=== PATIENT | female | born 1950 | race Caucasian/White ===

== ENCOUNTER 2019-09-13 16:39 | Emergency (ER) | payer OTHER, BC ==
[2019-09-13] MEDS ORDERED: LEVALBUTEROL 1.25 MG/3 ML NEB ONE (18:42)
[2019-09-13 18:43] LABS: Absolute Lymphocytes (CBC) 1.3 K/uL (0.7-4.9); Basophils % 0.8 % (0-1.3); Hematocrit 24.2 % (36.0-45.0); Lymphocytes % 30.8 % (15.3-44.8); MPV 9.6 fL (7.6-11.3)
[2019-09-13 18:44] LABS: Protime INR 1.19
--- NOTE | 2019-09-13 18:48 | RAD REPORT ---
EXAM DESCRIPTION: RAD - Chest Single View - 09/13/2019 6:43 pm CLINICAL HISTORY: COUGH Chest pain. COMPARISON: Chest Pa And Lat (2 Views) dated 10/15/2018; CHEST SINGLE VIEW dated 08/15/2010 FINDINGS: Portable technique limits examination quality. The lungs are grossly clear. The heart is normal in size. No displaced fractures. IMPRESSION: No acute intrathoracic process suspected.
[2019-09-13 18:59] LABS: ALT/SGPT 22 U/L (12-78); AST/SGOT 31 U/L (15-37); Albumin 2.9 g/dL (3.4-5.0); Alkaline Phosphatase 94 U/L (45-117); BUN Blood Urea Nitrogen 20 mg/dL (7-18); Bicarbonate 25 mmol/L (21-32); Bilirubin Direct 0.2 mg/dL (0-0.2); Bilirubin Total 0.6 mg/dL (0.2-1.0); Glucose Level 256 mg/dL (74-106); Magnesium 1.7 mg/dL (1.8-2.4); NT PRO-BNP 260 pg/mL (<125); Potassium 3.8 mmol/L (3.5-5.1); Protein, Total 6.9 g/dL (6.4-8.2); Sodium Level 138 mmol/L (136-145); Troponin (Emerg Dept Use Only) < 0.02 ng/mL (0.0-0.045)
[2019-09-13 19:13] LABS: Blood Morphology Comment NOTED (NOT SEEN); Hypochromasia 2+; Platelet Estimate DECR; Platelets, Giant PRESENT; Urine White Blood Cell Casts OK
--- NOTE | 2019-09-13 19:29 | RAD REPORT ---
EXAM DESCRIPTION: US - Extrem Venous W Compress Jez - 09/13/2019 7:18 pm CLINICAL HISTORY: bilateral leg swelling and pain Bilateral leg edema and swelling. COMPARISON: No comparisons TECHNIQUE: Real-time sonographic interrogation of the left and right lower extremity deep venous sys tems was performed. FINDINGS: Normal compressibility, flow augmentation, phasic flow and spontaneous flow is identified in both the left and right lower extremity deep venous systems. IMPRESSION: No sonographic evidence of left or right lower extremity deep venous thrombosis.
--- NOTE | 2019-09-13 20:09 | RAD REPORT ---
EXAM DESCRIPTION: CT - Chest For Pe Angio - 09/13/2019 8:00 pm CLINICAL HISTORY: Chest pain. SOB COMPARISON: No comparisons TECHNIQUE: CT angiogram of the pulmonary arteries was performed with MIP. All CT scans are performed using dose optimization technique as appropriate and may include automated exposure control or mA/KV adjustment according to patient size. FINDINGS: No evidence of pulmonary thromboembolism. No acute aortic finding demonstrated. Mild dependent interstitial pulmonary edema. Small bilateral pleural effusions. No concerning bony finding. Liver cirrhosis and mild ascites in the upper abdomen noted. IMPRESSION: No evidence of pulmonary thromboembolism. Minimal dependent pulmonary edema with small pleural effusions.
--- NOTE | 2019-09-13 20:27 | RAD REPORT ---
EXAM DESCRIPTION: CT - Abdomen Pelvis Wo Contrast - 09/13/2019 8:14 pm CLINICAL HISTORY: Abdominal pain. ABD PAIN COMPARISON: No comparisons TECHNIQUE: CT imaging of the abdomen and pelvis was performed without contrast. Solid organ, bowel a nd vascular assessment is limited due to lack of IV and oral contrast. All CT scans are performed using dose optimization technique as appropriate and may include automated exposure control or mA/KV adjustment according to patient size. FINDINGS: Small bilateral pleural effusions is seen. Mild liver cirrhosis is present with mild splenomegaly. Portal venous hypertension is seen. Mild asci baron noted.No bowel obstruction or free air. The spleen is mildly prominent. The pancreas, adrenal glands and kidneys are within normal limits. T he appendix is normal. Lumbosacral degenerative changes are present. IMPRESSION: Liver cirrhosis is present with portal hypertension and mild ascites. A limited non-contrast examination was performed as detailed.
--- NOTE | 2019-09-13 21:14 | ER ---
Nurse's Notes [facility] Name: Rena Burch Age: 68 yrs Sex: Female : 1950 Arrival Date: 09/13/2019 Time: 16:43 Bed 27 Private MD: Diagnosis: shortness of breath;cough;cirrhosis with portal venous hypertension;pulmonary edema;lower extremity edema;bilateral pleural effusions Presentation: 09/13 16:43 Presenting complaint: Patient states: abd pain, BLE swelling, productive cough, dyspnea sv x a week. Transition of care: patient was not received from another setting of care. Onset of symptoms was August 2019. Risk Assessment: Do you want to hurt yourself or someone else? Patient reports no desire to harm self or others. Care prior to arrival: None. 16:43 Method Of Arrival: Wheelchair sv 16:43 Acuity: CHEIKH 3 sv 17:00 Initial Sepsis Screen: Does the patient meet any 2 criteria? No. Patient's initial tr5 sepsis screen is negative. Does the patient have a suspected source of infection? No. Patient's initial sepsis screen is negative. Triage Assessment: 16:43 General: Appears in no apparent distress. uncomfortable, Behavior is calm, cooperative, sv appropriate for age. Pain: Complains of pain in abdomen. Neuro: Level of Consciousness is awake, alert, obeys commands. Respiratory: Respiratory effort is even, unlabored, Respiratory pattern is regular, symmetrical, Onset: The symptoms/episode began/occurred at an unknown time. 17:00 Respiratory: the patient has mild shortness of breath. tr5 Historical: - Allergies: 16:47 No Known Allergies; sv - Home Meds: 22:14 metoprolol ta-hydrochlorothiaz 100-50 mg oral tab [Active]; amlodipine 5 mg tab tr5 [Active]; omeprazole 40 mg Oral cpDR [Active]; montelukast 10 mg oral tab [Active]; lisinopril 20 mg Oral tab [Active]; hydrochlorothiazide 12.5 mg Oral tab [Active]; Janumet 50-500 mg oral tab [Active]; Insulin: Novolin R Sub-Q [Active]; cosentyx [Active]; - PMHx: 16:47 Diabetes - IDDM; Hypertension; Psoriatic arthritis; COPD; sv - PSHx: 16:47 double mastectomy; right wrist; right ankle; Hysterectomy; sv - Immunization history:: Flu vaccine is not up to date. - Social history:: Smoking status: Patient/guardian denies using tobacco. - Ebola Screening: : No symptoms or risks identified at this time. - Family history:: not pertinent. - Hospitalizations: : No recent hospitalization is reported. Screenin:30 Abuse screen: Denies threats or abuse. Nutritional screening: No deficits noted. tr5 Tuberculosis screening: No symptoms or risk factors identified. Fall Risk None identified. Assessment: 18:30 General: Appears in no apparent distress. Behavior is calm, cooperative, appropriate tr5 for age. Pain: Denies pain. Neuro: Level of Consciousness is awake, alert, obeys commands, Oriented to person, place, time, Fumigator And Sterilizer are equal bilaterally Moves all extremities. Cardiovascular: Heart tones present Capillary refill < 3 seconds Pulses are all present. Edema pitting to left ankle, left foot, left toes, right ankle, right foot and right toes Ascites Rhythm is regular. Respiratory: Reports shortness of breath cough that is Airway is patent Respiratory effort is even, unlabored, Respiratory pattern is regular, symmetrical, Breath sounds are diminished bilaterally. GI: Abdomen is noted to have ascites. : No signs and/or symptoms were reported regarding the genitourinary system. EENT: No signs and/or symptoms were reported regarding the EENT system. Derm: No signs and/or symptoms reported regarding the dermatologic system. Musculoskeletal: No signs and/or symptoms reported regarding the musculoskeletal system. 19:01 Reassessment: Dr. jaffe notified of critical lab value, Hgb 7.3. ss 20:00 Reassessment: Patient appears in no apparent distress at this time. Patient and/or tr5 family updated on plan of care and expected duration. Pain level reassessed. Patient is alert, oriented x 3, equal unlabored respirations, skin warm/dry/pink. Vital Signs: 16:47 BP 142 / 50; Pulse 70; Resp 20; Temp 98.4; Pulse Ox 99% ; Weight 95.25 kg; Height 5 ft. sv 5 in. (165.10 cm); 18:30 BP 162 / 54; Pulse 79; Resp 16; Pulse Ox 100% on R/A; tr5 19:30 BP 174 / 69; Pulse 87; Resp 16; Pulse Ox 99% on R/A; tr5 20:30 BP 181 / 65; Pulse 88; Resp 16; Pulse Ox 100% on R/A; tr5 16:47 Body Mass Index 34.95 (95.25 kg, 165.10 cm) sv ED Course: 16:43 Patient arrived in ED. sv 16:43 Arm band placed on. sv 16:46 Triage completed. sv 17:50 Inserted saline lock: 20 gauge in left antecubital area, using aseptic technique. Blood jp3 collected. Patient maintains SpO2 saturation greater than 95% on room air. 17:50 Initial lab(s) drawn, by me, held in ED. Flu and/or RSV swab sent to lab. jp3 18:01 Kali Jaffe MD is Attending Physician. wa 18:01 Placed in gown. Bed in low position. Call light in reach. Side rails up X 1. Side rails jp3 up X2. Warm blanket given. Verbal reassurance given. Pulse ox on. NIBP on. 18:18 Pablo Balbuena, RN is Primary Nurse. tr5 18:43 XRAY Chest (1 view) In Process Unspecified. EDMS 19:19 Extrem Venous W Compression Jez US In Process Unspecified. EDMS 19:[address] via stretcher. nj 20:00 CT Chest For PE Angio In Process Unspecified. EDMS 20:06 Abdomen In Process Unspecified. EDMS 21:15 transfer. tr5 21:30 Urine collected: clean catch specimen, clear, sarah colored. jp3 21:38 Urine Microscopic Only Sent. jp3 23:48 No provider procedures requiring assistance completed. Patient transferred, IV remains tr5 in place. Administered Medications: 18:44 Drug: Xopenex 1.25 mg Route: Inhalation; tr5 22:10 Drug: Rocephin - (cefTRIAXone) 1 grams Route: IVPB; Infused Over: 30 mins; Site: left tr5 antecubital; 09/14 00:56 Follow up: IV Status: Completed infusion; IV Intake: 50ml tr5 Outcome: 09/13 21:14 ER care complete, transfer ordered by . wa 23:48 Transferred by ground EMS to [facility], Transfer form completed. tr5 23:49 Condition: stable tr5 23:49 Instructed on discharge instructions, the need for transfer. 23:51 Patient left the ED. tr5 Signatures: Dispatcher [employer] Lise Escalante RN RN Malka Govea RN RN Payam Jerez William, MD MD wa Pisarski, Jacob jp3 Rodriguez, Tommie, RN RN tr5 Corrections: (The following items were deleted from the chart) 19:02 19:01 Reassessment: Dr. jaffe notified of critical lab value, Hgb 7.5 ss
--- NOTE | 2019-09-13 21:15 | EDPHYS ---
Physician Documentation [facility] Name: Rena Burch Age: 68 yrs Sex: Female : 1950 Arrival Date: 09/13/2019 Time: 16:43 Bed 27 Private MD: ED Physician Kali Souza HPI: 09/13 19:51 This 68 yrs old Female presents to ER via Wheelchair with complaints of wa Breathing Difficulty, Leg Swelling, Abdominal Swelling. 19:51 The patient has shortness of breath at rest, when lays flat.. Onset: The wa symptoms/episode began/occurred 1 week(s) ago. Duration: The symptoms are continuous, and are steadily getting worse. The patient's shortness of breath is aggravated by coughing, supine position, is alleviated by nothing. Associated signs and symptoms: Pertinent positives: bilateral leg swelling, Pertinent negatives: chest pain, dizziness. Severity of symptoms: At their worst the symptoms were moderate in the emergency department the symptoms are worse moderately. The patient has not experienced similar symptoms in the past. The patient has not recently seen a physician. states cough and SOB x 1 week. denies chest pain. symptoms worse with exertion and when lays flat. Historical: - Allergies: 16:47 No Known Allergies; sv - Home Meds: 22:14 metoprolol ta-hydrochlorothiaz 100-50 mg oral tab [Active]; amlodipine 5 mg tab tr5 [Active]; omeprazole 40 mg Oral cpDR [Active]; montelukast 10 mg oral tab [Active]; lisinopril 20 mg Oral tab [Active]; hydrochlorothiazide 12.5 mg Oral tab [Active]; Janumet 50-500 mg oral tab [Active]; Insulin: Novolin R Sub-Q [Active]; cosentyx [Active]; - PMHx: 16:47 Diabetes - IDDM; Hypertension; Psoriatic arthritis; COPD; sv - PSHx: 16:47 double mastectomy; right wrist; right ankle; Hysterectomy; sv - Immunization history:: Flu vaccine is not up to date. - Social history:: Smoking status: Patient/guardian denies using tobacco. - Ebola Screening: : No symptoms or risks identified at this time. - Family history:: not pertinent. - Hospitalizations: : No recent hospitalization is reported. ROS: 19:56 Constitutional: Negative for fever, chills, and weight loss, Eyes: Negative for injury, wa pain, redness, and discharge, ENT: Negative for injury, pain, and discharge, Neck: Negative for injury, pain, and swelling, Back: Negative for injury and pain, : Negative for injury, bleeding, discharge, and swelling, Skin: Negative for injury, rash, and discoloration, Neuro: Negative for headache, weakness, numbness, tingling, and seizure, Psych: Negative for depression, anxiety, suicide ideation, homicidal ideation, and hallucinations. 19:56 Cardiovascular: Positive for edema, orthopnea, Negative for chest pain. 19:56 Respiratory: Positive for cough, shortness of breath, on exertion. 19:56 Abdomen/GI: Positive for abdominal pain, Negative for vomiting, diarrhea. 19:56 MS/extremity: Positive for swelling, of the bilateral lower legs. 19:56 All other systems are negative. Exam: 19:58 Constitutional: This is a well developed, well nourished patient who is awake, alert, wa and in no acute distress. Head/Face: Normocephalic, atraumatic. Eyes: Pupils equal round and reactive to light, extra-ocular motions intact. Lids and lashes normal. Conjunctiva and sclera are non-icteric and not injected. Cornea within normal limits. Periorbital areas with no swelling, redness, or edema. ENT: Nares patent. No nasal discharge, no septal abnormalities noted. Tympanic membranes are normal and external auditory canals are clear. Oropharynx with no redness, swelling, or masses, exudates, or evidence of obstruction, uvula midline. Mucous membranes moist. Neck: Trachea midline, no thyromegaly or masses palpated, and no cervical lymphadenopathy. Supple, full range of motion without nuchal rigidity, or vertebral point tenderness. No Meningismus. Chest/axilla: Normal chest wall appearance and motion. Nontender with no deformity. No lesions are appreciated. Back: No spinal tenderness. No costovertebral tenderness. Full range of motion. Skin: Warm, dry with normal turgor. Normal color with no rashes, no lesions, and no evidence of cellulitis. Neuro: Awake and alert, GCS 15, oriented to person, place, time, and situation. Cranial nerves II-XII grossly intact. Motor strength 5/5 in all extremities. Sensory grossly intact. Cerebellar exam normal. Normal gait. Psych: Awake, alert, with orientation to person, place and time. Behavior, mood, and affect are within normal limits. 19:58 Cardiovascular: Rate: normal, Rhythm: regular, Pulses: no pulse deficits are appreciated, Heart sounds: murmur, systolic, Edema: 2+ edema to level of left midcalf, left ankle, left foot, left toes, right midcalf, right ankle, right foot and right toes. 19:58 Respiratory: the patient does not display signs of respiratory distress, Respirations: normal, Breath sounds: decreased breath sounds, that are mild, are scattered. 19:58 Abdomen/GI: Inspection: abdomen appears normal, Bowel sounds: normal, Palpation: abdomen is soft and non-tender, in all quadrants. Vital Signs: 16:47 BP 142 / 50; Pulse 70; Resp 20; Temp 98.4; Pulse Ox 99% ; Weight 95.25 kg; Height 5 ft. sv 5 in. (165.10 cm); 18:30 BP 162 / 54; Pulse 79; Resp 16; Pulse Ox 100% on R/A; tr5 19:30 BP 174 / 69; Pulse 87; Resp 16; Pulse Ox 99% on R/A; tr5 20:30 BP 181 / 65; Pulse 88; Resp 16; Pulse Ox 100% on R/A; tr5 16:47 Body Mass Index 34.95 (95.25 kg, 165.10 cm) sv MDM: 18:01 Patient medically screened. mo 19:59 Differential diagnosis: Anemia Bronchitis CHF exacerbation, Chronic Obstructive wa Pulmonary Disease Myocardial Infarction pneumonia, pulmonary edema, Pulmonary Embolism reactive airway disease, Unstable Angina. 20:58 Data reviewed: vital signs, nurses notes, lab test result(s), EKG, radiologic studies. mo Test interpretation: by ED physician or midlevel provider: EKG: interp by sd. HR 82. sinus., nml axis. no zonal ischemic changes. 21:04 Test interpretation: by ED physician or midlevel provider: hyperglycemia at 256. BNP wa 260. wbc 4.1. anemia at 7.3 and 24.2. plt 73. d-dimer 3683. CT chest/abd/pelvis: no PE. mild interstitial pulm edema. mild ascites. small bilateral pleural effusions. mild liver cirrhosis with mild splenomegaly. portal venous HTN. Response to treatment: the patient's symptoms have mildly improved after treatment. 21:08 Test interpretation: by ED physician or midlevel provider: doppler bilateral LE: no DVT.mo 21:09 ED course: pt tells me has been told has non-alcoholic fatty liver disease int he past. mo denies h/o hepatitis. . 21:09 Special discussion: spoke with on-call hospitalist Dr. Mayberry. advised transfer as no wa GI conductor and engineer fo see pt. will effect transfer. 21:47 Test interpretation: by ED physician or midlevel provider: UA noted positive nitrite. mo 21:47 Physician consultation: accepted at [facility] for further eval.. mo 09/13 18:10 Order name: Glucose, Ancillary Testing; Complete Time: 19:43 EDMS 09/13 18:16 Order name: Basic Metabolic Panel; Complete Time: 19:43 mo 09/13 18:16 Order name: CBC with Diff; Complete Time: 19:43 mo 09/13 18:16 Order name: LFT's; Complete Time: 19:44 mo 09/13 18:16 Order name: Magnesium; Complete Time: 19:44 mo 09/13 18:16 Order name: NT PRO-BNP; Complete Time: 19:44 09/13 18:16 Order name: PT-INR; Complete Time: 19:44 mo 09/13 18:16 Order name: Troponin (emerg Dept Use Only); Complete Time: 19:44 mo 09/13 18:17 Order name: Flu; Complete Time: 19:45 mo 09/13 18:17 Order name: Urine Microscopic Only 09/13 18:18 Order name: D-Dimer; Complete Time: 19:44 mo 09/13 19:13 Order name: CBC Smear Scan; Complete Time: 19:43 EDMS 09/13 21:42 Order name: Urine Dipstick--Ancillary (enter results) [facility] 09/13 18:16 Order name: XRAY Chest (1 view); Complete Time: 19:44 09/13 18:16 Order name: EKG; Complete Time: 18:17 mo 09/13 18:16 Order name: Cardiac monitoring; Complete Time: 18:45 09/13 18:16 Order name: EKG - Nurse/Tech; Complete Time: 19:41 09/13 18:16 Order name: IV Saline Lock; Complete Time: 18:45 mo 09/13 18:16 Order name: Labs collected and sent; Complete Time: 18:45 mo 09/13 18:16 Order name: O2 Per Protocol; Complete Time: 18:45 mo 09/13 18:16 Order name: O2 Sat Monitoring; Complete Time: 18:45 mo 09/13 18:17 Order name: Urine Dipstick-Ancillary (obtain specimen); Complete Time: 21:38 mo 09/13 18:18 Order name: Extrem Venous W Compression Jez US; Complete Time: 19:45 mo 09/13 19:47 Order name: CT Chest For PE Angio; Complete Time: 20:33 mo 09/13 20:04 Order name: Abdomen ; Complete Time: 20:31 [facility] 09/13 21:42 Order name: Urine Culture mw2 Administered Medications: 18:44 Drug: Xopenex 1.25 mg Route: Inhalation; tr5 22:10 Drug: Rocephin - (cefTRIAXone) 1 grams Route: IVPB; Infused Over: 30 mins; Site: left tr5 antecubital; 09/14 00:56 Follow up: IV Status: Completed infusion; IV Intake: 50ml tr5 Disposition: 09/13/19 21:14 Transfer ordered to [facility]. Diagnosis are shortness of breath, cough, cirrhosis with portal venous hypertension, pulmonary edema, lower extremity edema, bilateral pleural effusions. - Reason for transfer: Higher level of care. - Accepting physician is on-call GI and Hospitalist - [facility]. - Condition is Stable. - Problem is new. - Symptoms have improved. Signatures: Dispatcher [employer] EDLA Lise Uribe, RN RN Kali Souza MD MD wa Rodriguez, Tommie RN RN tr5 Corrections: (The following items were deleted from the chart) 09/13 18:51 18:18 Extrem Venous W Compression Jez+US.RAD.BRZ ordered. EDLA EDMS 20:04 20:02 Abdomen Pelvis W Con+CT.RAD.BRZ ordered. EDLA EDMS 22:14 21:14 09/13/2019 21:14 Transfer ordered to [facility]. Diagnosis is wa shortness of breath; cough; cirrhosis with portal venous hypertension; pulmonary edema; lower extremity edema; bilateral pleural effusions. Reason for transfer: Higher level of care. Accepting physician is [facility]. Condition is Stable. Problem is new. Symptoms have improved. mo 23:51 22:14 09/13/2019 21:14 Transfer ordered to [facility]. Diagnosis is tr5 shortness of breath; cough; cirrhosis with portal venous hypertension; pulmonary edema; lower extremity edema; bilateral pleural effusions. Reason for transfer: Higher level of care. Accepting physician is on-call GI and Hospitalist - [facility]. Condition is Stable. Problem is new. Symptoms have improved. mo
[2019-09-13 21:58] LABS: Urine Amorphous Sediment TRACE /HPF (NONE SEEN); Urine Bacteria <20 /HPF (<20); Urine Culture Reflex Order NOT NEEDED; Urine RBC NONE SEEN /HPF (NONE SEEN)
[2019-09-13] MEDS ORDERED: CEFTRIAXONE/SWI 1gm 1 GM/10 ML SYR ONE (22:01)
[2019-09-13 22:12] LABS: Urine Blood NEGATIVE (NEG); Urine Glucose NEGATIVE (NEG); Urine Protein NEGATIVE (NEG)
[2019-09-13 23:58] VITALS: TEMP 98.4
[2019-09-14 02:05] VITALS: BP 181/65; O2SAT 100
--- NOTE | 2019-09-14 09:14 | EKG ---
Test Date: 2019-09-13 Test Time: 19:30:01 Loom Changer: TR MEASUREMENT RESULTS: Intervals: Rate: 82 SD: 132 QRSD: 86 QT: 418 QTc: 488 [place]: P: 70 SD: 132 QRS: 59 T: 78 INTERPRETIVE STATEMENTS: Normal sinus rhythm Normal ECG Compared to ECG 08/16/2010 11:56:03 No significant changes Electronically Signed On 09-14-19 09:13:26 CDT by Julian Mann
== END 2019-09-13 23:51 | disposition short-term general hospital (02) ==
LOC: ER 16:39
DX: R05 Cough (principal); J81.1 Chronic pulmonary edema; K74.69 Other cirrhosis of liver; J90 Pleural effusion, not elsewhere classified; E11.9 Type 2 diabetes mellitus without complications; I10 Essential (primary) hypertension; J44.9 Chronic obstructive pulmonary disease, unspecified; Z79.4 Long term (current) use of insulin; Z90.13 Acquired absence of bilateral breasts and nipples
CPT/HCPCS: 93005; 87088; 85025; 87086; 80048; 36415; 83735; 85610; 82947; 85379; 80076; 84484; 83880; 87804 ×2; 71275; 74176; 71045; 93970; Q9967; J0696; 81003; 81015; 96365; 96366; 99285

== ENCOUNTER 2020-06-28 23:14 | Emergency (ER) | payer OTHER, BC ==
--- OUTSIDE RECORDS SUMMARY | 2020-06-28 23:17 | XMS REPORT | Clinical Summary ---
:1950 Author Organization [facility] Address [address] [place] [address] Care Team Providers Name Role Phone Pcp, No Primary Care Provider Unavailable Allergies No Known Allergies Medications Medication Sig Dispensed Refills Start End Status Date Date SITagliptin-metFORMIN Take 1 tablet by 0 Active (JANUMET) 50-1,000 mg mouth daily. per tablet montelukast Take 10 mg by 0 Acti ve (SINGULAIR) 10 mg mouth nightly. tablet lisinopril Take 20 mg by 0 Activ e (PRINIVIL,ZESTRIL) 20 mouth daily. MG tablet metoprolol (LOPRESSOR) Take 100 mg by 0 Active 100 MG tablet mouth 2 (two) times daily. amLODIPine (NORVASC) 5 Take 5 mg by 0 Active MG tablet mouth daily. hydroCHLOROthiazide Take 12.5 mg by 0 Active (MICROZIDE) 12.5 mg mouth daily. capsule omeprazole (PRILOSEC) Take 40 mg by 0 Active 40 MG capsule mouth daily. brimonidine (ALPHAGAN) Place 1 drop into 0 Active 0.15 % ophthalmic both eyes 2 (two) solution times daily. insulin degludec 100 Inject 30 Units 0 Active unit/mL (3 mL) InPn subcutaneously daily. latanoprost (XALATAN) Place 1 drop into 0 Active 0.005 % ophthalmic both eyes solution nightly. albuterol HFA Inhale 2 puffs by 1 Inhaler 0 09/20/20 Active (VENTOLIN HFA) 90 mouth via inhaler 19 mcg/actuation inhaler every 4 (four) hours as needed for Wheezing or Shortness of Breath. furosemide (LASIX) 40 Take 1 tablet (40 30 tablet 11 09/21/20 Active MG tablet mg total) by 19 020 mouth daily. ferrous sulfate 325 Take 1 tablet 90 tablet 11 09/20/20 Active (65 FE) MG tablet (325 mg total) by 19 020 mouth 3 (three) times daily. budesonide (PULMICORT) Take 2 mLs (0.5 360 mL 3 09/20/20 1 Active 0.5 mg/2 mL nebulizer mg total) by 19 020 solution nebulization 2 (two) times daily. albuterol HFA Inhale 2 puffs by 0 Discontinued (VENTOLIN HFA) 90 mouth via inhaler 019 mcg/actuation inhaler every 4 (four) hours as needed for Wheezing or Shortness of Breath. budesonide (PULMICORT) Take 2 mLs (0.5 60 mL 0 09/20/20 1 Discontinued 0.5 mg/2 mL nebulizer mg total) by 019 solution nebulization 2 (two) times daily. dextromethorphan-guaif Take 5 mLs by 118 mL 0 09/20/2031/12 enesin (ROBITUSSIN-DM) mouth every 4 019 10-100 mg/5 mL liquid (four) hours as needed for up to 10 days. predniSONE (DELTASONE) Take 2 tablets 6 tablet 0 09/20/20 20 MG tablet (40 mg total) by 19 019 mouth daily for 3 days. predniSONE (DELTASONE) Take 3 tablets 9 tablet 0 09/24/20 10 MG tablet (30 mg total) by 19 019 mouth daily for 3 days. predniSONE (DELTASONE) Take 1 tablet (20 3 tablet 0 09/28/20 20 MG tablet mg total) by 19 019 mouth daily for 3 days. predniSONE (DELTASONE) Take 1 tablet (10 3 tablet 0 10/02/20 10 MG tablet mg total) by 19 019 mouth daily for 3 days. Active Problems Problem Noted Date COPD (chronic obstructive pulmonary disease) 9 Cirrhosis of liver with ascites 09/14/2019 Encounters Date Type Specialty Care Team Description 09/15/2019 Anesthesia Event Gastroenterology Maya Galeana CRNA 09/15/2019 Surgery Gastroenterology Rani, UPPER ENDOS COPY Pete Sears MD 09/14/2019 Hospital General Internal [facility] Cirrhosis o f liver with ascites, unspecified hepatic cirrhosis type (HCC) (Primary Dx); - Encounter Medicine , Margret Nieto; 09/20/2019 Epistaxis; Kelton, Portal hyperten mary (HCC); MD Karan Class 2 severe obesity with body mass in dex (BMI) of 35 to 39.9 with serious comorbidity (HCC); Gadicherla, Dyspnea on exer tion; Stella Chronic obstruc tive pulmonary disease with acute exacerbation (HCC); Bernadine, Hepatopulmonary syndrome (HCC) 09/14/2019 Orders Only General Internal Medicine 09/14/2019 Travel after 06/28/2019 Social History Tobacco Use Types Packs/Day Years Used Date Never Smoker Alcohol Use Drinks/Week oz/Week Comments No Alcohol Habits Answer Date Recorded How often do you have a drink containing alcohol? Never 09/14/2019 How many drinks containing alcohol do you have on a typical Not asked day when you are drinking? How often do you have six or more drinks on one occasion? No t asked Sex Assigned at Date Recorded Not on file Job Start Date Occupation Industry Not on file Not on file Not on file Travel History Travel Start Travel End No recent travel history available. Last Filed Vital Signs Vital Sign Reading Time Taken Blood Pressure 145/65 09/20/2019 2:00 PM HEALTH SERVICES COORDINATOR Pulse 70 09/20/2019 2:00 PM HEALTH SERVICES COORDINATOR Temperature 36.8 C (98.2 F) 09/20/2019 12:15 PM HEALTH SERVICES COORDINATOR Respiratory Rate 18 09/20/2019 2:00 PM HEALTH SERVICES COORDINATOR Oxygen Saturation 100% 09/20/2019 2:00 PM HEALTH SERVICES COORDINATOR Inhaled Oxygen Concentration 21% 09/20/2019 9:31 AM HEALTH SERVICES COORDINATOR Weight 94.8 kg (209 lb) 09/15/2019 9:00 AM CDT Height 165.1 cm (5' 5") 09/14/2019 1:00 AM CDT Body Mass Index 34.78 09/15/2019 9:00 AM CDT Plan of Treatment Not on file Procedures Procedure Name Priority Date/Time Associated Comments Diagnosis RHYTHM STRIP - SCAN 09/27/2019 3:21 PM HEALTH SERVICES COORDINATOR RHYTHM STRIP - SCAN 09/22/2019 8:32 AM HEALTH SERVICES COORDINATOR REPORT OF PROCEDURE - 09/22/2019 8:32 ENDOSCOPY SCAN AM HEALTH SERVICES COORDINATOR RHYTHM STRIP - SCAN 09/22/2019 8:32 AM HEALTH SERVICES COORDINATOR PULMONARY FUNCTION - 09/22/2019 8:10 SCAN AM HEALTH SERVICES COORDINATOR POCT-GLUCOSE METER Routine 09/20/2019 12:51 Resul ts for this PM HEALTH SERVICES COORDINATOR procedure are i n the results section. POCT-GLUCOSE METER Routine 09/20/2019 8:41 Resul ts for this AM HEALTH SERVICES COORDINATOR procedure are i n the results section. POCT-GLUCOSE METER Routine 09/19/2019 9:27 Resul ts for this PM HEALTH SERVICES COORDINATOR procedure are i n the results section. POCT-GLUCOSE METER Routine 09/19/2019 5:36 Resul ts for this PM HEALTH SERVICES COORDINATOR procedure are i n the results section. POCT-GLUCOSE METER Routine 09/19/2019 1:10 Resul ts for this PM HEALTH SERVICES COORDINATOR procedure are i n the results section. POCT-GLUCOSE METER Routine 09/19/2019 8:10 Resul ts for this AM HEALTH SERVICES COORDINATOR procedure are i n the results section. POCT-GLUCOSE METER Routine 09/18/2019 11:42 Resul ts for this PM HEALTH SERVICES COORDINATOR procedure are i n the results section. RESPIRATORY PANEL [facility] Routine 09/18/2019 10:32 R esults for this PM HEALTH SERVICES COORDINATOR procedure are i n the results section. POCT-GLUCOSE METER Routine 09/18/2019 6:20 Resul ts for this PM HEALTH SERVICES COORDINATOR procedure are i n the results section. POCT-GLUCOSE METER Routine 09/18/2019 2:22 Resul ts for this PM HEALTH SERVICES COORDINATOR procedure are i n the results section. CBC W/PLT COUNT & AUTO Routine 09/18/2019 8:54 R esults for this DIFFERENTIAL AM HEALTH SERVICES COORDINATOR procedure are i n the results section. CBC W/PLT COUNT & AUTO Routine 09/18/2019 8:54 R esults for this DIFFERENTIAL AM HEALTH SERVICES COORDINATOR procedure are i n the results section. POCT-GLUCOSE METER Routine 09/18/2019 7:41 Resul ts for this AM HEALTH SERVICES COORDINATOR procedure are i n the results section. POCT-GLUCOSE METER Routine 09/18/2019 12:22 Resul ts for this AM CDT procedure are i n the results section. POCT-GLUCOSE METER Routine 09/17/2019 6:32 Resul ts for this PM CDT procedure are i n the results section. TRANSFUSION SERVICE 09/17/2019 6:02 REPORT - SCAN PM CDT BLOOD GAS, ARTERIAL Routine 09/17/2019 3:15 Resu lts for this PM CDT procedure are i n the results section. POCT-GLUCOSE METER Routine 09/17/2019 10:44 Resul ts for this AM CDT procedure are i n the results section. POCT-GLUCOSE METER Routine 09/17/2019 7:33 Resul ts for this AM CDT procedure are i n the results section. BILIRUBIN, DIRECT Routine 09/17/2019 5:26 Result s for this AM CDT procedure are i n the results section. PREPARE LEUKO-REDUCED LOPEZ 09/16/2019 11:54 Re sults for this RBC PM CDT procedure are i n the results section. POCT-GLUCOSE METER Routine 09/16/2019 11:12 Resul ts for this PM CDT procedure are i n the results section. TRANSFUSION SERVICE 09/16/2019 6:02 REPORT - SCAN PM CDT POCT-GLUCOSE METER Routine 09/16/2019 5:54 Resul ts for this PM CDT procedure are i n the results section. POCT-GLUCOSE METER Routine 09/16/2019 12:49 Resul ts for this PM CDT procedure are i n the results section. 6 MINUTE WALK(FOR LUNG Routine 09/16/2019 11:02 R esults for this TRANSPLANT ONLY) AM CDT procedure a re in the results section. POCT-GLUCOSE METER Routine 09/16/2019 10:20 Resul ts for this AM CDT procedure are i n the results section. CT ABDOMEN WITH & LOPEZ 09/16/2019 8:59 Result s for this WITHOUT IV CONTRAST AM CDT procedur e are in the results section. POCT-GLUCOSE METER Routine 09/16/2019 6:46 Resul ts for this AM CDT procedure are i n the results section. CBC W/PLT COUNT & AUTO Routine 09/16/2019 6:39 R esults for this DIFFERENTIAL AM CDT procedure are i n the results section. CBC W/PLT COUNT & AUTO Routine 09/16/2019 6:39 R esults for this DIFFERENTIAL AM CDT procedure are i n the results section. PROTHROMBIN TIME/INR Routine 09/16/2019 6:39 Res ults for this AM CDT procedure are i n the results section. HEPATIC FUNCTION PANEL Routine 09/16/2019 6:39 R esults for this AM CDT procedure are i n the results section. BASIC METABOLIC PANEL Routine 09/16/2019 6:39 Re sults for this (7) AM CDT procedure are i n the results section. PREPARE RBC STAT 09/15/2019 11:54 Results for this PM CDT procedure are i n the results section. ECHOCARDIOGRAM REPORT - 09/15/2019 9:21 SCAN PM CDT TRANSFUSE LEUKO-REDUCED LOPEZ 09/15/2019 8:48 RED BLOOD CELLS PM CDT TRANSFUSION SERVICE 09/15/2019 6:00 REPORT - SCAN PM CDT POCT-GLUCOSE METER Routine 09/15/2019 5:20 Resul ts for this PM CDT procedure are i n the results section. POCT-GLUCOSE METER Routine 09/15/2019 2:59 Resul ts for this PM CDT procedure are i n the results section. XR CHEST 1 VIEW LOPEZ 09/15/2019 1:10 Results for this PORTABLE/BEDSIDE PM CDT procedure a re in the results section. LIMITED 2D STAT 09/15/2019 12:36 Results for this ECHOCARDIOGRAM PM CDT procedure are in the results section. POCT-GLUCOSE METER Routine 09/15/2019 11:59 Resul ts for this AM CDT procedure are i n the results section. REPORT OF PROCEDURE - 09/15/2019 10:33 ENDOSCOPY URL AM CDT UPPER ENDOSCOPY 09/15/2019 10:00 Melena AM CDT POCT-GLUCOSE METER Routine 09/15/2019 8:23 Resul ts for this AM CDT procedure are i n the results section. (CELLAVISION MANUAL Routine 09/15/2019 4:27 Resu lts for this DIFF) AM CDT procedure are i n the results section. CBC W/PLT COUNT & AUTO Routine 09/15/2019 4:27 R esults for this DIFFERENTIAL AM CDT procedure are i n the results section. GAMMA GLUTAMYL Routine 09/15/2019 4:27 Results f or this TRANSFERASE (GGT) AM CDT procedure are in the results section. B-TYPE NATRIURETIC Routine 09/15/2019 4:27 Resul ts for this FACTOR (BNP) AM CDT procedure are i n the results section. FERRITIN Routine 09/15/2019 4:27 Results for this AM CDT procedure are i n the results section. IRON, TIBC, % SAT. Routine 09/15/2019 4:27 Resul ts for this (WITHOUT FERRITIN) AM CDT procedure are in the results section. HEMOGLOBIN A1C Routine 09/15/2019 4:27 Results f or this AM CDT procedure are i n the results section. COMPREHENSIVE METABOLIC Routine 09/15/2019 4:27 Results for this PANEL AM CDT procedure are i n the results section. CBC W/PLT COUNT & AUTO Routine 09/15/2019 4:27 R esults for this DIFFERENTIAL AM CDT procedure are i n the results section. HEPATITIS B SURFACE Routine 09/15/2019 4:27 Resu lts for this ANTIBODY AM CDT procedure are i n the results section. HEPATITIS A ANTIBODY, Routine 09/15/2019 4:27 Re sults for this IGG AM CDT procedure are i n the results section. PROTHROMBIN TIME/INR Routine 09/15/2019 4:27 Res ults for this AM CDT procedure are i n the results section. HEPATIC FUNCTION PANEL Routine 09/15/2019 4:27 R esults for this AM CDT procedure are i n the results section. POCT-GLUCOSE METER Routine 09/14/2019 9:31 Resul ts for this PM CDT procedure are i n the results section. ECHOCARDIOGRAM REPORT - 09/14/2019 9:20 SCAN PM CDT POCT-GLUCOSE METER Routine 09/14/2019 7:00 Resul ts for this PM CDT procedure are i n the results section. CREATININE, RANDOM Routine 09/14/2019 6:21 Resul ts for this URINE PM CDT procedure are i n the results section. SODIUM, RANDOM URINE Routine 09/14/2019 6:21 Res ults for this PM CDT procedure are i n the results section. URINALYSIS W/ REFLEX Routine 09/14/2019 6:21 Res ults for this URINE CULTURE PM CDT procedure are in the results section. HEMOGLOBIN AND Routine 09/14/2019 2:35 Results f or this HEMATOCRIT PM CDT procedure are i n the results section. MITOCHONDRIAL AB TITER Routine 09/14/2019 2:34 R esults for this PM CDT procedure are i n the results section. MITOCHONDRIAL AB SCREEN Routine 09/14/2019 2:34 Results for this PM CDT procedure are i n the results section. ANTI-MITOCHONDRIAL AB, Routine 09/14/2019 2:34 REFLEX TO TITER PM CDT [id number], Routine 09/14/2019 2:34 Re sults for this SERUM PM CDT procedure are i n the results section. POCT-GLUCOSE METER Routine 09/14/2019 1:32 Resul ts for this PM CDT procedure are i n the results section. 2D ECHO W/ DOPPLER LOPEZ 09/14/2019 1:18 (CW/PW/COLOR) PM CDT LIMITED 2D Routine 09/14/2019 12:41 Results for this ECHOCARDIOGRAM PM CDT procedure are in the results section. POCT-GLUCOSE METER Routine 09/14/2019 9:02 Resul ts for this AM CDT procedure are i n the results section. TRANSFUSE LEUKO-REDUCED Routine 09/14/2019 8:31 RED BLOOD CELLS AM CDT ECG 12-LEAD Routine 09/14/2019 6:09 AM CDT Procedure Note - Interface, External Ris In - 09/14/2019 12:04 PM CDT Ventricular Rate 89 BPM Atrial Rate 89 BPM P-R Interval 138 ms QRS Duration 86 ms Q-T Interval 406 ms QTC Calculation(Bazett) 493 ms P [place] 51 degrees R [place] 19 degrees T [place] 67 degrees Normal sinus rhythm Prolonged QT Abnormal ECG No previous ECGs available ECG 12-LEAD STAT 09/14/2019 6:09 AM CDT Resu lts for this procedure are i n the results section . ABORH, MANUAL STAT 09/14/2019 3:14 AM CDT Res ults for this procedure are i n the results section . TYPE AND SCREEN, AUTOMATED STAT 09/14/2019 2:46 AM CDT Results for this procedure are i n the results section . CBC W/PLT COUNT & AUTO Routine 09/14/2019 2:38 AM CDT Results for this DIFFERENTIAL procedure are i n the results section . IMMUNOGLOBULIN M (IGM) Add-On 09/14/2019 2:38 AM CDT Results for this procedure are i n the results section . IMMUNOGLOBULIN G (IGG) Add-On 09/14/2019 2:38 AM CDT Results for this procedure are i n the results section . IRON, TIBC, % SAT. (WITHOUT Add-On 09/14/2019 2:38 AM CDT Results for this FERRITIN) procedure are i n the results section . FERRITIN Add-On 09/14/2019 2:38 AM CDT Resu lts for this procedure are i n the results section . B-TYPE NATRIURETIC FACTOR Routine 09/14/2019 2:38 AM CDT Results for this (BNP) procedure are i n the results section . TROPONIN I Routine 09/14/2019 2:38 AM CDT Resu lts for this procedure are i n the results section . HEPATITIS PANEL, ACUTE Routine 09/14/2019 2:38 AM CDT Results for this procedure are i n the results section . CBC W/PLT COUNT & AUTO Routine 09/14/2019 2:38 AM CDT Results for this DIFFERENTIAL procedure are i n the results section . PROTHROMBIN TIME/INR Routine 09/14/2019 2:38 AM CDT Results for this procedure are i n the results section . HEPATIC FUNCTION PANEL Routine 09/14/2019 2:38 AM CDT Results for this procedure are i n the results section . BASIC METABOLIC PANEL (7) Routine 09/14/2019 2:38 AM CDT Results for this procedure are i n the results section . after 06/28/2019 Results RHYTHM STRIP - SCAN (09/27/2019 3:21 PM HEALTH SERVICES COORDINATOR)Only the most recent of3 results within the time period is included. Narrative Performed At This result has an attachment that is no t available. EKG-SCANNED (09/22/2019 8:32 AM HEALTH SERVICES COORDINATOR) Narrative Performed At This result has an attachment that is no t available. PULMONARY FUNCTION - SCAN (09/22/2019 8:10 AM HEALTH SERVICES COORDINATOR) Narrative Performed At This result has an attachment that is no t available. POC-Glucose meter (09/20/2019 12:51 PM HEALTH SERVICES COORDINATOR)Only the most recent of27 results within the time period is included. POC-Glucose Meter 258 (H)Comment: : TESTED 70 - 110 mg/dL [facility] [address], [address]: Cook Boat/Regrind Mill Operator ID = [id number] for Yue Hancock Specimen Blood Performing Organization Address City/State/Zipcode Phone Number [address] [address] CENTER Respiratory Panel [facility] (09/18/2019 10:32 PM HEALTH SERVICES COORDINATOR) Human Metapneumovirus Not detected Not detected, [facility] [employer] [facility] Rhinovirus Not detected Not detected, [facility] [employer] [facility] Influenza A Not detected Not detected, [facility] [employer] [facility] INFLUENZA A (NO SUBTYPE) [facility] Influenza A subtype H1 [facility] Influenza A Subtype H3 [facility] Influenza A Subtype H1-2009 [facility] Influenza B Not detected Not detected, [facility] [employer] [facility] Respiratory Syncytial Virus Not detected Not detected, [facility] [employer] [facility] Parainfluenza Virus 1 Not detected Not detected, [facility] [employer] [facility] Parainfluenza Virus 2 Not detected Not detected, [facility] [employer] [facility] Parainfluenza virus 3 Not detected Not detected, [facility] [employer] [facility] Parainfluenza Virus 4 Not detected Not detected, [facility] [employer] [facility] Adenovirus Not detected Not detected, [facility] [employer] [facility] Coronavirus 229E Not detected Not detected, [facility] [employer] [facility] Coronavirus HKU1 Not detected Not detected, [facility] [employer] [facility] Coronavirus NL63 Not detected Not detected, [facility] [employer] [facility] Coronavirus OC43 Not detected Not detected, [facility] [employer] [facility] Bordetella Pertussis Not detected Not detected, [facility] [employer] [facility] Chlamydophila Pneumoniae Not detected Not detected, [facility] [employer] [facility] Mycoplasma Pneumoniae Not detected Not detected, [facility] [employer] [facility] Specimen Nasopharyngeal Narrative Performed At Other viruses and bacteria not targeted by [facility] this PCR panel cannot be excluded; therefore clinical correlation and follow up of serology, culture results, and other molecular studies is required. The results are not intended to be used as the sole means for clinical diagnosis or patient management decisions. This sample was tested at the [facility] using the [employer] FilmArray Respiratory Panel. It is FDA cleared and has been verified and approved by the [facility] for clinical use on nasopharyngeal swab specimens. The performance of the FilmArray RP has not been established in individuals who received influenza vaccine.Recent administration of a nasal influenza vaccine may cause false positive results for Influenza A and/or Influenza B. Performing Organization Address City/State/Zipcode Phone Number [facility] [address] [place] [address] CENTER CBC with platelet count + automated diff (09/18/2019 8:54 AM HEALTH SERVICES COORDINATOR)Only the most recent of4 resultswithin the time period is included. WBC 5.7 3.5 - 10.5 K/L [facility] RBC 4.23 3.93 - 5.22 M/L [facility] ER Hemoglobin 8.9 (L) 11.2 - 15.7 GM/DL [facility] ER Hematocrit 30.7 (L) 34.1 - 44.9 % [facility] MCV 72.6 (L) 79.4 - 94.[address] [facility] MCH 21.0 (L) 25.6 - 32.[address] [facility] MCHC 29.0 (L) 32.2 - 35.5 GM/DL [facility] ER RDW 20.2 (H) 11.7 - 14.4 % [facility] Platelets 74 (L) 150 - 450 K/CU MM [facility] ER MPV Comment: Unable to [facility] report due to abnormal [facility] Platelet population distribution. nRBC 0 0 - 0 /[address] [facility] % Neutros 58 % [facility] % Lymphs 25 % [facility] % Monos 14 % [facility] % Eos 3 % [facility] % Baso 0 % [facility] # Neutros 3.30 1.56 - 6.13 K/L [facility] # Lymphs 1.40 1.18 - 3.74 K/L [facility] # Monos 0.80 (H) 0.24 - 0.36 K/L [facility] # Eos 0.14 0.04 - 0.36 K/L [facility] # Baso 0.01 0.01 - 0.08 K/L [facility] ER Immature 0 0 - 1 % [facility] Granulocytes-Relative [facility] Specimen Blood Performing Organization Address City/[facility]/Zipcode Phone Number [facility] [address] [place] [address] CENTER TRANSFUSION SERVICE REPORT - SCAN (09/17/2019 6:02 PM CDT)Only the most recent of3 resultswithin the time period is included. Narrative Performed At This result has an attachment that is no t available. Blood gas, arterial (09/17/2019 3:15 PM CDT) pH, Arterial 7.45 7.35 - 7.45 [facility] pCO2, Arterial 35 35 - 45 mmHg [facility] pO2, Arterial 76 (L) 80 - 90 mmHg [facility] O2 Sat, Arterial 95.8 (L) 96.0 - 97.0 % [facility] HCO3, Arterial 24 21 - 29 mmol/L [facility] Base Excess, Arterial 0.0 -2.0 - 3.0 mmol/L [facility] Patient Temperature 37.0 C [facility] FIO2 21.0 % [facility] Specimen Blood, Arterial Narrative Performed At Please obtain the ABG AFTER the patient has [facility] been upright for 15 minutes. Performing Organization Address City/State/Zipcode Phone Number [facility] [address] [place], [place] [address] CENTER Bilirubin, direct (09/17/2019 5:26 AM CDT) Bilirubin, Direct 0.3Comment: Specimen 0.1 - 0.5 mg/dL [facility] slightly hemolyzed [facility] Specimen Blood Performing Organization Address City/[facility] Phone Number [facility] [address] [place] [phone] [place] Prepare Leuko-Red RBC (09/16/2019 11:54 PM CDT) CROSSMATCH COMPATIBLE SAFETRACE TX Unit ABO A Pos SAFETRACE TX UNIT NUMBER [id number] SAFETRACE TX Status TX_TIMEINCHART SAFETRACE TX Blood Bank Product RED BLOOD CELLS SAFETRACE TX PRODUCT CODE [id number] SAFETRACE [place] Specimen Other Performing Organization Address [facility] Phone Number SAFETRACE [place] 6 MINUTE WALK(FOR LUNG TRANSPLANT ONLY) (09/16/2019 11:02 AM CDT) Narrative Performed At Rory Bauer, JASPREET, BOOK SEWER 2018 11:52 AM [facility] PFT CHARTING REPORT Infection Control/Hand Hygiene procedure s followed throughout the encounter with patient: Yes Patient Identification Method: Patient n ольга verified on armband, and Medical record on armband, Is the order complete?: Yes Account ID#: [id number] Patient Name: Rena Sinclair Birthdate: 1950 Age: 68 y.o.Sex: female Admission Date: 09/14/2019 Patient Status: Inpatient Reasons/Symptom for having the Test?: a history/complaint of a dyspnea and the need of pre-op transplan t evaluation Type of study/treatment ordered by physi bravo: 6 minute walk Lab Results Component Value Date HGB 9.5 (L) 09/16/2019 Ranges: Adult Male 13 - 16.8 g/dlA dult Female 12 - 15 g/dl 6 Minute Walk (read only) 09/16/201909/1609/16/2019 BP Pre - 152/61 - Start Time - 11:02 AM - David Perceived Exertion Scale Pre - 4 - Ordering Physician - Kelton - Interval - S 12 Pulse 98 72 81 SpO2 98 98 98 Supplemental O2 Flow Activity - 0 0 Activity - Standing Walking Total Distance (in mts) - - 174 BP Post - - 151/61 Tank Pulled? - - N Tank Carried? - - N End Time - - 11:08 AM David Perceived Exertion Scale Post - - 4 Study Date: 09/16/2019 Study Time: 1102 ASSESSMENT History & Physical Mode of Arrival: Wheel chair Pulse: 72 Resp: 18SPO2: 98 % WA Pain Assessment Pain:None TESTING/THERAPEUTICS Medications ordered or required for pro cedure: N/A PT EDUCATION/INSTRUCTIONS Barriers to learning: No known barriers to learning. Learning need identified: Yes, Patient/ Family/Guradian was informed of the ordered study by the jorge gonsalez Barriers to performing study or treatme nt: Patient has no known disability to perform the study or treat ment. DISCHARGE The study was completed in accordance wi th the physician's order and patient released from the lab withou t adverse outcome. CT abdomen without & with IV contrast (09/16/2019 8:59 AM CDT) Specimen Narrative Performed At FINAL REPORT [employer] TECHNIQUE: CT of the abdomen WITHOUT and WITH intravenous contrast and WITHOUT oral contrast. Dose modulati on, iterative reconstruction, and/or weight-based adjustment of the mA /kV was utilized to reduce the radiation dose to as low as reasonab ly achievable. INDICATION: Cirrhosis or Fatty Liver. COMPARISON: None. FINDINGS: LOWER THORAX: Small bilateral pleural ef fusions with atelectasis. HEPATOBILIARY: The gallbladder is disten ded, possibly due to fasting. No biliary ductal dilatation. Nodular, cirrhotic liver. No focal hepat ic lesions. SPLEEN: 14.2 cm splenomegaly. A cyst in the spleen measures 1 cm. PANCREAS: No focal masses or ductal dila tation. ADRENALS: No adrenal nodules. KIDNEYS/URETERS: No hydronephrosis, ston es, or solid mass lesions. A mildly hyperdense cyst in the right lowe r pole measures 0.9 cm. This is most likely hemorrhagic cyst. Other b ilateral renal hypodensities are too small to accurately characterize and measure up to 0.5 cm. PERITONEUM/RETROPERITONEUM: Moderate vol ume ascites. No free air. LYMPH NODES: No lymphadenopathy. VESSELS: Recanalized periumbilical vein. Prominent portal systemic collateral in the pelvis between the inf erior mesenteric vein and inferior vena cava. GI TRACT: No distention or wall thickeni ng. BONES AND SOFT TISSUES: Bilateral breast prostheses. IMPRESSION: 1.No focal hepatic lesions. 2.Cirrhosis with sequelae of portal hype rtension including a recanalized periumbilical vein, splenome fabio, and moderate volume ascites. 3.Small bilateral pleural effusions. Signed: Stanley Dior MD Report Verified Date/Time:09/16/2019 12:02:29 Reading Location: [facility] B1 C013Y CT Body R eading Room Procedure Note Interface, External Ris In - 09/16/2019 12:04 PM CDT FINAL REPORT TECHNIQUE: CT of the abdomen WITHOUT and WITH intravenous contrast and WITHOUT oral contrast. Dose modulati on, iterative reconstruction, and/or weight-based adjustment of the mA /kV was utilized to reduce the radiation dose to as low as reasonab ly achievable. INDICATION: Cirrhosis or Fatty Liver. COMPARISON: None. FINDINGS: LOWER THORAX: Small bilateral pleural ef fusions with atelectasis. HEPATOBILIARY: The gallbladder is disten ded, possibly due to fasting. No biliary ductal dilatation. Nodular, cirrhotic liver. No focal hepat ic lesions. SPLEEN: 14.2 cm splenomegaly. A cyst in the spleen measures 1 cm. PANCREAS: No focal masses or ductal dila tation. ADRENALS: No adrenal nodules. KIDNEYS/URETERS: No hydronephrosis, ston es, or solid mass lesions. A mildly hyperdense cyst in the right lowe r pole measures 0.9 cm. This is most likely hemorrhagic cyst. Other b ilateral renal hypodensities are too small to accurately characterize and measure up to 0.5 cm. PERITONEUM/RETROPERITONEUM: Moderate vol ume ascites. No free air. LYMPH NODES: No lymphadenopathy. VESSELS: Recanalized periumbilical vein. Prominent portal systemic collateral in the pelvis between the inf erior mesenteric vein and inferior vena cava. GI TRACT: No distention or wall thickeni ng. BONES AND SOFT TISSUES: Bilateral breast prostheses. IMPRESSION: 1.No focal hepatic lesions. 2.Cirrhosis with sequelae of portal hype rtension including a recanalized periumbilical vein, splenome fabio, and moderate volume ascites. 3.Small bilateral pleural effusions. Signed: Stanley Dior MD Report Verified Date/Time: 09/16/2019 1 2:02:29 Reading Location: [facility] B1 C013Y CT Body R eading Room Performing Organization Address City/State/Zipcode Phone Number GE RIS Prothrombin time/INR (09/16/2019 6:39 AM CDT)Only the most recent of3 results within the time period is included. Protime 15.9 (H) 11.9 - 14.2 seconds [facility] INR 1.3 <=5.9 [facility] Specimen Blood Narrative Performed At [facility] 04/13/2019: PT Reference Range [facility] Change New: 11.9-14.2Previous: 11.7-14.7 RECOMMENDED COUMADIN/WARFARIN INR THERAPY RANGES STANDARD DOSE: 2.0-3.0Includes: PROPHYLAXIS for venous thrombosis, systemic embolization; TREATMENT for venous thrombosis and/or pulmonary embolus. HIGH RISK: Target INR is 2.5-3.5 for patients wiht mechanical heart valves. Performing Organization Address City/State/[facility] Services[facility] Phone Number [place] [phone] [place] [address] CENTER Hepatic function panel (09/16/2019 6:39 AM CDT)Only the most recent of3 results within the time period is included. Protein, Total 7.3 6.0 - 8.3 gm/dL [facility] Albumin 3.3 (L) 3.5 - 5.0 g/dL [facility] Total Bilirubin 1.1 0.2 - 1.2 mg/dL [facility] Bilirubin, Direct 0.6 (H) 0.1 - 0.5 mg/dL [facility] Alkaline Phosphatase 91 40 - 150 U/L [facility] AST 48 (H) 5 - 34 U/L [facility] ALT 20 6 - 55 U/L [facility] Specimen Blood Performing Organization Address City/[facility]/Zipcode Phone Number [address] [address] CENTER Basic metabolic panel (09/16/2019 6:39 AM CDT)Only the most recent of2 results within the time period is included. Sodium 135 (L) 136 - 145 meq/L [facility] Potassium 3.7 3.5 - 5.1 meq/L [facility] Chloride 103 98 - 107 meq/L [facility] CO2 25 22 - 29 meq/L [facility] BUN 12 7 - 21 mg/dL [facility] Creatinine 0.80 0.57 - 1.25 mg/dL [facility] Glucose 269 (H) 70 - 105 mg/dL [facility] Calcium 8.6 8.4 - 10.2 mg/dL [facility] EGFR 71Comment: ESTIMATED GFR IS mL/min/1.73 sq m [facility] NOT ACCURATE CREATININE [facility] CENTER CLEARANCE IN PREDICTING GLOMERULAR FILTRATION RATE. ESTIMATED GFR IS NOT APPLICABLE FOR DIALYSIS PATIENTS. Specimen Blood Performing Organization Address [facility] Services[facility] Phone Number [address] [address] CENTER Prepare RBC (09/15/2019 11:54 PM CDT) CROSSMATCH COMPATIBLE SAFETRACE TX Unit ABO A Pos SAFETRACE TX UNIT NUMBER [id number] SAFETRACE TX Status TX_TIMEINCHART SAFETRACE TX Blood Bank Product RED BLOOD CELLS SAFETRACE [place] PRODUCT CODE [id number] SAFETRACE [place] Specimen Performing Organization Address City/[facility]/Zipcode Phone Number SAFETRACE [place] ECHOCARDIOGRAM REPORT - SCAN (09/15/2019 9:21 PM CDT) Narrative Performed At This result has an attachment that is no t available. Transfuse Leuko-Red RBC (09/15/2019 8:48 PM CDT)Only the most recent of4 resultswithin the time period is included.XR chest 1 view portable / bedside (09/15/2019 1:10 PM CDT) Specimen Narrative Performed At FINAL REPORT [employer] INDICATION: SOB COMPARISON: None TECHNIQUE: Single frontal view of the ch est. FINDINGS: Lungs and pleura: Clear lungs. No effusi on. Heart and mediastinum: Normal heart size . Unremarkable mediastinal contours. Osseous structures: No acute abnormality . Other: None. IMPRESSION: No acute intrathoracic abnormality. Signed: Kiki Pereira MD Report Verified Date/Time:09/15/2019 13:32:27 Reading Location: [facility] y Reading Room Procedure Note Interface, External Ris In - 09/15/2019 1:44 PM CDT FINAL REPORT INDICATION: SOB COMPARISON: None TECHNIQUE: Single frontal view of the ch est. FINDINGS: Lungs and pleura: Clear lungs. No effusi on. Heart and mediastinum: Normal heart size . Unremarkable mediastinal contours. Osseous structures: No acute abnormality . Other: None. IMPRESSION: No acute intrathoracic abnormality. Signed: Kiki Pereira MD Report Verified Date/Time: 09/15/2019 1 3:32:27 Reading Location: [employer] y Reading Room Performing Organization Address City/State/Zipcode Phone Number GE [employer] 2D Echocardiogram (09/15/2019 12:36 PM CDT) Ejection Fraction [facility] ECHO HEAR TLAB [facility]OSPITALInfoMotion Sports TechnologiesON [facility] Specimen Narrative Performed At Transthoracic Echocardiography Report (T TE) [facility] ECHO HEARTLAB MKCKESSON CPA Demographics Patient NamePLKenzie KOHLI of Study 09/15/2019 Female Visit [id number] Unknown Room Number 754 Number Date of 1Referring [facility] Physician Age 68 year(s)Commutator Operator Georgiana Vazquez, JOY, RDCS,RVT,RDMS Gear And Spline Grinder Mary Jaramillo, Renny Sloan MD RDCSPhysician Procedure Type of Study TTE procedure:LIMITED 2D ECHOCARDIOGRAM (Routine) Indications:Liver transplant evaluation. Clinical History Cirrhosis, COPD, HTN, DM, Asthma, Obesit y HGB 6.9 HCT 24.7 % Contrast Medium: Bubble Study. Height: 65 inches Weight: 97.52 kg (215 lbs) BSA: 2.04 m^2 BMI: 35.78 kg/m^2 HR: 92 bpm BP: 154/67 mmHg Summary IV saline contrast injection was negative for a PFO (patent foramen ovale) at rest and post Valsalva. IV saline contrast with delayed imaging is suggestive of intra pulmonic shunting. Suggest CHANDRA to further define . Signature Findings Technical Quality: Technically adequate exam. Left Limited 2D exam and Doppler exam to address study indication; Ventriclesaline contrast study. Atrial IV saline contrast injection was negative for a PFO (patent Septum foramen ovale) at rest and post Valsalva . IV saline contrast with delayed imaging is suggestive of intra pulmonic shunting. Procedure Note Interface, External Ris In - 09/15/2019 3:42 PM CDT Transthoracic Echocardiography Report (TTE) Demographics Patient Name RENA SINCLAIR Date of S addy 09/15/2019 Gender Female Visit Number [id number] Race Unknown Room [place] [address] Number Date of 1950 Referring Karan Melara Physician Age 68 year(s) Sonograph er Georgiana Vazquez, NB, RDCS,RVT,RDMS Gear And Spline Grinder Mary Jaramillo, Interpret ing Leodan Sloan MD [facility] Physician Procedure Type of Study TTE procedure:LIMITED 2D ECHO CARDIOGRAM (Routine) Indications:Liver transplant evaluation. Clinical History Cirrhosis, COPD, HTN, DM, Asthma, Obesit y HGB 6.9 HCT 24.7 % Contrast Medium: Bubble Study. Height: 65 inches Weight: 97.52 kg (215 lbs) BSA: 2.04 m^2 BMI: 35.78 kg/m^2 HR: 92 bpm BP: 154/67 mmHg Summary IV saline contrast injection was negati ve for a PFO (patent foramen ovale) at rest and post Valsalva. IV saline contrast with delayed imaging is suggestive of intra pulmonic shunting. Suggest CHANDRA to further define . Signature Findings Technical Quality: Technically adequate exam. Left Limited 2D exam and Dopple r exam to address study indication; Ventricle saline contrast study. Atrial IV saline contrast injecti on was negative for a PFO (patent Septum foramen ovale) at rest and post Valsalva . IV saline contrast with de layed imaging is suggestive of intra pulmonic shunting. Performing Organization Address City/State/Zipcode Phone Number [facility] ECHO HEART[facility] MKCKESSON [facility] REPORT OF PROCEDURE - ENDOSCOPY URL (09/15/2019 10:33 AM CDT) Narrative Performed At This result has an attachment that is no t available. Hepatitis A antibody, IgG (09/15/2019 4:27 AM CDT) Hep A IgG Reactive (A) Nonreactive [facility] Specimen Blood Performing Organization Address City/State/Zipcode Phone Number [facility] [address] [place] [address] CENTER Manual Differential (09/15/2019 4:27 AM CDT) % Neutros 68 % [facility] % Lymphs 19 % [facility] % Monos 3 % [facility] % Eos 3 % [facility] % Baso 7 % [facility] # Neutros 1.43 (L) 1.56 - 6.13 K/ul [facility] # Lymphs 0.40 (L) 1.18 - 3.74 K/ul [facility] # Monos 0.06 (L) 0.24 - 0.36 K/uL [facility] # Eos 0.06 0.04 - 0.36 K/uL [facility] # Baso 0.15 (H) 0.01 - 0.08 K/uL [facility] Total Counted [address] [facility] WBC Morphology Normal [facility] Platelet Morph[facility] Normal [facility] Polychromasia 1+ few [facility] Hypochromia 1+ few [facility] Anisocytosis 1+ few [facility] Microcytes 1+ few [facility] Poikilocytes 1+ few [facility] Schistocytes 1+ few [facility] Elliptocytes 1+ few [facility] Artifact Present [facility] Platelet Conc Decreased [facility] Specimen Blood Narrative Performed At Received comment: [facility] User comments: Slide comments: Performing Organization Address City/[facility] Services[facility] Phone Number [address] [address] CENTER Iron, TIBC, % sat. (without ferritin) (09/15/2019 4:27 AM CDT)Only the most recent of2 resultswithin the time period is included. Iron 17.0 (L) 40.0 - 160.0 ug/dL [facility] TIBC 436 250 - 450 ug/dL [facility] Iron % Saturation 4 (L) 20 - 55 % [facility] Specimen Blood Performing Organization Address [facility] Servicescode Phone Number [address] [address] [place] Hepatitis B surface antibody (09/15/2019 4:27 AM CDT) Hep B S Ab <8.0 <8.0 mIU/mL [facility] Specimen Blood Performing Organization Address City/[facility] Services[facility] Phone Number [address] [address] CENTER B-type Natriuretic Factor (BNP) (09/15/2019 4:27 AM CDT)Only the most recent of 2 resultswithin the time period is included. BNP 153 (H) 0 - 100 pg/mL [facility] Specimen Blood Performing Organization Address City/[facility] Services[facility] Phone Number [address] [address] CENTER Hemoglobin A1c (09/15/2019 4:27 AM CDT) Hemoglobin A1C 9.4 (H) 4.3 - 6.1 % [facility] Specimen Blood Performing Organization Address City/[facility]/Zipcode Phone Number [address] [address] CENTER Gamma Glutamyl Transferase (GGT) (09/15/2019 4:27 AM CDT) GGT 23 9 - 64 U/L [facility] Specimen Blood Performing Organization Address City/[facility]/Zipcode Phone Number [address] [address] CENTER Ferritin (09/15/2019 4:27 AM CDT)Only the most recent of2 resultswithin the time period is included. Ferritin 11 5 - 275 ng/mL [facility] Specimen Blood Performing Organization Address [facility] Servicesconh Phone Number [address] [address] [place] Comprehensive metabolic panel (09/15/2019 4:27 AM CDT) Protein, Total 5.9 (L) 6.0 - 8.3 gm/dL [facility] Albumin 2.8 (L) 3.5 - 5.0 g/dL [facility] Alkaline Phosphatase 71 40 - 150 U/L [facility] Total Bilirubin 0.9 0.2 - 1.2 mg/dL [facility] Sodium 137 136 - 145 meq/L [facility] Potassium 3.8 3.5 - 5.1 meq/L [facility] Chloride 106 98 - 107 meq/L [facility] CO2 25 22 - 29 meq/L [facility] BUN 12 7 - 21 mg/dL [facility] Creatinine 0.76 0.57 - 1.25 mg/dL [facility] Glucose 250 (H) 70 - 105 mg/dL [facility] ER Calcium 7.7 (L) 8.4 - 10.2 mg/dL [facility] AST 47 (H) 5 - 34 U/L [facility] ALT 15 6 - 55 U/L [facility] EGFR 76Comment: ESTIMATED GFR mL/min/1.73 sq m [facility] IS NOT ACCURATE [facility] CREATININE CLEARANCE IN PREDICTING GLOMERULAR FILTRATION RATE. ESTIMATED GFR IS NOT APPLICABLE FOR DIALYSIS PATIENTS. Specimen Blood Performing Organization Address City/State/Zipcode Phone Number [facility] [address] [place] [address] CENTER ECHOCARDIOGRAM REPORT - SCAN (09/14/2019 9:20 PM CDT) Narrative Performed At This result has an attachment that is no t available. Urinalysis w/Microscopic + Reflex to Culture (09/14/2019 6:21 PM CDT) Color, UA Yellow [facility] Clarity, UA Clear [facility] Specific [place], UA 1.016 1.001 - 1.035 [facility] pH, UA 5.5 5.0 - 8.[address] [facility] Protein, UA Negative Negative [facility] Glucose, UA Negative Negative [facility] Ketones, UA Negative Negative [facility] Bilirubin, UA Negative Negative [facility] Blood, UA Trace (A) Negative [facility] Nitrite, UA Negative Negative [facility] Leukocytes, UA Negative Negative [facility] Urobilinogen, UA 0.2 0.2 - 1.0 mg/dL [facility] RBC, UA 1 /HPF [facility] WBC, UA 1 /HPF [facility] Squam Epithel, UA 1 /HPF [facility] Specimen Source [facility] Specimen Urine Performing Organization Address [facility] Services[facility] Phone Number [address] [address] [place] Sodium, random urine (09/14/2019 6:21 PM CDT) Sodium Urine 66 meq/L [facility] Specimen Urine Narrative Performed At Reference Range: No Normals [facility] Performing Organization Address [facility] Servicesconh Phone Number [address] [address] [place] Creatinine, random urine (09/14/2019 6:21 PM CDT) Creatinine, Ur 63.7 mg/dL [facility] Specimen Urine Narrative Performed At Reference Range: No Normals [facility] Performing Organization Address [facility] Servicesconh Phone Number [address] [address] [place] Hemoglobin and hematocrit (09/14/2019 2:35 PM CDT) Hemoglobin 7.3 (L) 11.2 - 15.7 GM/DL [facility] Hematocrit 25.4 (L) 34.1 - 44.9 % [facility] Specimen Blood Performing Organization Address City/[facility]/Zipcode Phone Number [address] [address] [place] Mitochondrial Ab Titer (09/14/2019 2:34 PM CDT) Mitochondrial Ab Titer TNP <1:20 [facility] Comment: INCORPORATED Test Not Performed. Screening test Negative or N ot Detected. Titer not performed. Specimen Blood Narrative Performed At Performing Lab [facility] i3 membrane [address] [id number] [place] [address] Sue Lopes MD, PhD, JUAN DAVID Performing Organization Address [facility] Phone Number [facility] [place] [address] [facility] [address] [facility] Mitochondrial Ab Screen (09/14/2019 2:34 PM CDT) Anti-Mitochond Abs NEGATIVE NEGATIVE [facility] Comment: INCORPORATED This test was developed and its analytical perfo rmance characteristics have been determined by [employer] [facility]. It has not been cleared or approved by FDA. This assay has been validated pursuant to the CLIA regulations and is used for clinical purposes. Specimen Blood Narrative Performed At Performing Lab [facility] i3 membrane [address] [address] [place] [address] Sue Lopes MD, PhD, JUAN DAVID Performing Organization Address [place] [facility] [facility] Phone Number [facility] [place] [address] [facility] [id number] [facility] Anti-Mitochondrial Ab, reflex to titer (09/14/2019 2:34 PM CDT) Scan Result [facility] Specimen Blood Performing Organization Address [facility] Phone Number [facility] [place] [address] [facility] [id number] [facility] [id number] (09/14/2019 2:34 PM CDT) A-1 Antitrypsin 104.20 90.00 - 200.00 mg/dL [facility] Specimen Blood Performing Organization Address [facility] Phone Number [facility] [address] [place] [address] CENTER Limited 2D Echocardiogram (09/14/2019 12:41 PM CDT) Ejection Fraction [facility]AR TLAB [facility] Specimen Narrative Performed At Transthoracic Echocardiography Report (T TE) [facility]ART[facility] Demographics Patient Name Kenzie SINCLAIR of Study 09/14/2019 [id number] [facility] Number [id number] Unknown [id number] Room Number [id number] Number Date of Birth1Referring Physician Gerson Mane Age68 year(s)Commutator Operator Catie Pearce Physician Procedure Type of Study TTE procedure:LIMITED 2D ECHOCARDIOGRAM (Routine) Indications:Shortness of breath. Clinical History DM, HTN, Arthiritis Height: 65 inches Weight: 97.52 kg (215 lbs) BSA: 2.04 m^2 BMI: 35.78 kg/m^2 HR: 86 bpm BP: 117/54 mmHg Summary 1. Normal LV size and function. All segments are normal. Estimated LVEF is normal (>60%) . 2. Normal RV size and function. 3. Grade 1 diastolic dysfunction (impaired relaxation and low-normal LA pressure). 4. Estimated peak systolic PA pressure is 40-45 mmHg . Previous Study No prior studies available for comparis on. Signature Findings Left Ventricle The left ventricle is chamber size (by PSLAX di mension) is normal (male - LVIDd 4.2-5.8 cm) . No ev idence of LV hypertrophy. All of the LV segments co ntract normally . Global LV systolic fun ction no rmal . Estimated LVEF by qualitative ass essment is normal (>60%) . Grade 1 diastolic dysfun ction (i mpaired relaxation and low-normal LA pre ssure). Left AtriumLA size is moderately enlarged (42-48 ml/m2) . Right VentricleThe right ventricular chamber size and systolic fu nction are within normal limits. Right Atrium RA cavity size is normal . Aortic Valve Mild AoV cusp thickening. Mitral Valve Mild MV leaflet thickening. Mi ld mitral regurgitation. Tricuspid ValveMild tricuspid regurgitation. Es timated peak systolic PA pressure is 40- 45 mmHg . Pulmonic Valve Normal PV structure and function by limited views an d Doppler. AortaAortic root size (SInus of Valsalva diameter) i s no rmal . PericardiumAscites is visualized. No significant pericardial effusion is visu alized. IVC/SVC/PA/PV/PleuralThe estimated RA pressure by IVC dynamics 5-10mmHg . Chambers/Structures Left Atrium LA Volume: 93.09 ml LA Area: 26.53 cm^2 LA Vol. Index: 46 ml/m^2 Left Ventricle LVIDd: 5.21 cm LV Septum Diastolic: 1.12 cm LV PW Diastolic: 1.01 cm LVOT Diameter: 1.94 cm Right Ventricle TAPSE: 2.38 cm Aorta Ao Root S of Karon.: 2.73 cm Doppler/Quantitative Measurements Mitral Valve MV Peak E-Wave: 1.2 m/s MV Peak A-Wave: 1.48 m/s E/A Ratio: 0.81 Peak Gradient: 5.79 m mHg Deceleration Time: 23 1.1 msec MV Clyde. Peak: Aortic Valve Peak Velocity: 1.89 m/sMean Velocity: 1.3 m/s Peak Gradient: 14.23 mmHgMean Gradient: 7.59 mmHg AV Area (continuity): 2.57 cm^2 AV VTI: 36.82 cm AV DVI: 0.87 LVOT Peak Velocity: 1.39 m/s Peak Gradient: 7.73 mmHg Mean Velocity: 1 m/sMean Gradient: 4.42 mmHg LVOT Diameter: 1.94 cmLVOT VTI: 32.07 cm LVOT Area: 2.96 cm^2LVOT SV:94.75 ml LVOT CO: 8.15 l/min LVOT CI: 4 l/min/m^2 Tricuspid Valve TR Velocity: 3.03 m/s TR Gradient: 36.83 mmHg Procedure Note Interface, External Ris In - 09/14/2019 6:39 PM CDT Transthoracic Echocardiography Report (TTE) Demographics Patient Name RENA SINCLAIR Date of Study 09/14/2019 Gender Female Visit Number [id number] Race Unknown Room Num [id number] Number Date of 1950 Anmol abebe Physician Gerson Mane Age 68 year(s) Sonograp her Heladio Clemente [employer] Spl[employer] Grinder Catie Street MD Procedure Type of Study TTE procedure:LIMITED 2D ECHO CARDIOGRAM (Routine) Indications:Shortness of breath. Clinical History DM, HTN, Arthiritis Height: 65 inches Weight: 97.52 kg (215 lbs) BSA: 2.04 m^2 BMI: 35.78 kg/m^2 HR: 86 bpm BP: 117/54 mmHg Summary 1. Normal LV size and function. All seg ments are normal. Estimated LVEF is normal (>60%) . 2. Normal RV size and function. 3. Grade 1 diastolic dysfunction (impai red relaxation and low-normal LA pressure). 4. Estimated peak systolic PA pressure is 40-45 mmHg . Previous Study No prior studies available for comparis on. Signature Findings Left Ventricle The left ventric le is chamber size (by PSLAX dimension) is no rmal (male - LVIDd 4.2-5.8cm) . No evidence of LV h ypertrophy. All of the LV segments contract normall y . Global LV systolic function normal . Estimat ed LVEF by qualitative assessment is normal (>60%) . Grade 1 diastolic dysfunction (impaired relaxa tion and low-normal LA pressure). Left Atrium LA size is moder ately enlarged (42-48 ml/m2) . Right Ventricle The right ventri cular chamber size and systolic function are wit hin normal limits. Right Atrium RA cavity size i s normal . Aortic Valve Mild AoV cusp th ickening. Mitral Valve Mild MV leaflet thickening. Mild mitral regu rgitation. Tricuspid Valve Mild tricuspid r egurgitation. Estimated peak s ystolic PA pressure is 40-45 mmHg . Pulmonic Valve Normal PV struct ure and function by limited views and Doppler. Aorta Aortic root size (SInus of Valsalva diameter) is normal . Pericardium Ascites is visua lized. No significant p ericardial effusion is visualized. IVC/SVC/PA/PV/Pleural The estimated RA pressure by IVC dynamics 5-10mmHg . Chambers/Structures Left Atrium LA Volume: 93.09 ml LA Area: 26.53 cm^2 LA Vol. Index: 46 ml/m^2 Left Ventricle LVIDd: 5.21 cm LV Septum Diastolic: 1.12 cm LV PW Diastolic: 1.01 cm LVOT Diameter: 1.94 cm Right Ventricle TAPSE: 2.38 cm Aorta Ao Root S of Karon.: 2.73 cm Doppler/Quantitative Measurements Mitral Valve MV Peak E-Wave: 1.2 m/s MV Pe ak A-Wave: 1.48 m/s E/A R atio: 0.81 Peak Gradient: 5.79 mmHg Decel eration Time: 231.1 msec MV Clyde. Peak: Aortic Valve Peak Velocity: 1.89 m/s Mean Velocity: 1.3 m/s Peak Gradient: 14.23 mmHg Mean Gradient: 7.59 mmHg AV Area (continuity): 2.57 cm^2 AV VTI: 36.82 cm AV DVI: 0.87 LVOT Peak Velocity: 1.39 m/s Pea k Gradient: 7.73 mmHg Mean Velocity: 1 m/s Maribeth n Gradient: 4.42 mmHg LVOT Diameter: 1.94 cm LVO T VTI: 32.07 cm LVOT Area: 2.96 cm^2 LVO T SV:94.75 ml LVOT CO: 8.15 l/min LVO T CI: 4 l/min/m^2 Tricuspid Valve TR Velocity: 3.03 m/s TR Gradient: 36.83 mmHg Performing Organization Address City/State/Zipcode Phone Number [facility] ECG 12 lead (09/14/2019 6:09 AM CDT) Specimen Narrative Performed At Ventricular Rate 89 BPM GE MUSE Atrial Rate 89 BPM P-R Interval 138 ms QRS Duration 86 ms Q-T Interval 406 ms QTC Calculation(Bazett) 493 ms P [place] 51 degrees R [place] 19 degrees T [place] 67 degrees Normal sinus rhythm Prolonged QT Abnormal ECG No previous ECGs available Confirmed by Rosendo GARCIA, KRISSY ([id number]) on 09/14/2019 5 :46:25 PM Procedure Note Interface, External Ris In - 09/14/2019 5:46 PM CDT Ventricular Rate 89 BPM Atrial Rate 89 BPM P-R Interval 138 ms QRS Duration 86 ms Q-T Interval 406 ms QTC Calculation(Bazett) 493 ms P [place] 51 degrees R [place] 19 degrees T [place] 67 degrees Normal sinus rhythm Prolonged QT Abnormal ECG No previous ECGs available Confirmed by Rosendo GARCIA, KRISSY ([id number]) o n 09/14/2019 5:46:25 PM Performing Organization Address City/State/Zipcode Phone Number GE MUSE ABORH, manual (09/14/2019 3:14 AM CDT) ABO Grouping A [facility] Rh Factor POS [facility] Specimen Blood Performing Organization Address [facility] Phone Number [address] [address] Type and screen, automated (09/14/2019 2:46 AM CDT) ABO/RH AUTOMATED (BEAKER) A POSITIVE [facility] Ab Scrn NEGATIVE [facility] Specimen Blood Performing Organization Address [facility] Phone Number [address] [address] Troponin I (09/14/2019 2:38 AM CDT) Troponin I <0.01 0.00 - 0.03 ng/mL [facility] Specimen Blood Narrative Performed At Troponin I (TnI) levels must be interpreted [facility] in the context of the presenting symptoms and the clinical findings. Elevated TnI levels indicate myocardial damage, but are not specific for ischemic heart disease. Elevated TnI levels are seen in patients with other cardiac conditions (including myocarditis and congestive heart failure), and slight TnI elevations occur in patients with other conditions, including sepsis, renal failure, acidosis, acute neurological disease, and persistent tachyarrhythmia. Performing Organization Address City/State/Zipcode Phone Number [address] [address] [place] Hepatitis panel, acute (09/14/2019 2:38 AM CDT) Hep A IgM Nonreactive Nonreactive [facility] Hep B C IgM Nonreactive Nonreactive [facility] Hepatitis C Ab Nonreactive Nonreactive [facility] HBsAg Screen Nonreactive Nonreactive [facility] Specimen Blood Performing Organization Address City/[facility] Phone Number [address] [address] CENTER Immunoglobulin M (IgM) (09/14/2019 2:38 AM CDT) IgM 173 22 - 293 mg/dL [facility] Specimen Blood Performing Organization Address [facility] Phone Number [address] [address] CENTER Immunoglobulin G (IgG) (09/14/2019 2:38 AM CDT) IgG 1,276 540-1,822 mg/dL [facility] Specimen Blood Performing Organization Address [facility]/Zipcode Phone Number [address] [address] CENTER after 06/28/2019 Insurance Payer Benefit Plan / Subscriber ID Type Phone Address Group MEDICARE MEDICARE A B xxxxxxxxxxx Medicare BLUE CROSS/BLUE [facility] FED xxxxxxxxx [facility] [phone] [address] [place] [address] Advance Directives For more information, please contact:[facility] [place], [place] [phone] Code Status Date Activated Date Inactivated Comments Full Code 09/14/2019 1:20 AM 09/20/2019 6:17 PM This code status was determined by: Patient
--- OUTSIDE RECORDS SUMMARY | 2020-06-28 23:19 | XMS REPORT | Summary of Care ---
:1950 Author Organization [facility] - Health Address [address] [place] [address] Care Team Providers Name Role Phone Zan Tapia Primary Care Provider Encounter Details Date Type Department Care Team Description 03/21/2020 Orders Only [facility] Doctor Unassigned, No [address] [facility] [place] [address] [address] [place] [address] Allergies No Known Allergiesdocumented as of this encounter (statuses as of 04/20/2020) Medications Medication Sig Dispensed Refills Start Date End Date Status metoprolol tartrate Take 100 mg by 0 Active (LOPRESSOR) 50 mg tablet mouth 2 (two) times daily. fexofenadine (ERIKA) Take 180 mg by 0 Active 180 mg tablet mouth daily. furosemide (LASIX) 40 mg Take 40 mg by 0 10/31/2010 Active tablet mouth 2 (two) times daily. aspirin 81 mg tablet Take 81 mg by 0 10/31/2010 Active mouth 2 (two) times daily. fluticasone-salmeterol Inhale 1 Puff 0 10/31/2010 Active (ADVAIR DISKUS) 250-50 daily. mcg/Dose inhalation disk blood sugar diagnostic before meals. 100 Strip 11 10/31/2010 Active (FREESTYLE LITE STRIPS) strip KCL (KLOR-CON M20) 20 mEq Take 1 Tab by 30 Tab 1 11/19/2010 Active tablet mouth daily. fluticasone (FLONASE) 50 Use 2 Sprays in 0 Active mcg/Actuation nasal spray each nostril daily. latanoprost (XALATAN) Place 1 Drop in 0 Active 0.005 % ophthalmic drops both eyes every evening. Blood-Glucose Meter daily. 1 Kit 0 12/30/2010 Active (FREESTYLE LITE METER) Kit foLIC acid (FOLATE) 1 mg Take 1 Tab by 30 Tab 3 04/09/2011 Active tabletIndications: mouth daily. Psoriatic arthropathy CALCIUM CARBONATE/VITAMIN Take 1 tablet 0 04/24/2011 Active D3 (CALTRATE 600 + D by mouth daily. ORAL) secukinumab (COSENTYX) inject 150 mg 0 Active 150 mg/mL SC syringe under the skin weekly. omeprazole 40 mg capsule Take 40 mg by 0 Active mouth daily. DULoxetine 30 mg capsule Take 30 mg by 0 Active mouth daily. hydroCHLOROthiazide 12.5 Take 12.5 mg by 0 Active mg capsule mouth daily. montelukast 10 mg tablet Take 10 mg by 0 Active mouth daily. cetirizine (ZYRTEC) 10 mg Take 10 mg by 0 Active tablet mouth daily. albuterol-ipratropium Inhale 1 Puff 0 Active 20-100 mcg/actuation as needed for inhaler Wheezing or Shortness of Breath. spironolactone 25 mg Take 25 mg by 0 Active tablet mouth 2 (two) times daily. gabapentin 100 mg capsule Take 100 mg by 0 Active mouth at bedtime. ferrous sulfate 325 mg Take 325 mg by 0 Active (65 mg iron) tablet mouth 3 (three) times daily with meals. metFORMIN 500 mg Take 1 tablet 60 tablet 0 02/25/2020 Active tabletIndications: by mouth 2 Diabetes mellitus type 2, (two) times uncontrolled, without daily with complications meals. 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 Dysuria 10/31/2010 Diabetes mellitus type 2, uncontrolled, without compli cations 10/31/2010 Overview: ICD10 Diagnosis Term [employer] Utility Essential hypertension, benign 10/31/2010 documented as of this encounter (statuses as of 04/20/2020) Immunizations Name Administration Dates Next Due Influenza High Dose 02/22/2020 documented as of this encounter Social History Tobacco Use Types Packs/Day Years Used Date Never Smoker Smokeless Tobacco: Never Used Alcohol Use Drinks/Week oz/Week Comments No Sex Assigned at Date Recorded Not on file Job Start Date Occupation Industry Not on file Not on file Not on file Travel History Travel Start Travel End No recent travel history available. documented as of this encounter Last Filed Vital Signs Not on filedocumented in this encounter Plan of Treatment Health Maintenance Due Date Last Done Comments EYE EXAM 1960 URINE MICROALBUMIN 1960 DTaP,Tdap,and Td Vaccines (1 - 1961 Tdap) FOOT EXAM 1968 Breast Cancer Screening 1990 (MAMMOGRAM) COLONOSCOPY 2000 Zoster Recombinant Vaccine 2000 (SHINGRIX) (1 of 2) Medicare Wellness Visit 2015 Osteoporosis Screening 2015 PNEUMOCOCCAL VACCINES 65+ (1 of 2 2015 - PCV13) HgA1C 08/21/2020 02/20/2020, 12/30/2010, 10/31/2010 LDL-C 02/19/2021 02/20/2020 CREATININE (SERUM) 02/24/2021 02/25/2020, 02/22/2020, 02/21/2020, Additional history exists HEPATITIS C (HCV) SCREEN Completed 10/31/2010 INFLUENZA VACCINE Completed 02/22/2020 documented as of this encounter Implants Implanted Type Area Humane Agent Device Shelf Model / Identifier Expiration Date Ser ial / Lot Lens, Bentley #[id number] - [id number] LENS Left: Eye Bentley 09/15/2022 [id number] / Implanted: Qty: 1 on 05/27/2018 by Dez So MD at [facility] 1 [id number] / [id number] Lens, Bentley #[id number] - [id number] LENS Right: Bentley 12/16/2022 [id number] / Implanted: Qty: 1 on 06/10/2018 by Dez So MD at [facility] Eye 1 [id number] / [id number] documented as of this encounter Procedures Procedure Name Priority Date/Time Associated Diagnosis Comme nts AUTHORIZATION FOR RELEASE Routine 03/21/2020 12:01 AM OF PHI CDT documented in this encounter Results Not on filedocumented in this encounter Insurance Payer Benefit Plan Subscriber ID Effective Phone Address Typ e / Group Dates MEDICARE MEDICARE PART xxxxxxxxxxx 2015-Prese [phone] [address] X Medicare A & B nt 82 [id number] [place] [id number] [facility] BCBS FED [id number] 2003-Prese [phone] [address] PPO/POS SELECT nt [id number] [place] [address] documented as of this encounter
--- OUTSIDE RECORDS SUMMARY | 2020-06-28 23:19 | XMS REPORT | Continuity of Care Document ---
:1950 Author Organization [facility] t Address [address] [place] [address] Care Team Providers Name Role Phone Pcp Primary Care Physician Unavailable Doctor Unassigned, Name Attending Clinician Unavailable Tony DOE, G Attending Clinician Khris MARINA Attending Clinician Unavailable Devin MARINA, M Attending Clinician Hina OLIVER, R Attending Clinician Yogesh DOVER Attending Clinician JESÚS Attending Clinician Unavailable Jesús DOVER Attending Clinician Kelton DOVER Attending Clinician Bernadine Boucher MD Attending Clinician [phone] Vitaliy Galaena CRNA Attending Clinician Orion Saravia MD Attending Clinician Yogesh DOVER Admitting Clinician KELTON Admitting Clinician Unavailable Payers Payer Name Policy Policy Number Effective Expiration Source Type Date Date MEDICAREMEDICARE A xxxxxxxxxxx [facility]BL[facility] [id number] [address] Problems Condition Condition Condition Status Onset Resolution Last Treating Co mments Source Name Details Category Date Date Treatment Clinician Date COPD COPD Disease Active 2018-[address] [facility] ([facility] - obstructiv obstructiv 00:00: Me dical e e 00 Center pulmonary pulmonary disease) disease) Cirrhosis Cirrhosis Disease Active 2018-[address] [facility] [address] of liver of liver 0-30 [facility] - with with 00:00: Medical ascites ascites 00 Center Allergies, Adverse Reactions, Alerts This patient has no known allergies or adverse reactions. Social History Social Habit Start Date Stop Date Quantity Comments Source History SDOH Alcohol [facility] - Std Drinks [facility] History VTOH Alcohol [facility] - Binge [facility] Sex Assigned At [facility] kes [facility] History SDOH Alcohol 2019-09-14 2019-09-[address] [facility] - Frequency 00:00:00 00:00:00 Medical Center Smoking Status Start Date Stop Date Source Never smoker [facility] M edical Center Medications Ordered Filled Start Stop Current Ordering Indication Dosage Frequency Signature Comments Components Source Medication Medication Date Date Medication? Clinician (SIG) Name Name predniSONE 2018-11- No 10mg QD Take [address] [facility] (DELTASONE) 117 11-20 tablet (10 L ukes - 10 MG 00:00: 23:59 mg total) Medica l tablet 00 :00 by mouth Center daily for 3 days. predniSONE 2018-11- No 20mg QD Take [address] [facility] (DELTASONE) 113 11-16 tablet (20 L ukes - 20 MG 00:00: 23:59 mg total) Medica l tablet 00 :00 by mouth Center daily for 3 days. predniSONE 2018-11- No 30mg QD Take [address] [facility] (DELTASONE) 11-24 11-12 tablets Luke s - 10 MG 00:00: 23:59 (30 mg Medical tablet 00 :00 total) by Center mouth daily for 3 days. furosemide 2018-11- No 40mg QD Take [address] [facility] (LASIX) 40 11-21 11-05 tablet (40 Shira kes - MG tablet 00:00: 23:59 mg total) Me dical 00 :00 by mouth Center daily. albuterol 2018-11- No 2{puff} Inhale [address] [facility] HFA 11-20 11-05 puffs by [facility] - (VENTOLIN 11:11: 00:00 mouth via Me dical HFA) 90 15 :00 inhaler Center mcg/actuati every 4 on inhaler (four) hours as needed for Wheezing or Shortness of Breath. albuterol 2018-11 Yes 2{puff} Inhale [address] HFA 1-05 puffs by [facility] - (VENTOLIN 00:00: mouth via Med ical HFA) 90 00 inhaler Center mcg/actuati every 4 on inhaler (four) hours as needed for Wheezing or Shortness of Breath. ferrous 2018-11- No 325mg [id number] Take [address] [facility] sulfate 325 11-20 [id number] tablet [facility] - (65 FE) MG 00:00: 23:59 3D (325 mg Med ical tablet 00 :00 total) by Center mouth 3 (three) times daily. budesonide 2018-11- No .5mg Q.5D Take [address] (PULMICORT) 11-20 (0.5 mg Luke s - 0.5 mg/2 mL 00:00: 23:59 total) by Medical nebulizer 00 :00 nebulizati Cent er solution on 2 (two) times daily. dextrometho 2018-11- No 5mL Take [address] [address] rphan-guaif 11-20 by mouth Zara es - enesin 00:00: 23:59 every 4 Medical (ROBITUSSIN 00 :00 (four) Center -DM) 10-100 hours as mg/5 mL needed for liquid up to 10 days. predniSONE 2018-11- No 40mg QD Take [address] [facility] [address] (DELTASONE) 11-20 tablets Luke s - 20 MG 00:00: 23:59 (40 mg Medical tablet 00 :00 total) by Center mouth daily for 3 days. budesonide 2018-11- No .5mg Q.5D Take [address] [address] (PULMICORT) 11-20 (0.5 mg Luke s - 0.5 mg/2 mL 00:00: 00:00 total) by Medical nebulizer 00 :00 nebulizati Cent er solution on 2 (two) times daily. latanoprost 2018-11 Yes 1[drp] QD Place [address] (XALATAN) 1-01 drop into [facility] - 0.005 % 23:20: both eyes Medic al ophthalmic 26 nightly. Cente r solution omeprazole 2018-11 Yes 40mg QD Take [address] (PRILOSEC) 0-30 by mouth [facility] - 40 MG 17:10: daily. Medical capsule 52 [place] brimonidine 2018-11 Yes 1[drp] Q.5D Place [address] (ALPHAGAN) 0-30 drop into Luke s - 0.15 % 17:10: both eyes Medica l ophthalmic 52 2 (two) Center solution times daily. insulin 2018-11 Yes 30U QD Inject 30 [facility] t degludec 0-30 Units [facility] - 100 unit/mL 17:10: subcutaneo Medical (3 mL) InPn 52 usly Center daily. SITagliptin 2018-11 Yes 1{tbl} QD Take [address] -metFORMIN 0-30 tablet by Luke s - (JANUMET) 17:10: mouth Medical 50-1,000 mg 51 daily. [place] per tablet montelukast 2018-11 Yes 10mg QD Take [address] [facility] (SINGULAIR) 0-30 by mouth Luke s - 10 mg 17:10: nightly. Medical tablet 51 [place] lisinopril 2018-11 Yes 20mg QD Take [address] (PRINIVIL,Z 0-30 by mouth Luke s - ESTRIL) 20 17:10: daily. Medic al MG tablet 51 Center metoprolol 2018-11 Yes 100mg Q.5D Take [address] (LOPRESSOR) 0-30 mg by [facility] - 100 MG 17:10: mouth 2 Medical tablet 51 (two) Center times daily. amLODIPine 2018-11 Yes 5mg QD Take [address] (NORVASC) 5 0-30 by mouth Luke s - MG tablet 17:10: daily. Medica l 51 Center hydroCHLORO 2018-11 Yes 12.5mg QD Take 12.[address] thiazide 0-30 mg by [facility] - (MICROZIDE) 17:10: mouth Medic al 12.5 mg 51 daily. Center capsule Vital Signs Vital Name Observation Time Observation Value Comments Source Systolic blood 2019-09-20 14:00:00 145 mm[Hg] [facility] Diastolic blood 2019-09-20 14:00:00 65 mm[Hg] [facility] S [facility] Heart rate 2019-09-20 14:00:00 70 /min [facility] Respiratory rate 2019-09-20 14:00:00 18 /min [facility] Oxygen saturation in 2019-09-20 14:00:00 100 /min [facility] Arterial blood by Medical Ce nter Pulse oximetry Body temperature 2019-09-20 12:15:00 36.78 Jami [facility] Body weight Measured 2019-09-15 09:00:00 94.802 kg [facility] BMI 2019-09-15 09:00:00 34.78 kg/m2 [facility] Body height 2019-09-14 01:00:00 165.1 cm [facility] Procedures Procedure Date / Time Performing Clinician Source Performed RHYTHM STRIP - SCAN 2019-09-27 15:21:53 Provider, [facility] RHYTHM STRIP - SCAN 2019-09-22 08:32:09 Provider, [facility] REPORT OF PROCEDURE - 2019-09-22 08:32:05 Provider, [facility] RHYTHM STRIP - SCAN 2019-09-22 08:32:04 Provider, [facility] PULMONARY FUNCTION - SCAN 2019-09-22 08:10:02 Provider, [facility] POCT-GLUCOSE METER 2019-09-20 12:51[facility] 2019-09-20 08:41[facility] 2019-09-19 21:27:00 [facility] 2019-09-19 17:36:00 [facility] 2019-09-19 13:10:[facility] POCT-[facility]UCOSE METER 2019-09-19 08:10:[address] [facility] POCT-GLUCOSE METER 2019-09-18 23:42[facility] 2019-09-18 [facility]:32[facility] 2019-09-18 18:20[facility] 2019-09-18 14:22[facility] W/PLT COUNT & AUTO 2019-09-18 08:54:00 [facility] 2019-09-18 07:41:[facility] PO[facility]SE METER 2019-09-18 00:22:00 Kelton [facility] POCT-GLUCOSE METER 2019-09-17 18:32:00 [facility] 2019-09-17 18:02:38 Provider, Default [facility] REPORT [facility] BLOOD GAS, ARTERIAL 2019-09-17 15:15:00 Jonatan [facility] POCT-GLUCOSE METER 2019-09-17 10:44:00 Kelton [facility] POCT-GLUCOSE METER 2019-09-17 07:33:00 Kelton [facility] BILIRUBIN, DIRECT 2019-09-17 05:26:00 Jose Manuel Woodard [facility] PREPARE LEUKO-REDUCED RBC 2019-09-16 23:54:00 Kelton [facility] POCT-GLUCOSE METER 2019-09-16 23:12:00 [facility] TRANSFUSION SERVICE 2019-09-16 18:02:52 Provider, Default [facility] REPORT SCAN [facility] POCT-GLUCOSE METER 2019-09-16 17:54:00 [facility] POCT-[facility]SE METER 2019-09-16 12:49:00 [facility] 6 MIN[facility] WALK(FOR LUNG 2019-09-16 11:02:00 Kelton [facility] - TRANSPLANT ONLY) [facility] POCT-GLUCOSE METER 2019-09-16 10:20[facility] [facility] [facility] WITH & WITHOUT 2019-09-16 08:59:00 Bryson Nava [facility] IV CONTRAST [facility] POCT-GLUCOSE METER 2019-09-16 06:46:00 [facility] BASIC METABOLIC PANEL (7) 2019-09-16 06:39:00 Carlota Mane [facility] HEPATIC FUNCTION PANEL 2019-09-16 06:39:00 Nevaeh Mane [facility] PROTHROMBIN TIME/INR 2019-09-16 06:39:00 [facility] CBC W/PLT COUNT & AUTO 2019-09-16 06:39:00 Kelton [facility] DIFFERENTIAL [facility] PREPARE RBC 2019-09-15 23:54:00 Jesús [facility] ECHOCARDIOGRAM REPORT - 2019-09-15 21:21:21 Provider, Default [facility] TRANSFUSE LEUKO-REDUCED 2019-09-15 20:48:04 [facility] TRANSFUSION SERVICE 2019-09-15 18:00:24 Provider, Default [facility] POCT-GLUCOSE METER 2019-09-15 17:20:00 [facility] POCT-[facility]UCOSE METER 2019-09-15 14:59:00 [facility]ST 1 VIEW 2019-09-15 13:10:00 Kelton, Umar [facility] - [facility] Medical [facility] LIMITED 2D ECHOCARDIOGRAM 2019-09-15 12:36:00 Bryson Nava [facility] POCT-GLUCOSE METER 2019-09-15 11:59:00 Kelton [facility] REPORT OF PROCEDURE - 2019-09-15 10:33:33 Pete Saravia [facility] ENDOSCOPY [facility] UPPER ENDOSCOPY 2019-09-15 10:00:00 Pete Saravia [facility] POCT-GLUCOSE METER 2019-09-15 08:23:00 Kelton yahir [facility] HEPATIC FUNCTION PANEL 2019-09-15 04:27:00 Jesús [facility] PROTHROMBIN TIME/INR 2019-09-15 04:27:00 [facility]s [facility] HEPATITIS A ANTIBODY, IGG 2019-09-15 04:27:00 Bryson Nava [facility] HEPATITIS B SURFACE 2019-09-15 04:27:00 Bryson Nava [facility] ANTIBODY [facility] COMPREHENSIVE METABOLIC 2019-09-15 04:27:[address] [facility] HEMOGLOBIN A1C 2019-09-15 04:27:00 Bryson Nava [facility] IRON, TIBC, % SAT. 2019-09-15 04:27:00 Michelle [facility] (WITHOUT FERRITIN) [facility] 2019-09-15 04:27:00 [facility] B-TYPE NATRIURETIC FACTOR 2019-09-15 04:27:00 Jose Manuel Woodard [facility] (BNP) [facility] GAMMA GLUTAMYL 2019-09-15 04:27:[address] [facility] TRANSFERASE (GGT) [facility] CBC W/PLT COUNT & AUTO 2019-09-15 04:27:00 Karan Melara [facility] (CELLAVISION MANUAL DIFF) 2019-09-15 04:27:00 Karan Melara [facility] POCT-GLUCOSE METER 2019-09-14 21:31:00 Kelton [facility] ECHOCARDIOGRAM REPORT - 2019-09-14 21:20:52 Provider, [facility] POCT-GLUCOSE METER 2019-09-14 19:00:00 Kelton [facility] URINALYSIS W/ REFLEX 2019-09-14 18:21:00 Jesús [facility] URINE CULTURE [facility] SODIUM, RANDOM URINE 2019-09-14 18:21:00 Jesús [facility] CREATININE, RANDOM URINE 2019-09-14 18:21:00 Jesús [facility] HEMOGLOBIN AND HEMATOCRIT 2019-09-14 14:35:00 Karan Melara [facility] [id number]\, 2019-09-14 14:34:00 [facility] ANTI-MITOCHONDRIAL AB, 2019-09-14 14:34:00 [facility] - REFLEX TO TITER [facility] MITOCHONDRIAL AB SCREEN 2019-09-14 14:34:00 [facility] MITOCHONDRIAL AB TITER 2019-09-14 14:34:00 [facility] POCT-GLUCOSE METER 2019-09-14 13:32:00 Kelton [facility] 2D ECHO W/ DOPPLER 2019-09-14 13:18:24 Bryson Nava [facility] (CW/PW/COLOR) [facility] LIMITED 2D ECHOCARDIOGRAM 2019-09-14 12:41:25 Carlota Mane [facility] POCT-GLUCOSE METER 2019-09-14 09:02:00 Kelton [facility] TRANSFUSE LEUKO-REDUCED 2019-09-14 08:31:27 Bautista Mane [facility] RED BLOOD CELLS [facility] ECG 12-LEAD 2019-09-14 06:09:40 Unknown, Hl7 Doctor [facility] ABORH, MANUAL 2019-09-14 03:14:00 Philly Calhoun [facility] TYPE AND SCREEN, 2019-09-14 02:46:00 [facility] BASIC METABOLIC PANEL (7) 2019-09-14 02:38:00 [facility] HEPATIC FUNCTION PANEL 2019-09-14 02:38:00 [facility] PROTHROMBIN TIME/INR 2019-09-14 02:38:00 [facility] HEPATITIS PANEL, ACUTE 2019-09-14 02:38:00 [facility] TROPONIN I 2019-09-14 02:38:00 [facility] B-TYPE NATRIURETIC FACTOR 2019-09-14 02:38:00 [facility] (BNP) [facility] FERRITIN 2019-09-14 02:38:00 [facility] IRON, TIBC, % SAT. 2019-09-14 02:38:00 [facility] (WITHOUT FERRITIN) [facility] r IMMUNOGLOBULIN M (IGM) 2019-09-14 02:38:00 [facility] CBC W/PLT COUNT & AUTO 2019-09-14 02:38:00 [facility] Encounters Start End Encounter Admission Attending Care Care Encounter Source Date/Time Date/Time Type Type Clinicians Facility Department ID 2020-03-21 2020-03-21 Orders Doctor QUIÑONEZ [id number] 00:00:00 00:00:00 Only Unassigned, RAFFY [id number] [place] [facility] [id number] 2020-02-25 2020-02-[address] [facility], [facility] [id number] 06:23:55 10:13:00 Mavis Ratliff [id number] [place] [id number] [place] [id number] 2020-02-25 2020-02-25 Nurse OLAMIDE Pinedo [id number] 00:00:00 00:00:00 Triage Katlin AKBAR [id number] [facility] [id number] 2020-02-23 2020-02-23 Transition Kenia Beltran [id number] 00:00:00 00:00:00 of Care Jade Salinas [id number] [place] [id number] 2020-02-20 2020-02-22 [facility] Hudson Santamaria [facility] [id number] 16:43:26 11:11:00 Encounter Fausto Zuñiga [id number] [place] [id number] [place] [id number] Results Test Description Test Time Test Comments Results Result Comments Source ANTI-MITOCHONDRIAL AB, REFLEX TO TITER 2019-09-28 07:59:00 Test Item Value Reference Range Interpretation Comme nts SCAN RESULT (test code = 5587686) Anti-Mitochondrial Ab, reflex to [id number] 07:59:00Scan ResultQUEST DIAGNOSTIC INCORPORATEDPlacentia-L[facility] HospitalRespiratory Panel [facility] 2019-09-20 13:14:00 Test Item Value Reference Range Interpretation Comments Human Metapneumovirus Not detected Not detected, (test code = 00640-7) Equivocal Rhinovirus (test code = Not detected Not detected, 36313-5) Equivocal INFLUENZA A (NO Not detected Not detected, SUBTYPE) (test code = Equivocal 70541-4) Influenza A subtype H1 (test code = 25985-8) Influenza A Subtype H3 (test code = 30673-2) Influenza A Subtype H1-2009 (test code = 56680-1) Influenza B (test code Not detected Not detected, = 73695-4) Equivocal Respiratory Syncytial Not detected Not detected, Virus (test code = Equivocal 17148-9) Parainfluenza Virus 1 Not detected Not detected, (test code = 04084-7) Equivocal Parainfluenza Virus 2 Not detected Not detected, (test code = 06985-5) Equivocal Parainfluenza virus 3 Not detected Not detected, (test code = 93268-9) Equivocal Parainfluenza Virus 4 Not detected Not detected, (test code = 62785-5) Equivocal Adenovirus (test code = Not detected Not detected, 34847-1) Equivocal Coronavirus 229E (test Not detected Not detected, code = 36700-5) Equivocal Coronavirus HKU1 (test Not detected Not detected, code = 79776-3) Equivocal Coronavirus NL63 (test Not detected Not detected, code = 10404-3) Equivocal Coronavirus OC43 (test Not detected Not detected, code = 51809-6) Equivocal Bordetella Pertussis Not detected Not detected, (test code = 31342-8) Equivocal Chlamydophila Not detected Not detected, Pneumoniae (test code = Equivocal 97103-3) Mycoplasma Pneumoniae Not detected Not detected, (test code = 63868-0) Equivocal MARY (test code = MARY) Other viruses and bacteria not targeted by this PCR panel cannot be excluded; therefore clinical correlation and follow up of serology, culture results, and other molecular studies is required. The results are not intended to be used as the sole means for clinical diagnosis or patient management decisions. This sample was tested at the [facility] Molecular Diagnostics Laboratory using the [employer] Respiratory Panel. It is FDA cleared and has been verified and approved by the [facility] Molecular Diagnostics Laboratory for clinical use on nasopharyngeal swab specimens. The performance of the FilmArray RP has not been established in individuals who received influenza vaccine. Recent administration of a nasal influenza vaccine may cause false positive results for Influenza A and/orInfluenza B. [facility] [id number] 13:14:00 Test Item Value Reference Range Interpretation Comments HUMAN METAPNEUMOVIRUS Not detected Not detected, (BEAKER) (test code = 2683) Equivocal RHINOVIRUS (BEAKER) (test Not detected Not detected, code = 2684) Equivocal INFLUENZA A (BEAKER) (test Not detected Not detected, code = 2685) Equivocal INFLUENZA A (NO SUBTYPE) (test code = 3606) INFLUENZA A SUBTYPE H1 (BEAKER) (test code = 2686) INFLUENZA A SUBTYPE H3 (BEAKER) (test code = 2687) INFLUENZA A SUBTYPE H1-2009 (BEAKER) (test code = 3198) INFLUENZA B (BEAKER) (test Not detected Not detected, code = 2688) Equivocal RESPIRATORY SYNCYTIAL VIRUS Not detected Not detected, (BEAKER) (test code = 3199) Equivocal PARAINFLUENZA VIRUS 1 Not detected Not detected, (BEAKER) (test code = 2691) Equivocal PARAINFLUENZA VIRUS 2 Not detected Not detected, (BEAKER) (test code = 2692) Equivocal PARAINFLUENZA VIRUS 3 Not detected Not detected, (BEAKER) (test code = 2693) Equivocal PARAINFLUENZA VIRUS 4 Not detected Not detected, (BEAKER) (test code = 3200) Equivocal ADENOVIRUS (BEAKER) (test Not detected Not detected, code = 2694) Equivocal CORONAVIRUS 229E (BEAKER) Not detected Not detected, (test code = 3201) Equivocal CORONAVIRUS HKU1 (BEAKER) Not detected Not detected, (test code = 3202) Equivocal CORONAVIRUS NL63 (BEAKER) Not detected Not detected, (test code = 3203) Equivocal CORONAVIRUS OC43 (BEAKER) Not detected Not detected, (test code = 3204) Equivocal BORDETELLA PERTUSSIS Not detected Not detected, (BEAKER) (test code = 3205) Equivocal CHLAMYDOPHILA PNEUMONIAE Not detected Not detected, (BEAKER) (test code = 3206) Equivocal MYCOPLASMA PNEUMONIAE Not detected Not detected, (BEAKER) (test code = 3207) Equivocal Other viruses and bacteria not targeted by this PCR panel cannot be excluded; therefore clinical correlation and follow up of serology, culture results, and other molecular studies is required. The results are not intended to be used as the sole means for clinical diagnosis or patient management decisions. This sample was tested at the [facility] Molecular Diagnostics Laboratory using the [employer] Respiratory Panel. It is FDA cleared and has been verified and approved by the [facility] Molecular Diagnostics Laboratory for clinical use on nasopharyngeal swab specimens.The performance of the FilmArrayRP has not been established in individuals who received influenza vaccine. Recent administration ofa nasal influenza vaccine may cause false positive results for Influenza A and/orInfluenza B.POC-Glucose [id number] 13:03:00 Test Item Value Reference Range Interpretation Comments POC-Glucose Meter (test 258 mg/dL 70-110 H : TE STED AT [facility] code = 1538) [address] [facility], 770 30: Tobacco Warehouse Agent/Techni bravo ID = [id number] for Fartun Hancock ey Lab Interpretation (test Abnormal code = 44517-8) [facility]CT-GLU[facility]SE [id number] 13:03:00 Test Item Value Reference Range Interpretation Comments POC-GLUCOSE METER 258 mg/dL 70-110 H : TESTED A T [facility] 6720 (BEAKER) (test code = [facility], 153) 09387: Tobacco Warehouse Agent/Techni bravo ID = [id number] for Kera onofreYue tong POCT-GLUCOSE [id number] 08:53:00 Test Item Value Reference Range Interpretation Comments POC-GLUCOSE METER 197 mg/dL 70-110 H : TESTED A T [facility] 6720 (BEAKER) (test code = [facility], 153) 95301: Tobacco Warehouse Agent/Techni bravo ID = [id number] for JOSE LUIS MIX POCT-GLUCOSE [id number] 23:16:00 Test Item Value Reference Range Interpretation Comments POC-GLUCOSE METER 246 mg/dL 70-110 H : TESTED A T [facility] 6720 (BEAKER) (test code = [facility], 153) 26634: Tobacco Warehouse Agent/Techni bravo ID = [id number] for GONZÁLEZ SIMS POCT-GLUCOSE [id number] 18:13:00 Test Item Value Reference Range Interpretation Comments POC-GLUCOSE METER 254 mg/dL 70-110 H : TESTED A T [facility] 6720 (BEAKER) (test code = [facility], 153) 65908: Tobacco Warehouse Agent/Techni bravo ID = [id number] for ST [facility], NADA POCT-GLUCOSE [id number] 13:25:00 Test Item Value Reference Range Interpretation Comments POC-GLUCOSE METER 201 mg/dL 70-110 H : TESTED A T [facility] 6720 (BEAKER) (test code = [facility], 153) 14467: Tobacco Warehouse Agent/Techni bravo ID = [id number] for ST [facility], NADA POCT-GLUCOSE [id number] 08:22:00 Test Item Value Reference Range Interpretation Comments POC-GLUCOSE METER 184 mg/dL 70-110 H : TESTED A T [facility] 6720 (BEAKER) (test code = [facility], 1538) 60909: Tobacco Warehouse Agent/Techni bravo ID = [id number] for RILEY KNOX POCT-GLUCOSE [id number] 23:53:00 Test Item Value Reference Range Interpretation Comments POC-GLUCOSE METER 297 mg/dL 70-110 H : TESTED A T [facility] 6720 (BEAKER) (test code = [facility], 153) [address]: Tobacco Warehouse Agent/Techni bravo ID = [id number] for MICHAEL CRAIG POCT-GLUCOSE [id number] 18:55:00 Test Item Value Reference Range Interpretation Comments POC-GLUCOSE METER 256 mg/dL 70-110 H : TESTED A T [facility] 6720 (BEAKER) (test code = [facility], 153) [address]: Tobacco Warehouse Agent/Techni bravo ID = [id number] for DO BBDAVID, OFELIA POCT-GLUCOSE [id number] 18:49:00 Test Item Value Reference Range Interpretation Comments POC-GLUCOSE METER 213 mg/dL 70-110 H : TESTED A T [facility] 6720 (BEAKER) (test code = [facility], 153) [address]: Tobacco Warehouse Agent/Techni bravo ID = [id number] for DO BBINS, OFELIA POCT-GLUCOSE [id number] 18:44:00 Test Item Value Reference Range Interpretation Comments POC-GLUCOSE METER 216 mg/dL 70-110 H : TESTED A T [facility] 6720 (BEAKER) (test code = [facility], [facility]) [address]: Tobacco Warehouse Agent/Techni bravo ID = [id number] for DO BBINS, OFELIA CBC with platelet count + automated [id number] 09:27:00 Test Item Value Reference Range Interpretation Comments WBC (test code = 6690-2) 5.7 3.5- 10.5 K/L RBC (test code = 789-8) 4.23 3.93- 5.22 M/L MCHC (test code = 786-4) 29.0 32.2- 35.5 GM/DL L Hematocrit (test code = 30.7 % 34.1-44.9 L 4544-3) MCV (test code = 787-2) 72.6 fL 79.4-94.8 L MCH (test code = 785-6) 21.0 pg 25.6-32.2 L RDW (test code = 788-0) 20.2 % 11.7-14.4 H Platelets (test code = 74 150- 450 K/CU MM L 777-3) MPV (test code = [place] 18266-6) to abnormal Felipe telet population distribution. nRBC (test code = 413) 0 0- 0 /100 WBC % Neutros (test code = 58 % 429) % Lymphs (test code = 25 % 430) % Monos (test code = 14 % 431) % Eos (test code = 432) 3 % % Baso (test code = 437) 0 % # Neutros (test code = 3.30 1.56- 6.13 K/L 670) # Lymphs (test code = 1.40 1.18- 3.74 K/L 414) # Monos (test code = 0.80 0.24- 0.36 K/L H 415) # Eos (test code = 416) 0.14 0.04- 0.36 K/L # Baso (test code = 417) 0.01 0.01- 0.08 K/L Immature 0 % 0-1 Granulocytes-Relative (test code = 2801) Lab Interpretation (test Abnormal code = 26011-5) [facility] W/PLT COUNT & AUTO [id number] 09:27:00 Test Item Value Reference Range Interpretation Comments WHITE BLOOD CELL COUNT 5.7 K/ L 3.5-10.5 (BEAKER) (test code = 775) RED BLOOD CELL COUNT 4.23 M/ L 3.93-5.22 (BEAKER) (test code = 761) HEMOGLOBIN (BEAKER) 8.9 GM/DL 11.2-15.7 L (test code = 410) HEMATOCRIT (BEAKER) 30.7 % 34.1-44.9 L (test code = 411) MEAN CORPUSCULAR VOLUME 72.6 fL 79.4-94.8 L (BEAKER) (test code = 753) MEAN CORPUSCULAR 21.0 pg 25.6-32.2 L HEMOGLOBIN (BEAKER) (test code = 751) MEAN CORPUSCULAR 29.0 GM/DL 32.2-35.5 L HEMOGLOBIN CONC (BEAKER) (test code = 752) RED CELL DISTRIBUTION 20.2 % 11.7-14.4 H WIDTH (BEAKER) (test code = 412) PLATELET COUNT (BEAKER) 74 K/CU MM 150-450 L (test code = 756) MEAN PLATELET VOLUME Unable to report due (BEAKER) (test code = to abn ormal Platelet 754) population distribution. NUCLEATED RED BLOOD 0 /100 WBC 0-0 CELLS (BEAKER) (test code = 413) NEUTROPHILS RELATIVE 58 % PERCENT (BEAKER) (test code = 429) LYMPHOCYTES RELATIVE 25 % PERCENT (BEAKER) (test code = 430) MONOCYTES RELATIVE 14 % PERCENT (BEAKER) (test code = 431) EOSINOPHILS RELATIVE 3 % PERCENT (BEAKER) (test code = 432) BASOPHILS RELATIVE 0 % PERCENT (BEAKER) (test code = 437) NEUTROPHILS ABSOLUTE 3.30 K/ L 1.56-6.13 COUNT (BEAKER) (test code = 670) LYMPHOCYTES ABSOLUTE 1.40 K/ L 1.18-3.74 COUNT (BEAKER) (test code = 414) MONOCYTES ABSOLUTE 0.80 K/ L 0.24-0.36 H COUNT (BEAKER) (test code = 415) EOSINOPHILS ABSOLUTE 0.14 K/ L 0.04-0.36 COUNT (BEAKER) (test code = 416) BASOPHILS ABSOLUTE 0.01 K/ L 0.01-0.08 COUNT (BEAKER) (test code = 417) IMMATURE 0 % 0-1 GRANULOCYTES-RELATIVE PERCENT (BEAKER) (test code = 2801) POCT-GLUCOSE [id number] 00:33:00 Test Item Value Reference Range Interpretation Comments POC-GLUCOSE METER 330 mg/dL 70-110 H : Notified RN/MD: (SAIDA) (test code = TESTED AT [place] [address] 1533) [facility], [address]: Tobacco Warehouse Agent/Techni bravo ID = [id number] for Kathryn Hidalgo POCT-GLUCOSE [id number] 18:45:00 Test Item Value Reference Range Interpretation Comments POC-GLUCOSE METER 335 mg/dL 70-110 H : Notified RN/MD: (SAIDA) (test code = TESTED AT [place] [address] 15[address]) [place], [address]: Tobacco Warehouse Agent/Techni bravo ID = [id number] for JASE TYLER Blood gas, [id number] 15:34:00 Test Item Value Reference Range Interpretation Comments pH, Arterial (test code = 7.45 7.35-7.45 2744-1) pCO2, Arterial (test code 35 35- 45 mmHg = 2019-8) pO2, Arterial (test code = 76 80- 90 mmHg L 2703-7) O2 Sat, Arterial (test 95.8 % 96-97 L code = 2708-6) HCO3, Arterial (test code 24 mmol/L 21-29 = 1960-4) Base Excess, Arterial 0.0 mmol/L -2-3 (test code = 1925-7) Patient Temperature (test 37.0 C code = 8310-5) FIO2 (test code = 1819) 21 % MARY (test code = MARY) Please obtain the ABG AFTER the patient has been upright for 15 minutes. Lab Interpretation (test Abnormal code = 85697-0) [facility], [id number] 15:34:00 Test Item Value Reference Range Interpretation Comments PH ARTERIAL (BEAKER) (test code = 7.45 7.35-7.45 383) PCO2 ARTERIAL (BEAKER) (test code 35 mmHg 35-45 = 384) PO2 ARTERIAL (BEAKER) (test code = 76 mmHg 80-90 L 385) O2 SATURATION ARTERIAL (BEAKER) 95.8 % 96.0-97.0 L (test code = 386) HCO3 ARTERIAL (BEAKER) (test code 24 mmol/L 21-29 = 388) BASE EXCESS ARTERIAL (BEAKER) 0.0 mmol/L -2.0-3.0 (test code = 387) PATIENT TEMPERATURE (BEAKER) (test 37.0 C code = 1818) FIO2 (BEAKER) (test code = 1819) 21.0 % Please obtain the ABG AFTER the patient has been upright for 15 minutes. Mitochondrial Ab [id number] 15:22:00 Test Item Value Reference Range Interpretation Comments Anti-Mitocho NEGATIVE NEGATIVE This test was developed nd Abs (test and its analyti janett code = performance 1403739) characteristics havebeen determined by [facility].It h as not been cleared or approved by FDA. This as say has been validatedp ursuant to the CLIA reg ulations and is used for clinical purposes. MARY (test Performing Lab code = MARY) [facility] [address] [place] [address] Sue Lopes MD, PhD, JUAN DAVID [facility] Hospital[facility]ochondrial Ab [id number] 15:22:00 Test Item Value Reference Range Interpretation Comments Mitochondrial Ab TNP <1:20 Test Not Titer (test code = Performed . 0032327) Screening test Negative or Not Detected. Titer notperformed. MARY (test code = Performing Lab MARY) [facility] [address] [place] [address] Sue Lopes MD, PhD, JUAN DAVID [facility] [id number] 10:59:00 Test Item Value Reference Range Interpretation Comments POC-GLUCOSE METER 185 mg/dL 70-110 H : TESTED A T [facility] 6720 (BEAKER) (test code = [facility], 1538) [address]: Tobacco Warehouse Agent/Techni bravo ID = [id number] for MARIA GUADALUPE COX POCT-GLUCOSE [id number] 07:44:00 Test Item Value Reference Range Interpretation Comments POC-GLUCOSE METER 235 mg/dL 70-110 H : TESTED A T [facility] 6720 (BEAKER) (test code = [facility], 1538) [address]: Tobacco Warehouse Agent/Techni bravo ID = [id number] for TE KARAN TWYLA Bilirubin, [id number] 06:38:00 Test Item Value Reference Range Interpretation Comments Bilirubin, Direct (test 0.3 mg/dL 0.1-0.5 Spec imen slightly code = 1968-7) hemolyzed Lab Interpretation (test Normal code = 05826-6) [facility] HospitalBILIRUBIN, [id number] 06:38:00 Test Item Value Reference Range Interpretation Comments BILIRUBIN DIRECT 0.3 mg/dL 0.1-0.5 Specimen sl ightly (BEAKER) (test code = hemoly zed 706) Prepare Leuko-Red [id number] 23:54:00 Test Item Value Reference Range Interpretation Comments CROSSMATCH (test code = 2264) COMPATIBLE Unit ABO (test code = A Pos 5920020) UNIT NUMBER (test code = [id number] 934-0) Status (test code = 1864515) TX_TIMEINCBANNERT Blood Bank Product (test code RED BLOOD CELLS = 2263) PRODUCT CODE (test code = V1305V29 933-2) [facility] [id number] 23:23:00 Test Item Value Reference Range Interpretation Comments POC-GLUCOSE METER 367 mg/dL 70-110 H : TESTED A T [facility] 6720 (BEAKER) (test code = [facility], 1538) [address]: Tobacco Warehouse Agent/Techni bravo ID = [id number] for MICHAEL CRAIG POCT-GLUCOSE [id number] 18:06:00 Test Item Value Reference Range Interpretation Comments POC-GLUCOSE METER 296 mg/dL 70-110 H : TESTED A T [facility] 6720 (BEAKER) (test code = [facility], 1538) [address]: Tobacco Warehouse Agent/Techni bravo ID = [id number] for RE AVELINA VÁSQUEZO POCT-GLUCOSE [id number] 13:06:00 Test Item Value Reference Range Interpretation Comments POC-GLUCOSE METER 234 mg/dL 70-110 H : TESTED A T [facility] 6720 (BEAKER) (test code = [facility], 1538) [address]: Tobacco Warehouse Agent/Techni bravo ID = [id number] for MAYO KARAN, TWYLA CT, ABDOMEN, [id number] 12:02:00Please scan with liver protocolFINAL REPORT TECHNIQUE: CT of the abdomen WITHOUT and WITH intravenous contrast and WITHOUT oral contrast. Dose modulation, iterative reconstruction, and/or weight-based adjustment of the mA/kV was utilized to reduce the radiation dose to as low as reasonably achievable. INDICATION: Cirrhosis or Fatty Liver. COMPARISON: None. FINDINGS: LOWER THORAX: Small bilateral pleural effusions with atelectasis. HEPATOBILIARY: The gallbladder is distended, possibly due to fasting. No biliary ductal dilatation. Nodular, cirrhotic liver. No focal hepatic lesions. SPLEEN: 14.2 cm splenomegaly. A cyst in the spleen measures 1 cm.PANCREAS: No focal masses or ductal dilatation. ADRENALS: No adrenal nodules.KIDNEYS/URETERS: No hydronephrosis, stones, or solid mass lesions. A mildly hyperdense cyst in the right lower pole measures 0.9 cm. This is most likely hemorrhagic cyst. Other bilateralrenal hypodensities are too small to accurately characterize and measure up to 0.5 cm. PERITONEUM/RETROPERITONEUM: Moderate volume ascites. No free air.LYMPH NODES: No lymphadenopathy.VESSELS: Recanalized periumbilical vein. Prominent portal systemic collateral in the pelvis between the inferior mesenteric vein and inferior vena cava. GI TRACT: No distention or wall thickening. BONES AND SOFT TISSUES: Bilateral breast prostheses. IMPRESSION: 1.No focal hepatic lesions. 2.Cirrhosis with sequelae of portal hypertension including a recanalized periumbilical vein, splenomegaly, and moderate volume ascites. 3.Small bilateral pleural effusions. Signed: Hanh Dior MDReport Verified Date/Time: 09/16/2019 12:02:29 Reading Location: [address] Body Reading Room CT abdomen without & with IV [id number] 12:02:00Interface, External Ris In - 09/16/2019 12:04 PM CDTFINAL REPORT TECHNIQUE: CT of the abdomen WITHOUT and WITH intravenous contrast and WITHOUT oral contrast. Dose modulation, ite rative reconstruction, and/or weight-based adjustment of the mA/kV was utilized to reduce the radiation dose to as low as reasonably achievable. INDICATION: Cirrhosis or Fatty Liver. COMPARISON: None.FINDINGS: LOWER THORAX: Small bilateral pleural effusions with atelectasis. HEPATOBILIARY: The gallbladder is distended, possibly due to fasting. No biliary ductal dilatation. Nodular, cirrhotic liver.No focal hepatic lesions. SPLEEN: 14.2 cm splenomegaly. A cyst in the spleen measures 1 cm.PANCREAS:No focal masses or ductal dilatation. ADRENALS: No adrenal nodules.KIDNEYS/URETERS: No hydronephrosis, stones, or solid mass lesions. A mildly hyperdense cyst in the right lower pole measures 0.9 cm. This is most likely hemorrhagic cyst. Other bilateral renal hypodensities are too small to accurately characterize and measure up to 0.5 cm. PERITONEUM/RETROPERITONEUM: Moderate volume ascites. No free air.LYMPH NODES: No lymphadenopathy.VESSELS: Recanalized periumbilical vein. Prominent portal systemiccollateral in the pelvis between the inferior mesenteric vein and inferior vena cava. GI TRACT: No distention or wall thickening. BONES AND SOFT TISSUES: Bilateral breast prostheses. IMPRESSION: 1.No focal hepatic lesions. 2.Cirrhosis with sequelae of portal hypertension including a recanalized perium bilical vein, splenomegaly, and moderate volume ascites. 3.Small bilateral pleural effusions. Signed: Hanh Dior MDReport Verified Date/Time: 09/16/2019 12:02:29 Reading Location: [facility] C013Y CT BodyReading Room [facility] MINUTE WALK(FOR LUNG TRANSPLANT ONLY)2019-09-16 11:02:00Rory Bauer, CORPORATE HEALTH CONSULTANT, BASTING CLEANER 09/16/2019 11:52 [facility] PFT CHARTING REPORT Infection Control/Hand Hygiene procedures followed throughout the encounter with patient: YesPatient Identification Method: Patient name verified on armband, and Medical record on armband, Is the order complete?: Yes Account ID#: [id number] Name: Rena Sinclair Birthdate: Age: 68 y.o. Sex: female Admission Date: 09/14/2019 Patient Status: Inpatient Reasons/Symptom for having the Test?: a history/complaint of a dyspnea and the need of pre-op transplant evaluation Type of study/treatment ordered by physician: 6 minute walk Lab R esults Component Value Date HGB 9.5 (L) 09/16/2019 Ranges: Adult Male 13 - 16.8 g/dl Adult Female 12 - 15 g/dl 6 Minute Walk (read only) 09/16/2019 09/16/2019 09/16/2019 BP Pre - 152/61 - Start Time [...] N Tank Carried? - - N End Time- - 11:08 AM David Perceived Exertion Scale Post - - 4 Study Date: 09/16/2019 Study Time: 1102 ASSESSMENT History & Physical Mode of Arrival: Wheel chair Pulse: 72 Resp: 18 SPO2: 98 % WA Pain Assessment Pain:None TESTING/THERAPEUTICS Medications ordered or required for procedure: N/A PT EDUCATION/INSTRUCTIONS Barriers to learning: No known barriers to learning. Learning need identified: Yes, Patient/Family/Guradian was informed of the o rdered study by the physician Barriers to performing study or treatment: Patient has no known disability to perform the study or treatment. DISCHARGE The study was completed in accordance with the physician's order and patient released from the lab without adverse outcome.[facility]PO[facility] METER 2019-09-16 10:32:00 Test Item Value Reference Range Interpretation Comments POC-GLUCOSE METER 241 mg/dL 70-110 H : TESTED Bette T [facility] 6720 (BEAKER) (test code = [place], 1538) [address]: Tobacco Warehouse Agent/Techni bravo ID = [id number] for NAVI YESSENIA VÁSQUEZLORA Basic metabolic [id number] 07:48:00 Test Item Value Reference Range Interpretation Comments Sodium (test code = 135 meq/L 136-145 L 2951-2) Potassium (test code = 3.7 meq/L 3.5-5.1 2823-3) Chloride (test code = 103 meq/L 98-107 2075-0) CO2 (test code = 25 meq/L 22-29 2028-9) BUN (test code = 12 mg/dL 7-21 3094-0) Creatinine (test code = 0.80 mg/dL 0.57-1.25 2160-0) Glucose (test code = 269 mg/dL 70-105 H 2345-7) Calcium (test code = 8.6 mg/dL 8.4-10.2 94071-7) EGFR (test code = 71 mL/min/1.73 [place] [address]-7) NOT ACCURATE CREATININE CLEARANCE IN PREDICTING GLOMERULAR FILTRATION RATE . ESTIMATED GFR I S NOT APPLICABLE FOR DIALYSIS PATIEN TS. Lab Interpretation Abnormal (test code = 70108-7) [facility] HospitalHepatic function [id number] 07:48:00 Test Item Value Reference Range Interpretation Comments Protein, Total (test code = 2885-2) 7.3 6.0- 8.3 gm/dL Albumin (test code = 26536-9) 3.3 g/dL 3.5-5 L Total Bilirubin (test code = 1.1 mg/dL 0.2-1.2 1975-2) Bilirubin, Direct (test code = 0.6 mg/dL 0.1-0.5 H 1967-7) Alkaline Phosphatase (test code = 91 U/L 40-150 6768-6) AST (test code = 1920-8) 48 U/L 5-34 H ALT (test code = 1742-6) 20 U/L 6-55 Lab Interpretation (test code = Abnormal 14576-5) [facility] HospitalHEPATIC FUNCTION [id number] 07:48:00 Test Item Value Reference Range Interpretation Comments TOTAL PROTEIN (BEAKER) (test code = 7.3 gm/dL 6.0-8.3 770) ALBUMIN (BEAKER) (test code = 1145) 3.3 g/dL 3.5-5.0 L BILIRUBIN TOTAL (BEAKER) (test code 1.1 mg/dL 0.2-1.2 = 377) BILIRUBIN DIRECT (BEAKER) (test 0.6 mg/dL 0.1-0.5 H code = 706) ALKALINE PHOSPHATASE (BEAKER) (test 91 U/L 40-150 code = 346) AST (SGOT) (BEAKER) (test code = 48 U/L 5-34 H 353) ALT (SGPT) (BEAKER) (test code = 20 U/L 6-55 347) BASIC METABOLIC [id number] 07:48:00 Test Item Value Reference Range Interpretation Comments SODIUM (BEAKER) 135 meq/L 136-145 L (test code = 381) POTASSIUM (BEAKER) 3.7 meq/L 3.5-5.1 (test code = 379) CHLORIDE (BEAKER) 103 meq/L 98-107 (test code = 382) CO2 (BEAKER) (test 25 meq/L 22-29 code = 355) BLOOD UREA NITROGEN 12 mg/dL 7-21 (BEAKER) (test code = 354) CREATININE (BEAKER) 0.80 mg/dL 0.57-1.25 (test code = 358) GLUCOSE RANDOM 269 mg/dL 70-105 H (BEAKER) (test code = 652) CALCIUM (BEAKER) 8.6 mg/dL 8.4-10.2 (test code = 697) EGFR (BEAKER) (test 71 mL/min/1.73 ESTIMA CRISTOPHER GFR IS code = 1092) sq m NOT ACCURATE CREATININE CLEARANCE IN PREDICTING GLOMERULAR FILTRATION RATE . ESTIMATED GFR I S NOT APPLICABLE FOR DIALYSIS PATIEN TS. Prothrombin time/[id number] 07:16:00 Test Item Value Reference Range Interpretation Comments Protime (test code = 15.9 11.9- 14.2 H 5902-2) seconds INR (test code = 1.3 <=5.9 6301-6) MARY (test code = MARY) Effective 04/13/2019: PT Reference Range ChangeNew: 11.9-14.2 Previous: 11.7-14.7 RECOMMENDED COUMADIN/WARFARIN INR THERAPY RANGESSTANDARD DOSE: 2.0-3.0 Includes: PROPHYLAXIS for venous thrombosis, systemic embolization; TREATMENT for venous thrombosis and/or pulmonary embolus.HIGH RISK: Target INR is 2.5-3.5 for patients wiht mechanical heart valves. Lab Interpretation Abnormal (test code = 07499-5) [facility] HospitalPROTHROMBIN TIME/[id number] 07:16:00 Test Item Value Reference Range Interpretation Comments PROTIME (BEAKER) (test code = 15.9 seconds 11.9-14.2 H 759) INR (BEAKER) (test code = 370) 1.3 <=5.9 Effective 04/13/2019: PT Reference Range ChangeNew: 11.9-14.2 Previous: 11.7- 14.7RECOMMENDED COUMADIN/WARFARIN INR THERAPY RANGESSTANDARD DOSE: 2.0-3.0 Includes: PROPHYLAXIS for venous thrombosis, systemic embolization; TREATMENT for venous thrombosis and/or pulmonary embolus.HIGH RISK: Target INR is2.5-3.5 for patients wiht mechanical heart valves.POCT-GLUCOSE [id number] 06:57:00 Test Item Value Reference Range Interpretation Comments POC-GLUCOSE METER 241 mg/dL 70-110 H : TESTED A T [facility] 6720 (BEAKER) (test code = [place], 1538) [address]: Tobacco Warehouse Agent/Techni bravo ID = [id number] for AL BETH CBC W/PLT COUNT & AUTO [id number] 06:53:00 Test Item Value Reference Range Interpretation Comments WHITE BLOOD CELL COUNT 4.5 K/ L 3.5-10.5 (BEAKER) (test code = 775) RED BLOOD CELL COUNT 4.60 M/ L 3.93-5.22 (BEAKER) (test code = 761) HEMOGLOBIN (BEAKER) 9.5 GM/DL 11.2-15.7 L (test code = 410) HEMATOCRIT (BEAKER) 33.4 % 34.1-44.9 L (test code = 411) MEAN CORPUSCULAR VOLUME 72.6 fL 79.4-94.8 L (BEAKER) (test code = 753) MEAN CORPUSCULAR 20.7 pg 25.6-32.2 L HEMOGLOBIN (BEAKER) (test code = 751) MEAN CORPUSCULAR 28.4 GM/DL 32.2-35.5 L HEMOGLOBIN CONC (BEAKER) (test code = 752) RED CELL DISTRIBUTION 18.1 % 11.7-14.4 H WIDTH (BEAKER) (test code = 412) PLATELET COUNT (BEAKER) 63 K/CU MM 150-450 L (test code = 756) MEAN PLATELET VOLUME Unable to report due (BEAKER) (test code = to abn ormal Platelet 754) population distribution. NUCLEATED RED BLOOD 0 /100 WBC 0-0 CELLS (BEAKER) (test code = 413) NEUTROPHILS RELATIVE 84 % PERCENT (BEAKER) (test code = 429) LYMPHOCYTES RELATIVE 9 % PERCENT (BEAKER) (test code = 430) MONOCYTES RELATIVE 7 % PERCENT (BEAKER) (test code = 431) EOSINOPHILS RELATIVE 0 % PERCENT (BEAKER) (test code = 432) BASOPHILS RELATIVE 0 % PERCENT (BEAKER) (test code = 437) NEUTROPHILS ABSOLUTE 3.76 K/ L 1.56-6.13 COUNT (BEAKER) (test code = 670) LYMPHOCYTES ABSOLUTE 0.40 K/ L 1.18-3.74 L COUNT (BEAKER) (test code = 414) MONOCYTES ABSOLUTE 0.30 K/ L 0.24-0.36 COUNT (BEAKER) (test code = 415) EOSINOPHILS ABSOLUTE 0.00 K/ L 0.04-0.36 L COUNT (BEAKER) (test code = 416) BASOPHILS ABSOLUTE 0.01 K/ L 0.01-0.08 COUNT (BEAKER) (test code = 417) IMMATURE 0 % 0-1 GRANULOCYTES-RELATIVE PERCENT (BEAKER) (test code = 2801) Prepare [id number] 23:54:00 Test Item Value Reference Range Interpretation Comments CROSSMATCH (test code = 2264) COMPATIBLE Unit ABO (test code = A Pos 1628298) UNIT NUMBER (test code = [id number] 934-0) Status (test code = 8386415) TX_TIMEINCHART Blood Bank Product (test code RED BLOOD CELLS = 2263) PRODUCT CODE (test code = Z1796A03 933-2) [facility] [id number] 17:32:00 Test Item Value Reference Range Interpretation Comments POC-GLUCOSE METER 259 mg/dL 70-110 H : TESTED A T [facility] 6720 (BEAKER) (test code = [place], 1538) [address]: Tobacco Warehouse Agent/Techni bravo ID = [id number] for TWYLA HAWKINS Limited 2D [id number] 15:42:02Ejection FractionSLE ECHO HEARTLAB MKCKESSON CPACSInterface, External Ris In - 09/15/2019 3:42 PM CDTTransthoracic Echocardiography Report (TTE) Demographics Patient Name RENA SINCLAIR Date of Study 09/15/2019 Gender Female Visit Number [id number] Race Unknown Room Number 754 Number Date of 1950 Referring [facility] Physician Age 68 year(s) Pet Care Associate JOY Hatch, RDCS,RVT,RDMS Vp Public Relations Mary Jaramillo, Interpreting Leodan Sloan MD RDCS Physician Procedure Type of Study TTE procedure:LIMITED 2D ECHOCARDIOGRAM (Routine) Indications:Liver transplant evaluation.Clinical HistoryCirrhosis, COPD, HTN, DM, Asthma, ObesityHGB 6.9HCT 24.7 %Contrast Medium: Bubble Study.Height: 65 inches Weight: 97.52 kg (215 lbs) BSA: 2.04 m^2 BMI: 35.78 kg/m^2HR: 92 bpm BP: 154/67 mmHg Summary IV saline contrast injection was negative for a PFO (patent foramen ovale) at rest and post Valsalva. IV saline contrast with delayed imaging is suggestive of intra pulmonic shunting. Suggest CHANDRA to further define. Signature Findings Technical Quality: Technically adequate exam. Left Limited 2D exam and Doppler exam to address study indication; Ventricle saline contrast study. Atrial IV saline contrastinjection was negative for a PFO (patent Septum foramen ovale) at rest and post Valsalva . IV saline contrast with delayed imaging is suggestive of intra pulmonic shunting.[facility] [id number] 15:11:00 Test Item Value Reference Range Interpretation Comments POC-GLUCOSE METER 200 mg/dL 70-110 H : Will Rep eat Test: (SAIDA) (test code = Benjai edwin RN/MD: Verify 1538) w/ Lab Draw: TE STED AT [facility] 67[address] [facility], [address]: Tobacco Warehouse Agent/Techni bravo ID = [id number] for NG BARBARA, DANNY Hemoglobin [id number] 13:55:00 Test Item Value Reference Range Interpretation Comments Hemoglobin A1C (test code = 4548-4) 9.4 % 4.3-6.1 H Lab Interpretation (test code = Abnormal 87572-4) [facility]HEMOGLOBIN [id number] 13:55:00 Test Item Value Reference Range Interpretation Comments HEMOGLOBIN A1C (BEAKER) (test code = 9.4 % 4.3-6.1 H 368) RAD, CHEST, 1 VIEW, NON [id number] 13:32:00Reason for exam:->SOBShould this be performed at the bedside?->YesFINAL REPORT INDICATION: SOB COMPARISON: None TECHNIQUE: Single frontal view of the chest. FINDINGS: Lungs and pleura: Clear lungs. No effusion.Heart and mediastinum: Normal heart size. Unremarkable mediastinal contours.Osseous structures: No acute abnormality.Other: None. IMPRESSION: No acute intrathoracic abnormality. Signed: Mildred Pereira Verified Date/Time: 09/15/2019 13:32:27 Reading Location: [facility] Radiology Reading Room XR chest 1 view portable / [id number] 13:32:00Interface, External Ris In - 09/15/2019 1:44 PM CDTFINAL REPORT INDICATION: SOB COMPARISON: None TECHNIQUE: Single frontal view of the chest. FINDINGS: Lungs and pleura: Clear lungs. No effusion.Heart and mediastinum: Normal heart size. Unremarkable mediastinal contours.Osseousstructures: No acute abnormality.Other: None. IMPRESSION: No acute intrathoracic abnormality. Signed: Mildred Pereira Verified Date/Time: 09/15/2019 13:32:27 Reading Location: [facility] Radiology [facility] 2019-09-15 12:11:00 Test Item Value Reference Range Interpretation Comments POC-GLUCOSE METER 227 mg/dL 70-110 H : TESTED A T [facility] 6720 (BEAKER) (test code = [place], 1538) [address]: Tobacco Warehouse Agent/Techni bravo ID = [id number] for MAXX EDWARDS Manual [id number] 09:13:00 Test Item Value Reference Range Interpretation Comments % Neutros (test code = 68 % 2816) % Lymphs (test code = 19 % 2817) % Monos (test code = 3 % 2818) % Eos (test code = 2819) 3 % % Baso (test code = 2820) 7 % # Neutros (test code = 1.43 K/ul 1.56-6.13 L 2830) # Lymphs (test code = 0.40 K/ul 1.18-3.74 L 2831) # Monos (test code = 0.06 K/uL 0.24-0.36 L 2832) # Eos (test code = 2834) 0.06 K/uL 0.04-0.36 # Baso (test code = 2835) 0.15 K/uL 0.01-0.08 H Total Counted (test code 100 = 1351) WBC Morphology (test code Normal = 487) Platelet Morphology (test Normal code = 486) Polychromasia (test code 1+ few = 478) Hypochromia (test code = 1+ few 963) Anisocytosis (test code = 1+ few 961) Microcytes (test code = 1+ few 965) Poikilocytes (test code = 1+ few 966) Schistocytes (test code = 1+ few 765) Elliptocytes (test code = 1+ few 962) Artifact (test code = Present 3432) Platelet Conc (test code Decreased = 3438) MARY (test code = MARY) Received comment: User comments: Slide comments: Lab Interpretation (test Abnormal code = 91614-5) [facility](CELLAVISION MANUAL DIFF)2019-09-15 09:13:00 Test Item Value Reference Range Interpretation Comments NEUTROPHILS - REL 68 % (CELLAVISION)(BEAKER) (test code = 2816) LYMPHOCYTES - REL 19 % (CELLAVISION)(BEAKER) (test code = 2817) MONOCYTES - REL 3 % (CELLAVISION)(BEAKER) (test code = 2818) EOSINOPHILS - REL 3 % (CELLAVISION)(BEAKER) (test code = 2819) BASOPHILS - REL 7 % (CELLAVISION)(BEAKER) (test code = 2820) NEUTROPHILS - ABS 1.43 K/ul 1.56-6.13 L (CELLAVISION)(BEAKER) (test code = 2830) LYMPHOCYTES - ABS 0.40 K/ul 1.18-3.74 L (CELLAVISION)(BEAKER) (test code = 2831) MONOCYTES - ABS 0.06 K/uL 0.24-0.36 L (CELLAVISION)(BEAKER) (test code = 2832) EOSINOPHILS - ABS 0.06 K/uL 0.04-0.36 (CELLAVISION)(BEAKER) (test code = 2834) BASOPHILS - ABS 0.15 K/uL 0.01-0.08 H (CELLAVISION)(BEAKER) (test code = 2835) TOTAL COUNTED (BEAKER) (test code = 100 1351) WBC MORPHOLOGY (BEAKER) (test code Normal = 487) PLT MORPHOLOGY (BEAKER) (test code Normal = 486) POLYCHROMATOPHILLIC RBCS(BEAKER) 1+ few (test code = 478) HYPOCHROMIA (BEAKER) (test code = 1+ few 963) ANISOCYTOSIS (BEAKER) (test code = 1+ few 961) MICROCYTES (BEAKER) (test code = 1+ few 965) POIKILOCYTES (BEAKER) (test code = 1+ few 966) SCHISTOCYTES (BEAKER) (test code = 1+ few 765) ELLIPTOCYTES (BEAKER) (test code = 1+ few 962) ARTIFACT (CELLAVISION)(BEAKER) Present (test code = 3432) PLATELET CONCENTRATION Decreased (CELLAVISION)(BEAKER) (test code = 3438) Received comment: User comments: Slide comments:POCT-GLUCOSE [id number] 08:34:00 Test Item Value Reference Range Interpretation Comments POC-GLUCOSE METER 219 mg/dL 70-110 H : TESTED A T [facility] 6720 (BEAKER) (test code = [place], [address]38) [address]: Tobacco Warehouse Agent/Techni bravo ID = [id number] for Or January arana [id number] 07:30:00 Test Item Value Reference Range Interpretation Comments Ferritin (test code = 2276-4) 11 ng/mL 5-275 Lab Interpretation (test code = Normal 71111-5) [facility] 07:30:00 Test Item Value Reference Range Interpretation Comments FERRITIN (BEAKER) (test code = 361) 11 ng/mL 5-275 Hepatitis A antibody, [id number] 06:17:00 Test Item Value Reference Range Interpretation Comments Hep A IgG (test code = 83381-6) Reactive Nonreactive A Lab Interpretation (test code = Abnormal 26045-0) [facility] ANTIBODY, [id number] 06:17:00 Test Item Value Reference Range Interpretation Comments HEPATITIS A IGG ANTIBODY (BEAKER) Reactive Nonreactive A (test code = 2797) CBC W/PLT COUNT & AUTO [id number] 05:50:00 Test Item Value Reference Range Interpretation Comments WHITE BLOOD CELL COUNT 2.1 K/ L 3.5-10.5 L (BEAKER) (test code = 775) RED BLOOD CELL COUNT 3.48 M/ L 3.93-5.22 L (BEAKER) (test code = 761) HEMOGLOBIN (BEAKER) 6.9 GM/DL 11.2-15.7 L (test code = 410) HEMATOCRIT (BEAKER) 24.7 % 34.1-44.9 L (test code = 411) MEAN CORPUSCULAR VOLUME 71.0 fL 79.4-94.8 L (BEAKER) (test code = 753) MEAN CORPUSCULAR 19.8 pg 25.6-32.2 L HEMOGLOBIN (BEAKER) (test code = 751) MEAN CORPUSCULAR 27.9 GM/DL 32.2-35.5 L HEMOGLOBIN CONC (BEAKER) (test code = 752) RED CELL DISTRIBUTION 17.7 % 11.7-14.4 H WIDTH (BEAKER) (test code = 412) PLATELET COUNT (BEAKER) 60 K/CU MM 150-450 L (test code = 756) MEAN PLATELET VOLUME Unable to report due (BEAKER) (test code = to abn ormal Platelet 754) population distribution. NUCLEATED RED BLOOD 0 /100 WBC 0-0 CELLS (BEAKER) (test code = 413) Comprehensive metabolic [id number] 05:49:00 Test Item Value Reference Range Interpretation Comments Protein, Total (test 5.9 6.0- 8.3 gm/dL L code = 2885-2) Albumin (test code = 2.8 g/dL 3.5-5 L 00056-4) Alkaline Phosphatase 71 U/L 40-150 (test code = 6768-6) Total Bilirubin (test 0.9 mg/dL 0.2-1.2 code = 1974-) Sodium (test code = 137 meq/L 911-978 7698-2) Potassium (test code = 3.8 meq/L 3.5-5.1 2823-3) Chloride (test code = 106 meq/L 98-107 2074-0) CO2 (test code = 25 meq/L -29 2027-9) BUN (test code = 12 mg/dL 7-21 3094-0) Creatinine (test code = 0.76 mg/dL 0.57-1.25 2160-0) Glucose (test code = 250 mg/dL 70-105 H 2345-7) Calcium (test code = 7.7 mg/dL 8.4-10.2 L 94267-0) AST (test code = 47 U/L 5-34 H 1920-8) ALT (test code = 15 U/L 6-55 1742-6) EGFR (test code = 76 mL/min/1.73 [place] [address]-0) NOT ACCURATE CREATININE CLEARANCE IN PREDICTING GLOMERULAR FILTRATION RATE . ESTIMATED GFR I S NOT APPLICABLE FOR DIALYSIS PATIEN TS. Lab Interpretation Abnormal (test code = 91308-9) [facility]PRE[facility]ENSIVE METABOLIC [id number] 05:49:00 Test Item Value Reference Range Interpretation Comments TOTAL PROTEIN 5.9 gm/dL 6.0-8.3 L (BEAKER) (test code = 770) ALBUMIN (BEAKER) 2.8 g/dL 3.5-5.0 L (test code = 1145) ALKALINE PHOSPHATASE 71 U/L 40-150 (BEAKER) (test code = 346) BILIRUBIN TOTAL 0.9 mg/dL 0.2-1.2 (BEAKER) (test code = 377) SODIUM (BEAKER) (test 137 meq/L 136-145 code = 381) POTASSIUM (BEAKER) 3.8 meq/L 3.5-5.1 (test code = 379) CHLORIDE (BEAKER) 106 meq/L 98-107 (test code = 382) CO2 (BEAKER) (test 25 meq/L - code = 355) BLOOD UREA NITROGEN 12 mg/dL 7-21 (BEAKER) (test code = 354) CREATININE (BEAKER) 0.76 mg/dL 0.57-1.25 (test code = 358) GLUCOSE RANDOM 250 mg/dL 70-105 H (BEAKER) (test code = 652) CALCIUM (BEAKER) 7.7 mg/dL 8.4-10.2 L (test code = 697) AST (SGOT) (BEAKER) 47 U/L 5-34 H (test code = 353) ALT (SGPT) (BEAKER) 15 U/L 6-55 (test code = 347) EGFR (BEAKER) (test 76 mL/min/1.73 ESTIMA CRISTOPHER GFR IS code = 1092) sq m NOT ACCURATE CREATININE CLEARANCE IN PREDICTING GLOMERULAR FILTRATION RATE . ESTIMATED GFR I S NOT APPLICABLE FOR DIALYSIS PATIEN TS. Hepatitis B surface [id number] 05:48:00 Test Item Value Reference Range Interpretation Comments Hep B S Ab (test code = 47669-9) <8.0 <8.0 mIU/mL Lab Interpretation (test code = Normal 77748-2) [facility] SURFACE [id number] 05:48:00 Test Item Value Reference Range Interpretation Comments HEPATITIS B SURFACE ANTIBODY < mIU/mL <8.0 (BEAKER) (test code = 647) Gamma Glutamyl Transferase (GGT)2019-09-15 05:44:00 Test Item Value Reference Range Interpretation Comments GGT (test code = 2324-2) 23 U/L 9-64 Lab Interpretation (test code = Normal 36016-8) [facility] HospitalHEPATIC FUNCTION [id number] 05:44:00 Test Item Value Reference Range Interpretation Comments TOTAL PROTEIN (BEAKER) (test code = 5.9 gm/dL 6.0-8.3 L 770) ALBUMIN (BEAKER) (test code = 1145) 2.8 g/dL 3.5-5.0 L BILIRUBIN TOTAL (BEAKER) (test code 0.9 mg/dL 0.2-1.2 = 377) BILIRUBIN DIRECT (BEAKER) (test 0.4 mg/dL 0.1-0.5 code = 706) ALKALINE PHOSPHATASE (BEAKER) (test 71 U/L 40-150 code = 346) AST (SGOT) (BEAKER) (test code = 47 U/L 5-34 H 353) ALT (SGPT) (BEAKER) (test code = 15 U/L 6-55 347) GAMMA GLUTAMYL TRANSFERASE (GGT)2019-09-15 05:44:00 Test Item Value Reference Range Interpretation Comments GAMMA GLUTAMYL TRANSFERASE (BEAKER) 23 U/L 9-64 (test code = 364) Iron, TIBC, % sat. (without ferritin)2019-09-15 05:37:00 Test Item Value Reference Range Interpretation Comments Iron (test code = 2498-4) 17.0 ug/dL 40-160 L TIBC (test code = 2500-7) 436 ug/dL 250-450 Iron % Saturation (test code = 4 % 20-55 L 2502-3) Lab Interpretation (test code = Abnormal 84690-5) [facility] HospitalIRON, TIBC, % SAT. (WITHOUT FERRITIN)2019-09-15 05:37:00 Test Item Value Reference Range Interpretation Comments IRON (BEAKER) (test code = 547) 17.0 ug/dL 40.0-160.0 L TOTAL IRON BINDING CAPACITY 436 ug/dL 250-450 (BEAKER) (test code = 769) IRON % SATURATION (2) (BEAKER) 4 % 20-55 L (test code = 2590) B-type Natriuretic Factor (BNP)2019-09-15 05:32:00 Test Item Value Reference Range Interpretation Comments BNP (test code = 51831-4) 153 pg/mL 0-100 H Lab Interpretation (test code = Abnormal 97617-4) [facility]-TYPE NATRIURETIC FACTOR (BNP)2019-09-15 05:32:00 Test Item Value Reference Range Interpretation Comments B-TYPE NATRIURETIC PEPTIDE (BEAKER) 153 pg/mL 0-100 H (test code = 700) PROTHROMBIN TIME/[id number] 05:23:00 Test Item Value Reference Range Interpretation Comments PROTIME (BEAKER) (test code = 16.2 seconds 11.9-14.2 H 759) INR (BEAKER) (test code = 370) 1.4 <=5.9 Effective 04/13/2019: PT Reference Range ChangeNew: 11.9-14.2 Previous: 11.7- 14.7RECOMMENDED COUMADIN/WARFARIN INR THERAPY RANGESSTANDARD DOSE: 2.0-3.0 Includes: PROPHYLAXIS for venous thrombosis, systemic embolization; TREATMENT for venous thrombosis and/or pulmonary embolus.HIGH RISK: Target INR is2.5-3.5 for patients wiht mechanical heart valves.POCT-GLUCOSE [id number] 21:42:00 Test Item Value Reference Range Interpretation Comments POC-GLUCOSE METER 286 mg/dL 70-110 H : TESTED A T [facility] 6720 (BEAKER) (test code = [facility], 1538) [address]: Tobacco Warehouse Agent/Techni bravo ID = [id number] for NICHOLE ELKINS POCT-GLUCOSE [id number] 19:12:00 Test Item Value Reference Range Interpretation Comments POC-GLUCOSE METER 219 mg/dL 70-110 H : TESTED A T [facility] 6720 (BEAKER) (test code = [facility] [employer] [facility], 1538) [address]: Tobacco Warehouse Agent/Techni bravo ID = [id number] for RUFINO HIGGINS Creatinine, random [id number] 19:07:00 Test Item Value Reference Range Interpretation Comments Creatinine, Ur (test 63.7 mg/dL code = 2161-8) MARY (test code = Reference Range: No MARY) Normals [facility] [id number] 19:07:00 Test Item Value Reference Range Interpretation Comments Sodium Urine (test 66 meq/L code = 2955-3) MARY (test code = MARY) Reference Range: No Normals [facility] HospitalCREATININE, RANDOM [id number] 19:07:00 Test Item Value Reference Range Interpretation Comments CREATININE URINE (BEAKER) (test 63.7 mg/dL code = 375) Reference Range: No NormalsSODIUM, RANDOM [id number] 19:07:00 Test Item Value Reference Range Interpretation Comments SODIUM URINE (BEAKER) (test code = 66 meq/L 243) Reference Range: No NormalsUrinalysis w/Microscopic + Reflex to Culture 2019-09-14 18:51:00 Test Item Value Reference Range Interpretation Comments Color, UA (test code = 5778-6) Yellow Clarity, UA (test code = 5767-9) Clear Specific [place], UA (test code = 1.016 1.001-1.035 5811-5) pH, UA (test code = 5803-2) 5.5 5.0-8.0 Protein, UA (test code = 37012-4) Negative Negative Glucose, UA (test code = 365) Negative Negative Ketones, UA (test code = 2514-8) Negative Negative Bilirubin, UA (test code = 44334-5) Negative Negative Blood, UA (test code = 86247-3) Trace Negative A Nitrite, UA (test code = 5802-4) Negative Negative Leukocytes, UA (test code = 5799-2) Negative Negative Urobilinogen, UA (test code = 0.2 mg/dL 0.2-1 00976-9) RBC, UA (test code = 44786-4) 1 /HPF WBC, UA (test code = 5821-4) 1 /HPF Squam Epithel, UA (test code = 1 /HPF 33915-9) Specimen Source (test code = 2795) Lab Interpretation (test code = Abnormal 48603-6) [facility]URINALYSIS W/ REFLEX URINE [id number] 18:51:00 Test Item Value Reference Range Interpretation Comments COLOR (BEAKER) (test code = 470) Yellow CLARITY (BEAKER) (test code = 469) Clear SPECIFIC GRAVITY UA (BEAKER) (test 1.016 1.001-1.035 code = 468) PH UA (BEAKER) (test code = 467) 5.5 5.0-8.0 PROTEIN UA (BEAKER) (test code = Negative Negative 464) GLUCOSE UA (BEAKER) (test code = Negative Negative 365) KETONES UA (BEAKER) (test code = Negative Negative 371) BILIRUBIN UA (BEAKER) (test code = Negative Negative 462) BLOOD UA (BEAKER) (test code = 461) Trace Negative A NITRITE UA (BEAKER) (test code = Negative Negative 465) LEUKOCYTE ESTERASE UA (BEAKER) Negative Negative (test code = 466) UROBILINOGEN UA (BEAKER) (test code 0.2 mg/dL 0.2-1.0 = 463) RBC UA (BEAKER) (test code = 519) 1 /HPF WBC UA (BEAKER) (test code = 520) 1 /HPF SQUAMOUS EPITHELIAL (BEAKER) (test 1 /HPF code = 516) SOURCE(SAIDA) (test code = 2795) Limited 2D [id number] 18:38:51Ejection FractionSLEH ECHO HEARTLAB MKDALE CPACSInterface, External Ris In - 09/14/2019 6:39 PM CDTTransthoracic Echocardiography Report (TTE) Demographics Patient Name RENA SINCLAIR Date of Study 09/14/2019 Gender Female Visit Number [id number] Race Unknown Room Number 1435 Number Date of 1950 Referring Physician Gerson Mane Age 68 year(s) Pet Care Associate Heladio Cornejo Vp Public Relations Lisa Ron Interpreting Catie Hendricks MD Procedure Type of Study TTE procedure:LIMITED 2D ECHOCARDIOGRAM (Routine) Indications:Shortness of breath.Clinical HistoryDM, HTN, ArthiritisHeight: 65 inches Weight: 97.52 kg (215 lbs) BSA: 2.04 m^2 BMI: 35.78 kg/m^2HR: 86 bpm BP: 117/54 mmHg Summary 1. Normal LV size and function. All segments are normal. Estimated LVEF is normal (>60%) . 2. Normal RV size and function. 3. Grade 1 diastolic dysfunction (impaired relaxation and low-normal LA pressure). 4. Estimated peak systolic PA pressure is 40-45 mmHg . Previous StudyNo prior studies available for comparison. Signature Findings Left Ventricle The left ventricle is chamber size (by PSLAX dimension) is normal (male - LVIDd 4.2-5.8cm) . No evidence of LV hypertrophy. All of the LV segments contract normally . Global LV systolic function normal . Estimated LVEF by qualitative assessment is normal (>60%) . Grade 1 diastolic dysfunction (impaired relaxation and low-normal LA pressure). Left Atrium LA size is moderately enlarged (42-48 ml/m2) . Right Ventricle The right ruthy tricular chamber size and systolic function are within normal limits. Right Atrium RA cavity size is normal . Aortic Valve Mild AoV cusp thickening. MitralValve Mild MV leaflet thickening. Mild mitral regurgitation. Tricuspid Valve Mild tricuspid regurgitation. Estimated peak systolic PA pressure is 40-45 mmHg . Pulmonic Valve Normal PV structure and function by limited views and Doppler. Aorta Aortic root size (SInus of Valsalva diameter) is normal . Pericardium Ascites is visualized. No significant pericardial effusion is visualized. IVC/SVC/PA/PV/Pleural The estimated RA [...] m/s E/A Ratio: 0.81 Peak Gradient: 5.79 mmHg Deceleration Time: 231.1 msec MV Clyde. Peak: Aortic Valve Peak Velocity: 1.89 m/s Mean Velocity: 1.3 m/s Peak Gradient: 14.23 mmHg Mean Gradient: 7.59 mmHg AV Area (continuity): 2.57 cm^2 AV VTI: 36.82 cm AV DVI: 0.87 LVOT Peak Velocity: 1.39 m/s Peak Gradient: 7.73 mmHg Mean Velocity: 1 m/s Mean Gradient: 4.42 mmHg LVOT Diameter: 1.94 cm LVOT VTI: 32.07 cm LVOT Area: 2.96 cm^2 LVOT SV:94.75 ml LVOT CO: 8.15 l/min LVOT CI: 4 l/min/m^2 Tricuspid Valve TR Velocity: 3.03 m/s TR Gradient: 36.83 mmHgPlacentia-Linda HospitalECG 12 [id number] 17:46:29Interface, External Ris In - 09/14/2019 5:46 PM CDTVentricular Rate 89 BPMAtrial Rate 89 BPMP-R Interval 138 msQRS Duration 86 msQ-T Interval 406 msQTC Calculation(Bazett) 493 msP [place] 51 degreesR [place] 19 degreesT [place] 67 degreesNormal sinus rhythmProlonged QTAbnormal ECGNo previous ECGs availableConfirmed by Rosendo GARCIA BASANT ([id number]) on 09/14/2019 5:46:25 PMCHighland HospitalImmunoglobulin M (IgM) 2019-09-14 17:03:00 Test Item Value Reference Range Interpretation Comments IgM (test code = 2464-6) 173 mg/dL 22-293 Lab Interpretation (test code = Normal 12750-6) [facility] HospitalIMMUNOGLOBULIN M (IGM)2019-09-14 17:03:00 Test Item Value Reference Range Interpretation Comments IMMUNOGLOBULIN M (IGM) (BEAKER) 173 mg/dL 22-293 (test code = 638) Pdlsi-3-[id number] 17:00:00 Test Item Value Reference Range Interpretation Comments A-1 Antitrypsin (test code = 104.20 mg/dL 90-200 1825-9) Lab Interpretation (test code = Normal 99060-0) [facility] HospitalALPHA-1-[id number] 17:00:00 Test Item Value Reference Range Interpretation Comments ALPHA-1 ANTITRYPSIN (BEAKER) 104.20 mg/dL 90.00-200.00 (test code = 502) [id number] 15:44:00 Test Item Value Reference Range Interpretation Comments FERRITIN (BEAKER) (test code = 361) 4 ng/mL 5-275 L Hemoglobin and [id number] 14:54:00 Test Item Value Reference Range Interpretation Comments Hemoglobin (test code = 786-4) 7.3 11.2- 15.7 GM/DL L Hematocrit (test code = 4544-3) 25.4 % 34.1-44.9 L Lab Interpretation (test code = Abnormal 72193-5) [facility] HospitalHEMOGLOBIN AND [id number] 14:54:00 Test Item Value Reference Range Interpretation Comments HEMOGLOBIN (BEAKER) (test code = 7.3 GM/DL 11.2-15.7 L 410) HEMATOCRIT (BEAKER) (test code = 25.4 % 34.1-44.9 L 411) IRON, TIBC, % SAT. (WITHOUT FERRITIN)2019-09-14 14:27:00 Test Item Value Reference Range Interpretation Comments IRON (BEAKER) (test code = 547) 17.0 ug/dL 40.0-160.0 L TOTAL IRON BINDING CAPACITY 429 ug/dL 250-450 (BEAKER) (test code = 769) IRON % SATURATION (2) (BEAKER) 4 % 20-55 L (test code = 2590) Immunoglobulin G (IgG)2019-09-14 14:20:00 Test Item Value Reference Range Interpretation Comments IgG (test code = 2465-3) 1276 mg/dL 540-1822 Lab Interpretation (test code = Normal 58983-7) [facility] HospitalIMMUNOGLOBULIN G (IGG)2019-09-14 14:20:00 Test Item Value Reference Range Interpretation Comments IMMUNOGLOBULIN G (IGG) (BEAKER) 1276 mg/dL 540-1,822 (test code = 427) POCT-GLUCOSE [id number] 13:43:00 Test Item Value Reference Range Interpretation Comments POC-GLUCOSE METER 175 mg/dL 70-110 H : Notified RN/MD: TESTED (BEAKER) (test code AT [place] [address] [address] = 1538) [facility] 30: Tobacco Warehouse Agent/Techni bravo ID = [id number] for MOOD Y, SHAWNTELL POCT-GLUCOSE [id number] 09:14:00 Test Item Value Reference Range Interpretation Comments POC-GLUCOSE METER 200 mg/dL 70-110 H : Notified RN/MD: TESTED (BEAKER) (test code AT [place] [address] [address] = 1538) [facility] 30: Tobacco Warehouse Agent/Techni bravo ID = [id number] for MOOD Y, SHAWNTELL ABORH, [id number] 03:57:00 Test Item Value Reference Range Interpretation Comments ABO Grouping (test code = 2588) A Rh Factor (test code = 2589) POS [facility] panel, [id number] 03:41:00 Test Item Value Reference Range Interpretation Comments Hep A IgM (test code = 45489-8) Nonreactive Nonreactive Hep B C IgM (test code = 35598-6) Nonreactive Nonreactive Hepatitis C Ab (test code = Nonreactive Nonreactive 62874-6) HBsAg Screen (test code = 5195-3) Nonreactive Nonreactive Lab Interpretation (test code = Normal 37105-3) [facility] PANEL, [id number] 03:41:00 Test Item Value Reference Range Interpretation Comments HEPATITIS A IGM ANTIBODY (BEAKER) Nonreactive Nonreactive (test code = 498) HEPATITIS B CORE IGM ANTIBODY Nonreactive Nonreactive (BEAKER) (test code = 645) HEPATITIS C ANTIBODY (BEAKER) Nonreactive Nonreactive (test code = 367) HEPATITIS B SURFACE ANTIGEN (2) Nonreactive Nonreactive (BEAKER) (test code = 2585) Type and screen, [id number] 03:34:00 Test Item Value Reference Range Interpretation Comments ABO/RH AUTOMATED (BEAKER) (test A POSITIVE code = 2260) Ab Scrn (test code = 890-4) NEGATIVE [facility] [id number] 03:25:00 Test Item Value Reference Range Interpretation Comments Troponin I (test code = <0.01 0-0.03 83472-3) MARY (test code = MARY) Troponin I (TnI) levels must be interpreted in the context of the presenting symptoms and the clinical findings. Elevated TnI levels indicate myocardial damage, but are not specific for ischemic heart disease. Elevated TnI levels are seen in patients with other cardiac conditions (including myocarditis and congestive heart failure), and slight TnI elevations occur in patients with other conditions, including sepsis, renal failure, acidosis, acute neurological disease, and persistent tachyarrhythmia. Lab Interpretation (test Normal code = 39829-3) [facility] [id number] 03:25:00 Test Item Value Reference Range Interpretation Comments TROPONIN I (BEAKER) (test code = 397) < ng/mL 0.00-0.03 Troponin I (TnI) levels must be interpreted in the context of the presenting symptoms and the clinical findings. Elevated TnI levels indicate myocardial damage, but are not specific for ischemic heart disease. Elevated TnI levels are seen in patients with other cardiac conditions (including myocarditis and congestive heart failure), and slight TnI elevations occur in patients with other conditions, including sepsis, renal failure, acidosis, acute neurological disease, and persistent tachyarrhythmia.B-TYPE NATRIURETIC FACTOR (BNP) 2019-09-14 03:24:00 Test Item Value Reference Range Interpretation Comments B-TYPE NATRIURETIC PEPTIDE (BEAKER) 185 pg/mL 0-100 H (test code = 700) BASIC METABOLIC [id number] 03:12:00 Test Item Value Reference Range Interpretation Comments SODIUM (BEAKER) 138 meq/L 136-145 (test code = 381) POTASSIUM (BEAKER) 4.1 meq/L 3.5-5.1 Specimen slightly (test code = 379) hemolyzed CHLORIDE (BEAKER) 107 meq/L 98-107 (test code = 382) CO2 (BEAKER) (test 23 meq/L 22-29 code = 355) BLOOD UREA NITROGEN 18 mg/dL 7-21 (BEAKER) (test code = 354) CREATININE (BEAKER) 0.78 mg/dL 0.57-1.25 Specimen slightly (test code = 358) hemolyzed GLUCOSE RANDOM 244 mg/dL 70-105 H (BEAKER) (test code = 652) CALCIUM (BEAKER) 8.2 mg/dL 8.4-10.2 L (test code = 697) EGFR (BEAKER) (test 73 mL/min/1.73 ESTIMA CRISTOPHER GFR IS code = 1092) sq m NOT ACCURATE CREATININE CLEARANCE IN PREDICTING GLOMERULAR FILTRATION RATE . ESTIMATED GFR I S NOT APPLICABLE FOR DIALYSIS PATIEN TS. HEPATIC FUNCTION [id number] 03:12:00 Test Item Value Reference Range Interpretation Comments TOTAL PROTEIN (BEAKER) 6.0 gm/dL 6.0-8.3 Speci men slightly (test code = 770) hemolyzed ALBUMIN (BEAKER) (test 2.7 g/dL 3.5-5.0 L Speci men slightly code = 1145) hemolyzed BILIRUBIN TOTAL 0.5 mg/dL 0.2-1.2 Specimen sli ghtly (BEAKER) (test code = hemoly zed 377) BILIRUBIN DIRECT 0.2 mg/dL 0.1-0.5 Specimen sl ightly (BEAKER) (test code = hemoly zed 706) ALKALINE PHOSPHATASE 75 U/L 40-150 (BEAKER) (test code = 346) AST (SGOT) (BEAKER) 44 U/L 5-34 H Specimen slightly (test code = 353) hemolyzed ALT (SGPT) (BEAKER) 17 U/L 6-55 Specimen slightly (test code = 347) hemolyzed PROTHROMBIN [id number] 03:09:00 Test Item Value Reference Range Interpretation Comments PROTIME (BEAKER) (test code = 16.0 seconds 11.9-14.2 H 759) INR (BEAKER) (test code = 370) 1.4 <=5.9 Effective 04/13/2019: PT Reference Range ChangeNew: 11.9-14.2 Previous: 11.7- 14.7RECOMMENDED COUMADIN/WARFARIN INR THERAPY RANGESSTANDARD DOSE: 2.0-3.0 Includes: PROPHYLAXIS for venous thrombosis, systemic embolization; TREATMENT for venous thrombosis and/or pulmonary embolus.HIGH RISK: Target INR is2.5-3.5 for patients wiht mechanical heart valves.CBC W/PLT COUNT & AUTO [id number] 02:56:00 Test Item Value Reference Range Interpretation Comments WHITE BLOOD CELL COUNT 4.8 K/ L 3.5-10.5 (BEAKER) (test code = 775) RED BLOOD CELL COUNT 3.15 M/ L 3.93-5.22 L (BEAKER) (test code = 761) HEMOGLOBIN (BEAKER) 6.1 GM/DL 11.2-15.7 L (test code = 410) HEMATOCRIT (BEAKER) 21.7 % 34.1-44.9 L (test code = 411) MEAN CORPUSCULAR VOLUME 68.9 fL 79.4-94.8 L (BEAKER) (test code = 753) MEAN CORPUSCULAR 19.4 pg 25.6-32.2 L HEMOGLOBIN (BEAKER) (test code = 751) MEAN CORPUSCULAR 28.1 GM/DL 32.2-35.5 L HEMOGLOBIN CONC (BEAKER) (test code = 752) RED CELL DISTRIBUTION 17.4 % 11.7-14.4 H WIDTH (BEAKER) (test code = 412) PLATELET COUNT (BEAKER) 64 K/CU MM 150-450 L (test code = 756) MEAN PLATELET VOLUME Unable to report due (BEAKER) (test code = to abn ormal Platelet 754) population distribution. NUCLEATED RED BLOOD 0 /100 WBC 0-0 CELLS (BEAKER) (test code = 413) NEUTROPHILS RELATIVE 72 % PERCENT (BEAKER) (test code = 429) LYMPHOCYTES RELATIVE 13 % PERCENT (BEAKER) (test code = 430) MONOCYTES RELATIVE 14 % PERCENT (BEAKER) (test code = 431) EOSINOPHILS RELATIVE 2 % PERCENT (BEAKER) (test code = 432) BASOPHILS RELATIVE 0 % PERCENT (BEAKER) (test code = 437) NEUTROPHILS ABSOLUTE 3.42 K/ L 1.56-6.13 COUNT (BEAKER) (test code = 670) LYMPHOCYTES ABSOLUTE 0.61 K/ L 1.18-3.74 L COUNT (BEAKER) (test code = 414) MONOCYTES ABSOLUTE 0.65 K/ L 0.24-0.36 H COUNT (BEAKER) (test code = 415) EOSINOPHILS ABSOLUTE 0.07 K/ L 0.04-0.36 COUNT (BEAKER) (test code = 416) BASOPHILS ABSOLUTE 0.01 K/ L 0.01-0.08 COUNT (BEAKER) (test code = 417) IMMATURE 0 % 0-1 GRANULOCYTES-RELATIVE PERCENT (BEAKER) (test code = 3104)
[2020-06-28] MEDS ORDERED: ONDANSETRON 4 MG/2 ML VIAL ONE (23:32)
[2020-06-28 23:36] LABS: Absolute Lymphocytes (CBC) 0.6 K/uL (0.7-4.9); Basophils % 0.4 % (0-1.3); Hematocrit 31.4 % (36.0-45.0); MPV 9.7 fL (7.6-11.3); RBC Red Blood Cell Count 3.78 M/uL (3.86-4.86)
[2020-06-28] MEDS ORDERED: LABETALOL 20 MG/4ML SYRINGE IV ONE (23:44)
[2020-06-28 23:53] LABS: Protime INR 1.25
[2020-06-28 23:57] LABS: Potassium 3.8 mmol/L (3.5-5.1)
[2020-06-29 00:10] LABS: Blood Morphology Comment NOT SEEN (NOT SEEN); Platelet Estimate DECR; White Blood Cell Scan OK
[2020-06-29] MEDS ORDERED: ASPIRIN 81 MG CHEWABLE TABLET ONE (00:13)
--- NOTE | 2020-06-29 00:14 | ER ---
Nurse's Notes [facility] Name: Rena Burch Age: 69 yrs Sex: Female : 1950 Arrival Date: 06/28/2020 Time: 23:14 Bed 2 Private MD: Diagnosis: Acute ischemic stroke Presentation: 06/28 23:15 Chief complaint: EMS states: we were called out for a patient with a complaint of rr5 facial droop, slurred speech, confuse, crawling on the floor could not get up. last seen normal 4PM. 23:15 Coronavirus screen: Client denies travel out of the [place] in the last 14 days. Initial rr5 Sepsis Screen: Does the patient meet any 2 criteria? No. Patient's initial sepsis screen is negative. Does the patient have a suspected source of infection? No. Patient's initial sepsis screen is negative. Onset of symptoms was June 28, 2020 at 16:00. 23:15 Method Of Arrival: EMS: [facility] rr5 23:22 Ebola Screen: No symptoms or risks identified at this time. Risk Assessment: Do you ea want to hurt yourself or someone else? Patient reports no desire to harm self or others. 23:22 Acuity: CHEIKH 3 ea 23:28 Coronavirus screen: At this time, the client does not indicate any symptoms associated ea with coronavirus-19. 23:31 Note BP 202/178 mmHg, O2 sat 98% blood sugar 154 mg/Dl. from EMS. rr5 Triage Assessment: 23:15 General: Appears in no apparent distress. Behavior is drowsy. rr5 Historical: - Allergies: 23:30 No Known Allergies; ea - Home Meds: 23:34 amlodipine 5 mg tab [Active]; cosentyx [Active]; hydrochlorothiazide 12.5 mg Oral tab rr5 [Active]; Insulin: Novolin R Sub-Q [Active]; Janumet 50-500 mg Oral tab [Active]; lisinopril 20 mg Oral tab [Active]; metoprolol ta-hydrochlorothiaz 100-50 mg Oral tab [Active]; montelukast 10 mg Oral tab [Active]; omeprazole 40 mg Oral cpDR [Active]; - PMHx: 23:30 Psoriatic Arthritis; Hypertension; Diabetes - IDDM; COPD; ea 23:34 fatty liver; rr5 - PSHx: 23:30 Hysterectomy; right ankle; right wrist; double mastectomy; ea - Immunization history:: Adult Immunizations up to date. - Social history:: Smoking status: Patient denies any tobacco usage or history of. Screenin:15 VAN Screening: Arm Drift: Patient shows no arm weakness. Patient is VAN negative. rr5 23:21 Abuse screen: Denies threats or abuse. Nutritional screening: No deficits noted. ea Tuberculosis screening: No symptoms or risk factors identified. Fall Risk IV access (20 points). 23:59 The patient has not been NPO before screening. The patient is alert, able to follow ea commands. The patient does not exhibit slurred or garbled speech The patient is not exhibiting difficulty speaking. The patient does not exhibit difficulty understanding words. The patient is able to swallow own secretions with no drooling or need for suction. Patient tolerated one teaspoon of water. No drooling, immediate coughing, gurgling, or clearing of the throat was noted. The patient tolerated 90mL of water. No drooling, immediate coughing, gurgling, or clearing of the throat was noted. The patient passed the bedside swallow screening. Oral medications may be given as ordered. Contact Physician for further diet orders. Assessment: 23:15 Reassessment: seen and examined by ED provider with order made, send for stat CT scan rr5 of the brain. 23:15 General: Appears in no apparent distress. Behavior is drowsy. rr5 23:15 Pain: Unable to use pain scale. Patient is disoriented. Neuro: Level of Consciousness rr5 is confused, Oriented to person, place, Book Critic are equal bilaterally Speech is slurred, Facial droop on right, Pupils are Pupil Size: 2mm brisk. Cardiovascular: Capillary refill < 3 seconds Patient's skin is warm and dry. Respiratory: Airway is patent Respiratory effort is even, unlabored, Respiratory pattern is regular, symmetrical. GI: Abdomen is distended. : No signs and/or symptoms were reported regarding the genitourinary system. EENT: No signs and/or symptoms were reported regarding the EENT system. Derm: Skin is intact, Skin temperature is warm. Musculoskeletal: Capillary refill < 3 seconds. 23:20 GI: Pt is actively vomiting undigested food, while in CT scan. rr5 08/14 00:00 Reassessment: Patient appears in no apparent distress at this time. no complaints made, rr5 vitally stable. 00:15 Reassessment: report given to "erin" from life flight over the phone. rr5 00:30 Reassessment: report given to leonid MARINA in [facility]. rr5 Vital Signs: 06/28 23:28 BP 223 / 76; Pulse 72; Resp 15; Pulse Ox 100% ; Weight 83.91 kg; Height 5 ft. 5 in. rr5 (165.10 cm); 23:49 BP 165 / 71; Pulse 81; Resp 18; Pulse Ox 99% on R/A; ea 06/29 00:06 BP 164 / 75; Pulse 82; Resp 17; Temp 96.4; Pulse Ox 99% ; rr5 00:20 BP 165 / 71; Pulse 85; Resp 19; Pulse Ox 99% ; rr5 06/28 23:28 Body Mass Index 30.79 (83.91 kg, 165.10 cm) rr5 [place] Coma Score: 06/28 23:15 Eye Response: to voice(3). Verbal Response: confused(4). Motor Response: obeys rr5 commands(6). Total: 13. 14 00:00 Eye Response: spontaneous(4). Verbal Response: confused(4). Motor Response: obeys rr5 commands(6). Total: 14. 00:20 Eye Response: spontaneous(4). Verbal Response: confused(4). Motor Response: obeys rr5 commands(6). Total: 14. NIH Stroke Scale Scores: 06/28 23:30 NIHSS Score: 8 rr5 ED Course: 23:14 Patient arrived in ED. ea 23:15 Forrest Hess MD is Attending Physician. pkl 23:21 Patient has correct armband on for positive identification. Bed in low position. Call ea light in reach. Side rails up X2. 23:22 Triage completed. ea 23:24 CT Stroke Brain w/o Contrast In Process Unspecified. EDMS 23:28 Carlos Oakes, LAINA is Primary Nurse. rr5 23:29 Arm band placed on right wrist. Patient placed in an exam room, on a stretcher, on ea raw hide trimmer, on pulse oximetry. 23:29 Initial lab(s) drawn, by me, sent to lab. Maintain EMS IV. Dressing intact. Good blood sg return noted. Site clean \\T\\ dry. Gauge \\T\\ site: 18 G RAC. IV is patent, is intact, with good blood return, Flushed right antecubital with 5 ml normal saline. 23:35 Initiated transfer to [facility]. Spoke with Aurea Subramanian. Denied transfer ar5 due to bed saturation. 23:40 Initiated transfer to [facility]. Spoke with Carson Perez. ar5 23:56 Acceptance given by Carson Perez. Accepting Dr. Yuli Lee. Report called to ar5 . Notified Carson Perez we needed Life flight. 23:58 Stroke CXR 1 View In Process Unspecified. EDMS 06/29 00:10 Guzman cath inserted, using sterile technique, 16 Fr., by vascular surgeon, balloon inflated, to rr5 gravity drainage, urine specimen collected. 00:41 No provider procedures requiring assistance completed. rr5 00:41 Patient transferred, IV remains in place. intact, No redness/swelling at site. rr5 Administered Medications: 06/28 23:30 Drug: Zofran (Ondansetron) 4 mg Route: IVP; Site: right antecubital; rr5 06/29 00:22 Follow up: Response: No adverse reaction ea 06/28 23:38 Drug: Trandate 20 mg Route: IVP; Site: right antecubital; ea 06/29 00:22 Follow up: Response: No adverse reaction ea 00:04 Drug: Aspirin Chewable Tablet 81 mg Route: PO; ea 00:23 Follow up: Response: No adverse reaction ea Outcome: 00:13 ER care complete, transfer ordered by MD. kraus 00:41 Transferred by helicopter to [facility], Transfer form completed. rr5 00:41 Condition: stable 00:41 Instructed on the need for transfer. 00:43 Patient left the ED. rr5 NIH Stroke Scale - NIH Stroke Score Date: 06/28/2020 Time: 23:30 Total Score = 8 1a. Level of Consciousness (LOC) - 0(Alert) 1b. Level of Consciousness (LOC) (Year \\T\\ Age) - 1(One) 1c. LOC Commands (Open \\T\\ Closes Eyes/Perfect Bind Machine Operator) - 0(Both) 2. Best Gaze (Lateral Gaze Paresis) - 0(Normal) 3. Visual Field Loss - 0(No visual loss) 4. Facial Palsy - 2(Partial paralysis) 5a. Left Arm: Motor (10-second hold) - 0(No drift) 5b. Right Arm: Motor (10-second hold) - 0(No drift) 6a. Left Leg: Motor (5-second hold - always test supine) - 2(Drift, some effort against gravity) 6b. Right Leg: Motor (5-second hold - always test supine) - 2(Drift, some effort against gravity) 7. Limb Ataxia (finger/nose \\T\\ heel/forrester - test with eyes open) - 0(Absent) 8. Sensory Loss (pinprick arms/legs/face) - 0(Normal) 9. Best Language: Aphasia (description/naming/reading) - 0(No aphasia) 10. Dysarthria (speech clarity - read or repeat words) - 1(Mild to Moderate) 11. Extinction and Inattention (visual/tactile/auditory/spatial/personal) - 0(No abnormality) Initials: rr5 Signatures: Dispatcher [employer] EDMasno Foster RN Forrest Ferrer MD MD pkl Antunez, Elena, RN RN ea Roque, Raymond, RN RN rr5 Tammy Blanco5 Corrections: (The following items were deleted from the chart) 06/28 23:32 23:28 BP 223 / 76; Pulse 72bpm; Resp 15bpm; Pulse Ox 100%; ea rr5
--- NOTE | 2020-06-29 00:14 | EDPHYS ---
Physician Documentation [facility] Name: Rena Burch Age: 69 yrs Sex: Female : 1950 Arrival Date: 06/28/2020 Time: 23:14 Bed 2 Private MD: ED Physician Forrest Hess HPI: 06/28 23:59 This 69 yrs old Female presents to ER via EMS with complaints of S/S of pkl Possible Stroke. 23:59 The patient's problem is reported as altered mental status, a facial droop, on right, pkl dysphasia, slurred speech, incoherent speech. Onset: The symptoms/episode began/occurred just prior to arrival. Associated signs and symptoms: Pertinent positives: weakness, difficult ambulating. Daughter said patient was last known at 4 pm. said she was not feeling well and went to sleep. Patient woke up at 7 pm, confused, difficulty ambulating and right facial droop. Historical: - Allergies: 23:30 No Known Allergies; ea - Home Meds: 23:34 amlodipine 5 mg tab [Active]; cosentyx [Active]; hydrochlorothiazide 12.5 mg Oral tab rr5 [Active]; Insulin: Novolin R Sub-Q [Active]; Janumet 50-500 mg Oral tab [Active]; lisinopril 20 mg Oral tab [Active]; metoprolol ta-hydrochlorothiaz 100-50 mg Oral tab [Active]; montelukast 10 mg Oral tab [Active]; omeprazole 40 mg Oral cpDR [Active]; - PMHx: 23:30 Psoriatic Arthritis; Hypertension; Diabetes - IDDM; COPD; ea 23:34 fatty liver; rr5 - PSHx: 23:30 Hysterectomy; right ankle; right wrist; double mastectomy; ea - Immunization history:: Adult Immunizations up to date. - Social history:: Smoking status: Patient denies any tobacco usage or history of. ROS: 23:59 Eyes: Negative for injury, pain, redness, and discharge, ENT: Negative for injury, pkl pain, and discharge, Neck: Negative for injury, pain, and swelling, Cardiovascular: Negative for chest pain, palpitations, and edema, Respiratory: Negative for shortness of breath, cough, wheezing, and pleuritic chest pain, Abdomen/GI: Negative for abdominal pain, nausea, vomiting, diarrhea, and constipation, Back: Negative for injury and pain, : Negative for injury, bleeding, discharge, and swelling, MS/Extremity: Negative for injury and deformity, Skin: Negative for injury, rash, and discoloration. 23:59 Neuro: Positive for altered mental status, gait disturbance, speech changes, weakness. Exam: 23:59 Radiologist reports: No acute bleed. pkl 23:59 Head/Face: Normocephalic, atraumatic. Eyes: Pupils equal round and reactive to light, extra-ocular motions intact. Lids and lashes normal. Conjunctiva and sclera are non-icteric and not injected. Cornea within normal limits. Periorbital areas with no swelling, redness, or edema. ENT: Nares patent. No nasal discharge, no septal abnormalities noted. Tympanic membranes are normal and external auditory canals are clear. Oropharynx with no redness, swelling, or masses, exudates, or evidence of obstruction, uvula midline. Mucous membranes moist. Neck: Trachea midline, no thyromegaly or masses palpated, and no cervical lymphadenopathy. Supple, full range of motion without nuchal rigidity, or vertebral point tenderness. No Meningismus. Chest/axilla: Normal chest wall appearance and motion. Nontender with no deformity. No lesions are appreciated. Cardiovascular: Regular rate and rhythm with a normal S1 and S2. No gallops, murmurs, or rubs. Normal PMI, no JVD. No pulse deficits. Respiratory: Lungs have equal breath sounds bilaterally, clear to auscultation and percussion. No rales, rhonchi or wheezes noted. No increased work of breathing, no retractions or nasal flaring. Abdomen/GI: Soft, non-tender, with normal bowel sounds. No distension or tympany. No guarding or rebound. No evidence of tenderness throughout. Back: No spinal tenderness. No costovertebral tenderness. Full range of motion. Skin: Warm, dry with normal turgor. Normal color with no rashes, no lesions, and no evidence of cellulitis. MS/ Extremity: Pulses equal, no cyanosis. Neurovascular intact. Full, normal range of motion. 23:59 Neuro: Orientation: appropriate for stated age, Mentation: responsive to voice able to follow commands, slow to respond, confused, Cranial nerves: grossly normal, Cerebellar function: unable to test, Motor: Right arm drift. Vital Signs: 23:28 BP 223 / 76; Pulse 72; Resp 15; Pulse Ox 100% ; Weight 83.91 kg; Height 5 ft. 5 in. rr5 (165.10 cm); 23:49 BP 165 / 71; Pulse 81; Resp 18; Pulse Ox 99% on R/A; ea 06/29 00:06 BP 164 / 75; Pulse 82; Resp 17; Temp 96.4; Pulse Ox 99% ; rr5 00:20 BP 165 / 71; Pulse 85; Resp 19; Pulse Ox 99% ; rr5 06/28 23:28 Body Mass Index 30.79 (83.91 kg, 165.10 cm) rr5 NIH Stroke Scale Scores: 06/28 23:30 NIHSS Score: 8 rr5 [place] Coma Score: 23:15 Eye Response: to voice(3). Verbal Response: confused(4). Motor Response: obeys rr5 commands(6). Total: 13. 06/29 00:00 Eye Response: spontaneous(4). Verbal Response: confused(4). Motor Response: obeys rr5 commands(6). Total: 14. 00:20 Eye Response: spontaneous(4). Verbal Response: confused(4). Motor Response: obeys rr5 commands(6). Total: 14. MDM: 06/28 23:16 Patient medically screened. pkl 23:59 Data reviewed: vital signs, nurses notes, EKG, radiologic studies, CT scan. ED course: pkl Talked to Dr. Wren ( Neurology fellow at [facility] ). No thrombolytic. Outside window for thrombolytic. Accept transfer. 06/28 23:15 Order name: Lipase; Complete Time: 00:14 ea 06/28 23:15 Order name: Basic Metabolic Panel; Complete Time: 00:14 ea 06/28 23:15 Order name: CBC with Diff; Complete Time: 00:14 ea 06/28 23:15 Order name: Protime (+inr); Complete Time: 00:14 ea 06/28 23:15 Order name: Ptt, Activated; Complete Time: 00:14 ea 06/28 23:35 Order name: Glucose, Ancillary Testing; Complete Time: 00:14 EDOR 06/28 23:15 Order name: CT Stroke Brain w/o Contrast ea 06/28 23:15 Order name: Stroke CXR 1 View ea 06/28 23:15 Order name: EKG; Complete Time: 23:16 ea 06/28 23:43 Order name: CBC Smear Scan; Complete Time: 00:14 EDMS 06/29 00:12 Order name: Urine Microscopic Only ea 06/28 23:15 Order name: Accucheck; Complete Time: 23:30 ea 06/28 23:15 Order name: Cardiac monitoring; Complete Time: 23:56 ea 06/28 23:15 Order name: EKG - Nurse/Tech; Complete Time: 23:54 ea 06/28 23:15 Order name: IV Saline Lock; Complete Time: 23:30 ea 06/28 23:15 Order name: Labs collected and sent; Complete Time: 23:30 ea 06/28 23:15 Order name: NPO; Complete Time: 23:50 ea 06/28 23:15 Order name: O2 Per Protocol; Complete Time: 23:30 ea 06/28 23:15 Order name: O2 Sat Monitoring; Complete Time: 23:30 ea 06/28 23:15 Order name: Stroke Swallow Screen; Complete Time: 00:04 ea 06/28 23:23 Order name: Urine Dipstick-Ancillary (obtain specimen); Complete Time: 00:22 ea Administered Medications: 23:30 Drug: Zofran (Ondansetron) 4 mg Route: IVP; Site: right antecubital; rr5 06/29 00:22 Follow up: Response: No adverse reaction ea 06/28 23:38 Drug: Trandate 20 mg Route: IVP; Site: right antecubital; ea 06/29 00:22 Follow up: Response: No adverse reaction ea 00:04 Drug: Aspirin Chewable Tablet 81 mg Route: PO; ea 00:23 Follow up: Response: No adverse reaction ea Disposition: 06/29/20 00:13 Transfer ordered to [facility]. Diagnosis is Acute ischemic stroke. - Reason for transfer: Higher level of care. - Accepting physician is Dr. Wren. - Condition is Stable. - Problem is new. - Symptoms have improved. NIH Stroke Scale - NIH Stroke Score Date: 06/28/2020 Time: 23:30 Total Score = 8 1a. Level of Consciousness (LOC) - 0(Alert) 1b. Level of Consciousness (LOC) (Year \T\ Age) - 1(One) 1c. LOC Commands (Open \T\ Closes Eyes/Relay Technician) - 0(Both) 2. Best Gaze (Lateral Gaze Paresis) - 0(Normal) 3. Visual Field Loss - 0(No visual loss) 4. Facial Palsy - 2(Partial paralysis) 5a. Left Arm: Motor (10-second hold) - 0(No drift) 5b. Right Arm: Motor (10-second hold) - 0(No drift) 6a. Left Leg: Motor (5-second hold - always test supine) - 2(Drift, some effort against gravity) 6b. Right Leg: Motor (5-second hold - always test supine) - 2(Drift, some effort against gravity) 7. Limb Ataxia (finger/nose \T\ heel/forrester - test with eyes open) - 0(Absent) 8. Sensory Loss (pinprick arms/legs/face) - 0(Normal) 9. Best Language: Aphasia (description/naming/reading) - 0(No aphasia) 10. Dysarthria (speech clarity - read or repeat words) - 1(Mild to Moderate) 11. Extinction and Inattention (visual/tactile/auditory/spatial/personal) - 0(No abnormality) Initials: rr5 Signatures: Dispatcher [employer] EDMS Forrest Hess MD MD pkCharlotte Wagner, RN Carlos Ashton ea, RN RN rr5 Corrections: (The following items were deleted from the chart) 00:43 00:13 06/29/2020 00:13 Transfer ordered to [facility]. Diagnosis rr5 is Acute ischemic stroke. Reason for transfer: Higher level of care. Accepting physician is Dr. Wren. Condition is Stable. Problem is new. Symptoms have improved. pkl
[2020-06-29 00:59] VITALS: O2SAT 99
[2020-06-29 01:00] VITALS: TEMP 96.4
[2020-06-29 01:01] VITALS: BP 165/71
[2020-06-29 01:05] LABS: Urine Bacteria LOADED /HPF (<20); Urine Culture Reflex Order REFLEXED; Urine Mucus 2+ /HPF (NONE SEEN); Urine RBC <5 /HPF (NONE SEEN)
--- NOTE | 2020-06-29 07:08 | EKG ---
Test Date: 2020-06-28 Test Time: 23:36:35 Cutter Operator Brick: NOAH MEASUREMENT RESULTS: Intervals: Rate: 70 DE: 162 QRSD: 86 QT: 430 QTc: 464 [place]: P: 57 DE: 162 QRS: 37 T: 63 INTERPRETIVE STATEMENTS: Normal sinus rhythm Normal ECG Compared to ECG 09/13/2019 19:30:01 No significant changes Electronically Signed On 06-29-20 07:07:59 CDT by Pete Kaur
--- NOTE | 2020-06-29 07:47 | RAD REPORT ---
EXAM DESCRIPTION: Ella Single View06/28/2020 11:58 pm CLINICAL HISTORY: Hypertension COMPARISON: December 2019 FINDINGS: The lungs appear clear of acute infiltrate. The heart is normal size IMPRESSION: No acute abnormalities displayed
--- NOTE | 2020-06-29 08:37 | RAD REPORT ---
EXAM DESCRIPTION: CT - Ct Stroke Brain Wo Cont - 06/29/2020 4:34 am CLINICAL HISTORY: WEAKNESS TECHNIQUE: Contiguous axial CT images obtained through the brain without IV contrast. Coronal and sa gittal reformatted images were provided. This exam was performed according to our departmental dose-optimization program, which includes autom ated exposure control, adjustment of the mA and/or kV according to patient size and/or use of iterati ve reconstruction technique. COMPARISON: None available for comparison FINDINGS: Brain: There is mild cerebral atrophy. Mild to moderate periventricular and subcortical wh ite matter hypodensity. [place]-white matter differentiation is within normal limits. No hemorrhage. Ventricles: No ventriculomegaly or midline shift. Extra-axial spaces: No extra-axial collection or hemorrhage. Paranasal sinuses and mastoid air cells: Well-aerated Vessels: There is atherosclerotic disease of the internal carotid arteries bilaterally and right vert ebral artery. Bones: Unremarkable Soft tissues: Unremarkable IMPRESSION: 1. No acute hemorrhage, focal mass or large territory infarction. 2. Bilateral periventricular and subcortical white matter hypodensity most likely related to chroni c microvascular angiopathy. Please note that these areas of low attenuation may obscure small acute i nfarctions. 3. Other findings as above. Electronically signed by: Rory Cummings MD 06/28/2020 11:34 PM CDT Due to temporary technical issues with the PACS/Fluency reporting system, reports are being signed by the in house radiologist without review as a courtesy to ensure prompt reporting. The interpreting r adiologist is fully responsible for the content of the report.
== END 2020-06-29 00:43 | disposition short-term general hospital (02) ==
LOC: ER 23:14
DX: I63.9 Cerebral infarction, unspecified (principal); R29.708 NIHSS score 8
CPT/HCPCS: 93005; 87088; 85025; 87086; 80048; 36415; 85610; 82947; 85730; 87077 ×2; 87186 ×2; 81015; 83690; 70450; 71045; 51702; 96375; 96374; 99285; J2405

== ENCOUNTER 2021-02-14 18:09 | Emergency (ER) | payer OTHER, BC ==
--- OUTSIDE RECORDS SUMMARY | 2021-02-14 18:13 | XMS REPORT | Continuity of Care Document ---
:1950 Author Organization [facility] t Address [address] [place] [address] Care Team Providers Name Role Phone Pcp Primary Care Physician Unavailable Lachelle DOVER C Attending Clinician 1, Infusion Chair Attending Clinician Unavailable Pob, Lab Main Attending Clinician Unavailable Doctor Unassigned, Name Attending Clinician Unavailable 2, Lab Attending Clinician Unavailable JESÚS Attending Clinician Unavailable CORTEZ Admitting Clinician Unavailable Problems Condition Condition Condition Status Onset Resolution Last Treating Co mments Source Name Details Category Date Date Treatment Clinician Date COPD COPD Disease Active 2018-[address] [facility] (chronic (chronic 0-31 [facility] - obstructiv obstructiv 00:00: Me dical e e 00 Pablo pulmonary pulmonary disease) disease) Cirrhosis Cirrhosis Disease Active 2018-[address] [facility] [address] of liver of liver 0-30 [facility] - with with 00:00: Medical ascites ascites 00 Center Allergies, Adverse Reactions, Alerts This patient has no known allergies or adverse reactions. Social History Social Habit Start Date Stop Date Quantity Comments [facility] l [facility] History SDOH [facility] - Alcohol Binge Medical Sharla ter Sex Assigned At [facility] Alcohol intake 2019-09-17 2019-09-17 Current [facility] es - 00:00:00 00:00:00 non-drinker of Medical Ce nter alcohol (finding) History SDOH 2019-09-14 2019-09-[address] [facility] - Alcohol Frequency 00:00:00 00:00:00 Medical Center Smoking Status Start Date Stop Date Source Never smoker [facility] M edical Center Medications Ordered Filled Start Stop Current Ordering Indication Dosage Frequency Signature Comments Components Source Medication Medication Date Date Medication? Clinician (SIG) Name Name furosemide 2018-11 2020- No 40mg QD Take [address] [facility] (LASIX) 40 1-06 11-05 tablet (40 Shira kes - MG tablet 00:00: 23:59 mg total) Me dical 00 :00 by mouth Center daily. SITagliptin 2018-11 Yes 1{tbl} QD Take [address] -metFORMIN 1-05 tablet by Luke s - (JANUMET) 16:17: mouth Medical 50-1,000 mg 34 daily. Center per tablet montelukast 2018-11 Yes 10mg QD Take [address] [facility] (SINGULAIR) 1-05 by mouth Luke s - 10 mg 16:17: nightly. Medical tablet 34 Pablo lisinopril 2018-11 Yes 20mg QD Take [address] (PRINIVIL,Z 1-05 by mouth Luke s - ESTRIL) 20 16:17: daily. Medic al MG tablet 34 Pablo metoprolol 2018-11 Yes 100mg Q.5D Take [address] (LOPRESSOR) 1-05 mg by [facility] - 100 MG 16:17: mouth 2 Medical tablet 34 (two) Center times daily. amLODIPine 2018-11 Yes 5mg QD Take [address] (NORVASC) 5 1-05 by mouth Luke s - MG tablet 16:17: daily. Medica l 34 Pablo hydroCHLORO 2018-11 Yes 12.5mg QD Take 12.[address] thiazide 1-05 mg by [facility] - (MICROZIDE) 16:17: mouth Medic al 12.5 mg 34 daily. Pablo capsule omeprazole 2018-11 Yes 40mg QD Take [address] (PRILOSEC) 1-05 by mouth [facility] - 40 MG 16:17: daily. Medical capsule 34 Pablo brimonidine 2018-11 Yes 1[drp] Q.5D Place [address] (ALPHAGAN) 1-05 drop into Luke s - 0.15 % 16:17: both eyes Medica l ophthalmic 34 2 (two) Center solution times daily. insulin 2018-11 Yes 30U QD Inject 30 [facility] degludec 1-05 Units [facility] - 100 unit/mL 16:17: subcutaneo Medical (3 mL) InPn 34 usly Center daily. latanoprost 2018-11 Yes 1[drp] QD Place [address] (XALATAN) 1-05 drop into [facility] - 0.005 % 16:17: both eyes Medic al ophthalmic 34 nightly. Cente r solution albuterol 2018-11 Yes 2{puff} Inhale [address] HFA 1-05 puffs by [facility] - (VENTOLIN 00:00: mouth via Med ical HFA) 90 00 inhaler Center mcg/actuati every 4 on inhaler (four) hours as needed for Wheezing or Shortness of Breath. ferrous 2018-11 2020- No 325mg [id number] Take [address] sulfate 325 -05 09-19 [id number] tablet [facility] - (65 FE) MG 00:00: 23:59 3D (325 mg Med ical tablet 00 :00 total) by Center mouth 3 (three) times daily. budesonide 2018-11- No .5mg Q.5D Take [address] (PULMICORT) 11-20 (0.5 mg Luke s - 0.5 mg/2 mL 00:00: 23:59 total) by Medical nebulizer 00 :00 nebulizati Cent er solution on 2 (two) times daily. Procedures This patient has no known procedures. Plan of Care Planned Activity Planned Date Details Comments Source Future Scheduled 2020-07-17 INFLUENZA VACCINE (#1) [facility] - Test 00:00:00 [code = INFLUENZA Medical Ce nter VACCINE (#1)] Future Scheduled 2016-11-[address] [facility] - Test 00:00:00 WELLNESS (YEAR 2 or Medical Center FIRST YEAR if no IPPE) [code = MEDICARE ANNUAL WELLNESS (YEAR 2 or FIRST YEAR if no IPPE)] Future Scheduled 2015 PNEUMOCOCCAL 65+ YRS [facility] - Test 00:00:00 (1 of 1 - Medical Center [id number]_Iytwnhz PCV13) [code = PNEUMOCOCCAL 65+ YRS (1 of 1 - KRBP50_Dtptuwl PCV13)] Future Scheduled [address] [facility] - Test 00:00:00 [facility] breast (procedure) [code = 934343738] Future Scheduled [address] [facility] - Test 00:00:00 [facility] colon (procedure) [code = 806442890] Encounters Start End Encounter Admission Attending Care Care Encounter Source Date/Time Date/Time Type Type Clinicians Facility Department ID 2021-01-29 2021-01-29 [facility] 1.2.840.114 [id number] 10:00:00 23:59:00 Encounter Catracho turner 350.1.13.10 [place] 4.2.7.2.686 [place] [id number] 2021-01-29 2021-01-29 Nurse 1, [facility] 1.2.840.114 [id number] 11:42:41 12:42:41 Visit Infusion Evy 350.1.13.10 Chair Tneisha 4.2.7.2.686 Surgical [id number] Pablo 053 2021-01-29 2021-01-29 Director Process Engineering Juan, [facility] 1.2.840.114 [id number] 11:59:37 12:14:37 Visit Lab Main Evy 350.1.13.10 [place]emat[place] 4.2.7.2.686 Professio [id number] [address] 2021-01-29 2021-01-29 Orders Doctor OLAMIDE 1.2.840.114 [id number] 00:00:00 00:00:00 Only Unassigned, RAFFY 350.1.13.10 [place] [facility] 4.2.7.2.686 [id number] 009 2021-01-22 2021-01-22 Outpatient STLMLC STLMLC [id number] [facility] 00:[facility]:00 Monika barone Outpati ent Clinics 2021-01-03 2021-01-03 [facility] 1.2.840.114 [id number] 11:30:00 23:59:00 Encounter Catracho turner 350.1.13.10 [place]emat[place] 4.2.7.2.686 [place] [id number] 2021-01-03 2021-01-03 Nurse 1, [facility] 1.2.840.114 [id number] 13:06:59 14:06:59 Visit Infusion Evy 350.1.13.10 Chair Hematite 4.2.7.2.686 Surgical [id number] Pablo 053 2021-01-03 2021-01-03 Director Process Engineering Juan, [facility] 1.2.840.114 [id number] 13:43:10 13:58:10 Visit Lab Main Evy 350.1.13.10 [place]emat[place] 4.2.7.2.686 Professio [id number] [address] 2021-01-03 2021-01-03 Orders Doctor OLAMIDE 1.2.840.114 [id number] 00:00:00 00:00:00 Only Unassigned, RAFFY 350.1.13.10 [place] [facility] 4.2.7.2.686 [id number] 009 2020-12-25 2020-12-25 Orders Doctor OLAMIDE 1.2.840.114 [id number] 00:00:00 00:00:00 Only Unassigned, RAFFY 350.1.13.10 [place] [facility] 4.2.7.2.686 [id number] 009 2020-11-19 2020-11-19 [facility] 1.2.840.114 [id number] 12:51:09 23:59:00 Encounter eCatracho SPECIALTY 350.1.13.10 CARE 4.2.7.2.686 CENTER AT [id number] BRAD 803 [facility] 2020-10-22 2020-10-22 [facility] 1.2.840.114 [id number] 12:49:53 23:59:00 Encounter e, Griselzar C SPECIALTY 350.1.13.10 CARE 4.2.7.2.686 CENTER [id number] [facility] 2020-10-02 2020-10-02 Director Process Engineering 2, [facility] Lab [facility] 1.2.840.114 [id number] 09:07:59 09:22:59 Visit Evy 350.1.13.10 [place]emat[place] 4.2.7.2.686 lamine [id number] [address] 2020-10-02 2020-10-02 Orders Doctor OLAMIDE 1.2.840.114 [id number] 00:00:00 00:00:00 Only Unassigned, RAFFY 350.1.13.10 [place] [facility] 4.2.7.2.686 [id number] 009 Results Test Description Test Time Test Comments Results Result Comments Source ANTI-MITOCHONDRIAL AB, REFLEX TO TITER 2019-09-28 07:59:00 Test Item Value Reference Range Interpretation Comme nts SCAN RESULT (test code = 3134955) RESPIRATORY PANEL [id number] 13:14:00 Test Item Value Reference Range Interpretation [...] decisions. This sample was tested at the [facility] Molecular [facility]ostics Laboratory using the AppIt VenturesArray Respiratory Panel. It is FDA cleared and has been verified and approved by the [facility] for clinical use on nasopharyngeal swab specimens.The performance of the FilmArrayRP has not been established in individuals who received influenza vaccine. Recent administration ofa nasal influenza vaccine may cause false positive results for Influenza A and/orInfluenza B.POCT-GLUCOSE [id number] 13:03:00 Test Item Value Reference Range Interpretation Comments POC-GLUCOSE METER 258 mg/dL 70-110 H : TESTED A T [facility] 6720 (BEAKER) (test code = [facility], 153) 66041: Tax Form Preparer/Techni bravo ID = [id number] for Yue Kennedy POCT-GLUCOSE [id number] 08:53:00 Test Item Value Reference Range Interpretation Comments POC-GLUCOSE METER 197 mg/dL 70-110 H : TESTED A T [facility] 6720 (BEAKER) (test code = [facility], 1538) 10677: Tax Form Preparer/Techni bravo ID = [id number] for JOSE LUIS MIX POCT-GLUCOSE [id number] 23:16:00 Test Item Value Reference Range Interpretation Comments POC-GLUCOSE METER 246 mg/dL 70-110 H : TESTED A T [facility] 6720 (BEAKER) (test code = [facility], 1538) 85445: Tax Form Preparer/Techni bravo ID = [id number] for GONZÁLEZ SIMS POCT-GLUCOSE [id number] 18:13:00 Test Item Value Reference Range Interpretation Comments POC-GLUCOSE METER 254 mg/dL 70-110 H : TESTED A T [facility] 6720 (BEAKER) (test code = [facility], 1538) 43330: Tax Form Preparer/Techni bravo ID = [id number] for ST OMIRTAIC, NADA POCT-GLUCOSE [id number] 13:25:00 Test Item Value Reference Range Interpretation Comments POC-GLUCOSE METER 201 mg/dL 70-110 H : TESTED A T [facility] 6720 (BEAKER) (test code = [facility], [facility]8) 11842: Tax Form Preparer/Techni bravo ID = [id number] for ST OJCIC, NADA POCT-GLUCOSE [id number] 08:22:00 Test Item Value Reference Range Interpretation Comments POC-GLUCOSE METER 184 mg/dL 70-110 H : TESTED A T [facility] 6720 (BEAKER) (test code = [facility], [facility]8) 24994: Tax Form Preparer/Techni bravo ID = [id number] for ST OJCIC, NADA POCT-GLUCOSE [id number] 23:53:00 Test Item Value Reference Range Interpretation Comments POC-GLUCOSE METER 297 mg/dL 70-110 H : TESTED A T [facility] 6720 (BEAKER) (test code = [facility], [facility]8) 66767: Tax Form Preparer/Techni bravo ID = [id number] for RA YANETH, MICHAEL POCT-GLUCOSE [id number] 18:55:00 Test Item Value Reference Range Interpretation Comments POC-GLUCOSE METER 256 mg/dL 70-110 H : TESTED A T [facility] 6720 (BEAKER) (test code = [facility], [facility]8) 43508: Tax Form Preparer/Techni bravo ID = [id number] for DO BBINS, OFELIA POCT-GLUCOSE [id number] 18:49:00 Test Item Value Reference Range Interpretation Comments POC-GLUCOSE METER 213 mg/dL 70-110 H : TESTED A T [facility] 6720 (BEAKER) (test code = [facility], 1538) 20453: Tax Form Preparer/Techni bravo ID = [id number] for DO BBINS, OFELIA POCT-GLUCOSE [id number] 18:44:00 Test Item Value Reference Range Interpretation Comments POC-GLUCOSE METER 216 mg/dL 70-110 H : TESTED A T [facility] 6720 (BEAKER) (test code = [facility], 1538) 60337: Tax Form Preparer/Techni bravo ID = [id number] for OFELIA CHAPMAN CBC W/PLT COUNT & AUTO [id number] 09:27:00 Test Item Value Reference Range Interpretation [...] PERCENT (BEAKER) (test code = 2801) POCT-GLUCOSE [id number] 00:33:00 Test Item Value Reference Range Interpretation Comments POC-GLUCOSE METER 330 mg/dL 70-110 H : Notified RN/MD: (SUELLENAKER) (test code = TESTED AT [place] [address] 153) [facility], [address]: Tax Form Preparer/Techni bravo ID = [id number] for Kathryn Hidalgo POCT-GLUCOSE [id number] 18:45:00 Test Item Value Reference Range Interpretation Comments POC-GLUCOSE METER 335 mg/dL 70-110 H : Notified RN/MD: (SUELLENAKER) (test code = TESTED AT [facility] 67 153) [facility], [address]: Tax Form Preparer/Techni bravo ID = [id number] for JASE TYLER BLOOD GAS, [id number] 15:34:00 Test Item Value Reference Range Interpretation [...] the patient has been upright for 15 minutes.POCT- GLUCOSE [id number] 10:59:00 Test Item Value Reference Range Interpretation Comments POC-GLUCOSE METER 185 mg/dL 70-110 H : TESTED A T [facility] 6720 (BEAKER) (test code = [facility], 1538) 70765: Tax Form Preparer/Techni bravo ID = [id number] for MARIA GUADALUPE COX POCT-GLUCOSE [id number] 07:44:00 Test Item Value Reference Range Interpretation Comments POC-GLUCOSE METER 235 mg/dL 70-110 H : TESTED A T [facility] 6720 (BEAKER) (test code = [facility], 1538) 54418: Tax Form Preparer/Techni bravo ID = [id number] for TE KARAN, TWYLA BILIRUBIN, [id number] 06:38:00 Test Item Value Reference Range Interpretation Comments BILIRUBIN DIRECT 0.3 mg/dL 0.1-0.5 Specimen sl ightly (BEAKER) (test code = hemoly zed 706) POCT-GLUCOSE [id number] 23:23:00 Test Item Value Reference Range Interpretation Comments POC-GLUCOSE METER 367 mg/dL 70-110 H : TESTED A T [facility] 6720 (BEAKER) (test code = [facility], 1538) 06721: Tax Form Preparer/Techni bravo ID = [id number] for RA SEXTONIjeoma MICHAEL POCT-GLUCOSE [id number] 18:06:00 Test Item Value Reference Range Interpretation Comments POC-GLUCOSE METER 296 mg/dL 70-110 H : TESTED A T [facility] 6720 (BEAKER) (test code = [facility], 1538) 30323: Tax Form Preparer/Techni bravo ID = [id number] for RE AL, RONILO POCT-GLUCOSE [id number] 13:06:00 Test Item Value Reference Range Interpretation Comments POC-GLUCOSE METER 234 mg/dL 70-110 H : TESTED A T [facility] 6720 (BEAKER) (test code = [facility], 1538) 53932: Tax Form Preparer/Techni bravo ID = [id number] for TE KARAN, TWYLA CT, ABDOMEN, [id number] 12:02:00Please scan with liver protocolFINAL REPORT TECHNIQUE: [...] 3.Small bilateral pleural effusions. Signed: Stanley Dior MDReport Verified Date/Time: 09/16/2019 12:02:29 Reading Location: [place] [address] CT Body Reading Room POCT-GLUCOSE METER 2019-09-16 10:32:00 Test Item Value Reference Range Interpretation Comments POC-GLUCOSE METER 241 mg/dL 70-110 H : TESTED A T [facility] 6720 (BEAKER) (test code = [place] [facility], 1538) [address]: Tax Form Preparer/Techni bravo ID = [id number] for NAVI VÁSQUEZ YESSENIALORA HEPATIC FUNCTION [id number] 07:48:00 Test Item Value Reference Range Interpretation [...] = 20 U/L 6-55 347) BASIC METABOLIC [id number] 07:48:00 Test Item Value Reference Range Interpretation [...] S NOT APPLICABLE FOR DIALYSIS PATIEN TS. PROTHROMBIN [id number] 07:16:00 Test Item Value Reference Range Interpretation [...] is2.5-3.5 for patients wiht mechanical heart valves.POCT-GLUCOSE [id number] 06:57:00 Test Item Value Reference Range Interpretation Comments POC-GLUCOSE METER 241 mg/dL 70-110 H : TESTED Bette Chandra [facility] 6720 (BEAKER) (test code = [facility], 1538) [address]: Tax Form Preparer/Techni bravo ID = [id number] for AL BETH CBC W/PLT COUNT & AUTO [id number] 06:53:00 Test Item Value Reference Range Interpretation [...] PERCENT (BEAKER) (test code = 2801) POCT-GLUCOSE [id number] 17:32:00 Test Item Value Reference Range Interpretation Comments POC-GLUCOSE METER 259 mg/dL 70-110 H : TESTED A T [facility] 6720 (BEAKER) (test code = [facility], 1538) 27437: Tax Form Preparer/Techni bravo ID = [id number] for TWYLA HAWKINS POCT-GLUCOSE [id number] 15:11:00 Test Item Value Reference Range Interpretation Comments POC-GLUCOSE METER 200 mg/dL 70-110 H : Will Rep eat Test: (BEAKER) (test code = Notifi ed RN/MD: Verify 1538) w/ Lab Draw: TE STED AT [facility] 6720 [facility], 770 30: Tax Form Preparer/Techni bravo ID = [id number] for NG BARBARA, DANNY HEMOGLOBIN [id number] 13:55:00 Test Item Value Reference Range Interpretation Comments HEMOGLOBIN A1C (SAIDA) (test code = 9.4 % 4.3-6.1 H 368) RAD, CHEST, 1 VIEW, NON [id number] 13:32:00Reason for exam:->SOBShould this be performed at the bedside?->YesFINAL REPORT INDICATION: SOB COMPARISON: None TECHNIQUE: Single frontal view of the chest. FINDINGS: Lungs and pleura: Clear lungs. No effusion.Heart and mediastinum: Normal heart size. Unremarkable mediastinal contours.Osseous structures: No acute abnormality.Other: None. IMPRESSION: No acute intrathoracic abnormality. Signed: Kiki Pereira Verified Date/Time: 09/15/2019 13:32:27 Reading Location: [facility] Reading Room POCT-GLUCOSE METER 2019-09-15 12:11:00 Test Item Value Reference Range Interpretation Comments POC-GLUCOSE METER 227 mg/dL 70-110 H : TESTED A T [facility] 6720 (BEAKER) (test code = [facility] [facility], 1538) [address]: Tax Form Preparer/Techni bravo ID = [id number] for MAXX EDWARDS (CELLAVISION MANUAL DIFF)2019-09-15 09:13:00 Test Item Value Reference [...] 3438) Received comment: User comments: Slide comments:POCT-GLUCOSE [id number] 08:34:00 Test Item Value Reference Range Interpretation Comments POC-GLUCOSE METER 219 mg/dL 70-110 H : TESTED A T [facility] 6720 (BEAKER) (test code = [facility], 1538) [address]: Tax Form Preparer/Techni bravo ID = [id number] for Or colletteijeomaJanuary [id number] 07:30:00 Test Item Value Reference Range Interpretation Comments FERRITIN (BEAKER) (test code = 361) 11 ng/mL 5-275 HEPATITIS A ANTIBODY, [id number] 06:17:00 Test Item Value Reference Range Interpretation Comments HEPATITIS A IGG ANTIBODY (BEAKER) Reactive Nonreactive A (test code = 2797) CBC W/PLT COUNT & AUTO [id number] 05:50:00 Test Item Value Reference Range Interpretation [...] 0-0 CELLS (BEAKER) (test code = 413) COMPREHENSIVE METABOLIC [id number] 05:49:00 Test Item Value Reference Range Interpretation [...] S NOT APPLICABLE FOR DIALYSIS PATIEN TS. HEPATITIS B SURFACE [id number] 05:48:00 Test Item Value Reference Range Interpretation Comments HEPATITIS B SURFACE ANTIBODY < mIU/mL <8.0 (BEAKER) (test code = 647) HEPATIC FUNCTION [id number] 05:44:00 Test Item Value Reference Range Interpretation [...] 23 U/L 9-64 (test code = 364) IRON, TIBC, % SAT. (WITHOUT FERRITIN)2019-09-15 05:37:00 Test Item Value Reference Range Interpretation Comments IRON (BEAKER) (test code = 547) 17.0 ug/dL 40.0-160.0 L TOTAL IRON BINDING CAPACITY 436 ug/dL 250-450 (BEAKER) (test code = 769) IRON % SATURATION (2) (BEAKER) 4 % 20-55 L (test code = 2590) B-TYPE NATRIURETIC FACTOR (BNP)2019-09-15 05:32:00 Test Item Value Reference Range Interpretation Comments B-TYPE NATRIURETIC PEPTIDE (BEAKER) 153 pg/mL 0-100 H (test code = 700) PROTHROMBIN [id number] 05:23:00 Test Item Value Reference Range Interpretation [...] is2.5-3.5 for patients wiht mechanical heart valves.POCT-GLUCOSE [id number] 21:42:00 Test Item Value Reference Range Interpretation Comments POC-GLUCOSE METER 286 mg/dL 70-110 H : TESTED A T [facility] 6720 (BEAKER) (test code = [facility] [employer] [facility], 1538) [address]: Tax Form Preparer/Techni bravo ID = [id number] for NICHOLE ELKINS POCT-GLUCOSE [id number] 19:12:00 Test Item Value Reference Range Interpretation Comments POC-GLUCOSE METER 219 mg/dL 70-110 H : TESTED A T [facility] 6720 (BEAKER) (test code = [employer] [facility], 1538) 94233: Tax Form Preparer/Techni bravo ID = [id number] for RUFINO HIGGINS CREATININE, RANDOM [id number] 19:07:00 Test Item Value Reference Range Interpretation Comments CREATININE URINE (BEAKER) (test 63.7 mg/dL code = 375) Reference Range: No NormalsSODIUM, RANDOM [id number] 19:07:00 Test Item Value Reference Range Interpretation Comments SODIUM URINE (BEAKER) (test code = 66 meq/L 243) Reference Range: No NormalsURINALYSIS W/ REFLEX URINE [id number] 18:51:00 Test Item Value Reference Range Interpretation [...] (BEAKER) (test 1 /HPF code = 516) SOURCE(BEAKER) (test code = 2795) IMMUNOGLOBULIN M (IGM)2019-09-14 17:03:00 Test Item Value Reference Range Interpretation Comments IMMUNOGLOBULIN M (IGM) (BEAKER) 173 mg/dL 22-293 (test code = 638) [id number] 17:00:00 Test Item Value Reference Range Interpretation Comments ALPHA-1 ANTITRYPSIN (BEAKER) 104.20 mg/dL 90.00-200.00 (test code = 502) [id number] 15:44:00 Test Item Value Reference Range Interpretation Comments FERRITIN (BEAKER) (test code = 361) 4 ng/mL 5-275 L HEMOGLOBIN AND [id number] 14:54:00 Test Item Value Reference Range Interpretation [...] % 20-55 L (test code = 2590) IMMUNOGLOBULIN G (IGG)2019-09-14 14:20:00 Test Item Value Reference Range Interpretation Comments IMMUNOGLOBULIN G (IGG) (BEAKER) 1276 mg/dL 540-1,822 (test code = 427) POCT-GLUCOSE [id number] 13:43:00 Test Item Value Reference Range Interpretation Comments POC-GLUCOSE METER 175 mg/dL 70-110 H : Notified RN/MD: TESTED (BEAKER) (test code AT [facility] [address] = 1538) [facility], 770 30: Tax Form Preparer/Techni bravo ID = [id number] for LUDWIN CARPIO POCT-GLUCOSE [id number] 09:14:00 Test Item Value Reference Range Interpretation Comments POC-GLUCOSE METER 200 mg/dL 70-110 H : Notified RN/MD: TESTED (BEAKER) (test code AT [facility] [address] = 1538) [facility], 770 30: Tax Form Preparer/Techni bravo ID = [id number] for LUDWIN CARPIO HEPATITIS PANEL, [id number] 03:41:00 Test Item Value Reference Range Interpretation Comments HEPATITIS A IGM ANTIBODY (BEAKER) Nonreactive Nonreactive (test code = 498) HEPATITIS B CORE IGM ANTIBODY Nonreactive Nonreactive (BEAKER) (test code = 645) HEPATITIS C ANTIBODY (BEAKER) Nonreactive Nonreactive (test code = 367) HEPATITIS B SURFACE ANTIGEN (2) Nonreactive Nonreactive (BEAKER) (test code = 2585) TROPONIN [id number] 03:25:00 Test Item Value Reference Range Interpretation [...] H (test code = 700) BASIC METABOLIC [id number] 03:12:00 Test Item Value Reference Range Interpretation [...] APPLICABLE FOR DIALYSIS PATIEN TS. HEPATIC FUNCTION [id number] 03:12:00 Test Item Value Reference Range Interpretation [...] slightly (test code = 347) hemolyzed PROTHROMBIN [id number] 03:09:00 Test Item Value Reference Range Interpretation [...] mechanical heart valves.CBC W/PLT COUNT & AUTO [id number] 02:56:00 Test Item Value Reference Range Interpretation [...]
[2021-02-14] MEDS ORDERED: NA CHLORIDE 0.9% 1,000 ML ONE (21:28)
[2021-02-14] MEDS ORDERED: PANTOPRAZOLE 40 MG INJ ONE (21:28)
[2021-02-14 21:48] LABS: RBC Red Blood Cell Count 2.91 M/uL (3.86-4.86)
[2021-02-14 21:52] LABS: Absolute Lymphocytes (CBC) 0.8 K/uL (0.7-4.9); Basophils % 1.3 % (0-1.3); MPV 9.9 fL (7.6-11.3)
[2021-02-14 22:14] LABS: Protime INR 1.33
--- NOTE | 2021-02-14 22:20 | ER ---
Nurse's Notes [facility] Name: Rena Burch Age: 70 yrs Sex: Female : 1950 Arrival Date: 02/14/2021 Time: 18:10 Bed 7 Private MD: Diagnosis: Gastrointestinal hemorrhage, unspecified Presentation: 02/14 18:36 Chief complaint: Patient's son or daughter states: Daughter: Routine Blood works done ca1 yesterday, HGB 6.7. Reports a little fatigue and SOB. Denies bloody, dark stools. Coronavirus screen: Client denies travel out of the [place] in the last 14 days. At this time, the client does not indicate any symptoms associated with coronavirus-19. Ebola Screen: Patient negative for fever greater than or equal to 101.5 degrees Fahrenheit, and additional compatible Ebola Virus Disease symptoms Patient denies exposure to infectious person. Patient denies travel to an Ebola-affected area in the 21 days before illness onset. No symptoms or risks identified at this time. Initial Sepsis Screen: Does the patient meet any 2 criteria? No. Patient's initial sepsis screen is negative. Does the patient have a suspected source of infection? No. Patient's initial sepsis screen is negative. Risk Assessment: Do you want to hurt yourself or someone else? Patient reports no desire to harm self or others. Onset of symptoms was February 14, 2021. 18:36 Method Of Arrival: Wheelchair ca1 18:36 Acuity: CHEIKH 3 ca1 20:09 Acuity: CHEIKH 2 ca1 Historical: - Allergies: 18:40 No Known Allergies; ca1 - Home Meds: 02/15 08:31 atorvastatin 10 mg oral tab 1 tab once daily [Active]; metoprolol tartrate 100 mg Oral ld1 tab 1 tab 2 times per day [Active]; Breo Ellipta 100-25 mcg/dose inhalation dsdv [Active]; spironolactone 50 mg Oral tab 1 tab once daily [Active]; furosemide 40 mg Oral tab 1 tab 2 times per day [Active]; aspirin 81 mg Oral TbEC 1 tab once daily [Active]; Xifaxan 550 mg oral tab [Active]; omeprazole 40 mg Oral cpDR 1 cap once daily [Active]; - PMHx: 02/14 18:40 Diabetes - IDDM; COPD; fatty liver; Hypertension; Psoriatic Arthritis; ca1 - PSHx: 18:40 Hysterectomy; right ankle; right wrist; double mastectomy; ca1 - Immunization history:: Client reports receiving the 2nd dose of the Covid vaccine, Date received: February 04, 2021 Pneumococcal vaccine is up to date, Flu vaccine is up to date. - Social history:: Smoking status: Patient denies any tobacco usage or history of. Screenin:39 Abuse screen: Denies threats or abuse. Nutritional screening: No deficits noted. ea Tuberculosis screening: No symptoms or risk factors identified. Fall Risk IV access (20 points). Assessment: 20:09 Reassessment:. ca1 21:20 General: Appears in no apparent distress. Behavior is calm, cooperative, appropriate ea for age. Pain: Denies pain. Neuro: Level of Consciousness is awake, alert, obeys commands, Oriented to person, place, time, situation. Cardiovascular: Patient's skin is warm and dry. Respiratory: Airway is patent Respiratory effort is even, unlabored, Respiratory pattern is regular, symmetrical. Derm: Skin is dry, Skin is pale, Skin temperature is warm. 23:27 Reassessment: Marielena (Daughter) [phone]. ea 02/15 00:00 Reassessment: Patient and/or family updated on plan of care and expected duration. Pain ea level reassessed. Patient is alert, oriented x 3, equal unlabored respirations, skin warm/dry/pink. 01:30 Reassessment: Patient and/or family updated on plan of care and expected duration. Pain ea level reassessed. Pt resting with eyes closed respirations even and unlabored. Chest expansions even and symmetrical. No obvious s/s of pain or discomfort noted at this time. 02:30 Reassessment: Patient and/or family updated on plan of care and expected duration. Pain ea level reassessed. Patient is alert, oriented x 3, equal unlabored respirations, skin warm/dry/pink. 03:30 Reassessment: Patient and/or family updated on plan of care and expected duration. Pain ea level reassessed. Pt resting with eyes closed, respirations even and unlabored. No s/s of pain or discomfort noted at this time. 04:30 Reassessment: Patient and/or family updated on plan of care and expected duration. Pain ea level reassessed. Pt resting with eyes closed, respirations even and unlabored. No s/s of pain or discomfort noted at this time. 05:50 Reassessment: Reassessment: Patient and/or family updated on plan of care and expected ea duration. Pain level reassessed. Patient is alert, oriented x 3, equal unlabored respirations, skin warm/dry/pink. 07:26 General: Appears in no apparent distress. comfortable, Behavior is calm, cooperative, ld1 appropriate for age. Pain: Denies pain. Neuro: Level of Consciousness is awake, alert, obeys commands, Oriented to person, place, time, situation. Cardiovascular: Patient's skin is warm and dry. Respiratory: Airway is patent Respiratory effort is even, unlabored, Respiratory pattern is regular, symmetrical. GI: Abdomen is round distended, Bowel sounds present X 4 quads. Abd is soft X 4 quads Abdomen is tender to palpation in right upper quadrant and left upper quadrant. Derm: Skin is pink, warm \\T\\ dry. Vital Signs: 02/14 18:36 BP 138 / 56; Pulse 66; Resp 18 S; Temp 97.4(TE); Pulse Ox 100% on R/A; Weight 93.89 kg ca1 (R); Height 5 ft. 5 in. (165.10 cm) (R); Pain 0/10; 20:09 BP 126 / 42; Pulse 69; Resp 18 S; Pulse Ox 100% on R/A; ca1 23:12 BP 140 / 63; Pulse 61; Resp 18; Pulse Ox 99% on R/A; ea 02/15 00:22 BP 132 / 48; Pulse 62; Resp 18; Pulse Ox 98% ; ea 01:30 BP 136 / 53; Pulse 60; Resp 18; Pulse Ox 99% ; ea 02:30 BP 144 / 63; Pulse 68; Resp 18; Pulse Ox 99% ; ea 03:00 BP 125 / 80; Pulse 68; Resp 18; Temp 97.7; ea 04:00 BP 132 / 54; Pulse 59; Resp 18; Pulse Ox 100% ; ea 05:00 BP 147 / 58; Pulse 60; Resp 18; Pulse Ox 99% ; ea 06:14 BP 152 / 63; Pulse 60; Resp 18; Pulse Ox 100% ; ea 06:30 BP 147 / 56; Pulse 66; Resp 18; Pulse Ox 100% ; sf 07:35 BP 118 / 56; Pulse 61; Resp 18; Pulse Ox 100% ; Pain 0/10; ld1 09:18 BP 153 / 59; Pulse 60; Resp 18; Pulse Ox 100% ; Pain 0/10; ld1 04 18:36 Body Mass Index 34.45 (93.89 kg, 165.10 cm) ca1 ED Course: 02/14 18:10 Patient arrived in ED. rg4 18:39 Triage completed. ca1 18:40 Arm band placed on right wrist. ca1 21:01 Denny Weber MD is Attending Physician. eliazar 21:10 Charlotte Martinez, RN is Primary Nurse. ea 21:21 XRAY Chest (1 view) In Process Unspecified. EDMS 21:39 Patient has correct armband on for positive identification. Bed in low position. Call ea light in reach. Side rails up X2. 21:39 Inserted saline lock: 20 gauge in right antecubital area, using aseptic technique. ea Blood collected. 22:10 Notified ED physician of a critical lab result(s). HGB of 6.1, HCT 20.0. Dr Weber bb notified. 22:17 Toribio Mayberry DO is Hospitalizing Provider. eliazar 0402 06:03 Sabar Coronel MD is Referral Physician. eliazar 06:16 AMMONIA Sent. sf 06:16 Lipase Sent. sf 06:16 PT-INR Sent. sf 06:16 NT PRO-BNP Sent. sf 06:16 Magnesium Sent. sf 06:16 LFT's Sent. sf 06:16 CBC with Diff Sent. sf 06:16 Basic Metabolic Panel Sent. sf 06:55 Carlos Diego MD is Hospitalizing Provider. eliazar 07:00 CT Abd/Pelvis - Without Contrast Sent. sf 07:02 Report given to LAINA He. sf 07:05 Primary Nurse role handed off by Charlotte Martinez, LAINA eb 07:06 CT Abd/Pelvis - Without Contrast In Process Unspecified. EDMS 07:25 Evelyn Stafford, LAINA is Primary Nurse. ld1 08:00 initiated a transfer with Nydia Ramirez from the [facility]. eb 08:00 Missed attempt(s): 20 gauge in left wrist. Bleeding controlled, band aid applied, jl7 catheter tip intact. 08:04 put transfer on hold with [facility] / patient's family requests that we try [facility] first. 08:05 initiated a transfer with Aurea from the [facility]/. eb 08:05 Missed attempt(s): 22 gauge in left forearm. Bleeding controlled, band aid applied, jl7 catheter tip intact. 08:10 Inserted saline lock: 20 gauge in left hand, using aseptic technique. jl7 08:12 Aurea from [facility] called to decline the patient in transfer due eb to being at capacity. 08:21 COVID-19 : Document "Date of Symptom Onset" if Symptomatic. Sent. ld1 08:23 COVID swab sent to lab. ld1 08:28 initiated a transfer with Mariana from the [facility] transfer [place]. eb 08:34 per Mariana at the [facility] Transfer Center BRIAN Nicole will have to decline due to being at capacity/ She will try the [facility]. 08:[address] Hawkins and the GI rehabilitation coordinator for [facility] with Dr. Leslie nesbitt for a patient transfer consultation. 08:43 T\\T\\S collected, blood band applied to patient. ld1 08:48 administrative approval given by Ynes Siegel Rn/ patient has been accepted to [facility] ER/ Dr. Finesse Solares has accepted the patient in transfer/ report to be called to [phone]. 10:19 No provider procedures requiring assistance completed. Patient transferred, IV remains ld1 in place. intact, No redness/swelling at site. Administered Medications: 02/14 21:11 Drug: NS 0.9% 1000 ml Route: IV; Rate: 125 ml/hr; Site: right antecubital; rr5 02/15 00:00 Follow up: IV Status: Completed infusion; IV Intake: 1000ml sf 02/14 21:37 Drug: ProTONIX 40 mg Route: IVP; Site: right antecubital; ea 22:35 Follow up: Response: No adverse reaction ea 23:25 Drug: Tylenol 650 mg Route: PO; ea 02/15 01:36 Follow up: Response: No adverse reaction rr5 02/14 23:25 Drug: Benadryl (diphenhydrAMINE) 12.5 mg Route: IVP; Site: right antecubital; ea 02/15 01:35 Follow up: Response: No adverse reaction rr5 01:35 Not Given (Patient Refused): Lactulose 30 grams 45 ml PO once rr5 08:19 Drug: Lasix (furosemide) 20 mg Route: IVP; Site: right antecubital; ld1 09:25 Follow up: Response: No adverse reaction ld1 08:20 Drug: Lactulose 30 grams Volume: 45 ml; Route: PO; ld1 09:26 Follow up: Response: No adverse reaction ld1 08:20 Drug: Cipro (ciprofloxacin) 400 mg Volume: 200 ml; Route: IVPB; Infused Over: 60 mins; ld1 Site: right antecubital; 09:26 Follow up: Response: No adverse reaction; IV Status: Completed infusion ld1 08:20 Drug: Flagyl 500 mg Volume: 100 ml; Route: IVPB; Rate: 200 ml/hr; Infused Over: 30 ld1 mins; Site: right antecubital; 09:25 Follow up: Response: No adverse reaction; IV Status: Completed infusion ld1 Intake: 00:00 IV: 1000ml; Total: 1000ml. sf Outcome: 02/14 22:19 Decision to Hospitalize by Provider. eliazar 04/02 06:03 Discharge ordered by . eliazar 06:56 Decision to Hospitalize by Provider. eliazar 08:51 ER care complete, transfer ordered by . ma2 10:19 Transferred by ground EMS to other acute care facility: [facility]. ld1 10:19 Condition: stable 10:19 Discharge instructions given to patient, family, Instructed on the need for transfer, Demonstrated understanding of instructions. 10:20 Patient left the ED. ld1 Signatures: Dispatcher [employer] EDDenny Jaimes MD MD cha Ballard, Brenda RN Cecilia Liz rg4 Neri Zapata RN RN jl7 Charlotte Martinez RN RN ea Alzahri, Mohammad, MD MD ma2 Botello, Elizabeth eb Roque, Raymond RN RN rr5 Radha Durán RN RN ca1 Fitzpatrick, Steven, RN RN sf Evelyn Stafford RN RN ld1 Corrections: (The following items were deleted from the chart) 02/14 20:11 20:09 BP 126 / 42; Pulse 69bpm; Resp 18bpm; Spontaneous; Pulse Ox 100% RA; ca1 ca1 23:09 21:20 Derm: Skin is pink, warm \\T\\ dry. ea ray 02/15 03:03 02:30 BP 125 / 80; Pulse 68bpm; Resp 18bpm; Temp 97.7F; ray bell
--- NOTE | 2021-02-14 22:20 | EDPHYS ---
Physician Documentation [facility] Name: Rena Burch Age: 70 yrs Sex: Female : 1950 Arrival Date: 02/14/2021 Time: 18:10 Bed 7 Private MD: PAVEL Physician Denny Weber HPI: 02/14 21:58 This 70 yrs old Female presents to ER via Wheelchair with complaints of eliazar Abnormal Lab Results. 21:58 had routine lab work done the other day, told hgb was 6.8. Onset: The symptoms/episode eliazar began/occurred 2 day(s) ago. Severity of symptoms: At their worst the symptoms were mild in the emergency department the symptoms are unchanged. The patient has not experienced similar symptoms in the past. Historical: - Allergies: 18:40 No Known Allergies; ca1 - Home Meds: 02/15 08:31 atorvastatin 10 mg oral tab 1 tab once daily [Active]; metoprolol tartrate 100 mg Oral ld1 tab 1 tab 2 times per day [Active]; Breo Ellipta 100-25 mcg/dose inhalation dsdv [Active]; spironolactone 50 mg Oral tab 1 tab once daily [Active]; furosemide 40 mg Oral tab 1 tab 2 times per day [Active]; aspirin 81 mg Oral TbEC 1 tab once daily [Active]; Xifaxan 550 mg oral tab [Active]; omeprazole 40 mg Oral cpDR 1 cap once daily [Active]; - PMHx: 02/14 18:40 Diabetes - IDDM; COPD; fatty liver; Hypertension; Psoriatic Arthritis; ca1 - PSHx: 18:40 Hysterectomy; right ankle; right wrist; double mastectomy; ca1 - Immunization history:: Client reports receiving the 2nd dose of the Covid vaccine, Date received: February 04, 2021 Pneumococcal vaccine is up to date, Flu vaccine is up to date. - Social history:: Smoking status: Patient denies any tobacco usage or history of. ROS: 21:59 Constitutional: Negative for fever, chills, and weight loss, Eyes: Negative for injury, eliazar pain, redness, and discharge, ENT: Negative for injury, pain, and discharge, Neck: Negative for injury, pain, and swelling, Cardiovascular: Negative for chest pain, palpitations, and edema, Respiratory: Negative for shortness of breath, cough, wheezing, and pleuritic chest pain, Abdomen/GI: Negative for abdominal pain, nausea, vomiting, diarrhea, and constipation, Back: Negative for injury and pain, : Negative for injury, bleeding, discharge, and swelling, MS/Extremity: Negative for injury and deformity, Neuro: Negative for headache, weakness, numbness, tingling, and seizure, Psych: Negative for depression, anxiety, suicide ideation, homicidal ideation, and hallucinations, Allergy/Immunology: Negative for hives, rash, and allergies, Endocrine: Negative for neck swelling, polydipsia, polyuria, polyphagia, and marked weight changes, Hematologic/Lymphatic: Negative for swollen nodes, abnormal bleeding, and unusual bruising. 21:59 Skin: Positive for pallor. Exam: 21:59 Constitutional: This is a well developed, well nourished patient who is awake, alert, eliazar and in no acute distress. Head/Face: Normocephalic, atraumatic. Eyes: Pupils equal round and reactive to light, extra-ocular motions intact. Lids and lashes normal. Conjunctiva and sclera are non-icteric and not injected. Cornea within normal limits. Periorbital areas with no swelling, redness, or edema. ENT: Nares patent. No nasal discharge, no septal abnormalities noted. Tympanic membranes are normal and external auditory canals are clear. Oropharynx with no redness, swelling, or masses, exudates, or evidence of obstruction, uvula midline. Mucous membranes moist. Neck: Trachea midline, no thyromegaly or masses palpated, and no cervical lymphadenopathy. Supple, full range of motion without nuchal rigidity, or vertebral point tenderness. No Meningismus. Chest/axilla: Normal chest wall appearance and motion. Nontender with no deformity. No lesions are appreciated. Cardiovascular: Regular rate and rhythm with a normal S1 and S2. No gallops, murmurs, or rubs. Normal PMI, no JVD. No pulse deficits. Respiratory: Lungs have equal breath sounds bilaterally, clear to auscultation and percussion. No rales, rhonchi or wheezes noted. No increased work of breathing, no retractions or nasal flaring. Abdomen/GI: Soft, non-tender, with normal bowel sounds. No distension or tympany. No guarding or rebound. No evidence of tenderness throughout. Back: No spinal tenderness. No costovertebral tenderness. Full range of motion. Female : Normal external genitalia. MS/ Extremity: Pulses equal, no cyanosis. Neurovascular intact. Full, normal range of motion. Neuro: Awake and alert, GCS 15, oriented to person, place, time, and situation. Cranial nerves II-XII grossly intact. Motor strength 5/5 in all extremities. Sensory grossly intact. Cerebellar exam normal. Normal gait. Psych: Awake, alert, with orientation to person, place and time. Behavior, mood, and affect are within normal limits. 21:59 Abdomen/GI: Rectal exam: is unremarkable, rectal tone normal, Stool: guaiac negative, hemorrhoid(s), are not appreciated, mass, is not appreciated, swelling, is not appreciated, tenderness, is not appreciated, fecal impaction, is not appreciated. 21:59 Skin: Appearance: Color: pale, Temperature: normal temperature, Moisture: normal moisture, petechiae, not noted, ecchymosis, not noted. 02/15 07:05 Abdomen/GI: pt stated throughout the night left sided abdominal pain began, said ever eliazar since the transfusion began, my abdomen has been increasingly painful. Vital Signs: 02/14 18:36 BP 138 / 56; Pulse 66; Resp 18 S; Temp 97.4(TE); Pulse Ox 100% on R/A; Weight 93.89 kg ca1 (R); Height 5 ft. 5 in. (165.10 cm) (R); Pain 0/10; 20:09 BP 126 / 42; Pulse 69; Resp 18 S; Pulse Ox 100% on R/A; ca1 23:12 BP 140 / 63; Pulse 61; Resp 18; Pulse Ox 99% on R/A; ea 02/15 00:22 BP 132 / 48; Pulse 62; Resp 18; Pulse Ox 98% ; ea 01:30 BP 136 / 53; Pulse 60; Resp 18; Pulse Ox 99% ; ea 02:30 BP 144 / 63; Pulse 68; Resp 18; Pulse Ox 99% ; ea 03:00 BP 125 / 80; Pulse 68; Resp 18; Temp 97.7; ea 04:00 BP 132 / 54; Pulse 59; Resp 18; Pulse Ox 100% ; ea 05:00 BP 147 / 58; Pulse 60; Resp 18; Pulse Ox 99% ; ea 06:14 BP 152 / 63; Pulse 60; Resp 18; Pulse Ox 100% ; ea 06:30 BP 147 / 56; Pulse 66; Resp 18; Pulse Ox 100% ; sf 07:35 BP 118 / 56; Pulse 61; Resp 18; Pulse Ox 100% ; Pain 0/10; ld1 09:18 BP 153 / 59; Pulse 60; Resp 18; Pulse Ox 100% ; Pain 0/10; ld1 04 18:36 Body Mass Index 34.45 (93.89 kg, 165.10 cm) ca1 MDM: 02/14 21:01 Patient medically screened. [facility] 22:01 Data reviewed: vital signs, nurses notes, lab test result(s), EKG, radiologic studies, eliazar plain films. Data interpreted: business test analyst: Pulse oximetry:. Test interpretation: by ED physician or midlevel provider: ECG, plain radiologic studies. Counseling: I had a detailed discussion with the patient and/or guardian regarding: the historical points, exam findings, and any diagnostic results supporting the discharge/admit diagnosis, lab results, the need for further work-up and treatment in the hospital. 02/15 06:57 ED course: HGB WENT FROM 6.1TO 6.9, REPEAT RECTAL NEGATIVE WAS THE FIRST ONE, WILL eliazar OBS TO DR DIEGO, CT ABD/PEL AND LASIX 20 MG SIVP, ONE MORE PACKED RBC. 08:46 ED course: Dr. Epperson recommending transferring this patient as her HB did not well ma2 respond to transfusion and she has melena. I reevaluated the patient and she stable for transfer. discussed with gi dr. Zelaya and accepted by dr. Estrada hospitalist at [facility]. we dont have GI in our hospital today. will transfer for higher level of care . 02/14 21:04 Order name: Basic Metabolic Panel [facility] 02/14 21:04 Order name: CBC with Diff [facility] 02/14 21:04 Order name: LFT's [facility] 02/14 21:04 Order name: Magnesium [facility] 02/14 21:04 Order name: NT PRO-BNP [facility] 02/14 21:04 Order name: PT-INR [facility] 02/14 21:04 Order name: Troponin (emerg Dept Use Only); Complete Time: 23:26 [facility] 02/14 21:04 Order name: Retic Count; Complete Time: 23:26 [facility] 02/14 21:04 Order name: Folic Acid,Serum (folate); Complete Time: 23:26 [facility] 02/14 21:04 Order name: B12; Complete Time: 23:26 [facility] 02/14 21:04 Order name: TIBC; Complete Time: 23:26 [facility] 02/14 21:04 Order name: Ferritin; Complete Time: 23:26 [facility] 02/14 21:04 Order name: Type And Screen [facility] 02/14 21:04 Order name: Basic Metabolic Panel; Complete Time: 23:26 EDMN 02/14 21:04 Order name: CBC with Automated Diff; Complete Time: 23:26 EDMN 02/14 21:04 Order name: Liver (Hepatic) Function; Complete Time: 23:26 EDMN 02/14 21:04 Order name: Magnesium; Complete Time: 23:26 EDMN 02/14 21:04 Order name: NT PRO-BNP; Complete Time: 23:26 EDMN 02/14 21:04 Order name: Protime (+INR); Complete Time: 22:30 EDMN 02/14 21:54 Order name: AMMONIA [facility] 02/14 21:54 Order name: Ammonia; Complete Time: 23:26 EDMN 02/14 21:57 Order name: Lipase [facility] 02/14 21:57 Order name: Lipase; Complete Time: 23:26 EDMN 02/14 22:10 Order name: CBC Smear Scan; Complete Time: 23:26 EDMN 02/14 23:29 Order name: Packed RBC Leukored EDMN 02/15 02:12 Order name: CBC with Diff: 1 POST CBC; Complete Time: 06:49 [facility] 02/15 06:57 Order name: Bb Add On eb 02/15 07:53 Order name: COVID-19 : Document "Date of Symptom Onset" if Symptomatic. 02/14 21:04 Order name: XRAY Chest (1 view) [facility] 02/14 21:04 Order name: Cardiac monitoring; Complete Time: 21:41 [facility] 02/14 21:04 Order name: EKG - Nurse/Tech; Complete Time: 21:41 [facility] 02/14 21:04 Order name: IV Saline Lock; Complete Time: 21:41 [facility] 02/14 21:04 Order name: Labs collected and sent; Complete Time: 21:41 [facility] 02/14 21:04 Order name: O2 Per Protocol; Complete Time: 21:41 [facility] 02/14 21:04 Order name: O2 Sat Monitoring; Complete Time: 21:51 eliazar 02/14 22:35 Order name: Transfuse; Complete Time: 01:36 eliazar 02/15 06:52 Order name: CT Abd/Pelvis - Without Contrast; Complete Time: 07:54 eliazar 02/15 08:30 Order name: Type And Screen iw 02/15 08:30 Order name: Type and Screen EDMS 02/15 08:31 Order name: Labs - recollect needed: T\\T\\S, please coral, unable to read band from yesterday; Complete Time: 08:43 02/15 09:52 Order name: SARS-COV-2 RT PCR EDMS Administered Medications: 02/14 21:11 Drug: NS 0.9% 1000 ml Route: IV; Rate: 125 ml/hr; Site: right antecubital; rr5 02/15 00:00 Follow up: IV Status: Completed infusion; IV Intake: 1000ml sf 02/14 21:37 Drug: ProTONIX 40 mg Route: IVP; Site: right antecubital; ea 22:35 Follow up: Response: No adverse reaction ea 23:25 Drug: Tylenol 650 mg Route: PO; ea 02/15 01:36 Follow up: Response: No adverse reaction rr5 02/14 23:25 Drug: Benadryl (diphenhydrAMINE) 12.5 mg Route: IVP; Site: right antecubital; ea 02/15 01:35 Follow up: Response: No adverse reaction rr5 01:35 Not Given (Patient Refused): Lactulose 30 grams 45 ml PO once rr5 08:19 Drug: Lasix (furosemide) 20 mg Route: IVP; Site: right antecubital; ld1 09:25 Follow up: Response: No adverse reaction ld1 08:20 Drug: Lactulose 30 grams Volume: 45 ml; Route: PO; ld1 09:26 Follow up: Response: No adverse reaction ld1 08:20 Drug: Cipro (ciprofloxacin) 400 mg Volume: 200 ml; Route: IVPB; Infused Over: 60 mins; ld1 Site: right antecubital; 09:26 Follow up: Response: No adverse reaction; IV Status: Completed infusion ld1 08:20 Drug: Flagyl 500 mg Volume: 100 ml; Route: IVPB; Rate: 200 ml/hr; Infused Over: 30 ld1 mins; Site: right antecubital; 09:25 Follow up: Response: No adverse reaction; IV Status: Completed infusion ld1 Disposition: 02/15/21 08:51 Transfer ordered to Other Acute Care Facility. Diagnosis is Gastrointestinal hemorrhage, unspecified. - Reason for transfer: Higher level of care. - Accepting physician is Dr. Zelaya and Dr. Hamilton. - Condition is Stable. - Problem is new. - Symptoms are unchanged. Signatures: Dispatcher [employer] EDMN Denny Weber MD MD cha Williams, Irene, RN RN iw Dada Elias, HEAD ATHLETIC TRAINER/STRENGTH COACH-C HEAD ATHLETIC TRAINER/STRENGTH COACH-Cla1 Charlotte Martinez RN RN ea Alzahri, Mohammad, MD MD ma2 Nydia Alvarado Raymond RN RN rr5 Radha Durán RN RN ca1 Evelyn Stafford RN RN ld1 Mason Cortés RN sf Corrections: (The following items were deleted from the chart) 02/14 21:05 21:05 FERRITIN+C.LAB.BRZ ordered. [facility] EDMN 23:27 22:19 Hospitalization Ordered by Toribio Mayberry DO for Observation. Preliminary eliazar diagnosis is Fatty (change of) liver, not elsewhere classified - LEE; Unspecified cirrhosis of liver; Anemia, unspecified; Type 1 diabetes mellitus; Weakness. Bed requested for Telemetry/MedSurg (observation). Status is Observation. Condition is Fair. Problem is new. Symptoms have improved. eliazar 02/15 06:52 06:03 02/15/2021 06:03 Discharged to Home. Impression: Fatty (change of) liver, not eliazar elsewhere classified - LEE; Unspecified cirrhosis of liver; Anemia, unspecified; Type 1 diabetes mellitus; Encephalopathy, unspecified - HEPATIC. Condition is Stable. Discharge Instructions: Blood Transfusion, Adult, Type 1 Diabetes Mellitus, Diagnosis, Adult, Diabetes Mellitus and Food, Blood Transfusion, [id number], Nonalcoholic Fatty Liver Disease Diet. Prescriptions for Vitamin 27-0.8 mg Oral Tablet - take 1 tablet by ORAL route once daily; 30 tablet, Protonix 40 mg Oral Tablet - take 1 tablet by ORAL route once daily; 30 tablet, Zofran 8 mg Oral Tablet - take 1 tablet by ORAL route every 12 hours As needed; 14 tablet, Lactulose 10 gram/15 mL Oral Solution - take 30 milliliter by ORAL route once daily; 300 milliliter. and Forms are Medication Reconciliation Form, Thank You Letter, Antibiotic Education, Prescription Opioid Use. Follow up: Private Physician; When: 2 - 3 days; Reason: Recheck today's complaints, Continuance of care, Re-evaluation by your physician. Follow up: Sabra Coronel; When: 2 - 3 days; Reason: Recheck today's complaints, Re-evaluation by your physician. Problem is new. Symptoms have improved. eliazar 07:07 06:56 Hospitalization Ordered by Carlos Diego MD for Observation. Preliminary eliazar diagnosis is Fatty (change of) liver, not elsewhere classified; Obesity, unspecified; Anemia, unspecified; Unspecified kidney failure - ACUTE ON CHRONIC; Type 1 diabetes mellitus. Bed requested for Telemetry/MedSurg (observation). Status is Observation. Condition is Stable. Problem is new. Symptoms have improved. eliazar 08:34 08:25 Packed RBCs (Additional Unit) ordered. [facility] EDMS 08:49 07:07 02/15/2021 06:56 Hospitalization Ordered by Carlos Diego MD for Observation. ma2 Preliminary diagnosis is Fatty (change of) liver, not elsewhere classified; Obesity, unspecified; Anemia, unspecified; Unspecified kidney failure - ACUTE ON CHRONIC; Type 1 diabetes mellitus; Ascites. Bed requested for Telemetry/MedSurg (observation). Status is Observation. Condition is Stable. Problem is new. Symptoms have improved. eliazar 09:09 07:53 CORONAVIRUS ordered. [facility] EDMS 09:21 08:51 02/15/2021 08:51 Transfer ordered to Other Acute Care Facility. Diagnosis is eb Gastrointestinal hemorrhage, unspecified. Reason for transfer: Higher level of care. Accepting physician is Dr. Zelaya and dr. Estrada. Condition is Stable. Problem is new. Symptoms are unchanged. ma2 10:20 09:21 02/15/2021 08:51 Transfer ordered to Other Acute Care Facility. Diagnosis is ld1 Gastrointestinal hemorrhage, unspecified. Reason for transfer: Higher level of care. Accepting physician is Dr. Zelaya and Dr. Hamilton. Condition is Stable. Problem is new. Symptoms are unchanged. eb
[2021-02-14 22:38] LABS: ALT/SGPT 21 U/L (12-78); AST/SGOT 33 U/L (15-37); Albumin 2.3 g/dL (3.4-5.0); Alkaline Phosphatase 85 U/L (45-117); BUN Blood Urea Nitrogen 31 mg/dL (7-18); Bicarbonate 26 mmol/L (21-32); Bilirubin Direct 0.2 mg/dL (0-0.2); Bilirubin Total 0.5 mg/dL (0.2-1.0); Ferritin 11.8 ng/mL (8-388); Folic Acid, (Folate) 9.4 ng/mL (3.1-17.5); Glucose Level 185 mg/dL (74-106); NT PRO-BNP 305 pg/mL (<125); Potassium 4.2 mmol/L (3.5-5.1); Protein, Total 6.7 g/dL (6.4-8.2); Sodium Level 139 mmol/L (136-145); Transferrin 300 mg/dL (200-360); Troponin (Emerg Dept Use Only) < 0.02 ng/mL (0.0-0.045)
[2021-02-14 23:02] LABS: Anisocytosis 2+; Blood Morphology Comment NOTED (NOT SEEN); Elliptocytes 1+; Hypochromasia 2+; Platelet Estimate DECR; White Blood Cell Scan OK (OK)
[2021-02-14] MEDS ORDERED: ACETAMINOPHEN 325 MG TABLET ONE (23:34)
[2021-02-14] MEDS ORDERED: DIPHENHYDRAMINE 50 MG/ML VIAL ONE (23:34)
[2021-02-14] MEDS ORDERED: LACTULOSE 20 GM/30 ML UCUP ONE (23:51)
[2021-02-15 06:22] LABS: Absolute Lymphocytes (CBC) 0.8 K/uL (0.7-4.9); Basophils % 1.1 % (0-1.3); Hematocrit 22.5 % (36.0-45.0); Lymphocytes % 22.3 % (15.3-44.8); MPV 10.1 fL (7.6-11.3); RBC Red Blood Cell Count 3.07 M/uL (3.86-4.86)
--- NOTE | 2021-02-15 07:36 | RAD REPORT ---
EXAM DESCRIPTION: CT - Abdomen Pelvis Wo Contrast - 02/15/2021 7:06 am CLINICAL HISTORY: ABD PAIN COMPARISON: CT abdomen and pelvis imaging August 2019 TECHNIQUE: Axial [address] imaging of the abdomen and pelvis was performed without IV contrast. No IV contrast was given because of allergy, abnormal renal function, patient refusal or physician re quest. No oral contrast administered. All CT scans are performed using dose optimization technique as appropriate and may include automated exposure control or mA/KV adjustment according to patient size. FINDINGS: No suspicious findings in the lung bases. Liver is abnormal with diminished size and pronounced lobulation of the capsule contour. No focal les ions seen. Lesion detection sensitivity is substantially diminished in the absence of contrast. Liver appears to have for the diminished in size since 2019. Borderline to mild splenomegaly has not ram ed. No pancreatic acute process. No biliary tree dilatation. No gross gallbladder abnormality seen. G allstones can be occult on CT imaging. No hydronephrosis or suspicious renal mass. No significant adrenal finding. Isodense renal masses an d pyelonephritis cannot be excluded in the absence of IV contrast. The urinary bladder is without sig nificant finding. Uterus is absent. Ovaries are absent, atrophic or obscured by isodense adjacent bow el. No dilated bowel loops or bowel wall thickening. Appendix is not uniquely identifiable. No acute aaron l process identified. Large volume of ascites is present. No free air or pneumatosis. No hernia, mass or bulky lymphadenop athy. There is faint suggestion of a rounded cystic mass in the upper right pelvis. This is isodense to the ascites and is probably artifact. No focal omental abnormality seen. Fluid retention in the subcutaneous fatty tissues present. No acute bone finding. Degenerative change s are present. IMPRESSION: Large volume of ascites. Progressive cirrhotic liver changes since 2018. No gross liver lesions seen. This exam was not suffic ient for evaluation of any possible liver parenchymal lesions. Subtle suggestion of a rounded 7 centimeter cystic mass in the upper right pelvis, isodense to the as cites, is more likely a artifact than true finding. This can be re-evaluated if the ascites is strain ed. Limited abdominal ultrasound could be utilized as well. Full assessment is limited is the absence of IV contrast.
[2021-02-15] MEDS ORDERED: CIPROFLOXACIN 400mg IV 400 MG/200 ML BAG IV ONE (08:02)
[2021-02-15] MEDS ORDERED: METRONIDAZOLE 500mg IVPB 500 MG/100 ML BAG IV ONE (08:02)
[2021-02-15] MEDS ORDERED: FUROSEMIDE 20 MG/ 2ML VIAL ONE (08:02)
[2021-02-15] MEDS ORDERED: LACTULOSE 20 GM/30 ML UCUP ONE (08:02)
--- NOTE | 2021-02-15 09:12 | RAD REPORT ---
EXAM DESCRIPTION: RAD - Chest Single View - 02/14/2021 9:22 pm CLINICAL HISTORY: CHEST PAIN COMPARISON: Portable June 2020 TECHNIQUE: AP portable chest image was obtained 02/14/2021 9:22 pm . FINDINGS: Lung volumes are very low. No acute lung parenchymal process seen. No failure or volume ov erload. Heart and vasculature are normal. No measurable pleural effusion and no pneumothorax. No acut e bony abnormality seen. No acute aortic findings suspected. IMPRESSION: No acute cardiopulmonary process.
[2021-02-16 01:09] VITALS: TEMP 97.7
[2021-02-16 01:13] VITALS: O2SAT 100
[2021-02-16 01:18] VITALS: BP 153/59
== END 2021-02-15 10:20 ==
LOC: ER 18:09
PROC: 30233N1 Transfusion of Nonautologous Red Blood Cells into Peripheral Vein, Percutaneous Approach (ICD-10-PCS; principal; 2021-02-15)
DX: K92.2 Gastrointestinal hemorrhage, unspecified (principal); I10 Essential (primary) hypertension; E11.9 Type 2 diabetes mellitus without complications; J44.9 Chronic obstructive pulmonary disease, unspecified; Z79.82 Long term (current) use of aspirin; Z20.822 Contact with and (suspected) exposure to COVID-19
CPT/HCPCS: 96365; 96361; 96368; 85025 ×2; 80048; 36415; 82140; 86900 ×2; 83735; 86850 ×2; 85610; 85044; 86901 ×2; 80076; 84484; 82728; 82746; 82607; 83690; 83540; 83880; 84466; 74176; 71045; 96375; 99285; 36430; U0003; J1940; J1200; C9113; P9016 ×2; J7030; J0744

== ENCOUNTER 2021-07-01 07:45 | Day surgery (SDC) | payer OTHER, BC ==
[2021-07-01 09:11] VITALS: O2SAT 100; BMI 37.4
[2021-07-01] MEDS ORDERED: ALBUMIN HUMAN 25% 300 ML IV ONE (11:05)
[2021-07-01 11:12] LABS: Body Fluid WBC 146 /mm^3
--- NOTE | 2021-07-01 11:15 | RAD REPORT ---
EXAM DESCRIPTION: US - Paracentesis Proc Guidance - 07/01/2021 10:32 am CLINICAL HISTORY: ASCITES Ascites COMPARISON: No comparisons FINDINGS: Informed consent was obtained and time-out was performed. Patient's abdomen was prepped and draped in the usual sterile fashion. 1% lidocaine was used for loca l anesthetic purposes. A small skin incision was made. A paracentesis catheter was guided into the peroneal cavity under son ographic guidance. A small amount of fluid was sent for requested lab studies. A large volume paracentesis was performed . The patient tolerated the procedure well. Patient was administered IV albumin per protocol following the procedure. IMPRESSION: Successful ultrasound-guided paracentesis.
[2021-07-01 11:43] VITALS: TEMP 97
[2021-07-01 12:25] VITALS: BP 147/58
[2021-07-01 14:49] LABS: Appearance CLEAR (CLEAR); Body Fluid Source PERITONEAL; Color of fluid Yellow (COLORLESS)
== END 2021-07-01 12:35 | disposition home or self-care (01) ==
LOC: DS 07:45
PROVIDERS: ATTEND Internal Medicine Gastroenterology
DX: R18.8 Other ascites (principal); K74.69 Other cirrhosis of liver
CPT/HCPCS: 87070; 36415; 89050; 96365; 49083; 96366; P9047

== ENCOUNTER 2021-08-05 08:42 | Day surgery (SDC) | payer OTHER, BC ==
[2021-08-05 10:03] VITALS: BMI 35.2
--- NOTE | 2021-08-05 10:26 | RAD REPORT ---
EXAM DESCRIPTION: US - Paracentesis Proc Guidance - 08/05/2021 9:48 am CLINICAL HISTORY: ASCITES Ascites COMPARISON: Paracentesis Proc Guidance dated 07/01/2021 FINDINGS: Informed consent was obtained and time-out was performed. Patient's abdomen was prepped and draped in the usual sterile fashion. 1% lidocaine was used for loca l anesthetic purposes. A small skin incision was made in the right lower quadrant region. A paracentesis catheter was guided into the peroneal cavity under sonographic guidance. A small amount of fluid was sent for requested lab studies. A large volume paracentesis was performed . The patient tolerated the procedure well. Patient was administered IV albumin per protocol following the procedure. IMPRESSION: Successful ultrasound-guided paracentesis.
[2021-08-05] MEDS ORDERED: ALBUMIN HUMAN 25% 300 ML IV ONE (11:14)
[2021-08-05 13:53] LABS: Body Fluid Source PERITONEAL; Color of fluid Yellow (COLORLESS)
[2021-08-05 13:54] LABS: Appearance CLEAR (CLEAR)
[2021-08-05 13:57] LABS: Body Fluid WBC 138 /mm^3
[2021-08-05 15:20] VITALS: BP 164/58; TEMP 97.1; O2SAT 98
== END 2021-08-05 12:25 | disposition home or self-care (01) ==
LOC: DS 08:42
PROVIDERS: ATTEND Internal Medicine Gastroenterology
DX: R18.8 Other ascites (principal); K74.69 Other cirrhosis of liver
CPT/HCPCS: 87070; 36415; 89050; 96365; 49083; 96366; P9047

== ENCOUNTER 2021-08-26 09:43 | Day surgery (SDC) | payer OTHER, BC ==
[2021-08-26 10:16] VITALS: O2SAT 100; BMI 35.2
--- NOTE | 2021-08-26 12:35 | RAD REPORT ---
EXAM DESCRIPTION: US - Paracentesis Proc Guidance - 08/26/2021 10:58 am CLINICAL HISTORY: Ascites COMPARISON: Multiple prior paracentesis procedures TECHNIQUE: The patient presents for ultrasound-guided paracentesis. The procedure, risks and altern atives were discussed with the patient in detail. Oral and written consent were obtained. Time out p rocedure was performed. The patient had no contraindicated allergy or medication history. PT, INR va lues within acceptable limits. Preliminary sonographic evaluation identified right lower quadrant access site. The skin and deeper tissues were anesthetized with 1 percent lidocaine. Under direct sonographic visualization, a parace ntesis catheter was advanced into the peritoneal cavity. Approximately 15 mL of ascites was retained for requested laboratory studies. Large volume drainage was initiated. Approximately 11 liters of asc ites removed. At the conclusion of the procedure, catheter was withdrawn and a bandage placed at the puncture site. Postprocedure care and precaution instructions were given to the patient. Patient was transferred to the same day surgical area for pending albumin infusion utilizing referring physician protocol. IMPRESSION: Ultrasound-guided paracentesis as detailed.
[2021-08-26] MEDS ORDERED: ALBUMIN HUMAN 25% 300 ML IV ONE (12:50)
[2021-08-26 14:35] VITALS: BP 158/52; TEMP 97.3
[2021-08-26 16:57] LABS: Body Fluid Source PERITONEAL; Color of fluid Yellow (COLORLESS)
[2021-08-26 16:58] LABS: Appearance CLEAR (CLEAR); Body Fluid WBC 15 /mm^3
== END 2021-08-26 13:45 | disposition home or self-care (01) ==
LOC: DS 09:43
PROVIDERS: ATTEND Internal Medicine Gastroenterology
DX: R18.8 Other ascites (principal); K74.69 Other cirrhosis of liver
CPT/HCPCS: 87070; 36415; 82150; 89050; 84157; 82042; 96365; 49083; 96366; P9047

== ENCOUNTER 2021-09-24 08:41 | Day surgery (SDC) | payer OTHER, BC ==
[2021-09-24 09:27] VITALS: BMI 35.7
[2021-09-24] MEDS ORDERED: ALBUMIN HUMAN 25% 300 ML IV ONE (10:26)
--- NOTE | 2021-09-24 10:42 | RAD REPORT ---
EXAM DESCRIPTION: US - Paracentesis Proc Guidance - 09/24/2021 9:54 am CLINICAL HISTORY: ASCITES Ascites COMPARISON: Paracentesis Proc Guidance dated 08/26/2021 FINDINGS: Informed consent was obtained and time-out was performed. Patient's abdomen was prepped and draped in the usual sterile fashion. 1% lidocaine was used for loca l anesthetic purposes. A small skin incision was made in the right lower quadrant region. A paracentesis catheter was guided into the peroneal cavity under sonographic guidance. A small amount of fluid was sent for requested lab studies. A large volume paracentesis was performed . The patient tolerated the procedure well. Patient was administered IV albumin per protocol following the procedure. IMPRESSION: Successful ultrasound-guided paracentesis.
[2021-09-24 12:12] LABS: Appearance CLEAR (CLEAR); Body Fluid Source PERITONEAL; Color of fluid Yellow (COLORLESS)
[2021-09-24 12:13] LABS: Body Fluid WBC 133 /mm^3
[2021-09-24 15:46] VITALS: BP 170/55; TEMP 97.2; O2SAT 98
== END 2021-09-24 11:35 | disposition home or self-care (01) ==
LOC: DS 08:41
PROVIDERS: ATTEND Internal Medicine Gastroenterology
DX: K74.69 Other cirrhosis of liver (principal); R18.8 Other ascites
CPT/HCPCS: 87070; 36415; 82150; 89050; 84157; 82042; 96365; 49083; P9047

== ENCOUNTER 2021-11-01 08:46 | Day surgery (SDC) | payer OTHER, BC ==
[2021-11-01 09:28] VITALS: O2SAT 100; BMI 36.4
--- NOTE | 2021-11-01 10:38 | RAD REPORT ---
EXAM DESCRIPTION: US - Paracentesis Proc Guidance - 11/01/2021 10:24 am CLINICAL HISTORY: ASCITES Ascites COMPARISON: Paracentesis Proc Guidance dated 09/24/2021 FINDINGS: Informed consent was obtained and time-out was performed. Patient's abdomen was prepped and draped in the usual sterile fashion. 1% lidocaine was used for loca l anesthetic purposes. A small skin incision was made in the right lower quadrant. A paracentesis catheter was guided into t he peroneal cavity under sonographic guidance. A small amount of fluid was sent for requested lab studies. A large volume paracentesis was performed . The patient tolerated the procedure well. Patient was administered IV albumin per protocol following the procedure. IMPRESSION: Successful ultrasound-guided paracentesis.
[2021-11-01] MEDS ORDERED: ALBUMIN HUMAN 25% 300 ML IV ONE (11:07)
[2021-11-01 12:39] VITALS: BP 134/42; TEMP 98.2
[2021-11-01 12:55] LABS: Body Fluid Source PERITONEAL; Color of fluid Yellow (COLORLESS)
[2021-11-01 12:56] LABS: Appearance SLT. TURBID (CLEAR); Body Fluid WBC 125 /mm^3
== END 2021-11-01 12:23 | disposition home or self-care (01) ==
LOC: DS 08:46
PROVIDERS: ATTEND Internal Medicine Gastroenterology
DX: R18.8 Other ascites (principal); K74.69 Other cirrhosis of liver
CPT/HCPCS: 87070; 36415; 82150; 89050; 84157; 82042; 96365; 49083; P9047

== ENCOUNTER 2021-11-27 08:09 | Day surgery (SDC) | payer OTHER, BC ==
[2021-11-27 08:37] VITALS: BMI 35.4
[2021-11-27] MEDS ORDERED: ALBUMIN HUMAN 25% 300 ML IV ONE (10:05)
--- NOTE | 2021-11-27 10:16 | RAD REPORT ---
EXAM DESCRIPTION: US - Paracentesis Proc Guidance - 11/27/2021 9:28 am CLINICAL HISTORY: Ascites, patient gives history of multiple paracentesis procedures with volumes re moved up to 14 liters. COMPARISON: Paracentesis November 01, 2021 TECHNIQUE: The patient presents for ultrasound-guided paracentesis. The procedure, risks and altern atives were discussed with the patient in detail. Oral and written consent were obtained. Time out p rocedure was performed. The patient had no contraindicated allergy or medication history. PT, INR va lues within acceptable limits. Preliminary sonographic evaluation identified right lower quadrant access site. The skin and deeper tissues were anesthetized with 1 percent lidocaine. Under direct sonographic visualization, a parace ntesis catheter was advanced into the peritoneal cavity. Approximately 10 mL of ascites retained for requested laboratory studies. Large volume drainage was initiated. Approximately 11.5 liters of ascit es removed. At the conclusion of the procedure, catheter was withdrawn and a bandage placed at the puncture site. Postprocedure care and precaution instructions were given to the patient. Patient was transferred b [facility] to the same day surgical area for pending albumin infusion. IMPRESSION: Ultrasound-guided paracentesis as detailed.
[2021-11-27 11:05] LABS: Appearance CLEAR (CLEAR); Body Fluid Source PERITONEAL; Color of fluid Yellow (COLORLESS)
[2021-11-27 11:06] LABS: Body Fluid WBC 94 /mm^3
[2021-11-27 12:37] VITALS: BP 130/42; TEMP 97.1; O2SAT 98
== END 2021-11-27 11:14 | disposition home or self-care (01) ==
LOC: DS 08:09
PROVIDERS: ATTEND Internal Medicine Gastroenterology
DX: R18.8 Other ascites (principal); K74.69 Other cirrhosis of liver
CPT/HCPCS: 87070; 36415; 82150; 89050; 84157; 82042; 96365; 49083; P9047

== ENCOUNTER 2021-12-25 08:33 | Day surgery (SDC) | payer OTHER, BC ==
[2021-12-25 09:28] LABS: Absolute Lymphocytes (CBC) 0.5 K/uL (0.7-4.9); Lymphocytes % 16.8 % (15.3-44.8); MPV 9.3 fL (7.6-11.3); RBC Red Blood Cell Count 3.22 M/uL (3.86-4.86)
[2021-12-25 09:36] LABS: Protime INR 1.34
[2021-12-25 09:39] VITALS: BMI 34.1
[2021-12-25 09:44] LABS: Phosphorus 2.9 mg/dL (2.5-4.9); Potassium 3.8 mmol/L (3.5-5.1)
[2021-12-25 09:54] LABS: Albumin 2.3 g/dL (3.4-5.0); Bilirubin Direct 0.4 mg/dL (0-0.2); Protein, Total 6.1 g/dL (6.4-8.2)
[2021-12-25] MEDS ORDERED: ALBUMIN HUMAN 25% 300 ML IV ONE (11:12)
--- NOTE | 2021-12-25 12:01 | RAD REPORT ---
EXAM DESCRIPTION: US - Paracentesis Proc Guidance - 12/25/2021 10:57 am CLINICAL HISTORY: Ascites COMPARISON: Multiple prior paracentesis procedures TECHNIQUE: The patient presents for ultrasound-guided paracentesis. The procedure, risks and altern atives were discussed with the patient in detail. Oral and written consent were obtained. Time out p rocedure was performed. The patient had no contraindicated allergy or medication history. Patient wa s 2 days off of 81 milligram aspirin therapy. Preliminary sonographic evaluation identified right lower quadrant access site. The skin and deeper tissues were anesthetized with 1 percent lidocaine. Under direct sonographic visualization, a parace ntesis catheter was advanced into the peritoneal cavity. Approximately 8 mL of ascites was retained f or requested laboratory studies. A Large volume drainage was initiated. Approximately 9 liters of asc ites removed. At the conclusion of the procedure, catheter was withdrawn and a bandage placed at the puncture site. Postprocedure care and precaution instructions were given to the patient. Patient was transferred t o same-day surgery for postprocedure monitoring and albumin infusion utilizing referring physician fatimah boo. IMPRESSION: Ultrasound-guided paracentesis as detailed.
[2021-12-25 13:44] VITALS: TEMP 97.7
[2021-12-25 13:47] VITALS: BP 159/60; O2SAT 96
[2021-12-25 14:03] LABS: Body Fluid WBC 115 /mm^3
[2021-12-25 17:11] LABS: Appearance SLT. TURBID (CLEAR); Body Fluid Source PERITONEAL; Color of fluid Yellow (COLORLESS)
[2021-12-26 00:01] LABS: Magnesium 1.9
[2021-12-31 05:04] LABS: TOTAL PROTEIN,PERITONEAL FLUID <3.0 g/dL
== END 2021-12-25 12:30 | disposition home or self-care (01) ==
LOC: DS 08:33
PROVIDERS: ATTEND Internal Medicine Gastroenterology
DX: K74.69 Other cirrhosis of liver (principal); R18.8 Other ascites
CPT/HCPCS: 87070; 85025; 80048; 36415; 82150; 89050; 83735; 84100; 84157; 85610; 80076; 85730; 82042; 96365; 49083; P9047

== ENCOUNTER → 2022-01-10 | Day surgery (SDC) | payer OTHER, BC ==
[~2022-01-10] MED LIST: ALBUMIN HUMAN 25% 200 ML IV ONE; Ringers Lactate 1,000 ML IV ONE
[2022-01-10 11:25] VITALS: TEMP 97.7
[2022-01-10 11:26] VITALS: BMI 33.1
[2022-01-10 11:39] VITALS: O2SAT 98
[2022-01-10 11:56] VITALS: BP 149/43
--- NOTE | 2022-01-10 13:40 | RAD REPORT ---
EXAM DESCRIPTION: US - Paracentesis Proc Guidance - 01/10/2022 10:18 am CLINICAL HISTORY: Liver disease with ascites FINDINGS: The risks, benefits and alternatives to the procedure were explained to the patient and in formed consent obtained. The skin and subcutaneous tissues were anesthetized with Lidocaine. Under sonographic guidance an 8 F rench catheter was placed into the right lower quadrant. 5 cc of yellow fluid was removed and sent to the lab. A total of 5 liters drained The patient experienced no immediate complication. IMPRESSION: Paracentesis
[2022-01-10 16:08] LABS: Appearance SLT. TURBID (CLEAR); Body Fluid Source PERITONEAL; Body Fluid WBC 55 /mm^3; Color of fluid Yellow (COLORLESS)
== END ==
LOC: DS 08:37
PROVIDERS: ATTEND Legal Medicine
DX: R18.8 Other ascites (principal); K75.81 Nonalcoholic steatohepatitis (NASH); Z76.82 Awaiting organ transplant status
CPT/HCPCS: 36415; 89050; 87205; 84157; 96365; 49083; P9047

== ENCOUNTER → 2022-01-20 | Day surgery (SDC) | payer OTHER, BC ==
[~2022-01-20] MED LIST changes: -Ringers Lactate 1,000 ML IV ONE
[2022-01-20 09:33] VITALS: BMI 31.9
--- NOTE | 2022-01-20 11:02 | RAD REPORT ---
EXAM DESCRIPTION: US - Paracentesis Proc Guidance - 01/20/2022 10:42 am CLINICAL HISTORY: Ascites COMPARISON: Multiple prior paracentesis procedures. TECHNIQUE: The patient presents for ultrasound-guided paracentesis. The procedure, risks and altern atives were discussed with the patient in detail. Oral and written consent were obtained. Time out p rocedure was performed. The patient had no contraindicated allergy or medication history. PT, INR va lues within acceptable limits. Preliminary sonographic evaluation identified right lower quadrant access site. The skin and deeper tissues were anesthetized with 1 percent lidocaine. Under direct sonographic visualization, a parace ntesis catheter was advanced into the peritoneal cavity. Approximately 8 mL of ascites retained for r equested laboratory studies. Large volume drainage was initiated. Approximately 5 liters of ascites r emoved. At the conclusion of the procedure, catheter was withdrawn and a bandage placed at the puncture site. Patient tolerated procedure well with no immediate complication. Postprocedure care and precaution i nstructions were given to the patient. Patient was transferred back to the same day surgical area for pending albumin infusion using referring physician protocol. IMPRESSION: Ultrasound-guided paracentesis as detailed.
[2022-01-20 12:12] VITALS: BP 153/47; TEMP 97.5; O2SAT 97
[2022-01-20 14:18] LABS: Body Fluid WBC 79 /mm^3
[2022-01-20 15:54] LABS: Appearance SLT. TURBID (CLEAR); Body Fluid Source PERITONEAL; Color of fluid Yellow (COLORLESS)
== END ==
LOC: DS 08:55
PROVIDERS: ATTEND Legal Medicine
DX: R18.8 Other ascites (principal); K75.1 Phlebitis of portal vein; K76.9 Liver disease, unspecified; Z76.82 Awaiting organ transplant status
CPT/HCPCS: 87070; 36415; 89050; 84157; 96365; 49083; P9047

== ENCOUNTER → 2022-01-29 | Day surgery (SDC) | payer OTHER, BC ==
[2022-01-29 08:04] VITALS: TEMP 97.5; BMI 30.6
[2022-01-29 08:12] LABS: Protime INR 1.32
--- NOTE | 2022-01-29 09:37 | RAD REPORT ---
EXAM DESCRIPTION: US - Paracentesis Proc Guidance - 01/29/2022 9:21 am CLINICAL HISTORY: ASCITES Ascites COMPARISON: Paracentesis Proc Guidance dated 01/20/2022 FINDINGS: Informed consent was obtained and time-out was performed. Patient's abdomen was prepped and draped in the usual sterile fashion. 1% lidocaine was used for loca l anesthetic purposes. A small skin incision was made. A paracentesis catheter was guided into the peroneal cavity under son ographic guidance. A small amount of fluid was sent for requested lab studies. A 5 liter volume paracentesis was perform ed. The patient tolerated the procedure well. Patient was administered IV albumin per protocol following the procedure. IMPRESSION: Successful ultrasound-guided paracentesis.
[2022-01-29 11:36] VITALS: BP 147/44; O2SAT 99
[2022-01-29 13:16] LABS: Appearance CLEAR (CLEAR); Body Fluid Source PERITONEAL; Color of fluid Yellow (COLORLESS)
[2022-01-29 13:17] LABS: Body Fluid WBC 71 /mm^3
== END ==
LOC: DS 07:28
PROVIDERS: ATTEND Legal Medicine
DX: R18.8 Other ascites (principal); K75.81 Nonalcoholic steatohepatitis (NASH); Z76.82 Awaiting organ transplant status
CPT/HCPCS: 87070; 36415; 89050; 85049; 84157; 85610; 85730; 96365; 49083; P9047

== ENCOUNTER 2022-02-05 09:51 | Day surgery (SDC) | payer OTHER, BC ==
[2022-02-05 10:27] VITALS: O2SAT 100; BMI 42.7
--- NOTE | 2022-02-05 11:21 | RAD REPORT ---
EXAM DESCRIPTION: US - Paracentesis Proc Guidance - 02/05/2022 11:07 am CLINICAL HISTORY: ASCITES Ascites COMPARISON: Paracentesis Proc Guidance dated 01/29/2022 FINDINGS: Informed consent was obtained and time-out was performed. Patient's abdomen was prepped and draped in the usual sterile fashion. 1% lidocaine was used for loca l anesthetic purposes. A small skin incision was made in the right lower quadrant. A paracentesis catheter was guided into t he peroneal cavity under sonographic guidance. A small amount of fluid was sent for requested lab studies. A large volume paracentesis was performed . The patient tolerated the procedure well. Patient was administered IV albumin per protocol following the procedure. IMPRESSION: Successful ultrasound-guided paracentesis.
[2022-02-05] MEDS ORDERED: ALBUMIN HUMAN 25% 200 ML IV ONE (11:22)
[2022-02-05 12:36] VITALS: BP 167/49
[2022-02-05 12:45] VITALS: TEMP 97.2
[2022-02-05 13:47] LABS: Body Fluid WBC 89 /mm^3
[2022-02-05 13:56] LABS: Appearance SLT. TURBID (CLEAR); Body Fluid Source PERITONEAL; Color of fluid Yellow (COLORLESS)
== END 2022-02-05 12:25 | disposition home or self-care (01) ==
LOC: DS 09:51
PROVIDERS: ATTEND Legal Medicine
DX: R18.8 Other ascites (principal); K75.81 Nonalcoholic steatohepatitis (NASH); Z76.82 Awaiting organ transplant status
CPT/HCPCS: 36415; 89050; 87205; 84157; 96365; 49083; P9047

== ENCOUNTER 2022-02-12 08:56 | Day surgery (SDC) | payer OTHER, BC ==
--- NOTE | 2022-02-12 10:27 | RAD REPORT ---
EXAM DESCRIPTION: US - Paracentesis Proc Guidance - 02/12/2022 10:12 am CLINICAL HISTORY: ASCITES Ascites COMPARISON: Paracentesis Proc Guidance dated 02/05/2022 FINDINGS: Informed consent was obtained and time-out was performed. Patient's abdomen was prepped and draped in the usual sterile fashion. 1% lidocaine was used for loca l anesthetic purposes. A small skin incision was made. A paracentesis catheter was guided into the peroneal cavity under son ographic guidance. A small amount of fluid was sent for requested lab studies. A large volume paracentesis was performed . The patient tolerated the procedure well. Patient was administered IV albumin per protocol following the procedure. IMPRESSION: Successful ultrasound-guided paracentesis.
[2022-02-12] MEDS ORDERED: ALBUMIN HUMAN 25% 0 ML IV ONE (10:43)
[2022-02-12] MEDS ORDERED: ALBUMIN HUMAN 25% 200 ML IV ONE (10:44)
[2022-02-12 11:57] LABS: Body Fluid WBC 85 /mm^3
[2022-02-12 12:31] VITALS: BP 137/60; TEMP 96.7; O2SAT 97; BMI 29.9
[2022-02-12 13:22] LABS: Appearance SLT. TURBID (CLEAR); Body Fluid Source PERITONEAL; Color of fluid Yellow (COLORLESS)
== END 2022-02-12 11:35 | disposition home or self-care (01) ==
LOC: DS 08:56
PROVIDERS: ATTEND Legal Medicine
DX: R18.8 Other ascites (principal); K75.81 Nonalcoholic steatohepatitis (NASH); Z76.82 Awaiting organ transplant status
CPT/HCPCS: 87070; 36415; 89050; 84157; 96365; 49083; P9047

== ENCOUNTER 2022-02-19 07:28 | Day surgery (SDC) | payer OTHER, BC ==
[2022-02-19 08:38] VITALS: BMI 30.1
--- NOTE | 2022-02-19 09:33 | RAD REPORT ---
EXAM DESCRIPTION: US - Paracentesis Proc Guidance - 02/19/2022 9:21 am CLINICAL HISTORY: ASCITES Ascites COMPARISON: Paracentesis Proc Guidance dated 02/12/2022 FINDINGS: Informed consent was obtained and time-out was performed. Patient's abdomen was prepped and draped in the usual sterile fashion. 1% lidocaine was used for loca l anesthetic purposes. A small skin incision was made. A paracentesis catheter was guided into the peroneal cavity under son ographic guidance. A small amount of fluid was sent for requested lab studies. A large volume paracentesis was performed . The patient tolerated the procedure well. Patient was administered IV albumin per protocol following the procedure. IMPRESSION: Successful ultrasound-guided paracentesis.
[2022-02-19] MEDS ORDERED: ALBUMIN HUMAN 25% 200 ML IV ONE (09:48)
[2022-02-19 10:48] VITALS: BP 151/50; TEMP 97.1; O2SAT 97
[2022-02-19 13:41] LABS: Appearance SLT. TURBID (CLEAR); Body Fluid Source PERITONEAL; Color of fluid Yellow (COLORLESS)
[2022-02-19 13:42] LABS: Body Fluid WBC 250 /mm^3
== END 2022-02-19 10:40 | disposition home or self-care (01) ==
LOC: DS 07:28
PROVIDERS: ATTEND Legal Medicine
DX: R18.8 Other ascites (principal); K76.81 Hepatopulmonary syndrome; Z76.82 Awaiting organ transplant status
CPT/HCPCS: 36415; 85384; 89050; 87205; 84157; 96365; 49083; P9047

== ENCOUNTER 2022-02-26 08:57 | Day surgery (SDC) | payer OTHER, BC ==
[2022-02-26] MEDS ORDERED: ALBUMIN HUMAN 25% 200 ML IV ONE (11:01)
[2022-02-26 12:37] LABS: Body Fluid Source PERITONEAL; Color of fluid Yellow (COLORLESS)
[2022-02-26 12:38] LABS: Appearance SLT. TURBID (CLEAR); Body Fluid WBC 96 /mm^3
[2022-02-26 13:08] VITALS: O2SAT 100; BMI 30.1
--- NOTE | 2022-02-26 13:09 | RAD REPORT ---
EXAM DESCRIPTION: US - Paracentesis Proc Guidance - 02/26/2022 10:18 am CLINICAL HISTORY: Liver disease with ascites FINDINGS: The risks, benefits and alternatives to the procedure were explained to the patient and in formed consent obtained. The skin and subcutaneous tissues were anesthetized with Lidocaine. Under sonographic guidance an 8 F rench catheter was placed into the right lower quadrant. 5 liters of yellow fluid removed sent to the lab. The patient experienced no immediate complication. IMPRESSION: Paracentesis
[2022-02-26 13:15] VITALS: BP 144/42; TEMP 97
== END 2022-02-26 12:15 | disposition home or self-care (01) ==
LOC: DS 08:57
PROVIDERS: ATTEND Legal Medicine
DX: R18.8 Other ascites (principal); K76.81 Hepatopulmonary syndrome; Z76.82 Awaiting organ transplant status
CPT/HCPCS: 87070; 36415; 89050; 84157; 96365; 49083; P9047

== ENCOUNTER 2022-03-05 08:23 | Day surgery (SDC) | payer OTHER, BC ==
[2022-03-05 09:00] LABS: MPV 8.4 fL (7.6-11.3)
[2022-03-05 09:10] LABS: Protime INR 1.43
[2022-03-05 09:16] VITALS: BMI 30.6
--- NOTE | 2022-03-05 10:31 | RAD REPORT ---
EXAM DESCRIPTION: US - Paracentesis Proc Guidance - 03/05/2022 10:07 am CLINICAL HISTORY: ASCITES Ascites COMPARISON: Paracentesis Proc Guidance dated 02/26/2022 FINDINGS: Informed consent was obtained and time-out was performed. Patient's abdomen was prepped and draped in the usual sterile fashion. 1% lidocaine was used for loca l anesthetic purposes. A small skin incision was made. A paracentesis catheter was guided into the peroneal cavity under son ographic guidance. A small amount of fluid was sent for requested lab studies. A large volume paracentesis was performed . The patient tolerated the procedure well. Patient was administered IV albumin per protocol following the procedure. IMPRESSION: Successful ultrasound-guided paracentesis.
[2022-03-05] MEDS ORDERED: ALBUMIN HUMAN 25% 200 ML IV ONE (10:33)
[2022-03-05 11:23] VITALS: O2SAT 100
[2022-03-05 11:24] VITALS: BP 138/52; TEMP 97.4
[2022-03-05 13:02] LABS: Appearance SLT. TURBID (CLEAR); Body Fluid Source PERITONEAL; Body Fluid WBC 70 /mm^3; Color of fluid Yellow (COLORLESS)
== END 2022-03-05 11:33 | disposition home or self-care (01) ==
LOC: DS 08:23
PROVIDERS: ATTEND Legal Medicine
DX: R18.8 Other ascites (principal); K75.81 Nonalcoholic steatohepatitis (NASH); Z76.82 Awaiting organ transplant status
CPT/HCPCS: 87070; 36415; 89050; 85049; 84157; 85610; 85730; 96365; 49083; P9047

== ENCOUNTER 2022-03-12 08:58 | Day surgery (SDC) | payer OTHER, BC ==
--- NOTE | 2022-03-12 10:22 | RAD REPORT ---
EXAM DESCRIPTION: US - Paracentesis Proc Guidance - 03/12/2022 10:08 am CLINICAL HISTORY: ASCITES Ascites COMPARISON: Paracentesis Proc Guidance dated 03/05/2022 FINDINGS: Informed consent was obtained and time-out was performed. Patient's abdomen was prepped and draped in the usual sterile fashion. 1% lidocaine was used for loca l anesthetic purposes. A small skin incision was made. A paracentesis catheter was guided into the peroneal cavity under son ographic guidance. A small amount of fluid was sent for requested lab studies. A large volume paracentesis was performed . The patient tolerated the procedure well. Patient was administered IV albumin per protocol following the procedure. IMPRESSION: Successful ultrasound-guided paracentesis.
[2022-03-12] MEDS ORDERED: ALBUMIN HUMAN 25% 200 ML IV ONE (10:46)
[2022-03-12 13:35] VITALS: O2SAT 100; BMI 30.6
[2022-03-12 13:38] VITALS: BP 142/39; TEMP 97.7
[2022-03-12 16:27] LABS: Body Fluid Source PERITONEAL; Color of fluid White (COLORLESS)
[2022-03-12 16:28] LABS: Appearance SLT. TURBID (CLEAR); Body Fluid WBC 58 /mm^3
== END 2022-03-12 12:05 | disposition home or self-care (01) ==
LOC: DS 08:58
PROVIDERS: ATTEND Legal Medicine
DX: R18.8 Other ascites (principal); K76.81 Hepatopulmonary syndrome; K74.60 Unspecified cirrhosis of liver; Z76.82 Awaiting organ transplant status
CPT/HCPCS: 87070; 36415; 89050; 84157; 96365; 49083; P9047

== ENCOUNTER 2022-04-02 08:15 | Day surgery (SDC) | payer OTHER, BC ==
[2022-04-02 09:00] VITALS: BMI 31.2
[2022-04-02] MEDS ORDERED: ALBUMIN HUMAN 25% 200 ML IV ONE (09:59)
[2022-04-02 10:42] LABS: Body Fluid Source PERITONEAL; Color of fluid Yellow (COLORLESS)
[2022-04-02 10:43] LABS: Appearance SLT. TURBID (CLEAR)
[2022-04-02 10:47] VITALS: BP 90/73; TEMP 97; O2SAT 100
--- NOTE | 2022-04-02 11:27 | RAD REPORT ---
EXAM DESCRIPTION: US - Paracentesis Proc Guidance - 04/02/2022 9:04 am CLINICAL HISTORY: Liver disease with ascites FINDINGS: The risks, benefits and alternatives to the procedure were explained to the patient and in formed consent obtained. The skin and subcutaneous tissues were anesthetized with Lidocaine. Under sonographic guidance an 8 F rench catheter was placed into the right lower quadrant. 5.5 liters of yellow fluid removed and sent to the lab The patient experienced no immediate complication. IMPRESSION: Paracentesis
[2022-04-02 12:12] LABS: Body Fluid WBC 93 /mm^3
== END 2022-04-02 11:10 | disposition home or self-care (01) ==
LOC: DS 08:15
PROVIDERS: ATTEND Legal Medicine
DX: R18.8 Other ascites (principal); K76.81 Hepatopulmonary syndrome; Z76.82 Awaiting organ transplant status
CPT/HCPCS: 87070; 36415; 89050; 84157; 96365; 49083; P9047

== ENCOUNTER → 2022-04-09 | Day surgery (SDC) | payer OTHER, BC ==
[2022-04-09 09:08] VITALS: BMI 30.1
[2022-04-09 09:09] LABS: MPV 9.9 fL (7.6-11.3)
[2022-04-09 09:22] LABS: Protime INR 1.59
[2022-04-09 10:50] VITALS: TEMP 98.2; O2SAT 98
--- NOTE | 2022-04-09 11:35 | RAD REPORT ---
EXAM DESCRIPTION: US - Paracentesis Proc Guidance - 04/09/2022 10:05 am CLINICAL HISTORY: ASCITES Ascites COMPARISON: Paracentesis Proc Guidance dated 04/02/2022aracentesis Proc Guidance dated 04/02/2022 FINDINGS: Informed consent was obtained and time-out was performed. Patient's abdomen was prepped and draped in the usual sterile fashion. 1% lidocaine was used for loca l anesthetic purposes. A small skin incision was made. A paracentesis catheter was guided into the peroneal cavity under son ographic guidance. A small amount of fluid was sent for requested lab studies. A large volume paracentesis was performed . The patient tolerated the procedure well. Patient was administered IV albumin per protocol following the procedure. IMPRESSION: Successful ultrasound-guided paracentesis.
[2022-04-09 11:38] VITALS: BP 136/49
[2022-04-09 12:31] LABS: Body Fluid Source PERITONEAL
[2022-04-09 12:32] LABS: Appearance TURBID (CLEAR); Body Fluid WBC 7668 /mm^3; Color of fluid Orange (COLORLESS)
== END ==
LOC: RAD 08:29
PROVIDERS: ATTEND Legal Medicine
DX: R18.8 Other ascites (principal); K76.81 Hepatopulmonary syndrome; Z76.82 Awaiting organ transplant status
CPT/HCPCS: 87070; 36415; 89050; 85049; 84157; 85610; 85730; 96365; 49083; P9047

== ENCOUNTER 2022-04-18 08:25 | Day surgery (SDC) | payer OTHER, BC ==
[2022-04-18 09:22] VITALS: O2SAT 100; BMI 30.9
[2022-04-18] MEDS ORDERED: ALBUMIN HUMAN 25% 300 ML IV ONE (10:24)
[2022-04-18 11:55] VITALS: BP 126/58; TEMP 97.4
[2022-04-18 12:04] LABS: Appearance CLEAR (CLEAR); Body Fluid Source PERITONEAL; Color of fluid Yellow (COLORLESS)
[2022-04-18 12:05] LABS: Body Fluid WBC 174 /mm^3
--- NOTE | 2022-04-18 21:24 | RAD REPORT ---
EXAM DESCRIPTION: US - Paracentesis Proc Guidance - 04/18/2022 9:47 am CLINICAL HISTORY: Ascites COMPARISON: Multiple prior paracentesis procedures TECHNIQUE: The patient presents for ultrasound-guided paracentesis. The procedure, risks and altern atives were discussed with the patient in detail. Oral and written consent were obtained. Time out p rocedure was performed. The patient had no contraindicated allergy or medication history. PT, INR an d platelet values within acceptable limits. Preliminary sonographic evaluation identified lateral mid right abdomen access site. The skin and de eper tissues were anesthetized with 1 percent lidocaine. Under direct sonographic visualization, a p aracentesis catheter was advanced into the peritoneal cavity. Approximately 15 mL of ascites retained for laboratory studies. Large volume drainage was initiated. Approximately 6 liters of ascites remov ed. At the conclusion of the procedure, catheter was withdrawn and a bandage placed at the puncture site. Post procedure care and precaution instructions were given to the patient. IMPRESSION: Ultrasound-guided paracentesis as detailed.
== END 2022-04-18 11:40 | disposition home or self-care (01) ==
LOC: DS 08:25
PROVIDERS: ATTEND Legal Medicine
DX: R18.8 Other ascites (principal); K76.81 Hepatopulmonary syndrome; Z76.82 Awaiting organ transplant status
CPT/HCPCS: 87070; 36415; 89050; 84157; 87077; 87186; 96365; 49083; P9047

== ENCOUNTER 2022-04-25 07:55 | Day surgery (SDC) | payer OTHER, BC ==
[2022-04-25 08:39] VITALS: O2SAT 100; BMI 30.7
[2022-04-25] MEDS ORDERED: ALBUMIN HUMAN 25% 200 ML IV ONE (10:07)
[2022-04-25 10:53] VITALS: BP 137/47; TEMP 98
--- NOTE | 2022-04-25 13:01 | RAD REPORT ---
EXAM DESCRIPTION: US - Paracentesis Proc Guidance - 04/25/2022 9:22 am CLINICAL HISTORY: Liver disease with ascites FINDINGS: The risks, benefits and alternatives to the procedure were explained to the patient and in formed consent obtained. The skin and subcutaneous tissues were anesthetized with Lidocaine. Under sonographic guidance an 8 F rench catheter was placed into the right lower quadrant. 5 liters of yellow fluid was removed. Fluid was sent to the lab. The patient experienced no immediate complication. IMPRESSION: Paracentesis
[2022-04-25 16:33] LABS: Appearance SLT. TURBID (CLEAR); Body Fluid Source PERITONEAL; Color of fluid Yellow (COLORLESS)
[2022-04-25 16:34] LABS: Body Fluid WBC 93 /mm^3
== END 2022-04-25 11:32 | disposition home or self-care (01) ==
LOC: DS 07:55
PROVIDERS: ATTEND Legal Medicine
DX: R18.8 Other ascites (principal); K76.81 Hepatopulmonary syndrome; Z76.82 Awaiting organ transplant status
CPT/HCPCS: 87070; 36415; 89050; 84157; 96365; 49083; P9047

== ENCOUNTER 2022-05-02 07:53 | Day surgery (SDC) | payer OTHER, BC ==
[2022-05-02] MEDS ORDERED: ONDANSETRON 4 MG (ODT) TAB PO ONE (08:08)
[2022-05-02] MEDS ORDERED: ONDANSETRON 4 MG (ODT) TAB ONE (08:12)
--- NOTE | 2022-05-02 10:09 | RAD REPORT ---
EXAM DESCRIPTION: US - Paracentesis Proc Guidance - 05/02/2022 9:52 am CLINICAL HISTORY: Ascites COMPARISON: Multiple prior paracentesis procedures. TECHNIQUE: The patient presents for ultrasound-guided paracentesis. The procedure, risks and altern atives were discussed with the patient in detail. Oral and written consent were obtained. Time out p rocedure was performed. The patient had no contraindicated allergy or medication history. PT, INR, a nd platelet values within acceptable limits. Preliminary sonographic evaluation identified right lower quadrant access site. The skin and deeper tissues were anesthetized with 1 percent lidocaine. Under direct sonographic visualization, a parac entesis catheter was advanced into the peritoneal cavity. Approximately 8 mL of ascites was retained for requested laboratory studies. Large volume drainage was initiated. Approximately 6 liters of asc ites removed. At the conclusion of the procedure, catheter was withdrawn and a bandage placed at the puncture site. Postprocedure care and precaution instructions were given to the patient. Patient was transferred back to the same day surgical area for pending albumin infusion using referring physician protocol. IMPRESSION: Ultrasound-guided paracentesis as detailed.
[2022-05-02] MEDS ORDERED: ALBUMIN HUMAN 25% 300 ML IV ONE (10:31)
[2022-05-02 10:42] VITALS: O2SAT 100
[2022-05-02 10:43] VITALS: BMI 30.7
[2022-05-02 11:34] VITALS: BP 127/52; TEMP 97.3
[2022-05-02 13:03] LABS: Body Fluid Source PERITONEAL; Color of fluid Yellow (COLORLESS)
[2022-05-02 13:04] LABS: Appearance CLEAR (CLEAR); Body Fluid WBC 105 /mm^3
== END 2022-05-02 11:35 | disposition home or self-care (01) ==
LOC: DS 07:53
PROVIDERS: ATTEND Legal Medicine
DX: R18.8 Other ascites (principal); K76.81 Hepatopulmonary syndrome; Z76.82 Awaiting organ transplant status
CPT/HCPCS: 36415; 89050; 87205; 84157; 96365; 49083; P9047

== ENCOUNTER 2022-05-09 07:57 | Day surgery (SDC) | payer OTHER, BC ==
[2022-05-09 08:25] VITALS: O2SAT 100; BMI 29.7
--- NOTE | 2022-05-09 09:50 | RAD REPORT ---
EXAM DESCRIPTION: US - Paracentesis Proc Guidance - 05/09/2022 9:17 am CLINICAL HISTORY: PARA Ascites COMPARISON: Paracentesis Proc Guidance dated 05/02/2022 FINDINGS: Informed consent was obtained and time-out was performed. Patient's abdomen was prepped and draped in the usual sterile fashion. 1% lidocaine was used for loca l anesthetic purposes. A small skin incision was made. A paracentesis catheter was guided into the peroneal cavity under son ographic guidance. A small amount of fluid was sent for requested lab studies. 5 liter paracentesis was performed. The patient tolerated the procedure well. Patient was administered IV albumin per protocol following the procedure. IMPRESSION: Successful ultrasound-guided paracentesis.
[2022-05-09] MEDS ORDERED: ALBUMIN HUMAN 25% 300 ML IV ONE (09:51)
[2022-05-09 11:00] LABS: Body Fluid WBC 106 /mm^3
[2022-05-09 11:01] VITALS: BP 125/35; TEMP 96.7
[2022-05-09 12:04] LABS: Appearance SLT. TURBID (CLEAR); Body Fluid Source PERITONEAL; Color of fluid Yellow (COLORLESS)
== END 2022-05-09 11:18 | disposition home or self-care (01) ==
LOC: DS 07:57
PROVIDERS: ATTEND Legal Medicine
DX: R18.8 Other ascites (principal); K76.81 Hepatopulmonary syndrome; Z76.82 Awaiting organ transplant status
CPT/HCPCS: 87070; 36415; 89050; 84157; 96365; 49083; P9047

== ENCOUNTER 2022-05-16 08:00 | Day surgery (SDC) | payer OTHER, BC ==
[2022-05-16 08:51] LABS: Protime INR 1.28
[2022-05-16] MEDS ORDERED: ALBUMIN HUMAN 25% 200 ML IV ONE (10:47)
--- NOTE | 2022-05-16 11:11 | RAD REPORT ---
EXAM DESCRIPTION: US - Paracentesis Proc Guidance - 05/16/2022 9:59 am CLINICAL HISTORY: ASCITES Ascites COMPARISON: <Comparisons> FINDINGS: Informed consent was obtained and time-out was performed. Patient's abdomen was prepped and draped in the usual sterile fashion. 1% lidocaine was used for loca l anesthetic purposes. A small skin incision was made. A paracentesis catheter was guided into the peroneal cavity under son ographic guidance. A small amount of fluid was sent for requested lab studies. A large volume paracentesis was performed . The patient tolerated the procedure well. Patient was administered IV albumin per protocol following the procedure. IMPRESSION: Successful ultrasound-guided paracentesis.
[2022-05-16 11:14] VITALS: TEMP 97; O2SAT 100
[2022-05-16 11:16] VITALS: BMI 24.5
[2022-05-16 11:55] VITALS: BP 138/50
[2022-05-16 14:31] LABS: Body Fluid WBC 91 /mm^3
[2022-05-16 15:25] LABS: Appearance SLT. TURBID (CLEAR); Body Fluid Source PERITONEAL; Color of fluid Yellow (COLORLESS)
== END 2022-05-16 11:50 | disposition home or self-care (01) ==
LOC: DS 08:00
PROVIDERS: ATTEND Legal Medicine
DX: R18.8 Other ascites (principal); K75.81 Nonalcoholic steatohepatitis (NASH); Z76.82 Awaiting organ transplant status; N18.6 End stage renal disease
CPT/HCPCS: 87070; 36415; 89050; 85049; 84157; 85610; 85730; 96365; 49083; P9047

== ENCOUNTER → 2022-05-23 | Day surgery (SDC) | payer OTHER, BC ==
[~2022-05-23] MED LIST changes: -ALBUMIN HUMAN 25% 200 ML IV ONE; +ALBUMIN HUMAN 25% 300 ML IV ONE
[2022-05-23 08:12] VITALS: O2SAT 100; BMI 29.9
--- NOTE | 2022-05-23 10:01 | RAD REPORT ---
EXAM DESCRIPTION: US - Paracentesis Proc Guidance - 05/23/2022 9:51 am CLINICAL HISTORY: ASCITES Ascites COMPARISON: Paracentesis Proc Guidance dated 05/16/2022 FINDINGS: Informed consent was obtained and time-out was performed. Patient's abdomen was prepped and draped in the usual sterile fashion. 1% lidocaine was used for loca l anesthetic purposes. A small skin incision was made along the right lower quadrant. A paracentesis catheter was guided int o the peroneal cavity under sonographic guidance. A small amount of fluid was sent for requested lab studies. A large volume paracentesis was performed . The patient tolerated the procedure well. Patient was administered IV albumin per protocol following the procedure. IMPRESSION: Successful ultrasound-guided paracentesis.
[2022-05-23 11:02] VITALS: BP 127/43; TEMP 96.9
[2022-05-23 13:26] LABS: Appearance SLT. TURBID (CLEAR); Body Fluid Source PERITONEAL; Body Fluid WBC 50 /mm^3; Color of fluid Yellow (COLORLESS)
== END ==
LOC: DS 07:40
PROVIDERS: ATTEND Legal Medicine
DX: R18.8 Other ascites (principal); K75.81 Nonalcoholic steatohepatitis (NASH); Z76.82 Awaiting organ transplant status
CPT/HCPCS: 87070; 36415; 85384; 89050; 84157; 96365; 49083; 96366; P9047

== ENCOUNTER 2022-06-16 08:24 | Day surgery (SDC) | payer OTHER, BC ==
[2022-06-16 09:42] LABS: MPV 9.1 fL (7.6-11.3)
[2022-06-16 10:54] LABS: Protime INR 1.3
[2022-06-16 11:31] VITALS: BMI 30.9
[2022-06-16] MEDS ORDERED: ALBUMIN HUMAN 25% 200 ML IV ONE (12:11)
--- NOTE | 2022-06-16 12:47 | RAD REPORT ---
EXAM DESCRIPTION: US - Paracentesis Proc Guidance - 06/16/2022 11:32 am CLINICAL HISTORY: Liver disease with ascites FINDINGS: The risks, benefits and alternatives to the procedure were explained to the patient and in formed consent obtained. The skin and subcutaneous tissues were anesthetized with Lidocaine. Under sonographic guidance an 8 F rench catheter was placed into the right lower quadrant. 5 liters of yellow fluid removed. Fluid sent to the lab. The patient experienced no immediate complication. IMPRESSION: Paracentesis
[2022-06-16 13:51] VITALS: BP 135/41; TEMP 97.3; O2SAT 0
[2022-06-16 16:35] LABS: Body Fluid WBC 62 /mm^3
[2022-06-16 16:49] LABS: Appearance CLEAR (CLEAR); Body Fluid Source PERITONEAL; Color of fluid Yellow (COLORLESS)
== END 2022-06-16 13:10 | disposition home or self-care (01) ==
LOC: DS 08:24
PROVIDERS: ATTEND Legal Medicine
DX: R18.8 Other ascites (principal); K75.81 Nonalcoholic steatohepatitis (NASH); Z76.82 Awaiting organ transplant status
CPT/HCPCS: 87070; 36415; 85384; 89050; 85049; 84157; 85610; 85730; 96365; 49083; P9047

== ENCOUNTER 2022-06-20 08:00 | Day surgery (SDC) | payer OTHER, BC ==
[2022-06-20] MEDS ORDERED: ALBUMIN HUMAN 25% 200 ML IV ONE (10:02)
--- NOTE | 2022-06-20 10:10 | RAD REPORT ---
EXAM DESCRIPTION: US - Paracentesis Proc Guidance - 06/20/2022 10:02 am CLINICAL HISTORY: ASCITES Ascites COMPARISON: Paracentesis Proc Guidance dated 06/16/2022 FINDINGS: Informed consent was obtained and time-out was performed. Patient's abdomen was prepped and draped in the usual sterile fashion. 1% lidocaine was used for loca l anesthetic purposes. A small skin incision was made. A paracentesis catheter was guided into the peroneal cavity under son ographic guidance. A small amount of fluid was sent for requested lab studies. Following this, 5 liter paracentesis was performed. The patient tolerated the procedure well. Patient was administered IV albumin per protocol following the procedure. IMPRESSION: Successful ultrasound-guided paracentesis.
[2022-06-20] MEDS ORDERED: NA CHLORIDE 0.9% 0 ML ONE (10:42)
[2022-06-20 11:46] LABS: Body Fluid WBC 65 /mm^3
[2022-06-20 12:07] VITALS: O2SAT 100; BMI 30.6
[2022-06-20 12:16] VITALS: BP 144/46; TEMP 97.4
[2022-06-20 13:27] LABS: Appearance SLT. TURBID (CLEAR); Body Fluid Source PERITONEAL; Color of fluid Yellow (COLORLESS)
== END 2022-06-20 11:05 | disposition home or self-care (01) ==
LOC: DS 08:00
PROVIDERS: ATTEND Legal Medicine
DX: R18.8 Other ascites (principal); K75.81 Nonalcoholic steatohepatitis (NASH); Z76.82 Awaiting organ transplant status
CPT/HCPCS: 87070; 36415; 89050; 84157; 96365; 49083; P9047; J7030

== ENCOUNTER 2022-06-27 08:00 | Day surgery (SDC) | payer OTHER, BC ==
--- NOTE | 2022-06-27 10:01 | RAD REPORT ---
EXAM DESCRIPTION: US - Paracentesis Proc Guidance - 06/27/2022 9:54 am CLINICAL HISTORY: ASCITES Ascites COMPARISON: Paracentesis Proc Guidance dated 06/20/2022 FINDINGS: Informed consent was obtained and time-out was performed. Patient's abdomen was prepped and draped in the usual sterile fashion. 1% lidocaine was used for loca l anesthetic purposes. A small skin incision was made in the right lower quadrant. A paracentesis catheter was guided into t he peroneal cavity under sonographic guidance. A small amount of fluid was sent for requested lab studies. A large volume paracentesis was performed . The patient tolerated the procedure well. Patient was administered IV albumin per protocol following the procedure. IMPRESSION: Successful ultrasound-guided paracentesis.
[2022-06-27] MEDS ORDERED: ALBUMIN HUMAN 25% 300 ML IV ONE (10:29)
[2022-06-27 11:44] VITALS: BMI 31.1
[2022-06-27 12:07] VITALS: TEMP 97.3; O2SAT 100
[2022-06-27 12:13] VITALS: BP 139/49
[2022-06-27 14:37] LABS: Appearance TURBID (CLEAR); Body Fluid Source PERITONEAL; Body Fluid WBC 51 /mm^3; Color of fluid Yellow (COLORLESS)
== END 2022-06-27 12:04 | disposition home or self-care (01) ==
LOC: DS 08:00
PROVIDERS: ATTEND Legal Medicine
DX: R18.8 Other ascites (principal); K75.81 Nonalcoholic steatohepatitis (NASH); Z76.82 Awaiting organ transplant status
CPT/HCPCS: 36415; 89050; 87205; 84157; 96365; 49083; 96366; P9047

== ENCOUNTER 2022-07-04 08:05 | Day surgery (SDC) | payer OTHER, BC ==
--- NOTE | 2022-07-04 09:51 | RAD REPORT ---
EXAM DESCRIPTION: US - Paracentesis Proc Guidance - 07/04/2022 9:45 am CLINICAL HISTORY: ASCITES Ascites COMPARISON: Paracentesis Proc Guidance dated 06/27/2022 FINDINGS: Informed consent was obtained and time-out was performed. Patient's abdomen was prepped and draped in the usual sterile fashion. 1% lidocaine was used for loca l anesthetic purposes. A small skin incision was made. A paracentesis catheter was guided into the peroneal cavity under son ographic guidance. A small amount of fluid was sent for requested lab studies. A large volume paracentesis was performed . The patient tolerated the procedure well. Patient was administered IV albumin per protocol following the procedure. IMPRESSION: Successful ultrasound-guided paracentesis.
[2022-07-04] MEDS ORDERED: ALBUMIN HUMAN 25% 300 ML IV ONE (09:56)
[2022-07-04 10:09] VITALS: O2SAT 100; BMI 31.1
[2022-07-04 10:43] LABS: Body Fluid WBC 95 /mm^3
[2022-07-04 11:08] LABS: Appearance CLEAR (CLEAR); Body Fluid Source PERITONEAL; Color of fluid Yellow (COLORLESS)
[2022-07-04 11:29] VITALS: BP 144/45; TEMP 97.3
== END 2022-07-04 11:03 | disposition home or self-care (01) ==
LOC: DS 08:05
PROVIDERS: ATTEND Legal Medicine
DX: R18.8 Other ascites (principal); K75.81 Nonalcoholic steatohepatitis (NASH); Z76.82 Awaiting organ transplant status
CPT/HCPCS: 87070; 36415; 89050; 84157; 96365; 49083; P9047

== ENCOUNTER 2022-07-11 07:56 | Day surgery (SDC) | payer OTHER, BC ==
[2022-07-11 09:10] VITALS: O2SAT 100; BMI 30.6
[2022-07-11 10:10] LABS: Body Fluid WBC 148 /mm^3
[2022-07-11] MEDS ORDERED: ALBUMIN HUMAN 25% 300 ML IV ONE (10:20)
--- NOTE | 2022-07-11 10:41 | RAD REPORT ---
EXAM DESCRIPTION: US - Paracentesis Proc Guidance - 07/11/2022 9:28 am CLINICAL HISTORY: Liver disease with ascites FINDINGS: The risks, benefits and alternatives to the procedure were explained to the patient and in formed consent obtained. The skin and subcutaneous tissues were anesthetized with Lidocaine. Under sonographic guidance an 8 F rench catheter was placed into the right lower quadrant. Six liters of yellow fluid removed. Fluid se nt to the lab. The patient experienced no immediate complication. IMPRESSION: Paracentesis
[2022-07-11 10:43] VITALS: TEMP 97.6
[2022-07-11 10:46] LABS: Appearance SLT. TURBID (CLEAR); Body Fluid Source PERITONEAL; Color of fluid Yellow (COLORLESS)
[2022-07-11 13:03] VITALS: BP 134/45
== END 2022-07-11 12:10 | disposition home or self-care (01) ==
LOC: DS 07:56
PROVIDERS: ATTEND Legal Medicine
DX: R18.8 Other ascites (principal); K75.81 Nonalcoholic steatohepatitis (NASH); Z76.82 Awaiting organ transplant status
CPT/HCPCS: 87070; 36415; 89050; 84157; 96365; 49083; P9047

== ENCOUNTER 2022-07-18 08:02 | Day surgery (SDC) | payer OTHER, BC ==
[2022-07-18 10:04] VITALS: BMI 30.6
[2022-07-18 11:16] LABS: Protime INR 1.24
--- NOTE | 2022-07-18 12:35 | RAD REPORT ---
EXAM DESCRIPTION: US - Paracentesis Proc Guidance - 07/18/2022 11:52 am CLINICAL HISTORY: Liver disease with ascites FINDINGS: The risks, benefits and alternatives to the procedure were explained to the patient and in formed consent obtained. The skin and subcutaneous tissues were anesthetized with Lidocaine. Under sonographic guidance an 8 F rench catheter was placed into the right lower quadrant. 6 liters of yellow fluid removed. Fluid sent to the lab. The patient experienced no immediate complication. IMPRESSION: Paracentesis
[2022-07-18] MEDS ORDERED: ALBUMIN HUMAN 25% 300 ML IV ONE (12:39)
[2022-07-18 14:03] VITALS: BP 150/50; TEMP 97; O2SAT 99
== END 2022-07-18 13:34 | disposition home or self-care (01) ==
LOC: DS 08:02
PROVIDERS: ATTEND Legal Medicine
DX: R18.8 Other ascites (principal); K75.81 Nonalcoholic steatohepatitis (NASH); Z76.82 Awaiting organ transplant status
CPT/HCPCS: 36415; 85610; 85730; 96365; 49083; P9047

== ENCOUNTER 2022-07-25 08:04 | Day surgery (SDC) | payer OTHER, BC ==
[2022-07-25 08:52] LABS: MPV 9.3 fL (7.6-11.3)
--- NOTE | 2022-07-25 10:29 | RAD REPORT ---
EXAM DESCRIPTION: US - Paracentesis Proc Guidance - 07/25/2022 9:57 am CLINICAL HISTORY: PARA Ascites COMPARISON: Paracentesis Proc Guidance dated 07/18/2022 FINDINGS: Informed consent was obtained and time-out was performed. Patient's abdomen was prepped and draped in the usual sterile fashion. 1% lidocaine was used for loca l anesthetic purposes. A small skin incision was made right lower quadrant. A paracentesis catheter was guided into the ricky caryn cavity under sonographic guidance. A small amount of fluid was sent for requested lab studies. 6 liter paracentesis was performed. The patient tolerated the procedure well. IMPRESSION: Successful ultrasound-guided paracentesis.
[2022-07-25] MEDS ORDERED: ALBUMIN HUMAN 25% 300 ML IV ONE (10:55)
[2022-07-25 11:16] VITALS: BMI 30.7
[2022-07-25 14:25] VITALS: BP 142/43; TEMP 97.8; O2SAT 100
[2022-07-25 14:39] LABS: Appearance CLEAR (CLEAR); Body Fluid Source OTHER; Body Fluid WBC 20 /mm^3; Color of fluid Yellow (COLORLESS)
== END 2022-07-25 12:52 | disposition home or self-care (01) ==
LOC: DS 08:04
PROVIDERS: ATTEND Legal Medicine
DX: R18.8 Other ascites (principal); K75.81 Nonalcoholic steatohepatitis (NASH); Z76.82 Awaiting organ transplant status
CPT/HCPCS: 87070; 36415; 89050; 85049; 84157; 96365; 49083; 96366; P9047

== ENCOUNTER 2022-08-01 07:07 | Day surgery (SDC) | payer OTHER, BC ==
[2022-08-01 07:38] LABS: MPV 8.5 fL (7.6-11.3)
[2022-08-01 08:01] VITALS: BMI 31.9
[2022-08-01] MEDS ORDERED: ALBUMIN HUMAN 25% 300 ML IV ONE (09:14)
--- NOTE | 2022-08-01 09:18 | RAD REPORT ---
EXAM DESCRIPTION: US - Paracentesis Proc Guidance - 08/01/2022 9:03 am CLINICAL HISTORY: Ascites COMPARISON: Multiple prior paracentesis procedures. TECHNIQUE: The patient presents for ultrasound-guided paracentesis. The procedure, risks and altern atives were discussed with the patient in detail. Oral and written consent were obtained. Time out p rocedure was performed. The patient had no contraindicated allergy or medication history. Preliminary sonographic evaluation identified right lower pole access site. The skin and deeper tiss ues were anesthetized with 1 percent lidocaine. Under direct sonographic visualization, a paracentes is catheter was advanced into the peritoneal cavity. Approximately 15 mL of ascites was removed for p ending laboratory studies. Large volume drainage was initiated. Approximately 6 liters of ascites rem gregory. At the conclusion of the procedure, catheter was withdrawn and a bandage placed at the puncture site. Postprocedure care and precaution instructions were given to the patient. [facility] same day surgical area for pending albumin utilizing referring physician protocol. IMPRESSION: Ultrasound-guided paracentesis as detailed.
[2022-08-01 10:06] VITALS: BP 123/39; TEMP 97.1; O2SAT 97
[2022-08-01 12:20] LABS: Appearance CLEAR (CLEAR); Body Fluid Source PERITONEAL; Color of fluid Yellow (COLORLESS)
[2022-08-01 12:21] LABS: Body Fluid WBC 17 /mm^3
== END 2022-08-01 11:23 | disposition home or self-care (01) ==
LOC: DS 07:07
PROVIDERS: ATTEND Legal Medicine
DX: R18.8 Other ascites (principal); K75.81 Nonalcoholic steatohepatitis (NASH); Z76.82 Awaiting organ transplant status
CPT/HCPCS: 87070; 36415; 89050; 85049; 84157; 96365; 49083; P9047

== ENCOUNTER 2022-08-08 07:19 | Day surgery (SDC) | payer OTHER, BC ==
[2022-08-08 08:04] LABS: MPV 8.6 fL (7.6-11.3)
[2022-08-08 08:14] VITALS: BMI 31.9
[2022-08-08 08:27] LABS: Protime INR 1.25
[2022-08-08] MEDS ORDERED: ALBUMIN HUMAN 25% 300 ML IV ONE (10:17)
[2022-08-08 10:18] VITALS: BP 141/44; TEMP 97.2; O2SAT 98
--- NOTE | 2022-08-08 10:35 | RAD REPORT ---
EXAM DESCRIPTION: US - Paracentesis Proc Guidance - 08/08/2022 9:22 am CLINICAL HISTORY: Ascites COMPARISON: Multiple prior paracentesis procedures. TECHNIQUE: The patient presents for ultrasound-guided paracentesis. The procedure, risks and altern atives were discussed with the patient in detail. Oral and written consent were obtained. Time out p rocedure was performed. The patient had no contraindicated allergy or medication history. Bleeding s tudies were within acceptable limits. Preliminary sonographic evaluation identified right lower quadrant access site. The skin and deeper tissues were anesthetized with 1 percent lidocaine. Under direct sonographic visualization, a parace ntesis catheter was advanced into the peritoneal cavity. Approximately 10 mL of ascites retained for laboratory studies. Large volume drainage was initiated. Approximately 6 liters of ascites removed. At the conclusion of the procedure, catheter was withdrawn and a bandage placed at the puncture site. Postprocedure care and precaution instructions were given to the patient. Patient was transferred back to the same day surgical area for albumin infusion using referring physician protocol. IMPRESSION: Ultrasound-guided paracentesis as detailed.
[2022-08-08 13:34] LABS: Appearance CLEAR (CLEAR); Body Fluid Source PERITONEAL; Color of fluid Yellow (COLORLESS)
[2022-08-08 13:35] LABS: Body Fluid WBC 55 /mm^3
== END 2022-08-08 11:30 | disposition home or self-care (01) ==
LOC: DS 07:19
PROVIDERS: ATTEND Legal Medicine
DX: R18.8 Other ascites (principal); K75.81 Nonalcoholic steatohepatitis (NASH); Z76.82 Awaiting organ transplant status
CPT/HCPCS: 87070; 36415; 85384; 89050; 85049; 84157; 85610; 85730; 96365; 49083; P9047

== ENCOUNTER 2022-08-15 07:59 | Day surgery (SDC) | payer OTHER, BC ==
[2022-08-15 08:43] VITALS: O2SAT 100; BMI 30.2
[2022-08-15 08:43] LABS: MPV 8.8 fL (7.6-11.3)
[2022-08-15] MEDS ORDERED: ALBUMIN HUMAN 25% 300 ML IV ONE (10:18)
--- NOTE | 2022-08-15 10:35 | RAD REPORT ---
EXAM DESCRIPTION: US - Paracentesis Proc Guidance - 08/15/2022 10:18 am CLINICAL HISTORY: Liver disease with ascites FINDINGS: The risks, benefits and alternatives to the procedure were explained to the patient and in formed consent obtained. The skin and subcutaneous tissues were anesthetized with Lidocaine. Under sonographic guidance an 8 F rench catheter was placed into the right lower quadrant. 6 liters of yellow fluid removed. Fluid sent to the lab. The patient experienced no immediate complication. IMPRESSION: Paracentesis
[2022-08-15 11:07] VITALS: TEMP 97.6
[2022-08-15 11:20] VITALS: BP 137/46
[2022-08-15 12:40] LABS: Appearance CLEAR (CLEAR); Body Fluid Source PERITONEAL; Body Fluid WBC 56 /mm^3; Color of fluid Yellow (COLORLESS)
== END 2022-08-15 12:17 | disposition home or self-care (01) ==
LOC: DS 07:59
PROVIDERS: ATTEND Legal Medicine
DX: R18.8 Other ascites (principal); K75.81 Nonalcoholic steatohepatitis (NASH); Z76.82 Awaiting organ transplant status
CPT/HCPCS: 36415; 89050; 87205; 85049; 84157; 96365; 49083; 96366; P9047

== ENCOUNTER 2022-09-05 07:55 | Day surgery (SDC) | payer OTHER, BC ==
[2022-09-05 08:52] VITALS: BMI 31.1
[2022-09-05] MEDS ORDERED: ALBUMIN HUMAN 25% 300 ML IV ONE (10:41)
--- NOTE | 2022-09-05 11:45 | RAD REPORT ---
EXAM DESCRIPTION: US - Paracentesis Proc Guidance - 09/05/2022 11:11 am CLINICAL HISTORY: ASCITES Ascites COMPARISON: Paracentesis Proc Guidance dated 08/29/2022 FINDINGS: Informed consent was obtained and time-out was performed. Patient's abdomen was prepped and draped in the usual sterile fashion. 1% lidocaine was used for loca l anesthetic purposes. A small skin incision was made right lower quadrant region. A paracentesis catheter was guided into t he peroneal cavity under sonographic guidance. A small amount of fluid was sent for requested lab studies. A large volume paracentesis was performed . The patient tolerated the procedure well. Patient was administered IV albumin per protocol following the procedure. IMPRESSION: Successful ultrasound-guided paracentesis.
[2022-09-05 12:44] VITALS: BP 127/46; TEMP 98; O2SAT 98
[2022-09-05 13:54] LABS: Body Fluid Source PERITONEAL; Color of fluid Yellow (COLORLESS)
[2022-09-05 13:55] LABS: Appearance SLT. TURBID (CLEAR)
[2022-09-05 15:24] LABS: Body Fluid WBC 36 /mm^3
== END 2022-09-05 12:20 | disposition home or self-care (01) ==
LOC: DS 07:55
PROVIDERS: ATTEND Legal Medicine
DX: R18.8 Other ascites (principal); K75.81 Nonalcoholic steatohepatitis (NASH); Z76.82 Awaiting organ transplant status
CPT/HCPCS: 36415; 89050; 87205; 84157; 96365; 49083; P9047

== ENCOUNTER 2022-09-12 07:27 | Day surgery (SDC) | payer OTHER, BC ==
[2022-09-12 08:09] LABS: MPV 8.8 fL (7.6-11.3); Protime INR 1.25
[2022-09-12 08:24] VITALS: BMI 31.1
[2022-09-12] MEDS ORDERED: ALBUMIN HUMAN 25% 300 ML IV ONE (09:42)
--- NOTE | 2022-09-12 10:22 | RAD REPORT ---
EXAM DESCRIPTION: US - Paracentesis Proc Guidance - 09/12/2022 9:42 am CLINICAL HISTORY: Liver disease with ascites FINDINGS: The risks, benefits and alternatives to the procedure were explained to the patient and in formed consent obtained. The skin and subcutaneous tissues were anesthetized with Lidocaine. Under sonographic guidance an 8 F rench catheter was placed into the right lower quadrant. 6 liters of yellow fluid removed. Fluid sent to the lab. The patient experienced no immediate complication. IMPRESSION: Paracentesis
[2022-09-12 12:48] LABS: Appearance CLEAR (CLEAR); Body Fluid Source PERITONEAL; Color of fluid Yellow (COLORLESS)
[2022-09-12 12:49] LABS: Body Fluid WBC 12 /mm^3
[2022-09-12 14:29] VITALS: BP 140/51; TEMP 98; O2SAT 100
== END 2022-09-12 11:45 | disposition home or self-care (01) ==
LOC: DS 07:27
PROVIDERS: ATTEND Legal Medicine
DX: R18.8 Other ascites (principal); K75.81 Nonalcoholic steatohepatitis (NASH); Z76.82 Awaiting organ transplant status
CPT/HCPCS: 87070; 36415; 89050; 85049; 84157; 85610; 85730; 96365; 49083; 96366; P9047

== ENCOUNTER 2022-09-26 07:56 | Day surgery (SDC) | payer OTHER, BC ==
[2022-09-26 08:50] VITALS: BMI 32.1
[2022-09-26] MEDS ORDERED: ALBUMIN HUMAN 25% 300 ML IV ONE (09:59)
--- NOTE | 2022-09-26 10:43 | RAD REPORT ---
EXAM DESCRIPTION: US - Paracentesis Proc Guidance - 09/26/2022 9:54 am CLINICAL HISTORY: ASCITES Ascites COMPARISON: Paracentesis Proc Guidance dated 09/19/2022 FINDINGS: Informed consent was obtained and time-out was performed. Patient's abdomen was prepped and draped in the usual sterile fashion. 1% lidocaine was used for loca l anesthetic purposes. A small skin incision was made right lower quadrant. A paracentesis catheter was guided into the ricky caryn cavity under sonographic guidance. A small amount of fluid was sent for requested lab studies. A large volume paracentesis was performed . The patient tolerated the procedure well. Patient was administered IV albumin per protocol following the procedure. IMPRESSION: Successful ultrasound-guided paracentesis.
[2022-09-26 12:21] LABS: Body Fluid WBC 121 /mm^3
[2022-09-26 12:39] LABS: Appearance TURBID (CLEAR); Body Fluid Source PERITONEAL; Color of fluid Red (COLORLESS)
[2022-09-26 12:44] VITALS: BP 141/47; TEMP 97.6; O2SAT 100
== END 2022-09-26 12:32 | disposition home or self-care (01) ==
LOC: DS 07:56
PROVIDERS: ATTEND Legal Medicine
DX: R18.8 Other ascites (principal); K75.81 Nonalcoholic steatohepatitis (NASH); Z76.82 Awaiting organ transplant status
CPT/HCPCS: 36415; 89050; 87205; 84157; 96365; 49083; 96366; P9047

== ENCOUNTER 2022-10-03 07:49 | Day surgery (SDC) | payer OTHER, BC ==
[2022-10-03 09:58] VITALS: O2SAT 100; BMI 31.4
[2022-10-03] MEDS ORDERED: ALBUMIN HUMAN 25% 300 ML IV ONE (11:02)
--- NOTE | 2022-10-03 15:00 | RAD REPORT ---
EXAM DESCRIPTION: US - Paracentesis Proc Guidance - 10/03/2022 11:10 am CLINICAL HISTORY: Ascites COMPARISON: Multiple prior paracentesis procedures. TECHNIQUE: The patient presents for ultrasound-guided paracentesis. The procedure, risks and altern atives were discussed with the patient in detail. Oral and written consent were obtained. Time out p rocedure was performed. The patient had no contraindicated allergy or medication history. PT, INR va lues within acceptable limits. Preliminary sonographic evaluation identified right lower access site. The skin and deeper tissues w ere anesthetized with 1 percent lidocaine. Under direct sonographic visualization, a paracentesis ca theter was advanced into the peritoneal cavity. Approximately 10 mL of ascites retained for requested laboratory studies. Large volume drainage was initiated. Approximately 6 liters of ascites removed. At the conclusion of the procedure, catheter was withdrawn and a bandage placed at the puncture site. Postprocedure care and precaution instructions were given to the patient. The patient was transferr ed back to the same day surgical area for albumin infusion using referring physician protocol. IMPRESSION: Ultrasound-guided paracentesis as detailed.
[2022-10-03 15:57] VITALS: BP 128/39; TEMP 98
[2022-10-03 18:00] LABS: Body Fluid Source PERITONEAL
[2022-10-03 18:01] LABS: Appearance TURBID (CLEAR); Body Fluid WBC 36 /mm^3; Color of fluid Yellow (COLORLESS)
== END 2022-10-03 12:05 | disposition home or self-care (01) ==
LOC: DS 07:49
PROVIDERS: ATTEND Legal Medicine
DX: R18.8 Other ascites (principal); K75.81 Nonalcoholic steatohepatitis (NASH); Z76.82 Awaiting organ transplant status
CPT/HCPCS: 36415; 89050; 87205; 84157; 96365; 49083; P9047

== ENCOUNTER 2022-10-08 07:53 | Day surgery (SDC) | payer OTHER, BC ==
[2022-10-08 08:23] VITALS: BMI 31.1
[2022-10-08] MEDS ORDERED: ALBUMIN HUMAN 25% 200 ML IV ONE (09:14)
--- NOTE | 2022-10-08 09:21 | RAD REPORT ---
EXAM DESCRIPTION: US - Paracentesis Proc Guidance - 10/08/2022 8:52 am CLINICAL HISTORY: ASCITES Ascites COMPARISON: Paracentesis Proc Guidance dated 10/03/2022 FINDINGS: Informed consent was obtained and time-out was performed. Patient's abdomen was prepped and draped in the usual sterile fashion. 1% lidocaine was used for loca l anesthetic purposes. A small skin incision was made in the right lower quadrant. A paracentesis catheter was guided into t he peroneal cavity under sonographic guidance. A small amount of fluid was sent for requested lab studies. A large volume paracentesis was performed . The patient tolerated the procedure well. Patient was administered IV albumin per protocol following the procedure. IMPRESSION: Successful ultrasound-guided paracentesis.
[2022-10-08 09:27] VITALS: O2SAT 98
[2022-10-08 10:53] VITALS: BP 150/50; TEMP 97.9
[2022-10-08 12:00] LABS: Appearance CLEAR (CLEAR); Body Fluid Source PERITONEAL; Body Fluid WBC 93 /mm^3; Color of fluid Yellow (COLORLESS)
== END 2022-10-08 10:30 | disposition home or self-care (01) ==
LOC: DS 07:53
PROVIDERS: ATTEND Legal Medicine
DX: R18.8 Other ascites (principal); K75.81 Nonalcoholic steatohepatitis (NASH); Z76.82 Awaiting organ transplant status
CPT/HCPCS: 87070; 36415; 89050; 84157; 96365; 49083; P9047

== ENCOUNTER 2022-10-17 07:28 | Day surgery (SDC) | payer OTHER, BC ==
[2022-10-17 08:01] LABS: Absolute Lymphocytes (CBC) 0.7 K/uL (0.7-4.9); Hematocrit 30.1 % (36.0-45.0); MCV 87.9 fL (80-100); RBC Red Blood Cell Count 3.42 M/uL (3.86-4.86)
[2022-10-17 08:07] LABS: Protime INR 1.31
[2022-10-17 08:08] VITALS: O2SAT 100; BMI 29.6
[2022-10-17 08:56] LABS: Blood Morphology Comment NOT SEEN (NOT SEEN); Platelet Estimate DECR; White Blood Cell Scan OK (OK)
[2022-10-17] MEDS ORDERED: ALBUMIN HUMAN 25% 300 ML IV ONE (09:35)
--- NOTE | 2022-10-17 09:38 | RAD REPORT ---
EXAM DESCRIPTION: US - Paracentesis Proc Guidance - 10/17/2022 9:17 am CLINICAL HISTORY: ASCITES Ascites COMPARISON: Paracentesis Proc Guidance dated 10/08/2022 FINDINGS: Informed consent was obtained and time-out was performed. Patient's abdomen was prepped and draped in the usual sterile fashion. 1% lidocaine was used for loca l anesthetic purposes. A small skin incision was made. A paracentesis catheter was guided into the peroneal cavity under son ographic guidance. A small amount of fluid was sent for requested lab studies. A large volume paracentesis was performed . The patient tolerated the procedure well. Patient was administered IV albumin per protocol following the procedure. IMPRESSION: Successful ultrasound-guided paracentesis.
[2022-10-17 10:34] VITALS: BP 149/44; TEMP 97.4
[2022-10-17 12:36] LABS: Appearance CLEAR (CLEAR); Body Fluid Source PERITONEAL; Color of fluid Yellow (COLORLESS)
[2022-10-17 12:37] LABS: Body Fluid WBC 70 /mm^3
== END 2022-10-17 10:34 | disposition home or self-care (01) ==
LOC: DS 07:28
PROVIDERS: ATTEND Legal Medicine
DX: R18.8 Other ascites (principal); K75.81 Nonalcoholic steatohepatitis (NASH); Z76.82 Awaiting organ transplant status
CPT/HCPCS: 85025; 36415; 89050; 87205; 84157; 85610; 85730; 96365; 49083; P9047

== ENCOUNTER 2022-10-24 07:47 | Day surgery (SDC) | payer OTHER, BC ==
[2022-10-24 08:19] VITALS: BMI 30.4
[2022-10-24] MEDS ORDERED: ALBUMIN HUMAN 25% 200 ML IV ONE (09:49)
--- NOTE | 2022-10-24 10:25 | RAD REPORT ---
EXAM DESCRIPTION: US - Paracentesis Proc Guidance - 10/24/2022 8:59 am CLINICAL HISTORY: ASCITES Ascites COMPARISON: Paracentesis Proc Guidance dated 10/17/2022 FINDINGS: Informed consent was obtained and time-out was performed. Patient's abdomen was prepped and draped in the usual sterile fashion. 1% lidocaine was used for loca l anesthetic purposes. A small skin incision was made right lower quadrant. A paracentesis catheter was guided into the ricky caryn cavity under sonographic guidance. A small amount of fluid was sent for requested lab studies. 5.5 liters of fluid was then drained. The patient tolerated the procedure well. Patient was administered IV albumin per protocol following the procedure. IMPRESSION: Successful ultrasound-guided paracentesis.
[2022-10-24 11:11] VITALS: TEMP 97.3
[2022-10-24 11:12] VITALS: BP 140/43; O2SAT 99
[2022-10-24 14:19] LABS: Body Fluid Source PERITONEAL
[2022-10-24 14:20] LABS: Appearance CLEAR (CLEAR); Body Fluid WBC 24 /mm^3; Color of fluid Yellow (COLORLESS)
== END 2022-10-24 11:35 | disposition home or self-care (01) ==
LOC: DS 07:47
PROVIDERS: ATTEND Legal Medicine
DX: R18.8 Other ascites (principal); K75.81 Nonalcoholic steatohepatitis (NASH); Z76.82 Awaiting organ transplant status
CPT/HCPCS: 36415; 89050; 87205; 84157; 96365; 49083; P9047

== ENCOUNTER 2022-10-31 07:25 | Day surgery (SDC) | payer OTHER, BC ==
[2022-10-31 08:03] VITALS: BMI 30.9
[2022-10-31] MEDS ORDERED: ALBUMIN HUMAN 25% 300 ML IV ONE (09:41)
--- NOTE | 2022-10-31 09:55 | RAD REPORT ---
EXAM DESCRIPTION: US - Paracentesis Proc Guidance - 10/31/2022 9:10 am CLINICAL HISTORY: Liver disease with ascites FINDINGS: The risks, benefits and alternatives to the procedure were explained to the patient and in formed consent obtained. The skin and subcutaneous tissues were anesthetized with Lidocaine. Under sonographic guidance an 8 F rench catheter was placed into the right lower quadrant. 6.5 liters of yellow fluid removed. The patient experienced no immediate complication. IMPRESSION: Paracentesis
[2022-10-31 11:33] VITALS: BP 138/51; TEMP 97; O2SAT 97
== END 2022-10-31 11:40 | disposition home or self-care (01) ==
LOC: DS 07:25
PROVIDERS: ATTEND Legal Medicine
DX: R18.8 Other ascites (principal); K75.81 Nonalcoholic steatohepatitis (NASH); Z76.82 Awaiting organ transplant status
CPT/HCPCS: 96365; 49083; P9047

== ENCOUNTER 2022-11-07 07:57 | Day surgery (SDC) | payer OTHER, BC ==
[2022-11-07 08:40] VITALS: BMI 30.9
[2022-11-07] MEDS ORDERED: ALBUMIN HUMAN 25% 100 ML IV ONE (09:51)
--- NOTE | 2022-11-07 09:57 | RAD REPORT ---
EXAM DESCRIPTION: US - Paracentesis Proc Guidance - 11/07/2022 9:39 am CLINICAL HISTORY: ASCITES Ascites COMPARISON: Paracentesis Proc Guidance dated 10/31/2022 FINDINGS: Informed consent was obtained and time-out was performed. Patient's abdomen was prepped and draped in the usual sterile fashion. 1% lidocaine was used for loca l anesthetic purposes. A small skin incision was made. A paracentesis catheter was guided into the peroneal cavity under son ographic guidance. A small amount of fluid was sent for requested lab studies. A large volume paracentesis was performed . The patient tolerated the procedure well. Patient was administered IV albumin per protocol following the procedure. IMPRESSION: Successful ultrasound-guided paracentesis.
[2022-11-07 12:00] LABS: Appearance CLEAR (CLEAR); Body Fluid Source PERITONEAL; Color of fluid Yellow (COLORLESS)
[2022-11-07 12:01] LABS: Body Fluid WBC 106 /mm^3
[2022-11-07 12:30] VITALS: BP 139/47; TEMP 98.2; O2SAT 100
== END 2022-11-07 12:25 | disposition home or self-care (01) ==
LOC: DS 07:57
PROVIDERS: ATTEND Legal Medicine
DX: R18.8 Other ascites (principal); K75.81 Nonalcoholic steatohepatitis (NASH); Z76.82 Awaiting organ transplant status
CPT/HCPCS: 36415; 89050; 87205; 84157; 96365; 49083; 96366; P9047

== ENCOUNTER 2022-11-14 07:43 | Day surgery (SDC) | payer OTHER, BC ==
[2022-11-14 08:25] VITALS: BMI 30.6
[2022-11-14] MEDS ORDERED: ALBUMIN HUMAN 25% 200 ML IV ONE (09:44)
[2022-11-14] MEDS ORDERED: ALBUMIN HUMAN 25% 50 ML IV ONE (09:44)
--- NOTE | 2022-11-14 10:11 | RAD REPORT ---
EXAM DESCRIPTION: US - Paracentesis Proc Guidance - 11/14/2022 9:53 am CLINICAL HISTORY: Ascites COMPARISON: Multiple prior paracentesis procedures. TECHNIQUE: The patient presents for ultrasound-guided paracentesis. The procedure, risks and altern atives were discussed with the patient in detail. Oral and written consent were obtained. Time out p rocedure was performed. The patient had no contraindicated allergy or medication history. Most recen t platelet and INR values were within acceptable limits. Preliminary sonographic evaluation identified right lower quadrant access site. The skin and deeper tissues were anesthetized with 1 percent lidocaine. Under direct sonographic visualization, a parace ntesis catheter was advanced into the peritoneal cavity. Approximately 15 mL of ascites retained for requested laboratory studies. Large volume drainage was initiated. Approximately 5.5 liters of ascite s removed. At the conclusion of the procedure, catheter was withdrawn and a bandage placed at the puncture site. Postprocedure care and precaution instructions were given to the patient. The patient was transferr ed back to the same day surgical area for albumin infusion utilizing referring physician protocol. IMPRESSION: Ultrasound-guided paracentesis as detailed.
[2022-11-14 10:53] VITALS: BP 138/49; TEMP 97.1; O2SAT 97
[2022-11-14 13:27] LABS: Body Fluid WBC 42 /mm^3
[2022-11-14 16:11] LABS: Body Fluid Source PERITONEAL
[2022-11-14 16:12] LABS: Color of fluid Yellow (COLORLESS)
[2022-11-14 16:15] LABS: Appearance TURBID (CLEAR)
== END 2022-11-14 11:20 | disposition home or self-care (01) ==
LOC: DS 07:43
PROVIDERS: ATTEND Legal Medicine
DX: R18.8 Other ascites (principal); K75.81 Nonalcoholic steatohepatitis (NASH); Z76.82 Awaiting organ transplant status
CPT/HCPCS: 87070; 36415; 89050; 84157; 96365; 49083; P9047 ×2

== ENCOUNTER 2022-11-24 07:30 | Day surgery (SDC) | payer OTHER, BC ==
[2022-11-24 08:07] LABS: MPV 9.4 fL (7.6-11.3)
[2022-11-24 08:24] LABS: Protime INR 1.32
[2022-11-24 09:51] VITALS: TEMP 97.4; O2SAT 100; BMI 30.7
[2022-11-24] MEDS ORDERED: ALBUMIN HUMAN 25% 200 ML IV ONE (10:36)
--- NOTE | 2022-11-24 10:40 | RAD REPORT ---
EXAM DESCRIPTION: US - Paracentesis Proc Guidance - 11/24/2022 10:19 am CLINICAL HISTORY: Ascites COMPARISON: Multiple prior paracentesis procedures. TECHNIQUE: The patient presents for ultrasound-guided paracentesis. The procedure, risks and altern atives were discussed with the patient in detail. Oral and written consent were obtained. Time out p rocedure was performed. The patient had no contraindicated allergy or medication history. PT, INR va lues within acceptable limits. Preliminary sonographic evaluation identified in right lower quadrant access site. The skin and deep er tissues were anesthetized with 1 percent lidocaine. Under direct sonographic visualization, a par acentesis catheter was advanced into the peritoneal cavity. Approximately 15 mL of ascites retained f or requested laboratory studies. Large volume drainage was initiated. Approximately 5 liters of ascit es removed. At the conclusion of the procedure, catheter was withdrawn and a bandage placed at the puncture site. Postprocedure care and precaution instructions were given to the patient. [facility] same day surgical area for possible albumin infusion using referring physician protocol. IMPRESSION: Ultrasound-guided paracentesis as detailed.
[2022-11-24 12:26] VITALS: BP 140/60
[2022-11-24 14:01] LABS: Body Fluid Source PERITONEAL
[2022-11-24 14:05] LABS: Appearance CLEAR (CLEAR); Color of fluid Yellow (COLORLESS)
[2022-11-24 18:35] LABS: Body Fluid WBC 52 /mm^3
== END 2022-11-24 11:45 | disposition home or self-care (01) ==
LOC: DS 07:30
PROVIDERS: ATTEND Legal Medicine
DX: R18.8 Other ascites (principal); K75.81 Nonalcoholic steatohepatitis (NASH); Z76.82 Awaiting organ transplant status
CPT/HCPCS: 36415; 49083; 84157; 85049; 85384; 85610; 85730; 87205; 89050; 96365; P9047

== ENCOUNTER 2022-12-05 07:53 | Day surgery (SDC) | payer OTHER, BC ==
[2022-12-05 08:32] VITALS: BP 125/34; TEMP 98.2; O2SAT 97; BMI 32.1
[2022-12-05] MEDS ORDERED: ALBUMIN HUMAN 25% 0 ML IV ONE (09:56)
[2022-12-05] MEDS ORDERED: ALBUMIN HUMAN 25% 200 ML IV ONE (09:58)
--- NOTE | 2022-12-05 10:24 | RAD REPORT ---
EXAM DESCRIPTION: US - Paracentesis Proc Guidance - 12/05/2022 9:16 am CLINICAL HISTORY: Liver disease with ascites FINDINGS: The risks, benefits and alternatives to the procedure were explained to the patient and in formed consent obtained. The skin and subcutaneous tissues were anesthetized with Lidocaine. Under sonographic guidance an 8 F rench catheter was placed into the right lower quadrant. 4.2 liters of yellow fluid removed. Fluid se nt to the lab. The patient experienced no immediate complication. IMPRESSION: Paracentesis
[2022-12-05 13:56] LABS: Body Fluid WBC 60 /mm^3
[2022-12-05 17:17] LABS: Appearance CLEAR (CLEAR); Body Fluid Source PERITONEAL; Color of fluid Yellow (COLORLESS)
== END 2022-12-05 11:18 | disposition home or self-care (01) ==
LOC: DS 07:53
PROVIDERS: ATTEND Legal Medicine
DX: K75.81 Nonalcoholic steatohepatitis (NASH) (principal); K76.82 Hepatic encephalopathy; R18.8 Other ascites
CPT/HCPCS: 87070; 36415; 89050; 84157; 96365; 49083; P9047

== ENCOUNTER → 2022-12-12 | Day surgery (SDC) | payer OTHER, BC ==
[~2022-12-12] MED LIST changes: +ALBUMIN HUMAN 25% 200 ML IV ONE; -ALBUMIN HUMAN 25% 300 ML IV ONE
[2022-12-12 08:41] VITALS: BMI 31.9
--- NOTE | 2022-12-12 10:15 | RAD REPORT ---
EXAM DESCRIPTION: US - Paracentesis Proc Guidance - 12/12/2022 10:02 am CLINICAL HISTORY: Ascites COMPARISON: Multiple prior paracentesis procedures TECHNIQUE: The patient presents for ultrasound-guided paracentesis. The procedure, risks and altern atives were discussed with the patient in detail. Oral and written consent were obtained. Time out p rocedure was performed. The patient had no contraindicated allergy or medication history. PT, INR va lues within acceptable limits. Preliminary sonographic evaluation identified right lower quadrant access site. The skin and deeper tissues were anesthetized with 1 percent lidocaine. Under direct sonographic visualization, a parace ntesis catheter was advanced into the peritoneal cavity. Approximately 12 mL of ascites removed for l aboratory studies. Large volume drainage was initiated. Approximately 3.4 liters of ascites removed. At the conclusion of the procedure, catheter was withdrawn and a bandage placed at the puncture site. Postprocedure care and precaution instructions were given to the patient. Patient was transferred t o the same day surgical area for postprocedure albumin infusion using referring physician protocol. IMPRESSION: Ultrasound-guided paracentesis as detailed.
[2022-12-12 11:30] VITALS: BP 131/43; TEMP 98.5; O2SAT 98
[2022-12-12 12:56] LABS: Body Fluid WBC 76 /mm^3
[2022-12-12 14:59] LABS: Body Fluid Source PERITONEAL
[2022-12-12 15:08] LABS: Color of fluid Yellow (COLORLESS)
[2022-12-12 15:09] LABS: Appearance CLEAR (CLEAR)
== END ==
LOC: DS 07:59
PROVIDERS: ATTEND Legal Medicine
DX: R18.8 Other ascites (principal); K75.81 Nonalcoholic steatohepatitis (NASH); Z76.82 Awaiting organ transplant status
CPT/HCPCS: 36415; 89050; 87205; 84157; 96365; 49083; P9047

== ENCOUNTER 2022-12-19 07:46 | Day surgery (SDC) | payer OTHER, BC ==
[2022-12-19 09:48] VITALS: BP 119/44; TEMP 98.1; O2SAT 99; BMI 30.2
--- NOTE | 2022-12-19 10:10 | RAD REPORT ---
EXAM DESCRIPTION: US - Abdomen Exam Limited - 12/19/2022 9:16 am CLINICAL HISTORY: ASCITES COMPARISON: ABDOMINAL EXAM LIMITED dated 08/15/2010 FINDINGS: Real-time sonography of the abdomen was performed. The amount of ascites in the abdomen is insufficient currently for drainage. The patient will return next Thursday for reassessment. IMPRESSION: Insufficient amount of fluid for drainage currently.
== END 2022-12-19 09:51 | disposition home or self-care (01) ==
LOC: DS 07:46
PROVIDERS: ATTEND Legal Medicine
DX: R18.8 Other ascites (principal); K75.81 Nonalcoholic steatohepatitis (NASH); Z76.82 Awaiting organ transplant status; Z53.8 Procedure and treatment not carried out for other reasons
CPT/HCPCS: 76705

== ENCOUNTER 2023-01-02 07:30 | Day surgery (SDC) | payer OTHER, BC ==
[2023-01-02 08:03] VITALS: BMI 32.1
[2023-01-02 08:43] LABS: MPV 8.8 fL (7.6-11.3)
[2023-01-02 08:56] LABS: Protime INR 1.32
--- NOTE | 2023-01-02 10:04 | RAD REPORT ---
EXAM DESCRIPTION: US - Paracentesis Proc Guidance - 01/02/2023 9:49 am CLINICAL HISTORY: ASCITES Ascites COMPARISON: Paracentesis Proc Guidance dated 12/12/2022 FINDINGS: Informed consent was obtained and time-out was performed. Patient's abdomen was prepped and draped in the usual sterile fashion. 1% lidocaine was used for loca l anesthetic purposes. A small skin incision was made. A paracentesis catheter was guided into the peroneal cavity under son ographic guidance. A small amount of fluid was sent for requested lab studies. A large volume paracentesis was performed . The patient tolerated the procedure well. Patient was administered IV albumin per protocol following the procedure. IMPRESSION: Successful ultrasound-guided paracentesis.
[2023-01-02] MEDS ORDERED: ALBUMIN HUMAN 25% 0 ML IV ONE (10:13)
[2023-01-02] MEDS ORDERED: ALBUMIN HUMAN 25% 300 ML IV ONE (10:14)
[2023-01-02 12:40] VITALS: BP 136/69; TEMP 97.3; O2SAT 95
[2023-01-02 15:18] LABS: Appearance CLEAR (CLEAR); Body Fluid Source PERITONEAL; Body Fluid WBC 48 /mm^3; Color of fluid Yellow (COLORLESS)
== END 2023-01-02 12:10 | disposition home or self-care (01) ==
LOC: DS 07:30
PROVIDERS: ATTEND Legal Medicine
DX: R18.8 Other ascites (principal); K75.81 Nonalcoholic steatohepatitis (NASH); Z76.82 Awaiting organ transplant status
CPT/HCPCS: 87070; 36415; 88108; 89050; 85049; 84157; 85610; 88305; 85730; 49083; P9047

== ENCOUNTER 2023-01-09 06:55 | Day surgery (SDC) | payer OTHER, BC ==
[2023-01-09 07:33] VITALS: BMI 32.4
[2023-01-09] MEDS ORDERED: ALBUMIN HUMAN 25% 300 ML IV ONE (08:59)
[2023-01-09 10:07] VITALS: BP 109/74; TEMP 97.6; O2SAT 99
[2023-01-09 11:52] LABS: Appearance CLEAR (CLEAR); Body Fluid Source PERITONEAL; Body Fluid WBC 111 /mm^3; Color of fluid Yellow (COLORLESS)
--- NOTE | 2023-01-09 14:00 | RAD REPORT ---
EXAM DESCRIPTION: US - Paracentesis Proc Guidance - 01/09/2023 8:54 am CLINICAL HISTORY: ASCITES COMPARISON: Paracentesis Proc Guidance dated 01/02/2023 FINDINGS: Informed consent was obtained and time-out was performed. Patient's abdomen was prepped and draped in the usual sterile fashion. 1% lidocaine was used for loca l anesthetic purposes. A small skin incision was made. A paracentesis catheter was guided into the peroneal cavity under son ographic guidance. 60 mL of fluid was sent for requested lab studies. A large volume paracentesis was performed. The patient tolerated the procedure well. Patient was administered IV albumin per protocol following the procedure. IMPRESSION: Successful ultrasound-guided paracentesis. A total of 5.8 liters were removed.
== END 2023-01-09 10:05 | disposition home or self-care (01) ==
LOC: DS 06:55
PROVIDERS: ATTEND Legal Medicine
DX: R18.8 Other ascites (principal); R14.0 Abdominal distension (gaseous)
CPT/HCPCS: 87070; 36415; 88108; 89050; 84157; 88305; 96365; 49083; P9047

== ENCOUNTER 2023-01-16 07:39 | Day surgery (SDC) | payer OTHER, BC ==
[2023-01-16 08:20] VITALS: O2SAT 100
[2023-01-16 08:21] VITALS: BMI 31.1
--- NOTE | 2023-01-16 09:20 | RAD REPORT ---
EXAM DESCRIPTION: US - Paracentesis Proc Guidance - 01/16/2023 9:10 am CLINICAL HISTORY: ASCITES Ascites COMPARISON: Paracentesis Proc Guidance dated 01/09/2023 FINDINGS: Informed consent was obtained and time-out was performed. Patient's abdomen was prepped and draped in the usual sterile fashion. 1% lidocaine was used for loca l anesthetic purposes. A small skin incision was made. A paracentesis catheter was guided into the peroneal cavity under son ographic guidance. A small amount of fluid was sent for requested lab studies. A large volume paracentesis was performed . The patient tolerated the procedure well. Patient was administered IV albumin per protocol following the procedure. IMPRESSION: Successful ultrasound-guided paracentesis.
[2023-01-16] MEDS ORDERED: ALBUMIN HUMAN 25% 300 ML IV ONE (09:28)
[2023-01-16 10:58] VITALS: TEMP 97.3
[2023-01-16 10:59] VITALS: BP 135/50
[2023-01-16 15:07] LABS: Body Fluid Source OTHER
[2023-01-16 15:08] LABS: Appearance CLEAR (CLEAR); Body Fluid WBC 24 /mm^3; Color of fluid Yellow (COLORLESS)
== END 2023-01-16 11:49 | disposition home or self-care (01) ==
LOC: DS 07:39
PROVIDERS: ATTEND Legal Medicine
DX: R18.8 Other ascites (principal); K74.60 Unspecified cirrhosis of liver
CPT/HCPCS: 87070; 36415; 88108; 89050; 84157; 88305; 96365; 49083; 96366; P9047

== ENCOUNTER → 2023-01-23 | Day surgery (SDC) | payer OTHER, BC ==
[~2023-01-23] MED LIST changes: -ALBUMIN HUMAN 25% 200 ML IV ONE; +ALBUMIN HUMAN 25% 300 ML IV ONE
[2023-01-23 08:21] VITALS: O2SAT 100; BMI 32.4
--- NOTE | 2023-01-23 09:20 | RAD REPORT ---
EXAM DESCRIPTION: US - Paracentesis Proc Guidance - 01/23/2023 9:15 am CLINICAL HISTORY: ASCITES Ascites COMPARISON: Paracentesis Proc Guidance dated 01/16/2023 FINDINGS: Informed consent was obtained and time-out was performed. Patient's abdomen was prepped and draped in the usual sterile fashion. 1% lidocaine was used for loca l anesthetic purposes. A small skin incision was made. A paracentesis catheter was guided into the peroneal cavity under son ographic guidance. A small amount of fluid was sent for requested lab studies. A large volume paracentesis was performed . The patient tolerated the procedure well. Patient was administered IV albumin per protocol following the procedure. IMPRESSION: Successful ultrasound-guided paracentesis.
[2023-01-23 11:12] LABS: Appearance SLT. TURBID (CLEAR); Body Fluid Source OTHER; Body Fluid WBC 52 /mm^3; Color of fluid Yellow (COLORLESS)
[2023-01-23 12:09] VITALS: BP 150/45; TEMP 98
== END ==
LOC: DS 07:45
PROVIDERS: ATTEND Legal Medicine
DX: R18.8 Other ascites (principal); K74.60 Unspecified cirrhosis of liver
CPT/HCPCS: 36415; 49083; 84157; 87070; 88108; 88305; 89050; 96365; P9047

== ENCOUNTER 2023-01-30 07:40 | Day surgery (SDC) | payer OTHER, BC ==
[2023-01-30 08:19] VITALS: O2SAT 100; BMI 30.7
[2023-01-30 08:28] LABS: MPV 9.7 fL (7.6-11.3)
[2023-01-30 08:31] LABS: Protime INR 1.3
[2023-01-30 10:39] VITALS: BP 119/31; TEMP 97.4
--- NOTE | 2023-01-30 13:38 | RAD REPORT ---
EXAM DESCRIPTION: US - Paracentesis Proc Guidance - 01/30/2023 9:38 am CLINICAL HISTORY: PARACENTESIS Ascites COMPARISON: Paracentesis Proc Guidance dated 01/23/2023 TECHNIQUE AND FINDINGS: Informed consent was obtained and time-out was performed. Patient's abdomen was prepped and draped in the usual sterile fashion. 1% lidocaine was used for loca l anesthetic purposes. Real-time sonographic guidance was utilized to localize the largest fluid pocket in the right flank. A small skin incision was made. A paracentesis catheter was guided into the peroneal cavity under son ographic guidance. A small amount of fluid was sent for requested lab studies. A large volume paracentesis was performed . The patient tolerated the procedure well. Patient was administered IV albumin per protocol following the procedure. IMPRESSION: Successful ultrasound-guided paracentesis. A total of 5 liters of ascitic fluid were rem gregory.
[2023-01-30 16:24] LABS: Body Fluid WBC 45 /mm^3
[2023-01-30 17:26] LABS: Appearance SLT. TURBID (CLEAR); Body Fluid Source PERITONEAL; Color of fluid Yellow (COLORLESS)
== END 2023-01-30 11:30 | disposition home or self-care (01) ==
LOC: DS 07:40
PROVIDERS: ATTEND Legal Medicine
DX: R18.8 Other ascites (principal); R14.0 Abdominal distension (gaseous); K76.9 Liver disease, unspecified
CPT/HCPCS: 36415; 49083; 84157; 85049; 85610; 85730; 87070; 88108; 88305; 89050; 96365

== ENCOUNTER 2023-02-06 08:10 | Day surgery (SDC) | payer OTHER, BC ==
[2023-02-06 08:58] VITALS: O2SAT 100; BMI 30.7
--- NOTE | 2023-02-06 09:46 | RAD REPORT ---
EXAM DESCRIPTION: US - Paracentesis Proc Guidance - 02/06/2023 9:26 am CLINICAL HISTORY: ASCITES Ascites COMPARISON: Paracentesis Proc Guidance dated 01/30/2023 FINDINGS: Informed consent was obtained and time-out was performed. Patient's abdomen was prepped and draped in the usual sterile fashion. 1% lidocaine was used for loca l anesthetic purposes. A small skin incision was made in the right lower quadrant. A paracentesis catheter was guided into t he peroneal cavity under sonographic guidance. A small amount of fluid was sent for requested lab studies. A large volume paracentesis was performed . The patient tolerated the procedure well. Patient was administered IV albumin per protocol following the procedure. IMPRESSION: Successful ultrasound-guided paracentesis.
[2023-02-06] MEDS ORDERED: ALBUMIN HUMAN 25% 300 ML IV ONE (09:57)
[2023-02-06 10:43] LABS: Appearance CLEAR (CLEAR); Body Fluid Source PERITONEAL; Body Fluid WBC 82 /mm^3; Color of fluid Yellow (COLORLESS)
[2023-02-06 11:49] VITALS: BP 123/38; TEMP 98.6
== END 2023-02-06 11:20 | disposition home or self-care (01) ==
LOC: DS 08:10
PROVIDERS: ATTEND Legal Medicine
DX: R18.8 Other ascites (principal)
CPT/HCPCS: 87070; 36415; 88108; 89050; 84157; 88305; 96365; 49083; P9047

== ENCOUNTER 2023-03-13 07:49 | Day surgery (SDC) | payer OTHER, BC ==
[2023-03-13 08:36] LABS: Absolute Lymphocytes (CBC) 0.5 K/uL (0.7-4.9); Hematocrit 18.2 % (36.0-45.0); Lymphocytes % 17.6 % (15.3-44.8); MCV 74.7 fL (80-100); MPV 9.6 fL (7.6-11.3); RBC Red Blood Cell Count 2.44 M/uL (3.86-4.86)
[2023-03-13 08:50] LABS: Bilirubin Total 0.7 mg/dL (0.2-1.0); Ferritin 8.5 ng/mL (8-388); Potassium 4.5 mEq/L (3.5-5.1); Protein, Total 5.6 g/dL (6.4-8.2)
[2023-03-13 09:22] LABS: Blood Morphology Comment NOTED (NOT SEEN); Hypochromasia 2+; Platelet Estimate DECR; Poikilocytosis SLIGHT; Rouleau NOTED; Teardrop Cell FEW; White Blood Cell Scan OK (OK)
[2023-03-13 09:43] VITALS: O2SAT 100; BMI 28.1
[2023-03-13] MEDS ORDERED: ALBUMIN HUMAN 25% 150 ML IV ONE (10:13)
[2023-03-13 10:32] VITALS: TEMP 97.3
[2023-03-13 12:02] VITALS: BP 133/44
--- NOTE | 2023-03-13 12:40 | RAD REPORT ---
EXAM DESCRIPTION: US - Paracentesis Proc Guidance - 03/13/2023 10:10 am CLINICAL HISTORY: ASCITES Ascites COMPARISON: Paracentesis Proc Guidance dated 03/06/2023 FINDINGS: Benefits and risks were explained to the patient. Informed consent was obtained and time-o ut was performed. Patient's abdomen was prepped and draped in the usual sterile fashion. 1% lidocaine was used for loca l anesthetic purposes. A small skin incision was made. A paracentesis catheter was guided into the peroneal cavity under son ographic guidance. A small amount of fluid was sent for requested lab studies. A large volume paracentesis was performed . The patient tolerated the procedure well. Patient was administered IV albumin per protocol following the procedure. IMPRESSION: Successful ultrasound-guided paracentesis. A total of 3.3 liters of ascitic fluid were d rained.
[2023-03-13 14:42] LABS: Body Fluid Source PERITONEAL; Color of fluid Yellow (COLORLESS)
[2023-03-13 14:43] LABS: Body Fluid WBC 51 /mm^3
[2023-03-13 15:14] LABS: Appearance CLEAR (CLEAR)
== END 2023-03-13 11:10 | disposition home or self-care (01) ==
LOC: DS 07:49
PROVIDERS: ATTEND Legal Medicine
DX: R18.8 Other ascites (principal); R14.0 Abdominal distension (gaseous)
CPT/HCPCS: 87070; 85025; 36415; 88108; 89050; 84157; 88305; 82728; 83540; 80053; 84466; 96365; 49083; P9047

== ENCOUNTER 2023-03-13 11:00 | Emergency (ER) | payer OTHER, BC ==
--- OUTSIDE RECORDS SUMMARY | 2023-03-13 11:17 | XMS REPORT | Continuity of Care Document ---
:1950 Author Organization [facility] t Address [address] [place] [address] [address] [place] [address] Care Team Providers Name Role Phone SAIRA ROGER Primary Care Physician Unavailable Jacek Ledesma Attending Clinician Unavailable BRANDI NIÑO Attending Clinician Unavailable YUDI PINEDA Attending Clinician Unavailable MARZENA Attending Clinician Unavailable SAMIRA SUNG Attending Clinician Unavailable AKASH LI Attending Clinician Unavailable MD BRITTNI LINK Attending Clinician Unavailable BRITTNI LINK Attending Clinician Unavailable CRISTOFER SMILEY Attending Clinician Unavailable MD CRISTOFER SMILEY Attending Clinician Unavailable CATRACHO THORNTON Attending Clinician Unavailable Catracho Thornton MD Attending Clinician Pob, [facility] Lab Main Attending Clinician Unavailable Dez Abrams MD Attending Clinician 1, [facility] Infusion Chair Attending Clinician Unavailable 1, [facility] Infusion Nurse Attending Clinician Unavailable Doctor Unassigned, [place] Attending Clinician Unavailable 2, Adc Lab Attending Clinician Unavailable MAVIS HERNANDEZ Attending Clinician Unavailable Mavis Hernandez NP Attending Clinician Khris RN, [place] Attending Clinician Unavailable Jade Beltran RN Attending Clinician [place] Tello Attending Clinician Fausto Zuñiga MD Attending Clinician FAUSTO ZUÑIGA Attending Clinician Unavailable MANISH ESPINOSA Attending Clinician Unavailable MARZENA Admitting Clinician Unavailable AKASH LI Admitting Clinician Unavailable MD BRITTNI LINK Admitting Clinician Unavailable MD CRISTOFER SMILEY Admitting Clinician Unavailable CATRACHO THORNTON Admitting Clinician Unavailable AMBER NUNEZ Admitting Clinician Unavailable Fausto Zuñiga MD Admitting Clinician FAUSTO ZUÑIGA Admitting Clinician Unavailable KARAN TORO Admitting Clinician Unavailable Payers Payer Name Policy Type Policy Number Effective Date Expiration Date S germaine Blue Cross Blue C1 [id number] 2003 [facility] [employer] [facility] [place] 00:00:00 - [facility] MEDICARE MB [id number] 2015 [facility] NOVITAS 00:00:00 - [facility] MEDICARE MB [id number] 2015 [facility] NOVITAS 00:00:00 - [facility] Blue Cross Blue C1 [id number] 2003 [facility] [employer] [place] 00:00:00 - [facility] MEDICARE MB [id number] 2015 [facility] NOVITAS 00:00:00 - [facility] Blue Cross Blue C1 [id number] 2003 [facility] [employer] [place] 00:00:00 - [facility] Blue Cross Blue C1 [id number] 2003 [facility] [employer] [place] 00:00:00 - [facility] MEDICARE MB [id number] 2015 [facility] NOVITAS 00:00:00 - [facility] MEDICARE MB [id number] 2015 [facility] NOVITAS 00:00:00 - [facility] Blue Cross Blue C1 [id number] 2003 [facility] [employer] [facility] [place] 00:00:00 - [facility] MEDICARE PART A [id number] 2015 \\T\\ B 00:00:00 BCBS FED SELECT [id number] 2003 00:00:00 Problems Condition Condition Condition Status Onset Resolution Last Treating Co mments Source Name Details Category Date Date Treatment Clinician Date Hypertensi Hypertensi Disease Active U nivers ve ve 4-07 [place] emergency [place] [facility] [place] Transient Transient Disease Active Uni vers confusion confusion 06 ity of 00:00: [place] [address] Medical [place] COPD COPD Disease Recurre 2018-[address] (chronic (chronic nce 0[facility] obstruct[facility] obstructiv 00:00: Me dical e e 00 [place] pulmonary pulmonary disease) disease) Cirrhosis Cirrhosis Disease Recurre 2018-[address] [facility] liver of liver nce 0-30 kes with with 00:00: Medical ascites ascites 00 [place] Shoulder Shoulder Disease Active Unive rs bursitis bursitis 04-24 ity of 00:00: [place] [address] Medical [place] Encounter Encounter Disease Active Overview: Univers for for 04-24 [place] ity of screening screening 00:00: [place] of [place] for for 00 note Medical osteoporos osteoporos might be Branch is is different from the original. ICD10 Diagnosis Term Talent Acquisition Program Manager Utility Psoriatic Psoriatic Disease Active 2009-11 Uni vers arthropath arthropath 2-16 it y of y y 00:00: [place] 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 - [facility] stage [id number] GERD Problem Common without Spirit esophagiti - [facility] Ascites Other Problem Common ascites [facility] [id number] LEE Problem Common (nonalcoho Spirit lic - [facility] steatohepa [facility] [id number] Essential Problem Comm on (primary) Spirit hypertensi - [facility] on [facility] [id number] Mixed Problem Common hyperlipid Spirit emia [facility] [id number] Gastric Problem Common polyp [facility] [id number] Portal Problem Common hypertensi Spirit on [facility] [id number] Solitary Problem Comm on lung Spirit nodule [facility] [id number] Psoriatic Problem Com mon arthritis [facility] [id number] Chest Problem Common congestion [facility] [id number] Other Problem Common obesity Spirit due to - [facility]I excess [facility] [id number] Cerebral Problem Commo n atheroscle Spirit rosis [facility] [id number] Non-season Problem Com mon al Spirit allergic - CHI rhinitis, 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 varices - CHI bleeding without [facility] [id number] Nasal Problem Common congestion [facility] [id number] Cough Problem Common [facility] [id number] Upper Problem Common respirator [facility] y tract - [facility] infection, [facility] [id number] Body mass Problem Com mon index Spirit [BMI] - [facility] 34.0-34.9, [facility] Allergies, Adverse Reactions, Alerts Allergy Allergy Status Severity Reaction(s) Onset Inactive Treating Comm ents Source Name Type Date Date Clinician No Known DA Active U [facility] Allergie 02-15 [place] s 00:00: [address] No Known DA Active U [facility] Allergie 02-15 [facility] 00:00: [address] NO KNOWN Drug Active Univers ALLERGIE Class ity of S [facility] Social History Social Habit Start Date Stop Date Quantity Comments Source History of [facility] - Tobacco Use [facility] History SDOH [facility] B[facility] Medical Sharla ter Exposure to Not sure University of SARS-CoV-2 [facility] (event) [place] Tobacco use and 2020-02-25 2020-02-25 Never used Universit y of exposure 00:00:00 00:00:00 [facility] Alcohol intake 2019-09-17 2019-09-17 [address] [facility] es 00:00:00 00:00:00 non-drinker of Medical Ce nter alcohol (finding) History SDOH 2019-09-14 2019-09-[address] [facility] [address] [facility] Alcohol Frequency 00:00:00 00:00:00 [facility] Assigned At [birth year] [facility] Smoking Status Start Date Stop Date Source Never Smoker [facility] Medications Ordered Filled Start Stop Current Ordering Indication Dosage Frequency Signature Comments Components Source Medication Medication Date Date Medication? Clinician (SIG) Name Name Augmentin Augmentin 2021- No 1{table Augmentin 500-125 MG 500-125 MG 05-21 t} 500-125 MG 00:00: 00:00 00 :00 Augmentin Augmentin 2021- No 1{table Augmentin 500-125 MG 500-125 MG 05-21 t} 500-125 MG 00:00: 00:00 00 :00 Levalbutero Levalbutero 2020-11 No Levalbuter l HCl 1.25 l HCl 1.25 0-21 ol HCl MG/3ML MG/3ML 00:00: 1.25 00 MG/3ML Levalbutero Levalbutero 2020-11 No Levalbuter l HCl 1.25 l HCl 1.25 0-21 ol HCl MG/3ML MG/3ML 00:00: 1.25 00 MG/3ML Levalbutero Levalbutero 2020-11 No Levalbuter l HCl 1.25 l HCl 1.25 0-21 ol HCl MG/3ML MG/3ML 00:00: 1.25 00 MG/3ML Levalbutero Levalbutero 2020-11 No l HCl 1.25 l HCl 1.25 0-21 MG/3ML MG/3ML 00:00: 00 Levalbutero Levalbutero 2020-11 No Levalbuter l HCl 1.25 l HCl 1.25 0-21 ol HCl MG/3ML MG/3ML 00:00: 1.25 00 MG/3ML Levalbutero Levalbutero 2020-11 No Levalbuter l HCl 1.25 l HCl 1.25 0-21 ol HCl MG/3ML MG/3ML 00:00: 1.25 00 MG/3ML albumin 2020- No [id number] 50g Univ ers (ALBUMINAR 05-27 ity of 25%) 25 % 14:30: 02:29 [place] injection 00 :00 Medical 50 g Branch albumin 2020- No [id number] 50g Univ ers (ALBUMINAR 05-27 ity of 25%) 25 % 14:30: 14:50 [place] injection 00 :00 Medical 50 g Branch albumin 2020- No [id number] 50g 50 g, IV Univers (ALBUMINAR 05-27 Infusion, ity of 25%) 25 % 14:30: 14:50 ONCE, 1 [place] injection [place] :[place] dose, Mon Medic al 50 g 05/27/21 at Branch 0930, 200 mL
Gabrielle cation: LARGE VOLUME PARACENTES IS IN CIRRHOSIS (>5L) albumin 2020- No [id number] 37.5g Uni vers (ALBUMINAR 05-02 ity of 25%) 25 % 15:11: 15:22 [place] injection 00 :00 Medical 37.5 g Branch albumin 2020- No [id number] 37.5g 37.5 g, IV Univers (ALBUMINAR 05-02 Infusion, ity of 25%) 25 % 15:11: 15:22 ONCE, 1 [place] injection 00 :[place] dose, Kiersten Medic al 37.5 g 05/02/21 at Branch 1015, 150 mL
Gabrielle cation: LARGE VOLUME PARACENTES IS IN CIRRHOSIS (>5L) albumin 2020- No [id number] 50g Univ ers (ALBUMINAR 03-28 ity of 25%) 25 % 15:51: 16:03 [place] injection 00 :00 Medical 50 g Branch albumin 2020- No [id number] 50g 50 g, IV Univers (ALBUMINAR 03-28 Infusion, ity of 25%) 25 % 15:51: 16:03 ONCE, 1 [place] injection [place] :[place] dose, Kiersten Medic al 50 g 03/28/21 at Branch 1100, 200 mL
Gabrielle cation: LARGE VOLUME PARACENTES IS IN CIRRHOSIS (>5L)
C omments: Ascites removal albumin 2020- No [id number] 12.5g Univ ers (ALBUMINAR 01-29 ity of 25%) 25 % 17:15: 17:24 [place] injection 00 :00 Medical 12.5 g Branch albumin 2020- No [id number] 12.5g 12.5 g, IV Univers (ALBUMINAR 01-29 Infusion, ity of 25%) 25 % 17:15: 17:24 Q5MIN, 3 Dimit[place] as injection 00 :00 doses, Medical 12.5 g First dose Branch on Thu01/29/21 at 1215, Last dose on Thu01/29/21 at 1225, 50 mL
Gabrielle cation: LARGE VOLUME PARACENTES IS IN CIRRHOSIS (>5L) albumin 2020- No 50g Univers (ALBUMINAR 01-03 ity of 25%) 25 % 19:30: 19:36 [place] injection 00 :00 Medical 50 g Branch albumin 2020- No 50g 50 g, IV Unive rs (ALBUMINAR 01-0318 Infusion, ity of 25%) 25 % 19:30: 19:36 ONCE, 1 [place] injection 00 :[place] dose, Kiersten Medic al 50 g 01/03/21 at Branch 1330, 200 mL
Gabrielle cation: LARGE VOLUME PARACENTES IS IN CIRRHOSIS (>5L) albumin 0 Yes IV Univers (ALBUMINAR 1-04 Infusion, ity of 25%) 25 % 19:31: PRN, [place] injection [address] [facility] 11/19/20 Branch at 1331, Until Discontinu ed albumin 2019-11- No IV Univers (ALBUMINAR 12-23 Infusion, ity of 25%) 25 % 19:56: 20:19 PRN, [place] injection 00 :00 Starting Medica l [facility] 10/22/20 at 1356, Until Discontinu ed lidocaine 2019-11- No PRN, Univers 1% (PF) 12-23 Starting ity of (XYLOCAINE) 19:54: 19:54 Mon [place] injection 00 :00 10/22/20 at [facility] janett 1354, Branch Until Discontinu ed, Routine hydralAZINE 2019- No 10mg 10 mg, Uni vers (APRESOLINE 02-24 Intravenou i ty of ) injection 13:00: 12:40 s, ONCE, 1 [place] 10 mg 00 :00 dose, Sat Medical 02/25/20 at Branch 0800, Routine metFORMIN 2020-0 Yes [id number] 500mg Take 1 Univers 500 mg 4-11 tablet by ity of tablet 00:00: mouth [address] [place] [address] ([facility]) [facility] daily with meals. metFORMIN 2020-0 Yes [id number] 500mg Take 1 Univers 500 mg 4-11 tablet by ity of tablet 00:00: mouth [address] [place] [address] ([facility]) [facility] daily with meals. metFORMIN 2020-0 Yes [id number] 500mg Take 1 Univers 500 mg 4-11 tablet by ity of tablet 00:00: mouth [place] ([facility]) [facility] times [place] daily with meals. metFORMIN 2020-0 Yes [id number] 500mg Take 1 Univers 500 mg 4-11 tablet by ity of tablet 00:00: mouth [place] ([facility]) [facility] times [place] daily with meals. metFORMIN 2020-0 Yes [id number] 500mg Take 1 Univers 500 mg 4-11 tablet by ity of tablet 00:00: mouth [place] ([facility]) [facility] times [place] daily with meals. metFORMIN 2020-0 Yes [id number] 500mg Take 1 Univers 500 mg 4-11 tablet by ity of tablet 00:00: mouth (two) Medical times Branch daily with meals. metFORMIN 2020-0 Yes [id number] 500mg Take 1 Univers 500 mg 4-11 tablet by ity of tablet 00:00: mouth (two) Medical times Branch daily with meals. metFORMIN 2020-0 Yes [id number] 500mg Take 1 Univers 500 mg 4-11 tablet by ity of tablet 00:00: mouth (two) Medical times Branch daily with meals. metFORMIN 2020-0 Yes [id number] 500mg Take 1 Univers 500 mg 4-11 tablet by ity of tablet 00:00: mouth (two) Medical times Branch daily with meals. metFORMIN 2020-0 Yes [id number] 500mg Take 1 Univers 500 mg 4-11 tablet by ity of tablet 00:00: mouth (two) Medical times Branch daily with meals. metFORMIN 2020-0 Yes [id number] 500mg Take 1 Univers 500 mg 4-11 tablet by ity of tablet 00:00: mouth (two) Medical times Branch daily with meals. metFORMIN 2020-0 Yes [id number] 500mg Take 1 Univers 500 mg 4-11 tablet by ity of tablet 00:00: mouth (two) Medical times Branch daily with meals. metFORMIN 2020-0 Yes [id number] 500mg Take 1 Univers 500 mg 4-11 tablet by ity of tablet 00:00: mouth (two) Medical times Branch daily with meals. metFORMIN 2020-0 Yes [id number] 500mg Take 1 Univers 500 mg 4-11 tablet by ity of tablet 00:00: mouth (two) Medical times Branch daily with meals. metFORMIN 2020-0 Yes [id number] 500mg Take 1 Univers 500 mg 4-11 tablet by ity of tablet 00:00: mouth (two) Medical times Branch daily with meals. metFORMIN 2020-0 Yes [id number] 500mg Take 1 Univers 500 mg 4-11 tablet by ity of tablet 00:00: mouth (two) Medical times Branch daily with meals. metFORMIN 2020-0 Yes [id number] 500mg Take 1 Univers 500 mg 4-11 tablet by ity of tablet 00:00: mouth (two) Medical times Branch daily with meals. metFORMIN 2020-0 Yes [id number] 500mg Take 1 Univers 500 mg 4-11 tablet by ity of tablet 00:00: mouth (two) Medical times Branch daily with meals. metFORMIN 2020-0 Yes [id number] 500mg Take 1 Univers 500 mg 4-11 tablet by ity of tablet 00:00: mouth (two) Medical times Branch daily with meals. metFORMIN 2020-0 Yes [id number] 500mg Take 1 Univers 500 mg 4-11 tablet by ity of tablet 00:00: mouth (two) Medical times Branch daily with meals. metFORMIN 2020-0 Yes [id number] 500mg Take 1 Univers 500 mg 4-11 tablet by ity of tablet 00:00: mouth (two) Medical times Branch daily with meals. metFORMIN 2020-0 Yes [id number] 500mg Take 1 Univers 500 mg 4-11 tablet by ity of tablet 00:00: mouth (two) Medical times Branch daily with meals. metFORMIN 2020-0 Yes [id number] 500mg Take 1 Univers 500 mg 4-11 tablet by ity of tablet 00:00: mouth () Medical times Branch daily with meals. metFORMIN 2020-0 Yes [id number] 500mg Take 1 Univers 500 mg 4-11 tablet by ity of tablet 00:00: mouth (two) Medical times Branch daily with meals. metFORMIN 2020-0 Yes [id number] 500mg Take 1 Univers 500 mg 4-11 tablet by ity of tablet 00:00: mouth (two) Medical times Branch daily with meals. metFORMIN 2020-0 Yes [id number] 500mg Take 1 Univers 500 mg 4-11 tablet by ity of tablet 00:00: mouth (two) Medical times Branch daily with meals. metFORMIN 2020-0 Yes [id number] 500mg Take 1 Univers 500 mg 4-11 tablet by ity of tablet 00:00: mouth (two) Medical times Branch daily with meals. cephALEXin 2020-0 2020- No [id number] 500mg Take 1 Univers 500 mg 4-11 -19 capsule by ity of capsule 00:00: 04:59 mouth 2 [place] 00 :00 (two) Medical times Branch daily for 7 days. amLODIPine 2020-0 2020- No [id number] 10mg Take 1 Univers 10 mg 4-09 05-10 9104 tablet by ity of tablet 00:00: 04:59 mouth [place] 00 :00 daily for Medical 30 days. Branch amLODIPine 2020-0 2020- No [id number] 10mg Take 1 Univers 10 mg 4- 9104 tablet by ity of tablet 00:00: 04:59 mouth [place] 00 :00 daily for Medical 30 days. Branch amLODIPine 2020-0 2020- No [id number] 10mg Take 1 Univers 10 mg 4- 9104 tablet by ity of tablet 00:00: 04:59 mouth [place] 00 :00 daily for Medical 30 days. Branch amLODIPine 2020-0 2020- No [id number] 10mg Take 1 Univers 10 mg 4- 9104 tablet by ity of tablet 00:00: 04:59 mouth [place] 00 :00 daily for Medical 30 days. Branch montelukast 2020-0 Yes 10mg Take 10 mg Univers 10 mg 4-08 by mouth ity of tablet 16:30: daily. [place] [address] Medical Branch cetirizine 2020-0 Yes 10mg Take 10 mg U nivers (ZYRTEC) 10 4-08 by mouth ity of mg tablet 16:30: daily. [place] [address] Medical Branch albuterol-i 2020-0 Yes 1{puff} Inhale 1 Univers pratropium 4-08 Puff as ity of 20-100 16:30: needed for [facility] [place] Wheezing Medi janett on inhaler or Branch Shortness of Breath. spironolact 2020-0 Yes 25mg Take 25 mg Univers one 25 mg 4-08 by mouth 2 ity of tablet 16:30: (two) [place] [address] times Medical daily. Branch gabapentin 2020-0 Yes 100mg Take 100 Un aileen 100 mg 4-08 mg by ity of capsule 16:30: mouth at [place] [address] bedtime. Medical Branch ferrous 2020-0 Yes 325mg Take 325 Unive rs sulfate 325 4-08 mg by ity of mg (65 mg 16:30: mouth 3 [place] iron) 32 (three) Medical tablet times [place] daily with meals. metoprolol 2020-0 Yes 100mg Take 100 Un aileen tartrate 4-08 mg by ity of (LOPRESSOR) 16:30: mouth 2 [place] as 50 mg 32 (two) Medical tablet times Branch daily. fexofenadin 2020-0 Yes 180mg Take 180 U nivers e (ERIKA) 4-08 mg by ity of 180 mg 16:30: mouth [place] tablet 32 daily. Medical Branch fluticasone 2020-0 Yes 2{spray Use 2 Un aileen (FLONASE) 4-08 } Sprays in ity o f 50 16:30: each [place] mcg/Actuati 32 nostril Medic al on nasal daily. Branch spray latanoprost 2020-0 Yes 1[drp] Place 1 U nivers (XALATAN) 4-08 Drop in ity of 0.005 % 16:30: both eyes [place] ophthalmic 32 every Medical drops evening. Branch secukinumab 2020-0 Yes 150mg inject 150 Univers (COSENTYX) 4-08 mg under ity o f 150 mg/mL 16:30: the skin [place] syringe 32 weekly. Medica l Branch omeprazole 2020-0 Yes 40mg Take 40 mg U nivers 40 mg 4-08 by mouth ity of capsule 16:30: daily. [place] [address] Medical Branch DULoxetine 2020-0 Yes 30mg Take 30 mg U nivers 30 mg 4-08 by mouth ity of capsule 16:30: daily. [place] [address] Medical Branch hydroCHLORO 2020-0 Yes 12.5mg Take 12.5 Univers thiazide 4-08 mg by ity of 12.5 mg 16:30: mouth [place] capsule 32 daily. Medical Branch montelukast 2020-0 Yes 10mg Take 10 mg Univers 10 mg 4-08 by mouth ity of tablet 16:30: daily. [place] [address] Medical Branch cetirizine 2020-0 Yes 10mg Take 10 mg U nivers (ZYRTEC) 10 4-08 by mouth ity of mg tablet 16:30: daily. [place] [address] Medical Branch albuterol-i 2020-0 Yes 1{puff} Inhale 1 Univers pratropium 4-08 Puff as ity of 20-100 16:30: needed for [place] mcg/actuati 32 Wheezing Medi janett on inhaler or Branch Shortness of Breath. spironolact 2020-0 Yes 25mg Take 25 mg Univers one 25 mg 4-08 by mouth 2 ity of tablet 16:30: (two) [place] 32 times Medical daily. Branch gabapentin 2020-0 Yes 100mg Take 100 Un aileen 100 mg 4-08 mg by ity of capsule 16:30: mouth at [place] [address] bedtime. Medical Branch ferrous 2020-0 Yes 325mg Take 325 Unive rs sulfate 325 4-08 mg by ity of mg (65 mg 16:30: mouth 3 [place] iron) 32 (three) Medical tablet times [place] daily with meals. metoprolol 2020-0 Yes 100mg Take 100 Un aileen tartrate 4-08 mg by ity of (LOPRESSOR) 16:30: mouth 2 [place] as 50 mg 32 (two) Medical tablet times [place] daily. fexofenadin 2020-0 Yes 180mg Take 180 U nivers e (ERIKA) 4-08 mg by ity of 180 mg 16:30: mouth [place] tablet 32 daily. Medical Branch fluticasone 2020-0 Yes 2{spray Use 2 Un aileen (FLONASE) 4-08 } Sprays in ity o f 50 16:30: each [place] mcg/Actuati 32 nostril Medic al on nasal daily. Branch spray latanoprost 2020-0 Yes 1[drp] Place 1 U nivers (XALATAN) 4-08 Drop in ity of 0.005 % 16:30: both eyes [place] ophthalmic 32 every Medical drops evening. Branch secukinumab 2019-0 Yes 150mg inject 150 Univers (COSENTYX) 4-08 mg under ity o f 150 mg/mL 16:30: the [place] syringe 32 weekly. Medica l Branch omeprazole 2020-0 Yes 40mg Take 40 mg U nivers 40 mg 4-08 by mouth ity of capsule 16:30: daily. [address] DULoxetine 2020-0 Yes 30mg Take 30 mg U nivers 30 mg 4-08 by mouth ity of capsule 16:30: daily. [address] Branch hydroCHLORO 2020-0 Yes 12.5mg Take 12.5 Univers thiazide 4-08 mg by ity of 12.5 mg 16:30: mouth [place] capsule 32 daily. Medical Branch montelukast 2020-0 Yes 10mg Take 10 mg Univers 10 mg 4-08 by mouth ity of tablet 16:30: daily. [address] cetirizine 2020-0 Yes 10mg Take 10 mg U nivers (ZYRTEC) 10 4-08 by mouth ity of mg tablet 16:30: daily. [place] [address] Medical Branch albuterol-i 2020-0 Yes 1{puff} Inhale 1 Univers pratropium 4-08 Puff as ity of 20-100 16:30: needed for [place] mcg/actuati 32 Wheezing Medi janett on inhaler or Branch Shortness of Breath. spironolact 2020-0 Yes 25mg Take 25 mg Univers one 25 mg 4-08 by mouth 2 ity of tablet 16:30: (two) [place] 32 times Medical daily. Branch gabapentin 2020-0 Yes 100mg Take 100 Un aileen 100 mg 4-08 mg by ity of capsule 16:30: mouth at [place] [address] bedtime. Medical Branch ferrous 2020-0 Yes 325mg Take 325 Unive rs sulfate 325 4-08 mg by ity of mg (65 mg 16:30: mouth 3 [place] iron) 32 (three) Medical tablet times [place] daily with meals. metoprolol 2020-0 Yes 100mg Take 100 Un aileen tartrate 4-08 mg by ity of (LOPRESSOR) 16:30: mouth 2 [place] as 50 mg 32 (two) Medical tablet times [place] daily. fexofenadin 2020-0 Yes 180mg Take 180 U nivers e (ERIKA) 4-08 mg by ity of 180 mg 16:30: mouth [place] tablet 32 daily. Medical Branch fluticasone 2020-0 Yes 2{spray Use 2 Un aileen (FLONASE) 4-08 } Sprays in ity o f 50 16:30: each [place] mcg/Actuati 32 nostril Medic al on nasal daily. Branch spray latanoprost 2020-0 Yes 1[drp] Place 1 U nivers (XALATAN) 4-08 Drop in ity of 0.005 % 16:30: both eyes [place] ophthalmic 32 every Medical drops evening. Branch secukinumab 2020-0 Yes 150mg inject 150 Univers (COSENTYX) 4-08 mg under ity o f 150 mg/mL 16:30: the skin [place] syringe 32 weekly. Medica l Branch omeprazole 2020-0 Yes 40mg Take 40 mg U nivers 40 mg 4-08 by mouth ity of capsule 16:30: daily. [place] [address] Medical Branch DULoxetine 2020-0 Yes 30mg Take 30 mg U nivers 30 mg 4-08 by mouth ity of capsule 16:30: daily. [place] [address] Medical Branch hydroCHLORO 2020-0 Yes 12.5mg Take 12.5 Univers thiazide 4-08 mg by ity of 12.5 mg 16:30: mouth [place] capsule 32 daily. [facility] montelukast 2020-0 Yes 10mg Take 10 mg [facility] 10 mg 4-08 by mouth ity of tablet 16:30: daily. [place] [address] [facility] Branch cetirizine 2020-0 Yes 10mg Take 10 mg U nivers (ZYRTEC) 10 4-08 by mouth ity of mg tablet 16:30: daily. [place] [address] [facility] Branch albuterol-i 2020-0 Yes 1{puff} Inhale 1 [facility] pratropium 4-08 Puff as ity of 20-100 16:30: needed for [place] mcg/actuati 32 Wheezing Medi janett on inhaler or Branch Shortness of Breath. spironolact 2020-0 Yes 25mg Take 25 mg [facility] one 25 mg 4-08 by mouth 2 ity of tablet 16:30: (two) [place] 32 times Medical daily. Branch gabapentin 2020-0 Yes 100mg Take 100 Un [facility] 100 mg 4-08 mg by ity of capsule 16:30: mouth at [place] [address] bedtime. Medical Branch ferrous 2020-0 Yes 325mg Take 325 Unive rs sulfate 325 4-08 mg by ity of mg (65 mg 16:30: mouth 3 [place] iron) 32 (three) Medical tablet times Branch daily with meals. metoprolol 2020-0 Yes 100mg Take 100 Un [place] tartrate 4-08 mg by ity of (LOPRESSOR) 16:30: mouth 2 [place] 50 mg 32 (two) Medical tablet times Branch daily. fexofenadin 2020-0 Yes 180mg Take 180 U nivers e (ERIKA) 4-08 mg by ity of 180 mg 16:30: mouth [place] tablet 32 daily. Medical Branch fluticasone 2020-0 Yes 2{spray Use 2 Un [facility]en (FLONASE) 4-08 } Sprays in ity o f 50 16:30: each [place] mcg/Actuati 32 nostril Medic al on nasal daily. Branch spray latanoprost 2020-0 Yes 1[drp] Place 1 U nivers (XALATAN) 4-08 Drop in ity of 0.005 % 16:30: both eyes [place] ophthalmic 32 every Medical drops evening. Branch secukinumab 2020-0 Yes 150mg inject 150 [facility] (COSENTYX) 4-08 mg under ity o f 150 mg/mL 16:30: [place] skin [place] syringe 32 weekly. Medica l Branch omeprazole 2020-0 Yes 40mg Take 40 mg [facility] n[facility] 40 mg 4-08 by mouth ity of capsule 16:30: daily. [place] [address] [facility] DULoxetine 2020-0 Yes 30mg Take 30 mg [facility] nivers 30 mg 4-08 by mouth ity of capsule 16:30: daily. [place] [address] [facility] Branch hydroCHLORO 2020-0 Yes 12.5mg Take 12.5 [facility] thiazide 4-08 mg by ity of 12.5 mg 16:30: mouth [place] capsule 32 daily. [facility] Branch montelukast 2020-0 Yes 10mg Take 10 mg [facility] 10 mg 4-08 by mouth ity of tablet 16:30: daily. [place] [address] [facility] Branch cetirizine 2020-0 Yes 10mg Take 10 mg U nivers (ZYRTEC) 10 4-08 by mouth ity of mg tablet 16:30: daily. [place] [address] [facility] Branch albuterol-i 2020-0 Yes 1{puff} Inhale 1 [facility] pratropium 4-08 Puff as ity of 20-100 16:30: needed for [place] mcg/actuati 32 Wheezing Medi janett on inhaler or Branch Shortness of Breath. spironolact 2020-0 Yes 25mg Take 25 mg [facility] one 25 mg 4-08 by mouth 2 ity of tablet 16:30: (two) [place] [address] times Medical daily. Branch gabapentin 2020-0 Yes 100mg Take 100 Un [place] 100 mg 4-08 mg by ity of capsule 16:30: mouth at [place] [address] bedtime. Medical Branch ferrous 2020-0 Yes 325mg Take 325 Unive rs sulfate 325 4-08 mg by ity of mg (65 mg 16:30: mouth 3 [place] iron) 32 (three) Medical tablet times [place] daily with meals. metoprolol 2020-0 Yes 100mg Take 100 Un [place] tartrate 4-08 mg by ity of (LOPRESSOR) 16:30: mouth 2 [place] 50 mg 32 (two) Medical tablet times Branch daily. fexofenadin 2020-0 Yes 180mg Take 180 U nivers e (ERIKA) 4-08 mg by ity of 180 mg 16:30: mouth [place] tablet 32 daily. Medical Branch fluticasone 2020-0 Yes 2{spray Use 2 Un [facility] (FLONASE) 4-08 } Sprays in ity o f 50 16:30: each [place] mcg/Actuati 32 nostril Medic al on nasal daily. Branch spray latanoprost 2020-0 Yes 1[drp] Place 1 [facility] nivers (XALATAN) 4-08 Drop in ity of 0.005 % 16:30: both eyes [place] ophthalmic 32 every Medical drops evening. Branch secukinumab 2020-0 Yes 150mg inject 150 [facility] (COSENTYX) 4-08 mg under ity o f 150 mg/mL 16:30: [place] skin [place] syringe 32 weekly. Medica l Branch omeprazole 2020-0 Yes 40mg Take 40 mg [facility] n[facility] 40 mg 4-08 by mouth ity of capsule 16:30: daily. [place] [address] [facility] Branch DULoxetine 2020-0 Yes 30mg Take 30 mg [facility] nivers 30 mg 4-08 by mouth ity of capsule 16:30: daily. [place] [address] [facility] Branch hydroCHLORO 2020-0 Yes 12.5mg Take 12.5 [facility] thiazide 4-08 mg by ity of 12.5 mg 16:30: mouth [place] capsule 32 daily. Medical Branch montelukast 2020-0 Yes 10mg Take 10 mg [facility] 10 mg 4-08 by mouth ity of tablet 16:30: daily. [place] [address] [facility] Branch cetirizine 2020-0 Yes 10mg Take 10 mg U nivers (ZYRTEC) 10 4-08 by mouth ity of mg tablet 16:30: daily. [place] [address] [facility] Branch albuterol-i 2020-0 Yes 1{puff} Inhale 1 [facility] pratropium 4-08 Puff as ity of 20-100 16:30: needed for [place] mcg/actuati 32 Wheezing Medi janett on inhaler or Branch Shortness of Breath. spironolact 2020-0 Yes 25mg Take 25 mg [facility] one 25 mg 4-08 by mouth 2 ity of tablet 16:30: (two) [place] [address] times Medical daily. Branch gabapentin 2020-0 Yes 100mg Take 100 Un [place] 100 mg 4-08 mg by ity of capsule 16:30: mouth at [place] [address] bedtime. Medical Branch ferrous 2020-0 Yes 325mg Take 325 Unive rs sulfate 325 4-08 mg by ity of mg (65 mg 16:30: mouth 3 [place] iron) 32 (three) Medical tablet times [place] daily with meals. metoprolol 2020-0 Yes 100mg Take 100 Un [place] tartrate 4-08 mg by ity of (LOPRESSOR) 16:30: mouth 2 [place] 50 mg 32 (two) Medical tablet times Branch daily. fexofenadin 2020-0 Yes 180mg Take 180 U nivers e (ERIKA) 4-08 mg by ity of 180 mg 16:30: mouth [place] tablet 32 daily. Medical Branch fluticasone 2020-0 Yes 2{spray Use 2 Un [facility] (FLONASE) 4-08 } Sprays in ity o f 50 16:30: each [place] mcg/Actuati 32 nostril Medic al on nasal daily. Branch spray latanoprost 2019-0 Yes 1[drp] Place 1 U nivers (XALATAN) 4-08 Drop in ity of 0.005 % 16:30: both eyes [place] ophthalmic 32 every Medical drops evening. Branch secukinumab 2019-0 Yes 150mg inject 150 [facility] (COSENTYX) 4-08 mg under ity o f 150 mg/mL 16:30: [place] skin [place] syringe 32 weekly. Medica l Branch omeprazole 2019-0 Yes 40mg Take 40 mg U nivers 40 mg 4-08 by mouth ity of capsule 16:30: daily. [place] [address] [facility] Branch DULoxetine 2020-0 Yes 30mg Take 30 mg [facility] nivers 30 mg 4-08 by mouth ity of capsule 16:30: daily. [address] Branch hydroCHLORO 2020-0 Yes 12.5mg Take 12.5 [facility] thiazide 4-08 mg by ity of 12.5 mg 16:30: mouth [place] capsule 32 daily. Medical Branch montelukast 2020-0 Yes 10mg Take 10 mg [facility] 10 mg 4-08 by mouth ity of tablet 16:30: daily. [address] Branch cetirizine 2020-0 Yes 10mg Take 10 mg U nivers (ZYRTEC) 10 4-08 by mouth ity of mg tablet 16:30: daily. [place] [address] [facility] Branch albuterol-i 2020-0 Yes 1{puff} Inhale 1 [facility] pratropium 4-08 Puff as ity of 20-100 16:30: needed for [place] mcg/actuati 32 Wheezing Medi janett on inhaler or Branch Shortness of Breath. spironolact 2020-0 Yes 25mg Take 25 mg [facility] one 25 mg 4-08 by mouth 2 ity of tablet 16:30: (two) [place] 32 times Medical daily. Branch gabapentin 2020-0 Yes 100mg Take 100 Un [facility] 100 mg 4-08 mg by ity of capsule 16:30: mouth at [place] [address] bedtime. Medical Branch ferrous 2020-0 Yes 325mg Take 325 Unive rs sulfate 325 4-08 mg by ity of mg (65 mg 16:30: mouth 3 [place] iron) 32 (three) Medical tablet times [place] daily with meals. metoprolol 2020-0 Yes 100mg Take 100 Un [place] tartrate 4-08 mg by ity of (LOPRESSOR) 16:30: mouth 2 [place] 50 mg 32 (two) Medical tablet times [place] daily. fexofenadin 2020-0 Yes 180mg Take 180 U nivers e (ERIKA) 4-08 mg by ity of 180 mg 16:30: mouth [place] tablet 32 daily. Medical Branch fluticasone 2020-0 Yes 2{spray Use 2 Un [facility] (FLONASE) 4-08 } Sprays in ity o f 50 16:30: each [place] mcg/Actuati 32 nostril Medic al on nasal daily. Branch spray latanoprost 2019-0 Yes 1[drp] Place 1 U nivers (XALATAN) 4-08 Drop in ity of 0.005 % 16:30: both eyes [place] ophthalmic 32 every Medical drops evening. Branch secukinumab 2020-0 Yes 150mg inject 150 [facility] (COSENTYX) 4-08 mg under ity o f 150 mg/mL 16:30: [place] skin [place] syringe 32 weekly. Medica l Branch omeprazole 2020-0 Yes 40mg Take 40 mg U nivers 40 mg 4-08 by mouth ity of capsule 16:30: daily. [place] [address] [facility] Branch DULoxetine 2020-0 Yes 30mg Take 30 mg U nivers 30 mg 4-08 by mouth ity of capsule 16:30: daily. [place] [address] [facility] Branch hydroCHLORO 2020-0 Yes 12.5mg Take 12.5 [facility] thiazide 4-08 mg by ity of 12.5 mg 16:30: mouth [place] capsule 32 daily. Medical Branch montelukast 2020-0 Yes 10mg Take 10 mg [facility] 10 mg 4-08 by mouth ity of tablet 16:30: daily. [place] [address] [facility] Branch cetirizine 2020-0 Yes 10mg Take 10 mg [facility] nivers (ZYRTEC) 10 4-08 by mouth ity of mg tablet 16:30: daily. [place] [address] [facility] Branch albuterol-i 2020-0 Yes 1{puff} Inhale 1 [facility] pratropium 4-08 Puff as ity of 20-100 16:30: needed for [place] mcg/actuati 32 Wheezing Medi janett on inhaler or Branch Shortness of Breath. spironolact 2020-0 Yes 25mg Take 25 mg [facility] one 25 mg 4-08 by mouth 2 ity of tablet 16:30: (two) [place] [address] times Medical daily. Branch gabapentin 2020-0 Yes 100mg Take 100 Un [place] 100 mg 4-08 mg by ity of capsule 16:30: mouth at [place] [address] bedtime. Medical Branch ferrous 2020-0 Yes 325mg Take 325 Unive rs sulfate 325 4-08 mg by ity of mg (65 mg 16:30: mouth 3 [place] iron) 32 (three) Medical tablet times Branch daily with meals. metoprolol 2020-0 Yes 100mg Take 100 Un [place] tartrate 4-08 mg by ity of (LOPRESSOR) 16:30: mouth 2 [place] 50 mg 32 (two) Medical tablet times Branch daily. fexofenadin 2020-0 Yes 180mg Take 180 U nivers e (ERIKA) 4-08 mg by ity of 180 mg 16:30: mouth [place] tablet 32 daily. Medical Branch fluticasone 2020-0 Yes 2{spray Use 2 Un [facility] (FLONASE) 4-08 } Sprays in ity o f 50 16:30: each [place] mcg/Actuati 32 nostril Medic al on nasal daily. Branch spray latanoprost 2020-0 Yes 1[drp] Place 1 U nivers (XALATAN) 4-08 Drop in ity of 0.005 % 16:30: both eyes [place] ophthalmic 32 every Medical drops evening. Branch secukinumab 2020-0 Yes 150mg inject 150 [facility] (COSENTYX) 4-08 mg under ity o f 150 mg/mL 16:30: the skin [place] syringe 32 weekly. Medica l Branch omeprazole 2020-0 Yes 40mg Take 40 mg U nivers 40 mg 4-08 by mouth ity of capsule 16:30: daily. [place] [address] [facility] Branch DULoxetine 2020-0 Yes 30mg Take 30 mg U nivers 30 mg 4-08 by mouth ity of capsule 16:30: daily. [place] [address] [facility] Branch hydroCHLORO 2020-0 Yes 12.5mg Take 12.5 [facility] thiazide 4-08 mg by ity of 12.5 mg 16:30: mouth [place] capsule 32 daily. Medical Branch montelukast 2020-0 Yes 10mg Take 10 mg [facility] 10 mg 4-08 by mouth ity of tablet 16:30: daily. [place] [address] [facility] Branch cetirizine 2020-0 Yes 10mg Take 10 mg U nivers (ZYRTEC) 10 4-08 by mouth ity of mg tablet 16:30: daily. [place] [address] [facility] Branch albuterol-i 2020-0 Yes 1{puff} Inhale 1 [facility] pratropium 4-08 Puff as ity of 20-100 16:30: needed for [place] mcg/actuati 32 Wheezing Medi janett on inhaler or Branch Shortness of Breath. spironolact 2020-0 Yes 25mg Take 25 mg [facility] one 25 mg 4-08 by mouth 2 ity of tablet 16:30: (two) [place] [address] times Medical daily. Branch gabapentin 2020-0 Yes 100mg Take 100 Un [place] 100 mg 4-08 mg by ity of capsule 16:30: mouth at [place] [address] bedtime. Medical Branch ferrous 2020-0 Yes 325mg Take 325 Unive rs sulfate 325 4-08 mg by ity of mg (65 mg 16:30: mouth 3 [place] iron) 32 (three) Medical tablet times Branch daily with meals. metoprolol 2020-0 Yes 100mg Take 100 Un [place] tartrate 4-08 mg by ity of (LOPRESSOR) 16:30: mouth 2 [place] 50 mg 32 (two) Medical tablet times Branch daily. fexofenadin 2020-0 Yes 180mg Take 180 U nivers e (ERIKA) 4-08 mg by ity of 180 mg 16:30: mouth [place] tablet 32 daily. Medical Branch fluticasone 2020-0 Yes 2{spray Use 2 Un [facility] (FLONASE) 4-08 } Sprays in ity o f 50 16:30: each [place] mcg/Actuati 32 nostril Medic al on nasal daily. Branch spray latanoprost 2020-0 Yes 1[drp] Place 1 U nivers (XALATAN) 4-08 Drop in ity of 0.005 % 16:30: both eyes [place] ophthalmic every Medical drops evening. Branch secukinumab 2020-0 Yes 150mg inject 150 [facility] (COSENTYX) 4-08 mg under ity o f 150 mg/mL 16:30: the skin [place] syringe 32 weekly. Medica l Branch omeprazole 2020-0 Yes 40mg Take 40 mg U nivers 40 mg 4-08 by mouth ity of capsule 16:30: daily. [place] [address] [facility] Branch DULoxetine 2020-0 Yes 30mg Take 30 mg U nivers 30 mg 4-08 by mouth ity of capsule 16:30: daily. [place] [address] [facility] Branch hydroCHLORO 2020-0 Yes 12.5mg Take 12.5 [facility] thiazide 4-08 mg by ity of 12.5 mg 16:30: mouth [place] capsule 32 daily. Medical Branch montelukast 2020-0 Yes 10mg Take 10 mg [facility] 10 mg 4-08 by mouth ity of tablet 16:30: daily. [place] [address] [facility] Branch cetirizine 2020-0 Yes 10mg Take 10 mg U nivers (ZYRTEC) 10 4-08 by mouth ity of mg tablet 16:30: daily. [place] [address] Medical Branch albuterol-i 2020-0 Yes 1{puff} Inhale 1 [facility] pratropium 4-08 Puff as ity of 20-100 16:30: needed for [facility]/actuati 32 Wheezing Medi janett on inhaler or Branch Shortness of Breath. spironolact 2020-0 Yes 25mg Take 25 mg [facility] one 25 mg 4-08 by mouth 2 ity of tablet 16:30: (two) [place] [address] times Medical daily. Branch gabapentin 2020-0 Yes 100mg Take 100 Un [place] 100 mg 4-08 mg by ity of capsule 16:30: mouth at [place] [address] bedtime. Medical Branch ferrous 2020-0 Yes 325mg Take 325 Unive rs sulfate 325 4-08 mg by ity of mg (65 mg 16:30: mouth 3 [place] iron) (three) Medical tablet times Branch daily with meals. metoprolol 2020-0 Yes 100mg Take 100 Un [place] tartrate 4-08 mg by ity of (LOPRESSOR) 16:30: mouth 2 [place] 50 mg 32 (two) Medical tablet times Branch daily. fexofenadin 2020-0 Yes 180mg Take 180 U nivers e (ERIKA) 4-08 mg by ity of 180 mg 16:30: mouth [place] tablet 32 daily. Medical Branch fluticasone 2020-0 Yes 2{spray Use 2 Un [facility] (FLONASE) 4-08 } Sprays in ity o f 50 16:30: each [place] mcg/Actuati 32 nostril Medic al on nasal daily. Branch spray latanoprost 2020-0 Yes 1[drp] Place 1 U nivers (XALATAN) 4-08 Drop in ity of 0.005 % 16:30: both eyes [place] ophthalmic 32 every Medical drops evening. Branch secukinumab 2019-0 Yes 150mg inject 150 [facility] (COSENTYX) 4-08 mg under ity o f 150 mg/mL 16:30: the skin [place] syringe 32 weekly. Medica l Branch omeprazole 2020-0 Yes 40mg Take 40 mg U nivers 40 mg 4-08 by mouth ity of capsule 16:30: daily. [address] Branch DULoxetine 2020-0 Yes 30mg Take 30 mg U nivers 30 mg 4-08 by mouth ity of capsule 16:30: daily. [address] Branch hydroCHLORO 2020-0 Yes 12.5mg Take 12.5 [facility] thiazide 4-08 mg by ity of 12.5 mg 16:30: mouth [place] capsule 32 daily. [facility] Branch montelukast 2020-0 Yes 10mg Take 10 mg [facility] 10 mg 4-08 by mouth ity of tablet 16:30: daily. [address] Branch cetirizine 2020-0 Yes 10mg Take 10 mg U nivers (ZYRTEC) 10 4-08 by mouth ity of mg tablet 16:30: daily. [address] Branch albuterol-i 2020-0 Yes 1{puff} Inhale 1 [facility] pratropium 4-08 Puff as ity of 20-100 16:30: needed for [place] mcg/actuati 32 Wheezing Medi janett on inhaler or Branch Shortness of Breath. spironolact 2020-0 Yes 25mg Take 25 mg [facility] one 25 mg 4-08 by mouth 2 ity of tablet 16:30: (two) [place] 32 times Medical daily. Branch gabapentin 2020-0 Yes 100mg Take 100 Un [facility] 100 mg 4-08 mg by ity of capsule 16:30: mouth at [place] [address] bedtime. Medical Branch ferrous 2020-0 Yes 325mg Take 325 Unive rs sulfate 325 4-08 mg by ity of mg (65 mg 16:30: mouth 3 [place] iron) 32 (three) Medical tablet times [place] daily with meals. metoprolol 2020-0 Yes 100mg Take 100 Un [place] tartrate 4-08 mg by ity of (LOPRESSOR) 16:30: mouth 2 [place] as 50 mg 32 (two) Medical tablet times [place] daily. fexofenadin 2020-0 Yes 180mg Take 180 U nivers e (ERIKA) 4-08 mg by ity of 180 mg 16:30: mouth [place] tablet 32 daily. Medical Branch fluticasone 2020-0 Yes 2{spray Use 2 Un [facility] (FLONASE) 4-08 } Sprays in ity o f 50 16:30: each [place] mcg/Actuati nostril Medic al on nasal daily. Branch spray latanoprost 2020-0 Yes 1[drp] Place 1 U nivers (XALATAN) 4-08 Drop in ity of 0.005 % 16:30: both eyes [place] ophthalmic 32 every Medical drops evening. Branch secukinumab 2019-0 Yes 150mg inject 150 [facility] (COSENTYX) 4-08 mg under ity o f 150 mg/mL 16:30: the skin [place] syringe 32 weekly. Medica l Branch omeprazole 2020-0 Yes 40mg Take 40 mg U nivers 40 mg 4-08 by mouth ity of capsule 16:30: daily. [place] [address] Medical Branch DULoxetine 2020-0 Yes 30mg Take 30 mg U nivers 30 mg 4-08 by mouth ity of capsule 16:30: daily. [place] [address] Medical Branch hydroCHLORO 2020-0 Yes 12.5mg Take 12.5 [facility] thiazide 4-08 mg by ity of 12.5 mg 16:30: mouth [place] capsule 32 daily. Medical Branch montelukast 2020-0 Yes 10mg Take 10 mg [facility] 10 mg 4-08 by mouth ity of tablet 16:30: daily. [place] [address] Medical Branch cetirizine 2020-0 Yes 10mg Take 10 mg U nivers (ZYRTEC) 10 4-08 by mouth ity of mg tablet 16:30: daily. [place] [address] Medical Branch albuterol-i 2020-0 Yes 1{puff} Inhale 1 [facility] pratropium 4-08 Puff as ity of 20-100 16:30: needed for [place] mcg/actuati 32 Wheezing Medi janett on inhaler or Branch Shortness of Breath. spironolact 2020-0 Yes 25mg Take 25 mg [facility] one 25 mg 4-08 by mouth 2 ity of tablet 16:30: (two) [place] 32 times Medical daily. Branch gabapentin 2020-0 Yes 100mg Take 100 Un [place] 100 mg 4-08 mg by ity of capsule 16:30: mouth at [place] [address] bedtime. Medical Branch ferrous 2020-0 Yes 325mg Take 325 Unive rs sulfate 325 4-08 mg by ity of mg (65 mg 16:30: mouth 3 [place] iron) 32 (three) Medical tablet times [place] daily with meals. metoprolol 2020-0 Yes 100mg Take 100 Un [place] tartrate 4-08 mg by ity of (LOPRESSOR) 16:30: mouth 2 [place] as 50 mg 32 (two) Medical tablet times [place] daily. fexofenadin 2020-0 Yes 180mg Take 180 U nivers e (ERIKA) 4-08 mg by ity of 180 mg 16:30: mouth [place] tablet 32 daily. Medical Branch fluticasone 2020-0 Yes 2{spray Use 2 Un [place] (FLONASE) 4-08 } Sprays in ity o f 50 16:30: each [place] mcg/Actuati 32 nostril Medic al on nasal daily. Branch spray latanoprost 2020-0 Yes 1[drp] Place 1 U nivers (XALATAN) 4-08 Drop in ity of 0.005 % 16:30: both eyes [place] ophthalmic 32 every Medical drops evening. Branch secukinumab 2020-0 Yes 150mg inject 150 [facility] (COSENTYX) 4-08 mg under ity o f 150 mg/mL 16:30: the skin [place] syringe 32 weekly. Medica l Branch omeprazole 2020-0 Yes 40mg Take 40 mg U nivers 40 mg 4-08 by mouth ity of capsule 16:30: daily. [place] 32 Medical Branch DULoxetine 2020-0 Yes 30mg Take 30 mg U nivers 30 mg 4-08 by mouth ity of capsule 16:30: daily. [address] Branch hydroCHLORO 2020-0 Yes 12.5mg Take 12.5 [facility] thiazide 4-08 mg by ity of 12.5 mg 16:30: mouth [place] capsule 32 daily. Medical Branch montelukast 2020-0 Yes 10mg Take 10 mg [facility] 10 mg 4-08 by mouth ity of tablet 16:30: daily. [address] Branch cetirizine 2020-0 Yes 10mg Take 10 mg U nivers (ZYRTEC) 10 4-08 by mouth ity of mg tablet 16:30: daily. [address] Branch albuterol-i 2020-0 Yes 1{puff} Inhale 1 [facility] pratropium 4-08 Puff as ity of 20-100 16:30: needed for [place] mcg/actuati 32 Wheezing Medi janett on inhaler or Branch Shortness of Breath. spironolact 2020-0 Yes 25mg Take 25 mg [facility] one 25 mg 4-08 by mouth 2 ity of tablet 16:30: (two) [place] 32 times Medical daily. Branch gabapentin 2020-0 Yes 100mg Take 100 Un [facility] 100 mg 4-08 mg by ity of capsule 16:30: mouth at [place] [address] bedtime. Medical Branch ferrous 2020-0 Yes 325mg Take 325 Unive rs sulfate 325 4-08 mg by ity of mg (65 mg 16:30: mouth 3 [place] iron) 32 (three) Medical tablet times [place] daily with meals. metoprolol 2020-0 Yes 100mg Take 100 Un [place] tartrate 4-08 mg by ity of (LOPRESSOR) 16:30: mouth 2 [place] 50 mg 32 (two) Medical tablet times Branch daily. fexofenadin 2020-0 Yes 180mg Take 180 U nivers e (ERIKA) 4-08 mg by ity of 180 mg 16:30: mouth [place] tablet 32 daily. Medical Branch fluticasone 2020-0 Yes 2{spray Use 2 Un [facility] (FLONASE) 4-08 } Sprays in ity o f 50 16:30: each [place] mcg/Actuati 32 nostril Medic al on nasal daily. Branch spray latanoprost 2020-0 Yes 1[drp] Place 1 U nivers (XALATAN) 4-08 Drop in ity of 0.005 % 16:30: both eyes [place] ophthalmic 32 every Medical drops evening. Branch secukinumab 2020-0 Yes 150mg inject 150 [facility] (COSENTYX) 4-08 mg under ity o f 150 mg/mL 16:30: the skin [place] syringe 32 weekly. Medica l Branch omeprazole 2020-0 Yes 40mg Take 40 mg U nivers 40 mg 4-08 by mouth ity of capsule 16:30: daily. [place] [address] Medical Branch DULoxetine 2020-0 Yes 30mg Take 30 mg U nivers 30 mg 4-08 by mouth ity of capsule 16:30: daily. [address] Branch hydroCHLORO 2020-0 Yes 12.5mg Take 12.5 [facility] thiazide 4-08 mg by ity of 12.5 mg 16:30: mouth [place] capsule 32 daily. Medical Branch montelukast 2020-0 Yes 10mg Take 10 mg [facility] 10 mg 4-08 by mouth ity of tablet 16:30: daily. [place] [address] Medical Branch cetirizine 2020-0 Yes 10mg Take 10 mg U nivers (ZYRTEC) 10 4-08 by mouth ity of mg tablet 16:30: daily. [place] [address] Medical Branch albuterol-i 2020-0 Yes 1{puff} Inhale 1 [facility] pratropium 4-08 Puff as ity of 20-100 16:30: [facility] Wheezing Medi janett on inhaler or Branch Shortness of Breath. spironolact 2020-0 Yes 25mg Take 25 mg [facility] one 25 mg 4-08 by mouth 2 ity of tablet 16:30: (two) [place] 32 times Medical daily. Branch gabapentin 2020-0 Yes 100mg Take 100 Un [place] 100 mg 4-08 mg by ity of capsule 16:30: mouth at [place] [address] bedtime. Medical Branch ferrous 2020-0 Yes 325mg Take 325 Unive rs sulfate 325 4-08 mg by ity of mg (65 mg 16:30: mouth 3 [place] iron) 32 (three) Medical tablet times [place] daily with meals. metoprolol 2020-0 Yes 100mg Take 100 Un [place] tartrate 4-08 mg by ity of (LOPRESSOR) 16:30: mouth 2 [place] 50 mg 32 (two) Medical tablet times Branch daily. fexofenadin 2020-0 Yes 180mg Take 180 U nivers e (ERIKA) 4-08 mg by ity of 180 mg 16:30: mouth [place] tablet 32 daily. Medical Branch fluticasone 2020-0 Yes 2{spray Use 2 Un [place] (FLONASE) 4-08 } Sprays in ity o f 50 16:30: each [place] mcg/Actuati 32 nostril Medic al on nasal daily. Branch spray latanoprost 2020-0 Yes 1[drp] Place 1 U nivers (XALATAN) 4-08 Drop in ity of 0.005 % 16:30: both eyes [place] ophthalmic 32 every Medical drops evening. Branch secukinumab 2020-0 Yes 150mg inject 150 [facility] (COSENTYX) 4-08 mg under ity o f 150 mg/mL 16:30: the skin [place] syringe 32 weekly. Medica l Branch omeprazole 2020-0 Yes 40mg Take 40 mg U nivers 40 mg 4-08 by mouth ity of capsule 16:30: daily. [address] Branch DULoxetine 2020-0 Yes 30mg Take 30 mg U nivers 30 mg 4-08 by mouth ity of capsule 16:30: daily. [address] Branch hydroCHLORO 2020-0 Yes 12.5mg Take 12.5 [facility] thiazide 4-08 mg by ity of 12.5 mg 16:30: mouth [place] capsule 32 daily. Medical Branch montelukast 2020-0 Yes 10mg Take 10 mg [facility] 10 mg 4-08 by mouth ity of tablet 16:30: daily. [address] Branch cetirizine 2020-0 Yes 10mg Take 10 mg U nivers (ZYRTEC) 10 4-08 by mouth ity of mg tablet 16:30: daily. [place] [address] Medical Branch albuterol-i 2020-0 Yes 1{puff} Inhale 1 [facility] pratropium 4-08 Puff as ity of 20-100 16:30: needed for [place] mcg/actuati 32 Wheezing Medi janett on inhaler or Branch Shortness of Breath. spironolact 2020-0 Yes 25mg Take 25 mg [facility] one 25 mg 4-08 by mouth 2 ity of tablet 16:30: (two) [place] 32 times Medical daily. Branch gabapentin 2020-0 Yes 100mg Take 100 Un [place] 100 mg 4-08 mg by ity of capsule 16:30: mouth at [place] [address] bedtime. Medical Branch ferrous 2020-0 Yes 325mg Take 325 Unive rs sulfate 325 4-08 mg by ity of mg (65 mg 16:30: mouth 3 [place] iron) 32 (three) Medical tablet times [place] daily with meals. metoprolol 2020-0 Yes 100mg Take 100 Un [place] tartrate 4-08 mg by ity of (LOPRESSOR) 16:30: mouth 2 [place] 50 mg 32 (two) Medical tablet times [place] daily. fexofenadin 2020-0 Yes 180mg Take 180 U nivers e (ERIKA) 4-08 mg by ity of 180 mg 16:30: mouth [place] tablet 32 daily. [facility] Branch fluticasone 2020-0 Yes 2{spray Use 2 [facility] (FLONASE) 4-08 } Sprays in ity o f 50 16:30: each [place] mcg/Actuati 32 nostril Medic al on nasal daily. Branch spray latanoprost 2020-0 Yes 1[drp] Place 1 U nivers (XALATAN) 4-08 Drop in ity of 0.005 % 16:30: both eyes [place] ophthalmic 32 every Medical drops evening. Branch secukinumab 2019-0 Yes 150mg inject 150 [facility] (COSENTYX) 4-08 mg under ity o f 150 mg/mL 16:30: [place] skin [place] syringe 32 weekly. Medica l Branch omeprazole 2020-0 Yes 40mg Take 40 mg [facility] nivers 40 mg 4-08 by mouth ity of capsule 16:30: daily. [place] [address] [facility] DULoxetine 2020-0 Yes 30mg Take 30 mg [facility] nivers 30 mg 4-08 by mouth ity of capsule 16:30: daily. [place] [address] [facility] Branch hydroCHLORO 2020-0 Yes 12.5mg Take 12.5 [facility] thiazide 4-08 mg by ity of 12.5 mg 16:30: mouth [place] capsule 32 daily. Medical Branch montelukast 2020-0 Yes 10mg Take 10 mg [facility] 10 mg 4-08 by mouth ity of tablet 16:30: daily. [place] [address] [facility] Branch cetirizine 2020-0 Yes 10mg Take 10 mg U nivers (ZYRTEC) 10 4-08 by mouth ity of mg tablet 16:30: daily. [place] [address] [facility] Branch albuterol-i 2020-0 Yes 1{puff} Inhale 1 [facility] pratropium 4-08 Puff as ity of 20-100 16:30: needed for [place] mcg/actuati 32 Wheezing Medi janett on inhaler or Branch Shortness of Breath. spironolact 2020-0 Yes 25mg Take 25 mg [facility] one 25 mg 4-08 by mouth 2 ity of tablet 16:30: (two) [place] 32 times Medical daily. Branch gabapentin 2020-0 Yes 100mg Take 100 [facility] 100 mg 4-08 mg by ity of capsule 16:30: mouth at [place] [address] bedtime. Medical Branch ferrous 2020-0 Yes 325mg Take 325 Unive rs sulfate 325 4-08 mg by ity of mg (65 mg 16:30: mouth 3 [place] iron) 32 (three) Medical tablet times [place] daily with meals. metoprolol 2020-0 Yes 100mg Take 100 [facility] tartrate 4-08 mg by ity of (LOPRESSOR) 16:30: mouth 2 [place] 50 mg 32 (two) Medical tablet times [place] daily. fexofenadin 2020-0 Yes 180mg Take 180 U nivers e (ERIKA) 4-08 mg by ity of 180 mg 16:30: mouth [place] tablet 32 daily. Medical Branch fluticasone 2020-0 Yes 2{spray Use 2 [facility] (FLONASE) 4-08 } Sprays in ity o f 50 16:30: each [place] mcg/Actuati 32 nostril Medic al on nasal daily. Branch spray latanoprost 2020-0 Yes 1[drp] Place 1 U nivers (XALATAN) 4-08 Drop in ity of 0.005 % 16:30: both eyes [place] ophthalmic 32 every Medical drops evening. Branch secukinumab 2020-0 Yes 150mg inject 150 [facility] (COSENTYX) 4-08 mg under ity o f 150 mg/mL 16:30: [place] syringe 32 weekly. Medica l Branch omeprazole 2020-0 Yes 40mg Take 40 mg [facility] nivers 40 mg 4-08 by mouth ity of capsule 16:30: daily. [place] [address] [facility] Branch DULoxetine 2020-0 Yes 30mg Take 30 mg [facility] nivers 30 mg 4-08 by mouth ity of capsule 16:30: daily. [place] [address] [facility] Branch hydroCHLORO 2020-0 Yes 12.5mg Take 12.5 [facility] thiazide 4-08 mg by ity of 12.5 mg 16:30: mouth [place] capsule 32 daily. Medical Branch montelukast 2020-0 Yes 10mg Take 10 mg [facility] 10 mg 4-08 by mouth ity of tablet 16:30: daily. [address] Branch cetirizine 2020-0 Yes 10mg Take 10 mg U nivers (ZYRTEC) 10 4-08 by mouth ity of mg tablet 16:30: daily. [place] [address] [facility] Branch albuterol-i 2020-0 Yes 1{puff} Inhale 1 [facility] pratropium 4-08 Puff as ity of 20-100 16:30: needed for [facility]/actuati 32 Wheezing Medi janett on inhaler or Branch Shortness of Breath. spironolact 2020-0 Yes 25mg Take 25 mg [facility] one 25 mg 4-08 by mouth 2 ity of tablet 16:30: (two) [place] 32 times Medical daily. Branch gabapentin 2020-0 Yes 100mg Take 100 [facility] 100 mg 4-08 mg by ity of capsule 16:30: mouth at [place] [address] bedtime. Medical Branch ferrous 2020-0 Yes 325mg Take 325 Unive rs sulfate 325 4-08 mg by ity of mg (65 mg 16:30: mouth 3 [place] iron) 32 (three) Medical tablet times [place] daily with meals. metoprolol 2020-0 Yes 100mg Take 100 [facility] tartrate 4-08 mg by ity of (LOPRESSOR) 16:30: mouth 2 [place] 50 mg 32 (two) Medical tablet times [place] daily. fexofenadin 2020-0 Yes 180mg Take 180 U nivers e (ERIKA) 4-08 mg by ity of 180 mg 16:30: mouth [place] tablet 32 daily. Medical Branch fluticasone 2020-0 Yes 2{spray Use 2 Un [facility] (FLONASE) 4-08 } Sprays in ity o f 50 16:30: each [place] mcg/Actuati 32 nostril Medic al on nasal daily. Branch spray latanoprost 2020-0 Yes 1[drp] Place 1 U nivers (XALATAN) 4-08 Drop in ity of 0.005 % 16:30: both eyes [place] ophthalmic 32 every Medical drops evening. Branch secukinumab 2020-0 Yes 150mg inject 150 [facility] (COSENTYX) 4-08 mg under ity o f 150 mg/mL 16:30: the skin [place] syringe 32 weekly. Medica l Branch omeprazole 2020-0 Yes 40mg Take 40 mg [facility] nivers 40 mg 4-08 by mouth ity of capsule 16:30: daily. [place] [address] [facility] Branch DULoxetine 2020-0 Yes 30mg Take 30 mg [facility] nivers 30 mg 4-08 by mouth ity of capsule 16:30: daily. [place] [address] [facility] Branch hydroCHLORO 2020-0 Yes 12.5mg Take 12.5 [facility] thiazide 4-08 mg by ity of 12.5 mg 16:30: mouth [place] capsule 32 daily. Medical Branch montelukast 2020-0 Yes 10mg Take 10 mg [facility] 10 mg 4-08 by mouth ity of tablet 16:30: daily. [place] [address] [facility] Branch cetirizine 2020-0 Yes 10mg Take 10 mg [facility] nivers (ZYRTEC) 10 4-08 by mouth ity of mg tablet 16:30: daily. [place] [address] Medical Branch albuterol-i 2020-0 Yes 1{puff} Inhale 1 [facility] pratropium 4-08 Puff as ity of 20-100 16:30: needed for [facility] [place] Wheezing Medi janett on inhaler or Branch Shortness of Breath. spironolact 2020-0 Yes 25mg Take 25 mg [facility] one 25 mg 4-08 by mouth 2 ity of tablet 16:30: (two) [place] [address] times Medical daily. Branch gabapentin 2020-0 Yes 100mg Take 100 [facility] 100 mg 4-08 mg by ity of capsule 16:30: mouth at [place] [address] bedtime. Medical Branch ferrous 2020-0 Yes 325mg Take 325 Unive rs sulfate 325 4-08 mg by ity of mg (65 mg 16:30: mouth 3 [place] iron) 32 (three) Medical tablet times [place] daily with meals. metoprolol 2020-0 Yes 100mg Take 100 [facility] tartrate 4-08 mg by ity of (LOPRESSOR) 16:30: mouth 2 [place] 50 mg 32 (two) Medical tablet times [place] daily. fexofenadin 2020-0 Yes 180mg Take 180 U nivers e (ERIKA) 4-08 mg by ity of 180 mg 16:30: mouth [place] tablet 32 daily. Medical Branch fluticasone 2020-0 Yes 2{spray Use 2 [facility] (FLONASE) 4-08 } Sprays in ity o f 50 16:30: each [place] mcg/Actuati 32 nostril Medic al on nasal daily. Branch spray latanoprost 2020-0 Yes 1[drp] Place 1 U nivers (XALATAN) 4-08 Drop in ity of 0.005 % 16:30: both eyes [place] ophthalmic 32 every Medical drops evening. Branch secukinumab 2020-0 Yes 150mg inject 150 [facility] (COSENTYX) 4-08 mg under ity o f 150 mg/mL 16:30: [place] skin [place] syringe 32 weekly. Medica l Branch omeprazole 2020-0 Yes 40mg Take 40 mg U nivers 40 mg 4-08 by mouth ity of capsule 16:30: daily. [place] [address] Medical Branch DULoxetine 2020-0 Yes 30mg Take 30 mg U nivers 30 mg 4-08 by mouth ity of capsule 16:30: daily. [place] [address] Medical Branch hydroCHLORO 2020-0 Yes 12.5mg Take 12.5 [facility] thiazide 4-08 mg by ity of 12.5 mg 16:30: mouth [place] capsule 32 daily. Medical Branch montelukast 2020-0 Yes 10mg Take 10 mg [facility] 10 mg 4-08 by mouth ity of tablet 16:30: daily. [place] [address] Medical Branch cetirizine 2020-0 Yes 10mg Take 10 mg U nivers (ZYRTEC) 10 4-08 by mouth ity of mg tablet 16:30: daily. [place] [address] Medical Branch albuterol-i 2020-0 Yes 1{puff} Inhale 1 [facility] pratropium 4-08 Puff as ity of 20-100 16:30: needed for [place] mcg/actuati 32 Wheezing Medi janett on inhaler or Branch Shortness of Breath. spironolact 2020-0 Yes 25mg Take 25 mg [facility] one 25 mg 4-08 by mouth 2 ity of tablet 16:30: (two) [place] 32 times Medical daily. Branch gabapentin 2020-0 Yes 100mg Take 100 [facility] 100 mg 4-08 mg by ity of capsule 16:30: mouth at [place] [address] bedtime. Medical Branch ferrous 2020-0 Yes 325mg Take 325 Unive rs sulfate 325 4-08 mg by ity of mg (65 mg 16:30: mouth 3 [place] iron) 32 (three) Medical tablet times [place] daily with meals. metoprolol 2020-0 Yes 100mg Take 100 [facility] tartrate 4-08 mg by ity of (LOPRESSOR) 16:30: mouth 2 [place] 50 mg 32 (two) Medical tablet times [place] daily. fexofenadin 2020-0 Yes 180mg Take 180 U nivers e (ERIKA) 4-08 mg by ity of 180 mg 16:30: mouth [place] tablet 32 daily. Medical Branch fluticasone 2020-0 Yes 2{spray Use 2 Un [facility] (FLONASE) 4-08 } Sprays in ity o f 50 16:30: each [place] mcg/Actuati 32 nostril Medic al on nasal daily. Branch spray latanoprost 2019-0 Yes 1[drp] Place 1 U nivers (XALATAN) 4-08 Drop in ity of 0.005 % 16:30: both eyes [place] ophthalmic 32 every Medical drops evening. Branch secukinumab 2020-0 Yes 150mg inject 150 [facility] (COSENTYX) 4-08 mg under ity o f 150 mg/mL 16:30: the skin [place] syringe 32 weekly. Medica l Branch omeprazole 2019-0 Yes 40mg Take 40 mg U nivers 40 mg 4-08 by mouth ity of capsule 16:30: daily. [address] DULoxetine 2020-0 Yes 30mg Take 30 mg U nivers 30 mg 4-08 by mouth ity of capsule 16:30: daily. [address] Branch hydroCHLORO 2020-0 Yes 12.5mg Take 12.5 [facility] thiazide 4-08 mg by ity of 12.5 mg 16:30: mouth [place] capsule 32 daily. Medical Branch montelukast 2020-0 Yes 10mg Take 10 mg [facility] 10 mg 4-08 by mouth ity of tablet 16:30: daily. [address] cetirizine 2020-0 Yes 10mg Take 10 mg U nivers (ZYRTEC) 10 4-08 by mouth ity of mg tablet 16:30: daily. [address] Branch albuterol-i 2020-0 Yes 1{puff} Inhale 1 [facility] pratropium 4-08 Puff as ity of 20-100 16:30: needed for [place] mcg/actuati 32 Wheezing Medi janett on inhaler or Branch Shortness of Breath. spironolact 2020-0 Yes 25mg Take 25 mg [facility] one 25 mg 4-08 by mouth 2 ity of tablet 16:30: (two) [place] 32 times Medical daily. Branch gabapentin 2020-0 Yes 100mg Take 100 [facility] 100 mg 4-08 mg by ity of capsule 16:30: mouth at [place] [address] bedtime. Medical Branch ferrous 2020-0 Yes 325mg Take 325 Unive rs sulfate 325 4-08 mg by ity of mg (65 mg 16:30: mouth 3 [place] iron) 32 (three) Medical tablet times [place] daily with meals. metoprolol 2020-0 Yes 100mg Take 100 [facility] tartrate 4-08 mg by ity of (LOPRESSOR) 16:30: mouth 2 [place] 50 mg 32 (two) Medical tablet times [place] daily. fexofenadin 2020-0 Yes 180mg Take 180 U nivers e (ERIKA) 4-08 mg by ity of 180 mg 16:30: mouth [place] tablet 32 daily. Medical Branch fluticasone 2020-0 Yes 2{spray Use 2 Un [facility] (FLONASE) 4-08 } Sprays in ity o f 50 16:30: each [place] mcg/Actuati 32 nostril Medic al on nasal daily. Branch spray latanoprost 2020-0 Yes 1[drp] Place 1 U nivers (XALATAN) 4-08 Drop in ity of 0.005 % 16:30: both eyes [place] ophthalmic 32 every Medical drops evening. Branch secukinumab 2020-0 Yes 150mg inject 150 [facility] (COSENTYX) 4-08 mg under ity o f 150 mg/mL 16:30: the skin [place] syringe 32 weekly. Medica l Branch omeprazole 2020-0 Yes 40mg Take 40 mg U nivers 40 mg 4-08 by mouth ity of capsule 16:30: daily. [place] [address] Medical Branch DULoxetine 2020-0 Yes 30mg Take 30 mg U nivers 30 mg 4-08 by mouth ity of capsule 16:30: daily. [place] [address] Medical Branch hydroCHLORO 2020-0 Yes 12.5mg Take 12.5 [facility] thiazide 4-08 mg by ity of 12.5 mg 16:30: mouth [place] capsule 32 daily. Medical Branch montelukast 2020-0 Yes 10mg Take 10 mg [facility] 10 mg 4-08 by mouth ity of tablet 16:30: daily. [place] [address] Medical Branch cetirizine 2020-0 Yes 10mg Take 10 mg U nivers (ZYRTEC) 10 4-08 by mouth ity of mg tablet 16:30: daily. [place] [address] Medical Branch albuterol-i 2020-0 Yes 1{puff} Inhale 1 [facility] pratropium 4-08 Puff as ity of 20-100 16:30: needed for [place] mcg/actuati 32 Wheezing Medi janett on inhaler or Branch Shortness of Breath. spironolact 2020-0 Yes 25mg Take 25 mg [facility] one 25 mg 4-08 by mouth 2 ity of tablet 16:30: (two) [place] 32 times Medical daily. Branch gabapentin 2020-0 Yes 100mg Take 100 Un [facility] 100 mg 4-08 mg by ity of capsule 16:30: mouth at [place] [address] bedtime. Medical Branch ferrous 2020-0 Yes 325mg Take 325 Unive rs sulfate 325 4-08 mg by ity of mg (65 mg 16:30: mouth 3 [place] iron) 32 (three) Medical tablet times [place] daily with meals. metoprolol 2020-0 Yes 100mg Take 100 Un [facility] tartrate 4-08 mg by ity of (LOPRESSOR) 16:30: mouth 2 [place] 50 mg 32 (two) Medical tablet times Branch daily. fexofenadin 2020-0 Yes 180mg Take 180 U nivers e (ERIKA) 4-08 mg by ity of 180 mg 16:30: mouth [place] tablet 32 daily. Medical Branch fluticasone 2020-0 Yes 2{spray Use 2 Un [facility]en (FLONASE) 4-08 } Sprays in ity o f 50 16:30: each [place] mcg/Actuati 32 nostril Medic al on nasal daily. Branch spray latanoprost 2020-0 Yes 1[drp] Place 1 U nivers (XALATAN) 4-08 Drop in ity of 0.005 % 16:30: both eyes [place] ophthalmic 32 every Medical drops evening. Branch secukinumab 2020-0 Yes 150mg inject 150 [facility] (COSENTYX) 4-08 mg under ity o f 150 mg/mL 16:30: the skin [place] syringe 32 weekly. Medica l Branch omeprazole 2020-0 Yes 40mg Take 40 mg U nivers 40 mg 4-08 by mouth ity of capsule 16:30: daily. [place] [address] Medical Branch DULoxetine 2020-0 Yes 30mg Take 30 mg U nivers 30 mg 4-08 by mouth ity of capsule 16:30: daily. [place] [address] Medical Branch hydroCHLORO 2020-0 Yes 12.5mg Take 12.5 [facility] thiazide 4-08 mg by ity of 12.5 mg 16:30: mouth [place] capsule 32 daily. Medical Branch montelukast 2020-0 Yes 10mg Take 10 mg [facility] 10 mg 4-08 by mouth ity of tablet 16:30: daily. [place] [address] Medical Branch cetirizine 2020-0 Yes 10mg Take 10 mg U nivers (ZYRTEC) 10 4-08 by mouth ity of mg tablet 16:30: daily. [place] [address] Medical Branch albuterol-i 2020-0 Yes 1{puff} Inhale 1 [facility] pratropium 4-08 Puff as ity of 20-100 16:30: needed for [facility] [place] Wheezing Medi janett on inhaler or Branch Shortness of Breath. spironolact 2020-0 Yes 25mg Take 25 mg [facility] one 25 mg 4-08 by mouth 2 ity of tablet 16:30: (two) [place] [address] times Medical daily. Branch gabapentin 2020-0 Yes 100mg Take 100 [facility] 100 mg 4-08 mg by ity of capsule 16:30: mouth at [place] [address] bedtime. Medical Branch ferrous 2020-0 Yes 325mg Take 325 Unive rs sulfate 325 4-08 mg by ity of mg (65 mg 16:30: mouth 3 [place] iron) 32 (three) Medical tablet times [place] daily with meals. metoprolol 2020-0 Yes 100mg Take 100 [facility] tartrate 4-08 mg by ity of (LOPRESSOR) 16:30: mouth 2 [place] 50 mg 32 (two) Medical tablet times Branch daily. fexofenadin 2020-0 Yes 180mg Take 180 U nivers e (ERIKA) 4-08 mg by ity of 180 mg 16:30: mouth [place] tablet 32 daily. Medical Branch fluticasone 2020-0 Yes 2{spray Use 2 Un [facility] (FLONASE) 4-08 } Sprays in ity o f 50 16:30: each [place] mcg/Actuati 32 nostril Medic al on nasal daily. Branch spray latanoprost 2020-0 Yes 1[drp] Place 1 U nivers (XALATAN) 4-08 Drop in ity of 0.005 % 16:30: both eyes [place] ophthalmic 32 every Medical drops evening. Branch secukinumab 2020-0 Yes 150mg inject 150 [facility] (COSENTYX) 4-08 mg under ity o f 150 mg/mL 16:30: the skin [place] syringe 32 weekly. Medica l Branch omeprazole 2020-0 Yes 40mg Take 40 mg U nivers 40 mg 4-08 by mouth ity of capsule 16:30: daily. [place] [address] Medical Branch DULoxetine 2020-0 Yes 30mg Take 30 mg U nivers 30 mg 4-08 by mouth ity of capsule 16:30: daily. [place] [address] Medical Branch hydroCHLORO 2020-0 Yes 12.5mg Take 12.5 [facility] thiazide 4-08 mg by ity of 12.5 mg 16:30: mouth [place] capsule 32 daily. Medical Branch montelukast 2020-0 Yes 10mg Take 10 mg [facility] 10 mg 4-08 by mouth ity of tablet 16:30: daily. [place] [address] Medical Branch cetirizine 2020-0 Yes 10mg Take 10 mg U nivers (ZYRTEC) 10 4-08 by mouth ity of mg tablet 16:30: daily. [place] [address] Medical Branch albuterol-i 2020-0 Yes 1{puff} Inhale 1 [facility] pratropium 4-08 Puff as ity of 20-100 16:30: needed for [place] mcg/actuati 32 Wheezing Medi janett on inhaler or Branch Shortness of Breath. spironolact 2020-0 Yes 25mg Take 25 mg [facility] one 25 mg 4-08 by mouth 2 ity of tablet 16:30: (two) [place] [address] times Medical daily. Branch gabapentin 2020-0 Yes 100mg Take 100 Un [facility] 100 mg 4-08 mg by ity of capsule 16:30: mouth at [place] [address] bedtime. Medical Branch ferrous 2020-0 Yes 325mg Take 325 Unive rs sulfate 325 4-08 mg by ity of mg (65 mg 16:30: mouth 3 [place] iron) 32 (three) Medical tablet times Branch daily with meals. metoprolol 2020-0 Yes 100mg Take 100 Un [facility] tartrate 4-08 mg by ity of (LOPRESSOR) 16:30: mouth 2 [place] 50 mg 32 (two) Medical tablet times [place] daily. fexofenadin 2020-0 Yes 180mg Take 180 U nivers e (ERIKA) 4-08 mg by ity of 180 mg 16:30: mouth [place] tablet 32 daily. Medical Branch fluticasone 2020-0 Yes 2{spray Use 2 Un [facility] (FLONASE) 4-08 } Sprays in ity o f 50 16:30: each [place] mcg/Actuati 32 nostril Medic al on nasal daily. Branch spray latanoprost 2019-0 Yes 1[drp] Place 1 U nivers (XALATAN) 4-08 Drop in ity of 0.005 % 16:30: both eyes [place] ophthalmic 32 every Medical drops evening. Branch secukinumab 2019-0 Yes 150mg inject 150 [facility] (COSENTYX) 4-08 mg under ity o f 150 mg/mL 16:30: the skin [place] syringe 32 weekly. Medica l Branch omeprazole 2020-0 Yes 40mg Take 40 mg U nivers 40 mg 4-08 by mouth ity of capsule 16:30: daily. [address] Branch DULoxetine 2020-0 Yes 30mg Take 30 mg U nivers 30 mg 4-08 by mouth ity of capsule 16:30: daily. [address] Branch hydroCHLORO 2020-0 Yes 12.5mg Take 12.5 [facility] thiazide 4-08 mg by ity of 12.5 mg 16:30: mouth [place] capsule 32 daily. Medical Branch montelukast 2020-0 Yes 10mg Take 10 mg [facility] 10 mg 4-08 by mouth ity of tablet 16:30: daily. [address] Branch cetirizine 2020-0 Yes 10mg Take 10 mg U nivers (ZYRTEC) 10 4-08 by mouth ity of mg tablet 16:30: daily. [place] [address] Medical Branch albuterol-i 2019-0 Yes 1{puff} Inhale 1 [facility] pratropium 4-08 Puff as ity of 20-100 16:30: needed for [place] mcg/actuati 32 Wheezing Medi janett on inhaler or Branch Shortness of Breath. spironolact 2020-0 Yes 25mg Take 25 mg [facility] one 25 mg 4-08 by mouth 2 ity of tablet 16:30: (two) [place] 32 times Medical daily. Branch gabapentin 2020-0 Yes 100mg Take 100 [facility] 100 mg 4-08 mg by ity of capsule 16:30: mouth at [place] [address] bedtime. Medical Branch ferrous 2020-0 Yes 325mg Take 325 Unive rs sulfate 325 4-08 mg by ity of mg (65 mg 16:30: mouth 3 [place] iron) 32 (three) Medical tablet times [place] daily with meals. metoprolol 2020-0 Yes 100mg Take 100 [facility] tartrate 4-08 mg by ity of (LOPRESSOR) 16:30: mouth 2 [place] as 50 mg 32 (two) Medical tablet times [place] daily. fexofenadin 2020-0 Yes 180mg Take 180 U nivers e (ERIKA) 4-08 mg by ity of 180 mg 16:30: mouth [place] tablet 32 daily. Medical Branch fluticasone 2020-0 Yes 2{spray Use 2 Un [facility] (FLONASE) 4-08 } Sprays in ity o f 50 16:30: each [place] mcg/Actuati 32 nostril Medic al on nasal daily. Branch spray latanoprost 2019-0 Yes 1[drp] Place 1 U nivers (XALATAN) 4-08 Drop in ity of 0.005 % 16:30: both eyes [place] ophthalmic 32 every Medical drops evening. Branch secukinumab 2020-0 Yes 150mg inject 150 [facility] (COSENTYX) 4-08 mg under ity o f 150 mg/mL 16:30: the skin [place] syringe 32 weekly. Medica l Branch omeprazole 2019-0 Yes 40mg Take 40 mg U nivers 40 mg 4-08 by mouth ity of capsule 16:30: daily. [place] [address] Medical Branch DULoxetine 2020-0 Yes 30mg Take 30 mg U nivers 30 mg 4-08 by mouth ity of capsule 16:30: daily. [place] [address] Medical Branch hydroCHLORO 2020-0 Yes 12.5mg Take 12.5 [facility] thiazide 4-08 mg by ity of 12.5 mg 16:30: mouth [place] capsule 32 daily. Medical Branch montelukast 2020-0 Yes 10mg Take 10 mg [facility] 10 mg 4-08 by mouth ity of tablet 16:30: daily. [place] [address] Medical Branch cetirizine 2020-0 Yes 10mg Take 10 mg U nivers (ZYRTEC) 10 4-08 by mouth ity of mg tablet 16:30: daily. [place] [address] Medical Branch albuterol-i 2020-0 Yes 1{puff} Inhale 1 [facility] pratropium 4-08 Puff as ity of 20-100 16:30: needed for [facility]/actuati 32 Wheezing Medi janett on inhaler or Branch Shortness of Breath. spironolact 2020-0 Yes 25mg Take 25 mg [facility] one 25 mg 4-08 by mouth 2 ity of tablet 16:30: (two) [place] [address] times Medical daily. Branch gabapentin 2020-0 Yes 100mg Take 100 Un [facility] 100 mg 4-08 mg by ity of capsule 16:30: mouth at [place] [address] bedtime. Medical Branch ferrous 2020-0 Yes 325mg Take 325 Unive rs sulfate 325 4-08 mg by ity of mg (65 mg 16:30: mouth 3 [place] iron) 32 (three) Medical tablet times [place] daily with meals. metoprolol 2020-0 Yes 100mg Take 100 [facility] [place] tartrate 4-08 mg by ity of (LOPRESSOR) 16:30: mouth 2 [place] as 50 mg 32 (two) Medical tablet times Branch daily. fexofenadin 2020-0 Yes 180mg Take 180 U nivers e (ERIKA) 4-08 mg by ity of 180 mg 16:30: mouth [place] tablet 32 daily. Medical Branch fluticasone 2020-0 Yes 2{spray Use 2 Un [facility] (FLONASE) 4-08 } Sprays in ity o f 50 16:30: each [place] mcg/Actuati 32 nostril Medic al on nasal daily. Branch spray latanoprost 2020-0 Yes 1[drp] Place 1 U nivers (XALATAN) 4-08 Drop in ity of 0.005 % 16:30: both eyes [place] ophthalmic 32 every Medical drops evening. Branch secukinumab 2020-0 Yes 150mg inject 150 [facility] (COSENTYX) 4-08 mg under ity o f 150 mg/mL 16:30: the skin [place] syringe 32 weekly. Medica l Branch omeprazole 2020-0 Yes 40mg Take 40 mg U nivers 40 mg 4-08 by mouth ity of capsule 16:30: daily. [place] [address] Medical Branch DULoxetine 2020-0 Yes 30mg Take 30 mg U nivers 30 mg 4-08 by mouth ity of capsule 16:30: daily. [place] [address] Medical Branch hydroCHLORO 2020-0 Yes 12.5mg Take 12.5 [facility] thiazide 4-08 mg by ity of 12.5 mg 16:30: mouth [place] capsule 32 daily. Medical Branch montelukast 2020-0 Yes 10mg Take 10 mg [facility] 10 mg 4-08 by mouth ity of tablet 16:30: daily. [address] Branch cetirizine 2020-0 Yes 10mg Take 10 mg U nivers (ZYRTEC) 10 4-08 by mouth ity of mg tablet 16:30: daily. [place] [address] Medical Branch albuterol-i 2020-0 Yes 1{puff} Inhale 1 [facility] pratropium 4-08 Puff as ity of 20-100 16:30: needed for [place] mcg/actuati Wheezing Medi janett on inhaler or Branch Shortness of Breath. spironolact 2020-0 Yes 25mg Take 25 mg [facility] one 25 mg 4-08 by mouth 2 ity of tablet 16:30: (two) [place] [address] times Medical daily. Branch gabapentin 2020-0 Yes 100mg Take 100 Un [facility] 100 mg 4-08 mg by ity of capsule 16:30: mouth at [place] [address] bedtime. Medical Branch ferrous 2020-0 Yes 325mg Take 325 Unive rs sulfate 325 4-08 mg by ity of mg (65 mg 16:30: mouth 3 [place] iron) 32 (three) Medical tablet times Branch daily with meals. metoprolol 2020-0 Yes 100mg Take 100 Un [place] tartrate 4-08 mg by ity of (LOPRESSOR) 16:30: mouth 2 [place] 50 mg 32 (two) Medical tablet times Branch daily. fexofenadin 2020-0 Yes 180mg Take 180 U nivers e (ERIKA) 4-08 mg by ity of 180 mg 16:30: mouth [place] tablet 32 daily. Medical Branch fluticasone 2020-0 Yes 2{spray Use 2 Un [facility]en (FLONASE) 4-08 } Sprays in ity o f 50 16:30: each [place] mcg/Actuati 32 nostril Medic al on nasal daily. Branch spray latanoprost 2020-0 Yes 1[drp] Place 1 U nivers (XALATAN) 4-08 Drop in ity of 0.005 % 16:30: both eyes [place] ophthalmic every Medical drops evening. Branch secukinumab 2020-0 Yes 150mg inject 150 [facility] (COSENTYX) 4-08 mg under ity o f 150 mg/mL 16:30: [facility]. Medica l Branch omeprazole 2020-0 Yes 40mg Take 40 mg U nivers 40 mg 4-08 by mouth ity of capsule 16:30: daily. [place] [address] Medical Branch DULoxetine 2020-0 Yes 30mg Take 30 mg U nivers 30 mg 4-08 by mouth ity of capsule 16:30: daily. [place] [address] Medical Branch hydroCHLORO 2020-0 Yes 12.5mg Take 12.5 [facility] thiazide 4-08 mg by ity of 12.5 mg 16:30: mouth [place] capsule 32 daily. Medical Branch montelukast 2020-0 Yes 10mg Take 10 mg [facility] 10 mg 4-08 by mouth ity of tablet 16:30: daily. [place] [address] Medical Branch cetirizine 2020-0 Yes 10mg Take 10 mg U nivers (ZYRTEC) 10 4-08 by mouth ity of mg tablet 16:30: daily. [place] [address] Medical Branch albuterol-i 2020-0 Yes 1{puff} Inhale 1 [facility] pratropium 4-08 Puff as ity of 20-100 16:30: needed for [facility] [place] Wheezing Medi janett on inhaler or Branch Shortness of Breath. spironolact 2020-0 Yes 25mg Take 25 mg [facility] one 25 mg 4-08 by mouth 2 ity of tablet 16:30: (two) [place] [address] times Medical daily. Branch gabapentin 2020-0 Yes 100mg Take 100 Un aileen 100 mg 4-08 mg by ity of capsule 16:30: mouth at [place] [address] bedtime. Medical Branch ferrous 2020-0 Yes 325mg Take 325 Unive rs sulfate 325 4-08 mg by ity of mg (65 mg 16:30: mouth 3 [place] iron) (three) Medical tablet times Branch daily with meals. metoprolol 2020-0 Yes 100mg Take 100 Un aileen tartrate 4-08 mg by ity of (LOPRESSOR) 16:30: mouth 2 [place] 50 mg 32 (two) Medical tablet times Branch daily. fexofenadin 2020-0 Yes 180mg Take 180 U nivers e (ERIKA) 4-08 mg by ity of 180 mg 16:30: mouth [place] tablet 32 daily. Medical Branch fluticasone 2020-0 Yes 2{spray Use 2 Un aileen (FLONASE) 4-08 } Sprays in ity o f 50 16:30: each [place] mcg/Actuati 32 nostril Medic al on nasal daily. Branch spray latanoprost 2019-0 Yes 1[drp] Place 1 U nivers (XALATAN) 4-08 Drop in ity of 0.005 % 16:30: both eyes [place] ophthalmic 32 every Medical drops evening. Branch secukinumab 2019-0 Yes 150mg inject 150 Univers (COSENTYX) 4-08 mg under ity o f 150 mg/mL 16:30: the skin [place] syringe 32 weekly. Medica l Branch omeprazole 2019-0 Yes 40mg Take 40 mg U nivers 40 mg 4-08 by mouth ity of capsule 16:30: daily. [address] Branch DULoxetine 2019-0 Yes 30mg Take 30 mg U nivers 30 mg 4-08 by mouth ity of capsule 16:30: daily. [address] Branch hydroCHLORO 2020-0 Yes 12.5mg Take 12.5 Univers thiazide 4-08 mg by ity of 12.5 mg 16:30: mouth [place] capsule 32 daily. [facility] Branch montelukast 2019-0 Yes 10mg Take 10 mg Univers 10 mg 4-08 by mouth ity of tablet 16:30: daily. [address] Branch cetirizine 2019-0 Yes 10mg Take 10 mg U nivers (ZYRTEC) 10 4-08 by mouth ity of mg tablet 16:30: daily. [address] Branch albuterol-i 2019-0 Yes 1{puff} Inhale 1 [facility] pratropium 4-08 Puff as ity of 20-100 16:30: needed for [place] mcg/actuati 32 Wheezing Medi janett on inhaler or Branch Shortness of Breath. spironolact 2020-0 Yes 25mg Take 25 mg [facility] one 25 mg 4-08 by mouth 2 ity of tablet 16:30: (two) [place] 32 times Medical daily. Branch gabapentin 2020-0 Yes 100mg Take 100 Un aileen 100 mg 4-08 mg by ity of capsule 16:30: mouth at [place] [address] bedtime. Medical Branch ferrous 2020-0 Yes 325mg Take 325 Unive rs sulfate 325 4-08 mg by ity of mg (65 mg 16:30: mouth 3 [place] iron) 32 (three) Medical tablet times [place] daily with meals. metoprolol 2020-0 Yes 100mg Take 100 Un aileen tartrate 4-08 mg by ity of (LOPRESSOR) 16:30: mouth 2 [place] 50 mg 32 (two) Medical tablet times [place] daily. fexofenadin 2020-0 Yes 180mg Take 180 U nivers e (ERIKA) 4-08 mg by ity of 180 mg 16:30: mouth [place] tablet 32 daily. Medical Branch fluticasone 2020-0 Yes 2{spray Use 2 Un aileen (FLONASE) 4-08 } Sprays in ity o f 50 16:30: each [place] mcg/Actuati nostril Medic al on nasal daily. Branch spray latanoprost 2020-0 Yes 1[drp] Place 1 U nivers (XALATAN) 4-08 Drop in ity of 0.005 % 16:30: both eyes [place] ophthalmic 32 every Medical drops evening. Branch secukinumab 2020-0 Yes 150mg inject 150 Univers (COSENTYX) 4-08 mg under ity o f 150 mg/mL 16:30: the skin [place] syringe 32 weekly. Medica l Branch omeprazole 2020-0 Yes 40mg Take 40 mg U nivers 40 mg 4-08 by mouth ity of capsule 16:30: daily. [place] [address] Medical Branch DULoxetine 2020-0 Yes 30mg Take 30 mg U nivers 30 mg 4-08 by mouth ity of capsule 16:30: daily. [place] [address] Medical Branch hydroCHLORO 2020-0 Yes 12.5mg Take 12.5 [facility] thiazide 4-08 mg by ity of 12.5 mg 16:30: mouth [place] capsule 32 daily. Medical Branch montelukast 2020-0 Yes 10mg Take 10 mg Univers 10 mg 4-08 by mouth ity of tablet 16:30: daily. [place] [address] Medical Branch cetirizine 2020-0 Yes 10mg Take 10 mg U nivers (ZYRTEC) 10 4-08 by mouth ity of mg tablet 16:30: daily. [place] [address] Medical Branch albuterol-i 2020-0 Yes 1{puff} Inhale 1 [facility] pratropium 4-08 Puff as ity of 20-100 16:30: needed for [place] mcg/actuati 32 Wheezing Medi janett on inhaler or Branch Shortness of Breath. spironolact 2020-0 Yes 25mg Take 25 mg [facility] one 25 mg 4-08 by mouth 2 ity of tablet 16:30: (two) [place] [address] times Medical daily. Branch gabapentin 2020-0 Yes 100mg Take 100 Un aileen 100 mg 4-08 mg by ity of capsule 16:30: mouth at [place] [address] bedtime. Medical Branch ferrous 2020-0 Yes 325mg Take 325 Unive rs sulfate 325 4-08 mg by ity of mg (65 mg 16:30: mouth 3 [place] iron) 32 (three) Medical tablet times Branch daily with meals. metoprolol 2020-0 Yes 100mg Take 100 Un aileen tartrate 4-08 mg by ity of (LOPRESSOR) 16:30: mouth 2 [place] 50 mg 32 (two) Medical tablet times Branch daily. fexofenadin 2020-0 Yes 180mg Take 180 U nivers e (ERIKA) 4-08 mg by ity of 180 mg 16:30: mouth [place] tablet 32 daily. Medical Branch fluticasone 2020-0 Yes 2{spray Use 2 Un aileen (FLONASE) 4-08 } Sprays in ity o f 50 16:30: each [place] mcg/Actuati 32 nostril Medic al on nasal daily. Branch spray latanoprost 2020-0 Yes 1[drp] Place 1 U nivers (XALATAN) 4-08 Drop in ity of 0.005 % 16:30: both eyes [place] ophthalmic 32 every Medical drops evening. Branch secukinumab 2020-0 Yes 150mg inject 150 Univers (COSENTYX) 4-08 mg under ity o f 150 mg/mL 16:30: the [place] syringe 32 weekly. Medica l Branch omeprazole 2020-0 Yes 40mg Take 40 mg U nivers 40 mg 4-08 by mouth ity of capsule 16:30: daily. [place] [address] Medical Branch DULoxetine 2020-0 Yes 30mg Take 30 mg U nivers 30 mg 4-08 by mouth ity of capsule 16:30: daily. [place] [address] Medical Branch hydroCHLORO 2020-0 Yes 12.5mg Take 12.5 [facility] thiazide 4-08 mg by ity of 12.5 mg 16:30: mouth [place] capsule 32 daily. Medical Branch montelukast 2020-0 Yes 10mg Take 10 mg Univers 10 mg 4-08 by mouth ity of tablet 16:30: daily. [address] Branch cetirizine 2020-0 Yes 10mg Take 10 mg U nivers (ZYRTEC) 10 4-08 by mouth ity of mg tablet 16:30: daily. [place] [address] Medical Branch albuterol-i 2020-0 Yes 1{puff} Inhale 1 [facility] pratropium 4-08 Puff as ity of 20-100 16:30: needed for [facility]/actuati 32 Wheezing Medi janett on inhaler or Branch Shortness of Breath. spironolact 2020-0 Yes 25mg Take 25 mg [facility] one 25 mg 4-08 by mouth 2 ity of tablet 16:30: (two) [place] 32 times Medical daily. Branch gabapentin 2020-0 Yes 100mg Take 100 Un aileen 100 mg 4-08 mg by ity of capsule 16:30: mouth at [place] [address] bedtime. Medical Branch ferrous 2020-0 Yes 325mg Take 325 Unive rs sulfate 325 4-08 mg by ity of mg (65 mg 16:30: mouth 3 [place] iron) 32 (three) Medical tablet times Branch daily with meals. metoprolol 2020-0 Yes 100mg Take 100 Un aile[place] tartrate 4-08 mg by ity of (LOPRESSOR) 16:30: mouth 2 [place] 50 mg 32 (two) Medical tablet times Branch daily. fexofenadin 2020-0 Yes 180mg Take 180 U nivers e (ERIKA) 4-08 mg by ity of 180 mg 16:30: mouth [place] tablet 32 daily. Medical Branch fluticasone 2020-0 Yes 2{spray Use 2 Un aileen (FLONASE) 4-08 } Sprays in ity o f 50 16:30: each [place] mcg/Actuati 32 nostril Medic al on nasal daily. Branch spray latanoprost 2020-0 Yes 1[drp] Place 1 U nivers (XALATAN) 4-08 Drop in ity of 0.005 % 16:30: both eyes [place] ophthalmic 32 every Medical drops evening. Branch secukinumab 2019-0 Yes 150mg inject 150 Univers (COSENTYX) 4-08 mg under ity o f 150 mg/mL 16:30: the [place] syringe 32 weekly. Medica l Branch omeprazole 2019-0 Yes 40mg Take 40 mg U nivers 40 mg 4-08 by mouth ity of capsule 16:30: daily. [place] [address] Medical Branch DULoxetine 2019-0 Yes 30mg Take 30 mg U nivers 30 mg 4-08 by mouth ity of capsule 16:30: daily. [place] [address] Medical Branch hydroCHLORO 2020-0 Yes 12.5mg Take 12.5 Univers thiazide 4-08 mg by ity of 12.5 mg 16:30: mouth [place] capsule 32 daily. Medical Branch flu vaccine 2019- No .5mL 0.5 mL, Un aileen 65 yrs and 02-21-08 Intramuscu it y of up (FLUZONE 15:45: 15:56 lar, ONCE, [place] HIGH-DOSE 00 :00 1 dose, Medical 02/22/20 Branch (PF)) at 1045, syringe 0.5 Routine mL metFORMIN 2019- No 1000mg Take 1,000 Univers (GLUCOPHAGE 02-21-08 mg by ity of ) 500 mg 15:01: 00:00 mouth 2 [place] tablet 25 :00 (two) Medical times Branch daily with meals. insulin 2019- 2020- No 22U inject 22 Univ ers degludec 02-21 04-08 Units ity of (TRESIBA 15:01: 00:00 under the [place] FLEXTOUCH 25 :00 skin Medical U-100) 100 daily. Branch unit/mL (3 mL) InPn sitaGLIPtin 2019- 2020- No 1{tbl} Take 1 U nivers -metformin 02-21-08 tablet by ity of (JANUMET 15:01: 00:00 mouth [place] XR) 25 :00 daily. Medical 50-1,000 mg Branch per tablet lisinopril 2019- 2020- No 20mg Take 20 mg Univers 20 mg 02-21-08 by mouth ity of tablet 15:01: 00:00 daily. [place] 25 :00 Medical Branch amLODIPine 2019-0 2020- No 5mg Take 5 mg U nivers 5 mg tablet 02-21 by mouth ity of 15:01: 00:00 daily. [place] 25 :00 Medical Branch fluticasone 2019-0 2020- No Inhale. Un aileen -umeclidin- 02-21 ity of vilanter 15:01: 00:00 [place] (TRELEGY 25 :00 Medical ELLIPTA) Branch 100-62.5-25 mcg DsDv amLODIPine 2019-0 Yes 10mg 10 mg, Unive rs (NORVASC) 4-08 Oral, ity of tablet 10 14:00: DAILY, [place] mg 00 First dose Medical on Thu Branch 02/22/20 at 0900, Until Discontinu ed, Routine lisinopril 2020-0 Yes 20mg 20 mg, Unive rs (PRINIVIL,Z 02-21 Oral, BID, it y of ESTRIL) 01:00: [place] tablet 20 00 on Thu Medical mg 02/21/20 at Branch 2000, Until Discontinu ed, Routine lisinopril 2019-0 2020- No [id number] 20mg Take 1 Univers 20 mg 02-21 9104 tablet by ity of tablet 00:00: 04:59 mouth 2 [place] 00 :00 (two) Medical times [place] daily for 30 days. lactulose 2019-0 2020- No [id number] 30mL Take 30 mL Univers 10 gram/15 02-21 by mouth ity of mL solution 00:00: 04:59 daily for [place] 00 :00 30 days. Medical Branch lisinopril 2019-0 2020- No [id number] 20mg Take 1 Univers 20 mg 02-21 9104 tablet by ity of tablet 00:00: 04:59 mouth 2 [place] 00 :00 (two) Medical times [place] daily for 30 days. lactulose 2020-0 2020- No [id number] 30mL Take 30 mL Univers 10 gram/15 02-21 by mouth ity of mL solution 00:00: 04:59 daily for [place] 00 :00 30 days. Medical Branch lisinopril 2020-0 2020- No [id number] 20mg Take 1 Univers 20 mg 02-21- 9104 tablet by ity of tablet 00:00: 04:59 mouth 2 [place] 00 :00 (two) Medical times [place] daily for 30 days. lactulose 2019-0 2020- No [id number] 30mL Take 30 mL Univers 10 gram/15 02-21 by mouth ity of mL solution 00:00: 04:59 daily for [place] 00 :00 30 days. Medical Branch lisinopril 2019-0 2020- No [id number] 20mg Take 1 Univers 20 mg 02-21 9104 tablet by ity of tablet 00:00: 04:59 mouth 2 [place] 00 :00 (two) [facility] times [place] daily for 30 days. lactulose 2019-0 2020- No [id number] 30mL Take 30 mL Univers 10 gram/15 02-21 by mouth ity of mL solution 00:00: 04:59 daily for [place] 00 :00 30 days. Medical Branch acetaminoph 2019-0 Yes 500mg 500 mg, Un aileen en 02-20 Oral, ity of (TYLENOL) 21:33: Q6HPRN, [place] tablet 500 50 Starting Medic al mg [facility] 02/21/20 Branch at 1633, Until Discontinu ed, Routine, Pain (scale 1-3), Temp > 38.5 C omeprazole 2019-0 Yes 40mg 40 mg, Unive rs (PRILOSEC) 02-20 Oral, ity of capsule 40 14:00: DAILY, [place] mg 00 First dose Medical on [facility] 02/21/20 at 0900, Until Discontinu ed KCL 2020-0 Yes 20meq 20 mEq, Univers (KLOR-CON 02-20 Oral, ity of M20) tablet 14:00: DAILY, [place] 20 mEq 00 First dose Medical on [facility] 02/21/20 at 0900, Until Discontinu ed, Routine montelukast 2019-0 Yes 10mg 10 mg, Univ ers (SINGULAIR) 02-20 Oral, ity of tablet 10 14:00: DAILY, [place] mg 00 First dose Medical on [facility] 02/21/20 at 0900, Until Discontinu ed, Routine amLODIPine 2019-0 2020- No 5mg 5 mg, Unive rs (NORVASC) 02-20 04-08 Oral, ity of tablet 5 mg 14:00: 12:25 DAILY, [place] 00 :55 First dose Medical on [facility] 02/21/20 at 0900, Until Discontinu ed, Routine lisinopril 2020-0 2020- No 20mg 20 mg, Univ ers (PRINIVIL,Z 02-20 04-07 Oral, ity of ESTRIL) 14:00: 21:34 DAILY, [place] tablet 20 00 :24 First dose Medi janett mg on [facility] 02/21/20 at 0900, Until Discontinu ed, Routine codeine-gua 2020-0 Yes 5mL 5 mL, Unive rs ifenesin 4- Oral, ity of (ROBITUSSIN 03:29: Q6HPRN, [place] as AC) 10-100 29 Starting Medic al mg/[address] [facility] 02/20/20 [place] solution 5 at 2229, mL Until Discontinu ed, Routine, Cough Sliding 2020-0 Yes Subcutaneo Univ ers Scale 4-07 us, TID ity of Insulin - 02:00: MEALS+HS, [place] as Aspart 00 First dose Medical (NOVOLOG) + on Thu [place] [facility] 02/20/20 at Testing 2100, Until Discontinu ed, Routine gabapentin 2020-0 Yes 100mg 100 mg, Uni vers (NEURONTIN) 4-07 Oral, QHS, it y of capsule 100 02:00: First dose [place] mg 00 on [facility] [place] 02/20/20 at Branch 2100, Until Discontinu ed, Routine spironolact 2020-0 Yes 25mg 25 mg, Univ ers one 4-07 Oral, BID, ity of (ALDACTONE) 01:00: First dose [place] tablet [address] [facility] Medical mg 02/20/20 at Branch 2000, Until Discontinu ed, Routine metoprolol 2020-0 Yes 100mg 100 mg, Uni vers tartrate 4-07 Oral, BID, ity o f (LOPRESSOR) 01:00: First dose [place] tablet [address] [facility] Medical mg 02/20/20 at Branch 2000, Until Discontinu ed, Routine furosemide 2020-0 Yes 40mg 40 mg, Unive rs (LASIX) 4-07 Oral, BID, ity of tablet 40 01:00: First dose [place] mg 00 on [facility] [place] 02/20/20 at Branch 2000, Until Discontinu ed, Routine lactulose 2020-0 Yes 30mL 30 mL, Univer s (CEPHULAC) 4-07 Oral, ity of solution 30 00:45: Q12H, [place] mL 00 First dose Medical on Mon Branch 02/20/20 at 1945, Until Discontinu ed, Routine hydralAZINE 2019-0 Yes 10mg 10 mg, Univ ers (APRESOLINE 4-07 Intravenou it y of ) injection 00:42: s, Q8HPRN, [place] 10 mg 19 Starting Medical 02/20/20 Branch at 1942, Until Discontinu ed, Routine, Hypertensi on ondansetron 0 Yes 4mg 4 mg, Slow Univers (ZOFRAN 4-07 IV Push, ity of (PF)) 00:21: Q6HPRN, [place] injection 4 01 Starting Medi janett mg [facility] 02/20/20 Branch at 1921, Until Discontinu ed, Routine, Nausea and Vomiting (N/V) hydralAZINE 0 2020- No 10mg 10 mg, Uni vers (APRESOLINE 4-06 04-06 Intravenou i ty of ) injection 23:45: 22:46 s, ONCE, 1 [place] 10 mg 00 :00 dose, [facility] [place] 02/20/20 at Branch 1845, LOPEZ SITagliptin 2018-11 Yes 1{tbl} QD Take [address] -metFORMIN 1-05 tablet by [facility] (JANUMET) 16:17: mouth Medical 50-1,000 mg 34 daily. [place] per tablet montelukast 2018-11 Yes 10mg QD Take [address] [facility] (SINGULAIR) 1-05 by mouth [facility] 10 mg 16:17: nightly. Medical tablet 34 [place] lisinopril 2018-11 Yes 20mg QD Take [address] (PRINIVIL,Z 1-05 by mouth [place] [facility] ESTRIL) 20 16:17: daily. Medic al MG tablet 34 [place] metoprolol 2018-11 Yes 100mg Q.5D Take [address] (LOPRESSOR) 1-05 mg by [facility] 100 MG 16:17: mouth 2 Medical tablet 34 (two) Center times daily. amLODIPine 2018-11 Yes 5mg QD Take [address] [facility] (NORVASC) 5 1-05 by mouth [facility] MG tablet 16:17: daily. Medica l 34 [place] hydroCHLORO 2018-11 Yes 12.5mg QD Take 12.[address] [address] thiazide 1-05 mg by [facility] (MICROZIDE) 16:17: mouth Medic al 12.5 mg 34 daily. Center capsule omeprazole 2018-11 Yes 40mg QD Take [address] (PRILOSEC) 1-05 by mouth [facility] 40 MG 16:17: daily. Medical capsule 34 Center brimonidine 2018-11 Yes 1[drp] Q.5D Place [address] (ALPHAGAN) 1-05 drop into [facility] 0.15 % 16:17: both eyes Medica l ophthalmic 34 2 (two) Center solution times daily. insulin 2018-11 Yes 30U QD Inject 30 [facility] degludec 1-05 Units [facility] 100 unit/mL 16:17: subcutaneo Medical (3 mL) InPn 34 usly Center daily. latanoprost 2018-11 Yes 1[drp] QD Place [address] (XALATAN) 1-05 drop into [facility] 0.005 % 16:17: both eyes Medic al ophthalmic 34 nightly. Cente r solution albuterol 2018-11 Yes 2{puff} Inhale [address] HFA 1-05 puffs by [facility] (VENTOLIN 00:00: mouth via Med ical HFA) 90 00 inhaler Center mcg/actuati every 4 on inhaler (four) hours as needed for Wheezing or Shortness of Breath. CALCIUM Yes 1{tbl} Take 1 Univer s CARBONATE/V 6-09 tablet by ity of ITAMIN D3 00:00: mouth [place] (CALTRATE 00 daily. Medical 600 + D Branch ORAL) CALCIUM Yes 1{tbl} Take 1 Univer s CARBONATE/V 6-09 tablet by ity of ITAMIN D3 00:00: mouth [place] (CALTRATE 00 daily. Medical 600 + D Branch ORAL) CALCIUM Yes 1{tbl} Take 1 Univer s CARBONATE/V 6-09 tablet by ity of ITAMIN D3 00:00: mouth [place] (CALTRATE 00 daily. Medical 600 + D Branch ORAL) CALCIUM Yes 1{tbl} Take 1 Univer s CARBONATE/V 6-09 tablet by ity of ITAMIN D3 00:00: mouth [place] (CALTRATE 00 daily. Medical 600 + D Branch ORAL) CALCIUM Yes 1{tbl} Take 1 Univer s CARBONATE/V 6-09 tablet by ity of ITAMIN D3 00:00: mouth [place] (CALTRATE 00 daily. Medical 600 + D Branch ORAL) CALCIUM Yes 1{tbl} Take 1 Univer s CARBONATE/V 6-09 tablet by ity of ITAMIN D3 00:00: mouth [place] (CALTRATE 00 daily. Medical 600 + D Branch ORAL) CALCIUM Yes 1{tbl} Take 1 Univer s CARBONATE/V 6-09 tablet by ity of ITAMIN D3 00:00: mouth [place] (CALTRATE 00 daily. Medical 600 + D Branch ORAL) CALCIUM Yes 1{tbl} Take 1 Univer s CARBONATE/V 6-09 tablet by ity of ITAMIN D3 00:00: mouth [place] (CALTRATE 00 daily. Medical 600 + D Branch ORAL) CALCIUM Yes 1{tbl} Take 1 Univer s CARBONATE/V 6-09 tablet by ity of ITAMIN D3 00:00: mouth [place] (CALTRATE 00 daily. Medical 600 + D Branch ORAL) CALCIUM Yes 1{tbl} Take 1 Univer s CARBONATE/V 6-09 tablet by ity of ITAMIN D3 00:00: mouth [place] (CALTRATE 00 daily. Medical 600 + D Branch ORAL) CALCIUM Yes 1{tbl} Take 1 Univer s CARBONATE/V 6-09 tablet by ity of ITAMIN D3 00:00: mouth [place] (CALTRATE 00 daily. Medical 600 + D Branch ORAL) CALCIUM Yes 1{tbl} Take 1 Univer s CARBONATE/V 6-09 tablet by ity of ITAMIN D3 00:00: mouth [place] (CALTRATE 00 daily. Medical 600 + D Branch ORAL) CALCIUM Yes 1{tbl} Take 1 Univer s CARBONATE/V 6-09 tablet by ity of ITAMIN D3 00:00: mouth [place] (CALTRATE 00 daily. Medical 600 + D Branch ORAL) CALCIUM Yes 1{tbl} Take 1 Univer s CARBONATE/V 6-09 tablet by ity of ITAMIN D3 00:00: mouth [place] (CALTRATE 00 daily. Medical 600 + D Branch ORAL) CALCIUM Yes 1{tbl} Take 1 Univer s CARBONATE/V 6-09 tablet by ity of ITAMIN D3 00:00: mouth [place] (CALTRATE 00 daily. Medical 600 + D Branch ORAL) CALCIUM Yes 1{tbl} Take 1 Univer s CARBONATE/V 6-09 tablet by ity of ITAMIN D3 00:00: mouth [place] (CALTRATE 00 daily. Medical 600 + D Branch ORAL) CALCIUM Yes 1{tbl} Take 1 Univer s CARBONATE/V 6-09 tablet by ity of ITAMIN D3 00:00: mouth [place] (CALTRATE 00 daily. Medical 600 + D Branch ORAL) CALCIUM Yes 1{tbl} Take 1 Univer s CARBONATE/V 6-09 tablet by ity of ITAMIN D3 00:00: mouth [place] (CALTRATE 00 daily. Medical 600 + D Branch ORAL) CALCIUM Yes 1{tbl} Take 1 Univer s CARBONATE/V 6-09 tablet by ity of ITAMIN D3 00:00: mouth [place] (CALTRATE 00 daily. Medical 600 + D Branch ORAL) CALCIUM Yes 1{tbl} Take 1 Univer s CARBONATE/V 6-09 tablet by ity of ITAMIN D3 00:00: mouth [place] (CALTRATE 00 daily. Medical 600 + D Branch ORAL) CALCIUM Yes 1{tbl} Take 1 Univer s CARBONATE/V 6-09 tablet by ity of ITAMIN D3 00:00: mouth [place] (CALTRATE 00 daily. Medical 600 + D Branch ORAL) CALCIUM Yes 1{tbl} Take 1 Univer s CARBONATE/V 6-09 tablet by ity of ITAMIN D3 00:00: mouth [place] (CALTRATE 00 daily. Medical 600 + D Branch ORAL) CALCIUM Yes 1{tbl} Take 1 Univer s CARBONATE/V 6-09 tablet by ity of ITAMIN D3 00:00: mouth [place] (CALTRATE 00 daily. Medical 600 + D Branch ORAL) CALCIUM Yes 1{tbl} Take 1 Univer s CARBONATE/V 6-09 tablet by ity of ITAMIN D3 00:00: mouth [place] (CALTRATE 00 daily. Medical 600 + D Branch ORAL) CALCIUM Yes 1{tbl} Take 1 Univer s CARBONATE/V 6-09 tablet by ity of ITAMIN D3 00:00: mouth [place] (CALTRATE 00 daily. Medical 600 + D Branch ORAL) CALCIUM Yes 1{tbl} Take 1 Univer s CARBONATE/V 6-09 tablet by ity of ITAMIN D3 00:00: mouth [place] (CALTRATE 00 daily. Medical 600 + D Branch ORAL) CALCIUM Yes 1{tbl} Take 1 Univer s CARBONATE/V 6-09 tablet by ity of ITAMIN D3 00:00: mouth [place] (CALTRATE 00 daily. Medical 600 + D Branch ORAL) CALCIUM Yes 1{tbl} Take 1 Univer s CARBONATE/V 6-09 tablet by ity of ITAMIN D3 00:00: mouth [place] (CALTRATE 00 daily. Medical 600 + D Branch ORAL) CALCIUM Yes 1{tbl} Take 1 Univer s CARBONATE/V 6-09 tablet by ity of ITAMIN D3 00:00: mouth [place] (CALTRATE 00 daily. Medical 600 + D Branch ORAL) CALCIUM Yes 1{tbl} Take 1 Univer s CARBONATE/V 6-09 tablet by ity of ITAMIN D3 00:00: mouth [place] (CALTRATE 00 daily. Medical 600 + D Branch ORAL) methotrexat 2020- No [id number] 20mg Take 8 Univers e 6-09 04-08 Tabs by ity of (RHEUMATREX 00:00: 00:00 [place] ) 2.5 mg 00 :00 weekly. [facility] Branch foLIC acid Yes [id number] 1mg Take 1 Tab Univers (FOLATE) 1 5-25 by mouth ity o f mg tablet 00:00: daily. [facility] foLIC acid Yes [id number] 1mg Take 1 Tab Univers (FOLATE) 1 5-25 by mouth ity o f mg tablet 00:00: daily. [facility] foLIC acid Yes [id number] 1mg Take 1 Tab Univers (FOLATE) 1 5-25 by mouth ity o f mg tablet 00:00: daily. [facility] foLIC acid Yes [id number] 1mg Take 1 Tab Univers (FOLATE) 1 5-25 by mouth ity o f mg tablet 00:00: daily. [facility] foLIC acid Yes [id number] 1mg Take 1 Tab Univers (FOLATE) 1 5-25 by mouth ity o f mg tablet 00:00: daily. [facility] foLIC acid Yes [id number] 1mg Take 1 Tab Univers (FOLATE) 1 5-25 by mouth ity o f mg tablet 00:00: daily. [facility] foLIC acid Yes [id number] 1mg Take 1 Tab Univers (FOLATE) 1 5-25 by mouth ity o f mg tablet 00:00: daily. [facility] foLIC acid Yes [id number] 1mg Take 1 Tab Univers (FOLATE) 1 5-25 by mouth ity o f mg tablet 00:00: daily. [facility] foLIC acid Yes [id number] 1mg Take 1 Tab Univers (FOLATE) 1 5-25 by mouth ity o f mg tablet 00:00: daily. [facility] foLIC acid Yes [id number] 1mg Take 1 Tab Univers (FOLATE) 1 5-25 by mouth ity o f mg tablet 00:00: daily. [facility] foLIC acid Yes [id number] 1mg Take 1 Tab Univers (FOLATE) 1 5-25 by mouth ity o f mg tablet 00:00: daily. [facility] foLIC acid Yes [id number] 1mg Take 1 Tab Univers (FOLATE) 1 5-25 by mouth ity o f mg tablet 00:00: daily. [facility] foLIC acid Yes [id number] 1mg Take 1 Tab Univers (FOLATE) 1 5-25 by mouth ity o f mg tablet 00:00: daily. [facility] foLIC acid Yes [id number] 1mg Take 1 Tab Univers (FOLATE) 1 5-25 by mouth ity o f mg tablet 00:00: daily. [facility] foLIC acid Yes [id number] 1mg Take 1 Tab Univers (FOLATE) 1 5-25 by mouth ity o f mg tablet 00:00: daily. [facility] foLIC acid Yes [id number] 1mg Take 1 Tab Univers (FOLATE) 1 5-25 by mouth ity o f mg tablet 00:00: daily. [facility] foLIC acid Yes [id number] 1mg Take 1 Tab Univers (FOLATE) 1 5-25 by mouth ity o f mg tablet 00:00: daily. [place] [facility] foLIC acid Yes [id number] 1mg Take 1 Tab Univers (FOLATE) 1 5-25 by mouth ity o f mg tablet 00:00: daily. [facility] foLIC acid Yes [id number] 1mg Take 1 Tab Univers (FOLATE) 1 5-25 by mouth ity o f mg tablet 00:00: daily. [facility] foLIC acid Yes [id number] 1mg Take 1 Tab Univers (FOLATE) 1 5-25 by mouth ity o f mg tablet 00:00: daily. [place] [facility] foLIC acid Yes [id number] 1mg Take 1 Tab Univers (FOLATE) 1 5-25 by mouth ity o f mg tablet 00:00: daily. [place] [facility] foLIC acid Yes [id number] 1mg Take 1 Tab [facility] (FOLATE) 1 5-25 by mouth ity o f mg tablet 00:00: daily. [place] [facility] foLIC acid Yes [id number] 1mg Take 1 Tab [facility] (FOLATE) 1 5-25 by mouth ity o f mg tablet 00:00: daily. [place] [facility] foLIC acid Yes [id number] 1mg Take 1 Tab [facility] (FOLATE) 1 5-25 by mouth ity o f mg tablet 00:00: daily. [place] [facility] foLIC acid Yes [id number] 1mg Take 1 Tab [facility] (FOLATE) 1 5-25 by mouth ity o f mg tablet 00:00: daily. [place] [facility] foLIC acid Yes [id number] 1mg Take 1 Tab [facility] (FOLATE) 1 5-25 by mouth ity o f mg tablet 00:00: daily. [place] [facility] foLIC acid Yes [id number] 1mg Take 1 Tab [facility] (FOLATE) 1 5-25 by mouth ity o f mg tablet 00:00: daily. [place] [facility] foLIC acid Yes [id number] 1mg Take 1 Tab [facility] (FOLATE) 1 5-25 by mouth ity o f mg tablet 00:00: daily. [place] [facility] foLIC acid Yes [id number] 1mg Take 1 Tab [facility] (FOLATE) 1 5-25 by mouth ity o f mg tablet 00:00: daily. [place] [facility] foLIC acid Yes [id number] 1mg Take 1 Tab [facility] (FOLATE) 1 5-25 by mouth ity o f mg tablet 00:00: daily. [place] [facility] Blood-Gluco Yes daily. Univ ers se Meter 2-14 ity of (FREESTYLE 00:00: [place] LITE METER) 00 Medical Kit Branch Blood-Gluco Yes daily. Univ ers se Meter 2-14 ity of (FREESTYLE 00:00: [place] LITE METER) 00 Medical Kit Branch Blood-Gluco Yes daily. Univ ers se Meter 2-14 ity of (FREESTYLE 00:00: [place] LITE METER) 00 Medical Kit Branch Blood-Gluco Yes daily. Univ ers se Meter 2-14 ity of (FREESTYLE 00:00: [place] LITE METER) 00 Medical Kit Branch Blood-Gluco Yes daily. Univ ers se Meter 2-14 ity of (FREESTYLE 00:00: [place] LITE METER) 00 Medical Kit Branch Blood-Gluco Yes daily. Univ ers se Meter 2-14 ity of (FREESTYLE 00:00: [place] LITE METER) 00 Medical Kit Branch Blood-Gluco Yes daily. Univ ers se Meter 2-14 ity of (FREESTYLE 00:00: [place] LITE METER) 00 Medical Kit Branch Blood-Gluco Yes daily. Univ ers se Meter 2-14 ity of (FREESTYLE 00:00: [place] LITE METER) 00 Medical Kit Branch Blood-Gluco Yes daily. Univ ers se Meter 2-14 ity of (FREESTYLE 00:00: [place] LITE METER) 00 Medical Kit Branch Blood-Gluco Yes daily. Univ ers se Meter 2-14 ity of (FREESTYLE 00:00: [place] LITE METER) 00 Medical Kit Branch Blood-Gluco Yes daily. Univ ers se Meter 2-14 ity of (FREESTYLE 00:00: [place] LITE METER) 00 Medical Kit Branch Blood-Gluco Yes daily. Univ ers se Meter 2-14 ity of (FREESTYLE 00:00: [place] LITE METER) 00 Medical Kit Branch Blood-Gluco Yes daily. Univ ers se Meter 2-14 ity of (FREESTYLE 00:00: [place] LITE METER) 00 Medical Kit Branch Blood-Gluco Yes daily. Univ ers se Meter 2-14 ity of (FREESTYLE 00:00: [place] LITE METER) 00 Medical Kit Branch Blood-Gluco Yes daily. Univ ers se Meter 2-14 ity of (FREESTYLE 00:00: [place] LITE METER) 00 Medical Kit Branch Blood-Gluco Yes daily. Univ ers se Meter 2-14 ity of (FREESTYLE 00:00: [place] LITE METER) 00 Medical Kit Branch Blood-Gluco Yes daily. Univ ers se Meter 2-14 ity of (FREESTYLE 00:00: [place] LITE METER) 00 Medical Kit Branch Blood-Gluco Yes daily. Univ ers se Meter 2-14 ity of (FREESTYLE 00:00: [place] LITE METER) 00 Medical Kit Branch Blood-Gluco Yes daily. Univ ers se Meter 2-14 ity of (FREESTYLE 00:00: [place] LITE METER) 00 Medical Kit Branch Blood-Gluco Yes daily. Univ ers se Meter 2-14 ity of (FREESTYLE 00:00: [place] LITE METER) 00 Medical Kit Branch Blood-Gluco Yes daily. Univ ers se Meter 2-14 ity of (FREESTYLE 00:00: [place] LITE METER) 00 Medical Kit Branch Blood-Gluco Yes daily. Univ ers se Meter 2-14 ity of (FREESTYLE 00:00: [place] LITE METER) 00 Medical Kit Branch Blood-Gluco Yes daily. Univ ers se Meter 2-14 ity of (FREESTYLE 00:00: [place] LITE METER) 00 Medical Kit Branch Blood-Gluco Yes daily. Univ ers se Meter 2-14 ity of (FREESTYLE 00:00: [place] LITE METER) 00 Medical Kit Branch Blood-Gluco Yes daily. Univ ers se Meter 2-14 ity of (FREESTYLE 00:00: [place] LITE METER) 00 Medical Kit Branch Blood-Gluco Yes daily. Univ ers se Meter 2-14 ity of (FREESTYLE 00:00: [place] LITE METER) 00 Medical Kit Branch Blood-Gluco Yes daily. Univ ers se Meter 2-14 ity of (FREESTYLE 00:00: [place] LITE METER) 00 Medical Kit Branch Blood-Gluco Yes daily. Univ ers se Meter 2-14 ity of (FREESTYLE 00:00: [place] LITE METER) 00 [facility] Blood-Gluco Yes daily. Univ ers se Meter 2-14 ity of (FREESTYLE 00:00: [place] LITE METER) [facility] Blood-Gluco Yes daily. Univ ers se Meter 2-14 ity of (FREESTYLE 00:00: [place] LITE METER) [facility] glipiZIDE 2020- No 2.5mg Take 1 Tab [facility] XL 2-14 04-08 by mouth 2 ity of (GLUCOTROL 00:00: 00:00 (two) [place] XL) 2.5 mg 00 :00 times Medical 24 hr daily. Branch tablet [facility] Yes 20meq Take 1 Tab Univer s (KLOR-CON 1-04 by mouth ity of M20) 20 mEq 00:00: [place] 00 [facility] Yes 20meq Take 1 Tab Univer s (KLOR-CON 1-04 by mouth ity of M20) 20 mEq 00:00: [place]. [place] 00 [facility] Yes 20meq Take 1 Tab Univer s (KLOR-CON 1-04 by mouth ity of M20) 20 mEq 00:00: [place]. [place] 00 [facility] Yes 20meq Take 1 Tab Univer s (KLOR-CON 1-04 by mouth ity of M20) 20 mEq 00:00: [place]. [place] 00 [facility] Yes 20meq Take 1 Tab Univer s (KLOR-CON 1-04 by mouth ity of M20) 20 mEq 00:00: daily. [place] 00 [facility] Yes 20meq Take 1 Tab Univer s (KLOR-CON 1-04 by mouth ity of M20) 20 mEq 00:00: [place]. [place] 00 [facility] Yes 20meq Take 1 Tab Univer s (KLOR-CON 1-04 by mouth ity of M20) 20 mEq 00:00: daily. [place] tablet 00 [facility] Yes 20meq Take 1 Tab Un[facility] s (KLOR-CON 1-04 by mouth ity of M20) 20 mEq 00:00: daily. [place] tablet 00 [facility] Yes 20meq Take 1 Tab Univer s (KLOR-CON 1-04 by mouth ity of M20) 20 mEq 00:00: daily. [place] tablet 00 [facility] Yes 20meq Take 1 Tab Un[facility] s (KLOR-CON 1-04 by mouth ity of M20) 20 mEq 00:00: daily. [place] tablet 00 [facility] Yes 20meq Take 1 Tab Univer s (KLOR-CON 1-04 by mouth ity of M20) 20 mEq 00:00: daily. [place] tablet 00 [facility] Yes 20meq Take 1 Tab Univer s (KLOR-CON 1-04 by mouth ity of M20) 20 mEq 00:00: daily. [place] tablet 00 [facility] Yes 20meq Take 1 Tab Un[facility] s (KLOR-CON 1-04 by mouth ity of M20) 20 mEq 00:00: daily. [place] tablet 00 [facility] Yes 20meq Take 1 Tab Univer s (KLOR-CON 1-04 by mouth ity of M20) 20 mEq 00:00: daily. [place] tablet 00 [facility] Yes 20meq Take 1 Tab Univer s (KLOR-CON 1-04 by mouth ity of M20) 20 mEq 00:00: daily. [place] tablet 00 [facility] Yes 20meq Take 1 Tab Univer s (KLOR-CON 1-04 by mouth ity of M20) 20 mEq 00:00: daily. [place] tablet 00 [facility] Yes 20meq Take 1 Tab Univer s (KLOR-CON 1-04 by mouth ity of M20) 20 mEq 00:00: daily. [place] tablet 00 [facility] Yes 20meq Take 1 Tab Univer s (KLOR-CON 1-04 by mouth ity of M20) 20 mEq 00:00: daily. [place] tablet 00 [facility] Yes 20meq Take 1 Tab Univer s (KLOR-CON 1-04 by mouth ity of M20) 20 mEq 00:00: daily. [place] tablet 00 [facility] Yes 20meq Take 1 Tab Univer s (KLOR-CON 1-04 by mouth ity of M20) 20 mEq 00:00: daily. [place] tablet 00 [facility] Yes 20meq Take 1 Tab Univer s (KLOR-CON 1-04 by mouth ity of M20) 20 mEq 00:00: daily. [place] tablet 00 [facility] Yes 20meq Take 1 Tab Univer s (KLOR-CON 1-04 by mouth ity of M20) 20 mEq 00:00: daily. [place] tablet 00 [facility] Yes 20meq Take 1 Tab Univer s (KLOR-CON 1-04 by mouth ity of M20) 20 mEq 00:00: daily. [place] tablet 00 [facility] Yes 20meq Take 1 Tab Univer s (KLOR-CON 1-04 by mouth ity of M20) 20 mEq 00:00: daily. [place] tablet 00 [facility] Yes 20meq Take 1 Tab Univer s (KLOR-CON 1-04 by mouth ity of M20) 20 mEq 00:00: daily. [place] tablet 00 [facility] Yes 20meq Take 1 Tab Univer s (KLOR-CON 1-04 by mouth ity of M20) 20 mEq 00:00: daily. [place] tablet [facility] Yes 20meq Take 1 Tab Univer s (KLOR-CON 1-04 by mouth ity of M20) 20 mEq 00:00: daily. [place] tablet 00 [facility] Yes 20meq Take 1 Tab Univer s (KLOR-CON 1-04 by mouth ity of M20) 20 mEq 00:00: daily. [place] tablet 00 [facility] Yes 20meq Take 1 Tab Univer s (KLOR-CON 1-04 by mouth ity of M20) 20 mEq 00:00: daily. [place] tablet 00 [facility] Yes 20meq Take 1 Tab Univer s (KLOR-CON 1-04 by mouth ity of M20) 20 mEq 00:00: daily. [place] tablet [address] [facility] furosemide 2009-11 Yes 40mg Take 40 mg U nivers (LASIX) 40 2-16 by mouth 2 ity of mg tablet 00:00: (two) [place] 00 times Medical daily. Branch aspirin 81 2009-11 Yes 81mg Take 81 mg U nivers mg tablet 2-16 by mouth 2 ity of 00:00: (two) [place] 00 times Medical daily. Branch fluticasone 2009-11 Yes 1{puff} Inhale 1 [facility] -salmeterol 2-16 Puff ity of (ADVAIR 00:00: daily. [place] DISKUS) 00 Medical 250-50 Branch mcg/Dose inhalation disk blood sugar 2009-11 Yes before [facility] ers diagnostic 2-16 meals. ity of (FREESTYLE 00:00: [place] LITE 00 Medical STRIPS) Branch strip furosemide 2009-11 Yes 40mg Take 40 mg U nivers (LASIX) 40 2-16 by mouth 2 ity of mg tablet 00:00: (two) [place] 00 times Medical daily. Branch aspirin 81 2009-11 Yes 81mg Take 81 mg U nivers mg tablet 2-16 by mouth 2 ity of 00:00: (two) [place] 00 times Medical daily. Branch fluticasone 2009-11 Yes 1{puff} Inhale 1 [facility] -salmeterol 2-16 Puff ity of (ADVAIR 00:00: daily. [place] DISKUS) 00 Medical 250-50 Branch mcg/Dose inhalation disk blood sugar 2009-11 Yes before [facility] ers diagnostic 2-16 meals. ity of (FREESTYLE 00:00: [place] LITE 00 Medical STRIPS) Branch strip furosemide 2009-11 Yes 40mg Take 40 mg U nivers (LASIX) 40 2-16 by mouth 2 ity of mg tablet 00:00: (two) [place] 00 times Medical daily. Branch aspirin 81 2009-11 Yes 81mg Take 81 mg U nivers mg tablet 2-16 by mouth 2 ity of 00:00: (two) [place] 00 times Medical daily. Branch fluticasone 2009-11 Yes 1{puff} Inhale 1 [facility] -salmeterol 2-16 Puff ity of (ADVAIR 00:00: daily. [place] DISKUS) 00 Medical 250-50 Branch mcg/Dose inhalation disk blood sugar 2009-11 Yes before Univ ers diagnostic 2-16 meals. ity of (FREESTYLE 00:00: [place] LITE 00 Medical STRIPS) Branch strip furosemide 2009-11 Yes 40mg Take 40 mg U nivers (LASIX) 40 2-16 by mouth 2 ity of mg tablet 00:00: (two) [place] 00 times Medical daily. Branch aspirin 81 2009-11 Yes 81mg Take 81 mg U nivers mg tablet 2-16 by mouth 2 ity of 00:00: (two) [place] 00 times Medical daily. Branch fluticasone 2009-11 Yes 1{puff} Inhale 1 [facility] -salmeterol 2-16 Puff ity of (ADVAIR 00:00: daily. [place] DISKUS) 00 Medical 250-50 Branch mcg/Dose inhalation disk blood sugar 2009-11 Yes before [facility] ers diagnostic 2-16 meals. ity of (FREESTYLE 00:00: [place] LITE 00 Medical STRIPS) Branch strip furosemide 2009-11 Yes 40mg Take 40 mg U nivers (LASIX) 40 2-16 by mouth 2 ity of mg tablet 00:00: (two) [place] 00 times Medical daily. Branch aspirin 81 2009-11 Yes 81mg Take 81 mg U nivers mg tablet 2-16 by mouth 2 ity of 00:00: (two) [place] 00 times Medical daily. Branch fluticasone 2009-11 Yes 1{puff} Inhale 1 [facility] -salmeterol 2-16 Puff ity of (ADVAIR 00:00: daily. [place] DISKUS) 00 Medical 250-50 Branch mcg/Dose inhalation disk blood sugar 2009-11 Yes before [facility] ers diagnostic 2-16 meals. ity of (FREESTYLE 00:00: [place] LITE 00 Medical STRIPS) Branch strip furosemide 2009-11 Yes 40mg Take 40 mg U nivers (LASIX) 40 2-16 by mouth 2 ity of mg tablet 00:00: (two) [place] 00 times Medical daily. Branch aspirin 81 2009-11 Yes 81mg Take 81 mg U nivers mg tablet 2-16 by mouth 2 ity of 00:00: (two) [place] 00 times Medical daily. Branch fluticasone 2009-11 Yes 1{puff} Inhale 1 [facility] -salmeterol 2-16 Puff ity of (ADVAIR 00:00: daily. [place] DISKUS) 00 Medical 250-50 Branch mcg/Dose inhalation disk blood sugar 2009-11 Yes before [facility] ers diagnostic 2-16 meals. ity of (FREESTYLE 00:00: [place] LITE 00 Medical STRIPS) Branch strip furosemide 2009-11 Yes 40mg Take 40 mg U nivers (LASIX) 40 2-16 by mouth 2 ity of mg tablet 00:00: (two) [place] 00 times Medical daily. Branch aspirin 81 2009-11 Yes 81mg Take 81 mg U nivers mg tablet 2-16 by mouth 2 ity of 00:00: (two) [place] 00 times Medical daily. Branch fluticasone 2009-11 Yes 1{puff} Inhale 1 [facility] -salmeterol 2-16 Puff ity of (ADVAIR 00:00: daily. [place] DISKUS) 00 Medical 250-50 Branch mcg/Dose inhalation disk blood sugar 2009-11 Yes before [facility] ers diagnostic 2-16 meals. ity of (FREESTYLE 00:00: [place] LITE 00 Medical STRIPS) Branch strip furosemide 2009-11 Yes 40mg Take 40 mg U nivers (LASIX) 40 2-16 by mouth 2 ity of mg tablet 00:00: (two) [place] 00 times Medical daily. Branch aspirin 81 2009-11 Yes 81mg Take 81 mg U nivers mg tablet 2-16 by mouth 2 ity of 00:00: (two) [place] 00 times Medical daily. Branch fluticasone 2009-11 Yes 1{puff} Inhale 1 [facility] -salmeterol 2-16 Puff ity of (ADVAIR 00:00: daily. [place] DISKUS) 00 Medical 250-50 Branch mcg/Dose inhalation disk blood sugar 2009-11 Yes before [facility] ers diagnostic 2-16 meals. ity of (FREESTYLE 00:00: [place] LITE 00 Medical STRIPS) Branch strip furosemide 2009-11 Yes 40mg Take 40 mg U nivers (LASIX) 40 2-16 by mouth 2 ity of mg tablet 00:00: (two) [place] 00 times Medical daily. Branch aspirin 81 2009-11 Yes 81mg Take 81 mg U nivers mg tablet 2-16 by mouth 2 ity of 00:00: (two) [place] 00 times Medical daily. Branch fluticasone 2009-11 Yes 1{puff} Inhale 1 [facility] -salmeterol 2-16 Puff ity of (ADVAIR 00:00: daily. [place] DISKUS) 00 Medical 250-50 Branch mcg/Dose inhalation disk blood sugar 2009-11 Yes before [facility] ers diagnostic 2-16 meals. ity of (FREESTYLE 00:00: [place] LITE 00 Medical STRIPS) Branch strip furosemide 2009-11 Yes 40mg Take 40 mg U nivers (LASIX) 40 2-16 by mouth 2 ity of mg tablet 00:00: (two) [place] 00 times Medical daily. Branch aspirin 81 2009-11 Yes 81mg Take 81 mg U nivers mg tablet 2-16 by mouth 2 ity of 00:00: (two) [place] 00 times Medical daily. Branch fluticasone 2009-11 Yes 1{puff} Inhale 1 [facility] -salmeterol 2-16 Puff ity of (ADVAIR 00:00: daily. [place] DISKUS) 00 Medical 250-50 Branch mcg/Dose inhalation disk blood sugar 2009-11 Yes before [facility] ers diagnostic 2-16 meals. ity of (FREESTYLE 00:00: [place] LITE 00 Medical STRIPS) Branch strip furosemide 2009-11 Yes 40mg Take 40 mg U nivers (LASIX) 40 2-16 by mouth 2 ity of mg tablet 00:00: (two) [place] 00 times Medical daily. Branch aspirin 81 2009-11 Yes 81mg Take 81 mg U nivers mg tablet 2-16 by mouth 2 ity of 00:00: (two) [place] 00 times Medical daily. Branch fluticasone 2009-11 Yes 1{puff} Inhale 1 [facility] -salmeterol 2-16 Puff ity of (ADVAIR 00:00: daily. [place] DISKUS) 00 Medical 250-50 Branch mcg/Dose inhalation disk blood sugar 2009-11 Yes before [facility] ers diagnostic 2-16 meals. ity of (FREESTYLE 00:00: [place] LITE 00 Medical STRIPS) Branch strip furosemide 2009-11 Yes 40mg Take 40 mg U nivers (LASIX) 40 2-16 by mouth 2 ity of mg tablet 00:00: (two) [place] 00 times Medical daily. Branch aspirin 81 2009-11 Yes 81mg Take 81 mg U nivers mg tablet 2-16 by mouth 2 ity of 00:00: (two) [place] 00 times Medical daily. Branch fluticasone 2009-11 Yes 1{puff} Inhale 1 [facility] -salmeterol 2-16 Puff ity of (ADVAIR 00:00: daily. [place] DISKUS) 00 Medical 250-50 Branch mcg/Dose inhalation disk blood sugar 2009-11 Yes before [facility] ers diagnostic 2-16 meals. ity of (FREESTYLE 00:00: [place] LITE 00 Medical STRIPS) Branch strip furosemide 2009-11 Yes 40mg Take 40 mg U nivers (LASIX) 40 2-16 by mouth 2 ity of mg tablet 00:00: (two) [place] 00 times Medical daily. Branch aspirin 81 2009-11 Yes 81mg Take 81 mg U nivers mg tablet 2-16 by mouth 2 ity of 00:00: (two) [place] 00 times Medical daily. Branch fluticasone 2009-11 Yes 1{puff} Inhale 1 [facility] -salmeterol 2-16 Puff ity of (ADVAIR 00:00: daily. [place] DISKUS) 00 Medical 250-50 Branch mcg/Dose inhalation disk blood sugar 2009-11 Yes before [facility] ers diagnostic 2-16 meals. ity of (FREESTYLE 00:00: [place] LITE 00 Medical STRIPS) Branch strip furosemide 2009-11 Yes 40mg Take 40 mg U nivers (LASIX) 40 2-16 by mouth 2 ity of mg tablet 00:00: (two) [place] 00 times Medical daily. Branch aspirin 81 2009-11 Yes 81mg Take 81 mg U nivers mg tablet 2-16 by mouth 2 ity of 00:00: (two) [place] 00 times Medical daily. Branch fluticasone 2009-11 Yes 1{puff} Inhale 1 [facility] -salmeterol 2-16 Puff ity of (ADVAIR 00:00: daily. [place] DISKUS) 00 Medical 250-50 Branch mcg/Dose inhalation disk blood sugar 2009-11 Yes before [facility] ers diagnostic 2-16 meals. ity of (FREESTYLE 00:00: [place] LITE 00 Medical STRIPS) Branch strip furosemide 2009-11 Yes 40mg Take 40 mg U nivers (LASIX) 40 2-16 by mouth 2 ity of mg tablet 00:00: (two) [place] 00 times Medical daily. Branch aspirin 81 2009-11 Yes 81mg Take 81 mg U nivers mg tablet 2-16 by mouth 2 ity of 00:00: (two) [place] 00 times Medical daily. Branch fluticasone 2009-11 Yes 1{puff} Inhale 1 [facility] -salmeterol 2-16 Puff ity of (ADVAIR 00:00: daily. [place] DISKUS) 00 Medical 250-50 Branch mcg/Dose inhalation disk blood sugar 2009-11 Yes before [facility] ers diagnostic 2-16 meals. ity of (FREESTYLE 00:00: [place] LITE 00 Medical STRIPS) Branch strip furosemide 2009-11 Yes 40mg Take 40 mg U nivers (LASIX) 40 2-16 by mouth 2 ity of mg tablet 00:00: (two) [place] 00 times Medical daily. Branch aspirin 81 2009-11 Yes 81mg Take 81 mg U nivers mg tablet 2-16 by mouth 2 ity of 00:00: (two) [place] 00 times Medical daily. Branch fluticasone 2009-11 Yes 1{puff} Inhale 1 [facility] -salmeterol 2-16 Puff ity of (ADVAIR 00:00: daily. [place] DISKUS) 00 Medical 250-50 Branch mcg/Dose inhalation disk blood sugar 2009-11 Yes before [facility] ers diagnostic 2-16 meals. ity of (FREESTYLE 00:00: [place] LITE 00 Medical STRIPS) Branch strip furosemide 2009-11 Yes 40mg Take 40 mg U nivers (LASIX) 40 2-16 by mouth 2 ity of mg tablet 00:00: (two) [place] 00 times Medical daily. Branch aspirin 81 2009-11 Yes 81mg Take 81 mg U nivers mg tablet 2-16 by mouth 2 ity of 00:00: (two) [place] 00 times Medical daily. Branch fluticasone 2009-11 Yes 1{puff} Inhale 1 [facility] -salmeterol 2-16 Puff ity of (ADVAIR 00:00: daily. [place] DISKUS) 00 Medical 250-50 Branch mcg/Dose inhalation disk blood sugar 2009-11 Yes before [facility] ers diagnostic 2-16 meals. ity of (FREESTYLE 00:00: [place] LITE 00 Medical STRIPS) Branch strip furosemide 2009-11 Yes 40mg Take 40 mg U nivers (LASIX) 40 2-16 by mouth 2 ity of mg tablet 00:00: (two) [place] 00 times Medical daily. Branch aspirin 81 2009-11 Yes 81mg Take 81 mg U nivers mg tablet 2-16 by mouth 2 ity of 00:00: (two) [place] 00 times Medical daily. Branch fluticasone 2009-11 Yes 1{puff} Inhale 1 [facility] -salmeterol 2-16 Puff ity of (ADVAIR 00:00: daily. [place] DISKUS) 00 Medical 250-50 Branch mcg/Dose inhalation disk blood sugar 2009-11 Yes before [facility] ers diagnostic 2-16 meals. ity of (FREESTYLE 00:00: [place] LITE 00 Medical STRIPS) Branch strip furosemide 2009-11 Yes 40mg Take 40 mg U nivers (LASIX) 40 2-16 by mouth 2 ity of mg tablet 00:00: (two) [place] 00 times Medical daily. Branch aspirin 81 2009-11 Yes 81mg Take 81 mg U nivers mg tablet 2-16 by mouth 2 ity of 00:00: (two) [place] 00 times Medical daily. Branch fluticasone 2009-11 Yes 1{puff} Inhale 1 [facility] -salmeterol 2-16 Puff ity of (ADVAIR 00:00: daily. [place] DISKUS) 00 Medical 250-50 Branch mcg/Dose inhalation disk blood sugar 2009-11 Yes before [facility] ers diagnostic 2-16 meals. ity of (FREESTYLE 00:00: [place] LITE 00 Medical STRIPS) Branch strip furosemide 2009-11 Yes 40mg Take 40 mg U nivers (LASIX) 40 2-16 by mouth 2 ity of mg tablet 00:00: (two) [place] 00 times Medical daily. Branch aspirin 81 2009-11 Yes 81mg Take 81 mg U nivers mg tablet 2-16 by mouth 2 ity of 00:00: (two) [place] 00 times Medical daily. Branch fluticasone 2009-11 Yes 1{puff} Inhale 1 [facility] -salmeterol 2-16 Puff ity of (ADVAIR 00:00: daily. [place] DISKUS) 00 Medical 250-50 Branch mcg/Dose inhalation disk blood sugar 2009-11 Yes before [facility] ers diagnostic 2-16 meals. ity of (FREESTYLE 00:00: [place] LITE 00 Medical STRIPS) Branch strip furosemide 2009-11 Yes 40mg Take 40 mg U nivers (LASIX) 40 2-16 by mouth 2 ity of mg tablet 00:00: (two) [place] 00 times Medical daily. Branch aspirin 81 2009-11 Yes 81mg Take 81 mg U nivers mg tablet 2-16 by mouth 2 ity of 00:00: (two) [place] 00 times Medical daily. Branch fluticasone 2009-11 Yes 1{puff} Inhale 1 [facility] -salmeterol 2-16 Puff ity of (ADVAIR 00:00: daily. [place] DISKUS) 00 Medical 250-50 Branch mcg/Dose inhalation disk blood sugar 2009-11 Yes before [facility] ers diagnostic 2-16 meals. ity of (FREESTYLE 00:00: [place] LITE 00 Medical STRIPS) Branch strip furosemide 2009-11 Yes 40mg Take 40 mg U nivers (LASIX) 40 2-16 by mouth 2 ity of mg tablet 00:00: (two) [place] 00 times Medical daily. Branch aspirin 81 2009-11 Yes 81mg Take 81 mg U nivers mg tablet 2-16 by mouth 2 ity of 00:00: (two) [place] 00 times Medical daily. Branch fluticasone 2009-11 Yes 1{puff} Inhale 1 [facility] -salmeterol 2-16 Puff ity of (ADVAIR 00:00: daily. [place] DISKUS) 00 Medical 250-50 Branch mcg/Dose inhalation disk blood sugar 2009-11 Yes before [facility] ers diagnostic 2-16 meals. ity of (FREESTYLE 00:00: [place] LITE 00 Medical STRIPS) Branch strip furosemide 2009-11 Yes 40mg Take 40 mg U nivers (LASIX) 40 2-16 by mouth 2 ity of mg tablet 00:00: (two) [place] 00 times Medical daily. Branch aspirin 81 2009-11 Yes 81mg Take 81 mg U nivers mg tablet 2-16 by mouth 2 ity of 00:00: (two) [place] 00 times Medical daily. Branch fluticasone 2009-11 Yes 1{puff} Inhale 1 [facility] -salmeterol 2-16 Puff ity of (ADVAIR 00:00: daily. [place] DISKUS) 00 Medical 250-50 Branch mcg/Dose inhalation disk blood sugar 2009-11 Yes before [facility] ers diagnostic 2-16 meals. ity of (FREESTYLE 00:00: [place] LITE 00 Medical STRIPS) Branch strip furosemide 2009-11 Yes 40mg Take 40 mg U nivers (LASIX) 40 2-16 by mouth 2 ity of mg tablet 00:00: (two) [place] 00 times Medical daily. Branch aspirin 81 2009-11 Yes 81mg Take 81 mg U nivers mg tablet 2-16 by mouth 2 ity of 00:00: (two) [place] 00 times Medical daily. Branch fluticasone 2009-11 Yes 1{puff} Inhale 1 [facility] -salmeterol 2-16 Puff ity of (ADVAIR 00:00: daily. [place] DISKUS) 00 Medical 250-50 Branch mcg/Dose inhalation disk blood sugar 2009-11 Yes before [facility] ers diagnostic 2-16 meals. ity of (FREESTYLE 00:00: [place] LITE 00 Medical STRIPS) Branch strip furosemide 2009-11 Yes 40mg Take 40 mg U nivers (LASIX) 40 2-16 by mouth 2 ity of mg tablet 00:00: (two) [place] 00 times Medical daily. Branch aspirin 81 2009-11 Yes 81mg Take 81 mg U nivers mg tablet 2-16 by mouth 2 ity of 00:00: (two) [place] 00 times Medical daily. Branch fluticasone 2009-11 Yes 1{puff} Inhale 1 [facility] -salmeterol 2-16 Puff ity of (ADVAIR 00:00: daily. [place] DISKUS) 00 Medical 250-50 Branch mcg/Dose inhalation disk blood sugar 2009-11 Yes before [facility] ers diagnostic 2-16 meals. ity of (FREESTYLE 00:00: [place] LITE 00 Medical STRIPS) Branch strip furosemide 2009-11 Yes 40mg Take 40 mg U nivers (LASIX) 40 2-16 by mouth 2 ity of mg tablet 00:00: (two) [place] 00 times Medical daily. Branch aspirin 81 2009-11 Yes 81mg Take 81 mg U nivers mg tablet 2-16 by mouth 2 ity of 00:00: (two) [place] 00 times Medical daily. Branch fluticasone 2009-11 Yes 1{puff} Inhale 1 [facility] -salmeterol 2-16 Puff ity of (ADVAIR 00:00: daily. [place] DISKUS) 00 Medical 250-50 Branch mcg/Dose inhalation disk blood sugar 2009-11 Yes before [facility] ers diagnostic 2-16 meals. ity of (FREESTYLE 00:00: [place] LITE 00 Medical STRIPS) Branch strip furosemide 2009-11 Yes 40mg Take 40 mg U nivers (LASIX) 40 2-16 by mouth 2 ity of mg tablet 00:00: (two) [place] 00 times Medical daily. Branch aspirin 81 2009-11 Yes 81mg Take 81 mg U nivers mg tablet 2-16 by mouth 2 ity of 00:00: (two) [place] 00 times Medical daily. Branch fluticasone 2009-11 Yes 1{puff} Inhale 1 [facility] -salmeterol 2-16 Puff ity of (ADVAIR 00:00: daily. [place] DISKUS) 00 Medical 250-50 Branch mcg/Dose inhalation disk blood sugar 2009-11 Yes before [facility] ers diagnostic 2-16 meals. ity of (FREESTYLE 00:00: [place] LITE 00 Medical STRIPS) Branch strip furosemide 2009-11 Yes 40mg Take 40 mg U nivers (LASIX) 40 2-16 by mouth 2 ity of mg tablet 00:00: (two) [place] 00 times Medical daily. Branch aspirin 81 2009-11 Yes 81mg Take 81 mg U nivers mg tablet 2-16 by mouth 2 ity of 00:00: (two) [place] 00 times Medical daily. Branch fluticasone 2009-11 Yes 1{puff} Inhale 1 [facility] -salmeterol 2-16 Puff ity of (ADVAIR 00:00: daily. [place] DISKUS) 00 Medical 250-50 Branch mcg/Dose inhalation disk blood sugar 2009-11 Yes before [facility] ers diagnostic 2-16 meals. ity of (FREESTYLE 00:00: [place] LITE 00 Medical STRIPS) Branch strip furosemide 2009-11 Yes 40mg Take 40 mg U nivers (LASIX) 40 2-16 by mouth 2 ity of mg tablet 00:00: (two) [place] 00 times Medical daily. Branch aspirin 81 2009-11 Yes 81mg Take 81 mg U nivers mg tablet 2-16 by mouth 2 ity of 00:00: (two) [place] 00 times Medical daily. Branch fluticasone 2009-11 Yes 1{puff} Inhale 1 [facility] -salmeterol 2-16 Puff ity of (ADVAIR 00:00: daily. [place] DISKUS) 00 Medical 250-50 Branch mcg/Dose inhalation disk blood sugar 2009-11 Yes before [facility] ers diagnostic 2-16 meals. ity of (FREESTYLE 00:00: [place] LITE 00 Medical STRIPS) Branch strip furosemide 2009-11 Yes 40mg Take 40 mg U nivers (LASIX) 40 2-16 by mouth 2 ity of mg tablet 00:00: (two) [place] 00 times Medical daily. Branch aspirin 81 2009-11 Yes 81mg Take 81 mg U nivers mg tablet 2-16 by mouth 2 ity of 00:00: (two) [place] [id number] times Medical daily. Branch fluticasone 2009-11 Yes 1{puff} Inhale 1 [facility] -salmeterol 2-16 Puff ity of (ADVAIR 00:00: daily. [place] DISKUS) Medical 250-50 Branch mcg/Dose inhalation disk blood sugar 2009-11 Yes before [facility] ers diagnostic 2-16 meals. ity of (FREESTYLE 00:00: [place] LIT 00 Medical STRIPS) Branch strip ALBUTEROL 2009-11 2020- No 2{puff} Inhale 2 Univers SULFATE 2-16 04-08 Puffs as ity of (VENTOLIN 00:00: [place]. [place] HFA INHALE) 00 :00 Medical Branch Constulose Constulose No Constulose 10 GM/15ML 10 GM/15ML 10 GM/15ML Spironolact Spironolact No 1{table QD Spironolac one 50 MG one 50 MG t} tone 50 MG Omeprazole Omeprazole No QD Omeprazole 40 MG 40 MG 40 MG Xifaxan 550 Xifaxan 550 No 1{table BID Xifaxan MG MG t} 550 MG Breo Breo No 1{puff} QD Breo Ellipta Ellipta Ellipta 100-25 100-25 100-25 MCG/INH MCG/INH MCG/INH ProAir HFA ProAir HFA No 2{puffs ProAir HFA 108 (90 108 (90 _as_nee 108 (90 Base) Base) ded} Base) MCG/ACT MCG/ACT MCG/ACT Eplerenone Eplerenone No 1{table QD Eplerenone 25 MG 25 MG t} 25 MG Lactulose Lactulose No 15{ml} QD Lactulose 10 GM/15ML 10 GM/15ML 10 GM/15ML Metoprolol Metoprolol No Metoprolol Tartrate Tartrate Tartrate 100 MG 100 MG 100 MG Atorvastati Atorvastati No 1{table QD Atorvastat n Calcium n Calcium t} in Calcium 10 MG 10 MG 10 MG Xyzal Xyzal No Xyzal Lactulose Lactulose No Lactulose 10 GM/15ML 10 GM/15ML 10 GM/15ML Metoprolol Metoprolol No 1{table BID Metoprolol Tartrate Tartrate t_with_ Tartrate 100 MG 100 MG food} 100 MG Omeprazole Omeprazole No QD Omeprazole 40 MG 40 MG 40 MG Furosemide Furosemide No 1{table BID Furosemide 40 MG 40 MG t} 40 MG Aspirin 81 Aspirin 81 No 1{table QD Aspirin 81 81 MG 81 MG t} 81 MG amLODIPine amLODIPine No amLODIPine Besylate 5 Besylate 5 Besylate 5 MG MG MG Vitamin D3 Vitamin D3 No Vitamin D3 1.25 MG 1.25 MG 1.25 MG (45346 UT) (08540 UT) (42042 UT) Metoprolol Metoprolol No Metoprolol Tartrate Tartrate Tartrate 100 MG 100 MG 100 MG Breo Breo No 1{puff} QD Breo Ellipta Ellipta Ellipta 100-25 100-25 100-25 MCG/INH MCG/INH MCG/INH ProAir HFA ProAir HFA No 2{puffs ProAir HFA 108 (90 108 (90 _as_nee 108 (90 Base) Base) ded} Base) MCG/ACT MCG/ACT MCG/ACT Eplerenone Eplerenone No 1{table QD Eplerenone 25 MG 25 MG t} 25 MG Lactulose Lactulose No 15{ml} QD Lactulose 10 GM/15ML 10 GM/15ML 10 GM/15ML Constulose Constulose No Constulose 10 GM/15ML 10 GM/15ML 10 GM/15ML Omeprazole Omeprazole No Omeprazole 40 MG 40 MG 40 MG Xyzal Xyzal No Xyzal Xifaxan 550 Xifaxan 550 No 1{table BID Xifaxan MG MG t} 550 MG Aspirin 81 Aspirin 81 No 1{table QD Aspirin 81 81 MG 81 MG t} 81 MG amLODIPine amLODIPine No amLODIPine Besylate 5 Besylate 5 Besylate 5 MG MG MG Furosemide Furosemide No 1{table BID Furosemide 40 MG 40 MG t} 40 MG Atorvastati Atorvastati No Atorvastat n Calcium n Calcium in Calcium 10 MG 10 MG 10 MG Spironolact Spironolact No 1{table QD Spironolac one 50 MG one 50 MG t} tone 50 MG amLODIPine amLODIPine No amLODIPine Besylate 5 Besylate 5 Besylate 5 MG MG MG Omeprazole Omeprazole No QD Omeprazole 40 MG 40 MG 40 MG Lactulose Lactulose No 15{ml} QD Lactulose 10 GM/15ML 10 GM/15ML 10 GM/15ML Atorvastati Atorvastati No 1{table QD Atorvastat n Calcium n Calcium t} in Calcium 10 MG 10 MG 10 MG Vitamin D3 Vitamin D3 No Vitamin D3 1.25 MG 1.25 MG 1.25 MG (80663 UT) (92302 UT) (21426 UT) Atorvastati Atorvastati No Atorvastat n Calcium n Calcium in Calcium 10 MG 10 MG 10 MG Omeprazole Omeprazole No Omeprazole 40 MG 40 MG 40 MG Metoprolol Metoprolol No Metoprolol Tartrate Tartrate Tartrate 100 MG 100 MG 100 MG Breo Breo No 1{puff} QD Breo Ellipta Ellipta Ellipta 100-25 100-25 100-25 MCG/INH MCG/INH MCG/INH ProAir HFA ProAir HFA No 2{puffs ProAir HFA 108 (90 108 (90 _as_nee 108 (90 Base) Base) ded} Base) MCG/ACT MCG/ACT MCG/ACT Constulose Constulose No Constulose 10 GM/15ML 10 GM/15ML 10 GM/15ML Aspirin 81 Aspirin 81 No 1{table QD Aspirin 81 81 MG 81 MG t} 81 MG Furosemide Furosemide No 1{table BID Furosemide 40 MG 40 MG t} 40 MG Xyzal Xyzal No Xyzal Eplerenone Eplerenone No 1{table QD Eplerenone 25 MG 25 MG t} 25 MG Xifaxan 550 Xifaxan 550 No 1{table BID Xifaxan MG MG t} 550 MG Metoprolol Metoprolol No 1{table BID Metoprolol Tartrate Tartrate t_with_ Tartrate 100 MG 100 MG food} 100 MG amLODIPine amLODIPine No amLODIPine Besylate 5 Besylate 5 Besylate 5 MG MG MG Omeprazole Omeprazole No QD Omeprazole 40 MG 40 MG 40 MG Lactulose Lactulose No 15{ml} QD Lactulose 10 GM/15ML 10 GM/15ML 10 GM/15ML Atorvastati Atorvastati No 1{table QD Atorvastat n Calcium n Calcium t} in Calcium 10 MG 10 MG 10 MG Vitamin D3 Vitamin D3 No Vitamin D3 1.25 MG 1.25 MG 1.25 MG (72862 UT) ( UT) ( UT) Atorvastati Atorvastati No Atorvastat n Calcium n Calcium in Calcium 10 MG 10 MG 10 MG Omeprazole Omeprazole No Omeprazole 40 MG 40 MG 40 MG Metoprolol Metoprolol No Metoprolol Tartrate Tartrate Tartrate 100 MG 100 MG 100 MG Breo Breo No 1{puff} QD Breo Ellipta Ellipta Ellipta 100-25 100-25 100-25 MCG/INH MCG/INH MCG/INH ProAir HFA ProAir HFA No 2{puffs ProAir HFA 108 (90 108 (90 _as_nee 108 (90 Base) Base) ded} Base) MCG/ACT MCG/ACT MCG/ACT Constulose Constulose No Constulose 10 GM/15ML 10 GM/15ML 10 GM/15ML Aspirin 81 Aspirin 81 No 1{table QD Aspirin 81 81 MG 81 MG t} 81 MG Furosemide Furosemide No 1{table BID Furosemide 40 MG 40 MG t} 40 MG Xyzal Xyzal No Xyzal Eplerenone Eplerenone No 1{table QD Eplerenone 25 MG 25 MG t} 25 MG Xifaxan 550 Xifaxan 550 No 1{table BID Xifaxan MG MG t} 550 MG Metoprolol Metoprolol No 1{table BID Metoprolol Tartrate Tartrate t_with_ Tartrate 100 MG 100 MG food} 100 MG amLODIPine amLODIPine No amLODIPine Besylate 5 Besylate 5 Besylate 5 MG MG MG Omeprazole Omeprazole No QD Omeprazole 40 MG 40 MG 40 MG Lactulose Lactulose No 15{ml} QD Lactulose 10 GM/15ML 10 GM/15ML 10 GM/15ML Atorvastati Atorvastati No 1{table QD Atorvastat n Calcium n Calcium t} in Calcium 10 MG 10 MG 10 MG Vitamin D3 Vitamin D3 No Vitamin D3 1.25 MG 1.25 MG 1.25 MG ( UT) ( UT) ( UT) Atorvastati Atorvastati No Atorvastat n Calcium n Calcium in Calcium 10 MG 10 MG 10 MG Omeprazole Omeprazole No Omeprazole 40 MG 40 MG 40 MG Metoprolol Metoprolol No Metoprolol Tartrate Tartrate Tartrate 100 MG 100 MG 100 MG Breo Breo No 1{puff} QD Breo Ellipta Ellipta Ellipta 100-25 100-25 100-25 MCG/INH MCG/INH MCG/INH ProAir HFA ProAir HFA No 2{puffs ProAir HFA 108 (90 108 (90 _as_nee 108 (90 Base) Base) ded} Base) MCG/ACT MCG/ACT MCG/ACT Constulose Constulose No Constulose 10 GM/15ML 10 GM/15ML 10 GM/15ML Aspirin 81 Aspirin 81 No 1{table QD Aspirin 81 81 MG 81 MG t} 81 MG Furosemide Furosemide No 1{table BID Furosemide 40 MG 40 MG t} 40 MG Xyzal Xyzal No Xyzal Eplerenone Eplerenone No 1{table QD Eplerenone 25 MG 25 MG t} 25 MG Xifaxan 550 Xifaxan 550 No 1{table BID Xifaxan MG MG t} 550 MG Metoprolol Metoprolol No 1{table BID Metoprolol Tartrate Tartrate t_with_ Tartrate 100 MG 100 MG food} 100 MG Atorvastati Atorvastati No 1{table QD Atorvastat n Calcium n Calcium t} in Calcium 10 MG 10 MG 10 MG Aspirin 81 Aspirin 81 No 1{table QD Aspirin 81 81 MG 81 MG t} 81 MG Xifaxan 550 Xifaxan 550 No 1{table BID Xifaxan MG MG t} 550 MG Constulose Constulose No Constulose 10 GM/15ML 10 GM/15ML 10 GM/15ML Omeprazole Omeprazole No QD Omeprazole 40 MG 40 MG 40 MG amLODIPine amLODIPine No amLODIPine Besylate 5 Besylate 5 Besylate 5 MG MG MG Metoprolol Metoprolol No Metoprolol Tartrate Tartrate Tartrate 100 MG 100 MG 100 MG Lactulose Lactulose No 15{ml} QD Lactulose 10 GM/15ML 10 GM/15ML 10 GM/15ML Furosemide Furosemide No 1{table BID Furosemide 40 MG 40 MG t} 40 MG Atorvastati Atorvastati No Atorvastat n Calcium n Calcium in Calcium 10 MG 10 MG 10 MG Breo Breo No 1{puff} QD Breo Ellipta Ellipta Ellipta 100-25 100-25 100-25 MCG/INH MCG/INH MCG/INH Vitamin D3 Vitamin D3 No Vitamin D3 1.25 MG 1.25 MG 1.25 MG (13001 UT) (21436 UT) (36336 UT) ProAir HFA ProAir HFA No 2{puffs ProAir HFA 108 (90 108 (90 _as_nee 108 (90 Base) Base) ded} Base) MCG/ACT MCG/ACT MCG/ACT Eplerenone Eplerenone No 1{table QD Eplerenone 25 MG 25 MG t} 25 MG Metoprolol Metoprolol No 1{table BID Metoprolol Tartrate Tartrate t_with_ Tartrate 100 MG 100 MG food} 100 MG Xyzal Xyzal No Xyzal Iron Iron No Iron (Ferrous (Ferrous (Ferrous Sulfate) Sulfate) Sulfate) Metoprolol Metoprolol No Metoprolol Tartrate Tartrate Tartrate 100 MG 100 MG 100 MG Eplerenone Eplerenone No Eplerenone 25 MG 25 MG 25 MG Xifaxan 550 Xifaxan 550 No 1{table BID Xifaxan MG MG t} 550 MG Albuterol Albuterol No Albuterol Sulfate Sulfate Sulfate 1.25 MG/3ML 1.25 MG/3ML 1.25 MG/3ML Atorvastati Atorvastati No 1{table QD Atorvastat n Calcium n Calcium t} in Calcium 10 MG 10 MG 10 MG Metoprolol Metoprolol No 1{table BID Metoprolol Tartrate Tartrate t_with_ Tartrate 100 MG 100 MG food} 100 MG Omeprazole Omeprazole No QD Omeprazole 40 MG 40 MG 40 MG Aspirin 81 Aspirin 81 No 1{table QD Aspirin 81 81 MG 81 MG t} 81 MG Furosemide Furosemide No 1{table BID Furosemide 40 MG 40 MG t} 40 MG Spironolact Spironolact No 1{table QD Spironolac one 50 MG one 50 MG t} tone 50 MG ProAir HFA ProAir HFA No 2{puffs ProAir HFA 108 (90 108 (90 _as_nee 108 (90 Base) Base) ded} Base) MCG/ACT MCG/ACT MCG/ACT guaiFENesin guaiFENesin No 10{ml_a guaiFENesi -Codeine -Codeine s_neede n-Codeine 100-10 100-10 d} 100-10 MG/5ML MG/5ML MG/5ML Xyzal Xyzal No Xyzal Lactulose Lactulose No 15{ml} QD Lactulose 10 GM/15ML 10 GM/15ML 10 GM/15ML Omeprazole Omeprazole No Omeprazole 40 MG 40 MG 40 MG Breo Breo No 1{puff} QD Breo Ellipta Ellipta Ellipta 100-25 100-25 100-25 MCG/INH MCG/INH MCG/INH Azithromyci Azithromyci No QD Azithromyc n 250 MG n 250 MG in 250 MG Azithromyci Azithromyci No QD Azithromyc n 250 MG n 250 MG in 250 MG guaiFENesin guaiFENesin No 10{ml_a guaiFENesi -Codeine -Codeine s_neede n-Codeine 100-10 100-10 d} 100-10 MG/5ML MG/5ML MG/5ML Iron Iron No Iron (Ferrous (Ferrous (Ferrous Sulfate) Sulfate) Sulfate) Breo Breo No 1{puff} QD Breo Ellipta Ellipta Ellipta 100-25 100-25 100-25 MCG/INH MCG/INH MCG/INH Metoprolol Metoprolol No Metoprolol Tartrate Tartrate Tartrate 100 MG 100 MG 100 MG Omeprazole Omeprazole No QD Omeprazole 40 MG 40 MG 40 MG Eplerenone Eplerenone No Eplerenone 25 MG 25 MG 25 MG Aspirin 81 Aspirin 81 No 1{table QD Aspirin 81 81 MG 81 MG t} 81 MG Metoprolol Metoprolol No 1{table BID Metoprolol Tartrate Tartrate t_with_ Tartrate 100 MG 100 MG food} 100 MG Xifaxan 550 Xifaxan 550 No 1{table BID Xifaxan MG MG t} 550 MG Xyzal Xyzal No Xyzal Constulose Constulose No Constulose 10 GM/15ML 10 GM/15ML 10 GM/15ML Furosemide Furosemide No 1{table BID Furosemide 40 MG 40 MG t} 40 MG ProAir HFA ProAir HFA No 2{puffs ProAir HFA 108 (90 108 (90 _as_nee 108 (90 Base) Base) ded} Base) MCG/ACT MCG/ACT MCG/ACT Spironolact Spironolact No 1{table QD Spironolac one 50 MG one 50 MG t} tone 50 MG Omeprazole Omeprazole No Omeprazole 40 MG 40 MG 40 MG Atorvastati Atorvastati No 1{table QD Atorvastat n Calcium n Calcium t} in Calcium 10 MG 10 MG 10 MG Lactulose Lactulose No 15{ml} QD Lactulose 10 GM/15ML 10 GM/15ML 10 GM/15ML Metoprolol Metoprolol No Metoprolol Tartrate Tartrate Tartrate 100 MG 100 MG 100 MG Azithromyci Azithromyci No QD Azithromyc n 250 MG n 250 MG in 250 MG Iron Iron No Iron (Ferrous (Ferrous (Ferrous Sulfate) Sulfate) Sulfate) Xyzal Xyzal No Xyzal Constulose Constulose No Constulose 10 GM/15ML 10 GM/15ML 10 GM/15ML Eplerenone Eplerenone No Eplerenone 25 MG 25 MG 25 MG Metoprolol Metoprolol No 1{table BID Metoprolol Tartrate Tartrate t_with_ Tartrate 100 MG 100 MG food} 100 MG Omeprazole Omeprazole No QD Omeprazole 40 MG 40 MG 40 MG Aspirin 81 Aspirin 81 No 1{table QD Aspirin 81 81 MG 81 MG t} 81 MG Spironolact Spironolact No 1{table QD Spironolac one 50 MG one 50 MG t} tone 50 MG Xifaxan 550 Xifaxan 550 No 1{table BID Xifaxan MG MG t} 550 MG Atorvastati Atorvastati No 1{table QD Atorvastat n Calcium n Calcium t} in Calcium 10 MG 10 MG 10 MG Lactulose Lactulose No 15{ml} QD Lactulose 10 GM/15ML 10 GM/15ML 10 GM/15ML Breo Breo No 1{puff} QD Breo Ellipta Ellipta Ellipta 100-25 100-25 100-25 MCG/INH MCG/INH MCG/INH Furosemide Furosemide No 1{table BID Furosemide 40 MG 40 MG t} 40 MG Omeprazole Omeprazole No Omeprazole 40 MG 40 MG 40 MG ProAir HFA ProAir HFA No 2{puffs ProAir HFA 108 (90 108 (90 _as_nee 108 (90 Base) Base) ded} Base) MCG/ACT MCG/ACT MCG/ACT guaiFENesin guaiFENesin No 10{ml_a guaiFENesi -Codeine -Codeine s_neede n-Codeine 100-10 100-10 d} 100-10 MG/5ML MG/5ML MG/5ML Metoprolol Metoprolol No Metoprolol Tartrate Tartrate Tartrate 100 MG 100 MG 100 MG Azithromyci Azithromyci No QD Azithromyc n 250 MG n 250 MG in 250 MG Iron Iron No Iron (Ferrous (Ferrous (Ferrous Sulfate) Sulfate) Sulfate) Xyzal Xyzal No Xyzal Constulose Constulose No Constulose 10 GM/15ML 10 GM/15ML 10 GM/15ML Eplerenone Eplerenone No Eplerenone 25 MG 25 MG 25 MG Metoprolol Metoprolol No 1{table BID Metoprolol Tartrate Tartrate t_with_ Tartrate 100 MG 100 MG food} 100 MG Omeprazole Omeprazole No QD Omeprazole 40 MG 40 MG 40 MG Aspirin 81 Aspirin 81 No 1{table QD Aspirin 81 81 MG 81 MG t} 81 MG Spironolact Spironolact No 1{table QD Spironolac one 50 MG one 50 MG t} tone 50 MG Xifaxan 550 Xifaxan 550 No 1{table BID Xifaxan MG MG t} 550 MG Atorvastati Atorvastati No 1{table QD Atorvastat n Calcium n Calcium t} in Calcium 10 MG 10 MG 10 MG Lactulose Lactulose No 15{ml} QD Lactulose 10 GM/15ML 10 GM/15ML 10 GM/15ML Breo Breo No 1{puff} QD Breo Ellipta Ellipta Ellipta 100-25 100-25 100-25 MCG/INH MCG/INH MCG/INH Furosemide Furosemide No 1{table BID Furosemide 40 MG 40 MG t} 40 MG Omeprazole Omeprazole No Omeprazole 40 MG 40 MG 40 MG ProAir HFA ProAir HFA No 2{puffs ProAir HFA 108 (90 108 (90 _as_nee 108 (90 Base) Base) ded} Base) MCG/ACT MCG/ACT MCG/ACT guaiFENesin guaiFENesin No 10{ml_a guaiFENesi -Codeine -Codeine s_neede n-Codeine 100-10 100-10 d} 100-10 MG/5ML MG/5ML MG/5ML Metoprolol Metoprolol No Tartrate Tartrate 100 MG 100 MG Azithromyci Azithromyci No QD n 250 MG n 250 MG amLODIPine amLODIPine No Besylate 5 Besylate 5 MG MG Xyzal Xyzal No Constulose Constulose No 10 GM/15ML 10 GM/15ML Iron Iron No (Ferrous (Ferrous Sulfate) Sulfate) Metoprolol Metoprolol No 1{table BID Tartrate Tartrate t_with_ 100 MG 100 MG food} Omeprazole Omeprazole No QD 40 MG 40 MG Aspirin 81 Aspirin 81 No 1{table QD 81 MG 81 MG t} Spironolact Spironolact No 1{table QD one 50 MG one 50 MG t} Xifaxan 550 Xifaxan 550 No 1{table BID MG MG t} Atorvastati Atorvastati No 1{table QD n Calcium n Calcium t} 10 MG 10 MG Lactulose Lactulose No 15{ml} QD 10 GM/15ML 10 GM/15ML Breo Breo No 1{puff} QD Ellipta Ellipta 100-25 100-25 MCG/INH MCG/INH Furosemide Furosemide No 1{table BID 40 MG 40 MG t} Eplerenone Eplerenone No 25 MG 25 MG Omeprazole Omeprazole No 40 MG 40 MG ProAir HFA ProAir HFA No 2{puffs 108 (90 108 (90 _as_nee Base) Base) ded} MCG/ACT MCG/ACT guaiFENesin guaiFENesin No 10{ml_a -Codeine -Codeine s_neede 100-10 100-10 d} MG/5ML MG/5ML Lactulose Lactulose No 15{ml} QD Lactulose 10 GM/15ML 10 GM/15ML 10 GM/15ML Aspirin 81 Aspirin 81 No 1{table QD Aspirin 81 81 MG 81 MG t} 81 MG Breo Breo No 1{puff} QD Breo Ellipta Ellipta Ellipta 100-25 100-25 100-25 MCG/INH MCG/INH MCG/INH ProAir HFA ProAir HFA No 2{puffs ProAir HFA 108 (90 108 (90 _as_nee 108 (90 Base) Base) ded} Base) MCG/ACT MCG/ACT MCG/ACT Metoprolol Metoprolol No 1{table BID Metoprolol Tartrate Tartrate t_with_ Tartrate 100 MG 100 MG food} 100 MG Atorvastati Atorvastati No 1{table QD Atorvastat n Calcium n Calcium t} in Calcium 10 MG 10 MG 10 MG Xyzal Xyzal No Xyzal Xifaxan 550 Xifaxan 550 No 1{table BID Xifaxan MG MG t} 550 MG Furosemide Furosemide No 1{table BID Furosemide 40 MG 40 MG t} 40 MG Spironolact Spironolact No 1{table QD Spironolac one 50 MG one 50 MG t} tone 50 MG Omeprazole Omeprazole No QD Omeprazole 40 MG 40 MG 40 MG Metoprolol Metoprolol No Metoprolol Tartrate Tartrate Tartrate 100 MG 100 MG 100 MG Xyzal Xyzal No Xyzal amLODIPine amLODIPine No amLODIPine Besylate 5 Besylate 5 Besylate 5 MG MG MG Eplerenone Eplerenone No Eplerenone 25 MG 25 MG 25 MG Aspirin 81 Aspirin 81 No 1{table QD Aspirin 81 81 MG 81 MG t} 81 MG Xifaxan 550 Xifaxan 550 No 1{table BID Xifaxan MG MG t} 550 MG ProAir HFA ProAir HFA No 2{puffs ProAir HFA 108 (90 108 (90 _as_nee 108 (90 Base) Base) ded} Base) MCG/ACT MCG/ACT MCG/ACT Lactulose Lactulose No 15{ml} QD Lactulose 10 GM/15ML 10 GM/15ML 10 GM/15ML Azithromyci Azithromyci No QD Azithromyc n 250 MG n 250 MG in 250 MG guaiFENesin guaiFENesin No 10{ml_a guaiFENesi -Codeine -Codeine s_neede n-Codeine 100-10 100-10 d} 100-10 MG/5ML MG/5ML MG/5ML Metoprolol Metoprolol No 1{table BID Metoprolol Tartrate Tartrate t_with_ Tartrate 100 MG 100 MG food} 100 MG Furosemide Furosemide No Furosemide 40 MG 40 MG 40 MG Iron Iron No Iron (Ferrous (Ferrous (Ferrous Sulfate) Sulfate) Sulfate) Omeprazole Omeprazole No QD Omeprazole 40 MG 40 MG 40 MG Breo Breo No 1{puff} QD Breo Ellipta Ellipta Ellipta 100-25 100-25 100-25 MCG/INH MCG/INH MCG/INH Atorvastati Atorvastati No 1{table QD Atorvastat n Calcium n Calcium t} in Calcium 10 MG 10 MG 10 MG Atorvastati Atorvastati No Atorvastat n Calcium n Calcium in Calcium 10 MG 10 MG 10 MG Omeprazole Omeprazole No Omeprazole 40 MG 40 MG 40 MG Furosemide Furosemide No 1{table BID Furosemide 40 MG 40 MG t} 40 MG Spironolact Spironolact No 1{table QD Spironolac one 50 MG one 50 MG t} tone 50 MG Constulose Constulose No Constulose 10 GM/15ML 10 GM/15ML 10 GM/15ML Aspirin 81 Aspirin 81 No 1{table QD Aspirin 81 81 MG 81 MG t} 81 MG Xyzal Xyzal No Xyzal Atorvastati Atorvastati No Atorvastat n Calcium n Calcium in Calcium 10 MG 10 MG 10 MG ProAir HFA ProAir HFA No 2{puffs ProAir HFA 108 (90 108 (90 _as_nee 108 (90 Base) Base) ded} Base) MCG/ACT MCG/ACT MCG/ACT Xifaxan 550 Xifaxan 550 No 1{table BID Xifaxan MG MG t} 550 MG Breo Breo No 1{puff} QD Breo Ellipta Ellipta Ellipta 100-25 100-25 100-25 MCG/INH MCG/INH MCG/INH Lactulose Lactulose No 15{ml} QD Lactulose 10 GM/15ML 10 GM/15ML 10 GM/15ML Azithromyci Azithromyci No QD Azithromyc n 250 MG n 250 MG in 250 MG guaiFENesin guaiFENesin No 10{ml_a guaiFENesi -Codeine -Codeine s_neede n-Codeine 100-10 100-10 d} 100-10 MG/5ML MG/5ML MG/5ML Metoprolol Metoprolol No Metoprolol Tartrate Tartrate Tartrate 100 MG 100 MG 100 MG Constulose Constulose No Constulose 10 GM/15ML 10 GM/15ML 10 GM/15ML Iron Iron No Iron (Ferrous (Ferrous (Ferrous Sulfate) Sulfate) Sulfate) Eplerenone Eplerenone No Eplerenone 25 MG 25 MG 25 MG amLODIPine amLODIPine No amLODIPine Besylate 5 Besylate 5 Besylate 5 MG MG MG Omeprazole Omeprazole No Omeprazole 40 MG 40 MG 40 MG Furosemide Furosemide No 1{table BID Furosemide 40 MG 40 MG t} 40 MG Spironolact Spironolact No 1{table QD Spironolac one 50 MG one 50 MG t} tone 50 MG Furosemide Furosemide No Furosemide 40 MG 40 MG 40 MG Aspirin 81 Aspirin 81 No 1{table QD Aspirin 81 81 MG 81 MG t} 81 MG ProAir HFA ProAir HFA No 2{puffs ProAir HFA 108 (90 108 (90 _as_nee 108 (90 Base) Base) ded} Base) MCG/ACT MCG/ACT MCG/ACT Furosemide Furosemide No 1{table BID Furosemide 40 MG 40 MG t} 40 MG Lactulose Lactulose No 15{ml} QD Lactulose 10 GM/15ML 10 GM/15ML 10 GM/15ML Xifaxan 550 Xifaxan 550 No 1{table BID Xifaxan MG MG t} 550 MG Spironolact Spironolact No 1{table QD Spironolac one 50 MG one 50 MG t} tone 50 MG Omeprazole Omeprazole No QD Omeprazole 40 MG 40 MG 40 MG Xyzal Xyzal No Xyzal Metoprolol Metoprolol No 1{table BID Metoprolol Tartrate Tartrate t_with_ Tartrate 100 MG 100 MG food} 100 MG Breo Breo No 1{puff} QD Breo Ellipta Ellipta Ellipta 100-25 100-25 100-25 MCG/INH MCG/INH MCG/INH Atorvastati Atorvastati No 1{table QD Atorvastat n Calcium n Calcium t} in Calcium 10 MG 10 MG 10 MG Aspirin 81 Aspirin 81 No 1{table QD Aspirin 81 81 MG 81 MG t} 81 MG ProAir HFA ProAir HFA No 2{puffs ProAir HFA 108 (90 108 (90 _as_nee 108 (90 Base) Base) ded} Base) MCG/ACT MCG/ACT MCG/ACT Furosemide Furosemide No 1{table BID Furosemide 40 MG 40 MG t} 40 MG Lactulose Lactulose No 15{ml} QD Lactulose 10 GM/15ML 10 GM/15ML 10 GM/15ML Xifaxan 550 Xifaxan 550 No 1{table BID Xifaxan MG MG t} 550 MG Spironolact Spironolact No 1{table QD Spironolac one 50 MG one 50 MG t} tone 50 MG Omeprazole Omeprazole No QD Omeprazole 40 MG 40 MG 40 MG Xyzal Xyzal No Xyzal Metoprolol Metoprolol No 1{table BID Metoprolol Tartrate Tartrate t_with_ Tartrate 100 MG 100 MG food} 100 MG Breo Breo No 1{puff} QD Breo Ellipta Ellipta Ellipta 100-25 100-25 100-25 MCG/INH MCG/INH MCG/INH Atorvastati Atorvastati No 1{table QD Atorvastat n Calcium n Calcium t} in Calcium 10 MG 10 MG 10 MG Xyzal Xyzal No Xyzal Atorvastati Atorvastati No Atorvastat n Calcium n Calcium in Calcium 10 MG 10 MG 10 MG Lactulose Lactulose No 15{ml} QD Lactulose 10 GM/15ML 10 GM/15ML 10 GM/15ML Omeprazole Omeprazole No QD Omeprazole 40 MG 40 MG 40 MG ProAir HFA ProAir HFA No 2{puffs ProAir HFA 108 (90 108 (90 _as_nee 108 (90 Base) Base) ded} Base) MCG/ACT MCG/ACT MCG/ACT Spironolact Spironolact No 1{table QD Spironolac one 50 MG one 50 MG t} tone 50 MG Furosemide Furosemide No 1{table BID Furosemide 40 MG 40 MG t} 40 MG Constulose Constulose No Constulose 10 GM/15ML 10 GM/15ML 10 GM/15ML Aspirin 81 Aspirin 81 No 1{table QD Aspirin 81 81 MG 81 MG t} 81 MG Xifaxan 550 Xifaxan 550 No 1{table BID Xifaxan MG MG t} 550 MG Breo Breo No 1{puff} QD Breo Ellipta Ellipta Ellipta 100-25 100-25 100-25 MCG/INH MCG/INH MCG/INH Metoprolol Metoprolol No 1{table BID Metoprolol Tartrate Tartrate t_with_ Tartrate 100 MG 100 MG food} 100 MG Xyzal Xyzal No Xyzal Atorvastati Atorvastati No Atorvastat n Calcium n Calcium in Calcium 10 MG 10 MG 10 MG Lactulose Lactulose No 15{ml} QD Lactulose 10 GM/15ML 10 GM/15ML 10 GM/15ML Omeprazole Omeprazole No QD Omeprazole 40 MG 40 MG 40 MG ProAir HFA ProAir HFA No 2{puffs ProAir HFA 108 (90 108 (90 _as_nee 108 (90 Base) Base) ded} Base) MCG/ACT MCG/ACT MCG/ACT Spironolact Spironolact No 1{table QD Spironolac one 50 MG one 50 MG t} tone 50 MG Furosemide Furosemide No 1{table BID Furosemide 40 MG 40 MG t} 40 MG Constulose Constulose No Constulose 10 GM/15ML 10 GM/15ML 10 GM/15ML Aspirin 81 Aspirin 81 No 1{table QD Aspirin 81 81 MG 81 MG t} 81 MG Xifaxan 550 Xifaxan 550 No 1{table BID Xifaxan MG MG t} 550 MG Breo Breo No 1{puff} QD Breo Ellipta Ellipta Ellipta 100-25 100-25 100-25 MCG/INH MCG/INH MCG/INH Metoprolol Metoprolol No 1{table BID Metoprolol Tartrate Tartrate t_with_ Tartrate 100 MG 100 MG food} 100 MG Atorvastati Atorvastati No Atorvastat n Calcium n Calcium in Calcium 10 MG 10 MG 10 MG Constulose Constulose No Constulose 10 GM/15ML 10 GM/15ML 10 GM/15ML Spironolact Spironolact No 1{table QD Spironolac one 50 MG one 50 MG t} tone 50 MG Omeprazole Omeprazole No QD Omeprazole 40 MG 40 MG 40 MG Xifaxan 550 Xifaxan 550 No 1{table BID Xifaxan MG MG t} 550 MG Breo Breo No 1{puff} QD Breo Ellipta Ellipta Ellipta 100-25 100-25 100-25 MCG/INH MCG/INH MCG/INH ProAir HFA ProAir HFA No 2{puffs ProAir HFA 108 (90 108 (90 _as_nee 108 (90 Base) Base) ded} Base) MCG/ACT MCG/ACT MCG/ACT Eplerenone Eplerenone No 1{table QD Eplerenone 25 MG 25 MG t} 25 MG Lactulose Lactulose No 15{ml} QD Lactulose 10 GM/15ML 10 GM/15ML 10 GM/15ML Metoprolol Metoprolol No Metoprolol Tartrate Tartrate Tartrate 100 MG 100 MG 100 MG Atorvastati Atorvastati No 1{table QD Atorvastat n Calcium n Calcium t} in Calcium 10 MG 10 MG 10 MG Xyzal Xyzal No Xyzal Lactulose Lactulose No Lactulose 10 GM/15ML 10 GM/15ML 10 GM/15ML Metoprolol Metoprolol No 1{table BID Metoprolol Tartrate Tartrate t_with_ Tartrate 100 MG 100 MG food} 100 MG Omeprazole Omeprazole No QD Omeprazole 40 MG 40 MG 40 MG Furosemide Furosemide No 1{table BID Furosemide 40 MG 40 MG t} 40 MG Aspirin 81 Aspirin 81 No 1{table QD Aspirin 81 81 MG 81 MG t} 81 MG amLODIPine amLODIPine No amLODIPine Besylate 5 Besylate 5 Besylate 5 MG MG MG Atorvastati Atorvastati No Atorvastat n Calcium n Calcium in Calcium 10 MG 10 MG 10 MG Immunizations Ordered Filled Immunization Date Status Comments [facility] e Immunization Name Name Pneumovax (PPSV23) Pneumovax (PPSV23) 2022-03-25 [facility]00 [facility] Pneumovax (PPSV23) Pneumovax (PPSV23) 2022-03-25 Completed [facility] 15:04:00 [facility] Pneumovax (PPSV23) Pneumovax (PPSV23) 2022-03-25 Completed [facility] 15:04:00 [facility] Pneumovax (PPSV23) Pneumovax (PPSV23) 2022-03-25 Completed [facility] 15:04:00 [facility] Pneumovax (PPSV23) Pneumovax (PPSV23) 2022-03-25 Completed [facility] 15:04:00 [facility] Pneumovax (PPSV23) Pneumovax (PPSV23) 2022-03-25 Completed [facility] 15:04:00 [facility] Pneumovax (PPSV23) Pneumovax (PPSV23) 2022-03-25 Completed [facility] 15:04:00 [facility] Pneumovax (PPSV23) Pneumovax (PPSV23) 2022-03-25 Completed [facility] 15:04:00 [facility] Pneumovax (PPSV23) Pneumovax (PPSV23) 2022-03-25 Completed [facility] 15:04:00 [facility] Pneumovax (PPSV23) Pneumovax (PPSV23) 2022-03-25 Completed [facility] 15:04:00 [facility] Pneumovax (PPSV23) Pneumovax (PPSV23) 2022-03-25 Completed [facility] 15:04:00 [facility] FluAD FluAD 2021-10-15 Completed [facility] - 13:16:00 [facility] FluAD FluAD 2021-10-15 Completed [facility] - 13:16:00 [facility] FluAD FluAD 2021-10-15 Completed [facility] 13:16:00 [facility] FluAD FluAD 2021-10-15 Completed [facility] 13:16:00 [facility] FluAD FluAD 2021-10-15 Completed [facility] - 13:16:00 [facility] FluAD FluAD 2021-10-15 Completed [facility] - 13:16:00 [facility] FluAD FluAD 2021-10-15 Completed [facility] - 13:16:00 [facility] FluAD FluAD 2021-10-15 Completed [facility] - 13:16:00 [facility] FluAD FluAD 2021-10-15 Completed [facility] - 13:16:00 [facility] FluAD FluAD 2021-10-15 Completed [facility] - 13:16:00 [facility] FluAD FluAD 2021-10-15 Completed [facility] 13:16:00 [facility] FluAD FluAD 2021-10-15 Completed [facility] - 13:16:00 [facility] FluAD FluAD 2021-10-15 Completed [facility] - 13:16:00 [facility] FluAD FluAD 2020-08-05 Completed [facility] - 16:12:00 [facility] Prevnar 13 (PCV13) Prevnar 13 (PCV13) 2020-08-05 Completed [facility] - 16:12:00 [facility] FluAD FluAD 2020-08-05 Completed [facility] 16:12:00 [facility] Prevnar 13 (PCV13) Prevnar 13 (PCV13) 2020-08-05 Completed [facility] 16:12:00 [facility] FluAD FluAD 2020-08-05 Completed [facility] 16:12:00 [facility] Prevnar 13 (PCV13) Prevnar 13 (PCV13) 2020-08-05 Completed [facility] 16:12:00 [facility] FluAD FluAD 2020-08-05 Completed [facility] 16:12:00 [facility] Prevnar 13 (PCV13) Prevnar 13 (PCV13) 2020-08-05 Completed [facility] 16:12:00 [facility] FluAD FluAD 2020-08-05 Completed [facility] 16:12:00 [facility] Prevnar 13 (PCV13) Prevnar 13 (PCV13) 2020-08-05 Completed [facility] 16:12:00 [facility] FluAD FluAD 2020-08-05 Completed [facility] 16:12:00 [facility] Prevnar 13 (PCV13) Prevnar 13 (PCV13) 2020-08-05 Completed [facility] 16:12:00 [facility] FluAD FluAD 2020-08-05 Completed [facility] 16:12:00 [facility] Prevnar 13 (PCV13) Prevnar 13 (PCV13) 2020-08-05 Completed [facility] 16:12:00 [facility] FluAD FluAD 2020-08-05 Completed [facility] 16:12:00 [facility] Prevnar 13 (PCV13) Prevnar 13 (PCV13) 2020-08-05 Completed [facility] 16:12:00 [facility] FluAD FluAD 2020-08-05 Completed [facility] 16:12:00 [facility] Prevnar 13 (PCV13) Prevnar 13 (PCV13) 2020-08-05 Completed [facility] 16:12:00 [facility] FluAD FluAD 2020-08-05 Completed [facility] 16:12:00 [facility] Prevnar 13 (PCV13) Prevnar 13 (PCV13) 2020-08-05 Completed [facility] 16:12:00 [facility] FluAD FluAD 2020-08-05 Completed [facility] 16:12:00 [facility] Prevnar 13 (PCV13) Prevnar 13 (PCV13) 2020-08-05 Completed [facility] - 16:12:00 [facility] FluAD FluAD 2020-08-05 Completed [facility] 16:12:00 [facility] Prevnar 13 (PCV13) Prevnar 13 (PCV13) 2020-08-05 Completed [facility] 16:12:00 [facility] FluAD FluAD 2020-08-05 Completed [facility] 16:12:00 [facility] Prevnar 13 (PCV13) Prevnar 13 (PCV13) 2020-08-05 Completed [facility] 16:12:00 [facility] FluAD FluAD 2020-08-05 Completed [facility] 16:12:00 [facility] Prevnar 13 (PCV13) Prevnar 13 (PCV13) 2020-08-05 Completed [facility] 16:12:00 [facility] FluAD FluAD 2020-08-05 Completed [facility] 16:12:00 [facility] Prevnar 13 (PCV13) Prevnar 13 (PCV13) 2020-08-05 Completed [facility] - 16:12:00 [facility] FluAD FluAD 2020-08-05 Completed [facility] - 16:12:00 [facility] Prevnar 13 (PCV13) Prevnar 13 (PCV13) 2020-08-05 Completed [facility] - 16:12:00 [facility] FluAD FluAD 2020-08-05 Completed [facility] - 16:12:00 [facility] Prevnar 13 (PCV13) Prevnar 13 (PCV13) 2020-08-05 Completed [facility] - 16:12:00 [facility] FluAD FluAD 2020-08-05 Completed [facility] - 16:12:00 [facility] Prevnar 13 (PCV13) Prevnar 13 (PCV13) 2020-08-05 Completed [facility] - 16:12:00 [facility] FluAD FluAD 2020-08-05 Completed [facility] - 16:12:00 [facility] Prevnar 13 (PCV13) Prevnar 13 (PCV13) 2020-08-05 Completed [facility] - 16:12:00 [facility] Influenza High Dose 2020-02-22 Completed [facility] 00[facility] Influenza High Dose 2020-02-22 Completed [facility] 00[facility]00:00 [facility] Influenza High Dose 2020-02-22 Completed [facility] 00:00:00 [facility] Influenza High Dose 2020-02-22 Completed [facility] 00:00:00 [facility] Influenza High Dose 2020-02-22 Completed [facility] 00:00:00 [facility] Influenza High Dose 2020-02-22 Completed [facility] 00:00:00 [facility] Influenza High Dose 2020-02-22 Completed [facility] 00:00:00 [facility] Influenza High Dose 2020-02-22 Completed [facility] 00:00:00 [facility] Influenza High Dose 2020-02-22 Completed [facility] 00:00:00 [facility] Influenza High Dose 2020-02-22 Completed [facility] 00:00:00 [facility] Influenza High Dose 2020-02-22 Completed [facility] 00:00:00 [facility] Influenza High Dose 2020-02-22 Completed [facility] 00:00:00 [facility] Influenza High Dose 2020-02-22 Completed [facility] 00:00:00 [facility] Influenza High Dose 2020-02-22 Completed [facility] 00:00:00 [facility] Influenza High Dose 2020-02-22 Completed [facility] 00:00:00 [facility] Influenza High Dose 2020-02-22 Completed [facility] 00:00:00 [facility] Influenza High Dose 2020-02-22 Completed [facility] 00:00:00 [facility] Influenza High Dose 2020-02-22 Completed [facility] 00:00:00 [facility] Influenza High Dose 2020-02-22 Completed [facility] 00:00:00 [facility] Influenza High Dose 2020-02-22 Completed [facility] 00:00:00 [facility] Influenza High Dose 2020-02-22 Completed [facility] 00:00:00 [facility] Influenza High Dose 2020-02-22 Completed [facility] 00:00:00 [facility] Influenza High Dose 2020-02-22 Completed [facility] 00:00:00 [facility] Influenza High Dose 2020-02-22 Completed [facility] 00:00:00 [facility] Influenza High Dose 2020-02-22 Completed [facility] 00:00:00 [facility] Influenza High Dose 2020-02-22 Completed [facility] 00:00:00 [facility] Influenza High Dose 2020-02-22 Completed [facility] 00:00:00 [facility] Influenza High Dose 2020-02-22 Completed [facility] 00:00:00 [facility] Influenza High Dose 2020-02-22 Completed [facility] 00:00:00 [facility] Influenza High Dose 2020-02-22 Completed [facility] 00:00:00 [facility] Vital Signs Vital Name Observation Time Observation Value Comments Source height 2022-09-23 11:20:00 65.5 [in_i] [facility] weight 2022-09-23 11:20:00 192.6 [lb_av] [facility] temperature 2022-09-23 11:20:00 97.4 [degF] [facility] bmi 2022-09-23 11:20:00 31.56 kg/m2 [facility] oximetry 2022-09-23 11:20:00 98 % [facility] respiratory rate 2022-09-23 11:20:00 17 /min Comm on [facility] blood pressure 2022-09-23 11:20:00 135 mm[Hg] Common [facility] - systolic [facility] blood pressure 2022-09-23 11:20:00 74 mm[Hg] Common [facility] - diastolic [facility] height 2022-06-24 11:00:00 65.5 [in_i] [facility] weight 2022-06-24 11:00:00 185 [lb_av] [facility] temperature 2022-06-24 11:00:00 97.6 [degF] [facility] bmi 2022-06-24 11:00:00 30.31 kg/m2 [facility] oximetry 2022-06-24 11:00:00 100 % [facility] respiratory rate 2022-06-24 11:00:00 16 /min Comm on [facility] blood pressure 2022-06-24 11:00:00 132 mm[Hg] [facility] - systolic [facility] blood pressure 2022-06-24 11:00:00 74 mm[Hg] [facility] - diastolic [facility] height 2022-05-21 15:00:00 65.5 [in_i] [facility] weight 2022-05-21 15:00:00 186.2 [lb_av] [facility] temperature 2022-05-21 15:00:00 97.9 [degF] [facility] bmi 2022-05-21 15:00:00 30.51 kg/m2 [facility]22-[facility]-21 15:00:00 100 % [facility] respiratory rate 2022-05-21 15:00:00 18 /min Comm on [facility] blood pressure 2022-05-21 15:00:00 133 mm[Hg] Common [facility] - systolic [facility] blood pressure 2022-05-21 15:00:00 62 mm[Hg] Common [facility] - diastolic [facility] height 2022-03-25 13:40:00 65.5 [in_i] [facility] weight 2022-03-25 13:40:00 200.4 [lb_av] [facility] temperature 2022-03-25 13:40:00 98.1 [degF] [facility] bmi 2022-03-25 13:40:00 32.84 kg/m2 [facility] oximetry 2022-03-25 13:40:00 100 % [facility] respiratory rate 2022-03-25 13:40:00 18 /min Comm on [facility] blood pressure 2022-03-25 13:40:00 132 mm[Hg] Common [facility] - systolic [facility] blood pressure 2022-03-25 13:40:00 72 mm[Hg] Common [facility] - diastolic [facility] height 2022-03-25 14:00:00 65.5 [in_i] [facility] weight 2022-03-25 14:00:00 200.4 [lb_av] [facility] temperature 2022-03-25 14:00:00 98.1 [degF] [facility] bmi 2022-03-25 14:00:00 32.84 kg/m2 [facility] oximetry 2022-03-25 14:00:00 100 % [facility] respiratory rate 2022-03-25 14:00:00 18 /min Comm on [facility] blood pressure 2022-03-25 14:00:00 132 mm[Hg] Common [facility] - systolic [facility] blood pressure 2022-03-25 14:00:00 72 mm[Hg] Common [facility] diastolic [facility] height 2021-11-05 13:20:00 65.5 [in_i] Common [facility] weight 2021-11-05 13:20:00 201.6 [lb_av] [facility] temperature 2021-11-05 13:20:00 97.2 [degF] [facility] bmi 2021-11-05 13:20:00 33.03 kg/m2 [facility] oximetry 2021-11-05 13:20:00 100 % [facility] respiratory rate 2021-11-05 13:20:00 17 /min Comm on [facility] blood pressure 2021-11-05 13:20:00 135 mm[Hg] Common [facility] - systolic [facility] blood pressure 2021-11-05 13:20:00 72 mm[Hg] Common [facility] - diastolic [facility] height 2021-08-13 14:00:00 65.5 [in_i] [facility] weight 2021-08-13 14:00:00 213.4 [lb_av] Common [facility] temperature 2021-08-13 14:00:00 97.2 [degF] Common [facility] bmi 2021-08-13 14:00:00 34.97 kg/m2 [facility] oximetry 2021-08-13 14:00:00 99 % [facility] respiratory rate 2021-08-13 14:00:00 17 /min Comm on [facility] blood pressure 2021-08-13 14:00:00 132 mm[Hg] Common [facility] - systolic [facility] blood pressure 2021-08-13 14:00:00 70 mm[Hg] Common [facility] diastolic [facility] Systolic blood 2021-05-27 15:32:00 146 mm[Hg] Univer [facility]ity [facility] Diastolic blood 2021-05-27 15:32:00 50 mm[Hg] Unive rsity of pressure [facility] Heart rate 2021-05-27 15:32:00 62 /min [facility] Oxygen saturation in 2021-05-27 15:32:00 98 /min [facility] Arterial blood by [facility] Pulse oximetry Branch Body height 2021-05-27 14:28:00 165.1 cm [facility] Body weight 2021-05-27 14:28:00 99.791 kg [facility] BMI 2021-05-27 14:28:00 36.61 kg/m2 [facility] Systolic blood 2021-05-02 15:04:00 139 mm[Hg] Univer [facility]ity of pressure [facility] Diastolic blood 2021-05-02 15:04:00 74 mm[Hg] Unive [facility]ity of pressure [facility] Heart rate 2021-05-02 15:04:00 57 /min [facility] Body temperature 2021-05-02 15:04:00 36.5 Jami [facility] Branch Respiratory rate 2021-05-02 15:04:00 16 /min Univ ers[facility] of [facility] Body height 2021-05-02 15:04:00 165.1 cm [facility] Body weight 2021-05-02 15:04:00 91.173 kg [facility] BMI 2021-05-02 15:04:00 33.45 kg/m2 [facility] Oxygen saturation in 2021-05-02 15:04:00 100 /min University Arterial blood by [facility] Pulse oximetry Branch Systolic blood 2021-03-28 15:35:00 165 mm[Hg] Univer sity of pressure [facility] Diastolic blood 2021-03-28 15:35:00 58 mm[Hg] Unive rsity of pressure [facility] Heart rate 2021-03-28 15:35:00 56 /min [facility] Body temperature 2021-03-28 15:35:00 36.33 Jami [facility] Body height 2021-03-28 15:35:00 165.1 cm [facility] Body weight 2021-03-28 15:35:00 96.616 kg [facility] BMI 2021-03-28 15:35:00 35.45 kg/m2 [facility] Systolic blood 2021-01-29 16:57:00 142 mm[Hg] Univer sity of pressure [facility] Diastolic blood 2021-01-29 16:57:00 62 mm[Hg] Unive rsity of pressure [facility] Heart rate 2021-01-29 16:57:00 55 /min [facility]i [facility] of [facility] Body temperature 2021-01-29 16:57:00 36.44 Jami [facility] Respiratory rate 2021-01-29 16:57:00 18 /min Univ ers[facility] of [facility] Body height 2021-01-29 16:57:00 165.1 cm [facility] Body weight 2021-01-29 16:57:00 96.616 kg [facility] BMI 2021-01-29 16:57:00 35.45 kg/m2 [facility] Oxygen saturation in 2021-01-29 16:57:00 99 /min University of Arterial blood by [facility] Pulse oximetry Branch Systolic blood 2021-01-29 16:57:00 142 mm[Hg] Univer sity of pressure [facility] Diastolic blood 2021-01-29 16:57:00 62 mm[Hg] Unive rsity of pressure [facility] Heart rate 2021-01-29 16:57:00 55 /min [facility] Body temperature 2021-01-29 16:57:00 36.44 Jami [facility] Respiratory rate 2021-01-29 16:57:00 18 /min [facility] Body height 2021-01-29 16:57:00 165.1 cm [facility] Body weight 2021-01-29 16:57:00 96.616 kg [facility] BMI 2021-01-29 16:57:00 35.45 kg/m2 [facility] Oxygen saturation in 2021-01-29 16:57:00 99 /min [facility] Arterial blood by [facility] Pulse oximetry Branch Systolic blood 2021-01-03 20:08:00 179 mm[Hg] Univer sity of pressure [facility] Diastolic blood 2021-01-03 20:08:00 60 mm[Hg] Unive rsity of pressure [facility] Heart rate 2021-01-03 20:08:00 67 /min [facility] Oxygen saturation in 2021-01-03 20:08:00 92 /min [facility] Arterial blood by [facility]ett Pulse oximetry Branch Body weight 2021-01-03 19:10:00 88.905 kg [facility] BMI 2021-01-03 19:10:00 32.62 kg/m2 [facility] Systolic blood 2021-01-03 20:08:00 179 mm[Hg] Univer sity of pressure [facility] Diastolic blood 2021-01-03 20:08:00 60 mm[Hg] Unive rsity of pressure [facility] Heart rate 2021-01-03 20:08:00 67 /min [facility] Oxygen saturation in 2021-01-03 20:08:00 92 /min [facility] Arterial blood by [facility] Pulse oximetry Branch Body weight 2021-01-03 19:10:00 88.905 kg [facility] BMI 2021-01-03 19:10:00 32.62 kg/m2 [facility] Systolic blood 2020-11-19 19:10:00 217 mm[Hg] Univer sity of pressure [facility] Diastolic blood 2020-11-19 19:10:00 82 mm[Hg] Unive rsity of pressure [facility] Heart rate 2020-11-19 19:10:00 56 /min [facility] Respiratory rate 2020-11-19 19:10:00 16 /min [facility] Body weight 2020-11-19 19:10:00 84.823 kg [facility] BMI 2020-11-19 19:10:00 31.12 kg/m2 [facility] Oxygen saturation in 2020-11-19 19:10:00 98 /min [facility] of Arterial blood by [facility] Pulse oximetry Branch Systolic blood 2020-11-19 19:10:00 217 mm[Hg] Univer sity of pressure [facility] Diastolic blood 2020-11-19 19:10:00 82 mm[Hg] Unive rsity of pressure [facility] Heart rate 2020-11-19 19:10:00 56 /min [facility] Respiratory rate 2020-11-19 19:10:00 16 /min [facility] Body weight 2020-11-19 19:10:00 84.823 kg [facility] BMI 2020-11-19 19:10:00 31.12 kg/m2 [facility] Oxygen saturation in 2020-11-19 19:10:00 98 /min [facility] Arterial blood by [facility] Pulse oximetry Branch Systolic blood 2020-10-22 20:15:00 193 mm[Hg] Univer sity of pressure [facility] Diastolic blood 2020-10-22 20:15:00 86 mm[Hg] Unive rsity of pressure [facility] Heart rate 2020-10-22 20:15:00 63 /min [facility] Respiratory rate 2020-10-22 20:15:00 18 /min [facility] Oxygen saturation in 2020-10-22 20:15:00 96 /min [facility] Arterial blood by [facility] janett Pulse oximetry Branch Body temperature 2020-10-22 19:26:00 36.22 Jami [facility] Body height 2020-10-22 19:26:00 165.1 cm [facility] Body weight 2020-10-22 19:26:00 84.823 kg [facility] BMI 2020-10-22 19:26:00 31.12 kg/m2 [facility] Systolic blood 2020-10-22 20:15:00 193 mm[Hg] [facility] Diastolic blood 2020-10-22 20:15:00 86 mm[Hg] [facility] Heart rate 2020-10-22 20:15:00 63 /min [facility] Respiratory rate 2020-10-22 20:15:00 18 /min [facility] Oxygen saturation in 2020-10-22 20:15:00 96 /min University of Arterial blood by [facility] Pulse oximetry Branch Body temperature 2020-10-22 19:26:00 36.22 Jami [facility] Body height 2020-10-22 19:26:00 165.1 cm [facility] Body weight 2020-10-22 19:26:00 84.823 kg [facility] BMI 2020-10-22 19:26:00 31.12 kg/m2 [facility] Systolic blood 2020-02-25 15:00:00 174 mm[Hg] [facility] Diastolic blood 2020-02-25 15:00:00 61 mm[Hg] [facility] Heart rate 2020-02-25 15:00:00 68 /min [facility] Respiratory rate 2020-02-25 15:00:00 19 /min [facility] ersity of [facility] Oxygen saturation in 2020-02-25 15:00:00 99 /min University of Arterial blood by [facility] Pulse oximetry Branch Body temperature 2020-02-25 11:26:00 37.22 Jami [facility] ersity of [facility] Body height 2020-02-25 11:26:00 165.1 cm Universi ty of [facility] Body weight 2020-02-25 11:26:00 83.462 kg Universi [facility] of [facility] BMI 2020-02-25 11:26:00 30.62 kg/m2 Universi ty of [facility] Systolic blood 2020-02-22 12:42:00 151 mm[Hg] Univer sity of pressure [facility] Diastolic blood 2020-02-22 12:42:00 62 mm[Hg] Unive rsity of [facility] Heart rate 2020-02-22 12:42:00 56 /min Universi ty of [facility] Body temperature 2020-02-22 12:42:00 36.5 Jami [facility] Res[facility] 2020-02-22 12:42:00 18 /min [facility] ersity of [facility] Oxygen saturation in 2020-02-22 12:42:00 96 /min University of Arterial blood by [facility] Pulse oximetry Branch Body weight 2020-02-22 00:30:00 83.462 kg Universi [facility] of [facility] BMI 2020-02-22 00:30:00 30.62 kg/m2 Universi [facility] of [facility] Body height 2020-02-21 00:24:00 165.1 cm [facility]i [facility] of [facility] Procedures Procedure Date / Time Performing Clinician Source Performed IR 2021-05-02 15:09:28 Catracho Thornton [facility]PERITONECEN [facility] TESIS WITH IMAGING IR 2021-03-28 15:29:30 Catracho Thornton [facility] sity [facility] PARACENTESIS/PERITONECEN [facility] TESIS WITH IMAGING ASSIGNMENT OF BENEFITS 2021-03-28 13:44:31 Doctor Unassigned, No [facility] PHYSICIAN ORDERS 2021-03-21 05:01:00 Doctor Unassigned, No [facility] [id number] 2021-02-18 00:00:00 WEAKI [facility] [id number] 2021-02-15 00:00:00 UGBST [facility] [id number] 2021-02-15 00:00:00 UGBST [facility] IR 2021-01-29 16:42:00 Catracho Thornton [facility] PARACENTESIS/PERITONECEN [facility] [place] TESIS WITH IMAGING ASSIGNMENT OF BENEFITS 2021-01-29 15:10:15 Doctor Unassigned, No [facility] IR 2021-01-03 19:17:21 Catracho Thornton [facility]ENTESIS[facility] TESIS WITH IMAGING ASSIGNMENT OF BENEFITS 2021-01-03 17:46:32 Doctor Unassigned, No [facility] PHYSICIAN ORDERS 2020-12-25 06:01:00 Doctor Unassigned, No [facility] IR 2020-11-19 20:14:13 Catracho Thornton [facility] PARACENTESIS/PERITONECEN [facility] TESIS WITH IMAGING IR 2020-10-22 20:39:51 Catracho Thornton [facility] PARACENTESIS/PERITONECEN [facility] TESIS WITH IMAGING FERRITIN SERUM 2020-10-02 15:25:00 Catracho Thornton [facility] IRON 2020-10-02 15:25:00 Catracho Thornton [facility] TOTAL IRON BINDING 2020-10-02 15:25:00 Catracho Thornton [facility] HEPATIC FUNCTION PANEL 2020-10-02 15:25:00 Catracho Thornton [facility] ([id number]) (ALB,T.PRO,BILI Medical Branch T,BU/BC,ALT,AST,ALK PHOS) CBC WITH DIFF 2020-10-02 15:25:00 Catracho Thornton [facility] PROTHROMBIN TIME / INR 2020-10-02 15:25:00 Catracho Thornton [facility] ALPHA FETOPROTEIN 2020-10-02 15:25:00 Catracho Thornton [facility] HEPATITIS B SURFACE 2020-10-02 15:25:00 [facility] HEPATITIS B SURFACE 2020-10-02 15:25:00 [facility] ANTIGEN [facility] HCV ANTIBODY 2020-10-02 15:25:00 Catracho Thornton [facility] HBC ANTIBODY (IGM & IGG) 2020-10-02 15:25:00 Catracho Thornton [facility] HAV ANTIBODY (IGG AND 2020-10-02 15:25:00 Catracho Thornton [facility] IGM) [facility] PHYSICIAN ORDERS 2020-10-02 06:01:00 Doctor Unassigned, No [facility] AUTHORIZATION FOR 2020-03-21 05:01:00 Doctor Unassigned, No [facility] RELEASE [facility] CT HEAD WO CONTRAST 2020-02-25 13:41:27 Amber Nunez [facility] PROTHROMBIN TIME / INR 2020-02-25 12:44:00 Mavis Hernandez [facility] ACTIVATED PARTIAL 2020-02-25 12:44:00 Mavis Hernandez [facility] URINALYSIS 2020-02-25 12:25:00 Leonides Edwards [facility] ADC / LCC - DRUG SCREEN 2020-02-25 12:25:00 Leonides Edwards [facility] AMMONIA, PLASMA 2020-02-25 12:14:00 Leonides Edwards [facility] TROPONIN I 2020-02-25 11:46:00 Mavis Hernandez [facility] SALICYLATE 2020-02-25 11:46:00 Leonides Edwards [facility] LIPASE 2020-02-25 11:40:00 Ibikunle, Folusho [facility] HEPATIC FUNCTION PANEL 2020-02-25 11:40:00 RejiwaynejacqueMargoth reneetamaracynthia Francois [facility] ([id number]) (ALB,T.PRO,BILI Medical Branch T,BU/BC,ALT,AST,ALK PHOS) BASIC METABOLIC PANEL 2020-02-25 11:40:00 Leonides Edwards [facility] (NA, K, CL, CO2, Medical Branch GLUCOSE, BUN, CREATININE, CA) CBC WITH DIFFERENTIAL 2020-02-25 11:40:00 Leonides Edwards [facility] EKG-12 LEAD 2020-02-25 11:30:34 Grace Leonides Francois [facility] AMMONIA, PLASMA 2020-02-22 10:18:00 Fausto Zuñiga [facility] BASIC METABOLIC PANEL 2020-02-22 10:18:00 Fausto Zuñiga [facility] (NA, K, CL, CO2, Medical Branch GLUCOSE, BUN, CREATININE, CA) POCT GLUCOSE (AUTOMATED) 2020-02-22 01:06:00 Fausto Zuñiga [facility] POCT GLUCOSE (AUTOMATED) 2020-02-21 16:35:00 Fausto Zuñiga [facility] AMMONIA, PLASMA 2020-02-21 14:26:00 Fausto Zuñiga [facility] POCT GLUCOSE (AUTOMATED) 2020-02-21 12:35:00 Fausto Zuñiga [facility] BASIC METABOLIC PANEL 2020-02-21 09:00:00 Geno Montenegro [facility] (NA, K, CL, CO2, Medical Branch GLUCOSE, BUN, CREATININE, CA) CBC WITH DIFFERENTIAL 2020-02-21 09:00:00 Geno Montenegro Un [facility] POCT GLUCOSE (AUTOMATED) 2020-02-21 01:38:00 Fausto Zuñiga [facility] CORONAVIRUS COVID-19 2020-02-20 23:07:00 Hudson Santamaria [facility] EKG-12 LEAD 2020-02-20 22:28:58 Hudson Santamaria [facility] XR CHEST 2 VW 2020-02-20 22:20:53 Hudson Santamaria [facility] CT HEAD WO CONTRAST 2020-02-20 22:18:00 Hudson Santamaria [facility] NOTICE OF PRIVACY 2020-02-20 22:13:06 Doctor Unassigned, No [facility] PRACTICES Name Medical Branch LIPASE 2020-02-20 22:05:00 Hudson Santamaria [facility] MAGNESIUM 2020-02-20 22:05:00 Geno Montenegro [facility] AMMONIA, PLASMA 2020-02-20 22:05:00 Hudson Santamaria [facility] TROPONIN I 2020-02-20 22:05:00 Hudson Santamaria [facility] COMP. METABOLIC PANEL 2020-02-20 22:05:00 Hudson Santamaria [facility] ([id number]) [facility] LIPID PANEL 2020-02-20 22:05:00 Geno Montenegro [facility] [place] ([id number])(TOTAL [facility] CHOLESTEROL, TRIGLYCERIDES, HDL) CBC WITH DIFFERENTIAL 2020-02-20 22:05:00 Hudson Santamaria [facility] GLYCOSYLATED HEMOGLOBIN 2020-02-20 22:05:00 Lan [facility] (A1C) [facility] URINALYSIS 2020-02-20 22:05:00 Hudson Santamaria [facility] EKG-12 LEAD 2020-02-20 21:52:17 Hudson Santamaria [facility] Encounters Start End Encounter Admission Attending Care Care Encounter Source Date/Time Date/Time Type Type Clinicians Facility Department ID 2022-09-19 Outpatient Ledesma, [facility] [id number] Common 10:51:03 Jacek 80536 [facility] 2022-06-23 Outpatient Ledesma, STLMLC ST[facility] [id number] Common 10:57:01 Jacek [facility] 2022-06-05 Outpatient Ledesma, STLMLC STLC [id number] Common 11:06:02 Jacek [facility] 2022-05-21 Outpatient Ledesma, STLMLC STLC Common 13:20:02 Jacek 10423 [facility] 2021-12-11 Outpatient Ledesma, STLMLC STLMLC [id number] Common 13:53:57 Jacek 85775 [facility] 2021-12-11 Outpatient Ledesma, STLMLC STLMLC Common 13:09:15 Jacek [id number] [facility] 2021-12-11 Outpatient Ledesma, STLMLC STLMLC Common 13:08:13 Jacek [id number] [facility] 2021-12-11 Outpatient Ledesma, STLMLC STLMLC [id number] Common 12:48:42 Jacek 92953 [facility] 2021-12-11 Outpatient Ledesma, STLMLC STLMLC Common 12:47:29 Jacek 94069 [facility] 2021-12-11 Outpatient Ledesma, STLMLC STLMLC Common 12:38:39 Jaeck 24231 [facility] 2021-12-11 Outpatient Ledesma, STLMLC STLMLC Common 12:38:12 Jacek 46113 [facility] 2021-02-15 Inpatient HCAWU HCAWU [id number] [facility] 12:37:[address] [place] [address] 2022-12-11 2022-12-11 Outpatient ANKOMA-SEY, [facility] [id number] [place] 00:00:00 00:00:00 BRANDI 152 Method i 2022-12-11 2022-12-11 Outpatient ANKOMA-SEY, [facility] [id number] [place] 00:00:00 00:00:00 BRANDI 921 Method i 2022-12-11 2022-12-11 Outpatient ANKOMA-SEY, [facility] [id number] [place] 00:00:00 00:00:00 BRANDI 093 Method i 2022-12-11 2022-12-11 Outpatient EGWIM, [facility] [id number] [place] 00:00:00 00:00:00 YUDI Mcguireo timi 2022-11-26 2022-11-26 (TEL) STLMLC STLMLC [id number] Co mmon 00:00:00 00:00:00 [facility] 2022-10-01 2022-10-01 (TEL) STLMLC STLMLC [id number] Co mmon 00:00:00 00:00:00 [facility] 2022-09-26 2022-09-26 (TEL) STLMLC STLMLC [id number] Co mmon 00:00:00 00:00:00 [facility] 2022-09-23 2022-09-23 OFFICE STLMLC STLMLC [id number] Co mmon 00:00:00 00:00:00 VISIT [facility] ESTAB PT - CHI LEVEL 4 [facility] 2022-09-18 2022-09-18 (TEL) STLMLC STLMLC [id number] Co mmon 00:00:00 00:00:00 [facility] 2022-06-24 2022-06-24 OFFICE STLMLC STLMLC [id number] Co mmon 00:00:00 00:00:00 VISIT [facility] ESTAB PT - CHI LEVEL 4 [facility] 2022-06-24 2022-06-24 (TEL) STLMLC STLMLC [id number] Co mmon 00:00:00 00:00:00 [facility] 2022-06-05 2022-06-05 Outpatient AMBREEN_[facility] [id number] [place] 02:44:00 02:44:00 RAJANI 0721 da [facility] Outre h [facility] 2022-05-21 2022-05-21 (TEL) STLMLC STLMLC [id number] Co mmon 00:00:00 00:00:00 [facility] 2022-05-21 2022-05-21 OFFICE STLMLC STLMLC [id number] Co mmon 00:00:00 00:00:00 VISIT EST Spir it PT LEVEL 3 - [facility] 2022-05-15 2022-05-15 Outpatient SALINAS [facility] [id number] [place] 00:00:00 00:00:00 BRANDI [address] 2022-05-15 2022-05-15 Outpatient ANKOMA-SEY, [facility] [id number] [place] 00:00:00 00:00:00 BRANDI [address] 2022-05-15 2022-05-15 Outpatient EGWIM, [facility] [id number] [place] 00:00:00 00:00:00 CHUKWUMA 512 Metho di 2022-05-15 2022-05-15 Outpatient ANKOMA-SEY, [facility] [id number] [place] 00:00:00 00:00:00 BRANDI 955 Method i 2022-03-25 2022-03-25 OFFICE STLMLC STLMLC [id number] Co mmon 00:00:00 00:00:00 VISIT [facility] ESTAB PT - CHI LEVEL 4 [facility] 2022-03-25 2022-03-25 SUB ANNUAL STLMLC STLMLC [id number] Common 00:00:00 00:00:00 MCR [facility] WELLNESS - CHI VISIT [facility] 2022-02-06 2022-02-06 (TEL) STLMLC STLMLC [id number] Co mmon 00:00:00 00:00:00 [facility] 2022-01-27 2022-01-27 Outpatient SADHU, [facility] [id number] [place] 00:00:00 00:00:00 SAMIRA 807 Method i 2022-01-02 2022-01-02 Outpatient EGWIM, [facility] [id number] [place] 00:00:00 00:00:00 CHUKWUMA 304 Metho di 2022-01-02 2022-01-02 Outpatient EGWIM, [facility] [id number] [place] 00:00:00 00:00:00 CHUKWUMA 760 Metho di 2022-01-02 2022-01-02 Outpatient ANKOMA-SEY, [facility] [id number] [place] 00:00:00 00:00:00 BRANDI [address] 2021-11-05 2021-11-05 OFFICE STLMLC STLMLC [id number] Co mmon 00:00:00 00:00:00 VISIT [facility] ESTAB PT - CHI LEVEL 4 [facility] 2021-11-04 2021-11-04 (TEL) STLMLC STLMLC [id number] Co mmon 00:00:00 00:00:00 [facility] 2021-10-04 2021-10-04 Outpatient JEN, [facility] [id number] [place] 00:00:00 00:00:00 AKASH 137 Meth kiran 2021-09-30 2021-09-30 Outpatient FARIBA, [facility] [id number] [place] 00:00:00 00:00:00 IMAD 004 Method i 2021-09-30 2021-09-30 Outpatient FARIBA, [facility] [id number] [place] 00:00:00 00:00:00 IMAD 097 Method i 2021-09-23 2021-09-23 (TEL) STLMLC STLMLC [id number] Co mmon 00:00:00 00:00:00 [facility] 2021-09-17 2021-09-17 (TEL) STLMLC STLMLC [id number] Co mmon 00:00:00 00:00:00 [facility] 2021-09-16 2021-09-16 (TEL) STLMLC STLMLC [id number] Co mmon 00:00:00 00:00:00 [facility] 2021-09-10 2021-09-10 Outpatient SHERICE, [facility] [id number] [place] 00:00:00 00:00:00 RAFIK 817 Method i 2021-09-10 2021-09-10 Outpatient SHERICE, [facility] [id number] [place] 00:00:00 00:00:00 RAFIK 396 Method i 2021-09-10 2021-09-10 Outpatient SHERICE, [facility] [id number] [place] 00:00:00 00:00:00 RAFIK 803 Method i 2021-09-10 2021-09-10 Outpatient SHERICE, [facility] [id number] [place] 00:00:00 00:00:00 RAFIK 397 Method i 2021-09-10 2021-09-10 Outpatient SHERICE, [facility] H [id number] [place] 00:00:00 00:00:00 RAFIK [address] 2021-09-10 2021-09-10 Outpatient SHERICE, [facility] [id number] [place] 00:00:00 00:00:00 CHRISTIANOIK [address] 2021-09-09 2021-09-09 Outpatient SHERICE, [facility] [id number] [place] 00:00:00 00:00:00 RAFIK [address] 2021-09-09 2021-09-09 Outpatient SHERICE, [facility] [id number] [place] 00:00:00 00:00:00 CHRISTIANOIK 444 Method i 2021-09-09 2021-09-09 Outpatient SHERICE, [facility] [id number] [place] 00:00:00 00:00:00 CHRISTIANOIK 443 Method i 2021-09-09 2021-09-09 Outpatient SHERICE, [facility] H [id number] [place] 00:00:00 00:00:00 RAFIK 618 Method i 2021-09-09 2021-09-09 Outpatient SHERICE, [facility] H [id number] [place] 00:00:00 00:00:00 CHRISTIANOIK [address] 2021-09-09 2021-09-09 Outpatient SHERICE, [facility] [id number] [place] 00:00:00 00:00:00 RAFIK 616 Method i 2021-09-09 2021-09-09 Outpatient SHERICE, [facility] H [id number] [place] 00:00:00 00:00:00 RAFIK 619 Method i 2021-09-09 2021-09-09 Outpatient SHERICE, [facility] H [id number] [place] 00:00:00 00:00:00 RAFIK [address] 2021-09-09 2021-09-09 Outpatient SHERICE, [facility] [id number] [place] 00:00:00 00:00:00 CHRISTIANOIK [address] 2021-09-02 2021-09-02 (TEL) STLMLC STLMLC [id number] Co mmon 00:00:00 00:00:00 [facility] 2021-08-13 2021-08-13 OFFICE STLMLC STLMLC [id number] Co mmon 00:00:00 00:00:00 VISIT [facility] ESTAB PT - CHI LEVEL 4 [facility] 2021-05-30 2021-05-30 Outpatient R [facility] [id number] Univers 10:00:00 10:00:00 CATRACHO Henry [facility] 2021-05-27 2021-05-27 [facility] 1.2.840.114 [id number] Univers 08:14:50 23:59:00 Encounter Catracho henry [id number] [id number] [id number] [facility] 806 [place] 2021-05-27 2021-05-27 Size Worker Juan, Adc Lab Main [facility] 1.2.8 40.114 [id number] Univers 09:25:57 09:40:57 Visit Dez Abrams [id number] [id number] [phone] [facility] [address] [facility] [place] 2021-05-27 2021-05-27 Outpatient R [facility] [id number] Univers 09:00:00 09:00:00 CATRACHO Henry [facility] 2021-05-27 2021-05-27 Nurse 1, Adc Infusion Chair [facility] 1.2. 840.114 [id number] Univers 07:47:38 08:47:38 Visit Catracho Thornton 350.1.1 3.10 [id number] [phone] [facility] 053 Branch 2021-05-14 2021-05-14 Outpatient STLMLC STLMLC [id number] Common 00:00:00 00:00:00 [facility] 2021-05-14 2021-05-14 Outpatient STLMLC STLMLC [id number] Common 00:00:00 00:00:00 [facility] 2021-05-02 2021-05-02 [facility] 1.2.840.114 [id number] Univers 08:50:45 23:59:00 Encounter Catracho henry [id number] [id number] [phone] [facility] 806 Branch 2021-05-02 2021-05-02 Nurse 1, Adc Infusion Chair [facility] 1.2. 840.114 [id number] Univers 10:03:38 10:33:38 Visit Catracho Thornton 350.1.1 3.10 [place] [id number] [phone] [facility] 053 Branch 2021-05-02 2021-05-02 Size Worker Juan, Adc Lab Main [facility] 1.2.8 40.114 [id number] Univers 10:18:06 10:33:06 Visit Catracho Thornton 350.1.1 3.10 [id number] [phone] [facility] [address] [place] 2021-05-02 2021-05-02 Outpatient R [facility] [id number] Univers 10:00:00 10:00:00 CATRACHO Henry [facility] 2021-04-11 2021-04-11 Outpatient STLMLC STLMLC [id number] Common 00:00:00 00:00:00 [facility] 2021-04-11 2021-04-11 Outpatient STLMLC STLMLC [id number] Common 00:00:00 00:00:00 [facility] 2021-03-28 2021-03-28 Outpatient R [facility] [id number] Univers 08:45:11 23:59:00 CATRACHO Henry [facility] 2021-03-28 2021-03-28 [facility] 1.2.840.114 [id number] Univers 08:45:11 23:59:00 Encounter Catracho henry [id number] [place].2.[place] [id number] [facility] 806 Branch 2021-03-28 2021-03-28 Size Worker Juan, Adc Lab Main [facility] 1.2.8 40.114 [id number] Univers 10:30:35 10:45:35 Visit Catracho Thornton 350.1.1 3.10 [place] [phone] [facility] [address] [place] 2021-03-28 2021-03-28 Nurse 1, [facility] Infusion Nurse [facility] 1.2. 840.114 [id number] Univers 08:45:52 09:15:52 Visit Catracho Thornton 350.1.1 3.10 [place] [id number] [phone] [facility] 053 Branch 2021-03-28 2021-03-28 Orders Doctor OLAMIDE 1.2.840.114 [id number] Univers 00:00:00 00:00:00 Only Unassigned, RAFFY 350.1.13.10 ity of [place] [facility] 4.2.7.2.686 Dimitrios as [phone] [facility] 009 Branch 2021-03-21 2021-03-21 Orders Doctor QUIÑONEZ 1.2.840.114 [id number] Univers 00:00:00 00:00:00 Only Unassigned, RAFFY 350.1.13.10 ity of [place] [facility] 4.2.7.2.686 Dimitrios as [phone] [facility] 009 Branch 2021-03-07 2021-03-07 [facility] [id number] Common 00:00:00 00:00:00 [facility] 2021-03-04 2021-03-04 [facility]patient [facility] [id number] Common 00:00:00 00:00:00 [facility] 2021-03-04 2021-03-04 Outpatient STLMLC STLMLC [id number] Common 00:00:00 00:00:00 [facility] 2021-02-20 2021-02-20 Outpatient STLMLC STLMLC [id number] Common 00:00:00 00:00:00 [facility] 2021-02-14 2021-02-14 Outpatient STLMLC STLMLC [id number] Common 00:00:00 00:00:00 [facility] 2021-01-29 2021-01-29 [facility] 1.2.840.114 [id number] [facility] 10:00:00 23:59:00 Encounter Catracho henry [id number] [place] [id number] [place] [id number] [place] 2021-01-29 2021-01-29 [facility] [place] 1.2.840.114 [id number] 10:00:00 23:59:00 Encounter Catracho henry 350.1.13.10 [place] 4.2.7.2.686 [place] [id number] [id number] 2021-01-29 2021-01-29 Nurse 1, Adc Infusion Chair [facility] 1.2. 840.114 [id number] [facility] 11:42:41 12:42:41 Visit Catracho Thornton 350.1.1 3.10 [place].2.[place] [phone] [facility] 053 Branch 2021-01-29 2021-01-29 Nurse 1, Adc [facility] 1.2.840.114 [id number] 11:42:41 12:42:41 Visit Infusion [place] 350.1.13.10 Chair [place] 4.2.7.2.686 Surgical [id number] [place] 053 2021-01-29 2021-01-29 Size Worker Juan, Adc Lab Main [facility] 1.2.8 40.114 [id number] Univers 11:59:37 12:14:37 Visit Catracho Thornton Evy 350.1.1 3.10 [place] [phone] [facility] [address] [place] 2021-01-29 2021-01-29 Size Worker Kory Martinez [facility] 1.2.840.114 [id number] 11:59:37 12:14:37 Visit Lab Main Evy 350.1.13.10 [place] 4.2.7.2.686 Professio [phone] [address] 2021-01-29 2021-01-29 Outpatient R [facility] [id number] Univers 11:00:00 11:00:00 ity of [facility] 2021-01-29 2021-01-29 Orders Doctor OLAMIDE 1.2.840.114 [id number] [employer] 00:00:00 00:00:00 Only Unassigned, RAFFY 350.1.13.10 ity of [place] [facility] 4.2.7.2.686 Dimitrios as [phone] [address] 2021-01-29 2021-01-29 Orders Doctor OLAMIDE 1.2.840.114 [id number] 00:00:00 00:00:00 Only Unassigned, RAFFY 350.1.13.10 [place] [facility] [id number] [phone] [facility] 2021-01-22 2021-01-22 Outpatient [facility] [id number] Common 00:00:00 00:00:00 [facility] 2021-01-07 2021-01-07 Outpatient R [facility] [id number] Univers 00:00:00 00:00:00 CATRACHO Henry [facility] 2021-01-03 2021-01-03 Outpatient R [facility] [id number] Univers 11:47:32 23:59:00 CATRACHO Henry [facility] 2021-01-03 2021-01-03 [facility] 1.2.840.114 [id number] Univers 11:30:00 23:59:00 Encounter yue Catracho Stephens [place] 350.1.13.10 it[place] [phone] [address] 2021-01-03 2021-01-03 [facility] 1.2.840.114 [id number] 11:30:00 23:59:00 Encounter yue Catracho [place] 350.1.13.10 [place] 4.2.7.2.686 [place] [phone] [facility] 2021-01-03 2021-01-03 Nurse 1, [facility] Infusion Chair [facility] 1.2. 840.114 [id number] [facility] 13:06:59 14:06:59 Visit Catracho Thornton [place] 350.1.1 3.10 [place] [phone] [address] 2021-01-03 2021-01-03 Nurse 1, [facility] 1.2.840.114 [id number] 13:06:59 14:06:59 Visit Infusion [place] 350.1.13.10 Chair [place] 4.2.7.2.686 Surgical [phone] [place] [address] 2021-01-03 2021-01-03 Size Worker Juan, [facility] Lab Main [facility] 1.2.8 40.114 [id number] [facility] 13:43:10 13:58:10 Visit Catracho Thornton [place] 350.1.1 3.10 [place] of [place] [phone] Az dical [facility] 2021-01-03 2021-01-03 Size Worker Juan, [facility] 1.2.840.114 [id number] 13:43:10 13:58:10 Visit Lab Main [place] 350.1.13.10 [place] 4.2.7.2.686 Professio [phone] [address] 2021-01-03 2021-01-03 Orders Doctor QUIÑONEZ 1.2.840.114 [id number] Univers 00:00:00 00:00:00 Only Unassigned, RAFFY 350.1.13.10 ity of [place] [facility] 4.2.7.2.686 Dimitrios as [phone] [address] 2021-01-03 2021-01-03 Orders Doctor OLAMIDE 1.2.840.114 [id number] 00:00:00 00:00:00 Only Unassigned, RAFFY 350.1.13.10 [place] [id number] 2021-01-01 2021-01-01 Outpatient R [facility] [id number] Univers 12:00:00 12:00:00 ity of [facility] 2020-12-25 2020-12-25 Orders Doctor OLAMIDE Kovacs.2.840.114 [id number] Univers 00:00:00 00:00:00 Only Unassigned, RAFFY 350.1.13.10 ity of [place] [facility] 4.2.7.2.686 Dimitrios as [phone] [address] 2020-12-25 2020-12-25 Orders Doctor OLAMIDE 1.2.840.114 [id number] 00:00:00 00:00:00 Only Unassigned, RAFFY 350.1.13.10 [place] 4.2.7.2.686 [id number] 009 2020-12-17 2020-12-17 Outpatient R [facility] [id number] Univers 00:00:00 00:00:00 CATRACHO Henry [facility] 2020-11-19 2020-11-19 Outpatient R [facility] [id number] Univers 12:51:09 23:59:00 CATRACHO Henry [facility] 2020-11-19 2020-11-19 [facility] 1.2.840.114 [id number] Univers 12:51:09 23:59:00 Encounter Catracho henry 350.1.13.10 ity of [place]2.[place] [phone] Az sonia SALINAS [address] [place] [address] 2020-11-192020-11-19 [facility] 1.2.840.114 [id number] 12:51:09 23:59:00 Encounter e, Roror C SPECIALTY 350.1.13.10 CARE 4.2.7.2.686 CENTER AT [phone] [address] 2020-10-22 2020-10-22 [facility] 1.2.840.114 [id number] [facility] 12:49:53 23:59:00 Encounter e, Griselzar C SPECIALTY 350.1.13.10 ity of [place] AT [phone] Az dical [address] 2020-10-22 2020-10-22 [facility] 1.2.840.114 7 [id number] 12:49:53 23:59:00 Encounter e, Roror C SPECIALTY 350.1.13.10 CARE 4.2.7.2.686 CENTER AT [phone] [address] 2020-10-22 2020-10-22 Outpatient R [facility] [id number] Univers 00:00:00 00:00:00 CATRACHO Henry mable chapin em [facility] 2020-10-02 2020-10-02 Outpatient R [facility] [id number] Univers 10:00:00 10:00:00 CATRACHO Henry mable chapin em [facility] 2020-10-02 2020-10-02 Size Worker 2, [facility] Lab [facility] 1.2.840.114 [id number] [facility] 09:07:59 09:22:59 Visit OlyaCatracho [place] 350.1.1 3.10 [place]y of [place] [phone] [address] 2020-10-02 2020-10-02 Size Worker 2, Adc Lab [facility] 1.2.840.114 [id number] 09:07:59 09:22:59 Visit [place] 350.1.13.10 [place] 4.2.7.2.686 Professio [phone] [address] 2020-10-02 2020-10-02 Orders Doctor OLAMIDE 1.2.840.114 [id number] Univers 00:00:00 00:00:00 Only Unassigned, RAFFY 350.1.13.10 ity of [place] [facility] 4.2.7.2.686 Dimitrios as [phone] [facility] [address] [place] 2020-10-02 2020-10-02 Orders Doctor QUIÑONEZ 1.2.840.114 [id number] 00:00:00 00:00:00 Only Unassigned, RAFFY 350.1.13.10 [place] 4.2.7.2.686 [phone] [facility] 2020-03-21 2020-03-21 Orders Doctor OLAMIDE 1.2.840.114 [id number] Univers 00:00:00 00:00:00 Only Unassigned, RAFFY 350.1.13.10 ity of [place] [facility] 4.2.7.2.686 Dimitrios as [phone] [facility] [address] [place] 2020-02-25 2020-02-25 Emergency X [facility] ERT [id number] Univers 06:23:55 10:13:00 MAVIS ity of [facility] 2020-02-25 2020-02-25 Emergency [facility] 1.2.638.676 [id number] Univers 06:23:55 10:13:00 Mavis Edmond Ratliff 350.1.13.10 it[place] of [place] [phone] [facility] [address] [place] 2020-02-25 2020-02-25 Nurse OLAMIDE Pinedo 1.2.840.114 [id number] Univers 00:00:00 00:00:00 Triage Katlinanila AKBAR 350.1.13.10 it y of HOSPITAL 4.2.7.2.686 Dimitrios as [phone] [facility] [address] 2020-02-23 2020-02-23 Transition Kenia Beltran 1.2.840.114 [id number] Univers 00:00:00 00:00:00 of Care Jade [place] 350.1.13.10 i ty of [place]7.2.[place] [phone] [facility] [address] 2020-02-20 2020-02-22 Hospital Hudson Santamaria [facility] 1.2.840.11 [id number] Univers 16:43:26 11:11:00 Encounter Fausto Zuñiga 350.1.13.10 [facility] 4.2.7.2.686 [facility] [phone] [facility] [address] 2020-02-20 2020-02-22 Inpatient X FAUSTO ZUÑIGA [facility] [id number] [facility] 16:43:26 11:11:00 ity [facility] Results Test Description Test Time Test Comments Results Result Comments Source SARS-CoV-2 (COVID-19) RNA [Presence] in Respiratory sp ecimen by 2021-09-30 17:33:40 MARICEL with probe detection Test Item Value Reference Range Interpretation Comme nts SARS-CoV-2 (COVID-19) RNA [Presence] in Respiratory Not detected No t-Detected specimen by MARICEL with probe detection (test code = 27976-5) Whether patient is employed in a healthcare setting (test code = 10675-3) Whether the patient has symptoms related to condition of interest (test code = 50967-1) Patient was hospitalized because of this condition (test code = 38185-0) Whether the patient was admitted to intensive care unit (ICU) for condition of interest (test code = 02576-1) Whether patient resides in a congregate care setting (test code = 86591-8) [facility] RNA [Presence] in Respiratory specimen by MARICEL with probe [id number] 14:25:58 Test Item Value Reference Range Interpretation Comments SARS-CoV-2 (COVID-19) RNA Not detected Not-Detected [Presence] in Respiratory specimen by MARICEL with probe detection (test code = 96032-9) Whether patient is employed in a healthcare setting (test code = 27057-3) Whether the patient has symptoms related to condition of interest (test code = 50195-0) Patient was hospitalized because of this condition (test code = 47268-1) Whether the patient was admitted to intensive care unit (ICU) for condition of interest (test code = 63956-9) Whether patient resides in a congregate care setting (test code = 00861-0) [facility] PARACENTESIS/PERITONECENTESIS WITH [id number] 15:25:50EXAMINATION: IMAGE GUIDED PARACENTESIS. HISTORY/INDICATION: Therapeutic,Large Volume ?Please performlarge volumeparacentesis every 4 weeks for ascites SEDATION: The patient did not require conscious sedation for the procedure. TECHNIQUE: The risks (including infection and increased risk of bleedingdue to abnormal prothrombin time and platelets), benefits and alternativeswere discussed and informed consent was obtained. Prior to beginning the procedure, [place] "timeout" Protocol wasperformed to confirm the identity and the planned procedure. ?Maximumsterile barriers including sterile gloves, sterile drape and cutaneousantisepsis were used. The patient's abdomen was examined with ultrasound and a suitable pocket ofascitic fluid in the ?right side of the abdomen was identified. The skinoverlyingthis area was anesthetized with 1 percent lidocaine. A singlestep needle/catheter assembly were advanced into the ascitic fluid. Approximately 9170 mL of serous yellow fluid was drained. Several sampleshave been sent to pathology for various tests requested by the referringclinician. At the conclusionof the procedure the catheter was removed and a steriledressing applied to the site. ESTIMATED BLOODLOSS: Minimal. CONDITION: Stable. DISCHARGED TO: Outpatient surgery for intravenous albumin therapy.[facility] [place] Results Inft User - 05/02/2021 10:27 AM CDT EXAMINATION: IMAGE GUIDED PARACENTESIS. HISTORY/INDICATION: Therapeutic,Large Volume Please perform large volumeparacentesis every 4 weeks for ascitesSEDATION: The patient did not requi re conscious sedation for the procedure.TECHNIQUE: The risks (including infection and increased riskof bleedingdue to abnormal prothrombin time and platelets), benefits and alternativeswere discussed and informed consent was obtained. Prior to beginning the procedure, [place] "timeout" Protocol wasp erformed to confirm the identity and the planned procedure. Maximumsterile barriers including sterile gloves, sterile drape and cutaneousantisepsis were used. The patient's abdomen was examined with ultrasound and a suitable pocket ofascitic fluid in the right side of the abdomen was identified. The sk inoverlying this area was anesthetized with 1 percent lidocaine. A singlestep needle/catheter assembly were advanced into the ascitic fluid. Approximately 9170 mL of serous yellow fluid was drained. Several sampleshave been sent to pathology for various tests requested by the referringclinician.At theconclusion of the procedure the catheter was removed and a steriledressing applied to the site. ESTIMATED BLOOD LOSS: Minimal.CONDITION: Stable.DISCHARGED TO: Outpatient surgery [facility]intherapy[facility]ENTES[facility]/PERITONECENTESIS WITH [id number] 15:57:18EXAMINATION: IMAGE GUIDED PARACENTESIS. HISTORY/INDICATION: Other ascites standing order for paracentesis postopalbumin ? External orders Standing Order for Paracentesis Post OP Albumin SEDATION: The patient did not require conscious sedation for the procedure. TECHNIQUE: The risks (including infection and increased risk of bleedingdue to abnormal prothrombin time and platelets), benefits and alternat iveswere discussed and informed consent was obtained. Prior to beginning the procedure, [place] "timeout" Protocol wasperformed to confirm the identity and the planned procedure. ?Maximumsterile barriers including sterile gloves, sterile drape and cutaneousantisepsis were used. The patient's abdomenwas examined with ultrasound and a suitable pocket ofascitic fluid in the RLQ of the abdomen was identified. The skin overlyingthis area was anesthetized with 1 percent lidocaine. A single stepneedle/catheter assembly were advanced into the ascitic fluid. Approximately 10,170 mL of serous yellow fluidwas drained. Numeroussamples have been sent to pathology laboratory. At the conclusion of the procedure the catheter was removed and a steriledressing applied to the site. ESTIMATED BLOOD LOSS: Minimal. CONDITION: Stable. DISCHARGED TO: Outpatient surgery for intravenous albumin therapy. [facility] [place] Inft User - 03/28/2021 10:58 AM CDTEXAMINATION: IMAGE GUIDED PARACENTESIS. HISTORY/INDICATION: Other ascites standing order for paracentesis postopalbumin External orders Standing Order for Paracentesis Post OP AlbuminSEDATION: The patient did not require conscious sedation for the procedure.TECHNIQUE: The risks (including infection and increased risk of bleedingdue to abnormal prothrombin time and platelets), benefits and alternativeswere discussed and informed consent was obtained. Prior to beginning the procedure, [place] "timeout" Protocol wasperformed to confirm the identity and the planned procedure. Maximumsterile barriers including sterile gloves, sterile drape and cutaneousantisepsis were used. The patient's abdomen was examined with ultrasound and a suitable pocket ofascitic fluid in the RLQ of the abdomen was identified. The skin overlyingthis area was anesthetized with 1 percent lidocaine. A single stepneedle/catheter assembly were advanced into the ascitic fluid. Approximately 10,170 mL of serous yellow fluid was drained. Numeroussamples have been sent to pathology laboratory.At the conclusion of the procedure the catheter was removed and a steriledressing applied to the site. ESTIMATED BLOOD LOSS: Minimal.CONDITION: Stable.DISCHARGED TO: Outpatient surgery for intravenous albumin therapy.[facility] FLUID,[id number] 17:47:00 Test Item Value Reference Range Interpretation Comments FLUID,PARACENTESIS (test code = FLPARACENT) RUN DATE: 02/19/21 [facility] PAGE 1 RUN TIME: 1748 Specimen Inquiry RUN USER: INTERFACE PATIENT: RENA SINCLAIR [facility]: [facility] [place] #: [id number] AGE/SX: 70/F ROOM: [facility] RE02/15/21REG DR: Briana Walden MD : 50 BED: A DIS: 02/18/21 STATUS: DIS IN TLOC: SPEC #: [id number] RECD: 02/18/21 STATUS: FARSHAD STEEL #: [id number] HARIS: 02/18/21 [facility] DR: Briana Walden MD ENTERED: 02/18/21 SP TYPE: FLUID,PARC OTHR DR: DOES_NOT KNOW Self Referred Laisha Alexis MDORDERED: KYLEE CORMIER CODES: [id number] - ABDOMEN, NOS [id number] - ABDOMEN, NOS NO EVIDENCE OF [id number] - ABDOMEN, NOS CENTESIS, NOS COPIES TO: DOES_NOT KNOW [place] [address] [facility] [address] [place] [address] Laisha Alexis MD [address] [facility], [facility] [address] [place] [address] PROCEDURES: CB (02/18/21) SUREPATH (02/18/21) TISSUES: A. ABDOMEN, NOS - PARACENTESIS CPT CODES CPT CODE(S): 30311 , 45215 , , , , , FINAL DIAGNOSIS ASCITIC FLUID, PARACENTESIS WITH CELL BLOCK: - NEGATIVE FOR MALIGNANCY GROSS DESCRIPTION Paracentesis. Received are 1200 mL of cloudy, yellow fluid. One thin-layer slide is prepared for Pap stain. One cell block is prepared. /lien CONTINUED ON NEXT PAGE RUN DATE: 02/19/21 [place] - LAB PAGE 2 RUN TIME: 1748 Specimen Inquiry RUN USER: INTERFACE SPEC #: [id number] PATIENT: RENA SINCLAIR #[id number] (Continued) MICROSCOPIC DESCRIPTION Paracentesis. - Signed SIGNATURE ON FILE Silver Riley 02/19/21 1747 END OF REPORT - PARACENTESIS W [id number] 11:12:00 [facility] 1950 Sex: F Patient Name: RENA SINCLAIR Unit No: [id number] EXAMS: CPT CODE: [id number] PARACENTESIS W IMAGE [id number] EXAMINATION: IMAGE-GUIDED PARACENTESIS. LOCATION: B2. HISTORY: Ascites SEDATION: The patient did not require conscious sedation for the procedure. ANTIBIOTICS: None. Not indicated. CONTRAST: None. TECHNIQUE: The risks, benefits, and alternatives were discussed and informed consent was obtained. Prior to beginning the procedure, Gil[place] Protocol was used to confirm the patient's identity and planned procedure. Sterile barriers including cap, mask, hand hygiene, sterile gloves, sterile drape and cutaneous antisepsis were used. The patient's abdomen was examined with ultrasound and a suitable p ocket of ascitic fluid in the right lower quadrant was identified. The overlying skin was anesthetized with lidocaine. Using real-time ultrasound guidance, a one-step needle was advanced into the ascitic fluid. Approximately 10,100 mL of clear yellow fluid was drained. 75 g of 25% albumin was given. At the conclusion of the procedure, the catheter was removed and a sterile dressing applied to the site. ESTIMATED BLOOD LOSS: Less than 30 milliliters. COMPLICATIONS: None. DISCHARGED TO: Inpatient unit. FINDINGS: Ultrasound demonstrated a large amount of ascitic fluid. IMPRESSION: Successful image-guided paracentesis. can operator: Trudi Dhillon PA-C I have personally reviewed these images and agree with the physician operations administrative assistant's interpretation. at 1112 Reported and signed by: Laisha Alexis MD [facility] NAME: RENA SINCLAIR [id number] [address] PHYS: UGBST - UgMason [place] [address] : 1950 AGE: 70 SEX: F LOC: Z.620 A PHONE #: [phone] EXAM DATE: 02/18/2021TATUS: ADM IN FAX #: [phone] RADIOLOGY NO: PAGE 1 Signed Report (CONTINUED) Patient Name: RENA SINCLAIR Unit No: [id number] EXAMS: CPT CODE: [id number] PARACENTESIS W IMAGE [id number] (Continued) CC: Mason Ward MD Technologist: [employer] Transcrpt Date/Tm/Trnsp: 02/18/2021 (1112) t. SDR.KW9 Orig Print D/T: S: 02/18/2021 (1115) [facility] NAME: RENA SINCLAIR [id number] PHYS: [place] [address] : 1950 AGE: 70 SEX: F LOC: Z.620 A PHONE #: [phone] EXAM DATE: 02/18/2021 STATUS: ADM IN FAX #: [phone] RADIOLOGY NO: PAGE 2 Signed ReportGLUCOSE BEDSIDE [id number] 10:44:00 Test Item Value Reference Range Interpretation Comments GLUCOSE BEDSIDE TESTING (test code 259 MG/DL 60-99 H = GLUBED) COVID 19 Asymptomatic IH [id number] 09:16:00 Test Item Value Reference Range Interpretation Comments COVID 19 NEGATIVE Negative "Negative resul ts from Asymptomatic IH AG patients with symptom (test code = onset beyondfiv e days, COVNONPUIAG) should be treat ed as presumptive, andconfirmation with a molecular assay , if necessary forpa tient management may be performed. Nega tive results do notr ule out COVID-19 and sh ould not be used as the sole basisfor treatm ent or patient managem ent decisions, includinginfect ion control decisio ns. Negative result s should beconsidered in the context of a pa tients recent exposure s,history, and the presenc e of clinical signs and symptomsconsist ent with COVID-19.This t est detects both vi able andnon-viable S ARS-CoV and SARS CoV-2. Test performance dep endson the amount of virus (antigen) in the sample." GLUCOSE BEDSIDE [id number] 07:41:00 Test Item Value Reference Range Interpretation Comments GLUCOSE BEDSIDE TESTING (test code 157 MG/DL 60-99 H = GLUBED) BASIC METABOLIC [id number] 05:35:00 Test Item Value Reference Range Interpretation Comments SODIUM (test code = 137 MMOL/L 137-145 N NA) POTASSIUM (test code = 4.1 MMOL/L 3.5-5.1 N K) CHLORIDE (test code = 106 MMOL/L 98-107 N CL) CARBON DIOXIDE (test 29 MMOL/L 22-30 N code = CO2) GLUCOSE (test code = 143 MG/DL 74-106 H GLU) BLOOD UREA NITROGEN 26 MG/DL 7-17 H (test code = BUN) GLOMERULAR FILTRATION 44 Report ing units: RATE (test code = GFR) ml/mi n/1.73 m2 (Modified MDRD Formula)Referen ce Range: > or = 6 0 ml/min/1.73 m2 CREATININE (test code 1.20 MG/DL 0.52-1.04 H = CREAT) CALCIUM (test code = 8.1 MG/DL 8.4-10.2 L CA) LACTIC DEHYDROGENASE(LDH)2021-02-18 05:34:00 Test Item Value Reference Range Interpretation Comments LACTIC DEHYDROGENASE(LDH) (test 132 UNITS/L 120-246 N code = LDH) PROTHROMBIN [id number] 05:26:00 Test Item Value Reference Range Interpretation Comments PROTHROMBIN TIME PATIENT 15.5 9.5-12.7 H (test code = PTP) INTERNATIONAL NORMAL RATIO 1.4 0.86-1.14 H T he INR is to be used (test code = INR) only for m onitoring oral anticoagulantth erapy. INDICATION INR VALUE ------- ------- -----1. Prophylaxis, de ep venous thrombos is, including high risk surgery. 2.0 - 3.0 2. Prophylaxis, de ep venous thrombos is, hip surgery, treatm ent for deep venous thr ombosis or pulmonary prevention of s ystemic embolism in pat ients with valvular h eart disease, atrial fibrillation, t issue heart valve, or acute myocardial infa rction. 2.0 - 3.0 3. Mechanical pros thesis heart valves, recurrent syste eloise embolism. 3.0 - 4.5 HGB [id number] 05:17:00 Test Item Value Reference Range Interpretation Comments HEMOGLOBIN (test code = HGB) 7.1 G/DL 11.2-14.9 L HEMATOCRIT (test code = HCT) 24.2 % 33.2-43.5 L GLUCOSE BEDSIDE [id number] 21:29:00 Test Item Value Reference Range Interpretation Comments GLUCOSE BEDSIDE TESTING (test code 157 MG/DL 60-99 H = GLUBED) GLUCOSE BEDSIDE [id number] 16:33:00 Test Item Value Reference Range Interpretation Comments GLUCOSE BEDSIDE TESTING (test code 165 MG/DL 60-99 H = GLUBED) GLUCOSE BEDSIDE [id number] 11:19:00 Test Item Value Reference Range Interpretation Comments GLUCOSE BEDSIDE TESTING (test code 173 MG/DL 60-99 H = GLUBED) GLUCOSE BEDSIDE [id number] 07:38:00 Test Item Value Reference Range Interpretation Comments GLUCOSE BEDSIDE TESTING (test code 128 MG/DL 60-99 H = GLUBED) BASIC METABOLIC [id number] 06:59:00 Test Item Value Reference Range Interpretation Comments SODIUM (test code = 136 MMOL/L 137-145 L NA) POTASSIUM (test code = 3.9 MMOL/L 3.5-5.1 N K) CHLORIDE (test code = 107 MMOL/L 98-107 N CL) CARBON DIOXIDE (test 26 MMOL/L 22-30 N code = CO2) GLUCOSE (test code = 131 MG/DL 74-106 H GLU) BLOOD UREA NITROGEN 27 MG/DL 7-17 H (test code = BUN) GLOMERULAR FILTRATION 49 Report ing units: RATE (test code = GFR) ml/mi n/1.73 m2 (Modified MDRD Formula)Referen ce Range: > or = 6 0 ml/min/1.73 m2 CREATININE (test code 1.10 MG/DL 0.52-1.04 H = CREAT) CALCIUM (test code = 7.9 MG/DL 8.4-10.2 L CA) LACTIC DEHYDROGENASE(LDH)2021-02-17 06:59:00 Test Item Value Reference Range Interpretation Comments LACTIC DEHYDROGENASE(LDH) (test 143 UNITS/L 120-246 N code = LDH) HGB [id number] 06:32:00 Test Item Value Reference Range Interpretation Comments HEMOGLOBIN (test code = HGB) 7.3 G/DL 11.2-14.9 L HEMATOCRIT (test code = HCT) 24.4 % 33.2-43.5 L GLUCOSE BEDSIDE [id number] 20:53:00 Test Item Value Reference Range Interpretation Comments GLUCOSE BEDSIDE TESTING (test code 201 MG/DL 60-99 H = GLUBED) BASIC METABOLIC [id number] 07:14:00 Test Item Value Reference Range Interpretation Comments SODIUM (test code = 136 MMOL/L 137-145 L NA) POTASSIUM (test code = 4.1 MMOL/L 3.5-5.1 N K) CHLORIDE (test code = 107 MMOL/L 98-107 N CL) CARBON DIOXIDE (test 25 MMOL/L 22-30 N code = CO2) GLUCOSE (test code = 167 MG/DL 74-106 H GLU) BLOOD UREA NITROGEN 31 MG/DL 7-17 H (test code = BUN) GLOMERULAR FILTRATION 34 Report ing units: RATE (test code = GFR) ml/mi n/1.73 m2 (Modified MDRD Formula)Referen ce Range: > or = 6 0 ml/min/1.73 m2 CREATININE (test code 1.50 MG/DL 0.52-1.04 H = CREAT) CALCIUM (test code = 8.1 MG/DL 8.4-10.2 L CA) LACTIC DEHYDROGENASE(LDH)2021-02-16 07:14:00 Test Item Value Reference Range Interpretation Comments LACTIC DEHYDROGENASE(LDH) (test 131 UNITS/L 120-246 N code = LDH) THYROID STIMULATING [id number] 07:14:00 Test Item Value Reference Range Interpretation Comments THYROID STIMULATING 2.620 MIU/L 0.465-4.68 N Please b e aware that HORMONE (test code = bias re sults for TSH TSH) may occur forpa tient who are taking Biotin suppleme nts. T4 [id number] 07:13:00 Test Item Value Reference Range Interpretation Comments T4 FREE (test code = T4F) 1.4 NG/DL 0.78-2.19 N HGB 06:47:00 Test Item Value Reference Range Interpretation Comments HEMOGLOBIN (test code = HGB) 7.2 G/DL 11.2-14.9 L HEMATOCRIT (test code = HCT) 23.8 % 33.2-43.5 L BASIC METABOLIC [id number] 06:44:00 Test Item Value Reference Range Interpretation Comments SODIUM (test code = 136 MMOL/L 137-145 L NA) POTASSIUM (test code = 4.1 MMOL/L 3.5-5.1 N K) CHLORIDE (test code = 107 MMOL/L 98-107 N CL) CARBON DIOXIDE (test 25 MMOL/L 22-30 N code = CO2) GLUCOSE (test code = 167 MG/DL 74-106 H GLU) BLOOD UREA NITROGEN 31 MG/DL 7-17 H (test code = BUN) GLOMERULAR FILTRATION 34 Report ing units: RATE (test code = GFR) ml/mi n/1.73 m2 (Modified MDRD Formula)Referen ce Range: > or = 6 0 ml/min/1.73 m2 CREATININE (test code 1.50 MG/DL 0.52-1.04 H = CREAT) CALCIUM (test code = 8.1 MG/DL 8.4-10.2 L CA) LACTIC DEHYDROGENASE(LDH)2021-02-16 06:44:00 Test Item Value Reference Range Interpretation Comments LACTIC DEHYDROGENASE(LDH) (test 131 UNITS/L 120-246 N code = LDH) THYROID STIMULATING [id number] 06:44:00 Test Item Value Reference Range Interpretation Comments THYROID STIMULATING HORMONE (test code MIU/L 0.465-4.68 = TSH) GLUCOSE BEDSIDE [id number] 06:28:00 Test Item Value Reference Range Interpretation Comments GLUCOSE BEDSIDE TESTING (test code 174 MG/DL 60-99 H = GLUBED) VITAMIN [id number] 22:26:00 Test Item Value Reference Range Interpretation Comments VITAMIN B12 (test code = VITB12) 987 pg/mL 239-931 H [id number] 22:26:00 Test Item Value Reference Range Interpretation Comments FERRITIN (test code = VAUGHN) 12.3 NG/ML 11.1-264 N VITAMIN [id number] 22:11:00 Test Item Value Reference Range Interpretation Comments VITAMIN B12 (test code = VITB12) pg/mL 239-931 [id number] 22:11:00 Test Item Value Reference Range Interpretation Comments FERRITIN (test code = VAUGHN) 12.3 NG/ML 11.1-264 N FE W/TOTAL IRON BINDING CAP.2021-02-15 21:44:00 Test Item Value Reference Range Interpretation Comments SERUM IRON (test code = IRON) 35 MCG/DL 37-170 L TOTAL IRON BINDING CAPACITY (test 400 MCG/DL 265-497 N code = TIBC) IRON SATURATION (test code = 9 % 12-57 L FESAT) [id number] 21:35:00 Test Item Value Reference Range Interpretation Comments AMMONIA (test code = AMM) < 9 mcMOL/L 9-30 L FE W/TOTAL IRON BINDING CAP.2021-02-15 21:34:00 Test Item Value Reference Range Interpretation Comments SERUM IRON (test code = IRON) 35 MCG/DL 37-170 L TOTAL IRON BINDING CAPACITY (test MCG/DL 265-497 code = TIBC) IRON SATURATION (test code = FESAT) % 12-57 GLUCOSE BEDSIDE [id number] 20:37:00 Test Item Value Reference Range Interpretation Comments GLUCOSE BEDSIDE TESTING (test code 142 MG/DL 60-99 H = GLUBED) COMPREHENSIVE METABOLIC [id number] 12:57:00 Test Item Value Reference Range Interpretation Comments SODIUM (test code 138 MMOL/L 137-145 N = NA) POTASSIUM (test 4.3 MMOL/L 3.5-5.1 N code = K) CHLORIDE (test 107 MMOL/L 98-107 N code = CL) CARBON DIOXIDE 26 MMOL/L 22-30 N (test code = CO2) GLUCOSE (test 164 MG/DL 74-106 H code = GLU) BLOOD UREA 36 MG/DL 7-17 H NITROGEN (test code = BUN) GLOMERULAR 40 Reporting units : FILTRATION RATE ml/min/1.73 m2 (Modified (test code = GFR) MDRD Formu la)Reference Range: > or = 6 0 ml/min/1.73 m2 CREATININE (test 1.30 MG/DL 0.52-1.04 H code = CREAT) TOTAL PROTEIN 6.5 G/DL 6.3-8.2 N [facility] Clinical Diagnostic (test code = has made us haile re of PROT) newinformation regarding the potential i nterference ofEltrombopag ( a bone marrow stimulan t used to treatthrombocyt onmenia and aplastic anemia ) with specific assays on the Vitros 5600 of which Total Protein is one of thoseassays per formed in our lab.Carleye gisel testing perform ed at [facility] determined that Eltrombopag does interfere with Vitros Total Protein asfollowsEltrom bopag Interference fo r Vitros Product Total Protein:======= Eltrombopag Max Observed A vg. BiasConcentrati on Concentration Concentration== ==== 2.5 mg/dl 6.0 g/dl +0.41 +0.34 3.5 mg/dl 6.0 g /dl +0.50 +0.45 5 mg/dl 6 .0 g/dl +0.73 +0.65 2.5 mg/dl 8.0 g/dl +0.44 +0.4 1 3.5 mg/dl 8.0 g/dl +0.55 +0.52 5 mg/dl 8.0 g/dl +0.86 +0.77 ALBUMIN (test 2.6 G/DL 3.5-5.0 L code = ALB) CALCIUM (test 8.3 MG/DL 8.4-10.2 L code = CA) BILIRUBIN TOTAL 1.3 MG/DL 0.2-1.3 N Eltrombopag Interference (test code = for Vitros Prod uct TBil, BILT) BuBc: Assa y Eltrombopag Rufino lyte/ Max Observed Avg. B ias Concentration C oncentration Concentration== ====TBil 7mg/dl TBil/ 1. 2mg/dl +0.23mg.dl +0.2 0mg/dlBuBc 3.5mg/dl Bu/0. 8mg/dl +0.25mg/dl +0.2 4mg/dlBuBc 7 mg/dl Bu/14.2mg /dl +0.38mg/dl +0.2 5mg/dlBuBc 5mg/dl Bc/0mg/d l +0.25mg/dl +0.15mg/dlBuBc 3.5mg/dl Bc/2.8mg/dl +0 .25mg/dl +0.23mg/dl SGOT/AST (test 41 UNITS/L 14-36 H code = AST) SGPT/ALT (test 17 UNITS/L <35 code = ALT) ALKALINE 71 UNITS/L 38-126 N PHOSPHATASE (test code = ALKP) PROTHROMBIN [id number] 12:53:00 Test Item Value Reference Range Interpretation Comments PROTHROMBIN TIME PATIENT 15.7 9.5-12.7 H (test code = PTP) INTERNATIONAL NORMAL RATIO 1.4 0.86-1.14 H T he INR is to be used (test code = INR) only for m onitoring oral anticoagulantth erapy. INDICATION INR VALUE ------- ------- -----1. Prophylaxis, de ep venous thrombos is, including high risk surgery. 2.0 - 3.0 2. Prophylaxis, de ep venous thrombos is, hip surgery, treatm ent for deep venous thr ombosis or pulmonary prevention of s ystemic embolism in pat ients with valvular h eart disease, atrial fibrillation, t issue heart valve, or acute myocardial infa rction. 2.0 - 3.0 3. Mechanical pros thesis heart valves, recurrent syste eloise embolism. 3.0 - 4.5 CBC W/AUTO [id number] 12:40:00 Test Item Value Reference Range Interpretation Comments WHITE BLOOD CELL (test code = 3.2 K/MM3 3.8-9.8 L WBC) RED BLOOD CELL (test code = 3.32 M/MM3 3.58-4.97 L RBC) HEMOGLOBIN (test code = HGB) 7.7 G/DL 11.2-14.9 L HEMATOCRIT (test code = HCT) 25.5 % 33.2-43.5 L MEAN CELL VOLUME (test code = 77 fL 80.7-99.1 L MCV) MEAN CELL HGB (test code = MCH) 23.2 pg 27.0-34.1 L MEAN CELL HGB CONCETRATION 30.2 % 32.2-35.7 L (test code = MCHC) RED CELL DISTRIBUTION WIDTH 17.4 % 12.1-15.2 H (test code = RDW) PLATELET COUNT (test code = 79 K/MM3 129-368 L PLT) NEUTROPHIL % (test code = NT%) 68.2 % 43-75 N IMMATURE GRANULOCYTE % (test 0.3 % 0.0-2.0 N code = IG%) LYMPHOCYTE % (test code = LY%) 15.1 % 14-44 N MONOCYTE % (test code = MO%) 13.9 % 4-13 H EOSINOPHIL % (test code = EO%) 1.9 % 0-6 N BASOPHIL % (test code = BA%) 0.6 % 0-2 N NUCLEATED RBC % (test code = 0.0 % 0-1.0 N NRBC%) NEUTROPHIL # (test code = NT#) 2.16 K/mm3 2.0-7.6 N IMMATURE GRANULOCYTE # (test 0.01 x10 3/uL 0-0.03 N code = IG#) LYMPHOCYTE # (test code = LY#) 0.48 K/mm3 1.0-3.8 L MONOCYTE # (test code = MO#) 0.44 K/mm3 0.1-0.8 N EOSINOPHIL # (test code = EO#) 0.06 K/mm3 0.0-0.2 N BASOPHIL # (test code = BA#) 0.02 K/mm3 0.0-0.2 N NUCLEATED RBC # (test code = 0.00 K/mm3 0.0-0.1 N NRBC#) IR PARACENTESIS/PERITONECENTESIS WITH [id number] 16:49:16EXAMINATION: IMAGE GUIDED PARACENTESIS. HISTORY/INDICATION: please perform large volume paracentesisevery 4 weeksfor ascites please perform large volume paracentesis every 4 weeks forascites SEDATION:The patient did not require conscious sedation for the procedure. TECHNIQUE: The risks (including infection and increased risk of bleedingdue to abnormal prothrombin time and platelets), benefits and al ternativeswere discussed and informed consent was obtained. Prior to beginning the procedure, [place] "timeout" Protocol wasperformed to confirm the identity and the planned procedure. ?Maximumsterile barriers including sterile gloves, sterile drape and cutaneousantisepsis were used. The patient's abdomen was examined with ultrasound and a suitable pocket ofascitic fluid in the RLQ right side of the abdomen was identified. The skinoverlying this area was anesthetized with 1 percent lidocaine. A singlestep needle/catheter assembly were advanced into the ascitic fluid. Approximately 9300 mL of clear yellow fluid was drained. Several samplesobtained and sent to pathology laboratory as requested by the referringclinician. At the conclusion of the procedure the catheter was removed and a steriledressing applied to the site. ESTIMATED BLOOD LOSS: None. CONDITION: Stable. DISCHARGED TO: Outpatient surgery for intravenous albumin therapy. [facility], Radiant Results Inft User - 01/29/2021 11:50 AM CDTEXAMINATION: IMAGE GUIDED PARACENTESIS. HISTORY/INDICATION: please perform large volume paracentesis every4 weeksfor ascites please perform large volume paracentesis every 4 weeks forascitesSEDATION: The patient did not require conscious sedation for the procedure.TECHNIQUE: The risks (including infection and increased risk of bleedingdue to abnormal prothrombin time and platelets), benefits and alternativeswere discussed and informed consent was obtained. Prior to beginning the procedure, [place] "timeout" Protocol wasperformed to confirm the identity and the planned procedure. Maximumsterile barriers including sterile gloves, sterile drape and cutaneousantisepsis were used. The patient's abdomen was examined with ultrasound and a suitable pocket ofascitic fluid in the RLQ right side of the abdomenwas identified. The skinoverlying this area was anesthetized with 1 percent lidocaine. A singlestep needle/catheter assembly were advanced into the ascitic fluid. Approximately 9300 mL of clear yellow f luid was drained. Several samplesobtained and sent to pathology laboratory as requested by the referringclinician.At the conclusion of the procedure the catheter was removed and a steriledressing applied to the site. ESTIMATED BLOOD LOSS: None.CONDITION: Stable.DISCHARGED TO: Outpatient surgery for intravenous albumin therapy.[facility]ITONECENTESIS WITH [id number] 19:45:02EXAMINATION: IMAGE GUIDED PARACENTESIS. HISTORY/INDICATION: Other ascites Please perform large volume paracentesisevery 4 weeks for ascites SEDATION: The patient did not require conscious sedation for the procedure. TECHNIQUE: The risks (including infection and increased risk of bleedingdue to abnormal prothrombin time and platelets), benefits and alternativeswere discussed and informed consent was ob tained. Prior to beginning the procedure, [place] "timeout" Protocol wasperformed to confirm the identity and the planned procedure. ?Maximumsterile barriers including sterile gloves, sterile drape and cutaneousantisepsis were used. The patient's abdomen was examined with ultrasound and a suitable pocket ofascitic fluid in the RLQ right side of the abdomen was identified. The skinoverlying this area was anesthetized with 1 percent lidocaine. A singlestep needle/catheter assembly were advanced intothe ascitic fluid. Approximately 11,650 mL of serous yellow fluid was drained. Several sampleshave been sent to pathology for testing as requested by Dr. Thornton. At the conclusion of the procedure the catheter was removed and a steriledressing applied to the site. 4 quadrant post paracentesis ultrasound study showed very minimal residualfluid surrounding the liver. ESTIMATED BLOOD LOSS: Minimal. CONDITION: Stable. DISCHARGED TO: Outpatient surgery for IV albumin therapy. [facility], Radiant Results Inft User - 01/03/2021 1:46 PM CSTEXAMINATION: IMAGE GUIDED PARACENTESIS. HISTORY/INDICATION: Other ascites Please perform large volume paracentesisevery 4 weeks for ascitesSEDATION: The patient did notrequire conscious sedation for the procedure.TECHNIQUE: The risks (including infection and increasedrisk of bleedingdue to abnormal prothrombin time and platelets), benefits and alternativeswere discussed and informed consent was obtained. Prior to beginning the procedure, [place] "timeout" Protocol wasperformed to confirm the identity and the planned procedure. Maximumsterile barriers including sterile gloves, sterile drape and cutaneousantisepsis were used. The patient's abdomen was examined with ultrasound and a suitable pocket ofascitic fluid in the RLQ right side of the abdomen was identified. The skinoverlying this area was anesthetized with 1 percent lidocaine. A singlestep needle/catheter assembly were advanced into the ascitic fluid. Approximately 11,650 mL of serous yellow fluid wasdrained. Several sampleshave been sent to pathology for testing as requested by Dr. Thornton.At the conclusion of the procedure the catheter was removed and a steriledressing applied to the site.4 quadrant post paracentesis ultrasound study showed very minimal residualfluid surrounding the liver.ESTIMATED BLOOD LOSS: Minimal.CONDITION: Stable.DISCHARGED TO: Outpatient surgery for IV albumin therapy.[facility]ENTESIS/PERITONECENTESIS WITH [id number] 20:22:56Successful US- guided paracentesis.PROCEDURE: US-guided paracentesis HISTORY: Ascites, paracentesis is requested. MEDICATIONS: Local lidocaine. I reviewed the patient?s current medicationlist as noted in the nursing assessment, and the following actions weretaken: None []. ATTENDING PRESENCE: ?As the attending radiologist, I was present in theroom during the entire procedure. TECHNIQUE: Informed consent was obtained from the patient after discussingthe risks and benefits of the procedure. [place] protocol timeout wasperformed verifying correct patient, correct site, and correct procedure.Images were archived to PACS. The patient was prepped and draped in sterilefashion. US-guided drainage of the ascites was performed with a 5 Frenchsheathed needle, after infiltrating local anesthesia at the puncture site.A total of 7000cc clear yellowish fluid was drained. 50 g IV albumin was given during the procedure. COMPLICATIONS: None. ? Estimated Blood Loss : <1 cc [facility], Radiant Results Inft User - 02/2021 2:24 PM CSTPROCEDURE: US-guided paracentesisHISTORY: Ascites, paracentesis is requested.MEDICATIONS: Local lidocaine. I reviewed the patient?s current medicationlist as noted in the nursing assessment, and the following actions weretaken: None []. ATTENDING PRESENCE: As the attending radiologist, I was present in theroom during the entire procedure.TECHNIQUE: Informed consent was obtained from the patient after discussingthe risks and benefits of the procedure. [place] protocol timeout wasperformed verifying correct patient, correct site, and correct procedure.Images were archived to PACS. The patient was prepped and draped in sterilefashion. US-guided drainage of the ascites was performed with a 5 Frenchsheathed needle, after infiltrating local anesthesia at the puncture site.A total of 7000cc clear yellowish fluid was drained. 50 g IV albumin was given during the procedure.COMPLICATIONS: None. Estimated Blood Loss : <1 ccIMPRESSIONSuccessful US-guided paracentesis.[facility] PAR[facility]ENTESIS/PERITONECENTESIS WITH [id number] 21:20:52 Successful US-guided paracentesis.PROCEDURE: US-guided paracentesis HISTORY: Ascites, paracentesis is requested. MEDICATIONS: Local lidocaine. I reviewed the patient?s current medicationlist as noted in the nursing assessment, and the following actions weretaken: None []. ATTENDING PRESENCE: ?As the attending radiologist, I was present in theroom during the entire procedure. TECHNIQUE: Informed consent was obtained from the patient after discussingthe risks and benefits of the procedure. [place] protocol timeout wasperformed verifying correct patient, correct site, and correct procedure.Images were archived to PACS. The patient was prepped and draped in sterilefashion. US-guided drainage of the ascites was performed with a 5 Frenchsheathed needle, after infiltrating local anesthesia at the puncture site.A total of 10.3 L ascites fluid was drained. 75 g IV albumin was given during the procedure. COMPLICATIONS: None. ? Estimated Blood Loss : <1 cc [facility], Radiant Results Inft User - 10/22/20203:44 PM CSTPROCEDURE: US-guided paracentesisHISTORY: Ascites, paracentesis is requested.MEDICATIONS:Local lidocaine. I reviewed the patient?s current medicationlist as noted in the nursing assessment,and the following actions weretaken: None []. ATTENDING PRESENCE: As the attending radiologist, I was present in theroom during the entire procedure.TECHNIQUE: Informed consent was obtained from the patient after discussingthe risks and benefits of the procedure. [place] protocol timeout wasperformed verifying correct patient, correct site, and correct procedure.Images were archived to PACS. The patient was prepped and draped in sterilefashion. US-guided drainage of the ascites was performed with a 5 Frenchsheathed needle, after infiltrating local anesthesia at the puncture site.A total of 10.3 Lascites fluid was drained. 75 g IV albumin was given during the procedure.COMPLICATIONS: None. Estimated Blood Loss : <1 ccIMPRESSIONSuccessful US-guided paracentesis.[facility] Hospital[facility]AV ANTIBODY (IGG AND IGM)2020-10-03 00:09:00 Test Item Value Reference Range Interpretation Comments HAV Total (test code = 8405960672) Negative HAVT Semi-Quantitative (test code = 9633908714) [facility] HospitalHEPATITIS B SURFACE [id number] 00:09:00 Test Item Value Reference Range Interpretation Comments HBsAB (test code = Negative 0262223779) HBsAb mIU/mL Semi-Quantitative (test code = 4825716266) MARY (test code = Interpretation: MARY) ?Hepatitis B Surface Antibody ? Negative - Patient is considered to be not immune to infection with HBV. ? ? Positive - Anti-HBs detected at greater than or equal to 12 mIU/mL. ?Patient is considered to be immune to infection with HBV. ? [facility] Hospital[facility]BC ANTIBODY (IGM & IGG)2020-10-03 00:09:00 Test Item Value Reference Range Interpretation Comments HBC (test code = 2857312440) Negative HBC Semi-Quantitative (test code = 3450032638) [facility] HospitalHCV [id number] 00:09:00 Test Item Value Reference Range Interpretation Comments HCV Ab (test code = 30682-4) Negative HCV Semi-Quantitative (test code = 76215-3) [facility] HospitalALPHA [id number] 23:55:00 Test Item Value Reference Range Interpretation Comments AFP (test code = 3.2 ng/mL See_Comment [Automated 4347955085) message] The system which generated this result transmitted reference range : <=7.5. The reference range was not used to interpret this result as normal/abnormal . MARY (test code = MARY) Biotin has been reported to cause a negative bias, interpret results relative to patient's use of biotin. Lab Interpretation Normal (test code = 83193-3) [facility] HospitalHEPAT[facility]IS [facility] SURFACE [id number] 23:52:00 Test Item Value Reference Range Interpretation Comments HBsAg Semi-Quantitative (test code = Negative Negative 5195-3) [facility] WITH [id number] 19:15:00 Test Item Value Reference Range Interpretation Comments WBC (test code = See_Comment L [Automated 6690-2) message] The sy stem which generated this result transmitted reference range : 4.30 - 11.10 10*3/?L. The reference range was not used to interpret this result as normal/abnormal . RBC (test code = See_Comment L [Automated 789-8) message] The sy stem which generated this result transmitted reference range : 3.93 - 5.25 10*6/?L. The reference range was not used to interpret this result as normal/abnormal . HGB (test code = 8.3 g/dL 11.6-15 L 718-7) HCT (test code = 27.5 % 35.7-45.2 L 4544-3) MCV (test code = 79.7 fL 80.6-95.5 L 787-2) MCH (test code = 24.1 pg 25.9-32.8 L 785-6) MCHC (test code = 30.2 g/dL 31.6-35.1 L 786-4) RDW-SD (test code = 45.3 fL 39-49.9 73140-0) RDW-CV (test code = 15.7 % 12-15.5 H 788-0) PLT (test code = See_Comment L [Automated 777-3) message] The sy stem which generated this result transmitted reference range : 166 - 358 10*3/ ?L. The reference r glenn was not used to interpret this result as normal/abnormal . MPV (test code = 12.2 fL 9.5-12.9 26414-1) IPF % (test code = 4.5 % 1.3-7.7 Platelet count [id number]) measured by fluorescence method. NRBC/100 WBC (test See_Comment [Automat ed code = 5987385521) message] The system which generated this result transmitted reference range : 0.0 - 10.0 /100 WBCs. The refer ence range was not u sed to interpret th is result as normal/abnormal . NRBC x10^3 (test code <0.01 See_Comment [Auto mated = 9794680506) message] The s ystem which generated this result transmitted reference range : 10*3/?L. The reference range was not used to interpret this result as normal/abnormal . GRAN MAT (NEUT) % 64.4 % (test code = 770-8) IMM GRAN % (test code 0.30 % = 5873500526) LYMPH % (test code = 19.7 % 736-9) MONO % (test code = 11.5 % 5905-5) EOS % (test code = 3.5 % 713-8) BASO % (test code = 0.6 % 706-2) GRAN MAT x10^3(ANC) 2.02 10*3/uL 1.88-7.09 (test code = 7509569226) IMM GRAN x10^3 (test <0.03 0-0.06 code = 8341877246) LYMPH x10^3 (test code 0.62 10*3/uL 1.32-3.29 L = 731-0) MONO x10^3 (test code 0.36 10*3/uL 0.33-0.92 = 742-7) EOS x10^3 (test code = 0.11 10*3/uL 0.03-0.39 711-2) BASO x10^3 (test code <0.03 0.01-0.07 = 704-7) Lab Interpretation Abnormal (test code = 79769-0) [facility] WITH [id number] 19:15:00 Test Item Value Reference Range Interpretation Comments WBC (test code = See_Comment L [Automated 6690-2) message] The sy stem which generated this result transmitted reference range : 4.30 - 11.10 10*3/?L. The reference range was not used to interpret this result as normal/abnormal . RBC (test code = See_Comment L [Automated 489-8) message] The sy stem which generated this result transmitted reference range : 3.93 - 5.25 10*6/?L. The reference range was not used to interpret this result as normal/abnormal . HGB (test code = 8.3 g/dL 11.6-15 L 718-7) HCT (test code = 27.5 % 35.7-45.2 L 4544-3) MCV (test code = 79.7 fL 80.6-95.5 L 787-2) MCH (test code = 24.1 pg 25.9-32.8 L 785-6) MCHC (test code = 30.2 g/dL 31.6-35.1 L 786-4) RDW-SD (test code = 45.3 fL 39-49.9 73927-1) RDW-CV (test code = 15.7 % 12-15.5 H 788-0) PLT (test code = See_Comment L [Automated 777-3) message] The sy stem which generated this result transmitted reference range : 166 - 358 10*3/ ?L. The reference r glenn was not used to interpret this result as normal/abnormal . MPV (test code = 12.2 fL 9.5-12.9 19967-3) IPF % (test code = 4.5 % 1.3-7.7 Platelet count [id number]) measured by fluorescence method. NRBC/100 WBC (test See_Comment [Automat ed code = 5624333059) message] The system which generated this result transmitted reference range : 0.0 - 10.0 /100 WBCs. The refer ence range was not u sed to interpret th is result as normal/abnormal . NRBC x10^3 (test code <0.01 See_Comment [Auto mated = 0981534250) message] The s ystem which generated this result transmitted reference range : 10*3/?L. The reference range was not used to interpret this result as normal/abnormal . GRAN MAT (NEUT) % 64.4 % (test code = 770-8) IMM GRAN % (test code 0.30 % = 0632956551) LYMPH % (test code = 19.7 % 736-9) MONO % (test code = 11.5 % 5905-5) EOS % (test code = 3.5 % 713-8) BASO % (test code = 0.6 % 706-2) GRAN MAT x10^3(ANC) 2.02 10*3/uL 1.88-7.09 (test code = 1995113472) IMM GRAN x10^3 (test <0.03 0-0.06 code = 8170573580) LYMPH x10^3 (test code 0.62 10*3/uL 1.32-3.29 L = 731-0) MONO x10^3 (test code 0.36 10*3/uL 0.33-0.92 = 742-7) EOS x10^3 (test code = 0.11 10*3/uL 0.03-0.39 711-2) BASO x10^3 (test code <0.03 0.01-0.07 = 704-7) Lab Interpretation Abnormal (test code = 28147-8) [facility] HospitalPROTHROMBIN TIME / [id number] 19:10:00 Test Item Value Reference Range Interpretation Comments PROTIME PATIENT (test See_Comment H [Auto mated message] code = 5964-2) The system [employer] generated this result transmitted ref erence range: 12.0 - 1 4.7 Seconds. The reference range was not used to int erpret this result as normal/abnormal . INR (test code = 6301-6) Nor mal INR <1.1; Warfarin Therap eutic range 2.0 to 3. 0 or 2.5 to 3.5, dep ending upon the indica tions. Lab Interpretation (test Abnormal code = 20932-3) [facility] HospitalPROTHROMBIN TIME / [id number] 19:10:00 Test Item Value Reference Range Interpretation Comments PROTIME PATIENT (test See_Comment H [Auto mated message] code = 5964-2) The system [employer] generated this result transmitted ref erence range: 12.0 - 1 4.7 Seconds. The reference range was not used to int erpret this result as normal/abnormal . INR (test code = 6301-6) Nor mal INR <1.1; Warfarin Therap eutic range 2.0 to 3. 0 or 2.5 to 3.5, dep ending upon the indica tions. Lab Interpretation (test Abnormal code = 15830-2) [facility] [id number] 18:12:00 Test Item Value Reference Range Interpretation Comments FERRITIN (test code = 20.5 ng/mL 264 8494016605) MARY (test code = MARY) Biotin has been reported to cause a negative bias, interpret results relative to patient's use of biotin. Lab Interpretation (test Normal code = 94077-9) [facility] [id number] 18:12:00 Test Item Value Reference Range Interpretation Comments FERRITIN (test code = 20.5 ng/mL 264 0891273007) MARY (test code = MARY) Biotin has been reported to cause a negative bias, interpret results relative to patient's use of biotin. Lab Interpretation (test Normal code = 53541-0) [facility] [id number] 17:49:00 Test Item Value Reference Range Interpretation Comments TIBC (test code = 8481580141) 401 ug/dL 250-410 % FE SAT (test code = 0773743751) 12 % 20-50 L Lab Interpretation (test code = Abnormal 99130-9) [facility] [id number] 17:49:00 Test Item Value Reference Range Interpretation Comments TIBC (test code = 7342689271) 401 ug/dL 250-410 % FE SAT (test code = 6481233121) 12 % 20-50 L Lab Interpretation (test code = Abnormal 61512-9) [facility]HEPAT[facility] FUNCTION PANEL (16775) (ALB,T.PRO,BILI T,BU/BC,ALT,AST,ALK PHOS)2020-10-02 17:39:00 Test Item Value Reference Range Interpretation Comments TOTAL BILI (test code = 8075747305) 1.3 mg/dL 0.1-1.1 H BILI UNCON (test code = 1191922949) 1.0 mg/dL 0.1-1.1 BILI CONJ (test code = 7283079787) 0.0 mg/dL 0-0.3 T PROTEIN (test code = 8266752505) 6.8 g/dL 6.3-8.2 ALBUMIN (test code = 0141925796) 3.0 g/dL 3.5-5 L ALK PHOS (test code = 9048693259) 95 U/L 34-122 ALTv (test code = 1742-6) 18 U/L 5-35 AST(SGOT) (test code = 6932153435) 53 U/L 13-40 H Lab Interpretation (test code = Abnormal 32827-8) [facility] HospitalIRON2020-11-17 17:39:00 Test Item Value Reference Range Interpretation Comments IRON (test code = 3964310031) 49 ug/dL 50-160 L Lab Interpretation (test code = Abnormal 27049-3) [facility] (28885) (ALB,T.PRO,BILI T,BU/BC,ALT,AST,ALK PHOS)2020-10-02 17:39:00 Test Item Value Reference Range Interpretation Comments TOTAL BILI (test code = 8988027218) 1.3 mg/dL 0.1-1.1 H BILI UNCON (test code = 1173658494) 1.0 mg/dL 0.1-1.1 BILI CONJ (test code = 4324544408) 0.0 mg/dL 0-0.3 T PROTEIN (test code = 5078325702) 6.8 g/dL 6.3-8.2 ALBUMIN (test code = 4161103730) 3.0 g/dL 3.5-5 L ALK PHOS (test code = 6502981869) 95 U/L 34-122 ALTv (test code = 1742-6) 18 U/L 5-35 AST(SGOT) (test code = 2765108573) 53 U/L 13-40 H Lab Interpretation (test code = Abnormal 91298-6) [facility]2020-11-17 17:39:00 Test Item Value Reference Range Interpretation Comments IRON (test code = 2317689671) 49 ug/dL 50-160 L Lab Interpretation (test code = Abnormal 66864-3) [facility] HospitalCT HEAD WO [id number] 14:12:08 No acute intracranial abnormality. Preliminary Report Dictated by Resident: Karan Tay MD., have reviewed this study and agree with the abovereport.CT HEAD WO CONTRAST HISTORY: Altered mental status (AMS), unclear cause worsened AMS withoutclear etiology since 02/19; history of cirrhosis, thrombocytopenia;abnormal CT Head on 02/19; eval for interval change COMPARISON: CT head without contrast 02/20/2020. TECHNIQUE: Noncontrast CT imaging of the head was performed and coronal andsagittal reconstructions were obtained and reviewed. FINDINGS: The ventricles and cerebral sulciare normal in caliber and configuration.No hydrocephalus, midline shift or pathological extra-axial f luidcollection is present. The basal cisterns are unremarkable. There is no acute intracranial hemorrhage or significant mass effect. Tinyhyperdense focus anterior and superior to the third ventricle is unchangedand likely represents nonspecific mineralization. No parenchymalattenuation abnormality. The muñoz- white matter differentiation ispreserved. The mastoid air cells and paranasal air sinuses areclear. The calvariumand central skull base are unremarkable. [facility], Radiant Results Inft User - 02/25/2020 9:13 AM CDTCT HEAD WO CONTRASTHISTORY: Altered mental status (AMS), unclear cause worsened AMS w ithoutclear etiology since 02/19; history of cirrhosis, thrombocytopenia;abnormal CT Head on 02/19; eval for interval change COMPARISON: CT head without contrast 02/20/2020. TECHNIQUE: Noncontrast CT imaging of the head was performed and coronal andsagittal reconstructions were obtained and reviewed.FINDINGS:The ventricles and cerebral sulci are normal in caliber and configuration.No hydrocephalus, midline shift or pathological extra-axial fluidcollection is present. The basal cisterns are unremarkable.There is no acute intracranial hemorrhage or significant mass effect. Tinyhyperdense focus anteriorand superior to the third ventricle is unchangedand likely represents nonspecific mineralization. Noparenchymalattenuation abnormality. The muñoz-white matter differentiation ispreserved.The mastoid air cells and paranasal air sinuses are clear. The calvariumand central skull base are unremarkable.IMPR ESSIONNo acute intracranial abnormality.Preliminary Report Dictated by Resident: Kael Castano,Karan Perez MD., have reviewed this study and agree with the abovereport.[facility] HospitalHALLIE [id number] 14:11:00 Test Item Value Reference Range Interpretation Comments TROPONIN I (test <0.012 See_Comment [Automated code = 5400175420) message] The system which generated this result transmitted reference range : <=0.034 ng/mL. The reference range was not used to interpr et this result as normal/abnormal . MARY (test code = Equal or Less than MARY) 0.034 ng/ml---Normal ?Note: Cardiac troponin begins to rise 3-4 hours after the onset of ischemia. Repeat in 4-6 hours if the sample was drawn within 3-4 hours of the onset of the symptom and found normal. Between 0.035 and 0.120 ng/mL--- Borderline. Questionable myocardial injury or necrosis ? ?Note: Serial measurement may be necessary to confirm or exclude the diagnosis of myocardial injury or necrosis; Clinical correlation (symptoms, EKGs, imaging studies, and others) required; Repeat in 4-6 hours if clinically indicated. ? Equal or Higher than 0.121 ng/mL---Abnormal. Myocardial Injury or Necrosis Likely ? Biotin has been reported to cause a negative bias, interpret results relative to patient's use of biotin. ? Lab Interpretation Normal (test code = 15811-8) [facility] HospitalACETAMINOPHEN2020-04-11 13:30:00 Test Item Value Reference Range Interpretation Comments ACETAMINOP (test code = <10.0 10-30 L 8274652393) MARY (test code = MARY) Toxic: Greater than 200 ug/mL @ 4 hour post ingestion or greater than 50 ug/mL @ 12 hour post ingestion Lab Interpretation (test Abnormal code = 88314-8) [facility] HospitalSALICYLATE2020-04-11 13:13:00 Test Item Value Reference Range Interpretation Comments SALICYLATE (test code 10 mg/L = 2576330364) MARY (test code = MARY) Therapeutic Range: ? Analgesic and Antipyretic Use ? 20-100 mg/L ? ? Anti-Inflammatory Use ? 100-250 mg/L Toxic Range: ? Greater than 300 mg/L [facility] HospitalaPTT2020-04-11 13:12:00 Test Item Value Reference Range Interpretation Comments APTT Patient (test See_Comment [Automat ed code = 3173-2) message] The system which generated this result transmitted reference range : 23 - 38 Seconds . The reference range was not used to interpr et this result as normal/abnormal . MARY (test code = MARY) The [facility] patient population mean normal value for aPTT is 30 seconds. Lab Interpretation Normal (test code = 64894-6) [facility] HospitalPROTHROMBIN TIME / [id number] 13:10:00 Test Item Value Reference Range Interpretation Comments PROTIME PATIENT (test See_Comment H [Auto mated message] code = 5964-2) The system wh ich generated this result transmitted ref erence range: 12.0 - 1 4.7 Seconds. The reference range was not used to int erpret this result as normal/abnormal . INR (test code = 6301-6) Nor mal INR <1.1; Warfarin Therap eutic range 2.0 to 3. 0 or 2.5 to 3.5, dep ending upon the indica tions. Lab Interpretation (test Abnormal code = 99396-2) [facility] HospitalAD / [facility] [id number] 13:08:00 Test Item Value Reference Range Interpretation Comments BENZO U (test code = Negative Negative 6837911524) FATEMEH U (test code = Negative Negative 7449992226) AMPHET (test code = Negative Negative 1468311961) THC (test code = Negative Negative 3735100584) METHADONE (test code = Negative Negative 3700559909) Meth U (test code = Negative Negative 0707261938) OPIATES (test code = Negative Negative 4133804379) Cocaine Metabolite (test Negative Negative code = 6276202897) PROPOXY (test code = Negative Negative 5775794940) Tric U (test code = Negative Negative 5211571035) PCP (test code = Negative Negative 8810925306) OXYCOD (test code = Negative Negative 0729655531) MARY (test code = MARY) Urine Drug Cutoff Ranges Benzodiazepines: ? ? 150 ng/mLBarbiturates: ?200 ng/mLAmphetamine: ? 500 ng/mLCannabinoids: ?50 ?ng/mLMethadone: ? 200 ng/mLMethamphetamine: ? ? 500 ng/mL Opiates: ? 100 ng/mL or 2000 ng/mLCocaine: ? 150 ng/mLPropoxyphene: ?300 ng/mLTricyclics: ?300 ng/mLOxycodone: ? 100 ng/mLPCP: ? 25 ?ng/mL The results are to be used only for medical (i.e., treatment) purposes. Unconfirmed screening results must not be used for non-medical purposes (e.g., employment testing, legal testing). Lab Interpretation (test Normal code = 47598-5) [facility] HospitalUrinalysis2020-04-11 13:07:00 Test Item Value Reference Range Interpretation Comments APPEARANCE (test code = Clear Clear 2926658518) COLOR (test code = Yellow Yellow 7679412689) PH (test code = 4.8-8.0 3625964392) SP GRAVITY (test code = 1.003-1.030 0098593454) GLU U QUAL (test code = 150 mg/dL Normal A 9627225268) BLOOD (test code = Negative Negative 6274878363) KETONES (test code = Negative Negative 2092727078) PROTEIN (test code = Negative Negative 2887-8) UROBILIN (test code = 2.0 mg/dL Normal A 8911534703) BILIRUBIN (test code = Negative Negative 7313094862) NITRITE (test code = Negative Negative 6061918300) LEUK SABA (test code = Negative Negative 8089804115) RBC/HPF (test code = See_Comment [Autom ated message] 2146435659) The system [employer] generated this result transmit carlitos reference range : 0 - 3 HPF. The refe rence range was not u sed to interpret th is result as normal/abnormal . WBC/HPF (test code = See_Comment [Autom ated message] 6877826996) The system [employer] generated this result transmit carlitos reference range : 0 - 5 HPF. The refe rence range was not u sed to interpret th is result as normal/abnormal . BACTERIA (test code = Moderate Negative A 5010136568) MUCOUS (test code = Moderate Negative LPF A 1314327192) SQ EPITH (test code = <1 HPF 8681503764) HYAL CAST (test code = See_Comment [Aut omated message] 2507724034) The system whic h generated this result transmit carlitos reference range : <=2 LPF. The refere nce range was not u sed to interpret th is result as normal/abnormal . Lab Interpretation (test Abnormal code = 07409-5) [facility] HospitalAMMONIA, [id number] 12:48:00 Test Item Value Reference Range Interpretation Comments AMMONIA (test code = 6619085076) 13 umol/L 9-33 Lab Interpretation (test code = Normal 79667-0) [facility] WITH [id number] 12:37:00 Test Item Value Reference Range Interpretation Comments WBC (test code = See_Comment [Automated 5790-2) message] The sy stem which generated this result transmitted reference range : 4.30 - 11.10 10*3/?L. The reference range was not used to interpret this result as normal/abnormal . RBC (test code = See_Comment [Automated 389-8) message] The sy stem which generated this result transmitted reference range : 3.93 - 5.25 10*6/?L. The reference range was not used to interpret this result as normal/abnormal . HGB (test code = 12.2 g/dL 11.6-15 718-7) HCT (test code = 37.9 % 35.7-45.2 4544-3) MCV (test code = 87.9 fL 80.6-95.5 787-2) MCH (test code = 28.3 pg 25.9-32.8 785-6) MCHC (test code = 32.2 g/dL 31.6-35.1 786-4) RDW-SD (test code = 42.4 fL 39-49.9 32863-0) RDW-CV (test code = 13.0 % 12-15.5 788-0) PLT (test code = See_Comment L [Automated 777-3) message] The sy stem which generated this result transmitted reference range : 166 - 358 10*3/ ?L. The reference r glenn was not used to interpret this result as normal/abnormal . MPV (test code = 11.8 fL 9.5-12.9 33859-6) IPF % (test code = 4.6 % 1.3-7.7 Platelet count 2661801313) measured by fluorescence method. NRBC/100 WBC (test See_Comment [Automat ed code = 0725298504) message] The system which generated this result transmitted reference range : 0.0 - 10.0 /100 WBCs. The refer ence range was not u sed to interpret th is result as normal/abnormal . NRBC x10^3 (test code <0.01 See_Comment [Auto mated = 8806584096) message] The s ystem which generated this result transmitted reference range : 10*3/?L. The reference range was not used to interpret this result as normal/abnormal . GRAN MAT (NEUT) % 80.2 % (test code = 770-8) IMM GRAN % (test code 0.20 % = 0727037336) LYMPH % (test code = 12.0 % 736-9) MONO % (test code = 6.2 % 5905-5) EOS % (test code = 1.2 % 713-8) BASO % (test code = 0.2 % 706-2) GRAN MAT x10^3(ANC) 4.55 10*3/uL 1.88-7.09 (test code = 4203744510) IMM GRAN x10^3 (test <0.03 0-0.06 code = 4387749000) LYMPH x10^3 (test code 0.68 10*3/uL 1.32-3.29 L = 731-0) MONO x10^3 (test code 0.35 10*3/uL 0.33-0.92 = 742-7) EOS x10^3 (test code = 0.07 10*3/uL 0.03-0.39 711-2) BASO x10^3 (test code <0.03 0.01-0.07 = 704-7) PLT ESTIMATE (test Decreased Normal A code = 9317-9) Lab Interpretation Abnormal (test code = 75023-9) [facility] Metabolic Panel (NA, K, CL, CO2, GLUCOSE, BUN, CREATININE, CA)2020-02-25 12:11:00 Test Item Value Reference Range Interpretation Comments NA (test code = 139 mmol/L 135-145 8069468282) K (test code = 4.8 mmol/L 3.5-5 1676997795) CL (test code = 104 mmol/L 98-108 1587056285) CO2 TOTAL (test code = 26 mmol/L 23-31 6270202871) AGAP (test code = 2-16 5465380860) BUN (test code = 24 mg/dL 7-23 H 7669002257) GLUCOSE (test code = 266 mg/dL 70-110 H 0869367641) CREATININE (test code = 0.85 mg/dL 0.5-1.04 8612119331) CALCIUM (test code = 9.9 mg/dL 8.6-10.6 5068283478) eGFR Calculation mL/min/1.73m2 (Non-) (test code = 9496993033) eGFR Calculation mL/min/1.73m2 () (test code = 2941388663) MARY (test code = MARY) Association of Glomerular Filtration Rate (GFR) and Staging of Kidney Disease* + --+ --+ ------+| GFR (mL/min/1.73 m2) ?| With Kidney Damage ?| ?Without Kidney Damage+ --------+ --------+ +| ?>90 ?| ?Stage one ?| ? Normal ?+ ---+ ---+ -------+| ?60-89 ?| ?Stage two ?| ? Decreased GFR ? + --+ --+ ------+| ?30-59 ?| ?Stage three ?| ? Stage three ? + --+ --+ ------+| ?15-29 ?| ?Stage four ? | ? Stage four ?+ ---+ ---+ -------+| ?<15 (or dialysis) ? ?| ?Stage five ? | ? Stage five ?+ ---+ ---+ -------+ *Each stage assumes the associated GFR level has been in effect for at least three months. ?Stages 1 to 5, with or without kidney disease, indicate chronic kidney disease. Notes: Determination of stages one and two (with eGFR >59mL/min/1.73 m2) requires estimation of kidney damage for at least three months as defined by structural or functional abnormalities of the kidney, manifested by either:Pathological abnormalities or Markers of kidney damage (including abnormalities in the composition of the blood or urine or abnormalities in imaging tests). Lab Interpretation Abnormal (test code = 05930-1) [facility] HospitalHep[facility] Function Panel (ALB, T.PRO, BILI T, BU/BC, ALT, AST, ALK PHOS)2020-02-25 12:11:00 Test Item Value Reference Range Interpretation Comments TOTAL BILI (test code = 3907022397) 1.3 mg/dL 0.1-1.1 H BILI UNCON (test code = 3054427174) 1.2 mg/dL 0.1-1.1 H BILI CONJ (test code = 4150522773) 0.0 mg/dL 0-0.3 T PROTEIN (test code = 8604744117) 8.1 g/dL 6.3-8.2 ALBUMIN (test code = 0360607168) 3.9 g/dL 3.5-5 ALK PHOS (test code = 4059025575) 119 U/L 34-122 ALTv (test code = 1742-6) 27 U/L 5-35 AST(SGOT) (test code = 8648342141) 45 U/L 13-40 H Lab Interpretation (test code = Abnormal 07838-7) [facility] HospitalLipase [id number] 12:11:00 Test Item Value Reference Range Interpretation Comments LIPASE (test code = 4425243407) 68 U/L 0-220 Lab Interpretation (test code = Normal 97233-6) [facility] HospitalBASIC METABOLIC PANEL (NA, K, CL, CO2, GLUCOSE, BUN, CREATININE, CA)2020-02-22 11:41:00 Test Item Value Reference Range Interpretation Comments NA (test code = 140 mmol/L 135-145 4627214604) K (test code = 3.5 mmol/L 3.5-5 7346800793) CL (test code = 101 mmol/L 98-108 7179687404) CO2 TOTAL (test code = 28 mmol/L 23-31 6776429291) AGAP (test code = 2-16 4001666691) BUN (test code = 24 mg/dL 7-23 H 1212379244) GLUCOSE (test code = 144 mg/dL 70-110 H 3506271981) CREATININE (test code = 0.97 mg/dL 0.5-1.04 9717567431) CALCIUM (test code = 9.5 mg/dL 8.6-10.6 7100081716) eGFR Calculation mL/min/1.73m2 (Non-) (test code = 0020501749) eGFR Calculation mL/min/1.73m2 () (test code = 3088014773) MARY (test code = MARY) Association of Glomerular Filtration Rate (GFR) and Staging of Kidney Disease* + --+ --+ ------+| GFR (mL/min/1.73 m2) ?| With Kidney Damage ?| ?Without Kidney Damage+ --------+ --------+ +| ?>90 ?| ?Stage one ?| ? Normal ?+ ---+ ---+ -------+| ?60-89 ?| ?Stage two ?| ? Decreased GFR ? + --+ --+ ------+| ?30-59 ?| ?Stage three ?| ? Stage three ? + --+ --+ ------+| ?15-29 ?| ?Stage four ? | ? Stage four ?+ ---+ ---+ -------+| ?<15 (or dialysis) ? ?| ?Stage five ? | ? Stage five ?+ ---+ ---+ -------+ *Each stage assumes the associated GFR level has been in effect for at least three months. ?Stages 1 to 5, with or without kidney disease, indicate chronic kidney disease. Notes: Determination of stages one and two (with eGFR >59mL/min/1.73 m2) requires estimation of kidney damage for at least three months as defined by structural or functional abnormalities of the kidney, manifested by either:Pathological abnormalities or Markers of kidney damage (including abnormalities in the composition of the blood or urine or abnormalities in imaging tests). Lab Interpretation Abnormal (test code = 57716-6) [facility] [id number] 10:44:00 Test Item Value Reference Range Interpretation Comments AMMONIA (test code = 3020790020) 22 umol/L 9-33 Lab Interpretation (test code = Normal 02122-3) [facility] GLUCOSE (AUTOMATED)2020-02-22 01:15:00 Test Item Value Reference Range Interpretation Comments POCT GLU (test code = 9891793793) 178 mg/dL 70-110 H Lab Interpretation (test code = Abnormal 24972-1) [facility] GLUCOSE (AUTOMATED)2020-02-21 16:39:00 Test Item Value Reference Range Interpretation Comments POCT GLU (test code = 0932478169) 223 mg/dL 70-110 H Lab Interpretation (test code = Abnormal 73399-5) [facility], [id number] 15:10:00 Test Item Value Reference Range Interpretation Comments AMMONIA (test code = 7973981103) 30 umol/L 9-33 Lab Interpretation (test code = Normal 70698-9) [facility] GLUCOSE (AUTOMATED)2020-02-21 12:44:00 Test Item Value Reference Range Interpretation Comments POCT GLU (test code = 9196284569) 191 mg/dL 70-110 H Lab Interpretation (test code = Abnormal 91430-7) [facility] WITH [id number] 11:50:00 Test Item Value Reference Range Interpretation Comments WBC (test code = See_Comment L [Automated 6690-2) message] The sy stem which generated this result transmitted reference range : 4.30 - 11.10 10*3/?L. The reference range was not used to interpret this result as normal/abnormal . RBC (test code = See_Comment L [Automated 789-8) message] The sy stem which generated this result transmitted reference range : 3.93 - 5.25 10*6/?L. The reference range was not used to interpret this result as normal/abnormal . HGB (test code = 11.2 g/dL 11.6-15 L 718-7) HCT (test code = 34.0 % 35.7-45.2 L 4544-3) MCV (test code = 86.7 fL 80.6-95.5 787-2) MCH (test code = 28.6 pg 25.9-32.8 785-6) MCHC (test code = 32.9 g/dL 31.6-35.1 786-4) RDW-SD (test code = 41.1 fL 39-49.9 26981-2) RDW-CV (test code = 13.1 % 12-15.5 788-0) PLT (test code = See_Comment L [Automated 777-3) message] The sy stem which generated this result transmitted reference range : 166 - 358 10*3/ ?L. The reference r glenn was not used to interpret this result as normal/abnormal . MPV (test code = 12.6 fL 9.5-12.9 98558-4) IPF % (test code = 5.2 % 1.3-7.7 Platelet count 5663824244) measured by fluorescence method. NRBC/100 WBC (test See_Comment [Automat ed code = 7453563846) message] The system which generated this result transmitted reference range : 0.0 - 10.0 /100 WBCs. The refer ence range was not u sed to interpret th is result as normal/abnormal . NRBC x10^3 (test code <0.01 See_Comment [Auto mated = 0699809965) message] The s ystem which generated this result transmitted reference range : 10*3/?L. The reference range was not used to interpret this result as normal/abnormal . GRAN MAT (NEUT) % 59.3 % (test code = 770-8) IMM GRAN % (test code 0.30 % = 9705507805) LYMPH % (test code = 22.5 % 736-9) MONO % (test code = 13.7 % 5905-5) EOS % (test code = 3.9 % 713-8) BASO % (test code = 0.3 % 706-2) GRAN MAT x10^3(ANC) 2.29 10*3/uL 1.88-7.09 (test code = 7899736307) IMM GRAN x10^3 (test <0.03 0-0.06 code = 8261938644) LYMPH x10^3 (test code 0.87 10*3/uL 1.32-3.29 L = 731-0) MONO x10^3 (test code 0.53 10*3/uL 0.33-0.92 = 742-7) EOS x10^3 (test code = 0.15 10*3/uL 0.03-0.39 711-2) BASO x10^3 (test code <0.03 0.01-0.07 = 704-7) PLT ESTIMATE (test Decreased Normal A code = 9317-9) Lab Interpretation Abnormal (test code = 33342-0) [facility] (NA, K, CL, CO2, GLUCOSE, BUN, CREATININE, CA)2020-02-21 11:23:00 Test Item Value Reference Range Interpretation Comments NA (test code = 138 mmol/L 135-145 2631906411) K (test code = 3.5 mmol/L 3.5-5 4513533553) CL (test code = 103 mmol/L 98-108 9316284024) CO2 TOTAL (test code = 27 mmol/L 23-31 1848398298) AGAP (test code = 2-16 0220274327) BUN (test code = 22 mg/dL 7-23 0567315450) GLUCOSE (test code = 189 mg/dL 70-110 H 7187124268) CREATININE (test code = 0.65 mg/dL 0.5-1.04 4791387744) CALCIUM (test code = 9.2 mg/dL 8.6-10.6 5518052936) eGFR Calculation mL/min/1.73m2 (Non-) (test code = 0208410065) eGFR Calculation mL/min/1.73m2 () (test code = 8171793531) MARY (test code = MARY) Association of Glomerular Filtration Rate (GFR) and Staging of Kidney Disease* + --+ --+ ------+| GFR (mL/min/1.73 m2) ?| With Kidney Damage ?| ?Without Kidney Damage+ --------+ --------+ +| ?>90 ?| ?Stage one ?| ? Normal ?+ ---+ ---+ -------+| ?60-89 ?| ?Stage two ?| ? Decreased GFR ? + --+ --+ ------+| ?30-59 ?| ?Stage three ?| ? Stage three ? + --+ --+ ------+| ?15-29 ?| ?Stage four ? | ? Stage four ?+ ---+ ---+ -------+| ?<15 (or dialysis) ? ?| ?Stage five ? | ? Stage five ?+ ---+ ---+ -------+ *Each stage assumes the associated GFR level has been in effect for at least three months. ?Stages 1 to 5, with or without kidney disease, indicate chronic kidney disease. Notes: Determination of stages one and two (with eGFR >59mL/min/1.73 m2) requires estimation of kidney damage for at least three months as defined by structural or functional abnormalities of the kidney, manifested by either:Pathological abnormalities or Markers of kidney damage (including abnormalities in the composition of the blood or urine or abnormalities in imaging tests). Lab Interpretation Abnormal (test code = 54812-1) [facility] ([facility]OMATED)2020-02-21 01:41:00 Test Item Value Reference Range Interpretation Comments POCT GLU (test code = 0317068501) 196 mg/dL 70-110 H Lab Interpretation (test code = Abnormal 35758-1) [facility] HospitalGlycosylated Hemoglobin (A1C)2020-02-21 01:36:00 Test Item Value Reference Interpretation Comments Range HGB A1C (test code = See_Comment H [Autom ated 4548-4) message] The system which generated this result transmitted reference range : 4.0 - 6.0 % NGSP. The reference range was not used to interpret this result as normal/abnormal . MARY (test code = %A1C (NGSP) MARY) Interpretation (ADA)4.8-5.6 ? ? Normal or (Non-Diabetic Range)5.7-6.4 ? ? Increased Risk (Pre-Diabetic)>6.5 ?Diabetes Indicated Lab Interpretation Abnormal (test code = 86047-0) [facility] HospitalMagnesium [id number] 01:32:00 Test Item Value Reference Range Interpretation Comments MAGNESIUM (test code = 6100432652) 1.6 mg/dL 1.7-2.4 L Lab Interpretation (test code = Abnormal 09316-2) [facility] HospitalLipid Panel (Total Cholesterol, Triglycerides, HDL) - [id number] 01:30:00 Test Item Value Reference Range Interpretation Comments CHOL (test code = 180 mg/dL 120-200 0252618674) HDL (test code = 45 mg/dL >50 L 7021839862) HDLC RATIO (test code = See_Comment [Au tomated message] 9840477324) The system [employer] generated this result transmit carlitos reference range : <=4.5. The refe rence range was not u sed to interpret th is result as normal/abnormal . TRIG (test code = 88 mg/dL 30-170 9593846592) LDL CHOL (test code = 117 mg/dL See_Comment [Auto mated message] 14929-2) The system [employer] generated this result transmit carlitos reference range : <=160. The refe rence range was not u sed to interpret th is result as normal/abnormal . VLDL (test code = 18 mg/dL 5-60 9907601874) Lab Interpretation (test Abnormal code = 71697-1) [facility] HospitalCORONAVIRUS COVID-19 [id number] 23:38:00 Test Item Value Reference Range Interpretation Comments SARS-CoV-2 (test code = Not Detected Not Detected 06550-0) MARY (test code = MARY) ID NOW COVID-19 Assay is an isothermal nucleic acid amplification test intended for the qualitative detection of nucleic acid from SARS-CoV-2 viral RNA in nasopharyngeal (METAL SASH SETTER) specimens. It is used under Emergency Use Authorization (EUA) by FDA. The limit of detection (LOD) of the assay is 125 Genome Equivalents/mL. A positive result is indicative of the presence of SARS-CoV-2 RNA. ?Clinical correlation with patient history and other diagnostic information is necessary to determine patient infection status. A negative (Not Detected) result does not preclude SARS-CoV-2 infection and should not be used as the sole basis for patient management decisions. ? Invalid: Please collect a new specimen for repeat patient testing if clinically indicated. Lab Interpretation Normal (test code = 58048-5) [facility] HospitalXR CHEST 2 [id number] 23:00:37Impression: No focal consolidation or pneumothorax. Small left-sided pleural effusion. Preliminary Report Dictated by Resident: Torres Norwood MD., have reviewed this study and agree with the abovereport.XR CHEST 2 VW History: AMS Comparison: None available Findings: The lungs are adequately inflated bilaterally. No focal consolidation ispresent. No pneumothorax is visualized. Smallvolume left-sided pleuraleffusion is noted. The cardiac silhouette is normal in size. The osseous structures are unremarkable. [facility], Radiant Results Inft User - 02/20/2020 6:01 PM CDTXR CHEST 2 VWHistory: AMS Comparison: None availableFindings:The lungs are adequately inflated bilaterally. No focal con solidation ispresent. No pneumothorax is visualized. Small volume left-sided pleuraleffusion is noted. The cardiac silhouette is normal in size. The osseous structures are unremarkable.IMPRESSIONImpression:No focal consolidation or pneumothorax.Small left-sided pleural effusion.Preliminary Report Dictated by Resident: Jonh Ding, Torres Brooks MD., have reviewed this study and agree with the abovereport.[facility] HospitalURINALYSIS2020-04-06 22:53:00 Test Item Value Reference Range Interpretation Comments APPEARANCE (test code = Hazy Clear A 0068068075) COLOR (test code = Denita Yellow A 8209844867) PH (test code = 4.8-8.0 2421612462) SP GRAVITY (test code = 1.003-1.030 H 1343763200) GLU U QUAL (test code = 50 mg/dL Normal A 3740414258) BLOOD (test code = Negative Negative INTERFERE NCE FROM 5850875091) ASCORBIC ACID M AY CAUSE FALSE NEG ATIVE RESULT KETONES (test code = Negative Negative 7090235413) PROTEIN (test code = 30 mg/dL Negative A 2887-8) UROBILIN (test code = 4.0 mg/dL Normal A 7567795651) BILIRUBIN (test code = 2 mg/dL Negative A 6453304286) NITRITE (test code = Negative Negative 5650019753) LEUK SABA (test code = Negative Negative 4577984333) RBC/HPF (test code = <1 See_Comment [Autom ated message] 6552812375) The system [employer] generated this result transmitted ref erence range: 0 - 3 HP F. The reference range was not used to int erpret this result as normal/abnormal . WBC/HPF (test code = See_Comment H [Autom ated message] 9765858463) The system [employer] generated this result transmitted ref erence range: 0 - 5 HP F. The reference range was not used to int erpret this result as normal/abnormal . BACTERIA (test code = Few Negative A 9090752781) MUCOUS (test code = Marked Negative LPF A 7063023948) SQ EPITH (test code = HPF 0890460852) Ictotest (test code = Negative 2540606597) Lab Interpretation Abnormal (test code = 32317-1) [facility] HospitalTROPONIN [id number] 22:41:00 Test Item Value Reference Range Interpretation Comments TROPONIN I (test 0.010 ng/mL See_Comment [Automated code = 5922128882) message] The system which generated this result transmitted reference range : <=0.034. The reference range was not used to interpret this result as normal/abnormal . MARY (test code = Equal or Less than MARY) 0.034 ng/ml---Normal ?Note: Cardiac troponin begins to rise 3-4 hours after the onset of ischemia. Repeat in 4-6 hours if the sample was drawn within 3-4 hours of the onset of the symptom and found normal. Between 0.035 and 0.120 ng/mL--- Borderline. Questionable myocardial injury or necrosis ? ?Note: Serial measurement may be necessary to confirm or exclude the diagnosis of myocardial injury or necrosis; Clinical correlation (symptoms, EKGs, imaging studies, and others) required; Repeat in 4-6 hours if clinically indicated. ? Equal or Higher than 0.121 ng/mL---Abnormal. Myocardial Injury or Necrosis Likely ? Biotin has been reported to cause a negative bias, interpret results relative to patient's use of biotin. ? Lab Interpretation Normal (test code = 77678-6) [facility] HospitalCT HEAD WO [id number] 22:40:19Addendum by Ronaldo Link MD on 02/20/2020 5:45 PM* * * * * * * * ADDENDUM: * * * * * * * *On further review of the scan, the previously mentioned focus ofhyperdensity is likely a focus of mineralization and of no clinicalsignificance. Single focus of hyperdensity is seen anterior and superior to thethirdventricle, indeterminant may represents nonspecific focus ofmineralization, colloid cyst or less likely focal hemorrhage. Attention onfollow-up is recommended.EXAM: CT HEAD WO CONTRAST HISTORY: Altered mental status (AMS), unclear cause TECHNIQUE: CT of the head was performed without intravenous contrast.Sagittal and coronal reformats were generated. COMPARISON: None. FINDINGS: The ventricles and sulci are normal in caliber and configuration. Nohydrocephalus, midline shift or pathological extra-axial fluid collectionis present. The basal cisterns are unremarkable. There is no acute intracranial hemorrhage or significant mass effect.Single tiny focus of hyperdensity is noted anterior and superior to thethird ventricle, nonspecific. No parenchymal attenuation abnormality. Thegray-white matter differentiation is preserved. The mastoid air cells and paranasal air sinuses are clear. The calvariumand central skull base are unremarkable. [facility], Radiant Results Inft User - 02/20/2020 5:41 PM CDTEXAM: CT HEAD WO CONTRASTHISTORY: Altered mental status (AMS), unclear cause TECHNIQUE: CT of the head was performed without intravenous contrast.Sagittal and coronal reformats were generated. COMPARISON: None.FINDINGS: The ventricles and sulci are normal in caliber and configuration. Nohydrocephalus, midline shift or pathological extra-axial fluid collectionis present. The basal cisterns are unremarkable.There is no acute intracranial hemorrhage or significant mass effect.Single tiny focus of hyperdensity is noted anterior and superior to thethird ventricle, nonspecific. No parenchymal attenuation abnormality. Thegray-white matter differentiation is preserved.The mastoid air cells and paranasal air sinuses are clear. The calvariumand central skull base are unremarkable.IMPRESSIONSingle focus of hyperdensity is seen anterior and superior to the thirdventricle, indeterminant may represents nonspecific focus ofmineralization, colloid cyst or less likely focal hemorrhage. Attention onfollow-up is recommended.[facility]. METABOLIC PANEL (41637)2020-02-20 22:30:00 Test Item Value Reference Range Interpretation Comments NA (test code = 139 mmol/L 135-145 1029901631) K (test code = 3.8 mmol/L 3.5-5 7344202061) CL (test code = 104 mmol/L 98-108 4931313011) CO2 TOTAL (test code = 27 mmol/L 23-31 6396522802) AGAP (test code = 2-16 9430245889) BUN (test code = 23 mg/dL 7-23 0996889265) GLUCOSE (test code = 244 mg/dL 70-110 H 2262796615) CREATININE (test code = 0.71 mg/dL 0.5-1.04 9519818515) TOTAL BILI (test code = 1.0 mg/dL 0.1-1.4 3653816207) CALCIUM (test code = 9.4 mg/dL 8.6-10.6 4701537324) T PROTEIN (test code = 7.3 g/dL 6.3-8.2 8737161536) ALBUMIN (test code = 3.4 g/dL 3.5-5 L 1249634113) ALK PHOS (test code = 101 U/L 34-122 9315346384) ALTv (test code = 30 U/L 5-35 1742-6) AST(SGOT) (test code = 76 U/L 13-40 H 5322061161) eGFR Calculation mL/min/1.73m2 (Non-) (test code = 4396232973) eGFR Calculation mL/min/1.73m2 () (test code = 1780957799) MARY (test code = MARY) Association of Glomerular Filtration Rate (GFR) and Staging of Kidney Disease* + --+ --+ ------+| GFR (mL/min/1.73 m2) ?| With Kidney Damage ?| ?Without Kidney Damage+ --------+ --------+ +| ?>90 ?| ?Stage one ?| ? Normal ?+ ---+ ---+ -------+| ?60-89 ?| ?Stage two ?| ? Decreased GFR ? + --+ --+ ------+| ?30-59 ?| ?Stage three ?| ? Stage three ? + --+ --+ ------+| ?15-29 ?| ?Stage four ? | ? Stage four ?+ ---+ ---+ -------+| ?<15 (or dialysis) ? ?| ?Stage five ? | ? Stage five ?+ ---+ ---+ -------+ *Each stage assumes the associated GFR level has been in effect for at least three months. ?Stages 1 to 5, with or without kidney disease, indicate chronic kidney disease. Notes: Determination of stages one and two (with eGFR >59mL/min/1.73 m2) requires estimation of kidney damage for at least three months as defined by structural or functional abnormalities of the kidney, manifested by either:Pathological abnormalities or Markers of kidney damage (including abnormalities in the composition of the blood or urine or abnormalities in imaging tests). Lab Interpretation Abnormal (test code = 88093-4) [facility] HospitalLIPASE2020-04-06 22:30:00 Test Item Value Reference Range Interpretation Comments LIPASE (test code = 4117746759) 62 U/L 0-220 Lab Interpretation (test code = Normal 34545-9) [facility] HospitalAMMONIA, [id number] 22:29:00 Test Item Value Reference Range Interpretation Comments AMMONIA (test code = 6756271601) 48 umol/L 9-33 H Lab Interpretation (test code = Abnormal 63403-3) [facility] HospitalCBC WITH [id number] 22:19:00 Test Item Value Reference Range Interpretation Comments WBC (test code = See_Comment [Automated 6590-2) message] The sy stem which generated this result transmitted reference range : 4.30 - 11.10 10*3/?L. The reference range was not used to interpret this result as normal/abnormal . RBC (test code = See_Comment [Automated 679-8) message] The sy stem which generated this result transmitted reference range : 3.93 - 5.25 10*6/?L. The reference range was not used to interpret this result as normal/abnormal . HGB (test code = 11.8 g/dL 11.6-15 718-7) HCT (test code = 36.0 % 35.7-45.2 4544-3) MCV (test code = 86.3 fL 80.6-95.5 787-2) MCH (test code = 28.3 pg 25.9-32.8 785-6) MCHC (test code = 32.8 g/dL 31.6-35.1 786-4) RDW-SD (test code = 41.2 fL 39-49.9 48002-7) RDW-CV (test code = 13.1 % 12-15.5 788-0) PLT (test code = See_Comment L [Automated 897-3) message] The sy stem which generated this result transmitted reference range : 166 - 358 10*3/ ?L. The reference r glenn was not used to interpret this result as normal/abnormal . MPV (test code = 11.7 fL 9.5-12.9 59031-8) NRBC/100 WBC (test See_Comment [Automat ed code = 0342779243) message] The system which generated this result transmitted reference range : 0.0 - 10.0 /100 WBCs. The refer ence range was not u sed to interpret th is result as normal/abnormal . NRBC x10^3 (test code <0.01 See_Comment [Auto mated = 2284506829) message] The s ystem which generated this result transmitted reference range : 10*3/?L. The reference range was not used to interpret this result as normal/abnormal . GRAN MAT (NEUT) % 66.4 % (test code = 770-8) IMM GRAN % (test code 0.30 % = 0255039708) LYMPH % (test code = 17.6 % 736-9) MONO % (test code = 11.7 % 5905-5) EOS % (test code = 3.3 % 713-8) BASO % (test code = 0.7 % 706-2) GRAN MAT x10^3(ANC) 4.04 10*3/uL 1.88-7.09 (test code = 4679342256) IMM GRAN x10^3 (test <0.03 0-0.06 code = 9036932643) LYMPH x10^3 (test code 1.07 10*3/uL 1.32-3.29 L = 731-0) MONO x10^3 (test code 0.71 10*3/uL 0.33-0.92 = 742-7) EOS x10^3 (test code = 0.20 10*3/uL 0.03-0.39 711-2) BASO x10^3 (test code 0.04 10*3/uL 0.01-0.07 = 704-7) Lab Interpretation Abnormal (test code = 38579-3) [facility] HospitalANTI-MITOCHONDRIAL AB, REFLEX TO TITER 2019-09-28 07:59:00 Test Item Value Reference Range Interpretation Comments SCAN RESULT (test code = 4409002) RESPIRATORY PANEL [id number] 13:14:00 Test Item Value Reference Range Interpretation [...] decisions. This sample was tested at the [facility] using the Veniti Respiratory Panel. It is FDA cleared and has been verified and approved by the [facility] for clinical use on nasopharyngeal swab specimens.The performance of the FilmArrayRP has not been established in individuals who received influenza vaccine. Recent administration of a nasal influenza vaccine may cause false positive results for Influenza A and/orInfluenza B.POCT-GLUCOSE [id number] 13:03:00 Test Item Value Reference Range Interpretation Comments POC-GLUCOSE METER 258 mg/dL 70-110 H : TESTED A T [facility] 6720 (BEAKER) (test code = [facility], 1538) [address]: Store Facility Technician/Techni bravo ID = [id number] for Yue Kennedy POCT-GLUCOSE [id number] 08:53:00 Test Item Value Reference Range Interpretation Comments POC-GLUCOSE METER 197 mg/dL 70-110 H : TESTED A T [facility] 6720 (BEAKER) (test code = [facility], 1538) 22813: Store Facility Technician/Techni bravo ID = [id number] for JOSE LUIS MIX POCT-GLUCOSE [id number] 23:16:00 Test Item Value Reference Range Interpretation Comments POC-GLUCOSE METER 246 mg/dL 70-110 H : TESTED A T [facility] 6720 (BEAKER) (test code = [facility], 1538) 86126: Store Facility Technician/Techni bravo ID = [id number] for GONZÁLEZ SIMS POCT-GLUCOSE [id number] 18:13:00 Test Item Value Reference Range Interpretation Comments POC-GLUCOSE METER 254 mg/dL 70-110 H : TESTED A T [facility] 6720 (BEAKER) (test code = [facility], 1538) 91767: Store Facility Technician/Techni bravo ID = [id number] for ST OJCIC, NADA POCT-GLUCOSE [id number] 13:25:00 Test Item Value Reference Range Interpretation Comments POC-GLUCOSE METER 201 mg/dL 70-110 H : TESTED A T [facility] 6720 (BEAKER) (test code = [facility], 1538) 20946: Store Facility Technician/Techni bravo ID = [id number] for ST OJCIC, NADA POCT-GLUCOSE [id number] 08:22:00 Test Item Value Reference Range Interpretation Comments POC-GLUCOSE METER 184 mg/dL 70-110 H : TESTED A T [facility] 6720 (BEAKER) (test code = [facility], 1538) 17602: Store Facility Technician/Techni bravo ID = [id number] for RILEY KNOX POCT-GLUCOSE [id number] 23:53:00 Test Item Value Reference Range Interpretation Comments POC-GLUCOSE METER 297 mg/dL 70-110 H : TESTED A T [facility] 6720 (BEAKER) (test code = [facility], 1538) 35650: Store Facility Technician/Techni bravo ID = [id number] for MICHAEL CRAIG POCT-GLUCOSE [id number] 18:55:00 Test Item Value Reference Range Interpretation Comments POC-GLUCOSE METER 256 mg/dL 70-110 H : TESTED A T [facility] 6720 (BEAKER) (test code = [facility], 1538) 54554: Store Facility Technician/Techni bravo ID = [id number] for DO BBINS, OFELIA POCT-GLUCOSE [id number] 18:49:00 Test Item Value Reference Range Interpretation Comments POC-GLUCOSE METER 213 mg/dL 70-110 H : TESTED A T [facility] 6720 (BEAKER) (test code = [facility], 1538) 65764: Store Facility Technician/Techni bravo ID = [id number] for DO BBINS, OFELIA POCT-GLUCOSE [id number] 18:44:00 Test Item Value Reference Range Interpretation Comments POC-GLUCOSE METER 216 mg/dL 70-110 H : TESTED A T [facility] 6720 (BEAKER) (test code = [facility], 153) 88877: Store Facility Technician/Techni bravo ID = [id number] for DO BBINS, OFELIA CBC W/PLT COUNT & AUTO [id number] 09:27:00 Test Item Value Reference Range Interpretation [...] PERCENT (BEAKER) (test code = 2801) POCT-GLUCOSE [id number] 00:33:00 Test Item Value Reference Range Interpretation Comments POC-GLUCOSE METER 330 mg/dL 70-110 H : [facility] (test code = TESTED AT [facility] 6870 0496) [facility], [address]: Store Facility Technician/Techni bravo ID = [id number] for Kathryn Hidalgo POCT-GLUCOSE [id number] 18:45:00 Test Item Value Reference Range Interpretation Comments POC-GLUCOSE METER 335 mg/dL 70-110 H : Notified RN/MD: ([facility]) (test code = TESTED AT [facility] 6720 1538) [facility], [address]: Store Facility Technician/Techni bravo ID = [id number] for OL MOSJASE BLOOD GAS, [id number] 15:34:00 Test Item Value Reference Range Interpretation [...] has been upright for 15 minutes.POCT- GLUCOSE [id number] 10:59:00 Test Item Value Reference Range Interpretation Comments POC-GLUCOSE METER 185 mg/dL 70-110 H : TESTED A T [facility] 6720 ([facility]) (test code = [facility], 153) 35362: Store Facility Technician/Techni bravo ID = [id number] for MARIA GUADALUPE COX POCT-GLUCOSE [id number] 07:44:00 Test Item Value Reference Range Interpretation Comments POC-GLUCOSE METER 235 mg/dL 70-110 H : TESTED A T [facility] 6720 ([facility]) (test code = [facility], 153) 21411: Store Facility Technician/Techni bravo ID = [id number] for TWYLA HAWKINS BILIRUBIN, [id number] 06:38:00 Test Item Value Reference Range Interpretation Comments BILIRUBIN DIRECT 0.3 mg/dL 0.1-0.5 Specimen sl ightly (BEAKER) (test code = hemoly zed 706) POCT-GLUCOSE [id number] 23:23:00 Test Item Value Reference Range Interpretation Comments POC-GLUCOSE METER 367 mg/dL 70-110 H : TESTED A T [facility] 6720 (BEAKER) (test code = [facility], 1538) 02765: Store Facility Technician/Techni bravo ID = [id number] for MICHAEL CRAIG POCT-GLUCOSE [id number] 18:06:00 Test Item Value Reference Range Interpretation Comments POC-GLUCOSE METER 296 mg/dL 70-110 H : TESTED A T [facility] 6720 (BEAKER) (test code = [facility], 1538) 13127: Store Facility Technician/Techni brvao ID = [id number] for FLORENCIO CORDOBA POCT-GLUCOSE [id number] 13:06:00 Test Item Value Reference Range Interpretation Comments POC-GLUCOSE METER 234 mg/dL 70-110 H : TESTED A T [facility] 6720 (BEAKER) (test code = [facility], 1538) 05409: Store Facility Technician/Techni bravo ID = [id number] for TWYLA HAWKINS CT, ABDOMEN, [id number] 12:02:00Please scan with liver protocolFINAL REPORT TECHNIQUE: CT of the abdomen WITHOUT and WITH intravenous contrastand WITHOUT oral contrast. Dose modulation, iterative reconstruction, and/or weight-based adjustmentof the mA/kV was utilized to reduce the [...] ascites. No free air.LYMPH NODES: No lymphadenopathy.VESSELS: Recanalizedperiumbilical vein. Prominent portal systemic collateral in the pelvis between the inferior mesenteric vein and inferior vena cava. GI TRACT: No distention or wall thickening. BONES AND SOFT TISSUES: Bilateral breast prostheses. IMPRESSION: 1.No focal hepatic lesions. 2.Cirrhosis with sequelae of portal hypertension including a recanalized periumbilical vein, splenomegaly, and moderate volume ascites. 3.Small bilateral pleural effusions. Signed: Hanh Haile MDReport Verified Date/Time: 09/16/2019 12:02:29 Reading Location: [facility] B1 C013Y CT Body Reading Room POCT-GLUCOSE METER 2019-09-16 10:32:00 Test Item Value Reference Range Interpretation Comments POC-GLUCOSE METER 241 mg/dL 70-110 H : [facility] (test code = [place], 1538) [address]: Store Facility Technician/Techni bravo ID = [id number] for NAVI VÁSQUEZAVELINACynthia HEPATIC FUNCTION [id number] 07:48:00 Test Item Value Reference Range Interpretation [...] = 20 U/L 6-55 347) BASIC METABOLIC [id number] 07:48:00 Test Item Value Reference Range Interpretation [...] 697) EGFR (BEAKER) (test 71 mL/min/1.73 ESTIMA CARLITOS GFR IS code = 1092) sq m NOT ACCURATE CREATININE CLEARANCE IN PREDICTING GLOMERULAR FILTRATION RATE . ESTIMATED GFR I S NOT APPLICABLE FOR DIALYSIS PATIEN TS. PROTHROMBIN [id number] 07:16:00 Test Item Value Reference Range Interpretation [...] is 2.5-3.5 for patients wiht mechanical heart valves.POCT-GLUCOSE [id number] 06:57:00 Test Item Value Reference Range Interpretation Comments POC-GLUCOSE METER 241 mg/dL 70-110 H : TESTED A T [facility] 6720 (BEAKER) (test code = [place], 1538) 36[address]: Store Facility Technician/Techni bravo ID = [id number] for AL BETH CBC W/PLT COUNT & AUTO [id number] 06:53:00 Test Item Value Reference Range Interpretation [...] PERCENT (BEAKER) (test code = 2801) POCT-GLUCOSE [id number] 17:32:00 Test Item Value Reference Range Interpretation Comments POC-GLUCOSE METER 259 mg/dL 70-110 H : TESTED A T [facility] 6720 (BEAKER) (test code = [facility], 1538) 92627: Store Facility Technician/Techni bravo ID = [id number] for TWYLA HAWKINS POCT-GLUCOSE [id number] 15:11:00 Test Item Value Reference Range Interpretation Comments POC-GLUCOSE METER 200 mg/dL 70-110 H : Will Rep eat Test: (SAIDA) (test code = Notifi ed RN/MD: Verify 1538) w/ Lab Draw: TE STED AT [place] [id number] [facility], 770 30: Store Facility Technician/Techni bravo ID = [id number] for NG BARBARA, DANNY HEMOGLOBIN [id number] 13:55:00 Test Item Value Reference Range Interpretation Comments HEMOGLOBIN A1C (SAIDA) (test code = 9.4 % 4.3-6.1 H 368) RAD, CHEST, 1 VIEW, NON [id number] 13:32:00Reason for exam:->SOBShould this be performed at the bedside?->YesFINAL REPORT INDICATION: SOB COMPARISON: None TECHNIQUE: Single frontal view ofthe chest. FINDINGS: Lungs and pleura: Clear lungs. No effusion.Heart and mediastinum: Normal heart size. Unremarkable mediastinal contours.Osseous structures: No acute abnormality.Other: None. IMPRESSION: No acute intrathoracic abnormality. Signed: Mildred Sampson Verified Date/Time: 09/15/2019 13:32:27 Reading Location: [facility] Radiology Reading Room POCT-GLUCOSE [id number] 12:11:00 Test Item Value Reference Range Interpretation Comments POC-GLUCOSE METER 227 mg/dL 70-110 H : TESTED A [facility] 6720 (BEAKER) (test code = [facility], 1538) [id number]: Store Facility Technician/Techni bravo ID = [id number] for MAXX EDWARDS (CELLAVISION MANUAL DIFF)2019-09-15 09:13:00 [...] 3438) Received comment: User comments: Slide comments:POCT-GLUCOSE [id number] 08:34:00 Test Item Value Reference Range Interpretation Comments POC-GLUCOSE METER 219 mg/dL 70-110 H : TESTED A [facility] 6720 (BEAKER) (test code = [place], 1538) [id number]: Store Facility Technician/Techni bravo ID = [id number] for Or January arana [id number] 07:30:00 Test Item Value Reference Range Interpretation Comments FERRITIN (BEAKER) (test code = 361) 11 ng/mL 5-275 HEPATITIS A ANTIBODY, [id number] 06:17:00 Test Item Value Reference Range Interpretation Comments HEPATITIS A IGG ANTIBODY (BEAKER) Reactive Nonreactive A (test code = 2797) CBC W/PLT COUNT & AUTO [id number] 05:50:00 Test Item Value Reference Range Interpretation [...] (BEAKER) (test code = 413) COMPREHENSIVE METABOLIC [id number] 05:49:00 Test Item Value Reference Range Interpretation [...] 347) EGFR (BEAKER) (test 76 mL/min/1.73 ESTIMA CARLITOS GFR IS code = 1092) sq m NOT ACCURATE CREATININE CLEARANCE IN PREDICTING GLOMERULAR FILTRATION RATE . ESTIMATED GFR I S NOT APPLICABLE FOR DIALYSIS PATIEN TS. HEPATITIS B SURFACE [id number] 05:48:00 Test Item Value Reference Range Interpretation Comments HEPATITIS B SURFACE ANTIBODY < mIU/mL <8.0 (BEAKER) (test code = 647) HEPATIC FUNCTION [id number] 05:44:00 Test Item Value Reference Range Interpretation [...] 0-100 H (test code = 700) PROTHROMBIN [id number] 05:23:00 Test Item Value Reference Range Interpretation [...] is 2.5-3.5 for patients wiht mechanical heart valves.POCT-GLUCOSE [id number] 21:42:00 Test Item Value Reference Range Interpretation Comments POC-GLUCOSE METER 286 mg/dL 70-110 H : TESTED Bette [facility] 6720 (BEAKER) (test code = [place], 1538) [id number]: Store Facility Technician/Techni bravo ID = [id number] for BA SAKINA SANZL POCT-GLUCOSE [id number] 19:12:00 Test Item Value Reference Range Interpretation Comments POC-GLUCOSE METER 219 mg/dL 70-110 H : TESTED A [facility] 6720 (BEAKER) (test code = [place], 1538) [id number]: Store Facility Technician/Techni bravo ID = [id number] for RUFINO HIGGINS CREATININE, RANDOM [id number] 19:07:00 Test Item Value Reference Range Interpretation Comments CREATININE URINE (BEAKER) (test 63.7 mg/dL code = 375) Reference Range: No NormalsSODIUM, RANDOM [id number] 19:07:00 Test Item Value Reference Range Interpretation Comments SODIUM URINE (BEAKER) (test code = 66 meq/L 243) Reference Range: No NormalsURINALYSIS W/ REFLEX URINE [id number] 18:51:00 Test Item Value Reference Range Interpretation [...] 173 mg/dL 22-293 (test code = 638) [id number] 17:00:00 Test Item Value Reference Range Interpretation Comments ALPHA-1 ANTITRYPSIN (BEAKER) 104.20 mg/dL 90.00-200.00 (test code = 502) [id number] 15:44:00 Test Item Value Reference Range Interpretation Comments FERRITIN (BEAKER) (test code = 361) 4 ng/mL 5-275 L HEMOGLOBIN AND [id number] 14:54:00 Test Item Value Reference Range Interpretation [...] mg/dL 540-1,822 (test code = 427) POCT-GLUCOSE [id number] 13:43:00 Test Item Value Reference Range Interpretation Comments POC-GLUCOSE METER 175 mg/dL 70-110 H : Notified RN/: TESTED (SAIDA) (test code AT [place] [address] [place] = 1538) [facility], [facility] 30: Store Facility Technician/Techni bravo ID = [id number] for MOOD Y, SHAWNTELL POCT-GLUCOSE [id number] 09:14:00 Test Item Value Reference Range Interpretation Comments POC-GLUCOSE METER 200 mg/dL 70-110 H : Notified RN/: TESTED (SAIDA) (test code AT [place] [address] [address] = 1538) [facility], [facility] 30: Store Facility Technician/Techni bravo ID = [id number] for MOOD Y, SHAWNTELL HEPATITIS PANEL, [id number] 03:41:00 Test Item Value Reference Range Interpretation Comments HEPATITIS A IGM ANTIBODY (BEAKER) Nonreactive Nonreactive (test code = 498) HEPATITIS B CORE IGM ANTIBODY Nonreactive Nonreactive (BEAKER) (test code = 645) HEPATITIS C ANTIBODY (BEAKER) Nonreactive Nonreactive (test code = 367) HEPATITIS B SURFACE ANTIGEN (2) Nonreactive Nonreactive (BEAKER) (test code = 2585) TROPONIN [id number] 03:25:00 Test Item Value Reference Range Interpretation [...] H (test code = 700) BASIC METABOLIC [id number] 03:12:00 Test Item Value Reference Range Interpretation [...] 697) EGFR (BEAKER) (test 73 mL/min/1.73 ESTIMA CARLITOS GFR IS code = 1092) sq m NOT ACCURATE CREATININE CLEARANCE IN PREDICTING GLOMERULAR FILTRATION RATE . ESTIMATED GFR I S NOT APPLICABLE FOR DIALYSIS PATIEN TS. HEPATIC FUNCTION [id number] 03:12:00 Test Item Value Reference Range Interpretation [...] slightly (test code = 347) hemolyzed PROTHROMBIN [id number] 03:09:00 Test Item Value Reference Range Interpretation [...] is 2.5-3.5 for patients wiht mechanical heart valves.CBC W/PLT COUNT & AUTO [id number] 02:56:00 Test Item Value Reference Range Interpretation [...]
[2023-03-13] MEDS ORDERED: NA CHLORIDE 0.9% 250 ML ONE ×2 (12:54→16:23)
[2023-03-13] MEDS ORDERED: HYDROCORTISONE SUC 100 MG INJ ONE (12:55)
[2023-03-13] MEDS ORDERED: DEXTROSE ORAL 40% 15 GM TUBE ONE (15:37)
--- NOTE | 2023-03-13 16:40 | EDPHYS ---
Physician Documentation [facility] Name: Rena Burch Age: 72 yrs Sex: Female : 1950 Arrival Date: 03/13/2023 Time: 11:00 Bed 20 Private MD: ED Physician Boogie Archer HPI: 03/13 11:35 This 72 yrs old Female presents to ER via Wheelchair with complaints of Abnormal Lab snw Results. 11:35 Pt has a paracentesis every Thursday second to JESUS. Pt sees Dr. Waller. Last week H/H was snw low but this week it is even lower and Dr. Waller left orders for blood transfusion prn.. Onset: The symptoms/episode began/occurred acutely. Severity of symptoms: At their worst the symptoms were mild in the emergency department the symptoms are unchanged. The patient has experienced similar episodes in the past. as noted. Paracentesis was completed prior to pt arriving in ED. Historical: - Allergies: 11:19 No Known Allergies; hb - PMHx: 11:19 COPD; Diabetes - IDDM; fatty liver; Hypertension; Psoriatic Arthritis; hb - Immunization history:: Adult Immunizations up to date. - Social history:: Smoking status: Patient denies any tobacco usage or history of. ROS: 11:34 Eyes: Negative for injury, pain, redness, and discharge, ENT: Negative for injury, snw pain, and discharge, Neck: Negative for injury, pain, and swelling, Cardiovascular: Negative for chest pain, palpitations, and edema, Respiratory: Negative for shortness of breath, cough, wheezing, and pleuritic chest pain, Abdomen/GI: Negative for abdominal pain, nausea, vomiting, diarrhea, and constipation, Back: Negative for injury and pain, : Negative for injury, bleeding, discharge, and swelling, MS/Extremity: Negative for injury and deformity, Skin: Negative for injury, rash, and discoloration, Neuro: Negative for headache, weakness, numbness, tingling, and seizure, Psych: Negative for depression, anxiety, suicide ideation, homicidal ideation, and hallucinations. 11:34 Constitutional: Positive for malaise. Exam: 11:32 Constitutional: This is a well developed, well nourished patient who is awake, alert, snw and in no acute distress. Head/Face: Normocephalic, atraumatic. 11:32 ENT: Nares patent. No nasal discharge, no septal abnormalities noted. Tympanic membranes are normal and external auditory canals are clear. Oropharynx with no redness, swelling, or masses, exudates, or evidence of obstruction, uvula midline. Mucous membranes moist. Neck: Trachea midline, no thyromegaly or masses palpated, and no cervical lymphadenopathy. Supple, full range of motion without nuchal rigidity, or vertebral point tenderness. No Meningismus. Chest/axilla: Normal chest wall appearance and motion. Nontender with no deformity. No lesions are appreciated. Cardiovascular: Regular rate and rhythm with a normal S1 and S2. No gallops, murmurs, or rubs. Normal PMI, no JVD. No pulse deficits. Respiratory: Lungs have equal breath sounds bilaterally, clear to auscultation and percussion. No rales, rhonchi or wheezes noted. No increased work of breathing, no retractions or nasal flaring. 11:32 Back: No spinal tenderness. No costovertebral tenderness. Full range of motion. MS/ Extremity: Pulses equal, no cyanosis. Neurovascular intact. Full, normal range of motion. Neuro: Awake and alert, GCS 15, oriented to person, place, time, and situation. Cranial nerves II-XII grossly intact. Motor strength 5/5 in all extremities. Sensory grossly intact. Cerebellar exam normal. Normal gait. Psych: Awake, alert, with orientation to person, place and time. Behavior, mood, and affect are within normal limits. 11:32 Eyes: Conjunctiva: pale, bilaterally, Sclera: icterus, mild. 11:32 Abdomen/GI: Inspection: soft, s/p paracentesis. Pt has had 2.5 bottles albumin per report. Denies blood in drainage canisters. 11:32 Skin: Appearance: Color: jaundiced, Temperature: normal temperature. Vital Signs: 11:16 BP 162 / 117; Pulse 60; Resp 18; Temp 97.8; Pulse Ox 100% on R/A; hb 11:22 BP 134 / 58; snw 12:20 BP 126 / 54; Pulse 59; Resp 18; Pulse Ox 100% on R/A; eh3 15:30 BP 138 / 45; Pulse 62; Resp 16; Pulse Ox 100% on R/A; hb 17:46 BP 161 / 46; Pulse 66; Resp 16; Pulse Ox 99% ; hb 18:16 BP 131 / 48; Pulse 66; Resp 16; Pulse Ox 100% on R/A; hb 19:30 BP 138 / 49; Pulse 65; Resp 18 S; Pulse Ox 100% on R/A; ha1 MDM: 11:22 Patient medically screened. snw 13:02 Differential Diagnosis chronic bleed vs acute bleed. Data reviewed: vital signs, nurses snw notes, diagnostic data from outside facility, labs from procedure this am. Care significantly affected by the following chronic conditions: LEE. Counseling: I had a detailed discussion with the patient and/or guardian regarding: the historical points, exam findings, and any diagnostic results supporting the discharge/admit diagnosis, the need for outpatient follow up, for definitive care, to return to the emergency department if symptoms worsen or persist or if there are any questions or concerns that arise at home. Awaiting: blood transfusion completion. 03/13 11:27 Order name: Bb Add On [facility] 03/13 11:27 Order name: TS [facility] 03/13 11:35 Order name: Packed RBC Leukored [facility] 03/13 15:56 Order name: Packed RBCs (Additional Unit) [facility] 03/13 19:42 Order name: Hemoglobin; Complete Time: 19:47 [facility] 03/13 19:42 Order name: Hematocrit; Complete Time: 19:47 [facility] 03/13 11:27 Order name: Diet Soft; Complete Time: 11:27 [facility] 03/13 16:43 Order name: Diet 2 Gm Sodium; Complete Time: 16:44 mm9 03/13 11:27 Order name: PIV; Complete Time: 11:42 [facility] 03/13 18:41 Order name: Misc. Order: Repeat H\T\H at 1915 jl7 Administered Medications: No medications were administered Disposition: 12:09 Co-signature as Attending Physician, Boogie Archer DO I was immediately available on-site ms3 in the Emergency Department for consultation in the care of the patient. Disposition Summary: 03/13/23 16:40 Discharge Ordered Location: Home snw Condition: Stable snw Diagnosis - Nonspecific reactive hepatitis snw - Anemia in other chronic diseases classified elsewhere snw Followup: snw - With: Emergency Department - When: As needed - Reason: Worsening of condition Followup: snw - With: Private Physician - When: 2 - 3 days - Reason: Recheck today's complaints, Continuance of care, Re-evaluation by your physician Discharge Instructions: - Discharge Summary Sheet snw - Anemia snw - Blood Transfusion, Adult snw - Blood Transfusion, Adult, Care After, [id number] snw Forms: - Medication Reconciliation Form snw - Thank You Letter snw - Antibiotic Education snw - Prescription Opioid Use snw Signatures: Dispatcher [employer] EDMS Lexi Cabral, CLINICAL NURSE OCCUPATIONAL MEDICINE-C CLINICAL NURSE OCCUPATIONAL MEDICINE-Csnw Sherry Jones, RN RN Neri Zapata RN RN jl7 Boogie Archer, DO ms3
--- NOTE | 2023-03-13 16:40 | ER ---
Nurse's Notes [facility] Name: Rena Burch Age: 72 yrs Sex: Female : 1950 Arrival Date: 03/13/2023 Time: 11:00 Bed 20 Private MD: Diagnosis: Nonspecific reactive hepatitis;Anemia in other chronic diseases classified elsewhere Presentation: 03/13 11:16 Chief complaint: Sent by Dr. Waller for H\T\H 5.6/18.2. Pt came from [facility] after paracentesis hb this morning, took 3.3L out, received albumin 37.5 to 20g LAC. Coronavirus screen: At this time, the client does not indicate any symptoms associated with coronavirus-19. Ebola Screen: No symptoms or risks identified at this time. Initial Sepsis Screen: Does the patient meet any 2 criteria? No. Patient's initial sepsis screen is negative. Does the patient have a suspected source of infection? No. Patient's initial sepsis screen is negative. Risk Assessment: Do you want to hurt yourself or someone else? Patient reports no desire to harm self or others. Onset of symptoms was March 13, 2023. 11:16 Method Of Arrival: Wheelchair hb 11:16 Acuity: CHEIKH 3 hb 16:42 Acuity: CHEIKH 2 jl7 Historical: - Allergies: 11:19 No Known Allergies; hb - PMHx: 11:19 COPD; Diabetes - IDDM; fatty liver; Hypertension; Psoriatic Arthritis; hb - Immunization history:: Adult Immunizations up to date. - Social history:: Smoking status: Patient denies any tobacco usage or history of. Screenin:30 [facility] ED Fall Risk Assessment (Adult) Score/Fall Risk Level 0 - 2 = Low Risk. Abuse eh3 screen: Denies threats or abuse. Denies injuries from another. Nutritional screening: No deficits noted. Tuberculosis screening: No symptoms or risk factors identified. Assessment: 11:30 General: Appears in no apparent distress. comfortable, Behavior is calm, cooperative, eh3 appropriate for age. Pain: Complains of pain in abdomen. Neuro: Level of Consciousness is awake, alert, obeys commands, Oriented to person, place, time, situation. Cardiovascular: Capillary refill < 3 seconds Patient's skin is warm and dry. Respiratory: Airway is patent Respiratory effort is even, unlabored, Respiratory pattern is regular, symmetrical. GI: Abdomen is round non-distended. : No signs and/or symptoms were reported regarding the genitourinary system. EENT: No signs and/or symptoms were reported regarding the EENT system. Derm: Skin is pale. Musculoskeletal: Circulation, motion, and sensation intact. 12:30 Reassessment: Patient appears in no apparent distress at this time. Patient and/or 3 family updated on plan of care and expected duration. Pain level reassessed. Patient is alert, oriented x 3, equal unlabored respirations, skin warm/dry/pink. 13:15 Reassessment: First unit PRBCs started, see transfusion flowsheet. hb 13:34 Reassessment: Daughter Elizabeth [phone]. hb 14:07 Reassessment: Patient appears in no apparent distress at this time. No changes from hb previously documented assessment. Patient and/or family updated on plan of care and expected duration. Pain level reassessed. 15:34 Reassessment: 1st unit of blood infusion completed, awaiting lab to send blood unit jl7 request form for second unit. 16:40 Reassessment: Second unit PRBCs started, see transfusion flowsheet. hb 18:15 Reassessment: Second unit complete, plan is to recheck CBC in one hour per SCREW MACHINE REPAIRER Lexi. hb PT updated on POC. 19:30 Reassessment: Patient and/or family updated on plan of care and expected duration. Pain ha1 level reassessed. Patient is alert, oriented x 3, equal unlabored respirations, skin warm/dry/pink. awaiting on H and H blood work results. 20:30 Reassessment: Patient and/or family updated on plan of care and expected duration. Pain ha1 level reassessed. Patient is alert, oriented x 3, equal unlabored respirations, skin warm/dry/pink. Vital Signs: 11:16 BP 162 / 117; Pulse 60; Resp 18; Temp 97.8; Pulse Ox 100% on R/A; hb 11:22 BP 134 / 58; snw 12:20 BP 126 / 54; Pulse 59; Resp 18; Pulse Ox 100% on R/A; eh3 15:30 BP 138 / 45; Pulse 62; Resp 16; Pulse Ox 100% on R/A; hb 17:46 BP 161 / 46; Pulse 66; Resp 16; Pulse Ox 99% ; hb 18:16 BP 131 / 48; Pulse 66; Resp 16; Pulse Ox 100% on R/A; hb 19:30 BP 138 / 49; Pulse 65; Resp 18 S; Pulse Ox 100% on R/A; ha1 ED Course: 11:06 Patient arrived in ED. eb 11:14 Lexi Cabral F[facility]-C [facility]. snw 11:14 Boogie Archer DO is Attending Physician. snw 11:19 Triage completed. hb 11:19 Arm band placed on. hb 11:30 Patient has correct armband on for positive identification. Placed in gown. Bed in low eh3 position. Call light in reach. Side rails up X2. Adult w/ patient. Pulse ox on. NIBP on. Door closed. Noise minimized. Warm blanket given. Diet: Patient given snack. 11:42 Bb Add On Sent. eh3 13:00 Sherry Jones RN is Primary Nurse. eh3 16:44 Diet: LOW SODIUM. mm9 19:25 Primary Nurse role handed off by Sherry Jones RN 19:37 Mona Nicolas, LAINA is Primary Nurse. ha1 20:40 No provider procedures requiring assistance completed. IV discontinued, intact, ha1 bleeding controlled, No redness/swelling at site. Pressure dressing applied. Administered Medications: No medications were administered Medication: 17:46 VIS not applicable for this client. hb Outcome: 16:40 Discharge ordered by . snw 20:30 Condition: stable ha1 20:30 Discharge instructions given to patient, family, Instructed on discharge instructions, ha1 follow up and referral plans. Demonstrated understanding of instructions, follow-up care. 20:30 Discharged to home via wheelchair, with family. ha1 20:38 Patient left the ED. ha1 Signatures: Lexi Cabral FNP-C BRAND INSPECTOR-Csnw Sherry Jones RN LAINA Neri Zapata RN RN jl7 Nydia Alvarado Wendy Khalida Machuca RN RN 3 Mona Nicolas RN RN ha1 Leanne Swain mm9 Corrections: (The following items were deleted from the chart) 18:16 17:15 Reassessment: Second unit PRBCs started, see transfusion flowsheet. hb hb 21:59 11:26 Khalida Machuca RN is Primary Nurse. [place] [id number] 15:23 Primary Nurse role handed off by Khalida Machuca RN [facility] 15:23 Sherry Jones RN is Primary Nurse. [facility] 22:00 15:23 Sherry Jones RN is Primary Nurse. [place] [id number]
[2023-03-13 19:46] LABS: Hematocrit 22.9 % (36.0-45.0)
[2023-03-13 21:16] VITALS: TEMP 97.8
[2023-03-13 21:23] VITALS: BP 131/48; O2SAT 100
== END 2023-03-13 20:38 | disposition home or self-care (01) ==
LOC: ER 11:00
PROC: 30233N1 Transfusion of Nonautologous Red Blood Cells into Peripheral Vein, Percutaneous Approach (ICD-10-PCS; principal; 2023-03-13)
DX: K75.2 Nonspecific reactive hepatitis (principal); D63.8 Anemia in other chronic diseases classified elsewhere; E11.9 Type 2 diabetes mellitus without complications; I10 Essential (primary) hypertension
CPT/HCPCS: 36415; 86900; 86850; 86901; 86920 ×2; 85018; 85014; 36430; J1720; P9016 ×2; J7050 ×2; 99284

== ENCOUNTER 2023-03-20 08:05 | Day surgery (SDC) | payer OTHER, BC ==
[2023-03-20] MEDS ORDERED: ALBUMIN HUMAN 25% 300 ML IV ONE (10:33)
[2023-03-20 11:07] VITALS: TEMP 98; O2SAT 100
[2023-03-20 11:09] VITALS: BMI 28.5
[2023-03-20 11:25] VITALS: BP 140/42
[2023-03-20 14:05] LABS: Appearance SLT. TURBID (CLEAR); Body Fluid Source PERITONEAL; Body Fluid WBC 82 /mm^3; Color of fluid Yellow (COLORLESS)
--- NOTE | 2023-03-20 14:33 | RAD REPORT ---
EXAM DESCRIPTION: US - Paracentesis Proc Guidance - 03/20/2023 10:23 am CLINICAL HISTORY: ASCITES Ascites COMPARISON: Paracentesis Proc Guidance dated 03/13/2023 FINDINGS: Informed consent was obtained and time-out was performed. Patient's abdomen was prepped and draped in the usual sterile fashion. 1% lidocaine was used for loca l anesthetic purposes. A small skin incision was made. A paracentesis catheter was guided into the peroneal cavity under son ographic guidance, until return of clear straw color ascites was visualized. A large volume paracentesis was performed, with a total of 6.3 liter of ascitic fluid drained. The patient tolerated the procedure well. Patient was administered IV albumin per protocol following the procedure. IMPRESSION: Successful ultrasound-guided paracentesis.
== END 2023-03-20 12:26 | disposition home or self-care (01) ==
LOC: DS 08:05
PROVIDERS: ATTEND Legal Medicine
DX: R18.8 Other ascites (principal); R14.0 Abdominal distension (gaseous)
CPT/HCPCS: 87070; 36415; 89050; 84157; 96365; 49083; P9047

== ENCOUNTER 2023-03-27 07:52 | Day surgery (SDC) | payer OTHER, BC ==
[2023-03-27 08:24] VITALS: BP 134/40; TEMP 98.1; O2SAT 100; BMI 31.1
--- NOTE | 2023-03-27 10:09 | RAD REPORT ---
EXAM DESCRIPTION: US - Paracentesis Proc Guidance - 03/27/2023 9:38 am CLINICAL HISTORY: ASCITES Ascites COMPARISON: No comparisonsParacentesis Proc Guidance dated 03/20/2023 FINDINGS: Informed consent was obtained and time-out was performed. Patient's abdomen was prepped and draped in the usual sterile fashion. 1% lidocaine was used for loca l anesthetic purposes. A small skin incision was made. A paracentesis catheter was guided into the peroneal cavity under son ographic guidance. A small amount of fluid was sent for requested lab studies. A large volume paracentesis was performed . The patient tolerated the procedure well. Patient was administered IV albumin per protocol following the procedure. IMPRESSION: Successful ultrasound-guided paracentesis.
[2023-03-27] MEDS ORDERED: ALBUMIN HUMAN 25% 200 ML IV ONE (10:26)
[2023-03-27 13:31] LABS: Appearance CLEAR (CLEAR); Body Fluid Source PERITONEAL; Color of fluid Yellow (COLORLESS)
[2023-03-27 13:32] LABS: Body Fluid WBC 62 /mm^3
== END 2023-03-27 11:14 | disposition home or self-care (01) ==
LOC: DS 07:52
PROVIDERS: ATTEND Legal Medicine
DX: R18.8 Other ascites (principal); R14.0 Abdominal distension (gaseous)
CPT/HCPCS: 87070; 36415; 89050; 84157; 96365; 49083; P9047

== ENCOUNTER 2023-04-03 07:44 | Day surgery (SDC) | payer OTHER, BC ==
[2023-04-03 08:11] VITALS: BMI 32.1
[2023-04-03] MEDS ORDERED: ALBUMIN HUMAN 25% 300 ML IV ONE (09:34)
[2023-04-03 10:55] VITALS: BP 144/39; TEMP 96.7; O2SAT 99
--- NOTE | 2023-04-03 12:49 | RAD REPORT ---
EXAM DESCRIPTION: US - Paracentesis Proc Guidance - 04/03/2023 9:27 am CLINICAL HISTORY: ASCITES Ascites COMPARISON: Paracentesis Proc Guidance dated 03/27/2023 FINDINGS: Informed consent was obtained and time-out was performed. Patient's abdomen was prepped and draped in the usual sterile fashion. 1% lidocaine was used for loca l anesthetic purposes. A small skin incision was made. A paracentesis catheter was guided into the peroneal cavity under son ographic guidance. A total of 5.5 liters of ascitic fluid were drained. The patient tolerated the procedure well. Patient was administered IV albumin per protocol following the procedure. IMPRESSION: Successful ultrasound-guided therapeutic paracentesis.
[2023-04-03 13:13] LABS: Body Fluid WBC 61 /mm^3
[2023-04-03 13:32] LABS: Appearance CLEAR (CLEAR); Body Fluid Source PERITONEAL; Color of fluid Yellow (COLORLESS)
== END 2023-04-03 11:15 | disposition home or self-care (01) ==
LOC: DS 07:44
PROVIDERS: ATTEND Legal Medicine
DX: R18.8 Other ascites (principal); R14.0 Abdominal distension (gaseous)
CPT/HCPCS: 87070; 36415; 89050; 84157; 96365; 49083; 96366; P9047

== ENCOUNTER 2023-04-10 07:45 | Day surgery (SDC) | payer OTHER, BC ==
[2023-04-10 08:37] VITALS: BMI 32.1
[2023-04-10 08:37] LABS: MPV 9.4 fL (7.6-11.3)
[2023-04-10 08:38] LABS: Protime INR 1.27
[2023-04-10] MEDS ORDERED: ALBUMIN HUMAN 25% 200 ML IV ONE (10:23)
[2023-04-10 10:59] VITALS: BP 132/48; TEMP 98; O2SAT 99
--- NOTE | 2023-04-10 11:11 | RAD REPORT ---
EXAM DESCRIPTION: US - Paracentesis Proc Guidance - 04/10/2023 10:20 am CLINICAL HISTORY: Liver disease with ascites FINDINGS: The risks, benefits and alternatives to the procedure were explained to the patient and in formed consent obtained. The skin and subcutaneous tissues were anesthetized with Lidocaine. Under sonographic guidance an 8 F rench catheter was placed into the right lower quadrant. Five liters of yellow fluid removed. Fluid s ent to the lab. The patient experienced no immediate complication. IMPRESSION: Paracentesis
[2023-04-10 16:43] LABS: Body Fluid Source PERITONEAL
[2023-04-10 16:44] LABS: Color of fluid Yellow (COLORLESS)
[2023-04-10 16:48] LABS: Appearance CLEAR (CLEAR); Body Fluid WBC 44 /mm^3
== END 2023-04-10 12:05 | disposition home or self-care (01) ==
LOC: DS 07:45
PROVIDERS: ATTEND Legal Medicine
DX: R18.8 Other ascites (principal); K75.81 Nonalcoholic steatohepatitis (NASH); Z76.82 Awaiting organ transplant status
CPT/HCPCS: 36415; 89050; 87205; 85049; 84157; 85610; 85730; 96365; 49083; P9047

== ENCOUNTER 2023-04-17 08:00 | Day surgery (SDC) | payer OTHER, BC ==
[2023-04-17 09:16] VITALS: BMI 32.1
[2023-04-17] MEDS ORDERED: ALBUMIN HUMAN 25% 50 ML IV ONE (10:03)
[2023-04-17] MEDS ORDERED: ALBUMIN HUMAN 25% 200 ML IV ONE (10:03)
--- NOTE | 2023-04-17 10:10 | RAD REPORT ---
EXAM DESCRIPTION: US - Paracentesis Proc Guidance - 04/17/2023 10:01 am CLINICAL HISTORY: Liver disease with ascites FINDINGS: The risks, benefits and alternatives to the procedure were explained to the patient and in formed consent obtained. The skin and subcutaneous tissues were anesthetized with Lidocaine. Under sonographic guidance an 8 F rench catheter was placed into the left lower quadrant. 5.5 liters of yellow fluid removed. Fluid sen t to the lab. The patient experienced no immediate complication. IMPRESSION: Paracentesis
[2023-04-17 11:23] VITALS: O2SAT 100
[2023-04-17 13:39] LABS: Appearance CLEAR (CLEAR); Body Fluid Source PERITONEAL; Body Fluid WBC 28 /mm^3; Color of fluid Yellow (COLORLESS)
[2023-04-17 13:45] VITALS: BP 136/54; TEMP 97.6
== END 2023-04-17 12:30 | disposition home or self-care (01) ==
LOC: DS 08:00
PROVIDERS: ATTEND Legal Medicine
DX: R18.8 Other ascites (principal); K75.81 Nonalcoholic steatohepatitis (NASH); Z76.82 Awaiting organ transplant status
CPT/HCPCS: 87070; 36415; 89050; 84157; 96365; 49083; P9047 ×2; 87077; 87186

== ENCOUNTER → 2023-04-24 | Day surgery (SDC) | payer OTHER, BC ==
[~2023-04-24] MED LIST changes: +ALBUMIN HUMAN 25% 200 ML IV ONE; -ALBUMIN HUMAN 25% 300 ML IV ONE
--- NOTE | 2023-04-24 10:21 | RAD REPORT ---
EXAM DESCRIPTION: US - Paracentesis Proc Guidance - 04/24/2023 10:03 am CLINICAL HISTORY: ASCITES Ascites COMPARISON: <Comparisons> FINDINGS: Informed consent was obtained and time-out was performed. Patient's abdomen was prepped and draped in the usual sterile fashion. 1% lidocaine was used for loca l anesthetic purposes. A small skin incision was made RLQ. A paracentesis catheter was guided into the peroneal cavity under sonographic guidance. A small amount of fluid was sent for requested lab studies. A large volume paracentesis was performed . The patient tolerated the procedure well. Patient was administered IV albumin per protocol following the procedure. IMPRESSION: Successful ultrasound-guided paracentesis.
[2023-04-24 11:40] VITALS: O2SAT 100; BMI 30.1
[2023-04-24 11:49] VITALS: BP 128/36; TEMP 97.4
[2023-04-24 14:38] LABS: Body Fluid Source PERITONEAL; Color of fluid Yellow (COLORLESS)
[2023-04-24 14:39] LABS: Appearance SLT. TURBID (CLEAR)
[2023-04-24 14:40] LABS: Body Fluid WBC 29 /mm^3
== END ==
LOC: DS 08:34
PROVIDERS: ATTEND Legal Medicine
DX: R18.8 Other ascites (principal); K75.81 Nonalcoholic steatohepatitis (NASH); Z76.82 Awaiting organ transplant status
CPT/HCPCS: 87070; 36415; 89050; 84157; 96365; 49083; P9047

== ENCOUNTER 2023-05-01 08:54 | Day surgery (SDC) | payer OTHER, BC ==
--- NOTE | 2023-05-01 11:25 | RAD REPORT ---
EXAM DESCRIPTION: US - Paracentesis Proc Guidance - 05/01/2023 11:17 am CLINICAL HISTORY: ASCITES Ascites COMPARISON: Paracentesis Proc Guidance dated 04/24/2023 FINDINGS: Informed consent was obtained and time-out was performed. Patient's abdomen was prepped and draped in the usual sterile fashion. 1% lidocaine was used for loca l anesthetic purposes. A small skin incision was made. A paracentesis catheter was guided into the peroneal cavity under son ographic guidance. A small amount of fluid was sent for requested lab studies. A large volume paracentesis was performed . The patient tolerated the procedure well. Patient was administered IV albumin per protocol following the procedure. IMPRESSION: Successful ultrasound-guided paracentesis.
[2023-05-01] MEDS ORDERED: ALBUMIN HUMAN 25% 200 ML IV ONE (11:29)
[2023-05-01 13:29] LABS: Body Fluid Source PERITONEAL; Color of fluid Yellow (COLORLESS)
[2023-05-01 13:30] LABS: Appearance CLEAR (CLEAR); Body Fluid WBC 56 /mm^3
[2023-05-01 14:43] VITALS: O2SAT 100; BMI 30.1
[2023-05-01 14:45] VITALS: BP 131/51; TEMP 97.8
== END 2023-05-01 12:20 | disposition home or self-care (01) ==
LOC: DS 08:54
PROVIDERS: ATTEND Legal Medicine
DX: R18.8 Other ascites (principal); K75.81 Nonalcoholic steatohepatitis (NASH); Z76.82 Awaiting organ transplant status
CPT/HCPCS: 87070; 36415; 89050; 84157; 96365; 49083; P9047

== ENCOUNTER 2023-05-15 07:43 | Day surgery (SDC) | payer OTHER, BC ==
[2023-05-15 08:49] VITALS: BMI 30.1
[2023-05-15 08:53] VITALS: O2SAT 100
[2023-05-15 08:56] LABS: MPV 9.2 fL (7.6-11.3)
[2023-05-15 09:02] LABS: Protime INR 1.24
[2023-05-15] MEDS ORDERED: ALBUMIN HUMAN 25% 300 ML IV ONE (10:59)
--- NOTE | 2023-05-15 12:38 | RAD REPORT ---
EXAM DESCRIPTION: US - Paracentesis Proc Guidance - 05/15/2023 10:19 am CLINICAL HISTORY: ASCITES COMPARISON: Paracentesis Proc Guidance dated 05/01/2023 FINDINGS: Informed consent was obtained and time-out was performed. Patient's abdomen was prepped and draped in the usual sterile fashion. 1% lidocaine was used for loca l anesthetic purposes. A small skin incision was made. A paracentesis catheter was guided into the peroneal cavity under son ographic guidance. A small amount of fluid was sent for requested lab studies. A large volume paracentesis was performed . The patient tolerated the procedure well. Patient expressed new symptoms of left-sided weakness, during the last week, for which revaluation in the emergency department was recommended following the paracentesis. Patient based to receive IV alb umin per protocol following the procedure. IMPRESSION: Successful ultrasound-guided paracentesis. Total volume of situs drained: 5.8 liters.
[2023-05-15 13:12] VITALS: BP 104/57; TEMP 99.7
[2023-05-15 13:47] LABS: Body Fluid WBC 41 /mm^3
[2023-05-15 15:32] LABS: Body Fluid Source PERITONEAL
[2023-05-15 15:33] LABS: Appearance CLEAR (CLEAR); Color of fluid Yellow (COLORLESS)
== END 2023-05-15 11:58 | disposition still patient (30) ==
LOC: DS 07:43
PROVIDERS: ATTEND Legal Medicine
DX: R18.8 Other ascites (principal); K75.81 Nonalcoholic steatohepatitis (NASH); Z76.82 Awaiting organ transplant status
CPT/HCPCS: 87070; 36415; 89050; 85049; 84157; 85610; 85730; 49083; P9047

== ENCOUNTER 2023-05-15 11:48 | Emergency (ER) | payer OTHER, BC ==
--- OUTSIDE RECORDS SUMMARY | 2023-05-15 12:03 | XMS REPORT | Continuity of Care Document ---
:1950 Author Organization [facility] t Address [address] [place] [address] [address] [place] [address] Care Team Providers Name Role Phone No, Pcp [facility] Primary Care Physician Unavailable Jacek Ledesma Attending Clinician Unavailable Rufino Edwards RN Attending Clinician Unavailable CRISTOFER SMILEY Attending Clinician Unavailable Vanessa Bryant MA Attending Clinician Unavailable Nabeel Ventura MD Attending Clinician Sharron Abdul MD, I. Attending Clinician Emy Watt MA Attending Clinician Unavailable Isis Ortiz Attending Clinician Unavailable MARZENA Attending Clinician Unavailable SAMIRA SUNG Attending Clinician Unavailable AKASH LI Attending Clinician Unavailable MD BRITTNI LINK Attending Clinician Unavailable BRITTNI LINK Attending Clinician Unavailable MD CRISTOFER SMILEY Attending Clinician Unavailable CATRACHO THORNTON Attending Clinician Unavailable Catracho Thornton MD Attending Clinician Po, [facility] Main Attending Clinician Unavailable Dez Abrams MD Attending Clinician 1, [facility] Infusion Chair Attending Clinician Unavailable 1, [facility] Infusion Nurse Attending Clinician Unavailable Doctor Unassigned, [place] Attending Clinician Unavailable 2, [facility] Attending Clinician Unavailable MAVIS HERNANDEZ Attending Clinician Unavailable Tony RADAR REPAIRER, Mavis Pruitt Attending Clinician Khris RN, Katlin Attending Clinician Unavailable Devin MARINA, Jade Gutierrez Attending Clinician Hudson Tello Attending Clinician Fausto [...] Date S germaine Blue Cross Blue C1 [id number] 2003 [facility] [employer] [facility] [place] 00:00:00 - [facility] MEDICARE MB [id number] 2015 [facility] NOVITAS 00:00:00 - [facility] MEDICARE MB [id number] 2015 [facility] NOVITAS 00:00:00 - [facility] Blue Cross Blue C1 [id number] 2003 [facility] [employer] [place] 00:00:00 - [facility] MEDICARE MB [id number] 2015 [facility] NOVITAS 00:00:00 - [facility] Blue Cross Blue C1 [id number] 2003 [facility] [place] 00:00:00 - [facility] Blue Cross Blue C1 [id number] 2003 [facility] [place] 00:00:00 - [facility] MEDICARE MB [id number] 2015 [facility] NOVITAS 00:00:00 - [facility] MEDICARE MB [id number] 2015 [facility] NOVITAS 00:00:00 - [facility] Blue Cross Blue C1 [id number] 2003 [facility] [place] 00:00:00 - [facility] MEDICARE PART A [id number] 2015 \\T\\ B 00:00:00 BCBS FED SELECT [id number] 2003 00:00:00 Problems Condition Condition Condition Status Onset Resolution Last Treating Co mments Source Name Details Category Date Date Treatment Clinician Date Age-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 00:00: Hospit a mellitus mellitus 00 l with stage with stage 3 chronic 3 chronic kidney kidney disease, disease, with with long-term long-term current current use of use of insulin insulin Chronic Chronic Disease Active Methodi kidney kidney 08-12 disease disease 00:00: Hospita (CKD) (CKD) 00 l Hypertensi Hypertensi Disease Active M ethodi on on 08-12 00:00: Hospita 00 l COPD COPD Disease Active Methodi (chronic (chronic 08-12 obstructiv obstructiv 00:00: Ho spita e e 00 l pulmonary pulmonary disease) disease) Liver Liver Disease Active Methodi cirrhosis cirrhosis 9-27 st secondary secondary 00:00: Hosp tracey to LEE to LEE 00 l Hepatic Hepatic Disease Active Methodi encephalop encephalop 08-12 st athy athy 00:00: Hospita 00 l Hypertensi Hypertensi Disease Active U nivers ve ve 4-07 [place] Transient Transient Disease Active Uni vers confusion confusion 4-06 ity of 00:00: [place] 00 Medical Branch COPD COPD Disease Recurre 2018-[address] ([facility] (ch[facility] obstruct[facility] obstructiv 00:[facility]: Me dical e e 00 [place] pulmonary pulmonary disease) disease) Cirrhosis Cirrhosis Disease Recurre 2018-[address] [facility] liver of liver nce 0-30 [facility] with with 00:00: Medical ascites ascites 00 [place] Shoulder Shoulder Disease Active Unive rs bursitis bursitis 04-24 ity of 00:00: [place] [address] Medical Branch Encounter Encounter Disease Active Overview: Univers for for 04-24 [place] ity of screening screening 00:00: g of this [place] for for 00 note Medical osteoporos osteoporos might be Branch is is different from the original. ICD10 Diagnosis Term Parts Identifier Utility Psoriatic Psoriatic Disease Active 2009-11 Uni vers arthropath arthropath 2-16 it y of y y 00:00: [place] [facility] Psoriasis Psoriasis Disease Active 2009-11 Uni vers 2-16 ity of 00:00: [place] [address] Medical Branch Thrombosis Thrombosis Disease Active 2009-11 U nivers of of 2-16 ity of arteries arteries 00:00: [place] of lower of lower 00 Medica l extremity extremity Bran ch Dysuria Dysuria Disease Active 2009-11 Univers 2-16 ity of 00:00: [place] [address] Medical Branch Diabetes Diabetes Disease Active 2009-11 Overview: Un aileen mellitus mellitus 2-16 Formattin ity of type 2, type 2, 00:00: g of this [place] uncontroll uncontroll 00 note Mt dical ed, ed, might be Branch without without different complicati complicati from the ons ons original. ICD10 Diagnosis Term Parts Identifier Utility Essential Essential Disease Active 2009-11 Uni vers hypertensi hypertensi 2-16 it y of on, benign [place] benign [place] Chronic Stage 3b Problem Common kidney chronic Spirit disease kidney - CHI stage 3B disease St (disorder) [facility] [id number] GERD Problem Common without Spirit esophagiti - CHI s [facility] Ascites Other Problem Common ascites [facility] [id number] LEE Problem Common (nonalcoho Spirit lic - CHI steatohepa [facility] [id number] Essential Problem Comm on (primary) Spirit hypertensi - CHI on [facility] [id number] Mixed Problem Common hyperlipid Spirit emia - CHI [facility] [id number] Gastric Problem Common polyp [facility] [id number] Portal Problem Common hypertensi Spirit on - CHI [facility] [id number] Solitary Problem Comm on lung Spirit nodule [facility] [id number] Psoriatic Problem Com mon arthritis [facility] [id number] Chest Problem Common congestion [facility] [id number] Other Problem Common obesity Spirit due to - CHI excess [facility] [id number] Cerebral Problem Commo n atheroscle Spirit rosis [facility] [id number] Non-season Problem Com mon al Spirit allergic - CHI rhinitis, [facility] [id number] Thrombocyt Problem Co mmon openia [facility] Oesophagea Secondary Problem Co mmon l varices esophageal Spi rit without varices - CHI bleeding without bleeding [facility] [id number] Nasal Problem Common congestion [facility] [id number] Cough Problem Common [facility] [id number] Upper Problem Common respirator Spirit y tract - CHI infection, [facility] [id number] Body mass Problem Com mon index Spirit [BMI] - CHI 34.0-34.9, [facility] Allergies, Adverse Reactions, Alerts Allergy Allergy Status Severity Reaction(s) Onset Inactive Treating Comm ents Source Name Type Date Date Clinician No Known DA Active [facility]ie 02-[facility] 00:: [address] No Known DA Active U [facility] Allergie 02-15 00:00: [address] NO KNOWN Drug Active Univers ALLERGIE Class ity of S [facility] Family History Family Member Diagnosis Comments Start Date Stop Date Source Natural brother [facility] Maternal grandmother Diabetes Meth [facility] Natural mother Diabetes [facility] [place] Natural sister Diabetes [facility] [place] Social History Social Habit Start Date Stop Date Quantity Comments Source History of Tobacco [facility] - Use [facility] Exposure to Not sure University of SARS-CoV-2 (event) [facility] Gender identity [facility] [place] Sexual orientation [facility] History SDOH [facility] Alcohol Std Drinks Medica l Center History SDOH [facility] Alcohol Binge Medical Sharla [facility] History of Social 2022-12-11 2022-12-[address] function 00:00:00 00:00:00 Hospital Tobacco use and 2021-08-12 2021-08-12 Smokeless [facility] exposure 00:00:00 00:00:00 tobacco non-user Hospital Alcohol intake 2019-09-17 2019-09-[address] [facility] [address] [facility]ara es 00:00:00 00:00:00 non-drinker of Medical Ce nter alcohol (finding) History SDOH 2019-09-14 2019-09-14 1 [facility] Alcohol Frequency 00:00:00 00:00:00 [facility] Sex Assigned At [birth year] [facility] pamelas 00:00:00 00:00:00 [facility] Smoking Status Start Date Stop Date Source Never Smoker [facility] Medications Ordered Filled Start Stop Current Ordering Indication Dosage Frequency Signature Comments Components Source Medication Medication Date Date Medication? Clinician (SIG) Name Name Augmentin Augmentin 2021- No 1{table Augmentin 500-125 MG 500-125 MG 05-21 t} 500-125 MG 00:00: 00:00 00 :00 Augmentin Augmentin 2021-0 202- No 1{table Augmentin 500-125 MG 500-125 MG 05-21 t} 500-125 MG 00:00: 00:00 00 :00 metoprolol 2021-0 Yes 100mg Q.5D Take 100 Me thodi tartrate 3-[address] (LOPRESSOR) 09:22: mouth 2 Hos john 100 mg 19 (two) l tablet times a day. lactulose 2021-0 Yes [id number] Take by Methodi 10 gram/15 3-[id number] mL (15 mL) 09:22: 3D (three) Hosp tracey solution 19 times a l day. riFAXimin 2021-0 Yes 550mg Q.5D Take 550 Met hodi (XIFAXAN) 3-[address] 550 mg 09:22: mouth 2 Hospita tablet 19 (two) l times a day. FUROSEMIDE 2021-0 Yes 40mg Q.5D Take 40 mg M ethodi ORAL 3-[address] 09:22: (two) Hospita 19 times a l day. eplerenone 2021-0 Yes 25mg QD Take 25 mg M ethodi (INSPRA) 25 3-[address] MG tablet 09:22: daily. Hospit a 19 l omeprazole 0 Yes 40mg QD Take 40 mg M ethodi (PriLOSEC) 3-[address] 40 MG 09:22: daily. Hospita capsule 19 l atorvastati 0 Yes 10mg QD Take 10 mg Methodi n (LIPITOR) 3-[address] 10 mg 09:22: daily. Hospita tablet 19 l FERROUS 2021-0 Yes 65mg Q.5D Take 65 mg Meth kiran SULFATE 3-[address] ORAL 09:22: (two) Hospita 19 times a l day. aspirin 0 Yes 81mg QD Take 81 mg Meth kiran (ECOTRIN) 3-[address] 81 MG 09:22: daily. Hospita enteric 19 l coated tablet levocetiriz 0 Yes 5mg QD Take 5 mg M ethodi ine 3-[address] dihydrochlo 09:22: daily. Hosp tracey ride (XYZAL 19 l ORAL) albuterol 0 Yes 2{puff} Q6H Inhale 2 M ethodi (PROAIR 3-[address] HFA) 90 09:22: every 6 Hospita mcg/actuati 19 (six) l on inhaler hours as needed for wheezing. amLODIPine 0 Yes 5mg QD Take 5 mg Me thodi (NORVASC) 5 3-[address] mg tablet 09:22: daily. Hospit a 19 l Levalbutero Levalbutero 2020-11 No Levalbuter l HCl [...] 00:00: 1.25 00 MG/3ML albumin 2020- No [id number] 50g Univ ers (ALBUMINAR 05-27 ity of 25%) 25 % 14:30: 02:29 [place] injection 00 :00 Medical 50 g Branch albumin 2020- No [id number] 50g Univ ers (ALBUMINAR 05-27 ity of 25%) 25 % 14:30: 14:50 [place] injection 00 :00 Medical 50 g Branch albumin 2020- No [id number] 50g 50 g, IV Univers (ALBUMINAR 05-27 Infusion, ity of 25%) 25 % 14:30: 14:50 ONCE, 1 [place] injection [place] :[place] dose, Mon Medic al 50 g 05/27/21 at Branch 0930, 200 mL
Gabrielle cation: LARGE VOLUME PARACENTES IS IN CIRRHOSIS (>5L) albumin 2020- No [id number] 37.5g Uni vers (ALBUMINAR 05-02 ity of 25%) 25 % 15:11: 15:22 [place] injection 00 :00 Medical 37.5 g Branch albumin 2020- No [id number] 37.5g 37.5 g, IV Univers (ALBUMINAR 05-02 Infusion, ity of 25%) 25 % 15:11: 15:22 [place]CE, 1 [place] injection [place] :[place] dose, Kiersten Medic al 37.5 g 05/02/21 at Branch 1015, 150 mL
Gabrielle cation: LARGE VOLUME PARACENTES IS IN CIRRHOSIS (>5L) albumin 2020- No [id number] 50g Univ ers (ALBUMINAR 03-28 ity of 25%) 25 % 15:51: 16:03 [place] injection 00 :00 Medical 50 g Branch albumin 2020- No [id number] 50g 50 g, IV Univers (ALBUMINAR 03-28 Infusion, ity of 25%) 25 % 15:51: 16:03 ONCE, 1 [place] injection [place] :[place] dose, Kiersten Medic al 50 g 03/28/21 at Branch 1100, 200 mL
Gabrielle cation: LARGE VOLUME PARACENTES IS IN CIRRHOSIS (>5L)
C omments: Ascites removal albumin 2020- No [id number] 12.5g Univ ers (ALBUMINAR 01-29 ity of 25%) 25 % 17:15: 17:24 [place] injection 00 :00 Medical 12.5 g Branch albumin 2020- No [id number] 12.5g 12.5 g, IV Univers (ALBUMINAR 01-29 [...] 50g 50 g, IV Unive rs (ALBUMINAR 01-03 Infusion, ity of 25%) 25 % 19:30: 19:36 ONCE, 1 [place] injection 00 :[place] dose, Kiersten Medic al 50 g 01/03/21 at Branch 1330, 200 mL
Gabrielle cation: LARGE VOLUME PARACENTES IS IN CIRRHOSIS (>5L) albumin Yes IV Univers (ALBUMINAR 1-04 Infusion, ity of 25%) 25 % 19:31: PRN, [place] injection 03 Starting Medica l [facility] 11/19/20 Branch at 1331, Until Discontinu ed albumin 2019-11- No IV Univers (ALBUMINAR 12-23 Infusion, ity of 25%) 25 % 19:56: 20:19 PRN, [place] injection 00 :00 Starting Medica l [facility] 10/22/20 at 1356, Until Discontinu ed lidocaine 2019-11- No PRN, Univers 1% (PF) 12-23 Starting ity of (XYLOCAINE) 19:54: 19:54 Mon [place] injection 00 :00 10/22/20 at [facility] 1354, Branch Until Discontinu ed, Routine hydralAZINE 2019- 2020- No 10mg 10 mg, Uni vers (APRESOLINE 02-24 Intravenou i ty of ) injection 13:00: 12:40 s, ONCE, 1 [place] 10 mg 00 :00 dose, [facility] Medical 02/25/20 at Branch 0800, Routine metFORMIN 2020-0 Yes [id number] 500mg Take 1 Univers 500 mg 4-11 tablet by ity of tablet 00:00: mouth (two) Medical times [place] daily with meals. metFORMIN 2020-0 Yes [id number] 500mg Take 1 Univers 500 mg 4-11 tablet by ity of tablet 00:00: mouth (two) [facility] times [place] daily with meals. metFORMIN 2020-0 Yes [id number] 500mg Take 1 Univers 500 mg 4-11 tablet by ity of tablet 00:00: mouth (two) [facility] times [place] daily with meals. metFORMIN 2020-0 Yes [id number] 500mg Take 1 Univers 500 mg 4-11 tablet by ity of tablet 00:00: mouth [place] (two) Medical times [place] daily with meals. metFORMIN 2020-0 Yes [id number] 500mg Take 1 Univers 500 mg 4-11 tablet by ity of tablet 00:00: mouth (two) Medical times Branch daily with meals. metFORMIN 2020-0 Yes [id number] 500mg Take 1 Univers 500 mg 4-11 tablet by ity of tablet 00:00: mouth (two) Medical times Branch daily with meals. metFORMIN 2020-0 Yes [id number] 500mg Take 1 Univers 500 mg 4-11 tablet by ity of tablet 00:00: mouth (two) Medical times Branch daily with meals. metFORMIN 2020-0 Yes [id number] 500mg Take 1 Univers 500 mg 4-11 tablet by ity of tablet 00:00: mouth (two) Medical times Branch daily with meals. metFORMIN 2020-0 Yes [id number] 500mg Take 1 Univers 500 mg 4-11 tablet by ity of tablet 00:00: mouth (two) Medical times Branch daily with meals. metFORMIN 2020-0 Yes [id number] 500mg Take 1 Univers 500 mg 4-11 tablet by ity of tablet 00:00: mouth (two) Medical times Branch daily with meals. metFORMIN 2020-0 Yes [id number] 500mg Take 1 Univers 500 mg 4-11 tablet by ity of tablet 00:00: mouth (two) Medical times Branch daily with meals. metFORMIN 2020-0 Yes [id number] 500mg Take 1 Univers 500 mg 4-11 tablet by ity of tablet 00:00: mouth (two) Medical times Branch daily with meals. metFORMIN 2020-0 Yes [id number] 500mg Take 1 Univers 500 mg 4-11 tablet by ity of tablet 00:00: mouth (two) Medical times Branch daily with meals. metFORMIN 2020-0 Yes [id number] 500mg Take 1 Univers 500 mg 4-11 tablet by ity of tablet 00:00: mouth (two) Medical times Branch daily with meals. metFORMIN 2020-0 Yes [id number] 500mg Take 1 Univers 500 mg 4-11 tablet by ity of tablet 00:00: mouth (two) Medical times Branch daily with meals. metFORMIN 2020-0 Yes [id number] 500mg Take 1 Univers 500 mg 4-11 tablet by ity of tablet 00:00: mouth 2 [place] 00 (two) Medical times Branch daily with meals. metFORMIN 2020-0 Yes [id number] 500mg Take 1 Univers 500 mg 4-11 tablet by ity of tablet 00:00: mouth (two) Medical times Branch daily with meals. metFORMIN 2020-0 Yes [id number] 500mg Take 1 Univers 500 mg 4-11 tablet by ity of tablet 00:00: mouth (two) Medical times Branch daily with meals. metFORMIN 2020-0 Yes [id number] 500mg Take 1 Univers 500 mg 4-11 tablet by ity of tablet 00:00: mouth (two) Medical times Branch daily with meals. metFORMIN 2020-0 Yes [id number] 500mg Take 1 Univers 500 mg 4-11 tablet by ity of tablet 00:00: mouth (two) Medical times Branch daily with meals. metFORMIN 2020-0 Yes [id number] 500mg Take 1 Univers 500 mg 4-11 tablet by ity of tablet 00:00: mouth (two) Medical times Branch daily with meals. metFORMIN 2020-0 Yes [id number] 500mg Take 1 Univers 500 mg 4-11 tablet by ity of tablet 00:00: mouth (two) Medical times Branch daily with meals. metFORMIN 2020-0 Yes [id number] 500mg Take 1 Univers 500 mg 4-11 tablet by ity of tablet 00:00: mouth (two) Medical times Branch daily with meals. metFORMIN 2020-0 Yes [id number] 500mg Take 1 Univers 500 mg 4-11 tablet by ity of tablet 00:00: mouth (two) Medical times Branch daily with meals. metFORMIN 2020-0 Yes [id number] 500mg Take 1 Univers 500 mg 4-11 tablet by ity of tablet 00:00: mouth (two) Medical times Branch daily with meals. metFORMIN 2020-0 Yes [id number] 500mg Take 1 Univers 500 mg 4-11 tablet by ity of tablet 00:00: mouth (two) Medical times Branch daily with meals. metFORMIN 2020-0 Yes [id number] 500mg Take 1 Univers 500 mg 4-11 tablet by ity of tablet 00:00: mouth (two) Medical times Branch daily with meals. cephALEXin 2020-0 2020- No [id number] 500mg Take 1 Univers 500 mg 4-11 -19 capsule by ity of capsule 00:00: 04:59 mouth 2 [place] 00 :00 (two) Medical times Branch daily for 7 days. amLODIPine 2020-0 2020- No [id number] 10mg Take 1 Univers 10 mg 02-22- 9104 tablet by ity of tablet 00:00: 04:59 mouth [place] 00 :00 daily for Medical 30 days. Branch amLODIPine 2020-0 2020- No [id number] 10mg Take 1 Univers 10 mg 02-22- 9104 tablet by ity of tablet 00:00: 04:59 mouth [place] 00 :00 daily for Medical 30 days. Branch amLODIPine 2020-0 2020- No [id number] 10mg Take 1 Univers 10 mg 02-22- 9104 tablet by ity of tablet 00:00: 04:59 mouth [place] 00 :00 daily for Medical 30 days. Branch amLODIPine 2020-0 2020- No [id number] 10mg Take 1 Univers 10 mg 02-22 9104 tablet by ity of tablet 00:00: 04:59 mouth [place] 00 :00 daily for Medical 30 days. Branch montelukast 2020-0 Yes 10mg Take 10 mg Univers 10 mg 4-08 by mouth ity of tablet 16:30: daily. [place] [address] Medical Branch cetirizine 2020-0 Yes 10mg Take 10 mg U nivers (ZYRTEC) 10 4-08 by mouth ity of mg tablet 16:30: daily. [place] [address] Medical Branch albuterol-i 2020-0 Yes 1{puff} Inhale 1 Univers pratropium 4-08 Puff as ity of 20-100 16:30: [facility] Wheezing Medi janett on inhaler or Branch Shortness of Breath. spironolact 2020-0 Yes 25mg Take 25 mg Univers one 25 mg 4-08 by mouth 2 ity of tablet 16:30: (two) [place] [address] times Medical daily. Branch gabapentin 2020-0 Yes 100mg Take 100 Un aileen 100 mg 4-08 mg by ity of capsule 16:30: mouth at [place] [address] bedtime. Medical Branch ferrous 2020-0 Yes 325mg Take 325 Unive rs sulfate 325 4-08 mg by ity of mg (65 mg 16:30: mouth 3 [place] iron) (three) Medical tablet times Branch daily [...] ity of 0.005 % 16:30: both eyes [place] ophthalmic 32 every Medical drops evening. Branch secukinumab 2019-0 Yes 150mg inject 150 Univers (COSENTYX) 4-08 mg under ity o f 150 mg/mL 16:30: the skin [place] syringe 32 weekly. Medica l Branch omeprazole 2019-0 Yes 40mg Take 40 mg U nivers 40 mg 4-08 by mouth ity of capsule 16:30: daily. [address] DULoxetine 2019-0 Yes 30mg Take 30 mg U nivers 30 mg 4-08 by mouth ity of capsule 16:30: daily. [address] Branch hydroCHLORO 2020-0 Yes 12.5mg Take 12.5 Univers thiazide 4-08 mg by ity of 12.5 mg 16:30: mouth [place] capsule 32 daily. Medical Branch montelukast 2020-0 Yes 10mg Take 10 mg Univers 10 mg 4-08 by mouth ity of tablet 16:30: daily. [address] Branch cetirizine 2019-0 Yes 10mg Take 10 mg U nivers (ZYRTEC) 10 4-08 by mouth ity of mg tablet 16:30: daily. [address] Branch albuterol-i 2019-0 Yes 1{puff} Inhale [...] by ity of capsule 16:30: mouth at [place] [address] bedtime. Medical Branch ferrous 2020-0 Yes 325mg Take 325 Unive rs sulfate 325 4-08 mg by ity of mg (65 mg 16:30: mouth 3 [place] iron) 32 (three) Medical tablet times [place] daily with meals. metoprolol 2020-0 Yes 100mg Take 100 Un aileen tartrate 4-08 mg by ity of (LOPRESSOR) 16:30: mouth 2 Dimit[place] as 50 mg 32 (two) Medical tablet times [place] daily. fexofenadin 2020-0 Yes 180mg Take 180 [...] by mouth ity of capsule 16:30: daily. [place] [address] Medical Branch DULoxetine 2020-0 Yes 30mg Take 30 mg U nivers 30 mg 4-08 by mouth ity of capsule 16:30: daily. [place] [address] Medical Branch hydroCHLORO 2020-0 Yes 12.5mg Take 12.5 Univers thiazide 4-08 mg by ity of 12.5 mg 16:30: mouth [place] capsule 32 daily. Medical Branch montelukast 2020-0 Yes 10mg Take 10 mg Univers 10 mg 4-08 by mouth ity of tablet 16:30: daily. [place] [address] Medical Branch cetirizine 2020-0 Yes 10mg Take 10 mg U nivers (ZYRTEC) 10 4-08 by mouth ity of mg tablet 16:30: daily. [place] [address] Medical Branch albuterol-i 2020-0 Yes 1{puff} Inhale 1 Univers pratropium 4-08 Puff as ity of 20-100 16:30: needed for [place] mcg/actuati 32 Wheezing Medi janett on inhaler or Branch Shortness of Breath. spironolact 2020-0 Yes 25mg Take 25 mg Univers one 25 mg 4-08 by mouth 2 ity of tablet 16:30: (two) [place] [address] times Medical daily. Branch gabapentin 2020-0 Yes 100mg Take 100 Un aileen 100 mg 4-08 mg by ity of capsule 16:30: mouth at [place] [address] bedtime. Medical Branch ferrous 2020-0 Yes 325mg Take 325 Unive rs sulfate 325 4-08 mg by ity of mg (65 mg 16:30: mouth 3 [place] iron) 32 (three) Medical tablet times [place] daily with meals. metoprolol 2020-0 Yes 100mg Take 100 Un aileen tartrate 4-08 mg by ity of (LOPRESSOR) 16:30: mouth 2 [place] as 50 mg 32 (two) Medical tablet times [place] daily. fexofenadin 2020-0 Yes 180mg Take 180 U nivers e (ERIKA) 4-08 mg by ity of 180 mg 16:30: mouth [place] tablet 32 daily. Medical Branch fluticasone 2020-0 Yes 2{spray Use 2 Un aileen (FLONASE) 4-08 } Sprays in ity o f 50 16:30: each [place] mcg/Actuati 32 nostril Medic al on nasal daily. Branch spray latanoprost 2020-0 Yes 1[drp] Place 1 U nivers (XALATAN) 4-08 Drop in ity of 0.005 % 16:30: both eyes [place] ophthalmic 32 every Medical drops evening. Branch secukinumab 2020-0 Yes 150mg inject 150 Univers (COSENTYX) 4-08 mg under ity o f 150 mg/mL 16:30: the skin [place] syringe 32 weekly. Medica l Branch omeprazole 2020-0 Yes 40mg Take 40 mg U nivers 40 mg 4-08 by mouth ity of capsule 16:30: daily. [place] [address] Medical Branch DULoxetine 2020-0 Yes 30mg Take 30 mg U nivers 30 mg 4-08 by mouth ity of capsule 16:30: daily. [address] Branch hydroCHLORO 2020-0 Yes 12.5mg Take 12.5 [facility] thiazide 4-08 mg by ity of 12.5 mg 16:30: mouth [place] capsule 32 daily. Medical Branch montelukast 2020-0 Yes 10mg Take 10 mg [facility] 10 mg 4-08 by mouth ity of tablet 16:30: daily. [address] Branch cetirizine 2020-0 Yes 10mg Take 10 mg U nivers (ZYRTEC) 10 4-08 by mouth ity of mg tablet 16:30: daily. [address] Branch albuterol-i 2020-0 Yes 1{puff} Inhale 1 [facility] pratropium 4-08 Puff as ity of 20-100 16:30: needed for [place] mcg/actuati 32 Wheezing Medi janett on inhaler or Branch Shortness of Breath. spironolact 2020-0 Yes 25mg Take 25 mg [facility] one 25 mg 4-08 by mouth 2 ity of tablet 16:30: (two) [place] 32 times Medical daily. Branch gabapentin 2020-0 Yes 100mg Take 100 Un [place] 100 mg 4-08 mg by ity of capsule 16:30: mouth at [place] [address] bedtime. Medical Branch ferrous 2020-0 Yes 325mg [...] in ity o f 50 16:30: each [place] mcg/Actuati 32 nostril Medic al on nasal daily. Branch spray latanoprost 2020-0 Yes 1[drp] Place 1 U nivers (XALATAN) 4-08 Drop in ity of 0.005 % 16:30: both eyes [place] ophthalmic every Medical drops evening. Branch secukinumab 2020-0 Yes 150mg inject 150 [facility] (COSENTYX) 4-08 mg under ity o f 150 mg/mL 16:30: [place] skin [place] syringe 32 weekly. Medica l Branch omeprazole 2020-0 Yes 40mg Take 40 mg U nivers 40 mg 4-08 by mouth ity of capsule 16:30: daily. [place] [address] Medical Branch DULoxetine 2020-0 Yes 30mg Take 30 mg U nivers 30 mg 4-08 by mouth ity of capsule 16:30: daily. [place] [address] Medical Branch hydroCHLORO 2020-0 Yes 12.5mg Take 12.5 [facility] thiazide 4-08 mg by ity of 12.5 mg 16:30: mouth [place] capsule 32 daily. Medical Branch montelukast 2020-0 Yes 10mg Take 10 mg [facility] 10 mg 4-08 by mouth ity of tablet 16:30: daily. [place] [address] Medical Branch cetirizine 2020-0 Yes 10mg Take 10 mg U nivers (ZYRTEC) 10 4-08 by mouth ity of mg tablet 16:30: daily. [place] [address] Medical Branch albuterol-i 2020-0 Yes 1{puff} Inhale 1 [facility] pratropium 4-08 Puff as ity of 20-100 16:30: [facility] Wheezing Medi janett on inhaler or Branch Shortness of Breath. spironolact 2020-0 Yes 25mg Take 25 mg [facility] one 25 mg 4-08 by mouth 2 ity of tablet 16:30: (two) [place] 32 times Medical daily. Branch gabapentin 2020-0 Yes 100mg Take 100 Un [place] 100 mg 4-08 mg by ity of capsule 16:30: mouth at [place] [address] bedtime. Medical Branch ferrous 2020-0 Yes 325mg [...] ity of 0.005 % 16:30: both eyes [place] ophthalmic 32 every Medical drops evening. Branch secukinumab 2019-0 Yes 150mg inject 150 [facility] (COSENTYX) 4-08 mg under ity o f 150 mg/mL 16:30: [place] syringe 32 weekly. Medica l Branch omeprazole 2019-0 Yes 40mg Take 40 mg U n[facility] 40 mg 4-08 by mouth ity of capsule 16:30: daily. [address] Branch DULoxetine 2020-0 Yes 30mg Take 30 mg U nivers 30 mg 4-08 by mouth ity of capsule 16:30: daily. [address] Branch hydroCHLORO 2020-0 Yes 12.5mg Take 12.5 [facility] thiazide 4-08 mg by ity of 12.5 mg 16:30: mouth [place] capsule 32 daily. Medical Branch montelukast 2020-0 Yes 10mg Take 10 mg [facility] 10 mg 4-08 by mouth ity of tablet 16:30: daily. [address] Branch cetirizine 2020-0 Yes 10mg Take 10 mg U nivers (ZYRTEC) 10 4-08 by mouth ity of mg tablet 16:30: daily. [address] Branch albuterol-i 2019-0 Yes 1{puff} Inhale [...] by ity of capsule 16:30: mouth at [place] [address] bedtime. Medical Branch ferrous 2020-0 Yes 325mg Take 325 Unive rs sulfate 325 4-08 mg by ity of mg (65 mg 16:30: mouth 3 [place] iron) 32 (three) Medical tablet times [place] daily with meals. metoprolol 2020-0 Yes 100mg Take 100 Un [place] tartrate 4-08 mg by ity of (LOPRESSOR) 16:30: mouth 2 [place] 50 mg 32 (two) Medical tablet times [place] daily. fexofenadin 2020-0 Yes 180mg Take 180 [...] ity of 0.005 % 16:30: both eyes [place] ophthalmic 32 every Medical drops evening. Branch secukinumab 2019-0 Yes 150mg inject 150 [facility] (COSENTYX) 4-08 mg under ity o f 150 mg/mL 16:30: [place] syringe 32 weekly. Medica l Branch omeprazole 2020-0 Yes 40mg Take 40 mg U nivers 40 mg 4-08 by mouth ity of capsule 16:30: daily. [place] [address] Medical Branch DULoxetine 2020-0 Yes 30mg Take 30 mg U nivers 30 mg 4-08 by mouth ity of capsule 16:30: daily. [place] [address] Medical Branch hydroCHLORO 2020-0 Yes 12.5mg Take 12.5 [facility] thiazide 4-08 mg by ity of 12.5 mg 16:30: mouth [place] capsule 32 daily. Medical Branch montelukast 2020-0 Yes 10mg Take 10 mg [facility] 10 mg 4-08 by mouth ity of tablet 16:30: daily. [place] [address] Medical Branch cetirizine 2020-0 Yes 10mg Take 10 mg U nivers (ZYRTEC) 10 4-08 by mouth ity of mg tablet 16:30: daily. [place] [address] Medical Branch albuterol-i 2020-0 Yes 1{puff} Inhale 1 [facility] pratropium 4-08 Puff as ity of 20-100 16:30: needed for [place] mcg/actuati 32 Wheezing Medi janett on inhaler or Branch Shortness of Breath. spironolact 2020-0 Yes 25mg Take 25 mg [facility] one 25 mg 4-08 by mouth 2 ity of tablet 16:30: (two) [place] 32 times Medical daily. Branch gabapentin 2020-0 Yes 100mg Take 100 Un [place] 100 mg 4-08 mg by ity of capsule 16:30: mouth at [place] [address] bedtime. Medical Branch ferrous 2020-0 Yes 325mg [...] in ity o f 50 16:30: each [place] mcg/Actuati 32 nostril Medic al on nasal daily. Branch spray latanoprost 2020-0 Yes 1[drp] Place 1 U nivers (XALATAN) 4-08 Drop in ity of 0.005 % 16:30: both eyes [place] ophthalmic 32 every Medical drops evening. Branch secukinumab 2020-0 Yes 150mg inject 150 [facility] (COSENTYX) 4-08 mg under ity o f 150 mg/mL 16:30: [place] syringe 32 weekly. Medica l Branch omeprazole 2020-0 Yes 40mg Take 40 mg U nivers 40 mg 4-08 by mouth ity of capsule 16:30: daily. [place] [address] Medical Branch DULoxetine 2020-0 Yes 30mg Take 30 mg U nivers 30 mg 4-08 by mouth ity of capsule 16:30: daily. [place] [address] Medical Branch hydroCHLORO 2020-0 Yes 12.5mg Take 12.5 [facility] thiazide 4-08 mg by ity of 12.5 mg 16:30: mouth [place] capsule 32 daily. Medical Branch montelukast 2020-0 Yes 10mg Take 10 mg [facility] 10 mg 4-08 by mouth ity of tablet 16:30: daily. [place] [address] Medical Branch cetirizine 2020-0 Yes 10mg Take 10 mg U nivers (ZYRTEC) 10 4-08 by mouth ity of mg tablet 16:30: daily. [place] [address] Medical Branch albuterol-i 2020-0 Yes 1{puff} Inhale 1 [facility] pratropium 4-08 Puff as ity of 20-100 16:30: needed for [place] mcg/actuati 32 Wheezing Medi janett on inhaler or Branch Shortness of Breath. spironolact 2020-0 Yes 25mg Take 25 mg [facility] one 25 mg 4-08 by mouth 2 ity of tablet 16:30: (two) [place] 32 times Medical daily. Branch gabapentin 2020-0 Yes 100mg Take 100 Un [place] 100 mg 4-08 mg by ity of capsule 16:30: mouth at [place] [address] bedtime. Medical Branch ferrous 2020-0 Yes 325mg [...] ity of 0.005 % 16:30: both eyes [place] ophthalmic every Medical drops evening. Branch secukinumab 2020-0 Yes 150mg inject 150 [facility] (COSENTYX) 4-08 mg under ity o f 150 mg/mL 16:30: [place] syringe 32 weekly. Medica l Branch omeprazole 2020-0 Yes 40mg Take 40 mg U nivers 40 mg 4-08 by mouth ity of capsule 16:30: daily. [place] [address] Medical Branch DULoxetine 2020-0 Yes 30mg Take 30 mg U nivers 30 mg 4-08 by mouth ity of capsule 16:30: daily. [place] [address] Medical Branch hydroCHLORO 2020-0 Yes 12.5mg Take 12.5 [facility] thiazide 4-08 mg by ity of 12.5 mg 16:30: mouth [place] capsule 32 daily. Medical Branch montelukast 2020-0 Yes 10mg Take 10 mg [facility] 10 mg 4-08 by mouth ity of tablet 16:30: daily. [place] [address] Medical Branch cetirizine 2020-0 Yes 10mg Take 10 mg U nivers (ZYRTEC) 10 4-08 by mouth ity of mg tablet 16:30: daily. [place] [address] Medical Branch albuterol-i 2020-0 Yes 1{puff} Inhale 1 [facility] pratropium 4-08 Puff as ity of 20-100 16:30: needed [facility] Wheezing Medi janett on inhaler or Branch Shortness of Breath. spironolact 2020-0 Yes 25mg Take 25 mg [facility] one 25 mg 4-08 by mouth 2 ity of tablet 16:30: (two) [place] [address] times Medical daily. Branch gabapentin 2020-0 Yes 100mg Take 100 Un [place] 100 mg 4-08 mg by ity of capsule 16:30: mouth at [place] [address] bedtime. Medical Branch ferrous 2020-0 Yes 325mg Take 325 Unive rs sulfate 325 4-08 mg by ity of mg (65 mg 16:30: mouth 3 [place] iron) 32 (three) Medical tablet times Branch [...] in ity o f 50 16:30: each [place] mcg/Actuati 32 nostril Medic al on nasal daily. Branch spray latanoprost 2020-0 Yes 1[drp] Place 1 U nivers (XALATAN) 4-08 Drop in ity of 0.005 % 16:30: both eyes [place] ophthalmic 32 every Medical drops evening. Branch secukinumab 2020-0 Yes 150mg inject 150 [facility] (COSENTYX) 4-08 mg under ity o f 150 mg/mL 16:30: [place] syringe 32 weekly. Medica l Branch omeprazole 2020-0 Yes 40mg Take 40 mg U nivers 40 mg 4-08 by mouth ity of capsule 16:30: daily. [place] [address] Medical Branch DULoxetine 2020-0 Yes 30mg Take 30 mg U nivers 30 mg 4-08 by mouth ity of capsule 16:30: daily. [place] [address] Medical Branch hydroCHLORO 2020-0 Yes 12.5mg Take 12.5 [facility] thiazide 4-08 mg by ity of 12.5 mg 16:30: mouth [place] capsule 32 daily. Medical Branch montelukast 2020-0 Yes 10mg Take 10 mg [facility] 10 mg 4-08 by mouth ity of tablet 16:30: daily. [place] [address] Medical Branch cetirizine 2020-0 Yes 10mg Take 10 mg U nivers (ZYRTEC) 10 4-08 by mouth ity of mg tablet 16:30: daily. [place] [address] Medical Branch albuterol-i 2020-0 Yes 1{puff} Inhale 1 [facility] pratropium 4-08 Puff as ity of 20-100 16:30: needed for [place] mcg/actuati 32 Wheezing Medi janett on inhaler or Branch Shortness of Breath. spironolact 2020-0 Yes 25mg Take 25 mg [facility] one 25 mg 4-08 by mouth 2 ity of tablet 16:30: (two) [place] [address] times Medical daily. Branch gabapentin 2020-0 Yes 100mg Take 100 Un a[place]en 100 mg 4-08 mg by ity of capsule 16:30: mouth at [place] [address] bedtime. Medical Branch ferrous 2020-0 Yes 325mg Take 325 Unive rs sulfate 325 4-08 mg by ity of mg (65 mg 16:30: mouth 3 [place] iron) 32 (three) Medical tablet times [place] daily with meals. metoprolol 2020-0 Yes 100mg Take 100 Un [place] tartrate 4-08 mg by ity of (LOPRESSOR) 16:30: mouth 2 [place] 50 mg 32 (two) Medical tablet times [place] daily. fexofenadin 2020-0 Yes 180mg Take 180 [...] ity of 0.005 % 16:30: both eyes [place] ophthalmic 32 every Medical drops evening. Branch secukinumab 2020-0 Yes 150mg inject 150 [facility] (COSENTYX) 4-08 mg under ity o f 150 mg/mL 16:30: [place] syringe 32 weekly. Medica l Branch omeprazole 2020-0 Yes 40mg Take 40 mg U nivers 40 mg 4-08 by mouth ity of capsule 16:30: daily. [address] DULoxetine 2020-0 Yes 30mg Take 30 mg U nivers 30 mg 4-08 by mouth ity of capsule 16:30: daily. [address] Branch hydroCHLORO 2020-0 Yes 12.5mg Take 12.5 [facility] thiazide 4-08 mg by ity of 12.5 mg 16:30: mouth [place] capsule 32 daily. Medical Branch montelukast 2020-0 Yes 10mg Take 10 mg [facility] 10 mg 4-08 by mouth ity of tablet 16:30: daily. [address] Branch cetirizine 2020-0 Yes 10mg Take 10 mg U nivers (ZYRTEC) 10 4-08 by mouth ity of mg tablet 16:30: daily. [address] Branch albuterol-i 2020-0 Yes 1{puff} Inhale 1 [facility] pratropium 4-08 Puff as ity of 20-100 16:30: needed for [place] mcg/actuati 32 Wheezing Medi janett on inhaler or Branch Shortness of Breath. spironolact 2020-0 Yes 25mg Take 25 mg [facility] one 25 mg 4-08 by mouth 2 ity of tablet 16:30: (two) [place] 32 times Medical daily. Branch gabapentin 2020-0 Yes 100mg Take 100 Un [place]en 100 mg 4-08 mg by ity of capsule 16:30: mouth at [place] [address] bedtime. Medical Branch ferrous 2020-0 Yes 325mg Take 325 Unive rs sulfate 325 4-08 mg by ity of mg (65 mg 16:30: mouth 3 [place] iron) 32 (three) Medical tablet times [place] daily with meals. metoprolol 2020-0 Yes 100mg Take 100 Un [place] tartrate 4-08 mg by ity of (LOPRESSOR) 16:30: mouth 2 [place] 50 mg 32 (two) Medical tablet times [place] daily. fexofenadin 2020-0 Yes 180mg Take 180 U nivers e (ERIKA) 4-08 mg by ity of 180 mg 16:30: mouth [place] tablet 32 daily. Medical Branch fluticasone 2020-0 Yes 2{spray Use 2 Un [place] (FLONASE) 4-08 } Sprays in ity o f 50 16:30: each [place] mcg/Actuati 32 nostril Medic al on nasal daily. Branch spray latanoprost 2020-0 Yes 1[drp] Place 1 U nivers (XALATAN) 4-08 Drop in ity of 0.005 % 16:30: both eyes [place] ophthalmic 32 every Medical drops evening. Branch secukinumab 2020-0 Yes 150mg inject 150 [facility] (COSENTYX) 4-08 mg under ity o f 150 mg/mL 16:30: [place] syringe 32 weekly. Medica l Branch omeprazole 2020-0 Yes 40mg Take 40 mg U nivers 40 mg 4-08 by mouth ity of capsule 16:30: daily. [place] [address] Medical Branch DULoxetine 2020-0 Yes 30mg Take 30 mg U nivers 30 mg 4-08 by mouth ity of capsule 16:30: daily. [place] [address] Medical Branch hydroCHLORO 2020-0 Yes 12.5mg Take 12.5 [facility] thiazide 4-08 mg by ity of 12.5 mg 16:30: mouth [place] capsule 32 daily. Medical Branch montelukast 2020-0 Yes 10mg Take 10 mg [facility] 10 mg 4-08 by mouth ity of tablet 16:30: daily. [place] [address] Medical Branch cetirizine 2020-0 Yes 10mg Take 10 mg U nivers (ZYRTEC) 10 4-08 by mouth ity of mg tablet 16:30: daily. [place] [address] Medical Branch albuterol-i 2020-0 Yes 1{puff} Inhale 1 [facility] pratropium 4-08 Puff as ity of 20-100 16:30: needed for [facility]/actuati 32 Wheezing Medi janett on inhaler or Branch Shortness of Breath. spironolact 2020-0 Yes 25mg Take 25 mg [facility] one 25 mg 4-08 by mouth 2 ity of tablet 16:30: (two) [place] 32 times Medical daily. Branch gabapentin 2020-0 Yes 100mg Take 100 Un [place] 100 mg 4-08 mg by ity of capsule 16:30: mouth at [place] [address] bedtime. Medical Branch ferrous 2020-0 Yes 325mg Take 325 Unive rs sulfate 325 4-08 mg by ity of mg (65 mg 16:30: mouth 3 [place] iron) 32 (three) Medical tablet times [place] daily with meals. metoprolol 2020-0 Yes 100mg [...] in ity o f 50 16:30: each [place] mcg/Actuati 32 nostril Medic al on nasal daily. Branch spray latanoprost 2020-0 Yes 1[drp] Place 1 U nivers (XALATAN) 4-08 Drop in ity of 0.005 % 16:30: both eyes [place] ophthalmic 32 every Medical drops evening. Branch secukinumab 2020-0 Yes 150mg inject 150 [facility] (COSENTYX) 4-08 mg under ity o f 150 mg/mL 16:30: [place] skin [place] syringe 32 weekly. Medica l Branch omeprazole 2020-0 Yes 40mg Take 40 mg U nivers 40 mg 4-08 by mouth ity of capsule 16:30: daily. [place] [address] Medical Branch DULoxetine 2020-0 Yes 30mg Take 30 mg U nivers 30 mg 4-08 by mouth ity of capsule 16:30: daily. [place] [address] Medical Branch hydroCHLORO 2020-0 Yes 12.5mg Take 12.5 [facility] thiazide 4-08 mg by ity of 12.5 mg 16:30: mouth [place] capsule 32 daily. Medical Branch montelukast 2020-0 Yes 10mg Take 10 mg [facility] 10 mg 4-08 by mouth ity of tablet 16:30: daily. [place] [address] Medical Branch cetirizine 2020-0 Yes 10mg Take 10 mg U nivers (ZYRTEC) 10 4-08 by mouth ity of mg tablet 16:30: daily. [place] [address] Medical Branch albuterol-i 2020-0 Yes 1{puff} Inhale 1 [facility] pratropium 4-08 Puff as ity of 20-100 16:30: needed for [facility]/actuati 32 Wheezing Medi janett on inhaler or Branch Shortness of Breath. spironolact 2020-0 Yes 25mg Take 25 mg [facility] one 25 mg 4-08 by mouth 2 ity of tablet 16:30: (two) [place] 32 times Medical daily. Branch gabapentin 2020-0 Yes 100mg Take 100 Un [place]en 100 mg 4-08 mg by ity of capsule 16:30: mouth at [place] [address] bedtime. Medical Branch ferrous 2020-0 Yes 325mg Take 325 Unive rs sulfate 325 4-08 mg by ity of mg (65 mg 16:30: mouth 3 [place] iron) 32 (three) Medical tablet times [place] daily with meals. metoprolol 2020-0 Yes 100mg [...] in ity o f 50 16:30: each [place] mcg/Actuati 32 nostril Medic al on nasal daily. Branch spray latanoprost 2020-0 Yes 1[drp] Place 1 U nivers (XALATAN) 4-08 Drop in ity of 0.005 % 16:30: both eyes [place] ophthalmic 32 every Medical drops evening. Branch secukinumab 2020-0 Yes 150mg inject 150 [facility] (COSENTYX) 4-08 mg under ity o f 150 mg/mL 16:30: the skin [place] syringe 32 weekly. Medica l Branch omeprazole 2020-0 Yes 40mg Take 40 mg U nivers 40 mg 4-08 by mouth ity of capsule 16:30: daily. [place] [address] Medical Branch DULoxetine 2020-0 Yes 30mg Take 30 mg U nivers 30 mg 4-08 by mouth ity of capsule 16:30: daily. [place] [address] Medical Branch hydroCHLORO 2020-0 Yes 12.5mg Take 12.5 [facility] thiazide 4-08 mg by ity of 12.5 mg 16:30: mouth [place] capsule 32 daily. Medical Branch montelukast 2020-0 Yes 10mg Take 10 mg [facility] 10 mg 4-08 by mouth ity of tablet 16:30: daily. [place] [address] Medical Branch cetirizine 2020-0 Yes 10mg Take 10 mg U nivers (ZYRTEC) 10 4-08 by mouth ity of mg tablet 16:30: daily. [place] [address] Medical Branch albuterol-i 2020-0 Yes 1{puff} Inhale 1 [facility] pratropium 4-08 Puff as ity of 20-100 16:30: needed for [facility]/actuati 32 Wheezing Medi janett on inhaler or Branch Shortness of Breath. spironolact 2020-0 Yes 25mg Take 25 mg [facility] one 25 mg 4-08 by mouth 2 ity of tablet 16:30: (two) [place] [address] times Medical daily. Branch gabapentin 2020-0 Yes 100mg Take 100 Un [place]en 100 mg 4-08 mg by ity of capsule 16:30: mouth at [place] [address] bedtime. Medical Branch ferrous 2020-0 Yes 325mg Take 325 Unive rs sulfate 325 4-08 mg by ity of mg (65 mg 16:30: mouth 3 [place] iron) 32 (three) Medical tablet times [place] daily with meals. metoprolol 2020-0 Yes 100mg Take 100 Un [place] tartrate 4-08 mg by ity of (LOPRESSOR) 16:30: mouth 2 [place] 50 mg 32 (two) Medical tablet times [place] daily. fexofenadin 2020-0 Yes 180mg Take 180 U nivers e (ERIKA) 4-08 mg by ity of 180 mg 16:30: mouth [place] tablet 32 daily. Medical Branch fluticasone 2019-0 Yes 2{spray Use 2 Un [place] (FLONASE) 4-08 } Sprays in ity o f 50 16:30: each [place] mcg/Actuati 32 nostril Medic al on nasal daily. Branch spray latanoprost 2019-0 Yes 1[drp] Place 1 U nivers (XALATAN) 4-08 Drop in ity of 0.005 % 16:30: both eyes [place] ophthalmic 32 every Medical drops evening. Branch secukinumab 2019-0 Yes 150mg inject 150 [facility] (COSENTYX) 4-08 mg under ity o f 150 mg/mL 16:30: the skin [place] syringe 32 weekly. Medica l Branch omeprazole 2019-0 Yes 40mg Take 40 mg U nivers 40 mg 4-08 by mouth ity of capsule 16:30: daily. [address] Branch DULoxetine 2020-0 Yes 30mg Take 30 mg U nivers 30 mg 4-08 by mouth ity of capsule 16:30: daily. [address] Branch hydroCHLORO 2020-0 Yes 12.5mg Take 12.5 [facility] thiazide 4-08 mg by ity of 12.5 mg 16:30: mouth [place] capsule 32 daily. Medical Branch montelukast 2020-0 Yes 10mg Take 10 mg [facility] 10 mg 4-08 by mouth ity of tablet 16:30: daily. [address] Branch cetirizine 2019-0 Yes 10mg Take 10 mg U nivers (ZYRTEC) 10 4-08 by mouth ity of mg tablet 16:30: daily. [place] [address] Medical Branch albuterol-i 2019-0 Yes 1{puff} Inhale [...] by ity of capsule 16:30: mouth at [place] [address] bedtime. Medical Branch ferrous 2020-0 Yes 325mg Take 325 Unive rs sulfate 325 4-08 mg by ity of mg (65 mg 16:30: mouth 3 [place] iron) 32 (three) Medical tablet times [place] daily with meals. metoprolol 2020-0 Yes 100mg Take 100 Un [place] tartrate 4-08 mg by ity of (LOPRESSOR) 16:30: mouth 2 [place] 50 mg 32 (two) Medical tablet times [place] daily. fexofenadin 2020-0 Yes 180mg Take 180 U nivers e (ERIKA) 4-08 mg by ity of 180 mg 16:30: mouth [place] tablet 32 daily. Medical Branch fluticasone 2020-0 Yes 2{spray Use 2 Un [place] (FLONASE) 4-08 } Sprays in ity o f 50 16:30: each [place] mcg/Actuati 32 nostril Medic al on nasal daily. Branch spray latanoprost 2020-0 Yes 1[drp] Place 1 U nivers (XALATAN) 4-08 Drop in ity of 0.005 % 16:30: both eyes [place] ophthalmic 32 every Medical drops evening. Branch secukinumab 2020-0 Yes 150mg inject 150 [facility] (COSENTYX) 4-08 mg under ity o f 150 mg/mL 16:30: the skin [place] syringe 32 weekly. Medica l Branch omeprazole 2020-0 Yes 40mg Take 40 mg U nivers 40 mg 4-08 by mouth ity of capsule 16:30: daily. [place] [address] Medical Branch DULoxetine 2020-0 Yes 30mg Take 30 mg U nivers 30 mg 4-08 by mouth ity of capsule 16:30: daily. [place] [address] Medical Branch hydroCHLORO 2020-0 Yes 12.5mg Take 12.5 [facility] thiazide 4-08 mg by ity of 12.5 mg 16:30: mouth [place] capsule 32 daily. Medical Branch montelukast 2020-0 Yes 10mg Take 10 mg [facility] 10 mg 4-08 by mouth ity of tablet 16:30: daily. [place] [address] Medical Branch cetirizine 2020-0 Yes 10mg Take 10 mg U nivers (ZYRTEC) 10 4-08 by mouth ity of mg tablet 16:30: daily. [place] [address] Medical Branch albuterol-i 2020-0 Yes 1{puff} Inhale 1 [facility] pratropium 4-08 Puff as ity of 20-100 16:30: needed for [place] mcg/actuati 32 Wheezing Medi janett on inhaler or Branch Shortness of Breath. spironolact 2020-0 Yes 25mg Take 25 mg [facility] one 25 mg 4-08 by mouth 2 ity of tablet 16:30: (two) [place] 32 times Medical daily. Branch gabapentin 2020-0 Yes 100mg Take 100 Un [place] 100 mg 4-08 mg by ity of capsule 16:30: mouth at [place] [address] bedtime. Medical Branch ferrous 2020-0 Yes 325mg Take 325 Unive rs sulfate 325 4-08 mg by ity of mg (65 mg 16:30: mouth 3 [place] iron) 32 (three) Medical tablet times [place] daily with meals. metoprolol 2020-0 Yes 100mg Take 100 Un [place] tartrate 4-08 mg by ity of (LOPRESSOR) 16:30: mouth 2 [place] 50 mg 32 (two) Medical tablet times [place] daily. fexofenadin 2020-0 Yes 180mg Take 180 [...] by mouth ity of capsule 16:30: daily. [place] [address] Medical Branch DULoxetine 2020-0 Yes 30mg Take 30 mg U nivers 30 mg 4-08 by mouth ity of capsule 16:30: daily. [place] [address] Medical Branch hydroCHLORO 2020-0 Yes 12.5mg Take 12.5 [facility] thiazide 4-08 mg by ity of 12.5 mg 16:30: mouth [place] capsule 32 daily. Medical Branch montelukast 2020-0 Yes 10mg Take 10 mg [facility] 10 mg 4-08 by mouth ity of tablet 16:30: daily. [place] [address] Medical Branch cetirizine 2020-0 Yes 10mg Take 10 mg U nivers (ZYRTEC) 10 4-08 by mouth ity of mg tablet 16:30: daily. [place] [address] Medical Branch albuterol-i 2020-0 Yes 1{puff} Inhale 1 [facility] pratropium 4-08 Puff as ity of 20-100 16:30: [facility] Wheezing Medi janett on inhaler or Branch Shortness of Breath. spironolact 2020-0 Yes 25mg Take 25 mg [facility] one 25 mg 4-08 by mouth 2 ity of tablet 16:30: (two) [place] [address] times Medical daily. Branch gabapentin 2020-0 Yes 100mg Take 100 Un [place] 100 mg 4-08 mg by ity of capsule 16:30: mouth at [place] [address] bedtime. Medical Branch ferrous 2020-0 Yes 325mg Take 325 Unive rs sulfate 325 4-08 mg by ity of mg (65 mg 16:30: mouth 3 [place] iron) 32 (three) Medical tablet times [place] daily with meals. metoprolol 2020-0 Yes 100mg Take 100 Un [place] tartrate 4-08 mg by ity of (LOPRESSOR) 16:30: mouth 2 [place] as 50 mg 32 (two) Medical tablet times [place] daily. fexofenadin 2020-0 Yes 180mg Take 180 U nivers e (ERIKA) 4-08 mg by ity of 180 mg 16:30: mouth [place] tablet 32 daily. Medical Branch fluticasone 2020-0 Yes 2{spray Use 2 Un [place] (FLONASE) 4-08 } Sprays in ity o f 50 16:30: [facility] Medic al on nasal daily. Branch spray latanoprost 2020-0 Yes 1[drp] Place 1 U nivers (XALATAN) 4-08 Drop in ity of 0.005 % 16:30: both eyes [place] ophthalmic every Medical drops evening. Branch secukinumab 2020-0 Yes 150mg inject 150 [facility] (COSENTYX) 4-08 mg under ity o f 150 mg/mL 16:30: the skin [place] syringe 32 weekly. Medica l Branch omeprazole 2020-0 Yes 40mg Take 40 mg U nivers 40 mg 4-08 by mouth ity of capsule 16:30: daily. [place] [address] Medical Branch DULoxetine 2020-0 Yes 30mg Take 30 mg U nivers 30 mg 4-08 by mouth ity of capsule 16:30: daily. [place] [address] Medical Branch hydroCHLORO 2020-0 Yes 12.5mg Take 12.5 [facility] thiazide 4-08 mg by ity of 12.5 mg 16:30: mouth [place] capsule 32 daily. Medical Branch montelukast 2020-0 Yes 10mg Take 10 mg [facility] 10 mg 4-08 by mouth ity of tablet 16:30: daily. [place] [address] Medical Branch cetirizine 2020-0 Yes 10mg Take 10 mg U nivers (ZYRTEC) 10 4-08 by mouth ity of mg tablet 16:30: daily. [place] [address] Medical Branch albuterol-i 2020-0 Yes 1{puff} Inhale 1 [facility] pratropium 4-08 Puff as ity of 20-100 16:30: needed for [facility]/actuati 32 Wheezing Medi janett on inhaler or Branch Shortness of Breath. spironolact 2020-0 Yes 25mg Take 25 mg [facility] one 25 mg 4-08 by mouth 2 ity of tablet 16:30: (two) [place] [address] times Medical daily. Branch gabapentin 2020-0 Yes 100mg Take 100 Un [place] 100 mg 4-08 mg by ity of capsule 16:30: mouth at [place] [address] bedtime. Medical Branch ferrous 2020-0 Yes 325mg Take 325 Unive rs sulfate 325 4-08 mg by ity of mg (65 mg 16:30: mouth 3 [place] iron) (three) Medical tablet times Branch daily [...] ity of 0.005 % 16:30: both eyes [place] ophthalmic 32 every Medical drops evening. Branch secukinumab 2020-0 Yes 150mg inject 150 Univers (COSENTYX) 4-08 mg under ity o f 150 mg/mL 16:30: the skin [place] syringe 32 weekly. Medica l Branch omeprazole 2020-0 Yes 40mg Take 40 mg U nivers 40 mg 4-08 by mouth ity of capsule 16:30: daily. [address] DULoxetine 2020-0 Yes 30mg Take 30 mg U nivers 30 mg 4-08 by mouth ity of capsule 16:30: daily. [address] Branch hydroCHLORO 2020-0 Yes 12.5mg Take 12.5 [facility] thiazide 4-08 mg by ity of 12.5 mg 16:30: mouth [place] capsule 32 daily. [facility] Branch montelukast 2020-0 Yes 10mg Take 10 mg Univers 10 mg 4-08 by mouth ity of tablet 16:30: daily. [address] cetirizine 2020-0 Yes 10mg Take 10 mg U nivers (ZYRTEC) 10 4-08 by mouth ity of mg tablet 16:30: daily. [address] Branch albuterol-i 2020-0 Yes 1{puff} Inhale [...] by ity of capsule 16:30: mouth at [place] [address] bedtime. Medical Branch ferrous 2020-0 Yes 325mg Take 325 Unive rs sulfate 325 4-08 mg by ity of mg (65 mg 16:30: mouth 3 [place] iron) 32 (three) Medical tablet times [place] daily with meals. metoprolol 2020-0 Yes 100mg Take 100 Un [place] tartrate 4-08 mg by ity of (LOPRESSOR) 16:30: mouth 2 [place] 50 mg 32 (two) Medical tablet times [place] daily. fexofenadin 2020-0 Yes 180mg Take 180 [...] ity of 0.005 % 16:30: both eyes [place] ophthalmic 32 every Medical drops evening. Branch secukinumab 2019-0 Yes 150mg inject 150 Univers (COSENTYX) 4-08 mg under ity o f 150 mg/mL 16:30: the skin [place] syringe 32 weekly. Medica l Branch omeprazole 2020-0 Yes 40mg Take 40 mg U nivers 40 mg 4-08 by mouth ity of capsule 16:30: daily. [place] [address] Medical Branch DULoxetine 2020-0 Yes 30mg Take 30 mg U nivers 30 mg 4-08 by mouth ity of capsule 16:30: daily. [place] [address] Medical Branch hydroCHLORO 2020-0 Yes 12.5mg Take 12.5 [facility] thiazide 4-08 mg by ity of 12.5 mg 16:30: mouth [place] capsule 32 daily. Medical Branch montelukast 2020-0 Yes 10mg Take 10 mg [facility] 10 mg 4-08 by mouth ity of tablet 16:30: daily. [place] 32 Medical Branch cetirizine 2020-0 Yes 10mg Take 10 mg U nivers (ZYRTEC) 10 4-08 by mouth ity of mg tablet 16:30: daily. [address] albuterol-i 2020-0 Yes 1{puff} Inhale 1 [facility] pratropium 4-08 Puff as ity of 20-100 16:30: needed for [place] mcg/actuati 32 Wheezing Medi janett on inhaler or Branch Shortness of Breath. spironolact 2020-0 Yes 25mg Take 25 mg [facility] one 25 mg 4-08 by mouth 2 ity of tablet 16:30: (two) [place] 32 times Medical daily. Branch gabapentin 2020-0 Yes 100mg Take 100 Un [place] 100 mg 4-08 mg by ity of capsule 16:30: mouth at [place] [address] bedtime. Medical Branch ferrous 2020-0 Yes 325mg Take 325 Unive rs sulfate 325 4-08 mg by ity of mg (65 mg 16:30: mouth 3 [place] iron) 32 (three) Medical tablet times [place] daily with meals. metoprolol 2020-0 Yes 100mg Take 100 Un [place] tartrate 4-08 mg by ity of (LOPRESSOR) 16:30: mouth 2 [place] 50 mg 32 (two) Medical tablet times [place] daily. fexofenadin 2020-0 Yes 180mg Take 180 U nivers e (ERIKA) 4-08 mg by ity of 180 mg 16:30: mouth [place] tablet 32 daily. Medical Branch fluticasone 2020-0 Yes 2{spray Use 2 Un [place] (FLONASE) 4-08 } Sprays in ity o f 50 16:30: each [facility]/Actuati 32 nostril Medic al on nasal daily. Branch spray latanoprost 2020-0 Yes 1[drp] Place 1 U nivers (XALATAN) 4-08 Drop in ity of 0.005 % 16:30: both eyes [place] ophthalmic 32 every Medical drops evening. Branch secukinumab 2020-0 Yes 150mg inject 150 Univers (COSENTYX) 4-08 mg under ity o f 150 mg/mL 16:30: the skin [place] syringe 32 weekly. Medica l Branch omeprazole 2020-0 Yes 40mg Take 40 mg U nivers 40 mg 4-08 by mouth ity of capsule 16:30: daily. [address] Branch DULoxetine 2020-0 Yes 30mg Take 30 mg U nivers 30 mg 4-08 by mouth ity of capsule 16:30: daily. [address] Branch hydroCHLORO 2020-0 Yes 12.5mg Take 12.5 [facility] thiazide 4-08 mg by ity of 12.5 mg 16:30: mouth [place] capsule 32 daily. Medical Branch montelukast 2020-0 Yes 10mg Take 10 mg [facility] 10 mg 4-08 by mouth ity of tablet 16:30: daily. [address] Branch cetirizine 2020-0 Yes 10mg Take 10 mg U nivers (ZYRTEC) 10 4-08 by mouth ity of mg tablet 16:30: daily. [address] Branch albuterol-i 2020-0 Yes 1{puff} Inhale 1 [facility] pratropium 4-08 Puff as ity of 20-100 16:30: needed for [place] mcg/actuati 32 Wheezing Medi janett on inhaler or Branch Shortness of Breath. spironolact 2020-0 Yes 25mg Take 25 mg Univers one 25 mg 4-08 by mouth 2 ity of tablet 16:30: (two) [place] 32 times Medical daily. Branch gabapentin 2020-0 Yes 100mg Take 100 Un [place] 100 mg 4-08 mg by ity of capsule 16:30: mouth at [place] [address] bedtime. Medical Branch ferrous 2020-0 Yes 325mg [...] ity of 0.005 % 16:30: both eyes [place] ophthalmic 32 every Medical drops evening. Branch secukinumab 2020-0 Yes 150mg inject 150 Univers (COSENTYX) 4-08 mg under ity o f 150 mg/mL 16:30: the skin [place] syringe 32 weekly. Medica l Branch omeprazole 2020-0 Yes 40mg Take 40 mg U nivers 40 mg 4-08 by mouth ity of capsule 16:30: daily. [place] [address] Medical Branch DULoxetine 2020-0 Yes 30mg Take 30 mg U nivers 30 mg 4-08 by mouth ity of capsule 16:30: daily. [address] Branch hydroCHLORO 2020-0 Yes 12.5mg Take 12.5 [facility] thiazide 4-08 mg by ity of 12.5 mg 16:30: mouth [place] capsule 32 daily. Medical Branch montelukast 2020-0 Yes 10mg Take 10 mg Univers 10 mg 4-08 by mouth ity of tablet 16:30: daily. [address] Branch cetirizine 2020-0 Yes 10mg Take 10 mg U nivers (ZYRTEC) 10 4-08 by mouth ity of mg tablet 16:30: daily. [place] [address] Medical Branch albuterol-i 2020-0 Yes 1{puff} Inhale 1 [facility] pratropium 4-08 Puff as ity of 20-100 16:30: [facility] Wheezing Medi janett on inhaler or Branch Shortness of Breath. spironolact 2020-0 Yes 25mg Take 25 mg [facility] one 25 mg 4-08 by mouth 2 ity of tablet 16:30: (two) [place] [address] times Medical daily. Branch gabapentin 2020-0 Yes 100mg Take 100 Un [place] 100 mg 4-08 mg by ity of capsule 16:30: mouth at [place] [address] bedtime. Medical Branch ferrous 2020-0 Yes 325mg Take 325 Unive rs sulfate 325 4-08 mg by ity of mg (65 mg 16:30: mouth 3 [place] iron) 32 (three) Medical tablet times [place] daily with meals. metoprolol 2020-0 Yes 100mg [...] ity of 0.005 % 16:30: both eyes [place] ophthalmic 32 every Medical drops evening. Branch secukinumab 2020-0 Yes 150mg inject 150 Univers (COSENTYX) 4-08 mg under ity o f 150 mg/mL 16:30: the skin [place] syringe 32 weekly. Medica l Branch omeprazole 2019-0 Yes 40mg Take 40 mg U nivers 40 mg 4-08 by mouth ity of capsule 16:30: daily. [address] DULoxetine 2020-0 Yes 30mg Take 30 mg U nivers 30 mg 4-08 by mouth ity of capsule 16:30: daily. [address] Branch hydroCHLORO 2020-0 Yes 12.5mg Take 12.5 [facility] thiazide 4-08 mg by ity of 12.5 mg 16:30: mouth [place] capsule 32 daily. Medical Branch montelukast 2020-0 Yes 10mg Take 10 mg Univers 10 mg 4-08 by mouth ity of tablet 16:30: daily. [address] Branch cetirizine 2020-0 Yes 10mg Take 10 mg U nivers (ZYRTEC) 10 4-08 by mouth ity of mg tablet 16:30: daily. [address] Branch albuterol-i 2020-0 Yes 1{puff} Inhale 1 [facility] pratropium 4-08 Puff as ity of 20-100 16:30: needed for [place] mcg/actuati 32 Wheezing Medi janett on inhaler or Branch Shortness of Breath. spironolact 2020-0 Yes 25mg Take 25 mg [facility] one 25 mg 4-08 by mouth 2 ity of tablet 16:30: (two) [place] 32 times Medical daily. Branch gabapentin 2020-0 Yes 100mg Take 100 Un [place] 100 mg 4-08 mg by ity of capsule 16:30: mouth at [place] [address] bedtime. Medical Branch ferrous 2020-0 Yes 325mg Take 325 Unive rs sulfate 325 4-08 mg by ity of mg (65 mg 16:30: mouth 3 [place] iron) 32 (three) Medical tablet times [place] daily with meals. metoprolol 2020-0 Yes 100mg Take 100 Un [place] tartrate 4-08 mg by ity of (LOPRESSOR) 16:30: mouth 2 [place] 50 mg 32 (two) Medical tablet times [place] daily. fexofenadin 2020-0 Yes 180mg Take 180 [...] ity of 0.005 % 16:30: both eyes [place] ophthalmic 32 every Medical drops evening. Branch secukinumab 2020-0 Yes 150mg inject 150 Univers (COSENTYX) 4-08 mg under ity o f 150 mg/mL 16:30: the skin [place] syringe 32 weekly. Medica l Branch omeprazole 2020-0 Yes 40mg Take 40 mg U nivers 40 mg 4-08 by mouth ity of capsule 16:30: daily. [place] [address] Medical Branch DULoxetine 2020-0 Yes 30mg Take 30 mg U nivers 30 mg 4-08 by mouth ity of capsule 16:30: daily. [place] [address] Medical Branch hydroCHLORO 2020-0 Yes 12.5mg Take 12.5 [facility] thiazide 4-08 mg by ity of 12.5 mg 16:30: mouth [place] capsule 32 daily. Medical Branch montelukast 2020-0 Yes 10mg Take 10 mg Univers 10 mg 4-08 by mouth ity of tablet 16:30: daily. [place] [address] Medical Branch cetirizine 2020-0 Yes 10mg Take 10 mg U nivers (ZYRTEC) 10 4-08 by mouth ity of mg tablet 16:30: daily. [place] [address] Medical Branch albuterol-i 2020-0 Yes 1{puff} Inhale 1 [facility] pratropium 4-08 Puff as ity of 20-100 16:30: needed for [place] mcg/actuati 32 Wheezing Medi janett on inhaler or Branch Shortness of Breath. spironolact 2020-0 Yes 25mg Take 25 mg [facility] one 25 mg 4-08 by mouth 2 ity of tablet 16:30: (two) [place] 32 times Medical daily. Branch gabapentin 2020-0 Yes 100mg Take 100 Un [place] 100 mg 4-08 mg by ity of capsule 16:30: mouth at [place] [address] bedtime. Medical Branch ferrous 2020-0 Yes 325mg Take 325 Unive rs sulfate 325 4-08 mg by ity of mg (65 mg 16:30: mouth 3 [place] iron) 32 (three) Medical tablet times [place] daily with meals. metoprolol 2020-0 Yes 100mg Take 100 Un [place] tartrate 4-08 mg by ity of (LOPRESSOR) 16:30: mouth 2 [place] 50 mg 32 (two) Medical tablet times [place] daily. fexofenadin 2020-0 Yes 180mg Take 180 U nivers e (ERIKA) 4-08 mg by ity of 180 mg 16:30: mouth [place] tablet 32 daily. Medical Branch fluticasone 2020-0 Yes 2{spray Use 2 Un [place] (FLONASE) 4-08 } Sprays in ity o f 50 16:30: each [place] mcg/Actuati 32 nostril Medic al on nasal daily. Branch spray latanoprost 2020-0 Yes 1[drp] Place 1 U nivers (XALATAN) 4-08 Drop in ity of 0.005 % 16:30: both eyes [place] ophthalmic 32 every Medical drops evening. Branch secukinumab 2020-0 Yes 150mg inject 150 Univers (COSENTYX) 4-08 mg under ity o f 150 mg/mL 16:30: the skin [place] syringe 32 weekly. Medica l Branch omeprazole 2020-0 Yes 40mg Take 40 mg U nivers 40 mg 4-08 by mouth ity of capsule 16:30: daily. [place] [address] Medical Branch DULoxetine 2020-0 Yes 30mg Take 30 mg U nivers 30 mg 4-08 by mouth ity of capsule 16:30: daily. [place] [address] Medical Branch hydroCHLORO 2020-0 Yes 12.5mg Take 12.5 [facility] thiazide 4-08 mg by ity of 12.5 mg 16:30: mouth [place] capsule 32 daily. Medical Branch montelukast 2020-0 Yes 10mg Take 10 mg Univers 10 mg 4-08 by mouth ity of tablet 16:30: daily. [place] [address] Medical Branch cetirizine 2020-0 Yes 10mg Take 10 mg U nivers (ZYRTEC) 10 4-08 by mouth ity of mg tablet 16:30: daily. [place] [address] Medical Branch albuterol-i 2020-0 Yes 1{puff} Inhale 1 [facility] pratropium 4-08 Puff as ity of 20-100 16:30: needed for [facility]/actuati Wheezing Medi janett on inhaler or Branch Shortness of Breath. spironolact 2020-0 Yes 25mg Take 25 mg [facility] one 25 mg 4-08 by mouth 2 ity of tablet 16:30: (two) [place] 32 times Medical daily. Branch gabapentin 2020-0 Yes 100mg Take 100 Un [place] 100 mg 4-08 mg by ity of capsule 16:30: mouth at [place] [address] bedtime. Medical Branch ferrous 2020-0 Yes 325mg [...] in ity o f 50 16:30: each [place] mcg/Actuati 32 nostril Medic al on nasal daily. Branch spray latanoprost 2020-0 Yes 1[drp] Place 1 U nivers (XALATAN) 4-08 Drop in ity of 0.005 % 16:30: both eyes [place] ophthalmic 32 every Medical drops evening. Branch secukinumab 2020-0 Yes 150mg inject 150 Univers (COSENTYX) 4-08 mg under ity o f 150 mg/mL 16:30: the skin [place] syringe 32 weekly. Medica l Branch omeprazole 2020-0 Yes 40mg Take 40 mg U nivers 40 mg 4-08 by mouth ity of capsule 16:30: daily. [place] [address] Medical Branch DULoxetine 2020-0 Yes 30mg Take 30 mg U nivers 30 mg 4-08 by mouth ity of capsule 16:30: daily. [place] [address] Medical Branch hydroCHLORO 2020-0 Yes 12.5mg Take 12.5 [facility] thiazide 4-08 mg by ity of 12.5 mg 16:30: mouth [place] capsule 32 daily. Medical Branch montelukast 2020-0 Yes 10mg Take 10 mg Univers 10 mg 4-08 by mouth ity of tablet 16:30: daily. [place] [address] Medical Branch cetirizine 2020-0 Yes 10mg Take 10 mg U nivers (ZYRTEC) 10 4-08 by mouth ity of mg tablet 16:30: daily. [place] [address] Medical Branch albuterol-i 2020-0 Yes 1{puff} Inhale 1 [facility] pratropium 4-08 Puff as ity of 20-100 16:30: [facility] Wheezing Medi janett on inhaler or Branch Shortness of Breath. spironolact 2020-0 Yes 25mg Take 25 mg [facility] one 25 mg 4-08 by mouth 2 ity of tablet 16:30: (two) [place] [address] times Medical daily. Branch gabapentin 2020-0 Yes 100mg Take 100 Un [place] 100 mg 4-08 mg by ity of capsule 16:30: mouth at [place] [address] bedtime. Medical Branch ferrous 2020-0 Yes 325mg Take 325 Unive rs sulfate 325 4-08 mg by ity of mg (65 mg 16:30: mouth 3 [place] iron) 32 (three) Medical tablet times [place] daily with meals. metoprolol 2020-0 Yes 100mg Take 100 Un [place] tartrate 4-08 mg by ity of (LOPRESSOR) 16:30: mouth 2 [place] 50 mg 32 (two) Medical tablet times [place] daily. fexofenadin 2020-0 Yes 180mg Take 180 U nivers e (ERIKA) 4-08 mg by ity of 180 mg 16:30: mouth [place] tablet 32 daily. Medical Branch fluticasone 2020-0 Yes 2{spray Use 2 Un [place] (FLONASE) 4-08 } Sprays in ity o f 50 16:30: each [place] mcg/Actuati 32 nostril Medic al on nasal daily. Branch spray latanoprost 2020-0 Yes 1[drp] Place 1 U nivers (XALATAN) 4-08 Drop in ity of 0.005 % 16:30: both eyes [place] ophthalmic 32 every Medical drops evening. Branch secukinumab 2020-0 Yes 150mg inject 150 Univers (COSENTYX) 4-08 mg under ity o f 150 mg/mL 16:30: the skin [place] syringe 32 weekly. Medica l Branch omeprazole 2020-0 Yes 40mg Take 40 mg U nivers 40 mg 4-08 by mouth ity of capsule 16:30: daily. [place] [address] Medical Branch DULoxetine 2020-0 Yes 30mg Take 30 mg U nivers 30 mg 4-08 by mouth ity of capsule 16:30: daily. [place] [address] Medical Branch hydroCHLORO 2020-0 Yes 12.5mg Take 12.5 [facility] thiazide 4-08 mg by ity of 12.5 mg 16:30: mouth [place] capsule 32 daily. Medical Branch montelukast 2020-0 Yes 10mg Take 10 mg Univers 10 mg 4-08 by mouth ity of tablet 16:30: daily. [place] [address] Medical Branch cetirizine 2020-0 Yes 10mg Take 10 mg U nivers (ZYRTEC) 10 4-08 by mouth ity of mg tablet 16:30: daily. [place] [address] Medical Branch albuterol-i 2020-0 Yes 1{puff} Inhale 1 [facility] pratropium 4-08 Puff as ity of 20-100 16:30: needed for [place] mcg/actuati 32 Wheezing Medi janett on inhaler or Branch Shortness of Breath. spironolact 2020-0 Yes 25mg Take 25 mg [facility] one 25 mg 4-08 by mouth 2 ity of tablet 16:30: (two) [place] 32 times Medical daily. Branch gabapentin 2020-0 Yes 100mg Take 100 Un [place] 100 mg 4-08 mg by ity of capsule 16:30: mouth at [place] [address] bedtime. Medical Branch ferrous 2020-0 Yes 325mg Take 325 Unive rs sulfate 325 4-08 mg by ity of mg (65 mg 16:30: mouth 3 [place] iron) 32 (three) Medical tablet times [place] daily with meals. metoprolol 2020-0 Yes 100mg Take 100 Un [place] tartrate 4-08 mg by ity of (LOPRESSOR) 16:30: mouth 2 [place] 50 mg 32 (two) Medical tablet times [place] daily. fexofenadin 2020-0 Yes 180mg Take 180 [...] ity of 0.005 % 16:30: both eyes [place] ophthalmic 32 every Medical drops evening. Branch secukinumab 2019-0 Yes 150mg inject 150 Univers (COSENTYX) 4-08 mg under ity o f 150 mg/mL 16:30: the skin [place] syringe 32 weekly. Medica l Branch omeprazole 2019-0 Yes 40mg Take 40 mg U nivers 40 mg 4-08 by mouth ity of capsule 16:30: daily. [address] Branch DULoxetine 2020-0 Yes 30mg Take 30 mg U nivers 30 mg 4-08 by mouth ity of capsule 16:30: daily. [address] Branch hydroCHLORO 2020-0 Yes 12.5mg Take 12.5 [facility] thiazide 4-08 mg by ity of 12.5 mg 16:30: mouth [place] capsule 32 daily. Medical Branch montelukast 2020-0 Yes 10mg Take 10 mg Univers 10 mg 4-08 by mouth ity of tablet 16:30: daily. [address] Branch cetirizine 2020-0 Yes 10mg Take 10 mg U nivers (ZYRTEC) 10 4-08 by mouth ity of mg tablet 16:30: daily. [place] [address] Medical Branch albuterol-i 2019-0 Yes 1{puff} Inhale 1 [facility] pratropium 4-08 Puff as ity of 20-100 16:30: needed for [place] mcg/actuati 32 Wheezing Medi janett on inhaler or Branch Shortness of Breath. spironolact 2020-0 Yes 25mg Take 25 mg [facility] one 25 mg 4-08 by mouth 2 ity of tablet 16:30: (two) [place] 32 times Medical daily. Branch gabapentin 2020-0 Yes 100mg Take 100 Un [place] 100 mg 4-08 mg by ity of capsule 16:30: mouth at [place] [address] bedtime. Medical Branch ferrous 2020-0 Yes 325mg Take 325 Unive rs sulfate 325 4-08 mg by ity of mg (65 mg 16:30: mouth 3 [place] iron) 32 (three) Medical tablet times [place] daily with meals. metoprolol 2020-0 Yes 100mg [...] in ity o f 50 16:30: each [place] mcg/Actuati 32 nostril Medic al on nasal daily. Branch spray latanoprost 2020-0 Yes 1[drp] Place 1 U nivers (XALATAN) 4-08 Drop in ity of 0.005 % 16:30: both eyes [place] ophthalmic 32 every Medical drops evening. Branch secukinumab 2020-0 Yes 150mg inject 150 Univers (COSENTYX) 4-08 mg under ity o f 150 mg/mL 16:30: the skin [place] syringe 32 weekly. Medica l Branch omeprazole 2020-0 Yes 40mg Take 40 mg U nivers 40 mg 4-08 by mouth ity of capsule 16:30: daily. [place] [address] Medical Branch DULoxetine 2020-0 Yes 30mg Take 30 mg U nivers 30 mg 4-08 by mouth ity of capsule 16:30: daily. [place] [address] Medical Branch hydroCHLORO 2020-0 Yes 12.5mg Take 12.5 [facility] thiazide 4-08 mg by ity of 12.5 mg 16:30: mouth [place] capsule 32 daily. Medical Branch montelukast 2020-0 Yes 10mg Take 10 mg Univers 10 mg 4-08 by mouth ity of tablet 16:30: daily. [place] [address] Medical Branch cetirizine 2020-0 Yes 10mg Take 10 mg U nivers (ZYRTEC) 10 4-08 by mouth ity of mg tablet 16:30: daily. [place] [address] Medical Branch albuterol-i 2020-0 Yes 1{puff} Inhale 1 [facility] pratropium 4-08 Puff as ity of 20-100 16:30: needed for [place] mcg/actuati 32 Wheezing Medi janett on inhaler or Branch Shortness of Breath. spironolact 2020-0 Yes 25mg Take 25 mg [facility] one 25 mg 4-08 by mouth 2 ity of tablet 16:30: (two) [place] 32 times Medical daily. Branch gabapentin 2020-0 Yes 100mg Take 100 Un a[place]en 100 mg 4-08 mg by ity of capsule 16:30: mouth at [place] [address] bedtime. Medical Branch ferrous 2020-0 Yes 325mg Take 325 Unive rs sulfate 325 4-08 mg by ity of mg (65 mg 16:30: mouth 3 [place] iron) 32 (three) Medical tablet times [place] daily with meals. metoprolol 2020-0 Yes 100mg [...] ity of 0.005 % 16:30: both eyes [place] ophthalmic 32 every Medical drops evening. Branch secukinumab 2020-0 Yes 150mg inject 150 Univers (COSENTYX) 4-08 mg under ity o f 150 mg/mL 16:30: the skin [place] syringe 32 weekly. Medica l Branch omeprazole 2020-0 Yes 40mg Take 40 mg U nivers 40 mg 4-08 by mouth ity of capsule 16:30: daily. [place] [address] Medical Branch DULoxetine 2020-0 Yes 30mg Take 30 mg U nivers 30 mg 4-08 by mouth ity of capsule 16:30: daily. [place] [address] Medical Branch hydroCHLORO 2020-0 Yes 12.5mg Take 12.5 [facility] thiazide 4-08 mg by ity of 12.5 mg 16:30: mouth [place] capsule 32 daily. Medical Branch montelukast 2020-0 Yes 10mg Take 10 mg Univers 10 mg 4-08 by mouth ity of tablet 16:30: daily. [place] [address] Medical Branch cetirizine 2020-0 Yes 10mg Take 10 mg U nivers (ZYRTEC) 10 4-08 by mouth ity of mg tablet 16:30: daily. [place] [address] Medical Branch albuterol-i 2020-0 Yes 1{puff} Inhale 1 [facility] pratropium 4-08 Puff as ity of 20-100 16:30: needed for [facility]/actuati Wheezing Medi janett on inhaler or Branch Shortness of Breath. spironolact 2020-0 Yes 25mg Take 25 mg Univers one 25 mg 4-08 by mouth 2 ity of tablet 16:30: (two) [place] [address] times Medical daily. Branch gabapentin 2020-0 Yes 100mg Take 100 Un [place] 100 mg 4-08 mg by ity of capsule 16:30: mouth at [place] [address] bedtime. Medical Branch ferrous 2020-0 Yes 325mg Take 325 Unive rs sulfate 325 4-08 mg by ity of mg (65 mg 16:30: mouth 3 [place] iron) 32 (three) Medical tablet times [place] daily with meals. metoprolol 2020-0 Yes 100mg [...] by mouth ity of capsule 16:30: daily. [place] [address] Medical Branch DULoxetine 2020-0 Yes 30mg Take 30 mg U nivers 30 mg 4-08 by mouth ity of capsule 16:30: daily. [address] Branch hydroCHLORO 2020-0 Yes 12.5mg Take 12.5 [facility] thiazide 4-08 mg by ity of 12.5 mg 16:30: mouth [place] capsule 32 daily. Medical Branch flu vaccine 2020-0 2020- No .5mL 0.5 mL, Un aileen 65 yrs and 4- 04-08 Intramuscu it y of up (FLUZONE 15:45: 15:56 lar, ONCE, [place] HIGH-DOSE 00 :00 1 dose, Medical 02/22/20 Branch (PF)) at 1045, syringe 0.5 Routine mL metFORMIN 2020-0 2020- No 1000mg Take 1,000 Univers (GLUCOPHAGE - 04-08 mg by ity of ) 500 mg 15:01: 00:00 mouth 2 [place] tablet 25 :00 (two) Medical times Branch daily with meals. insulin 2020-0 2020- No 22U inject 22 Univ ers degludec 4-08 04-08 Units ity of (TRESIBA 15:01: 00:00 under the [place] as FLEXTOUCH 25 :00 skin Medical U-100) 100 daily. Branch unit/mL (3 mL) InPn sitaGLIPtin 2020-0 2020- No 1{tbl} Take 1 U nivers -metformin 4-08 04-08 tablet by ity of (JANUMET 15:01: 00:00 mouth [place] XR) 25 :00 daily. Medical 50-1,000 mg Branch per tablet lisinopril 2020-0 2020- No 20mg Take 20 mg Univers 20 mg 02-21 by mouth ity of tablet 15:01: 00:00 daily. [place] 25 :00 Medical Branch amLODIPine 2019-0 2020- No 5mg Take 5 mg U nivers 5 mg tablet 02-21 by mouth ity of 15:01: 00:00 daily. [place] 25 :00 Medical Branch fluticasone 2019-0 2020- No Inhale. Un aileen -umeclidin- 02-21 ity of [place] 15:01: 00:00 [place] (TRELEGY 25 :00 Medical ELLIPTA) Branch 100-62.5-25 mcg DsDv amLODIPine 2019-0 Yes 10mg 10 mg, Unive rs (NORVASC) 4-08 Oral, ity of tablet 10 14:00: DAILY, [place] mg 00 First dose Medical on Thu Branch 02/22/20 at 0900, Until Discontinu ed, Routine lisinopril 2020-0 Yes 20mg 20 mg, Unive rs (PRINIVIL,Z 08 Oral, BID, it y of ESTRIL) 01:00: [place] tablet 20 00 on Thu Medical mg 02/21/20 at Branch 2000, Until Discontinu ed, Routine lisinopril 2020-0 2020- No [id number] 20mg Take 1 [facility] 20 mg 02-21 9104 tablet by ity of tablet 00:00: 04:59 mouth 2 [place] 00 :00 (two) Medical times Branch daily for 30 days. lactulose 2020-0 2020- No [id number] 30mL Take 30 mL [facility] 10 gram/15 02-21 by mouth ity of mL solution 00:00: 04:59 daily for [place] 00 :00 30 days. Medical Branch lisinopril 2020-0 2020- No [id number] 20mg Take 1 [facility] 20 mg 02-21 9104 tablet by ity of tablet 00:00: 04:59 mouth 2 [place] 00 :00 (two) Medical times Branch daily for 30 days. lactulose 2020-0 2020- No [id number] 30mL Take 30 mL [facility] 10 gram/15 02-21 by mouth ity of mL solution 00:00: 04:59 daily for [place] 00 :00 30 days. Medical Branch lisinopril 2020-0 2020- No [id number] 20mg Take 1 [facility] 20 mg 02-21 9104 tablet by ity of tablet 00:00: 04:59 mouth 2 [place] 00 :00 (two) Medical times [place] daily for 30 days. lactulose 2020-0 2020- No [id number] 30mL Take 30 mL [facility] 10 gram/15 02-21 by mouth ity of mL solution 00:00: 04:59 daily for [place] 00 :00 30 days. Medical Branch lisinopril 2019-0 2020- No [id number] 20mg Take 1 [facility] 20 mg 02-21 9104 tablet by ity of tablet 00:00: 04:59 mouth 2 [place] 00 :00 (two) Medical times [place] daily for 30 days. lactulose 2019-0 2020- No [id number] 30mL Take 30 mL [facility] 10 gram/15 02-21 by mouth ity of mL solution 00:: 04:59 daily for [place] 00 :00 30 days. Medical Branch acetaminoph 2020-0 Yes 500mg 500 mg, Un aileen en 02-20 Oral, ity of (TYLENOL) 21:33: Q6HPRN, [place] tablet 500 50 Starting Medic al mg [facility] 02/21/20 Branch at 1633, Until Discontinu ed, Routine, Pain (scale 1-3), Temp > 38.5 C omeprazole 2020-0 Yes 40mg 40 mg, Unive rs (PRILOSEC) 4 Oral, ity of capsule 40 14:00: DAILY, [place] mg 00 First dose Medical on [facility] 02/21/20 at 0900, Until Discontinu ed KCL 2020-0 Yes 20meq 20 mEq, Univers (KLOR-CON 4- Oral, ity of M20) tablet 14:00: DAILY, [place] 20 mEq 00 First dose Medical on [facility] 02/21/20 at 0900, Until Discontinu ed, Routine montelukast 2020-0 Yes 10mg 10 mg, Univ ers (SINGULAIR) 4- Oral, ity of tablet 10 14:00: DAILY, [place] mg 00 First dose Medical on [facility] 02/21/20 at 0900, Until Discontinu ed, Routine amLODIPine 2020-0 2020- No 5mg 5 mg, Unive rs (NORVASC) 02-20 04-08 Oral, ity of tablet 5 mg 14:00: 12:25 DAILY, [place] as 00 :55 First dose Medical on [facility] 02/21/20 at 0900, Until Discontinu ed, Routine lisinopril 2020-0 2020- No 20mg 20 mg, Univ ers (PRINIVIL,Z 02-20-07 Oral, ity of ESTRIL) 14:00: 21:34 DAILY, [place] tablet 20 00 :24 First dose Medi janett mg on Thu [place] 02/21/20 at 0900, Until Discontinu ed, Routine codeine-gua 2020-0 Yes 5mL 5 mL, Unive rs ifenesin - Oral, ity of (ROBITUSSIN 03:29: Q6HPRN, [place] as AC) 10-100 29 Starting Medic al mg/5 mL [facility] 02/20/20 Branch solution 5 at 2229, mL Until Discontinu ed, Routine, Cough Sliding 2020-0 Yes Subcutaneo Univ ers Scale 4-07 us, TID ity of Insulin - 02:00: MEALS+HS, [place] as Aspart 00 First dose Medical (NOVOLOG) + on Thu [place] 02/20/20 at Testing 2100, Until Discontinu ed, Routine gabapentin 2020-0 Yes 100mg 100 mg, Uni vers (NEURONTIN) 4-07 Oral, QHS, it y of capsule 100 02:00: First dose [place] mg 00 on [facility] Medical 02/20/20 at Branch 2100, Until Discontinu ed, Routine spironolact 2020-0 Yes 25mg 25 mg, Univ ers one 4-07 Oral, BID, ity of (ALDACTONE) 01:00: First dose [place] tablet 25 00 on Mon Medical mg 02/20/20 at Branch 2000, Until Discontinu ed, Routine metoprolol 2020-0 Yes 100mg 100 mg, Uni vers tartrate 4-07 Oral, BID, ity o f (LOPRESSOR) 01:00: First dose [place] tablet 100 00 on Mon Medical mg 02/20/20 at Branch 2000, Until Discontinu ed, Routine furosemide 2020-0 Yes 40mg 40 mg, Unive rs (LASIX) 4-07 Oral, BID, ity of tablet 40 01:00: First dose [place] mg 00 on [facility] 02/20/20 at Branch 2000, Until Discontinu ed, Routine lactulose 2020-0 Yes 30mL 30 mL, Univer s (CEPHULAC) 4-07 Oral, ity of solution 30 00:45: Q12H, [place] mL 00 First dose Medical on [facility] 02/20/20 at 1945, Until Discontinu ed, Routine hydralAZINE 2019-0 Yes 10mg 10 mg, Univ ers (APRESOLINE 4-07 Intravenou it y of ) injection 00:42: s, Q8HPRN, [place] 10 mg 19 Starting Medical [facility] 02/20/20 Branch at 1942, Until Discontinu ed, Routine, Hypertensi on ondansetron 2019-0 Yes 4mg 4 mg, Slow Univers (ZOFRAN 4-07 IV Push, ity of (PF)) 00:21: Q6HPRN, [place] injection 4 01 Starting Medi janett mg [facility] 02/20/20 Branch at 1921, Until Discontinu ed, Routine, Nausea and Vomiting (N/V) hydralAZINE 2019-0 2020- No 10mg 10 mg, Uni vers (APRESOLINE 4-06 04-06 Intravenou i ty of ) injection 23:45: 22:46 s, ONCE, 1 [place] 10 mg 00 :00 dose, [facility] 02/20/20 at Branch 1845, LOPEZ SITagliptin 2018-11 Yes 1{tbl} QD Take [address] -metFORMIN 1-05 tablet by James s (JANUMET) 16:17: mouth Medical 50-1,000 mg 34 daily. [place] per tablet montelukast 2018-11 Yes 10mg QD Take [address] [facility] (SINGULAIR) 1-05 by mouth [facility] 10 mg 16:17: nightly. Medical tablet 34 [place] lisinopril 2018-11 Yes 20mg QD Take [address] (PRINIVIL,Z 1-05 by mouth Luke s ESTRIL) 20 16:17: daily. Medic al MG tablet 34 [place] metoprolol 2018-11 Yes 100mg Q.5D Take [address] (LOPRESSOR) 1-05 mg by [facility] 100 MG 16:17: mouth 2 Medical tablet 34 (two) Center times daily. amLODIPine 2018-11 Yes 5mg QD Take [address] [facility] (NORVASC) 5 1-05 by mouth Luke s MG tablet 16:17: daily. Medica l 34 [place] hydroCHLORO 2018-11 Yes 12.5mg QD Take 12.[address] [facility] thiazide 1-05 mg by [facility] (MICROZIDE) 16:17: mouth Medic al 12.5 mg 34 daily. [place] capsule omeprazole 2018-11 Yes 40mg QD Take [address] (PRILOSEC) 1-05 by mouth [facility] 40 MG 16:17: daily. Medical capsule 34 [place] brimonidine 2018-11 Yes 1[drp] Q.5D Place [address] (ALPHAGAN) 1-05 drop into Luke s 0.15 % 16:17: both eyes Medica l ophthalmic 34 2 (two) Center solution times daily. insulin 2018-11 Yes 30U QD Inject 30 [facility] degludec 1-05 Units [facility] 100 unit/mL 16:17: subcutaneo Medical (3 mL) InPn us Center daily. latanoprost 2018-11 Yes 1[drp] QD Place [address] (XALATAN) 1-05 drop into [facility] 0.005 % 16:17: both eyes Medic al ophthalmic 34 nightly. Cente r solution montelukast 2018-11 Yes 10mg QD Take [address] [facility] (SINGULAIR) 1-05 by mouth Luke s 10 mg 16:17: nightly. Medical tablet 34 [place] lisinopril 2018-11 Yes 20mg QD Take [address] (PRINIVIL,Z 1-05 by mouth Luke s ESTRIL) 20 16:17: daily. Medic al MG tablet 34 [place] metoprolol 2018-11 Yes 100mg Q.5D Take [address] (LOPRESSOR) 1-05 mg by [facility] 100 MG 16:17: mouth 2 Medical tablet 34 (two) Center times daily. amLODIPine 2018-11 Yes 5mg QD Take [address] (NORVASC) 5 1-05 by mouth Luke s MG tablet 16:17: daily. Medica l 34 [place] hydroCHLORO 2018-11 Yes 12.5mg QD Take 12.[address] thiazide 1-05 mg by [facility] (MICROZIDE) 16:17: mouth Medic al 12.5 mg 34 daily. [place] capsule omeprazole 2018-11 Yes 40mg QD Take [...] al ophthalmic 34 nightly. Cente r solution SITagliptin 2018-11 Yes 1{tbl} QD Take [address] -metFORMIN 1-05 tablet by Luke s (JANUMET) 16:17: mouth Medical 50-1,000 mg 34 daily. Center per tablet albuterol 2018-11 Yes 2{puff} Inhale 2 C [...] + D Branch ORAL) methotrexat 2020- No [id number] 20mg Take 8 Univers e 04-24 04-08 Tabs by ity of (RHEUMATREX 00:00: 00:[place] mouth [place] ) 2.5 mg 00 :00 weekly. Medical [facility] Branch foLIC acid Yes [id number] 1mg Take 1 Tab Univers (FOLATE) 1 5-25 by mouth ity o f mg tablet 00:00: daily. Medical Branch foLIC acid Yes [id number] 1mg Take 1 Tab Univers (FOLATE) 1 5-25 by mouth ity o f mg tablet 00:00: daily. Medical Branch foLIC acid Yes [id number] 1mg Take 1 Tab Univers (FOLATE) 1 5-25 by mouth ity o f mg tablet 00:00: daily. [place] [facility] foLIC acid Yes [id number] 1mg Take 1 Tab Univers (FOLATE) 1 5-25 by mouth ity o f mg tablet 00:00: daily. [place] [facility] foLIC acid Yes [id number] 1mg Take 1 Tab Univers (FOLATE) 1 5-25 by mouth ity o f mg tablet 00:00: daily. [place] [facility] foLIC acid Yes [id number] 1mg Take 1 Tab Univers (FOLATE) 1 5-25 by mouth ity o f mg tablet 00:00: daily. [place] [facility] foLIC acid Yes [id number] 1mg Take 1 Tab Univers (FOLATE) 1 5-25 by mouth ity o f mg tablet 00:00: daily. [place] [facility] foLIC acid Yes [id number] 1mg Take 1 Tab Univers (FOLATE) 1 5-25 by mouth ity o f mg tablet 00:00: daily. [place] [facility] foLIC acid Yes [id number] 1mg Take 1 Tab Univers (FOLATE) 1 5-25 by mouth ity o f mg tablet 00:00: daily. [place] [facility] foLIC acid Yes [id number] 1mg Take 1 Tab Univers (FOLATE) 1 5-25 by mouth ity o f mg tablet 00:00: daily. [place] [facility] foLIC acid Yes [id number] 1mg Take 1 Tab Univers (FOLATE) 1 5-25 by mouth ity o f mg tablet 00:00: daily. [place] [facility] foLIC acid Yes [id number] 1mg Take 1 Tab Univers (FOLATE) 1 5-25 by mouth ity o f mg tablet 00:00: daily. [place] [facility] foLIC acid Yes [id number] 1mg Take 1 Tab Univers (FOLATE) 1 5-25 by mouth ity o f mg tablet 00:00: daily. [place] [facility] foLIC acid Yes [id number] 1mg Take 1 Tab Univers (FOLATE) 1 5-25 by mouth ity o f mg tablet 00:00: daily. [address] foLIC acid Yes [id number] 1mg Take 1 Tab Univers (FOLATE) 1 5-25 by mouth ity o f mg tablet 00:00: daily. [place] [facility] foLIC acid Yes [id number] 1mg Take 1 Tab Univers (FOLATE) 1 5-25 by mouth ity o f mg tablet 00:00: daily. [place] [facility] foLIC acid Yes [id number] 1mg Take 1 Tab Univers (FOLATE) 1 5-25 by mouth ity o f mg tablet 00:00: daily. [place] [facility] foLIC acid Yes [id number] 1mg Take 1 Tab Univers (FOLATE) 1 5-25 by mouth ity o f mg tablet 00:00: daily. [place] [facility] foLIC acid Yes [id number] 1mg Take 1 Tab Univers (FOLATE) 1 5-25 by mouth ity o f mg tablet 00:00: daily. [place] [facility] foLIC acid Yes [id number] 1mg Take 1 Tab Univers (FOLATE) 1 5-25 by mouth ity o f mg tablet 00:00: daily. [place] [facility] foLIC acid Yes [id number] 1mg Take 1 Tab Univers (FOLATE) 1 5-25 by mouth ity o f mg tablet 00:00: daily. [place] [facility] foLIC acid Yes [id number] 1mg Take 1 Tab Univers (FOLATE) 1 5-25 by mouth ity o f mg tablet 00:00: daily. [place] [facility] foLIC acid Yes [id number] 1mg Take 1 Tab Univers (FOLATE) 1 5-25 by mouth ity o f mg tablet 00:00: daily. [place] [facility] foLIC acid Yes [id number] 1mg Take 1 Tab Univers (FOLATE) 1 5-25 by mouth ity o f mg tablet 00:00: daily. [place] [facility] foLIC acid Yes [id number] 1mg Take 1 Tab Univers (FOLATE) 1 5-25 by mouth ity o f mg tablet 00:00: daily. [place] [facility] foLIC acid Yes [id number] 1mg Take 1 Tab Univers (FOLATE) 1 5-25 by mouth ity o f mg tablet 00:00: daily. [place] [facility] foLIC acid Yes [id number] 1mg Take 1 Tab Univers (FOLATE) 1 5-25 by mouth ity o f mg tablet 00:00: daily. [place] [facility] foLIC acid Yes [id number] 1mg Take 1 Tab Univers (FOLATE) 1 5-25 by mouth ity o f mg tablet 00:00: daily. [place] [facility] Branch foLIC acid Yes [id number] 1mg Take 1 Tab Univers (FOLATE) 1 5-25 by mouth ity o f mg tablet 00:00: daily. [place] [facility] Branch foLIC acid Yes [id number] 1mg Take 1 Tab Univers (FOLATE) 1 5-25 by mouth ity o f mg tablet 00:00: daily. [place] [facility] Blood-Gluco Yes daily. Univ ers se Meter 2-14 ity of (FREESTYLE 00:00: [place] LITE METER) 00 Medical Kit Branch Blood-Gluco Yes daily. Univ ers se Meter 2-14 ity of (FREESTYLE 00:00: [place] LITE METER) 00 Medical Kit Branch Blood-Gluco Yes daily. Univ ers se Meter 2-14 ity of (FREESTYLE 00:00: [place] LITE METER) Medical Kit Branch Blood-Gluco Yes daily. Univ [...] of (FREESTYLE 00:00: [place] LITE METER) 00 [facility] Blood-Gluco Yes daily. Univ ers se Meter 2-14 ity of (FREESTYLE 00:00: [place] LITE METER) 00 Medical [facility] Branch Blood-Gluco Yes daily. Univ ers se Meter 2-14 ity of (FREESTYLE 00:00: [place] LITE METER) [facility] Blood-Gluco Yes daily. Univ ers se Meter 2-14 ity of (FREESTYLE 00:00: [place] LITE METER) 00 Medical [facility] Branch Blood-Gluco Yes daily. Univ ers se Meter 2-14 ity of (FREESTYLE 00:00: [place] LITE METER) [facility] Blood-Gluco Yes daily. Univ ers se Meter 2-14 ity of (FREESTYLE 00:00: [place] LITE METER) [facility] glipiZIDE 2020- No 2.5mg Take 1 Tab Univers XL 2-14 04-08 by mouth 2 ity of (GLUCOTROL 00:00: 00:00 (two) [place] XL) 2.5 mg 00 :00 times Medical 24 hr daily. Branch tablet KCL Yes 20meq Take 1 Tab Univer s (KLOR-CON 1-04 by mouth ity of M20) 20 mEq 00:00: daily. [place] tablet 00 [facility] Yes 20meq Take 1 Tab Univer s (KLOR-CON 1-04 by mouth ity of M20) 20 mEq 00:00: daily. [place] tablet 00 [facility] Yes 20meq Take 1 Tab Univer s (KLOR-CON 1-04 by mouth ity of M20) 20 mEq 00:00: daily. [place] tablet 00 [facility] Yes 20meq Take 1 Tab Univer s (KLOR-CON 1-04 by mouth ity of M20) 20 mEq 00:00: daily. [place] tablet 00 [facility] Yes 20meq Take 1 Tab Univer s (KLOR-CON 1-04 by mouth ity of M20) 20 mEq 00:00: daily. [place] tablet 00 [facility] Yes 20meq Take 1 Tab Univer s (KLOR-CON 1-04 by mouth ity of M20) 20 mEq 00:00: daily. [place] tablet 00 [facility] Yes 20meq Take 1 Tab Univer s (KLOR-CON 1-04 by mouth ity of M20) 20 mEq 00:00: daily. [place] tablet 00 [facility] Yes 20meq Take 1 Tab Univer s (KLOR-CON 1-04 by mouth ity of M20) 20 mEq 00:00: daily. [place] tablet 00 [facility] Yes 20meq Take 1 Tab Univer s (KLOR-CON 1-04 by mouth ity of M20) 20 mEq 00:00: daily. [place] tablet 00 [facility] Yes 20meq Take 1 Tab Univer s (KLOR-CON 1-04 by mouth ity of M20) 20 mEq 00:00: daily. [place] tablet 00 [facility] Yes 20meq Take 1 Tab Univer s (KLOR-CON 1-04 by mouth ity of M20) 20 mEq 00:00: daily. [place] tablet 00 [facility] Yes 20meq Take 1 Tab Univer s (KLOR-CON 1-04 by mouth ity of M20) 20 mEq 00:00: daily. [place] tablet 00 [facility] Yes 20meq Take 1 Tab Univer s (KLOR-CON 1-04 by mouth ity of M20) 20 mEq 00:00: daily. [place] tablet 00 [facility] Yes 20meq Take 1 Tab Univer s (KLOR-CON 1-04 by mouth ity of M20) 20 mEq 00:00: daily. [place] tablet 00 [facility] Yes 20meq Take 1 Tab Univer s (KLOR-CON 1-04 by mouth ity of M20) 20 mEq 00:00: daily. [place] tablet 00 [facility] Yes 20meq Take 1 Tab Univer s (KLOR-CON 1-04 by mouth ity of M20) 20 mEq 00:00: daily. [place] tablet 00 [facility] Yes 20meq Take 1 Tab Univer s (KLOR-CON 1-04 by mouth ity of M20) 20 mEq 00:00: daily. [place] tablet 00 [facility] Yes 20meq Take 1 Tab Univer s (KLOR-CON 1-04 by mouth ity of M20) 20 mEq 00:00: daily. [place] tablet 00 [facility] Yes 20meq Take 1 Tab Univer s (KLOR-CON 1-04 by mouth ity of M20) 20 mEq 00:00: daily. [place] tablet 00 [facility] Yes 20meq Take 1 Tab Univer s (KLOR-CON 1-04 by mouth ity of M20) 20 mEq 00:00: daily. [place] tablet 00 [facility] Yes 20meq Take 1 Tab Univer s (KLOR-CON 1-04 by mouth ity of M20) 20 mEq 00:00: daily. [place] tablet 00 [facility] Yes 20meq Take 1 Tab Univer s (KLOR-CON 1-04 by mouth ity of M20) 20 mEq 00:00: daily. [place] tablet 00 [facility] Yes 20meq Take 1 Tab Univer s (KLOR-CON 1-04 by mouth ity of M20) 20 mEq 00:00: daily. [place] tablet 00 [facility] Yes 20meq Take 1 Tab Univer s (KLOR-CON 1-04 by mouth ity of M20) 20 mEq 00:00: daily. [place] tablet 00 [facility] Yes 20meq Take 1 Tab Univer s (KLOR-CON 1-04 by mouth ity of M20) 20 mEq 00:00: daily. [place] tablet 00 [facility] Yes 20meq Take 1 Tab Univer s (KLOR-CON 1-04 by mouth ity of M20) 20 mEq 00:00: daily. [place] tablet 00 [facility] Yes 20meq Take 1 Tab Univer s (KLOR-CON 1-04 by mouth ity of M20) 20 mEq 00:00: daily. [place] tablet 00 [facility] Yes 20meq Take 1 Tab Univer s (KLOR-CON 1-04 by mouth ity of M20) 20 mEq 00:00: daily. [place] tablet 00 [facility] KCL Yes 20meq Take 1 Tab Univer s (KLOR-CON 1-04 by mouth ity of M20) 20 mEq 00:00: daily. [place] tablet 00 [facility] KCL Yes 20meq Take 1 Tab Univer s (KLOR-CON 1-04 by mouth ity of M20) 20 mEq 00:00: daily. [place] tablet Medical [facility] furosemide 2009-11 Yes 40mg Take 40 mg [...] inhalation disk blood sugar 2009-11 Yes before [facility] ers diagnostic 2-16 meals. ity of (FREESTYLE [...] inhalation disk blood sugar 2009-11 Yes before [facility] ers diagnostic 2-16 meals. ity of (FREESTYLE 00:00: [place] LITE 00 Medical STRIPS) Branch strip furosemide 2009-11 Yes 40mg Take 40 mg U nivers (LASIX) 40 2-16 by mouth 2 ity of mg tablet 00:00: (two) [place] 00 times Medical daily. Branch aspirin 81 2009-11 Yes 81mg Take 81 mg U nivers mg tablet 2-16 by mouth 2 ity of 00:00: (two) [place] 00 times Medical daily. Branch fluticasone 2009-11 Yes 1{puff} Inhale 1 Univers -salmeterol 2-16 Puff ity of (ADVAIR 00:00: daily. [place] DISKUS) 00 Medical 250-50 Branch mcg/Dose inhalation disk blood sugar 2009-11 Yes before [facility] ers diagnostic 2-16 meals. ity of (FREESTYLE 00:00: [place] LITE 00 Medical STRIPS) Branch strip furosemide 2009-11 Yes 40mg Take 40 mg U nivers (LASIX) 40 2-16 by mouth 2 ity of mg tablet 00:00: (two) [place] 00 times Medical daily. Branch aspirin 81 2009-11 Yes 81mg Take 81 mg U nivers mg tablet 2-16 by mouth 2 ity of 00:00: (two) [place] 00 times Medical daily. Branch fluticasone 2009-11 Yes 1{puff} Inhale 1 [facility] -salmeterol 2-16 Puff ity of (ADVAIR 00:00: daily. [place] DISKUS) 00 Medical 250-50 Branch mcg/Dose inhalation disk blood sugar 2009-11 Yes before [facility] ers diagnostic 2-16 meals. ity of (FREESTYLE [...] inhalation disk blood sugar 2009-11 Yes before [facility] ers diagnostic 2-16 meals. ity of (FREESTYLE [...] inhalation disk blood sugar 2009-11 Yes before [facility] ers diagnostic 2-16 meals. ity of (FREESTYLE [...] inhalation disk blood sugar 2009-11 Yes before [facility] ers diagnostic 2-16 meals. ity of (FREESTYLE 00:00: [place] LITE 00 Medical STRIPS) Branch strip furosemide 2009-11 Yes 40mg Take 40 mg U nivers (LASIX) 40 2-16 by mouth 2 ity of mg tablet 00:00: (two) [place] 00 times Medical daily. Branch aspirin 81 2009-11 Yes 81mg Take 81 mg U nivers mg tablet 2-16 by mouth 2 ity of 00:00: (two) [place] 00 times Medical daily. Branch fluticasone 2009-11 Yes 1{puff} Inhale 1 [facility] -salmeterol 2-16 Puff ity of (ADVAIR 00:00: daily. [place] DISKUS) 00 Medical 250-50 Branch mcg/Dose inhalation disk blood sugar 2009-11 Yes before [facility] ers diagnostic 2-16 meals. ity of (FREESTYLE [...] inhalation disk blood sugar 2009-11 Yes before [facility] ers diagnostic 2-16 meals. ity of (FREESTYLE [...] inhalation disk blood sugar 2009-11 Yes before [facility] ers diagnostic 2-16 meals. ity of (FREESTYLE [...] inhalation disk blood sugar 2009-11 Yes before [facility] ers diagnostic 2-16 meals. ity of (FREESTYLE [...] inhalation disk blood sugar 2009-11 Yes before [facility] ers diagnostic 2-16 meals. ity of (FREESTYLE [...] inhalation disk blood sugar 2009-11 Yes before [facility] ers diagnostic 2-16 meals. ity of (FREESTYLE [...] inhalation disk blood sugar 2009-11 Yes before [facility] ers diagnostic 2-16 meals. ity of (FREESTYLE [...] inhalation disk blood sugar 2009-11 Yes before [facility] ers diagnostic 2-16 meals. ity of (FREESTYLE [...] inhalation disk blood sugar 2009-11 Yes before [facility] ers diagnostic 2-16 meals. ity of (FREESTYLE [...] inhalation disk blood sugar 2009-11 Yes before [facility] ers diagnostic 2-16 meals. ity of (FREESTYLE [...] inhalation disk blood sugar 2009-11 Yes before [facility] ers diagnostic 2-16 meals. ity of (FREESTYLE [...] inhalation disk blood sugar 2009-11 Yes before [facility] ers diagnostic 2-16 meals. ity of (FREESTYLE [...] inhalation disk blood sugar 2009-11 Yes before [facility] ers diagnostic 2-16 meals. ity of (FREESTYLE [...] inhalation disk blood sugar 2009-11 Yes before [facility] ers diagnostic 2-16 meals. ity of (FREESTYLE [...] inhalation disk blood sugar 2009-11 Yes before [facility] ers diagnostic 2-16 meals. ity of (FREESTYLE [...] inhalation disk blood sugar 2009-11 Yes before [facility] ers diagnostic 2-16 meals. ity of (FREESTYLE [...] inhalation disk blood sugar 2009-11 Yes before [facility] ers diagnostic 2-16 meals. ity of (FREESTYLE [...] inhalation disk blood sugar 2009-11 Yes before [facility] ers diagnostic 2-16 meals. ity of (FREESTYLE 00:00: [place] LITE 00 Medical STRIPS) Branch strip furosemide 2009-11 Yes 40mg Take 40 mg U nivers (LASIX) 40 2-16 by mouth 2 ity of mg tablet 00:00: (two) [place] 00 times Medical daily. Branch aspirin 81 2009-11 Yes 81mg Take 81 mg U nivers mg tablet 2-16 by mouth 2 ity of 00:00: (two) [place] 00 times Medical daily. Branch fluticasone 2009-11 Yes 1{puff} Inhale 1 Univers -salmeterol 2-16 Puff ity of (ADVAIR 00:00: daily. [place] DISKUS) 00 Medical 250-50 Branch mcg/Dose inhalation disk blood sugar 2009-11 Yes before [facility] ers diagnostic 2-16 meals. ity of (FREESTYLE 00:00: [place] LITE 00 Medical STRIPS) Branch strip ALBUTEROL 2009-11 2020- No 2{puff} Inhale 2 Univers SULFATE 2-16 04-08 Puffs as ity of (VENTOLIN 00:00: 00:00 [place]. [place] HFA INHALE) 00 :00 Medical Branch Breo Breo No 1{puff} QD Breo Ellipta [...] D3 1.25 MG 1.25 MG 1.25 MG (48490 UT) (60574 UT) (77003 UT) Metoprolol Metoprolol No Metoprolol Tartrate Tartrate [...] D3 1.25 MG 1.25 MG 1.25 MG (86977 UT) (20711 UT) (11467 UT) Atorvastati Atorvastati No Atorvastat n Calcium [...] D3 1.25 MG 1.25 MG 1.25 MG (55468 UT) (41867 UT) (47095 UT) Atorvastati Atorvastati No Atorvastat n Calcium [...] D3 1.25 MG 1.25 MG 1.25 MG (00706 UT) (44612 UT) (74408 UT) Atorvastati Atorvastati No Atorvastat n Calcium [...] D3 1.25 MG 1.25 MG 1.25 MG (24202 UT) (92190 UT) (37605 UT) ProAir HFA ProAir HFA No 2{puffs [...] BID Xifaxan MG MG t} 550 MG Immunizations Ordered Filled Immunization Date Status Comments Sourc e Immunization Name Name Pneumovax (PPSV23) Pneumovax (PPSV23) 2022-03-25 Completed [facility] - 15:04:00 [facility] Pneumovax (PPSV23) Pneumovax (PPSV23) 2022-03-25 Completed [facility] - 15:04:00 [facility] Pneumovax (PPSV23) Pneumovax (PPSV23) 2022-03-25 Completed [facility] - 15:04:00 [facility] Pneumovax (PPSV23) Pneumovax (PPSV23) 2022-03-25 Completed [facility] - 15:04:00 [facility] Pneumovax (PPSV23) Pneumovax (PPSV23) 2022-03-25 Completed [facility] - 15:04:00 [facility] Pneumovax (PPSV23) Pneumovax (PPSV23) 2022-03-25 Completed [facility] - 15:04:00 [facility] Pneumovax (PPSV23) Pneumovax (PPSV23) 2022-03-25 Completed [facility] - 15:04:00 [facility] Pneumovax (PPSV23) Pneumovax (PPSV23) 2022-03-25 Completed [facility] - 15:04:00 [facility] Pneumovax (PPSV23) Pneumovax (PPSV23) 2022-03-25 Completed [facility] - 15:04:00 [facility] Pneumovax (PPSV23) Pneumovax (PPSV23) 2022-03-25 [facility]00 [facility] Pneumovax (PPSV23) Pneumovax (PPSV23) 2022-03-25 [facility]pleted [facility] 15:04:00 [facility] FluAD FluAD 2021-10-15 Completed [facility] - 13:16:00 [facility] FluAD FluAD 2021-10-15 Completed [facility] 13:16:00 [facility] FluAD FluAD 2021-10-15 Completed [facility] 13:16:00 [facility] FluAD FluAD 2021-10-15 Completed [facility] - 13:16:00 [facility] FluAD FluAD 2021-10-15 Completed [facility] 13:16:00 [facility] FluAD FluAD 2021-10-15 Completed [facility] 13:16:00 [facility] FluAD FluAD 2021-10-15 Completed [facility] 13:16:00 [facility] FluAD FluAD 2021-10-15 Completed [facility] 13:16:00 [facility] FluAD FluAD 2021-10-15 Completed [facility] 13:16:00 [facility] FluAD FluAD 2021-10-15 Completed [facility] 13:16:00 [facility] FluAD FluAD 2021-10-15 Completed [facility] 13:16:00 [facility] FluAD FluAD 2021-10-15 Completed [facility] 13:16:00 [facility] FluAD FluAD 2021-10-15 Completed [facility] 13:16:00 [facility] FluAD FluAD 2020-08-05 Completed [facility] 16:12:00 [facility] Prevnar 13 (PCV13) Prevnar 13 (PCV13) 2020-08-05 Completed [facility] 16:12:00 [facility] FluAD FluAD 2020-08-05 Completed [facility] 16:12:00 [facility] Prevnar 13 (PCV13) Prevnar 13 (PCV13) 2020-08-05 Completed [facility] 16:12:00 [facility] FluAD FluAD 2020-08-05 Completed [facility] 16:12:00 [facility] Prevnar 13 (PCV13) Prevnar 13 (PCV13) 2020-08-05 Completed [facility] 16:12:00 [facility] FluAD FluAD 2020-08-05 Completed [facility] 16:12:00 [facility] Prevnar 13 (PCV13) Prevnar 13 (PCV13) 2020-08-05 [facility]pleted [facility] 16:12:00 [facility] FluAD FluAD 2020-08-05 Completed [facility] 16:12:00 [facility] Prevnar 13 (PCV13) Prevnar 13 (PCV13) 2020-08-05 Completed [facility] 16:12:00 [facility] FluAD FluAD 2020-08-05 Completed [facility] 16:12:00 [facility] Prevnar 13 (PCV13) Prevnar 13 (PCV13) 2020-08-05 Completed [facility] 16:12:00 [facility] FluAD FluAD 2020-08-05 Completed [facility] 16:12:00 [facility] Prevnar 13 (PCV13) Prevnar 13 (PCV13) 2020-08-05 Completed [facility] 16:12:00 [facility] FluAD FluAD 2020-08-05 Completed [facility] 16:12:00 [facility] Prevnar 13 (PCV13) Prevnar 13 (PCV13) 2020-08-05 Completed [facility] 16:12:00 [facility] FluAD FluAD 2020-08-05 Completed [facility] 16:12:00 [facility] Prevnar 13 (PCV13) Prevnar 13 (PCV13) 2020-08-05 Completed [facility] 16:12:00 [facility] FluAD FluAD 2020-08-05 Completed [facility] 16:12:00 [facility] Prevnar 13 (PCV13) Prevnar 13 (PCV13) 2020-08-05 Completed [facility] 16:12:00 [facility] FluAD FluAD 2020-08-05 Completed [facility] 16:12:00 [facility] Prevnar 13 (PCV13) Prevnar 13 (PCV13) 2020-08-05 Completed [facility] 16:12:00 [facility] FluAD FluAD 2020-08-05 Completed [facility] 16:12:00 [facility] Prevnar 13 (PCV13) Prevnar 13 (PCV13) 2020-08-05 Completed [facility] 16:12:00 [facility] FluAD FluAD 2020-08-05 Completed [facility] 16:12:00 [facility] Prevnar 13 (PCV13) Prevnar 13 (PCV13) 2020-08-05 Completed [facility] 16:12:00 [facility] FluAD FluAD 2020-08-05 Completed [facility] 16:12:00 [facility] Prevnar 13 (PCV13) Prevnar 13 (PCV13) 2020-08-05 Completed [facility] 16:12:00 [facility] FluAD FluAD 2020-08-05 Completed [facility] 16:12:00 [facility] Prevnar 13 (PCV13) Prevnar 13 (PCV13) 2020-08-05 Completed [facility] 16:12:00 [facility] FluAD FluAD 2020-08-05 Completed [facility] 16:12:00 [facility] Prevnar 13 (PCV13) Prevnar 13 (PCV13) 2020-08-05 Completed [facility] 16:12:00 [facility] FluAD FluAD 2020-08-05 Completed [facility] 16:12:00 [facility] Prevnar 13 (PCV13) Prevnar 13 (PCV13) 2020-08-05 Completed [facility] 16:12:00 [facility] FluAD FluAD 2020-08-05 Completed [facility] 16:12:00 [facility] Prevnar 13 (PCV13) Prevnar 13 (PCV13) 2020-08-05 Completed [facility] 16:12:00 [facility] FluAD FluAD 2020-08-05 Completed [facility] 16:12:00 [facility] Prevnar 13 (PCV13) Prevnar 13 (PCV13) 2020-08-05 Completed [facility] 16:12:00 [facility] Influenza High Dose 2020-02-22 Completed [facility] 00:00:00 [facility] Influenza High Dose 2020-02-22 Completed [facility] 00:00:00 [facility] Influenza High Dose 2020-02-22 Completed [facility] 00:00:00 [facility] Influenza High Dose 2020-02-22 Completed [facility] 00:00:00 [facility] Influenza High Dose 2020-02-22 Completed [facility] 00:00:00 [facility] Influenza High Dose 2020-02-22 Completed [facility] 00:00:00 [facility] Influenza High Dose 2020-02-22 Completed [facility] 00:00:00 [facility] Influenza High Dose 2020-02-22 Completed [facility] 00:00:00 [facility] Influenza High Dose 2020-02-22 Completed [facility] 00:00:00 [facility] Influenza High Dose 2020-02-22 Completed [facility] 00:00:00 [facility] Influenza High Dose 2020-02-22 Completed [facility] 00:00:00 [facility] Influenza High Dose 2020-02-22 Completed [facility] 00:00:00 [facility] Influenza High Dose 2020-02-22 Completed [facility] 00:00:00 [facility] Influenza High Dose 2020-02-22 Completed [facility] 00:00:00 [facility] Influenza High Dose 2020-02-22 Completed [facility] 00:00:00 [facility] Influenza High Dose 2020-02-22 Completed [facility] 00:00:00 [facility] Influenza High Dose 2020-02-22 Completed [facility] 00:00:00 [facility] Influenza High Dose 2020-02-22 Completed [facility] 00:00:00 [facility] Influenza High Dose 2020-02-22 Completed [facility] 00:00:00 [facility] Influenza High Dose 2020-02-22 Completed [facility] 00:00:00 [facility] Influenza High Dose 2020-02-22 Completed [facility] 00:00:00 [facility] Influenza High Dose 2020-02-22 Completed [facility] 00:00:00 [facility] Influenza High Dose 2020-02-22 Completed [facility] 00:00:00 [facility] Influenza High Dose 2020-02-22 Completed [facility] 00:00:00 [facility] Influenza High Dose 2020-02-22 Completed [facility] 00:00:00 [facility] Influenza High Dose 2020-02-22 Completed [facility] 00:00:00 [facility] Influenza High Dose 2020-02-22 Completed [facility] 00:00:00 [facility] Influenza High Dose 2020-02-22 Completed [facility] 00:00:00 [facility] Influenza High Dose 2020-02-22 Completed [facility] 00:00:00 [facility] Influenza High Dose 2020-02-22 Completed [facility] 00:00:00 [facility] Vital Signs Vital Name Observation Time Observation Value Comments Source height 2022-09-23 11:20:00 65.5 [in_i] [facility] weight 2022-09-23 11:20:00 192.6 [lb_av] [facility] temperature 2022-09-23 11:20:00 97.4 [degF] [facility] bmi 2022-09-23 11:20:00 31.56 kg/m2 [facility] oximetry 2022-09-23 11:20:00 98 % [facility] respiratory rate 2022-09-23 11:20:00 17 /min [facility] blood pressure 2022-09-23 11:20:00 135 mm[Hg] [facility] blood pressure 2022-09-23 11:20:00 74 mm[Hg] [facility] diastolic [facility] height 2022-06-24 11:00:00 65.5 [in_i] [facility] weight 2022-06-24 11:00:00 185 [lb_av] [facility] temperature 2022-06-24 11:00:00 97.6 [degF] [facility] bmi 2022-06-24 11:00:00 30.31 kg/m2 [facility] oximetry 2022-06-24 11:00:00 100 % [facility] respiratory rate 2022-06-24 11:00:00 16 /min [facility] blood pressure 2022-06-24 11:00:00 132 mm[Hg] [facility] - systolic [facility] blood pressure 2022-06-24 11:00:00 74 mm[Hg] [facility] diastolic [facility] height 2022-05-21 15:00:00 65.5 [in_i] [facility] 2022-05-21 15:00:00 186.2 [lb_av] [facility] temperature 2022-05-21 15:00:00 97.9 [degF] [facility] bmi 2022-05-21 15:00:00 30.51 kg/m2 [facility] oximetry 2022-05-21 15:00:00 100 % [facility] respiratory rate 2022-05-21 15:00:00 18 /min [facility] blood pressure 2022-05-21 15:00:00 133 mm[Hg] [facility] - systolic [facility] blood pressure 2022-05-21 15:00:00 62 mm[Hg] [facility] diastolic [facility] height 2022-03-25 13:40:00 65.5 [in_i] [facility] weight 2022-03-25 13:40:00 200.4 [lb_av] [facility] temperature 2022-03-25 13:40:00 98.1 [degF] [facility] bmi 2022-03-25 13:40:00 32.84 kg/m2 [facility] oximetry 2022-03-25 13:40:00 100 % [facility] respiratory rate 2022-03-25 13:40:00 18 /min [facility] blood pressure 2022-03-25 13:40:00 132 mm[Hg] [facility] - systolic [facility] blood pressure 2022-03-25 13:40:00 72 mm[Hg] [facility] - diastolic [facility] height 2022-03-25 14:00:00 65.5 [in_i] [facility] weight 2022-03-25 14:00:00 200.4 [lb_av] [facility] temperature 2022-03-25 14:00:00 98.1 [degF] [facility] 2022-03-25 14:00:00 32.84 kg/m2 [facility] oximetry 2022-03-25 14:00:00 100 % [facility] respiratory rate 2022-03-25 14:00:00 18 /min [facility] blood pressure 2022-03-25 14:00:00 132 mm[Hg] [facility] - systolic [facility] blood pressure 2022-03-25 14:00:00 72 mm[Hg] [facility] - diastolic [facility] height 2021-11-05 13:20:00 65.5 [in_i] [facility] weight 2021-11-05 13:20:00 201.6 [lb_av] [facility] temperature 2021-11-05 13:20:00 97.2 [degF] [facility] bmi 2021-11-05 13:20:00 33.03 kg/m2 [facility] oximetry 2021-11-05 13:20:00 100 % [facility] respiratory rate 2021-11-05 13:20:00 17 /min [facility] blood pressure 2021-11-05 13:20:00 135 mm[Hg] Common [facility] systolic [facility] blood pressure 2021-11-05 13:20:00 72 mm[Hg] [facility] diastolic [facility] height 2021-08-13 14:00:00 65.5 [in_i] [facility] weight 2021-08-13 14:00:00 213.4 [lb_av] [facility] temperature 2021-08-13 14:00:00 97.2 [degF] [facility] bmi 2021-08-13 14:00:00 34.97 kg/m2 [facility] oximetry 2021-08-13 14:00:00 99 % [facility] respiratory rate 2021-08-13 14:00:00 17 /min [facility] blood pressure 2021-08-13 14:00:00 132 mm[Hg] [facility] systolic [facility] blood pressure 2021-08-13 14:00:00 70 mm[Hg] [facility] diastolic [facility] Systolic blood 2021-05-27 15:32:00 146 mm[Hg] [facility] pressure [facility] Diastolic blood 2021-05-27 15:32:00 50 mm[Hg] [facility] pressure [facility] Heart rate 2021-05-27 15:32:00 62 /min [facility] Oxygen saturation in 2021-05-27 15:32:00 98 /min [facility] Pulse oximetry Branch Body height 2021-05-27 14:28:00 165.1 cm [facility] Body weight 2021-05-27 14:28:00 99.791 kg [facility] BMI 2021-05-27 14:28:00 36.61 kg/m2 [facility] Systolic blood 2021-05-02 15:04:00 139 mm[Hg] [facility] pressure [facility] Diastolic blood 2021-05-02 15:04:00 74 mm[Hg] [facility] pressure [facility] Heart rate 2021-05-02 15:04:00 57 /min [facility] Body temperature 2021-05-02 15:04:00 36.5 Jami [facility] Respiratory rate 2021-05-02 15:04:00 16 /min [facility] Body height 2021-05-02 15:04:00 165.1 cm [facility] Body weight 2021-05-02 15:04:00 91.173 kg [facility] BMI 2021-05-02 15:04:00 33.45 kg/m2 [facility] Oxygen saturation in 2021-05-02 15:04:00 100 /min [facility]terial blood by [facility] Pulse oximetry Branch Systolic blood 2021-03-28 15:35:00 165 mm[Hg] [facility] pressure [facility] Diastolic blood 2021-03-28 15:35:00 58 mm[Hg] [facility] pressure [facility] Heart rate 2021-03-28 15:35:00 56 /min [facility] Body temperature 2021-03-28 15:35:00 36.33 Jami [facility] Body height 2021-03-28 15:35:00 165.1 cm [facility] Body weight 2021-03-28 15:35:00 96.616 kg [facility] BMI 2021-03-28 15:35:00 35.45 kg/m2 [facility] Systolic blood 2021-01-29 16:57:00 142 mm[Hg] [facility] pressure [facility] Diastolic blood 2021-01-29 16:57:00 62 mm[Hg] [facility] Heart rate 2021-01-29 16:57:00 55 /min [facility] Body temperature 2021-01-29 16:57:00 36.44 Jami [facility] Respiratory rate 2021-01-29 16:57:00 18 /min [facility] Body height 2021-01-29 16:57:00 165.1 cm [facility] Body weight 2021-01-29 16:57:00 96.616 kg [facility] BMI 2021-01-29 16:57:00 35.45 kg/m2 [facility] Oxygen saturation in 2021-01-29 16:57:00 99 /min [facility]ial blood by [place] [employer] [facility] Pulse oximetry Branch Systolic blood 2021-01-29 16:57:00 142 mm[Hg] [facility] pressure [facility] Diastolic blood 2021-01-29 16:57:00 62 mm[Hg] [facility] pressure [facility] Heart rate 2021-01-29 16:57:00 55 /min [facility] Body temperature 2021-01-29 16:57:00 36.44 Jami [facility] Respiratory rate 2021-01-29 16:57:00 18 /min [facility] Body height 2021-01-29 16:57:00 165.1 cm [facility] Body weight 2021-01-29 16:57:00 96.616 kg [facility] BMI 2021-01-29 16:57:00 35.45 kg/m2 [facility] Oxygen saturation in 2021-01-29 16:57:00 99 /min [facility] blood by [place] [employer] [facility] Pulse oximetry Branch Systolic blood 2021-01-03 20:08:00 179 mm[Hg] [facility] Diastolic blood 2021-01-03 20:08:00 60 mm[Hg] [facility] pressure [facility] Heart rate 2021-01-03 20:08:00 67 /min [facility] Oxygen saturation in 2021-01-03 20:08:00 92 /min [facility] Arterial blood by [facility] janett Pulse oximetry Branch Body weight 2021-01-03 19:10:00 88.905 kg [facility] BMI 2021-01-03 19:10:00 32.62 kg/m2 [facility] Systolic blood 2021-01-03 20:08:00 179 mm[Hg] [facility] Diastolic blood 2021-01-03 20:08:00 60 mm[Hg] [facility] Heart rate 2021-01-03 20:08:00 67 /min [facility] Oxygen saturation in 2021-01-03 20:08:00 92 /min [facility] Arterial blood by [facility] Pulse oximetry Branch Body weight 2021-01-03 19:10:00 88.905 kg [facility] BMI 2021-01-03 19:10:00 32.62 kg/m2 [facility] Systolic blood 2020-11-19 19:10:00 217 mm[Hg] [facility] Diastolic blood 2020-11-19 19:10:00 82 mm[Hg] [facility] pressure [facility] Heart rate 2020-11-19 19:10:00 56 /min [facility] Respiratory rate 2020-11-19 19:10:00 16 /min [facility] Body weight 2020-11-19 19:10:00 84.823 kg [facility] BMI 2020-11-19 19:10:00 31.12 kg/m2 [facility] Oxygen saturation in 2020-11-19 19:10:00 98 /min [facility] Arterial blood by [facility] Pulse oximetry Branch Systolic blood 2020-11-19 19:10:00 217 mm[Hg] [facility] pressure [facility] Diastolic blood 2020-11-19 19:10:00 82 mm[Hg] [facility] pressure [facility] Heart rate 2020-11-19 19:10:00 56 /min [facility] Respiratory rate 2020-11-19 19:10:00 16 /min [facility] Body weight 2020-11-19 19:10:00 84.823 kg [facility] BMI 2020-11-19 19:10:00 31.12 kg/m2 [facility] Oxygen saturation in 2020-11-19 19:10:00 98 /min [facility] [place] [employer] [facility] Pulse oximetry [facility] Systolic blood 2020-10-22 20:15:00 193 mm[Hg] [facility] Diastolic blood 2020-10-22 20:15:00 86 mm[Hg] [facility] pressure [facility] Heart rate 2020-10-22 20:15:00 63 /min [facility] Respiratory rate 2020-10-22 20:15:00 18 /min [facility] Oxygen saturation in 2020-10-22 20:15:00 96 /min [facility] Arterial blood by [facility] janett Pulse oximetry Branch Body temperature 2020-10-22 19:26:00 36.22 Jami [facility] Body height 2020-10-22 19:26:00 165.1 cm [facility] Body weight 2020-10-22 19:26:00 84.823 kg [facility] BMI 2020-10-22 19:26:00 31.12 kg/m2 [facility] Systolic blood 2020-10-22 20:15:00 193 mm[Hg] [facility] Diastolic blood 2020-10-22 20:15:00 86 mm[Hg] [facility] Heart rate 2020-10-22 20:15:00 63 /min [facility] Respiratory rate 2020-10-22 20:15:00 18 /min [facility] Oxygen saturation in 2020-10-22 20:15:00 96 /min [facility]terial blood by [facility] janett Pulse oximetry Branch Body temperature 2020-10-22 19:26:00 36.22 Jami [facility] Body height 2020-10-22 19:26:00 165.1 cm [facility] Body weight 2020-10-22 19:26:00 84.823 kg [facility] BMI 2020-10-22 19:26:00 31.12 kg/m2 [facility] Systolic blood 2020-02-25 15:00:00 174 mm[Hg] [facility] pressure [facility] Diastolic blood 2020-02-25 15:00:00 61 mm[Hg] [facility] of pressure [facility] Heart rate 2020-02-25 15:00:00 68 /min [facility] Respiratory rate 2020-02-25 15:00:00 19 /min [facility] Oxygen saturation in 2020-02-25 15:00:00 99 /min [facility] [place] [facility] Pulse oximetry [facility] Body temperature 2020-02-25 11:26:00 37.22 Jami [facility] Body height 2020-02-25 11:26:00 165.1 cm [facility] Body weight 2020-02-25 11:26:00 83.462 kg [facility] BMI 2020-02-25 11:26:00 30.62 kg/m2 [facility] Systolic blood 2020-02-22 12:42:00 151 mm[Hg] [facility] Diastolic blood 2020-02-22 12:42:00 62 mm[Hg] [facility] of pressure [facility] Heart rate 2020-02-22 12:42:00 56 /min [facility] Body temperature 2020-02-22 12:42:00 36.5 Jami [facility] Respiratory rate 2020-02-22 12:42:00 18 /min [facility] Oxygen saturation in 2020-02-22 12:42:00 96 /min [facility] [place] [facility] Pulse oximetry [facility] Body weight 2020-02-22 00:30:00 83.462 kg [facility] BMI 2020-02-22 00:30:00 30.62 kg/m2 [facility] Body height 2020-02-21 00:24:00 165.1 cm [facility] Systolic blood 2022-12-11 18:27:00 164 mm[Hg] Method [facility] pressure Diastolic blood 2022-12-11 18:27:00 55 mm[Hg] [facility] pressure Heart rate 2022-12-11 18:27:00 53 /min [facility] Body temperature 2022-12-11 18:27:00 35.83 Jami [facility] Respiratory rate 2022-12-11 18:27:00 18 /min [facility] Body height 2022-12-11 18:27:00 165.1 cm [facility] Body weight 2022-12-11 18:27:00 87.635 kg [facility] BMI 2022-12-11 18:27:00 32.15 kg/m2 [facility] Oxygen saturation in 2022-12-11 18:27:00 99 /min [facility] Arterial blood by Pulse oximetry Procedures Procedure Date / Time Performing Clinician Source Performed MRI ABDOMEN W WO CONTRAST 2022-12-11 17:40:00 [facility] TTE COMPLETE, WO 2022-12-11 16:[facility] W AGITATED SALINE ([id number]) BASIC METABOLIC PANEL 2022-12-11 14:20:00 [facility] HEPATIC FUNCTION PANEL 2022-12-11 14:20:00 [facility] PROTHROMBIN TIME WITH INR 2022-12-11 14:20:00 [facility] PARTIAL THROMBOPLASTIN 2022-12-11 14:20:00 [facility] TIME (PTT) CBC WITH PLATELET AND 2022-12-11 14:20:00 [facility] DIFFERENTIAL ALPHA FETOPROTEIN 2022-12-11 14:20:00 [facility] MAGNESIUM LEVEL 2022-12-11 14:20:00 [facility] PHOSPHORUS LEVEL 2022-12-11 14:20:00 [facility] [facility] ESTIMATED GFR 2022-12-11 14:20:00 [facility] TTE COMPLETE, WO 2022-05-15 19:40:00 [facility] CONTRAST, W AGITATED SALINE ([id number]) MRI ABDOMEN W WO CONTRAST 2022-05-15 15:30:00 [facility] CBC WITH PLATELET AND 2022-05-15 14:11:00 [facility] DIFFERENTIAL ALPHA FETOPROTEIN 2022-05-15 14:11:00 [facility] MAGNESIUM LEVEL 2022-05-15 14:11:00 [facility] PHOSPHORUS LEVEL 2022-05-15 14:11:00 [facility] ESTIMATED GFR 2022-05-15 14:11:00 [facility] BASIC METABOLIC PANEL 2022-05-15 14:11:00 [facility] HEPATIC FUNCTION PANEL 2022-05-15 14:11:00 [facility] PROTHROMBIN TIME WITH INR 2022-05-15 14:11:00 [facility] PARTIAL THROMBOPLASTIN 2022-05-15 14:11:00 [facility] TIME (PTT) IR 2021-05-02 15:09:28 [facility]ES[facility]/PERITONECENT C Medica l Branch ESIS WITH IMAGING IR 2021-03-28 15:29:30 [facility] PARACENTESIS/PERITONECENT C Medica l Branch ESIS WITH IMAGING ASSIGNMENT OF BENEFITS 2021-03-28 13:44:31 Doctor Unassigned, [facility] PHYSICIAN ORDERS 2021-03-21 05:01:00 Doctor Unassigned, [facility] [id number] 2021-02-18 00:00:00 WEAKI [facility] [id number] 2021-02-15 00:00:00 UGBST [facility] [id number] 2021-02-15 00:00:00 UGBST [facility] IR 2021-01-29 16:42:00 [facility]ENTES[facility]/PERITONECENT C Medica l Branch ESIS WITH IMAGING ASSIGNMENT OF BENEFITS 2021-01-29 15:10:15 [facility], [facility] IR 2021-01-03 19:17:21 Catracho Thornton [facility] PARACENTESIS/PERITONECENT C Medica l Branch ESIS WITH IMAGING ASSIGNMENT OF BENEFITS 2021-01-03 17:46:32 Doctor Unassigned, [facility] [place] [facility] PHYSICIAN ORDERS 2020-12-25 06:01:00 Doctor Unassigned, [facility] IR 2020-11-19 20:14:13 [facility] PARACENTESIS/PERITONECENT C Medica l Branch ESIS WITH IMAGING IR 2020-10-22 20:39:51 Lachelle wisam [facility] PARACENTESIS/PERITONECENT C Medica l Branch ESIS WITH IMAGING FERRITIN SERUM 2020-10-02 15:25:00 Lachelle wisam [facility] IRON 2020-10-02 15:25:00 [facility] TOTAL IRON BINDING 2020-10-02 15:25:00 Catracho Thornton [facility] HEPATIC FUNCTION PANEL 2020-10-02 15:25:00 Catracho Thornton [facility] ([id number]) (ALB,T.PRO,BILI Medical Branch T,BU/BC,ALT,AST,ALK PHOS) CBC WITH DIFF 2020-10-02 15:25:00 Catracho Thornton [facility] PROTHROMBIN TIME / INR 2020-10-02 15:25:00 Catracho Thornton [facility] ALPHA FETOPROTEIN 2020-10-02 15:25:00 Catracho Thornton [facility] [place] HEPATITIS B SURFACE 2020-10-02 15:25:00 Lachelle wisam [facility] Branch HEPATITIS B SURFACE 2020-10-02 15:25:00 Charafeddine, Nizar [facility] ANTIGEN [facility] HCV ANTIBODY 2020-10-02 15:25:00 Lachelle wisam [facility] HBC ANTIBODY (IGM & IGG) 2020-10-02 15:25:00 Catracho Thornton [facility] HAV ANTIBODY (IGG AND 2020-10-02 15:25:00 Catracho Thornton [facility] IGM) [facility] PHYSICIAN ORDERS 2020-10-02 06:01:00 Doctor Unassigned, [facility] AUTHORIZATION FOR RELEASE 2020-03-21 05:01:00 Doctor Unassigned, [facility] Name [facility] CT HEAD WO CONTRAST 2020-02-25 13:41:27 Amber Nunez [facility] PROTHROMBIN TIME / INR 2020-02-25 12:44:00 Mavis Hernandez [facility] ACTIVATED PARTIAL 2020-02-25 12:44:00 Mavis Hernandez [facility]ly [facility] URINALYSIS 2020-02-25 12:25:00 Leonides Edwards [facility] ADC / LCC - DRUG SCREEN 2020-02-25 12:25:00 Leonides Edwards [facility] AMMONIA, PLASMA 2020-02-25 12:14:00 Leonides Edwards [facility] TROPONIN I 2020-02-25 11:46:00 Mavis Hernandez [facility] SALICYLATE 2020-02-25 11:46:00 Leonides Edwards [facility] LIPASE 2020-02-25 11:40:00 Leonides Edwards [facility] HEPATIC FUNCTION PANEL 2020-02-25 11:40:00 Leonides Edwards U [facility] ([id number]) ([facility] T,BU/BC,ALT,AST,ALK PHOS) BASIC METABOLIC PANEL 2020-02-25 11:40:00 Leonides Edwards [facility] (NA, K, CL, CO2, GLUCOSE, Medica l Branch BUN, CREATININE, CA) CBC WITH DIFFERENTIAL 2020-02-25 11:40:00 Leonides Edwards Un [facility] EKG-12 LEAD 2020-02-25 11:30:34 Leonides Edwards [facility] AMMONIA, PLASMA 2020-02-22 10:18:00 Fausto Zuñiga [facility] BASIC METABOLIC PANEL 2020-02-22 10:18:00 Fausto Zuñiga [facility] (NA, K, CL, CO2, GLUCOSE, Medica l Branch BUN, CREATININE, CA) POCT GLUCOSE (AUTOMATED) 2020-02-22 01:06:00 Fausto Zuñiga [facility] POCT GLUCOSE (AUTOMATED) 2020-02-21 16:35:00 Fausto Zuñiga [facility] AMMONIA, PLASMA 2020-02-21 14:26:00 Fausto Zuñiga [facility] POCT GLUCOSE (AUTOMATED) 2020-02-21 12:35:00 Fausto Zuñiga [facility] BASIC METABOLIC PANEL 2020-02-21 09:00:00 Geno Montenegro [facility] (NA, K, CL, CO2, GLUCOSE, Medica l Branch BUN, CREATININE, CA) CBC WITH DIFFERENTIAL 2020-02-21 09:00:00 Geno Montenegro Un [facility] POCT GLUCOSE (AUTOMATED) 2020-02-21 01:38:00 Fausto Zuñiga [facility] CORONAVIRUS COVID-19 2020-02-20 23:07:00 Hudson Santamaria [facility] EKG-12 LEAD 2020-02-20 22:28:58 Hudson Santamaria [facility] XR CHEST 2 VW 2020-02-20 22:20:53 Hudson Santamaria [facility] CT HEAD WO CONTRAST 2020-02-20 22:18:00 Hudson Santamaria [facility] NOTICE OF PRIVACY 2020-02-20 22:13:06 Doctor Unassigned, [facility] PRACTICES [facility] LIPASE 2020-02-20 22:05:00 Hudson Santamaria [facility] MAGNESIUM 2020-02-20 22:05:00 Geno Montenegro [facility] AMMONIA, PLASMA 2020-02-20 22:05:00 Hudson Santamaria [facility] TROPONIN I 2020-02-20 22:05:00 Hudson Santamaria [facility] COMP. METABOLIC PANEL 2020-02-20 22:05:00 Hudson Santamaria [facility] ([id number]) [facility] LIPID PANEL (87265)(TOTAL 2020-02-20 22:05:00 Geno Montenegro [facility] TRIGLYCERIDES, HDL) CBC WITH DIFFERENTIAL 2020-02-20 22:05:00 Hudson Santamaria [facility] GLYCOSYLATED HEMOGLOBIN 2020-02-20 22:05:00 Geno Montenegro [facility] (A1C) [facility] URINALYSIS 2020-02-20 22:05:00 Hudson Santamaria [facility] EKG-12 LEAD 2020-02-20 21:52:17 Hudson Santamaria [facility] Plan of Care Planned Activity Planned Date Details Comments Source Future Scheduled 2023-05-15 [facility] Test 11:51:09 malignant neoplasm of colon (procedure) [code = 849977235] Future Scheduled 2023-05-15 [facility] Test 11:51:09 malignant neoplasm of colon (procedure) [code = 756272712] Future Scheduled 2023-05-15 [facility] Test 11:51:09 malignant neoplasm of colon (procedure) [code = 362047409] Future Scheduled 2023-05-15 DIABETES: RETINAL [facility] 11:51:09 EYE EXAM [code = DIABETES: RETINAL EYE EXAM] Future Scheduled 2023-05-15 DIABETIC FOOT EXAM [facility] Test 11:51:09 [code = DIABETIC FOOT EXAM] Future Scheduled 2023-05-15 BREAST CANCER [facility] Test 11:51:09 SCREENING [code = BREAST CANCER SCREENING] Future Scheduled 2023-05-15 [facility] Test 11:51:09 malignant neoplasm of colon (procedure) [code = 669659998] Future Scheduled 2023-05-15 [facility] Test 11:51:09 malignant neoplasm of colon (procedure) [code = 510966529] Future Scheduled 2023-05-15 SHINGLES VACCINES [facility] Test 11:51:09 (1 of 2) [code = SHINGLES VACCINES (1 of 2)] Future Scheduled 2023-05-15 [facility]IS [facility] 11:51:09 VACCINES (1 of 3 - Risk 3-dose series) [code = HEPATITIS B VACCINES (1 of 3 - Risk 3-dose series)] Future Scheduled 2023-05-15 COVID-19 VACCINE (3 [facility] 11:51:09 - Moderna series) [code = COVID-19 VACCINE (3 - Moderna series)] Future Scheduled 2023-05-15 INFLUENZA VACCINE Method [facility] Test 11:51:09 [code = INFLUENZA VACCINE] Encounters Start End Encounter Admission Attending Care Care Encounter Source Date/Time Date/Time Type Type Clinicians Facility Department ID 2023-05-12 Outpatient Ledesma, [facility] Common 07:33:00 Jacek [id number] [facility] 2022-09-19 Outpatient Ledesma, [facility] Common 10:51:03 Jacek [id number] [facility] 2022-06-23 Outpatient Ledesma, [facility] Common 10:57:01 Jacek [facility] 2022-06-05 Outpatient Ledesma, [facility] Common 11:06:02 Jacek [facility] 2022-05-21 Outpatient Ledesma, [facility] Common 13:20:02 Jacek [facility] 2021-12-11 Outpatient Ledesma, [facility] Common 13:53:57 Jacek [id number] [facility] 2021-12-11 Outpatient Ledesma, [facility] Common 13:09:15 Jacek [id number] [facility] 2021-12-11 Outpatient Ledesma, [facility] Common 13:08:13 Jacek [id number] [facility] 2021-12-11 Outpatient Ledesma, [facility] Common 12:48:42 Jacek [id number] [facility] 2021-12-11 [facility] 12:47:29 Jacek [id number] [facility] 2021-12-11 Outpatient [facility], [facility] Common 12:38:39 Jacek [id number] [facility] 2021-12-11 Outpatient Ledesma, [facility] Common 12:38:12 Jacek [id number] [facility] 2021-02-15 Inpatient HCAWU H[facility] [id number] [facility] 12:37:31 89 [facility] 2023-04-08 2023-04-08 Orders Jerry, 1.2.840.1 [id number] Methodi 00:00:00 00:00:00 Only Rufino [address]150.1.[address] 3.430.2.7 Hospit a .3.877659 l .8 2023-04-08 2023-04-08 [facility] [id number] [place] 00:00:00 00:00:00 CRI[address]ER [address] 2023-03-06 2023-03-06 Telephone Manny, 1.2.840.8 [id number] Methodi 00:00:00 00:00:[address] 3.430.2.7 Hospit a .3.293020 l .8 2022-12-11 2022-12-11 [facility] [place], 1.2.840.1 [id number] 2 [id number] Methodi 10:27:30 23:59:00 Encounter Nabeel 43852.1.[address] 3.430.2.7 Hospit a .3.854594 l .8 2022-12-11 2022-12-11 Office Chantell, 1.2.840.1 [id number] Methodi 15:00:00 15:15:00 Visit Sharron Rogers. 84786.1.[address] 3.430.2.7 Hospit a .3.919126 l .8 2022-12-11 2022-12-11 Hospital [facility], 1.2.840.1 [id number] 2 [id number] Methodi 08:44:26 10:26:00 Encounter Nabeel 62203.1.[address] 3.430.2.7 Hospit a .3.975403 l .8 2022-12-11 2022-12-11 Travel 1.2.840.1 1.2.785.872 [id number] Methodi 00:00:00 00:00:[address] 3.430.2.7 0.2.7.3.698 Ho spita .3.933252 084.8 l .8 2022-12-11 2022-12-11 Outpatient [facility] [id number] [place] 00:00:00 00:00:00 NABEEL 152 Method i 2022-12-11 2022-12-11 Outpatient [facility] [id number] [place] 00:00:00 00:00:00 NABEEL 921 Method i 2022-12-11 2022-12-11 Outpatient [facility] [id number] [place] 00:00:00 00:00:00 NABEEL 093 Method i 2022-12-11 2022-12-11 Outpatient EGWI[facility] [id number] [place] 00:00:00 00:00:00 ANTOINETTEKWUMA [address] 2022-11-26 2022-11-26 (TEL) STLMLC STLMLC [id number] Co mmon 00:00:00 00:00:00 [facility] 2022-11-24 2022-11-24 Telephone Alysa, 1.2.840.1 [id number] Methodi 00:00:00 00:00:[address] 3.430.2.7 Hospit a .3.755733 l .8 2022-11-24 2022-11-24 Telephone Alysa, 1.2.840.1 [id number] 21 [id number] Methodi 00:00:00 00:00:[address] 3.430.2.7 Hospit a .3.291570 l .8 2022-10-02 2022-10-02 Telephone Angel, 1.2.840.1 [id number] Methodi 00:00:00 00:00:[address] 3.430.2.7 Hospit a .3.185299 l .8 2022-10-01 2022-10-01 (TEL) STLMLC STLMLC [id number] Co mmon 00:00:00 00:00:00 [facility] 2022-09-26 2022-09-26 Orders Jerry, 1.2.840.1 [id number] Methodi 00:00:00 00:00:00 Only Rufino 24516.1.[address] 3.430.2.7 Hospit a .3.175377 l .8 2022-09-26 2022-09-26 (TEL) STLMLC STLMLC [id number] Co mmon 00:00:00 00:00:00 [facility] 2022-09-23 2022-09-23 OFFICE STLMLC STLMLC [id number] Co mmon 00:00:00 00:00:00 VISIT [facility] LEVEL 4 [facility] 2022-09-18 2022-09-18 (TEL) STLMLC STLMLC [id number] Co mmon 00:00:00 00:00:00 [facility] 2022-08-16 2022-08-16 Orders Corinelisha, 1.2.840.1 [id number] Methodi 00:00:00 00:00:00 Only Rufino 25086.1.[address] 3.430.2.7 Hospit a .3.014087 l .8 2022-08-13 2022-08-13 Orders Jerry, 1.2.840.1 [id number] Methodi 00:00:00 00:00:00 Only Rufino 11198.1.[address] 3.430.2.7 Hospit a .3.632031 l .8 2022-06-24 2022-06-24 OFFICE STLMLC STLMLC [id number] Co mmon 00:00:00 00:00:00 VISIT [facility] PT - CHI LEVEL 4 [facility] 2022-06-24 2022-06-24 (TEL) STLMLC STLMLC [id number] Co mmon 00:00:00 00:00:00 [facility] 2022-06-05 2022-06-05 Outpatient KEMAL_BALJEET KEARNS [facility] [id number] [place] 02:44:00 02:44:[address] [facility] 2022-05-21 2022-05-21 (TEL) STLMLC STLMLC [id number] Co mmon 00:00:00 00:00:00 [facility] 2022-05-21 2022-05-21 OFFICE STLMLC STLMLC [id number] Co mmon 00:00:00 00:00:00 VISIT ILA Chaney PT LEVEL 3 [facility] 2022-05-15 2022-05-15 [facility], 1.2.840.1 [id number] 2 [id number] Methodi 14:00:00 23:59:00 Encounter Nabeel 90626.1.[address] 3.430.2.7 Hospit a .3.526107 l .8 2022-05-15 2022-05-15 [facility], 1.2.840.1 [id number] 2 [id number] Methodi 09:16:20 13:59:00 Encounter Nabeel 74534.1.[address] 3.430.2.7 Hospit a .3.857621 l .8 2022-05-15 2022-05-15 Office Chantell, 1.2.840.1 [id number] Methodi 13:15:00 13:30:00 [place]. [address].1.[address] 3.430.2.7 Hospit a .3.517789 l .8 2022-05-15 2022-05-15 Outpatient SALINAS[facility] [id number] [place] 00:00:00 00:00:00 NABEEL 427 Method i 2022-05-15 2022-05-15 Outpatient EGWIM, [facility] [id number] [place] 00:00:00 00:00:00 CHUKWUMA 512 Metho di 2022-05-15 2022-05-15 Outpatient REJI-ELIAS, [facility] [id number] [place] 00:00:00 00:00:00 NABEEL 955 Method i 2022-05-15 2022-05-15 Travel 1.2.840.1 1.2.281.072 [id number] Methodi 00:00:00 00:00:[address] 3.430.2.7 0.2.7.3.698 Ho spita .3.691934 084.8 l .8 2022-05-15 2022-05-15 Outpatient SAL[facility]AS, [facility] [id number] [place] 00:00:00 00:00:00 NABEEL 243 Method i 2022-03-25 2022-03-25 [facility] [id number] Co mmon 00:00:00 00:00:00 VISIT Spirit ESTAB PT - CHI LEVEL 4 [facility] 2022-03-25 2022-03-25 SUB ANNUAL [facility] [id number] Common 00:00:00 00:00:00 MCR [facility] WELLNESS - CHI VISIT [facility] 2022-02-06 2022-02-06 (TEL) [facility] [id number] Co mmon 00:00:00 00:00:00 Spirit - CHI [facility] 2022-01-27 2022-01-27 Outpatient [facility] [id number] [place] 00:00:00 00:00:00 SAMIRA 807 Method i 2022-01-02 2022-01-02 Outpatient EGWIM, [facility] [id number] [place] 00:00:00 00:00:00 CH[address]WUMA [address] 2022-01-02 2022-01-02 Outpatient EGWIM, [facility] [id number] [place] 00:00:00 00:00:00 [address]MA [address] 2022-01-02 2022-01-02 Outpatient ANKOMA-SEY, [facility] [id number] [place] 00:00:00 00:00:00 NABEEL [address] 2021-11-05 2021-11-05 OFFICE STLMLC STLMLC [id number] Co mmon 00:00:00 00:00:00 VISIT [facility] LEVEL 4 [facility] 2021-11-04 2021-11-04 (TEL) STLMLC STLMLC [id number] Co mmon 00:00:00 00:00:00 [facility] 2021-10-04 2021-10-04 Outpatient JEN, [facility] [id number] [place] 00:00:00 00:00:00 AKASH [address] 2021-09-30 2021-09-30 Outpatient FARIBA, [facility] [id number] [place] 00:00:00 00:00:00 IMAD [address] 2021-09-30 2021-09-30 Outpatient FARIBA, [facility] [id number] [place] 00:00:00 00:00:00 IMAD [address] 2021-09-23 2021-09-23 (TEL) STLMLC STLMLC [id number] Co mmon 00:00:00 00:00:00 [facility] 2021-09-17 2021-09-17 (TEL) STLMLC STLMLC [id number] Co mmon 00:00:00 00:00:00 [facility] 2021-09-16 2021-09-16 (TEL) STLMLC STLMLC [id number] Co mmon 00:00:00 00:00:00 [facility] 2021-09-10 2021-09-10 Outpatient SHERICE, [facility] [id number] [place] 00:00:00 00:00:00 RAFIK [address] 2021-09-10 2021-09-10 Outpatient SHERICE, [facility] [id number] [place] 00:00:00 00:00:00 RAFIK [address] 2021-09-10 2021-09-10 Outpatient SHERICE, [facility] [id number] [place] 00:00:00 00:00:00 RAFIK [address] 2021-09-10 2021-09-10 Outpatient SHERICE, [facility] [id number] [place] 00:00:00 00:00:00 RAFIK [address] 2021-09-10 2021-09-10 Outpatient SHERICE, [facility] H [id number] [place] 00:00:00 00:00:00 CHRISTIANOIK [address] 2021-09-10 2021-09-10 Outpatient SHERICE, [facility] H [id number] [place] 00:00:00 00:00:00 CHRISTIANOIK [address] 2021-09-09 2021-09-09 Outpatient SHERICE, [facility] H [id number] [place] 00:00:00 00:00:00 CHRISTIANOIK [address] 2021-09-09 2021-09-09 Outpatient SHERICE, [facility] H [id number] [place] 00:00:00 00:00:00 CHRISTIANOIK [address] 2021-09-09 2021-09-09 Outpatient SHERICE, [facility] H [id number] [place] 00:00:00 00:00:00 CHRISTIANOIK [address] 2021-09-09 2021-09-09 Outpatient SHERICE, [facility] H [id number] [place] 00:00:00 00:00:00 CHRISTIANOIK [address] 2021-09-09 2021-09-09 Outpatient SHERICE, [facility] H [id number] [place] 00:00:00 00:00:00 CRISTOFER [address] 2021-09-09 2021-09-09 Outpatient SHERICE, [facility] [id number] [place] 00:00:00 00:00:00 RAFIK 616 Method i 2021-09-09 2021-09-09 Outpatient SHERICE, [facility] [id number] [place] 00:00:00 00:00:00 RAFIK 619 Method i 2021-09-09 2021-09-09 Outpatient SHERICE, [facility] [id number] [place] 00:00:00 00:00:00 RAFIK 622 Method i 2021-09-09 2021-09-09 Outpatient SHERICE, [facility] [id number] [place] 00:00:00 00:00:00 RAFIK 446 Method i 2021-09-02 2021-09-02 (TEL) STLMLC STLMLC [id number] Co mmon 00:00:00 00:00:00 Spirit - CHI [facility] 2021-08-13 2021-08-13 OFFICE STLMLC STLMLC [id number] Co mmon 00:00:00 00:00:00 VISIT Spirit ESTAB PT - CHI LEVEL 4 [facility] 2021-05-30 2021-05-[address] [facility] [id number] Univers 10:00:00 10:00:00 CATRACHO Henry [facility] 2021-05-27 2021-05-27 [facility] 1.2.840.114 [id number] Univers 08:14:50 23:59:00 Encounter Catracho henry 350.1.13.10 ity [facility] [place]2.7.2.[place] [id number] [facility] 806 [place] 2021-05-27 2021-05-27 Machine Stemmer Juan, Kory Lab Main [facility] 1.2.8 40.114 [id number] Univers 09:25:57 09:40:57 Visit Dez Abrams 350.1.13.10 [facility] [place] 4.2.7.2.686 [facility] [id number] Mt dical nal 353 [facility] 2021-05-27 2021-05-[address] [facility] [id number] Univers 09:00:00 09:00:00 CATRACHO Henry o f [facility] 2021-05-27 2021-05-27 Nurse 1, Adc Infusion Chair [facility] 1.2. 840.114 [id number] Univers 07:47:38 08:47:38 Visit Catracho Thornton 350.1.1 3.10 [facility] [id number] [place] [id number] [place] 2021-05-14 2021-05-14 Outpatient STLMLC STLMLC [id number] Common 00:00:00 00:00:00 [facility] 2021-05-14 2021-05-14 Outpatient STLMLC STLMLC [id number] Common 00:00:00 00:00:00 [facility] 2021-05-02 2021-05-02 [facility] 1.2.840.114 [id number] Univers 08:50:45 23:59:00 Encounter Catracho henry 350.1.13.10 [facility] [place] [id number] [facility] 806 [place] 2021-05-02 2021-05-02 Nurse 1, Adc Infusion Chair [facility] 1.2. 840.114 [id number] Univers 10:03:38 10:33:38 Visit Catracho Thornton 350.1.1 3.10 [facility] 4[place]2.7.2.[place] [id number] [facility] 053 Branch 2021-05-02 2021-05-02 Machine Stemmer Juan, Adc Lab Main [facility] 1.2.8 40.114 [id number] Univers 10:18:06 10:33:06 Visit Catracho Thornton 350.1.1 3.10 [place] 4[place]2.7.2.[place] [id number] [facility] 2021-05-02 2021-05-[address] [facility] [id number] Univers 10:00:00 10:00:00 CATRACHO Henry mable tavares strickland [facility] 2021-04-11 2021-04-11 Outpatient STLMLC STLMLC [id number] Common 00:00:00 00:00:00 [facility] 2021-04-11 2021-04-11 Outpatient STLMLC STLMLC [id number] Common 00:00:00 00:00:00 [facility] 2021-03-28 2021-03-[address] [facility] [id number] Univers 08:45:11 23:59:00 CATRACHO Henry mable tavares f [facility] 2021-03-28 2021-03-28 [facility] 1.2.840.114 [id number] Univers 08:45:11 23:59:00 Encounter Catracho henry 350.1.13.10 [place] [phone] [facility] [address] 2021-03-28 2021-03-28 Machine Stemmer Juan, Adc Lab Main [facility] 1.2.8 40.114 [id number] Univers 10:30:35 10:45:35 Visit Catracho T[place] 350.1.1 3.10 [place] [phone] [facility] 2021-03-28 2021-03-28 Nurse 1, Adc Infusion Nurse [facility] 1.2. 840.114 [id number] Univers 08:45:52 09:15:52 Visit Catracho Thornton 350.1.1 3.10 [place] [phone] [facility] [address] 2021-03-28 2021-03-28 Orders Doctor OLAMIDE 1.2.840.114 [id number] Univers 00:00:00 00:00:00 Only Unassigned, RAFFY 350.1.13.10 ity of [place] [facility] 4.2.7.2.686 Dimitrios as [phone] [facility] [address] 2021-03-21 2021-03-21 Orders Doctor OLAMIDE 1.2.840.114 [id number] Univers 00:00:00 00:00:00 Only Unassigned, RAFFY 350.1.13.10 [place] [id number] Dimitrios as [phone] [facility] [address] 2021-03-07 2021-03-07 Outpatient STLMLC STLMLC [id number] Common 00:00:00 00:00:00 [facility] 2021-03-04 2021-03-04 Outpatient STLMLC STLMLC [id number] Common 00:00:00 00:00:00 [facility] 2021-03-04 2021-03-04 Outpatient STLMLC STLMLC [id number] Common 00:00:00 00:00:00 [facility] 2021-02-20 2021-02-20 Outpatient STLMLC STLMLC [id number] Common 00:00:00 00:00:00 [facility] 2021-02-14 2021-02-14 Outpatient STLMLC STLMLC [id number] Common 00:00:00 00:00:00 [facility] 2021-01-29 2021-01-29 [facility] 1.2.840.114 [id number] Univers 10:00:00 23:59:00 Encounter Catracho henry 350.1.13.10 ity of [place] 4.2.7.2.686 [facility] [phone] [facility] [address] 2021-01-29 2021-01-29 [facility] 1.2.840.114 [id number] 10:00:00 23:59:00 Encounter Catracho henry 350.1.13.10 [place] 4.2.7.2.686 Valentines [id number] 806 2021-01-29 2021-01-29 Nurse 1, Adc Infusion Chair [facility] 1.2. 840.114 [id number] Univers 11:42:41 12:42:41 Visit Catracho Thornton 350.1.1 3.10 [place] [phone] [address] 2021-01-29 2021-01-29 Nurse 1, [facility] 1.2.840.114 [id number] 11:42:41 12:42:41 Visit Infusion Evy 350.1.13.10 Chair [place] 4.2.7.2.686 Surgical [phone] [place] [address] 2021-01-29 2021-01-29 Machine Stemmer Juan, [facility] Lab Main [facility] 1.2.8 40.114 [id number] [facility] 11:59:37 12:14:37 Visit Catracho Thornton 350.1.1 3.10 it[place].2.[place] [phone] Mt dical [address] 2021-01-29 2021-01-29 Machine Stemmer Juan, [facility] 1.2.840.114 [id number] 11:59:37 12:14:37 Visit Lab Main Evy 350.1.13.10 [place] 4.2.7.2.686 Professio [phone] [address] 2021-01-29 2021-01-29 Outpatient R [facility] [id number] Univers 11:00:00 11:00:00 ity of [facility] 2021-01-29 2021-01-29 Orders Doctor QUIÑONEZ 1.2.840.114 [id number] Univers 00:00:00 00:00:00 Only Unassigned, RAFFY 350.1.13.10 ity of [facility] 4.2.7.2.686 Dimitrios as [phone] [address] 2021-01-29 2021-01-29 Orders Doctor QUIÑONEZ 1.2.840.114 [id number] 00:00:00 00:00:00 Only Unassigned, RAFFY 350.1.13.10 [facility] 4.2.7.2.686 [id number] [facility] 2021-01-22 2021-01-22 Outpatient STLMLC STLMLC [id number] Common 00:00:00 00:00:00 [facility] 2021-01-07 2021-01-[address] [facility] [id number] Univers 00:00:00 00:00:00 Carl CATRACHO chapin em [facility] 2021-01-03 2021-01-[address] [facility] [id number] Univers 11:47:32 23:59:00 Carl CATRACHO akins o f [facility] 2021-01-03 2021-01-03 [facility] 1.2.840.114 [id number] Univers 11:30:00 23:59:00 Encounter Catracho henry 350.1.13.10 it[place] [phone] [place] 816666 [place] 2021-01-03 2021-01-03 [facility] 1.2.840.114 8 [id number] 11:30:00 23:59:00 Encounter Catracho henry 350.1.13.10 [place] 4.2.7.2.686 [place] [id number] 806 2021-01-03 2021-01-03 Nurse 1, Adc Infusion Chair [facility] 1.2. 840.114 [id number] Univers 13:06:59 14:06:59 Visit Catracho Thornton 350.1.1 3.10 it[place] [phone] [place] 174463 [place] 2021-01-03 2021-01-03 Nurse 1, Adc [facility] 1.2.840.114 [id number] 13:06:59 14:06:59 Visit Infusion Thornton 350.1.13.10 Chair [place] 4.2.7.2.686 Surgical [phone] [place] [address] 2021-01-03 2021-01-03 Machine Stemmer Juan, Adc Lab Main [facility] 1.2.8 40.114 [id number] Univers 13:43:10 13:58:10 Visit Catracho Thornton Thornton 350.1.1 3.10 it[place] of [place].2.[place] [phone] Mt dical [facility] 353 [facility] 2021-01-03 2021-01-03 Machine Stemmer Kory Martinez [facility] 1.2.840.114 [id number] 13:43:10 13:58:10 Visit Lab Main Evy 350.1.13.10 [place] 4.2.7.2.686 Professio [phone] [address] 2021-01-03 2021-01-03 Orders Doctor QUIÑONEZ 1.2.840.114 [id number] Univers 00:00:00 00:00:00 Only Unassigned, RAFFY 350.1.13.10 ity of [facility] 4.2.7.2.686 Dimitrios as [phone] [address] 2021-01-03 2021-01-03 Orders Doctor QUIÑONEZ 1.2.840.114 [id number] 00:00:00 00:00:00 Only Unassigned, RAFFY 350.1.13.10 [facility] 4.2.7.2.686 [id number] 009 2021-01-01 2021-01-01 Outpatient R [facility] [id number] Univers 12:00:00 12:00:00 ity of [facility] 2020-12-25 2020-12-25 Orders Doctor QUIÑONEZ 1.2.840.114 [id number] Univers 00:00:00 00:00:00 Only Unassigned, RAFFY 350.1.13.10 ity of [facility] 4.2.7.2.686 Dimitrios as [phone] [address] 2020-12-25 2020-12-25 Orders Doctor OLAMIDE Kovacs.2.840.114 [id number] 00:00:00 00:00:00 Only Unassigned, RAFFY 350.1.13.10 [facility] 4.2.7.2.686 [id number] 009 2020-12-17 2020-12-[address] [facility] [id number] Univers 00:00:00 00:00:00 MARGARITA HenryChiki akins tavares strickland [facility] 2020-11-19 2020-11-[address] [facility] [id number] Univers 12:51:09 23:59:00 CATRACHO Henryijeoma tavares strickland [facility] 2020-11-19 2020-11-19 [facility] 1.2.840.114 [id number] Univers 12:51:09 23:59:00 Encounter e, Nizar C SPECIALTY 350.1.13.10 it[place] [phone] [address] 2020-11-19 2020-11-19 [facility] 1.2.840.114 8 [id number] 12:51:09 23:59:00 Encounter e, Nizar C SPECIALTY 350.1.13.10 CARE 4.2.7.2.686 CENTER AT [phone] [address] 2020-10-22 2020-10-22 [facility] 1.2.840.114 7 [id number] Univers 12:49:53 23:59:00 Encounter e, Nizar C SPECIALTY 350.1.13.10 [place] [phone] [address] 2020-10-22 2020-10-22 [facility] 1.2.840.114 7 [id number] 12:49:53 23:59:00 Encounter e, Nizar C SPECIALTY 350.1.13.10 CARE 4.2.7.2.686 CENTER AT [phone] [address] 2020-10-22 2020-10-[address] [facility] [id number] Univers 00:00:00 00:00:00 BRI HenryWISAM akins tavares strickland [facility] 2020-10-02 2020-10-[address] [facility] [id number] Univers 10:00:00 10:00:00 CarlBRIWISAM chapin em [facility] 2020-10-02 2020-10-02 Machine Stemmer 2, Adc Lab [facility] 1.2.840.114 [id number] Univers 09:07:59 09:22:59 Visit Catracho Thornton 350.1.1 3.10 ity of [place] [phone] Mt dical [address] 2020-10-02 2020-10-02 Machine Stemmer 2, Adc Lab [facility] 1.2.840.114 [id number] 09:07:59 09:22:59 Visit Evy 350.1.13.10 [place] 4.2.7.2.686 Professio [phone] [address] 2020-10-02 2020-10-02 Orders Doctor QUIÑONEZ 1.2.840.114 [id number] Univers 00:00:00 00:00:00 Only Unassigned, RAFFY 350.1.13.10 ity of [facility] 4.2.7.2.686 Dimitrios as [phone] [address] 2020-10-02 2020-10-02 Orders Doctor QUIÑONEZ 1.2.840.114 [id number] 00:00:00 00:00:00 Only Unassigned, RAFFY 350.1.13.10 [facility] 4.2.7.2.686 [id number] 009 2020-03-21 2020-03-21 Orders Doctor QUIÑONEZ 1.2.840.114 [id number] Univers 00:00:00 00:00:00 Only Unassigned, RAFFY 350.1.13.10 ity of [facility] 4.2.7.2.686 Dimitrios as [phone] [address] 2020-02-25 2020-02-25 Emergency X [facility] ERT [id number] Univers 06:23:55 10:13:00 MAVIS itijeoma of [facility] 2020-02-25 2020-02-25 Emergency [facility] 1.2.291.309 [id number] Univers 06:23:55 10:13:00 Mavis Ratliff 350.1.13.10 it[place] of [place] [phone] [facility] [address] 2020-02-25 2020-02-25 Nurse OLAMIDE Pinedo 1.2.840.114 [id number] Univers 00:00:00 00:00:00 Triage Katlin AKBAR 350.1.13.10 it y of [facility] 4.2.7.2.686 Dimitrios as [phone] [facility] [address] 2020-02-23 2020-02-23 Transition Kenia Beltran 1.2.840.114 [id number] Univers 00:00:00 00:00:00 of Care Jade Salinas 350.1.13.10 i ty of [place] 4.2.7.2.686 [facility] [phone] [facility] [address] 2020-02-20 2020-02-22 Hospital Hudson Santamaria [facility] 1.2.840.11 [id number] Univers 16:43:26 11:11:00 Encounter Fausto Zuñiga 350.1.13.10 ity [facility] 4.2.7.2.686 [facility] [phone] [facility] [address] 2020-02-20 2020-02-22 Inpatient X FAUSTO ZUÑIGA [facility] REGINA [id number] Univers 16:43:26 11:11:00 ity [facility] Results Test Description Test Time Test Comments Results Result Comments Source SARS-CoV-2 (COVID-19) RNA [Presence] in Respiratory sp ecimen by 2021-09-30 17:33:40 MARICEL with probe detection Test Item Value Reference Range Interpretation Comme nts SARS-CoV-2 (COVID-19) RNA [Presence] in Respiratory Not detected No t-Detected specimen by MARICEL with probe detection (test code = 53273-4) Whether patient is employed in a healthcare setting (test code = 41926-0) Whether the patient has symptoms related to condition of interest (test code = 83430-7) Patient was hospitalized because of this condition (test code = 23687-8) Whether the patient was admitted to intensive care unit (ICU) for condition of interest (test code = 81084-6) Whether patient resides in a congregate care setting (test code = 77417-1) [facility] ([facility]-19) RNA [Presence] in Respiratory specimen by MARICEL with probe [id number] 14:25:58 Test Item Value Reference Range Interpretation Comments SARS-CoV-2 (COVID-19) RNA Not detected Not-Detected [Presence] in Respiratory specimen by MARICEL with probe detection (test code = 92682-6) Whether patient is employed in a healthcare setting (test code = 48439-0) Whether the patient has symptoms related to condition of interest (test code = 54528-9) Patient was hospitalized because of this condition (test code = 89999-3) Whether the patient was admitted to intensive care unit (ICU) for condition of interest (test code = 25641-0) Whether patient resides in a congregate care setting (test code = 50437-3) JOVITA SALINAS PARACENTESIS/PERITONECENTESIS WITH [id number] 15:25:50EXAMINATION: IMAGE GUIDED PARACENTESIS. HISTORY/INDICATION: Therapeutic,Large Volume ?Please performlarge volumeparacentesis every 4 weeks for ascites SEDATION: The patient did not require conscious sedation for the procedure. TECHNIQUE: The risks (including infection and increased risk of bleedingdue to abnormal prothrombin time and platelets), benefits and alternativeswere discussed and informed consent was obtained. Prior to beginning the procedure, [place] "timeout" Protocol wasperformed to confirm the identity [...] DISCHARGED TO: Outpatient surgery for intravenous albumin therapy.[facility], Radiant Results Inft User - 05/02/2021 10:27 AM CDT EXAMINATION: IMAGE GUIDED PARACENTESIS. HISTORY/INDICATION: Therapeutic,Large Volume Please perform large volumeparacentesis every 4 weeks for ascitesSEDATION: The patient did not requi re conscious sedation for the procedure.TECHNIQUE: The risks (including infection and increased riskof bleedingdue to abnormal prothrombin time and platelets), benefits and alternativeswere discussed and informed consent was obtained. Prior to beginning the procedure, [place] "timeout" Protocol wasp erformed to confirm the [...] Minimal.CONDITION: Stable.DISCHARGED TO: [facility]ES[facility]/PERITONECENTESIS WITH [id number] 15:57:18EXAMINATION: IMAGE GUIDED PARACENTESIS. HISTORY/INDICATION: Other ascites [...] was obtained. Prior to beginning the procedure, [place] "timeout" Protocol wasperformed to confirm the identity [...] TO: Outpatient surgery for intravenous albumin therapy. Kenan Gomez User - 03/28/2021 10:58 AM CDTEXAMINATION: IMAGE [...] was obtained. Prior to beginning the procedure, [place] "timeout" Protocol wasperformed to confirm the identity [...] Stable.DISCHARGED TO: Outpatient surgery for intravenous albumin therapy.[facility] FLUID,[id number] 17:47:00 Test Item Value Reference Range Interpretation Comments FLUID,PARACENTESIS (test code = FLPARACENT) RUN DATE: 02/19/21 [facility] - LAB PAGE 1 RUN TIME: 4668 Specimen Inquiry RUN USER: INTERFACE PATIENT: RENA SINCLAIR LOC: JERMAINE U #: [id number] AGE/SX: 70/F ROOM: [facility] RE02/15/21REG DR: Briana Walden MD : 50 BED: A DIS: 02/18/21 STATUS: DIS IN TLOC: SPEC #: [id number] RECD: 02/18/21 STATUS: SOUT REQ #: [id number] HARIS: 02/18/[address] [facility] [address]: Briana Walden MD ENTERED: 02/18/21 SP TYPE: FLUID,PARC OTHR DR: DOES_NOT KNOW Self Referred Laisha Alexis MDORDERED: ANDI CORMIERPATH CODES: DD7630 - ABDOMEN, NOS CK2132 C99761 - ABDOMEN, NOS NO EVIDENCE OF JL1941 Q850080 - ABDOMEN, NOS CENTESIS, NOS COPIES TO: DOES_NOT KNOW [place] [address] [facility] [address] [place] [address] Laisha Alexis MD [address] [address] PROCEDURES: CB (02/18/21-1458) SUREPATH (02/18/21) TISSUES: A. ABDOMEN, NOS - PARACENTESIS CPT CODES CPT CODE(S): 12725 , 10208 , , , , , FINAL DIAGNOSIS ASCITIC FLUID, PARACENTESIS WITH CELL BLOCK: - NEGATIVE FOR MALIGNANCY GROSS DESCRIPTION Paracentesis. Received are 1200 mL of cloudy, yellow fluid. One thin-layer slide is prepared for Pap stain. One cell block is prepared. /lien CONTINUED ON NEXT PAGE RUN DATE: 02/19/21 [place] - LAB PAGE 2 RUN TIME: 1747 Specimen Inquiry RUN USER: INTERFACE SPEC #: [id number] PATIENT: RENA SINCLAIR #[id number] (Continued) MICROSCOPIC DESCRIPTION Paracentesis. - Signed SIGNATURE ON FILE Silver Riley 02/19/21 2666 END OF REPORT - PARACENTESIS W [id number] 11:12:00 [facility] 1950 Sex: F Patient Name: RENA SINCLAIR Unit No: [id number] EXAMS: CPT CODE: [id number] PARACENTESIS W IMAGE 91498 EXAMINATION: IMAGE-GUIDED PARACENTESIS. LOCATION: B2. HISTORY: Ascites SEDATION: The patient did not require conscious sedation for the procedure. ANTIBIOTICS: None. Not indicated. CONTRAST: None. TECHNIQUE: The risks, benefits, and alternatives were discussed and informed consent was obtained. Prior to beginning the procedure, [place] Protocol was used to confirm the patient's [...] of ascitic fluid. IMPRESSION: Successful image-guided paracentesis. component prep operator: Trudi Dhillon PA-C I have personally reviewed these images and agree with the physician assistant professor of biology's interpretation. at 1112 Reported and signed by: Laisha Alexis MD [facility] NAME: RENA SINCLAIR [address] [place] PHYS: [place] [address] : 1950 AGE: 70 SEX: F LOC: Z.313 A PHONE #: [phone] EXAM DATE: 02/18/2021 STATUS: ADM IN FAX #: [phone] RADIOLOGY NO: PAGE 1 Signed Report (CONTINUED) Patient Name: RENA SINCLAIR Unit No: [id number] EXAMS: CPT CODE: [id number] PARACENTESIS W IMAGE 15638 (Continued) CC: Mason Ward MD Technologist: Jewels Talaver[employer] Transcrpt Date/Tm/Trnsp: 02/18/2021 (1112) [email or web address] Orig Print D/T: S: 02/18/2021 (1115) [facility] NAME: RENA SINCLAIR [address] [place] PHYS: [place] [address] : 1950 AGE: 70 SEX: F LOC: Z.620 A PHONE #: [phone] EXAM DATE: 02/18/2021 STATUS: ADM IN FAX #: [phone] RADIOLOGY NO: PAGE 2 Signed ReportGLUCOSE BEDSIDE TESTING 2021-02-18 10:44:00 Test Item Value Reference Range Interpretation Comments GLUCOSE BEDSIDE TESTING (test code 259 MG/DL 60-99 H = GLUBED) COVID 19 Asymptomatic IH [id number] 09:16:00 Test Item Value Reference Range Interpretation [...] virus (antigen) in the sample." GLUCOSE BEDSIDE [id number] 07:41:00 Test Item Value Reference Range Interpretation Comments GLUCOSE BEDSIDE TESTING (test code 157 MG/DL 60-99 H = GLUBED) BASIC METABOLIC [id number] 05:35:00 Test Item Value Reference Range Interpretation [...] UNITS/L 120-246 N code = LDH) PROTHROMBIN [id number] 05:26:00 Test Item Value Reference Range Interpretation [...] syste eloise embolism. 3.0 - 4.5 HGB [id number] 05:17:00 Test Item Value Reference Range Interpretation Comments HEMOGLOBIN (test code = HGB) 7.1 G/DL 11.2-14.9 L HEMATOCRIT (test code = HCT) 24.2 % 33.2-43.5 L GLUCOSE BEDSIDE [id number] 21:29:00 Test Item Value Reference Range Interpretation Comments GLUCOSE BEDSIDE TESTING (test code 157 MG/DL 60-99 H = GLUBED) GLUCOSE BEDSIDE [id number] 16:33:00 Test Item Value Reference Range Interpretation Comments GLUCOSE BEDSIDE TESTING (test code 165 MG/DL 60-99 H = GLUBED) GLUCOSE BEDSIDE [id number] 11:19:00 Test Item Value Reference Range Interpretation Comments GLUCOSE BEDSIDE TESTING (test code 173 MG/DL 60-99 H = GLUBED) GLUCOSE BEDSIDE [id number] 07:38:00 Test Item Value Reference Range Interpretation Comments GLUCOSE BEDSIDE TESTING (test code 128 MG/DL 60-99 H = GLUBED) BASIC METABOLIC [id number] 06:59:00 Test Item Value Reference Range Interpretation [...] UNITS/L 120-246 N code = LDH) HGB [id number] 06:32:00 Test Item Value Reference Range Interpretation Comments HEMOGLOBIN (test code = HGB) 7.3 G/DL 11.2-14.9 L HEMATOCRIT (test code = HCT) 24.4 % 33.2-43.5 L GLUCOSE BEDSIDE [id number] 20:53:00 Test Item Value Reference Range Interpretation Comments GLUCOSE BEDSIDE TESTING (test code 201 MG/DL 60-99 H = GLUBED) BASIC METABOLIC [id number] 07:14:00 Test Item Value Reference Range Interpretation [...] 120-246 N code = LDH) THYROID STIMULATING [id number] 07:14:00 Test Item Value Reference Range Interpretation Comments THYROID STIMULATING 2.620 MIU/L 0.465-4.68 N Please b e aware that HORMONE (test code = bias re sults for TSH TSH) may occur forpa tient who are taking Biotin suppleme nts. T4 [id number] 07:13:00 Test Item Value Reference Range Interpretation Comments T4 FREE (test code = T4F) 1.4 NG/DL 0.78-2.19 N HGB [id number] 06:47:00 Test Item Value Reference Range Interpretation Comments HEMOGLOBIN (test code = HGB) 7.2 G/DL 11.2-14.9 L HEMATOCRIT (test code = HCT) 23.8 % 33.2-43.5 L BASIC METABOLIC [id number] 06:44:00 Test Item Value Reference Range Interpretation [...] 120-246 N code = LDH) THYROID STIMULATING [id number] 06:44:00 Test Item Value Reference Range Interpretation Comments THYROID STIMULATING HORMONE (test code MIU/L 0.465-4.68 = TSH) GLUCOSE BEDSIDE [id number] 06:28:00 Test Item Value Reference Range Interpretation Comments GLUCOSE BEDSIDE TESTING (test code 174 MG/DL 60-99 H = GLUBED) VITAMIN [id number] 22:26:00 Test Item Value Reference Range Interpretation Comments VITAMIN B12 (test code = VITB12) 987 pg/mL 239-931 H [id number] 22:26:00 Test Item Value Reference Range Interpretation Comments FERRITIN (test code = VAUGHN) 12.3 NG/ML 11.1-264 N VITAMIN [id number] 22:11:00 Test Item Value Reference Range Interpretation Comments VITAMIN B12 (test code = VITB12) pg/mL 239-931 [id number] 22:11:00 Test Item Value Reference Range Interpretation Comments FERRITIN (test code = VAUGHN) 12.3 NG/ML 11.1-264 N FE W/TOTAL IRON BINDING CAP.2021-02-15 21:44:00 Test Item Value Reference Range Interpretation Comments SERUM IRON (test code = IRON) 35 MCG/DL 37-170 L TOTAL IRON BINDING CAPACITY (test 400 MCG/DL 265-497 N code = TIBC) IRON SATURATION (test code = 9 % 12-57 L FESAT) [id number] 21:35:00 Test Item Value Reference Range Interpretation Comments AMMONIA (test code = AMM) < 9 mcMOL/L 9-30 L FE W/TOTAL IRON BINDING CAP.2021-02-15 21:34:00 Test Item Value Reference Range Interpretation Comments SERUM IRON (test code = IRON) 35 MCG/DL 37-170 L TOTAL IRON BINDING CAPACITY (test MCG/DL 265-497 code = TIBC) IRON SATURATION (test code = FESAT) % 12-57 GLUCOSE BEDSIDE [id number] 20:37:00 Test Item Value Reference Range Interpretation Comments GLUCOSE BEDSIDE TESTING (test code 142 MG/DL 60-99 H = GLUBED) COMPREHENSIVE METABOLIC [id number] 12:57:00 Test Item Value Reference Range Interpretation [...] one of thoseassays per formed in our lab.Interfe rence testing perform ed at [facility] determined that Eltrombopag does interfere with Vitros Total Protein asfollowsEltrom bopag Interference fo r Vitros Product Total Protein:======= Eltrombopag Max Observed Av g. BiasConcentrati on Concentration Concentration== ==== 2.5 mg/dl [...] TBil/ 1. 2mg/dl +0.23mg.dl +0.2 0mg/dlBuBc 3.5mg/dl Bu/0.8 mg/dl +0.25mg/dl +0.2 4mg/dlBuBc 7 mg/dl Bu/14.2mg /dl +0.38mg/dl +0.2 5mg/dlBuBc 5mg/dl Bc/0mg/d l +0.25mg/dl +0.15mg/dlBuBc 3.5mg/dl Bc/2.8mg/dl +0. 25mg/dl +0.23mg/dl SGOT/AST (test 41 UNITS/L 14-36 H code = AST) SGPT/ALT (test 17 UNITS/L <35 code = ALT) ALKALINE 71 UNITS/L 38-126 N PHOSPHATASE (test code = ALKP) PROTHROMBIN [id number] 12:53:00 Test Item Value Reference Range Interpretation [...] eloise embolism. 3.0 - 4.5 CBC W/AUTO [id number] 12:40:00 Test Item Value Reference Range Interpretation [...] K/mm3 0.0-0.1 N NRBC#) IR PARACENTESIS/PERITONECENTESIS WITH [id number] 16:49:16EXAMINATION: IMAGE GUIDED PARACENTESIS. HISTORY/INDICATION: please perform large volume paracentesisevery 4 weeksfor ascites please perform large volume paracentesis every 4 weeks forascites SEDATION:The patient did not require conscious sedation for the procedure. TECHNIQUE: The risks (including infection and increased risk of bleedingdue to abnormal prothrombin time and platelets), benefits and al ternativeswere discussed and informed consent was obtained. Prior to beginning the procedure, [place] "timeout" Protocol wasperformed to confirm the identity [...] TO: Outpatient surgery for intravenous albumin therapy. [facility], Radiant Results Inft User - 01/29/2021 [...] was obtained. Prior to beginning the procedure, [place] "timeout" Protocol wasperformed to confirm the identity [...] Stable.DISCHARGED TO: [facility]/PERITONECENTESIS WITH [id number] 19:45:02EXAMINATION: IMAGE GUIDED PARACENTESIS. HISTORY/INDICATION: Other ascites Please perform large volume paracentesisevery 4 weeks for ascites SEDATION: The patient did not require conscious sedation for the procedure. TECHNIQUE: The risks (including infection and increased risk of bleedingdue to abnormal prothrombin time and platelets), benefits and alternativeswere discussed and informed consent was ob tained. Prior to beginning the procedure, [place] "timeout" Protocol wasperformed to confirm the identity [...] TO: Outpatient surgery for IV albumin therapy. [facility], Radiwilliam Results Inft User - 01/03/2021 1:46 PM CSTEXAMINATION: IMAGE GUIDED PARACENTESIS. HISTORY/INDICATION: Other ascites Please perform large volume paracentesisevery 4 weeks for ascitesSEDATION: The patient did notrequire conscious sedation for the procedure.TECHNIQUE: The risks (including infection and increasedrisk of bleedingdue to abnormal prothrombin time and platelets), benefits and alternativeswere discussed and informed consent was obtained. Prior to beginning the procedure, [place] "timeout" Protocol wasperformed to confirm the identity [...] Stable.DISCHARGED TO: Outpatient [facility] PAR[facility]ENTESIS/PERITONECENTESIS WITH [id number] 20:22:56Successful US- guided paracentesis.PROCEDURE: US-guided paracentesis HISTORY: [...] discussingthe risks and benefits of the procedure. [place] protocol timeout wasperformed verifying correct patient, correct [...] discussingthe risks and benefits of the procedure. [place] protocol timeout wasperformed verifying correct patient, correct [...] Estimated Blood Loss : <1 ccIMPRESSIONSuccessful US-guided paracentesis.[facility] PARACENTESIS/PERITONECENTESIS WITH [id number] 21:20:52 Successful US-guided paracentesis.PROCEDURE: US-guided paracentesis HISTORY: [...] discussingthe risks and benefits of the procedure. [place] protocol timeout wasperformed verifying correct patient, correct [...] cc [facility], Radiant Results Inft User - 10/22/20203:44 PM CSTPROCEDURE: US-guided paracentesisHISTORY: Ascites, paracentesis is requested.MEDICATIONS:Local lidocaine. I reviewed the patient?s current medicationlist as noted in the nursing assessment,and the following actions weretaken: None []. ATTENDING PRESENCE: As the attending radiologist, I was present in theroom during the entire procedure.TECHNIQUE: Informed consent was obtained from the patient after discussingthe risks and benefits of the procedure. [place] protocol timeout wasperformed verifying correct patient, correct [...] Estimated Blood Loss : <1 ccIMPRESSIONSuccessful US-guided paracentesis.[facility]G [facility] IGM)2020-10-03 00:09:00 Test Item Value Reference Range Interpretation Comments HAV Total (test code = 2461209229) Negative HAVT Semi-Quantitative (test code = 4529714019) [facility]HEPATITIS [facility] SURFACE [id number] 00:09:00 Test Item Value Reference Range Interpretation Comments HBsAB (test code = Negative 4708622221) HBsAb mIU/mL Semi-Quantitative (test code = 4958976692) MARY (test code = Interpretation: MARY) ?Hepatitis B Surface Antibody ? Negative - Patient is considered to be not immune to infection with HBV. ? ? Positive - Anti-HBs detected at greater than or equal to 12 mIU/mL. ?Patient is considered to be immune to infection with HBV. ? [facility]TIBODY (IGM & IGG)2020-10-03 00:09:00 Test Item Value Reference Range Interpretation Comments HBC (test code = 7276960912) Negative HBC Semi-Quantitative (test code = 5268383246) [facility] HendersonHCV [id number] 00:09:00 Test Item Value Reference Range Interpretation Comments HCV Ab (test code = 94472-6) Negative HCV Semi-Quantitative (test code = 12602-8) [facility] HendersonALPHA [id number] 23:55:00 Test Item Value Reference Range Interpretation Comments AFP (test code = 3.2 ng/mL See_Comment [Automated 5107719496) message] The system which generated this result transmitted reference range : <=7.5. The reference range was not used to interpret this result as normal/abnormal . MARY (test code = MARY) Biotin has been reported to cause a negative bias, interpret results relative to patient's use of biotin. Lab Interpretation Normal (test code = 94429-9) [facility] HendersonHEPATITIS B SURFACE [id number] 23:52:00 Test Item Value Reference Range Interpretation Comments HBsAg Semi-Quantitative (test code = Negative Negative 5195-3) [facility] HendersonCBC WITH [id number] 19:15:00 Test Item Value Reference Range Interpretation Comments WBC (test code = See_Comment L [Automated 2599-2) message] The sy stem which generated this result transmitted reference range : 4.30 - 11.10 10*3/?L. The reference range was not used to interpret this result as normal/abnormal . RBC (test code = See_Comment L [Automated 537-8) message] The sy stem which generated this [...] RDW-SD (test code = 45.3 fL 39-49.9 40842-1) RDW-CV (test code = 15.7 % 12-15.5 H 788-0) PLT (test code = See_Comment L [Automated 777-3) message] The sy stem which generated this result transmitted reference range : 166 - 358 10*3/ ?L. The reference r glenn was not used to interpret this result as normal/abnormal . MPV (test code = 12.2 fL 9.5-12.9 50493-4) IPF % (test code = 4.5 % 1.3-7.7 Platelet count 6711568395) measured by fluorescence method. NRBC/100 WBC (test See_Comment [Automat ed code = 3483902221) message] The system which generated this result transmitted reference range : 0.0 - 10.0 /100 WBCs. The refer ence range was not u sed to interpret th is result as normal/abnormal . NRBC x10^3 (test code <0.01 See_Comment [Auto mated = 9433075886) message] The s ystem which generated this result transmitted reference range : 10*3/?L. The reference range was not used to interpret this result as normal/abnormal . GRAN MAT (NEUT) % 64.4 % (test code = 770-8) IMM GRAN % (test code 0.30 % = 1454820027) LYMPH % (test code = 19.7 % 736-9) MONO % (test code = 11.5 % 5905-5) EOS % (test code = 3.5 % 713-8) BASO % (test code = 0.6 % 706-2) GRAN MAT x10^3(ANC) 2.02 10*3/uL 1.88-7.09 (test code = 3784030588) IMM GRAN x10^3 (test <0.03 0-0.06 code = 5110006914) LYMPH x10^3 (test code 0.62 10*3/uL 1.32-3.29 L = 731-0) MONO x10^3 (test code 0.36 10*3/uL 0.33-0.92 = 742-7) EOS x10^3 (test code = 0.11 10*3/uL 0.03-0.39 711-2) BASO x10^3 (test code <0.03 0.01-0.07 = 704-7) Lab Interpretation Abnormal (test code = 67609-8) [facility] WITH [id number] 19:15:00 Test Item Value Reference Range Interpretation [...] RDW-SD (test code = 45.3 fL 39-49.9 20781-4) RDW-CV (test code = 15.7 % 12-15.5 H 788-0) PLT (test code = See_Comment L [Automated 777-3) message] The sy stem which generated this result transmitted reference range : 166 - 358 10*3/ ?L. The reference r glenn was not used to interpret this result as normal/abnormal . MPV (test code = 12.2 fL 9.5-12.9 22731-6) IPF % (test code = 4.5 % 1.3-7.7 Platelet count 5811564446) measured by fluorescence method. NRBC/100 WBC (test See_Comment [Automat ed code = 6144838592) message] The system which generated this result transmitted reference range : 0.0 - 10.0 /100 WBCs. The refer ence range was not u sed to interpret th is result as normal/abnormal . NRBC x10^3 (test code <0.01 See_Comment [Auto mated = 3856884813) message] The s ystem which generated this result transmitted reference range : 10*3/?L. The reference range was not used to interpret this result as normal/abnormal . GRAN MAT (NEUT) % 64.4 % (test code = 770-8) IMM GRAN % (test code 0.30 % = 7493368365) LYMPH % (test code = 19.7 % 736-9) MONO % (test code = 11.5 % 5905-5) EOS % (test code = 3.5 % 713-8) BASO % (test code = 0.6 % 706-2) GRAN MAT x10^3(ANC) 2.02 10*3/uL 1.88-7.09 (test code = 8378304316) IMM GRAN x10^3 (test <0.03 0-0.06 code = 6758506040) LYMPH x10^3 (test code 0.62 10*3/uL 1.32-3.29 L = 731-0) MONO x10^3 (test code 0.36 10*3/uL 0.33-0.92 = 742-7) EOS x10^3 (test code = 0.11 10*3/uL 0.03-0.39 711-2) BASO x10^3 (test code <0.03 0.01-0.07 = 704-7) Lab Interpretation Abnormal (test code = 47319-4) [facility] HendersonPROTHROMBIN TIME / [id number] 19:10:00 Test Item Value Reference Range Interpretation Comments PROTIME PATIENT (test See_Comment H [Auto mated message] code = 5964-2) The system [employer] ich generated this result transmitted ref erence range: 12.0 - 1 4.7 Seconds. The reference range was not used to int erpret this result as normal/abnormal . INR (test code = 6301-6) Nor mal INR <1.1; Warfarin Therap eutic range 2.0 to 3. 0 or 2.5 to 3.5, dep ending upon the indica tions. Lab Interpretation (test Abnormal code = 20199-1) [facility] HendersonPROTHROMBIN TIME / [id number] 19:10:00 Test Item Value Reference Range Interpretation Comments PROTIME PATIENT (test See_Comment H [Auto mated message] code = 5964-2) The system [employer] generated this result transmitted ref erence range: 12.0 - 1 4.7 Seconds. The reference range was not used to int erpret this result as normal/abnormal . INR (test code = 6301-6) Nor mal INR <1.1; Warfarin Therap eutic range 2.0 to 3. 0 or 2.5 to 3.5, dep ending upon the indica tions. Lab Interpretation (test Abnormal code = 83108-1) [facility] HendersonFERRITIN [id number] 18:12:00 Test Item Value Reference Range Interpretation Comments FERRITIN (test code = 20.5 ng/mL 264 5638118380) MARY (test code = MARY) Biotin has been reported to cause a negative bias, interpret results relative to patient's use of biotin. Lab Interpretation (test Normal code = 83861-2) [facility] HendersonFERRITIN [id number] 18:12:00 Test Item Value Reference Range Interpretation Comments FERRITIN (test code = 20.5 ng/mL 264 5473095681) MARY (test code = MARY) Biotin has been reported to cause a negative bias, interpret results relative to patient's use of biotin. Lab Interpretation (test Normal code = 26807-5) [facility] [id number] 17:49:00 Test Item Value Reference Range Interpretation Comments TIBC (test code = 9291979777) 401 ug/dL 250-410 % FE SAT (test code = 6119282519) 12 % 20-50 L Lab Interpretation (test code = Abnormal 10072-3) [facility] IRON BINDING [id number] 17:49:00 Test Item Value Reference Range Interpretation Comments TIBC (test code = 2976552000) 401 ug/dL 250-410 % FE SAT (test code = 4920527037) 12 % 20-50 L Lab Interpretation (test code = Abnormal 46406-2) [facility]HEPATIC FUNCTION PANEL (88076) (ALB,T.PRO,BILI T,BU/BC,ALT,AST,ALK PHOS)2020-10-02 17:39:00 Test Item Value Reference Range Interpretation Comments TOTAL BILI (test code = 3642774273) 1.3 mg/dL 0.1-1.1 H BILI UNCON (test code = 1625590981) 1.0 mg/dL 0.1-1.1 BILI CONJ (test code = 5259493374) 0.0 mg/dL 0-0.3 T PROTEIN (test code = 8225573292) 6.8 g/dL 6.3-8.2 ALBUMIN (test code = 2638535309) 3.0 g/dL 3.5-5 L ALK PHOS (test code = 9380578995) 95 U/L 34-122 ALTv (test code = 1742-6) 18 U/L 5-35 AST(SGOT) (test code = 1634486475) 53 U/L 13-40 H Lab Interpretation (test code = Abnormal 87530-4) [facility] HendersonIRON2020-11-17 17:39:00 Test Item Value Reference Range Interpretation Comments IRON (test code = 2359926038) 49 ug/dL 50-160 L Lab Interpretation (test code = Abnormal 64408-7) [facility] HendersonHEPATIC FUNCTION PANEL (67073) (ALB,T.PRO,BILI T,BU/BC,ALT,AST,ALK PHOS)2020-10-02 17:39:00 Test Item Value Reference Range Interpretation Comments TOTAL BILI (test code = 4841959224) 1.3 mg/dL 0.1-1.1 H BILI UNCON (test code = 0712711705) 1.0 mg/dL 0.1-1.1 BILI CONJ (test code = 4360511569) 0.0 mg/dL 0-0.3 T PROTEIN (test code = 0610612895) 6.8 g/dL 6.3-8.2 ALBUMIN (test code = 6661260897) 3.0 g/dL 3.5-5 L ALK PHOS (test code = 2681066527) 95 U/L 34-122 ALTv (test code = 1742-6) 18 U/L 5-35 AST(SGOT) (test code = 2944063491) 53 U/L 13-40 H Lab Interpretation (test code = Abnormal 63107-6) [facility] HendersonIRON2020-11-17 17:39:00 Test Item Value Reference Range Interpretation Comments IRON (test code = 3718020907) 49 ug/dL 50-160 L Lab Interpretation (test code = Abnormal 25690-7) [facility] HendersonCT HEAD WO [id number] 14:12:08 No acute intracranial abnormality. Preliminary Report [...] acute intracranial abnormality.Preliminary Report Dictated by Resident: Karan Brumfield MD., have reviewed this study and agree with the abovereport.[facility] HendersonTROPONIN [id number] 14:11:00 Test Item Value Reference Range Interpretation Comments TROPONIN I (test <0.012 See_Comment [Automated code = 8986806222) message] The system which generated this result [...] ? Lab Interpretation Normal (test code = 41623-9) [facility] HendersonACETAMINOPHEN2020-04-11 13:30:00 Test Item Value Reference Range Interpretation Comments ACETAMINOP (test code = <10.0 10-30 L 4712919782) MARY (test code = MARY) Toxic: Greater than 200 ug/mL @ 4 hour post ingestion or greater than 50 ug/mL @ 12 hour post ingestion Lab Interpretation (test Abnormal code = 08409-2) [facility] HendersonSALICYLATE2020-04-11 13:13:00 Test Item Value Reference Range Interpretation Comments SALICYLATE (test code 10 mg/L = 7766562434) MARY (test code = MARY) Therapeutic Range: ? Analgesic and Antipyretic Use ? 20-100 mg/L ? ? Anti-Inflammatory Use ? 100-250 mg/L Toxic Range: ? Greater than 300 mg/L [facility] HendersonaPTT2020-04-11 13:12:00 Test Item Value Reference Range Interpretation Comments APTT Patient (test See_Comment [Automat ed code = 3173-2) message] The system which generated this result transmitted reference range : 23 - 38 Seconds . The reference range was not used to interpr et this result as normal/abnormal . MARY (test code = MARY) The [facility] patient population mean normal value for aPTT is 30 seconds. Lab Interpretation Normal (test code = 57525-2) [facility] HendersonPROTHROMBIN TIME / [id number] 13:10:00 Test Item Value Reference Range Interpretation [...] tions. Lab Interpretation (test Abnormal code = 17872-1) [facility] [id number] 13:08:00 Test Item Value Reference Range Interpretation Comments BENZO U (test code = Negative Negative 9451624580) FATEMEH U (test code = Negative Negative 3076023104) AMPHET (test code = Negative Negative 1964498303) THC (test code = Negative Negative 0236904507) METHADONE (test code = Negative Negative 2499592162) Meth U (test code = Negative Negative 3843598798) OPIATES (test code = Negative Negative 0663954606) Cocaine Metabolite (test Negative Negative code = 0701962520) PROPOXY (test code = Negative Negative 7269238057) Tric U (test code = Negative Negative 5771991889) PCP (test code = Negative Negative 7341003863) OXYCOD (test code = Negative Negative 2992667894) MARY (test code = MARY) Urine Drug [...] testing). Lab Interpretation (test Normal code = 57284-0) [facility] HendersonUrinalysis2020-04-11 13:07:00 Test Item Value Reference Range Interpretation Comments APPEARANCE (test code = Clear Clear 7216720231) COLOR (test code = Yellow Yellow 1223958291) PH (test code = 4.8-8.0 2799567310) SP GRAVITY (test code = 1.003-1.030 1765537186) GLU U QUAL (test code = 150 mg/dL Normal A 2864344701) BLOOD (test code = Negative Negative 3111302923) KETONES (test code = Negative Negative 2339676397) PROTEIN (test code = Negative Negative 2887-8) UROBILIN (test code = 2.0 mg/dL Normal A 1826893187) BILIRUBIN (test code = Negative Negative 6651106919) NITRITE (test code = Negative Negative 3794593172) LEUK SABA (test code = Negative Negative 2232694005) RBC/HPF (test code = See_Comment [Autom ated message] 1207096004) The system [employer] generated this result transmit carlitos reference range : 0 - 3 HPF. The refe rence range was not u sed to interpret th is result as normal/abnormal . WBC/HPF (test code = See_Comment [Autom ated message] 7831408748) The system [employer] generated this result transmit carlitos reference range : 0 - 5 HPF. The refe rence range was not u sed to interpret th is result as normal/abnormal . BACTERIA (test code = Moderate Negative A 3423063668) MUCOUS (test code = Moderate Negative LPF A 8176918791) SQ EPITH (test code = <1 HPF 7275596254) HYAL CAST (test code = See_Comment [Aut omated message] 4328432355) The system [employer] generated this result transmit carlitos reference range : <=2 LPF. The refere nce range was not u sed to interpret th is result as normal/abnormal . Lab Interpretation (test Abnormal code = 41142-8) [facility] HendersonAMMONIA, [id number] 12:48:00 Test Item Value Reference Range Interpretation Comments AMMONIA (test code = 7028901581) 13 umol/L 9-33 Lab Interpretation (test code = Normal 10939-3) [facility] WITH [id number] 12:37:00 Test Item Value Reference Range Interpretation Comments WBC (test code = See_Comment [Automated 6690-2) message] The sy stem which generated this result transmitted reference range : 4.30 - 11.10 10*3/?L. The reference range was not used to interpret this result as normal/abnormal . RBC (test code = See_Comment [Automated 789-8) message] The sy stem which [...] RDW-SD (test code = 42.4 fL 39-49.9 00446-7) RDW-CV (test code = 13.0 % 12-15.5 788-0) PLT (test code = See_Comment L [Automated 777-3) message] The sy stem which generated this result transmitted reference range : 166 - 358 10*3/ ?L. The reference r glenn was not used to interpret this result as normal/abnormal . MPV (test code = 11.8 fL 9.5-12.9 00599-0) IPF % (test code = 4.6 % 1.3-7.7 Platelet count 2082733472) measured by fluorescence method. NRBC/100 WBC (test See_Comment [Automat ed code = 7271608203) message] The system which generated this result transmitted reference range : 0.0 - 10.0 /100 WBCs. The refer ence range was not u sed to interpret th is result as normal/abnormal . NRBC x10^3 (test code <0.01 See_Comment [Auto mated = 0080048565) message] The s ystem which generated this result transmitted reference range : 10*3/?L. The reference range was not used to interpret this result as normal/abnormal . GRAN MAT (NEUT) % 80.2 % (test code = 770-8) IMM GRAN % (test code 0.20 % = 8612164283) LYMPH % (test code = 12.0 % 736-9) MONO % (test code = 6.2 % 5905-5) EOS % (test code = 1.2 % 713-8) BASO % (test code = 0.2 % 706-2) GRAN MAT x10^3(ANC) 4.55 10*3/uL 1.88-7.09 (test code = 6792261126) IMM GRAN x10^3 (test <0.03 0-0.06 code = 2756207927) LYMPH x10^3 (test code 0.68 10*3/uL 1.32-3.29 L = 731-0) MONO x10^3 (test code 0.35 10*3/uL 0.33-0.92 = 742-7) EOS x10^3 (test code = 0.07 10*3/uL 0.03-0.39 711-2) BASO x10^3 (test code <0.03 0.01-0.07 = 704-7) PLT ESTIMATE (test Decreased Normal A code = 9317-9) Lab Interpretation Abnormal (test code = 61355-9) [facility] Metabolic Panel (NA, K, CL, CO2, GLUCOSE, BUN, CREATININE, CA)2020-02-25 12:11:00 Test Item Value Reference Range Interpretation Comments NA (test code = 139 mmol/L 135-145 5923329226) K (test code = 4.8 mmol/L 3.5-5 7781349916) CL (test code = 104 mmol/L 98-108 5972954897) CO2 TOTAL (test code = 26 mmol/L 23-31 1970440669) AGAP (test code = 2-16 5017778659) BUN (test code = 24 mg/dL 7-23 H 4312488408) GLUCOSE (test code = 266 mg/dL 70-110 H 7837208918) CREATININE (test code = 0.85 mg/dL 0.5-1.04 7278860470) CALCIUM (test code = 9.9 mg/dL 8.6-10.6 4493679003) eGFR Calculation mL/min/1.73m2 (Non-) (test code = 4429350639) eGFR Calculation mL/min/1.73m2 () (test code = 7640829576) MARY (test code = MARY) Association of [...] tests). Lab Interpretation Abnormal (test code = 43674-3) [facility]Hep[facility] (ALB, T.PRO, BILI T, BU/BC, ALT, AST, ALK PHOS)2020-02-25 12:11:00 Test Item Value Reference Range Interpretation Comments TOTAL BILI (test code = 6023138085) 1.3 mg/dL 0.1-1.1 H BILI UNCON (test code = 7376833488) 1.2 mg/dL 0.1-1.1 H BILI CONJ (test code = 4409225112) 0.0 mg/dL 0-0.3 T PROTEIN (test code = 7945391135) 8.1 g/dL 6.3-8.2 ALBUMIN (test code = 0831217994) 3.9 g/dL 3.5-5 ALK PHOS (test code = 7051380274) 119 U/L 34-122 ALTv (test code = 1742-6) 27 U/L 5-35 AST(SGOT) (test code = 3410191951) 45 U/L 13-40 H Lab Interpretation (test code = Abnormal 49207-6) [facility] HendersonLipase [id number] 12:11:00 Test Item Value Reference Range Interpretation Comments LIPASE (test code = 5318558556) 68 U/L 0-220 Lab Interpretation (test code = Normal 22116-9) [facility] HendersonBASI METABOLIC PANEL (NA, K, CL, CO2, GLUCOSE, BUN, CREATININE, CA)2020-02-22 11:41:00 Test Item Value Reference Range Interpretation Comments NA (test code = 140 mmol/L 135-145 6426093062) K (test code = 3.5 mmol/L 3.5-5 0495786870) CL (test code = 101 mmol/L 98-108 3372102698) CO2 TOTAL (test code = 28 mmol/L 23-31 4167250859) AGAP (test code = 2-16 1493310768) BUN (test code = 24 mg/dL 7-23 H 0126680311) GLUCOSE (test code = 144 mg/dL 70-110 H 8458866006) CREATININE (test code = 0.97 mg/dL 0.5-1.04 3699610735) CALCIUM (test code = 9.5 mg/dL 8.6-10.6 8056203596) eGFR Calculation mL/min/1.73m2 (Non-) (test code = 9630520635) eGFR Calculation mL/min/1.73m2 () (test code = 5179429966) MARY (test code = MARY) Association of [...] tests). Lab Interpretation Abnormal (test code = 97014-4) [facility], [id number] 10:44:00 Test Item Value Reference Range Interpretation Comments AMMONIA (test code = 8611634890) 22 umol/L 9-33 Lab Interpretation (test code = Normal 43230-0) [facility] GLUCOSE (AUTOMATED)2020-02-22 01:15:00 Test Item Value Reference Range Interpretation Comments POCT GLU (test code = 2047045898) 178 mg/dL 70-110 H Lab Interpretation (test code = Abnormal 31841-5) [facility] GLUCOSE (AUTOMATED)2020-02-21 16:39:00 Test Item Value Reference Range Interpretation Comments POCT GLU (test code = 9282519832) 223 mg/dL 70-110 H Lab Interpretation (test code = Abnormal 47170-8) [facility] [id number] 15:10:00 Test Item Value Reference Range Interpretation Comments AMMONIA (test code = 1188012446) 30 umol/L 9-33 Lab Interpretation (test code = Normal 07752-7) [facility] GLUCOSE (AUTOMATED)2020-02-21 12:44:00 Test Item Value Reference Range Interpretation Comments POCT GLU (test code = 4751322139) 191 mg/dL 70-110 H Lab Interpretation (test code = Abnormal 64924-6) [facility] WITH [id number] 11:50:00 Test Item Value Reference Range Interpretation [...] RDW-SD (test code = 41.1 fL 39-49.9 55748-3) RDW-CV (test code = 13.1 % 12-15.5 788-0) PLT (test code = See_Comment L [Automated 777-3) message] The sy stem which generated this result transmitted reference range : 166 - 358 10*3/ ?L. The reference r glenn was not used to interpret this result as normal/abnormal . MPV (test code = 12.6 fL 9.5-12.9 61981-8) IPF % (test code = 5.2 % 1.3-7.7 Platelet count 0480330990) measured by fluorescence method. NRBC/100 WBC (test See_Comment [Automat ed code = 1112898556) message] The system which generated this result transmitted reference range : 0.0 - 10.0 /100 WBCs. The refer ence range was not u sed to interpret th is result as normal/abnormal . NRBC x10^3 (test code <0.01 See_Comment [Auto mated = 0049172452) message] The s ystem which generated this result transmitted reference range : 10*3/?L. The reference range was not used to interpret this result as normal/abnormal . GRAN MAT (NEUT) % 59.3 % (test code = 770-8) IMM GRAN % (test code 0.30 % = 6822877152) LYMPH % (test code = 22.5 % 736-9) MONO % (test code = 13.7 % 5905-5) EOS % (test code = 3.9 % 713-8) BASO % (test code = 0.3 % 706-2) GRAN MAT x10^3(ANC) 2.29 10*3/uL 1.88-7.09 (test code = 8715098932) IMM GRAN x10^3 (test <0.03 0-0.06 code = 7218959192) LYMPH x10^3 (test code 0.87 10*3/uL 1.32-3.29 L = 731-0) MONO x10^3 (test code 0.53 10*3/uL 0.33-0.92 = 742-7) EOS x10^3 (test code = 0.15 10*3/uL 0.03-0.39 711-2) BASO x10^3 (test code <0.03 0.01-0.07 = 704-7) PLT ESTIMATE (test Decreased Normal A code = 9317-9) Lab Interpretation Abnormal (test code = 46633-6) [facility] Metabolic Panel (NA, K, CL, CO2, GLUCOSE, BUN, CREATININE, CA)2020-02-21 11:23:00 Test Item Value Reference Range Interpretation Comments NA (test code = 138 mmol/L 135-145 4486306645) K (test code = 3.5 mmol/L 3.5-5 7294322261) CL (test code = 103 mmol/L 98-108 0813808909) CO2 TOTAL (test code = 27 mmol/L 23-31 7093025771) AGAP (test code = 2-16 0011227370) BUN (test code = 22 mg/dL 7-23 7594133893) GLUCOSE (test code = 189 mg/dL 70-110 H 9154269856) CREATININE (test code = 0.65 mg/dL 0.5-1.04 8445722290) CALCIUM (test code = 9.2 mg/dL 8.6-10.6 4501165952) eGFR Calculation mL/min/1.73m2 (Non-) (test code = 2078040658) eGFR Calculation mL/min/1.73m2 () (test code = 7337079953) MARY (test code = MARY) Association of [...] tests). Lab Interpretation Abnormal (test code = 65268-6) [facility]2020-02-21 01:41:00 Test Item Value Reference Range Interpretation Comments POCT GLU (test code = 4138469153) 196 mg/dL 70-110 H Lab Interpretation (test code = Abnormal 22287-3) [facility] HendersonGlycosylated Hemoglobin (A1C)2020-02-21 01:36:00 Test Item Value Reference [...] Indicated Lab Interpretation Abnormal (test code = 00088-5) [facility] HendersonMagnesium [id number] 01:32:00 Test Item Value Reference Range Interpretation Comments MAGNESIUM (test code = 7749580593) 1.6 mg/dL 1.7-2.4 L Lab Interpretation (test code = Abnormal 86433-8) [facility] HendersonLipid Panel (Total Cholesterol, Triglycerides, HDL) - [id number] 01:30:00 Test Item Value Reference Range Interpretation Comments CHOL (test code = 180 mg/dL 120-200 8199601200) HDL (test code = 45 mg/dL >50 L 3700044110) HDLC RATIO (test code = See_Comment [Au tomated message] 6480449371) The system [employer] generated this result transmit carlitos reference range : <=4.5. The refe rence range was not u sed to interpret th is result as normal/abnormal . TRIG (test code = 88 mg/dL 30-170 0787592891) LDL CHOL (test code = 117 mg/dL See_Comment [Auto mated message] 22587-0) The system Pensqr generated this result transmit carlitos reference range : <=160. The refe rence range was not u sed to interpret th is result as normal/abnormal . VLDL (test code = 18 mg/dL 5-60 8418656013) Lab Interpretation (test Abnormal code = 92476-5) [facility] [id number] 23:38:00 Test Item Value Reference Range Interpretation Comments SARS-CoV-2 (test code = Not Detected Not Detected 65372-9) MARY (test code = MARY) ID NOW COVID-19 Assay is an isothermal nucleic acid amplification test intended for the qualitative detection of nucleic acid from SARS-CoV-2 viral RNA in nasopharyngeal (RADAR REPAIRER) specimens. It is used under Emergency Use [...] indicated. Lab Interpretation Normal (test code = 56245-6) [facility] CHEST 2 [id number] 23:00:37Impression: No focal consolidation or pneumothorax. Small [...] left-sided pleural effusion.Preliminary Report Dictated by Resident: Torres Blas MD., have reviewed this study and agree with the abovereport.[facility]IN[facility]YSIS2020-[facility]-06 22:53:00 Test Item Value Reference Range Interpretation Comments APPEARANCE (test code = Hazy Clear A 6620392827) COLOR (test code = Denita Yellow A 2197212891) PH (test code = 4.8-8.0 5673993058) SP GRAVITY (test code = 1.003-1.030 H 7264999240) GLU U QUAL (test code = 50 mg/dL Normal A 0235519421) BLOOD (test code = Negative Negative INTERFERE NCE FROM 6160700507) ASCORBIC ACID M AY CAUSE FALSE NEG ATIVE RESULT KETONES (test code = Negative Negative 3828312920) PROTEIN (test code = 30 mg/dL Negative A 2887-8) UROBILIN (test code = 4.0 mg/dL Normal A 3802343320) BILIRUBIN (test code = 2 mg/dL Negative A 5028366367) NITRITE (test code = Negative Negative 2383609575) LEUK SABA (test code = Negative Negative 5267483066) RBC/HPF (test code = <1 See_Comment [Autom ated message] 4080360426) The system Pensqr generated this result transmitted ref erence range: 0 - 3 HP F. The reference range was not used to int erpret this result as normal/abnormal . WBC/HPF (test code = See_Comment H [Autom ated message] 7878162969) The system Pensqr generated this result transmitted ref erence range: 0 - 5 HP F. The reference range was not used to int erpret this result as normal/abnormal . BACTERIA (test code = Few Negative A 7753576203) MUCOUS (test code = Marked Negative LPF A 9897512489) SQ EPITH (test code = HPF 8805318917) Ictotest (test code = Negative 3746213842) Lab Interpretation Abnormal (test code = 61884-3) [facility] [id number] 22:41:00 Test Item Value Reference Range Interpretation Comments TROPONIN I (test 0.010 ng/mL See_Comment [Automated code = 6703973581) message] The system which generated this result [...] ? Lab Interpretation Normal (test code = 56639-2) [facility] HEAD WO [id number] 22:40:19Addendum by Ronaldo Link MD on 02/20/2020 [...] [facility], Radiant Results Inft User - 02/20/2020 5:41 [...] less likely focal hemorrhage. Attention onfollow-up is recommended.[facility] HendersonCOMP. METABOLIC PANEL (95502)2020-02-20 22:30:00 Test Item Value Reference Range Interpretation Comments NA (test code = 139 mmol/L 135-145 1139089194) K (test code = 3.8 mmol/L 3.5-5 6838099332) CL (test code = 104 mmol/L 98-108 2057942517) CO2 TOTAL (test code = 27 mmol/L 23-31 3951829981) AGAP (test code = 2-16 2620451062) BUN (test code = 23 mg/dL 7-23 7540180300) GLUCOSE (test code = 244 mg/dL 70-110 H 0390047461) CREATININE (test code = 0.71 mg/dL 0.5-1.04 9036695440) TOTAL BILI (test code = 1.0 mg/dL 0.1-1.0 1212611866) CALCIUM (test code = 9.4 mg/dL 8.6-10.6 9492245662) T PROTEIN (test code = 7.3 g/dL 6.3-8.2 4183583399) ALBUMIN (test code = 3.4 g/dL 3.5-5 L 0797139532) ALK PHOS (test code = 101 U/L 34-122 6441548724) ALTv (test code = 30 U/L 5-35 1742-6) AST(SGOT) (test code = 76 U/L 13-40 H 4054565134) eGFR Calculation mL/min/1.73m2 (Non-) (test code = 3354205284) eGFR Calculation mL/min/1.73m2 () (test code = 7770752719) MARY (test code = MARY) Association of [...] tests). Lab Interpretation Abnormal (test code = 75878-1) [facility]IPASE2020-[facility] 22:30:00 Test Item Value Reference Range Interpretation Comments LIPASE (test code = 6686597675) 62 U/L 0-220 Lab Interpretation (test code = Normal 97792-2) [facility] HendersonAMMONIA, [id number] 22:29:00 Test Item Value Reference Range Interpretation Comments AMMONIA (test code = 2434016225) 48 umol/L 9-33 H Lab Interpretation (test code = Abnormal 93578-4) [facility] HendersonCB WITH [id number] 22:19:00 Test Item Value Reference Range Interpretation Comments WBC (test code = See_Comment [Automated 1082-2) message] The sy stem which generated this result transmitted reference range : 4.30 - 11.10 10*3/?L. The reference range was not used to interpret this result as normal/abnormal . RBC (test code = See_Comment [Automated 360-1) message] The sy stem which generated this [...] RDW-SD (test code = 41.2 fL 39-49.9 80024-8) RDW-CV (test code = 13.1 % 12-15.5 788-0) PLT (test code = See_Comment L [Automated 777-3) message] The sy stem which generated this result transmitted reference range : 166 - 358 10*3/ ?L. The reference r glenn was not used to interpret this result as normal/abnormal . MPV (test code = 11.7 fL 9.5-12.9 35442-1) NRBC/100 WBC (test See_Comment [Automat ed code = 5717908511) message] The system which generated this result transmitted reference range : 0.0 - 10.0 /100 WBCs. The refer ence range was not u sed to interpret th is result as normal/abnormal . NRBC x10^3 (test code <0.01 See_Comment [Auto mated = 1865653774) message] The s ystem which generated this result transmitted reference range : 10*3/?L. The reference range was not used to interpret this result as normal/abnormal . GRAN MAT (NEUT) % 66.4 % (test code = 770-8) IMM GRAN % (test code 0.30 % = 5966987347) LYMPH % (test code = 17.6 % 736-9) MONO % (test code = 11.7 % 5905-5) EOS % (test code = 3.3 % 713-8) BASO % (test code = 0.7 % 706-2) GRAN MAT x10^3(ANC) 4.04 10*3/uL 1.88-7.09 (test code = 5701887329) IMM GRAN x10^3 (test <0.03 0-0.06 code = 7068836322) LYMPH x10^3 (test code 1.07 10*3/uL 1.32-3.29 L = 731-0) MONO x10^3 (test code 0.71 10*3/uL 0.33-0.92 = 742-7) EOS x10^3 (test code = 0.20 10*3/uL 0.03-0.39 711-2) BASO x10^3 (test code 0.04 10*3/uL 0.01-0.07 = 704-7) Lab Interpretation Abnormal (test code = 40399-3) [facility] Henderson[facility]I-MITOCHONDRIAL AB, REFLEX TO TITER 2019-09-28 07:59:00 Test Item Value Reference Range Interpretation Comments SCAN RESULT (test code = 0572228) RESPIRATORY PANEL [id number] 13:14:00 Test Item Value Reference Range Interpretation [...] decisions. This sample was tested at the [facility] using the CardiolaArray Respiratory Panel. It is FDA cleared and has been verified and approved by the [facility] for clinical use on nasopharyngeal swab specimens.The performance of the FilmArrayRP has not been established in individuals who received influenza vaccine. Recent administration of a nasal influenza vaccine may cause false positive results for Influenza A and/orInfluenza B.POCT-GLUCOSE [id number] 13:03:00 Test Item Value Reference Range Interpretation Comments POC-GLUCOSE METER 258 mg/dL 70-110 H : TESTED A T [facility] 6720 (BEAKER) (test code = [facility], 153) 78181: Chart Picker/Techni bravo ID = [id number] for Yue Kennedy POCT-GLUCOSE [id number] 08:53:00 Test Item Value Reference Range Interpretation Comments POC-GLUCOSE METER 197 mg/dL 70-110 H : TESTED A T [facility] 6720 (BEAKER) (test code = [facility], 153) 01677: Chart Picker/Techni bravo ID = [id number] for JOSE LUIS MIX POCT-GLUCOSE [id number] 23:16:00 Test Item Value Reference Range Interpretation Comments POC-GLUCOSE METER 246 mg/dL 70-110 H : TESTED A T [facility] 6720 (BEAKER) (test code = [facility], 153) 79302: Chart Picker/Techni bravo ID = [id number] for CL COYGill, GONZÁLEZ POCT-GLUCOSE [id number] 18:13:00 Test Item Value Reference Range Interpretation Comments POC-GLUCOSE METER 254 mg/dL 70-110 H : TESTED A T [facility] 6720 (BEAKER) (test code = [facility], 1538) 37786: Chart Picker/Techni bravo ID = [id number] for ST STEVE, NADA POCT-GLUCOSE [id number] 13:25:00 Test Item Value Reference Range Interpretation Comments POC-GLUCOSE METER 201 mg/dL 70-110 H : TESTED A T [facility] 6720 (BEAKER) (test code = [facility], 1538) 11568: Chart Picker/Techni bravo ID = [id number] for ST ANURAGIC, NADA POCT-GLUCOSE [id number] 08:22:00 Test Item Value Reference Range Interpretation Comments POC-GLUCOSE METER 184 mg/dL 70-110 H : TESTED A T [facility] 6720 (BEAKER) (test code = [facility], 153) 41038: Chart Picker/Techni bravo ID = [id number] for ST ANURAGIC, NADA POCT-GLUCOSE [id number] 23:53:00 Test Item Value Reference Range Interpretation Comments POC-GLUCOSE METER 297 mg/dL 70-110 H : TESTED A T [facility] 6720 (BEAKER) (test code = [facility], 1538) 67330: Chart Picker/Techni bravo ID = [id number] for RA CARLIEIjeoma, MICHAEL POCT-GLUCOSE [id number] 18:55:00 Test Item Value Reference Range Interpretation Comments POC-GLUCOSE METER 256 mg/dL 70-110 H : TESTED A T [facility] 6720 (BEAKER) (test code = [facility], 153) 01013: Chart Picker/Techni bravo ID = [id number] for DO BBINS, OFELIA POCT-GLUCOSE [id number] 18:49:00 Test Item Value Reference Range Interpretation Comments POC-GLUCOSE METER 213 mg/dL 70-110 H : TESTED A T [facility] 6720 (BEAKER) (test code = [facility], 153) 40669: Chart Picker/Techni bravo ID = [id number] for DO BBINS, OFELIA POCT-GLUCOSE [id number] 18:44:00 Test Item Value Reference Range Interpretation Comments POC-GLUCOSE METER 216 mg/dL 70-110 H : TESTED A T [facility] 6720 (BEAKER) (test code = [place], 1538) 60097: Chart Picker/Techni bravo ID = [id number] for OFELIA CHAPMAN CBC W/PLT COUNT & AUTO [id number] 09:27:00 Test Item Value Reference Range Interpretation [...] PERCENT (BEAKER) (test code = 2801) POCT-GLUCOSE [id number] 00:33:00 Test Item Value Reference Range Interpretation Comments POC-GLUCOSE METER 330 mg/dL 70-110 H : Notified RN/MD: (BEAKER) (test code = TESTED AT [facility] 6720 1538) [facility], [address]: Chart Picker/Techni bravo ID = [id number] for Kathryn Hidalgo POCT-GLUCOSE [id number] 18:45:00 Test Item Value Reference Range Interpretation Comments POC-GLUCOSE METER 335 mg/dL 70-110 H : Notified RN/MD: (BEAKER) (test code = TESTED AT [facility] 6720 153) [facility], [address]: Chart Picker/Techni bravo ID = [id number] for JASE TYLER BLOOD GAS, [id number] 15:34:00 Test Item Value Reference Range Interpretation [...] has been upright for 15 minutes.POCT- GLUCOSE [id number] 10:59:00 Test Item Value Reference Range Interpretation Comments POC-GLUCOSE METER 185 mg/dL 70-110 H : [facility] (test code = [facility], 1538) 06485: Chart Picker/Techni bravo ID = [id number] for MARIA GUADALUPE COX POCT-GLUCOSE [id number] 07:44:00 Test Item Value Reference Range Interpretation Comments POC-GLUCOSE METER 235 mg/dL 70-110 H : TESTED A T [facility] 6720 ([facility]) (test code = [facility], 1538) 85474: Chart Picker/Techni bravo ID = [id number] for MAYO MASSEYO, TWYLA BILIRUBIN, [id number] 06:38:00 Test Item Value Reference Range Interpretation Comments BILIRUBIN DIRECT 0.3 mg/dL 0.1-0.5 Specimen sl ightly ([facility]) (test code = hemoly zed 706) POCT-GLUCOSE [id number] 23:23:00 Test Item Value Reference Range Interpretation Comments POC-GLUCOSE METER 367 mg/dL 70-110 H : TESTED A T [facility] 6720 ([facility]) (test code = [facility], [facility]8) 01059: Chart Picker/Techni bravo ID = [id number] for MICHAEL CRAIG POCT-GLUCOSE [id number] 18:06:00 Test Item Value Reference Range Interpretation Comments POC-GLUCOSE METER 296 mg/dL 70-110 H : TESTED A T [facility] 6720 ([facility]) (test code = [facility], 1538) 57513: Chart Picker/Techni bravo ID = [id number] for RE AL, RONILO POCT-GLUCOSE [id number] 13:06:00 Test Item Value Reference Range Interpretation Comments POC-GLUCOSE METER 234 mg/dL 70-110 H : TESTED A T [facility] 6720 ([facility]) (test code = [facility], 1538) 27029: Chart Picker/Techni bravo ID = [id number] for TE KARAN, TWYLA CT, ABDOMEN, [id number] 12:02:00Please scan with liver protocolFINAL REPORT TECHNIQUE: [...] MDReport Verified Date/Time: 09/16/2019 12:02:29 Reading Location: [facility] C013Y CT Body Reading Room POCT-GLUCOSE METER 2019-09-16 10:32:00 Test Item Value Reference Range Interpretation Comments POC-GLUCOSE METER 241 mg/dL 70-110 H : TESTED A T [facility] 6720 (BEAKER) (test code = [place] [facility], 1538) 470[address]: Chart Picker/Techni bravo ID = [id number] for NAVI VÁSQUEZYESSENIALORA HEPATIC FUNCTION [id number] 07:48:00 Test Item Value Reference Range Interpretation [...] = 20 U/L 6-55 347) BASIC METABOLIC [id number] 07:48:00 Test Item Value Reference Range Interpretation [...] NOT APPLICABLE FOR DIALYSIS PATIEN TS. PROTHROMBIN TIME/[id number] 07:16:00 Test Item Value Reference Range Interpretation [...] 2.5-3.5 for patients wiht mechanical heart valves.POCT-GLUCOSE [id number] 06:57:00 Test Item Value Reference Range Interpretation Comments POC-GLUCOSE METER 241 mg/dL 70-110 H : TESTED A T [facility] 6720 (BEAKER) (test code = [place], 1538) 79[address]: Chart Picker/Techni bravo ID = [id number] for AL BETH CBC W/PLT COUNT & AUTO [id number] 06:53:00 Test Item Value Reference Range Interpretation [...] PERCENT (BEAKER) (test code = 2801) POCT-GLUCOSE [id number] 17:32:00 Test Item Value Reference Range Interpretation Comments POC-GLUCOSE METER 259 mg/dL 70-110 H : TESTED A T [facility] 6720 (BEAKER) (test code = [facility], 1538) 25393: Chart Picker/Techni bravo ID = [id number] for SUPA HAWKINSA POCT-GLUCOSE [id number] 15:11:00 Test Item Value Reference Range Interpretation Comments POC-GLUCOSE METER 200 mg/dL 70-110 H : Will Rep eat Test: (BEAKER) (test code = Notifi ed RN/MD: Verify 1538) w/ Lab Draw: TE STED AT [facility] 67[address] [facility], 770 30: Chart Picker/Techni bravo ID = [id number] for NG BARBARA, DANNY HEMOGLOBIN [id number] 13:55:00 Test Item Value Reference Range Interpretation Comments HEMOGLOBIN A1C (BESHAHRAM) (test code = 9.4 % 4.3-6.1 H 368) RAD, CHEST, 1 VIEW, NON [id number] 13:32:00Reason for exam:->SOBShould this be performed at the bedside?->YesFINAL REPORT INDICATION: SOB COMPARISON: None TECHNIQUE: Single frontal view ofthe chest. FINDINGS: Lungs and pleura: Clear lungs. No effusion.Heart and mediastinum: Normal heart size. Unremarkable mediastinal contours.Osseous structures: No acute abnormality.Other: None. IMPRESSION: No acute intrathoracic abnormality. Signed: Mildred Sampson Verified Date/Time: 09/15/2019 13:32:27 Reading Location: [facility] Radiology Reading Room POCT-GLUCOSE [id number] 12:11:00 Test Item Value Reference Range Interpretation Comments POC-GLUCOSE METER 227 mg/dL 70-110 H : TESTED Bette Chandra [facility] 6720 (BEAKER) (test code = [place], 1538) [address]: Chart Picker/Techni bravo ID = [id number] for MAXX EDWARDS (CELLAVISION MANUAL DIFF)2019-09-15 09:13:00 [...] 3438) Received comment: User comments: Slide comments:POCT-GLUCOSE [id number] 08:34:00 Test Item Value Reference Range Interpretation Comments POC-GLUCOSE METER 219 mg/dL 70-110 H : TESTED A T [facility] 6720 (BEAKER) (test code = [place], 1538) [address]: Chart Picker/Techni bravo ID = [id number] for Or January arana [id number] 07:30:00 Test Item Value Reference Range Interpretation Comments FERRITIN (BEAKER) (test code = 361) 11 ng/mL 5-275 HEPATITIS A ANTIBODY, [id number] 06:17:00 Test Item Value Reference Range Interpretation Comments HEPATITIS A IGG ANTIBODY (BEAKER) Reactive Nonreactive A (test code = 2797) CBC W/PLT COUNT & AUTO [id number] 05:50:00 Test Item Value Reference Range Interpretation [...] (BEAKER) (test code = 413) COMPREHENSIVE METABOLIC [id number] 05:49:00 Test Item Value Reference Range Interpretation [...] FOR DIALYSIS PATIEN TS. HEPATITIS B SURFACE [id number] 05:48:00 Test Item Value Reference Range Interpretation Comments HEPATITIS B SURFACE ANTIBODY < mIU/mL <8.0 (BEAKER) (test code = 647) HEPATIC FUNCTION [id number] 05:44:00 Test Item Value Reference Range Interpretation [...] 0-100 H (test code = 700) PROTHROMBIN [id number] 05:23:00 Test Item Value Reference Range Interpretation [...] 2.5-3.5 for patients wiht mechanical heart valves.POCT-GLUCOSE [id number] 21:42:00 Test Item Value Reference Range Interpretation Comments POC-GLUCOSE METER 286 mg/dL 70-110 H : TESTED A T [facility] 6720 (BEAKER) (test code = [facility], 1538) 98039: Chart Picker/Techni bravo ID = [id number] for NICHOLE ELKINS POCT-GLUCOSE [id number] 19:12:00 Test Item Value Reference Range Interpretation Comments POC-GLUCOSE METER 219 mg/dL 70-110 H : TESTED A T [facility] 6720 (BEAKER) (test code = [facility] [employer] [facility], 1538) 15157: Chart Picker/Techni bravo ID = [id number] for RUFINO HIGGINS CREATININE, RANDOM [id number] 19:07:00 Test Item Value Reference Range Interpretation Comments CREATININE URINE (BEAKER) (test 63.7 mg/dL code = 375) Reference Range: No NormalsSODIUM, RANDOM [id number] 19:07:00 Test Item Value Reference Range Interpretation Comments SODIUM URINE (BEAKER) (test code = 66 meq/L 243) Reference Range: No NormalsURINALYSIS W/ REFLEX URINE [id number] 18:51:00 Test Item Value Reference Range Interpretation [...] 173 mg/dL 22-293 (test code = 638) [id number]-[id number] 17:00:00 Test Item Value Reference Range Interpretation Comments ALPHA-1 ANTITRYPSIN (BEAKER) 104.20 mg/dL 90.00-200.00 (test code = 502) [id number] 15:44:00 Test Item Value Reference Range Interpretation Comments FERRITIN (BEAKER) (test code = 361) 4 ng/mL 5-275 L HEMOGLOBIN AND [id number] 14:54:00 Test Item Value Reference Range Interpretation [...] mg/dL 540-1,822 (test code = 427) POCT-GLUCOSE [id number] 13:43:00 Test Item Value Reference Range Interpretation Comments POC-GLUCOSE METER 175 mg/dL 70-110 H : Notified RN/MD: TESTED (BEAKER) (test code AT [facility] [address] [place] = 1538) [facility], 770 30: Chart Picker/Techni bravo ID = [id number] for LUDWIN CARPIO POCT-GLUCOSE [id number] 09:14:00 Test Item Value Reference Range Interpretation Comments POC-GLUCOSE METER 200 mg/dL 70-110 H : Notified RN/MD: TESTED (BEAKER) (test code AT [facility] [address] [place] = 1538) [facility], [facility] 30: Chart Picker/Techni bravo ID = [id number] for LUDWIN CARPIO HEPATITIS PANEL, [id number] 03:41:00 Test Item Value Reference Range Interpretation Comments HEPATITIS A IGM ANTIBODY (BEAKER) Nonreactive Nonreactive (test code = 498) HEPATITIS B CORE IGM ANTIBODY Nonreactive Nonreactive (BEAKER) (test code = 645) HEPATITIS C ANTIBODY (BEAKER) Nonreactive Nonreactive (test code = 367) HEPATITIS B SURFACE ANTIGEN (2) Nonreactive Nonreactive (BEAKER) (test code = 2585) TROPONIN [id number] 03:25:00 Test Item Value Reference Range Interpretation [...] H (test code = 700) BASIC METABOLIC [id number] 03:12:00 Test Item Value Reference Range Interpretation [...] APPLICABLE FOR DIALYSIS PATIEN TS. HEPATIC FUNCTION [id number] 03:12:00 Test Item Value Reference Range Interpretation [...] slightly (test code = 347) hemolyzed PROTHROMBIN TIME/[id number] 03:09:00 Test Item Value Reference Range Interpretation [...] mechanical heart valves.CBC W/PLT COUNT & AUTO [id number] 02:56:00 Test Item Value Reference Range Interpretation [...] GRANULOCYTES-RELATIVE PERCENT (BEAKER) (test code = 2801) Notes Date/Time Note Provider Source 2021-04-05 19:55:00-00:00 [id number] [place] [address] PATIENT NAME: RENA SINCLAIR ADMIT DATE: 0 02/15/21 ACCOUNT NO: [id number] ROOM NO: Z.620 AGE: 70 REPORT TYPE: DISCHARGE SUMMARY REPORT SEX: F ADMITTING PHYSICIAN:Briana Walden MD ATTENDING PHYSICIAN:Briana Walden MD ADMISSION DATE: 02/15/2021 DISCHARGE DATE: 02/18/2021 FINAL DIAGNOSES: Iron-deficiency anemia, suspect ed gastrointestinal bleeding, coagulopathy, ascites, portal hypertension, cirr hosis of liver, nonalcoholic steatohepatitis, chronic obstructive lung diseas e, hypertension, diabetes mellitus type 2, history of cancer of breast, bi lateral mastectomy remote, obesity, exogenous calories, hyperlipidemia, benign polyp in stomach, history of psoriasis, arthritis, morbid obesity. CONSULTANTS: Gastroenterology and interventional radiology. PROCEDURES: Ultrasound-guided paracentesis, esop hagogastroduodenoscopy and resection of polyp benign, colonoscopy . HOSPITAL COURSE: The patient is a 72-year-old fe male referred from [facility] with severe anemia. She has not had any gross bleeding. She is obese. She had bilateral mastectomy for cancer and craig motherapy in remote past, history of biopsy with diagn osis of cirrhosis of liver without varices. Medical problems include arthritis, psoriasis, c irrhosis of liver, obesity. Hemoglobin was about 7.5, but not recent acute blood. We ga ve her intravenous iron. Procedures were EGD and colonoscopy, fin ding of benign polyp which was removed and gastritis. No overt bleeding . Paracentesis done. No evidence of metastatic disease found. Plan was to continue i yessenia supplementation indefinitely and maintain he r medication program for cirrhosis and hypertension. She has limited ambulation. Return to primary c are physician for long-term management and gastroenterology for followup. Dictated By: Briana Walden MD WT: DS:ELIZABET/FARZAD/VAISHALI Conf#: [id number]/DID#: [id number] Authenticated and Edited by Briana muñiz MD On 04/06/21 7:40:15 PM at 1943 PATIENT NAME: RENA SINCLAIR ACCOUNT #: [id number] 2021-02-18 10:56:00-00:00 [facility] ([facility]) Gastroenterology Progress Note REPORT#:[id number] REPORT STATUS: Signed DATE:02/18/21 TIME: 1056 PATIENT: RENA SINCLAIR UNIT #: [id number] ROOM/BED: [address] : 50 AGE: 70 SEX: F ATTEND: Felicita Walden MD ADM AUTHOR: Mason Ward MD * ALL edits or amendments must be made on the el [employer]/computer document * Subjective HPI: Interval hx: Scheduled for paracentesis today CONSULTING PHYSICIAN: Mason Ward MD REASON FOR CONSULTATION: Gastrointestinal bleed. HISTORY OF PRESENT ILLNESS: The patient is a 70- year-old female who was transferred from [facility] in [place] for severe anemia. The patient had been sent to the ER for severe anemia by her doctors and initially she was transfused 2 units of packed red blood cells. Hemoglobin went up from 6.2 to 6.8 without normal c hange, although she did have hemoccult studies done, which was negative. In view of the m further, the patient's hemoglobin did not appreciate as would b e expected. There was concern that the patient may be having some ongoing bleeding. She was transferred to [facility]. She also had a CAT scan showing a large volume ascites. She has past history of COPD, hypertension, crystal betes, history of cirrhosis, history of ascites with previous paracentesis at least every month. According to the patient, she was diagnosed with cirrhosis about a year ago and she has had fatty liver for several years. Histo ry of breast cancer in 1995. She is in remission. History of bilateral mastectomy. ALLERGIES: NO DRUG ALLERGY. FAMILY HISTORY: Noncontributory. SOCIAL HISTORY: No history of smoking or alcohol abuse. REVIEW OF SYSTEMS: A 14-poin t review of systems was normal except as documented above. Objective Physical Exam HEENT: anicteric, atraumatic, clear corn ea, EOMI, normocephalic, PERRL, PERRLA Neck: no JVD, no lymphadenopathy, no masses or s welling Cardiovascular: normal heart sounds, normal S1/S 2, regular rate rhythm, no murmur Respiratory: aerating well, clear to auscultatio n, equal breath sounds, no distress, no tenderness Abdomen: non-tender, normal bowel sounds, soft, no distention, no mass/ organomegaly, no rebound Extremities: moves all, no clubbing, no cyanosis , no edema Musculoskeletal: full range of motion, normal in spection, painless range of motion Neuro/VICE PRESIDENT FOR PHILANTHROPY: alert, oriented X 3 Skin: dry, intact Lymphatics: axilla normal, inguinal normal, neck normal, no lymphadenopathy Diagnosis, Assessment Plan Problem List/A P: 1. Severe anemia 2. Cirrhosis 3. Ascites Free Text A P: Severe anemia; No evidence of gi bleed Likely due to multiple factors ,including seques tration Ascites: schedueld for paracentesis today Cirrhosis; stable Electronically Signed by Mason Ward MD 02/27/21 at 1820 RPT #:[id number] END OF REPORT 2021-02-18 09:33:00-00:00 [facility] ([facility]) Brief Op Note REPORT#:[id number] REPORT STATUS: Signed DATE:02/18/21 TIME: 932 PATIENT: RENA SINCLAIR UNIT #: [id number] ROOM/BED: [address] : 50 AGE: 70 SEX: F ATTEND: Felicita Walden MD ADM AUTHOR: Trudi Dhillon * ALL edits or amendments must be made on the [employer] document * Op/Inv Proc Note - Brief Pre-procedure diagnosis: Ascites Post-procedure diagnosis: same as pre procedure dx Procedures performed: Paracentesis Primary Surgeon: Trudi Dhillon PA-C Lead Sales Consultant(s): none Anesthesia: local anesthesia Findings: Successful ultrasound guided paracentesis, removed 10.1L of clear yellow fluid. 75g of 25% albumin was given . Pt tolerated procedure well. More detailed report in PACS. Complications: none Estimated blood loss in ml's: none Specimens removed/altered: none Disposition: return to floor, stable Electronically Signed by Trudi Dhillon on 0 02/18/21 at 1002 at 1427 RPT #:[id number] END OF REPORT 2021-02-18 09:33:00-00:00 [facility] ([facility]) Brief Op Note REPORT#:[id number] REPORT STATUS: Signed DATE:02/18/21 TIME: 932 PATIENT: RENA SINCLAIR UN[facility] #: [id number] [facility] AGE: 70 SEX: F ATTEND: Felicita Walden MD ADM AUTHOR: Trudi Dhillon * ALL edits or amendments must be made on the [employer] document * Op/Inv Proc Note - Brief Pre-procedure diagnosis: Ascites Post-procedure diagnosis: same as pre procedure dx Procedures performed: Paracentesis Primary Surgeon: Trudi Dhillon PA-C Lead Sales Consultant(s): none Anesthesia: local anesthesia Findings: Successful ultrasound guided paracentesis, removed 10.1L of clear yellow fluid. 75g of 25% albumin was given . Pt tolerated procedure well. More detailed report in PACS. Complications: none Estimated blood loss in ml's: none Specimens removed/altered: none Disposition: return to floor, stable Electronically Signed by Trudi Dhillon on 0 02/18/21 at 1002 RUST #:[id number] END OF REPORT 2021-02-17 23:52:00-00:00 [facility] ([facility] Internal Medicine Prog. Note REPORT#:[id number] REPORT STATUS: Signed DATE:02/17/21 TIME: 2351 PATIENT: RENA SINCLAIR UNIT #: [id number] ROOM/BED: [address] : 50 AGE: 70 SEX: F ATTEND: Felicita Walden MD ADM AUTHOR: Campbell Posey MD * ALL edits or amendments must be made on the [employer]/computer document * Subjective Patient reports: abdominal pain Objective General VS/I O: Vital Signs Date Temp Pulse Resp B/P B/P Mean Pulse Ox FiO2 02/17 97.5-98.2 60-67 13-18 127-160/57-71 84.7- 95.2 94-98 Last Documented: Result Date Time Pulse Ox 98 02/17 2027 B/P 127/64 02/17 2027 B/P Mean 84.7 02/17 2027 Temp 97.5 02/17 2027 Pulse 60 02/17 2027 Resp 16 02/17 2027 O2 Delivery Room air 02/17 1204 FiO2 21 02/15 2003 O2 Flow Rate 2 02/15 1418 24 hour I O ending at 0700: 02/17 0700 02/16 1900 Intake Total 250 Output Total Balance 250 Intake, Oral 250 Number Voids 1 PATIENT WEIGHT: Weight (lb): Weight (oz): Weight (kg): 94.091 Medications: Active Meds + DC'd Last 24 Hrs Aspirin 81 MG DAILY PO Atorvastatin Calcium 10 MG DAILY PO Furosemide 40 MG DAILY PO Metoprolol Tartrate 100 MG DAILY PO Rifaximin 550 MG DAILY PO Spironolactone 50 MG DAILY PO Pantoprazole 40 MG AC BK PO Albuterol Sulfate 2.5 MG RTQ4H PRN PRN NEB Physical Exam General appearance: chronically ill appe aring, alert, awake, no acute distress Head/Eyes: atraumatic, EOMI, normocephalic, PERR LA ENT: normal nose, normal pharynx, normal sinus Neck: no bruit/NL carotids, no JVD, no lymphaden opathy Cardiovascular: regular rate rhythm, no murmur Respiratory: clear to auscultation Abdomen: ascites, distended, fluid wave c/w asci baron, non-tender, no mass/ organomegaly Extremities: Extremities: no clubbing, no cyanosis, no edema Musculoskeletal: full range of motion, normal in spection, painless range of motion Neuro/VICE PRESIDENT FOR PHILANTHROPY: alert, no motor deficits Skin: no rash Lymphatics: no lymphadenopathy Results Findings/Data: Laboratory Tests 02/17/21 0538: [Embedded Image Not Available] Laboratory Tests 02/17 02/17 02/17 02/17 02/17 2127 1631 1117 0736 0538 Chemistry Sodium (137 - 145 MMOL/L) 136 L Potassium (3.5 - 5.1 MMOL/L) 3.9 Chloride (98 - 107 MMOL/L) 107 Carbon Dioxide (22 - 30 MMOL/L) 26 BUN (7 - 17 MG/DL) 27 H Creatinine (0.52 - 1.04 MG/DL) 1.10 H Glomerular Filtr Rate 49 Glucose (74 - 106 MG/DL) 131 H POC Glucose (60 - 99 MG/DL) 157 H 165 H 173 H 1 28 H Calcium (8.4 - 10.2 MG/DL) 7.9 L Lactate Dehydrogenase (120 - 246 143 UNITS/L) Laboratory Tests 02/17 0538 Hematology Hgb (11.2 - 14.9 G/DL) 7.3 L Hct (33.2 - 43.5 %) 24.4 L Diagnosis, Assessment Plan Free Text DxA P Notes Free text DxA P notes: ASSESSMENT 1. Severe anemia 2. Cirrhosis 3. Ascites PLAN Paracentesis. Continue current treatment. Electronically Signed by Campbell Posey MD on at 1654 RPT #:[id number] END OF REPORT 2021-02-17 14:31:00-00:00 [facility] ([facility] Gastroenterology Progress Note REPORT#:[id number] REPORT STATUS: Signed DATE:02/17/21 TIME: 1431 PATIENT: RENA SINCLAIR UNIT #: [id number] ROOM/BED: Z620-A : 50 AGE: 70 SEX: F ATTEND: Felicita Walden MD ADM AUTHOR: Mason Ward MD * ALL edits or amendments must be made on the el [employer]/computer document * Subjective HPI: Interval hx: Scheduled for paracentesis am CONSULTING PHYSICIAN: Mason Ward MD REASON FOR CONSULTATION: Gastrointestinal bleed. HISTORY OF PRESENT ILLNESS: The patient is a 70- year-old female who was transferred from [facility] in [facility] in [place] for severe anemia. The patient had been sent to the ER for severe anemia by her doctors and initially she was transfused 2 units of packed red blood cells. Hemoglobin went up from 6.2 to 6.8 without normal c hange, although she did have hemoccult studies done, which was negative. In view of the m further, the patient's hemoglobin did not appreciate as would b e expected. There was concern that the patient may be having some ongoing bleeding. She was transferred to [facility]. She also had a CAT scan showing a large volume ascites. She has past history of COPD, hypertension, crystal betes, history of cirrhosis, history of ascites with previous paracentesis at least every month. According to the patient, she was diagnosed with cirrhosis about a year ago and she has had fatty liver for several years. Histo ry of breast cancer in 1995. She is in remission. History of bilateral mastectomy. ALLERGIES: NO DRUG ALLERGY. FAMILY HISTORY: Noncontributory. SOCIAL HISTORY: No history of smoking or alcohol abuse. REVIEW OF SYSTEMS: A 14-poin t review of systems was normal except as documented above. Objective Physical Exam HEENT: anicteric, atraumatic, clear corn ea, EOMI, normocephalic, PERRL, PERRLA Neck: no JVD, no lymphadenopathy, no masses or s welling Cardiovascular: normal heart sounds, normal S1/S 2, regular rate rhythm, no murmur Respiratory: aerating well, clear to auscultatio n, equal breath sounds, no distress, no tenderness Abdomen: non-tender, normal bowel sounds, soft, no distention, no mass/ organomegaly, no rebound Extremities: moves all, no clubbing, no cyanosis , no edema Musculoskeletal: full range of motion, normal in spection, painless range of motion Neuro/VICE PRESIDENT FOR PHILANTHROPY: alert, oriented X 3 Skin: dry, intact Lymphatics: axilla normal, inguinal normal, neck normal, no lymphadenopathy Diagnosis, Assessment Plan Problem List/A P: 1. Severe anemia 2. Cirrhosis 3. Ascites Free Text A P: Severe anemia; No evidence of gi bleed Likely due to multiple factors ,including seques tration Ascites: schedueld for paracentesis on Thursday Cirrhosis; stable Electronically Signed by Mason Ward MD o n 02/17/21 at 1526 RPT #:[id number] END OF REPORT 2021-02-16 12:49:00-00:00 [facility] ([facility] Internal Medicine Prog. Note REPORT#:[id number] REPORT STATUS: Signed DATE:02/16/21 TIME: 1249 PATIENT: RENA SINCLAIR UNIT #: [id number] ROOM/BED: [address] : 50 AGE: 70 SEX: F ATTEND: Felicita Walden MD ADM AUTHOR: Campbell Posey MD * ALL edits or amendments must be made on the [facility]/computer document * Subjective Patient reports: SOB due to large abdomen Objective General VS/I O: Vital Signs Date Temp Pulse Resp B/P B/P Mean Pulse Ox FiO2 02/15-02/16 97.5-99.7 57-85 11-24 106-172/48-83 67.4-103.7 94-100 21 Last Documented: Result Date Time Pulse Ox 98 02/16 1133 B/P 145/83 02/16 113 B/P Mean 103.7 02/16 113 Temp 98.8 02/16 113 Pulse 61 02/16 1133 Resp 14 02/16 1133 O2 Delivery Room air 02/15 2344 FiO2 21 02/15 2003 O2 Flow Rate 2 02/15 1418 24 hour I O ending at 0700: 02/16 0700 02/15 1900 Intake Total 290.00 Output Total Balance 290.00 Intake, IV 50.00 Intake, Oral 240 Number 1 Bowel Movements Patient 94.091 kg Weight Weight Stated/Reported Measurement Method PATIENT WEIGHT: Weight (lb): Weight (oz): Weight (kg): 94.091 Medications: Active Meds + DC'd Last 24 Hrs Aspirin 81 MG DAILY PO Atorvastatin Calcium 10 MG DAILY PO Furosemide 40 MG DAILY PO Metoprolol Tartrate 100 MG DAILY PO Rifaximin 550 MG DAILY PO Spironolactone 50 MG DAILY PO Pantoprazole 40 MG AC BK PO Phytonadione 10 MG ONCE ONE IV (DC) Sodium Chloride 50 ML Albuterol Sulfate 2.5 MG RTQ4H PRN PRN NEB Ketamine HCl 0 .STK-MED ONE .ROUTE (DC) Lidocaine HCl 5 ML .STK-MED ONE IV (DC) Midazolam HCl 0 .STK-MED ONE .ROUTE (DC) Propofol 0 .STK-MED ONE .ROUTE (DC) Physical Exam General appearance: alert, awake, no acute distr ess Head/Eyes: atraumatic, EOMI, normocephalic, PERR LA ENT: normal nose, normal pharynx, normal sinus Neck: no bruit/NL carotids, no JVD, no lymphaden opathy Cardiovascular: regular rate rhythm, no murmur Respiratory: clear to auscultation Abdomen: ascites, distended, fluid wave c/w asci baron, non-tender, no mass/ organomegaly Extremities: Extremities: no clubbing, no cyanosis, no edema Musculoskeletal: full range of motion, normal in spection, painless range of motion Neuro/VICE PRESIDENT FOR PHILANTHROPY: alert, no motor deficits Skin: no rash Lymphatics: no lymphadenopathy Results Findings/Data: Laboratory Tests 02/17/21 0538: [Embedded Image Not Available] Laboratory Tests 02/17 02/17 02/16 0736 0538 2051 Chemistry Sodium (137 - 145 MMOL/L) 136 L Potassium (3.5 - 5.1 MMOL/L) 3.9 Chloride (98 - 107 MMOL/L) 107 Carbon Dioxide (22 - 30 MMOL/L) 26 BUN (7 - 17 MG/DL) 27 H Creatinine (0.52 - 1.04 MG/DL) 1.10 H Glomerular Filtr Rate 49 Glucose (74 - 106 MG/DL) 131 H POC Glucose (60 - 99 MG/DL) 128 H 201 H Calcium (8.4 - 10.2 MG/DL) 7.9 L Lactate Dehydrogenase (120 - 246 UNITS/L) 143 Laboratory Tests 02/17 0538 Hematology Hgb (11.2 - 14.9 G/DL) 7.3 L Hct (33.2 - 43.5 %) 24.4 L Diagnosis, Assessment Plan Free Text DxA P Notes Free text DxA P notes: ASSESSMENT 1. Severe anemia 2. Cirrhosis 3. Ascites PLAN Paracentesis. Continue Aspirin 81 MG DAILY PO Atorvastatin Calcium 10 MG DAILY PO Furosemide 40 MG DAILY PO Metoprolol Tartrate 100 MG DAILY PO Rifaximin 550 MG DAILY PO Spironolactone 50 MG DAILY PO Pantoprazole 40 MG AC BK PO Albuterol Sulfate 2.5 MG RTQ4H PRN PRN NEB Electronically Signed by Campbell Posey MD on at 1653 RPT #:[id number] END OF REPORT 2021-02-16 10:56:00-00:00 [facility] ([facility]) Gastroenterology Progress Note REPORT#:[id number] REPORT STATUS: Signed DATE:02/16/21 TIME: 1056 PATIENT: RENA SINCLAIR UNIT #: [id number] ROOM/BED: [address] : 50 AGE: 70 SEX: F ATTEND: Felicita Walden MD ADM AUTHOR: Mason Ward MD * ALL edits or amendments must be made on the [facility]/computer document * Subjective HPI: Interval hx: EGD and colonoscopy done yesterday and scehduled for paracentesis CONSULTING PHYSICIAN: Mason Ward MD REASON FOR CONSULTATION: Gastrointestinal bleed. HISTORY OF PRESENT ILLNESS: The patient is a 70- year-old female who was transferred from [facility] in [facility] in [place] for severe anemia. The patient had been sent to the ER for severe anemia by her doctors and initially she was transfused 2 units of packed red blood cells. Hemoglobin went up from 6.2 to 6.8 without normal c hange, although she did have hemoccult studies done, which was negative. In view of the m further, the patient's hemoglobin did not appreciate as would b e expected. There was concern that the patient may be having some ongoing bleeding. She was transferred to [facility]. She also had a CAT scan showing a large volume ascites. She has past history of COPD, hypertension, crystal betes, history of cirrhosis, history of ascites with previous paracentesis at least every month. According to the patient, she was diagnosed with cirrhosis about a year ago and she has had fatty liver for several years. Histo ry of breast cancer in 1995. She is in remission. History of bilateral mastectomy. ALLERGIES: NO DRUG ALLERGY. FAMILY HISTORY: Noncontributory. SOCIAL HISTORY: No history of smoking or alcohol abuse. REVIEW OF SYSTEMS: A 14-poin t review of systems was normal except as documented above. Objective General VS/I O: Last Documented: Result Date Time Pulse Ox 98 02/16 0811 B/P 154/72 02/16 0811 B/P Mean 99.1 02/16 0811 Temp 37.6 02/16 0811 Pulse 74 02/16 0811 Resp 11 02/16 0811 O2 Delivery Room air 02/15 2344 FiO2 21 02/15 2003 O2 Flow Rate 2 02/15 1418 24 hour I O ending at 0700: 02/16 0700 02/15 1900 Intake Total 290.00 Output Total Balance 290.00 Intake, IV 50.00 Intake, Oral 240 Number 1 Bowel Movements Patient 94.091 kg Weight Weight Stated/Reported Measurement Method PATIENT WEIGHT: Weight (lb): Weight (oz): Weight (kg): 94.091 Physical Exam General appearance: alert, awake, oriented HEENT: anicteric, atraumatic, clear corn ea, EOMI, normocephalic, PERRL, PERRLA Neck: no JVD, no lymphadenopathy, no masses or s welling Cardiovascular: normal heart sounds, normal S1/S 2, regular rate rhythm, no murmur Respiratory: aerating well, clear to auscultatio n, equal breath sounds, no distress, no tenderness Abdomen: non-tender, normal bowel sounds, soft, no distention, no mass/ organomegaly, no rebound Extremities: moves all, no clubbing, no cyanosis , no edema Musculoskeletal: full range of motion, normal in spection, painless range of motion Neuro/VICE PRESIDENT FOR PHILANTHROPY: alert, oriented X 3 Skin: dry, intact Lymphatics: axilla normal, inguinal normal, neck normal, no lymphadenopathy Diagnosis, Assessment Plan Problem List/A P: 1. Severe anemia 2. Cirrhosis 3. Ascites Free Text A P: Severe anemia; No evidence of gi bleed Likely due to multiple factors ,including seques tration Ascites: schedueld for paracentesis Cirrhosis; stable Electronically Signed by Mason Ward MD o n 02/16/21 at 1342 RUST #:[id number] END OF REPORT 2021-02-15 20:31:00-00:00 [id number] [place] [address] PATIENT NAME: RENA SINCLAIR ADMIT DATE: 02/15/21 ACCOUNT NO: [id number] ROOM NO: Z.620 AGE: 70 REPORT TYPE: CONSULTATION REPORT SEX: F ADMITTING PHYSICIAN:Briana Walden MD ATTENDING PHYSICIAN:Briana Walden MD CONSULTATION DATE: CONSULTING PHYSICIAN: Mason Ward MD REASON FOR CONSULTATION: Gastrointestinal bleed. HISTORY OF PRESENT ILLNESS: The patient is a 70- year-old female who was transferred from [facility] in [facility] in [place] for severe anemia. The patient had been sent to the ER for severe anemia by her doctors and initially she was transfused 2 units of packed red blood cells. Hemoglobin went up from 6.2 to 6.8 without normal c hange, although she did have hemoccult studies done, which was negative. In view of the m further, the patient's hemoglobin did not appreciate as would b e expected. There was concern that the patient may be having some ongoing bleeding. She was transferred to [facility]. She also had a CAT scan showing a large volume ascites. She has past history of COPD, hypertension, crystal betes, history of cirrhosis, history of ascites with previous paracentesis at least every month. According to the patient, she was diagnosed with cirrhosis about a year ago and she has had fatty liver for several years. Histo ry of breast cancer in 1995. She is in remission. History of bilateral mastectomy. ALLERGIES: NO DRUG ALLERGY. FAMILY HISTORY: Noncontributory. SOCIAL HISTORY: No history of smoking or alcohol abuse. REVIEW OF SYSTEMS: A 14-poin t review of systems was normal except as documented above. PHYSICAL EXAMINATION: GENERAL: The patient was afebrile. HEENT: Anicteric. Oropharynx was clear. NECK: Supple. No jugular venous distention. CHEST: Clear. CARDIOVASCULAR: S1, S2. ABDOMEN: Soft, was nondistended. No organomegaly . CENTRAL NERVOUS SYSTEM: Alert. LABORATORY DATA: Hemoglobin 7.7, white count 3.2 , platelets 79,000. BUN 36, creatinine 1.30. Bilirubin 1.3, AST 41, ALT 177, ALP 71. Sodium 138, potassium 4.3. INR is 1.4. PATIENT NAME: RENA SINCLAIR ACCOUNT #: [id number] ASSESSMENT AND PLAN: 1. The patient is a 70-year-old with history of chronic obstructive pulmonary disease, hypertension, diabetes, history of vijaya lcoholic steatohepatitis and cirrhosis who has severe ane bryon, possibility will include peptic ulcer disease, arteriovenous malformations, and neoplasm. The p atient will be scheduled for EGD and colonoscopy and we will review the findi ngs with the patient. 2. Ascites. The patient will be scheduled for ul trasound-guided paracentesis on this admission. Dr. Walden thanks for this consult. Dictated By: Mason Ward MD WT: CON:ELIZABET/DMITRIY/NTS Conf#: [id number]/DID#: [id number] Authenticated by Mason Ward MD On 03/17 08:28:13 PM at 2028 PATIENT NAME: RENA SINCLAIR ACCOUNT #: [id number] 2021-02-15 19:57:00-00:00 [facility] ([facility]) DT History Physical REPORT#:[id number] REPORT STATUS: Signed DATE:02/15/21 TIME: 1956 PATIENT: RENA SINCLAIR UNIT #: [id number] ROOM/BED: [address] : 50 AGE: 70 SEX: F ATTEND: Felicita Walden MD ADM AUTHOR: Briana Walden MD * ALL edits or amendments must be made on the el [facility]/computer document * History Physical History Physical Patient is a 70-year-old woman with a hi story of COPD, hypertension, diabetes, psoriatic arthritis and breast cancer th at is been in remission since 1995 and is status post bilateral mastectomy who presents here with having a low hemoglobin. The patient had been feeling weaknes s for several days and had blood test performed conside red to be routine by her PCP and then found to have a hemoglobin of 6.2 and referred to the emergenc y department at an outside facility ([facility]). They do not have GI on-call therefore the patient was transferred to us.ER R RUSSELL. 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 Medical issues morbid obesity history of bilateral mastectomy f or cancer Seen and examined in the room. Review of systems limited mobility due to morbid obesity denies acute cardiac issues or pulmonary issues appetite is good no f ainting Gen.: [] No fever no acute change in body weight All the 14 systems reviewed except for the ones mentioned above are negative Physical examination Vitals: Vital Signs Date Time Temp Pulse Resp B/P B/P Pulse O2 O2 F low FiO2 Mean Ox Delivery Rate / 1928 97.9 65 18 148/54 85.2 99 Room air 04/02 1700 98.0 64 17 159/70 99 Room air 04/02 1630 97.9 64 16 140/62 98 Room air 04/02 1600 97.8 66 15 129/56 98 Room air 04/02 1530 97.5 65 13 132/60 97 Room air 04/02 1520 97.5 64 14 148/65 99 Room air 04/02 1510 62 18 149/65 100 Room air 04/02 1500 97.5 69 24 161/66 100 Room air 04/02 1450 97.7 63 15 150/66 100 Room air 04/02 1440 97.6 62 14 172/74 100 Room air 04/02 1430 97.5 69 18 151/56 100 Room air 04/02 1418 97.7 73 14 154/68 100 Nasal 2 cannula 04/ 1300 97.9 57 18 142/52 100 Room air / 1134 97.9 62 18 126/64 84 98 Room air Constitutional: comfortable, not in pain; HEENT: Mucous membranes moist, no icterus Neck: Trachea midline, no lymphadenopathy Heart: Regular rate and rhythm; no murmurs Lungs: Air entry equal bilateral; no wheezes' bi lateral mastectomy no local recurrence of tumor Abdomen: Soft; nontender; no guarding/te nderness/rebound liver edge nonnodular Extremities: No calf tenderness; no ulcers, no b ruises moderate arthritis Neurological: Patient is awake, following comman ds can move all extremities Skin: No rash, no ulcers Limited evaluation Psychological: Not agitated Labs and Imaging reviewed Laboratory Tests: 02/15 1200 Chemistry Sodium (137 - 145 MMOL/L) 138 Potassium (3.5 - 5.1 MMOL/L) 4.3 Chloride (98 - 107 MMOL/L) 107 Carbon Dioxide (22 - 30 MMOL/L) 26 BUN (7 - 17 MG/DL) 36 H Creatinine (0.52 - 1.04 MG/DL) 1.30 H Glomerular Filtr Rate 40 Glucose (74 - 106 MG/DL) 164 H Calcium (8.4 - 10.2 MG/DL) 8.3 L Total Bilirubin (0.2 - 1.3 MG/DL) 1.3 AST (14 - 36 UNITS/L) 41 H ALT (<35 UNITS/L) 17 Total Alk Phosphatase (38 - 126 UNITS/L) 71 Total Protein (6.3 - 8.2 G/DL) 6.5 Albumin (3.5 - 5.0 G/DL) 2.6 L Coagulation INR (0.86 - 1.14) 1.4 H PT Patient/Control Mix (9.5 - 12.7) 15.7 H Hematology WBC (3.8 - 9.8 K/MM3) 3.2 L RBC (3.58 - 4.97 M/MM3) 3.32 L Hgb (11.2 - 14.9 G/DL) 7.7 L Hct (33.2 - 43.5 %) 25.5 L MCV (80.7 - 99.1 fL) 77 L MCH (27.0 - 34.1 pg) 23.2 L MCHC (32.2 - 35.7 %) 30.2 L RDW (12.1 - 15.2 %) 17.4 H Plt Count (129 - 368 K/MM3) 79 L Neut % (Auto) (43 - 75 %) 68.2 Lymph % (Auto) (14 - 44 %) 15.1 [place] % (Auto) (4 - 13 %) 13.9 H Eos % (Auto) (0 - 6 %) 1.9 Baso % (Auto) (0 - 2 %) 0.6 Neut # (Auto) (2.0 - 7.6 K/mm3) 2.16 Lymph # (Auto) (1.0 - 3.8 K/mm3) 0.48 L [place] # (Auto) (0.1 - 0.8 K/mm3) 0.44 Eos # (Auto) (0.0 - 0.2 K/mm3) 0.06 Baso # (Auto) (0.0 - 0.2 K/mm3) 0.02 Immature Gran % (0.0 - 2.0 %) 0.3 Nucleated RBC % (0 - 1.0 %) 0.0 Nucleated RBCs # (Man) (0.0 - 0.1 K/mm3) 0.00 [] Medications review [Home Medications: ATORVASTATIN (LIPITOR) 10 MG PO DAILY RIFAXIMIN (XIFAXAN) 550 MG PO DAILY METOPROLOL TARTRATE (LOPRESSOR) 100 MG PO DAILY FLUTICASONE FUROATE (ARNUITY ELLIPTA) 1 INH INH RTDAILY SPIRONOLACTONE (ALDACTONE) 50 MG PO DAILY OMEPRAZOLE ER (PriLOSEC) 40 MG PO DAILY FUROSEMIDE (LASIX) 40 MG PO DAILY ASPIRIN 81 MG PO DAILY ALBUTEROL (ALBUTEROL 2.5 MG/3 ML (75mL)) 2.5 MG NEB RTQ4H PRN PRN WHEEZING Current Medications Sig/Sailaja Start time Last Medication Dose Route Stop Time Status Admin Aspirin 81 MG DAILY 02/16 09[place] [address] Atorvastatin Calcium 10 MG DAILY 04/03 0900 AC PO 03/18 901 Furosemide 40 MG DAILY 02/16 900 AC PO 03/18 901 Metoprolol Tartrate 100 MG DAILY 02/16 900 AC PO 03/18 901 Rifaximin 550 MG DAILY 02/16 900 AC PO 02/23 901 Spironolactone 50 MG DAILY 02/16 900 AC PO 03/18 901 Pantoprazole 40 MG AC BK 02/16 0730 AC PO 03/18 07 Albuterol Sulfate 2.5 MG RTQ4H PRN PRN 02/15 18 20 AC 02/15 NEB 03/17 1821 1952 Ketamine HCl 0 .STK-MED ONE 02/15 1355 DC .ROUTE Lidocaine HCl 5 ML .STK-MED ONE 02/15 1349 DC IV Midazolam HCl 0 .STK-MED ONE 02/15 1347 DC .ROUTE Propofol 0 .STK-MED ONE 02/15 1347 DC .ROUTE ] Assessment and plan [] Severe anemia iron deficiency check indicis a nd give intravenous iron if necessary and Epogen if necessary supplemental v itamin D if indicated. Nonalcoholic cirrhosis check ammonia level and l actulose if indicated Morbid obesity diet and rest ricting caloric intake if interested will guide for change in portal pressures and future plans for TIPS IF necessary Mild coagulopathy elevated pro time/ INR given v itamin K Hyperlipidemia Lipitor check level adjus t if necessary bilateral mastectomy no recurrence follow-up by oncology Ascites imaging and paracentesis pending Electronically Signed by Briana Walden MD n 02/15/21 at 2008 RUST #:[id number] END OF REPORT 2021-02-15 13:43:00-00:00 [id number] [place] [address] PATIENT NAME: RENA SINCLAIR ADMIT DATE: 02/15/21 ACCOUNT NO: [id number] ROOM NO: Z.620 AGE: 70 REPORT TYPE: ELECTROCARDIOGRAM SEX: F ADMITTING PHYSICIAN:Briana Walden MD ATTENDING PHYSICIAN:Briana Walden MD Order: [id number] Test Reason : PREOP Test Date/Time Stamp: ThuFeb 15 2021 13:43:59 Blood Pressure : / mmHG Vent. Rate : 055 BPM Atrial Rate : 055 BPM P-R Int : 144 ms QRS Dur : 088 ms QT Int : 466 ms P-R-T Axes : 061 017 054 degree s QTc Int : 445 ms Sinus bradycardia Otherwise normal ECG No previous ECGs available Confirmed by MD ZOHREH, ELEUTERIO WELDON ([id number]) on 02/15/2021 5:39:33 PM Referred By: Briana Walden Confirmed by:RODDY NEGRETE MD at 1739 PATIENT NAME: RENA SINCLAIR ACCOUNT #: [id number] 2021-02-15 13:28:00-00:00 [id number] [place] [address] PATIENT NAME: RENA SINCLAIR ADMIT DATE: 0 02/15/21 ACCOUNT NO: [id number] ROOM NO: [facility] AGE: 70 REPORT TYPE: ENDOSCOPY REPORT SEX: F ADMITTING PHYSICIAN:Briana Walden MD ATTENDING PHYSICIAN:Briana Walden MD Endoscopy Patient Name: Rena Sinclair Procedure Date: 2020 1:28 PM Date of : 1950 Admit Type: Inpatient Age: 70 Room: Room 2 Gender: Female Attending MD: Mason Ward MD Instrument Name: [id number] Procedure: Upper GI endoscopy Indications: Iron deficiency anemia Providers: Mason Ward MD, Amber cazares RN (Nurse), Erika Parham, Machine Stemmer (Machine Stemmer) Referring MD: Self Referred Medicines: Monitored Anesthesia Care Complications: No immediate complications. Procedure: Pre-Anesthesia Assessment: - Prior to the procedure, a History and Physica l was performed, and patient medications and allergie s were reviewed. The patient's tolerance of previous a nesthesia was also reviewed. The risks and benefits of th e procedure and the sedation options and risks we re discussed with the patient. All questions were answered, and informed consent was obtained. Prior Antico agulants: The patient has taken no previous anticoagulant or antiplatelet agents. ASA Grade Assessment: III - A patient with severe systemic disease. After rev iewing the risks and benefits, the patient was deemed in satisfactory condition to undergo the procedur e. After obtaining informed consent, the endoscope was passed under direct vision. Throughout the proc edure, the patient's blood pressure, pulse, and oxygen saturations were monitored continuously. The En doscope was introduced through the mouth, and advanced to the second part of duodenum. The Endoscope was intr oduced through the mouth, and advanced to the second p art of duodenum. The upper GI endoscopy was accomplish ed without difficulty. The patient tolerated the p rocedure well. PATIENT NAME: RENA SINCLAIR ACCOUNT #: [id number] Findings: The examined esophagus was normal. Moderate portal hypertensive gastropathy was fo und in the gastric fundus. Multiple medium sessile polyps with no bleeding and no stigmata of recent bleeding were found in the gastric antru m. The examined duodenum was normal. Impression: - Normal esophagus. - Portal hypertensive gastropathy. - Multiple gastric polyps. - Normal examined duodenum. - No specimens collected. Recommendation: - COLONOSCOPY Procedure Code(s): --- Professional --- 94887, Esophagogastroduodenoscopy, flexible, tr ansoral; diagnostic, including collection of specimen(s) by brushing or washing, when performed (separate procedure) Diagnosis Code(s): --- Professional --- K76.6, Portal hypertension K31.89, Other diseases of stomach and duodenum K31.7, Polyp of stomach and duodenum D50.9, Iron deficiency anemia, unspecified CPT copyright 2018 [employer]. All rights reserved. The codes documented in this report are prelimin james and upon customer experience consultant review may be revised to meet current compliance requiremen ts. Mason Ward MD Mason Ward MD 02/15/2021 2:05:58 PM This report has been signed electronically. Number of Addenda: 0 Note Initiated On: 02/15/2021 1:28 PM Procedure Date: 02/15/2021 1:28:03 PM Estimated Blood Loss: Estimated blood loss: none. [address] [place] [address] Provation {[id number]}.pdf ProVation FT PDF at 1406 PATIENT NAME: RENA SINCLAIR ACCOUNT #: [id number] 2021-02-15 13:27:00-00:00 [id number] [place] [address] PATIENT NAME: RENA SINCLAIR ADMIT DATE: 02/15/21 ACCOUNT NO: [id number] ROOM NO: [facility] AGE: 70 REPORT TYPE: ENDOSCOPY REPORT SEX: F ADMITTING PHYSICIAN:Briana Walden MD ATTENDING PHYSICIAN:Briana Walden MD Endoscopy Patient Name: Rena Sinclair Procedure Date: 2020 1:27 PM Date of : 1950 Admit Type: Inpatient Age: 70 Room: Room 2 Gender: Female Attending MD: Mason Ward MD Instrument Name: [id number] Procedure: Colonoscopy Indications: Iron deficiency anemia Providers: Mason Ward MD, Amber cazares RN (Nurse), Erika Parham Machine Stemmer (Machine Stemmer) Referring MD: Self Referred Medicines: Monitored Anesthesia Care Complications: No immediate complications. Procedure: Pre-Anesthesia Assessment: - Prior to the procedure, a History and Physica l was performed, and patient medications and allergie s were reviewed. The patient's tolerance of previous a nesthesia was also reviewed. The risks and benefits of th e procedure and the sedation options and risks we re discussed with the patient. All questions were answered, and informed consent was obtained. Prior Antico agulants: The patient has taken no previous anticoagulant or antiplatelet agents. ASA Grade Assessment: III - A patient with severe systemic disease. After rev iewing the risks and benefits, the patient was deemed in satisfactory condition to undergo the procedure . After I obtained informed consent, the scope wa s passed under direct vision. Throughout the procedure, the patient's blood pressure, pulse, and oxygen sat urations were monitored continuously. The Colonoscope wa s introduced through the anus and advanced to the cecum, identified by the appendiceal orifice, IC valve and transillumination. The colonoscopy was performe d without difficulty. The patient tolerated the procedure well. The quality of the bowel preparation was inadeq uate. Findings: PATIENT NAME: RENA SINCLAIR ACCOUNT #: [id number] There is no endoscopic evidence of bleeding, ma ss, stenosis, stricture, ulcerations or angiodysplasia in the entire col on. Impression: - Preparation of the colon was inad equate. - No specimens collected. Recommendation: - No evidence of active gi bleed resume diet iron therapy Procedure Code(s): --- Professional --- 94657, Colonoscopy, flexible; diagnostic, inclu ding collection of specimen(s) by brushing or washin g, when performed (separate procedure) Diagnosis Code(s): --- Professional --- D50.9, Iron deficiency anemia, unspecified CPT copyright 2018 [employer]. All rights reserved. The codes documented in this report are prelimin james and upon customer experience consultant review may be revised to meet current compliance requiremen ts. Mason Ward MD Mason Ward MD 02/15/2021 2:13:28 PM This report has been signed electronically. Number of Addenda: 0 Note Initiated On: 02/15/2021 1:27 PM Procedure Date: 02/15/2021 1:27:19 PM Estimated Blood Loss: Estimated blood loss: none. [address] [place], [place] [address] Provation {[id number]}.pdf ProVation FT PDF at 1413 PATIENT NAME: RENA SINCLAIR ACCOUNT #: [id number] 2021-02-15 11:43:00-00:00 [facility] ([facility]) EMERGENCY PROVIDER REPORT REPORT#:[id number] REPORT STATUS: Signed DATE:02/15/21 TIME: 1143 PATIENT: RENA SINCLAIR UNIT #: [id number] [facility] AGE: 70 SEX: F PCP PHYS: DOES_NOT KNOW SERVICE AUTHOR: Finesse Hamilton MD LOCATION: [facility] * ALL edits or amendments must be made on the el ectronic/computer document * HPI-General Illness Free Text HPI Notes Free Text HPI Notes Patient is a 70-year-old woman with a hi story of COPD, hypertension, diabetes, psoriatic arthritis and breast cancer th at is been in remission since 1995 and is status post bilateral mastectomy who presents here with having a low hemoglobin. The patient had been feeling weaknes s for several days and had blood test performed conside red to be routine by her PCP and then found to have a hemoglobin of 6.2 and referred to the emergenc y department at an outside facility ([facility]). They do not have GI on-call therefore the patient was transferred to us. The concern was for the possibility of GI bleedi ng. The patient did receive 2 units of packed red blood cells but the hemoglobin only came back at 6.8 after the transfusions. The patient never had bright r ed blood per rectum or melanotic stool and she stat es that they checked her 3 times doing a rectal exam and each time it was negative for blood. The pat ient denies any previous history of GI bleeding. She states that that her hemoglobin was low at one point years ago after she montoya d had a bilateral mastectomy. The patient does have some mild left lower quadrant abdominal discomfo rt. CT abdomen pelvis without contrast (GFR=37) was perfor med at their facility just demonstrated large volume ascites primarily. General Initial Greet Date/Time 02/15/21 1134 Presentation Chief Complaint __ (severe anemia) Hx Obtained From Patient, EMS Sudden in Onset? No Onset Occurred Days ago (3) Location Abdomen Quality Cramping Radiation No: Does not radiate. Severity: Onset Moderate Severity: Current Moderate Associated with Denies: Cough, Fever. Associated Other Pt denies other symptoms Past Medical History - Adult Stated Complaint GI BLEED Allergies Coded Allergies: No Known Allergies (02/15/21) Physical Exam Vital Signs Vital Signs First Documented: Result Date Time Pulse Ox 98 02/15 1134 B/P 126/64 02/15 1134 B/P Mean 84 / 1134 O2 Delivery Room air 02/15 1134 Temp 36.6 02/15 1134 Pulse 62 02/15 1134 Resp 18 02/15 1134 Last Documented: Result Date Time Pulse Ox 98 / 1134 B/P 126/64 / 1134 B/P Mean 84 / 1134 O2 Delivery Room air 02/15 1134 Temp 36.6 / 1134 Pulse 62 02/15 1134 Resp 18 02/15 1134 Review of Vital Signs Reviewed Interpretation Diagnostics Lab Results Interpretation Results Laboratory Tests 02/15/21 1200: [Embedded Image Not Available] Laboratory Tests: 02/16 1200 Chemistry Sodium (137 - 145 MMOL/L) 138 Potassium (3.5 - 5.1 MMOL/L) 4.3 Chloride (98 - 107 MMOL/L) 107 Carbon Dioxide (22 - 30 MMOL/L) 26 BUN (7 - 17 MG/DL) 36 H Creatinine (0.52 - 1.04 MG/DL) 1.30 H Glomerular Filtr Rate 40 Glucose (74 - 106 MG/DL) 164 H Calcium (8.4 - 10.2 MG/DL) 8.3 L Total Bilirubin (0.2 - 1.3 MG/DL) 1.3 AST (14 - 36 UNITS/L) 41 H ALT (<35 UNITS/L) 17 Total Alk Phosphatase (38 - 126 UNITS/L) 71 Total Protein (6.3 - 8.2 G/DL) 6.5 Albumin (3.5 - 5.0 G/DL) 2.6 L Coagulation INR (0.86 - 1.14) 1.4 H PT Patient/Control Mix (9.5 - 12.7) 15.7 H Hematology WBC (3.8 - 9.8 K/MM3) 3.2 L RBC (3.58 - 4.97 M/MM3) 3.32 L Hgb (11.2 - 14.9 G/DL) 7.7 L Hct (33.2 - 43.5 %) 25.5 L MCV (80.7 - 99.1 fL) 77 L MCH (27.0 - 34.1 pg) 23.2 L MCHC (32.2 - 35.7 %) 30.2 L RDW (12.1 - 15.2 %) 17.4 H Plt Count (129 - 368 K/MM3) 79 L Neut % (Auto) (43 - 75 %) 68.2 Lymph % (Auto) (14 - 44 %) 15.1 [place] % (Auto) (4 - 13 %) 13.9 H Eos % (Auto) (0 - 6 %) 1.9 Baso % (Auto) (0 - 2 %) 0.6 Neut # (Auto) (2.0 - 7.6 K/mm3) 2.16 Lymph # (Auto) (1.0 - 3.8 K/mm3) 0.48 L [place] # (Auto) (0.1 - 0.8 K/mm3) 0.44 Eos # (Auto) (0.0 - 0.2 K/mm3) 0.06 Baso # (Auto) (0.0 - 0.2 K/mm3) 0.02 Immature Gran % (0.0 - 2.0 %) 0.3 Nucleated RBC % (0 - 1.0 %) 0.0 Nucleated RBCs # (Man) (0.0 - 0.1 K/mm3) 0.00 Patient Discharge Departure Vital Signs/Condition Vital Signs First Documented: Result Date Time Pulse Ox 98 04/ 1134 B/P 126/64 04/02 1134 B/P Mean 84 04/02 1134 O2 Delivery Room air 04/ 1134 Temp 36.6 04/02 1134 Pulse 62 04/ 1134 Resp 18 04/ 1134 Last Documented: Result Date Time Pulse Ox 98 04/02 1134 B/P 126/64 04/02 1134 B/P Mean 84 04/02 1134 O2 Delivery Room air 04/ 1134 Temp 36.6 04/02 1134 Pulse 62 04/02 1134 Resp 18 04/02 1134 All vital signs available at the time of this en try have been reviewed. Clinical Impression Clinical Impression Primary Impression: Severe anemia Disposition Decision Admit Admit Physician Name Briana Walden MD Admit Physician Hospitalist Request Time 1230 Request Date 02/15/21 )( Admission Accepts Yes )( Accepted Time 1230 )( Accepted Date 02/15/21 Call Information will see patient, agrees with eval, agrees with plan Critical Care Time Spent (minutes): 35 Services Performed Patient management by Nemesio regalado spent at bedside, Reviewing test results, Reviewing imaging, Discussing lavern ent care, Documentation in record, Time with fam/surrogate Separately billable procedures excluded from nemesio e. Patient was critically ill due to: severe anemia My treatment and management were: Discussions with multiple medical providers, jc nicole pt response to tx, inputting admitting orders Electronically Signed by Finesse Hamilton MD on 01/06 at 1659 RPT #:[id number] END OF REPORT
[2023-05-15 13:35] LABS: Absolute Lymphocytes (CBC) 0.4 K/uL (0.7-4.9); Hematocrit 17.6 % (36.0-45.0); MCV 86.7 fL (80-100); MPV 8.7 fL (7.6-11.3); RBC Red Blood Cell Count 2.03 M/uL (3.86-4.86)
--- NOTE | 2023-05-15 13:38 | RAD REPORT ---
EXAM DESCRIPTION: CT - Head Brain Wo Cont - 05/15/2023 1:18 pm CLINICAL HISTORY: Left arm weakness. COMPARISON: 2019 TECHNIQUE: Computed axial tomography of the head was obtained. IV contrast was not requested. All CT scans are performed using dose optimization technique as appropriate and may include automated exposure control or mA/KV adjustment according to patient size. FINDINGS: An intracranial bleed is not seen The ventricles are normal in caliber No extra-axial fluid collection is noted. Marked low-density areas within periventricular, deep and subcortical white matter without significan t change probably representing ischemia secondary to small vessel disease. Fluid within the sinuses/ mastoids is not seen. Mild chronic sinusitis IMPRESSION: No acute intracranial abnormality is seen If patient's symptoms persist MRI of the brain would be recommended
[2023-05-15 13:42] LABS: Albumin 3.7 g/dL (3.4-5.0); Bilirubin Total 0.6 mg/dL (0.2-1.0); Potassium 3.9 mEq/L (3.5-5.1); Protein, Total 5.9 g/dL (6.4-8.2); Troponin High Sensitivity 18.2 pg/mL (<58.9)
--- NOTE | 2023-05-15 13:50 | RAD REPORT ---
EXAM DESCRIPTION: RAD - Shoulder Left 2 View - 05/15/2023 1:41 pm CLINICAL HISTORY: Left shoulder pain FINDINGS: No fracture or dislocation is seen. The humeral head is high riding which may indicate a chronic rotator cuff tear Moderate osteoarthritis AC and glenohumeral joints mainly consisting of osteophytes and joint space n arrowing. Osteoporosis
--- NOTE | 2023-05-15 14:09 | RAD REPORT ---
EXAM DESCRIPTION: Ella Single View05/15/2023 1:59 pm CLINICAL HISTORY: Cough COMPARISON: 2020 FINDINGS: The lungs appear clear of acute infiltrate. The heart is normal size IMPRESSION: No acute abnormalities displayed
--- NOTE | 2023-05-15 14:14 | ER ---
Nurse's Notes [facility] Name: Rena Burch Age: 72 yrs Sex: Female : 1950 Arrival Date: 05/15/2023 Time: 11:48 Bed 5 Private MD: Diagnosis: Anemia in chronic kidney disease;Anemia, unspecified;GI Bleed/ Gastrointestinal hemorrhage, unspecified;Unspecified cirrhosis of liver;Pain in left shoulder;Weakness Presentation: 05/15 11:59 Chief complaint: Sent from day surgery following paracentesis, concern for left arm hb weakness x 4 days. Pt reports severe chronic left shoulder pain preventing VAN testing, and generalized weakness at baseline. Coronavirus screen: At this time, the client does not indicate any symptoms associated with coronavirus-19. Ebola Screen: No symptoms or risks identified at this time. Initial Sepsis Screen: Does the patient meet any 2 criteria? No. Patient's initial sepsis screen is negative. Does the patient have a suspected source of infection? No. Patient's initial sepsis screen is negative. Risk Assessment: Do you want to hurt yourself or someone else? Patient reports no desire to harm self or others. Onset of symptoms. 11:59 Method Of Arrival: Stretcher hb 11:59 Acuity: CHEIKH 3 hb Historical: - Allergies: 11:57 No Known Allergies; ld1 - PMHx: 11:57 COPD; Diabetes - IDDM; fatty liver; Hypertension; Psoriatic Arthritis; Paracentesis; ld1 - Immunization history:: Adult Immunizations up to date, Client reports receiving the 2nd dose of the Covid vaccine. - Social history:: Smoking status: Patient denies any tobacco usage or history of. Patient/guardian denies using alcohol. Screenin:23 [facility] ED Fall Risk Assessment (Adult) History of falling in the last 3 months, ld1 including since admission No falls in past 3 months (0 pts). Abuse screen: Denies threats or abuse. Denies injuries from another. Nutritional screening: No deficits noted. Tuberculosis screening: No symptoms or risk factors identified. Assessment: 14:23 General: Appears in no apparent distress. comfortable, Behavior is calm, cooperative, ld1 appropriate for age. Pain: Complains of pain in left shoulder Pain does not radiate. Pain currently is 8 out of 10 on a pain scale. Quality of pain is described as throbbing, Pain began 2-3 days ago. Neuro: Level of Consciousness is awake, alert, obeys commands, Oriented to person, place, time, situation. Cardiovascular: Capillary refill < 3 seconds Patient's skin is warm and dry. Respiratory: Airway is patent Respiratory effort is even, unlabored. GI: Abdomen is round non-distended. : No signs and/or symptoms were reported regarding the genitourinary system. EENT: No signs and/or symptoms were reported regarding the EENT system. Derm: No signs and/or symptoms reported regarding the dermatologic system. Musculoskeletal: No signs and/or symptoms reported regarding the musculoskeletal system. 17:00 Reassessment: Patient appears in no apparent distress at this time. Patient and/or hb family updated on plan of care and expected duration. Pain level reassessed. Patient is alert, oriented x 3, equal unlabored respirations, skin warm/dry/pink. 18:27 Reassessment: Patient appears in no apparent distress at this time. Patient and/or hb family updated on plan of care and expected duration. Pain level reassessed. Patient is alert, oriented x 3, equal unlabored respirations, skin warm/dry/pink. 18:51 Reassessment: No changes from previously documented assessment. Patient and/or family ld1 updated on plan of care and expected duration. Pain level reassessed. Patient is alert, oriented x 3, equal unlabored respirations, skin warm/dry/pink. Blood transfusion continues with EMS transportation to [facility]. Form filled out for transfer of care. Patient denies pain at this time. Vital Signs: 11:58 BP 139 / 47; Pulse 72; Resp 18; Pulse Ox 100% on R/A; Weight 86 kg; Height 5 ft. 5 in. ;ld1 13:59 Temp 98.4(O); ll1 14:23 Pulse 78; Resp 18; Pulse Ox 100% on R/A; ld1 16:35 BP 134 / 50; Pulse 70; Resp 16; Temp 97.9(TE); Pulse Ox 100% on R/A; ld1 17:06 BP 141 / 47; Pulse 73; Resp 14; Pulse Ox 100% on R/A; ld1 17:53 BP 147 / 46; Pulse 71; Resp 12; Pulse Ox 100% on R/A; ld1 18:13 BP 140 / 47; Pulse 67; Resp 12; Pulse Ox 100% on R/A; ld1 11:58 Body Mass Index 31.55 (86.00 kg, 165.1 cm) ld1 ED Course: 11:56 Patient arrived in ED. ld1 11:58 Denny Weber MD is Attending Physician. eliazar 11:59 Arm band placed on right wrist. ld1 12:01 Triage completed. hb 13:08 Troponin High Sensitivity Sent. rs5 13:08 Comprehensive Metabolic Panel Sent. rs5 13:08 CBC with Diff Sent. rs5 13:18 CT Head Brain wo Cont In Process Unspecified. EDMS 13:26 Shoulder Left (2 View) XRAY In Process Unspecified. EDMS 13:40 Notified ED physician of a critical lab result(s). HGB 5.6. ld1 13:57 initiated a transfer with Smitha from the [facility]. eb 13:59 Chest Single View XRAY In Process Unspecified. EDMS 14:08 per Smitha the pt's hemoglobin is too low for a tele bed/ pt will require an ICU bed/ eb they don't have any beds currently and will have to decline currently. they ask that we transfuse the two units of blood repeat the cbc and then try to reinitiate the transfer for a tele bed. 14:[address] Weber with LAURO Hwang from the [facility]. eb 14:22 PT-INR Sent. ld1 14:22 Packed RBC Leukored Sent. ld1 14:23 Consent for blood and/or blood product transfusion explained by staff, explained by 1 physician, signed by patient. 14:23 Patient has correct armband on for positive identification. Placed in gown. Bed in low ld1 position. Call light in reach. Side rails up X2. desk monitor on. Pulse ox on. NIBP on. Door closed. Noise minimized. Warm blanket given. 14:23 LAB Add On Sent. ld1 14:23 No provider procedures requiring assistance completed. Inserted saline lock: 20 gauge ld1 in right antecubital area, using aseptic technique. Blood collected. 15:[address] Brown from [facility] with Dr. Weber for patient transfer eb consultation. 15:34 administrative approval given by LAURO Hwang/ patient has been accepted to [facility] eb room 2118/ Dr. Marah Brown has accepted the patient in transfer/ report to be called to [phone]. 16:28 Evelyn Archer, RN is Primary Nurse. ld1 18:52 Patient transferred, IV remains in place. ld1 Administered Medications: 13:16 Drug: NS 0.9% IV 500 ml Route: IV; Rate: bolus; Site: left antecubital; ld1 14:23 Drug: Pantoprazole IVP 40 mg Route: IVP; Site: right antecubital; ld1 Medication: 18:52 VIS not applicable for this client. ld1 Outcome: 14:14 ER care complete, transfer ordered by MD. perea 18:52 Transferred by ground EMS to [facility]. ld1 18:52 Condition: stable 18:52 Instructed on the need for transfer. 18:52 Patient left the ED. ld1 Signatures: Dispatcher [employer] EDMS Denny Weber MD MD cha Baxter, Heather, RN RN Nydia Abdalla Lynsay, RN RN 1 Evelyn Archer RN RN ld1 Jacob Chowdhury 5
--- NOTE | 2023-05-15 14:14 | EDPHYS ---
Physician Documentation [facility] Name: Rena Burch Age: 72 yrs Sex: Female : 1950 Arrival Date: 05/15/2023 Time: 11:48 Bed 5 Private MD: PAVEL Physician Denny Weber HPI: 05/15 14:02 This 72 yrs old Female presents to ER via Stretcher with complaints of WEAK, eliazar LEFT SHOULDER PAIN SP PARACETESIS. 14:02 The patient or guardian complains of decreased range of motion, pain, that is acute. eliazar left shoulder. Context: The problem was sustained at an unknown site, resulted from an unknown reason, The patient experiences decreased range of motion, The patient reports no obvious deformity. Onset: The symptoms/episode began/occurred 5 day(s) ago. Modifying factors: the symptoms are alleviated by remaining still, The symptoms are aggravated by movement, rotation of arm. Associated signs and symptoms: Pertinent positives:. WEAK , SP PARACENTESIS WITH LEFT SHOULDER PAIN. Severity of symptoms: At their worst the symptoms were moderate, in the emergency department the symptoms are unchanged. The patient has experienced similar episodes in the past, several times. Historical: - Allergies: 11:57 No Known Allergies; ld1 - PMHx: 11:57 COPD; Diabetes - IDDM; fatty liver; Hypertension; Psoriatic Arthritis; Paracentesis; ld1 - Immunization history:: Adult Immunizations up to date, Client reports receiving the 2nd dose of the Covid vaccine. - Social history:: Smoking status: Patient denies any tobacco usage or history of. Patient/guardian denies using alcohol. ROS: 14:04 Constitutional: Negative for fever, chills, and weight loss, Eyes: Negative for injury, eliazar pain, redness, and discharge, ENT: Negative for injury, pain, and discharge, Neck: Negative for injury, pain, and swelling, Cardiovascular: Negative for chest pain, palpitations, and edema, Respiratory: Negative for shortness of breath, cough, wheezing, and pleuritic chest pain, Back: Negative for injury and pain, : Negative for injury, bleeding, discharge, and swelling, MS/Extremity: Negative for injury and deformity, Psych: Negative for depression, anxiety, suicide ideation, homicidal ideation, and hallucinations, Allergy/Immunology: Negative for hives, rash, and allergies, Endocrine: Negative for neck swelling, polydipsia, polyuria, polyphagia, and marked weight changes, Hematologic/Lymphatic: Negative for swollen nodes, abnormal bleeding, and unusual bruising. 14:04 Abdomen/GI: Positive for abdominal pain, black/tarry stool. 14:04 Skin: Positive for pallor. 14:04 Neuro: Positive for weakness. Exam: 14:04 Constitutional: This is a well developed, well nourished patient who is awake, alert, eliazar and in no acute distress. Head/Face: Normocephalic, atraumatic. Eyes: Pupils equal round and reactive to light, extra-ocular motions intact. Lids and lashes normal. Conjunctiva and sclera are non-icteric and not injected. Cornea within normal limits. Periorbital areas with no swelling, redness, or edema. ENT: Nares patent. No nasal discharge, no septal abnormalities noted. Tympanic membranes are normal and external auditory canals are clear. Oropharynx with no redness, swelling, or masses, exudates, or evidence of obstruction, uvula midline. Mucous membranes moist. Neck: Trachea midline, no thyromegaly or masses palpated, and no cervical lymphadenopathy. Supple, full range of motion without nuchal rigidity, or vertebral point tenderness. No Meningismus. Chest/axilla: Normal chest wall appearance and motion. Nontender with no deformity. No lesions are appreciated. Cardiovascular: Regular rate and rhythm with a normal S1 and S2. No gallops, murmurs, or rubs. Normal PMI, no JVD. No pulse deficits. Respiratory: Lungs have equal breath sounds bilaterally, clear to auscultation and percussion. No rales, rhonchi or wheezes noted. No increased work of breathing, no retractions or nasal flaring. Abdomen/GI: Soft, non-tender, with normal bowel sounds. No distension or tympany. No guarding or rebound. No evidence of tenderness throughout. MS/ Extremity: Pulses equal, no cyanosis. Neurovascular intact. Full, normal range of motion. Neuro: Awake and alert, GCS 15, oriented to person, place, time, and situation. Cranial nerves II-XII grossly intact. Motor strength 5/5 in all extremities. Sensory grossly intact. Cerebellar exam normal. Normal gait. Psych: Awake, alert, with orientation to person, place and time. Behavior, mood, and affect are within normal limits. 14:04 ECG was reviewed by the Attending Physician. 14:04 Skin: Appearance: Color: pale, Temperature: normal temperature, Moisture: normal moisture, petechiae, not noted, ecchymosis, not noted, abscess, not appreciated, cellulitis, is not appreciated. Vital Signs: 11:58 BP 139 / 47; Pulse 72; Resp 18; Pulse Ox 100% on R/A; Weight 86 kg; Height 5 ft. 5 in. ;ld1 13:59 Temp 98.4(O); ll1 14:23 Pulse 78; Resp 18; Pulse Ox 100% on R/A; ld1 16:35 BP 134 / 50; Pulse 70; Resp 16; Temp 97.9(TE); Pulse Ox 100% on R/A; ld1 17:06 BP 141 / 47; Pulse 73; Resp 14; Pulse Ox 100% on R/A; ld1 17:53 BP 147 / 46; Pulse 71; Resp 12; Pulse Ox 100% on R/A; ld1 18:13 BP 140 / 47; Pulse 67; Resp 12; Pulse Ox 100% on R/A; ld1 11:58 Body Mass Index 31.55 (86.00 kg, 165.1 cm) ld1 MDM: 11:58 Patient medically screened. [facility] 14:04 Differential diagnosis: DJD, tendonitis, gastritis, diverticulitis, hemorrhoids, eliazar hemorrhagic shock, varices. Data reviewed: vital signs, nurses notes. Consideration of Admission/Observation Escalation of care including admission/observation considered. I considered the following discharge prescriptions or medication management in the emergency department Medications were administered in the Emergency Department. See MAR. Independent interpretation of the following test(s) in the Emergency Department EKG: See my EKG interpretation above. Test considered but Not performed: CT: NO CT ABD PELVIS. External Records Reviewed: Inpatient record: LOLITA CHOW FROM DAY SURGERY. Care significantly affected by the following chronic conditions: Diabetes, Hypertension, Chronic Obstructive Pulmonary Disease, Liver Disease. 05/15 12:47 Order name: CBC with Diff [facility] 05/15 12:47 Order name: Comprehensive Metabolic Panel; Complete Time: 13:44 [facility] 05/15 12:47 Order name: Troponin High Sensitivity; Complete Time: 13:44 [facility] 05/15 13:46 Order name: Type And Screen [facility] 05/15 13:46 Order name: PT-INR [facility] 05/15 13:46 Order name: BNP [facility] 05/15 14:09 Order name: LAB Add On 05/15 14:13 Order name: Lipase [facility] 05/15 14:14 Order name: Packed RBC Leukored [facility] 05/15 12:47 Order name: Shoulder Left (2 View) XRAY; Complete Time: 14:14 [facility] 05/15 12:53 Order name: CT Head Brain wo Cont; Complete Time: 13:44 [facility] 05/15 13:46 Order name: Chest Single View XRAY; Complete Time: 14:14 [facility] 05/15 12:47 Order name: EKG; Complete Time: 12:48 [facility] 05/15 12:47 Order name: EKG - Nurse/Tech; Complete Time: 13:08 [facility] 05/15 13:46 Order name: Transfuse; Complete Time: 16:28 [facility] 05/15 13:46 Order name: IV Saline Lock - Large Bore; Complete Time: 14:23 eliazar EC:04 Rate is 76 beats/min. Rhythm is regular. QRS [place] is Normal. IA interval is prolonged eliazar at 244 msec. QRS interval is normal. QT interval is normal. No Q waves. T waves are Normal. No ST changes noted. Clinical impression: Abnormal EKG without significant change and No evidence of ischemia. Interpreted by me. Reviewed by me. Administered Medications: 13:16 Drug: NS 0.9% IV 500 ml Route: IV; Rate: bolus; Site: left antecubital; ld1 14:23 Drug: Pantoprazole IVP 40 mg Route: IVP; Site: right antecubital; ld1 Disposition Summary: 05/15/23 14:14 Transfer Ordered Transfer Location: [facility] eliazar Reason: Higher level of care eliazar Condition: Fair eliazar Problem: new eliazar Symptoms: have improved eliazar Accepting Physician: Dr. Marah Brown(05/15/23 18:52) ld1 Diagnosis - Anemia in chronic kidney disease eliazar - Anemia, unspecified eliazar - GI Bleed/ Gastrointestinal hemorrhage, unspecified eliazar - Unspecified cirrhosis of liver eliazar - Pain in left shoulder eliazar - Weakness eliazar Forms: - Medication Reconciliation Form eliazar - SBAR form eliazar Signatures: Dispatcher [employer] Denny Davenport MD MD cha Botello, Elizabeth eb Sims Evelyn, RN RN ld1 Corrections: (The following items were deleted from the chart) 15:39 14:14 TO MARIA T COMER cha 18:52 15:39 Dr. Marah nesbitt ld1
[2023-05-15 14:22] LABS: Lipase 31 U/L (13-75); NT PRO-BNP 656 pg/mL (<125)
[2023-05-15] MEDS ORDERED: NA CHLORIDE 0.9% 250 ML ONE (14:24)
[2023-05-15] MEDS ORDERED: PANTOPRAZOLE 40 MG INJ ONE (14:24)
[2023-05-15 14:33] LABS: Protime INR 1.05
[2023-05-15] MEDS ORDERED: DIPHENHYDRAMINE 50 MG/ML VIAL ONE (15:52)
[2023-05-15] MEDS ORDERED: ACETAMINOPHEN 325 MG TABLET ONE (15:52)
[2023-05-15 19:02] VITALS: O2SAT 100
[2023-05-15 19:05] VITALS: TEMP 97.9
[2023-05-15 19:10] VITALS: BP 140/47
[2023-05-15 21:58] LABS: Anisocytosis 1+; Blood Morphology Comment NOTED (NOT SEEN); Hypochromasia 1+; Ovalocytes SLIGHT; Platelet Estimate DECR; Poikilocytosis SLIGHT
--- NOTE | 2023-05-17 11:20 | EKG ---
Test Date: 2023-05-15 Test Time: 13:06:04 Guidance Consultant: SALLIE MEASUREMENT RESULTS: Intervals: Rate: 76 MN: 244 QRSD: 110 QT: 412 QTc: 463 [place]: P: MN: 244 QRS: 53 T: 73 INTERPRETIVE STATEMENTS: Sinus rhythm with 1st degree AV block Increased R/S ratio in V1, consider early transition or posterior infarct Abnormal ECG Compared to ECG 06/28/2020 23:36:35 First degree AV block now present Myocardial infarct finding now present Electronically Signed On 05-17-23 11:17:32 CDT by Stan Cai
== END 2023-05-15 18:52 | disposition short-term general hospital (02) ==
LOC: ER 11:48
PROC: 30233N1 Transfusion of Nonautologous Red Blood Cells into Peripheral Vein, Percutaneous Approach (ICD-10-PCS; principal; 2023-05-15)
DX: E11.22 Type 2 diabetes mellitus with diabetic chronic kidney disease (principal); I12.9 Hypertensive chronic kidney disease with stage 1 through stage 4 chronic kidney disease, or unspecified chronic kidney disease; N18.9 Chronic kidney disease, unspecified; D63.1 Anemia in chronic kidney disease; K74.60 Unspecified cirrhosis of liver; K92.2 Gastrointestinal hemorrhage, unspecified; M25.512 Pain in left shoulder
CPT/HCPCS: 93005; 85025; 36415; 86900; 86850; 85610; 86901; 86920 ×2; 84484; 83690; 80053; 83880; 70450; 71045; 73030; 96374; 99285; 36430; J1200; C9113; P9016 ×2; J7050

== ENCOUNTER 2023-06-14 09:01 | Emergency (ER) | payer OTHER, BC ==
--- OUTSIDE RECORDS SUMMARY | 2023-06-14 09:38 | XMS REPORT | Continuity of Care Document ---
:[address] [facility] t Address [address] [place] [address] Care Team Providers Name Role Phone Jacek Ledesma DO Primary Care Physician [phone] Jacek Ledesma Attending Clinician Unavailable Stephan Powell Attending Clinician Unavailable Lorenzo DOVER, Nabeel Attending Clinician Sharron Abdul MD, I. Attending Clinician YOANDY FARR Attending Clinician Unavailable JHON MCKAY Attending Clinician Unavailable Rufino Edwards RN Attending Clinician Unavailable CRISTOFER SMILEY Attending Clinician Unavailable Vanessa Bryant MA Attending Clinician Unavailable Emy Watt MA Attending Clinician Unavailable Isis Ortiz Attending Clinician Unavailable MARZENA Attending Clinician Unavailable SAMIRA SUNG Attending Clinician Unavailable AKASH LI Attending Clinician Unavailable MD BRITTNI LINK Attending Clinician Unavailable BRITTNI LINK Attending Clinician Unavailable MD CRISTOFER SMILEY Attending Clinician Unavailable CATRACHO THORNTON Attending Clinician Unavailable Catracho Thornton MD Attending Clinician [facility], [facility] Lab Main Attending Clinician Unavailable Dez Abrams MD Attending Clinician 1, [facility] Infusion Chair Attending Clinician Unavailable 1, [facility] Infusion Nurse Attending Clinician Unavailable Doctor Unassigned, [place] Attending Clinician Unavailable 2, [facility] Lab Attending Clinician Unavailable MAVIS HERNANDEZ Attending Clinician Unavailable David MANAGER AGENCY, Mavis Pruitt Attending Clinician Khris RN, Katlin Attending Clinician Unavailable Devin MARINA, Jade Gutierrez Attending Clinician Hudson Tello Attending Clinician Fausto Zuñiga MD Attending Clinician FAUSTO ZUÑIGA Attending Clinician Unavailable MANISH ESPINOSA Attending Clinician Unavailable HARRISON SHARMA Admitting Clinician Unavailable MARZENA Admitting Clinician Unavailable AKASH LI Admitting Clinician Unavailable MD BRITTNI LINK Admitting Clinician Unavailable MD CRISTOFER SMILEY Admitting Clinician Unavailable CATRACHO THORNTON Admitting Clinician Unavailable AMBER NUNEZ Admitting Clinician Unavailable Fausto Zuñiga MD Admitting Clinician FAUSTO ZUÑIGA Admitting Clinician Unavailable KARAN TORO Admitting Clinician Unavailable Payers Payer Name Policy Type Policy Number Effective Date Expiration Date [facility] MEDICARE A B [id number] 2015 00:00:00 BCBS FED [id number] 2003 00:00:00 Blue Cross Blue C1 [id number] 2003 [facility] [employer] [facility] [place] 00:00:00 - [facility] MEDICARE MB [id number] 2015 [facility] NOVITAS 00:00:00 - [facility] MEDICARE MB [id number] 2015 [facility] NOVITAS 00:00:00 - [facility] Blue Cross Blue C1 [id number] 2003 [facility] [employer] [facility] [place] 00:00:00 - [facility] MEDICARE MB [id number] 2015 [facility] NOVITAS 00:00:00 - [facility] Blue Cross Blue C1 [id number] 2003 [facility] [employer] [facility] [place] 00:00:00 - [facility] Blue Cross Blue C1 [id number] 2003 [facility] [employer] [place] 00:00:00 - [facility] MEDICARE MB [id number] 2015 [facility] NOVITAS 00:00:00 - [facility] MEDICARE MB [id number] 2015 [facility] NOVITAS 00:00:00 - [facility] Blue Cross Blue C1 [id number] 2003 [facility] [employer] [facility] [place] 00:00:00 - [facility] MEDICARE PART A [id number] 2015 \\T\\ B 00:00:00 BCBS FED SELECT [id number] 2003 00:00:00 Problems Condition Condition Condition Status [...] 2020-11 Overview: Method i transplant transplant 11-[address] candidate candidate 00:00: g of this H ospita 00 note l might be different from the original. 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 08-12 athy athy 00:00: Hospita 00 l Hypertensi Hypertensi Disease Active U nivers ve ve 4-07 [place] emergency [place] [facility] [place] Transient Transient Disease Active Uni vers confusion confusion 4-06 ity of 00:00: [place] [address] Medical Branch COPD COPD Disease Recurre 2018-[address] ([facility]ronic (chronic nce 0[facility]31 [facility] obstruct[facility] obstructiv 00:00: Me dical e e 00 Center pulmonary pulmonary disease) disease) Cirrhosis Cirrhosis Disease Recurre 2018-[address] [facility] liver of liver nce 0-30 [facility] with with 00:00: Medical ascites ascites 00 Center Shoulder Shoulder Disease Active Unive rs bursitis bursitis 04-24 ity of 00:00: [place] [address] Medical Branch Encounter Encounter Disease Active Overview: Univers for for 04-24 Formattin ity of screening screening 00:00: [place] of [place] for for 00 note Medical osteoporos osteoporos might be Branch is is different from the original. 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 - CHI stage 3B disease St (disorder) [facility] [id number] GERD Problem Common without Spirit esophagiti - [facility] s [facility] Ascites Other Problem Common ascites [facility] [id number] LEE Problem Common (nonalcoho Spirit lic [facility] steatohepa [facility] [id number] Essential Problem Comm on (primary) Spirit hypertensi - CHI on [facility] [id number] Mixed Problem Common hyperlipid Spirit emia [facility] [id number] Gastric Problem Common polyp [facility] [id number] Portal Problem Common hypertensi Spirit on [facility] [id number] Solitary Problem Comm on lung Spirit nodule [facility] [id number] Psoriatic Problem Com mon arthritis [facility] [id number] Chest Problem Common congestion [facility] [id number] Other Problem Common obesity Spirit due to - CHI excess [id number] Cerebral Problem Commo n atheroscle Spirit rosis [facility] [id number] Non-season Problem Com mon al Spirit allergic - [facility], [facility] [id number] Thrombocyt Problem Co mmon openia [facility] Oesophagea Secondary Problem Co mmon l varices esophageal Spi rit without varices - CHI bleeding without bleeding [facility] [id number] Nasal Problem Common congestion [facility] [id number] Cough Problem Common [facility] [id number] Upper Problem Common respirator Spirit y tract - [facility] [id number] Body mass Problem Com mon index Spirit [BMI] - CHI 34.0-34.9, [facility] Allergies, Adverse Reactions, Alerts Allergy Allergy Status Severity Reaction(s) Onset Inactive Treating Comm ents Source Name Type Date Date Clinician No Known DA Active [facility] Allergie 02-15 [facility] 00:00: [address] No Known DA Active U [facility] Allergie 02-15 [facility] 00:00: [address] NO KNOWN Drug Active Univers ALLERGIE Class [facility] NO KNOWN Allergy Active [facility] ALLERGIE S Family History Family Member Diagnosis Comments Start Date Stop Date Source Natural brother Diabetes [facility] Maternal grandmother Diabetes [facility] Natural mother Diabetes [facility] Natural sister Diabetes [facility] Social History Social Habit Start Date Stop Date Quantity Comments [facility] Dr[facility] Medica l Center History SDOH [facility] Alcohol Binge Medical [address] [facility] History of Tobacco [facility] - Use [facility] Exposure to Not sure University of SARS-CoV-2 (event) [facility] Gender identity [facility] Sexual orientation Method ist Hospital Alcohol intake 2023-05-28 2023-05-28 Ex-drinker [facility] 00:00:00 00:00:00 (finding) Hospital History of Social 2023-05-28 2023-05-[address] function 00:00:00 00:00:00 Hospital Tobacco use and 2021-08-12 2021-08-12 Smokeless [facility] exposure 00:00:00 00:00:00 tobacco non-user Hospital History SDOH 2019-09-14 2019-09-[address] [facility] Alcohol Frequency 00:00:00 00:00:00 [facility] Center Sex Assigned At [birth year] [facility] 00:00:00 00:00:00 Hospital Smoking Status Start Date Stop Date Source Never Smoker [facility] Medications Ordered Filled Start Stop Current Ordering Indication Dosage Frequency Signature Comments Components Source Medication Medication Date Date Medication? Clinician (SIG) Name Name Augmentin Augmentin 2021- No 1{table Augmentin 500-125 MG 500-125 MG 05-21 t} 500-125 MG 00:00: 00:00 00 :00 Augmentin Augmentin 2022-0 2022- No 1{table Augmentin 500-125 MG 500-125 MG 05-21 t} 500-125 MG 00:00: 00:00 00 :00 metoprolol 2022-0 Yes 100mg Q.5D Take 100 Me thodi tartrate 3-[address] (LOPRESSOR) 09:22: mouth 2 Hos john 100 mg 19 (two) l tablet times a day. lactulose 2-0 Yes Q.[id number] Take by Methodi 10 gram/15 3-[id number] mL (15 mL) 09:22: 3D (three) Hosp tracey solution 19 times a l day. riFAXimin 2022-0 Yes 550mg Q.5D Take 550 Met hodi (XIFAXAN) 3-[address] 550 mg 09:22: mouth 2 Hospita tablet 19 (two) l times a day. FUROSEMIDE 2-0 Yes 40mg Q.5D Take 40 mg M ethodi ORAL 3-[address] 09:22: (two) Hospita 19 times a l day. eplerenone 2-0 Yes 25mg QD Take 25 mg M ethodi (INSPRA) 25 3-[address] MG tablet 09:22: daily. Hospit a 19 l omeprazole 2-0 Yes 40mg QD Take 40 mg M ethodi (PriLOSEC) 3-[address] 40 MG 09:22: daily. Hospita capsule 19 l atorvastati 2-0 Yes 10mg QD Take 10 mg Methodi n (LIPITOR) 3-[address] 10 mg 09:22: daily. Hospita tablet 19 l FERROUS 2022-0 Yes 65mg Q.5D Take 65 mg Meth kiran SULFATE 3-[address] ORAL 09:22: (two) Hospita 19 times a l day. aspirin 2022-0 Yes 81mg QD Take 81 mg Meth kiran (ECOTRIN) 3-[address] 81 MG 09:22: daily. Hospita enteric 19 l coated tablet levocetiriz 2022-0 Yes 5mg QD Take 5 mg M ethodi ine 3-[address] dihydrochlo 09:22: daily. Hosp tracey ride (XYZAL 19 l ORAL) albuterol 2021-0 Yes 2{puff} Q6H Inhale 2 M ethodi (PROAIR 3-[address] HFA) 90 09:22: every 6 Hospita mcg/actuati 19 (six) l on inhaler hours as needed for wheezing. amLODIPine 2021-0 Yes 5mg QD Take 5 mg Me thodi (NORVASC) 5 3-[address] mg tablet 09:22: daily. Hospit a 19 l metoprolol 2021-0 Yes 100mg Q.5D Take 100 Me thodi tartrate 3-[address] (LOPRESSOR) 09:22: mouth 2 Hos john 100 mg 19 (two) l tablet times a day. lactulose 2021-0 Yes Q.[id number] Take by Methodi 10 gram/15 3-[id number] mL (15 mL) 09:22: [...] 09:22: daily. Hospit a 19 l omeprazole 2021-0 Yes 40mg QD Take 40 mg M ethodi (PriLOSEC) 3-[address] 40 MG 09:22: daily. Hospita capsule 19 l atorvastati 2021-0 Yes 10mg QD Take 10 mg Methodi n (LIPITOR) 3-[address] 10 mg 09:22: daily. Hospita tablet 19 l FERROUS 2-0 Yes 65mg Q.5D Take 65 mg Meth kiran SULFATE 3-[address] ORAL 09:22: (two) Hospita 19 times a l day. aspirin 2022-0 Yes 81mg QD Take 81 mg Meth [...] inhaler hours as needed for wheezing. amLODIPine Yes 5mg QD Take 5 mg Me [...] MG/3ML MG/3ML 00:00: 1.25 00 MG/3ML albumin 2020-2020- No [id number] 50g Univ ers (ALBUMINAR 7- 07-13 ity of 25%) 25 % 14:30: 02:29 [place] injection 00 :00 Medical 50 g Branch albumin 2020- No [id number] 50g Univ ers (ALBUMINAR 05-27 ity of 25%) 25 % 14:30: 14:50 [place] injection 00 :00 Medical 50 g Branch albumin 2020- No [id number] 50g 50 g, IV Univers (ALBUMINAR 05-27 Infusion, ity of 25%) 25 % 14:30: 14:50 ONCE, 1 [place] injection [place] :[place] dose, Mon Medic al 50 g 05/27/21 at Branch 0930, 200 mL
Gabrielle cation: LARGE VOLUME PARACENTES IS IN CIRRHOSIS (>5L) albumin 2020- No [id number] 37.5g Uni vers (ALBUMINAR 05-02 ity of 25%) 25 % 15:11: 15:22 [place] injection 00 :00 Medical 37.5 g Branch albumin 2020- No [id number] 37.5g 37.5 g, IV Univers (ALBUMINAR 05-02 Infusion, ity of 25%) 25 % 15:11: 15:22 [place]CE, 1 [place] injection [place] :[place] dose, Kiersten Medic al 37.5 g 05/02/21 at Branch 1015, 150 mL
Gabrielle cation: LARGE VOLUME PARACENTES IS IN CIRRHOSIS (>5L) albumin 2020- No [id number] 50g Univ ers (ALBUMINAR 03-28 ity of 25%) 25 % 15:51: 16:03 [place] injection 00 :00 Medical 50 g Branch albumin 2020- No [id number] 50g 50 g, IV Univers (ALBUMINAR 03-28 Infusion, ity of 25%) 25 % 15:51: 16:03 ONCE, 1 [place] injection 00 :[place] dose, Kiersten Medic al 50 g 03/28/21 at Branch 1100, 200 mL
Gabrielle cation: LARGE VOLUME PARACENTES IS IN CIRRHOSIS (>5L)
C omments: Ascites removal albumin 2020- No [id number] 12.5g Univ ers (ALBUMINAR 16 16 ity of 25%) 25 % 17:15: 17:24 [place] injection 00 :00 Medical 12.5 g Branch albumin 2020- No [id number] 12.5g 12.5 g, IV Univers (ALBUMINAR 01-2916 Infusion, ity of 25%) 25 % 17:15: [...] PRN, [place] injection 03 Starting Medica l 11/19/20 Branch at 1331, Until Discontinu ed albumin 2019-11- No IV Univers (ALBUMINAR 210-22 Infusion, ity of 25%) 25 % 19:56: 20:19 PRN, [place] injection 00 :00 Starting Medica l Mon Branch 10/22/20 at 1356, Until Discontinu ed lidocaine 2019-11- No PRN, Univers 1% (PF) 2- Starting ity of (XYLOCAINE) 19:54: 19:54 Mon [place] injection 00 :00 10/22/20 at [facility] 1354, Branch Until Discontinu ed, Routine hydralAZINE 2019- No 10mg 10 mg, Uni vers (APRESOLINE 02-24 Intravenou i ty of ) injection 13:00: 12:40 s, ONCE, 1 [place] 10 mg 00 :00 dose, Sat Medical 02/25/20 at Branch 0800, Routine metFORMIN 2020-0 Yes [id number] 500mg Take 1 Univers 500 mg 4-11 tablet by ity of tablet 00:00: mouth (two) Medical times Branch daily with meals. metFORMIN 2020-0 Yes [id number] 500mg Take 1 Univers 500 mg 4-11 tablet by ity of tablet 00:00: mouth (two) Medical times Branch daily with meals. metFORMIN 2020-0 Yes [id number] 500mg Take 1 Univers 500 mg 4-11 tablet by ity of tablet 00:00: mouth (two) Medical times Branch daily with meals. metFORMIN 2020-0 Yes [id number] 500mg Take 1 Univers 500 mg 4-11 tablet by ity of tablet 00:00: mouth (two) Medical times Branch daily with meals. metFORMIN 2020-0 Yes [id number] 500mg Take 1 Univers 500 mg 4-11 tablet by ity of tablet 00:00: mouth (two) Medical times Branch daily with meals. metFORMIN 2020-0 Yes [id number] 500mg Take 1 Univers 500 mg 4-11 tablet by ity of tablet 00:00: mouth (two) Medical times Branch daily with meals. metFORMIN 2020-0 Yes [id number] 500mg Take 1 Univers 500 mg 4-11 tablet by ity of tablet 00:00: mouth (two) Medical times Branch daily with meals. metFORMIN 2020-0 Yes [id number] 500mg Take 1 Univers 500 mg 4-11 tablet by ity of tablet 00:00: mouth [place] (two) Medical times Branch daily with meals. metFORMIN 2020-0 Yes [id number] 500mg Take 1 Univers 500 mg 4-11 tablet by ity of tablet 00:00: mouth (two) Medical times Branch daily with meals. metFORMIN 2020-0 Yes [id number] 500mg Take 1 Univers 500 mg 4-11 tablet by ity of tablet 00:00: mouth [place] (two) Medical times Branch daily with meals. metFORMIN 2020-0 Yes [id number] 500mg Take 1 Univers 500 mg 4-11 tablet by ity of tablet 00:00: mouth [place] (two) Medical times Branch daily with meals. metFORMIN 2020-0 Yes [id number] 500mg Take 1 Univers 500 mg 4-11 tablet by ity of tablet 00:00: mouth (two) Medical times Branch daily with meals. metFORMIN 2020-0 Yes [id number] 500mg Take 1 Univers 500 mg 4-11 tablet by ity of tablet 00:00: mouth (two) Medical times Branch daily with meals. metFORMIN 2020-0 Yes [id number] 500mg Take 1 Univers 500 mg 4-11 tablet by ity of tablet 00:00: mouth (two) Medical times Branch daily with meals. metFORMIN 2020-0 Yes [id number] 500mg Take 1 Univers 500 mg 4-11 tablet by ity of tablet 00:00: mouth (two) Medical times Branch daily with meals. metFORMIN 2020-0 Yes [id number] 500mg Take 1 Univers 500 mg 4-11 tablet by ity of tablet 00:00: mouth (two) Medical times Branch daily with meals. metFORMIN 2020-0 Yes [id number] 500mg Take 1 Univers 500 mg 4-11 tablet by ity of tablet 00:00: mouth (two) Medical times Branch daily with meals. metFORMIN 2020-0 Yes [id number] 500mg Take 1 Univers 500 mg 4-11 tablet by ity of tablet 00:00: mouth (two) Medical times Branch daily with meals. metFORMIN 2020-0 Yes [id number] 500mg Take 1 Univers 500 mg 4-11 tablet by ity of tablet 00:00: mouth (two) Medical times Branch daily with meals. metFORMIN 2020-0 Yes [id number] 500mg Take 1 Univers 500 mg 4-11 tablet by ity of tablet 00:00: mouth (two) Medical times Branch daily with meals. metFORMIN 2020-0 Yes [id number] 500mg Take 1 Univers 500 mg 4-11 tablet by ity of tablet 00:00: mouth (two) Medical times Branch daily with meals. metFORMIN 2020-0 Yes [id number] 500mg Take 1 Univers 500 mg 4-11 tablet by ity of tablet 00:00: mouth (two) Medical times Branch daily with meals. metFORMIN 2020-0 Yes [id number] 500mg Take 1 Univers 500 mg 4-11 tablet by ity of tablet 00:00: mouth (two) Medical times Branch daily with meals. metFORMIN 2020-0 Yes [id number] 500mg Take 1 Univers 500 mg 4-11 tablet by ity of tablet 00:00: mouth 2 [place] 00 (two) Medical times Branch daily with meals. metFORMIN 2020-0 Yes [id number] 500mg Take 1 Univers 500 mg 4-11 tablet by ity of tablet 00:00: mouth 2 [place] 00 (two) Medical times Branch daily with meals. metFORMIN 2020-0 Yes [id number] 500mg Take 1 Univers 500 mg 4-11 tablet by ity of tablet 00:00: mouth 2 [place] 00 (two) Medical times Branch daily with meals. metFORMIN 2020-0 Yes [id number] 500mg Take 1 Univers 500 mg 4-11 tablet by ity of tablet 00:00: mouth 2 [place] 00 (two) Medical times Branch daily with meals. cephALEXin 2019-0 2020- No [id number] 500mg Take 1 Univers 500 mg 4-11 -19 capsule by ity of capsule 00:00: 04:59 mouth 2 [place] 00 :00 (two) Medical times Branch daily for 7 days. amLODIPine 2020-0 2020- No [id number] 10mg Take 1 Univers 10 mg 4-09 05-10 9104 tablet by ity of tablet 00:00: 04:59 mouth [place] 00 :00 daily for Medical 30 days. Branch amLODIPine 2020-0 2020- No [id number] 10mg Take 1 Univers 10 mg 4-09 05-10 9104 tablet by ity of tablet 00:00: 04:59 mouth [place] 00 :00 daily for Medical 30 days. Branch amLODIPine 2020-0 2020- No [id number] 10mg Take 1 Univers 10 mg 4-09 05-10 9104 tablet by ity of tablet 00:00: 04:59 mouth [place] 00 :00 daily for Medical 30 days. Branch amLODIPine 2020-0 2020- No [id number] 10mg Take 1 Univers 10 mg 4-09 05-10 9104 tablet by ity of tablet 00:00: 04:59 mouth [place] 00 :00 daily for Medical 30 days. Branch montelukast 2020-0 Yes 10mg Take 10 mg Univers 10 mg 4-08 by mouth ity of tablet 16:30: daily. [address] cetirizine 2020-0 Yes 10mg Take 10 mg U nivers (ZYRTEC) 10 4-08 by mouth ity of mg tablet 16:30: daily. [place] [address] Medical Branch albuterol-i 2020-0 Yes 1{puff} Inhale [...] by ity of capsule 16:30: mouth at [place] [address] bedtime. Medical Branch ferrous 2020-0 Yes 325mg Take 325 Unive rs sulfate 325 4-08 mg by ity of mg (65 mg 16:30: mouth 3 [place] iron) 32 (three) Medical tablet times Ethel daily with meals. metoprolol 2020-0 Yes 100mg Take 100 Un aileen tartrate 4-08 mg by ity of (LOPRESSOR) 16:30: mouth 2 Dimitrios as 50 mg 32 (two) Medical tablet times Ethel daily. fexofenadin 2020-0 Yes 180mg Take 180 [...] by mouth ity of capsule 16:30: daily. [place] [address] Medical Branch DULoxetine 2020-0 Yes 30mg Take 30 mg U nivers 30 mg 4-08 by mouth ity of capsule 16:30: daily. [place] [address] Medical Branch hydroCHLORO 2020-0 Yes 12.5mg Take 12.5 Univers thiazide 4-08 mg by ity of 12.5 mg 16:30: mouth [place] capsule 32 daily. Medical Branch montelukast 2020-0 Yes 10mg Take 10 mg Univers 10 mg 4-08 by mouth ity of tablet 16:30: daily. [place] [address] Medical Branch cetirizine 2020-0 Yes 10mg Take 10 mg U nivers (ZYRTEC) 10 4-08 by mouth ity of mg tablet 16:30: daily. [place] [address] Medical Branch albuterol-i 2020-0 Yes 1{puff} Inhale 1 Univers pratropium 4-08 Puff as ity of 20-100 16:30: needed for [facility] [place] [facility]/actuati 32 Wheezing Medi janett on inhaler or Branch Shortness of Breath. spironolact 2020-0 Yes 25mg Take 25 mg Univers one 25 mg 4-08 by mouth 2 ity of tablet 16:30: (two) [place] 32 times Medical daily. Branch gabapentin 2020-0 Yes 100mg Take 100 Un aileen 100 mg 4-08 mg by ity of capsule 16:30: mouth at [place] [address] bedtime. Medical Branch ferrous 2020-0 Yes 325mg [...] by mouth ity of capsule 16:30: daily. [place] [address] Medical Branch DULoxetine 2020-0 Yes 30mg Take 30 mg U nivers 30 mg 4-08 by mouth ity of capsule 16:30: daily. [place] [address] Medical Branch hydroCHLORO 2020-0 Yes 12.5mg Take 12.5 Univers thiazide 4-08 mg by ity of 12.5 mg 16:30: mouth [place] capsule 32 daily. Medical Branch montelukast 2020-0 Yes 10mg Take 10 mg Univers 10 mg 4-08 by mouth ity of tablet 16:30: daily. [place] [address] Medical Branch cetirizine 2020-0 Yes 10mg Take 10 mg U nivers (ZYRTEC) 10 4-08 by mouth ity of mg tablet 16:30: daily. [place] [address] Medical Branch albuterol-i 2020-0 Yes 1{puff} Inhale 1 Univers pratropium 4-08 Puff as ity of 20-100 16:30: needed for [facility] [place] [facility] Wheezing Medi janett on inhaler or Branch Shortness of Breath. spironolact 2020-0 Yes 25mg Take 25 mg Univers one 25 mg 4-08 by mouth 2 ity of tablet 16:30: (two) [place] [address] times Medical daily. Branch gabapentin 2020-0 Yes 100mg Take 100 Un aileen 100 mg 4-08 mg by ity of capsule 16:30: mouth at [place] [address] bedtime. Medical Branch ferrous 2020-0 Yes 325mg Take 325 Unive rs sulfate 325 4-08 mg by ity of mg (65 mg 16:30: mouth 3 [place] iron) 32 (three) Medical tablet times Ethel daily with meals. metoprolol 2020-0 Yes 100mg Take 100 Un aileen tartrate 4-08 mg by ity of (LOPRESSOR) 16:30: mouth 2 Dimit[place] as 50 mg 32 (two) Medical tablet times Ethel daily. fexofenadin 2020-0 Yes 180mg Take 180 [...] by mouth ity of capsule 16:30: daily. [address] Branch DULoxetine 2020-0 Yes 30mg Take 30 mg U nivers 30 mg 4-08 by mouth ity of capsule 16:30: daily. [place] [address] Medical Branch hydroCHLORO 2020-0 Yes 12.5mg Take 12.5 Univers thiazide 4-08 mg by ity of 12.5 mg 16:30: mouth [place] capsule 32 daily. Medical Branch montelukast 2020-0 Yes 10mg Take 10 mg Univers 10 mg 4-08 by mouth ity of tablet 16:30: daily. [address] Branch cetirizine 2020-0 Yes 10mg Take 10 mg U nivers (ZYRTEC) 10 4-08 by mouth ity of mg tablet 16:30: daily. [place] [address] Medical Branch albuterol-i 2020-0 Yes 1{puff} Inhale [...] by ity of capsule 16:30: mouth at [place] [address] bedtime. Medical Branch ferrous 2020-0 Yes 325mg Take 325 Unive rs sulfate 325 4-08 mg by ity of mg (65 mg 16:30: mouth 3 [place] iron) 32 (three) Medical tablet times Ethel daily with meals. metoprolol 2020-0 Yes 100mg Take 100 Un aileen tartrate 4-08 mg by ity of (LOPRESSOR) 16:30: mouth 2 Dimitrios as 50 mg 32 (two) Medical tablet times [place] daily. fexofenadin 2020-0 Yes 180mg Take 180 [...] by mouth ity of capsule 16:30: daily. [address] Branch DULoxetine 2019-0 Yes 30mg Take 30 mg U nivers 30 mg 4-08 by mouth ity of capsule 16:30: daily. [address] Branch hydroCHLORO 2020-0 Yes 12.5mg Take 12.5 [facility] thiazide 4-08 mg by ity of 12.5 mg 16:30: mouth [place] capsule 32 daily. Medical Branch montelukast 2020-0 Yes 10mg Take 10 mg [facility] 10 mg 4-08 by mouth ity of tablet 16:30: daily. [address] Branch cetirizine 2020-0 Yes 10mg Take 10 mg U nivers (ZYRTEC) 10 4-08 by mouth ity of mg tablet 16:30: daily. [place] [address] Medical Branch albuterol-i 2019-0 Yes 1{puff} Inhale [...] by ity of capsule 16:30: mouth at [place] [address] bedtime. Medical Branch ferrous 2020-0 Yes 325mg Take 325 Unive rs sulfate 325 4-08 mg by ity of mg (65 mg 16:30: mouth 3 [place] iron) 32 (three) Medical tablet times Branch daily with meals. metoprolol 2020-0 Yes 100mg Take 100 Un aileen tartrate 4-08 mg by ity of (LOPRESSOR) 16:30: mouth 2 Dimitrios as 50 mg 32 (two) Medical tablet times [place] daily. fexofenadin 2020-0 Yes 180mg Take 180 [...] by mouth ity of capsule 16:30: daily. [place] [address] [facility] Branch DULoxetine 2020-0 Yes 30mg Take 30 mg U nivers 30 mg 4-08 by mouth ity of capsule 16:30: daily. [place] [address] [facility] Branch hydroCHLORO 2020-0 Yes 12.5mg Take 12.5 [facility] thiazide 4-08 mg by ity of 12.5 mg 16:30: mouth [place] capsule 32 daily. Medical Branch montelukast 2020-0 Yes 10mg Take 10 mg [facility] 10 mg 4-08 by mouth ity of tablet 16:30: daily. [place] [address] [facility] Branch cetirizine 2020-0 Yes 10mg Take 10 mg U nivers (ZYRTEC) 10 4-08 by mouth ity of mg tablet 16:30: daily. [place] [address] Medical Branch albuterol-i 2020-0 Yes 1{puff} Inhale [...] by ity of capsule 16:30: mouth at [place] [address] bedtime. Medical Branch ferrous 2020-0 Yes 325mg Take 325 Unive rs sulfate 325 4-08 mg by ity of mg (65 mg 16:30: mouth 3 [place] iron) 32 (three) Medical tablet times Ethel daily with meals. metoprolol 2020-0 Yes 100mg [...] by mouth ity of capsule 16:30: daily. [place] [address] [facility] Branch DULoxetine 2020-0 Yes 30mg Take 30 mg U nivers 30 mg 4-08 by mouth ity of capsule 16:30: daily. [place] [address] [facility] Branch hydroCHLORO 2020-0 Yes 12.5mg Take 12.5 [facility] thiazide 4-08 mg by ity of 12.5 mg 16:30: mouth [place] capsule 32 daily. Medical Branch montelukast 2020-0 Yes 10mg Take 10 mg [facility] 10 mg 4-08 by mouth ity of tablet 16:30: daily. [place] [address] Medical Branch cetirizine 2020-0 Yes 10mg Take 10 mg U nivers (ZYRTEC) 10 4-08 by mouth ity of mg tablet 16:30: daily. [place] [address] Medical Branch albuterol-i 2020-0 Yes 1{puff} Inhale 1 [facility] pratropium 4-08 Puff as ity of 20-100 16:30: needed for [facility] [place] [facility]/actuati Wheezing Medi janett on inhaler or Branch Shortness of Breath. spironolact 2020-0 Yes 25mg Take 25 mg [facility] one 25 mg 4-08 by mouth 2 ity of tablet 16:30: (two) [place] [address] times Medical daily. Branch gabapentin 2020-0 Yes 100mg Take 100 Un aileen 100 mg 4-08 mg by ity of capsule 16:30: mouth at [place] [address] bedtime. Medical Branch ferrous 2020-0 Yes 325mg [...] by mouth ity of capsule 16:30: daily. [place] [address] Medical Branch DULoxetine 2020-0 Yes 30mg Take 30 mg U nivers 30 mg 4-08 by mouth ity of capsule 16:30: daily. [place] [address] Medical Branch hydroCHLORO 2020-0 Yes 12.5mg Take 12.5 [facility] thiazide 4-08 mg by ity of 12.5 mg 16:30: mouth [place] capsule 32 daily. Medical Branch montelukast 2020-0 Yes 10mg Take 10 mg [facility] 10 mg 4-08 by mouth ity of tablet 16:30: daily. [place] [address] Medical Branch cetirizine 2020-0 Yes 10mg Take 10 mg U nivers (ZYRTEC) 10 4-08 by mouth ity of mg tablet 16:30: daily. [place] [address] Medical Branch albuterol-i 2020-0 Yes 1{puff} Inhale 1 [facility] pratropium 4-08 Puff as ity of 20-100 16:30: needed for [place] mcg/actuati 32 Wheezing Medi janett on inhaler or Branch Shortness of Breath. spironolact 2020-0 Yes 25mg Take 25 mg [facility] one 25 mg 4-08 by mouth 2 ity of tablet 16:30: (two) [place] [address] times Medical daily. Branch gabapentin 2020-0 Yes 100mg Take 100 Un aileen 100 mg 4-08 mg by ity of capsule 16:30: mouth at [place] [address] bedtime. Medical Branch ferrous 2020-0 Yes 325mg Take 325 Unive rs sulfate 325 4-08 mg by ity of mg (65 mg 16:30: mouth 3 [place] iron) 32 (three) Medical tablet times [place] daily with meals. metoprolol 2020-0 Yes 100mg Take 100 Un aileen tartrate 4-08 mg by ity of (LOPRESSOR) 16:30: mouth 2 [place] as 50 mg 32 (two) Medical tablet times [place] daily. fexofenadin 2020-0 Yes 180mg Take 180 [...] by mouth ity of capsule 16:30: daily. [address] Branch DULoxetine 2020-0 Yes 30mg Take 30 mg U nivers 30 mg 4-08 by mouth ity of capsule 16:30: daily. [address] Branch hydroCHLORO 2020-0 Yes 12.5mg Take 12.5 [facility] thiazide 4-08 mg by ity of 12.5 mg 16:30: mouth [place] capsule 32 daily. Medical Branch montelukast 2020-0 Yes 10mg Take 10 mg [facility] 10 mg 4-08 by mouth ity of tablet 16:30: daily. [address] Branch cetirizine 2020-0 Yes 10mg Take 10 mg U nivers (ZYRTEC) 10 4-08 by mouth ity of mg tablet 16:30: daily. [place] [address] Medical Branch albuterol-i 2020-0 Yes 1{puff} Inhale [...] by ity of capsule 16:30: mouth at [place] [address] bedtime. Medical Branch ferrous 2020-0 Yes 325mg Take 325 Unive rs sulfate 325 4-08 mg by ity of mg (65 mg 16:30: mouth 3 [place] iron) 32 (three) Medical tablet times Branch daily with meals. metoprolol 2020-0 Yes 100mg Take 100 Un aileen tartrate 4-08 mg by ity of (LOPRESSOR) 16:30: mouth 2 [place] as 50 mg 32 (two) Medical tablet times [place] daily. fexofenadin 2020-0 Yes 180mg Take 180 [...] by mouth ity of capsule 16:30: daily. [place] [address] Medical Branch DULoxetine 2020-0 Yes 30mg Take 30 mg U nivers 30 mg 4-08 by mouth ity of capsule 16:30: daily. [place] [address] Medical Branch hydroCHLORO 2020-0 Yes 12.5mg Take 12.5 [facility] thiazide 4-08 mg by ity of 12.5 mg 16:30: mouth [place] capsule 32 daily. Medical Branch montelukast 2020-0 Yes 10mg Take 10 mg [facility] 10 mg 4-08 by mouth ity of tablet 16:30: daily. [place] [address] Medical Branch cetirizine 2020-0 Yes 10mg Take 10 mg U nivers (ZYRTEC) 10 4-08 by mouth ity of mg tablet 16:30: daily. [place] [address] Medical Branch albuterol-i 2020-0 Yes 1{puff} Inhale 1 [facility] pratropium 4-08 Puff as ity of 20-100 16:30: needed for [facility] [place] [facility]/actuati 32 Wheezing Medi janett on inhaler or Branch Shortness of Breath. spironolact 2020-0 Yes 25mg Take 25 mg [facility] one 25 mg 4-08 by mouth 2 ity of tablet 16:30: (two) [place] [address] times Medical daily. Branch gabapentin 2020-0 Yes 100mg Take 100 Un aileen 100 mg 4-08 mg by ity of capsule 16:30: mouth at [place] [address] bedtime. Medical Branch ferrous 2020-0 Yes 325mg Take 325 Unive rs sulfate 325 4-08 mg by ity of mg (65 mg 16:30: mouth 3 [place] iron) 32 (three) Medical tablet times [place] daily with meals. metoprolol 2020-0 Yes 100mg Take 100 Un aileen tartrate 4-08 mg by ity of (LOPRESSOR) 16:30: mouth 2 [place] as 50 mg 32 (two) Medical tablet times [place] daily. fexofenadin 2020-0 Yes 180mg Take 180 [...] by mouth ity of capsule 16:30: daily. [place] [address] Medical Branch DULoxetine 2020-0 Yes 30mg Take 30 mg U nivers 30 mg 4-08 by mouth ity of capsule 16:30: daily. [place] [address] Medical Branch hydroCHLORO 2020-0 Yes 12.5mg Take 12.5 [facility] thiazide 4-08 mg by ity of 12.5 mg 16:30: mouth [place] capsule 32 daily. Medical Branch montelukast 2020-0 Yes 10mg Take 10 mg [facility] 10 mg 4-08 by mouth ity of tablet 16:30: daily. [address] Branch cetirizine 2020-0 Yes 10mg Take 10 mg U nivers (ZYRTEC) 10 4-08 by mouth ity of mg tablet 16:30: daily. [place] [address] Medical Branch albuterol-i 2020-0 Yes 1{puff} Inhale 1 [facility] pratropium 4-08 Puff as ity of 20-100 16:30: needed for [facility] [place] [facility]/actuati Wheezing Medi janett on inhaler or Branch Shortness of Breath. spironolact 2020-0 Yes 25mg Take 25 mg [facility] one 25 mg 4-08 by mouth 2 ity of tablet 16:30: (two) [place] [address] times Medical daily. Branch gabapentin 2020-0 Yes 100mg Take 100 Un aileen 100 mg 4-08 mg by ity of capsule 16:30: mouth at [place] [address] bedtime. Medical Branch ferrous 2020-0 Yes 325mg [...] o f 150 mg/mL 16:30: the skin [facility] syringe 32 weekly. Medica l Branch omeprazole 2020-0 Yes 40mg Take 40 mg U nivers 40 mg 4-08 by mouth ity of capsule 16:30: daily. [place] [address] Medical Branch DULoxetine 2020-0 Yes 30mg Take 30 mg U nivers 30 mg 4-08 by mouth ity of capsule 16:30: daily. [place] [address] Medical Branch hydroCHLORO 2020-0 Yes 12.5mg Take 12.5 [facility] thiazide 4-08 mg by ity of 12.5 mg 16:30: mouth [place] capsule 32 daily. Medical Branch montelukast 2020-0 Yes 10mg Take 10 mg [facility] 10 mg 4-08 by mouth ity of tablet 16:30: daily. [place] [address] Medical Branch cetirizine 2020-0 Yes 10mg Take 10 mg U nivers (ZYRTEC) 10 4-08 by mouth ity of mg tablet 16:30: daily. [place] [address] Medical Branch albuterol-i 2020-0 Yes 1{puff} Inhale 1 [facility] pratropium 4-08 Puff as ity of 20-100 16:30: needed for [facility] [place] [facility]/[place] [address] Wheezing Medi janett on inhaler or Branch Shortness of Breath. spironolact 2020-0 Yes 25mg Take 25 mg [facility] one 25 mg 4-08 by mouth 2 ity of tablet 16:30: (two) [place] [address] times Medical daily. Branch gabapentin 2020-0 Yes 100mg Take 100 Un aileen 100 mg 4-08 mg by ity of capsule 16:30: mouth at [place] [address] bedtime. Medical Branch ferrous 2020-0 Yes 325mg Take 325 Unive rs sulfate 325 4-08 mg by ity of mg (65 mg 16:30: mouth 3 [place] iron) (three) Medical tablet times Ethel daily with meals. metoprolol 2020-0 Yes 100mg [...] by mouth ity of capsule 16:30: daily. [address] Branch DULoxetine 2019-0 Yes 30mg Take 30 mg U nivers 30 mg 4-08 by mouth ity of capsule 16:30: daily. [address] Branch hydroCHLORO 2020-0 Yes 12.5mg Take 12.5 [facility] thiazide 4-08 mg by ity of 12.5 mg 16:30: mouth [place] capsule 32 daily. [facility] Branch montelukast 2020-0 Yes 10mg Take 10 mg Univers 10 mg 4-08 by mouth ity of tablet 16:30: daily. [address] Branch cetirizine 2020-0 Yes 10mg Take 10 mg U nivers (ZYRTEC) 10 4-08 by mouth ity of mg tablet 16:30: daily. [address] Branch albuterol-i 2019-0 Yes 1{puff} Inhale [...] by ity of capsule 16:30: mouth at [place] [address] bedtime. Medical Branch ferrous 2020-0 Yes 325mg Take 325 Unive rs sulfate 325 4-08 mg by ity of mg (65 mg 16:30: mouth 3 [place] iron) 32 (three) Medical tablet times [place]thel daily with meals. metoprolol 2020-0 Yes 100mg Take 100 Un aileen tartrate 4-08 mg by ity of (LOPRESSOR) 16:30: mouth 2 [place]imit[place] as 50 mg 32 (two) Medical tablet times [place] daily. fexofenadin 2020-0 Yes 180mg Take 180 U nivers e (ERIKA) 4-08 mg by ity of 180 mg 16:30: mouth [place] tablet 32 daily. Medical Branch fluticasone 2020-0 Yes 2{spray Use 2 Un aileen (FLONASE) 4-08 } Sprays in ity o f 50 16:30: each [place] mcg/Actuati nostril Medic al on nasal daily. [...] by mouth ity of capsule 16:30: daily. [place] [address] Medical Branch DULoxetine 2020-0 Yes 30mg Take 30 mg U nivers 30 mg 4-08 by mouth ity of capsule 16:30: daily. [place] [address] Medical Branch hydroCHLORO 2020-0 Yes 12.5mg Take 12.5 [facility] thiazide 4-08 mg by ity of 12.5 mg 16:30: mouth [place] capsule 32 daily. Medical Branch montelukast 2020-0 Yes 10mg Take 10 mg [facility] 10 mg 4-08 by mouth ity of tablet 16:30: daily. [place] [address] Medical Branch cetirizine 2020-0 Yes 10mg Take 10 mg U nivers (ZYRTEC) 10 4-08 by mouth ity of mg tablet 16:30: daily. [place] [address] Medical Branch albuterol-i 2020-0 Yes 1{puff} Inhale [...] by ity of capsule 16:30: mouth at [place] [address] bedtime. Medical Branch ferrous 2020-0 Yes 325mg Take 325 Unive rs sulfate 325 4-08 mg by ity of mg (65 mg 16:30: mouth 3 [place] iron) 32 (three) Medical tablet times [place]thel daily with meals. metoprolol 2020-0 Yes 100mg Take 100 Un aileen tartrate 4-08 mg by ity of (LOPRESSOR) 16:30: mouth 2 [place] as 50 mg 32 (two) Medical tablet times [place] daily. fexofenadin 2020-0 Yes 180mg Take 180 [...] by mouth ity of capsule 16:30: daily. [place] [address] Medical Branch DULoxetine 2020-0 Yes 30mg Take 30 mg U nivers 30 mg 4-08 by mouth ity of capsule 16:30: daily. [place] [address] Medical Branch hydroCHLORO 2020-0 Yes 12.5mg Take 12.5 [facility] thiazide 4-08 mg by ity of 12.5 mg 16:30: mouth [place] capsule 32 daily. Medical Branch montelukast 2020-0 Yes 10mg Take 10 mg [facility] 10 mg 4-08 by mouth ity of tablet 16:30: daily. [address] Branch cetirizine 2020-0 Yes 10mg Take 10 mg U nivers (ZYRTEC) 10 4-08 by mouth ity of mg tablet 16:30: daily. [address] Branch albuterol-i 2020-0 Yes 1{puff} Inhale [...] by ity of capsule 16:30: mouth at [place] [address] bedtime. Medical Branch ferrous 2020-0 Yes 325mg [...] by mouth ity of capsule 16:30: daily. [place] [address] Medical Branch DULoxetine 2020-0 Yes 30mg Take 30 mg U nivers 30 mg 4-08 by mouth ity of capsule 16:30: daily. [place] [address] Medical Branch hydroCHLORO 2020-0 Yes 12.5mg Take 12.5 [facility] thiazide 4-08 mg by ity of 12.5 mg 16:30: mouth [place] capsule 32 daily. Medical Branch montelukast 2020-0 Yes 10mg Take 10 mg [facility] 10 mg 4-08 by mouth ity of tablet 16:30: daily. [place] [address] Medical Branch cetirizine 2020-0 Yes 10mg Take 10 mg U nivers (ZYRTEC) 10 4-08 by mouth ity of mg tablet 16:30: daily. [place] [address] Medical Branch albuterol-i 2020-0 Yes 1{puff} Inhale 1 [facility] pratropium 4-08 Puff as ity of 20-100 16:30: needed [facility] [place] [facility] Wheezing Medi janett on inhaler or Branch Shortness of Breath. spironolact 2020-0 Yes 25mg Take 25 mg [facility] one 25 mg 4-08 by mouth 2 ity of tablet 16:30: (two) [place] [address] times Medical daily. Branch gabapentin 2020-0 Yes 100mg Take 100 Un aileen 100 mg 4-08 mg by ity of capsule 16:30: mouth at [place] [address] bedtime. Medical Branch ferrous 2020-0 Yes 325mg [...] by mouth ity of capsule 16:30: daily. [address] Branch DULoxetine 2020-0 Yes 30mg Take 30 mg U nivers 30 mg 4-08 by mouth ity of capsule 16:30: daily. [address] Branch hydroCHLORO 2020-0 Yes 12.5mg Take 12.5 [facility] thiazide 4-08 mg by ity of 12.5 mg 16:30: mouth [place] capsule 32 daily. Medical Branch montelukast 2019-0 Yes 10mg Take 10 mg [facility] 10 mg 4-08 by mouth ity of tablet 16:30: daily. [address] Branch cetirizine 2020-0 Yes 10mg Take 10 mg U nivers (ZYRTEC) 10 4-08 by mouth ity of mg tablet 16:30: daily. [place] [address] Medical Branch albuterol-i 2020-0 Yes 1{puff} Inhale [...] by ity of capsule 16:30: mouth at [place] [address] bedtime. Medical Branch ferrous 2020-0 Yes 325mg Take 325 Unive rs sulfate 325 4-08 mg by ity of mg (65 mg 16:30: mouth 3 [place] iron) 32 (three) Medical tablet times [place]thel daily with meals. metoprolol 2020-0 Yes 100mg Take 100 Un aileen tartrate 4-08 mg by ity of (LOPRESSOR) 16:30: mouth 2 Dimit[place] as 50 mg 32 (two) Medical tablet times [place] daily. fexofenadin 2020-0 Yes 180mg Take 180 [...] by mouth ity of capsule 16:30: daily. [place] [address] Medical Branch DULoxetine 2020-0 Yes 30mg Take 30 mg U nivers 30 mg 4-08 by mouth ity of capsule 16:30: daily. [address] Branch hydroCHLORO 2020-0 Yes 12.5mg Take 12.5 [facility] thiazide 4-08 mg by ity of 12.5 mg 16:30: mouth [place] capsule 32 daily. Medical Branch montelukast 2020-0 Yes 10mg Take 10 mg [facility] 10 mg 4-08 by mouth ity of tablet 16:30: daily. [place] [address] Medical Branch cetirizine 2020-0 Yes 10mg Take 10 mg U nivers (ZYRTEC) 10 4-08 by mouth ity of mg tablet 16:30: daily. [place] [address] Medical Branch albuterol-i 2020-0 Yes 1{puff} Inhale [...] by ity of capsule 16:30: mouth at [place] [address] bedtime. Medical Branch ferrous 2020-0 Yes 325mg Take 325 Unive rs sulfate 325 4-08 mg by ity of mg (65 mg 16:30: mouth 3 [place] iron) 32 (three) Medical tablet times Ethel daily with meals. metoprolol 2020-0 Yes 100mg Take 100 Un aileen tartrate 4-08 mg by ity of (LOPRESSOR) 16:30: mouth 2 [place] as 50 mg 32 (two) Medical tablet times [place] daily. fexofenadin 2020-0 Yes 180mg Take 180 U nivers e (ERIKA) 4-08 mg by ity of 180 mg 16:30: mouth [place] tablet 32 daily. Medical Branch fluticasone 2020-0 Yes 2{spray Use 2 Un aileen (FLONASE) 4-08 } Sprays in ity o f 50 16:30: each [facility] [place] [facility] 32 nostril Medic al on nasal daily. [...] by mouth ity of capsule 16:30: daily. [place] [address] Medical Branch DULoxetine 2020-0 Yes 30mg Take 30 mg U nivers 30 mg 4-08 by mouth ity of capsule 16:30: daily. [place] 32 Medical Branch hydroCHLORO 2020-0 Yes 12.5mg Take 12.5 [facility] thiazide 4-08 mg by ity of 12.5 mg 16:30: mouth [place] capsule 32 daily. Medical Branch montelukast 2020-0 Yes 10mg Take 10 mg [facility] 10 mg 4-08 by mouth ity of tablet 16:30: daily. [place] [address] Medical Branch cetirizine 2020-0 Yes 10mg Take 10 mg U nivers (ZYRTEC) 10 4-08 by mouth ity of mg tablet 16:30: daily. [place] [address] Medical Branch albuterol-i 2020-0 Yes 1{puff} Inhale [...] by ity of capsule 16:30: mouth at [place] [address] bedtime. Medical Branch ferrous 2020-0 Yes 325mg Take 325 Unive rs sulfate 325 4-08 mg by ity of mg (65 mg 16:30: mouth 3 [place] iron) 32 (three) Medical tablet times [place]thel daily with meals. metoprolol 2020-0 Yes 100mg Take 100 Un aileen tartrate 4-08 mg by ity of (LOPRESSOR) 16:30: mouth 2 [place] as 50 mg 32 (two) Medical tablet times [place] daily. fexofenadin 2020-0 Yes 180mg Take 180 [...] by mouth ity of capsule 16:30: daily. [place] [address] Medical Branch DULoxetine 2020-0 Yes 30mg Take 30 mg U nivers 30 mg 4-08 by mouth ity of capsule 16:30: daily. [place] [address] Medical Branch hydroCHLORO 2020-0 Yes 12.5mg Take 12.5 [facility] thiazide 4-08 mg by ity of 12.5 mg 16:30: mouth [place] capsule 32 daily. Medical Branch montelukast 2020-0 Yes 10mg Take 10 mg [facility] 10 mg 4-08 by mouth ity of tablet 16:30: daily. [address] Branch cetirizine 2020-0 Yes 10mg Take 10 mg U nivers (ZYRTEC) 10 4-08 by mouth ity of mg tablet 16:30: daily. [place] [address] Medical Branch albuterol-i 2020-0 Yes 1{puff} Inhale 1 [facility] pratropium 4-08 Puff as ity of 20-100 16:30: needed for [facility] [place] [facility] Wheezing Medi janett on inhaler or Branch Shortness of Breath. spironolact 2020-0 Yes 25mg Take 25 mg [facility] one 25 mg 4-08 by mouth 2 ity of tablet 16:30: (two) [place] 32 times Medical daily. Branch gabapentin 2020-0 Yes 100mg Take 100 Un aileen 100 mg 4-08 mg by ity of capsule 16:30: mouth at [place] [address] bedtime. Medical Branch ferrous 2020-0 Yes 325mg Take 325 Unive rs sulfate 325 4-08 mg by ity of mg (65 mg 16:30: mouth 3 [place] iron) 32 (three) Medical tablet times [place]thel daily with meals. metoprolol 2020-0 Yes 100mg Take 100 Un aileen tartrate 4-08 mg by ity of (LOPRESSOR) 16:30: mouth 2 [place] as 50 mg 32 (two) Medical tablet times [place] daily. fexofenadin 2020-0 Yes 180mg Take 180 [...] by mouth ity of capsule 16:30: daily. [place] [address] Medical Branch DULoxetine 2019-0 Yes 30mg Take 30 mg U nivers 30 mg 4-08 by mouth ity of capsule 16:30: daily. [place] [address] Medical Branch hydroCHLORO 2019-0 Yes 12.5mg Take 12.5 [facility] thiazide 4-08 mg by ity of 12.5 mg 16:30: mouth [place] capsule 32 daily. Medical Branch montelukast 2019-0 Yes 10mg Take 10 mg [facility] 10 mg 4-08 by mouth ity of tablet 16:30: daily. [place] [address] Medical Branch cetirizine 2019-0 Yes 10mg Take 10 mg U nivers (ZYRTEC) 10 4-08 by mouth ity of mg tablet 16:30: daily. [place] [address] Medical Branch albuterol-i 2019-0 Yes 1{puff} Inhale 1 [facility] pratropium 4-08 Puff as ity of 20-100 16:30: needed for [place] mcg/actuati 32 Wheezing Medi janett on inhaler or Branch Shortness of Breath. spironolact 2020-0 Yes 25mg Take 25 mg [facility] one 25 mg 4-08 by mouth 2 ity of tablet 16:30: (two) [place] times Medical daily. Branch gabapentin 2020-0 Yes 100mg Take 100 Un aileen 100 mg 4-08 mg by ity of capsule 16:30: mouth at [place] [address] bedtime. Medical Branch ferrous 2020-0 Yes 325mg Take 325 Unive rs sulfate 325 4-08 mg by ity of mg (65 mg 16:30: mouth 3 [place] iron) 32 (three) Medical tablet times [place] daily with meals. metoprolol 2020-0 Yes 100mg Take 100 Un aileen tartrate 4-08 mg by ity of (LOPRESSOR) 16:30: mouth 2 [place] as 50 mg 32 (two) Medical tablet times [place] daily. fexofenadin 2020-0 Yes 180mg Take 180 [...] by mouth ity of capsule 16:30: daily. [address] DULoxetine 2019-0 Yes 30mg Take 30 mg U nivers 30 mg 4-08 by mouth ity of capsule 16:30: daily. [address] hydroCHLORO 2020-0 Yes 12.5mg Take 12.5 [facility] thiazide 4-08 mg by ity of 12.5 mg 16:30: mouth [place] capsule 32 daily. Medical Branch montelukast 2020-0 Yes 10mg Take 10 mg [facility] 10 mg 4-08 by mouth ity of tablet 16:30: daily. [address] cetirizine 2019-0 Yes 10mg Take 10 mg U nivers (ZYRTEC) 10 4-08 by mouth ity of mg tablet 16:30: daily. [address] albuterol-i 2019-0 Yes 1{puff} Inhale 1 Univers [...] by ity of capsule 16:30: mouth at [place] [address] bedtime. Medical Branch ferrous 2020-0 Yes 325mg Take 325 Unive rs sulfate 325 4-08 mg by ity of mg (65 mg 16:30: mouth 3 [place] iron) 32 (three) Medical tablet times [place]thel daily with meals. metoprolol 2020-0 Yes 100mg Take 100 Un aileen tartrate 4-08 mg by ity of (LOPRESSOR) 16:30: mouth 2 [place] as 50 mg 32 (two) Medical tablet times [place] daily. fexofenadin 2020-0 Yes 180mg Take 180 [...] by mouth ity of capsule 16:30: daily. [place] [address] Medical Branch DULoxetine 2020-0 Yes 30mg Take 30 mg U nivers 30 mg 4-08 by mouth ity of capsule 16:30: daily. [place] [address] Medical Branch hydroCHLORO 2020-0 Yes 12.5mg Take 12.5 [facility] thiazide 4-08 mg by ity of 12.5 mg 16:30: mouth [place] capsule 32 daily. Medical Branch montelukast 2020-0 Yes 10mg Take 10 mg [facility] 10 mg 4-08 by mouth ity of tablet 16:30: daily. [place] [address] Medical Branch cetirizine 2020-0 Yes 10mg Take 10 mg U nivers (ZYRTEC) 10 4-08 by mouth ity of mg tablet 16:30: daily. [place] [address] Medical Branch albuterol-i 2020-0 Yes 1{puff} Inhale [...] by ity of capsule 16:30: mouth at [place] [address] bedtime. Medical Branch ferrous 2020-0 Yes 325mg Take 325 Unive rs sulfate 325 4-08 mg by ity of mg (65 mg 16:30: mouth 3 [place] iron) 32 (three) Medical tablet times Ethel daily with meals. metoprolol 2020-0 Yes 100mg [...] by mouth ity of capsule 16:30: daily. [place] [address] Medical Branch DULoxetine 2020-0 Yes 30mg Take 30 mg U nivers 30 mg 4-08 by mouth ity of capsule 16:30: daily. [place] [address] Medical Branch hydroCHLORO 2020-0 Yes 12.5mg Take 12.5 [facility] thiazide 4-08 mg by ity of 12.5 mg 16:30: mouth [place] capsule 32 daily. Medical Branch montelukast 2020-0 Yes 10mg Take 10 mg [facility] 10 mg 4-08 by mouth ity of tablet 16:30: daily. [place] [address] Medical Branch cetirizine 2020-0 Yes 10mg Take 10 mg U nivers (ZYRTEC) 10 4-08 by mouth ity of mg tablet 16:30: daily. [place] [address] Medical Branch albuterol-i 2020-0 Yes 1{puff} Inhale 1 [facility] pratropium 4-08 Puff as ity of 20-100 16:30: [facility] [place] [facility] Wheezing Medi janett on inhaler or Branch Shortness of Breath. spironolact 2020-0 Yes 25mg Take 25 mg [facility] one 25 mg 4-08 by mouth 2 ity of tablet 16:30: (two) [place] [address] times Medical daily. Branch gabapentin 2020-0 Yes 100mg Take 100 Un aileen 100 mg 4-08 mg by ity of capsule 16:30: mouth at [place] [address] bedtime. Medical Branch ferrous 2020-0 Yes 325mg [...] by mouth ity of capsule 16:30: daily. [place] [address] Medical Branch DULoxetine 2020-0 Yes 30mg Take 30 mg U nivers 30 mg 4-08 by mouth ity of capsule 16:30: daily. [place] [address] Medical Branch hydroCHLORO 2020-0 Yes 12.5mg Take 12.5 [facility] thiazide 4-08 mg by ity of 12.5 mg 16:30: mouth [place] capsule 32 daily. Medical Branch montelukast 2020-0 Yes 10mg Take 10 mg Univers 10 mg 4-08 by mouth ity of tablet 16:30: daily. [place] [address] Medical Branch cetirizine 2020-0 Yes 10mg Take 10 mg U nivers (ZYRTEC) 10 4-08 by mouth ity of mg tablet 16:30: daily. [place] [address] Medical Branch albuterol-i 2020-0 Yes 1{puff} Inhale 1 [facility] pratropium 4-08 Puff as ity of 20-100 16:30: needed for [facility] [place] [facility]/actuati 32 Wheezing Medi janett on inhaler or Branch Shortness of Breath. spironolact 2020-0 Yes 25mg Take 25 mg Univers one 25 mg 4-08 by mouth 2 ity of tablet 16:30: (two) [place] [address] times Medical daily. Branch gabapentin 2020-0 Yes 100mg Take 100 Un aileen 100 mg 4-08 mg by ity of capsule 16:30: mouth at [place] [address] bedtime. Medical Branch ferrous 2020-0 Yes 325mg [...] by mouth ity of capsule 16:30: daily. [address] DULoxetine 2019-0 Yes 30mg Take 30 mg U nivers 30 mg 4-08 by mouth ity of capsule 16:30: daily. [address] Branch hydroCHLORO 2020-0 Yes 12.5mg Take 12.5 [facility] thiazide 4-08 mg by ity of 12.5 mg 16:30: mouth [place] capsule 32 daily. Medical Branch montelukast 2020-0 Yes 10mg Take 10 mg [facility] 10 mg 4-08 by mouth ity of tablet 16:30: daily. [address] Branch cetirizine 2019-0 Yes 10mg Take 10 mg U nivers (ZYRTEC) 10 4-08 by mouth ity of mg tablet 16:30: daily. [address] Branch albuterol-i 2019-0 Yes 1{puff} Inhale [...] by ity of capsule 16:30: mouth at [place] [address] bedtime. Medical Branch ferrous 2020-0 Yes 325mg Take 325 Unive rs sulfate 325 4-08 mg by ity of mg (65 mg 16:30: mouth 3 [place] iron) 32 (three) Medical tablet times Ethel daily with meals. metoprolol 2020-0 Yes 100mg Take 100 Un aileen tartrate 4-08 mg by ity of (LOPRESSOR) 16:30: mouth 2 [place] as 50 mg 32 (two) Medical tablet times Ethel daily. fexofenadin 2020-0 Yes 180mg Take 180 [...] by mouth ity of capsule 16:30: daily. [place] [address] Medical Branch DULoxetine 2020-0 Yes 30mg Take 30 mg U nivers 30 mg 4-08 by mouth ity of capsule 16:30: daily. [place] [address] Medical Branch hydroCHLORO 2020-0 Yes 12.5mg Take 12.5 [facility] thiazide 4-08 mg by ity of 12.5 mg 16:30: mouth [place] capsule 32 daily. Medical Branch montelukast 2020-0 Yes 10mg Take 10 mg [facility] 10 mg 4-08 by mouth ity of tablet 16:30: daily. [place] [address] Medical Branch cetirizine 2020-0 Yes 10mg Take 10 mg U nivers (ZYRTEC) 10 4-08 by mouth ity of mg tablet 16:30: daily. [place] [address] Medical Branch albuterol-i 2020-0 Yes 1{puff} Inhale 1 [facility] pratropium 4-08 Puff as ity of 20-100 16:30: needed for [place] mcg/actuati 32 Wheezing Medi janett on inhaler or Branch Shortness of Breath. spironolact 2020-0 Yes 25mg Take 25 mg [facility] one 25 mg 4-08 by mouth 2 ity of tablet 16:30: (two) [place] [address] times Medical daily. Branch gabapentin 2020-0 Yes 100mg Take 100 Un aileen 100 mg 4-08 mg by ity of capsule 16:30: mouth at [place] [address] bedtime. Medical Branch ferrous 2020-0 Yes 325mg Take 325 Unive rs sulfate 325 4-08 mg by ity of mg (65 mg 16:30: mouth 3 [place] iron) 32 (three) Medical tablet times Ethel daily with meals. metoprolol 2020-0 Yes 100mg Take 100 Un aileen tartrate 4-08 mg by ity of (LOPRESSOR) 16:30: mouth 2 [place] as 50 mg 32 (two) Medical tablet times Ethel daily. fexofenadin 2020-0 Yes 180mg Take 180 [...] by mouth ity of capsule 16:30: daily. [place] [address] Medical Branch DULoxetine 2020-0 Yes 30mg Take 30 mg U nivers 30 mg 4-08 by mouth ity of capsule 16:30: daily. [address] Branch hydroCHLORO 2020-0 Yes 12.5mg Take 12.5 [facility] thiazide 4-08 mg by ity of 12.5 mg 16:30: mouth [place] capsule 32 daily. Medical Branch montelukast 2020-0 Yes 10mg Take 10 mg [facility] 10 mg 4-08 by mouth ity of tablet 16:30: daily. [address] Branch cetirizine 2020-0 Yes 10mg Take 10 mg U nivers (ZYRTEC) 10 4-08 by mouth ity of mg tablet 16:30: daily. [address] Branch albuterol-i 2020-0 Yes 1{puff} Inhale [...] by ity of capsule 16:30: mouth at [place] [address] bedtime. Medical Branch ferrous 2020-0 Yes 325mg [...] by mouth ity of capsule 16:30: daily. [place] [address] Medical Branch DULoxetine 2020-0 Yes 30mg Take 30 mg U nivers 30 mg 4-08 by mouth ity of capsule 16:30: daily. [place] [address] Medical Branch hydroCHLORO 2020-0 Yes 12.5mg Take 12.5 [facility] thiazide 4-08 mg by ity of 12.5 mg 16:30: mouth [place] capsule 32 daily. Medical Branch montelukast 2020-0 Yes 10mg Take 10 mg Univers 10 mg 4-08 by mouth ity of tablet 16:30: daily. [place] [address] Medical Branch cetirizine 2020-0 Yes 10mg Take 10 mg U nivers (ZYRTEC) 10 4-08 by mouth ity of mg tablet 16:30: daily. [place] [address] Medical Branch albuterol-i 2020-0 Yes 1{puff} Inhale 1 [facility] pratropium 4-08 Puff as ity of 20-100 16:30: needed [facility] [place] [facility] Wheezing Medi janett on inhaler or Branch Shortness of Breath. spironolact 2020-0 Yes 25mg Take 25 mg [facility] one 25 mg 4-08 by mouth 2 ity of tablet 16:30: (two) [place] 32 times Medical daily. Branch gabapentin 2020-0 Yes 100mg Take 100 Un aileen 100 mg 4-08 mg by ity of capsule 16:30: mouth at [place] [address] bedtime. Medical Branch ferrous 2020-0 Yes 325mg [...] by mouth ity of capsule 16:30: daily. [address] Branch DULoxetine 2020-0 Yes 30mg Take 30 mg U nivers 30 mg 4-08 by mouth ity of capsule 16:30: daily. [address] Branch hydroCHLORO 2020-0 Yes 12.5mg Take 12.5 Univers thiazide 4-08 mg by ity of 12.5 mg 16:30: mouth [place] capsule 32 daily. Medical Branch montelukast 2020-0 Yes 10mg Take 10 mg Univers 10 mg 4-08 by mouth ity of tablet 16:30: daily. [address] Branch cetirizine 2020-0 Yes 10mg Take 10 mg U nivers (ZYRTEC) 10 4-08 by mouth ity of mg tablet 16:30: daily. [address] Branch albuterol-i 2019-0 Yes 1{puff} Inhale [...] by ity of capsule 16:30: mouth at [place] [address] bedtime. Medical Branch ferrous 2020-0 Yes 325mg Take 325 Unive rs sulfate 325 4-08 mg by ity of mg (65 mg 16:30: mouth 3 [place] iron) 32 (three) Medical tablet times Ethel daily with meals. metoprolol 2020-0 Yes 100mg Take 100 Un aileen tartrate 4-08 mg by ity of (LOPRESSOR) 16:30: mouth 2 [place] as 50 mg 32 (two) Medical tablet times Ethel daily. fexofenadin 2020-0 Yes 180mg Take 180 [...] by mouth ity of capsule 16:30: daily. [place] [address] Medical Branch DULoxetine 2020-0 Yes 30mg Take 30 mg U nivers 30 mg 4-08 by mouth ity of capsule 16:30: daily. [place] [address] Medical Branch hydroCHLORO 2020-0 Yes 12.5mg Take 12.5 Univers thiazide 4-08 mg by ity of 12.5 mg 16:30: mouth [place] capsule 32 daily. Medical Branch flu vaccine 2020-0 2020- No .5mL 0.5 mL, Un aileen 65 yrs and 4-08 04-08 Intramuscu it y of up (FLUZONE 15:45: 15:56 lar, ONCE, [place] HIGH-DOSE 00 :00 1 dose, Medical 2019-20 4/8/20 Branch (PF)) at 1045, syringe 0.5 Routine mL metFORMIN 2019-0 2020- No 1000mg Take 1,000 Univers (GLUCOPHAGE 02-21-08 mg by ity of ) 500 mg 15:01: 00:00 mouth 2 [place] tablet 25 :00 (two) Medical times Branch daily with meals. insulin 2019- 2020- No 22U inject 22 Univ ers degludec 02-21-08 Units ity of (TRESIBA 15:01: 00:00 under the [place] as FLEXTOUCH 25 :00 skin Medical U-100) 100 daily. Branch unit/mL (3 mL) InPn sitaGLIPtin 2019- 2020- No 1{tbl} Take 1 U nivers -metformin 02-21-08 tablet by ity of (JANUMET 15:01: 00:00 mouth [place] XR) 25 :00 daily. Medical 50-1,000 mg Branch per tablet lisinopril 2019-2019- No 20mg Take 20 mg Univers 20 mg 02-21-08 by mouth ity of tablet 15:01: 00:00 daily. [place] 25 :00 Medical Branch amLODIPine 2019-0 2020- No 5mg Take 5 mg U nivers 5 mg tablet 02-21-08 by mouth ity of 15:01: 00:00 daily. [place] 25 :00 Medical Branch fluticasone 2019-0 2020- No Inhale. Un aileen -umeclidin- 02-21-08 ity of vilanter 15:01: 00:00 [place] (TRELEGY 25 :00 Medical ELLIPTA) Branch 100-62.5-25 mcg DsDv amLODIPine 2020-0 Yes 10mg 10 mg, Unive rs (NORVASC) 4-08 Oral, ity of tablet 10 14:00: DAILY, [place] mg 00 First dose Medical on Thu Branch 02/22/20 at 0900, Until Discontinu ed, Routine lisinopril 2020-0 Yes 20mg 20 mg, Unive rs (PRINIVIL,Z 4-08 Oral, BID, it y of ESTRIL) 01:00: [place] tablet 20 00 on Thu Medical mg 02/21/20 at Branch 2000, Until Discontinu ed, Routine lisinopril 2020-0 2020- No [id number] 20mg Take 1 Univers 20 mg 02-21 9104 tablet by ity of tablet 00:00: 04:59 mouth 2 [place] 00 :00 (two) Medical times Ethel daily for 30 days. lactulose 2019- No [id number] 30mL Take 30 mL Univers 10 gram/15 02-21 by mouth ity of mL solution 00:00: 04:59 daily for [place] 00 :00 30 days. Medical Branch lisinopril 2019- No [id number] 20mg Take 1 Univers 20 mg 02-21 9104 tablet by ity of tablet 00:00: 04:59 mouth 2 [place] 00 :00 (two) Medical times Ethel daily for 30 days. lactulose 2019- No [id number] 30mL Take 30 mL Univers 10 gram/15 02-21 by mouth ity of mL solution 00:00: 04:59 daily for [place] 00 :00 30 days. Medical Branch lisinopril 2019- No [id number] 20mg Take 1 Univers 20 mg 02-21 9104 tablet by ity of tablet 00:00: 04:59 mouth 2 [place] 00 :00 (two) Medical times Ethel daily for 30 days. lactulose 2019- No [id number] 30mL Take 30 mL Univers 10 gram/15 02-21 by mouth ity of mL solution 00:00: 04:59 daily for [place] 00 :00 30 days. Medical Branch lisinopril 2019- No [id number] 20mg Take 1 Univers 20 mg 02-21 9104 tablet by ity of tablet 00:00: 04:59 mouth 2 [place] 00 :00 (two) Medical times Ethel daily for 30 days. lactulose 2019-2019- No [id number] 30mL Take 30 mL Univers 10 gram/15 02-21 by mouth ity of mL solution 00:00: 04:59 daily for [place] 00 :00 30 days. Medical Branch acetaminoph Yes 500mg 500 mg, Un aileen en 02-20 Oral, ity of (TYLENOL) 21:33: Q6HPRN, [place] tablet 500 50 Starting Medic al mg 02/21/20 Branch at 1633, Until Discontinu ed, Routine, Pain (scale 1-3), Temp > 38.5 C omeprazole 2020-0 Yes 40mg 40 mg, Unive rs (PRILOSEC) 02-20 Oral, ity of capsule 40 14:00: DAILY, [place] mg 00 First dose Medical on Thu Ethel 02/21/20 at 0900, Until Discontinu ed KCL 2020-0 Yes 20meq 20 mEq, Univers (KLOR-CON 02-20 Oral, ity of M20) tablet 14:00: DAILY, [place] 20 mEq 00 First dose Medical on Thu Ethel 02/21/20 at 0900, Until Discontinu ed, Routine montelukast 2020-0 Yes 10mg 10 mg, Univ ers (SINGULAIR) 02-20 Oral, ity of tablet 10 14:00: DAILY, [place] mg 00 First dose Medical on Thu Ethel 02/21/20 at 0900, Until Discontinu ed, Routine amLODIPine 2020-0 2020- No 5mg 5 mg, [facility] rs (NORVASC) 02-20 04-08 Oral, ity of tablet 5 mg 14:00: 12:25 DAILY, [place] as 00 :55 First dose Medical on [facility] 02/21/20 at 0900, Until Discontinu ed, Routine lisinopril 2020-0 2020- No 20mg 20 mg, Univ ers (PRINIVIL,Z 02-20- Oral, ity of ESTRIL) 14:00: 21:34 DAILY, [place] tablet 20 00 :24 First dose Medi janett mg on Thu Ethel 02/21/20 at 0900, Until Discontinu ed, Routine codeine-gua 2020-0 Yes 5mL 5 mL, Unive rs ifenesin 02-20 Oral, ity of (ROBITUSSIN 03:29: Q6HPRN, [place] as AC) 10-100 29 Starting Medic al mg/5 mL [facility] 02/20/20 Branch solution 5 at 2229, mL Until Discontinu ed, Routine, Cough Sliding 2020-0 Yes Subcutaneo Univ ers Scale 4-07 us, TID ity of Insulin - 02:00: MEALS+HS, [place] as Aspart 00 First dose Medical (NOVOLOG) + on Thu [facility] 02/20/20 at Testing 2100, Until Discontinu ed, Routine gabapentin 2020-0 Yes 100mg 100 mg, Uni vers (NEURONTIN) 4-07 Oral, QHS, it y of capsule 100 02:00: First dose [place] mg 00 on [facility] 02/20/20 at Branch 2100, Until Discontinu ed, [...] First dose [place] tablet 100 00 on [facility] Medical mg 02/20/20 at Branch 2000, Until Discontinu ed, Routine furosemide 2020-0 Yes 40mg 40 mg, Unive rs (LASIX) 4-07 Oral, BID, ity of tablet 40 01:00: First dose [place] mg 00 on [facility] 02/20/20 at Branch 2000, Until Discontinu ed, Routine lactulose 2019-0 Yes 30mL 30 mL, Univer s (CEPHULAC) 407 Oral, ity of solution 30 00:45: Q12H, [place] mL 00 First dose Medical on [facility] 02/20/20 at 1945, Until Discontinu ed, Routine hydralAZINE 2020-0 Yes 10mg 10 mg, Univ ers (APRESOLINE 4-07 Intravenou it y of ) injection 00:42: s, Q8HPRN, [place] 10 mg 19 Starting Medical [facility] 02/20/20 Branch at 1942, Until Discontinu ed, Routine, Hypertensi on ondansetron 2020-0 Yes 4mg 4 mg, Slow Univers (ZOFRAN 4-07 IV Push, ity of (PF)) 00:21: Q6HPRN, [place] injection 4 01 Starting Medi janett mg [facility] 02/20/20 Branch at 1921, Until Discontinu ed, Routine, Nausea and Vomiting (N/V) hydralAZINE 2020-0 2020- No 10mg 10 mg, Uni vers (APRESOLINE 4-06 04-06 Intravenou i ty of ) injection 23:45: 22:46 s, ONCE, 1 [place] 10 mg 00 :00 dose, [facility] 02/20/20 at Branch 1845, LOPEZ SITagliptin 2019-1 Yes 1{tbl} QD Take [address] -metFORMIN 1-05 tablet by Luke s (JANUMET) 16:17: mouth Medical 50-1,000 mg 34 daily. Center per tablet montelukast 2018-11 Yes 10mg QD Take [address] [facility] (SINGULAIR) 1-05 by mouth Luke s 10 mg 16:17: nightly. Medical tablet 34 [place] lisinopril 2018-11 Yes 20mg QD Take [address] (PRINIVIL,Z 1-05 by mouth Luke s ESTRIL) 20 16:17: daily. Medic al MG tablet 34 [place] metoprolol 2018-11 Yes 100mg Q.5D Take [address] (LOPRESSOR) 1-05 mg by [facility] 100 MG 16:17: mouth 2 Medical tablet 34 (two) Center times daily. amLODIPine 2018-11 Yes 5mg QD Take [address] (NORVASC) 5 1-05 by mouth Luke s MG tablet 16:17: daily. Medica l 34 Center hydroCHLORO 2018-11 Yes 12.5mg QD Take 12.[address] [address] thiazide 1-05 mg by [facility] (MICROZIDE) 16:17: mouth Medic al 12.5 mg 34 daily. [place] capsule omeprazole 2018-11 Yes 40mg QD Take [address] (PRILOSEC) 1-05 by mouth [facility] 40 MG 16:17: daily. Medical capsule 34 [place] brimonidine 2018-11 Yes 1[drp] Q.5D Place [address] (ALPHAGAN) 1-05 drop into Luke s 0.15 % 16:17: both eyes Medica l ophthalmic 34 2 (two) Center solution times daily. insulin 2018-11 Yes 30U QD Inject 30 [facility] degludec 1-05 Units [facility] 100 unit/mL 16:17: subcutaneo Medical (3 mL) InPn 34 us Center daily. latanoprost 2018-11 Yes 1[drp] [...] 10 mg 16:17: nightly. Medical tablet 34 [place] lisinopril 2018-11 Yes 20mg QD Take [address] (PRINIVIL,Z 1-05 by mouth Luke s ESTRIL) 20 16:17: daily. Medic al MG tablet 34 [place] metoprolol 2018-11 Yes 100mg Q.5D Take [address] (LOPRESSOR) 1-05 mg by [facility] 100 MG 16:17: mouth 2 Medical tablet 34 (two) Center times daily. amLODIPine 2018-11 Yes 5mg QD Take [address] (NORVASC) 5 1-05 by mouth Luke s MG tablet 16:17: daily. Medica l 34 [place] hydroCHLORO 2018-11 Yes 12.5mg QD Take 12.[address] thiazide 1-05 mg by [facility]ukes (MICROZIDE) 16:17: mouth Medic al 12.5 mg 34 daily. [place] capsule omeprazole 2018-11 Yes 40mg QD Take [address] (PRILOSEC) 1-05 by mouth [facility] 40 MG 16:17: daily. Medical capsule [address] [place] [address] brimonidine 2018-11 Yes 1[drp] Q.5D Place [address] (ALPHAGAN) 1-05 drop into Luke s 0.15 % 16:17: both eyes Medica l ophthalmic 34 2 (two) Center solution times daily. insulin 2018-11 Yes 30U QD Inject 30 [facility] degludec 1-05 Units [facility] 100 unit/mL 16:17: subcutaneo Medical (3 mL) InPn 34 [facility] Center daily. latanoprost 2018-11 Yes 1[drp] QD [...] by ity of ITAMIN D3 00:00: mouth [place] (CALTRATE 00 daily. Medical 600 + D Branch ORAL) methotrexat 2020- No [id number] 20mg Take 8 Univers e 6 04-08 Tabs by ity of (RHEUMATREX 00:00: 00:00 [place] ) 2.5 mg 00 :00 weekly. [facility] Branch foLIC acid Yes [id number] 1mg Take 1 Tab Univers (FOLATE) 1 5-25 by mouth ity o f mg tablet 00:00: daily. [place] Medical Ethel foLIC acid Yes [id number] 1mg Take 1 Tab Univers (FOLATE) 1 5-25 by mouth ity o f mg tablet 00:00: daily. [place] Medical Ethel foLIC acid Yes [id number] 1mg Take 1 Tab Univers (FOLATE) 1 5-25 by mouth ity o f mg tablet 00:00: daily. [place] [facility] foLIC acid Yes [id number] 1mg Take 1 Tab Univers (FOLATE) 1 5-25 by mouth ity o f mg tablet 00:00: daily. [place] Medical Ethel foLIC acid Yes [id number] 1mg Take 1 Tab Univers (FOLATE) 1 5-25 by mouth ity o f mg tablet 00:00: daily. [place] Medical Ethel foLIC acid Yes [id number] 1mg Take 1 Tab Univers (FOLATE) 1 5-25 by mouth ity o f mg tablet 00:00: daily. [place] [facility] foLIC acid Yes [id number] 1mg Take 1 Tab Univers (FOLATE) 1 5-25 by mouth ity o f mg tablet 00:00: daily. [place] [facility] foLIC acid Yes [id number] 1mg Take 1 Tab Univers (FOLATE) 1 5-25 by mouth ity o f mg tablet 00:00: daily. [place] [facility] foLIC acid Yes [id number] 1mg Take 1 Tab Univers (FOLATE) 1 5-25 by mouth ity o f mg tablet 00:00: daily. [place] [facility] foLIC acid Yes [id number] 1mg Take 1 Tab Univers (FOLATE) 1 5-25 by mouth ity o f mg tablet 00:00: daily. [place] [facility] foLIC acid Yes [id number] 1mg Take 1 Tab Univers (FOLATE) 1 5-25 by mouth ity o f mg tablet 00:00: daily. [facility] foLIC acid Yes [id number] 1mg Take 1 Tab Univers (FOLATE) 1 5-25 by mouth ity o f mg tablet 00:00: daily. [facility] foLIC acid Yes [id number] 1mg Take 1 Tab Univers (FOLATE) 1 5-25 by mouth ity o f mg tablet 00:00: daily. [facility] foLIC acid Yes [id number] 1mg Take 1 Tab Univers (FOLATE) 1 5-25 by mouth ity o f mg tablet 00:00: daily. [facility] foLIC acid Yes [id number] 1mg Take 1 Tab Univers (FOLATE) 1 5-25 by mouth ity o f mg tablet 00:00: daily. [facility] foLIC acid Yes [id number] 1mg Take 1 Tab Univers (FOLATE) 1 5-25 by mouth ity o f mg tablet 00:00: daily. [facility] foLIC acid Yes [id number] 1mg Take 1 Tab Univers (FOLATE) 1 5-25 by mouth ity o f mg tablet 00:00: daily. [facility] foLIC acid Yes [id number] 1mg Take 1 Tab Univers (FOLATE) 1 5-25 by mouth ity o f mg tablet 00:00: daily. [facility] foLIC acid Yes [id number] 1mg Take 1 Tab Univers (FOLATE) 1 5-25 by mouth ity o f mg tablet 00:00: daily. [facility] foLIC acid Yes [id number] 1mg Take 1 Tab Univers (FOLATE) 1 5-25 by mouth ity o f mg tablet 00:00: daily. [facility] foLIC acid Yes [id number] 1mg Take 1 Tab Univers (FOLATE) 1 5-25 by mouth ity o f mg tablet 00:00: daily. [facility] foLIC acid Yes [id number] 1mg Take 1 Tab Univers (FOLATE) 1 5-25 by mouth ity o f mg tablet 00:00: daily. [place] [facility] foLIC acid Yes [id number] 1mg Take 1 Tab Univers (FOLATE) 1 5-25 by mouth ity o f mg tablet 00:00: daily. [place] [facility] foLIC acid Yes [id number] 1mg Take 1 Tab Univers (FOLATE) 1 5-25 by mouth ity o f mg tablet 00:00: daily. [facility] foLIC acid Yes [id number] 1mg Take 1 Tab Univers (FOLATE) 1 5-25 by mouth ity o f mg tablet 00:00: daily. [facility] foLIC acid Yes [id number] 1mg Take 1 Tab Univers (FOLATE) 1 5-25 by mouth ity o f mg tablet 00:00: daily. [place] [facility] foLIC acid Yes [id number] 1mg Take 1 Tab Univers (FOLATE) 1 5-25 by mouth ity o f mg tablet 00:00: daily. [place] [facility] foLIC acid Yes [id number] 1mg Take 1 Tab Univers (FOLATE) 1 5-25 by mouth ity o f mg tablet 00:00: daily. [place] [facility] foLIC acid Yes [id number] 1mg Take 1 Tab Univers (FOLATE) 1 5-25 by mouth ity o f mg tablet 00:00: daily. [place] [facility] foLIC acid Yes [id number] 1mg Take 1 Tab Univers (FOLATE) 1 5-25 by mouth ity o f mg tablet 00:00: daily. [place] [facility] Blood-Gluco Yes daily. Univ ers se Meter 2-14 ity of (FREESTYLE 00:00: [place] LITE METER) [facility] Blood-Gluco Yes daily. Univ ers se Meter 2-14 ity of (FREESTYLE 00:00: [place] LITE METER) [facility] Blood-Gluco Yes daily. Univ ers se Meter 2-14 ity of (FREESTYLE 00:00: [place] LITE METER) [facility] Blood-Gluco Yes daily. Univ ers se Meter 2-14 ity of (FREESTYLE 00:00: [place] LITE METER) [facility] Blood-Gluco Yes daily. Univ ers se Meter 2-14 ity of (FREESTYLE 00:00: [place] LITE METER) [facility] Blood-Gluco Yes daily. Univ ers se Meter 2-14 ity of (FREESTYLE 00:00: [place] LITE METER) [facility] Blood-Gluco Yes daily. Univ ers se [...] (FREESTYLE 00:00: [place] LITE METER) 00 Medical [facility] Branch Blood-Gluco Yes daily. Univ ers se Meter 2-14 ity of (FREESTYLE 00:00: [place] LITE METER) 00 Medical [facility] Blood-Gluco Yes daily. Univ ers se Meter 2-14 ity of (FREESTYLE 00:00: [place] LITE METER) 00 Medical [facility] Blood-Gluco Yes daily. Univ ers se Meter 2-14 ity of (FREESTYLE 00:00: [place] LITE METER) 00 Medical [facility] Branch Blood-Gluco Yes daily. Univ ers se Meter 2-14 ity of (FREESTYLE 00:00: [place] LITE METER) 00 Medical [facility] Blood-Gluco Yes daily. Univ ers se Meter 2-14 ity of (FREESTYLE 00:00: [place] LITE METER) 00 [facility] Branch glipiZIDE 2020- No 2.5mg Take 1 Tab [...] mEq 00:00: daily. [place] tablet 00 [facility] Yes 20meq Take 1 Tab Univer s (KLOR-CON 1-04 by mouth ity of M20) 20 mEq 00:00: daily. [place] tablet 00 [facility] Yes 20meq Take 1 Tab Univer s (KLOR-CON 1-04 by mouth ity of M20) 20 mEq 00:00: daily. [place] tablet 00 [facility] Yes 20meq Take 1 Tab Univer s (KLOR-CON 1-04 by mouth ity of M20) 20 mEq 00:00: daily. [place] tablet 00 [facility] Yes 20meq Take 1 Tab Univer s (KLOR-CON 1-04 by mouth ity of M20) 20 mEq 00:00: daily. [place] tablet 00 [facility] Yes 20meq Take 1 Tab Univer s (KLOR-CON 1-04 by mouth ity of M20) 20 mEq 00:00: daily. [place] tablet 00 [facility] Yes 20meq Take 1 Tab Univer s (KLOR-CON 1-04 by mouth ity of M20) 20 mEq 00:00: daily. [place] tablet [facility] Yes 20meq Take 1 Tab Univer s (KLOR-CON 1-04 by mouth ity of M20) 20 mEq 00:00: daily. [place] tablet 00 [facility] Yes 20meq Take 1 Tab Univer s (KLOR-CON 1-04 by mouth ity of M20) 20 mEq 00:00: daily. [place] tablet [facility] Yes 20meq Take 1 Tab Univer s (KLOR-CON 1-04 by mouth ity of M20) 20 mEq 00:00: daily. [place] tablet 00 [facility] Yes 20meq Take 1 Tab Univer s (KLOR-CON 1-04 by mouth ity of M20) 20 mEq 00:00: daily. [place] tablet 00 [facility] Yes 20meq Take 1 Tab Univer s (KLOR-CON 1-04 by mouth ity of M20) 20 mEq 00:00: daily. [place] tablet 00 [facility] Yes 20meq Take 1 Tab Univer s (KLOR-CON 1-04 by mouth ity of M20) 20 mEq 00:00: daily. [place] tablet 00 [facility] Yes 20meq Take 1 Tab Univer s (KLOR-CON 1-04 by mouth ity of M20) 20 mEq 00:00: daily. [place] tablet 00 [facility] Yes 20meq Take 1 Tab Univer s (KLOR-CON 1-04 by mouth ity of M20) 20 mEq 00:00: daily. [place] tablet [facility] Yes 20meq Take 1 Tab Univer s (KLOR-CON 1-04 by mouth ity of M20) 20 mEq 00:00: daily. [place] tablet 00 [facility] Yes 20meq Take 1 Tab Univer s (KLOR-CON 1-04 by mouth ity of M20) 20 mEq 00:00: daily. [place] tablet 00 [facility] Yes 20meq Take 1 Tab Univer s (KLOR-CON 1-04 by mouth ity of M20) 20 mEq 00:00: daily. [place] tablet [facility] Yes 20meq Take 1 Tab Univer s (KLOR-CON 1-04 by mouth ity of M20) 20 mEq 00:00: daily. [place] tablet 00 [facility] Yes 20meq Take 1 Tab Univer s (KLOR-CON 1-04 by mouth ity of M20) 20 mEq 00:00: daily. [place] tablet 00 [facility] Yes 20meq Take 1 Tab Univer s (KLOR-CON 1-04 by mouth ity of M20) 20 mEq [place] [facility] Yes 20meq Take 1 Tab Univer s (KLOR-CON 1-04 by mouth ity of M20) 20 mEq 00:[place] [facility] Yes 20meq Take 1 Tab Univer s (KLOR-CON 1-04 by mouth ity of M20) 20 mEq [place] [facility] Yes 20meq Take 1 Tab Univer s (KLOR-CON 1-04 by mouth ity of M20) 20 mEq 00:[place] [facility] Yes 20meq Take 1 Tab Univer s (KLOR-CON 1-04 by mouth ity of M20) 20 mEq 00:[place] [facility] Yes 20meq Take 1 Tab Univer s (KLOR-CON 1-04 by mouth ity of M20) 20 mEq [place] [facility] Yes 20meq Take 1 Tab Univer s (KLOR-CON 1-04 by mouth ity of M20) 20 mEq 00:[place] [facility] Yes 20meq Take 1 Tab Univer s (KLOR-CON 1-04 by mouth ity of M20) 20 mEq 00:[place] [facility] Yes 20meq Take 1 Tab Univer s (KLOR-CON 1-04 by mouth ity of M20) 20 mEq [place] [facility] furosemide 2009-11 Yes 40mg Take [...] 2-16 Puff ity of (ADVAIR 00:00: daily. [place] DISKUS) 00 Medical 250-50 Branch mcg/Dose inhalation [...] inhalation disk blood sugar 2009-11 Yes before [facility] ers diagnostic 2-16 meals. ity of (FREESTYLE [...] inhalation disk blood sugar 2009-11 Yes before [facility] ers diagnostic 2-16 meals. ity of (FREESTYLE [...] inhalation disk blood sugar 2009-11 Yes before [facility] ers diagnostic 2-16 meals. ity of (FREESTYLE [...] inhalation disk blood sugar 2009-11 Yes before [facility] ers diagnostic 2-16 meals. ity of (FREESTYLE [...] inhalation disk blood sugar 2009-11 Yes before [facility] ers diagnostic 2-16 meals. ity of (FREESTYLE [...] inhalation disk blood sugar 2009-11 Yes before [facility] ers diagnostic 2-16 meals. ity of (FREESTYLE [...] inhalation disk blood sugar 2009-11 Yes before [facility] ers diagnostic 2-16 meals. ity of (FREESTYLE [...] inhalation disk blood sugar 2009-11 Yes before [facility] ers diagnostic 2-16 meals. ity of (FREESTYLE [...] inhalation disk blood sugar 2009-11 Yes before [facility] ers diagnostic 2-16 meals. ity of (FREESTYLE [...] inhalation disk blood sugar 2009-11 Yes before [facility] ers diagnostic 2-16 meals. ity of (FREESTYLE [...] inhalation disk blood sugar 2009-11 Yes before [facility] ers diagnostic 2-16 meals. ity of (FREESTYLE [...] inhalation disk blood sugar 2009-11 Yes before [facility] ers diagnostic 2-16 meals. ity of (FREESTYLE [...] inhalation disk blood sugar 2009-11 Yes before [facility] ers diagnostic 2-16 meals. ity of (FREESTYLE [...] inhalation disk blood sugar 2009-11 Yes before [facility] ers diagnostic 2-16 meals. ity of (FREESTYLE [...] inhalation disk blood sugar 2009-11 Yes before [facility] ers diagnostic 2-16 meals. ity of (FREESTYLE [...] inhalation disk blood sugar 2009-11 Yes before [facility] ers diagnostic 2-16 meals. ity of (FREESTYLE [...] inhalation disk blood sugar 2009-11 Yes before [facility] ers diagnostic 2-16 meals. ity of (FREESTYLE [...] inhalation disk blood sugar 2009-11 Yes before [facility] ers diagnostic 2-16 meals. ity of (FREESTYLE [...] inhalation disk blood sugar 2009-11 Yes before [facility] ers diagnostic 2-16 meals. ity of (FREESTYLE [...] inhalation disk blood sugar 2009-11 Yes before [facility] ers diagnostic 2-16 meals. ity of (FREESTYLE [...] inhalation disk blood sugar 2009-11 Yes before [facility] ers diagnostic 2-16 meals. ity of (FREESTYLE [...] inhalation disk blood sugar 2009-11 Yes before [facility] ers diagnostic 2-16 meals. ity of (FREESTYLE [...] inhalation disk blood sugar 2009-11 Yes before [facility] ers diagnostic 2-16 meals. ity of (FREESTYLE [...] inhalation disk blood sugar 2009-11 Yes before [facility] ers diagnostic 2-16 meals. ity of (FREESTYLE [...] inhalation disk blood sugar 2009-11 Yes before [facility] ers diagnostic 2-16 meals. ity of (FREESTYLE [...] inhalation disk blood sugar 2009-11 Yes before [facility] ers diagnostic 2-16 meals. ity of (FREESTYLE [...] inhalation disk blood sugar 2009-11 Yes before [facility] ers diagnostic 2-16 meals. ity of (FREESTYLE 00:00: [place] LITE 00 Medical STRIPS) Branch strip ALBUTEROL 2009-11 2020- No 2{puff} Inhale 2 Univers SULFATE 2-16 04-08 Puffs as ity of (VENTOLIN 00:00: 00[place] H[place] IN[place]ALE[place] 00 :00 [facility] Metoprolol Metoprolol No Metoprolol Tartrate Tartrate Tartrate [...] D3 1.25 MG 1.25 MG 1.25 MG (77488 UT) (15186 UT) (13399 UT) Metoprolol Metoprolol No Metoprolol Tartrate Tartrate [...] D3 1.25 MG 1.25 MG 1.25 MG (66292 UT) (59591 UT) (24700 UT) Atorvastati Atorvastati No Atorvastat n Calcium [...] D3 1.25 MG 1.25 MG 1.25 MG (17940 UT) (28560 UT) (33805 UT) Atorvastati Atorvastati No Atorvastat n Calcium [...] D3 1.25 MG 1.25 MG 1.25 MG (53960 UT) (33251 UT) (34004 UT) Atorvastati Atorvastati No Atorvastat n Calcium [...] D3 1.25 MG 1.25 MG 1.25 MG (37596 UT) (75787 UT) (43292 UT) ProAir HFA ProAir HFA No 2{puffs [...] Ellipta 100-25 100-25 100-25 MCG/INH MCG/INH MCG/INH Immunizations Ordered Filled Immunization Date Status Comments Sourc e Immunization Name Name Pneumovax (PPSV23) Pneumovax (PPSV23) 2022-03-25 [facility] Pneumovax (PPSV23) Pneumovax (PPSV23) 2022-03-25 [facility] 15:04:00 [facility] Pneumovax (PPSV23) Pneumovax (PPSV23) 2022-03-25 [facility] 15:04:00 [facility] Pneumovax (PPSV23) Pneumovax (PPSV23) 2022-03-25 [facility]pleted [facility] 15:04:00 [facility] Pneumovax (PPSV23) Pneumovax (PPSV23) 2022-03-25 [facility]pleted [facility] 15:04:00 [facility] Pneumovax (PPSV23) Pneumovax (PPSV23) 2022-03-25 [facility]pleted [facility] 15:04:00 [facility] Pneumovax (PPSV23) Pneumovax (PPSV23) 2022-03-25 Completed [facility] 15:04:00 [facility] Pneumovax (PPSV23) Pneumovax (PPSV23) 2022-03-25 Completed [facility] 15:04:00 [facility] Pneumovax (PPSV23) Pneumovax (PPSV23) 2022-03-25 Completed [facility] 15:04:00 [facility] Pneumovax (PPSV23) Pneumovax (PPSV23) 2022-03-25 Completed [facility] 15:04:00 [facility] Pneumovax (PPSV23) Pneumovax (PPSV23) 2022-03-25 Completed [facility] 15:04:00 [facility] FluAD FluAD 2021-10-15 Completed [facility] - 13:16:00 [facility] FluAD FluAD 2021-10-15 Completed [facility] 13:16:00 [facility] FluAD FluAD 2021-10-15 Completed [facility] 13:16:00 [facility] FluAD FluAD 2021-10-15 Completed [facility] - 13:16:00 [facility] FluAD FluAD 2021-10-15 Completed [facility] - 13:16:00 [facility] FluAD FluAD 2021-10-15 Completed [facility] 13:16:00 [facility] FluAD FluAD 2021-10-15 Completed [facility] - 13:16:00 [facility] FluAD FluAD 2021-10-15 Completed [facility] 13:16:00 [facility] FluAD FluAD 2021-10-15 Completed [facility] 13:16:00 [facility] FluAD FluAD 2021-10-15 Completed [facility] 13:16:00 [facility] FluAD FluAD 2021-10-15 Completed [facility] 13:16:00 [facility] FluAD FluAD 2021-10-15 Completed [facility] 13:16:00 [facility] FluAD FluAD 2021-10-15 Completed [facility] - 13:16:00 [facility] FluAD FluAD 2020-08-05 Completed [facility] 16:12:00 [facility] Prevnar 13 (PCV13) Prevnar 13 (PCV13) 2020-08-05 Completed [facility] 16:12:00 [facility] FluAD FluAD 2020-08-05 Completed [facility] 16:12:00 [facility] Prevnar 13 (PCV13) Prevnar 13 (PCV13) 2020-08-05 Completed [facility] 16:12:00 [facility] FluAD FluAD 2020-08-05 Completed [facility] 16:12:00 [facility] Prevnar 13 (PCV13) Prevnar 13 (PCV13) 2020-08-05 Completed [facility] 16:12:00 [facility] FluAD FluAD 2020-08-05 Completed [facility] 16:12:00 [facility] Prevnar 13 (PCV13) Prevnar 13 (PCV13) 2020-08-05 Completed [facility] 16:12:00 [facility] FluAD FluAD 2020-08-05 Completed [facility] 16:12:00 [facility] Prevnar 13 (PCV13) Prevnar 13 (PCV13) 2020-08-05 Completed [facility] 16:12:00 [facility] FluAD FluAD 2020-08-05 Completed [facility] 16:12:00 [facility] Prevnar 13 (PCV13) Prevnar 13 (PCV13) 2020-08-05 Completed [facility] 16:12:00 [facility] FluAD FluAD 2020-08-05 Completed [facility] 16:12:00 [facility] Prevnar 13 (PCV13) Prevnar 13 (PCV13) 2020-08-05 Completed [facility] 16:12:00 [facility] FluAD FluAD 2020-08-05 Completed [facility] 16:12:00 [facility] Prevnar 13 (PCV13) Prevnar 13 (PCV13) 2020-08-05 Completed [facility] 16:12:00 [facility] FluAD FluAD 2020-08-05 Completed [facility] 16:12:00 [facility] Prevnar 13 (PCV13) Prevnar 13 (PCV13) 2020-08-05 Completed [facility] 16:12:00 [facility] FluAD FluAD 2020-08-05 Completed [facility] 16:12:00 [facility] Prevnar 13 (PCV13) Prevnar 13 (PCV13) 2020-08-05 Completed [facility] 16:12:00 [facility] FluAD FluAD 2020-08-05 Completed [facility] 16:12:00 [facility] Prevnar 13 (PCV13) Prevnar 13 (PCV13) 2020-08-05 Completed [facility] 16:12:00 [facility] FluAD FluAD 2020-08-05 Completed [facility] 16:12:00 [facility] Prevnar 13 (PCV13) Prevnar 13 (PCV13) 2020-08-05 Completed [facility] 16:12:00 [facility] FluAD FluAD 2020-08-05 Completed [facility] 16:12:00 [facility] Prevnar 13 (PCV13) Prevnar 13 (PCV13) 2020-08-05 Completed [facility] 16:12:00 [facility] FluAD FluAD 2020-08-05 Completed [facility] 16:12:00 [facility] Prevnar 13 (PCV13) Prevnar 13 (PCV13) 2020-08-05 Completed [facility] 16:12:00 [facility] FluAD FluAD 2020-08-05 Completed [facility] 16:12:00 [facility] Prevnar 13 (PCV13) Prevnar 13 (PCV13) 2020-08-05 Completed [facility] 16:12:00 [facility] FluAD FluAD 2020-08-05 Completed [facility] 16:12:00 [facility] Prevnar 13 (PCV13) Prevnar 13 (PCV13) 2020-08-05 Completed [facility] 16:12:00 [facility] FluAD FluAD 2020-08-05 Completed [facility] 16:12:00 [facility] Prevnar 13 (PCV13) Prevnar 13 (PCV13) 2020-08-05 Completed [facility] 16:12:00 [facility] FluAD FluAD 2020-08-05 Completed [facility] 16:12:00 [facility] Prevnar 13 (PCV13) Prevnar 13 (PCV13) 2020-08-05 Completed [facility] 16:12:00 [facility] FluAD FluAD 2020-08-05 Completed [facility] 16:12:00 [facility] Prevnar 13 (PCV13) Prevnar 13 (PCV13) 2020-08-05 Completed [facility] 16:12:00 [facility] Influenza High Dose 2020-02-22 Completed [facility] Influ[facility] High Dose 2020-02-22 Completed [facility] Influenza High Dose 2020-02-22 Completed [facility] Influenza High Dose 2020-02-22 Completed [facility] Influenza High Dose 2020-02-22 Completed [facility] Influenza High Dose 2020-02-22 Completed [facility] Influenza High Dose 2020-02-22 Completed [facility] Influenza High Dose 2020-02-22 Completed [facility] Influenza High Dose 2020-02-22 Completed [facility] Influenza High Dose 2020-02-22 Completed [facility] Influenza High Dose 2020-02-22 Completed [facility] Influenza High Dose 2020-02-22 Completed [facility] Influenza High Dose 2020-02-22 Completed [facility] Influenza High Dose 2020-02-22 Completed [facility] Influenza High Dose 2020-02-22 Completed [facility] Influenza High Dose 2020-02-22 Completed [facility] Influenza High Dose 2020-02-22 Completed [facility] Influenza High Dose 2020-02-22 Completed [facility] Influenza High Dose 2020-02-22 Completed [facility] Influenza High Dose 2020-02-22 Completed [facility] Influenza High Dose 2020-02-22 Completed [facility] Influenza High Dose 2020-02-22 Completed [facility] Influenza High Dose 2020-02-22 Completed [facility] Influenza High Dose 2020-02-22 Completed [facility] Influenza High Dose 2020-02-22 Completed [facility] Influenza High Dose 2020-02-22 Completed [facility] Influenza High Dose 2020-02-22 Completed [facility] Influenza High Dose 2020-02-22 Completed [facility] Influenza High Dose 2020-02-22 Completed [facility] Influenza High Dose 2020-02-22 Completed [facility] Vital Signs Vital Name Observation Time Observation Value Comments Source WEIGHT 2023-05-15 20:01:00 87.998 kg HEIGHT 2023-05-15 20:01:00 165.1 cm WEIGHT 2023-05-15 20:01:00 87.998 kg HEIGHT 2023-05-15 20:01:00 165.1 cm height 2022-09-23 11:20:00 65.5 [in_i] [facility] weight 2022-09-23 11:20:00 192.6 [lb_av] [facility] temperature 2022-09-23 11:20:00 97.4 [degF] [facility] bmi 2022-09-23 11:20:00 31.56 kg/m2 [facility] oximetry 2022-09-23 11:20:00 98 % [facility] respiratory rate 2022-09-23 11:20:00 17 /min [facility] blood pressure 2022-09-23 11:20:00 135 mm[Hg] [facility] systolic [facility] blood pressure 2022-09-23 11:20:00 74 mm[Hg] [facility] diastolic [facility] height 2022-06-24 11:00:00 65.5 [in_i] [facility] weight 2022-06-24 11:00:00 185 [lb_av] [facility] temperature 2022-06-24 11:00:00 97.6 [degF] Common [facility] bmi 2022-06-24 11:00:00 30.31 kg/m2 [facility] oximetry 2022-06-24 11:00:00 100 % [facility] respiratory rate 2022-06-24 11:00:00 16 /min [facility] blood pressure 2022-06-24 11:00:00 132 mm[Hg] Common [facility] - systolic [facility] blood pressure 2022-06-24 11:00:00 74 mm[Hg] [facility] diastolic [facility] height 2022-05-21 15:00:00 65.5 [in_i] [facility] weight 2022-05-21 15:00:00 186.2 [lb_av] [facility] temperature 2022-05-21 15:00:00 97.9 [degF] [facility] bmi 2022-05-21 15:00:00 30.51 kg/m2 [facility] oximetry 2022-05-21 15:00:00 100 % [facility] respiratory rate 2022-05-21 15:00:00 18 /min [facility] blood pressure 2022-05-21 15:00:00 133 mm[Hg] Common [facility] - systolic [facility] blood pressure 2022-05-21 15:00:00 62 mm[Hg] [facility] diastolic [facility] height 2022-03-25 13:40:00 65.5 [in_i] [facility] weight 2022-03-25 13:40:00 200.4 [lb_av] [facility] temperature 2022-03-25 13:40:00 98.1 [degF] [facility] bmi 2022-03-25 13:40:00 32.84 kg/m2 [facility] oximetry 2022-03-25 13:40:00 100 % [facility] respiratory rate 2022-03-25 13:40:00 18 /min [facility] blood pressure 2022-03-25 13:40:00 132 mm[Hg] [facility] systolic [facility] blood pressure 2022-03-25 13:40:00 72 mm[Hg] [facility] diastolic [facility] height 2022-03-25 14:00:00 65.5 [in_i] [facility] weight 2022-03-25 14:00:00 200.4 [lb_av] Common [facility] temperature 2022-03-25 14:00:00 98.1 [degF] [facility] bmi 2022-03-25 14:00:00 32.84 kg/m2 [facility] oximetry 2022-03-25 14:00:00 100 % [facility] respiratory rate 2022-03-25 14:00:00 18 /min [facility] blood pressure 2022-03-25 14:00:00 132 mm[Hg] Common [facility] - systolic [facility] blood pressure 2022-03-25 14:00:00 72 mm[Hg] [facility] - diastolic [facility] height 2021-11-05 13:20:00 65.5 [in_i] [facility] weight 2021-11-05 13:20:00 201.6 [lb_av] [facility] temperature 2021-11-05 13:20:00 97.2 [degF] [facility] bmi 2021-11-05 13:20:00 33.03 kg/m2 [facility] oximetry 2021-11-05 13:20:00 100 % [facility] respiratory rate 2021-11-05 13:20:00 17 /min [facility] blood pressure 2021-11-05 13:20:00 135 mm[Hg] Common [facility] - systolic [facility] blood pressure 2021-11-05 13:20:00 72 mm[Hg] Common [facility] - diastolic [facility] height 2021-08-13 14:00:00 65.5 [in_i] [facility] weight 2021-08-13 14:00:00 213.4 [lb_av] [facility] temperature 2021-08-13 14:00:00 97.2 [degF] [facility] bmi 2021-08-13 14:00:00 34.97 kg/m2 [facility] oximetry 2021-08-13 14:00:00 99 % [facility] respiratory rate 2021-08-13 14:00:00 17 /min [facility] blood pressure 2021-08-13 14:00:00 132 mm[Hg] [facility] systolic [facility] blood pressure 2021-08-13 14:00:00 70 mm[Hg] [facility] diastolic [facility] Systolic blood 2021-05-27 15:32:00 146 mm[Hg] Univer sity of [facility] Diastolic blood 2021-05-27 15:32:00 50 mm[Hg] Unive rsity of [facility] Heart rate 2021-05-27 15:32:00 62 /min [facility] Oxygen saturation in 2021-05-27 15:32:00 98 /min University Arterial blood by [facility] Pulse oximetry Branch Body height 2021-05-27 14:28:00 165.1 cm [facility] Body weight 2021-05-27 14:28:00 99.791 kg [facility] BMI 2021-05-27 14:28:00 36.61 kg/m2 [facility] Systolic blood 2021-05-02 15:04:00 139 mm[Hg] Univer sity of [facility] Diastolic blood 2021-05-02 15:04:00 74 mm[Hg] Unive rsity of [facility] Heart rate 2021-05-02 15:04:00 57 /min [facility] Body temperature 2021-05-02 15:04:00 36.5 Jami Univ ersity [facility] Respiratory rate 2021-05-02 15:04:00 16 /min [facility] Body height 2021-05-02 15:04:00 165.1 cm [facility] Body weight 2021-05-02 15:04:00 91.173 kg [facility] BMI 2021-05-02 15:04:00 33.45 kg/m2 [facility] [place] [facility] Oxygen saturation in 2021-05-02 15:04:00 100 /min University of Arterial blood by [facility] Pulse oximetry Branch Systolic blood 2021-03-28 15:35:00 165 mm[Hg] Univer sity of pressure [place] [facility] Diastolic blood 2021-03-28 15:35:00 58 mm[Hg] Unive rsity of pressure [place] [facility] Heart rate 2021-03-28 15:35:00 56 /min [facility] [place] [facility] Body temperature 2021-03-28 15:35:00 36.33 Jami Univ ers[facility] [place] [facility] Body height 2021-03-28 15:35:00 165.1 cm [facility] [place] [facility] Body weight 2021-03-28 15:35:00 96.616 kg [facility] [place] [facility] BMI 2021-03-28 15:35:00 35.45 kg/m2 [facility] [place] [facility] Systolic blood 2021-01-29 16:57:00 142 mm[Hg] Univer sity of pressure [place] [facility] Diastolic blood 2021-01-29 16:57:00 62 mm[Hg] Unive rsity of pressure [place] [facility] Heart rate 2021-01-29 16:57:00 55 /min [facility] [place] [facility] Body temperature 2021-01-29 16:57:00 36.44 Jami Univ ers[facility] [place] [facility] Respiratory rate 2021-01-29 16:57:00 18 /min Univ ersity of [place] [facility] Body height 2021-01-29 16:57:00 165.1 cm [facility] [place] [facility] Body weight 2021-01-29 16:57:00 96.616 kg [facility] [place] [facility] BMI 2021-01-29 16:57:00 35.45 kg/m2 [facility] [place] [facility] Oxygen saturation in 2021-01-29 16:57:00 99 /min University of Arterial blood by [facility] Pulse oximetry Branch Systolic blood 2021-01-29 16:57:00 142 mm[Hg] Univer sity of pressure [place] [facility] Diastolic blood 2021-01-29 16:57:00 62 mm[Hg] Unive rsity of pressure [place] [facility] Heart rate 2021-01-29 16:57:00 55 /min [facility] [place] [facility] Body temperature 2021-01-29 16:57:00 36.44 Jami Univ ers[facility] [place] [facility] Respiratory rate 2021-01-29 16:57:00 18 /min Univ ersity [facility] [place] [facility] Body height 2021-01-29 16:57:00 165.1 cm [facility] [place] [facility] Body weight 2021-01-29 16:57:00 96.616 kg [facility] [place] [facility] BMI 2021-01-29 16:57:00 35.45 kg/m2 [facility] [place] [facility] Oxygen saturation in 2021-01-29 16:57:00 99 /min University of Arterial blood by [facility] Pulse oximetry Branch Systolic blood 2021-01-03 20:08:00 179 mm[Hg] Univer sity of pressure [place] [facility] Diastolic blood 2021-01-03 20:08:00 60 mm[Hg] Unive rsity of pressure [place] [facility] Heart rate 2021-01-03 20:08:00 67 /min [facility] [place] [facility] Oxygen saturation in 2021-01-03 20:08:00 92 /min University of Arterial blood by [facility] janett Pulse oximetry Branch Body [...] 92 /min University of Arterial blood by [facility] janett Pulse oximetry Branch Body weight 2021-01-03 19:10:00 88.905 kg Universi ty [facility] BMI 2021-01-03 19:10:00 32.62 kg/m2 [facility] Systolic blood 2020-11-19 19:10:00 217 mm[Hg] [facility] Diastolic blood 2020-11-19 19:10:00 82 mm[Hg] [facility] Heart rate 2020-11-19 19:10:00 56 /min [facility] Respiratory rate 2020-11-19 19:10:00 16 /min [facility] Body weight 2020-11-19 19:10:00 84.823 kg [facility] BMI 2020-11-19 19:10:00 31.12 kg/m2 [facility] Oxygen saturation in 2020-11-19 19:10:00 98 /min [facility] Arterial blood by [place] [employer] janett Pulse oximetry Branch Systolic blood 2020-11-19 19:10:00 217 mm[Hg] [facility] Diastolic blood 2020-11-19 19:10:00 82 mm[Hg] [facility] Heart rate 2020-11-19 19:10:00 56 /min [facility] Respiratory rate 2020-11-19 19:10:00 16 /min [facility] Body weight 2020-11-19 19:10:00 84.823 kg [facility] BMI 2020-11-19 19:10:00 31.12 kg/m2 [facility] Oxygen saturation in 2020-11-19 19:10:00 98 /min [facility] Arterial blood by [place] [employer] janett Pulse oximetry Branch Systolic blood 2020-10-22 20:15:00 193 mm[Hg] [facility] Diastolic blood 2020-10-22 20:15:00 86 mm[Hg] [facility] Heart rate 2020-10-22 20:15:00 63 /min [facility] Respiratory rate 2020-10-22 20:15:00 18 /min [facility] Oxygen saturation in 2020-10-22 20:15:00 96 /min [facility] Arterial blood by [place] [employer] janett Pulse oxim[facility] Branch Body temperature 2020-10-22 [...] 96 /min [facility] Arterial blood by [facility] janett Pulse oximetry Branch Body [...] 15:00:00 61 mm[Hg] [facility] Heart rate 2020-02-25 15:00:00 68 /min [facility] Respiratory rate 2020-02-25 15:00:00 19 /min [facility] Oxygen saturation in 2020-02-25 15:00:00 99 /min [facility] Arterial blood by [facility] janett Pulse oximetry Branch Body temperature 2020-02-25 11:26:00 37.22 Jami [facility] Body height 2020-02-25 11:26:00 165.1 cm [facility] Body weight 2020-02-25 11:26:00 83.462 kg [facility] BMI 2020-02-25 11:26:00 30.62 kg/m2 [facility] Systolic blood 2020-02-22 12:42:00 151 mm[Hg] [facility] Diastolic blood 2020-02-22 12:42:00 62 mm[Hg] [facility] Heart rate 2020-02-22 12:42:00 56 /min Universi [facility] Body temperature 2020-02-22 12:42:00 36.5 Jami Univ ersity [facility] Respiratory rate 2020-02-22 12:42:00 18 /min [facility] O[facility] saturation in 2020-02-22 12:42:00 96 /min [facility] Arterial blood by [facility] Pulse oximetry Ethel Body weight 2020-02-22 00:30:00 83.462 kg [facility] BMI 2020-02-22 00:30:00 30.62 kg/m2 [facility] Body height 2020-02-21 00:24:00 165.1 cm [facility] Systolic blood 2023-05-28 18:17:00 149 mm[Hg] Method [facility] pressure Diastolic blood 2023-05-28 18:17:00 61 mm[Hg] [facility] pressure Heart rate 2023-05-28 18:17:00 44 /min [facility] Body temperature 2023-05-28 18:17:00 35.28 Jami [facility] Respiratory rate 2023-05-28 18:17:00 18 /min [facility] Body height 2023-05-28 18:17:00 165.1 cm [facility] Body weight 2023-05-28 18:17:00 90.855 kg [facility] BMI 2023-05-28 18:17:00 33.33 kg/m2 [facility] Oxygen saturation in 2023-05-28 18:17:00 100 /min [facility] Arterial blood by Pulse oximetry Systolic blood 2022-12-11 18:27:00 164 mm[Hg] Method [facility] pressure Diastolic blood 2022-12-11 18:27:00 55 mm[Hg] [facility] pressure Heart rate 2022-12-11 18:27:00 53 /min [facility] Body temperature 2022-12-11 18:27:00 35.83 Jami [facility] Respiratory rate 2022-12-11 18:27:00 18 /min [facility] Body height 2022-12-11 18:27:00 165.1 cm [facility] Body weight 2022-12-11 18:27:00 87.635 kg [facility] BMI 2022-12-11 18:27:00 32.15 kg/m2 [facility] Oxygen saturation in 2022-12-11 18:27:00 99 /min [facility] Arterial blood by Pulse oximetry Procedures Procedure Date / Time Performing Clinician Source Performed BASIC METABOLIC PANEL 2023-06-13 16:02[facility] HEPATIC FUNCTION PANEL 2023-06-13 16:02:00 [facility] PROTHROMBIN TIME WITH INR 2023-06-13 16:02:00 [facility] CBC WITH PLATELET AND 2023-06-13 16:02:00 [facility] DIFFERENTIAL TTE COMPLETE, WO 2023-05-28 17:36:00 [facility] CONTRAST, W AGITATED SALINE ([id number]) MRI ABDOMEN W WO CONTRAST 2023-05-28 16:00:00 [facility] BASIC METABOLIC PANEL 2023-05-28 14:30:00 JoseluisNabeel Hogan [facility] HEPATIC FUNCTION PANEL 2023-05-28 14:30:00 [facility] PROTHROMBIN TIME WITH INR 2023-05-28 14:30:00 [facility] PARTIAL THROMBOPLASTIN 2023-05-28 14:30:00 [facility] TIME (PTT) CBC WITH PLATELET AND 2023-05-28 14:30:00 [facility] DIFFERENTIAL ALPHA FETOPROTEIN 2023-05-28 14:30:00 [facility] MAGNESIUM LEVEL 2023-05-28 14:30:00 [facility] PHOSPHORUS LEVEL 2023-05-28 14:30:00 [facility] ESTIMATED GFR 2023-05-28 14:30:00 [facility] MRI ABDOMEN W WO CONTRAST 2022-12-11 17:40:00 [facility] TTE COMPLETE, WO 2022-12-11 16:18:00 [facility] CONTRAST, W AGITATED SALINE ([id number]) BASIC METABOLIC PANEL 2022-12-11 14:20:00 [facility] HEPATIC FUNCTION PANEL 2022-12-11 14:20:00 [facility] PROTHROMBIN TIME WITH INR 2022-12-11 14:20:00 [facility] PARTIAL THROMBOPLASTIN 2022-12-11 14:20:00 [facility] TIME (PTT) CBC WITH PLATELET AND 2022-12-11 14:20:00 [facility] DIFFERENTIAL ALPHA FETOPROTEIN 2022-12-11 14:20:00 [facility] MAGNESIUM LEVEL 2022-12-11 14:20:00 [facility] PHOSPHORUS LEVEL 2022-12-11 14:20:00 [facility] ESTIMATED GFR 2022-12-11 14:20:00 [facility] TTE COMPLETE, WO 2022-05-15 19:40:00 [facility] CONTRAST, W AGITATED SALINE ([id number]) MRI ABDOMEN W WO CONTRAST 2022-05-15 15:30:00 [facility] BASIC METABOLIC PANEL 2022-05-15 14:11:00 [facility] Center[facility]el raphael [facility] HEPATIC FUNCTION PANEL 2022-05-15 14:11:00 JoseluisNabeel [facility] PROTHROMBIN TIME WITH INR 2022-05-15 14:11:00 [facility] PARTIAL THROMBOPLASTIN 2022-05-15 14:11:00 [facility] TIME (PTT) CBC WITH PLATELET AND 2022-05-15 14:11:00 [facility] DIFFERENTIAL ALPHA FETOPROTEIN 2022-05-15 14:11:00 [facility] MAGNESIUM LEVEL 2022-05-15 14:11:00 [facility] PHOSPHORUS LEVEL 2022-05-15 14:11:00 [facility] ESTIMATED GFR 2022-05-15 14:11:00 [facility] IR 2021-05-02 15:09:28 Catracho Thornton [facility] PARACENTESIS/PERITONECENT C Medica l Branch ESIS WITH IMAGING IR 2021-03-28 15:29:30 Catracho Thornton [facility] PARACENTESIS/PERITONECENT C Medica l Branch ESIS WITH IMAGING ASSIGNMENT OF BENEFITS 2021-03-28 13:44:31 Doctor Unassigned, [facility] [place] [facility] PHYSICIAN ORDERS 2021-03-21 05:01:00 Doctor Unassigned, [facility] [place] [facility] [id number] 2021-02-18 00:00:00 WEAKI [facility] [id number] 2021-02-15 00:00:00 UGBST [facility] [id number] 2021-02-15 00:00:00 UGBST [facility] IR 2021-01-29 16:42:00 Catracho Thornton [facility] PARACENTESIS/PERITONECENT C Medica l Branch ESIS WITH IMAGING ASSIGNMENT OF BENEFITS 2021-01-29 15:10:15 Doctor Unassigned, [facility] [place] IR 2021-01-03 19:17:21 Catracho Thornton [facility] PARACENTESIS/PERITONECENT C Medica l Branch ESIS WITH IMAGING ASSIGNMENT OF BENEFITS 2021-01-03 17:46:32 Doctor Unassigned, [facility] [place] [facility] PHYSICIAN ORDERS 2020-12-25 06:01:00 Doctor Unassigned, [facility] [place] [facility] IR 2020-11-19 20:14:13 Catracho Thornton [facility] PARACENTESIS/PERITONECENT C Medica l Branch ESIS WITH IMAGING IR 2020-10-22 20:39:51 Lachelle wisam [facility] PARACENTESIS/PERITONECENT C Medica l Branch ESIS WITH IMAGING FERRITIN SERUM 2020-10-02 15:25:00 Lachelle wisma [facility] Medical Ethel IRON 2020-10-02 15:25:00 Lachelle wisam [facility] TOTAL IRON BINDING 2020-10-02 15:25:00 Catracho Thornton [facility] CAPACITY Medical Branch HEPATIC FUNCTION PANEL 2020-10-02 15:25:00 Catracho Thornton [facility] ([id number]) (ALB,T.PRO,BILI Medical Branch T,BU/BC,ALT,AST,ALK PHOS) CBC WITH DIFF 2020-10-02 15:25:00 Catracho Thornton [facility] PROTHROMBIN TIME / INR 2020-10-02 15:25:00 Catracho Thornton [facility] ALPHA FETOPROTEIN 2020-10-02 15:25:00 Catracho Thornton [facility] HEPATITIS B SURFACE 2020-10-02 15:25:00 [facility] ANTIBODY Medical Ethel HEPATITIS B SURFACE 2020-10-02 15:25:00 Catracho Thornton [facility] ANTIGEN Medical Branch HCV ANTIBODY 2020-10-02 15:25:00 Catracho Thornton [facility] HBC ANTIBODY (IGM & IGG) 2020-10-02 15:25:00 Catracho Thornton [facility] HAV ANTIBODY (IGG AND 2020-10-02 15:25:00 Catracho Thornton [facility] IGM) Medical Branch PHYSICIAN ORDERS 2020-10-02 06:01:00 Doctor Unassigned, [facility] [place] [facility] AUTHORIZATION FOR RELEASE 2020-03-21 05:01:00 Doctor Unassigned, [facility] [place] [facility] CT HEAD WO CONTRAST 2020-02-25 13:41:27 Amber Nunez [facility] PROTHROMBIN TIME / INR 2020-02-25 12:44:00 Mavis Hernandez [facility] ACTIVATED PARTIAL 2020-02-25 12:44:00 Mavis Hernandez [facility] THRLAS [facility] URINALYSIS 2020-02-25 12:25:00 Leonides Edwards [facility] ADC / LCC - DRUG SCREEN 2020-02-25 12:25:00 Leonides Edwards [facility] AMMONIA, PLASMA 2020-02-25 12:14:00 Leonides Edwards [facility] TROPONIN I 2020-02-25 11:46:00 Mavis Hernandez [facility] SALICYLATE 2020-02-25 11:46:00 Leonides Edwards [facility] LIPASE 2020-02-25 11:40:00 IbikunLeonides renee [facility] HEPATIC FUNCTION PANEL 2020-02-25 11:40:00 Leonides Edwards [facility] ([id number]) ([facility] T,BU/BC,ALT,AST,ALK PHOS) BASIC METABOLIC PANEL 2020-02-25 11:40:00 Leonides Edwards Un [facility] (NA, K, CL, CO2, GLUCOSE, Medica l Branch BUN, CREATININE, CA) CBC WITH DIFFERENTIAL 2020-02-25 11:40:00 Leonides Edwards Un [facility] EKG-12 LEAD 2020-02-25 11:30:34 Leonides Edwards [facility] AMMONIA, PLASMA 2020-02-22 10:18:00 Fausto Zuñiga [facility] BASIC METABOLIC PANEL 2020-02-22 10:18:00 Fausto Zuñiga [facility] (NA, K, CL, CO2, GLUCOSE, Medica l Branch BUN, CREATININE, CA) POCT GLUCOSE (AUTOMATED) 2020-02-22 01:06:00 Fausto Zuñiga [facility] POCT GLUCOSE (AUTOMATED) 2020-02-21 16:35:00 Fausto Zuñiga [facility] AMMONIA, PLASMA 2020-02-21 14:26:00 Fausto Zuñiga [facility] POCT GLUCOSE (AUTOMATED) 2020-02-21 12:35:00 Fausto Zuñiga [facility] BASIC METABOLIC PANEL 2020-02-21 09:00:00 Geno Montenegro [facility] (NA, K, CL, CO2, GLUCOSE, Medica l Branch BUN, CREATININE, CA) CBC WITH DIFFERENTIAL 2020-02-21 09:00:00 Geno Montenegro [facility] POCT GLUCOSE (AUTOMATED) 2020-02-21 01:38:00 Fausto Zuñiga [facility] CORONAVIRUS COVID-19 2020-02-20 23:07:[address] [facility] EKG-12 LEAD 2020-02-20 22:28:58 Hudson Santamaria [facility] XR CHEST 2 VW 2020-02-20 22:20:53 Hudson Santamaria [facility] CT HEAD WO CONTRAST 2020-02-20 22:18:00 Hudson Santamaria [facility] NOTICE OF PRIVACY 2020-02-20 22:13:06 Doctor Unassigned, [facility] PRACT[facility] [place] [facility] LIPASE 2020-02-20 22:05:00 Hudson Santaamria [facility] MAGNESIUM 2020-02-20 22:05:00 Geno Montenegro [facility] AMMONIA, PLASMA 2020-02-20 22:05:00 Hudson Santamaria [facility] TROPONIN I 2020-02-20 22:05:00 Hudson Santamaria [facility] COMP. METABOLIC PANEL 2020-02-20 22:05:00 Hudson Santamaria [facility] ([id number]) [facility] LIPID PANEL ([id number])(TOTAL 2020-02-20 22:05:[address] [facility] CHOLESTEROL, Medical Branch TRIGLYCERIDES, HDL) CBC WITH DIFFERENTIAL 2020-02-20 22:05:00 Hudson Santamaria [facility] GLYCOSYLATED HEMOGLOBIN 2020-02-20 22:05:[address] [facility] (A1C) [facility] URINALYSIS 2020-02-20 22:05:00 Hudson Santamaria [facility] EKG-12 LEAD 2020-02-20 21:52:17 Hudson Santamaria [facility] Plan of Care Planned Activity Planned Date Details Comments Source Future Scheduled 2023-06-12 Screening for [facility] Test 13:10:15 malignant neoplasm of colon (procedure) [code = 899051619] Future Scheduled 2023-06-12 Screening for [facility] Test 13:10:15 malignant neoplasm of colon (procedure) [code = 085249762] Future Scheduled 2023-06-12 Screening for [facility] Test 13:10:15 malignant neoplasm of colon (procedure) [code = 185381297] Future Scheduled 2023-06-12 DIABETES: RETINAL [facility] 13:10:15 EYE EXAM [code = DIABETES: RETINAL EYE EXAM] Future Scheduled 2023-06-12 DIABETIC FOOT EXAM [facility] Test 13:10:15 [code = DIABETIC FOOT EXAM] Future Scheduled 2023-06-12 BREAST CANCER [facility] Test 13:10:15 SCREENING [code = BREAST CANCER SCREENING] Future Scheduled 2023-06-12 Screening for [facility] Test 13:10:15 malignant neoplasm of colon (procedure) [code = 661835319] Future Scheduled 2023-06-12 Screening for [facility] Test 13:10:15 malignant neoplasm of colon (procedure) [code = 314990872] Future Scheduled 2023-06-12 SHINGLES VACCINES [facility] 13:10:15 (1 of 2) [code = SHINGLES VACCINES (1 of 2)] Future Scheduled 2023-06-12 [facility] B [facility] 13:10:15 VACCINES (1 of 3 - Risk 3-dose series) [code = HEPATITIS B VACCINES (1 of 3 - Risk 3-dose series)] Future Scheduled 2023-06-12 COVID-19 VACCINE ([facility] 13:10:15 - Moderna series) [code = COVID-19 VACCINE (3 - Moderna series)] Future Scheduled 2023-06-12 INFLUENZA VACCINE [facility] Test 13:10:15 [code = INFLUENZA VACCINE] Future Scheduled 2023-05-15 Screening for [facility] Test 11:51:09 malignant neoplasm of colon (procedure) [code = 663074651] Future Scheduled 2023-05-15 Screening for [facility] Test 11:51:09 malignant neoplasm of colon (procedure) [code = 937003213] Future Scheduled 2023-05-15 Screening for [facility] Test 11:51:09 malignant neoplasm of colon (procedure) [code = 454230652] Future Scheduled 2023-05-15 DIABETES: RETINAL [facility] Test 11:51:09 EYE EXAM [code = DIABETES: RETINAL EYE EXAM] Future Scheduled 2023-05-15 DIABETIC FOOT EXAM [facility] Test 11:51:09 [code = DIABETIC FOOT EXAM] Future Scheduled 2023-05-15 BREAST CANCER [facility] Test 11:51:09 SCREENING [code = BREAST CANCER SCREENING] Future Scheduled 2023-05-15 Screening for [facility] Test 11:51:09 malignant neoplasm of colon (procedure) [code = 855890279] Future Scheduled 2023-05-15 Screening for [facility] Test 11:51:09 malignant neoplasm of colon (procedure) [code = 119945787] Future Scheduled 2023-05-15 SHINGLES VACCINES [facility] Test 11:51:09 (1 of 2) [code = SHINGLES VACCINES (1 of 2)] Future Scheduled 2023-05-15 [facility]IS B [facility] 11:51:09 VACCINES (1 of 3 - Risk 3-dose series) [code = HEPATITIS B VACCINES (1 of 3 - Risk 3-dose series)] Future Scheduled 2023-05-15 COVID-19 VACCINE (3 [facility] 11:51:09 - Moderna series) [code = COVID-19 VACCINE (3 - Moderna series)] Future Scheduled 2023-05-15 INFLUENZA VACCINE [facility] Test 11:51:09 [code = INFLUENZA VACCINE] Encounters Start End Encounter Admission Attending Care Care Encounter Source Date/Time Date/Time Type Type Clinicians Facility Department ID 2023-05-26 Outpatient Baltazar [facility] Common 14:43:00 Jacek [id number] [facility] 2023-05-12 Outpatient Ledesma, STLMLC [facility] Common 07:33:00 Jacek [id number] [facility] 2022-09-19 Outpatient Ledesma, STLMLC [facility] Common 10:51:03 Jacek [facility] 2022-06-23 Outpatient Ledesma, STLMLC ST[facility] Common 10:57:01 Jacek [facility] 2022-06-05 Outpatient Ledesma, STLMLC STLMLC Common 11:06:02 Jacek [facility] 2022-05-21 Outpatient Ledesma, STLMLC ST[facility] Common 13:20:02 Jacek [facility] 2021-12-11 Outpatient Ledesma, STLMLC ST[facility]C Common 13:53:57 Jacek [id number] [facility] 2021-12-11 Outpatient Ledesma, STLMLC STLMLC Common 13:09:15 Jacek [id number] [facility] 2021-12-11 Outpatient Ledesma, STLMLC STLMLC Common 13:08:13 Jacek [id number] [facility] 2021-12-11 Outpatient Ledesma, STLMLC STLMLC Common 12:48:42 Jacek [id number] [facility] 2021-12-11 Outpatient Ledesma, STLMLC STL[facility]C Common 12:47:29 Jacek [id number] [facility] 2021-12-11 Outpatient Ledesma, STLMLC STL[facility]C Common 12:38:39 Jacek [id number] [facility] 2021-12-11 Outpatient Ledesma, STLMLC STLMLC Common 12:38:12 Jacek [id number] [facility] 2021-02-15 Inpatient [facility]U [facility] [id number] [facility] 12:37:[address] [facility] 2023-06-14 2023-06-14 Refill Betina 1.2.840.1 [id number] Methodi 00:00:00 00:00:[address] [place] [facility] 3.430.2.7 Hospi ta .3.532713 l .8 2023-05-28 2023-05-28 [facility], 1.2.840.1 [id number] Methodi 11:00:56 23:59:00 Encounter Nabeel [id number] 3.430.2.7 Hospit a .3.046462 l .8 2023-05-28 2023-05-28 Office [facility], 1.2.840.1 [id number] Methodi 15:00:00 15:15:00 Visit Sharron Correa [id number] 3.430.2.7 Hospit a .3.341350 l .8 2023-05-28 2023-05-28 [facility], 1.2.840.1 [id number] Methodi 09:51:07 10:59:00 Encounter Nabeel [id number] 3.430.2.7 Hospit a .3.507034 l .8 2023-05-28 2023-05-28 [id number] [facility] 00:[facility] 00:00:00 NABEEL [address] 2023-05-28 2023-05-28 [id number] [facility] 00:00:00 00:00:00 NABEEL 335 Method i 2023-05-28 2023-05-28 [id number] [facility] 00:00:00 00:00:00 NABEEL [address] 2023-05-28 2023-05-28 Outpatient [facility], [facility] [id number] [facility] 00:00:00 00:00:00 CH[address] Saulo [address] 2023-05-28 2023-05-28 Outpatient EGWIM, [facility] [id number] [facility] 00:00:00 00:00:00 ANTOINETTEKWUMA [address] 2023-05-15 2023-05-18 Inpatient ER CIHKA, [facility] [id number] SLE 20:05:00 11:38:00 YOANDY 2023-04-08 2023-04-08 Orders Jerry, 1.2.840.1 [id number] Methodi 00:00:00 00:00:00 Only Rufino 07737.1.[address] 3.430.2.7 Hospit a .3.010789 l .8 2023-04-08 2023-04-08 Outpatient SHERICE, [facility] [id number] [facility] 00:00:00 00:00:[address] 2023-04-08 2023-04-08 Orders Jerry, 1.2.840.1 [id number] Methodi 00:00:00 00:00:00 Only Rufino [id number] 3.430.2.7 Hospit a .3.038632 l .8 2023-03-06 2023-03-06 Telephone Manny, 1.2.840.8 [id number] Methodi 00:00:00 00:00:[id number] 3.430.2.7 Hospit a .3.541121 l .8 2023-03-06 2023-03-06 Telephone Manny, 1.2.840.4 [id number] Methodi 00:00:00 00:00:[address] 3.430.2.7 Hospit a .3.471968 l .8 2022-12-11 2022-12-11 [facility], 1.2.840.1 [id number] 2 [id number] Methodi 10:27:30 23:59:00 Encounter Nabeel [id number] 3.430.2.7 Hospit a .3.426508 l .8 2022-12-11 2022-12-11 [facility], 1.2.840.1 [id number] Methodi 10:27:30 23:59:00 Encounter Nabeel [id number] 3.430.2.7 Hospit a .3.240824 l .8 2022-12-11 2022-12-11 Office [facility], 1.2.840.1 [id number] Methodi 15:00:00 15:15:00 Visit Sharron Correa 76780.1.[address] 3.430.2.7 Hospit a .3.500063 l .8 2022-12-11 2022-12-11 [facility] 1.2.840.1 [id number] Methodi 15:00:00 15:15:00 Visit Sharron Correa 65534.1.[address] 3.430.2.7 Hospit a .3.506294 l .8 2022-12-11 2022-12-11 [facility], 1.2.840.1 [id number] Methodi 08:44:26 10:26:00 Encounter Nabeel [id number] 3.430.2.7 Hospit a .3.608103 l .8 2022-12-11 2022-12-11 [facility], 1.2.840.1 [id number] Methodi 08:44:26 10:26:00 Encounter Nabeel 60505.1.[address] 3.430.2.7 Hospit a .3.482935 l .8 2022-12-11 2022-12-11 Travel 1.2.840.1 1.2.684.094 1769 084062 Methodi 00:00:00 00:00:[address] 3.430.2.7 0.2.7.3.698 Ho spita .3.037299 084.8 l .8 2022-12-11 2022-12-11 Outpatient [facility] [id number] [facility] 00:00:00 00:00:00 NABEEL [address] 2022-12-11 2022-12-11 Travel 1.2.840.1 1.2.993.220 4453 352347 Methodi 00:00:00 00:00:[address] 3.430.2.7 0.2.7.3.698 Ho spita .3.877416 084.8 l .8 2022-11-26 2022-11-26 (TEL) STLMLC STLMLC [id number] Co mmon 00:00:00 00:00:00 [facility] 2022-11-24 2022-11-24 Telephone Watt, 1.2.840.1 [id number] Methodi 00:00:00 00:00:[address] 3.430.2.7 Hospit a .3.967114 l .8 2022-11-24 2022-11-24 Telephone Watt, 1.2.840.1 537337535 52007154 Methodi 00:00:00 00:00:[address] 3.430.2.7 Hospit a .3.479305 l .8 2022-11-24 2022-11-24 Telephone Watt, 1.2.840.1 [id number] [id number] Methodi 00:00:00 00:00:[address] 3.430.2.7 Hospit a .3.767586 l .8 2022-11-24 2022-11-24 Telephone Watt, 1.2.840.1 [id number] [id number] Methodi 00:00:00 00:00:[address] 3.430.2.7 Hospit a .3.330632 l .8 2022-10-02 2022-10-02 Telephone [facility], 1.2.840.1 [id number] 2099 214101 Methodi 00:00:00 00:00:[address] 3.430.2.7 Hospit a .3.577461 l .8 2022-10-02 2022-10-02 Telephone Biere, 1.2.840.1 053843773 2100 301537 Methodi 00:00:00 00:00:[address] 3.430.2.7 Hospit a .3.198246 l .8 2022-10-01 2022-10-01 (TEL) STLMLC STLMLC [id number] Co mmon 00:00:00 00:00:00 [facility] 2022-09-26 2022-09-26 Orders [place], 1.2.840.1 [id number] 17617 28832 Methodi 00:00:00 00:00:00 Only Rufino 72135.1.[address] 3.430.2.7 Hospit a .3.535535 l .8 2022-09-26 2022-09-26 Orders [place], 1.2.840.1 [id number] 43359 27278 Methodi 00:00:00 00:00:00 Only Rufino 80691.1.[address] 3.430.2.7 Hospit a .3.351063 l .8 2022-09-26 2022-09-26 (TEL) STLMLC STLMLC [id number] Co mmon 00:00:00 00:00:00 [facility] 2022-09-23 2022-09-23 OFFICE STLMLC STLMLC [id number] Co mmon 00:00:00 00:00:00 VISIT [facility] LEVEL 4 [facility] 2022-09-18 2022-09-18 (TEL) STLMLC STLMLC [id number] Co mmon 00:00:00 00:00:00 [facility] 2022-08-16 2022-08-16 Orders [place], 1.2.840.1 [id number] 74668 29969 Methodi 00:00:00 00:00:00 Only Rufino 36444.1.[address] 3.430.2.7 Hospit a .3.214459 l .8 2022-08-16 2022-08-16 Orders [place], 1.2.840.1 454551963 39996 37105 Methodi 00:00:00 00:00:00 Only Rufino 82192.1.[address] 3.430.2.7 Hospit a .3.125247 l .8 2022-08-13 2022-08-13 Orders [place], 1.2.840.1 467548996 37127 61772 Methodi 00:00:00 00:00:00 Only Rufino 07132.1.[address] 3.430.2.7 Hospit a .3.225001 l .8 2022-08-13 2022-08-13 Orders [place], 1.2.840.1 246529913 07309 03203 Methodi 00:00:00 00:00:00 Only Rufino 95821.1.[address] 3.430.2.7 Hospit a .3.523515 l .8 2022-06-24 2022-06-24 OFFICE STLMLC STLMLC [id number] Co mmon 00:00:00 00:00:00 VISIT [facility] ESTAB PT - CHI LEVEL 4 [facility] 2022-06-24 2022-06-24 (TEL) STLMLC STLMLC [id number] Co mmon 00:00:00 00:00:00 [facility] 2022-06-05 2022-06-05 [facility] [address] [place] 02:44:00 02:44:00 RAJANI 0721 da [facility] 2022-05-21 2022-05-21 (TEL) STLMLC STLMLC [id number] Co mmon 00:00:00 00:00:00 [facility] 2022-05-21 2022-05-21 OFFICE STLMLC STLMLC [id number] Co mmon 00:00:00 00:00:00 VISIT EST Spir it PT LEVEL 3 - [facility] 2022-05-15 2022-05-15 [facility], 1.2.840.1 [id number] 2 [id number] Methodi 14:00:00 23:59:00 Encounter Nabeel 38351.1.[address] 3.430.2.7 Hospit a .3.224534 l .8 2022-05-15 2022-05-15 [facility], 1.2.840.1 [id number] 2 [id number] Methodi 09:16:20 13:59:00 Encounter Nabeel 77495.1.[address] 3.430.2.7 Hospit a .3.814987 l .8 2022-05-15 2022-05-15 Office [facility], 1.2.840.1 [id number] 808744 9736 Methodi 13:15:00 13:30:00 Visit Sharron Correa 80255.1.[address] 3.430.2.7 Hospit a .3.639593 l .8 2022-05-15 2022-05-15 Outpatient [facility] 989 [id number] [facility] 00:00:00 00:00:00 NABEEL [address] 2022-05-15 2022-05-15 Travel 1.2.840.1 1.2.586.585 8986 053090 Methodi 00:00:00 00:00:[address] 3.430.2.7 0.2.7.3.698 spita .3.855872 084.8 l .8 2022-03-25 2022-03-25 OFFICE STLC STLC [id number] Co mmon 00:00:00 00:00:00 VISIT Spirit ESTAB PT - CHI LEVEL 4 [facility] 2022-03-25 2022-03-25 [facility] [id number] Common 00:00:00 00:00:00 MCR Spirit WELLNESS - CHI VISIT [facility] 2022-02-06 2022-02-06 (TEL) STLC STLMLC [id number] Co mmon 00:00:00 00:00:00 Spirit - CHI [facility] 2022-01-27 2022-01-27 Outpatient [facility] [id number] [facility] 00:00:00 00:00:00 SAMIRA [address] 2022-01-02 2022-01-02 Outpatient EGWIM, [facility] [id number] [facility] 00:00:00 00:00:00 CHUKWUMA [address] 2022-01-02 2022-01-02 Outpatient EGWIM, [facility] [id number] [facility] 00:00:00 00:00:[address] 2022-01-02 2022-01-02 Outpatient ANKOMA-SEY, [facility] [id number] [facility] 00:00:00 00:00:00 NABEEL 509 Method i 2021-11-05 2021-11-05 OFFICE STLMLC STLMLC [id number] Co mmon 00:00:00 00:00:00 VISIT [facility] LEVEL 4 [facility] 2021-11-04 2021-11-04 (TEL) STLMLC STLMLC [id number] Co mmon 00:00:00 00:00:00 [facility] 2021-10-04 2021-10-04 Outpatient JEN, [facility] [id number] [facility] 00:00:00 00:00:00 AKASH [address] 2021-09-30 2021-09-30 Outpatient FARIBA, [facility] [id number] [facility] 00:00:00 00:00:00 IMAD 004 Method i 2021-09-30 2021-09-30 Outpatient FARIBA, [facility] [id number] [facility] 00:00:00 00:00:00 IMAD 097 Method i 2021-09-23 2021-09-23 (TEL) STLMLC STLMLC [id number] Co mmon 00:00:00 00:00:00 [facility] 2021-09-17 2021-09-17 (TEL) STLMLC STLMLC [id number] Co mmon 00:00:00 00:00:00 [facility] 2021-09-16 2021-09-16 (TEL) STLMLC STLMLC [id number] Co mmon 00:00:00 00:00:00 [facility] 2021-09-10 2021-09-10 Outpatient SHERICE, [facility] [id number] [facility] 00:00:00 00:00:00 RAFIK 817 Method i 2021-09-10 2021-09-10 Outpatient SHERICE, [facility] [id number] [facility] 00:00:00 00:00:00 RAFIK 396 Method i 2021-09-10 2021-09-10 Outpatient SHERICE, [facility] [id number] [facility] 00:00:00 00:00:00 RAFIK 803 Method i 2021-09-10 2021-09-10 Outpatient SHERICE, [facility] [id number] [facility] 00:00:00 00:00:00 RAFIK 397 Method i 2021-09-10 2021-09-10 Outpatient SHERICE, [facility] [id number] [facility] 00:00:00 00:00:00 RAFIK 620 Method i 2021-09-10 2021-09-10 Outpatient SHERICE, [facility] [id number] [facility] 00:00:00 00:00:00 RAFIK 538 Method i 2021-09-09 2021-09-09 Outpatient SHERICE, [facility] [id number] [facility] 00:00:00 00:00:00 RAFIK 445 Method i 2021-09-09 2021-09-09 Outpatient SHERICE, [facility] [id number] [facility] 00:00:00 00:00:00 RAFIK 444 Method i 2021-09-09 2021-09-09 Outpatient SHERICE, [facility] [id number] [facility] 00:00:00 00:00:00 RAFIK 443 Method i 2021-09-09 2021-09-09 Outpatient SHERICE, [facility] [id number] [facility] 00:00:00 00:00:00 RAFIK 618 Method i 2021-09-09 2021-09-09 Outpatient SHERICE, [facility] [id number] [facility] 00:00:00 00:00:00 RAFIK 916 Method i 2021-09-09 2021-09-09 Outpatient SHERICE, [facility] [id number] [facility] 00:00:00 00:00:00 RAFIK 616 Method i 2021-09-09 2021-09-09 Outpatient SHERICE, [facility] [id number] [facility] 00:00:00 00:00:00 RAFIK 619 Method i 2021-09-09 2021-09-09 Outpatient SHERICE, [facility] [id number] [facility] 00:00:00 00:00:00 RAFIK 622 Method i 2021-09-09 2021-09-09 Outpatient SHERICE, [facility] [id number] [facility] 00:00:00 00:00:00 RAFIK 446 Method i 2021-09-02 2021-09-02 (TEL) STLMLC STLMLC [id number] Co mmon 00:00:00 00:00:00 Spirit - CHI [facility] 2021-08-13 2021-08-13 OFFICE STLMLC STLMLC [id number] Co mmon 00:00:00 00:00:00 VISIT Spirit ESTAB PT - CHI LEVEL 4 [facility] 2021-05-30 2021-05-30 Outpatient [facility] [id number] [facility] 10:00:00 10:00:00 CATRACHO [facility] 2021-05-27 2021-05-27 [facility] 1.2.840.114 [id number] [facility] 08:14:50 23:59:00 Encounter Catracho henry 350.1.13.10 ity of [place] 4.2.7.2.686 [facility] [phone] [facility] 806 Ethel 2021-05-27 2021-05-27 L[employer] Fr[employer] Prescription Clerk Kory Martinez Lab Main [facility] 1.2.8 40.114 [id number] [facility] 09:25:57 09:40:57 Visit Dez Abrams 350.1.13.10 ity of [place] 4.2.7.2.686 [facility] [phone] Ak dical nal [address] Building 2021-05-27 2021-05-27 Outpatient [facility] [id number] Univers 09:00:00 09:00:00 CATRACHO [facility] 2021-05-27 2021-05-27 Nurse 1, Adc Infusion Chair [facility] 1.2. 840.114 [id number] [facility] 07:47:38 08:47:38 Visit Catracho Thornton 350.1.1 3.10 [place] [id number] [facility] 053 Ethel 2021-05-14 2021-05-14 Outpatient STLMLC STLMLC [id number] Common 00:00:00 00:00:00 [facility] 2021-05-14 2021-05-14 Outpatient STLMLC STLMLC [id number] Common 00:00:00 00:00:00 [facility] 2021-05-02 2021-05-02 [facility] 1.2.840.114 [id number] Univers 08:50:45 23:59:00 Encounter Catracho henry 350.1.13.10 it[place] of [place].2.7.2.686 [place] [phone] [facility] 806 Ethel 2021-05-02 2021-05-02 Nurse 1, Adc Infusion Chair [facility] 1.2. 840.114 [id number] Univers 10:03:38 10:33:38 Visit Catracho Thornton 350.1.1 3.10 [place] of [place] 4.2.7.2.[place] [phone] [facility] 053 Branch 2021-05-02 2021-05-02 [employer] And [employer] Prescription Clerk Juan, Adc Lab Main [facility] 1.2.8 40.114 [id number] [facility] 10:18:06 10:33:06 Visit Catracho Thornton 350.1.1 3.10 [place] of [place] 4.2.7.2.[place] [phone] Ak dical nal 353 [facility] 2021-05-02 2021-05-02 Outpatient [facility] [id number] Univers 10:00:00 10:00:00 Carl CATRACHO [facility] 2021-04-11 2021-04-11 Outpatient STLMLC STLMLC [id number] Common 00:00:00 00:00:00 [facility] 2021-04-11 2021-04-11 Outpatient STLMLC STLMLC [id number] Common 00:00:00 00:00:00 [facility] 2021-03-28 2021-03-28 Outpatient R [facility] [id number] Univers 08:45:11 23:59:00 Carl [facility]ACH[facility] 2021-03-28 2021-03-28 [facility] 1.2.840.114 [id number] Univers 08:45:11 23:59:00 Encounter Catracho henry 350.1.13.10 ity of [place] 4.2.7.2.686 [place] [phone] [facility] 806 Ethel 2021-03-28 2021-03-28 L[employer] And [employer] Prescription Clerk Juan, Adc Lab Main [facility] 1.2.8 40.114 [id number] Univers 10:30:35 10:45:35 Visit Catracho Thornton 350.1.1 3.10 it[place] of [place] 4.2.7.2.[place] [phone] Ak dical nal 353 [facility] 2021-03-28 2021-03-28 Nurse 1, Adc Infusion Nurse [facility] 1.2. 840.114 [id number] Univers 08:45:52 09:15:52 Visit Catracho Thornton 350.1.1 3.10 ity of [place] 4.2.7.2.686 [place] [phone] [facility] 053 Branch 2021-03-28 2021-03-28 Orders Doctor QUIÑONEZ 1.2.840.114 [id number] Univers 00:00:00 00:00:00 Only Unassigned, RAFFY 350.1.13.10 ity of [place] [facility] 4.2.7.2.686 Dimitrios as [phone] [place] [address] Branch 2021-03-21 2021-03-21 Orders Doctor OLAMIDE 1.2.840.114 [id number] Univers 00:00:00 00:00:00 Only Unassigned, RAFFY 350.1.13.10 ity of [place] [facility] 4.2.7.2.686 Dimitrios as [phone] [place] [address] Branch 2021-03-07 2021-03-07 Outpatient STLMLC STLMLC [id number] Common 00:00:00 00:00:00 [facility] 2021-03-04 2021-03-04 Outpatient STLMLC STLMLC [id number] Common 00:00:00 00:00:00 [facility] 2021-03-04 2021-03-04 Outpatient STLMLC STLMLC [id number] Common 00:00:00 00:00:00 [facility] 2021-02-20 2021-02-20 Outpatient STLMLC STLMLC [id number] Common 00:00:00 00:00:00 [facility] 2021-02-14 2021-02-14 Outpatient STLMLC STLMLC [id number] Common 00:00:00 00:00:00 [facility] 2021-01-29 2021-01-29 [facility] 1.2.840.114 [id number] [facility] 10:00:00 23:59:00 Encounter Catracho henry 350.1.13.10 ity of [place] 4.2.7.2.686 [facility] [phone] [facility] 806 Branch 2021-01-29 2021-01-29 [facility] 1.2.840.114 8 [id number] 10:00:00 23:59:00 Encounter Catracho henry 350.1.13.10 [place] 4.2.7.2.686 Guy [phone] [phone] 2021-01-29 Nurse 1, [facility] Infusion Chair [place] 1.2. 840.114 [id number] [facility] 11:42:41 12:42:41 Visit Catracho Thornton 350.1.1 3.10 it[place].2.[place] [phone] [address] 2021-01-29 2021-01-29 Nurse 1, [facility] 1.2.840.114 [id number] 11:42:41 12:42:41 Visit Infusion Lillian 350.1.13.10 Chair [place] 4.2.7.2.686 Surgical [phone] [place] [address] 2021-01-29 2021-01-29 L[employer] And [employer] Prescription Clerk Juan, [facility] Lab Main [facility] 1.2.8 40.114 [id number] [facility] 11:59:37 12:14:37 Visit Catracho Thornton 350.1.1 3.10 ity of [place] 4.2.7.2.686 [place] [phone] Ak dical [address] 2021-01-29 2021-01-29 L[employer] And [employer] Prescription Clerk Juan, [facility] 1.2.840.114 [id number] 11:59:37 12:14:37 Visit Lab Main Lillian 350.1.13.10 [place] 4.2.7.2.686 Professio [phone] [address] 2021-01-29 2021-01-[address] [facility] [id number] Univers 11:00:00 11:00:00 [facility] 2021-01-29 2021-01-29 Orders Doctor QUIÑONEZ 1.2.840.114 [id number] [facility] 00:00:00 00:00:00 Only Unassigned, RAFFY 350.1.13.10 ity of [facility] 4.2.7.2.686 Dimitrios as [phone] [address] 2021-01-29 2021-01-29 Orders Doctor QUIÑONEZ 1.2.840.114 [id number] 00:00:00 00:00:00 Only Unassigned, RAFFY 350.1.13.10 [place] [facility] 4.2.7.2.686 [id number] 009 2021-01-22 2021-01-22 Outpatient [facility] [id number] Common 00:00:00 00:00:00 [facility] 2021-01-07 2021-01-07 Outpatient [facility] [id number] Univers 00:00:00 00:00:00 CATRACHO [facility] 2021-01-03 2021-01-03 Outpatient R [facility] [id number] Univers 11:47:32 23:59:00 CATRACHO [facility] 2021-01-03 2021-01-03 [facility] 1.2.840.114 [id number] [facility] 11:30:00 23:59:00 Encounter Cartacho henry 350.1.13.10 ity of [place] 4.2.7.2.686 [place] [phone] [address] 2021-01-03 2021-01-03 [facility] 1.2.840.114 [id number] 11:30:00 23:59:00 Encounter Catracho henry 350.1.13.10 [place] 4.2.7.2.686 Guy [id number] [facility] 2021-01-03 2021-01-03 Nurse 1, [facility] Infusion Chair [facility] 1.2. 840.114 [id number] [facility] 13:06:59 14:06:59 Visit Catracho Thornton 350.1.1 3.10 it[place] of [place] 4.2.7.2.686 [place] [phone] [place] 833433 Ethel 2021-01-03 2021-01-03 Nurse 1, [facility] 1.2.840.114 [id number] 13:06:59 14:06:59 Visit Infusion Lillian 350.1.13.10 Chair [place] 4.2.7.2.686 Surgical [phone] [place] [address] 2021-01-032021-01-03 L[employer] And Fr[employer] Prescription Clerk Juan, Adc Lab Main [facility] 1.2.8 40.114 [id number] [facility] 13:43:10 13:58:10 Visit Catracho Thornton 350.1.1 3.10 ity of [place] 4.2.7.2.686 [place] [phone] Ak dical [address] 2021-01-03 2021-01-03 L[employer] And [employer] Prescription Clerk Juan [facility] 1.2.840.114 [id number] 13:43:10 13:58:10 Visit Lab Main Evy 350.1.13.10 [place] 4.2.7.2.686 Professio [phone] [address] 2021-01-03 2021-01-03 Orders Doctor QUIÑONEZ 1.2.840.114 [id number] Univers 00:00:00 00:00:00 Only Unassigned, RAFFY 350.1.13.10 ity of [place] [facility] 4.2.7.2.686 Dimitrios as [phone] [address] 2021-01-03 2021-01-03 Orders Doctor QUIÑONEZ 1.2.840.114 [id number] 00:00:00 00:00:00 Only Unassigned, RAFFY 350.1.13.10 [place] [facility] 4.2.7.2.686 [id number] 009 2021-01-01 2021-01-[address] [facility] [id number] Univers 12:00:00 12:00:00 [facility] 2020-12-25 2020-12-25 Orders Doctor OLAMIDE Kovacs.2.840.114 [id number] Univers 00:00:00 00:00:00 Only Unassigned, RAFFY 350.1.13.10 ity of [place] [facility] 4.2.7.2.686 Dimitrios as [phone] [address] 2020-12-25 2020-12-25 Orders Doctor OLAMIDE Neely2.840.114 [id number] 00:00:00 00:00:00 Only Unassigned, RAFFY 350.1.13.10 [place] [facility] 4.2.7.2.686 [id number] 009 2020-12-17 2020-12-17 Outpatient [facility] [id number] Univers 00:00:00 00:00:00 BRI Henry[facility]ISAM [facility] 2020-11-19 2020-11-19 Outpatient R [facility] [id number] Univers 12:51:09 23:59:00 EBRIWISAM [facility] 2020-11-19 2020-11-19 [facility] 1.2.840.114 [id number] Univers 12:51:09 23:59:00 Encounter e, Nizar C SPECIALTY 350.1.13.10 ity of [place]2.[place] [phone] [address] 2020-11-19 2020-11-19 [facility] 1.2.840.114 [id number] 12:51:09 23:59:00 Encounter e, Nizar C SPECIALTY 350.1.13.10 CARE 4.2.7.2.686 CENTER AT [id number] [address] 2020-10-22 2020-10-22 [facility] 1.2.840.114 7 [id number] [facility] 12:49:53 23:59:00 Encounter e, Nizar C SPECIALTY 350.1.13.10 ity of [place]2.7.2.[place] [phone] [address] 2020-10-22 2020-10-22 [facility] 1.2.840.114 7 [id number] 12:49:53 23:59:00 Encounter e, Nizar C SPECIALTY 350.1.13.10 CARE 4.2.7.2.686 CENTER AT [phone] [address] 2020-10-22 2020-10-22 Outpatient R [facility] [id number] Univers 00:00:00 00:00:00 Carl [facility]ACH[facility] 2020-10-02 2020-10-02 [facility] [id number] Univers 10:00:00 10:00:00 CATRACHO [facility] 2020-10-02 2020-10-02 L[employer] And Fr[employer] Prescription Clerk 2, Adc Lab [facility] 1.2.840.114 [id number] Univers 09:07:59 09:22:59 Visit Catracho Thornton Lillian 350.1.1 3.10 ity of [place] 4.2.7.2.686 [place] [phone] Ak dical [address] 2020-10-02 2020-10-02 [employer] Prescription Clerk 2, Adc Lab [facility] 1.2.840.114 [id number] 09:07:59 09:22:59 Visit Lillian 350.1.13.10 [place] 4.2.7.2.686 Professio [phone] [address] 2020-10-02 2020-10-02 Orders Doctor QUIÑONEZ 1.2.840.114 [id number] Univers 00:00:00 00:00:00 Only Unassigned, RAFFY 350.1.13.10 ity of [place] [facility] 4.2.7.2.686 Dimitrios as [phone] [address] 2020-10-02 2020-10-02 Orders Doctor QUIÑONEZ 1.2.840.114 [id number] 00:00:00 00:00:00 Only Unassigned, RAFFY 350.1.13.10 [place] [facility] 4.2.7.2.686 [id number] 009 2020-03-21 2020-03-21 Orders Doctor QUIÑONEZ 1.2.840.114 [id number] Univers 00:00:00 00:00:00 Only Unassigned, RAFFY 350.1.13.10 ity of [place] [facility] 4.2.7.2.686 Dimitrios as [phone] [address] 2020-02-25 2020-02-25 Emergency [facility] [id number] Univers 06:23:55 10:13:00 MAVIS [facility] 2020-02-25 2020-02-25 Emergency [facility] 1.2.447.171 [id number] Univers 06:23:55 10:13:00 Mavis Pruitt Evy 350.1.13.10 ity of [place].2.7.2[place] [phone] [facility] [address] 2020-02-25 2020-02-25 Nurse OLAMIDE Pinedo [id number] Univers 00:00:00 00:00:00 Triage Katlin AKBAR 350.1.13.10 it y of HOSPITAL 4.2.7.2.686 Dimitrios as [phone] [facility] [address] 2020-02-23 2020-02-23 Transition Kenia Beltran [id number] Univers 00:00:00 00:00:00 of Care Jade Salinas 350.1.13.10 [place] [phone] [facility] [address] 2020-02-20 2020-02-22 Hospital Hina Hudson Chiki [facility] [id number] Univers 16:43:26 11:11:00 Encounter Fausto Zuñiga 350.1.13.10 ity [place] [phone] [facility] [address] 2020-02-20 2020-02-22 Inpatient X [facility]USTO [facility] [id number] Univers 16:43:26 11:11:00 ity [facility] Results Test Description Test Time Test Comments Results Result Comments Source Basic metabolic panel 2023-06-14 12:27:00 Test Item Value Reference Range Interpretation Comme nts Glucose (test code = 176 mg/dL 65-139 H Non-fa sting reference 2345-7) interval BUN (test code = 3094-0) 70 mg/dL 7-25 H Creatinine (test code = 2.37 mg/dL 0.60-1.00 H 2160-0) eGFR (test code = 79473-1) 21 See_Comment L T he eGFR is based on the CKD-EPI 202 1 equation. To ca lculate the new eGFR fr om a previous Creati nine or Cystatin Cresul t, go to [email or web address] [Automated mess age] The system ic h generated this result transmitted ref erence range: > OR = 6 0 mL/min/1.73m2. The reference range was not used to int erpret this result as normal/abnormal . BUN/creatinine ratio (test 30 See_Comment H [Automated message] code = 3097-3) The system ich generated this result transmitted ref erence range: 6 - 22 ( calc). The reference r glenn was not used to interpret this result as normal/abnor mal. Sodium (test code = 140 mmol/L 746-136 2378-2) Potassium (test code = 4.6 mmol/L 3.5-5.3 2823-3) Chloride (test code = 110 mmol/L 98-110 2074-0) CO2 (test code = 2028-07) 25 mmol/L 20-32 Calcium (test code = 8.8 mg/dL 8.6-10.4 25171-8) MARY (test code = MARY) FASTING:NO FASTING: NO RAC (test code = RAC) Performing Organization Information: Site ID: [id number] [facility] Address: [address] [place] [id number] Director: Kd Koenig Lab Interpretation (test Abnormal code = 22518-9) [facility] [id number] 12:27:00 Test Item Value Reference Range Interpretation Comments Protein (test code = 5.5 g/dL 6.1-8.1 L 5-2) Albumin (test code = 3.8 g/dL 3.6-5.1 1750-7) Globulin, total 1.7 See_Comment L [Automated (test code = message] The ) system which generated this result transmitted reference range : 1.9 - 3.7 g/dL (calc). The reference range was not used to interpret this result as normal/abnormal . Albumin/globulin 2.2 See_Comment [Automated ratio (test code = message] The ) system which generated this result transmitted reference range : 1.0 - 2.5 (calc ). The reference range was not used to interpr et this result as normal/abnormal . Total bilirubin 0.7 mg/dL 0.2-1.2 (test code = 1974-12) Bilirubin direct 0.2 mg/dL See_Comment [Automated (test code = 1968-05) message ] The system which generated this result transmitted reference range : < OR = 0.2. The reference range was not used to interpret this result as normal/abnormal . Bilirubin, indirect 0.5 See_Comment [Automa carlitos (test code = 1970-11) message ] The system which generated this result transmitted reference range : 0.2 - 1.2 mg/dL (calc). The reference range was not used to interpret this result as normal/abnormal . Alkaline phosphatase 66 U/L 37-153 (test code = 6768-6) AST (test code = 25 U/L 10-35 1920-8) ALT (test code = 12 U/L 05-14 1742-6) MARY (test code = FASTING:NO MARY) FASTING: NO RAC (test code = Performing RAC) Organization Information: Site ID: RGA Name: [employer] Address: [address] [place] [id number] Director: Kd Koenig Lab Interpretation Abnormal (test code = 83728-2) [facility] with platelet and [id number] 12:27:00 Test Item Value Reference Range Interpretation Comments WBC (test code = 3.6 See_Comment L [Automated 9234-2) message] The system which generated this result transmitted reference range : 3.8 - 10.8 Thousand/uL. Th e reference range was not used to interpret this result as normal/abnormal . RBC (test code = 2.07 See_Comment L [Automated 542-8) message] The system which generated this result transmitted reference range : 3.80 - 5.10 Million/uL. The reference range was not used to interpret this result as normal/abnormal . HGB (test code = 5.9 g/dL 11.7-15.5 L Verified by 628-7) repeat analysis . HCT (test code = 18.4 % 35.0-45.0 L Verified by 0594-3) repeat analysis . MCV (test code = 88.9 fL 80.0-100.0 787-2) MCH (test code = 28.5 pg 27.0-33.0 785-6) MCHC (test code = 32.1 g/dL 32.0-36.0 786-4) RDW (test code = 15.0 % 11.0-15.0 788-0) Platelet count (test 62 See_Comment L [Autom ated code = 777-3) message] The system which generated this result transmitted reference range : 140 - 400 Thousand/uL. Th e reference range was not used to interpret this result as normal/abnormal . MPV (test code = 10.9 fL 7.5-12.5 776-5) Neutrophils, 2531 See_Comment [Automated absolute (test code message] The = 751-8) system which generated this result transmitted reference range : 1,500 - 7,800 cells/uL. The reference range was not used to interpret this result as normal/abnormal . Lymphocytes, 454 See_Comment L [Automated absolute (test code message] The = 731-0) system which generated this result transmitted reference range : 850 - 3,900 cells/uL. The reference range was not used to interpret this result as normal/abnormal . Monocytes, absolute 443 See_Comment [Automa carlitos (test code = 742-7) message] The system which generated this result transmitted reference range : 200 - 950 cells/uL. The reference range was not used to interpret this result as normal/abnormal . Eosinophils, 151 See_Comment [Automated absolute (test code message] The = 711-2) system which generated this result transmitted reference range : 15 - 500 cells/uL. The reference range was not used to interpret this result as normal/abnormal . Basophils, absolute 22 See_Comment [Automa carlitos (test code = 704-7) message] The system which generated this result transmitted reference range : 0 - 200 cells/u L. The reference range was not used to interpr et this result as normal/abnormal . Neutrophils (test 70.3 % code = 770-8) Lymphocytes (test 12.6 % code = 736-9) Monocytes (test code 12.3 % = 5905-5) Eosinophils (test 4.2 % code = 713-8) Basophils + RC (test 0.6 % code = 706-2) Platelet estimate DECREASED ADEQUATE A (test code = 9317-9) MARY (test code = FASTING:NO MARY) FASTING: NO RAC (test code = Performing RAC) Organization Information: Site ID: HENNA Name: [facility] Address: [address] [place] [phone] Director: Whitenyjennifer Koenig Lab Interpretation Abnormal (test code = 92009-7) [facility] [id number] 12:27:00 Test Item Value Reference Range Interpretation Comments INR (test code = 1.2 H Reference R glenn 6301-6) 0.9-1.1Moderate -i ntensity Warfar in Therapy 2.0-3.0Higher-i nt ensity Warfarin Therapy 3.0-4.0 Prothrombin time 12.7 See_Comment H For additio nal (test code = 5902-2) informa tion, please refer tohttp://educat [employer] n[employer]/faq/FAQ10 4( This link is being provided for informational/e du cational purpos es only.) [Automat ed message] The system which generated this result transmitted reference range : 9.0 - 11.5 sec. The reference range was not used to interpr et this result as normal/abnormal . MARY (test code = FASTING:NO MARY) FASTING: NO RAC (test code = Performing RAC) Organization Information: Site ID: HENNA Name: [employer] [facility] Lab Address: [address] [place] [address] Director: Kd Koenig Lab Interpretation Abnormal (test code = 10294-2) [facility] [id number] 12:17:44 Test Item Value Reference Range Interpretation Comments HEMOGLOBIN A1C 5.9 % See_Comment H [Automated m essage] ELECTROPHORESIS (BEAKER) The system which (test code = 3811) generated this result transmitted ref erence range: <=5.6%. The reference range was not used to int erpret this result as normal/abnormal . "The A1c is measured using a NGSP-certified method. HbA1c value equal to or greater than 6.5% as thediagnosis cutoff for diabetes. An HbA1c value of 5.7- 6.4% indicates increased risk for diabetes (prediabetes)."Sales Representative Printing ID - ADM COMPREHENSIVE METABOLIC [id number] 06:35:39 Test Item Value Reference Range Interpretation Comments TOTAL PROTEIN 4.5 gm/dL 6.0-8.3 L (BEAKER) (test code = 770) ALBUMIN (BEAKER) 2.7 g/dL 3.5-5.0 L (test code = 1145) ALKALINE 56 U/L 40-150 PHOSPHATASE (BEAKER) (test code = 346) BILIRUBIN TOTAL 0.9 mg/dL 0.2-1.2 (BEAKER) (test code = 377) SODIUM (BEAKER) 140 meq/L 136-145 (test code = 381) POTASSIUM (BEAKER) 4.6 meq/L 3.5-5.1 (test code = 379) CHLORIDE (BEAKER) 113 meq/L 98-107 H (test code = 382) CO2 (BEAKER) (test 19 meq/L 22-29 L code = 355) BLOOD UREA 59 mg/dL 7-21 H NITROGEN (BEAKER) (test code = 354) CREATININE 2.20 mg/dL 0.57-1.25 H (BEAKER) (test code = 358) GLUCOSE RANDOM 170 mg/dL 70-105 H (BEAKER) (test code = 652) CALCIUM (BEAKER) 8.0 mg/dL 8.4-10.2 L (test code = 697) AST (SGOT) 33 U/L 5-34 (BEAKER) (test code = 353) ALT (SGPT) 15 U/L 6-55 (BEAKER) (test code = 347) EGFR (BEAKER) 23 Interpretatio n of eGFR (test code = 1092) mL/min/1.[address] age Description sq m Result G1 Gi l or high >=90 G2 Mildly decreased 60-89 G3a Mildl y to moderately 45-5 9 G3b Moderately to s everely 30-44 G4 Sever ly decreased 15-29 G5 Kidney failure <15Repo rted eGFR is based on the CKD-EPI 2021 equation t hat does not use a race coefficientEsti mated GFR is not as accur ate as Creatinine Carrol gutierrez in predicting glom erular filtration rate . Estimated GFR is not appl icable for dialysis patien ts Sales Representative Printing ID - MARCOCBC W/PLT COUNT & AUTO [id number] 05:41:19 Test Item Value Reference Range Interpretation Comments WHITE BLOOD CELL COUNT (BEAKER) 3.8 K/ L 3.5-10.5 (test code = 775) RED BLOOD CELL COUNT (BEAKER) 3.24 M/ L 3.93-5.22 L (test code = 761) HEMOGLOBIN (BEAKER) (test code = 9.1 GM/DL 11.2-15.7 L 410) HEMATOCRIT (BEAKER) (test code = 28.4 % 34.1-44.9 L 411) MEAN CORPUSCULAR VOLUME (BEAKER) 88 fL 79-95 (test code = 753) MEAN CORPUSCULAR HEMOGLOBIN 28.1 pg 25.6-32.2 (BEAKER) (test code = 751) MEAN CORPUSCULAR HEMOGLOBIN CONC 32.0 GM/DL 32.2-35.5 L (BEAKER) (test code = 752) RED CELL DISTRIBUTION WIDTH 17.6 % 11.7-14.4 H (BEAKER) (test code = 412) PLATELET COUNT (BEAKER) (test code 56 K/CU MM 150-450 L = 756) MEAN PLATELET VOLUME (BEAKER) 10.1 fL 9.4-12.3 (test code = 754) NUCLEATED RED BLOOD CELLS (BEAKER) 0 /100 WBC 0-0 (test code = 413) NEUTROPHILS RELATIVE PERCENT 62 % (BEAKER) (test code = 429) LYMPHOCYTES RELATIVE PERCENT 15 % (BEAKER) (test code = 430) MONOCYTES RELATIVE PERCENT 15 % (BEAKER) (test code = 431) EOSINOPHILS RELATIVE PERCENT 7 % (BEAKER) (test code = 432) BASOPHILS RELATIVE PERCENT 1 % (BEAKER) (test code = 437) NEUTROPHILS ABSOLUTE COUNT 2.33 K/ L 1.56-6.13 (BEAKER) (test code = 670) LYMPHOCYTES ABSOLUTE COUNT 0.58 K/ L 1.18-3.74 L (BEAKER) (test code = 414) MONOCYTES ABSOLUTE COUNT (BEAKER) 0.57 K/ L 0.24-0.36 H (test code = 415) EOSINOPHILS ABSOLUTE COUNT 0.28 K/ L 0.04-0.36 (BEAKER) (test code = 416) BASOPHILS ABSOLUTE COUNT (BEAKER) 0.02 K/ L 0.01-0.08 (test code = 417) IMMATURE GRANULOCYTES-RELATIVE 0.30 % 0.00-1.00 PERCENT (BEAKER) (test code = 2801) CREATININE, RANDOM [id number] 12:25:17 Test Item Value Reference Range Interpretation Comments CREATININE URINE (BEAKER) (test 98.4 mg/dL code = 375) Reference Range: No NormalsOperator ID - BVSODIUM, RANDOM [id number] 12:23:27 Test Item Value Reference Range Interpretation Comments SODIUM URINE (BEAKER) (test code = < meq/L 243) Reference Range: No NormalsOperator ID - BVCOMPREHENSIVE METABOLIC PANEL 2023-05-17 06:11:02 Test Item Value Reference Range Interpretation Comments TOTAL PROTEIN 5.0 gm/dL 6.0-8.3 L Specimen sligh tly (BEAKER) (test hemolyzed code = 770) ALBUMIN (BEAKER) 3.0 g/dL 3.5-5.0 L Specimen sl ightly (test code = 1145) hemolyzed ALKALINE 59 U/L 40-150 PHOSPHATASE (BEAKER) (test code = 346) BILIRUBIN TOTAL 1.0 mg/dL 0.2-1.2 Specimen sli ghtly (BEAKER) (test hemolyzed code = 377) SODIUM (BEAKER) 140 meq/L 136-145 (test code = 381) POTASSIUM (BEAKER) 4.7 meq/L 3.5-5.1 Specimen slightly (test code = 379) hemolyzed CHLORIDE (BEAKER) 112 meq/L 98-107 H (test code = 382) CO2 (BEAKER) (test 21 meq/L 22-29 L code = 355) BLOOD UREA 58 mg/dL 7-21 H NITROGEN (BEAKER) (test code = 354) CREATININE 2.23 mg/dL 0.57-1.25 H Specimen slight ly (BEAKER) (test hemolyzed code = 358) GLUCOSE RANDOM 180 mg/dL 70-105 H (BEAKER) (test code = 652) CALCIUM (BEAKER) 8.2 mg/dL 8.4-10.2 L (test code = 697) AST (SGOT) 41 U/L 5-34 H Specimen slight ly (BEAKER) (test hemolyzed code = 353) ALT (SGPT) 15 U/L 6-55 Specimen slight ly (BEAKER) (test hemolyzed code = 347) EGFR (BEAKER) 23 Interpretatio n of eGFR (test code = 1092) mL/min/1.[address] age Description sq m Result G1 Gi l or high >=90 G2 Mildly decreased 60-89 G3a Mildl y to moderately 45-5 9 G3b Moderately to s everely 30-44 G4 Severl y decreased 15-29 G5 Kidney failure <15Reported eGF R is based on the CKD-EPI 2020 equation that d oes not use a race coefficientEsti mated GFR is not as accur ate as Creatinine Carrol matt in predicting glom erular filtration rate . Estimated GFR is not appl icable for dialysis patien ts Sales Representative Printing ID - [id number] 06:07:03 Test Item Value Reference Range Interpretation Comments PHOSPHORUS (BEAKER) 4.3 mg/dL 2.3-4.7 Specimen slightly (test code = 604) hemolyzed Sales Representative Printing ID - [id number] 06:07:02 Test Item Value Reference Range Interpretation Comments MAGNESIUM (BEAKER) 2.4 mg/dL 1.6-2.6 Specimen slightly (test code = 627) hemolyzed Sales Representative Printing ID - MARCOCALCIUM, [id number] 05:35:24 Test Item Value Reference Range Interpretation Comments CALCIUM IONIZED (BEAKER) (test 1.13 mmol/L 1.12-1.27 code = 698) PH, BLOOD (BEAKER) (test code = 7.39 1810) PROTHROMBIN TIME/[id number] 05:34:04 Test Item Value Reference Range Interpretation Comments PROTIME (BEAKER) (test code = 18.4 seconds 11.9-14.2 H 759) INR (BEAKER) (test code = 370) 1.64 <=5.90 RECOMMENDED COUMADIN/WARFARIN INR THERAPY RANGESSTANDARD DOSE: 2.0 - 3.0 Includes: PROPHYLAXIS for venous thrombosis, systemic embolization; TREATMENT for venous thrombosis and/or pulmonary embolus.HIGH RISK: Target INR is 2.5-3.5 for patients with mechanical heart valves.CBC W/PLT COUNT & AUTO [id number] 05:30:37 Test Item Value Reference Range Interpretation Comments WHITE BLOOD CELL COUNT (BEAKER) 4.1 K/ L 3.5-10.5 (test code = 775) RED BLOOD CELL COUNT (BEAKER) 3.23 M/ L 3.93-5.22 L (test code = 761) HEMOGLOBIN (BEAKER) (test code = 9.2 GM/DL 11.2-15.7 L 410) HEMATOCRIT (BEAKER) (test code = 28.2 % 34.1-44.9 L 411) MEAN CORPUSCULAR VOLUME (BEAKER) 87 fL 79-95 (test code = 753) MEAN CORPUSCULAR HEMOGLOBIN 28.5 pg 25.6-32.2 (BEAKER) (test code = 751) MEAN CORPUSCULAR HEMOGLOBIN CONC 32.6 GM/DL 32.2-35.5 (BEAKER) (test code = 752) RED CELL DISTRIBUTION WIDTH 18.4 % 11.7-14.4 H (BEAKER) (test code = 412) PLATELET COUNT (BEAKER) (test code 69 K/CU MM 150-450 L = 756) MEAN PLATELET VOLUME (BEAKER) 10.8 fL 9.4-12.3 (test code = 754) NUCLEATED RED BLOOD CELLS (BEAKER) 0 /100 WBC 0-0 (test code = 413) NEUTROPHILS RELATIVE PERCENT 62 % (BEAKER) (test code = 429) LYMPHOCYTES RELATIVE PERCENT 17 % (BEAKER) (test code = 430) MONOCYTES RELATIVE PERCENT 15 % (BEAKER) (test code = 431) EOSINOPHILS RELATIVE PERCENT 5 % (BEAKER) (test code = 432) BASOPHILS RELATIVE PERCENT 1 % (BEAKER) (test code = 437) NEUTROPHILS ABSOLUTE COUNT 2.55 K/ L 1.56-6.13 (BEAKER) (test code = 670) LYMPHOCYTES ABSOLUTE COUNT 0.68 K/ L 1.18-3.74 L (BEAKER) (test code = 414) MONOCYTES ABSOLUTE COUNT (BEAKER) 0.63 K/ L 0.24-0.36 H (test code = 415) EOSINOPHILS ABSOLUTE COUNT 0.21 K/ L 0.04-0.36 (BEAKER) (test code = 416) BASOPHILS ABSOLUTE COUNT (BEAKER) 0.03 K/ L 0.01-0.08 (test code = 417) IMMATURE GRANULOCYTES-RELATIVE 0.50 % 0.00-1.00 PERCENT (BEAKER) (test code = 2801) PROTEIN, RANDOM [id number] 21:32:29 Test Item Value Reference Range Interpretation Comments PROTEIN, URINE (BEAKER) (test code = < mg/dL 0-14 1569) Sales Representative Printing ID - ADMINURINALYSIS W/ [id number] 21:11:20 Test Item Value Reference Range Interpretation Comments COLOR (BEAKER) (test code [place] = 470) CLARITY (BEAKER) (test Clear code = 469) SPECIFIC GRAVITY UA 1.015 1.001-1.035 (BEAKER) (test code = 468) PH UA (BEAKER) (test code 6.0 5.0-8.0 = 467) PROTEIN UA (BEAKER) (test Negative Negative code = 464) GLUCOSE UA (BEAKER) (test Negative Negative code = 365) KETONES UA (BEAKER) (test Negative Negative code = 371) BILIRUBIN UA (BEAKER) Negative Negative (test code = 462) BLOOD UA (BEAKER) (test Negative Negative code = 461) NITRITE UA (BEAKER) (test Negative Negative code = 465) LEUKOCYTE ESTERASE UA Large Negative A (BEAKER) (test code = 466) UROBILINOGEN UA (BEAKER) 0.2 0.2-1.0 (test code = 463) RBC UA (BEAKER) (test code 2 /HPF = 519) WBC UA (BEAKER) (test code 37 /HPF = 520) MUCUS (BEAKER) (test code Rare = 1574) SQUAMOUS EPITHELIAL 2 /HPF (BEAKER) (test code = 516) CRYSTALS, URINE (BEAKER) Rare None Seen A (test code = 1521) SOURCE(BEAKER) (test code Urine, Clean Catch = 2795) Sales Representative Printing ID - [auto]Sales Representative Printing ID - techHEMOGLOBIN AND [id number] 16:34:15 Test Item Value Reference Range Interpretation Comments HEMOGLOBIN (BEAKER) (test code = 9.4 GM/DL 11.2-15.7 L 410) HEMATOCRIT (BEAKER) (test code = 29.1 % 34.1-44.9 L 411) Sales Representative Printing ID - 6000POCT-GLUCOSE [id number] 13:51:03 Test Item Value Reference Range Interpretation Comments POC-GLUCOSE METER 155 mg/dL 70-110 H : [facility] [facility] (BEAKER) (test code = [place], 1538) [address]: Sales Representative Printing/Techni bravo ID = [id number] for Bethany subramanian COMPREHENSIVE METABOLIC [id number] 01:15:55 Test Item Value Reference Range Interpretation Comments TOTAL PROTEIN 5.9 gm/dL 6.0-8.3 L (BEAKER) (test code = 770) ALBUMIN (BEAKER) 3.8 g/dL 3.5-5.0 (test code = 1145) ALKALINE 61 U/L 40-150 PHOSPHATASE (BEAKER) (test code = 346) BILIRUBIN TOTAL 2.5 mg/dL 0.2-1.2 H (BEAKER) (test code = 377) SODIUM (BEAKER) 141 meq/L 136-145 (test code = 381) POTASSIUM (BEAKER) 3.5 meq/L 3.5-5.1 (test code = 379) CHLORIDE (BEAKER) 112 meq/L 98-107 H (test code = 382) CO2 (BEAKER) (test 19 meq/L 22-29 L code = 355) BLOOD UREA 66 mg/dL 7-21 H NITROGEN (BEAKER) (test code = 354) CREATININE 2.21 mg/dL 0.57-1.25 H (BEAKER) (test code = 358) GLUCOSE RANDOM 136 mg/dL 70-105 H (BEAKER) (test code = 652) CALCIUM (BEAKER) 8.9 mg/dL 8.4-10.2 (test code = 697) AST (SGOT) 28 U/L 5-34 (BEAKER) (test code = 353) ALT (SGPT) 15 U/L 6-55 (BEAKER) (test code = 347) EGFR (BEAKER) 23 Interpretati on of eGFR (test code = 1092) mL/min/1.[address] age Description sq m Result G1 Gi l or high >=90 G2 Mildly decreased 60-89 G3a Mildl y to moderately 45-5 9 G3b Moderately to s everely 30-44 G4 Severl y decreased 15-29 G5 Kidney failure <15Reported eGF R is based on the CKD-EPI 2021 equation that d oes not use a race coefficientEsti mated GFR is not as accur ate as Creatinine Carrol gutierrez in predicting glom erular filtration rate . Estimated GFR is not appl icable for dialysis patien ts Sales Representative Printing ID - ADMINSpecimen slightly ictericPT/[id number] 00:45:44 Test Item Value Reference Range Interpretation Comments PROTIME (BEAKER) (test code = 18.4 seconds 11.9-14.2 H 759) INR (BEAKER) (test code = 370) 1.57 <=5.90 PARTIAL THROMBOPLASTIN TIME 34.5 seconds 22.5-36.0 (BEAKER) (test code = 760) RECOMMENDED COUMADIN/WARFARIN INR THERAPY RANGESSTANDARD DOSE: 2.0 - 3.0 Includes: PROPHYLAXIS for venous thrombosis, systemic embolization; TREATMENT for venous thrombosis and/or pulmonary embolus.HIGH RISK: Target INR is 2.5-3.5 for patients with mechanical heart valves.CBC W/PLT COUNT & AUTO [id number] 00:22:14 Test Item Value Reference Range Interpretation Comments WHITE BLOOD CELL COUNT (BEAKER) 4.1 K/ L 3.5-10.5 (test code = 775) RED BLOOD CELL COUNT (BEAKER) 3.48 M/ L 3.93-5.22 L (test code = 761) HEMOGLOBIN (BEAKER) (test code = 9.6 GM/DL 11.2-15.7 L 410) HEMATOCRIT (BEAKER) (test code = 29.3 % 34.1-44.9 L 411) MEAN CORPUSCULAR VOLUME (BEAKER) 84 fL 79-95 (test code = 753) MEAN CORPUSCULAR HEMOGLOBIN 27.6 pg 25.6-32.2 (BEAKER) (test code = 751) MEAN CORPUSCULAR HEMOGLOBIN CONC 32.8 GM/DL 32.2-35.5 (BEAKER) (test code = 752) RED CELL DISTRIBUTION WIDTH 18.0 % 11.7-14.4 H (BEAKER) (test code = 412) PLATELET COUNT (BEAKER) (test code 56 K/CU MM 150-450 L = 756) MEAN PLATELET VOLUME (BEAKER) 10.9 fL 9.4-12.3 (test code = 754) NUCLEATED RED BLOOD CELLS (BEAKER) 0 /100 WBC 0-0 (test code = 413) NEUTROPHILS RELATIVE PERCENT 64 % (BEAKER) (test code = 429) LYMPHOCYTES RELATIVE PERCENT 17 % (BEAKER) (test code = 430) MONOCYTES RELATIVE PERCENT 15 % (BEAKER) (test code = 431) EOSINOPHILS RELATIVE PERCENT 3 % (BEAKER) (test code = 432) BASOPHILS RELATIVE PERCENT 1 % (BEAKER) (test code = 437) NEUTROPHILS ABSOLUTE COUNT 2.61 K/ L 1.56-6.13 (BEAKER) (test code = 670) LYMPHOCYTES ABSOLUTE COUNT 0.69 K/ L 1.18-3.74 L (BEAKER) (test code = 414) MONOCYTES ABSOLUTE COUNT (BEAKER) 0.59 K/ L 0.24-0.36 H (test code = 415) EOSINOPHILS ABSOLUTE COUNT 0.13 K/ L 0.04-0.36 (BEAKER) (test code = 416) BASOPHILS ABSOLUTE COUNT (BEAKER) 0.03 K/ L 0.01-0.08 (test code = 417) IMMATURE GRANULOCYTES-RELATIVE 0.50 % 0.00-1.00 PERCENT (BEAKER) (test code = 2801) SARS-CoV-2 (COVID-19) RNA [Presence] in Respiratory specimen by MARICEL with probe [id number] 17:33:40 Test Item Value Reference Range Interpretation Comments SARS-CoV-2 (COVID-19) RNA Not detected Not-Detected [Presence] in Respiratory specimen by MARICEL with probe detection (test code = 91350-0) Whether patient is employed in a healthcare setting (test code = 64905-0) Whether the patient has symptoms related to condition of interest (test code = 85762-8) Patient was hospitalized because of this condition (test code = 89691-4) Whether the patient was admitted to intensive care unit (ICU) for condition of interest (test code = 67845-5) Whether patient resides in a congregate care setting (test code = 32839-3) [facility] RNA [Presence] in Respiratory specimen by MARIECL with probe [id number] 14:25:58 Test Item Value Reference Range Interpretation Comments SARS-CoV-2 (COVID-19) RNA Not detected Not-Detected [Presence] in Respiratory specimen by MARICEL with probe detection (test code = 18571-8) Whether patient is employed in a healthcare setting (test code = 81319-0) Whether the patient has symptoms related to condition of interest (test code = 30464-0) Patient was hospitalized because of this condition (test code = 73430-1) Whether the patient was admitted to intensive care unit (ICU) for condition of interest (test code = 99825-8) Whether patient resides in a congregate care setting (test code = 09083-7) JOVITA SALINAS PARACENTESIS/PERITONECENTESIS WITH [id number] 15:25:50EXAMINATION: IMAGE GUIDED PARACENTESIS. HISTORY/INDICATION: Therapeutic,Large Volume ?Please performlarge volumeparacentesis every 4 weeks for ascites SEDATION: The patient did not require conscious sedation for the procedure. TECHNIQUE: The risks (including infection and increased risk of bleedingdue to abnormal prothrombin time and platelets), benefits and alternativeswere discussed and informed consent was obtained. Prior to beginning the procedure, [place] "timeout" Protocol wasperformed to confirm the identity [...] DISCHARGED TO: Outpatient surgery for intravenous albumin therapy.[facility], Radiant Results Inft User - 05/02/2021 [...] was obtained. Prior to beginning the procedure, [place] "timeout" Protocol wasp erformed to confirm the [...] Minimal.CONDITION: Stable.DISCHARGED TO: Outpatient surgery for intravenous albumintherapy.[facility]/PERITONECENTESIS WITH [id number] 15:57:18EXAMINATION: IMAGE GUIDED PARACENTESIS. HISTORY/INDICATION: Other ascites [...] was obtained. Prior to beginning the procedure, [place] "timeout" Protocol wasperformed to confirm the identity [...] TO: Outpatient surgery for intravenous albumin therapy. [facility], RadiKeenanults Inft User - 03/28/2021 10:58 AM CDTEXAMINATION: [...] was obtained. Prior to beginning the procedure, [place] "timeout" Protocol wasperformed to confirm the identity [...] Stable.DISCHARGED TO: Outpatient surgery for intravenous albumin therapy.[facility] FLUID,[id number] 17:47:00 Test Item Value Reference Range Interpretation Comments FLUID,PARACENTESIS (test code = FLPARACENT) RUN DATE: 02/19/21 [place] - LAB PAGE 1 RUN TIME: 1748 Specimen Inquiry RUN USER: INTERFACE PATIENT: RENA SINCLAIR LOC: U U #: [id number] AGE/SX: 70/F ROOM: [facility] RE02/15/[facility]: Briana Walden MD : 50 BED: A DIS: 04/05/21 STATUS: DIS IN TLOC: SPEC #: [id number] RECD: 02/18/21 STATUS: [employer] #: [id number] HARIS: 02/18/[address] [facility] [address]: Briana Walden MD ENTERED: 02/18/21 SP TYPE: FLUID,PARC OTHR DR: DOES_NOT KNOW Self Referred Laisha Alexis MDORDERED: CB, SUREPATH CODES: [id number] - ABDOMEN, NOS [id number] - ABDOMEN, NOS NO EVIDENCE OF [id number] - ABDOMEN, NOS CENTESIS, NOS COPIES TO: DOES_NOT KNOW [place] [address] [facility] [address] [place] [address] Laisha Alexis MD [address] [address] PROCEDURES: CB (02/18/21) SUREPATH (02/18/21) TISSUES: A. ABDOMEN, NOS - PARACENTESIS CPT CODES CPT CODE(S): 05934 , 33756 , , , , , FINAL DIAGNOSIS [...] INTERFACE SPEC #: [id number] PATIENT: RENA SINCLAIR #[id number] (Continued) MICROSCOPIC DESCRIPTION Paracentesis. - Signed SIGNATURE ON FILE Silver Riley 02/19/211746 END OF REPORT - PARACENTESIS W [id number] 11:12:00 [facility] : 1950 Sex: F Patient Name: RENA SINCLAIR Unit No: [id number] EXAMS: CPT CODE: [id number] PARACENTESIS W IMAGE [id number] EXAMINATION: IMAGE-GUIDED PARACENTESIS. LOCATION: B2. HISTORY: Ascites SEDATION: The patient didnot require conscious sedation for the procedure. ANTIBIOTICS: None. Not indicated. CONTRAST: None. TECHNIQUE: The risks, benefits, and alternatives were discussed and informed consent was obtained. Prior to beginning the procedure, [place] Protocol was used to confirm the patient's identity and planned procedure. Sterile barriers including cap, mask, hand hygiene, sterile gloves, sterile drape andcutaneous antisepsis were used. The patient's abdomen was examined with ultrasound and a suitable poc ket of ascitic fluid in the right lower quadrant was identified. The overlying skin was anesthetizedwith lidocaine. Using real-time ultrasound guidance, a one- step needle was advanced into the ascitic fluid. Approximately 10,100 mL of clear yellow fluid was drained. 75 g of 25% albumin was given. Atthe conclusion of the procedure, the catheter was removed and a sterile dressing applied to the site. ESTIMATED BLOOD LOSS: Less than 30 milliliters. COMPLICATIONS: None. DISCHARGED TO: Inpatient unit.FINDINGS: Ultrasound demonstrated a large amount of ascitic fluid. IMPRESSION: Successful image-guided paracentesis. die stamping press operator: Trudi Dhillon PA-C I have personally reviewed these images and agree with the physician assistant loan processor's interpretation. at 1112 Reported and signed by: Laisha Alexis MD [facility] NAME:RENA SINCLAIR [id number] PHYS: [place] [address] : 1950 AGE: 70 SEX: F LOC: Z.620 A PHONE #: [phone] EXAM DATE: 02/18/2021 STATUS: ADM IN FAX #: [phone] RADIOLOGY NO: PAGE 1 Signed Report (CONTINUED) Patient Name: RENA SINCLAIR Unit No: [id number] EXAMS: CPT CODE: [id number] PARACENTESIS W IMAGE [id number] (Continued)CC: Mason Ward MD Technologist: [employer] Transcrpt Date/Tm/Trnsp: 02/18/2021 (1112) t.[email or web address] Orig Print D/T: S: 02/18/2021 (1115) [facility] NAME: RENA SINCLAIR [address] PHYS:UGLEANNET - [place] [address] : 1950 AGE: 70 SEX: F : Z.620 A PHONE #: [phone] EXAM DATE: 02/18/2021 STATUS: ADM IN FAX #: [phone] RADIOLOGY NO: PAGE 2 Signed ReportGLUCOSE BEDSIDE [id number] 10:44:00 Test Item Value Reference Range Interpretation Comments GLUCOSE BEDSIDE TESTING (test code 259 MG/DL 60-99 H = GLUBED) COVID 19 Asymptomatic IH [id number] 09:16:00 Test Item Value Reference Range Interpretation [...] virus (antigen) in the sample." GLUCOSE BEDSIDE [id number] 07:41:00 Test Item Value Reference Range Interpretation Comments GLUCOSE BEDSIDE TESTING (test code 157 MG/DL 60-99 H = GLUBED) BASIC METABOLIC [id number] 05:35:00 Test Item Value Reference Range Interpretation [...] UNITS/L 120-246 N code = LDH) PROTHROMBIN [id number] 05:26:00 Test Item Value Reference Range Interpretation [...] syste eloise embolism. 3.0 - 4.5 HGB [id number] 05:17:00 Test Item Value Reference Range Interpretation Comments HEMOGLOBIN (test code = HGB) 7.1 G/DL 11.2-14.9 L HEMATOCRIT (test code = HCT) 24.2 % 33.2-43.5 L GLUCOSE BEDSIDE [id number] 21:29:00 Test Item Value Reference Range Interpretation Comments GLUCOSE BEDSIDE TESTING (test code 157 MG/DL 60-99 H = GLUBED) GLUCOSE BEDSIDE [id number] 16:33:00 Test Item Value Reference Range Interpretation Comments GLUCOSE BEDSIDE TESTING (test code 165 MG/DL 60-99 H = GLUBED) GLUCOSE BEDSIDE [id number] 11:19:00 Test Item Value Reference Range Interpretation Comments GLUCOSE BEDSIDE TESTING (test code 173 MG/DL 60-99 H = GLUBED) GLUCOSE BEDSIDE [id number] 07:38:00 Test Item Value Reference Range Interpretation Comments GLUCOSE BEDSIDE TESTING (test code 128 MG/DL 60-99 H = GLUBED) BASIC METABOLIC [id number] 06:59:00 Test Item Value Reference Range Interpretation [...] UNITS/L 120-246 N code = LDH) HGB [id number] 06:32:00 Test Item Value Reference Range Interpretation Comments HEMOGLOBIN (test code = HGB) 7.3 G/DL 11.2-14.9 L HEMATOCRIT (test code = HCT) 24.4 % 33.2-43.5 L GLUCOSE BEDSIDE [id number] 20:53:00 Test Item Value Reference Range Interpretation Comments GLUCOSE BEDSIDE TESTING (test code 201 MG/DL 60-99 H = GLUBED) BASIC METABOLIC [id number] 07:14:00 Test Item Value Reference Range Interpretation [...] 120-246 N code = LDH) THYROID STIMULATING [id number] 07:14:00 Test Item Value Reference Range Interpretation Comments THYROID STIMULATING 2.620 MIU/L 0.465-4.68 N Please b e aware that HORMONE (test code = bias re sults for TSH TSH) may occur forpa tient who are taking Biotin suppleme nts. T4 [id number] 07:13:00 Test Item Value Reference Range Interpretation Comments T4 FREE (test code = T4F) 1.4 NG/DL 0.78-2.19 N HGB [id number] 06:47:00 Test Item Value Reference Range Interpretation Comments HEMOGLOBIN (test code = HGB) 7.2 G/DL 11.2-14.9 L HEMATOCRIT (test code = HCT) 23.8 % 33.2-43.5 L BASIC METABOLIC [id number] 06:44:00 Test Item Value Reference Range Interpretation [...] 120-246 N code = LDH) THYROID STIMULATING [id number] 06:44:00 Test Item Value Reference Range Interpretation Comments THYROID STIMULATING HORMONE (test code MIU/L 0.465-4.68 = TSH) GLUCOSE BEDSIDE [id number] 06:28:00 Test Item Value Reference Range Interpretation Comments GLUCOSE BEDSIDE TESTING (test code 174 MG/DL 60-99 H = GLUBED) VITAMIN [id number] 22:26:00 Test Item Value Reference Range Interpretation Comments VITAMIN B12 (test code = VITB12) 987 pg/mL 239-931 H [id number] 22:26:00 Test Item Value Reference Range Interpretation Comments FERRITIN (test code = VAUGHN) 12.3 NG/ML 11.1-264 N VITAMIN [id number] 22:11:00 Test Item Value Reference Range Interpretation Comments VITAMIN B12 (test code = VITB12) pg/mL 239-931 [id number] 22:11:00 Test Item Value Reference Range Interpretation Comments FERRITIN (test code = VAUGHN) 12.3 NG/ML 11.1-264 N FE W/TOTAL IRON BINDING CAP.2021-02-15 21:44:00 Test Item Value Reference Range Interpretation Comments SERUM IRON (test code = IRON) 35 MCG/DL 37-170 L TOTAL IRON BINDING CAPACITY (test 400 MCG/DL 265-497 N code = TIBC) IRON SATURATION (test code = 9 % 12-57 L FESAT) [id number] 21:35:00 Test Item Value Reference Range Interpretation Comments AMMONIA (test code = AMM) < 9 mcMOL/L 9-30 L FE W/TOTAL IRON BINDING CAP.2021-02-15 21:34:00 Test Item Value Reference Range Interpretation Comments SERUM IRON (test code = IRON) 35 MCG/DL 37-170 L TOTAL IRON BINDING CAPACITY (test MCG/DL 265-497 code = TIBC) IRON SATURATION (test code = FESAT) % 12-57 GLUCOSE BEDSIDE [id number] 20:37:00 Test Item Value Reference Range Interpretation Comments GLUCOSE BEDSIDE TESTING (test code 142 MG/DL 60-99 H = GLUBED) COMPREHENSIVE METABOLIC [id number] 12:57:00 Test Item Value Reference Range Interpretation [...] N PHOSPHATASE (test code = ALKP) PROTHROMBIN [id number] 12:53:00 Test Item Value Reference Range Interpretation [...] eloise embolism. 3.0 - 4.5 CBC W/AUTO [id number] 12:40:00 Test Item Value Reference Range Interpretation [...] K/mm3 0.0-0.1 N NRBC#) IR PARACENTESIS/PERITONECENTESIS WITH [id number] 16:49:16EXAMINATION: IMAGE GUIDED PARACENTESIS. HISTORY/INDICATION: please perform large volume paracentesisevery 4 weeksfor ascites please perform large volume paracentesis every 4 weeks forascites SEDATION:The patient did not require conscious sedation for the procedure. TECHNIQUE: The risks (including infection and increased risk of bleedingdue to abnormal prothrombin time and platelets), benefits and al ternativeswere discussed and informed consent was obtained. Prior to beginning the procedure, [place] "timeout" Protocol wasperformed to confirm the identity [...] TO: Outpatient surgery for intravenous albumin therapy. [facility], Radiant Results Inft User - 01/29/2021 [...] was obtained. Prior to beginning the procedure, [place] "timeout" Protocol wasperformed to confirm the identity [...] Stable.DISCHARGED TO: Outpatient surgery for intravenous albumin therapy.[facility]/PERITONECENTESIS WITH [id number] 19:45:02EXAMINATION: IMAGE GUIDED PARACENTESIS. HISTORY/INDICATION: Other ascites Please perform large volume paracentesisevery 4 weeks for ascites SEDATION: The patient did not require conscious sedation for the procedure. TECHNIQUE: The risks (including infection and increased risk of bleedingdue to abnormal prothrombin time and platelets), benefits and alternativeswere discussed and informed consent was ob tained. Prior to beginning the procedure, [place] "timeout" Protocol wasperformed to confirm the identity [...] TO: Outpatient surgery for IV albumin therapy. Rionofre, Saurabh Ryan Inft User - 01/03/2021 1:46 PM CSTEXAMINATION: IMAGE GUIDED PARACENTESIS. HISTORY/INDICATION: Other ascites Please perform large volume paracentesisevery 4 weeks for ascitesSEDATION: The patient did not require conscious sedation for the procedure.TECHNIQUE: The risks (including infection and increased risk of bleedingdue to abnormal prothrombin time and platelets), benefits and alternativeswere discussed and informed consent was obtained. Prior to beginning the procedure, [place] "timeout" Protocol wasperformed to confirm the identity [...] Stable.DISCHARGED TO: Outpatient surgery for IV albumin therapy.[facility]ENTES[facility]/PERITONECENTESIS WITH [id number] 20:22:56Successful US- guided paracentesis.PROCEDURE: US-guided paracentesis HISTORY: [...] discussingthe risks and benefits of the procedure. [place] protocol timeout wasperformed verifying correct patient, correct [...] discussingthe risks and benefits of the procedure. [place] protocol timeout wasperformed verifying correct patient, correct [...] Estimated Blood Loss : <1 ccIMPRESSIONSuccessful US-guided paracentesis.[facility] PARACENTESIS/PERITONECENTESIS WITH [id number] 21:20:52 Successful US-guided paracentesis.PROCEDURE: US-guided paracentesis HISTORY: [...] discussingthe risks and benefits of the procedure. [place] protocol timeout wasperformed verifying correct patient, correct [...] discussingthe risks and benefits of the procedure. [place] protocol timeout wasperformed verifying correct patient, correct [...] Estimated Blood Loss : <1 ccIMPRESSIONSuccessful US-guided paracentesis.[facility]TIB[facility] (IGG AND IGM)2020-10-03 00:09:00 Test Item Value Reference Range Interpretation Comments HAV Total (test code = 2506155758) Negative HAVT Semi-Quantitative (test code = 7336894243) [facility] SURFACE [id number] 00:09:00 Test Item Value Reference Range Interpretation Comments HBsAB (test code = Negative 7133156401) HBsAb mIU/mL Semi-Quantitative (test code = 3555890170) MARY (test code = Interpretation: MARY) ?Hepatitis B Surface Antibody ? Negative - Patient is considered to be not immune to infection with HBV. ? ? Positive - Anti-HBs detected at greater than or equal to 12 mIU/mL. ?Patient is considered to be immune to infection with HBV. ? [facility]TIBODY (IGM & IGG)2020-10-03 00:09:00 Test Item Value Reference Range Interpretation Comments HBC (test code = 9295134786) Negative HBC Semi-Quantitative (test code = 9856157562) [facility]CV [id number] 00:09:00 Test Item Value Reference Range Interpretation Comments HCV Ab (test code = 86901-7) Negative HCV Semi-Quantitative (test code = 96490-7) [facility] DistrictALPHA [id number] 23:55:00 Test Item Value Reference Range Interpretation Comments AFP (test code = 3.2 ng/mL See_Comment [Automated 3380669610) message] The system which generated this result transmitted reference range : <=7.5. The reference range was not used to interpret this result as normal/abnormal . MARY (test code = MARY) Biotin has been reported to cause a negative bias, interpret results relative to patient's use of biotin. Lab Interpretation Normal (test code = 16612-1) [facility]IS [facility] SURFACE [id number] 23:52:00 Test Item Value Reference Range Interpretation Comments HBsAg Semi-Quantitative (test code = Negative Negative 5195-3) [facility] WITH [id number] 19:15:00 Test Item Value Reference Range Interpretation [...] RDW-SD (test code = 45.3 fL 39-49.9 38379-9) RDW-CV (test code = 15.7 % 12-15.5 H 788-0) PLT (test code = See_Comment L [Automated 777-3) message] The sy stem which generated this result transmitted reference range : 166 - 358 10*3/ ?L. The reference r glenn was not used to interpret this result as normal/abnormal . MPV (test code = 12.2 fL 9.5-12.9 87383-8) IPF % (test code = 4.5 % 1.3-7.7 Platelet count [id number]) measured by fluorescence method. NRBC/100 WBC (test See_Comment [Automat ed code = 9391374168) message] The system which generated this result transmitted reference range : 0.0 - 10.0 /100 WBCs. The refer ence range was not u sed to interpret th is result as normal/abnormal . NRBC x10^3 (test code <0.01 See_Comment [Auto mated = 2372412223) message] The s ystem which generated this result transmitted reference range : 10*3/?L. The reference range was not used to interpret this result as normal/abnormal . GRAN MAT (NEUT) % 64.4 % (test code = 770-8) IMM GRAN % (test code 0.30 % = 6295071385) LYMPH % (test code = 19.7 % 736-9) MONO % (test code = 11.5 % 5905-5) EOS % (test code = 3.5 % 713-8) BASO % (test code = 0.6 % 706-2) GRAN MAT x10^3(ANC) 2.02 10*3/uL 1.88-7.09 (test code = 1525541985) IMM GRAN x10^3 (test <0.03 0-0.06 code = 8350010440) LYMPH x10^3 (test code 0.62 10*3/uL 1.32-3.29 L = 731-0) MONO x10^3 (test code 0.36 10*3/uL 0.33-0.92 = 742-7) EOS x10^3 (test code = 0.11 10*3/uL 0.03-0.39 711-2) BASO x10^3 (test code <0.03 0.01-0.07 = 704-7) Lab Interpretation Abnormal (test code = 41022-8) [facility] WITH [id number] 19:15:00 Test Item Value Reference Range Interpretation [...] RDW-SD (test code = 45.3 fL 39-49.9 73455-6) RDW-CV (test code = 15.7 % 12-15.5 H 788-0) PLT (test code = See_Comment L [Automated 777-3) message] The sy stem which generated this result transmitted reference range : 166 - 358 10*3/ ?L. The reference r glenn was not used to interpret this result as normal/abnormal . MPV (test code = 12.2 fL 9.5-12.9 97374-4) IPF % (test code = 4.5 % 1.3-7.7 Platelet count [id number]) measured by fluorescence method. NRBC/100 WBC (test See_Comment [Automat ed code = 4472169023) message] The system which generated this result transmitted reference range : 0.0 - 10.0 /100 WBCs. The refer ence range was not u sed to interpret th is result as normal/abnormal . NRBC x10^3 (test code <0.01 See_Comment [Auto mated = 1033584923) message] The s ystem which generated this result transmitted reference range : 10*3/?L. The reference range was not used to interpret this result as normal/abnormal . GRAN MAT (NEUT) % 64.4 % (test code = 770-8) IMM GRAN % (test code 0.30 % = 7662496425) LYMPH % (test code = 19.7 % 736-9) MONO % (test code = 11.5 % 5905-5) EOS % (test code = 3.5 % 713-8) BASO % (test code = 0.6 % 706-2) GRAN MAT x10^3(ANC) 2.02 10*3/uL 1.88-7.09 (test code = 8639289605) IMM GRAN x10^3 (test <0.03 0-0.06 code = 5909064226) LYMPH x10^3 (test code 0.62 10*3/uL 1.32-3.29 L = 731-0) MONO x10^3 (test code 0.36 10*3/uL 0.33-0.92 = 742-7) EOS x10^3 (test code = 0.11 10*3/uL 0.03-0.39 711-2) BASO x10^3 (test code <0.03 0.01-0.07 = 704-7) Lab Interpretation Abnormal (test code = 45299-8) [facility] DistrictPROT[facility]OMBIN TIME / [id number] 19:10:00 Test Item Value Reference Range Interpretation Comments PROTIME PATIENT (test See_Comment H [Auto mated message] code = 5964-2) The system [employer] generated this result transmitted ref erence range: 12.0 - 1 4.7 Seconds. The reference range was not used to int erpret this result as normal/abnormal . INR (test code = 6301-6) Nor mal INR <1.1; Warfarin Therap eutic range 2.0 to 3. 0 or 2.5 to 3.5, dep ending upon the indica tions. Lab Interpretation (test Abnormal code = 94932-6) [facility] DistrictPROTHROMBIN TIME / [id number] 19:10:00 Test Item Value Reference Range Interpretation Comments PROTIME PATIENT (test See_Comment H [Auto mated message] code = 5964-2) The system [employer] generated this result transmitted ref erence range: 12.0 - 1 4.7 Seconds. The reference range was not used to int erpret this result as normal/abnormal . INR (test code = 6301-6) Nor mal INR <1.1; Warfarin Therap eutic range 2.0 to 3. 0 or 2.5 to 3.5, dep ending upon the indica tions. Lab Interpretation (test Abnormal code = 53230-0) [facility] DistrictFERRITIN [id number] 18:12:00 Test Item Value Reference Range Interpretation Comments FERRITIN (test code = 20.5 ng/mL 264 3412232906) MARY (test code = MARY) Biotin has been reported to cause a negative bias, interpret results relative to patient's use of biotin. Lab Interpretation (test Normal code = 64494-8) [facility] DistrictFERR[facility]IN [id number] 18:12:00 Test Item Value Reference Range Interpretation Comments FERRITIN (test code = 20.5 ng/mL 264 0838252395) MARY (test code = MARY) Biotin has been reported to cause a negative bias, interpret results relative to patient's use of biotin. Lab Interpretation (test Normal code = 56962-9) [facility] DistrictTOTAL IRON BINDING [id number] 17:49:00 Test Item Value Reference Range Interpretation Comments TIBC (test code = 3856500723) 401 ug/dL 250-410 % FE SAT (test code = 3032029025) 12 % 20-50 L Lab Interpretation (test code = Abnormal 42113-6) [facility] SystemsT[facility] BIND[facility] [id number] 17:49:00 Test Item Value Reference Range Interpretation Comments TIBC (test code = 4995926489) 401 ug/dL 250-410 % FE SAT (test code = 6165683675) 12 % 20-50 L Lab Interpretation (test code = Abnormal 55111-7) [facility] DistrictHEPATIC FUNCTION PANEL (29324) (ALB,T.PRO,BILI T,BU/BC,ALT,AST,ALK PHOS)2020-10-02 17:39:00 Test Item Value Reference Range Interpretation Comments TOTAL BILI (test code = 8729761178) 1.3 mg/dL 0.1-1.1 H BILI UNCON (test code = 5874471235) 1.0 mg/dL 0.1-1.1 BILI CONJ (test code = 1674994218) 0.0 mg/dL 0-0.3 T PROTEIN (test code = 2530816378) 6.8 g/dL 6.3-8.2 ALBUMIN (test code = 4345959003) 3.0 g/dL 3.5-5 L ALK PHOS (test code = 9848619643) 95 U/L 34-122 ALTv (test code = 1742-6) 18 U/L 5-35 AST(SGOT) (test code = 1566967103) 53 U/L 13-40 H Lab Interpretation (test code = Abnormal 31803-1) [facility] DistrictIRON2020-11-17 17:39:00 Test Item Value Reference Range Interpretation Comments IRON (test code = 7059078244) 49 ug/dL 50-160 L Lab Interpretation (test code = Abnormal 92444-8) [facility] DistrictHEPAT[facility] FUNCTION PANEL (36621) (ALB,T.PRO,BILI T,BU/BC,ALT,AST,ALK PHOS)2020-10-02 17:39:00 Test Item Value Reference Range Interpretation Comments TOTAL BILI (test code = 0616520493) 1.3 mg/dL 0.1-1.1 H BILI UNCON (test code = 7751907307) 1.0 mg/dL 0.1-1.1 BILI CONJ (test code = 6782059376) 0.0 mg/dL 0-0.3 T PROTEIN (test code = 7790439758) 6.8 g/dL 6.3-8.2 ALBUMIN (test code = 1495535572) 3.0 g/dL 3.5-5 L ALK PHOS (test code = 3727547259) 95 U/L 34-122 ALTv (test code = 1742-6) 18 U/L 5-35 AST(SGOT) (test code = 6742547465) 53 U/L 13-40 H Lab Interpretation (test code = Abnormal 57351-3) [facility] DistrictIRON2020-11-17 17:39:00 Test Item Value Reference Range Interpretation Comments IRON (test code = 6695672703) 49 ug/dL 50-160 L Lab Interpretation (test code = Abnormal 81620-0) [facility] DistrictCT HEAD WO [id number] 14:12:08 No acute intracranial abnormality. Preliminary Report Dictated by Resident: Kael Jose I, Karan Perez MD., have reviewed this study and [...] reviewed this study and agree with the abovereport.[facility] [id number] 14:11:00 Test Item Value Reference Range Interpretation Comments TROPONIN I (test <0.012 See_Comment [Automated code = 0767515157) message] The system which generated this result [...] ? Lab Interpretation Normal (test code = 07566-2) [facility] DistrictACETAMINOPHEN2020-04-11 13:30:00 Test Item Value Reference Range Interpretation Comments ACETAMINOP (test code = <10.0 10-30 L 5397586582) MARY (test code = MARY) Toxic: Greater than 200 ug/mL @ 4 hour post ingestion or greater than 50 ug/mL @ 12 hour post ingestion Lab Interpretation (test Abnormal code = 45863-8) [facility] DistrictSALICYLATE2020-04-11 13:13:00 Test Item Value Reference Range Interpretation Comments SALICYLATE (test code 10 mg/L = 0645000135) MARY (test code = MARY) Therapeutic Range: ? Analgesic and Antipyretic Use ? 20-100 mg/L ? ? Anti-Inflammatory Use ? 100-250 mg/L Toxic Range: ? Greater than 300 mg/L [facility] DistrictaPTT2020-04-11 13:12:00 Test Item Value Reference Range Interpretation Comments APTT Patient (test See_Comment [Automat ed code = 3173-2) message] The system which generated this result transmitted reference range : 23 - 38 Seconds . The reference range was not used to interpr et this result as normal/abnormal . MARY (test code = MARY) The [facility] patient population mean normal value for aPTT is 30 seconds. Lab Interpretation Normal (test code = 49122-7) [facility] DistrictPROTHROMBIN TIME / [id number] 13:10:00 Test Item Value Reference Range Interpretation [...] tions. Lab Interpretation (test Abnormal code = 67825-6) [facility] DistrictADC / [facility] - DRUG SCREEN [id number] 13:08:00 Test Item Value Reference Range Interpretation Comments BENZO U (test code = Negative Negative 2195304557) FATEMEH U (test code = Negative Negative 9321227986) AMPHET (test code = Negative Negative 8994252021) THC (test code = Negative Negative 4630307890) METHADONE (test code = Negative Negative 2768724729) Meth U (test code = Negative Negative 3924819945) OPIATES (test code = Negative Negative 5139780717) Cocaine Metabolite (test Negative Negative code = 1923500938) PROPOXY (test code = Negative Negative 1745425055) Tric U (test code = Negative Negative 1984723337) PCP (test code = Negative Negative 9049939540) OXYCOD (test code = Negative Negative 3097665780) MARY (test code = MARY) Urine Drug [...] testing). Lab Interpretation (test Normal code = 25830-2) [facility] DistrictUrinalysis2020-04-11 13:07:00 Test Item Value Reference Range Interpretation Comments APPEARANCE (test code = Clear Clear 6068968751) COLOR (test code = Yellow Yellow 0911208172) PH (test code = 4.8-8.0 5081942652) SP GRAVITY (test code = 1.003-1.030 5267993969) GLU U QUAL (test code = 150 mg/dL Normal A 4160396045) BLOOD (test code = Negative Negative 8790639761) KETONES (test code = Negative Negative 4215641204) PROTEIN (test code = Negative Negative 2887-8) UROBILIN (test code = 2.0 mg/dL Normal A 4070420790) BILIRUBIN (test code = Negative Negative 7091991765) NITRITE (test code = Negative Negative 4287336228) LEUK SABA (test code = Negative Negative 1148749475) RBC/HPF (test code = See_Comment [Autom ated message] 6112595375) The system [employer] generated this result transmit carlitos reference range : 0 - 3 HPF. The refe rence range was not u sed to interpret th is result as normal/abnormal . WBC/HPF (test code = See_Comment [Autom ated message] 3261640490) The system [employer] generated this result transmit carlitos reference range : 0 - 5 HPF. The refe rence range was not u sed to interpret th is result as normal/abnormal . BACTERIA (test code = Moderate Negative A 4016571365) MUCOUS (test code = Moderate Negative LPF A 2899823662) SQ EPITH (test code = <1 HPF 8401518697) HYAL CAST (test code = See_Comment [Aut omated message] 4672583935) The system whic h generated this result transmit carlitos reference range : <=2 LPF. The refere nce range was not u sed to interpret th is result as normal/abnormal . Lab Interpretation (test Abnormal code = 24002-9) [facility] DistrictAMMONIA, [id number] 12:48:00 Test Item Value Reference Range Interpretation Comments AMMONIA (test code = 0423576596) 13 umol/L 9-33 Lab Interpretation (test code = Normal 93195-4) [facility] WITH [id number] 12:37:00 Test Item Value Reference Range Interpretation Comments WBC (test code = See_Comment [Automated 7290-2) message] The sy stem which generated this result transmitted reference range : 4.30 - 11.10 10*3/?L. The reference range was not used to interpret this result as normal/abnormal . RBC (test code = See_Comment [Automated 479-8) message] The sy stem which generated this [...] RDW-SD (test code = 42.4 fL 39-49.9 64783-9) RDW-CV (test code = 13.0 % 12-15.5 788-0) PLT (test code = See_Comment L [Automated 777-3) message] The sy stem which generated this result transmitted reference range : 166 - 358 10*3/ ?L. The reference r glenn was not used to interpret this result as normal/abnormal . MPV (test code = 11.8 fL 9.5-12.9 39554-9) IPF % (test code = 4.6 % 1.3-7.7 Platelet count 0843232210) measured by fluorescence method. NRBC/100 WBC (test See_Comment [Automat ed code = 4227290124) message] The system which generated this result transmitted reference range : 0.0 - 10.0 /100 WBCs. The refer ence range was not u sed to interpret th is result as normal/abnormal . NRBC x10^3 (test code <0.01 See_Comment [Auto mated = 9754656375) message] The s ystem which generated this result transmitted reference range : 10*3/?L. The reference range was not used to interpret this result as normal/abnormal . GRAN MAT (NEUT) % 80.2 % (test code = 770-8) IMM GRAN % (test code 0.20 % = 1305191960) LYMPH % (test code = 12.0 % 736-9) MONO % (test code = 6.2 % 5905-5) EOS % (test code = 1.2 % 713-8) BASO % (test code = 0.2 % 706-2) GRAN MAT x10^3(ANC) 4.55 10*3/uL 1.88-7.09 (test code = 3164104756) IMM GRAN x10^3 (test <0.03 0-0.06 code = 7537315980) LYMPH x10^3 (test code 0.68 10*3/uL 1.32-3.29 L = 731-0) MONO x10^3 (test code 0.35 10*3/uL 0.33-0.92 = 742-7) EOS x10^3 (test code = 0.07 10*3/uL 0.03-0.39 711-2) BASO x10^3 (test code <0.03 0.01-0.07 = 704-7) PLT ESTIMATE (test Decreased Normal A code = 9317-9) Lab Interpretation Abnormal (test code = 42539-8) [facility] Metabolic Panel (NA, K, CL, CO2, GLUCOSE, BUN, CREATININE, CA)2020-02-25 12:11:00 Test Item Value Reference Range Interpretation Comments NA (test code = 139 mmol/L 135-145 5043844425) K (test code = 4.8 mmol/L 3.5-5 4678051689) CL (test code = 104 mmol/L 98-108 0230768274) CO2 TOTAL (test code = 26 mmol/L 23-31 7726029136) AGAP (test code = 2-16 9375956351) BUN (test code = 24 mg/dL 7-23 H 0641861834) GLUCOSE (test code = 266 mg/dL 70-110 H 8046167567) CREATININE (test code = 0.85 mg/dL 0.5-1.04 1974197577) CALCIUM (test code = 9.9 mg/dL 8.6-10.6 0393274040) eGFR Calculation mL/min/1.73m2 (Non-) (test code = 7918922514) eGFR Calculation mL/min/1.73m2 () (test code = 5970392035) MARY (test code = MARY) Association of [...] tests). Lab Interpretation Abnormal (test code = 50235-2) [facility] (ALB, T.PRO, BILI T, BU/BC, ALT, AST, ALK PHOS)2020-02-25 12:11:00 Test Item Value Reference Range Interpretation Comments TOTAL BILI (test code = 0214904285) 1.3 mg/dL 0.1-1.1 H BILI UNCON (test code = 8751337948) 1.2 mg/dL 0.1-1.1 H BILI CONJ (test code = 0722455353) 0.0 mg/dL 0-0.3 T PROTEIN (test code = 5979476365) 8.1 g/dL 6.3-8.2 ALBUMIN (test code = 6035546542) 3.9 g/dL 3.5-5 ALK PHOS (test code = 5470520952) 119 U/L 34-122 ALTv (test code = 1742-6) 27 U/L 5-35 AST(SGOT) (test code = 7920920665) 45 U/L 13-40 H Lab Interpretation (test code = Abnormal 49758-4) [facility] [id number] 12:11:00 Test Item Value Reference Range Interpretation Comments LIPASE (test code = 6550308909) 68 U/L 0-220 Lab Interpretation (test code = Normal 05768-8) [facility] (NA, K, CL, CO2, GLUCOSE, BUN, CREATININE, CA)2020-02-22 11:41:00 Test Item Value Reference Range Interpretation Comments NA (test code = 140 mmol/L 135-145 2120631615) K (test code = 3.5 mmol/L 3.5-5 3936425449) CL (test code = 101 mmol/L 98-108 1680178297) CO2 TOTAL (test code = 28 mmol/L 23-31 2714645881) AGAP (test code = 2-16 3834163963) BUN (test code = 24 mg/dL 7-23 H 5019508845) GLUCOSE (test code = 144 mg/dL 70-110 H 9670636567) CREATININE (test code = 0.97 mg/dL 0.5-1.04 5731416000) CALCIUM (test code = 9.5 mg/dL 8.6-10.6 9347680685) eGFR Calculation mL/min/1.73m2 (Non-) (test code = 0845928323) eGFR Calculation mL/min/1.73m2 () (test code = 9837107749) MARY (test code = MARY) Association of [...] tests). Lab Interpretation Abnormal (test code = 65986-1) [facility], [id number] 10:44:00 Test Item Value Reference Range Interpretation Comments AMMONIA (test code = 5280232951) 22 umol/L 9-33 Lab Interpretation (test code = Normal 60883-5) [facility] GLUCOSE (AUTOMATED)2020-02-22 01:15:00 Test Item Value Reference Range Interpretation Comments POCT GLU (test code = 5829917652) 178 mg/dL 70-110 H Lab Interpretation (test code = Abnormal 60333-9) [facility] GLUCOSE (AUTOMATED)2020-02-21 16:39:00 Test Item Value Reference Range Interpretation Comments POCT GLU (test code = 5944136862) 223 mg/dL 70-110 H Lab Interpretation (test code = Abnormal 84088-9) [facility], [id number] 15:10:00 Test Item Value Reference Range Interpretation Comments AMMONIA (test code = 5404320401) 30 umol/L 9-33 Lab Interpretation (test code = Normal 21896-9) [facility] GLUCOSE (AUTOMATED)2020-02-21 12:44:00 Test Item Value Reference Range Interpretation Comments POCT GLU (test code = 3678875856) 191 mg/dL 70-110 H Lab Interpretation (test code = Abnormal 87134-8) [facility] WITH [id number] 11:50:00 Test Item Value Reference Range Interpretation [...] RDW-SD (test code = 41.1 fL 39-49.9 72173-1) RDW-CV (test code = 13.1 % 12-15.5 788-0) PLT (test code = See_Comment L [Automated 777-3) message] The sy stem which generated this result transmitted reference range : 166 - 358 10*3/ ?L. The reference r glenn was not used to interpret this result as normal/abnormal . MPV (test code = 12.6 fL 9.5-12.9 15628-4) IPF % (test code = 5.2 % 1.3-7.7 Platelet count 8621465107) measured by fluorescence method. NRBC/100 WBC (test See_Comment [Automat ed code = 2838317465) message] The system which generated this result transmitted reference range : 0.0 - 10.0 /100 WBCs. The refer ence range was not u sed to interpret th is result as normal/abnormal . NRBC x10^3 (test code <0.01 See_Comment [Auto mated = 3592807778) message] The s ystem which generated this result transmitted reference range : 10*3/?L. The reference range was not used to interpret this result as normal/abnormal . GRAN MAT (NEUT) % 59.3 % (test code = 770-8) IMM GRAN % (test code 0.30 % = 6078859910) LYMPH % (test code = 22.5 % 736-9) MONO % (test code = 13.7 % 5905-5) EOS % (test code = 3.9 % 713-8) BASO % (test code = 0.3 % 706-2) GRAN MAT x10^3(ANC) 2.29 10*3/uL 1.88-7.09 (test code = 8889194345) IMM GRAN x10^3 (test <0.03 0-0.06 code = 1473808842) LYMPH x10^3 (test code 0.87 10*3/uL 1.32-3.29 L = 731-0) MONO x10^3 (test code 0.53 10*3/uL 0.33-0.92 = 742-7) EOS x10^3 (test code = 0.15 10*3/uL 0.03-0.39 711-2) BASO x10^3 (test code <0.03 0.01-0.07 = 704-7) PLT ESTIMATE (test Decreased Normal A code = 9317-9) Lab Interpretation Abnormal (test code = 55079-0) [facility] Metabolic Panel (NA, K, CL, CO2, GLUCOSE, BUN, CREATININE, CA)2020-02-21 11:23:00 Test Item Value Reference Range Interpretation Comments NA (test code = 138 mmol/L 135-145 7542309666) K (test code = 3.5 mmol/L 3.5-5 6150381753) CL (test code = 103 mmol/L 98-108 2905658555) CO2 TOTAL (test code = 27 mmol/L 23-31 8449510100) AGAP (test code = 2-16 7891403895) BUN (test code = 22 mg/dL 7-23 6180965499) GLUCOSE (test code = 189 mg/dL 70-110 H 9751486177) CREATININE (test code = 0.65 mg/dL 0.5-1.04 2595762269) CALCIUM (test code = 9.2 mg/dL 8.6-10.6 4688930166) eGFR Calculation mL/min/1.73m2 (Non-) (test code = 5298799716) eGFR Calculation mL/min/1.73m2 () (test code = 3187323070) MARY (test code = MARY) Association of [...] tests). Lab Interpretation Abnormal (test code = 64556-5) [facility]2020-02-21 01:41:00 Test Item Value Reference Range Interpretation Comments POCT GLU (test code = 3087021481) 196 mg/dL 70-110 H Lab Interpretation (test code = Abnormal 50584-8) [facility] DistrictGlycosylated Hemoglobin (A1C)2020-02-21 01:36:00 Test Item Value Reference [...] Indicated Lab Interpretation Abnormal (test code = 01619-4) [facility] DistrictMagnesium [id number] 01:32:00 Test Item Value Reference Range Interpretation Comments MAGNESIUM (test code = 4443624874) 1.6 mg/dL 1.7-2.4 L Lab Interpretation (test code = Abnormal 88180-4) [facility] DistrictLipid Panel (Total Cholesterol, Triglycerides, HDL) - [id number] 01:30:00 Test Item Value Reference Range Interpretation Comments CHOL (test code = 180 mg/dL 120-200 8294876403) HDL (test code = 45 mg/dL >50 L 4727557215) HDLC RATIO (test code = See_Comment [Au tomated message] 0456739705) The system [employer] generated this result transmit carlitos reference range : <=4.5. The refe rence range was not u sed to interpret th is result as normal/abnormal . TRIG (test code = 88 mg/dL 30-170 4548184071) LDL CHOL (test code = 117 mg/dL See_Comment [Auto mated message] 93516-3) The system [employer] generated this result transmit carlitos reference range : <=160. The refe rence range was not u sed to interpret th is result as normal/abnormal . VLDL (test code = 18 mg/dL 5-60 5338093070) Lab Interpretation (test Abnormal code = 13537-6) [facility] DistrictCORONAVIRUS COVID-19 [id number] 23:38:00 Test Item Value Reference Range Interpretation Comments SARS-CoV-2 (test code = Not Detected Not Detected 50920-5) MARY (test code = MARY) ID NOW COVID-19 Assay is an isothermal nucleic acid amplification test intended for the qualitative detection of nucleic acid from SARS-CoV-2 viral RNA in nasopharyngeal (MANAGER AGENCY) specimens. It is used under Emergency Use [...] indicated. Lab Interpretation Normal (test code = 12681-4) [facility] DistrictXR CHEST 2 [id number] 23:00:37Impression: No focal consolidation or pneumothorax. Small [...] structures are unremarkable. [facility], Radiant Results Inft - 02/20/2020 6:01 PM CDTXR CHEST 2 [...] reviewed this study and agree with the abovereport.[facility] DistrictURINALYSIS2020-04-06 22:53:00 Test Item Value Reference Range Interpretation Comments APPEARANCE (test code = Hazy Clear A 1457411316) COLOR (test code = Denita Yellow A 8538443460) PH (test code = 4.8-8.0 0790293488) SP GRAVITY (test code = 1.003-1.030 H 7862382762) GLU U QUAL (test code = 50 mg/dL Normal A 9368224045) BLOOD (test code = Negative Negative INTERFERE NCE FROM 4913418123) ASCORBIC ACID M AY CAUSE FALSE NEG ATIVE RESULT KETONES (test code = Negative Negative 1785997970) PROTEIN (test code = 30 mg/dL Negative A 2887-8) UROBILIN (test code = 4.0 mg/dL Normal A 2370540018) BILIRUBIN (test code = 2 mg/dL Negative A 0107768105) NITRITE (test code = Negative Negative 2170606080) LEUK SABA (test code = Negative Negative 1115329515) RBC/HPF (test code = <1 See_Comment [Autom ated message] 2900703457) The system [employer] generated this result transmitted ref erence range: 0 - 3 HP F. The reference range was not used to int erpret this result as normal/abnormal . WBC/HPF (test code = See_Comment H [Autom ated message] 0149784056) The system [employer] generated this result transmitted ref erence range: 0 - 5 HP F. The reference range was not used to int erpret this result as normal/abnormal . BACTERIA (test code = Few Negative A 9660640488) MUCOUS (test code = Marked Negative LPF A 9133813582) SQ EPITH (test code = HPF 8818179932) Ictotest (test code = Negative 7861895388) Lab Interpretation Abnormal (test code = 60193-9) [facility] DistrictTROPONIN [id number] 22:41:00 Test Item Value Reference Range Interpretation Comments TROPONIN I (test 0.010 ng/mL See_Comment [Automated code = 0535186331) message] The system which generated this result [...] ? Lab Interpretation Normal (test code = 31606-0) [facility] DistrictCT HEAD WO [id number] 22:40:19Addendum by Ronaldo Link MD on 02/20/2020 [...] The calvariumand central skull base are unremarkable. [facility], Radiant Results Inft User - 02/20/2020 [...] less likely focal hemorrhage. Attention onfollow-up is recommended.[facility] DistrictCOM. METABOLIC PANEL (55770)2020-02-20 22:30:00 Test Item Value Reference Range Interpretation Comments NA (test code = 139 mmol/L 135-145 3631989305) K (test code = 3.8 mmol/L 3.5-5 9640297312) CL (test code = 104 mmol/L 98-108 0542253702) CO2 TOTAL (test code = 27 mmol/L 23-31 9756427848) AGAP (test code = 2-16 8556385648) BUN (test code = 23 mg/dL 7-23 5121374927) GLUCOSE (test code = 244 mg/dL 70-110 H 0528014350) CREATININE (test code = 0.71 mg/dL 0.5-1.04 7064549325) TOTAL BILI (test code = 1.0 mg/dL 0.1-1.2 9499003895) CALCIUM (test code = 9.4 mg/dL 8.6-10.6 5171963191) T PROTEIN (test code = 7.3 g/dL 6.3-8.2 3863596010) ALBUMIN (test code = 3.4 g/dL 3.5-5 L 0548034652) ALK PHOS (test code = 101 U/L 34-122 6882809398) ALTv (test code = 30 U/L 5-35 1742-6) AST(SGOT) (test code = 76 U/L 13-40 H 9192163141) eGFR Calculation mL/min/1.73m2 (Non-) (test code = 6248979953) eGFR Calculation mL/min/1.73m2 () (test code = 6623588203) MARY (test code = MARY) Association of [...] tests). Lab Interpretation Abnormal (test code = 68055-4) [facility] DistrictLIPASE2020-04-06 22:30:00 Test Item Value Reference Range Interpretation Comments LIPASE (test code = 8435376750) 62 U/L 0-220 Lab Interpretation (test code = Normal 54438-4) [facility] DistrictAMMONIA, [id number] 22:29:00 Test Item Value Reference Range Interpretation Comments AMMONIA (test code = 2463773623) 48 umol/L 9-33 H Lab Interpretation (test code = Abnormal 64586-0) [facility] DistrictCBC WITH [id number] 22:19:00 Test Item Value Reference Range Interpretation Comments WBC (test code = See_Comment [Automated 3890-2) message] The sy stem which generated this result transmitted reference range : 4.30 - 11.10 10*3/?L. The reference range was not used to interpret this result as normal/abnormal . RBC (test code = See_Comment [Automated 209-8) message] The sy stem which generated this [...] RDW-SD (test code = 41.2 fL 39-49.9 04655-6) RDW-CV (test code = 13.1 % 12-15.5 788-0) PLT (test code = See_Comment L [Automated 567-3) message] The sy stem which generated this result transmitted reference range : 166 - 358 10*3/ ?L. The reference r glenn was not used to interpret this result as normal/abnormal . MPV (test code = 11.7 fL 9.5-12.9 59678-0) NRBC/100 WBC (test See_Comment [Automat ed code = 3596069166) message] The system which generated this result transmitted reference range : 0.0 - 10.0 /100 WBCs. The refer ence range was not u sed to interpret th is result as normal/abnormal . NRBC x10^3 (test code <0.01 See_Comment [Auto mated = 4604072675) message] The s ystem which generated this result transmitted reference range : 10*3/?L. The reference range was not used to interpret this result as normal/abnormal . GRAN MAT (NEUT) % 66.4 % (test code = 770-8) IMM GRAN % (test code 0.30 % = 5194136670) LYMPH % (test code = 17.6 % 736-9) MONO % (test code = 11.7 % 5905-5) EOS % (test code = 3.3 % 713-8) BASO % (test code = 0.7 % 706-2) GRAN MAT x10^3(ANC) 4.04 10*3/uL 1.88-7.09 (test code = 8687517567) IMM GRAN x10^3 (test <0.03 0-0.06 code = 0175572213) LYMPH x10^3 (test code 1.07 10*3/uL 1.32-3.29 L = 731-0) MONO x10^3 (test code 0.71 10*3/uL 0.33-0.92 = 742-7) EOS x10^3 (test code = 0.20 10*3/uL 0.03-0.39 711-2) BASO x10^3 (test code 0.04 10*3/uL 0.01-0.07 = 704-7) Lab Interpretation Abnormal (test code = 99903-1) [facility] DistrictANTI-MITOCHONDRIAL AB, REFLEX TO TITER 2019-09-28 07:59:00 Test Item Value Reference Range Interpretation Comments SCAN RESULT (test code = 7814922) RESPIRATORY PANEL [id number] 13:14:00 Test Item Value Reference Range Interpretation [...] decisions. This sample was tested at the [facility] using the Med fusion FilmArray Respiratory Panel. It is FDA cleared and has been verified and approved by the [facility] for clinical use on nasopharyngeal swab specimens.The performance of the FilmArrayRP has not been established in individuals who received influenza vaccine. Recent administration of a nasal influenza vaccine may cause false positive results for Influenza A and/orInfluenza B.POCT-GLUCOSE [id number] 13:03:00 Test Item Value Reference Range Interpretation Comments POC-GLUCOSE METER 258 mg/dL 70-110 H : TESTED A T [facility] 6720 (BEAKER) (test code = [facility], 1538) 86793: Sales Representative Printing/Techni bravo ID = [id number] for Yue Kennedy POCT-GLUCOSE [id number] 08:53:00 Test Item Value Reference Range Interpretation Comments POC-GLUCOSE METER 197 mg/dL 70-110 H : TESTED A T [facility] 67[address] (BEAKER) (test code = [facility], 1538) 52480: Sales Representative Printing/Techni bravo ID = [id number] for JOSE LUIS MIX POCT-GLUCOSE [id number] 23:16:00 Test Item Value Reference Range Interpretation Comments POC-GLUCOSE METER 246 mg/dL 70-110 H : TESTED A T [facility] 67[address] (BEAKER) (test code = [facility], 1538) 50655: Sales Representative Printing/Techni bravo ID = [id number] for GONZÁLEZ SIMS POCT-GLUCOSE [id number] 18:13:00 Test Item Value Reference Range Interpretation Comments POC-GLUCOSE METER 254 mg/dL 70-110 H : TESTED A T [facility] 67[address] (BEAKER) (test code = [facility], 1538) 33073: Sales Representative Printing/Techni bravo ID = [id number] for ST OJCIC, NADA POCT-GLUCOSE [id number] 13:25:00 Test Item Value Reference Range Interpretation Comments POC-GLUCOSE METER 201 mg/dL 70-110 H : TESTED A T [facility] 6720 (BEAKER) (test code = [facility], 1538) 41221: Sales Representative Printing/Techni bravo ID = [id number] for ST OJCIC, NADA POCT-GLUCOSE [id number] 08:22:00 Test Item Value Reference Range Interpretation Comments POC-GLUCOSE METER 184 mg/dL 70-110 H : TESTED A T [facility] 6720 (BEAKER) (test code = [facility], 1538) 82411: Sales Representative Printing/Techni bravo ID = [id number] for RILEY KNOX POCT-GLUCOSE [id number] 23:53:00 Test Item Value Reference Range Interpretation Comments POC-GLUCOSE METER 297 mg/dL 70-110 H : TESTED A T [facility] 6720 (BEAKER) (test code = [facility], 1538) 50879: Sales Representative Printing/Techni bravo ID = [id number] for MICHAEL CRAIG POCT-GLUCOSE [id number] 18:55:00 Test Item Value Reference Range Interpretation Comments POC-GLUCOSE METER 256 mg/dL 70-110 H : TESTED A T [facility] 6720 (BEAKER) (test code = [facility], [facility]8) 40670: Sales Representative Printing/Techni bravo ID = [id number] for DO BBINS, OFELIA POCT-GLUCOSE [id number] 18:49:00 Test Item Value Reference Range Interpretation Comments POC-GLUCOSE METER 213 mg/dL 70-110 H : TESTED A T [facility] 67[address] (BEAKER) (test code = [facility], 1538) 41831: Sales Representative Printing/Techni bravo ID = [id number] for DO BBINS, OFELIA POCT-GLUCOSE [id number] 18:44:00 Test Item Value Reference Range Interpretation Comments POC-GLUCOSE METER 216 mg/dL 70-110 H : TESTED A T [facility] 6720 (BEAKER) (test code = [facility], 1538) 44460: Sales Representative Printing/Techni bravo ID = [id number] for DO BBINS, OFELIA CBC W/PLT COUNT & AUTO [id number] 09:27:00 Test Item Value Reference Range Interpretation [...] PERCENT (BEAKER) (test code = 2801) POCT-GLUCOSE [id number] 00:33:00 Test Item Value Reference Range Interpretation Comments POC-GLUCOSE METER 330 mg/dL 70-110 H : Notified RN/MD: (SAIDA) (test code = TESTED AT [place] [address] 1538) [facility], [address]: Sales Representative Printing/Techni bravo ID = [id number] for Kathryn Hidalgo POCT-GLUCOSE [id number] 18:45:00 Test Item Value Reference Range Interpretation Comments POC-GLUCOSE METER 335 mg/dL 70-110 H : Notified RN/MD: (SAIDA) (test code = TESTED AT [facility] 6720 1538) [facility], [address]: Sales Representative Printing/Techni bravo ID = [id number] for JASE TYLER BLOOD GAS, [id number] 15:34:00 Test Item Value Reference Range Interpretation [...] has been upright for 15 minutes.POCT- GLUCOSE [id number] 10:59:00 Test Item Value Reference Range Interpretation Comments POC-GLUCOSE METER 185 mg/dL 70-110 H : TESTED A T [facility] 67[address] (BEAKER) (test code = [facility], 1538) 47600: Sales Representative Printing/Techni bravo ID = [id number] for MARIA GUADALUPE COX POCT-GLUCOSE [id number] 07:44:00 Test Item Value Reference Range Interpretation Comments POC-GLUCOSE METER 235 mg/dL 70-110 H : TESTED A T [facility] 6720 (BEAKER) (test code = [facility], 1538) 64381: Sales Representative Printing/Techni bravo ID = [id number] for MAYO TWYLA RUSSO BILIRUBIN, [id number] 06:38:00 Test Item Value Reference Range Interpretation Comments BILIRUBIN DIRECT 0.3 mg/dL 0.1-0.5 [address] carlos (BEAKER) (test code = hemoly zed 706) POCT-GLUCOSE [id number] 23:23:00 Test Item Value Reference Range Interpretation Comments POC-GLUCOSE METER 367 mg/dL 70-110 H : TESTED A T [facility] 6720 (BEAKER) (test code = [facility], 1538) 02767: Sales Representative Printing/Techni braov ID = [id number] for MICHAEL CRAIG POCT-GLUCOSE [id number] 18:06:00 Test Item Value Reference Range Interpretation Comments POC-GLUCOSE METER 296 mg/dL 70-110 H : TESTED A T [facility] 6720 (BEAKER) (test code = [facility], 1538) 38359: Sales Representative Printing/Techni rbavo ID = [id number] for FLORENCIO CORDOBA POCT-GLUCOSE [id number] 13:06:00 Test Item Value Reference Range Interpretation Comments POC-GLUCOSE METER 234 mg/dL 70-110 H : TESTED A T [facility] 6720 (BEAKER) (test code = [facility], 1538) 95685: Sales Representative Printing/Techni bravo ID = [id number] for TWYLA HAWKINS CT, ABDOMEN, [id number] 12:02:00Please scan with liver protocolFINAL REPORT TECHNIQUE: [...] MDReport Verified Date/Time: 09/16/2019 12:02:29 Reading Location: [address] Body Reading Room POCT-GLUCOSE METER 2019-09-16 10:32:00 Test Item Value Reference Range Interpretation Comments POC-GLUCOSE METER 241 mg/dL 70-110 H : TESTED A T [facility] 67[address] (BEAKER) (test code = [facility] [place] [facility], 1538) 60694: Sales Representative Printing/Techni bravo ID = [id number] for NAVI FLORENCIO VÁSQUEZ HEPATIC FUNCTION [id number] 07:48:00 Test Item Value Reference Range Interpretation [...] = 20 U/L 6-55 347) BASIC METABOLIC [id number] 07:48:00 Test Item Value Reference Range Interpretation [...] NOT APPLICABLE FOR DIALYSIS PATIEN TS. PROTHROMBIN [id number] 07:16:00 Test Item Value Reference Range Interpretation [...] 2.5-3.5 for patients wiht mechanical heart valves.POCT-GLUCOSE [id number] 06:57:00 Test Item Value Reference Range Interpretation Comments POC-GLUCOSE METER 241 mg/dL 70-110 H : TESTED Bette T [facility] 67[address] (BEAKER) (test code = [facility], 1538) 47653: Sales Representative Printing/Techni bravo ID = [id number] for AL BETH CBC W/PLT COUNT & AUTO [id number] 06:53:00 Test Item Value Reference Range Interpretation [...] PERCENT (BEAKER) (test code = 2801) POCT-GLUCOSE [id number] 17:32:00 Test Item Value Reference Range Interpretation Comments POC-GLUCOSE METER 259 mg/dL 70-110 H : TESTED A T [facility] 67[address] (SAIDA) (test code = [facility], 1538) 37342: Sales Representative Printing/Techni bravo ID = [id number] for TWYLA HAWKINS POCT-GLUCOSE [id number] 15:11:00 Test Item Value Reference Range Interpretation Comments POC-GLUCOSE METER 200 mg/dL 70-110 H : Will Rep eat Test: (SAIDA) (test code = Notifi ed RN/MD: Verify 1538) w/ Lab Draw: TE [facility] [address] [facility], 770 30: Sales Representative Printing/Techni bravo ID = [id number] for NG BARBARA, DANNY HEMOGLOBIN [id number] 13:55:00 Test Item Value Reference Range Interpretation Comments HEMOGLOBIN A1C (SAIDA) (test code = 9.4 % 4.3-6.1 H 368) RAD, CHEST, 1 VIEW, NON [id number] 13:32:00Reason for exam:->SOBShould this be performed at the bedside?->YesFINAL REPORT INDICATION: SOB COMPARISON: None TECHNIQUE: Single frontal view ofthe chest. FINDINGS: Lungs and pleura: Clear lungs. No effusion.Heart and mediastinum: Normal heart size. Unremarkable mediastinal contours.Osseous structures: No acute abnormality.Other: None. IMPRESSION: No acute intrathoracic abnormality. Signed: Mildred Sampson MDReport Verified Date/Time: 09/15/2019 13:32:27 Reading Location: [facility] Radiology Reading Room POCT-GLUCOSE [id number] 12:11:00 Test Item Value Reference Range Interpretation Comments POC-GLUCOSE METER 227 mg/dL 70-110 H : [facility] (BESHAHRAM) (test code = [facility], 1538) [address]: Sales Representative Printing/Techni bravo ID = [id number] for MAXX EDWARDS (CELLAVISION MANUAL DIFF)2019-09-15 09:13:00 [...] 3438) Received comment: User comments: Slide comments:POCT-GLUCOSE [id number] 08:34:00 Test Item Value Reference Range Interpretation Comments POC-GLUCOSE METER 219 mg/dL 70-110 H : TESTED A T [facility] 6720 (BEAKER) (test code = [place] [address], 1538) [address]: Sales Representative Printing/Techni bravo ID = [id number] for Or January arana [id number] 07:30:00 Test Item Value Reference Range Interpretation Comments FERRITIN (BEAKER) (test code = 361) 11 ng/mL 5-275 HEPATITIS A ANTIBODY, [id number] 06:17:00 Test Item Value Reference Range Interpretation Comments HEPATITIS A IGG ANTIBODY (BEAKER) Reactive Nonreactive A (test code = 2797) CBC W/PLT COUNT & AUTO [id number] 05:50:00 Test Item Value Reference Range Interpretation [...] (BEAKER) (test code = 413) COMPREHENSIVE METABOLIC [id number] 05:49:00 Test Item Value Reference Range Interpretation [...] FOR DIALYSIS PATIEN TS. HEPATITIS B SURFACE [id number] 05:48:00 Test Item Value Reference Range Interpretation Comments HEPATITIS B SURFACE ANTIBODY < mIU/mL <8.0 (BEAKER) (test code = 647) HEPATIC FUNCTION [id number] 05:44:00 Test Item Value Reference Range Interpretation [...] 0-100 H (test code = 700) PROTHROMBIN [id number] 05:23:00 Test Item Value Reference Range Interpretation [...] 2.5-3.5 for patients wiht mechanical heart valves.POCT-GLUCOSE [id number] 21:42:00 Test Item Value Reference Range Interpretation Comments POC-GLUCOSE METER 286 mg/dL 70-110 H : TESTED A T [facility] 6720 (BEAKER) (test code = [place] [address], 1538) [address]: Sales Representative Printing/Techni bravo ID = [id number] for NICHOLE ELKINS POCT-GLUCOSE [id number] 19:12:00 Test Item Value Reference Range Interpretation Comments POC-GLUCOSE METER 219 mg/dL 70-110 H : TESTED A T [facility] 6720 (BEAKER) (test code = [place] [address], 1538) [address]: Sales Representative Printing/Techni bravo ID = [id number] for RUFINO HIGGINS CREATININE, RANDOM [id number] 19:07:00 Test Item Value Reference Range Interpretation Comments CREATININE URINE (BEAKER) (test 63.7 mg/dL code = 375) Reference Range: No NormalsSODIUM, RANDOM [id number] 19:07:00 Test Item Value Reference Range Interpretation Comments SODIUM URINE (BEAKER) (test code = 66 meq/L 243) Reference Range: No NormalsURINALYSIS W/ REFLEX URINE [id number] 18:51:00 Test Item Value Reference Range Interpretation [...] 173 mg/dL 22-293 (test code = 638) [id number] 17:00:00 Test Item Value Reference Range Interpretation Comments ALPHA-1 ANTITRYPSIN (BEAKER) 104.20 mg/dL 90.00-200.00 (test code = 502) [id number] 15:44:00 Test Item Value Reference Range Interpretation Comments FERRITIN (BEAKER) (test code = 361) 4 ng/mL 5-275 L HEMOGLOBIN AND [id number] 14:54:00 Test Item Value Reference Range Interpretation [...] mg/dL 540-1,822 (test code = 427) POCT-GLUCOSE [id number] 13:43:00 Test Item Value Reference Range Interpretation Comments POC-GLUCOSE METER 175 mg/dL 70-110 H : Notified RN/MD: TESTED (BEAKER) (test code AT [facility] [address] = 1538) [facility], [facility] 30: Sales Representative Printing/Techni bravo ID = [id number] for MOOD YTULIOELL POCT-GLUCOSE [id number] 09:14:00 Test Item Value Reference Range Interpretation Comments POC-GLUCOSE METER 200 mg/dL 70-110 H : Notified RN/MD: TESTED (BEAKER) (test code AT [facility] [address] = 1538) [facility], [facility] 30: Sales Representative Printing/Techni bravo ID = [id number] for LUDWIN CARPIO HEPATITIS PANEL, [id number] 03:41:00 Test Item Value Reference Range Interpretation Comments HEPATITIS A IGM ANTIBODY (BEAKER) Nonreactive Nonreactive (test code = 498) HEPATITIS B CORE IGM ANTIBODY Nonreactive Nonreactive (BEAKER) (test code = 645) HEPATITIS C ANTIBODY (BEAKER) Nonreactive Nonreactive (test code = 367) HEPATITIS B SURFACE ANTIGEN (2) Nonreactive Nonreactive (BEAKER) (test code = 2585) TROPONIN [id number] 03:25:00 Test Item Value Reference Range Interpretation [...] H (test code = 700) BASIC METABOLIC [id number] 03:12:00 Test Item Value Reference Range Interpretation [...] APPLICABLE FOR DIALYSIS PATIEN TS. HEPATIC FUNCTION [id number] 03:12:00 Test Item Value Reference Range Interpretation [...] slightly (test code = 347) hemolyzed PROTHROMBIN [id number] 03:09:00 Test Item Value Reference Range Interpretation [...] mechanical heart valves.CBC W/PLT COUNT & AUTO [id number] 02:56:00 Test Item Value Reference Range Interpretation [...] Notes Date/Time Note Provider Source 2021-04-05 19:55:00-00:00 [id number] [facility] [address] [place] [address] PATIENT NAME: RENA SINCLAIR ADMIT DATE: 02/15/21 ACCOUNT NO: [id number] ROOM NO: Z.620 AGE: 70 REPORT TYPE: [...] is a 72-year-old fe male referred from [facility] with severe anemia. She has not had [...] disease found. Plan was to continue i melquiades supplementation indefinitely and maintain he r medication program for cirrhosis and hypertension. She has limited ambulation. Return to primary c are physician for long-term management and gastroenterology for followup. Dictated By: Briana Walden MD WT: DS:ELIZABET/FARZAD/VAISHALI Conf#: [id number]/DID#: [id number] Authenticated and Edited by Briana muñiz MD On 04/06/21 7:40:15 PM at 1943 PATIENT NAME: RENA SINCLAIR ACCOUNT #: [id number] 2021-02-18 10:56:00-00:00 [facility] ([facility] Gastroenterology Progress Note REPORT#:[id number] REPORT STATUS: Signed DATE:02/18/21 TIME: 1056 PATIENT: RENA SINCLAIR UNIT #: [id number] [facility] AGE: 70 SEX: F ATTEND: Felicita Walden MD ADM AUTHOR: Mason Ward MD * ALL edits or amendments must be made on the [employer]/computer document * Subjective HPI: Interval hx: Scheduled for paracentesis today CONSULTING PHYSICIAN: Mason Ward MD REASON FOR CONSULTATION: Gastrointestinal bleed. HISTORY OF PRESENT ILLNESS: The patient is a 70- year-old female who was transferred from [facility] in [facility] in [place] for severe anemia. The patient had been [...] some ongoing bleeding. She was transferred to [facility]. She also had a CAT [...] normal in spection, painless range of motion Neuro/HOME MANAGER: alert, oriented X 3 Skin: dry, intact [...] Mason Ward MD 02/27/21 at 1820 RPT #:[id number] END OF REPORT 2021-02-18 09:33:00-00:00 [facility] ([facility]) Brief Op Note REPORT#:[id number] REPORT STATUS: Signed DATE:02/18/21 TIME: 932 PATIENT: RENA SINCLAIR UNIT #: [id number] ROOM/BED: [address] : 50 AGE: 70 SEX: F ATTEND: Felicita Walden MD ADM AUTHOR: Trudi Dhillon * ALL edits or amendments must be made on the [employer]/computer document * Op/Inv Proc Note - Brief Pre-procedure diagnosis: Ascites Post-procedure diagnosis: same as pre procedure dx Procedures performed: Paracentesis Primary Surgeon: Trudi Dhillon PA-C Client Service Professional(s): none Anesthesia: local anesthesia Findings: Successful ultrasound guided paracentesis, removed 10.1L of clear yellow fluid. 75g of 25% albumin was given . Pt tolerated procedure well. More detailed report in PACS. Complications: none Estimated blood loss in ml's: none Specimens removed/altered: none Disposition: return to floor, stable Electronically Signed by Trudi Dhillon on 0 02/18/21 at 1002 at 1427 RPT #:[id number] END OF REPORT 2021-02-18 09:33:00-00:00 [facility]) Brief Op Note REPORT#:[id number] REPORT STATUS: Signed DATE:02/18/21 TIME: 932 PATIENT: RENA SINCLAIR UNIT #: [id number] ROOM/BED: [address] : 50 AGE: 70 SEX: F ATTEND: Felicita Walden MD ADM AUTHOR: Trudi Dhillon * ALL edits or amendments must be made on the el [employer]/computer document * Op/Inv Proc Note - Brief Pre-procedure diagnosis: Ascites Post-procedure diagnosis: same as pre procedure dx Procedures performed: Paracentesis Primary Surgeon: Trudi Dhillon PA-C Client Service Professional(s): none Anesthesia: local anesthesia Findings: Successful ultrasound guided paracentesis, removed 10.1L of clear yellow fluid. 75g of 25% albumin was given . Pt tolerated procedure well. More detailed report in PACS. Complications: none Estimated blood loss in ml's: none Specimens removed/altered: none Disposition: return to floor, stable Electronically Signed by Trudi Dhillon on 0 02/18/21 at 1002 RPT #:[id number] END OF REPORT 2021-02-17 23:52:00-00:00 [facility]) Internal Medicine Prog. Note REPORT#:[id number] REPORT STATUS: Signed DATE:02/17/21 TIME: 2351 PATIENT: RENA SINCLAIR UNIT #: [id number] ROOM/BED: [address] : 50 AGE: 70 SEX: F ATTEND: Felicita Walden MD ADM AUTHOR: Campbell Posey MD * ALL edits or amendments must be made on the [employer]/computer document * Subjective Patient reports: abdominal pain [...] normal in spection, painless range of motion Neuro/HOME MANAGER: alert, no motor deficits Skin: no rash [...] Campbell Posey MD on at 1654 RPT #:[id number] END OF REPORT 2021-02-17 14:31:00-00:00 [facility] ([facility]) Gastroenterology Progress Note REPORT#:[id number] REPORT STATUS: Signed DATE:02/17/21 TIME: 1431 PATIENT: RENA SINCLAIR UNIT #: [id number] ROOM/BED: [address] : 50 AGE: 70 SEX: F ATTEND: Andrea Walden MD ADM AUTHOR: Mason Ward MD * ALL edits or amendments must be made on the el ectronic/computer document * Subjective HPI: Interval hx: Scheduled for paracentesis am CONSULTING PHYSICIAN: Mason Ward MD REASON FOR CONSULTATION: Gastrointestinal bleed. HISTORY OF PRESENT ILLNESS: The patient is a 70- year-old female who was transferred from [facility] in [facility] in [place] for severe anemia. The patient had been [...] some ongoing bleeding. She was transferred to [facility]. She also had a CAT [...] normal in spection, painless range of motion Neuro/HOME MANAGER: alert, oriented X 3 Skin: dry, intact [...] Ward MD o n 02/17/21 at 1526 [facility] #:[id number] END OF REPORT 2021-02-16 12:49:00-00:00 [facility] Internal Medicine Prog. Note REPORT#:[id number] REPORT STATUS: Signed DATE:02/16/21 TIME: 1249 PATIENT: RENA SINCLAIR UNIT #: [id number] ROOM/BED: [address] : 50 AGE: 70 SEX: F ATTEND: Felicita Walden MD ADM AUTHOR: Campbell Posey MD * ALL edits or amendments must be made on the [employer] document * Subjective Patient reports: SOB due to large abdomen Objective General VS/I O: Vital Signs Date Temp Pulse Resp B/P B/P Mean Pulse Ox FiO2 02/15-02/16 97.5-99.7 57-85 11-24 106-172/48-83 67.4-103.7 94-100 21 Last Documented: Result Date Time Pulse Ox 98 04/ 1133 B/P 145/83 02/16 1133 B/P Mean 103.7 02/16 1133 Temp 98.8 02/16 1133 Pulse 61 04/ 1133 Resp 14 02/16 1133 O2 Delivery Room air 02/15 2344 FiO2 21 02/15 2003 O2 Flow Rate 2 02/15 1418 24 hour I O ending at 0700: 02/16 0700 04 1900 Intake Total 290.00 Output Total Balance [...] normal in spection, painless range of motion Neuro/HOME MANAGER: alert, no motor deficits Skin: no rash Lymphatics: no lymphadenopathy Results Findings/Data: Laboratory Tests 02/17/21 0538: [Embedded Image Not Available] Laboratory Tests 02/17 02/17 02/16 0736 0538 1 Chemistry Sodium (137 - 145 MMOL/L) 136 [...] Campbell Posey MD on at 1653 RPT #:[id number] END OF REPORT 2021-02-16 10:56:00-00:00 [facility] ([facility]) Gastroenterology Progress Note REPORT#:[id number] REPORT STATUS: Signed DATE:02/16/21 TIME: 1056 PATIENT: RENA SINCLAIR UNIT #: [id number] ROOM/BED: [address] : 50 AGE: 70 SEX: F ATTEND: Felicita Walden MD ADM AUTHOR: Mason Ward MD * ALL edits or amendments must be made on the [employer]/computer document * Subjective HPI: Interval hx: EGD and colonoscopy done yesterday and scehduled for paracentesis CONSULTING PHYSICIAN: Mason Ward MD REASON FOR CONSULTATION: Gastrointestinal bleed. HISTORY OF PRESENT ILLNESS: The patient is a 70- year-old female who was transferred from [facility] in [facility] in [place] for severe anemia. The patient had been [...] some ongoing bleeding. She was transferred to [facility]. She also had a CAT [...] Result Date Time Pulse Ox 98 02/16 811 B/P 154/72 02/16 08 B/P Mean 99.1 02/16 08 Temp 37.6 02/16 08 Pulse 74 02/16 0811 Resp 11 02/16 08 O2 Delivery Room air 02/15 2344 FiO2 [...] normal in spection, painless range of motion Neuro/HOME MANAGER: alert, oriented X 3 Skin: dry, intact Lymphatics: axilla normal, inguinal normal, neck normal, no lymphadenopathy Diagnosis, Assessment Plan Problem List/A P: 1. Severe anemia 2. Cirrhosis 3. Ascites Free Text A P: Severe anemia; No evidence of gi bleed Likely due to multiple factors ,including seques tration Ascites: schedueld for paracentesis Cirrhosis; stable Electronically Signed by Mason Wadr MD 02/16/21 at 1342 RPT #:[id number] END OF REPORT 2021-02-15 20:31:00-00:00 [id number] [facility] [address] [place] [address] PATIENT NAME: RENA SINCLAIR ADMIT DATE: 02/15/21 ACCOUNT NO: [id number] ROOM NO: Z.620 AGE: 70 REPORT TYPE: CONSULTATION REPORT SEX: F ADMITTING PHYSICIAN:Briana Walden MD ATTENDING PHYSICIAN:Briana Walden MD CONSULTATION DATE: CONSULTING PHYSICIAN: Mason Ward MD REASON FOR CONSULTATION: Gastrointestinal bleed. HISTORY OF PRESENT ILLNESS: The patient is a 70- year-old female who was transferred from [facility] in [facility] in [place] for severe anemia. The patient had been [...] some ongoing bleeding. She was transferred to [facility]. She also had a CAT [...] 1.4. PATIENT NAME: RENA SINCLAIR ACCOUNT #: [id number] ASSESSMENT AND PLAN: 1. The patient is [...] By: Mason Ward MD WT: CON:ELIZABET/DMITRIY/NTS Conf#: [id number]/DID#: [id number] Authenticated by Mason Ward MD On 03/17 08:28:13 PM at 2028 PATIENT NAME: RENA SINCLAIR ACCOUNT #: [id number] 2021-02-15 19:57:00-00:00 [facility] ([facility]) DT History Physical REPORT#:[id number] REPORT STATUS: Signed DATE:02/15/21 TIME: 1956 PATIENT: RENA SINCLAIR UNIT #: [id number] ROOM/BED: [address] : 50 AGE: 70 SEX: F ATTEND: Felicita Walden MD ADM AUTHOR: Briana Walden MD * ALL edits or amendments must be made on the [employer]/computer document * History Physical History Physical Patient [...] emergenc y department at an outside facility ([facility]). They do not have GI on-call therefore the patient was transferred to us.[facility]. Subjective: [] Referred for higher level of [...] F low FiO2 Mean Ox Delivery Rate 04/02 1928 97.9 65 18 148/54 85.2 99 [...] 73 14 154/68 100 Nasal 2 cannula 04/02 1300 97.9 57 18 142/52 100 Room air 04/02 1134 97.9 62 18 126/64 84 98 [...] % (Auto) (14 - 44 %) 15.1 [place] % (Auto) (4 - 13 %) 13.9 H Eos % (Auto) (0 - 6 %) 1.9 Baso % (Auto) (0 - 2 %) 0.6 Neut # (Auto) (2.0 - 7.6 K/mm3) 2.16 Lymph # (Auto) (1.0 - 3.8 K/mm3) 0.48 L [place] # (Auto) (0.1 - 0.8 K/mm3) 0.44 [...] Status Admin Aspirin 81 MG DAILY 02/16 900 AC PO 03/18 901 Atorvastatin Calcium 10 MG DAILY 02/16 900 AC PO 03/18 901 Furosemide 40 MG DAILY 02/16 900 AC PO 03/18 901 Metoprolol Tartrate 100 MG DAILY 02/16 900 AC PO 03/18 901 Rifaximin 550 MG DAILY 02/16 900 AC PO 02/23 901 Spironolactone 50 MG DAILY 02/16 900 AC PO 03/18 901 Pantoprazole 40 MG AC BK 02/16 0730 AC PO 03/18 731 Albuterol Sulfate 2.5 MG RTQ4H PRN PRN [...] pending Electronically Signed by Briana Walden MD 02/15/21 at 2008 RPT #:[id number] END OF REPORT 2021-02-15 13:43:00-00:00 [id number] [place] [address] PATIENT NAME: RENA SINCLAIR ADMIT DATE: 02/15/21 ACCOUNT NO: [id number] ROOM NO: Z620 AGE: 70 REPORT TYPE: ELECTROCARDIOGRAM SEX: F ADMITTING PHYSICIAN:Briana Walden MD ATTENDING PHYSICIAN:Briana Walden MD Order: [id number] Test Reason : PREOP Test Date/Time Stamp: [...] PATIENT NAME: RENA SINCLAIR ACCOUNT #: [id number] 2021-02-15 13:28:00-00:00 [id number] [facility] [address] [place] [address] PATIENT NAME: RENA SINCLAIR ADMIT DATE: 0 02/15/21 ACCOUNT NO: [id number] ROOM NO: [facility] AGE: 70 REPORT TYPE: ENDOSCOPY REPORT SEX: [...] MD, Amber cazares RN (Nurse), Erika Parham Lens And Frames Prescription Clerk (Lens And Frames Prescription Clerk) Referring MD: Self Referred Medicines: Monitored Anesthesia Care Complications: No immediate complications. Procedure: Pre-Anesthesia Assessment: - Prior to the procedure, a History and Physica l was performed, and patient medications and allergie s were reviewed. The patient's tolerance of previous a nesthesia was also reviewed. The risks and benefits of th e procedure and the sedation options and risks w ere discussed with the patient. All questions were answered, and informed consent was obtained. Prior Antico agulants: The patient has taken no previous anticoagulant or antiplatelet agents. ASA Grade Assessment: III - A patient with severe systemic disease. After re viewing the risks and benefits, the patient was deemed in satisfactory condition to undergo the procedure . After obtaining informed consent, the endoscope was passed under direct vision. Throughout the proc edure, the patient's blood pressure, pulse, and oxyge n saturations were monitored continuously. The En doscope was introduced through the mouth, and advanced to the second part of duodenum. The Endoscope was intr oduced through the mouth, and advanced to the second p art of duodenum. The upper GI endoscopy was accomplish ed without difficulty. The patient tolerated the p rocedure well. PATIENT NAME: RENA SINCLAIR ACCOUNT #: [id number] Findings: The examined esophagus was normal. Moderate [...] - COLONOSCOPY Procedure Code(s): --- Professional --- 58879, Esophagogastroduodenoscopy, flexible, t ransoral; diagnostic, including collection of specimen(s) by brushing or washing, when performed (separate p rocedure) Diagnosis Code(s): --- Professional --- K76.6, Portal hypertension K31.89, Other diseases of stomach and duodenum K31.7, Polyp of stomach and duodenum D50.9, Iron deficiency anemia, unspecified CPT copyright 2018 [employer]. All rights reserved. The codes documented in this report are prelimin james and upon feed grinder review may be revised to meet current compliance requiremen ts. Mason Ward MD Mason Ward MD 02/15/2021 2:05:58 PM This report has been signed electronically. Number of Addenda: 0 Note Initiated On: 02/15/2021 1:28 PM Procedure Date: 02/15/2021 1:28:03 PM Estimated Blood Loss: Estimated blood loss: none. [address] [place] [address] Provation {[id number]}.pdf ProVation FT PDF at 1406 PATIENT NAME: RENA SINCLAIR ACCOUNT #: [id number] 2021-02-15 13:27:00-00:00 [id number] [place] [address] PATIENT NAME: RENA SINCLAIR ADMIT DATE: 02/15/21 ACCOUNT NO: [id number] ROOM NO: [facility] AGE: 70 REPORT TYPE: ENDOSCOPY REPORT SEX: [...] MD, Amber cazares RN (Nurse), Erika Parham, Lens And Frames Prescription Clerk (Lens And Frames Prescription Clerk) Referring MD: Self Referred Medicines: Monitored Anesthesia [...] After I obtained informed consent, the scope w as passed under direct vision. Throughout the procedure, the patient's blood pressure, pulse, and oxygen sat urations were monitored continuously. The Colonoscope wa s introduced through the anus and advanced to the cecum, identified by the appendiceal orifice, IC valv e and transillumination. The colonoscopy was performe d without difficulty. The patient tolerated the procedure well. The quality of the bowel preparation was inadeq uate. Findings: PATIENT NAME: RENA SINCLAIR ACCOUNT #: [id number] There is no endoscopic evidence of bleeding, ma ss, stenosis, stricture, ulcerations or angiodysplasia in the entire col on. Impression: - Preparation of the colon was inade quate. - No specimens collected. Recommendation: - No evidence of active gi bleed resume diet iron therapy Procedure Code(s): --- Professional --- 88042, Colonoscopy, flexible; diagnostic, inclu ding collection of specimen(s) by brushing or washi ng, when performed (separate procedure) Diagnosis Code(s): --- Professional --- D50.9, Iron deficiency anemia, unspecified CPT copyright 2018 [employer]. All rights reserved. The codes documented in this report are prelimin james and upon feed grinder review may be revised to meet current compliance requiremen ts. Mason Ward MD Mason Ward MD 02/15/2021 2:13:28 PM This report has been signed electronically. Number of Addenda: 0 Note Initiated On: 02/15/2021 1:27 PM Procedure Date: 02/15/2021 1:27:19 PM Estimated Blood Loss: Estimated blood loss: none. [address] [place] [address] Provation {[id number]}.pdf ProVation FT PDF at 1413 PATIENT NAME: RENA SINCLAIR ACCOUNT #: [id number] 2021-02-15 11:43:00-00:00 [facility] ([facility]) EMERGENCY PROVIDER REPORT REPORT#:[id number] REPORT STATUS: Signed DATE:02/15/21 TIME: 1143 PATIENT: RENA SINCLAIR UNIT #: [id number] ROOM/BED: [facility] AGE: 70 SEX: F PCP PHYS: DOES_NOT KNOW SERVICE AUTHOR: Finesse Hamilton MD LOCATION: [facility] [place] * ALL edits or amendments must be made on the el [employer]/computer document * HPI-General Illness Free Text HPI [...] emergenc y department at an outside facility ([facility]). They do not have GI on-call therefore [...] it was negative for blood. The pat yordy denies any previous history of GI bleeding. She states that that her hemoglobin was low at one point years ago after she montoya d had a bilateral mastectomy. The patient does have some mild left lower quadrant abdominal discomfo rt. CT abdomen pelvis without contrast (GFR=37) was perfor med at their facility just demonstrated large volume ascites primarily. General Initial Greet Date/Time 02/15/21 113 Presentation Chief Complaint __ (severe anemia) Hx [...] B/P 126/64 02/15 1134 B/P Mean 84 02/15 1134 O2 Delivery Room air 02/15 1134 Temp 36.6 02/15 1134 Pulse 62 02/15 1134 Resp 18 02/15 113 Last Documented: Result Date Time Pulse Ox 98 02/15 1134 B/P 126/64 02/15 1134 B/P Mean 84 02/15 1134 O2 Delivery Room air 02/15 113 Temp 36.6 02/15 1134 Pulse 62 02/15 1134 Resp 18 02/15 113 Review of Vital Signs Reviewed Interpretation Diagnostics Lab Results Interpretation Results Laboratory Tests 02/15/21 1200: [Embedded Image Not Available] Laboratory Tests: 02/15 1200 Chemistry Sodium (137 [...] % (Auto) (14 - 44 %) 15.1 [place] % (Auto) (4 - 13 %) 13.9 H Eos % (Auto) (0 - 6 %) 1.9 Baso % (Auto) (0 - 2 %) 0.6 Neut # (Auto) (2.0 - 7.6 K/mm3) 2.16 Lymph # (Auto) (1.0 - 3.8 K/mm3) 0.48 L [place] # (Auto) (0.1 - 0.8 K/mm3) 0.44 [...] 1134 Pulse 62 04/02 1134 Resp 18 04/ 1134 All vital signs available at the [...] 35 Services Performed Patient management by Nemesio regaaldo spent at bedside, Reviewing test results, Reviewing imaging, Discussing lavern ent care, Documentation in record, Time with fam/surrogate Separately billable procedures excluded from nemesio henry. Patient was critically ill due to: severe anemia My treatment and management were: Discussions with multiple medical providers, jc nicole pt response to tx, inputting admitting orders Electronically Signed by Finesse Hamilton MD on 01/06 at 1659 RPT #:[id number] END OF REPORT
[2023-06-14 09:50] LABS: Absolute Lymphocytes (CBC) 0.2 K/uL (0.7-4.9); MCV 88.7 fL (80-100); MPV 8.7 fL (7.6-11.3); RBC Red Blood Cell Count 1.93 M/uL (3.86-4.86)
[2023-06-14 09:53] LABS: Hematocrit 17.1 % (36.0-45.0)
[2023-06-14 09:56] LABS: Potassium 4.8 mEq/L (3.5-5.1)
[2023-06-14] MEDS ORDERED: NA CHLORIDE 0.9% 250 ML ONE ×2 (10:43→12:53)
[2023-06-14 11:21] LABS: Anisocytosis 1+; Blood Morphology Comment NOTED (NOT SEEN); Hypochromasia 2+; Platelet Estimate DECR; White Blood Cell Scan OK (OK)
[2023-06-14 11:22] LABS: ACANTHOCYTE FEW; Ovalocytes 1+; Poikilocytosis 2+; Teardrop Cell 1+
--- NOTE | 2023-06-14 14:53 | EDPHYS ---
Physician Documentation [facility] [place], [place] Name: Rena Burch Age: 72 yrs Sex: Female : 1950 Arrival Date: 06/14/2023 Time: 09:01 Bed 6 Private MD: ED Physician Boogie Archer HPI: 06/14 13:46 This 72 yrs old Female presents to ER via Ambulatory with complaints of Blood ms3 tranfusion. 13:46 72-year-old female with past medical history of COPD, diabetes, Rhodes, hypertension, ms3 GAVE presents to the emergency department for low hemoglobin. Patient's labs were drawn yesterday at [facility] and her hemoglobin was found to be 5.9. Patient's daughter states patient has required multiple blood transfusions with blood transfusions with the latest transfusions in February and on the first.. Historical: - Allergies: 09:16 No Known Allergies; hb - PMHx: 09:16 COPD; Diabetes - IDDM; fatty liver; Hypertension; Paracentesis; Psoriatic Arthritis; hb - Immunization history:: Adult Immunizations up to date. - Social history:: Smoking status: Patient denies any tobacco usage or history of. Patient/guardian denies using alcohol. ROS: 13:46 Constitutional: Negative for fever, and chills. Neck: Negative for injury, pain, and ms3 swelling, Cardiovascular: Negative for chest pain, and palpitations. Respiratory: Negative for shortness of breath, cough, wheezing, and pleuritic chest pain, Abdomen/GI: Negative for abdominal pain, nausea, vomiting, diarrhea, and constipation, MS/Extremity: Negative for injury and deformity, Skin: Negative for injury, rash, and discoloration. Exam: 13:46 Constitutional: This is a well developed, well nourished patient who is awake, alert, ms3 and in no acute distress. Head/Face: Normocephalic, atraumatic. Eyes: Pupils equal round and reactive to light, extra-ocular motions intact. Lids and lashes normal. Conjunctiva and sclera are non-icteric and not injected. Periorbital areas with no swelling, redness, or edema. Chest/axilla: Normal chest wall appearance and motion. Nontender with no deformity. Cardiovascular: Regular rate and rhythm with a normal S1 and S2. No gallops, murmurs, or rubs. Normal PMI, no JVD. No pulse deficits. Respiratory: Lungs have equal breath sounds bilaterally, clear to auscultation and percussion. No rales, rhonchi or wheezes noted. No increased work of breathing, no retractions or nasal flaring. Abdomen/GI: Soft, non-tender, with normal bowel sounds. No distension or tympany. No guarding or rebound. No evidence of tenderness throughout. Skin: Warm, dry with normal turgor. Normal color with no rashes, no lesions, and no evidence of cellulitis. MS/ Extremity: Pulses equal, no cyanosis. Neurovascular intact. Full, normal range of motion. Vital Signs: 09:13 BP 118 / 46; Pulse 59; Resp 20; Temp 98.1(O); Pulse Ox 100% on R/A; Weight 86 kg; hb Height 5 ft. 5 in. ; Pain 4/10; 10:00 BP 118 / 52; Pulse 53; Resp 15; Pulse Ox 100% on R/A; ld1 11:07 BP 101 / 43; Pulse 52; Resp 18; Pulse Ox 100% on R/A; ld1 12:22 BP 126 / 48; Pulse 52; Resp 18; Pulse Ox 100% on R/A; ld1 13:26 BP 129 / 50; Pulse 54; Resp 18; Pulse Ox 100% on R/A; Pain 0/10; ld1 13:53 BP 131 / 49; Pulse 54; Resp 18; Pulse Ox 100% on R/A; ld1 09:13 Body Mass Index 31.55 (86.00 kg, 165.1 cm) hb 09:13 Pain Scale: Adult hb 13:26 Pain Scale: Adult ld1 MDM: 09:21 Patient medically screened. ms3 16:27 Differential Diagnosis Anemia versus GAVE. Data reviewed: vital signs, nurses notes. ms3 Consideration of Admission/Observation Escalation of care including admission/observation considered. Patient and daughter decline. They have appointment with their doctor tomorrow.. I considered the following discharge prescriptions or medication management in the emergency department Medications were administered in the Emergency Department. See MAR. Historians other than the Patient: Daughter/Son: Patient's daughter. Counseling: I had a detailed discussion with the patient and/or guardian regarding: the historical points, exam findings, and any diagnostic results supporting the discharge/admit diagnosis, lab results, the need for outpatient follow up, to return to the emergency department if symptoms worsen or persist or if there are any questions or concerns that arise at home. ED course: Discussed observation with patient and her daughter. They declined as they have an appointment with their physician tomorrow. Patient states she is improved after receiving 2 units PRBCs. Discussed repeating hemoglobin hematocrit after PRBC infusion and patient declined. All questions were answered. Return precautions discussed include lightheadedness, bloody bowel movement, shortness of breath, or any other concerns.. 06/14 09:24 Order name: CBC with Diff; Complete Time: 13:46 ms3 06/14 09:24 Order name: BMP; Complete Time: 13:46 ms3 06/14 09:24 Order name: Type And Screen ms3 06/14 09:56 Order name: CBC Smear Scan; Complete Time: 13:46 EDMS 06/14 09:57 Order name: Bb Add On: 2 Units PRBCs; Transfuse 2 units PRBC ms3 06/14 09:59 Order name: Packed RBC Leukored EDMS 06/14 09:56 Order name: BB; Complete Time: 09:57 ms3 Administered Medications: No medications were administered Disposition Summary: 06/14/23 14:52 Discharge Ordered Location: Home ms3 Condition: Stable ms3 Diagnosis - Anemia, unspecified ms3 - Essential (primary) hypertension ms3 Followup: ms3 - With: Private Physician - When: 2 - 3 days - Reason: Re-evaluation by your physician Discharge Instructions: - Discharge Summary Sheet ms3 - Anemia ms3 - Blood Transfusion, Adult, Care After, [id number] ms3 Forms: - Medication Reconciliation Form ms3 - Thank You Letter ms3 - Antibiotic Education ms3 - Prescription Opioid Use ms3 - Patient Portal Instructions ms3 Signatures: Dispatcher [employer] EDMS Sherry Jones RN Boogie Waldron DO DO ms3 Evelyn Archer RN RN ld1
--- NOTE | 2023-06-14 14:53 | ER ---
Nurse's Notes [facility] Name: Rena Burch Age: 72 yrs Sex: Female : 1950 Arrival Date: 06/14/2023 Time: 09:01 Bed 6 Private MD: Diagnosis: Anemia, unspecified;Essential (primary) hypertension Presentation: 06/14 09:13 Chief complaint: Sent by Dr. Moran at [facility] for hemoglobin 5.9. Pt is on liver hb transplant list, last paracentesis was Thursday with 5L out, c/o mild SOB and generalized weakness over the last few days. Coronavirus screen: At this time, the client does not indicate any symptoms associated with coronavirus-19. Ebola Screen: No symptoms or risks identified at this time. Initial Sepsis Screen: Does the patient meet any 2 criteria? No. Patient's initial sepsis screen is negative. Does the patient have a suspected source of infection? No. Patient's initial sepsis screen is negative. Risk Assessment: Do you want to hurt yourself or someone else? Patient reports no desire to harm self or others. Onset of symptoms was June 14, 2023. 09:13 Method Of Arrival: Ambulatory hb 09:13 Acuity: CHEIKH 3 hb Historical: - Allergies: 09:16 No Known Allergies; hb - PMHx: 09:16 COPD; Diabetes - IDDM; fatty liver; Hypertension; Paracentesis; Psoriatic Arthritis; hb - Immunization history:: Adult Immunizations up to date. - Social history:: Smoking status: Patient denies any tobacco usage or history of. Patient/guardian denies using alcohol. Screenin:00 [facility] ED Fall Risk Assessment (Adult) History of falling in the last 3 months, ld1 including since admission No falls in past 3 months (0 pts). Abuse screen: Denies threats or abuse. Denies injuries from another. Nutritional screening: No deficits noted. Tuberculosis screening: No symptoms or risk factors identified. Assessment: 10:43 General: Appears in no apparent distress. comfortable, Behavior is calm, cooperative, ld1 appropriate for age. Pain: Denies pain. Neuro: Level of Consciousness is awake, alert, obeys commands, Oriented to person, place, time, situation. Cardiovascular: Capillary refill < 3 seconds Patient's skin is warm and dry. Respiratory: Airway is patent Respiratory effort is even, unlabored. GI: Abdomen is flat, non-distended. : No signs and/or symptoms were reported regarding the genitourinary system. EENT: No signs and/or symptoms were reported regarding the EENT system. Derm: No signs and/or symptoms reported regarding the dermatologic system. Musculoskeletal: No signs and/or symptoms reported regarding the musculoskeletal system. 12:23 Reassessment: Patient appears in no apparent distress at this time. No changes from ld1 previously documented assessment. Patient and/or family updated on plan of care and expected duration. Pain level reassessed. Patient denies pain at this time. 13:26 Reassessment: Second unit of PRBC infusing now. ld1 13:54 Reassessment: Patient appears in no apparent distress at this time. No changes from ld1 previously documented assessment. Patient and/or family updated on plan of care and expected duration. Pain level reassessed. Vital Signs: 09:13 BP 118 / 46; Pulse 59; Resp 20; Temp 98.1(O); Pulse Ox 100% on R/A; Weight 86 kg; hb Height 5 ft. 5 in. ; Pain 4/10; 10:00 BP 118 / 52; Pulse 53; Resp 15; Pulse Ox 100% on R/A; ld1 11:07 BP 101 / 43; Pulse 52; Resp 18; Pulse Ox 100% on R/A; ld1 12:22 BP 126 / 48; Pulse 52; Resp 18; Pulse Ox 100% on R/A; ld1 13:26 BP 129 / 50; Pulse 54; Resp 18; Pulse Ox 100% on R/A; Pain 0/10; ld1 13:53 BP 131 / 49; Pulse 54; Resp 18; Pulse Ox 100% on R/A; ld1 09:13 Body Mass Index 31.55 (86.00 kg, 165.1 cm) hb 09:13 Pain Scale: Adult hb 13:26 Pain Scale: Adult ld1 ED Course: 09:04 Patient arrived in ED. ts1 09:09 Boogie Archer DO is Attending Physician. ms3 09:16 Triage completed. hb 09:16 Arm band placed on. hb 09:17 Evelyn Archer RN is Primary Nurse. ld1 09:35 Type And Screen Sent. ll1 09:35 BMP Sent. ll1 09:35 CBC with Diff Sent. ll1 09:35 Inserted saline lock: 20 gauge in right wrist, using aseptic technique. Blood collected.ll1 10:00 Patient has correct armband on for positive identification. Placed in gown. Bed in low ld1 position. Call light in reach. Side rails up X2. laboratory monitor on. Pulse ox on. NIBP on. Door closed. Noise minimized. Warm blanket given. 10:00 No provider procedures requiring assistance completed. ld1 13:26 Packed RBC Leukored Sent. ld1 13:26 Bb Add On: 2 Units PRBCs; Transfuse 2 units PRBC Sent. ld1 15:00 Provided Education on: Blood Transfusion. ll1 15:00 IV discontinued, intact, bleeding controlled, No redness/swelling at site. ll1 Administered Medications: No medications were administered Medication: 15:00 VIS not applicable for this client. 1 Outcome: 14:52 Discharge ordered by . ms3 15:00 Discharged to home ambulatory, with family. ll1 15:00 Condition: stable 15:00 Discharge instructions given to patient, family, Instructed on discharge instructions, follow up and referral plans. Demonstrated understanding of instructions, follow-up care. 15:00 Patient left the ED. 1 Signatures: Sherry Jones RN Rylee Palencia RN RN ll1 Boogie Archer DO DO ms3 Evelyn Archer RN RN ld1 Geno Grady, PAS PAS ts1 Corrections: (The following items were deleted from the chart) 09:17 09:13 BP 118 / 46; Pulse 59bpm; Resp 20bpm; Pulse Ox 100% RA; Temp 98.1F Oral; Pain hb 4/10, Adult; hb
[2023-06-14 15:17] VITALS: TEMP 98.1; O2SAT 100
[2023-06-14 15:27] VITALS: BP 131/49
== END 2023-06-14 15:00 | disposition home or self-care (01) ==
LOC: ER 09:01
PROC: 30233N1 Transfusion of Nonautologous Red Blood Cells into Peripheral Vein, Percutaneous Approach (ICD-10-PCS; principal; 2023-06-14)
DX: D64.9 Anemia, unspecified (principal); I10 Essential (primary) hypertension; E11.9 Type 2 diabetes mellitus without complications; J44.9 Chronic obstructive pulmonary disease, unspecified
CPT/HCPCS: 85025; 80048; 36415; 86900; 86850; 86901; 86920 ×2; 36430; P9016 ×2; J7050 ×2; 99284

== ENCOUNTER 2023-06-24 18:38 | Emergency (ER) | payer OTHER, BC ==
--- OUTSIDE RECORDS SUMMARY | 2023-06-24 18:54 | XMS REPORT | Continuity of Care Document ---
:1950 Author Organization [facility] t Address [address] [place] [address] Care Team Providers Name Role Phone Asked, No Pcp Primary Care Physician Unavailable Jacek Ledesma Attending Clinician Unavailable Hayes Velazquez MD Attending Clinician Nisreen Murphy MA Attending Clinician Unavailable Stephan Powell Attending Clinician Unavailable [place] DOVER, Nabeel Attending Clinician Sharron Abdul MD, I. Attending Clinician VIVIAN RAI Attending Clinician Unavailable Marah Brown MD Attending Clinician Harrison Gallego MD Attending Clinician [phone] Vivian Rai MD Attending Clinician MARAH BROWN Attending Clinician Unavailable Karan Lopes Attending Clinician Wilmer Warner Attending Clinician Mini Fernandes MD Attending Clinician Rufino Edwards RN Attending Clinician Unavailable CRISTOFER SMILEY Attending Clinician Unavailable Vanessa Bryant MA Attending Clinician Unavailable Emy Watt MA Attending Clinician Unavailable Isis Ortiz Attending Clinician Unavailable AMBREEN_FARHANA Attending Clinician Unavailable SAMIRA SUNG Attending Clinician [...] Infusion Nurse Attending Clinician Unavailable Doctor Unassigned, [place] Attending Clinician Unavailable 2, [facility] Attending Clinician Unavailable MAVIS HERNANDEZ Attending Clinician Unavailable Tony MEDICAL LIBRARIANMavis Attending Clinician Katlin Pinedo RN Attending Clinician Unavailable Jade Beltran RN Attending Clinician Hudson Tello Attending Clinician Fausto Zuñiga MD Attending Clinician FAUSTO ZUÑIGA Attending Clinician Unavailable MANISH ESPINOSA Attending Clinician Unavailable HARRISON GALLEGO Admitting Clinician Unavailable AMBDREWA Admitting Clinician Unavailable AKASH LI Admitting Clinician Unavailable MD BRITTNI LINK Admitting Clinician Unavailable MD CRISTOFER SMILEY Admitting Clinician Unavailable CATRACHO THORNTON Admitting Clinician Unavailable AMBER NUNEZ Admitting Clinician Unavailable Fausto Zuñiga MD Admitting Clinician FAUSTO ZUÑIGA Admitting Clinician Unavailable KARAN TORO Admitting Clinician Unavailable Payers Payer Name Policy Type Policy Number Effective Date Expiration Date S [facility] [place] B [id number] 2015 00:00:00 BCBS FED [id number] 2003 00:00:00 Blue Cross Blue C1 [id number] 2003 [facility] [employer] [facility] [place] 00:00:00 - [facility] MEDICARE MB [id number] 2015 [facility] NOVITAS 00:00:00 - [facility] MEDICARE MB [id number] 2015 [facility] NOVITAS 00:00:00 - [facility] Blue Cross Blue C1 [id number] 2003 [facility] [employer] [place] 00:00:00 - [facility] MEDICARE MB [id number] 2015 [facility] NOVITAS 00:00:00 - [facility] Blue Cross Blue C1 [id number] 2003 [facility] [place] 00:00:00 - [facility] Blue Cross Blue C1 [id number] 2003 [facility] [place] 00:00:00 - [facility] MEDICARE MB [id number] 2015 [facility] NOVITAS 00:00:00 - [facility] MEDICARE MB [id number] 2015 [facility] NOVITAS 00:00:00 - [facility] Blue Cross Blue C1 [id number] 2003 [facility] [employer] [facility] [place] 00:00:00 - [facility] MEDICARE PART A [id number] 2015 \\T\\ B 00:00:00 BCBS FED SELECT [id number] 2003 00:00:00 Problems Condition Condition Condition Status Onset Resolution Last Treating Co mments Source Name Details Category Date Date Treatment Clinician Date GI bleed GI bleed Disease Active [facility] Medical 00 Center Age-relate Age-relate Disease Active M ethodi d d 03-14 st osteoporos osteoporos 00:00: Ho spita is without is without 00 l current current pathologic pathologic al al fracture fracture Vitamin D Vitamin D Disease Active 2022-0 Met hodi deficiency deficiency 03-14 00:00: Hospita 00 l Other Other Disease Active Methodi hyperlipid hyperlipid 03-14 emia emia 00:00: Hospita 00 l Liver Liver Disease Active 2020-11 Overview: [facility] g of this H ospita 00 note l might be different from the original. Added automatic ally from request for surgery [id number] Abnormal Abnormal Disease Active Metho di liver [...] Hypertensi Disease Active U nivers ve ve 02-20 [place] Transient Transient Disease Active Uni vers confusion confusion 06 ity of 00:00: [place] 00 Medical Branch COPD COPD Disease Recurre 2018-[address] (chronic (chronic nce 0-31 [facility] obstruct[facility] obstructiv 00:00: Me dical e e 00 Center pulmonary pulmonary disease) disease) Cirrhosis Cirrhosis Disease Recurre 2018-[address] [facility] liver of liver nce 0-30 [facility] with with 00:00: Medical ascites ascites 00 Center Shoulder Shoulder Disease Active Unive rs bursitis bursitis 6-09 ity of 00:00: [place] 00 Medical Branch Encounter Encounter Disease Active Overview: Univers for for 04-24 Form[place] ity of screening screening 00:00: [place] of [place] for for 00 note Medical osteoporos osteoporos might be Branch is is different from the original. 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 3B disease St (disorder) [facility] [id number] GERD Problem Common without Spirit esophagiti - CHI s [facility] Ascites Other Problem Common ascites [facility] [id number] LEE Problem Common (nonalcoho Spirit lic - CHI steatohepa [facility] [id number] Essential Problem Comm on (primary) Spirit hypertensi - CHI on [facility] [id number] Mixed Problem Common hyperlipid Spirit emia - CHI [facility] [id number] Gastric Problem Common polyp [facility] [id number] Portal Problem Common hypertensi Spirit on - CHI [facility] [id number] Solitary Problem Comm on lung Spirit nodule CHI [facility] [id number] Psoriatic Problem Com mon arthritis [facility] [id number] Chest Problem Common congestion Spirit - CHI [facility] [id number] Other Problem Common obesity Spirit due to - CHI excess [id number] Cerebral Problem Commo n atheroscle Spirit rosis - [facility] [id number] Non-season Problem Com mon al Spirit allergic - CHI rhinitis, [facility] [id number] Thrombocyt Problem Co mmon openia Spirit - CHI [facility] Oesophagea Secondary Problem Co mmon l varices esophageal Spi rit without varices - CHI bleeding without bleeding [facility] [id number] Nasal Problem Common congestion Spirit - [facility] [id number] Cough Problem [facility] - [facility] [id number] Upper Problem Common respirator Spirit y tract - CHI infection, [facility] [id number] Body mass Problem Com mon index Spirit [BMI] - [facility] 34.0-34.9, [facility] Allergies, Adverse Reactions, Alerts Allergy Allergy Status Severity Reaction(s) Onset Inactive Treating Comm ents Source Name Type Date Date Clinician No Known DA Active [facility] 02[facility]15 [facility] 00:00: [address] No Known DA Active U [facility] Allergie - [facility] 00:00: [address] NO KNOWN Drug Active Univers ALLERGIE Class ity of S [facility] NO KNOWN Allergy Active [facility] ALLERGIE S Family History Family Member Diagnosis Comments Start Date Stop Date Source Natural brother Diabetes [facility] Maternal grandmother Diabetes Meth [facility] mother Diabetes [facility] Natural sister Diabetes [facility] Social History Social Habit Start Date Stop Date Quantity Comments Source History of Tobacco [facility] - Use [facility] Exposure to Not sure University of SARS-CoV-2 (event) [facility] Gender identity [facility] Sexual orientation Method ist Hospital History SDOH [facility] Alcohol Std Drinks Medica l Center History SDOH [facility] Alcohol Binge Medical Sharla ter Tobacco use and 2023-06-15 2023-06-15 Smokeless [facility] exposure 00:00:00 00:00:00 tobacco non-user Hospital History of Social 2023-06-15 2023-06-[address] function 00:00:00 00:00:00 Hospital Alcohol intake 2023-05-18 2023-05-[address] Zara es 00:00:00 00:00:00 non-drinker of Medical Ce nter alcohol (finding) History SDOH 2019-09-14 2019-09-14 1 PRISCILA Bailey Alcohol Frequency 00:00:00 00:00:00 Medical Center Sex Assigned At [birth year] PRISCILA [place] 00:00:00 00:00:00 Medical Center Smoking Status Start Date Stop Date Source Never smoked tobacco [facility] Medications Ordered Filled Start Stop Current Ordering Indication Dosage Frequency Signature Comments Components Source Medication Medication Date Date Medication? Clinician (SIG) Name Name FERROUS 2022-0 202- No 65mg Q.5D Take 65 mg Met hodi SULFATE 06-[address] ORAL 14:27: 00:00 (two) Hospita 06 :00 times a l day. eplerenone 2022-0 2022- No 25mg QD Take 25 mg Methodi (INSPRA) 25 06-[address] MG tablet 14:27: 00:00 daily. Hospi ta 03 :00 l aspirin 2022-0 2022- No 81mg QD Take 81 mg Met hodi (ECOTRIN) 06-[address] 81 MG 14:26: 00:00 daily. Hospita enteric 59 :00 l coated tablet metoprolol 2022-0 Yes 100mg Q.5D Take 1 Meth kiran tartrate 06-[address] (LOPRESSOR) 13:44: (100 mg Hos john 100 mg 29 total) by l tablet mouth 2 (two) times a day. lactulose 2022-0 Yes Q.[id number] Take by Methodi 10 gram/15 06-[id number] mL (15 mL) 13:44: 3D (three) Hosp tracey solution 29 times a l day. riFAXimin 2022-0 Yes 550mg Q.5D Take 1 Metho di (XIFAXAN) - tablet st 550 mg 13:44: (550 mg Hospita tablet 29 total) by l mouth 2 (two) times a day. FUROSEMIDE 2022-0 Yes 40mg Q.5D Take 40 mg M ethodi ORAL [address] 13:44: (two) Hospita 29 times a l day. omeprazole 0 Yes 40mg QD Take 1 Metho di (PriLOSEC) -[address] 40 MG 13:44: (40 mg Hospita capsule 29 total) by l mouth daily. atorvastati 2022-0 Yes 10mg QD Take 1 Meth kiran n (LIPITOR) 7-31 tablet (10 st 10 mg 13:44: mg total) Hospita tablet 29 by mouth l daily. levocetiriz 2022-0 Yes 5mg QD Take 5 mg M ethodi ine -[address] dihydrochlo 13:44: daily. Hosp tracey ride (XYZAL 29 l ORAL) albuterol 0 Yes 2{puff} Q6H Inhale 2 M ethodi (PROAIR - puffs st HFA) 90 13:44: every 6 Hospita mcg/actuati 29 (six) l on inhaler hours as needed for wheezing. amLODIPine 0 Yes 5mg QD Take 1 Metho di (NORVASC) 5 06-15 tablet (5 st mg tablet 13:44: mg total) Hos john 29 by mouth l daily. lactulose 0 Yes 15mL QD Take 15 [facility] t (CHRONULAC) 7-04 mLs by [facility] 10 gram/15 11:38: mouth Medica l mL (15 mL) 03 nightly. Cente r solution rifAXIMin 0 Yes 550mg QD Take 1 CHI S t 550 mg Tab 7-04 tablet [facility]ukes 11:38: (550 mg Medical 03 total) by Center mouth daily. atorvastati 0 Yes 10mg QD Take [address] n (LIPITOR) 7-04 tablet (10 Shira kes 10 MG 11:38: mg total) Medical tablet 03 by mouth Center daily. furosemide 2022-0 2023- No 40mg QD Take [address] (LASIX) 40 7-04 07-03 tablet (40 Shira kes MG tablet 11:38: 00:00 mg total) Me dical 03 :00 by mouth Center daily. SITagliptin 0 Yes 1{tbl} QD Take [address] -metFORMIN 7-03 tablet by Luke s (JANUMET) 11:38: mouth Medical 50-1,000 mg 23 daily. Center per tablet montelukast 2022-0 Yes 10mg QD Take [address] (SINGULAIR) -03 tablet (10 Shira kes 10 mg 11:38: mg total) Medical tablet 23 by mouth Center nightly. metoprolol 2022-0 Yes 100mg Q.5D Take [address] (LOPRESSOR) 7-03 mg by [facility] 100 MG 11:38: mouth 2 Medical tablet 23 (two) Center times daily. amLODIPine 2022-0 Yes 5mg QD Take [address] (NORVASC) 5 7-03 by mouth Luke s MG tablet 11:38: daily. Medica l 23 Center omeprazole 0 Yes 40mg QD Take [address] (PRILOSEC) 7-03 by mouth [facility] 40 MG 11:38: daily. Medical capsule 23 Center brimonidine 0 Yes 1[drp] Q.5D Place [address] (ALPHAGAN) 05-18 drop into Luke s 0.15 % 11:38: both eyes Medica l ophthalmic 23 2 (two) Center solution times daily. insulin 0 Yes 30U QD Inject 30 CHI S t degludec - Units [facility] 100 unit/mL 11:38: subcutaneo Medical (3 mL) InPn 23 usly Center daily. latanoprost 0 Yes 1[drp] QD Place [address] (XALATAN) - drop into [facility]ukes 0.005 % 11:38: both eyes Medic al ophthalmic 23 nightly. Cente r solution lisinopril 2022-0 2022- No 20mg QD Take [address] (PRINIVIL,Z 05-18- tablet (20 L ukes ESTRIL) 20 08:53: 00:00 mg total) M edical MG tablet 06 :00 by mouth Center daily. hydroCHLORO 2022-0 2022- No 12.5mg QD Take [address] thiazide 05-18- capsule [facility]ukes (MICROZIDE) 08:53: 00:00 (12.5 mg M edical 12.5 mg 06 :00 total) by Center capsule mouth daily. pantoprazol 2022-0 2022- No 40mg QD Take [address] e 05-18 08-02 tablet (40 [facility] (PROTONIX) 00:00: 23:59 mg total) M edical 40 MG 00 :00 by mouth Center tablet daily for 30 days. sucralfate 2022-0 2022- No 1g QD Take [address] (CARAFATE) 05-18 tablet (1 Zara es 1 gram 00:00: 23:59 g total) Medica l tablet 00 :00 by mouth Center daily for 7 days. cefdinir 2022-0 2022- No 300mg QD Take 1 CHI S t (OMNICEF) 05-18 capsule [facility] 300 MG 00:00: 23:59 (300 mg Medical capsule 00 :00 total) by Center mouth daily for 2 days. Augmentin Augmentin 2021-0 2021- No 1{table Augmentin 500-125 MG 500-125 MG 05-21 t} 500-125 MG 00:00: 00:00 00 :00 Augmentin Augmentin 2-0 2021- No 1{table Augmentin 500-125 MG 500-125 MG 05-21 t} 500-125 MG 00:00: 00:00 00 :00 riFAXimin 2021-0 Yes 550mg Q.5D Take 550 [...] Hospita 19 times a l day. aspirin 2-0 Yes 81mg QD Take 81 mg Meth kiran (ECOTRIN) 3-[address] 81 MG 09:22: daily. Hospita enteric 19 l coated tablet levocetiriz 2021-0 Yes 5mg QD Take 5 mg M [...] tablet times a day. lactulose 2-0 Yes Q.[id number] Take by Methodi 10 gram/15 3-[id number] mL (15 mL) 09:22: 3D (three) Hosp tracey solution 19 times a l day. riFAXimin 2-0 Yes 550mg Q.5D Take 550 Met hodi [...] 09:22: daily. Hospit a 19 l omeprazole 2022-0 Yes 40mg QD Take 40 mg M [...] Hospita 19 times a l day. aspirin 2021-0 Yes 81mg QD Take 81 mg Meth [...] 09:22: daily. Hospit a 19 l metoprolol 0 Yes 100mg Q.5D Take 100 Me thodi tartrate 3-[address] (LOPRESSOR) 09:22: mouth 2 Hos john 100 mg 19 (two) l tablet times a day. lactulose 0 Yes Q.[id number] Take by Methodi 10 gram/15 3-[id number] mL (15 mL) 09:22: 3D (three) Hosp tracey solution 19 times a l day. Levalbutero Levalbutero 2020-11 No Levalbuter l HCl [...] 00:00: 1.25 00 MG/3ML albumin 2020- No [id number] 50g Univ ers (ALBUMINAR 05-27 ity of 25%) 25 % 14:30: 02:29 [place] injection 00 :00 Medical 50 g Branch albumin 2020- No [id number] 50g Univ ers (ALBUMINAR 05-27 ity of 25%) 25 % 14:30: 14:50 [place] injection 00 :00 Medical 50 g Branch albumin 2020- No [id number] 50g 50 g, IV Univers (ALBUMINAR 05-27 Infusion, ity of 25%) 25 % 14:30: 14:50 ONCE, 1 [place] injection 00 :[place] dose, Mon Medic al 50 g 05/27/21 at Branch 0930, 200 mL
Gabrielle cation: LARGE VOLUME PARACENTES IS IN CIRRHOSIS (>5L) albumin 2020- No [id number] 37.5g Uni vers (ALBUMINAR 05-02 ity of 25%) 25 % 15:11: 15:22 [place] injection 00 :00 Medical 37.5 g Branch albumin 2020- No [id number] 37.5g 37.5 g, IV Univers (ALBUMINAR 05-02 Infusion, ity of 25%) 25 % 15:11: 15:22 ONCE, 1 [place] injection 00 :[place] dose, Kiersten Medic al 37.5 g 05/02/21 at Branch 1015, 150 mL
Gabrielle cation: LARGE VOLUME PARACENTES IS IN CIRRHOSIS (>5L) albumin 2020- No [id number] 50g Univ ers (ALBUMINAR 03-28 ity of 25%) 25 % 15:51: 16:03 [place] injection 00 :00 Medical 50 g Branch albumin 2020- No [id number] 50g 50 g, IV Univers (ALBUMINAR 03-28 Infusion, ity of 25%) 25 % 15:51: 16:03 ONCE, 1 [place] injection 00 :[place] dose, Kiersten Medic al 50 g 03/28/21 at Branch 1100, 200 mL
Gabrielle cation: LARGE VOLUME PARACENTES IS IN CIRRHOSIS (>5L)
C omments: Ascites removal albumin 2020- No [id number] 12.5g Univ ers (ALBUMINAR 01-29 ity of 25%) 25 % 17:15: 17:24 [place] injection 00 :00 Medical 12.5 g Branch albumin 2020- No [id number] 12.5g 12.5 g, IV Univers (ALBUMINAR 01-29 [...] PRN, [place] injection 03 Starting Medica l 1/4/21 Branch at 1331, Until Discontinu ed albumin 2019- 2020- No IV Univers (ALBUMINAR 12-23 Infusion, ity of 25%) 25 % 19:56: 20:19 PRN, [place] injection 00 :00 Starting Medica l [facility] Branch 10/22/20 at 1356, Until Discontinu ed lidocaine 2019-11- No PRN, Univers 1% (PF) 12-23 Starting ity of (XYLOCAINE) 19:54: 19:54 Mon [place] injection 00 :00 10/22/20 at [facility] janett 1354, Branch Until Discontinu ed, Routine hydralAZINE 2019- 2020- No 10mg 10 mg, Uni vers (APRESOLINE 02-24 Intravenou i ty of ) injection 13:00: 12:40 s, ONCE, 1 [place] 10 mg 00 :00 dose, Sat Medical 02/25/20 at Branch 0800, Routine metFORMIN 2020-0 Yes [id number] 500mg Take 1 Univers 500 mg 4-11 tablet by ity of tablet 00:00: mouth [place] ([facility]) Medical times Gideon daily with meals. metFORMIN 2020-0 Yes [id number] 500mg Take 1 Univers 500 mg 4-11 tablet by ity of tablet 00:00: mouth [place] ([facility]) Medical times Gideon daily with meals. metFORMIN 2020-0 Yes [id number] 500mg Take 1 Univers 500 mg 4-11 tablet by ity of tablet 00:00: mouth [place] ([facility]) Medical times Gideon daily with meals. metFORMIN 2020-0 Yes [id number] 500mg Take 1 Univers 500 mg 4-11 tablet by ity of tablet 00:00: mouth [place] ([facility]) Medical times Gideon daily with meals. metFORMIN 2020-0 Yes [id number] 500mg Take 1 Univers 500 mg 4-11 tablet by ity of tablet 00:00: mouth [place] ([facility]) Medical times Gideon daily with meals. metFORMIN 2020-0 Yes [id number] 500mg Take 1 Univers 500 mg 4-11 tablet by ity of tablet 00:00: mouth [place] ([facility]) Medical times Gideon daily with meals. metFORMIN 2020-0 Yes [id number] 500mg Take 1 Univers 500 mg 4-11 tablet by ity of tablet 00:00: mouth [place] ([facility]) Medical times Gideon daily with meals. metFORMIN 2020-0 Yes [id number] 500mg Take 1 Univers 500 mg 4-11 tablet by ity of tablet 00:00: mouth (two) Medical times Branch daily with meals. metFORMIN 2020-0 Yes [id number] 500mg Take 1 Univers 500 mg 4-11 tablet by ity of tablet 00:00: mouth (two) Medical times Branch daily with meals. metFORMIN 2020-0 Yes [id number] 500mg Take 1 Univers 500 mg 4-11 tablet by ity of tablet 00:00: mouth (two) Medical times Branch daily with meals. metFORMIN 2020-0 Yes [id number] 500mg Take 1 Univers 500 mg 4-11 tablet by ity of tablet 00:00: mouth (two) Medical times Branch daily with meals. metFORMIN 2020-0 Yes [id number] 500mg Take 1 Univers 500 mg 4-11 tablet by ity of tablet 00:00: mouth (two) Medical times Branch daily with meals. metFORMIN 2020-0 Yes [id number] 500mg Take 1 Univers 500 mg 4-11 tablet by ity of tablet 00:00: mouth (two) Medical times Branch daily with meals. metFORMIN 2020-0 Yes [id number] 500mg Take 1 Univers 500 mg 4-11 tablet by ity of tablet 00:00: mouth (two) Medical times Branch daily with meals. metFORMIN 2020-0 Yes [id number] 500mg Take 1 Univers 500 mg 4-11 tablet by ity of tablet 00:00: mouth (two) Medical times Branch daily with meals. metFORMIN 2020-0 Yes [id number] 500mg Take 1 Univers 500 mg 4-11 tablet by ity of tablet 00:00: mouth (two) Medical times Branch daily with meals. metFORMIN 2020-0 Yes [id number] 500mg Take 1 Univers 500 mg 4-11 tablet by ity of tablet 00:00: mouth (two) Medical times Branch daily with meals. metFORMIN 2020-0 Yes [id number] 500mg Take 1 Univers 500 mg 4-11 tablet by ity of tablet 00:00: mouth (two) Medical times Branch daily with meals. metFORMIN 2020-0 Yes [id number] 500mg Take 1 Univers 500 mg 4-11 tablet by ity of tablet 00:00: mouth (two) Medical times Branch daily with meals. metFORMIN 2020-0 Yes [id number] 500mg Take 1 Univers 500 mg 4-11 tablet by ity of tablet 00:00: mouth (two) Medical times Branch daily with meals. metFORMIN 2020-0 Yes [id number] 500mg Take 1 Univers 500 mg 4-11 tablet by ity of tablet 00:00: mouth (two) Medical times Branch daily with meals. metFORMIN 2020-0 Yes [id number] 500mg Take 1 Univers 500 mg 4-11 tablet by ity of tablet 00:00: mouth (two) Medical times Branch daily with meals. metFORMIN 2020-0 Yes [id number] 500mg Take 1 Univers 500 mg 4-11 tablet by ity of tablet 00:00: mouth [place] (two) Medical times Branch daily with meals. metFORMIN 2020-0 Yes [id number] 500mg Take 1 Univers 500 mg 4-11 tablet by ity of tablet 00:00: mouth (two) Medical times Branch daily with meals. metFORMIN 2020-0 Yes [id number] 500mg Take 1 Univers 500 mg 4-11 tablet by ity of tablet 00:00: mouth (two) Medical times Branch daily with meals. metFORMIN 2020-0 Yes [id number] 500mg Take 1 Univers 500 mg 4-11 tablet by ity of tablet 00:00: mouth (two) Medical times Branch daily with meals. metFORMIN 2020-0 Yes [id number] 500mg Take 1 Univers 500 mg 4-11 tablet by ity of tablet 00:00: mouth (two) Medical times Branch daily with meals. cephALEXin 2020-0 2020- No [id number] 500mg Take 1 Univers 500 mg 4-11 -19 capsule by ity of capsule 00:00: 04:59 mouth 2 [place] 00 :00 (two) Medical times Branch daily for 7 days. amLODIPine 2020-0 2020- No [id number] 10mg Take 1 Univers 10 mg 4-09 05-10 [id number] tablet by ity of tablet 00:00: 04:59 mouth [place] 00 :00 daily for Medical 30 days. Branch amLODIPine 2020-0 2020- No [id number] 10mg Take 1 Univers 10 mg 4-09 05-10 [id number] tablet by ity of tablet 00:00: 04:59 mouth [place] 00 :00 daily for Medical 30 days. Branch amLODIPine 2020-0 2020- No [id number] 10mg Take 1 Univers 10 mg [id number] tablet by ity of tablet 00:00: 04:59 mouth [place] 00 :00 daily for Medical 30 days. Branch amLODIPine 2020-0 2020- No [id number] 10mg Take 1 Univers 10 mg [id number] tablet by ity of tablet 00:00: 04:59 mouth [place] 00 :00 daily for Medical 30 days. Branch montelukast 2020-0 Yes 10mg Take 10 mg Univers 10 mg 4-08 by mouth ity of tablet 16:30: daily. [place] [address] Medical Branch cetirizine 2020-0 Yes 10mg Take 10 mg U nivers (ZYRTEC) 10 4-08 by mouth ity of mg tablet 16:30: daily. [place] [address] Medical Branch albuterol-i 2020-0 Yes 1{puff} Inhale 1 Univers pratropium 4-08 Puff as ity of 20-100 16:30: needed for [facility] Wheezing Medi janett on inhaler or Branch Shortness of Breath. spironolact 2020-0 Yes 25mg Take 25 mg Univers one 25 mg 4-08 by mouth 2 ity of tablet 16:30: (two) [place] [address] times Medical daily. Branch gabapentin 2020-0 Yes 100mg Take 100 Un aileen 100 mg 4-08 mg by ity of capsule 16:30: mouth at [place] [address] bedtime. Medical Branch ferrous 2020-0 Yes 325mg Take 325 Unive rs sulfate 325 4-08 mg by ity of mg (65 mg 16:30: mouth 3 [place] iron) 32 (three) Medical tablet times Gideon daily with meals. metoprolol 2020-0 Yes 100mg Take 100 Un aileen tartrate 4-08 mg by ity of (LOPRESSOR) 16:30: mouth 2 Dimitrios as 50 mg 32 (two) Medical tablet times Gideon daily. fexofenadin 2020-0 Yes 180mg Take 180 U nivers e (ERIKA) 4-08 mg by ity of 180 mg 16:30: mouth [place] tablet 32 daily. Medical Branch fluticasone 2020-0 Yes 2{spray Use 2 Un aileen (FLONASE) 4-08 } Sprays in ity o f 50 16:30: each [place] mcg/Actuati 32 nostril Medic al on nasal daily. Branch spray latanoprost 2020-0 Yes 1[drp] Place 1 [facility] (XALATAN) 4-08 Drop in ity of 0.005 % 16:30: both eyes [place] ophthalmic 32 every Medical drops evening. Branch secukinumab 2020-0 Yes 150mg inject 150 [facility] (COSENTYX) 4-08 mg under ity o f 150 mg/mL 16:30: [place] skin [place] syringe 32 weekly. Medica l Branch omeprazole 2020-0 Yes 40mg Take 40 mg [facility] n[facility] 40 mg 4-08 by mouth ity of capsule 16:30: daily. [place] [address] Medical Branch DULoxetine 2020-0 Yes 30mg Take 30 mg [facility] n[facility] 30 mg 4-08 by mouth ity of capsule 16:30: daily. [place] [address] Medical Branch hydroCHLORO 2020-0 Yes 12.5mg Take 12.5 [facility] thiazide 4-08 mg by ity of 12.5 mg 16:30: mouth [place] capsule 32 daily. Medical Branch montelukast 2020-0 Yes 10mg Take 10 mg [facility] 10 mg 4-08 by mouth ity of tablet 16:30: daily. [place] [address] Medical Branch cetirizine 2020-0 Yes 10mg Take 10 mg [facility] (ZYRTEC) 10 4-08 by mouth ity of mg tablet 16:30: daily. [place] [address] Medical Branch albuterol-i 2020-0 Yes 1{puff} Inhale 1 [facility] pratropium 4-08 Puff as ity of 20-100 16:30: needed for [place] mcg/actuati 32 Wheezing Medi janett on inhaler or Branch Shortness of Breath. spironolact 2020-0 Yes 25mg Take 25 mg [facility] one 25 mg 4-08 by mouth 2 ity of tablet 16:30: (two) [place] [address] times Medical daily. Branch gabapentin 2020-0 Yes 100mg Take 100 Un aileen 100 mg 4-08 mg by ity of capsule 16:30: mouth at [place] [address] bedtime. Medical Branch ferrous 2020-0 Yes 325mg Take 325 Unive rs sulfate 325 4-08 mg by ity of mg (65 mg 16:30: mouth 3 [place] iron) (three) Medical tablet times Branch daily [...] ity of 0.005 % 16:30: both eyes [place] ophthalmic 32 every Medical drops evening. Branch secukinumab 2020-0 Yes 150mg inject 150 [facility] (COSENTYX) 4-08 mg under ity o f 150 mg/mL 16:30: [place] syringe 32 weekly. Medica l Branch omeprazole 2020-0 Yes 40mg Take 40 mg [facility] 40 mg 4-08 by mouth ity of capsule 16:30: daily. [address] Branch DULoxetine 2020-0 Yes 30mg Take 30 mg [facility] nivers 30 mg 4-08 by mouth ity of capsule 16:30: daily. [address] Branch hydroCHLORO 2020-0 Yes 12.5mg Take 12.5 [facility] thiazide 4-08 mg by ity of 12.5 mg 16:30: mouth [place] capsule 32 daily. [facility] Branch montelukast 2020-0 Yes 10mg Take 10 mg [facility] 10 mg 4-08 by mouth ity of tablet 16:30: daily. [address] Branch cetirizine 2020-0 Yes 10mg Take 10 mg [facility] nivers (ZYRTEC) 10 4-08 by mouth ity of mg tablet 16:30: daily. [address] Branch albuterol-i 2020-0 Yes 1{puff} Inhale 1 [facility] pratropium 4-08 Puff as ity of 20-100 16:30: needed for [place] mcg/actuati 32 Wheezing Medi janett on inhaler or Branch Shortness of Breath. spironolact 2020-0 Yes 25mg Take 25 mg [facility] one 25 mg 4-08 by mouth 2 ity of tablet 16:30: (two) [place] 32 times Medical daily. Branch gabapentin 2020-0 Yes 100mg Take 100 Un aileen 100 mg 4-08 mg by ity of capsule 16:30: mouth at [place] [address] bedtime. Medical Branch ferrous 2020-0 Yes 325mg Take 325 Unive rs sulfate 325 4-08 mg by ity of mg (65 mg 16:30: mouth 3 [place] iron) 32 (three) Medical tablet times [place] daily with meals. metoprolol 2020-0 Yes 100mg Take 100 Un [facility]en tartrate 4-08 mg by ity of (LOPRESSOR) 16:30: mouth 2 [place] as 50 mg 32 (two) Medical tablet times [place] daily. fexofenadin 2020-0 Yes 180mg Take 180 U nivers e (ERIKA) 4-08 mg by ity of 180 mg 16:30: mouth [place] tablet 32 daily. Medical Branch fluticasone 2020-0 Yes 2{spray Use 2 Un [facility]en (FLONASE) 4-08 } Sprays in ity o f 50 16:30: each [place] mcg/Actuati 32 nostril Medic al on nasal daily. Branch spray latanoprost 2020-0 Yes 1[drp] Place 1 [facility] nivers (XALATAN) 4-08 Drop in ity of 0.005 % 16:30: both eyes [place] ophthalmic 32 every Medical drops evening. Branch secukinumab 2020-0 Yes 150mg inject 150 [facility] (COSENTYX) 4-08 mg under ity o f 150 mg/mL 16:30: [place] skin [place] syringe 32 weekly. Medica l Branch omeprazole 2020-0 Yes 40mg Take 40 mg [facility] nivers 40 mg 4-08 by mouth ity of capsule 16:30: daily. [place] [address] Medical Branch DULoxetine 2020-0 Yes 30mg Take 30 mg [facility] nivers 30 mg 4-08 by mouth ity of capsule 16:30: daily. [address] Branch hydroCHLORO 2020-0 Yes 12.5mg Take [...] mouth ity of mg tablet 16:30: daily. [address] Branch albuterol-i 2020-0 Yes 1{puff} Inhale 1 [facility] pratropium 4-08 Puff as ity of 20-100 16:30: needed for [place] mcg/actuati 32 Wheezing Medi janett on inhaler or Branch Shortness of Breath. spironolact 2020-0 Yes 25mg Take 25 mg [facility] one 25 mg 4-08 by mouth 2 ity of tablet 16:30: (two) [place] 32 times Medical daily. Branch gabapentin 2020-0 Yes 100mg Take 100 Un aileen 100 mg 4-08 mg by ity of capsule 16:30: mouth at [place] [address] bedtime. Medical Branch ferrous 2020-0 Yes 325mg Take 325 Unive rs sulfate 325 4-08 mg by ity of mg (65 mg 16:30: mouth 3 [place] iron) 32 (three) Medical tablet times [place] daily with meals. metoprolol 2020-0 Yes 100mg Take 100 Un [place] tartrate 4-08 mg by ity of (LOPRESSOR) 16:30: mouth 2 [place] as 50 mg 32 (two) Medical tablet times [place] daily. fexofenadin 2020-0 Yes 180mg Take 180 U nivers e (ERIKA) 4-08 mg by ity of 180 mg 16:30: mouth [place] tablet 32 daily. Medical Branch fluticasone 2020-0 Yes 2{spray Use 2 Un [facility]en (FLONASE) 4-08 } Sprays in ity o f 50 16:30: each [place] mcg/Actuati 32 nostril Medic al on nasal daily. Branch spray latanoprost 2020-0 Yes 1[drp] Place 1 [facility] nivers (XALATAN) 4-08 Drop in ity of 0.005 % 16:30: both eyes [place] ophthalmic 32 every Medical drops evening. Branch secukinumab 2020-0 Yes 150mg inject 150 [facility] (COSENTYX) 4-08 mg under ity o f 150 mg/mL 16:30: [place] syringe 32 weekly. Medica l Branch omeprazole 2020-0 Yes 40mg Take 40 mg [facility] nivers 40 mg 4-08 by mouth ity of capsule 16:30: daily. [place] [address] Medical Branch DULoxetine 2020-0 Yes 30mg Take 30 mg [facility] nivers 30 mg 4-08 by mouth ity of capsule 16:30: daily. [address] Branch hydroCHLORO 2020-0 Yes 12.5mg Take 12.5 [facility] thiazide 4-08 mg by ity of 12.5 mg 16:30: mouth [place] capsule 32 daily. Medical Branch montelukast 2020-0 Yes 10mg Take 10 mg [facility] 10 mg 4-08 by mouth ity of tablet 16:30: daily. [address] Branch cetirizine 2020-0 Yes 10mg Take 10 mg [facility] nivers (ZYRTEC) 10 4-08 by mouth ity of mg tablet 16:30: daily. [address] Branch albuterol-i 2020-0 Yes 1{puff} Inhale 1 [facility] pratropium 4-08 Puff as ity of 20-100 16:30: needed for [place] mcg/actuati 32 Wheezing Medi janett on inhaler or Branch Shortness of Breath. spironolact 2020-0 Yes 25mg Take 25 mg [facility] one 25 mg 4-08 by mouth 2 ity of tablet 16:30: (two) [place] 32 times Medical daily. Branch gabapentin 2020-0 Yes 100mg Take 100 Un aileen 100 mg 4-08 mg by ity of capsule 16:30: mouth at [place] [address] bedtime. Medical Branch ferrous 2020-0 Yes 325mg [...] nasal daily. Branch spray latanoprost 2020-0 Yes 1[p] Place 1 [facility] nivers (XALATAN) 4-08 Drop in ity of 0.005 % 16:30: both eyes [place] ophthalmic 32 every Medical drops evening. Branch secukinumab 2020-0 Yes 150mg inject 150 [facility] (COSENTYX) 4-08 mg under ity o f 150 mg/mL 16:30: [place] syringe 32 weekly. Medica l Branch omeprazole 2020-0 Yes 40mg Take 40 mg [facility] nivers 40 mg 4-08 by mouth ity of capsule 16:30: daily. [place] [address] Medical Branch DULoxetine 2020-0 Yes 30mg Take 30 mg [facility] nivers 30 mg 4-08 by mouth ity of capsule 16:30: daily. [place] [address] Medical Branch hydroCHLORO 2020-0 Yes 12.5mg Take 12.5 [facility] thiazide 4-08 mg by ity of 12.5 mg 16:30: mouth [place] capsule 32 daily. Medical Branch montelukast 2020-0 Yes 10mg Take 10 mg [facility] 10 mg 4-08 by mouth ity of tablet 16:30: daily. [place] [address] Medical Branch cetirizine 2020-0 Yes 10mg Take 10 mg U nivers (ZYRTEC) 10 4-08 by mouth ity of mg tablet 16:30: daily. [place] [address] Medical Branch albuterol-i 2020-0 Yes 1{puff} Inhale 1 [facility] pratropium 4-08 Puff as ity of 20-100 16:30: needed for [facility] Wheezing Medi janett on inhaler or Branch Shortness of Breath. spironolact 2020-0 Yes 25mg Take 25 mg [facility] one 25 mg 4-08 by mouth 2 ity of tablet 16:30: (two) [place] 32 times Medical daily. Branch gabapentin 2020-0 Yes 100mg Take 100 Un aileen 100 mg 4-08 mg by ity of capsule 16:30: mouth at [place] [address] bedtime. Medical Branch ferrous 2020-0 Yes 325mg [...] ity of 0.005 % 16:30: both eyes [place] ophthalmic 32 every Medical drops evening. Branch secukinumab 2019-0 Yes 150mg inject 150 [facility] (COSENTYX) 4-08 mg under ity o f 150 mg/mL 16:30: [place] syringe 32 weekly. Medica l Branch omeprazole 2019-0 Yes 40mg Take 40 mg U nivers 40 mg 4-08 by mouth ity of capsule 16:30: daily. [address] Branch DULoxetine 2020-0 Yes 30mg Take 30 mg U nivers 30 mg 4-08 by mouth ity of capsule 16:30: daily. [address] Branch hydroCHLORO 2020-0 Yes 12.5mg Take 12.5 [facility] thiazide 4-08 mg by ity of 12.5 mg 16:30: mouth [place] capsule 32 daily. Medical Branch montelukast 2020-0 Yes 10mg Take 10 mg [facility] 10 mg 4-08 by mouth ity of tablet 16:30: daily. [address] Branch cetirizine 2020-0 Yes 10mg Take 10 mg U nivers (ZYRTEC) 10 4-08 by mouth ity of mg tablet 16:30: daily. [address] Branch albuterol-i 2020-0 Yes 1{puff} Inhale [...] by ity of capsule 16:30: mouth at [place] [address] bedtime. Medical Branch ferrous 2020-0 Yes 325mg Take 325 Unive rs sulfate 325 4-08 mg by ity of mg (65 mg 16:30: mouth 3 [place] iron) 32 (three) Medical tablet times [place] daily with meals. metoprolol 2020-0 Yes 100mg Take 100 Un aileen tartrate 4-08 mg by ity of (LOPRESSOR) 16:30: mouth 2 [place] as 50 mg 32 (two) Medical tablet times [place] daily. fexofenadin 2020-0 Yes 180mg Take 180 [...] ity of 0.005 % 16:30: both eyes [place] ophthalmic 32 every Medical drops evening. Branch secukinumab 2019-0 Yes 150mg inject 150 [facility] (COSENTYX) 4-08 mg under ity o f 150 mg/mL 16:30: [place] skin [place] syringe 32 weekly. Medica l Branch omeprazole 2020-0 Yes 40mg Take 40 mg U nivers 40 mg 4-08 by mouth ity of capsule 16:30: daily. [place] [address] Medical Branch DULoxetine 2020-0 Yes 30mg Take 30 mg U nivers 30 mg 4-08 by mouth ity of capsule 16:30: daily. [place] [address] Medical Branch hydroCHLORO 2020-0 Yes 12.5mg Take 12.5 [facility] thiazide 4-08 mg by ity of 12.5 mg 16:30: mouth [place] capsule 32 daily. Medical Branch montelukast 2020-0 Yes 10mg Take 10 mg [facility] 10 mg 4-08 by mouth ity of tablet 16:30: daily. [place] [address] Medical Branch cetirizine 2020-0 Yes 10mg Take 10 mg U nivers (ZYRTEC) 10 4-08 by mouth ity of mg tablet 16:30: daily. [place] [address] Medical Branch albuterol-i 2020-0 Yes 1{puff} Inhale 1 [facility] pratropium 4-08 Puff as ity of 20-100 16:30: needed for [place] mcg/actuati 32 Wheezing Medi janett on inhaler or Branch Shortness of Breath. spironolact 2020-0 Yes 25mg Take 25 mg [facility] one 25 mg 4-08 by mouth 2 ity of tablet 16:30: (two) [place] 32 times Medical daily. Branch gabapentin 2020-0 Yes 100mg Take 100 Un aileen 100 mg 4-08 mg by ity of capsule 16:30: mouth at [place] [address] bedtime. Medical Branch ferrous 2020-0 Yes 325mg [...] in ity o f 50 16:30: each [place] mcg/Actuati 32 nostril Medic al on nasal daily. Branch spray latanoprost 2020-0 Yes 1[drp] Place 1 U nivers (XALATAN) 4-08 Drop in ity of 0.005 % 16:30: both eyes [place] ophthalmic 32 every Medical drops evening. Branch secukinumab 2020-0 Yes 150mg inject 150 [facility] (COSENTYX) 4-08 mg under ity o f 150 mg/mL 16:30: [place] skin [place] syringe 32 weekly. Medica l Branch omeprazole 2020-0 Yes 40mg Take 40 mg U nivers 40 mg 4-08 by mouth ity of capsule 16:30: daily. [place] [address] Medical Branch DULoxetine 2020-0 Yes 30mg Take 30 mg U nivers 30 mg 4-08 by mouth ity of capsule 16:30: daily. [place] [address] Medical Branch hydroCHLORO 2020-0 Yes 12.5mg Take 12.5 [facility] thiazide 4-08 mg by ity of 12.5 mg 16:30: mouth [place] capsule 32 daily. Medical Branch montelukast 2020-0 Yes 10mg Take 10 mg [facility] 10 mg 4-08 by mouth ity of tablet 16:30: daily. [address] Branch cetirizine 2020-0 Yes 10mg Take 10 mg U nivers (ZYRTEC) 10 4-08 by mouth ity of mg tablet 16:30: daily. [place] [address] Medical Branch albuterol-i 2020-0 Yes 1{puff} Inhale 1 [facility] pratropium 4-08 Puff as ity of 20-100 16:30: needed for [place] mcg/actuati 32 Wheezing Medi janett on inhaler or Branch Shortness of Breath. spironolact 2020-0 Yes 25mg Take 25 mg [facility] one 25 mg 4-08 by mouth 2 ity of tablet 16:30: (two) [place] 32 times Medical daily. Branch gabapentin 2020-0 Yes 100mg Take 100 Un aileen 100 mg 4-08 mg by ity of capsule 16:30: mouth at [place] [address] bedtime. Medical Branch ferrous 2020-0 Yes 325mg [...] ity of 0.005 % 16:30: both eyes [place] ophthalmic every Medical drops evening. Branch secukinumab 2020-0 Yes 150mg inject 150 [facility] (COSENTYX) 4-08 mg under ity o f 150 mg/mL 16:30: [place] skin [place] syringe 32 weekly. Medica l Branch omeprazole 2020-0 Yes 40mg Take 40 mg U nivers 40 mg 4-08 by mouth ity of capsule 16:30: daily. [place] [address] Medical Branch DULoxetine 2020-0 Yes 30mg Take 30 mg U nivers 30 mg 4-08 by mouth ity of capsule 16:30: daily. [place] [address] Medical Branch hydroCHLORO 2020-0 Yes 12.5mg Take 12.5 [facility] thiazide 4-08 mg by ity of 12.5 mg 16:30: mouth [place] capsule 32 daily. Medical Branch montelukast 2020-0 Yes 10mg Take 10 mg [facility] 10 mg 4-08 by mouth ity of tablet 16:30: daily. [place] [address] Medical Branch cetirizine 2020-0 Yes 10mg Take 10 mg U nivers (ZYRTEC) 10 4-08 by mouth ity of mg tablet 16:30: daily. [place] [address] Medical Branch albuterol-i 2020-0 Yes 1{puff} Inhale 1 [facility] pratropium 4-08 Puff as ity of 20-100 16:30: needed for [facility]/[place] [address] Wheezing Medi janett on inhaler or Branch Shortness of Breath. spironolact 2020-0 Yes 25mg Take 25 mg [facility] one 25 mg 4-08 by mouth 2 ity of tablet 16:30: (two) [place] [address] times Medical daily. Branch gabapentin 2020-0 Yes 100mg Take 100 Un aileen 100 mg 4-08 mg by ity of capsule 16:30: mouth at [place] [address] bedtime. Medical Branch ferrous 2020-0 Yes 325mg Take 325 Unive rs sulfate 325 4-08 mg by ity of mg (65 mg 16:30: mouth 3 [place] iron) 32 (three) Medical tablet times [place] daily with meals. metoprolol 2020-0 Yes 100mg Take 100 Un aileen tartrate 4-08 mg by ity of (LOPRESSOR) 16:30: mouth 2 [place] as 50 mg 32 (two) Medical tablet times [place] daily. fexofenadin 2020-0 Yes 180mg Take 180 U nivers e (ERIKA) 4-08 mg by ity of 180 mg 16:30: mouth [place] tablet 32 daily. Medical Branch fluticasone 2020-0 Yes 2{spray Use 2 Un a[facility]en (FLONASE) 4-08 } Sprays in ity o f 50 16:30: each [place] mcg/Actuati 32 nostril Medic al on nasal daily. Branch spray latanoprost 2020-0 Yes 1[drp] Place 1 U nivers (XALATAN) 4-08 Drop in ity of 0.005 % 16:30: both eyes [place] ophthalmic 32 every Medical drops evening. Branch secukinumab 2020-0 Yes 150mg inject 150 [facility] (COSENTYX) 4-08 mg under ity o f 150 mg/mL 16:30: the skin [place] syringe 32 weekly. Medica l Branch omeprazole 2020-0 Yes 40mg Take 40 mg U nivers 40 mg 4-08 by mouth ity of capsule 16:30: daily. [place] [address] Medical Branch DULoxetine 2020-0 Yes 30mg Take 30 mg U nivers 30 mg 4-08 by mouth ity of capsule 16:30: daily. [place] [address] Medical Branch hydroCHLORO 2020-0 Yes 12.5mg Take 12.5 [facility] thiazide 4-08 mg by ity of 12.5 mg 16:30: mouth [place] capsule 32 daily. Medical Branch montelukast 2020-0 Yes 10mg Take 10 mg [facility] 10 mg 4-08 by mouth ity of tablet 16:30: daily. [place] [address] Medical Branch cetirizine 2020-0 Yes 10mg Take 10 mg U nivers (ZYRTEC) 10 4-08 by mouth ity of mg tablet 16:30: daily. [place] [address] Medical Branch albuterol-i 2020-0 Yes 1{puff} Inhale 1 [facility] pratropium 4-08 Puff as ity of 20-100 16:30: needed for [place] mcg/actuati 32 Wheezing Medi janett on inhaler or Branch Shortness of Breath. spironolact 2020-0 Yes 25mg Take 25 mg [facility] one 25 mg 4-08 by mouth 2 ity of tablet 16:30: (two) [place] 32 times Medical daily. Branch gabapentin 2020-0 Yes 100mg Take 100 Un aileen 100 mg 4-08 mg by ity of capsule 16:30: mouth at [place] [address] bedtime. Medical Branch ferrous 2020-0 Yes 325mg Take 325 Unive rs sulfate 325 4-08 mg by ity of mg (65 mg 16:30: mouth 3 [place] iron) 32 (three) Medical tablet times [place] daily with meals. metoprolol 2020-0 Yes 100mg Take 100 Un aileen tartrate 4-08 mg by ity of (LOPRESSOR) 16:30: mouth 2 [place] as 50 mg 32 (two) Medical tablet times [place] daily. fexofenadin 2020-0 Yes 180mg Take 180 [...] ity of 0.005 % 16:30: both eyes [place] ophthalmic 32 every Medical drops evening. Branch secukinumab 2020-0 Yes 150mg inject 150 [facility] (COSENTYX) 4-08 mg under ity o f 150 mg/mL 16:30: the skin [place] syringe 32 weekly. Medica l Branch omeprazole 2020-0 Yes 40mg Take 40 mg U nivers 40 mg 4-08 by mouth ity of capsule 16:30: daily. [address] Branch DULoxetine 2020-0 Yes 30mg Take 30 mg U nivers 30 mg 4-08 by mouth ity of capsule 16:30: daily. [address] Branch hydroCHLORO 2020-0 Yes 12.5mg Take 12.5 [facility] thiazide 4-08 mg by ity of 12.5 mg 16:30: mouth [place] capsule 32 daily. Medical Branch montelukast 2020-0 Yes 10mg Take 10 mg [facility] 10 mg 4-08 by mouth ity of tablet 16:30: daily. [address] Branch cetirizine 2020-0 Yes 10mg Take 10 mg U nivers (ZYRTEC) 10 4-08 by mouth ity of mg tablet 16:30: daily. [place] [address] Medical Branch albuterol-i 2020-0 Yes 1{puff} Inhale [...] by ity of capsule 16:30: mouth at [place] [address] bedtime. Medical Branch ferrous 2020-0 Yes 325mg Take 325 Unive rs sulfate 325 4-08 mg by ity of mg (65 mg 16:30: mouth 3 [place] iron) 32 (three) Medical tablet times [facility] daily with meals. metoprolol 2020-0 Yes 100mg Take 100 Un aileen tartrate 4-08 mg by ity of (LOPRESSOR) 16:30: mouth 2 [place] as 50 mg 32 (two) Medical tablet times [place] daily. fexofenadin 2020-0 Yes 180mg Take 180 U nivers e (ERIKA) 4-08 mg by ity of 180 mg 16:30: mouth [place] tablet 32 daily. Medical Branch fluticasone 2020-0 Yes 2{spray Use 2 Un aileen (FLONASE) 4-08 } Sprays in ity o f 50 16:30: each [place] mcg/Actuati 32 nostril Medic al on nasal daily. Branch spray latanoprost 2020-0 Yes 1[drp] Place 1 U nivers (XALATAN) 4-08 Drop in ity of 0.005 % 16:30: both eyes [place] ophthalmic 32 every Medical drops evening. Branch secukinumab 2020-0 Yes 150mg inject 150 [facility] (COSENTYX) 4-08 mg under ity o f 150 mg/mL 16:30: the skin [place] syringe 32 weekly. Medica l Branch omeprazole 2020-0 Yes 40mg Take 40 mg U nivers 40 mg 4-08 by mouth ity of capsule 16:30: daily. [place] [address] Medical Branch DULoxetine 2020-0 Yes 30mg Take 30 mg U nivers 30 mg 4-08 by mouth ity of capsule 16:30: daily. [place] [address] Medical Branch hydroCHLORO 2020-0 Yes 12.5mg Take 12.5 [facility] thiazide 4-08 mg by ity of 12.5 mg 16:30: mouth [place] capsule 32 daily. Medical Branch montelukast 2020-0 Yes 10mg Take 10 mg [facility] 10 mg 4-08 by mouth ity of tablet 16:30: daily. [place] [address] Medical Branch cetirizine 2020-0 Yes 10mg Take 10 mg U nivers (ZYRTEC) 10 4-08 by mouth ity of mg tablet 16:30: daily. [place] [address] Medical Branch albuterol-i 2020-0 Yes 1{puff} Inhale 1 [facility] pratropium 4-08 Puff as ity of 20-100 16:30: needed for [place] mcg/actuati 32 Wheezing Medi janett on inhaler or Branch Shortness of Breath. spironolact 2020-0 Yes 25mg Take 25 mg [facility] one 25 mg 4-08 by mouth 2 ity of tablet 16:30: (two) [place] 32 times Medical daily. Branch gabapentin 2020-0 Yes 100mg Take 100 Un aileen 100 mg 4-08 mg by ity of capsule 16:30: mouth at [place] [address] bedtime. Medical Branch ferrous 2020-0 Yes 325mg [...] in ity o f 50 16:30: each [place] mcg/Actuati 32 nostril Medic al on nasal daily. Branch spray latanoprost 2020-0 Yes 1[drp] Place 1 U nivers (XALATAN) 4-08 Drop in ity of 0.005 % 16:30: both eyes [place] ophthalmic 32 every Medical drops evening. Branch secukinumab 2020-0 Yes 150mg inject 150 [facility] (COSENTYX) 4-08 mg under ity o f 150 mg/mL 16:30: the skin [place] syringe 32 weekly. Medica l Branch omeprazole 2020-0 Yes 40mg Take 40 mg U nivers 40 mg 4-08 by mouth ity of capsule 16:30: daily. [place] [address] Medical Branch DULoxetine 2020-0 Yes 30mg Take 30 mg U nivers 30 mg 4-08 by mouth ity of capsule 16:30: daily. [place] [address] Medical Branch hydroCHLORO 2020-0 Yes 12.5mg Take 12.5 [facility] thiazide 4-08 mg by ity of 12.5 mg 16:30: mouth [place] capsule 32 daily. Medical Branch montelukast 2020-0 Yes 10mg Take 10 mg [facility] 10 mg 4-08 by mouth ity of tablet 16:30: daily. [place] [address] Medical Branch cetirizine 2020-0 Yes 10mg Take 10 mg U nivers (ZYRTEC) 10 4-08 by mouth ity of mg tablet 16:30: daily. [place] [address] Medical Branch albuterol-i 2020-0 Yes 1{puff} Inhale 1 [facility] pratropium 4-08 Puff as ity of 20-100 16:30: needed for [facility] Wheezing Medi janett on inhaler or Branch Shortness of Breath. spironolact 2020-0 Yes 25mg Take 25 mg [facility] one 25 mg 4-08 by mouth 2 ity of tablet 16:30: (two) [place] [address] times Medical daily. Branch gabapentin 2020-0 Yes 100mg Take 100 Un aileen 100 mg 4-08 mg by ity of capsule 16:30: mouth at [place] [address] bedtime. Medical Branch ferrous 2020-0 Yes 325mg Take 325 Unive rs sulfate 325 4-08 mg by ity of mg (65 mg 16:30: mouth 3 [place] iron) 32 (three) Medical tablet times [facility] daily with meals. metoprolol 2020-0 Yes 100mg [...] in ity o f 50 16:30: each [place] mcg/Actuati 32 nostril Medic al on nasal daily. Branch spray latanoprost 2020-0 Yes 1[drp] Place 1 U nivers (XALATAN) 4-08 Drop in ity of 0.005 % 16:30: both eyes [place] ophthalmic 32 every Medical drops evening. Branch secukinumab 2020-0 Yes 150mg inject 150 [facility] (COSENTYX) 4-08 mg under ity o f 150 mg/mL 16:30: the skin [place] syringe 32 weekly. Medica l Branch omeprazole 2020-0 Yes 40mg Take 40 mg U nivers 40 mg 4-08 by mouth ity of capsule 16:30: daily. [place] [address] Medical Branch DULoxetine 2020-0 Yes 30mg Take 30 mg U nivers 30 mg 4-08 by mouth ity of capsule 16:30: daily. [place] [address] Medical Branch hydroCHLORO 2020-0 Yes 12.5mg Take 12.5 [facility] thiazide 4-08 mg by ity of 12.5 mg 16:30: mouth [place] capsule 32 daily. Medical Branch montelukast 2020-0 Yes 10mg Take 10 mg [facility] 10 mg 4-08 by mouth ity of tablet 16:30: daily. [place] [address] Medical Branch cetirizine 2020-0 Yes 10mg Take 10 mg U nivers (ZYRTEC) 10 4-08 by mouth ity of mg tablet 16:30: daily. [place] [address] Medical Branch albuterol-i 2020-0 Yes 1{puff} Inhale 1 [facility] pratropium 4-08 Puff as ity of 20-100 16:30: needed for [place] mcg/actuati 32 Wheezing Medi janett on inhaler or Branch Shortness of Breath. spironolact 2020-0 Yes 25mg Take 25 mg [facility] one 25 mg 4-08 by mouth 2 ity of tablet 16:30: (two) [place] [address] times Medical daily. Branch gabapentin 2020-0 Yes 100mg Take 100 Un aileen 100 mg 4-08 mg by ity of capsule 16:30: mouth at [place] [address] bedtime. Medical Branch ferrous 2020-0 Yes 325mg Take 325 Unive rs sulfate 325 4-08 mg by ity of mg (65 mg 16:30: mouth 3 [place] iron) 32 (three) Medical tablet times [facility] daily with meals. metoprolol 2020-0 Yes 100mg Take 100 Un aileen tartrate 4-08 mg by ity of (LOPRESSOR) 16:30: mouth 2 [place] as 50 mg 32 (two) Medical tablet times [place] daily. fexofenadin 2020-0 Yes 180mg Take 180 [...] ity of 0.005 % 16:30: both eyes [place] ophthalmic 32 every Medical drops evening. Branch secukinumab 2019-0 Yes 150mg inject 150 [facility] (COSENTYX) 4-08 mg under ity o f 150 mg/mL 16:30: the skin [place] syringe 32 weekly. Medica l Branch omeprazole 2019-0 Yes 40mg Take 40 mg U nivers 40 mg 4-08 by mouth ity of capsule 16:30: daily. [address] DULoxetine 2020-0 Yes 30mg Take 30 mg U nivers 30 mg 4-08 by mouth ity of capsule 16:30: daily. [address] Branch hydroCHLORO 2020-0 Yes 12.5mg Take 12.5 [facility] thiazide 4-08 mg by ity of 12.5 mg 16:30: mouth [place] capsule 32 daily. Medical Branch montelukast 2020-0 Yes 10mg Take 10 mg [facility] 10 mg 4-08 by mouth ity of tablet 16:30: daily. [address] Branch cetirizine 2020-0 Yes 10mg Take 10 mg U nivers (ZYRTEC) 10 4-08 by mouth ity of mg tablet 16:30: daily. [address] Branch albuterol-i 2020-0 Yes 1{puff} Inhale [...] by ity of capsule 16:30: mouth at [place] [address] bedtime. Medical Branch ferrous 2020-0 Yes 325mg Take 325 Unive rs sulfate 325 4-08 mg by ity of mg (65 mg 16:30: mouth 3 [place] iron) 32 (three) Medical tablet times Branch daily with meals. metoprolol 2020-0 Yes 100mg Take 100 Un aileen tartrate 4-08 mg by ity of (LOPRESSOR) 16:30: mouth 2 [place] as 50 mg 32 (two) Medical tablet times [place] daily. fexofenadin 2020-0 Yes 180mg Take 180 [...] by mouth ity of capsule 16:30: daily. [place] [address] Medical Branch DULoxetine 2020-0 Yes 30mg Take 30 mg U nivers 30 mg 4-08 by mouth ity of capsule 16:30: daily. [place] [address] Medical Branch hydroCHLORO 2020-0 Yes 12.5mg Take 12.5 [facility] thiazide 4-08 mg by ity of 12.5 mg 16:30: mouth [place] capsule 32 daily. Medical Branch montelukast 2020-0 Yes 10mg Take 10 mg [facility] 10 mg 4-08 by mouth ity of tablet 16:30: daily. [place] [address] Medical Branch cetirizine 2020-0 Yes 10mg Take 10 mg U nivers (ZYRTEC) 10 4-08 by mouth ity of mg tablet 16:30: daily. [place] [address] Medical Branch albuterol-i 2020-0 Yes 1{puff} Inhale 1 [facility] pratropium 4-08 Puff as ity of 20-100 16:30: needed for [place] mcg/actuati 32 Wheezing Medi janett on inhaler or Branch Shortness of Breath. spironolact 2020-0 Yes 25mg Take 25 mg [facility] one 25 mg 4-08 by mouth 2 ity of tablet 16:30: (two) [place] 32 times Medical daily. Branch gabapentin 2020-0 Yes 100mg Take 100 Un aileen 100 mg 4-08 mg by ity of capsule 16:30: mouth at [place] [address] bedtime. Medical Branch ferrous 2020-0 Yes 325mg [...] by mouth ity of capsule 16:30: daily. [place] [address] Medical Branch DULoxetine 2020-0 Yes 30mg Take 30 mg U nivers 30 mg 4-08 by mouth ity of capsule 16:30: daily. [place] [address] Medical Branch hydroCHLORO 2020-0 Yes 12.5mg Take 12.5 [facility] thiazide 4-08 mg by ity of 12.5 mg 16:30: mouth [place] capsule 32 daily. Medical Branch montelukast 2020-0 Yes 10mg Take 10 mg [facility] 10 mg 4-08 by mouth ity of tablet 16:30: daily. [place] [address] Medical Branch cetirizine 2020-0 Yes 10mg Take 10 mg U nivers (ZYRTEC) 10 4-08 by mouth ity of mg tablet 16:30: daily. [place] [address] Medical Branch albuterol-i 2020-0 Yes 1{puff} Inhale 1 [facility] pratropium 4-08 Puff as ity of 20-100 16:30: needed for [facility]/actuati 32 Wheezing Medi janett on inhaler or Branch Shortness of Breath. spironolact 2020-0 Yes 25mg Take 25 mg [facility] one 25 mg 4-08 by mouth 2 ity of tablet 16:30: (two) [place] [address] times Medical daily. Branch gabapentin 2020-0 Yes 100mg Take 100 Un aileen 100 mg 4-08 mg by ity of capsule 16:30: mouth at [place] [address] bedtime. Medical Branch ferrous 2020-0 Yes 325mg [...] ity of 0.005 % 16:30: both eyes [place] ophthalmic every Medical drops evening. Branch secukinumab 2020-0 Yes 150mg inject 150 Univers (COSENTYX) 4-08 mg under ity o f 150 mg/mL 16:30: [facility] Medica l Branch omeprazole 2020-0 Yes 40mg Take 40 mg U nivers 40 mg 4-08 by mouth ity of capsule 16:30: daily. [place] [address] Medical Branch DULoxetine 2020-0 Yes 30mg Take 30 mg U nivers 30 mg 4-08 by mouth ity of capsule 16:30: daily. [place] [address] Medical Branch hydroCHLORO 2020-0 Yes 12.5mg Take 12.5 [facility] thiazide 4-08 mg by ity of 12.5 mg 16:30: mouth [place] capsule 32 daily. Medical Branch montelukast 2020-0 Yes 10mg Take 10 mg [facility] 10 mg 4-08 by mouth ity of tablet 16:30: daily. [place] [address] Medical Branch cetirizine 2020-0 Yes 10mg Take 10 mg U nivers (ZYRTEC) 10 4-08 by mouth ity of mg tablet 16:30: daily. [place] [address] Medical Branch albuterol-i 2020-0 Yes 1{puff} Inhale 1 [facility] pratropium 4-08 Puff as ity of 20-100 16:30: needed for [facility]/actuati 32 Wheezing Medi janett on inhaler or Branch Shortness of Breath. spironolact 2020-0 Yes 25mg Take 25 mg [facility] one 25 mg 4-08 by mouth 2 ity of tablet 16:30: (two) [place] [address] times Medical daily. Branch gabapentin 2020-0 Yes 100mg Take 100 Un aileen 100 mg 4-08 mg by ity of capsule 16:30: mouth at [place] [address] bedtime. Medical Branch ferrous 2020-0 Yes 325mg Take 325 Unive rs sulfate 325 4-08 mg by ity of mg (65 mg 16:30: mouth 3 [place] iron) (three) Medical tablet times [place] daily with meals. metoprolol 2020-0 Yes 100mg [...] ity of 0.005 % 16:30: both eyes [place] ophthalmic 32 every Medical drops evening. Branch secukinumab 2019-0 Yes 150mg inject 150 [facility] (COSENTYX) 4-08 mg under ity o f 150 mg/mL 16:30: the skin [place] syringe 32 weekly. Medica l Branch omeprazole 2019-0 Yes 40mg Take 40 mg U nivers 40 mg 4-08 by mouth ity of capsule 16:30: daily. [address] Branch DULoxetine 2020-0 Yes 30mg Take 30 mg U nivers 30 mg 4-08 by mouth ity of capsule 16:30: daily. [address] Branch hydroCHLORO 2020-0 Yes 12.5mg Take 12.5 [facility] thiazide 4-08 mg by ity of 12.5 mg 16:30: mouth [place] capsule 32 daily. [facility] Branch montelukast 2020-0 Yes 10mg Take 10 mg Univers 10 mg 4-08 by mouth ity of tablet 16:30: daily. [address] Branch cetirizine 2020-0 Yes 10mg Take 10 mg U nivers (ZYRTEC) 10 4-08 by mouth ity of mg tablet 16:30: daily. [address] Branch albuterol-i 2019-0 Yes 1{puff} Inhale [...] by ity of capsule 16:30: mouth at [place] [address] bedtime. Medical Branch ferrous 2020-0 Yes 325mg Take 325 Unive rs sulfate 325 4-08 mg by ity of mg (65 mg 16:30: mouth 3 [place] iron) 32 (three) Medical tablet times [place] daily with meals. metoprolol 2020-0 Yes 100mg Take 100 Un aileen tartrate 4-08 mg by ity of (LOPRESSOR) 16:30: mouth 2 [place] 50 mg 32 (two) Medical tablet times [place] daily. fexofenadin 2020-0 Yes 180mg Take 180 U nivers e (ERIKA) 4-08 mg by ity of 180 mg 16:30: mouth [place] tablet 32 daily. Medical Branch fluticasone 2020-0 Yes 2{spray Use 2 Un aileen (FLONASE) 4-08 } Sprays in ity o f 50 16:30: each [place] mcg/Actuati nostril Medic al on nasal daily. Branch spray latanoprost 2019-0 Yes 1[drp] Place 1 U nivers (XALATAN) 4-08 Drop in ity of 0.005 % 16:30: both eyes [place] ophthalmic 32 every Medical drops evening. Branch secukinumab 2019-0 Yes 150mg inject 150 [facility] (COSENTYX) 4-08 mg under ity o f 150 mg/mL 16:30: [place] skin [place] syringe 32 weekly. Medica l Branch omeprazole 2019-0 Yes 40mg Take 40 mg U nivers 40 mg 4-08 by mouth ity of capsule 16:30: daily. [place] [address] Medical Branch DULoxetine 2020-0 Yes 30mg Take 30 mg U nivers 30 mg 4-08 by mouth ity of capsule 16:30: daily. [address] Branch hydroCHLORO 2020-0 Yes 12.5mg Take 12.5 [facility] thiazide 4-08 mg by ity of 12.5 mg 16:30: mouth [place] capsule 32 daily. Medical Branch montelukast 2020-0 Yes 10mg Take 10 mg [facility] 10 mg 4-08 by mouth ity of tablet 16:30: daily. [place] [address] Medical Branch cetirizine 2020-0 Yes 10mg Take 10 mg U nivers (ZYRTEC) 10 4-08 by mouth ity of mg tablet 16:30: daily. [place] [address] Medical Branch albuterol-i 2020-0 Yes 1{puff} Inhale 1 [facility] pratropium 4-08 Puff as ity of 20-100 16:30: needed for [place] mcg/actuati 32 Wheezing Medi janett on inhaler or Branch Shortness of Breath. spironolact 2020-0 Yes 25mg Take 25 mg [facility] one 25 mg 4-08 by mouth 2 ity of tablet 16:30: (two) [place] 32 times Medical daily. Branch gabapentin 2020-0 Yes 100mg Take 100 Un aileen 100 mg 4-08 mg by ity of capsule 16:30: mouth at [place] [address] bedtime. Medical Branch ferrous 2020-0 Yes 325mg Take 325 Unive rs sulfate 325 4-08 mg by ity of mg (65 mg 16:30: mouth 3 [place] iron) 32 (three) Medical tablet times [place] daily with meals. metoprolol 2020-0 Yes 100mg [...] in ity o f 50 16:30: each [place] mcg/Actuati 32 nostril Medic al on nasal daily. Branch spray latanoprost 2020-0 Yes 1[drp] Place 1 U nivers (XALATAN) 4-08 Drop in ity of 0.005 % 16:30: both eyes [place] ophthalmic 32 every Medical drops evening. Branch secukinumab 2020-0 Yes 150mg inject 150 [facility] (COSENTYX) 4-08 mg under ity o f 150 mg/mL 16:30: [place] skin [place] syringe 32 weekly. Medica l Branch omeprazole 2020-0 Yes 40mg Take 40 mg U nivers 40 mg 4-08 by mouth ity of capsule 16:30: daily. [place] [address] Medical Branch DULoxetine 2020-0 Yes 30mg Take 30 mg U nivers 30 mg 4-08 by mouth ity of capsule 16:30: daily. [address] Branch hydroCHLORO 2020-0 Yes 12.5mg Take 12.5 [facility] thiazide 4-08 mg by ity of 12.5 mg 16:30: mouth [place] capsule 32 daily. Medical Branch montelukast 2020-0 Yes 10mg Take 10 mg [facility] 10 mg 4-08 by mouth ity of tablet 16:30: daily. [address] Branch cetirizine 2020-0 Yes 10mg Take 10 mg U nivers (ZYRTEC) 10 4-08 by mouth ity of mg tablet 16:30: daily. [address] Branch albuterol-i 2020-0 Yes 1{puff} Inhale 1 [facility] pratropium 4-08 Puff as ity of 20-100 16:30: needed for [place] mcg/actuati 32 Wheezing Medi janett on inhaler or Branch Shortness of Breath. spironolact 2020-0 Yes 25mg Take 25 mg [facility] one 25 mg 4-08 by mouth 2 ity of tablet 16:30: (two) [place] 32 times Medical daily. Branch gabapentin 2020-0 Yes 100mg Take 100 Un aileen 100 mg 4-08 mg by ity of capsule 16:30: mouth at [place] [address] bedtime. Medical Branch ferrous 2020-0 Yes 325mg [...] in ity o f 50 16:30: each [place] mcg/Actuati 32 nostril Medic al on nasal daily. Branch spray latanoprost 2020-0 Yes 1[drp] Place 1 U nivers (XALATAN) 4-08 Drop in ity of 0.005 % 16:30: both eyes [place] ophthalmic every Medical drops evening. Branch secukinumab 2020-0 Yes 150mg inject 150 [facility] (COSENTYX) 4-08 mg under ity o f 150 mg/mL 16:30: [place] skin [place] syringe 32 weekly. Medica l Branch omeprazole 2020-0 Yes 40mg Take 40 mg U nivers 40 mg 4-08 by mouth ity of capsule 16:30: daily. [place] [address] Medical Branch DULoxetine 2020-0 Yes 30mg Take 30 mg U nivers 30 mg 4-08 by mouth ity of capsule 16:30: daily. [address] Branch hydroCHLORO 2020-0 Yes 12.5mg Take 12.5 [facility] thiazide 4-08 mg by ity of 12.5 mg 16:30: mouth [place] capsule 32 daily. Medical Branch montelukast 2020-0 Yes 10mg Take 10 mg [facility] 10 mg 4-08 by mouth ity of tablet 16:30: daily. [place] [address] Medical Branch cetirizine 2020-0 Yes 10mg Take 10 mg U nivers (ZYRTEC) 10 4-08 by mouth ity of mg tablet 16:30: daily. [place] [address] Medical Branch albuterol-i 2020-0 Yes 1{puff} Inhale 1 [facility] pratropium 4-08 Puff as ity of 20-100 16:30: needed for [facility] Wheezing Medi janett on inhaler or Branch Shortness of Breath. spironolact 2020-0 Yes 25mg Take 25 mg [facility] one 25 mg 4-08 by mouth 2 ity of tablet 16:30: (two) [place] [address] times Medical daily. Branch gabapentin 2020-0 Yes 100mg Take 100 Un aileen 100 mg 4-08 mg by ity of capsule 16:30: mouth at [place] [address] bedtime. Medical Branch ferrous 2020-0 Yes 325mg [...] ity of 0.005 % 16:30: both eyes [place] ophthalmic 32 every Medical drops evening. Branch secukinumab 2020-0 Yes 150mg inject 150 Univers (COSENTYX) 4-08 mg under ity o f 150 mg/mL 16:30: [place] skin [place] syringe 32 weekly. Medica l Branch omeprazole 2020-0 Yes 40mg Take 40 mg U nivers 40 mg 4-08 by mouth ity of capsule 16:30: daily. [place] [address] Medical Branch DULoxetine 2020-0 Yes 30mg Take 30 mg U nivers 30 mg 4-08 by mouth ity of capsule 16:30: daily. [address] Branch hydroCHLORO 2020-0 Yes 12.5mg Take 12.5 [facility] thiazide 4-08 mg by ity of 12.5 mg 16:30: mouth [place] capsule 32 daily. Medical Branch montelukast 2020-0 Yes 10mg Take 10 mg [facility] 10 mg 4-08 by mouth ity of tablet 16:30: daily. [address] Branch cetirizine 2020-0 Yes 10mg Take 10 mg U nivers (ZYRTEC) 10 4-08 by mouth ity of mg tablet 16:30: daily. [place] [address] Medical Branch albuterol-i 2020-0 Yes 1{puff} Inhale 1 [facility] pratropium 4-08 Puff as ity of 20-100 16:30: needed for [place] mcg/actuati 32 Wheezing Medi janett on inhaler or Branch Shortness of Breath. spironolact 2020-0 Yes 25mg Take 25 mg [facility] one 25 mg 4-08 by mouth 2 ity of tablet 16:30: (two) [place] 32 times Medical daily. Branch gabapentin 2020-0 Yes 100mg Take 100 Un aileen 100 mg 4-08 mg by ity of capsule 16:30: mouth at [place] [address] bedtime. Medical Branch ferrous 2020-0 Yes 325mg Take 325 Unive rs sulfate 325 4-08 mg by ity of mg (65 mg 16:30: mouth 3 [place] iron) 32 (three) Medical tablet times [place] daily with meals. metoprolol 2020-0 Yes 100mg Take 100 Un aileen tartrate 4-08 mg by ity of (LOPRESSOR) 16:30: mouth 2 [place] as 50 mg 32 (two) Medical tablet times [place] daily. fexofenadin 2020-0 Yes 180mg Take 180 [...] ity of 0.005 % 16:30: both eyes [place] ophthalmic 32 every Medical drops evening. Branch secukinumab 2020-0 Yes 150mg inject 150 [facility] (COSENTYX) 4-08 mg under ity o f 150 mg/mL 16:30: the skin [place] syringe 32 weekly. Medica l Branch omeprazole 2020-0 Yes 40mg Take 40 mg U nivers 40 mg 4-08 by mouth ity of capsule 16:30: daily. [address] DULoxetine 2020-0 Yes 30mg Take 30 mg U nivers 30 mg 4-08 by mouth ity of capsule 16:30: daily. [address] Branch hydroCHLORO 2020-0 Yes 12.5mg Take 12.5 [facility] thiazide 4-08 mg by ity of 12.5 mg 16:30: mouth [place] capsule 32 daily. Medical Branch montelukast 2020-0 Yes 10mg Take 10 mg [facility] 10 mg 4-08 by mouth ity of tablet 16:30: daily. [address] cetirizine 2020-0 Yes 10mg Take 10 mg U nivers (ZYRTEC) 10 4-08 by mouth ity of mg tablet 16:30: daily. [place] 32 Medical Branch albuterol-i 2020-0 Yes 1{puff} Inhale 1 [facility] pratropium 4-08 Puff as ity of 20-100 16:30: needed for [place] mcg/actuati 32 Wheezing Medi janett on inhaler or Branch Shortness of Breath. spironolact 2020-0 Yes 25mg Take 25 mg [facility] one 25 mg 4-08 by mouth 2 ity of tablet 16:30: (two) [place] 32 times Medical daily. Branch gabapentin 2020-0 Yes 100mg Take 100 Un aileen 100 mg 4-08 mg by ity of capsule 16:30: mouth at [place] [address] bedtime. Medical Branch ferrous 2020-0 Yes 325mg Take 325 Unive rs sulfate 325 4-08 mg by ity of mg (65 mg 16:30: mouth 3 [place] iron) 32 (three) Medical tablet times [place] daily with meals. metoprolol 2020-0 Yes 100mg Take 100 Un aileen tartrate 4-08 mg by ity of (LOPRESSOR) 16:30: mouth 2 [place] as 50 mg 32 (two) Medical tablet times [place] daily. fexofenadin 2020-0 Yes 180mg Take 180 U nivers e (ERIKA) 4-08 mg by ity of 180 mg 16:30: mouth [place] tablet 32 daily. Medical Branch fluticasone 2020-0 Yes 2{spray Use 2 Un aileen (FLONASE) 4-08 } Sprays in ity o f 50 16:30: each [place] mcg/Actuati 32 nostril Medic al on nasal daily. Branch spray latanoprost 2020-0 Yes 1[drp] Place 1 U nivers (XALATAN) 4-08 Drop in ity of 0.005 % 16:30: both eyes [place] ophthalmic 32 every Medical drops evening. Branch secukinumab 2020-0 Yes 150mg inject 150 [facility] (COSENTYX) 4-08 mg under ity o f 150 mg/mL 16:30: the skin [place] syringe 32 weekly. Medica l Branch omeprazole 2020-0 Yes 40mg Take 40 mg U nivers 40 mg 4-08 by mouth ity of capsule 16:30: daily. [address] DULoxetine 2020-0 Yes 30mg Take 30 [...] by mouth ity of tablet 16:30: daily. [address] Branch cetirizine 2020-0 Yes 10mg Take 10 mg U nivers (ZYRTEC) 10 4-08 by mouth ity of mg tablet 16:30: daily. [place] [address] Medical Branch albuterol-i 2020-0 Yes 1{puff} Inhale 1 [facility] pratropium 4-08 Puff as ity of 20-100 16:30: needed for [facility]/actuati 32 Wheezing Medi janett on inhaler or Branch Shortness of Breath. spironolact 2020-0 Yes 25mg Take 25 mg [facility] one 25 mg 4-08 by mouth 2 ity of tablet 16:30: (two) [place] [address] times Medical daily. Branch gabapentin 2020-0 Yes 100mg Take 100 Un aileen 100 mg 4-08 mg by ity of capsule 16:30: mouth at [place] [address] bedtime. Medical Branch ferrous 2020-0 Yes 325mg Take 325 Unive rs sulfate 325 4-08 mg by ity of mg (65 mg 16:30: mouth 3 [place] iron) 32 (three) Medical tablet times [place] daily with meals. metoprolol 2020-0 Yes 100mg Take 100 Un aileen tartrate 4-08 mg by ity of (LOPRESSOR) 16:30: mouth 2 [place] as 50 mg 32 (two) Medical tablet times [place] daily. fexofenadin 2020-0 Yes 180mg Take 180 U nivers e (ERIKA) 4-08 mg by ity of 180 mg 16:30: mouth [place] tablet 32 daily. Medical Branch fluticasone 2020-0 Yes 2{spray Use 2 Un aileen (FLONASE) 4-08 } Sprays in ity o f 50 16:30: each [place] mcg/Actuati 32 nostril Medic al on nasal daily. Branch spray latanoprost 2020-0 Yes 1[drp] Place 1 U nivers (XALATAN) 4-08 Drop in ity of 0.005 % 16:30: both eyes [place] ophthalmic 32 every Medical drops evening. Branch secukinumab 2020-0 Yes 150mg inject 150 [facility] (COSENTYX) 4-08 mg under ity o f 150 mg/mL 16:30: the skin [place] syringe 32 weekly. Medica l Branch omeprazole 2020-0 Yes 40mg Take 40 mg U nivers 40 mg 4-08 by mouth ity of capsule 16:30: daily. [place] [address] Medical Branch DULoxetine 2020-0 Yes 30mg Take 30 mg U nivers 30 mg 4-08 by mouth ity of capsule 16:30: daily. [place] [address] Medical Branch hydroCHLORO 2020-0 Yes 12.5mg Take 12.5 [facility] thiazide 4-08 mg by ity of 12.5 mg 16:30: mouth [place] capsule 32 daily. Medical Branch montelukast 2020-0 Yes 10mg Take 10 mg [facility] 10 mg 4-08 by mouth ity of tablet 16:30: daily. [address] Branch cetirizine 2020-0 Yes 10mg Take 10 mg U nivers (ZYRTEC) 10 4-08 by mouth ity of mg tablet 16:30: daily. [place] [address] Medical Branch albuterol-i 2020-0 Yes 1{puff} Inhale 1 [facility] pratropium 4-08 Puff as ity of 20-100 16:30: needed for [facility] 32 Wheezing Medi janett on inhaler or Branch Shortness of Breath. spironolact 2020-0 Yes 25mg Take 25 mg [facility] one 25 mg 4-08 by mouth 2 ity of tablet 16:30: (two) [place] [address] times Medical daily. Branch gabapentin 2020-0 Yes 100mg Take 100 Un aileen 100 mg 4-08 mg by ity of capsule 16:30: mouth at [place] [address] bedtime. Medical Branch ferrous 2020-0 Yes 325mg Take 325 Unive rs sulfate 325 4-08 mg by ity of mg (65 mg 16:30: mouth 3 [place] iron) 32 (three) Medical tablet times [place] daily with meals. metoprolol 2020-0 Yes 100mg Take 100 Un aileen tartrate 4-08 mg by ity of (LOPRESSOR) 16:30: mouth 2 [place] as 50 mg 32 (two) Medical tablet times [place] daily. fexofenadin 2020-0 Yes 180mg Take 180 U nivers e (ERIKA) 4-08 mg by ity of 180 mg 16:30: mouth [place] tablet 32 daily. Medical Branch fluticasone 2020-0 Yes 2{spray Use 2 Un aileen (FLONASE) 4-08 } Sprays in ity o f 50 16:30: each [place] mcg/Actuati 32 nostril Medic al on nasal daily. Branch spray latanoprost 2020-0 Yes 1[drp] Place 1 U nivers (XALATAN) 4-08 Drop in ity of 0.005 % 16:30: both eyes [place] ophthalmic 32 every Medical drops evening. Branch secukinumab 2020-0 Yes 150mg inject 150 [facility] (COSENTYX) 4-08 mg under ity o f 150 mg/mL 16:30: the skin [place] syringe 32 weekly. Medica l Branch omeprazole 2019-0 Yes 40mg Take 40 mg U nivers 40 mg 4-08 by mouth ity of capsule 16:30: daily. [place] [address] Medical Branch DULoxetine 2020-0 Yes 30mg Take 30 mg U nivers 30 mg 4-08 by mouth ity of capsule 16:30: daily. [place] [address] Medical Branch hydroCHLORO 2020-0 Yes 12.5mg Take 12.5 [facility] thiazide 4-08 mg by ity of 12.5 mg 16:30: mouth [place] capsule 32 daily. Medical Branch montelukast 2019-0 Yes 10mg Take 10 mg [facility] 10 mg 4-08 by mouth ity of tablet 16:30: daily. [place] [address] Medical Branch cetirizine 2019-0 Yes 10mg Take 10 mg U nivers (ZYRTEC) 10 4-08 by mouth ity of mg tablet 16:30: daily. [place] [address] Medical Branch albuterol-i 2020-0 Yes 1{puff} Inhale 1 [facility] pratropium 4-08 Puff as ity of 20-100 16:30: needed for [place] mcg/actuati 32 Wheezing Medi janett on inhaler or Branch Shortness of Breath. spironolact 2020-0 Yes 25mg Take 25 mg [facility] one 25 mg 4-08 by mouth 2 ity of tablet 16:30: (two) [place] [address] times Medical daily. Branch gabapentin 2020-0 Yes 100mg Take 100 Un aileen 100 mg 4-08 mg by ity of capsule 16:30: mouth at [place] [address] bedtime. Medical Branch ferrous 2020-0 Yes 325mg [...] ity of 0.005 % 16:30: both eyes [place] ophthalmic 32 every Medical drops evening. Branch secukinumab 2019-0 Yes 150mg inject 150 [facility] (COSENTYX) 4-08 mg under ity o f 150 mg/mL 16:30: the skin [place] syringe 32 weekly. Medica l Branch omeprazole 2019-0 Yes 40mg Take 40 mg U nivers 40 mg 4-08 by mouth ity of capsule 16:30: daily. [address] DULoxetine 2020-0 Yes 30mg Take 30 mg U nivers 30 mg 4-08 by mouth ity of capsule 16:30: daily. [address] Branch hydroCHLORO 2020-0 Yes 12.5mg Take 12.5 [facility] thiazide 4-08 mg by ity of 12.5 mg 16:30: mouth [place] capsule 32 daily. Medical Branch montelukast 2020-0 Yes 10mg Take 10 mg [facility] 10 mg 4-08 by mouth ity of tablet 16:30: daily. [address] cetirizine 2020-0 Yes 10mg Take 10 mg U nivers (ZYRTEC) 10 4-08 by mouth ity of mg tablet 16:30: daily. [address] albuterol-i 2020-0 Yes 1{puff} Inhale 1 [facility] pratropium 4-08 Puff as ity of 20-100 16:30: needed for [place] mcg/actuati 32 Wheezing Medi janett on inhaler or Branch Shortness of Breath. spironolact 2020-0 Yes 25mg Take 25 mg [facility] one 25 mg 4-08 by mouth 2 ity of tablet 16:30: (two) [place] 32 times Medical daily. Branch gabapentin 2020-0 Yes 100mg Take 100 Un aileen 100 mg 4-08 mg by ity of capsule 16:30: mouth at [place] [address] bedtime. Medical Branch ferrous 2020-0 Yes 325mg Take 325 Unive rs sulfate 325 4-08 mg by ity of mg (65 mg 16:30: mouth 3 [place] iron) 32 (three) Medical tablet times [place] daily with meals. metoprolol 2020-0 Yes 100mg Take 100 Un aileen tartrate 4-08 mg by ity of (LOPRESSOR) 16:30: mouth 2 [place] 50 mg 32 (two) Medical tablet times [place] daily. fexofenadin 2020-0 Yes 180mg Take 180 U nivers e (ERIKA) 4-08 mg by ity of 180 mg 16:30: mouth [place] tablet 32 daily. Medical Branch fluticasone 2020-0 Yes 2{spray Use 2 Un aileen (FLONASE) 4-08 } Sprays in ity o f 50 16:30: each [place] mcg/Actuati 32 nostril Medic al on nasal daily. Branch spray latanoprost 2019-0 Yes 1[drp] Place 1 U nivers (XALATAN) 4-08 Drop in ity of 0.005 % 16:30: both eyes [place] ophthalmic 32 every Medical drops evening. Branch secukinumab 2020-0 Yes 150mg inject 150 [facility] (COSENTYX) 4-08 mg under ity o f 150 mg/mL 16:30: the skin [place] syringe 32 weekly. Medica l Branch omeprazole 2020-0 Yes 40mg Take 40 mg U nivers 40 mg 4-08 by mouth ity of capsule 16:30: daily. [place] [address] Medical Branch DULoxetine 2020-0 Yes 30mg Take 30 mg U nivers 30 mg 4-08 by mouth ity of capsule 16:30: daily. [place] [address] Medical Branch hydroCHLORO 2020-0 Yes 12.5mg Take 12.5 [facility] thiazide 4-08 mg by ity of 12.5 mg 16:30: mouth [place] capsule 32 daily. Medical Branch montelukast 2020-0 Yes 10mg Take 10 mg [facility] 10 mg 4-08 by mouth ity of tablet 16:30: daily. [place] [address] Medical Branch cetirizine 2020-0 Yes 10mg Take 10 mg U nivers (ZYRTEC) 10 4-08 by mouth ity of mg tablet 16:30: daily. [place] [address] Medical Branch albuterol-i 2020-0 Yes 1{puff} Inhale 1 [facility] pratropium 4-08 Puff as ity of 20-100 16:30: needed for [place] mcg/actuati 32 Wheezing Medi janett on inhaler or Branch Shortness of Breath. spironolact 2020-0 Yes 25mg Take 25 mg [facility] one 25 mg 4-08 by mouth 2 ity of tablet 16:30: (two) [place] 32 times Medical daily. Branch gabapentin 2020-0 Yes 100mg Take 100 Un aileen 100 mg 4-08 mg by ity of capsule 16:30: mouth at [place] [address] bedtime. Medical Branch ferrous 2020-0 Yes 325mg Take 325 Unive rs sulfate 325 4-08 mg by ity of mg (65 mg 16:30: mouth 3 [place] iron) 32 (three) Medical tablet times [place] daily with meals. metoprolol 2020-0 Yes 100mg Take 100 Un aileen tartrate 4-08 mg by ity of (LOPRESSOR) 16:30: mouth 2 [place] 50 mg 32 (two) Medical tablet times [place] daily. fexofenadin 2020-0 Yes 180mg Take 180 U nivers e (ERIKA) 4-08 mg by ity of 180 mg 16:30: mouth [place] tablet 32 daily. Medical Branch fluticasone 2020-0 Yes 2{spray Use 2 Un aileen (FLONASE) 4-08 } Sprays in ity o f 50 16:30: each [place] mcg/Actuati 32 nostril Medic al on nasal [...] by mouth ity of capsule 16:30: daily. [place] [address] Medical Branch DULoxetine 2019-0 Yes 30mg Take 30 mg U nivers 30 mg 4-08 by mouth ity of capsule 16:30: daily. [place] [address] Medical Branch hydroCHLORO 2019-0 Yes 12.5mg Take [...] Medical times Branch daily with meals. insulin 2019-2019- No 22U inject 22 Univ ers degludec 02-21-08 Units ity of (TRESIBA 15:01: 00:00 under the [place]imit[place] as FLEXTOUCH 25 :00 skin Medical U-100) 100 daily. Branch unit/mL (3 mL) InPn sitaGLIPtin 2020- No 1{tbl} Take 1 U nivers -metformin 02-21 tablet by ity of (JANUMET 15:01: 00:00 mouth [place] XR) 25 :00 daily. Medical 50-1,000 mg Branch per tablet lisinopril 2019- No 20mg Take 20 mg Univers 20 mg 02-21-08 by mouth ity of tablet 15:01: 00:00 daily. [place] 25 :00 Medical Branch amLODIPine 2019- No 5mg Take 5 mg U nivers 5 mg tablet 02-21-08 by mouth ity of 15:01: 00:00 daily. [place] 25 :00 Medical Branch fluticasone 2019- No Inhale. Un aileen -umeclidin- 02-21-08 ity of vilanter 15:01: 00:00 [place] (TRELEGY 25 :00 Medical ELLIPTA) Branch 100-62.5-25 [...] on Thu Medical mg 02/21/20 at Branch 1999, Until Discontinu ed, Routine lisinopril 2020-0 2020- No [id number] 20mg Take 1 Univers 20 mg 02-21 9104 tablet by ity of tablet 00:00: 04:59 mouth 2 [place] 00 :00 (two) Medical times Branch daily for 30 days. lactulose 2020-0 2020- No [id number] 30mL Take 30 mL Univers 10 gram/15 02-21 by mouth ity of mL solution 00:00: 04:59 daily for [place] 00 :00 30 days. Medical Branch lisinopril 2020-0 2020- No [id number] 20mg Take 1 Univers 20 mg 02-21 9104 tablet by ity of tablet 00:00: 04:59 mouth 2 [place] 00 :00 (two) Medical times Branch daily for 30 days. lactulose 2020-0 2020- No [id number] 30mL Take 30 mL Univers 10 gram/15 02-21-09 by mouth ity of mL solution 00:00: 04:59 daily for [place] 00 :00 30 days. Medical Branch lisinopril 2020-0 2020- No [id number] 20mg Take 1 Univers 20 mg 02-21 9104 tablet by ity of tablet 00:00: 04:59 mouth 2 [place] 00 :00 (two) Medical times [place] daily for 30 days. lactulose 2020-0 2020- No [id number] 30mL Take 30 mL Univers 10 gram/15 02-21-09 by mouth ity of mL solution 00:00: 04:59 daily for [place] 00 :00 30 days. Medical Branch lisinopril 2019-0 2020- No [id number] 20mg Take 1 Univers 20 mg 02-21 9104 tablet by ity of tablet 00:00: 04:59 mouth 2 [place] 00 :00 (two) Medical times Branch daily for 30 days. lactulose 2020-0 2020- No [id number] 30mL Take 30 mL Univers 10 gram/15 02-21-09 by mouth ity of mL solution 00:00: 04:59 daily for [place] 00 :00 30 days. Medical Branch acetaminoph 2020-0 Yes 500mg 500 mg, Un aileen en 02-20 Oral, ity of (TYLENOL) 21:33: Q6HPRN, [place] tablet 500 50 Starting Medic al mg [facility] 02/21/20 Branch at 1633, Until Discontinu ed, Routine, Pain (scale 1-3), Temp > 38.5 C omeprazole 2019-0 Yes 40mg 40 mg, Unive rs (PRILOSEC) 02-20 Oral, ity of capsule 40 14:00: DAILY, [place] mg 00 First dose Medical on [facility] 02/21/20 at 0900, Until Discontinu ed KCL 2020-0 Yes 20meq 20 mEq, Univers (KLOR-CON 02-20 Oral, ity of M20) tablet 14:00: DAILY, [place] 20 mEq 00 First dose Medical on [facility] 02/21/20 at 0900, Until Discontinu ed, Routine montelukast 2020-0 Yes 10mg 10 mg, Univ ers (SINGULAIR) 02-20 Oral, ity of tablet 10 14:00: DAILY, [place] mg 00 First dose Medical on [facility] 02/21/20 at 0900, Until Discontinu ed, Routine amLODIPine 2019-0 2020- No 5mg 5 mg, Unive rs (NORVASC) 02-20- Oral, ity of tablet 5 mg 14:00: 12:25 DAILY, [place] as 00 :55 First dose Medical on [facility] 02/21/20 at 0900, Until Discontinu ed, Routine lisinopril 2020-0 2020- No 20mg 20 mg, Univ ers (PRINIVIL,Z 02-20- Oral, ity of ESTRIL) 14:00: 21:34 DAILY, [place] tablet 20 00 :24 First dose Medi janett mg on Thu [place] 02/21/20 at 0900, Until Discontinu ed, Routine codeine-gua 2020-0 Yes 5mL 5 mL, Unive rs ifenesin 4-07 Oral, ity of (ROBITUSSIN 03:29: Q6HPRN, [place] as AC) 10-100 29 Starting Medic al mg/5 mL [facility] 02/20/20 [place] solution 5 at 2229, mL Until Discontinu ed, Routine, Cough Sliding 2020-0 Yes Subcutaneo Univ ers Scale 4-07 us, TID ity of Insulin - 02:00: MEALS+HS, [place] as Aspart 00 First dose Medical (NOVOLOG) + on Thu [place] [facility] 02/20/20 at Testing 2100, Until Discontinu ed, Routine gabapentin 2020-0 Yes 100mg 100 mg, Uni vers (NEURONTIN) 4-07 Oral, QHS, it y of capsule 100 02:00: First dose [place] mg 00 on [facility] 02/20/20 at Branch 2100, Until Discontinu ed, Routine spironolact 2020-0 Yes 25mg 25 mg, Univ ers one 4-07 Oral, BID, ity of (ALDACTONE) 01:00: First dose [place] tablet 25 00 on [facility] Medical mg 02/20/20 at Branch 1999, Until Discontinu ed, Routine metoprolol 2020-0 Yes 100mg 100 mg, Uni vers tartrate 4-07 Oral, BID, ity o f (LOPRESSOR) 01:00: First dose [place] tablet 100 00 on [facility] Medical mg 02/20/20 at Branch 1999, Until Discontinu ed, Routine furosemide 2020-0 Yes 40mg 40 mg, Unive rs (LASIX) 4-07 Oral, BID, ity of tablet 40 01:00: First dose [place] mg 00 on [facility] 02/20/20 at Branch 1999, Until Discontinu ed, Routine lactulose 2020-0 Yes 30mL 30 mL, Univer s (CEPHULAC) 4-07 Oral, ity of solution 30 00:45: Q12H, [place] mL 00 First dose Medical on [facility] 02/20/20 at 1945, Until Discontinu ed, Routine hydralAZINE 2020-0 Yes 10mg 10 mg, Univ ers (APRESOLINE 4-07 Intravenou it y of ) injection 00:42: s, Q8HPRN, [place] 10 mg 19 Starting Medical 02/20/20 Branch at 1942, Until Discontinu ed, Routine, Hypertensi on ondansetron Yes 4mg 4 mg, Slow Univers (ZOFRAN 4-07 IV Push, ity of (PF)) 00:21: Q6HPRN, [place] injection 4 01 Starting Medi janett mg 02/20/20 Branch at 1921, Until Discontinu ed, Routine, Nausea and Vomiting (N/V) hydralAZINE No 10mg 10 mg, Uni vers (APRESOLINE 4-06 04-06 Intravenou i ty of ) injection 23:45: 22:46 s, ONCE, 1 [place] 10 mg 00 :00 dose, [facility] 02/20/20 at Branch 1845, LOPEZ montelukast 2018-11 Yes 10mg QD Take [address] [facility] (SINGULAIR) 1-05 by mouth [place] 10 mg 16:17: nightly. Medical tablet 34 [place] lisinopril 2018-11 Yes 20mg QD Take [address] [facility] (PRINIVIL,Z 1-05 by mouth Luke s ESTRIL) 20 16:17: daily. Medic al MG tablet 34 [place] metoprolol 2018-11 Yes 100mg Q.5D Take [address] [facility] [address] (LOPRESSOR) 1-05 mg by [facility] 100 MG 16:17: mouth 2 Medical tablet 34 (two) Center times daily. amLODIPine 2018-11 Yes 5mg QD Take [address] [facility] [address] [facility] (NORVASC) 5 1-05 by mouth Luke s MG tablet 16:17: daily. Medica l 34 [place] hydroCHLORO 2018-11 Yes 12.5mg QD Take 12.[address] [facility] thiazide 1-05 mg by [facility] (MICROZIDE) 16:17: mouth Medic al 12.5 mg 34 daily. [place] capsule omeprazole 2018-11 Yes 40mg QD Take [address] (PRILOSEC) 1-05 by mouth [facility] 40 MG 16:17: daily. Medical capsule 34 [place] brimonidine 2018-11 Yes 1[drp] Q.5D Place 1 [...] 10 mg 16:17: nightly. Medical tablet 34 [place] lisinopril 2018-11 Yes 20mg QD Take [address] (PRINIVIL,Z 1-05 by mouth Luke s ESTRIL) 20 16:17: daily. Medic al MG tablet 34 [place] metoprolol 2018-11 Yes 100mg Q.5D Take [address] (LOPRESSOR) 1-05 mg by [facility] 100 MG 16:17: mouth 2 Medical tablet 34 (two) Center times daily. amLODIPine 2018-11 Yes 5mg QD Take [address] [facility] [address] [facility] (NORVASC) 5 1-05 by mouth Luke s MG tablet 16:17: daily. Medica l 34 [place] hydroCHLORO 2018-11 Yes 12.5mg QD Take 12.[address] [facility] thiazide 1-05 mg by [facility] (MICROZIDE) 16:17: mouth Medic al 12.5 mg 34 daily. Center capsule omeprazole 2018-11 Yes 40mg QD Take [address] (PRILOSEC) 1-05 by mouth [facility] 40 MG 16:17: daily. Medical capsule 34 [place] brimonidine 2018-11 Yes 1[drp] Q.5D Place [address] (ALPHAGAN) 1-05 drop into Luke s 0.15 % 16:17: both eyes Medica l ophthalmic 34 2 (two) Center solution times daily. insulin 2018-11 Yes 30U QD Inject 30 [facility] degludec 1-05 Units [facility] 100 unit/mL 16:17: subcutaneo Medical (3 mL) InPn 34 [facility] Center daily. latanoprost 2018-11 Yes 1[drp] QD Place [address] (XALATAN) 1-05 drop into [facility] 0.005 % 16:17: both eyes Medic al ophthalmic 34 nightly. Cente r solution SITagliptin 2018-11 Yes 1{tbl} QD Take [address] -metFORMIN 1-05 tablet by James cazares (JANUMET) 16:17: mouth Medical 50-1,000 mg 34 [...] + D Branch ORAL) methotrexat 2020- No [id number] 20mg Take 8 Univers e 6-09 04-08 Tabs by ity of (RHEUMATREX 00:00: 00:00 [place] ) 2.5 mg 00 :00 weekly. [facility] foLIC acid Yes [id number] 1mg Take 1 Tab Univers (FOLATE) 1 5-25 by mouth ity o f mg tablet 00:00: daily. Medical Branch foLIC acid Yes [id number] 1mg Take 1 Tab Univers (FOLATE) 1 5-25 by mouth ity o f mg tablet 00:00: daily. Medical Branch foLIC acid Yes [id number] 1mg Take 1 Tab Univers (FOLATE) 1 5-25 by mouth ity o f mg tablet 00:00: daily. Medical Branch foLIC acid Yes [id number] 1mg Take 1 Tab Univers (FOLATE) 1 5-25 by mouth ity o f mg tablet 00:00: daily. [facility] foLIC acid Yes [id number] 1mg Take 1 Tab Univers (FOLATE) 1 5-25 by mouth ity o f mg tablet 00:00: daily. [place] [facility] foLIC acid Yes [id number] 1mg Take 1 Tab Univers (FOLATE) 1 5-25 by mouth ity o f mg tablet 00:00: daily. [facility] foLIC acid Yes [id number] 1mg Take 1 Tab Univers (FOLATE) 1 5-25 by mouth ity o f mg tablet 00:00: daily. [place] [facility] foLIC acid Yes [id number] 1mg Take 1 Tab Univers (FOLATE) 1 5-25 by mouth ity o f mg tablet 00:00: daily. [place] [facility] foLIC acid Yes [id number] 1mg Take 1 Tab Univers (FOLATE) 1 5-25 by mouth ity o f mg tablet 00:00: daily. [place] [facility] foLIC acid Yes [id number] 1mg Take 1 Tab Univers (FOLATE) 1 5-25 by mouth ity o f mg tablet 00:00: daily. [place] [facility] foLIC acid Yes [id number] 1mg Take 1 Tab Univers (FOLATE) 1 5-25 by mouth ity o f mg tablet 00:00: daily. [place] [facility] foLIC acid Yes [id number] 1mg Take 1 Tab Univers (FOLATE) 1 5-25 by mouth ity o f mg tablet 00:00: daily. [place] [facility] foLIC acid Yes [id number] 1mg Take 1 Tab Univers (FOLATE) 1 5-25 by mouth ity o f mg tablet 00:00: daily. [place] [facility] foLIC acid Yes [id number] 1mg Take 1 Tab Univers (FOLATE) 1 5-25 by mouth ity o f mg tablet 00:00: daily. [place] [facility] foLIC acid Yes [id number] 1mg Take 1 Tab Univers (FOLATE) 1 5-25 by mouth ity o f mg tablet 00:00: daily. [place] [facility] foLIC acid Yes [id number] 1mg Take 1 Tab Univers (FOLATE) 1 5-25 by mouth ity o f mg tablet 00:00: daily. [place] [facility] foLIC acid Yes [id number] 1mg Take 1 Tab Univers (FOLATE) 1 5-25 by mouth ity o f mg tablet 00:00: daily. [facility] foLIC acid Yes [id number] 1mg Take 1 Tab Univers (FOLATE) 1 5-25 by mouth ity o f mg tablet 00:00: daily. [facility] foLIC acid Yes [id number] 1mg Take 1 Tab Univers (FOLATE) 1 5-25 by mouth ity o f mg tablet 00:00: daily. [facility] foLIC acid Yes [id number] 1mg Take 1 Tab Univers (FOLATE) 1 5-25 by mouth ity o f mg tablet 00:00: daily. [facility] foLIC acid Yes [id number] 1mg Take 1 Tab Univers (FOLATE) 1 5-25 by mouth ity o f mg tablet 00:00: daily. [facility] foLIC acid Yes [id number] 1mg Take 1 Tab Univers (FOLATE) 1 5-25 by mouth ity o f mg tablet 00:00: daily. [place] [facility] foLIC acid Yes [id number] 1mg Take 1 Tab Univers (FOLATE) 1 5-25 by mouth ity o f mg tablet 00:00: daily. [place] [facility] foLIC acid Yes [id number] 1mg Take 1 Tab Univers (FOLATE) 1 5-25 by mouth ity o f mg tablet 00:00: daily. [place] [facility] foLIC acid Yes [id number] 1mg Take 1 Tab Univers (FOLATE) 1 5-25 by mouth ity o f mg tablet 00:00: daily. [place] [facility] foLIC acid Yes [id number] 1mg Take 1 Tab Univers (FOLATE) 1 5-25 by mouth ity o f mg tablet 00:00: daily. [place] [facility] foLIC acid Yes [id number] 1mg Take 1 Tab Univers (FOLATE) 1 5-25 by mouth ity o f mg tablet 00:00: daily. [place] [facility] foLIC acid Yes [id number] 1mg Take 1 Tab Univers (FOLATE) 1 5-25 by mouth ity o f mg tablet 00:00: daily. [place] [facility] foLIC acid Yes [id number] 1mg Take 1 Tab Univers (FOLATE) 1 5-25 by mouth ity o f mg tablet 00:00: daily. [place] 00 Medical Branch foLIC acid Yes [id number] 1mg Take 1 Tab Univers (FOLATE) 1 5-25 by mouth ity o f mg tablet 00:00: daily. [place] Medical Branch Blood-Gluco Yes daily. Univ ers [...] of (FREESTYLE 00:00: [place] LITE METER) 00 [facility] Blood-Gluco Yes daily. Univ ers se Meter 2-14 ity of (FREESTYLE 00:00: [place] LITE METER) 00 [facility] Blood-Gluco Yes daily. Univ ers se Meter 2-14 ity of (FREESTYLE 00:00: [place] LITE METER) [facility] Blood-Gluco Yes daily. Univ ers se Meter 2-14 ity of (FREESTYLE 00:00: [place] LITE METER) [facility] glipiZIDE 2020- No 2.5mg Take 1 Tab Univers XL 2-14 04-08 by mouth 2 ity of (GLUCOTROL 00:00: 00:00 (two) [place] XL) 2.5 mg 00 :00 times Medical 24 hr daily. [place] tablet [facility] Yes 20meq Take 1 Tab Univer s (KLOR-CON 1-04 by mouth ity of M20) 20 mEq 00:00: daily. [place] tablet 00 [facility] Yes 20meq Take 1 Tab Univer s (KLOR-CON 1-04 by mouth ity of M20) 20 mEq 00:00: daily. [place] tablet 00 [facility] Yes 20meq Take 1 Tab Univer s (KLOR-CON 1-04 by mouth ity of M20) 20 mEq 00:00: daily. [place] tablet 00 [facility] Yes 20meq Take 1 Tab Univer s (KLOR-CON 1-04 by mouth ity of M20) 20 mEq 00:00: daily. [place] tablet 00 [facility] Yes 20meq Take 1 Tab Univer s (KLOR-CON 1-04 by mouth ity of M20) 20 mEq 00:00: daily. [place] tablet 00 [facility] Yes 20meq Take 1 Tab Univer s (KLOR-CON 1-04 by mouth ity of M20) 20 mEq 00:00: daily. [place] tablet 00 [facility] Yes 20meq Take 1 Tab Univer s (KLOR-CON 1-04 by mouth ity of M20) 20 mEq 00:00: daily. [place] tablet 00 [facility] Yes 20meq Take 1 Tab Univer s (KLOR-CON 1-04 by mouth ity of M20) 20 mEq 00:00: daily. [place] tablet 00 [facility] Yes 20meq Take 1 Tab Univer s (KLOR-CON 1-04 by mouth ity of M20) 20 mEq 00:00: daily. [place] tablet 00 [facility] Yes 20meq Take 1 Tab Univer s (KLOR-CON 1-04 by mouth ity of M20) 20 mEq 00:00: daily. [place] tablet 00 [facility] Yes 20meq Take 1 Tab Univer s (KLOR-CON 1-04 by mouth ity of M20) 20 mEq 00:00: daily. [place] tablet 00 [facility] Yes 20meq Take 1 Tab Univer s (KLOR-CON 1-04 by mouth ity of M20) 20 mEq 00:00: daily. [place] tablet 00 [facility] Yes 20meq Take 1 Tab Univer s (KLOR-CON 1-04 by mouth ity of M20) 20 mEq 00:00: daily. [place] tablet 00 [facility] Yes 20meq Take 1 Tab Univer s (KLOR-CON 1-04 by mouth ity of M20) 20 mEq 00:00: daily. [place] tablet 00 [facility] Yes 20meq Take 1 Tab Univer s (KLOR-CON 1-04 by mouth ity of M20) 20 mEq 00:00: daily. [place] tablet 00 [facility] Yes 20meq Take 1 Tab Univer s (KLOR-CON 1-04 by mouth ity of M20) 20 mEq 00:00: daily. [place] tablet 00 [facility] Yes 20meq Take 1 Tab Univer s (KLOR-CON 1-04 by mouth ity of M20) 20 mEq 00:00: daily. [place] tablet 00 [facility] Yes 20meq Take 1 Tab Univer s (KLOR-CON 1-04 by mouth ity of M20) 20 mEq 00:00: daily. [place] tablet 00 [facility] Yes 20meq Take 1 Tab Univer s (KLOR-CON 1-04 by mouth ity of M20) 20 mEq 00:00: daily. [place] tablet 00 [facility] Yes 20meq Take 1 Tab Univer s (KLOR-CON 1-04 by mouth ity of M20) 20 mEq 00:00: daily. [place] tablet 00 [facility] Yes 20meq Take 1 Tab Univer s (KLOR-CON 1-04 by mouth ity of M20) 20 mEq 00:00: daily. [place] tablet 00 [facility] Yes 20meq Take 1 Tab Univer s (KLOR-CON 1-04 by mouth ity of M20) 20 mEq 00:00: daily. [place] tablet 00 [facility] Yes 20meq Take 1 Tab Univer s (KLOR-CON 1-04 by mouth ity of M20) 20 mEq 00:00: daily. [place] tablet 00 [facility] Yes 20meq Take 1 Tab Univer s (KLOR-CON 1-04 by mouth ity of M20) 20 mEq 00:00: daily. [place] tablet 00 [facility] Yes 20meq Take 1 Tab Univer s (KLOR-CON 1-04 by mouth ity of M20) 20 mEq 00:00: daily. [place] tablet 00 [facility] Yes 20meq Take 1 Tab Univer s (KLOR-CON 1-04 by mouth ity of M20) 20 mEq 00:00: daily. [place] tablet 00 [facility] Yes 20meq Take 1 Tab Univer s (KLOR-CON 1-04 by mouth ity of M20) 20 mEq 00:00: daily. [place] tablet 00 [facility] Yes 20meq Take 1 Tab Univer s (KLOR-CON 1-04 by mouth ity of M20) 20 mEq 00:00: daily. [place] tablet 00 [facility] Yes 20meq Take 1 Tab Univer s (KLOR-CON 1-04 by mouth ity of M20) 20 mEq 00:00: daily. [place] tablet 00 [facility] Branch KCL 2010-0 Yes 20meq Take 1 Tab Univer s [...] inhalation disk blood sugar 2009-11 Yes before [facility] ers diagnostic 2-16 meals. ity of [...] inhalation disk blood sugar 2009-11 Yes before [facility] ers diagnostic 2-16 meals. ity of [...] inhalation disk blood sugar 2009-11 Yes before [facility] ers diagnostic 2-16 meals. ity of [...] inhalation disk blood sugar 2009-11 Yes before [facility] ers diagnostic 2-16 meals. ity of [...] inhalation disk blood sugar 2009-11 Yes before [facility] ers diagnostic 2-16 meals. ity of [...] inhalation disk blood sugar 2009-11 Yes before [facility] ers diagnostic 2-16 meals. ity of [...] inhalation disk blood sugar 2009-11 Yes before [facility] ers diagnostic 2-16 meals. ity of (FREESTYLE 00:00: [place] LITE 00 Medical STRIPS) Branch strip furosemide 2009-11 Yes 40mg Take 40 mg U nivers (LASIX) 40 2-16 by mouth 2 ity of mg tablet 00:00: (two) [place] 00 times Medical daily. Branch aspirin 81 2009-11 Yes 81mg Take 81 mg U nivers mg tablet 2-16 by mouth 2 ity of 00:00: (two) [place] 00 times Medical daily. Branch fluticasone 2009-11 Yes 1{puff} Inhale 1 Univers -salmeterol 2-16 Puff ity of (ADVAIR 00:00: daily. [place] DISKUS) 00 Medical 250-50 Branch mcg/Dose inhalation disk blood sugar 2009-11 Yes before [facility] ers diagnostic 2-16 meals. ity of [...] inhalation disk blood sugar 2009-11 Yes before [facility] ers diagnostic 2-16 meals. ity of (FREESTYLE 00:00: [place] LITE 00 Medical STRIPS) Branch strip furosemide 2009-11 Yes 40mg Take 40 mg U nivers (LASIX) 40 2-16 by mouth 2 ity of mg tablet 00:00: (two) [place] 00 times Medical daily. Branch aspirin 81 2009-11 Yes 81mg Take 81 mg U nivers mg tablet 2-16 by mouth 2 ity of 00:00: (two) [place] 00 times Medical daily. Branch fluticasone 2009-11 Yes 1{puff} Inhale 1 Univers -salmeterol 2-16 Puff ity of (ADVAIR 00:00: daily. [place] DISKUS) 00 Medical 250-50 Branch mcg/Dose inhalation disk blood sugar 2009-11 Yes before [facility] ers diagnostic 2-16 meals. ity of (FREESTYLE 00:00: [place] LITE 00 Medical STRIPS) Branch strip furosemide 2009-11 Yes 40mg Take 40 mg U nivers (LASIX) 40 2-16 by mouth 2 ity of mg tablet 00:00: (two) [place] 00 times Medical daily. Branch aspirin 81 2009-11 Yes 81mg Take 81 mg U nivers mg tablet 2-16 by mouth 2 ity of 00:00: (two) [place] 00 times Medical daily. Branch fluticasone 2009-11 Yes 1{puff} Inhale 1 Univers -salmeterol 2-16 Puff ity of (ADVAIR 00:00: daily. [place] DISKUS) 00 Medical 250-50 Branch mcg/Dose inhalation disk blood sugar 2009-11 Yes before [facility] ers diagnostic 2-16 meals. ity of [...] inhalation disk blood sugar 2009-11 Yes before [facility] ers diagnostic 2-16 meals. ity of [...] inhalation disk blood sugar 2009-11 Yes before [facility] ers diagnostic 2-16 meals. ity of [...] inhalation disk blood sugar 2009-11 Yes before [facility] ers diagnostic 2-16 meals. ity of [...] inhalation disk blood sugar 2009-11 Yes before [facility] ers diagnostic 2-16 meals. ity of [...] inhalation disk blood sugar 2009-11 Yes before [facility] ers diagnostic 2-16 meals. ity of (FREESTYLE 00:00: [place] LITE 00 Medical STRIPS) Branch strip furosemide 2009-11 Yes 40mg Take 40 mg U nivers (LASIX) 40 2-16 by mouth 2 ity of mg tablet 00:00: (two) [place] 00 times Medical daily. Branch aspirin 81 2009-11 Yes 81mg Take 81 mg U nivers mg tablet 2-16 by mouth 2 ity of 00:00: (two) [place] 00 times Medical daily. Branch fluticasone 2009-11 Yes 1{puff} Inhale 1 Univers -salmeterol 2-16 Puff ity of (ADVAIR 00:00: daily. [place] DISKUS) 00 Medical 250-50 Branch mcg/Dose inhalation disk blood sugar 2009-11 Yes before [facility] ers diagnostic 2-16 meals. ity of [...] inhalation disk blood sugar 2009-11 Yes before [facility] ers diagnostic 2-16 meals. ity of (FREESTYLE 00:00: [place] LITE 00 Medical STRIPS) Branch strip furosemide 2009-11 Yes 40mg Take 40 mg U nivers (LASIX) 40 2-16 by mouth 2 ity of mg tablet 00:00: (two) [place] 00 times Medical daily. Branch aspirin 81 2009-11 Yes 81mg Take 81 mg U nivers mg tablet 2-16 by mouth 2 ity of 00:00: (two) [place] 00 times Medical daily. Branch fluticasone 2009-11 Yes 1{puff} Inhale 1 Univers -salmeterol 2-16 Puff ity of (ADVAIR 00:00: daily. [place] DISKUS) 00 Medical 250-50 Branch mcg/Dose inhalation disk blood sugar 2009-11 Yes before [facility] ers diagnostic 2-16 meals. ity of (FREESTYLE 00:00: [place] LITE 00 Medical STRIPS) Branch strip furosemide 2009-11 Yes 40mg Take 40 mg U nivers (LASIX) 40 2-16 by mouth 2 ity of mg tablet 00:00: (two) [place] 00 times Medical daily. Branch aspirin 81 2009-11 Yes 81mg Take 81 mg U nivers mg tablet 2-16 by mouth 2 ity of 00:00: (two) [place] 00 times Medical daily. Branch fluticasone 2009-11 Yes 1{puff} Inhale 1 Univers -salmeterol 2-16 Puff ity of (ADVAIR 00:00: daily. [place] DISKUS) 00 Medical 250-50 Branch mcg/Dose inhalation disk blood sugar 2009-11 Yes before [facility] ers diagnostic 2-16 meals. ity of [...] inhalation disk blood sugar 2009-11 Yes before [facility] ers diagnostic 2-16 meals. ity of (FREESTYLE 00:00: [place] LITE 00 Medical STRIPS) Branch strip furosemide 2009-11 Yes 40mg Take 40 mg U nivers (LASIX) 40 2-16 by mouth 2 ity of mg tablet 00:00: (two) [place] 00 times Medical daily. Branch aspirin 81 2009-11 Yes 81mg Take 81 mg U nivers mg tablet 2-16 by mouth 2 ity of 00:00: (two) [place] 00 times Medical daily. Branch fluticasone 2009-11 Yes 1{puff} Inhale 1 [facility] -salmeterol 2-16 Puff ity of (ADVAIR 00:00: daily. [place] DISKUS) 00 Medical 250-50 Branch mcg/Dose inhalation disk blood sugar 2009-11 Yes before [facility] ers diagnostic 2-16 meals. ity of [...] inhalation disk blood sugar 2009-11 Yes before [facility] ers diagnostic 2-16 meals. ity of [...] inhalation disk blood sugar 2009-11 Yes before [facility] ers diagnostic 2-16 meals. ity of [...] inhalation disk blood sugar 2009-11 Yes before [facility] ers diagnostic 2-16 meals. ity of [...] inhalation disk blood sugar 2009-11 Yes before [facility] ers diagnostic 2-16 meals. ity of [...] inhalation disk blood sugar 2009-11 Yes before [facility] ers diagnostic 2-16 meals. ity of [...] 2 ity of mg tablet 00:00: (two) [place] 00 times Medical daily. Branch aspirin 81 2009-11 Yes 81mg Take 81 mg U nivers mg tablet 2-16 by mouth 2 ity of 00:00: (two) [place] 00 times Medical daily. Branch fluticasone 2009-11 [...] s HFA INHALE) 00 :00 Medical Branch Eplerenone Eplerenone No Eplerenone 25 MG 25 [...] D3 1.25 MG 1.25 MG 1.25 MG (70759 UT) (63185 UT) (38921 UT) Metoprolol Metoprolol No Metoprolol Tartrate Tartrate [...] D3 1.25 MG 1.25 MG 1.25 MG (15609 UT) (11480 UT) (65487 UT) Atorvastati Atorvastati No Atorvastat n Calcium [...] D3 1.25 MG 1.25 MG 1.25 MG (75426 UT) (73655 UT) (68161 UT) Atorvastati Atorvastati No Atorvastat n Calcium [...] D3 1.25 MG 1.25 MG 1.25 MG (73566 UT) (53388 UT) ( UT) Atorvastati Atorvastati No Atorvastat [...] D3 1.25 MG 1.25 MG 1.25 MG (15812 UT) (40173 UT) (94654 UT) ProAir HFA ProAir HFA No 2{puffs [...] Besylate 5 Besylate 5 MG MG MG Immunizations Ordered Filled Immunization Date Status Comments Sourc e Immunization Name Name Pneumovax (PPSV23) Pneumovax (PPSV23) 2022-03-25 [facility]00 [facility] Pneumovax (PPSV23) Pneumovax (PPSV23) 2022-03-25 [facility]pleted [facility] 15:04:00 [facility] Pneumovax (PPSV23) Pneumovax (PPSV23) 2022-03-25 Completed [facility] 15:04:00 [facility] Pneumovax (PPSV23) Pneumovax (PPSV23) 2022-03-25 Completed [facility] 15:04:00 [facility] Pneumovax (PPSV23) Pneumovax (PPSV23) 2022-03-25 Completed [facility] 15:04:00 [facility] Pneumovax (PPSV23) Pneumovax (PPSV23) 2022-03-25 Completed [facility] 15:04:00 [facility] Pneumovax (PPSV23) Pneumovax (PPSV23) 2022-03-25 Completed [facility] 15:04:00 [facility] Pneumovax (PPSV23) Pneumovax (PPSV23) 2022-03-25 Completed [facility] 15:04:00 [facility] Pneumovax (PPSV23) Pneumovax (PPSV23) 2022-03-25 Completed [facility] 15:04:00 [facility] Pneumovax (PPSV23) Pneumovax (PPSV23) 2022-03-25 Completed [facility] 15:04:00 [facility] Pneumovax (PPSV23) Pneumovax (PPSV23) 2022-03-25 Completed [facility] 15:04:00 [facility] FluAD FluAD 2021-10-15 Completed [facility] - 13:16:00 [facility] FluAD FluAD 2021-10-15 Completed [facility] 13:16:00 [facility] FluAD FluAD 2021-10-15 Completed [facility] 13:16:00 [facility] FluAD FluAD 2021-10-15 Completed [facility] 13:16:00 [facility] FluAD FluAD 2021-10-15 Completed [facility] 13:16:00 [facility] FluAD FluAD 2021-10-15 Completed [facility] 13:16:00 [facility] FluAD FluAD 2021-10-15 Completed [facility] 13:16:00 [facility] FluAD FluAD 2021-10-15 Completed [facility] 13:16:00 [facility] FluAD FluAD 2021-10-15 Completed [facility] 13:16:00 [facility] FluAD FluAD 2021-10-15 Completed [facility] 13:16:00 [facility] FluAD FluAD 2021-10-15 Completed [facility] 13:16:00 [facility] FluAD FluAD 2021-10-15 Completed [facility] 13:16:00 [facility] FluAD FluAD 2021-10-15 Completed [facility] 13:16:00 [facility] FluAD FluAD 2020-08-05 Completed [facility] 16:12:00 [facility] Prevnar 13 (PCV13) Prevnar 13 (PCV13) 2020-08-05 Completed [facility] 16:12:00 [facility] FluAD FluAD 2020-08-05 Completed [facility] 16:12:00 [facility] Prevnar 13 (PCV13) Prevnar 13 (PCV13) 2020-08-05 Completed [facility] 16:12:00 [facility] FluAD FluAD 2020-08-05 Completed [facility] 16:12:00 [facility] Prevnar 13 (PCV13) Prevnar 13 (PCV13) 2020-08-05 Completed [facility] 16:12:00 [facility] FluAD FluAD 2020-08-05 Completed [facility] 16:12:00 [facility] Prevnar 13 (PCV13) Prevnar 13 (PCV13) 2020-08-05 Completed [facility] 16:12:00 [facility] FluAD FluAD 2020-08-05 Completed [facility] 16:12:00 [facility] Prevnar 13 (PCV13) Prevnar 13 (PCV13) 2020-08-05 Completed [facility] 16:12:00 [facility] FluAD FluAD 2020-08-05 Completed [facility] 16:12:00 [facility] Prevnar 13 (PCV13) Prevnar 13 (PCV13) 2020-08-05 Completed [facility] 16:12:00 [facility] FluAD FluAD 2020-08-05 Completed [facility] 16:12:00 [facility] Prevnar 13 (PCV13) Prevnar 13 (PCV13) 2020-08-05 Completed [facility] 16:12:00 [facility] FluAD FluAD 2020-08-05 Completed [facility] 16:12:00 [facility] Prevnar 13 (PCV13) Prevnar 13 (PCV13) 2020-08-05 Completed [facility] 16:12:00 [facility] FluAD FluAD 2020-08-05 Completed [facility] 16:12:00 [facility] Prevnar 13 (PCV13) Prevnar 13 (PCV13) 2020-08-05 Completed [facility] 16:12:00 [facility] FluAD FluAD 2020-08-05 Completed [facility] 16:12:00 [facility] Prevnar 13 (PCV13) Prevnar 13 (PCV13) 2020-08-05 Completed [facility] 16:12:00 [facility] FluAD FluAD 2020-08-05 Completed [facility] 16:12:00 [facility] Prevnar 13 (PCV13) Prevnar 13 (PCV13) 2020-08-05 Completed [facility] 16:12:00 [facility] FluAD FluAD 2020-08-05 Completed [facility] 16:12:00 [facility] Prevnar 13 (PCV13) Prevnar 13 (PCV13) 2020-08-05 Completed [facility] 16:12:00 [facility] FluAD FluAD 2020-08-05 Completed [facility] 16:12:00 [facility] Prevnar 13 (PCV13) Prevnar 13 (PCV13) 2020-08-05 Completed [facility] 16:12:00 [facility] FluAD FluAD 2020-08-05 Completed [facility] 16:12:00 [facility] Prevnar 13 (PCV13) Prevnar 13 (PCV13) 2020-08-05 Completed [facility] 16:12:00 [facility] FluAD FluAD 2020-08-05 Completed [facility] 16:12:00 [facility] Prevnar 13 (PCV13) Prevnar 13 (PCV13) 2020-08-05 Completed [facility] 16:12:00 [facility] FluAD FluAD 2020-08-05 Completed [facility] 16:12:00 [facility] Prevnar 13 (PCV13) Prevnar 13 (PCV13) 2020-08-05 Completed [facility] 16:12:00 [facility] FluAD FluAD 2020-08-05 Completed [facility] 16:12:00 [facility] Prevnar 13 (PCV13) Prevnar 13 (PCV13) 2020-08-05 Completed [facility] 16:12:00 [facility] FluAD FluAD 2020-08-05 Completed [facility] 16:12:00 [facility] Prevnar 13 (PCV13) Prevnar 13 (PCV13) 2020-08-05 Completed [facility] 16:12:00 [facility] FluAD FluAD 2020-08-05 Completed [facility] 16:12:00 [facility] Prevnar 13 (PCV13) Prevnar 13 (PCV13) 2020-08-05 Completed [facility] 16:12:00 [facility] Influenza High Dose 2020-02-22 Completed [facility] 00:00:00 [facility] Influenza High Dose 2020-02-22 Completed [facility] 00:00:00 [facility] Influenza High Dose 2020-02-22 Completed [facility] 00:00:00 [facility] Influenza High Dose 2020-02-22 Completed [facility] 00:00:00 [facility] Influenza High Dose 2020-02-22 Completed [facility] 00:00:00 [facility] Influenza High Dose 2020-02-22 Completed [facility] 00:00:00 [facility] Influenza High Dose 2020-02-22 Completed [facility] 00:00:00 [facility] Influenza High Dose 2020-02-22 Completed [facility] 00:00:00 [facility] Influenza High Dose 2020-02-22 Completed [facility] 00:00:00 [facility] Influenza High Dose 2020-02-22 Completed [facility] 00:00:00 [facility] Influenza High Dose 2020-02-22 Completed [facility] 00:00:00 [facility] Influenza High Dose 2020-02-22 Completed [facility] 00:00:00 [facility] Influenza High Dose 2020-02-22 Completed [facility] 00:00:00 [facility] Influenza High Dose 2020-02-22 Completed [facility] 00:00:00 [facility] Influenza High Dose 2020-02-22 Completed [facility] 00:00:00 [facility] Influenza High Dose 2020-02-22 Completed [facility] 00:00:00 [facility] Influenza High Dose 2020-02-22 Completed [facility] 00:00:00 [facility] Influenza High Dose 2020-02-22 Completed [facility] 00:00:00 [facility] Influenza High Dose 2020-02-22 Completed [facility] 00:00:00 [facility] Influenza High Dose 2020-02-22 Completed [facility] 00:00:00 [facility] Influenza High Dose 2020-02-22 Completed [facility] 00:00:00 [facility] Influenza High Dose 2020-02-22 Completed [facility] 00:00:00 [facility] Influenza High Dose 2020-02-22 Completed [facility] 00:00:00 [facility] Influenza High Dose 2020-02-22 Completed [facility] 00:00:00 [facility] Influenza High Dose 2020-02-22 Completed [facility] 00:00:00 [facility] Influenza High Dose 2020-02-22 Completed [facility] 00:00:00 [facility] Influenza High Dose 2020-02-22 Completed [facility] 00:00:00 [facility] Influenza High Dose 2020-02-22 Completed [facility] 00:00:00 [facility] Influenza High Dose 2020-02-22 Completed [facility] 00:00:00 [facility] Influenza High Dose 2020-02-22 Completed [facility] 00:00:00 [facility] Vital Signs Vital Name Observation Time Observation Value Comments Source WEIGHT 2023-05-15 20:01:00 87.998 kg HEIGHT 2023-05-15 20:01:00 165.1 cm WEIGHT 2023-05-15 20:01:00 87.998 kg HEIGHT 2023-05-15 20:01:00 165.1 cm WEIGHT 2023-05-15 20:01:00 87.998 kg HEIGHT 2023-05-15 20:01:00 165.1 cm height 2022-09-23 11:20:00 65.5 [in_i] [facility] weight 2022-09-23 11:20:00 192.6 [lb_av] [facility] temperature 2022-09-23 11:20:00 97.4 [degF] [facility] bmi 2022-09-23 11:20:00 31.56 kg/m2 [facility] oximetry 2022-09-23 11:20:00 98 % [facility] respiratory rate 2022-09-23 11:20:00 17 /min [facility] blood pressure 2022-09-23 11:20:00 135 mm[Hg] [facility] - systolic [facility] blood pressure 2022-09-23 11:20:00 74 mm[Hg] Common [facility] - diastolic [facility] height 2022-06-24 11:00:00 65.5 [in_i] [facility] weight 2022-06-24 11:00:00 185 [lb_av] Common [facility] temperature 2022-06-24 11:00:00 97.6 [degF] [facility] bmi 2022-06-24 11:00:00 30.31 kg/m2 [facility] oximetry 2022-06-24 11:00:00 100 % [facility] respiratory rate 2022-06-24 11:00:00 16 /min [facility] blood pressure 2022-06-24 11:00:00 132 mm[Hg] Common [facility] - systolic [facility] blood pressure 2022-06-24 11:00:00 74 mm[Hg] Common [facility] - diastolic [facility] height 2022-05-21 15:00:00 65.5 [in_i] Common [facility] weight 2022-05-21 15:00:00 186.2 [lb_av] Common [facility] temperature 2022-05-21 15:00:00 97.9 [degF] [facility] bmi 2022-05-21 15:00:00 30.51 kg/m2 [facility] oximetry 2022-05-21 15:00:00 100 % [facility] respiratory rate 2022-05-21 15:00:00 18 /min [facility] blood pressure 2022-05-21 15:00:00 133 mm[Hg] [facility] - systolic [facility] blood pressure 2022-05-21 15:00:00 62 mm[Hg] [facility] diastolic [facility] height 2022-03-25 13:40:00 65.5 [in_i] [facility] weight 2022-03-25 13:40:00 200.4 [lb_av] [facility] temperature 2022-03-25 13:40:00 98.1 [degF] [facility] bmi 2022-03-25 13:40:00 32.84 kg/m2 [facility] oximetry 2022-03-25 13:40:00 100 % [facility] respiratory rate 2022-03-25 13:40:00 18 /min [facility] blood pressure 2022-03-25 13:40:00 132 mm[Hg] [facility] - systolic [facility] blood pressure 2022-03-25 13:40:00 72 mm[Hg] [facility] - diastolic [facility] height 2022-03-25 14:00:00 65.5 [in_i] [facility] weight 2022-03-25 14:00:00 200.4 [lb_av] [facility] temperature 2022-03-25 14:00:00 98.1 [degF] [facility] bmi 2022-03-25 14:00:00 32.84 kg/m2 [facility] oximetry 2022-03-25 14:00:00 100 % [facility] respiratory rate 2022-03-25 14:00:00 18 /min [facility] blood pressure 2022-03-25 14:00:00 132 mm[Hg] [facility] - systolic [facility] blood pressure 2022-03-25 14:00:00 72 mm[Hg] [facility] - diastolic [facility] height 2021-11-05 13:20:00 65.5 [in_i] [facility] weight 2021-11-05 13:20:00 201.6 [lb_av] Common [facility] temperature 2021-11-05 13:20:00 97.2 [degF] [facility] bmi 2021-11-05 13:20:00 33.03 kg/m2 [facility] oximetry 2021-11-05 13:20:00 100 % [facility] respiratory rate 2021-11-05 13:20:00 17 /min [facility] blood pressure 2021-11-05 13:20:00 135 mm[Hg] [facility] - systolic [facility] blood pressure 2021-11-05 13:20:00 72 mm[Hg] [facility] - diastolic [facility] height 2021-08-13 14:00:00 65.5 [in_i] [facility] weight 2021-08-13 14:00:00 213.4 [lb_av] [facility] temperature 2021-08-13 14:00:00 97.2 [degF] [facility] bmi 2021-08-13 14:00:00 34.97 kg/m2 [facility] oximetry 2021-08-13 14:00:00 99 % [facility] respiratory rate 2021-08-13 14:00:00 17 /min [facility] blood pressure 2021-08-13 14:00:00 132 mm[Hg] [facility] - systolic [facility] blood pressure 2021-08-13 14:00:00 70 mm[Hg] [facility] - diastolic [facility] Systolic blood 2021-05-27 15:32:00 146 mm[Hg] [facility] Diastolic blood 2021-05-27 15:32:00 50 mm[Hg] [facility] of pressure [facility] Heart rate 2021-05-27 15:32:00 62 /min [facility] Oxygen saturation in 2021-05-27 15:32:00 98 /min [facility] Pulse oximetry Branch Body height 2021-05-27 14:28:00 165.1 cm [facility] Body weight 2021-05-27 14:28:00 99.791 kg [facility] BMI 2021-05-27 14:28:00 36.61 kg/m2 [facility] Systolic blood 2021-05-02 15:04:00 139 mm[Hg] [facility] Diastolic blood 2021-05-02 15:04:00 74 mm[Hg] [facility] Heart rate 2021-05-02 15:04:00 57 /min [facility] Body temperature 2021-05-02 15:04:00 36.5 Jami [facility] Respiratory rate 2021-05-02 15:04:00 16 /min [facility] Body height 2021-05-02 15:04:00 165.1 cm [facility] Body weight 2021-05-02 15:04:00 91.173 kg [facility] BMI 2021-05-02 15:04:00 33.45 kg/m2 [facility] Oxygen saturation in 2021-05-02 15:04:00 100 /min [facility] Pulse oximetry Branch Systolic blood 2021-03-28 15:35:00 165 mm[Hg] [facility] Diastolic blood 2021-03-28 15:35:00 58 mm[Hg] [facility] Heart rate 2021-03-28 15:35:00 56 /min [facility] Body temperature 2021-03-28 15:35:00 36.33 Jami [facility] Body height 2021-03-28 15:35:00 165.1 cm [facility] Body weight 2021-03-28 15:35:00 96.616 kg [facility] BMI 2021-03-28 15:35:00 35.45 kg/m2 [facility] Systolic blood 2021-01-29 16:57:00 142 mm[Hg] [facility] pressure [facility] Diastolic blood 2021-01-29 16:57:00 62 mm[Hg] [facility] pressure [facility] Heart rate 2021-01-29 16:57:00 55 /min [facility] Body temperature 2021-01-29 16:57:00 36.44 Jami [facility] Respiratory rate 2021-01-29 16:57:00 18 /min [facility] Body height 2021-01-29 16:57:00 165.1 cm [facility] Body weight 2021-01-29 16:57:00 96.616 kg [facility] BMI 2021-01-29 16:57:00 35.45 kg/m2 [facility] Oxygen saturation in 2021-01-29 16:57:00 99 /min [facility] Pulse oximetry Branch Systolic blood 2021-01-29 16:57:00 142 mm[Hg] [facility] Diastolic blood 2021-01-29 16:57:00 62 mm[Hg] [facility] Heart rate 2021-01-29 16:57:00 55 /min [facility] Body temperature 2021-01-29 16:57:00 36.44 Jami [facility] Respiratory rate 2021-01-29 16:57:00 18 /min [facility] Body height 2021-01-29 16:57:00 165.1 cm [facility] Body weight 2021-01-29 16:57:00 96.616 kg [facility] BMI 2021-01-29 16:57:00 35.45 kg/m2 [facility] Oxygen saturation in 2021-01-29 16:57:00 99 /min [facility] by [facility] Pulse oximetry Branch Systolic blood 2021-01-03 20:08:00 179 mm[Hg] [facility] Diastolic blood 2021-01-03 20:08:00 60 mm[Hg] [facility] pressure [facility] Heart rate 2021-01-03 20:08:00 67 /min [facility] Oxygen saturation in 2021-01-03 20:08:00 92 /min [facility] Pulse oximetry Branch Body weight 2021-01-03 19:10:00 88.905 kg [facility] BMI 2021-01-03 19:10:00 32.62 kg/m2 [facility] Systolic blood 2021-01-03 20:08:00 179 mm[Hg] [facility] Diastolic blood 2021-01-03 20:08:00 60 mm[Hg] [facility] Heart rate 2021-01-03 20:08:00 67 /min [facility] Oxygen saturation in 2021-01-03 20:08:00 92 /min [facility] Pulse oximetry Branch Body weight 2021-01-03 19:10:00 88.905 kg [facility] BMI 2021-01-03 19:10:00 32.62 kg/m2 [facility] Systolic blood 2020-11-19 19:10:00 217 mm[Hg] [facility] Diastolic blood 2020-11-19 19:10:00 82 mm[Hg] [facility] Heart rate 2020-11-19 19:10:00 56 /min [facility] Respiratory rate 2020-11-19 19:10:00 16 /min [facility] Body weight 2020-11-19 19:10:00 84.823 kg [facility] BMI 2020-11-19 19:10:00 31.12 kg/m2 [facility] Oxygen saturation in 2020-11-19 19:10:00 98 /min [facility] Pulse oximetry Branch Systolic blood 2020-11-19 19:10:00 217 mm[Hg] [facility] pressure [facility] Diastolic blood 2020-11-19 19:10:00 82 mm[Hg] [facility] Heart rate 2020-11-19 19:10:00 56 /min [facility] Respiratory rate 2020-11-19 19:10:00 16 /min [facility] Body weight 2020-11-19 19:10:00 84.823 kg [facility] BMI 2020-11-19 19:10:00 31.12 kg/m2 [facility] Oxygen saturation in 2020-11-19 19:10:00 98 /min [facility] Pulse oximetry [facility] Systolic blood 2020-10-22 20:15:00 193 mm[Hg] [facility] Diastolic blood 2020-10-22 20:15:00 86 mm[Hg] [facility] Heart rate 2020-10-22 20:15:00 63 /min [facility] Respiratory rate 2020-10-22 20:15:00 18 /min [facility] Oxygen saturation in 2020-10-22 20:15:00 96 /min [facility] Pulse oximetry [facility] Body temperature 2020-10-22 19:26:00 36.22 Jami [facility] Body height 2020-10-22 19:26:00 165.1 cm [facility] Body weight 2020-10-22 19:26:00 84.823 kg [facility] BMI 2020-10-22 19:26:00 31.12 kg/m2 [facility] Systolic blood 2020-10-22 20:15:00 193 mm[Hg] [facility] Diastolic blood 2020-10-22 20:15:00 86 mm[Hg] [facility] Heart rate 2020-10-22 20:15:00 63 /min [facility] Respiratory rate 2020-10-22 20:15:00 18 /min [facility] Oxygen saturation in 2020-10-22 20:15:00 96 /min [facility] Pulse oximetry [facility] Body temperature 2020-10-22 19:26:00 36.22 Jami [facility] Body height 2020-10-22 19:26:00 165.1 cm [facility] Body weight 2020-10-22 19:26:00 84.823 kg [facility] BMI 2020-10-22 19:26:00 31.12 kg/m2 [facility] Systolic blood 2020-02-25 15:00:00 174 mm[Hg] [facility] Diastolic blood 2020-02-25 15:00:00 61 mm[Hg] [facility] pressure [facility] Heart rate 2020-02-25 15:00:00 68 /min [facility] Respiratory rate 2020-02-25 15:00:00 19 /min [facility] Oxygen saturation in 2020-02-25 15:00:00 99 /min [facility] Pulse oximetry [facility] Body temperature 2020-02-25 11:26:00 37.22 Jami [facility] Body height 2020-02-25 11:26:00 165.1 cm [facility] Body weight 2020-02-25 11:26:00 83.462 kg [facility] BMI 2020-02-25 11:26:00 30.62 kg/m2 [facility] Systolic blood 2020-02-22 12:42:00 151 mm[Hg] [facility] Diastolic blood 2020-02-22 12:42:00 62 mm[Hg] [facility] pressure [facility] Heart rate 2020-02-22 12:42:00 56 /min [facility] Body temperature 2020-02-22 12:42:00 36.5 Jami [facility] Respiratory rate 2020-02-22 12:42:00 18 /min [facility] Oxygen saturation in 2020-02-22 12:42:00 96 /min [facility] by [facility]ett Pulse oximetry Branch Body weight 2020-02-22 00:30:00 83.462 kg [facility] BMI 2020-02-22 00:30:00 30.62 kg/m2 [facility] Body height 2020-02-21 00:24:00 165.1 cm [facility] Systolic blood 2023-06-15 18:43:00 98 mm[Hg] [facility] Diastolic blood 2023-06-15 18:43:00 62 mm[Hg] [facility] pressure Heart rate 2023-06-15 18:43:00 72 /min [facility] Body height 2023-06-15 18:43:00 165.1 cm [facility] Body weight 2023-06-15 18:43:00 88.225 kg [facility] BMI 2023-06-15 18:43:00 32.37 kg/m2 [facility] Systolic blood 2023-05-28 18:17:00 149 mm[Hg] [facility] pressure Diastolic blood 2023-05-28 18:17:00 61 mm[Hg] [facility] pressure Heart rate 2023-05-28 18:17:00 44 /min [facility] Body height 2023-05-28 18:17:00 165.1 cm [facility] Body weight 2023-05-28 18:17:00 90.855 kg [facility] BMI 2023-05-28 18:17:00 33.33 kg/m2 [facility] Body temperature 2023-05-28 18:17:00 35.28 Jami [facility] Respiratory rate 2023-05-28 18:17:00 18 /min [facility] Oxygen saturation in 2023-05-28 18:17:00 100 /min [facility] Arterial blood by Pulse oximetry Systolic blood 2023-05-18 08:12:00 148 mm[Hg] [facility] Diastolic blood 2023-05-18 08:12:00 39 mm[Hg] [facility] Heart rate 2023-05-18 08:12:00 56 /min [facility] Body temperature 2023-05-18 08:12:00 36.39 Jami [facility] Respiratory rate 2023-05-18 08:12:00 16 /min [facility] Oxygen saturation in 2023-05-18 08:12:00 100 /min [facility] Arterial blood by Medical Ce nter Pulse oximetry Body height 2023-05-15 20:01:00 165.1 cm [facility] Body weight 2023-05-15 20:01:00 87.998 kg [facility] BMI 2023-05-15 20:01:00 32.28 kg/m2 [facility] Systolic blood 2022-12-11 18:27:00 164 mm[Hg] [facility] pressure Diastolic blood 2022-12-11 18:27:00 55 mm[Hg] [facility] pressure Heart rate 2022-12-11 18:27:00 53 /min [facility] Body temperature 2022-12-11 18:27:00 35.83 Jami [facility] Respiratory rate 2022-12-11 18:27:00 18 /min [facility] Body height 2022-12-11 18:27:00 165.1 cm [facility] Body weight 2022-12-11 18:27:00 87.635 kg [facility] BMI 2022-12-11 18:27:00 32.15 kg/m2 [facility] Oxygen saturation in 2022-12-11 18:27:00 99 /min [facility] Arterial blood by Pulse oximetry Procedures Procedure Date / Time Performing Clinician Source Performed BASIC METABOLIC PANEL 2023-06-13 16:02:00 Nabeel Ventura [facility] HEPATIC FUNCTION PANEL 2023-06-13 16:02:00 [facility] PROTHROMBIN TIME WITH INR 2023-06-13 16:02:00 [facility] CBC WITH PLATELET AND 2023-06-13 16:02:00 [facility] DIFFERENTIAL TTE COMPLETE, WO 2023-05-28 17:36:00 [facility] CONTRAST, W AGITATED SALINE ([id number]) MRI ABDOMEN W WO CONTRAST 2023-05-28 16:00:00 [facility] BASIC METABOLIC PANEL 2023-05-28 14:30:00 [facility] HEPATIC FUNCTION PANEL 2023-05-28 14:30:00 [facility] PROTHROMBIN TIME WITH INR 2023-05-28 14:30:00 [facility] PARTIAL THROMBOPLASTIN 2023-05-28 14:30:00 [facility] TIME (PTT) CBC WITH PLATELET AND 2023-05-28 14:30:00 [facility] Nabeel [facility] DIFFERENTIAL ALPHA FETOPROTEIN 2023-05-28 14:30:00 [facility] MAGNESIUM LEVEL 2023-05-28 14:30:00 [facility] PHOSPHORUS LEVEL 2023-05-28 14:30:00 [facility] ESTIMATED GFR 2023-05-28 14:30:00 [facility] HEMOGLOBIN A1C 2023-05-18 04:30:00 [facility] CBC W/PLT COUNT & AUTO 2023-05-18 04:30:00 [facility] [place] METABOLIC 2023-05-18 04:30:00 [facility] CBC W/PLT COUNT & AUTO 2023-05-18 04:30:00 [facility] CREATININE, RANDOM URINE 2023-05-17 09:42:00 [facility] SODIUM, RANDOM URINE 2023-05-17 09:42:00 [facility] CBC W/PLT COUNT & AUTO 2023-05-17 05:06:00 Vivian Rai [facility] PROTHROMBIN TIME/INR 2023-05-17 05:06:00 Vivian Rai [facility] CALCIUM, IONIZED 2023-05-17 05:06:00 [facility] COMPREHENSIVE METABOLIC 2023-05-17 05:06:00 [facility] PANEL [place] MAGNESIUM 2023-05-17 05:06:00 [facility] PHOSPHORUS 2023-05-17 05:06:00 [facility] CBC W/PLT COUNT & AUTO 2023-05-17 05:06:00 Vivian Rai [facility] PROTEIN, RANDOM URINE 2023-05-16 20:21:00 Jagdish Lopez [facility] URINALYSIS W/ MICROSCOPIC 2023-05-16 19:50:00 Vivian Rai [facility] HEMOGLOBIN AND HEMATOCRIT 2023-05-16 16:17:00 [facility] POCT-GLUCOSE METER 2023-05-16 13:39:00 Vivian Rai [facility] REPORT OF PROCEDURE - 2023-05-16 13:29:10 [facility] ENDOSCOPY URL Center EGD 2023-05-16 11:00:00 [facility]ikh [facility] (ESOPHAGOGASTRODUODENOSCO Center PY) CBC W/PLT COUNT & AUTO 2023-05-16 00:09:00 Kal [facility] COMPREHENSIVE METABOLIC 2023-05-16 00:09:00 Kal [facility] PANEL Center PT/APTT 2023-05-16 00:09:00 Kal [facility] TYPE AND SCREEN, 2023-05-16 00:09:00 Kal [facility] AUTOMATED Center CBC W/PLT COUNT & AUTO 2023-05-16 00:09:00 Kal [facility] MRI ABDOMEN W WO CONTRAST 2022-12-11 17:40:[address] [facility] TTE COMPLETE, WO 2022-12-11 16:18:00 JoseluisNabeel Hogan [facility] CONTRAST, W AGITATED SALINE ([id number]) BASIC METABOLIC PANEL 2022-12-11 14:20:00 Nabeel Ventura [facility] HEPATIC FUNCTION PANEL 2022-12-11 14:20:00 Nabeel Ventura [facility] PROTHROMBIN TIME WITH INR 2022-12-11 14:20:00 [facility] PARTIAL THROMBOPLASTIN 2022-12-11 14:20:00 Nabeel Ventura [facility] TIME (PTT) CBC WITH PLATELET AND 2022-12-11 14:20:00 [facility] DIFFERENTIAL ALPHA FETOPROTEIN 2022-12-11 14:20:00 [facility] MAGNESIUM LEVEL 2022-12-11 14:20:00 [facility] PHOSPHORUS LEVEL 2022-12-11 14:20:00 [facility] ESTIMATED GFR 2022-12-11 14:20:00 [facility] TTE COMPLETE, WO 2022-05-15 19:40:00 [facility] CONTRAST, W AGITATED SALINE ([id number]) MRI ABDOMEN W WO CONTRAST 2022-05-15 15:30:00 [facility] BASIC METABOLIC PANEL 2022-05-15 14:11:00 [facility] HEPATIC FUNCTION PANEL 2022-05-15 14:11:00 [facility] PROTHROMBIN TIME WITH INR 2022-05-15 14:11:00 [facility] PARTIAL THROMBOPLASTIN 2022-05-15 14:11:00 [facility] TIME (PTT) CBC WITH PLATELET AND 2022-05-15 14:11:00 [facility] DIFFERENTIAL ALPHA FETOPROTEIN 2022-05-15 14:11:00 [facility] MAGNESIUM LEVEL 2022-05-15 14:11:00 [facility] PHOSPHORUS LEVEL 2022-05-15 14:11:00 [facility] ESTIMATED GFR 2022-05-15 14:11:00 [facility] IR 2021-05-02 15:09:[address] [facility] PARACENTESIS/PERITONECENT C Medica l Branch ESIS WITH IMAGING IR 2021-03-28 15:29:[address] [facility] PARACENTESIS/PERITONECENT C Medica l Branch ESIS WITH IMAGING ASSIGNMENT OF BENEFITS 2021-03-28 13:44:31 Doctor Unassigned, [facility] PHYSICIAN ORDERS 2021-03-21 05:01:00 Doctor Unassigned, [facility] [id number] 2021-02-18 00:00:00 WEAKI [facility] [id number] 2021-02-15 00:00:[address] [facility] [id number] 2021-02-15 00:00:00 UGBST [facility] IR 2021-01-29 16:42:00 Catracho Thornton [facility] PARACENTESIS/PERITONECENT C Medica l Branch ESIS WITH IMAGING ASSIGNMENT OF BENEFITS 2021-01-29 15:10:15 [facility] IR 2021-01-03 19:17:21 Catracho Thornton [facility] PARACENTESIS/PERITONECENT C Medica l Branch ESIS WITH IMAGING ASSIGNMENT OF BENEFITS 2021-01-03 17:46:32 Doctor Unassigned, [facility] [place] [facility] PHYSICIAN ORDERS 2020-12-25 06:01:00 Doctor Unassigned, [facility] IR 2020-11-19 20:14:13 Catracho Thornton [facility] PARACENTESIS/PERITONECENT C Medica l Branch ESIS WITH IMAGING IR 2020-10-22 20:39:51 Catracho Thornton [facility] PARACENTESIS/PERITONECENT C Medica l Branch ESIS WITH IMAGING FERRITIN SERUM 2020-10-02 15:25:00 Catracho Thornton [facility] C Medical Branch IRON 2020-10-02 15:25:00 Catracho Thornton [facility] C Medical Branch TOTAL IRON BINDING 2020-10-02 15:25:00 Catracho Thornton [facility] CAPACITY C Medical Branch HEPATIC FUNCTION PANEL 2020-10-02 15:25:00 Catracho Thornton [facility] ([id number]) (ALB,T.PRO,BILI [facility] Branch T,BU/BC,ALT,AST,ALK PHOS) CBC WITH DIFF 2020-10-02 15:25:00 Catracho Thornton [facility] PROTHROMBIN TIME / INR 2020-10-02 15:25:00 Catracho Thornton [facility] ALPHA FETOPROTEIN 2020-10-02 15:25:00 [facility] HEPATITIS B SURFACE 2020-10-02 15:25:00 [facility] ANTIBODY [facility] HEPATITIS B SURFACE 2020-10-02 15:25:00 [facility] ANTIGEN [facility] HCV ANTIBODY 2020-10-02 15:25:00 Lachelle [facility] HBC ANTIBODY (IGM & IGG) 2020-10-02 15:25:00 [facility] mendiol[facility] HAV ANTIBODY (IGG AND 2020-10-02 15:25:00 Catracho Thornton [facility] IGM) [facility] PHYSICIAN ORDERS 2020-10-02 06:01:00 Doctor Unassigned, [facility] AUTHORIZATION FOR RELEASE 2020-03-21 05:01:00 Doctor Unassigned, [facility] HEAD WO CONTRAST 2020-02-25 13:41:27 Amber Nunez [facility] PROTHROMBIN TIME / INR 2020-02-25 12:44:00 Mavsi Hernandez [facility] ACTIVATED PARTIAL 2020-02-25 12:44:00 Mavis Hernandez [facility] URINALYSIS 2020-02-25 12:25:00 Leonides Edwards [facility] ADC / LCC - DRUG SCREEN 2020-02-25 12:25:00 Leonides Edwards [facility] AMMONIA, PLASMA 2020-02-25 12:14:00 Leonides Edwards [facility] TROPONIN I 2020-02-25 11:46:00 Mavis Hernandez [facility] SALICYLATE 2020-02-25 11:46:00 Leonides Edwards [facility] LIPASE 2020-02-25 11:40:00 Leonides Edwards [facility] HEPATIC FUNCTION PANEL 2020-02-25 11:40:00 Leonides Edwards U [facility] ([id number]) (ALB,T.PRO,BILI [facility] T,BU/BC,ALT,AST,ALK PHOS) BASIC METABOLIC PANEL 2020-02-25 11:40:00 [facility]ides [facility] (NA, K, CL, CO2, GLUCOSE, Medica l Branch BUN, CREATININE, CA) CBC WITH DIFFERENTIAL 2020-02-25 11:40:00 Leonides Edwards [facility] EKG-12 LEAD 2020-02-25 11:30:34 Leonides Edwards [facility] AMMONIA, PLASMA 2020-02-22 10:18:00 Fausto Zuñiga [facility] BASIC METABOLIC PANEL 2020-02-22 10:18:00 Fausto Zuñiga [facility] (NA, K, CL, CO2, GLUCOSE, Medica l Branch BUN, CREATININE, CA) POCT GLUCOSE (AUTOMATED) 2020-02-22 01:06:00 Fausto Z[facility] POCT GLUCOSE (AUTOMATED) 2020-02-21 16:35:00 Fausto [facility] AMMONIA, PLASMA 2020-02-21 14:26:00 Fausto Zuñiga [facility] POCT GLUCOSE (AUTOMATED) 2020-02-21 12:35:00 Fausto [facility] BASIC METABOLIC PANEL 2020-02-21 09:00:00 Geno Montenegro [facility] (NA, K, CL, CO2, GLUCOSE, Medica l Branch BUN, CREATININE, CA) CBC WITH DIFFERENTIAL 2020-02-21 09:00:00 Geno Mon[facility]negro [facility] POCT GLUCOSE (AUTOMATED) 2020-02-21 01:38:00 Fausto [facility]iga [facility]ONAVIRUS COVID-19 2020-02-20 23:07:00 Hudson Santamaria [facility] TESTING [facility] EKG-12 LEAD 2020-02-20 22:28:58 Hudson Santamaria [facility] XR CHEST 2 VW 2020-02-20 22:20:53 Hudosn Santamaria [facility] CT HEAD WO CONTRAST 2020-02-20 22:18:00 Hudson Santamaria [facility] NOTICE OF PRIVACY 2020-02-20 22:13:06 Doctor Unassigned, [facility] PRACTICES [facility] LIPASE 2020-02-20 22:05:00 Hudson Santamaria [facility] MAGNESIUM 2020-02-20 22:05:00 Geno Montenegro [facility] AMMONIA, PLASMA 2020-02-20 22:05:00 Hudson Santamaria [facility] TROPONIN I 2020-02-20 22:05:00 Hudson Santamaria [facility] COMP. METABOLIC PANEL 2020-02-20 22:05:00 Hudson Santamaria [facility] ([id number]) [facility] LIPID PANEL ([id number])(TOTAL 2020-02-20 22:05:00 Geno Montenegro [facility] CHOLESTEROL, [facility] TRIGLYCERIDES, HDL) CBC WITH DIFFERENTIAL 2020-02-20 22:05:00 Hudson Santamaria [facility] GLYCOSYLATED HEMOGLOBIN 2020-02-20 22:05:00 Geno Montenegro [facility] (A1C) [facility] URINALYSIS 2020-02-20 22:05:00 Hudosn Santamaria [facility] EKG-12 LEAD 2020-02-20 21:52:17 Hudson Santamaria [facility] Plan of Care Planned Activity Planned Date Details Comments Source Future Scheduled 2024-05-[address] [facility] Test 00:00[facility]00 [facility] Screening (12+) [code = Tobacco Cessation Counseling and Screening (12+)] Future Scheduled 2023-07-17 Influenza Vaccine (#1) [facility] 00:00:00 [code = Influenza Medical Ce nter Vaccine (#1)] Future Scheduled 2023-06-24 SHINGLES VACCINES (1 Met [facility] Test 10:18:26 of 2) [code = SHINGLES VACCINES (1 of 2)] Future Scheduled 2023-06-24 HEPATITIS B VACCINES Met [facility] Test 10:18:26 (1 of 3 - Risk 3-dose series) [code = HEPATITIS B VACCINES (1 of 3 - Risk 3-dose series)] Future Scheduled 2023-06-24 COVID-19 VACCINE (3 - [facility] Test 10:18:26 Moderna series) [code = COVID-19 VACCINE (3 - Moderna series)] Future Scheduled 2023-06-24 INFLUENZA VACCINE [facility] Test 10:18:26 [code = INFLUENZA VACCINE] Future Scheduled 2023-06-[address] [facility] Test 10:18:26 malignant neoplasm of colon (procedure) [code = 162904674] Future Scheduled 2023-06-[address] [facility] Test 10:18:26 malignant neoplasm of colon (procedure) [code = 783507835] Future Scheduled 2023-06-[address] [facility] Test 10:18:26 malignant neoplasm of colon (procedure) [code = 168751063] Future Scheduled 2023-06-24 DIABETES: RETINAL EYE [facility] Test 10:18:26 EXAM [code = DIABETES: RETINAL EYE EXAM] Future Scheduled 2023-06-24 DIABETIC FOOT EXAM [facility] Test 10:18:26 [code = DIABETIC FOOT EXAM] Future Scheduled 2023-06-[address] [facility] Test 10:18:26 SCREENING [code = BREAST CANCER SCREENING] Future Scheduled 2023-06-[address] [facility] Test 10:18:26 malignant neoplasm of colon (procedure) [code = 188190694] Future Scheduled 2023-06-[address] [facility] Test 10:18:26 malignant neoplasm of colon (procedure) [code = 342506314] Future Scheduled 2023-06-[address] [facility] Test 13:10:15 malignant neoplasm of colon (procedure) [code = 711170796] Future Scheduled 2023-06-[address] [facility] Test 13:10:15 malignant neoplasm of colon (procedure) [code = 719099188] Future Scheduled 2023-06-[address] [facility] Test 13:10:15 malignant neoplasm of colon (procedure) [code = 817114999] Future Scheduled 2023-06-12 DIABETES: RETINAL EYE [facility] Test 13:10:15 EXAM [code = DIABETES: RETINAL EYE EXAM] Future Scheduled 2023-06-12 DIABETIC FOOT EXAM [facility] Test 13:10:15 [code = DIABETIC FOOT EXAM] Future Scheduled 2023-06-[address] [facility] Test 13:10:15 SCREENING [code = BREAST CANCER SCREENING] Future Scheduled 2023-06-[address] [facility] Test 13:10:15 malignant neoplasm of colon (procedure) [code = 484020668] Future Scheduled 2023-06-[address] [facility] Test 13:10:15 malignant neoplasm of colon (procedure) [code = 973677887] Future Scheduled 2023-06-12 SHINGLES VACCINES (1 Met [facility] Test 13:10:15 of 2) [code = SHINGLES VACCINES (1 of 2)] Future Scheduled 2023-06-12 HEPATITIS B VACCINES Met [facility] Test 13:10:15 (1 of 3 - Risk 3-dose series) [code = HEPATITIS B VACCINES (1 of 3 - Risk 3-dose series)] Future Scheduled 2023-06-12 COVID-19 VACCINE (3 - [facility] Test 13:10:15 Moderna series) [code = COVID-19 VACCINE (3 - Moderna series)] Future Scheduled 2023-06-12 INFLUENZA VACCINE [facility] Test 13:10:15 [code = INFLUENZA VACCINE] Future Scheduled 2023-05-[address] [facility] Test 11:51:09 malignant neoplasm of colon (procedure) [code = 917114685] Future Scheduled 2023-05-[address] [facility] Test 11:51:09 malignant neoplasm of colon (procedure) [code = 326009316] Future Scheduled 2023-05-[address] [facility] Test 11:51:09 malignant neoplasm of colon (procedure) [code = 660283325] Future Scheduled 2023-05-15 DIABETES: RETINAL EYE [facility] Test 11:51:09 EXAM [code = DIABETES: RETINAL EYE EXAM] Future Scheduled 2023-05-15 DIABETIC FOOT EXAM [facility] Test 11:51:09 [code = DIABETIC FOOT EXAM] Future Scheduled 2023-05-15 BREAST CANCER [facility] Test 11:51:09 SCREENING [code = BREAST CANCER SCREENING] Future Scheduled 2023-05-15 [facility]ening for [facility] Test 11:51:09 malignant neoplasm of colon (procedure) [code = 606745761] Future Scheduled 2023-05-15 [facility] Test 11:51:09 malignant neoplasm of colon (procedure) [code = 609152538] Future Scheduled 2023-05-15 SHINGLES VACCINES (1 Met [facility] Test 11:51:09 of 2) [code = SHINGLES VACCINES (1 of 2)] Future Scheduled 2023-05-15 HEPATITIS B VACCINES Met [facility] Test 11:51:09 (1 of 3 - Risk 3-dose series) [code = HEPATITIS B VACCINES (1 of 3 - Risk 3-dose series)] Future Scheduled 2023-05-15 COVID-19 VACCINE (3 - [facility] Test 11:51:09 Moderna series) [code = COVID-19 VACCINE (3 - Moderna series)] Future Scheduled 2023-05-15 INFLUENZA VACCINE [facility] Test 11:51:09 [code = INFLUENZA VACCINE] Future Scheduled 2022-11-[address] [facility] Test 00:00:00 (12+) [code = Medical Center DEPRESSION SCREENING (12+)] Future Scheduled 2022-11-16 FALLS RISK SCREENING [facility] Test 00:00:00 [code = FALLS RISK Medical C enter SCREENING] Future Scheduled 2021-04-01 COVID-19 VACCINE (3 - [facility]00 Booster for Moderna [facility] Center series) [code = COVID-19 VACCINE (3 - Booster for Moderna series)] Future Scheduled 2016-11-[address] [facility] [facility] 00:00:00 WELLNESS (YEAR 2 or Medical Center FIRST YEAR if no IPPE) [code = MEDICARE ANNUAL WELLNESS (YEAR 2 or FIRST YEAR if no IPPE)] Future Scheduled 2000 SHINGLES VACCINES ([address] [facility] Test 00:00:00 of 2) [code = SHINGLES Medic al Center VACCINES (1 of 2)] Future Scheduled 1969 DTAP/TDAP/TD VACCINES [facility] 00:00:00 (1 - Tdap) [code = Medical C enter DTAP/TDAP/TD VACCINES (1 - Tdap)] Future Scheduled [address] [facility] 00[facility]:00 malignant neoplasm of Medica l Center breast (procedure) [code = 707238268] Future Scheduled [address] [facility] 00:00:00 (combo) [code = CT Medical C enter Colonography (combo)] Future Scheduled [address] [facility] Test 00:00:00 malignant neoplasm of Medica l Center colon (procedure) [code = 787514845] Future Scheduled [address] [facility] Test 00:00:00 malignant neoplasm of Medica l Center colon (procedure) [code = 894730050] Future Scheduled 1950 DXA SCAN [code = DXA [facility] Test 00:00:00 SCAN] [facility] Future Scheduled [address] [facility] Test 00:00:00 malignant neoplasm of Medica l Center colon (procedure) [code = 421827859] Future Scheduled [address] [facility] [facility] Test 00:00:00 malignant neoplasm of Medica l Center colon (procedure) [code = 668827499] Future Scheduled 1950 Sigmoidoscopy [code [facility] Start End Encounter Admission Attending Care Care Encounter Source Date/Time Date/Time Type Type Clinicians Facility Department ID 2023-06-16 Outpatient Ledesma, STLMLC STLC [id number] Common 11:16:00 Jacek [id number] [facility] 2023-05-26 Outpatient Ledesma, STLMLC ST[facility] [id number] Common 14:43:00 Jacek [id number] [facility] 2023-05-12 Outpatient Ledesma, STLMLC STLC [id number] Common 07:33:00 Jacek [id number] [facility] 2022-09-19 Outpatient Ledesma, STLMLC STLC Common 10:51:03 Jacek [facility] 2022-06-23 Outpatient Ledesma, STLMLC STLMLC Common 10:57:01 Jacek [facility] 2022-06-05 Outpatient Ledesma, STLMLC STLMLC Common 11:06:02 Jacek [facility] 2022-05-21 Outpatient Ledesma, STLMLC STLMLC Common 13:20:02 Jacek [facility] 2021-12-11 Outpatient Ledesma, STLMLC STLMLC Common 13:53:57 Jacek [facility] 2021-12-11 Outpatient Ledesma, STLMLC STLMLC Common 13:09:15 Jacek [id number] [facility] 2021-12-11 Outpatient Ledesma, STLMLC STLMLC Common 13:08:13 Jacek [id number] [facility] 2021-12-11 Outpatient Ledesma, STLMLC STLMLC Common 12:48:42 Jacek [id number] [facility] 2021-12-11 Outpatient Ledesma, STLMLC STLMLC Common 12:47:29 Jacek [id number] [facility] 2021-12-11 Outpatient Ledesma, STLMLC STLMLC Common 12:38:39 Jacek [id number] [facility] 2021-12-11 Outpatient Ledesma, STLMLC STLMLC Common 12:38:12 Jacek [id number] [facility] 2021-02-15 Inpatient [facility] [id number] [facility] 12:37:[address] [facility] 2023-06-24 2023-06-24 Telephone [id number] [facility]i 10:00:00 10:15:[id number] 3.430.2.7 Hospit a .3.843380 l .8 2023-06-24 2023-06-24 Outpatient [facility] [id number] [place] 00:00:00 00:00:[address] 2023-06-15 2023-06-15 Office Sadaf, 1.2.840.8 [id number] [facility]i 14:15:00 15:04:40 Visit Hayes Rosas 05669.1.1 961 s t 3.430.2.7 Hospit a .3.452091 l .8 2023-06-15 2023-06-15 Telephone Murphy, 1.2.840.1 [id number] [facility]i 00:00:00 00:00:[address] 3.430.2.7 Hospit a .3.745346 l .8 2023-06-15 2023-06-15 Outpatient [facility] [facility] [id number] [place] 00:00:00 00:00:00 HAYES [address] 2023-06-14 2023-06-14 Refill Betina 1.2.840.1 [id number] Methodi 00:00:00 00:00:[address] [facility] 3.430.2.7 Hospi ta .3.161588 l .8 2023-06-14 2023-06-14 Refill Betina 1.2.840.1 [id number] 3262 Methodi 00:00:00 00:00:[address] [facility] 3.430.2.7 Hospi ta .3.717965 l .8 2023-05-28 2023-05-28 [facility], 1.2.840.1 [id number] 2 [id number] Methodi 11:00:56 23:59:[address]es 22520.1.[address] 3.430.2.7 Hospit a .3.533760 l .8 2023-05-28 2023-05-28 [facility], 1.2.840.1 [id number] 2 [id number] Methodi 11:00:56 23:59:00 Encounter Nabeel 86196.1.[address] 3.430.2.7 Hospit a .3.257556 l .8 2023-05-28 2023-05-28 Office Egwim, 1.2.840.1 [id number] 5379 Methodi 15:00:00 15:15:00 Visit Sharron Correa 50817.1.[address] 3.430.2.7 Hospit a .3.830004 l .8 2023-05-28 2023-05-28 Office Egwim, 1.2.840.1 [id number] Methodi 15:00:00 15:15:00 Visit Sharron Correa 70599.1.[address] 3.430.2.7 Hospit a .3.368695 l .8 2023-05-28 2023-05-28 [facility], 1.2.840.1 [id number] 2 [id number] Methodi 09:51:07 10:59:00 Encounter Nabeel 25754.1.[address] 3.430.2.7 Hospit a .3.288248 l .8 2023-05-28 2023-05-28 [facility], 1.2.840.1 [id number] 2 [id number] Methodi 09:51:07 10:59:00 Encounter Nabeel 74054.1.[address] 3.430.2.7 Hospit a .3.558501 l .8 2023-05-28 2023-05-28 Outpatient [facility] 669 [id number] [place] 00:00:00 00:00:00 NABEEL [address] 2023-05-28 2023-05-28 Outpatient [facility] [id number] [place] 00:00:00 00:00:00 ANTOINETTECONNIE Vernon Artie capellan st 2023-05-15 2023-05-18 Inpatient CECELIA [facility] [id number] [facility] 20:05:00 11:38:00 VIVIAN 2023-05-15 2023-05-18 [facility] Marah Brown [facility] [id number] 20:05:00 11:38:00 Encounter Harrison [facility]lego [facility]23-05-16 2023-05-16 Anesthesia Karan Lopes [facility] [id number] [facility] 12:53:00 13:37:00 Event Wilmer Sandoval [facility] 2023-05-16 2023-05-16 Surgery [facility] [id number] 11:00:00 11:59:00 [facility] 2023-04-08 2023-04-08 Orders Jerry 1.2.840.1 [id number] Methodi 00:00:00 00:00:00 Only Rufino 63489.1.[address] 3.430.2.7 Hospit a .3.672362 l .8 2023-04-08 2023-04-08 Outpatient [facility] [id number] [place] 00:00:00 00:00:00 CRISTOFER [address] 2023-04-08 2023-04-08 Orders Jerry 1.2.840.1 [id number] 47019 Methodi 00:00:00 00:00:00 Only Rufino 05989.1.[address] 3.430.2.7 Hospit a .3.806282 l .8 2023-03-06 2023-03-06 Telephone Manny 1.2.840.6 [id number] Methodi 00:00:00 00:00:[address] 3.430.2.7 Hospit a .3.621579 l .8 2023-03-06 2023-03-06 Telephone Manny 1.2.840.8 [id number] 577 [id number] Methodi 00:00:00 00:00:[address] 3.430.2.7 Hospit a .3.672341 l .8 2022-12-11 2022-12-11 [facility], 1.2.840.1 [id number] 2 [id number] Methodi 10:27:30 23:59:00 Encounter Nabeel 88915.1.[address] 3.430.2.7 Hospit a .3.203407 l .8 2022-12-11 2022-12-11 [facility], 1.2.840.1 [id number] 2 [id number] Methodi 10:27:30 23:59:00 Encounter Nabeel 68421.1.[address] 3.430.2.7 Hospit a .3.393675 l .8 2022-12-11 2022-12-11 Office Egwim, 1.2.840.1 [id number] 7043 Methodi 15:00:00 15:15:00 Visit Sharron Correa 24174.1.[address] 3.430.2.7 Hospit a .3.362075 l .8 2022-12-11 2022-12-11 Office Egwim, 1.2.840.1 [id number] 1954 Methodi 15:00:00 15:15:00 Visit Sharron Correa 40978.1.[address] 3.430.2.7 Hospit a .3.039751 l .8 2022-12-11 2022-12-11 [facility], 1.2.840.1 [id number] 2 [id number] Methodi 08:44:26 10:26:00 Encounter Nabeel 18811.1.[address] 3.430.2.7 Hospit a .3.928586 l .8 2022-12-11 2022-12-11 [facility], 1.2.840.1 [id number] 2 [id number] Methodi 08:44:26 10:26:00 Encounter Nabeel 27573.1.[address] 3.430.2.7 Hospit a .3.051242 l .8 2022-12-11 2022-12-11 Travel 1.2.840.1 1.2.818.663 2308 [id number] Methodi 00:00:00 00:00:[address] 3.430.2.7 0.2.7.3.698 Ho spita .3.677184 084.8 l .8 2022-12-11 2022-12-11 Outpatient SALINAS, [facility] [id number] [place] 00:00:00 00:00:00 NABEEL [address] 2022-12-11 2022-12-11 Travel 1.2.840.1 1.2.471.172 4231 [id number] Methodi 00:00:00 00:00:[address] 3.430.2.7 0.2.7.3.698 Ho spita .3.490797 084.8 l .8 2022-11-26 2022-11-26 (TEL) STLMLC STLMLC [id number] Co mmon 00:00:00 00:00:00 [facility] 2022-11-24 2022-11-24 Telephone Watt, 1.2.840.1 [id number] 21 [id number] Methodi 00:00:00 00:00:[address] 3.430.2.7 Hospit a .3.211424 l .8 2022-11-24 2022-11-24 Telephone Watt, 1.2.840.1 [id number] 21 [id number] Methodi 00:00:00 00:00:[address] 3.430.2.7 Hospit a .3.881501 l .8 2022-11-24 2022-11-24 Telephone Watt, 1.2.840.1 [id number] 21 [id number] Methodi 00:00:00 00:00:[address] 3.430.2.7 Hospit a .3.192913 l .8 2022-11-24 2022-11-24 Telephone Watt, 1.2.840.1 [id number] 21 [id number] Methodi 00:00:00 00:00:[address] 3.430.2.7 Hospit a .3.371976 l .8 2022-10-02 2022-10-02 Telephone Biere, 1.2.840.1 [id number] 2099 735510 Methodi 00:00:00 00:00:[address] 3.430.2.7 Hospit a .3.597174 l .8 2022-10-02 2022-10-02 Telephone Biere, 1.2.840.1 [id number] 2099 067530 Methodi 00:00:00 00:00:[address] 3.430.2.7 Hospit a .3.359289 l .8 2022-10-01 2022-10-01 (TEL) STLC STLMLC [id number] Co mmon 00:00:00 00:00:00 [facility] 2022-09-26 2022-09-26 Orders [place], 1.2.840.1 [id number] 81717 Methodi 00:00:00 00:00:00 Only Rufino 51614.1.[address] 3.430.2.7 Hospit a .3.932055 l .8 2022-09-26 2022-09-26 (TEL) STLMLC STLMLC [id number] Co mmon 00:00:00 00:00:00 [facility] 2022-09-26 2022-09-26 Orders [place], 1.2.840.1 [id number] 57852 Methodi 00:00:00 00:00:00 Only Rufino 35469.1.[address] 3.430.2.7 Hospit a .3.827704 l .8 2022-09-23 2022-09-23 OFFICE STLMLC STLMLC [id number] Co mmon 00:00:00 00:00:00 VISIT [facility] LEVEL 4 [facility] 2022-09-18 2022-09-18 (TEL) STLMLC STLMLC [id number] Co mmon 00:00:00 00:00:00 [facility] 2022-08-16 2022-08-16 Orders [place], 1.2.840.1 [id number] 64124 Methodi 00:00:00 00:00:00 Only Rufino 81434.1.[address] 3.430.2.7 Hospit a .3.421321 l .8 2022-08-16 2022-08-16 Orders [place], 1.2.840.1 760970929 95447 30934 Methodi 00:00:00 00:00:00 Only Rufino 32557.1.[address] 3.430.2.7 Hospit a .3.232350 l .8 2022-08-13 2022-08-13 Orders [place], 1.2.840.1 [id number] 76450 90262 Methodi 00:00:00 00:00:00 Only Rufino 34785.1.[address] 3.430.2.7 Hospit a .3.406452 l .8 2022-08-13 2022-08-13 Orders [place], 1.2.840.1 [id number] 87110 52592 Methodi 00:00:00 00:00:00 Only Rufino 24667.1.[address] 3.430.2.7 Hospit a .3.280186 l .8 2022-06-24 2022-06-24 OFFICE STLC STLC [id number] Co mmon 00:00:00 00:00:00 VISIT [facility] LEVEL 4 [facility] 2022-06-24 2022-06-24 [facility] [id number] Co mmon 00:00:00 00:00:00 [facility] 2022-06-05 2022-06-05 Outpatient AMBREEN_BALJEET KEARNS HIDAVID 943 [place] 02:44:00 02:44:00 RAJANI 0721 drew [facility] 2022-05-21 2022-05-21 (TEL) STLC STLC [id number] Co mmon 00:00:00 00:00:00 [facility] 2022-05-21 2022-05-21 OFFICE STLMLC STLMLC [id number] Co mmon 00:00:00 00:00:00 VISIT EST Spir it PT LEVEL 3 - CHI [facility] 2022-05-15 2022-05-15 [facility], 1.2.840.1 [id number] 2 [id number] Methodi 14:00:00 23:59:00 Encounter Nabeel 65850.1.[address] 3.430.2.7 Hospit a .3.410871 l .8 2022-05-15 2022-05-15 [facility], 1.2.840.1 [id number] 2 [id number] Methodi 09:16:20 13:59:00 Encounter Nabeel 72278.1.[address] 3.430.2.7 Hospit a .3.677217 l .8 2022-05-15 2022-05-15 Office Chantell, 1.2.840.1 [id number] 6796 Methodi 13:15:00 13:30:00 Visit Sharron RogersKennedy 89654.1.[address] 3.430.2.7 Hospit a .3.749738 l .8 2022-05-15 2022-05-15 Outpatient [facility] [place] 856 [id number] [place] 00:00:00 00:00:00 NABEEL [address] [facility] 2022-05-15 2022-05-15 Travel 1.2.840.1 1.2.591.862 3407 763968 Methodi 00:00:00 00:00:[address] 3.430.2.7 0.2.7.3.698 Ho spita .3.087461 084.8 l .8 2022-03-25 2022-03-25 OFFICE STLMLC STLMLC [id number] Co mmon 00:00:00 00:00:00 VISIT Spirit ESTAB PT - CHI LEVEL 4 [facility] 2022-03-25 2022-03-25 SUB ANNUAL STLMLC STLMLC [id number] Common 00:00:00 00:00:00 MCR Spirit WELLNESS - CHI VISIT [facility] 2022-02-06 2022-02-06 (TEL) STLMLC STLMLC [id number] Co mmon 00:00:00 00:00:00 Spirit - [facility] 2022-01-27 2022-01-27 Outpatient SADHU, [facility] [id number] [place] 00:00:00 00:00:00 SAMIRA 807 Method i 2022-01-02 2022-01-02 Outpatient EGWIM, [facility] [id number] [place] 00:00:00 00:00:00 CHUKWUMA 304 Metho di 2022-01-02 2022-01-02 Outpatient EGWIM, [facility] [id number] [place] 00:00:00 00:00:00 CHUKWUMA 760 Metho di 2022-01-02 2022-01-02 Outpatient ANKOMA-SEY, [facility] [id number] [place] 00:00:00 00:00:00 NABEEL 509 Method i 2021-11-05 2021-11-05 OFFICE STLMLC STLMLC [id number] Co mmon 00:00:00 00:00:00 VISIT Spirit ESTAB PT - CHI LEVEL 4 [facility] 2021-11-04 2021-11-04 (TEL) STLMLC STLMLC [id number] Co mmon 00:00:00 00:00:00 Spirit - [facility] 2021-10-04 2021-10-04 Outpatient JEN, [facility] [id number] 341 [place] 00:00:00 00:00:00 AKASH 137 Meth kiran 2021-09-30 2021-09-30 Outpatient FARIBA, [facility] [id number] [place] 00:00:00 00:00:00 IMAD 004 Method i 2021-09-30 2021-09-30 Outpatient FARIBA, [facility] [id number] [place] 00:00:00 00:00:00 IMAD [address] 2021-09-23 2021-09-23 (TEL) STLMLC STLMLC [id number] Co mmon 00:00:00 00:00:00 Spirit - [facility] 2021-09-17 2021-09-17 (TEL) STLC STLC [id number] Co mmon 00:00:00 00:00:00 [facility] 2021-09-16 2021-09-16 (TEL) STLMLC STLMLC [id number] Co mmon 00:00:00 00:00:00 [facility] 2021-09-10 2021-09-10 Outpatient SHERICE, [facility] [id number] [place] 00:00:00 00:00:00 RAFIK 817 Method i 2021-09-10 2021-09-10 Outpatient SHERICE, [facility] [id number] [place] 00:00:00 00:00:00 RAFIK 396 Method i 2021-09-10 2021-09-10 Outpatient SHERICE, [facility] [id number] [place] 00:00:00 00:00:00 RAFIK 803 Method i 2021-09-10 2021-09-10 Outpatient SHERICE, [facility] [id number] [place] 00:00:00 00:00:00 RAFIK 397 Method i 2021-09-10 2021-09-10 Outpatient SHERICE, [facility] [id number] [place] 00:00:00 00:00:00 RAFIK 620 Method i 2021-09-10 2021-09-10 Outpatient SHERICE, [facility] [id number] [place] 00:00:00 00:00:00 RAFIK 538 Method i 2021-09-09 2021-09-09 Outpatient SHERICE, [facility] [id number] [place] 00:00:00 00:00:00 RAFIK 445 Method i 2021-09-09 2021-09-09 Outpatient SHERICE, [facility] [id number] [place] 00:00:00 00:00:00 RAFIK 444 Method i 2021-09-09 2021-09-09 Outpatient SHERICE, [facility] [id number] [place] 00:00:00 00:00:00 RAFIK 443 Method i 2021-09-09 2021-09-09 Outpatient SHERICE, [facility] [id number] [place] 00:00:00 00:00:00 RAFIK 618 Method i 2021-09-09 2021-09-09 Outpatient SHERICE, [facility] [id number] [place] 00:00:00 00:00:00 RAFIK 916 Method i 2021-09-09 2021-09-09 Outpatient SHERICE, [facility] [id number] [place] 00:00:00 00:00:00 RAFIK 616 Method i 2021-09-09 2021-09-09 Outpatient SHERICE, [facility] [id number] [place] 00:00:00 00:00:00 RAFIK 619 Method i 2021-09-09 2021-09-09 Outpatient SHERICE, [facility] [id number] [place] 00:00:00 00:00:00 RAFIK 622 Method i 2021-09-09 2021-09-09 Outpatient SHERICE, [facility] [id number] [place] 00:00:00 00:00:00 RAFIK 446 Method i 2021-09-02 2021-09-02 (TEL) STLMLC STLMLC [id number] Co mmon 00:00:00 00:00:00 Spirit - [facility] 2021-08-13 2021-08-13 OFFICE STLMLC STLMLC [id number] Co mmon 00:00:00 00:00:00 VISIT Spirit ESTAB PT - CHI LEVEL 4 [facility] 2021-05-30 2021-05-30 Outpatient R [facility] [id number] [facility] 10:00:00 10:00:00 CATRACHO [facility] 2021-05-27 2021-05-27 [facility] 1.2.840.114 [id number] Univers 08:14:50 23:59:00 Encounter Catracho henry 350.1.13.10 itijeoma [facility] 4.2.7.2.686 [facility] [id number] [facility] [address] 2021-05-27 2021-05-27 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 840.114 [id number] [facility] 07:47:38 08:47:38 Visit Catracho Thornton 350.1.1 3.10 [place] [id number] [address] 2021-05-14 2021-05-14 Outpatient STLMLC STLMLC [id number] Common 00:00:00 00:00:00 [facility] 2021-05-14 2021-05-14 Outpatient STLMLC STLMLC [id number] Common 00:00:00 00:00:00 [facility] 2021-05-02 2021-05-02 [facility] 1.2.840.114 [id number] Univers 08:50:45 23:59:00 Encounter Catracho henry 350.1.13.10 [place] [id number] [facility] 806 [place] 2021-05-02 2021-05-02 Nurse 1, Adc Infusion Chair [facility] 1.2. 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 Juan, Adc Lab Main [facility] 1.2.8 40.114 [id number] Univers 10:18:06 10:33:06 Visit Catracho Thornton 350.1.1 3.10 [place] [id number] [address] 2021-05-02 2021-05-02 Outpatient R [facility] [id number] Univers 10:00:00 10:00:00 Carl CATRACHO a[facility] o [facility] 2021-04-11 2021-04-11 Outpatient STLMLC STLMLC [id number] Common 00:00:00 00:00:00 [facility] 2021-04-11 2021-04-11 Outpatient STLMLC STLMLC [id number] Common 00:00:00 00:00:00 [facility] 2021-03-28 2021-03-28 Outpatient R [facility] [id number] Univers 08:45:11 23:59:00 CATRACHO [facility] 2021-03-28 2021-03-28 [facility] 1.2.840.114 [id number] Univers 08:45:11 23:59:00 Encounter Catracho henry 350.1.13.10 [place] 4[place].2.[place] [id number] [facility] 806 [address] 2021-03-28 2021-03-28 Farm Equipment Mechanic Apprentice Juan, [facility] Lab Main [facility] 1.2.8 40.114 [id number] Univers 10:30:35 10:45:35 Visit Catracho Thornton 350.1.1 3.10 [place] [phone] [address] 2021-03-28 2021-03-28 Nurse 1, [facility] Infusion Nurse [facility] 1.2. 840.114 [id number] Univers 08:45:52 09:15:52 Visit Catracho Thornton 350.1.1 3.10 [place] 4[place].2.[place] [id number] [facility] [address] 2021-03-28 2021-03-28 Orders Doctor OLAMIDE 1.2.840.114 [id number] Univers 00:00:00 00:00:00 Only Unassigned, RAFFY 350.1.13.10 [facility] [place] [facility] 4.2.7.2.686 Dimitrios as [phone] [facility] [address] 2021-03-21 2021-03-21 Orders Doctor OLAMIDE 1.2.840.114 [id number] Univers 00:00:00 00:00:00 Only Unassigned, RAFFY 350.1.13.10 [place] [facility] 4.2.7.2.686 Dimitrios as [id number] [facility] [address] 2021-03-07 2021-03-07 Outpatient STLMLC STLMLC [id number] Common 00:00:00 00:00:00 [facility] 2021-03-04 2021-03-04 Outpatient STLMLC STLMLC [id number] Common 00:00:00 00:00:00 [facility] 2021-03-04 2021-03-04 Outpatient STLMLC STLMLC [id number] Common 00:00:00 00:00:00 [facility] 2021-02-20 2021-02-20 Outpatient STLMLC STLMLC [id number] Common 00:00:00 00:00:00 [facility] 2021-02-14 2021-02-14 Outpatient STLMLC STLMLC [id number] Common 00:00:00 00:00:00 [facility] 2021-01-29 2021-01-29 [facility] 1.2.840.114 [id number] Univers 10:00:00 23:59:00 Catracho Manley 350.1.13.10 [place] [id number] [facility] [address] 2021-01-29 2021-01-29 [facility] 1.2.840.114 [id number] 10:00:00 23:59:00 Encounter Catracho henry 350.1.13.10 [place] 4.2.7.2.686 [place] [id number] 806 2021-01-29 2021-01-29 Nurse 1, [facility] Infusion Chair [facility] 1.2. 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 Mechanic Apprentice Juan, [facility] Lab Main [facility] 1.2.8 40.114 [id number] [facility] 11:59:37 12:14:37 Visit Catracho Thornton 350.1.1 3.10 [place].2.[place] [phone] Co dical [address] 2021-01-29 2021-01-29 Farm Equipment Mechanic Apprentice Juan [facility] 1.2.840.114 [id number] 11:59:37 12:14:37 Visit Lab Main [place] 350.1.13.10 [place] 4.2.7.2.686 Professio [id number] [address] 2021-01-29 2021-01-29 Outpatient R [facility] [id number] Univers 11:00:00 11:00:00 ity of [facility] 2021-01-29 2021-01-29 Orders Doctor QUIÑONEZ 1.2.840.114 [id number] Univers 00:00:00 00:00:00 Only Unassigned, RAFFY 350.1.13.10 it[place] [facility] 4.2.7.2.686 Dimitrios as [id number] [facility] [address] 2021-01-29 2021-01-29 Orders Doctor OLAMIDE 1.2.840.114 [id number] 00:00:00 00:00:00 Only Unassigned, RAFFY 350.1.13.10 [place] [facility] 4.2.7.2.686 [id number] 009 2021-01-22 2021-01-22 Outpatient STLMLC STLC [id number] Common 00:00:00 00:00:00 Spirit - [facility] 2021-01-07 2021-01-07 Outpatient R [facility] [id number] Univers 00:00:00 00:00:00 CATRACHO [facility] 2021-01-03 2021-01-03 Outpatient R [facility] [id number] Univers 11:47:32 23:59:00 CATRACHO Henry [facility] 2021-01-03 2021-01-03 [facility] 1.2.840.114 [id number] Univers 11:30:00 23:59:00 Encounter Catracho henry 350.1.13.10 [place] [id number] [facility] [address] 2021-01-03 2021-01-03 [facility] 1.2.840.114 [id number] 11:30:00 23:59:00 Encounter Catracho henry 350.1.13.10 [place] 4.2.7.2.686 [place] [id number] 806 2021-01-03 2021-01-03 Nurse 1, Adc Infusion [facility] 1.2. 840.114 [id number] Univers 13:06:59 14:06:59 Visit Catracho Thornton 350.1.1 3.10 [place] [id number] [facility] [address] 2021-01-03 2021-01-03 Nurse 1, [facility] 1.2.840.114 [id number] 13:06:59 14:06:59 Visit Infusion [place] 350.1.13.10 Chair Ten[place] 4.2.7.2.686 Surgical [phone] [place] 053 2021-01-03 2021-01-03 Farm Equipment [employer]ic Apprentice Juan, [facility] Lab Main [place] 1.2.8 40.114 [id number] [facility] 13:43:10 13:58:10 Visit Catracho Thornton 350.1.1 3.10 [place]2.[place] [phone] Co dical [address] 2021-01-03 2021-01-03 Farm Equipment Mechanic Apprentice Juan, [facility] 1.2.840.114 [id number] 13:43:10 13:58:10 Visit Lab Main [place] 350.1.13.10 [place] 4.2.7.2.686 Professio [phone] [address] 2021-01-03 2021-01-03 Orders Doctor OLAMIDE 1.2.840.114 [id number] Univers 00:00:00 00:00:00 Only Unassigned, RAFFY 350.1.13.10 [facility] of [place] [facility] 4.2.7.2.686 Dimitrios as [phone] [address] 2021-01-03 2021-01-03 Orders Doctor QUIÑONEZ 1.2.840.114 [id number] 00:00:00 00:00:00 Only Unassigned, RAFFY 350.1.13.10 [place] [facility] 4.2.7.2.686 [phone] 009 2021-01-01 2021-01-01 Outpatient R [facility] [id number] Univers 12:00:00 12:00:00 ity of [facility] 2020-12-25 2020-12-25 Orders Doctor OLAMIDE Kovacs.2.840.114 [id number] Univers 00:00:00 00:00:00 Only Unassigned, RAFFY 350.1.13.10 [place] of [place] [facility] 4.2.7.2.686 Dimitrios as [phone] [address] 2020-12-25 2020-12-25 Orders Doctor OLAMIDE 1.2.840.114 [id number] 00:00:00 00:00:00 Only Unassigned, RAFFY 350.1.13.10 [place] [facility] 4.2.7.2.686 [id number] [facility] 2020-12-17 2020-12-17 Outpatient R [facility] [id number] [facility] 00:00:00 00:00:00 GRISEL HenryWISAM chapin em [facility] 2020-11-19 2020-11-19 Outpatient R [facility] [id number] [facility] 12:51:09 23:59:00 GRISEL HenryWISAM chapin em [facility] 2020-11-19 2020-11-19 [facility] 1.2.840.114 [id number] [facility] 12:51:09 23:59:00 Encounter e, Nizar C SPECIALTY 350.1.13.10 [place] AT [id number] Co [address] 2020-11-19 2020-11-19 [facility] 1.2.840.114 8 [id number] 12:51:09 23:59:00 Encounter e, Nizar C SPECIALTY 350.1.13.10 CARE 4.2.7.2.686 CENTER AT [phone] [address] 2020-10-22 2020-10-22 [facility] 1.2.840.114 [id number] [facility] 12:49:53 23:59:00 Encounter e, Nizar C SPECIALTY 350.1.13.10 [place]2.[place] [phone] Co [address] 2020-10-22 2020-10-22 [facility] 12.840.114 7 [id number] 12:49:53 23:59:00 Encounter e, Nizar C SPECIALTY 350.1.13.10 CARE 4.2.7.2.686 CENTER AT [id number] BRAD Castillo [facility] 2020-10-22 2020-10-22 Outpatient R [facility] [id number] Univers 00:00:00 00:00:00 CATRACHO Henry mable tavares [facility] 2020-10-02 2020-10-02 Outpatient R [facility] [id number] Univers 10:00:00 10:00:00 CATRACHO Henry mable chapin em [facility] 2020-10-02 2020-10-02 Farm Equipment Mechanic Apprentice 2, Adc Lab [facility] 1.2.840.114 [id number] [facility] 09:07:59 09:22:59 Visit Catracho Thornton [place] 350.1.1 3.10 [place].2.[place] [phone] Co dical [address] 2020-10-02 2020-10-02 Farm Equipment Mechanic Apprentice 2, Adc Lab [facility] 1.2.840.114 [id number] 09:07:59 09:22:59 Visit [place] 350.1.13.10 [place] 4.2.7.2.686 Professio [phone] [address] 2020-10-02 2020-10-02 Orders Doctor QUIÑONEZ 1.2.840.114 [id number] Univers 00:00:00 00:00:00 Only Unassigned, RAFFY 350.1.13.10 [facility] [place] [facility] 4.2.7.2.686 Dimitrios as [phone] [address] 2020-10-02 2020-10-02 Orders Doctor QUIÑONEZ 1.2.840.114 [id number] 00:00:00 00:00:00 Only Unassigned, RAFFY 350.1.13.10 [facility] 4.2.7.2.686 [id number] 009 2020-03-21 2020-03-21 Orders Doctor OLAMIDE Kovacs.2.840.114 [id number] Univers 00:00:00 00:00:00 Only Unassigned, RAFFY 350.1.13.10 ity of [facility] 4.2.7.2.686 Dimitrios as [id number] [address] 2020-02-25 2020-02-25 Emergency [facility] [id number] Univers 06:23:55 10:13:00 MAVIS ity of [facility] 2020-02-25 2020-02-[address] [facility] ([place], [place]) 1.2.334.513 [id number] Univers 06:23:55 10:13:00 Mavis Pruitt Bowlus 350.1.13.10 ity of [place] [id number] [place] [address]274 Gideon 2020-02-25 2020-02-25 Nurse OLAMIDE Pinedo 1.2.840.114 [id number] Univers 00:00:00 00:00:00 Triage Katlin AKBAR 350.1.13.10 it y of [facility] 4.2.7.2.686 Dimitrios as [phone] [facility] [address] 2020-02-23 2020-02-23 Transition Kenia Beltran 1.2.840.114 [id number] Univers 00:00:00 00:00:00 of Care Jade Salinas 350.1.13.10 i ty of [place]7.2.[place] [phone] [facility] [address] 2020-02-20 2020-02-22 Hospital Hudson Santamaria [facility] 1.2.840.11 4 [id number] Univers 16:43:26 11:11:00 Encounter Fausto Zuñiga 350.1.13.10 ity of [place] 4[place].2.[place] [phone] [place] [address]271 Gideon 2020-02-20 2020-02-22 Inpatient X FAUSTO ZUÑIGA [facility] REGINA [id number] Univers 16:43:26 11:11:00 ity [facility] Results Test Description Test Time Test Comments Results Result Comments Source Basic metabolic panel 2023-06-14 12:27:00 Test Item Value Reference Range Interpretation Comme nts Glucose (test code = 176 mg/dL 65-139 H Non-fa sting reference 2345-7) interval BUN (test code = 3094-0) 70 mg/dL 7-25 H Creatinine (test code = 2.37 mg/dL 0.60-1.00 H 2160-0) eGFR (test code = 34331-7) 21 See_Comment L T he eGFR is [...] mal. Sodium (test code = 140 mmol/L 708-206 4719-2) Potassium (test code = 4.6 mmol/L 3.5-5.3 2823-3) Chloride (test code = 110 mmol/L 98-110 5-0) CO2 (test code = 2027-) 25 mmol/L 20-32 Calcium (test code = 8.8 mg/dL 8.6-10.4 74641-5) MARY (test code = MARY) FASTING:NO FASTING: NO RAC (test code = RAC) Performing Organization Information: Site ID: RGA [facility] Address: [address] [place] [phone] Director: Kd Koenig Lab Interpretation (test Abnormal code = 94820-0) [facility] [id number] 12:27:00 Test Item Value Reference Range Interpretation Comments Protein (test code = 5.5 g/dL 6.1-8.1 L 2885-2) Albumin (test code = 3.8 g/dL 3.6-5.1 1751-7) Globulin, total 1.7 See_Comment L [Automated (test code = message] The 24600-5) system which generated this result transmitted reference [...] 6768-6) AST (test code = 25 U/L 1919-8) ALT (test code = 12 U/L 05-14-6) MARY (test code = FASTING:NO MARY) FASTING: NO RAC (test code = Performing RAC) Organization Information: Site ID: RGA [facility]: [facility] Address: [address] [place] [phone] Director: Kd Koenig Lab Interpretation Abnormal (test code = 51733-9) [facility] with platelet and uiovjyxbaptp8427-18-97 12:27:00 Test Item Value Reference Range Interpretation Comments WBC (test code = 3.6 See_Comment L [Automated 3109-2) message] The system which generated this result transmitted reference range : 3.8 - 10.8 Thousand/uL. Th e reference range was not used to interpret this result as normal/abnormal . RBC (test code = 2.07 See_Comment L [Automated 129-8) message] The system which generated this result transmitted reference range : 3.80 - 5.10 Million/uL. The reference range was not used to interpret this result as normal/abnormal . HGB (test code = 5.9 g/dL 11.7-15.5 L Verified by 828-7) repeat analysis . HCT (test code = 18.4 % 35.0-45.0 L Verified by 4544-3) repeat analysis . MCV (test code = [...] = Performing RAC) Organization Information: Site ID: [facility] Name: [facility] Lab Address: [address] [place] [phone] Director: Kd Koenig Lab Interpretation Abnormal (test code = 64283-3) [facility] time with [id number] 12:27:00 Test Item Value Reference Range Interpretation Comments INR (test code = 1.2 H Reference R glenn 6301-6) 0.9-1.1Moderate -i ntensity Warfar in Therapy 2.0-3.0Higher-i nt ensity Warfarin Therapy 3.0-4.0 Prothrombin time 12.7 See_Comment H For additio nal (test code = 5902-2) informa tion, please refer tohttp://educat io n.questdiagnost [employer].com/faq/FAQ10 4( This link is being provided for informational/e du cational purpos es only.) [Automat ed message] The system which generated this result transmitted reference range : 9.0 - 11.5 sec. The reference range was not used to interpr et this result as normal/abnormal . MARY (test code = FASTING:NO MARY) FASTING: NO RAC (test code = Performing RAC) Organization Information: Site ID: [facility] Name: [employer] [facility] Lab Address: [address] [place] [address] Director: Kd Koenig Lab Interpretation Abnormal (test code = 54424-5) [facility] metabolic [id number] 12:27:00 Test Item Value Reference Range Interpretation Comments Glucose (test code = 176 mg/dL 65-139 H Non-fa sting 2345-7) reference interval BUN (test code = 70 mg/dL 7-25 H 3094-0) Creatinine (test 2.37 mg/dL 0.60-1.00 H code = 2160-0) eGFR (test code = 21 See_Comment L The eGFR i s based 31651-7) on the CKD-EPI 2020 equation. To calculate the n ew eGFR from a previous Creatinine or Cystatin Cresul t, go to https://www.kid ne y.org/emll alvarado/kdoqi/gfr%5F ca lculator [Automated message] The system which generated this result transmitted reference range : > OR = 60 mL/min/1.73m2. The reference range was not used to interpr et this result as normal/abnormal . BUN/creatinine ratio 30 See_Comment H [Autom ated (test code = 3097-3) message ] The system which generated this result transmitted reference range : 6 - 22 (calc). The reference range was not used to interpr et this result as normal/abnormal . Sodium (test code = 140 mmol/L 650-999 8385-2) Potassium (test code 4.6 mmol/L 3.5-5.3 = 2823-3) Chloride (test code 110 mmol/L 98-110 = 2075-0) CO2 (test code = 25 mmol/L 20-32 2028-07) Calcium (test code = 8.8 mg/dL 8.6-10.4 55124-3) MARY (test code = FASTING:NO MARY) FASTING: NO RAC (test code = Performing RAC) Organization Information: Site ID: RGA Name: [facility] Lab Address: [address] [place] [address] Director: Kd Koenig Lab Interpretation Abnormal (test code = 95546-6) [facility] function [id number] 12:27:00 Test Item Value Reference Range Interpretation Comments Protein (test code = 5.5 g/dL 6.1-8.1 L 2885-2) Albumin (test code = 3.8 g/dL 3.6-5.1 1750-7) Globulin, total 1.7 See_Comment L [Automated (test code = message] The 02129-9) system which generated this result transmitted reference range : 1.9 - 3.7 g/dL (calc). The reference range was not used to interpret this result as normal/abnormal . Albumin/globulin 2.2 See_Comment [Automated ratio (test code = message] The 0) system which generated this result transmitted reference [...] 6768-6) AST (test code = 25 U/L 10 1920-8) ALT (test code = 12 U/L 05-14 1742-6) MARY (test code = FASTING:NO MARY) FASTING: NO RAC (test code = Performing RAC) Organization Information: Site ID: RGA [facility]: [facility] Address: [address] [place] [phone] Director: Kd Koenig Lab Interpretation Abnormal (test code = 62018-6) [facility] with platelet and pglogvpjrjgn9157-27-16 12:27:00 Test Item Value Reference Range Interpretation Comments WBC (test code = 3.6 See_Comment L [Automated 3115-2) message] The system which generated this result transmitted reference range : 3.8 - 10.8 Thousand/uL. Th e reference range was not used to interpret this result as normal/abnormal . RBC (test code = 2.07 See_Comment L [Automated 070-8) message] The system which generated this result transmitted reference range : 3.80 - 5.10 Million/uL. The reference range was not used to interpret this result as normal/abnormal . HGB (test code = 5.9 g/dL 11.7-15.5 L Verified by 138-7) repeat analysis . HCT (test code = 18.4 % 35.0-45.0 L Verified by 1574-3) repeat analysis . MCV (test code = [...] = Performing RAC) Organization Information: Site ID: [facility] Name: [facility] Address: [address] [place], [place] [address] Director: Kd Koenig Lab Interpretation Abnormal (test code = 07045-9) [facility]th[facility] time with [id number] 12:27:00 Test Item Value Reference Range Interpretation Comments INR (test code = 1.2 H Reference R glenn 6301-6) 0.9-1.1Moderate -i ntensity Warfar in Therapy 2.0-3.0Higher-i nt ensity Warfarin Therapy 3.0-4.0 Prothrombin time 12.7 See_Comment H For additio nal (test code = 5902-2) informa tion, please refer tohttp://educat io n.MicroCHIPSdiagnost [employer]/faq/FAQ10 4( This link is being provided for informational/e du cational purpos es only.) [Automat ed message] The system which generated this result transmitted reference range : 9.0 - 11.5 sec. The reference range was not used to interpr et this result as normal/abnormal . MARY (test code = FASTING:NO MARY) FASTING: NO RAC (test code = Performing RAC) Organization Information: Site ID: [facility] Name: [facility] Lab Address: [address] [place] [address] Director: Kd Koenig Lab Interpretation Abnormal (test code = 82949-9) [facility] HospitalHEMOGLOBIN [id number] 12:17:44 Test Item Value Reference Range Interpretation [...] 5.7- 6.4% indicates increased risk for diabetes (prediabetes)."Manager Student Services ID - ADM COMPREHENSIVE METABOLIC [id number] 06:35:39 Test Item Value Reference Range Interpretation [...] not appl icable for dialysis patien ts Manager Student Services ID - MARCOCBC W/PLT COUNT & AUTO [id number] 05:41:19 Test Item Value Reference Range Interpretation [...] 0.00-1.00 PERCENT (BEAKER) (test code = 2801) Creatinine, random [id number] 12:25:17 Test Item Value Reference Range Interpretation Comments Creatinine, Ur 98.4 mg/dL (test code = 2161-8) MARY (test code = Reference Range: No MARY) NormalsOperator ID - BV [facility] CenterCREAT[facility]INE, RANDOM [id number] 12:25:17 Test Item Value Reference Range Interpretation Comments CREATININE URINE (BEAKER) (test 98.4 mg/dL code = 375) Reference Range: No NormalsOperator ID - BVSodium, random utewr0126-90-53 12:23:27Sodium Urine<20meq/L05/17/2023 12:23 PM [facility]OD[facility]ENTERReference Range: No NormalsOperator ID - BVCHI [facility]opaedic HospitalODIUM, RANDOM [id number] 12:23:27 Test Item Value Reference Range Interpretation [...] eGF R is based on the CKD-EPI 202 equation that d oes not use a race coefficientEsti mated GFR is not as accur ate as Creatinine Carrol gutierrez in predicting glom erular filtration rate . Estimated GFR is not appl icable for dialysis patien ts Manager Student Services ID - [id number] 06:07:03 Test Item Value Reference Range Interpretation Comments PHOSPHORUS (BEAKER) 4.3 mg/dL 2.3-4.7 Specimen slightly (test code = 604) hemolyzed Manager Student Services ID - [id number] 06:07:02 Test Item Value Reference Range Interpretation Comments MAGNESIUM (BEAKER) 2.4 mg/dL 1.6-2.6 Specimen slightly (test code = 627) hemolyzed Manager Student Services ID - MARCOCALCIUM, [id number] 05:35:24 Test Item Value Reference Range Interpretation Comments CALCIUM IONIZED (BEAKER) (test 1.13 mmol/L 1.12-1.27 code = 698) PH, BLOOD (BEAKER) (test code = 7.39 1810) PROTHROMBIN TIME/[id number] 05:34:04 Test Item Value Reference Range Interpretation [...] mechanical heart valves.CBC W/PLT COUNT & AUTO [id number] 05:30:37 Test Item Value Reference Range Interpretation [...] 0.00-1.00 PERCENT (BEAKER) (test code = 2801) Protein, random [id number] 21:32:29 Test Item Value Reference Range Interpretation Comments Protein, Urine (test code 0-14 = 2888-6) MARY (test code = MARY) Manager Student Services ID - ADMIN Lab Interpretation (test Normal code = 01870-7) [facility] [id number] 21:32:29 Test Item Value Reference Range Interpretation Comments PROTEIN, URINE (BEAKER) (test code = < mg/dL 0-14 1569) Manager Student Services ID - ADMINUrinalysis w/Qbolttrpari2288-77-31 21:11:20 Test Item Value Reference Range Interpretation Comments Color, UA (test code [place] = 5778-6) Clarity, UA (test Clear code = 5767-9) Specific [place], UA 1.015 1.001-1.035 (test code = 5811-5) pH, UA (test code = 6.0 5.0-8.0 5803-2) Protein, UA (test Negative Negative code = 74276-0) Glucose, UA (test Negative Negative code = 365) Ketones, UA (test Negative Negative code = 2514-8) Bilirubin, UA (test Negative Negative code = 48035-2) Blood, UA (test code Negative Negative = 10106-2) Nitrite, UA (test Negative Negative code = 5802-4) Leukocytes, UA (test Large Negative A code = 5799-2) Urobilinogen, UA 0.2 0.2-1.0 (test code = 80053-4) RBC, UA (test code = 2 See_Comment [Autom ated 88518-2) message] The system which generated this result transmit carlitos reference range : /HPF. The reference range was not used to interpret this result as normal/abnormal . WBC, UA (test code = 37 See_Comment [Autom ated 5821-4) message] The system which generated this result transmit carlitos reference range : /HPF. The reference range was not used to interpret this result as normal/abnormal . Mucus (test code = Rare 8247-9) Squam Epithel, UA 2 See_Comment [Automate d (test code = 28854-8) messag e] The system which generated this result transmit carlitos reference range : /HPF. The reference range was not used to interpret this result as normal/abnormal . Crystals, Urine (test Rare None Seen A code = 61891-7) Specimen Source (test Urine, Clean code = 2795) Catch MARY (test code = MARY) Manager Student Services ID - [auto]Manager Student Services ID - tech Lab Interpretation Abnormal (test code = 89595-3) [facility] W/ [id number] 21:11:20 Test Item Value Reference Range Interpretation Comments COLOR (BEAKER) (test code [place] = 470) CLARITY (BEAKER) (test Clear code [...] SOURCE(BEAKER) (test code Urine, Clean Catch = 9135) Manager Student Services ID - [auto]Manager Student Services ID - techHEMOGLOBIN AND HJBYBZZRAO9379-66-14 16:34:15 Test Item Value Reference Range Interpretation Comments HEMOGLOBIN (BEAKER) (test code = 9.4 GM/DL 11.2-15.7 L 410) HEMATOCRIT (BEAKER) (test code = 29.1 % 34.1-44.9 L 411) Manager Student Services ID - 6000POC-Glucose qpokg1716-58-24 13:51:03 Test Item Value Reference Range Interpretation Comments POC-Glucose Meter (test 155 mg/dL 70-110 H : TE STED AT [facility] code = 1538) [address] [facility], 770 30: Manager Student Services/Techni bravo ID = [id number] for Bethany Koch Lab Interpretation (test Abnormal code = 20739-5) [facility] HospitalPOCT-GLUCOSE [id number] 13:51:03 Test Item Value Reference Range Interpretation Comments POC-GLUCOSE METER 155 mg/dL 70-110 H : TESTED A T [facility] 6720 (BEAKER) (test code = [facility] R [facility], 1538) [address]: Manager Student Services/Techni bravo ID = [id number] for Sa subramanian Bethany COMPREHENSIVE METABOLIC [id number] 01:15:55 Test Item Value Reference Range Interpretation [...] not appl icable for dialysis patien ts Manager Student Services ID - ADMINSpecimen slightly ictericPT/LXCO1710-01-09 00:45:44 Test Item Value Reference Range Interpretation [...] mechanical heart valves.CBC W/PLT COUNT & AUTO [id number] 00:22:14 Test Item Value Reference Range Interpretation [...] in Respiratory specimen by MARICEL with probe yoeyvotxx4897-14-65 17:33:40 Test Item Value Reference Range Interpretation Comments SARS-CoV-2 (COVID-19) RNA Not detected Not-Detected [Presence] in Respiratory specimen by MARICEL with probe detection (test code = 99458-0) Whether patient is employed in a healthcare setting (test code = 26025-8) Whether the patient has symptoms related to condition of interest (test code = 35143-7) Patient was hospitalized because of this condition (test code = 25441-7) Whether the patient was admitted to intensive care unit (ICU) for condition of interest (test code = 23002-4) Whether patient resides in a congregate care setting (test code = 74334-9) [facility]-2 (COVID-19) RNA [Presence] in Respiratory specimen by MARICEL with probe heydddtom4795-09-36 14:25:58 Test Item Value Reference Range Interpretation Comments SARS-CoV-2 (COVID-19) RNA Not detected Not-Detected [Presence] in Respiratory specimen by MARICEL with probe detection (test code = 70283-2) Whether patient is employed in a healthcare setting (test code = 32628-8) Whether the patient has symptoms related to condition of interest (test code = 57876-9) Patient was hospitalized because of this condition (test code = 55888-7) Whether the patient was admitted to intensive care unit (ICU) for condition of interest (test code = 10236-8) Whether patient resides in a congregate care setting (test code = 41668-3) [facility] PARACENTESIS/PERITONECENTESIS WITH [id number] 15:25:50EXAMINATION: IMAGE GUIDED PARACENTESIS. HISTORY/INDICATION: Therapeutic,Large Volume ?Please performlarge volumeparacentesis every 4 weeks for ascites SEDATION: The patient did not require conscious sedation for the procedure. TECHNIQUE: The risks (including infection and increased risk of bleedingdue to abnormal prothrombin time and platelets), benefits and alternativeswere discussed and informed consent was obtained. Prior to beginning the procedure, Vale "timeout" Protocol wasperformed to confirm the identity [...] DISCHARGED TO: Outpatient surgery for intravenous albumin therapy.[facility], Radiant Results Inft User - 05/02/2021 10:27 [...] was obtained. Prior to beginning the procedure, Vale "timeout" Protocol wasp erformed to confirm the [...] Minimal.CONDITION: Stable.DISCHARGED TO: Outpatient surgery for intravenous albumintherapy.[facility] PARACENTESIS/PERITONECENTESIS WITH [id number] 15:57:18EXAMINATION: IMAGE GUIDED PARACENTESIS. HISTORY/INDICATION: Other ascites [...] was obtained. Prior to beginning the procedure, Vale "timeout" Protocol wasperformed to confirm the identity [...] TO: Outpatient surgery for intravenous albumin therapy. [facility], Dulce MariaantResults Inft User - 03/28/2021 10:58 AM CDTEXAMINATION: [...] was obtained. Prior to beginning the procedure, Vale "timeout" Protocol wasperformed to confirm the identity [...] Stable.DISCHARGED TO: Outpatient surgery for intravenous albumin therapy.[facility] FLUID,[id number] 17:47:00 Test Item Value Reference Range Interpretation Comments FLUID,PARACENTESIS (test code = FLPARACENT) RUN DATE: 02/19/21 [facility] PAGE 1 RUN TIME: 1747 Specimen Inquiry RUN USER: INTERFACE PATIENT: RENA SINCLAIR LOC: JERMAINE U #: [id number] AGE/SX: 70/F ROOM: [facility] RE02/15/21REG DR: Briana Walden MD : 50 BED: A DIS: 02/18/21 STATUS: DIS IN TLOC: SPEC #: [id number] RECD: 02/18/21 STATUS: SOUCorazon REQ #: [id number] HARIS: 02/18/2145 [facility] DR: Briana Walden MD ENTERED: 02/18/21 SP TYPE: FLUID,PARC OTHR DR: DOES_NOT KNOW Self Referred Laisha Alexis MDORDERED: CB, SUREPATH CODES: XU0273 - ABDOMEN, NOS RB0514 C68841 - ABDOMEN, NOS NO EVIDENCE OF [id number] [id number] - ABDOMEN, NOS CENTESIS, NOS COPIES TO: DOES_NOT KNOW [place] [address] [place], [place] [phone] Laisha Alexis MD [address] [facility], [address] [phone] PROCEDURES: CB (02/18/21) SUREPATH (02/18/21) TISSUES: A. ABDOMEN, NOS - PARACENTESIS CPT CODES CPT CODE(S): 00708 , 92791 , , , , , FINAL DIAGNOSIS ASCITIC FLUID, PARACENTESIS WITH CELL BLOCK: - NEGATIVE FOR MALIGNANCY GROSS DESCRIPTION Paracentesis. Received are 1200 mL of cloudy, yellow fluid. One thin-layer slide is prepared for Pap stain. One cell block is prepared. /lien CONTINUED ON NEXT PAGE RUN DATE: 02/19/21 [facility] PAGE 2 RUN TIME: 1748 Specimen Inquiry RUN USER: INTERFACE SPEC #: [id number] PATIENT: RENA SINCLAIR JESSICA #[id number] (Continued) MICROSCOPIC DESCRIPTION Paracentesis. - Signed SIGNATURE ON FILE Silver Riley 02/19/21 1747 END OF REPORT - PARACENTESIS W [id number] 11:12:00 [facility] : 1950 Sex: F Patient Name: RENA SINCLAIR Unit No: [id number] EXAMS: CPT CODE: [id number] PARACENTESIS W IMAGE 43814 EXAMINATION: IMAGE-GUIDED PARACENTESIS. LOCATION: B2. HISTORY: Ascites SEDATION: The patient didnot require conscious sedation for the procedure. ANTIBIOTICS: None. Not indicated. CONTRAST: None. TECHNIQUE: The risks, benefits, and alternatives were discussed and informed consent was obtained. Prior to beginning the procedure, Vale Protocol was used to confirm the patient's [...] one- step needle was advanced into the asciticfluid. Approximately 10,100 mL of clear yellow fluid was drained. 75 g of 25% albumin was given. At the conclusion of the procedure, the catheter was removed and a sterile dressing applied to the site.ESTIMATED BLOOD LOSS: Less than 30 milliliters. COMPLICATIONS: None. DISCHARGED TO: Inpatient unit. FINDINGS: Ultrasound demonstrated a large amount of ascitic fluid. IMPRESSION: Successful image-guided paracentesis. spike machine operator: Trudi Dhillon PA-C I have personally reviewed these images and agree with the physician therapeutic recreation assistant's interpretation. at 1112 Reported and signed by: Laisha Alexis MD [facility] NAME: RENA SINCLAIR JESSICA [id number] [address] PHYS: [place] [address] : 1950 AGE: 70 SEX: F LOC: Z.620 A PHONE #: [phone] EXAM DATE: 02/18/2021 STATUS: ADM IN FAX #: [phone] RADIOLOGY NO: PAGE 1 Signed Report (CONTINUED) Patient Name: RENA SINCLAIR Unit No: [id number] EXAMS: CPT CODE: [id number] PARACENTESIS W IMAGE 09388 (Continued) CC:Mason Ward MD Technologist: Jewels Velazquez Transcrpt Date/Tm/Trnsp: 02/18/2021 (1112) [email or web address] Orig Print D/T: S: 02/18/2021 (1115) [place] NAME: RENA SINCLAIR [id number] [address] PHYS: [place] [address] : 1950 AGE: 70 SEX: F LOC:Bonnie Amos PHONE #: [phone] EXAM DATE: 02/18/2021 STATUS: ADM IN FAX #: [phone] RADIOLOGY NO:PAGE 2 Signed ReportGLUCOSE BEDSIDE [id number] 10:44:00 Test Item Value Reference Range Interpretation Comments GLUCOSE BEDSIDE TESTING (test code 259 MG/DL 60-99 H = GLUBED) COVID 19 Asymptomatic IH [id number] 09:16:00 Test Item Value Reference Range Interpretation [...] virus (antigen) in the sample." GLUCOSE BEDSIDE [id number] 07:41:00 Test Item Value Reference Range Interpretation Comments GLUCOSE BEDSIDE TESTING (test code 157 MG/DL 60-99 H = GLUBED) BASIC METABOLIC [id number] 05:35:00 Test Item Value Reference Range Interpretation [...] UNITS/L 120-246 N code = LDH) PROTHROMBIN [id number] 05:26:00 Test Item Value Reference Range Interpretation [...] de ep venous thrombos is, hip surgery, tr eatment for deep venous thrombosis or pulmonary preve ntion of systemic emb olism in patients wit h valvular heart disease, atrial fibrillation, t issue heart valve, or acute myocardial infa rction. 2.0 - 3.0 3. Mechanical pros thesis heart valves, recurrent syste eloise embolism. 3.0 - 4.5 HGB [id number] 05:17:00 Test Item Value Reference Range Interpretation Comments HEMOGLOBIN (test code = HGB) 7.1 G/DL 11.2-14.9 L HEMATOCRIT (test code = HCT) 24.2 % 33.2-43.5 L GLUCOSE BEDSIDE [id number] 21:29:00 Test Item Value Reference Range Interpretation Comments GLUCOSE BEDSIDE TESTING (test code 157 MG/DL 60-99 H = GLUBED) GLUCOSE BEDSIDE [id number] 16:33:00 Test Item Value Reference Range Interpretation Comments GLUCOSE BEDSIDE TESTING (test code 165 MG/DL 60-99 H = GLUBED) GLUCOSE BEDSIDE [id number] 11:19:00 Test Item Value Reference Range Interpretation Comments GLUCOSE BEDSIDE TESTING (test code 173 MG/DL 60-99 H = GLUBED) GLUCOSE BEDSIDE [id number] 07:38:00 Test Item Value Reference Range Interpretation Comments GLUCOSE BEDSIDE TESTING (test code 128 MG/DL 60-99 H = GLUBED) BASIC METABOLIC [id number] 06:59:00 Test Item Value Reference Range Interpretation [...] UNITS/L 120-246 N code = LDH) HGB [id number] 06:32:00 Test Item Value Reference Range Interpretation Comments HEMOGLOBIN (test code = HGB) 7.3 G/DL 11.2-14.9 L HEMATOCRIT (test code = HCT) 24.4 % 33.2-43.5 L GLUCOSE BEDSIDE [id number] 20:53:00 Test Item Value Reference Range Interpretation Comments GLUCOSE BEDSIDE TESTING (test code 201 MG/DL 60-99 H = GLUBED) BASIC METABOLIC [id number] 07:14:00 Test Item Value Reference Range Interpretation [...] 120-246 N code = LDH) THYROID STIMULATING [id number] 07:14:00 Test Item Value Reference Range Interpretation Comments THYROID STIMULATING 2.620 MIU/L 0.465-4.68 N Please b e aware that HORMONE (test code = bias re sults for TSH TSH) may occur forpa tient who are taking Biotin suppleme nts. T4 [id number] 07:13:00 Test Item Value Reference Range Interpretation Comments T4 FREE (test code = T4F) 1.4 NG/DL 0.78-2.19 N HGB [id number] 06:47:00 Test Item Value Reference Range Interpretation Comments HEMOGLOBIN (test code = HGB) 7.2 G/DL 11.2-14.9 L HEMATOCRIT (test code = HCT) 23.8 % 33.2-43.5 L BASIC METABOLIC [id number] 06:44:00 Test Item Value Reference Range Interpretation [...] 120-246 N code = LDH) THYROID STIMULATING [id number] 06:44:00 Test Item Value Reference Range Interpretation Comments THYROID STIMULATING HORMONE (test code MIU/L 0.465-4.68 = TSH) GLUCOSE BEDSIDE [id number] 06:28:00 Test Item Value Reference Range Interpretation Comments GLUCOSE BEDSIDE TESTING (test code 174 MG/DL 60-99 H = GLUBED) VITAMIN [id number] 22:26:00 Test Item Value Reference Range Interpretation Comments VITAMIN B12 (test code = VITB12) 987 pg/mL 239-931 H [id number] 22:26:00 Test Item Value Reference Range Interpretation Comments FERRITIN (test code = VAUGHN) 12.3 NG/ML 11.1-264 N VITAMIN [id number] 22:11:00 Test Item Value Reference Range Interpretation Comments VITAMIN B12 (test code = VITB12) pg/mL 239-931 [id number] 22:11:00 Test Item Value Reference Range Interpretation Comments FERRITIN (test code = VAUGHN) 12.3 NG/ML 11.1-264 N FE W/TOTAL IRON BINDING CAP.2021-02-15 21:44:00 Test Item Value Reference Range Interpretation Comments SERUM IRON (test code = IRON) 35 MCG/DL 37-170 L TOTAL IRON BINDING CAPACITY (test 400 MCG/DL 265-497 N code = TIBC) IRON SATURATION (test code = 9 % 12-57 L FESAT) [id number] 21:35:00 Test Item Value Reference Range Interpretation Comments AMMONIA (test code = AMM) < 9 mcMOL/L 9-30 L FE W/TOTAL IRON BINDING CAP.2021-02-15 21:34:00 Test Item Value Reference Range Interpretation Comments SERUM IRON (test code = IRON) 35 MCG/DL 37-170 L TOTAL IRON BINDING CAPACITY (test MCG/DL 265-497 code = TIBC) IRON SATURATION (test code = FESAT) % 12-57 GLUCOSE BEDSIDE [id number] 20:37:00 Test Item Value Reference Range Interpretation Comments GLUCOSE BEDSIDE TESTING (test code 142 MG/DL 60-99 H = GLUBED) COMPREHENSIVE METABOLIC [id number] 12:57:00 Test Item Value Reference Range Interpretation [...] N PHOSPHATASE (test code = ALKP) PROTHROMBIN [id number] 12:53:00 Test Item Value Reference Range Interpretation [...] eloise embolism. 3.0 - 4.5 CBC W/AUTO [id number] 12:40:00 Test Item Value Reference Range Interpretation [...] K/mm3 0.0-0.1 N NRBC#) IR PARACENTESIS/PERITONECENTESIS WITH [id number] 16:49:16EXAMINATION: IMAGE GUIDED PARACENTESIS. HISTORY/INDICATION: please perform large volume paracentesisevery 4 weeksfor ascites please perform large volume paracentesis every 4 weeks forascites SEDATION:The patient did not require conscious sedation for the procedure. TECHNIQUE: The risks (including infection and increased risk of bleedingdue to abnormal prothrombin time and platelets), benefits and al ternativeswere discussed and informed consent was obtained. Prior to beginning the procedure, Vale "timeout" Protocol wasperformed to confirm the identity [...] TO: Outpatient surgery for intravenous albumin therapy. [facility], [place] Results Inft User - 01/29/2021 11:50 [...] was obtained. Prior to beginning the procedure, Vale "timeout" Protocol wasperformed to confirm the identity [...] Stable.DISCHARGED TO: [facility]patient [facility] albumin therapy[facility]PERITONECENTESIS WITH [id number] 19:45:02EXAMINATION: IMAGE GUIDED PARACENTESIS. HISTORY/INDICATION: Other ascites Please perform large volume paracentesisevery 4 weeks for ascites SEDATION: The patient did not require conscious sedation for the procedure. TECHNIQUE: The risks (including infection and increased risk of bleedingdue to abnormal prothrombin time and platelets), benefits and alternativeswere discussed and informed consent was ob tained. Prior to beginning the procedure, Vale "timeout" Protocol wasperformed to confirm the identity [...] TO: Outpatient surgery for IV albumin therapy. [facility], [place] Results Inft User - 01/03/2021 1:46 PM CSTEXAMINATION: IMAGE GUIDED PARACENTESIS. HISTORY/INDICATION: Other ascites Please perform large volume paracentesisevery 4 weeks for ascitesSEDATION: The patient did notrequire conscious sedation for the procedure.TECHNIQUE: The risks (including infection and increasedrisk of bleedingdue to abnormal prothrombin time and platelets), benefits and alternativeswere discussed and informed consent was obtained. Prior to beginning the procedure, Vale "timeout" Protocol wasperformed to confirm the identity [...] Stable.DISCHARGED TO: Outpatient surgery for IV albumin therapy.[facility] PARACENTESIS/PERITONECENTESIS WITH [id number] 20:22:56Successful US- guided paracentesis.PROCEDURE: US-guided paracentesis HISTORY: [...] discussingthe risks and benefits of the procedure. Vale protocol timeout wasperformed verifying correct patient, correct site, and correct procedure.Images were archived to PACS. The patient was prepped and draped in sterilefashion. US-guided drainage of theascites was performed with a 5 Frenchsheathed needle, after infiltrating local anesthesia at the puncture site.A total of 7000cc clear yellowish fluid was drained. 50 g IV albumin was given during the procedure. COMPLICATIONS: None. ? Estimated Blood Loss : <1 cc [facility], Radiant Results Inft User - 2:24 PM CSTPROCEDURE: US-guided paracentesisHISTORY: Ascites, paracentesis is requested.MEDICATIONS: Local lidocaine. I reviewed the patient?s current medicationlist as noted in the nursing assessment, and the following actions weretaken: None []. ATTENDING PRESENCE: As the attending radiologist, I was present in theroom during the entire procedure.TECHNIQUE: Informed consent was obtained from the patient after discussingthe risks and benefits of the procedure. Vale protocol timeout wasperformed verifying correct patient, correct [...] Estimated Blood Loss : <1 ccIMPRESSIONSuccessful US-guided paracentesis.[facility] PARACENTESIS/PERITONECENTESIS WITH [id number] 21:20:52 Successful US-guided paracentesis.PROCEDURE: US-guided paracentesis HISTORY: [...] discussingthe risks and benefits of the procedure. Vale protocol timeout wasperformed verifying correct patient, correct [...] discussingthe risks and benefits of the procedure. Vale protocol timeout wasperformed verifying correct patient, correct [...] Estimated Blood Loss : <1 ccIMPRESSIONSuccessful US-guided paracentesis.[facility] (IGG AND IGM)2020-10-03 00:09:00 Test Item Value Reference Range Interpretation Comments HAV Total (test code = 7831763563) Negative HAVT Semi-Quantitative (test code = 4516146023) [facility] SURFACE [id number] 00:09:00 Test Item Value Reference Range Interpretation Comments HBsAB (test code = Negative 0801653910) HBsAb mIU/mL Semi-Quantitative (test code = 1382946315) MARY (test code = Interpretation: MARY) ?Hepatitis B Surface Antibody ? Negative - Patient is considered to be not immune to infection with HBV. ? ? Positive - Anti-HBs detected at greater than or equal to 12 mIU/mL. ?Patient is considered to be immune to infection with HBV. ? [facility] (IGM & IGG)2020-10-03 00:09:00 Test Item Value Reference Range Interpretation Comments HBC (test code = 3502206856) Negative HBC Semi-Quantitative (test code = 7949034250) [facility]CV [id number] 00:09:00 Test Item Value Reference Range Interpretation Comments HCV Ab (test code = 16883-3) Negative HCV Semi-Quantitative (test code = 35402-6) [facility] HospitalALPHA [id number] 23:55:00 Test Item Value Reference Range Interpretation Comments AFP (test code = 3.2 ng/mL See_Comment [Automated 0922665322) message] The system which generated this result transmitted reference range : <=7.5. The reference range was not used to interpret this result as normal/abnormal . MARY (test code = MARY) Biotin has been reported to cause a negative bias, interpret results relative to patient's use of biotin. Lab Interpretation Normal (test code = 61004-2) [facility]ERT[facility]FACE [id number] 23:52:00 Test Item Value Reference Range Interpretation Comments HBsAg Semi-Quantitative (test code = Negative Negative 5195-3) [facility] WITH [id number] 19:15:00 Test Item Value Reference Range Interpretation Comments WBC (test code = See_Comment L [Automated 0250-2) message] The sy stem which generated this [...] RDW-SD (test code = 45.3 fL 39-49.9 74537-0) RDW-CV (test code = 15.7 % 12-15.5 H 788-0) PLT (test code = See_Comment L [Automated 777-3) message] The sy stem which generated this result transmitted reference range : 166 - 358 10*3/ ?L. The reference r glenn was not used to interpret this result as normal/abnormal . MPV (test code = 12.2 fL 9.5-12.9 53142-8) IPF % (test code = 4.5 % 1.3-7.7 Platelet count 8686691881) measured by fluorescence method. NRBC/100 WBC (test See_Comment [Automat ed code = 5445129657) message] The system which generated this result transmitted reference range : 0.0 - 10.0 /100 WBCs. The refer ence range was not u sed to interpret th is result as normal/abnormal . NRBC x10^3 (test code <0.01 See_Comment [Auto mated = 5900115906) message] The s ystem which generated this result transmitted reference range : 10*3/?L. The reference range was not used to interpret this result as normal/abnormal . GRAN MAT (NEUT) % 64.4 % (test code = 770-8) IMM GRAN % (test code 0.30 % = 2952212976) LYMPH % (test code = 19.7 % 736-9) MONO % (test code = 11.5 % 5905-5) EOS % (test code = 3.5 % 713-8) BASO % (test code = 0.6 % 706-2) GRAN MAT x10^3(ANC) 2.02 10*3/uL 1.88-7.09 (test code = 5414054278) IMM GRAN x10^3 (test <0.03 0-0.06 code = 9948808882) LYMPH x10^3 (test code 0.62 10*3/uL 1.32-3.29 L = 731-0) MONO x10^3 (test code 0.36 10*3/uL 0.33-0.92 = 742-7) EOS x10^3 (test code = 0.11 10*3/uL 0.03-0.39 711-2) BASO x10^3 (test code <0.03 0.01-0.07 = 704-7) Lab Interpretation Abnormal (test code = 49650-3) [facility] WITH [id number] 19:15:00 Test Item Value Reference Range Interpretation [...] RDW-SD (test code = 45.3 fL 39-49.9 56904-0) RDW-CV (test code = 15.7 % 12-15.5 H 788-0) PLT (test code = See_Comment L [Automated 777-3) message] The sy stem which generated this result transmitted reference range : 166 - 358 10*3/ ?L. The reference r glenn was not used to interpret this result as normal/abnormal . MPV (test code = 12.2 fL 9.5-12.9 91022-1) IPF % (test code = 4.5 % 1.3-7.7 Platelet count 1423896054) measured by fluorescence method. NRBC/100 WBC (test See_Comment [Automat ed code = 6581333839) message] The system which generated this result transmitted reference range : 0.0 - 10.0 /100 WBCs. The refer ence range was not u sed to interpret th is result as normal/abnormal . NRBC x10^3 (test code <0.01 See_Comment [Auto mated = 3434798941) message] The s ystem which generated this result transmitted reference range : 10*3/?L. The reference range was not used to interpret this result as normal/abnormal . GRAN MAT (NEUT) % 64.4 % (test code = 770-8) IMM GRAN % (test code 0.30 % = 2061921073) LYMPH % (test code = 19.7 % 736-9) MONO % (test code = 11.5 % 5905-5) EOS % (test code = 3.5 % 713-8) BASO % (test code = 0.6 % 706-2) GRAN MAT x10^3(ANC) 2.02 10*3/uL 1.88-7.09 (test code = 5884025418) IMM GRAN x10^3 (test <0.03 0-0.06 code = 9992755708) LYMPH x10^3 (test code 0.62 10*3/uL 1.32-3.29 L = 731-0) MONO x10^3 (test code 0.36 10*3/uL 0.33-0.92 = 742-7) EOS x10^3 (test code = 0.11 10*3/uL 0.03-0.39 711-2) BASO x10^3 (test code <0.03 0.01-0.07 = 704-7) Lab Interpretation Abnormal (test code = 99344-6) [facility] HospitalPROTHROMBIN TIME / [id number] 19:10:00 Test Item Value Reference Range Interpretation Comments PROTIME PATIENT (test See_Comment H [Auto mated message] code = 5964-2) The system [employer] generated this result transmitted ref erence range: 12.0 - 1 4.7 Seconds. The reference range was not used to int erpret this result as normal/abnormal . INR (test code = 6301-6) Nor mal INR <1.1; Warfarin Therap eutic range 2.0 to 3. 0 or 2.5 to 3.5, dep ending upon the indica tions. Lab Interpretation (test Abnormal code = 27696-5) [facility] HospitalPROTHROMBIN TIME / [id number] 19:10:00 Test Item Value Reference Range Interpretation Comments PROTIME PATIENT (test See_Comment H [Auto mated message] code = 5964-2) The system [employer] generated this result transmitted ref erence range: 12.0 - 1 4.7 Seconds. The reference range was not used to int erpret this result as normal/abnormal . INR (test code = 6301-6) Nor mal INR <1.1; Warfarin Therap eutic range 2.0 to 3. 0 or 2.5 to 3.5, dep ending upon the indica tions. Lab Interpretation (test Abnormal code = 52352-5) [facility] HospitalFERRITIN [id number] 18:12:00 Test Item Value Reference Range Interpretation Comments FERRITIN (test code = 20.5 ng/mL 3956570478) MARY (test code = MARY) Biotin has been reported to cause a negative bias, interpret results relative to patient's use of biotin. Lab Interpretation (test Normal code = 22741-4) [facility] HospitalFERRITIN [id number] 18:12:00 Test Item Value Reference Range Interpretation Comments FERRITIN (test code = 20.5 ng/mL 264 5664394242) MARY (test code = MARY) Biotin has been reported to cause a negative bias, interpret results relative to patient's use of biotin. Lab Interpretation (test Normal code = 82467-1) [facility] HospitalTOTAL IRON BINDING [id number] 17:49:00 Test Item Value Reference Range Interpretation Comments TIBC (test code = 0988546760) 401 ug/dL 250-410 % FE SAT (test code = 6017244144) 12 % 20-50 L Lab Interpretation (test code = Abnormal 72550-1) [facility] HospitalTOTAL IRON BINDING [id number] 17:49:00 Test Item Value Reference Range Interpretation Comments TIBC (test code = 1360934930) 401 ug/dL 250-410 % FE SAT (test code = 4798141858) 12 % 20-50 L Lab Interpretation (test code = Abnormal 42775-1) [facility] HospitalHEPATIC FUNCTION PANEL (25158) (ALB,T.PRO,BILI T,BU/BC,ALT,AST,ALK PHOS)2020-10-02 17:39:00 Test Item Value Reference Range Interpretation Comments TOTAL BILI (test code = 5407498390) 1.3 mg/dL 0.1-1.1 H BILI UNCON (test code = 8738473515) 1.0 mg/dL 0.1-1.1 BILI CONJ (test code = 3643829971) 0.0 mg/dL 0-0.3 T PROTEIN (test code = 9832758237) 6.8 g/dL 6.3-8.2 ALBUMIN (test code = 5301792548) 3.0 g/dL 3.5-5 L ALK PHOS (test code = 9574719868) 95 U/L 34-122 ALTv (test code = 1742-6) 18 U/L 5-35 AST(SGOT) (test code = 4270886132) 53 U/L 13-40 H Lab Interpretation (test code = Abnormal 95754-1) [facility] HospitalIRON2020-11-17 17:39:00 Test Item Value Reference Range Interpretation Comments IRON (test code = 7140223612) 49 ug/dL 50-160 L Lab Interpretation (test code = Abnormal 25371-8) [facility] HospitalHEPATIC FUNCTION PANEL (06576) (ALB,T.PRO,BILI T,BU/BC,ALT,AST,ALK PHOS)2020-10-02 17:39:00 Test Item Value Reference Range Interpretation Comments TOTAL BILI (test code = 6739298670) 1.3 mg/dL 0.1-1.1 H BILI UNCON (test code = 0584623246) 1.0 mg/dL 0.1-1.1 BILI CONJ (test code = 8640401634) 0.0 mg/dL 0-0.3 T PROTEIN (test code = 4107471055) 6.8 g/dL 6.3-8.2 ALBUMIN (test code = 7401636244) 3.0 g/dL 3.5-5 L ALK PHOS (test code = 2606050579) 95 U/L 34-122 ALTv (test code = 1742-6) 18 U/L 5-35 AST(SGOT) (test code = 0732852524) 53 U/L 13-40 H Lab Interpretation (test code = Abnormal 24968-4) [facility] HospitalIRON2020-11-17 17:39:00 Test Item Value Reference Range Interpretation Comments IRON (test code = 4186734257) 49 ug/dL 50-160 L Lab Interpretation (test code = Abnormal 22765-0) [facility] HospitalCT HEAD WO [id number] 14:12:08 No acute intracranial abnormality. Preliminary Report [...] reviewed this study and agree with the abovereport.[facility] [id number] 14:11:00 Test Item Value Reference Range Interpretation Comments TROPONIN I (test <0.012 See_Comment [Automated code = 0627698487) message] The system which generated this result [...] ? Lab Interpretation Normal (test code = 56018-1) [facility] HospitalACETAMINOPHEN2020-04-11 13:30:00 Test Item Value Reference Range Interpretation Comments ACETAMINOP (test code = <10.0 10-30 L 8264885036) MARY (test code = MARY) Toxic: Greater than 200 ug/mL @ 4 hour post ingestion or greater than 50 ug/mL @ 12 hour post ingestion Lab Interpretation (test Abnormal code = 14481-4) [facility] HospitalSALICYLATE2020-04-11 13:13:00 Test Item Value Reference Range Interpretation Comments SALICYLATE (test code 10 mg/L = 0389282353) MARY (test code = MARY) Therapeutic Range: ? Analgesic and Antipyretic Use ? 20-100 mg/L ? ? Anti-Inflammatory Use ? 100-250 mg/L Toxic Range: ? Greater than 300 mg/L [facility] HospitalaPTT2020-04-11 13:12:00 Test Item Value Reference Range Interpretation Comments APTT Patient (test See_Comment [Automat ed code = 3173-2) message] The system which generated this result transmitted reference range : 23 - 38 Seconds . The reference range was not used to interpr et this result as normal/abnormal . MARY (test code = MARY) The [facility] patient population mean normal value for aPTT is 30 seconds. Lab Interpretation Normal (test code = 80162-9) [facility] HospitalPROTHROMBIN TIME / [id number] 13:10:00 Test Item Value Reference Range Interpretation [...] tions. Lab Interpretation (test Abnormal code = 03540-7) [facility] / [facility] - DRUG SCREEN [id number] 13:08:00 Test Item Value Reference Range Interpretation Comments BENZO U (test code = Negative Negative 1854671064) FATEMEH U (test code = Negative Negative 0464724039) AMPHET (test code = Negative Negative 0821341225) THC (test code = Negative Negative 7359420951) METHADONE (test code = Negative Negative 3722743209) Meth U (test code = Negative Negative 4205656855) OPIATES (test code = Negative Negative 9155530329) Cocaine Metabolite (test Negative Negative code = 5241324486) PROPOXY (test code = Negative Negative 6725485431) Tric U (test code = Negative Negative 5968662056) PCP (test code = Negative Negative 6599975432) OXYCOD (test code = Negative Negative 1252700717) MARY (test code = MARY) Urine Drug [...] testing). Lab Interpretation (test Normal code = 85816-1) [facility] HospitalUrinalysis2020-04-11 13:07:00 Test Item Value Reference Range Interpretation Comments APPEARANCE (test code = Clear Clear 5685685627) COLOR (test code = Yellow Yellow 7287051665) PH (test code = 4.8-8.0 6612138594) SP GRAVITY (test code = 1.003-1.030 7191438522) GLU U QUAL (test code = 150 mg/dL Normal A 0616343191) BLOOD (test code = Negative Negative 7593878636) KETONES (test code = Negative Negative 0446985481) PROTEIN (test code = Negative Negative 2887-8) UROBILIN (test code = 2.0 mg/dL Normal A 4535607679) BILIRUBIN (test code = Negative Negative 8479359204) NITRITE (test code = Negative Negative 7047743953) LEUK SABA (test code = Negative Negative 2402716127) RBC/HPF (test code = See_Comment [Autom ated message] 6047642251) The system [employer] generated this result transmit carlitos reference range : 0 - 3 HPF. The refe rence range was not u sed to interpret th is result as normal/abnormal . WBC/HPF (test code = See_Comment [Autom ated message] 3041552158) The system [employer] generated this result transmit carlitos reference range : 0 - 5 HPF. The refe rence range was not u sed to interpret th is result as normal/abnormal . BACTERIA (test code = Moderate Negative A 0642438326) MUCOUS (test code = Moderate Negative LPF A 6938572225) SQ EPITH (test code = <1 HPF 7206404037) HYAL CAST (test code = See_Comment [Aut omated message] 1449696368) The system [employer] generated this result transmit carlitos reference range : <=2 LPF. The refere nce range was not u sed to interpret th is result as normal/abnormal . Lab Interpretation (test Abnormal code = 40214-6) [facility] HospitalAMMONIA, [id number] 12:48:00 Test Item Value Reference Range Interpretation Comments AMMONIA (test code = 2165453472) 13 umol/L 9-33 Lab Interpretation (test code = Normal 84829-6) [facility] WITH [id number] 12:37:00 Test Item Value Reference Range Interpretation [...] RDW-SD (test code = 42.4 fL 39-49.9 97968-2) RDW-CV (test code = 13.0 % 12-15.5 788-0) PLT (test code = See_Comment L [Automated 777-3) message] The sy stem which generated this result transmitted reference range : 166 - 358 10*3/ ?L. The reference r glenn was not used to interpret this result as normal/abnormal . MPV (test code = 11.8 fL 9.5-12.9 49367-7) IPF % (test code = 4.6 % 1.3-7.7 Platelet count 5031695317) measured by fluorescence method. NRBC/100 WBC (test See_Comment [Automat ed code = 9457291891) message] The system which generated this result transmitted reference range : 0.0 - 10.0 /100 WBCs. The refer ence range was not u sed to interpret th is result as normal/abnormal . NRBC x10^3 (test code <0.01 See_Comment [Auto mated = 6057203494) message] The s ystem which generated this result transmitted reference range : 10*3/?L. The reference range was not used to interpret this result as normal/abnormal . GRAN MAT (NEUT) % 80.2 % (test code = 770-8) IMM GRAN % (test code 0.20 % = 3702414016) LYMPH % (test code = 12.0 % 736-9) MONO % (test code = 6.2 % 5905-5) EOS % (test code = 1.2 % 713-8) BASO % (test code = 0.2 % 706-2) GRAN MAT x10^3(ANC) 4.55 10*3/uL 1.88-7.09 (test code = 7127872580) IMM GRAN x10^3 (test <0.03 0-0.06 code = 2345091896) LYMPH x10^3 (test code 0.68 10*3/uL 1.32-3.29 L = 731-0) MONO x10^3 (test code 0.35 10*3/uL 0.33-0.92 = 742-7) EOS x10^3 (test code = 0.07 10*3/uL 0.03-0.39 711-2) BASO x10^3 (test code <0.03 0.01-0.07 = 704-7) PLT ESTIMATE (test Decreased Normal A code = 9317-9) Lab Interpretation Abnormal (test code = 36700-3) [facility] Metabolic Panel (NA, K, CL, CO2, GLUCOSE, BUN, CREATININE, [place])2020-02-25 12:11:00 Test Item Value Reference Range Interpretation Comments NA (test code = 139 mmol/L 135-145 8847444765) K (test code = 4.8 mmol/L 3.5-5 2755973104) CL (test code = 104 mmol/L 98-108 3835441753) CO2 TOTAL (test code = 26 mmol/L 23-31 8231929655) AGAP (test code = 2-16 5830605964) BUN (test code = 24 mg/dL 7-23 H 5397311924) GLUCOSE (test code = 266 mg/dL 70-110 H 7070837104) CREATININE (test code = 0.85 mg/dL 0.5-1.04 4391557799) CALCIUM (test code = 9.9 mg/dL 8.6-10.6 1479383762) eGFR Calculation mL/min/1.73m2 (Non-) (test code = 9805146627) eGFR Calculation mL/min/1.73m2 () (test code = 3528667090) MARY (test code = MARY) Association of [...] tests). Lab Interpretation Abnormal (test code = 70328-7) [facility] (ALB, T.PRO, BILI T, BU/BC, ALT, AST, ALK PHOS)2020-02-25 12:11:00 Test Item Value Reference Range Interpretation Comments TOTAL BILI (test code = 0328083512) 1.3 mg/dL 0.1-1.1 H BILI UNCON (test code = 8463240944) 1.2 mg/dL 0.1-1.1 H BILI CONJ (test code = 7739768365) 0.0 mg/dL 0-0.3 T PROTEIN (test code = 0522539097) 8.1 g/dL 6.3-8.2 ALBUMIN (test code = 0158312383) 3.9 g/dL 3.5-5 ALK PHOS (test code = 3779640323) 119 U/L 34-122 ALTv (test code = 1742-6) 27 U/L 5-35 AST(SGOT) (test code = 5179972730) 45 U/L 13-40 H Lab Interpretation (test code = Abnormal 10413-9) [facility] HospitalLipase [id number] 12:11:00 Test Item Value Reference Range Interpretation Comments LIPASE (test code = 1135846647) 68 U/L 0-220 Lab Interpretation (test code = Normal 84990-7) [facility] (NA, K, CL, CO2, GLUCOSE, BUN, CREATININE, [place])2020-02-22 11:41:00 Test Item Value Reference Range Interpretation Comments NA (test code = 140 mmol/L 135-145 1505769236) K (test code = 3.5 mmol/L 3.5-5 4944758095) CL (test code = 101 mmol/L 98-108 5337022024) CO2 TOTAL (test code = 28 mmol/L 23-31 4083774599) AGAP (test code = 2-16 2941247697) BUN (test code = 24 mg/dL 7-23 H 9091018143) GLUCOSE (test code = 144 mg/dL 70-110 H 1853471154) CREATININE (test code = 0.97 mg/dL 0.5-1.04 8121065706) CALCIUM (test code = 9.5 mg/dL 8.6-10.6 7200390167) eGFR Calculation mL/min/1.73m2 (Non-) (test code = 4476533632) eGFR Calculation mL/min/1.73m2 () (test code = 7970956338) MARY (test code = MARY) Association of [...] tests). Lab Interpretation Abnormal (test code = 29245-1) [facility]2020-04-08 10:44:00 Test Item Value Reference Range Interpretation Comments AMMONIA (test code = 2043490229) 22 umol/L 9-33 Lab Interpretation (test code = Normal 91107-1) [facility] GLUCOSE (AUTOMATED)2020-02-22 01:15:00 Test Item Value Reference Range Interpretation Comments POCT GLU (test code = 1937599476) 178 mg/dL 70-110 H Lab Interpretation (test code = Abnormal 63614-9) [facility] GLUCOSE (AUTOMATED)2020-02-21 16:39:00 Test Item Value Reference Range Interpretation Comments POCT GLU (test code = 4651292768) 223 mg/dL 70-110 H Lab Interpretation (test code = Abnormal 04982-2) [facility]2020-04-07 15:10:00 Test Item Value Reference Range Interpretation Comments AMMONIA (test code = 6819118690) 30 umol/L 9-33 Lab Interpretation (test code = Normal 67944-8) [facility] GLUCOSE (AUTOMATED)2020-02-21 12:44:00 Test Item Value Reference Range Interpretation Comments POCT GLU (test code = 5817180646) 191 mg/dL 70-110 H Lab Interpretation (test code = Abnormal 28061-3) [facility] WITH [id number] 11:50:00 Test Item Value Reference Range Interpretation [...] RDW-SD (test code = 41.1 fL 39-49.9 21955-1) RDW-CV (test code = 13.1 % 12-15.5 788-0) PLT (test code = See_Comment L [Automated 777-3) message] The sy stem which generated this result transmitted reference range : 166 - 358 10*3/ ?L. The reference r glenn was not used to interpret this result as normal/abnormal . MPV (test code = 12.6 fL 9.5-12.9 83425-3) IPF % (test code = 5.2 % 1.3-7.7 Platelet count 1063134646) measured by fluorescence method. NRBC/100 WBC (test See_Comment [Automat ed code = 0583412268) message] The system which generated this result transmitted reference range : 0.0 - 10.0 /100 WBCs. The refer ence range was not u sed to interpret th is result as normal/abnormal . NRBC x10^3 (test code <0.01 See_Comment [Auto mated = 0934949349) message] The s ystem which generated this result transmitted reference range : 10*3/?L. The reference range was not used to interpret this result as normal/abnormal . GRAN MAT (NEUT) % 59.3 % (test code = 770-8) IMM GRAN % (test code 0.30 % = 2691911917) LYMPH % (test code = 22.5 % 736-9) MONO % (test code = 13.7 % 5905-5) EOS % (test code = 3.9 % 713-8) BASO % (test code = 0.3 % 706-2) GRAN MAT x10^3(ANC) 2.29 10*3/uL 1.88-7.09 (test code = 1113722031) IMM GRAN x10^3 (test <0.03 0-0.06 code = 7709281982) LYMPH x10^3 (test code 0.87 10*3/uL 1.32-3.29 L = 731-0) MONO x10^3 (test code 0.53 10*3/uL 0.33-0.92 = 742-7) EOS x10^3 (test code = 0.15 10*3/uL 0.03-0.39 711-2) BASO x10^3 (test code <0.03 0.01-0.07 = 704-7) PLT ESTIMATE (test Decreased Normal A code = 9317-9) Lab Interpretation Abnormal (test code = 83578-0) [facility] Metabolic Panel (NA, K, CL, CO2, GLUCOSE, BUN, CREATININE, [place])2020-02-21 11:23:00 Test Item Value Reference Range Interpretation Comments NA (test code = 138 mmol/L 135-145 2859748049) K (test code = 3.5 mmol/L 3.5-5 0269074316) CL (test code = 103 mmol/L 98-108 6962671562) CO2 TOTAL (test code = 27 mmol/L 23-31 5002230961) AGAP (test code = 2-16 4970219558) BUN (test code = 22 mg/dL 7-23 2929873673) GLUCOSE (test code = 189 mg/dL 70-110 H 9860474141) CREATININE (test code = 0.65 mg/dL 0.5-1.04 9150884205) CALCIUM (test code = 9.2 mg/dL 8.6-10.6 8002547639) eGFR Calculation mL/min/1.73m2 (Non-) (test code = 8920371805) eGFR Calculation mL/min/1.73m2 () (test code = 0124872697) MARY (test code = MARY) Association of [...] tests). Lab Interpretation Abnormal (test code = 34385-0) [facility]2020-02-21 01:41:00 Test Item Value Reference Range Interpretation Comments POCT GLU (test code = 5794278185) 196 mg/dL 70-110 H Lab Interpretation (test code = Abnormal 28214-4) [facility] HospitalGlycosylated Hemoglobin (A1C)2020-02-21 01:36:00 Test Item Value [...] Indicated Lab Interpretation Abnormal (test code = 55777-8) [facility] HospitalMagnesium [id number] 01:32:00 Test Item Value Reference Range Interpretation Comments MAGNESIUM (test code = 4884697313) 1.6 mg/dL 1.7-2.4 L Lab Interpretation (test code = Abnormal 46943-2) [facility] HospitalLipid Panel (Total Cholesterol, Triglycerides, HDL) - [id number] 01:30:00 Test Item Value Reference Range Interpretation Comments CHOL (test code = 180 mg/dL 120-200 2257312355) HDL (test code = 45 mg/dL >50 L 8860037199) HDLC RATIO (test code = See_Comment [Au tomated message] 1478660853) The system [employer] generated this result transmit carlitos reference range : <=4.5. The refe rence range was not u sed to interpret th is result as normal/abnormal . TRIG (test code = 88 mg/dL 30-170 9014675315) LDL CHOL (test code = 117 mg/dL See_Comment [Auto mated message] 24914-9) The system [employer] generated this result transmit carlitos reference range : <=160. The refe rence range was not u sed to interpret th is result as normal/abnormal . VLDL (test code = 18 mg/dL 5-60 2157755630) Lab Interpretation (test Abnormal code = 99086-6) [facility] HospitalCORONAVIRUS COVID-19 [id number] 23:38:00 Test Item Value Reference Range Interpretation Comments SARS-CoV-2 (test code = Not Detected Not Detected 32272-0) MARY (test code = MARY) ID NOW COVID-19 Assay is an isothermal nucleic acid amplification test intended for the qualitative detection of nucleic acid from SARS-CoV-2 viral RNA in nasopharyngeal (MEDICAL LIBRARIAN) specimens. It is used under Emergency Use [...] indicated. Lab Interpretation Normal (test code = 71536-5) [facility] HospitalXR CHEST 2 [id number] 23:00:37Impression: No focal consolidation or pneumothorax. Small [...] reviewed this study and agree with the abovereport.[facility] HospitalURINALYSIS2020-04-06 22:53:00 Test Item Value Reference Range Interpretation Comments APPEARANCE (test code = Hazy Clear A 9627424122) COLOR (test code = Denita Yellow A 0678441015) PH (test code = 4.8-8.0 5317058648) SP GRAVITY (test code = 1.003-1.030 H 7319327249) GLU U QUAL (test code = 50 mg/dL Normal A 8751407505) BLOOD (test code = Negative Negative INTERFERE NCE FROM 2602437591) ASCORBIC ACID M AY CAUSE FALSE NEG ATIVE RESULT KETONES (test code = Negative Negative 9102131607) PROTEIN (test code = 30 mg/dL Negative A 2887-8) UROBILIN (test code = 4.0 mg/dL Normal A 8320473035) BILIRUBIN (test code = 2 mg/dL Negative A 4961665909) NITRITE (test code = Negative Negative 4207336831) LEUK SABA (test code = Negative Negative 0076020649) RBC/HPF (test code = <1 See_Comment [Autom ated message] 1464906519) The system [employer] generated this result transmitted ref erence range: 0 - 3 HP F. The reference range was not used to int erpret this result as normal/abnormal . WBC/HPF (test code = See_Comment H [Autom ated message] 1764334744) The system [employer] generated this result transmitted ref erence range: 0 - 5 HP F. The reference range was not used to int erpret this result as normal/abnormal . BACTERIA (test code = Few Negative A 0313424640) MUCOUS (test code = Marked Negative LPF A 0952544353) SQ EPITH (test code = HPF 4053481270) Ictotest (test code = Negative 5782729718) Lab Interpretation Abnormal (test code = 64638-2) [facility] [id number] 22:41:00 Test Item Value Reference Range Interpretation Comments TROPONIN I (test 0.010 ng/mL See_Comment [Automated code = 2768792968) message] The system which generated this result [...] ? Lab Interpretation Normal (test code = 48053-5) [facility] HospitalCT HEAD WO [id number] 22:40:19Addendum by Ronaldo Link MD on 02/20/2020 [...] less likely focal hemorrhage. Attention onfollow-up is recommended.[facility]. METABOLIC PANEL (95021)2020-02-20 22:30:00 Test Item Value Reference Range Interpretation Comments NA (test code = 139 mmol/L 135-145 9139615752) K (test code = 3.8 mmol/L 3.5-5 7564546155) CL (test code = 104 mmol/L 98-108 0792415740) CO2 TOTAL (test code = 27 mmol/L 23-31 6070181781) AGAP (test code = 2-16 0066026361) BUN (test code = 23 mg/dL 7-23 6027359551) GLUCOSE (test code = 244 mg/dL 70-110 H 2574459733) CREATININE (test code = 0.71 mg/dL 0.5-1.04 8003501765) TOTAL BILI (test code = 1.0 mg/dL 0.1-1.3 6157415558) CALCIUM (test code = 9.4 mg/dL 8.6-10.6 0037051837) T PROTEIN (test code = 7.3 g/dL 6.3-8.2 2793404484) ALBUMIN (test code = 3.4 g/dL 3.5-5 L 5763461361) ALK PHOS (test code = 101 U/L 34-122 3167418209) ALTv (test code = 30 U/L 5-35 1742-6) AST(SGOT) (test code = 76 U/L 13-40 H 7803962813) eGFR Calculation mL/min/1.73m2 (Non-) (test code = 2983167105) eGFR Calculation mL/min/1.73m2 () (test code = 7855838681) MARY (test code = MARY) Association of [...] tests). Lab Interpretation Abnormal (test code = 82716-3) [facility] HospitalLIPASE2020-04-06 22:30:00 Test Item Value Reference Range Interpretation Comments LIPASE (test code = 2971200227) 62 U/L 0-220 Lab Interpretation (test code = Normal 22777-6) [facility] HospitalAMMONIA, [id number] 22:29:00 Test Item Value Reference Range Interpretation Comments AMMONIA (test code = 6172261539) 48 umol/L 9-33 H Lab Interpretation (test code = Abnormal 84284-8) [facility] WITH [id number] 22:19:00 Test Item Value Reference Range Interpretation [...] RDW-SD (test code = 41.2 fL 39-49.9 34500-1) RDW-CV (test code = 13.1 % 12-15.5 788-0) PLT (test code = See_Comment L [Automated 777-3) message] The sy stem which generated this result transmitted reference range : 166 - 358 10*3/ ?L. The reference r glenn was not used to interpret this result as normal/abnormal . MPV (test code = 11.7 fL 9.5-12.9 18124-1) NRBC/100 WBC (test See_Comment [Automat ed code = 3608409392) message] The system which generated this result transmitted reference range : 0.0 - 10.0 /100 WBCs. The refer ence range was not u sed to interpret th is result as normal/abnormal . NRBC x10^3 (test code <0.01 See_Comment [Auto mated = 7527454512) message] The s ystem which generated this result transmitted reference range : 10*3/?L. The reference range was not used to interpret this result as normal/abnormal . GRAN MAT (NEUT) % 66.4 % (test code = 770-8) IMM GRAN % (test code 0.30 % = 4841380724) LYMPH % (test code = 17.6 % 736-9) MONO % (test code = 11.7 % 5905-5) EOS % (test code = 3.3 % 713-8) BASO % (test code = 0.7 % 706-2) GRAN MAT x10^3(ANC) 4.04 10*3/uL 1.88-7.09 (test code = 9757893248) IMM GRAN x10^3 (test <0.03 0-0.06 code = 3199291312) LYMPH x10^3 (test code 1.07 10*3/uL 1.32-3.29 L = 731-0) MONO x10^3 (test code 0.71 10*3/uL 0.33-0.92 = 742-7) EOS x10^3 (test code = 0.20 10*3/uL 0.03-0.39 711-2) BASO x10^3 (test code 0.04 10*3/uL 0.01-0.07 = 704-7) Lab Interpretation Abnormal (test code = 34659-8) [facility] HospitalANTI-MITOCHONDRIAL AB, REFLEX TO TITER 2019-09-28 07:59:00 Test Item Value Reference Range Interpretation Comments SCAN RESULT (test code = 3964693) RESPIRATORY PANEL [id number] 13:14:00 Test Item Value Reference Range Interpretation [...] decisions. This sample was tested at the [facility] using the [employer] FilmArray Respiratory Panel. It is FDA cleared and has been verified and approved by the [facility] for clinical use on nasopharyngeal swab specimens.The performance of the FilmArrayRP has not been established in individuals who received influenza vaccine. Recent administration of a nasal influenza vaccine may cause false positive results for Influenza A and/orInfluenza B.POCT-GLUCOSE [id number] 13:03:00 Test Item Value Reference Range Interpretation Comments POC-GLUCOSE METER 258 mg/dL 70-110 H : TESTED Bette Cahndra [facility] 6720 (SAIDA) (test code = [place], 1538) [address]: Manager Student Services/Techni bravo ID = [id number] for Yue Kennedy POCT-GLUCOSE [id number] 08:53:00 Test Item Value Reference Range Interpretation Comments POC-GLUCOSE METER 197 mg/dL 70-110 H : TESTED A T [facility] 6720 (BEAKER) (test code = [facility], 1538) [address]: Manager Student Services/Techni bravo ID = [id number] for JOSE LUIS MIX POCT-GLUCOSE [id number] 23:16:00 Test Item Value Reference Range Interpretation Comments POC-GLUCOSE METER 246 mg/dL 70-110 H : TESTED A T [facility] 67[address] (BEAKER) (test code = [facility], 1538) 68[address]: Manager Student Services/Techni bravo ID = [id number] for GONZÁLEZ SIMS POCT-GLUCOSE [id number] 18:13:00 Test Item Value Reference Range Interpretation Comments POC-GLUCOSE METER 254 mg/dL 70-110 H : TESTED A T [facility] 6720 (BEAKER) (test code = [facility], 153) 938[address]: Manager Student Services/Techni bravo ID = [id number] for ST OJCIC, NADA POCT-GLUCOSE [id number] 13:25:00 Test Item Value Reference Range Interpretation Comments POC-GLUCOSE METER 201 mg/dL 70-110 H : TESTED A T [facility] 6720 (BEAKER) (test code = [facility], 1538) 61701: Manager Student Services/Techni bravo ID = [id number] for ST OJCIC, NADA POCT-GLUCOSE [id number] 08:22:00 Test Item Value Reference Range Interpretation Comments POC-GLUCOSE METER 184 mg/dL 70-110 H : TESTED A T [facility] 6720 (BEAKER) (test code = [facility], 153) 55623: Manager Student Services/Techni bravo ID = [id number] for ST OJCIC, NADA POCT-GLUCOSE [id number] 23:53:00 Test Item Value Reference Range Interpretation Comments POC-GLUCOSE METER 297 mg/dL 70-110 H : TESTED A T [facility] 67[address] (BEAKER) (test code = [facility], 153) 41297: Manager Student Services/Techni bravo ID = [id number] for CARLIEMICHAEL Raphael POCT-GLUCOSE [id number] 18:55:00 Test Item Value Reference Range Interpretation Comments POC-GLUCOSE METER 256 mg/dL 70-110 H : TESTED A T [facility] 67[address] (BEAKER) (test code = [place] [facility], 1538) 67[address]: Manager Student Services/Techni bravo ID = [id number] for DO BBINS, OFELIA POCT-GLUCOSE [id number] 18:49:00 Test Item Value Reference Range Interpretation Comments POC-GLUCOSE METER 213 mg/dL 70-110 H : TESTED A T [facility] 6720 (BEAKER) (test code = [facility] Chiki [facility], 1538) 99068: Manager Student Services/Techni bravo ID = [id number] for DO BBINS, OFELIA POCT-GLUCOSE [id number] 18:44:00 Test Item Value Reference Range Interpretation Comments POC-GLUCOSE METER 216 mg/dL 70-110 H : TESTED A T [facility] 6720 (BEAKER) (test code = [facility] Chiki [facility], 1538) 09839: Manager Student Services/Techni bravo ID = [id number] for DO BBINS, OFELIA CBC W/PLT COUNT & AUTO [id number] 09:27:00 Test Item Value Reference Range Interpretation [...] PERCENT (BEAKER) (test code = 2801) POCT-GLUCOSE [id number] 00:33:00 Test Item Value Reference Range Interpretation Comments POC-GLUCOSE METER 330 mg/dL 70-110 H : Notified RN/MD: (SAIDA) (test code = TESTED AT [place] [address]) [facility], [address]: Manager Student Services/Techni bravo ID = [id number] for Kathryn Hidalgo POCT-GLUCOSE [id number] 18:45:00 Test Item Value Reference Range Interpretation Comments POC-GLUCOSE METER 335 mg/dL 70-110 H : Notified RN/MD: (SAIDA) (test code = TESTED AT [place] [address]) [facility], [address]: Manager Student Services/Techni bravo ID = [id number] for OL MOSNOLVIAIS BLOOD GAS, [id number] 15:34:00 Test Item Value Reference Range Interpretation [...] has been upright for 15 minutes.POCT- GLUCOSE [id number] 10:59:00 Test Item Value Reference Range Interpretation Comments POC-GLUCOSE METER 185 mg/dL 70-110 H : TESTED A T [facility] 6720 (BEAKER) (test code = [facility] [employer] [facility], 1538) 324[address]: Manager Student Services/Techni bravo ID = [id number] for MARIA GUADALUPE COX POCT-GLUCOSE [id number] 07:44:00 Test Item Value Reference Range Interpretation Comments POC-GLUCOSE METER 235 mg/dL 70-110 H : TESTED A T [facility] 6720 (BEAKER) (test code = [facility] [employer] [facility], 1538) 99098: Manager Student Services/Techni bravo ID = [id number] for TWYLA HAWKINS BILIRUBIN, [id number] 06:38:00 Test Item Value Reference Range Interpretation Comments BILIRUBIN DIRECT 0.3 mg/dL 0.1-0.5 Specimen sl ightly (BEAKER) (test code = hemoly zed 706) POCT-GLUCOSE [id number] 23:23:00 Test Item Value Reference Range Interpretation Comments POC-GLUCOSE METER 367 mg/dL 70-110 H : TESTED A T [facility] 6720 (BEAKER) (test code = [facility] [employer] [facility], 1538) 87467: Manager Student Services/Techni bravo ID = [id number] for MICHAEL CRAIG POCT-GLUCOSE [id number] 18:06:00 Test Item Value Reference Range Interpretation Comments POC-GLUCOSE METER 296 mg/dL 70-110 H : TESTED A T [facility] 6720 (BEAKER) (test code = [facility], 1538) 069[address]: Manager Student Services/Techni bravo ID = [id number] for FLORENCIO CORDOBA POCT-GLUCOSE [id number] 13:06:00 Test Item Value Reference Range Interpretation Comments POC-GLUCOSE METER 234 mg/dL 70-110 H : TESTED Bette Chandra [facility] 67[address] (SAIDA) (test code = [place], [address]38) [address]: Manager Student Services/Techni bravo ID = [id number] for TWYLA HAWKINS CT, ABDOMEN, [id number] 12:02:00Please scan with liver protocolFINAL REPORT TECHNIQUE: [...] 3.Small bilateral pleural effusions. Signed: Hanh Haile Verified Date/Time: 09/16/2019 12:02:29 Reading Location: [address] Body Reading Room POCT-GLUCOSE METER 2019-09-16 10:32:00 Test Item Value Reference Range Interpretation Comments POC-GLUCOSE METER 241 mg/dL 70-110 H : TESTED A T [facility] 6720 (BEAKER) (test code = [place], 1538) 39[address]: Manager Student Services/Techni bravo ID = [id number] for FLORENCIO CORDOBA HEPATIC FUNCTION [id number] 07:48:00 Test Item Value Reference Range Interpretation [...] = 20 U/L 6-55 347) BASIC METABOLIC [id number] 07:48:00 Test Item Value Reference Range Interpretation [...] NOT APPLICABLE FOR DIALYSIS PATIEN TS. PROTHROMBIN TIME/[id number] 07:16:00 Test Item Value Reference Range Interpretation [...] 2.5-3.5 for patients wiht mechanical heart valves.POCT-GLUCOSE [id number] 06:57:00 Test Item Value Reference Range Interpretation Comments POC-GLUCOSE METER 241 mg/dL 70-110 H : TESTED A T [facility] 6720 (BEAKER) (test code = [place], 1538) 12[address]: Manager Student Services/Techni bravo ID = [id number] for AL BETH CBC W/PLT COUNT & AUTO [id number] 06:53:00 Test Item Value Reference Range Interpretation [...] PERCENT (BEAKER) (test code = 2801) POCT-GLUCOSE [id number] 17:32:00 Test Item Value Reference Range Interpretation Comments POC-GLUCOSE METER 259 mg/dL 70-110 H : TESTED A T [facility] 6720 (BEAKER) (test code = [facility], 1538) 38242: Manager Student Services/Techni bravo ID = [id number] for TWYLA HAWKINS POCT-GLUCOSE [id number] 15:11:00 Test Item Value Reference Range Interpretation Comments POC-GLUCOSE METER 200 mg/dL 70-110 H : Will Rep eat Test: (BEAKER) (test code = Notifi ed RN/MD: Verify 1538) w/ Lab Draw: [facility] STED AT [facility] [address] [facility], [address]: Manager Student Services/Techni bravo ID = [id number] for NG BARBARA, DANNY HEMOGLOBIN [id number] 13:55:00 Test Item Value Reference Range Interpretation Comments HEMOGLOBIN A1C (BEAKER) (test code = 9.4 % 4.3-6.1 H 368) RAD, CHEST, 1 VIEW, NON [id number] 13:32:00Reason for exam:->SOBShould this be performed at the bedside?->YesFINAL REPORT INDICATION: SOB COMPARISON: None TECHNIQUE: Single frontal view ofthe chest. FINDINGS: Lungs and pleura: Clear lungs. No effusion.Heart and mediastinum: Normal heart size. Unremarkable mediastinal contours.Osseous structures: No acute abnormality.Other: None. IMPRESSION: No acute intrathoracic abnormality. Signed: Mildred Sampson Verified Date/Time: 09/15/2019 13:32:27 Reading Location: [facility] Radiology Reading Room POCT-GLUCOSE [id number] 12:11:00 Test Item Value Reference Range Interpretation Comments POC-GLUCOSE METER 227 mg/dL 70-110 H : TESTED A T [facility] 6720 (BEAKER) (test code = [place], 1538) 368[address]: Manager Student Services/Techni bravo ID = [id number] for MAXX EDWARDS (CELLAVISION MANUAL DIFF)2019-09-15 09:13:00 [...] 3438) Received comment: User comments: Slide comments:POCT-GLUCOSE [id number] 08:34:00 Test Item Value Reference Range Interpretation Comments POC-GLUCOSE METER 219 mg/dL 70-110 H : TESTED A T [facility] 6720 (BEAKER) (test code = [place], 1538) 23279: Manager Student Services/Techni bravo ID = [id number] for Or yasmeen January [id number] 07:30:00 Test Item Value Reference Range Interpretation Comments FERRITIN (BEAKER) (test code = 361) 11 ng/mL 5-275 HEPATITIS A ANTIBODY, [id number] 06:17:00 Test Item Value Reference Range Interpretation Comments HEPATITIS A IGG ANTIBODY (BEAKER) Reactive Nonreactive A (test code = 2797) CBC W/PLT COUNT & AUTO [id number] 05:50:00 Test Item Value Reference Range Interpretation [...] (BEAKER) (test code = 413) COMPREHENSIVE METABOLIC [id number] 05:49:00 Test Item Value Reference Range Interpretation [...] FOR DIALYSIS PATIEN TS. HEPATITIS B SURFACE [id number] 05:48:00 Test Item Value Reference Range Interpretation Comments HEPATITIS B SURFACE ANTIBODY < mIU/mL <8.0 (BEAKER) (test code = 647) HEPATIC FUNCTION [id number] 05:44:00 Test Item Value Reference Range Interpretation [...] 0-100 H (test code = 700) PROTHROMBIN [id number] 05:23:00 Test Item Value Reference Range Interpretation [...] 2.5-3.5 for patients wiht mechanical heart valves.POCT-GLUCOSE [id number] 21:42:00 Test Item Value Reference Range Interpretation Comments POC-GLUCOSE METER 286 mg/dL 70-110 H : TESTED A T [facility] 6720 ([employer]) (test code = [facility] [employer] [facility], 1538) 16230: Manager Student Services/Techni bravo ID = [id number] for NICHOLE ELKINS POCT-GLUCOSE [id number] 19:12:00 Test Item Value Reference Range Interpretation Comments POC-GLUCOSE METER 219 mg/dL 70-110 H : TESTED A T [facility] 67[facility] ([employer]) (test code = [facility] [employer] [facility], 1538) [address]79: Manager Student Services/Techni bravo ID = [id number] for RUFINO HIGGINS CREATININE, RANDOM [id number] 19:07:00 Test Item Value Reference Range Interpretation Comments CREATININE URINE (BEAKER) (test 63.7 mg/dL code = 375) Reference Range: No NormalsSODIUM, RANDOM [id number] 19:07:00 Test Item Value Reference Range Interpretation Comments SODIUM URINE (BEAKER) (test code = 66 meq/L 243) Reference Range: No NormalsURINALYSIS W/ REFLEX URINE [id number] 18:51:00 Test Item Value Reference Range Interpretation [...] 173 mg/dL 22-293 (test code = 638) [id number] 17:00:00 Test Item Value Reference Range Interpretation Comments ALPHA-1 ANTITRYPSIN (BEAKER) 104.20 mg/dL 90.00-200.00 (test code = 502) [id number] 15:44:00 Test Item Value Reference Range Interpretation Comments FERRITIN (BEAKER) (test code = 361) 4 ng/mL 5-275 L HEMOGLOBIN AND [id number] 14:54:00 Test Item Value Reference Range Interpretation [...] mg/dL 540-1,822 (test code = 427) POCT-GLUCOSE [id number] 13:43:00 Test Item Value Reference Range Interpretation Comments POC-GLUCOSE METER 175 mg/dL 70-110 H : Notified RN/MD: TESTED (BEAKER) (test code AT [place] [address] [address] = 1538) [facility], [facility] 30: Manager Student Services/Techni bravo ID = [id number] for MOOD Y, SHAWNTELL POCT-GLUCOSE [id number] 09:14:00 Test Item Value Reference Range Interpretation Comments POC-GLUCOSE METER 200 mg/dL 70-110 H : Notified RN/MD: TESTED (BEAKER) (test code AT [place] [address] [address] = 1538) [facility], [facility] 30: Manager Student Services/Techni bravo ID = [id number] for MOOD Y, ZINANTELL HEPATITIS PANEL, [id number] 03:41:00 Test Item Value Reference Range Interpretation Comments HEPATITIS A IGM ANTIBODY (BEAKER) Nonreactive Nonreactive (test code = 498) HEPATITIS B CORE IGM ANTIBODY Nonreactive Nonreactive (BEAKER) (test code = 645) HEPATITIS C ANTIBODY (BEAKER) Nonreactive Nonreactive (test code = 367) HEPATITIS B SURFACE ANTIGEN (2) Nonreactive Nonreactive (BEAKER) (test code = 2585) TROPONIN [id number] 03:25:00 Test Item Value Reference Range Interpretation [...] H (test code = 700) BASIC METABOLIC [id number] 03:12:00 Test Item Value Reference Range Interpretation [...] APPLICABLE FOR DIALYSIS PATIEN TS. HEPATIC FUNCTION [id number] 03:12:00 Test Item Value Reference Range Interpretation [...] slightly (test code = 347) hemolyzed PROTHROMBIN [id number] 03:09:00 Test Item Value Reference Range Interpretation [...] mechanical heart valves.CBC W/PLT COUNT & AUTO [id number] 02:56:00 Test Item Value Reference Range Interpretation [...] Notes Date/Time Note Provider Source 2021-04-05 19:55:00-00:00 [id number] [place] [id number] PATIENT NAME: RENA SINCLAIR ADMIT DATE: 0 02/15/21 ACCOUNT NO: [id number] ROOM NO: [facility] AGE: 70 REPORT TYPE: DISCHARGE SUMMARY REPORT [...] is a 72-year-old fe male referred from [facility] with severe anemia. She has [...] By: Briana Walden MD WT: DS:ELIZABET/FARZAD/VAISHALI Conf#: [id number]/DID#: [id number] Authenticated and Edited by Briana muñiz MD On 04/06/21 7:40:15 PM at 1943 PATIENT NAME: RENA SINCLAIR ACCOUNT #: [id number] 2021-02-18 10:56:00-00:00 [facility] ([facility] Gastroenterology Progress Note REPORT#:[id number] REPORT STATUS: Signed DATE:02/18/21 TIME: 1056 PATIENT: RENA SINCLAIR UNIT #: [id number] [facility] AGE: 70 SEX: F ATTEND: Felicita Walden MD ADM AUTHOR: Mason Ward MD * ALL edits or amendments must be made on the el [employer]/computer document * Subjective HPI: Interval hx: Scheduled for paracentesis today CONSULTING PHYSICIAN: Mason Ward MD REASON FOR CONSULTATION: Gastrointestinal bleed. HISTORY OF PRESENT ILLNESS: The patient is a 70- year-old female who was transferred from [facility] in [facility] in [place] for severe anemia. The patient had been [...] bleeding. She was transferred to [facility]. She also had a CAT [...] normal in spection, painless range of motion Neuro/GYROSCOPIC ENGINEERING TECHNICIAN: alert, oriented X 3 Skin: dry, intact [...] Mason Ward MD 02/27/21 at 1820 RPT #:[id number] END OF REPORT 2021-02-18 09:33:00-00:00 [facility] ([facility]) Brief Op Note REPORT#:[id number] REPORT STATUS: Signed DATE:02/18/21 TIME: 932 PATIENT: RENA SINCLAIR UNIT #: [id number] ROOM/BED: [address] : 50 AGE: 70 SEX: F ATTEND: Felicita Walden MD ADM AUTHOR: Trudi Dhillon * ALL edits or amendments must be made on the el [employer]/computer document * Op/Inv Proc Note - Brief Pre-procedure diagnosis: Ascites Post-procedure diagnosis: same as pre procedure dx Procedures performed: Paracentesis Primary Surgeon: Trudi Dhillon PA-C Market Risk Specialist(s): none Anesthesia: local anesthesia Findings: Successful ultrasound guided paracentesis, removed 10.1L of clear yellow fluid. 75g of 25% albumin was given . Pt tolerated procedure well. More detailed report in PACS. Complications: none Estimated blood loss in ml's: none Specimens removed/altered: none Disposition: return to floor, stable Electronically Signed by Trudi Dhillon on 0 02/18/21 at 1002 at 1427 RPT #:[id number] END OF REPORT 2021-02-18 09:33:00-00:00 [facility] ([facility]) Brief Op Note REPORT#:[id number] REPORT STATUS: Signed DATE:02/18/21 TIME: 932 PATIENT: RENA SINCLAIR UNIT #: [id number] ROOM/BED: [address] : 50 AGE: 70 SEX: F ATTEND: Felicita Walden MD ADM AUTHOR: Trudi Dhillon * ALL edits or amendments must be made on the [employer] document * Op/Inv Proc Note - Brief Pre-procedure diagnosis: Ascites Post-procedure diagnosis: same as pre procedure dx Procedures performed: Paracentesis Primary Surgeon: Trudi Dhillon PA-C Market Risk Specialist(s): none Anesthesia: local anesthesia Findings: Successful ultrasound guided paracentesis, removed 10.1L of clear yellow fluid. 75g of 25% albumin was given . Pt tolerated procedure well. More detailed report in PACS. Complications: none Estimated blood loss in ml's: none Specimens removed/altered: none Disposition: return to floor, stable Electronically Signed by Trudi Dhillon on 0 02/18/[address] [place] [address] #:[id number] END OF REPORT 2021-02-17 23:52:00-00:00 [facility] Internal Medicine Prog. Note REPORT#:[id number] REPORT STATUS: Signed DATE:02/17/21 TIME: 2351 PATIENT: RENA SINCLAIR UNIT #: [id number] ROOM/BED: [address] : 50 AGE: 70 SEX: F ATTEND: Felicita Walden MD ADM AUTHOR: Campbell Posey MD * ALL edits or amendments must be made on the [employer] document * Subjective Patient reports: abdominal pain [...] normal in spection, painless range of motion Neuro/GYROSCOPIC ENGINEERING TECHNICIAN: alert, no motor deficits Skin: no rash [...] MG/DL) 157 H 165 H 173 H 128 H Calcium (8.4 - 10.2 MG/DL) 7.9 [...] Campbell Posey MD on at 1654 RPT #:[id number] END OF REPORT 2021-02-17 14:31:00-00:00 [facility] ([facility]) Gastroenterology Progress Note REPORT#:[id number] REPORT STATUS: Signed DATE:02/17/21 TIME: 1431 PATIENT: RENA SINCLAIR UNIT #: [id number] ROOM/BED: [address] : 50 AGE: 70 SEX: F ATTEND: Felicita Walden MD ADM AUTHOR: Mason Ward MD * ALL edits or amendments must be made on the [employer]/computer document * Subjective HPI: Interval hx: Scheduled for paracentesis am CONSULTING PHYSICIAN: Mason Ward MD REASON FOR CONSULTATION: Gastrointestinal bleed. HISTORY OF PRESENT ILLNESS: The patient is a 70- year-old female who was transferred from [facility] in [facility] in [place] for severe anemia. The patient had been [...] bleeding. She was transferred to [facility]. She also had a CAT [...] normal in spection, painless range of motion Neuro/GYROSCOPIC ENGINEERING TECHNICIAN: alert, oriented X 3 Skin: dry, intact Lymphatics: axilla normal, inguinal normal, neck normal, no lymphadenopathy Diagnosis, Assessment Plan Problem List/A P: 1. Severe anemia 2. Cirrhosis 3. Ascites Free Text A P: Severe anemia; No evidence of gi bleed Likely due to multiple factors ,including seques tration Ascites: schedueld for paracentesis on Thursday Cirrhosis; stable Electronically Signed by Mason Ward MD n 02/17/21 at 1526 RPT #:[id number] END OF REPORT 2021-02-16 12:49:00-00:00 [facility] ([facility]) Internal Medicine Prog. Note REPORT#:[id number] REPORT STATUS: Signed DATE:02/16/21 TIME: 1249 PATIENT: RENA SINCLAIR UNIT #: [id number] ROOM/BED: [address] : 50 AGE: 70 SEX: F ATTEND: Felicita Walden MD ADM AUTHOR: Campbell Posey MD * ALL edits or amendments must be made on the el [employer]/computer document * Subjective Patient reports: SOB due to large abdomen Objective General VS/I O: Vital Signs Date Temp Pulse Resp B/P B/P Mean Pulse Ox FiO2 04/-02/16 97.5-99.7 57-85 11-24 106-172/48-83 67.4-103.7 94-100 21 Last Documented: Result Date Time Pulse Ox 98 02/16 1133 B/P 145/83 02/16 1133 B/P Mean 103.7 02/16 113 Temp 98.8 02/16 113 Pulse 61 02/16 1133 Resp 14 02/16 1133 O2 Delivery Room air 02/15 234 FiO2 21 02/15 2003 O2 Flow Rate [...] normal in spection, painless range of motion Neuro/GYROSCOPIC ENGINEERING TECHNICIAN: alert, no motor deficits Skin: no rash Lymphatics: no lymphadenopathy Results Findings/Data: Laboratory Tests 02/17/21 0538: [Embedded Image Not Available] Laboratory Tests 02/17 02/17 02/16 0736 0538 2050 Chemistry Sodium (137 - 145 MMOL/L) 136 [...] - 246 UNITS/L) 143 Laboratory Tests 02/17 538 Hematology Hgb (11.2 - 14.9 G/DL) 7.3 [...] Campbell Posey MD on at 1653 RPT #:[id number] END OF REPORT 2021-02-16 10:56:00-00:00 [facility] ([facility]) Gastroenterology Progress Note REPORT#:[id number] REPORT STATUS: Signed DATE:02/16/21 TIME: 1056 PATIENT: RENA SINCLAIR UNIT #: [id number] [facility] AGE: 70 SEX: F ATTEND: Felicita Walden MD ADM AUTHOR: Mason Ward MD * ALL edits or amendments must be made on the el [employer]/computer document * Subjective HPI: Interval hx: EGD and colonoscopy done yesterday and scehduled for paracentesis CONSULTING PHYSICIAN: Mason Ward MD REASON FOR CONSULTATION: Gastrointestinal bleed. HISTORY OF PRESENT ILLNESS: The patient is a 70- year-old female who was transferred from [facility] in [facility] in [place] for severe anemia. The patient had been [...] bleeding. She was transferred to [facility]. She also had a CAT [...] Ox 98 02/16 811 B/P 154/72 02/16 811 B/P Mean 99.1 02/16 08 Temp 37.6 02/16 811 Pulse 74 02/16 811 Resp 11 02/16 08 O2 Delivery Room [...] normal in spection, painless range of motion Neuro/GYROSCOPIC ENGINEERING TECHNICIAN: alert, oriented X 3 Skin: dry, intact Lymphatics: axilla normal, inguinal normal, neck normal, no lymphadenopathy Diagnosis, Assessment Plan Problem List/A P: 1. Severe anemia 2. Cirrhosis 3. Ascites Free Text A P: Severe anemia; No evidence of gi bleed Likely due to multiple factors ,including seques tration Ascites: schedueld for paracentesis Cirrhosis; stable Electronically Signed by Mason Ward MD n 02/16/21 at 1342 RPT #:[id number] END OF REPORT 2021-02-15 20:31:00-00:00 [phone] [place] [id number] PATIENT NAME: RENA SINCLAIR ADMIT DATE: 02/15/21 ACCOUNT NO: [id number] ROOM NO: [facility] AGE: 70 REPORT TYPE: CONSULTATION REPORT SEX: F ADMITTING PHYSICIAN:Briana Walden MD ATTENDING PHYSICIAN:Briana Walden MD CONSULTATION DATE: CONSULTING PHYSICIAN: Mason Ward MD REASON FOR CONSULTATION: Gastrointestinal bleed. HISTORY OF PRESENT ILLNESS: The patient is a 70- year-old female who was transferred from [facility] in [facility] in [place] for severe anemia. The patient had been [...] bleeding. She was transferred to [facility]. She also had a CAT [...] S1, S2. ABDOMEN: Soft, was nondistended. No organomegal y. CENTRAL NERVOUS SYSTEM: Alert. LABORATORY DATA: Hemoglobin 7.7, white count 3.2 , platelets 79,000. BUN 36, creatinine 1.30. Bilirubin 1.3, AST 41, ALT 177, ALP 71. Sodium 138, potassium 4.3. INR is 1.4. PATIENT NAME: RENA SINCLAIR ACCOUNT #: [id number] ASSESSMENT AND PLAN: 1. The patient is [...] By: Mason Ward MD WT: CON:ELIZABET/DMITRIY/NTS Conf#: [id number]/DID#: [id number] Authenticated by Mason Ward MD On 03/17 08:28:13 PM at 2028 PATIENT NAME: RENA SINCLAIR ACCOUNT #: [id number] 2021-02-15 19:57:00-00:00 [facility] ([facility]) DT History Physical REPORT#:[id number] REPORT STATUS: Signed DATE:02/15/21 TIME: 1956 PATIENT: RENA SINCLAIR UNIT #: [id number] ROOM/BED: [address] : 50 AGE: 70 SEX: F ATTEND: Felicita Walden MD ADM AUTHOR: Briana Walden MD * ALL edits or amendments must be made on the [employer]/computer document * History Physical History Physical Patient [...] emergenc y department at an outside facility ([facility]). They do not have GI on-call therefore the patient was transferred to [facility]. Subjective: [] Referred for higher level of [...] F low FiO2 Mean Ox Delivery Rate 02/15 1928 97.9 65 18 148/54 85.2 99 [...] % (Auto) (14 - 44 %) 15.1 [place] % (Auto) (4 - 13 %) 13.9 H Eos % (Auto) (0 - 6 %) 1.9 Baso % (Auto) (0 - 2 %) 0.6 Neut # (Auto) (2.0 - 7.6 K/mm3) 2.16 Lymph # (Auto) (1.0 - 3.8 K/mm3) 0.48 L [place] # (Auto) (0.1 - 0.8 K/mm3) 0.44 [...] MG DAILY 02/16 900 AC PO 03/18 09 Furosemide 40 MG DAILY 02/16 900 AC PO 03/18 09 Metoprolol Tartrate 100 MG DAILY 02/16 0900 AC PO 03/18 09 Rifaximin 550 MG DAILY 02/16 0900 AC PO 02/23 0901 Spironolactone 50 MG DAILY 02/16 0900 AC PO 03/18 0901 Pantoprazole 40 MG AC BK 02/16 0730 AC PO 03/18 0731 Albuterol Sulfate 2.5 MG RTQ4H PRN PRN [...] Signed by Briana Walden MD 02/15/21 at 2009 RPT #:[id number] END OF REPORT 2021-02-15 13:43:00-00:00 [phone] [place] [id number] PATIENT NAME: RENA SINCLAIR ADMIT DATE: 02/15/21 ACCOUNT NO: [id number] ROOM NO: [facility] AGE: 70 REPORT TYPE: ELECTROCARDIOGRAM SEX: F ADMITTING PHYSICIAN:Briana Walden MD ATTENDING PHYSICIAN:Briana Walden MD Order: [id number] Test Reason : PREOP Test Date/Time Stamp: ThuFeb 15 2021 13:43:59 Blood Pressure : / mmHG Vent. Rate : 055 BPM Atrial Rate : 055 BPM P-R Int : 144 ms QRS Dur : 088 ms QT Int : 466 ms P-R-T Axes : 061 017 054 degre es QTc Int : 445 ms Sinus bradycardia Otherwise normal ECG No previous ECGs available Confirmed by MD ZOHREH, ELEUTERIO WELDON ([id number]) on 02/15/2021 5:39:33 PM Referred By: Briana Walden Confirmed by:RODDY NEGRETE MD at 1739 PATIENT NAME: RENA SINCLAIR ACCOUNT #: [id number] 2021-02-15 13:28:00-00:00 [phone] [place] [id number] PATIENT NAME: RENA SINCLAIR ADMIT DATE: 02/15/21 ACCOUNT NO: [id number] ROOM NO: [facility] AGE: 70 REPORT TYPE: ENDOSCOPY REPORT SEX: F ADMITTING PHYSICIAN:Briana Walden MD ATTENDING PHYSICIAN:Briana Walden MD Endoscopy Patient Name: Rena Sinclair Procedure Date: 2020 1:28 PM Date of : 1950 Admit Type: Inpatient Age: 70 Room: Room 2 Gender: Female Attending MD: Mason Ward MD Instrument Name: [id number],GIF-[id number] Procedure: Upper GI endoscopy Indications: Iron deficiency anemia Providers: Mason Ward MD, Amber cerda, RN (Nurse), Erika Parham, Farm Equipment Mechanic Apprentice (Farm Equipment Mechanic Apprentice) Referring MD: Self Referred Medicines: Monitored Anesthesia [...] and oxygen saturations were monitored continuously. The E ndoscope was introduced through the mouth, and advanced to the second part of duodenum. The Endoscope was intr oduced through the mouth, and advanced to the second p art of duodenum. The upper GI endoscopy was accomplish ed without difficulty. The patient tolerated the p rocedure well. PATIENT NAME: RENA SINCLAIR ACCOUNT #: [id number] Findings: The examined esophagus was normal. Moderate [...] - COLONOSCOPY Procedure Code(s): --- Professional --- 82500, Esophagogastroduodenoscopy, flexible, tr ansoral; diagnostic, including collection of specimen(s ) by brushing or washing, when performed (separate p rocedure) Diagnosis Code(s): --- Professional --- K76.6, Portal hypertension K31.89, Other diseases of stomach and duodenum K31.7, Polyp of stomach and duodenum D50.9, Iron deficiency anemia, unspecified CPT copyright 2018 [employer]. All rights reserved. The codes documented in this report are prelimin james and upon veterinary meat inspector review may be revised to meet current compliance requiremen ts. Mason Ward MD Mason Ward MD 02/15/2021 2:05:58 PM This report has been signed electronically. Number of Addenda: 0 Note Initiated On: 02/15/2021 1:28 PM Procedure Date: 02/15/2021 1:28:03 PM Estimated Blood Loss: Estimated blood loss: none. [id number] [place], [place] [address] Provation {[id number]}.pdf ProVation FT PDF at 1406 PATIENT NAME: RENA SINCLAIR ACCOUNT #: [id number] 2021-02-15 13:27:00-00:00 [phone] [place] [address] PATIENT NAME: RENA SINCLAIR ADMIT DATE: 0 02/15/21 ACCOUNT NO: [id number] [facility] AGE: 70 REPORT TYPE: ENDOSCOPY REPORT [...] MD, Amber cazares RN (Nurse), Erika Parham, Farm Equipment Mechanic Apprentice (Farm Equipment Mechanic Apprentice) Referring MD: Self Referred Medicines: Monitored Anesthesia [...] IC valve and transillumination. The colonoscopy was perform ed without difficulty. The patient tolerated the procedure well. The quality of the bowel preparation was inadeq uate. Findings: PATIENT NAME: RENA SINCLAIR ACCOUNT #: [id number] There is no endoscopic evidence of bleeding, ma ss, stenosis, stricture, ulcerations or angiodysplasia in the entire col on. Impression: - Preparation of the colon was inade quate. - No specimens collected. Recommendation: - No evidence of active gi bleed resume diet iron therapy Procedure Code(s): --- Professional --- 65596, Colonoscopy, flexible; diagnostic, inclu ding collection of specimen(s) by brushing or washin g, when performed (separate procedure) Diagnosis Code(s): --- Professional --- D50.9, Iron deficiency anemia, unspecified CPT copyright 2018 [employer]. All rights reserved. The codes documented in this report are prelimin james and upon veterinary meat inspector review may be revised to meet current compliance requiremen ts. Mason Ward MD Mason Ward MD 02/15/2021 2:13:28 PM This report has been signed electronically. Number of Addenda: 0 Note Initiated On: 02/15/2021 1:27 PM Procedure Date: 02/15/2021 1:27:19 PM Estimated Blood Loss: Estimated blood loss: none. [id number] [place], [place] [address] Provation {[id number]}.pdf ProVation FT PDF at 1413 PATIENT NAME: RENA SINCLAIR ACCOUNT #: [id number] 2021-02-15 11:43:00-00:00 [facility] ([facility]) EMERGENCY PROVIDER REPORT REPORT#:[id number] REPORT STATUS: Signed DATE:02/15/21 TIME: 1143 PATIENT: RENA SINCLAIR UNIT #: [id number] ROOM/BED: [facility] AGE: 70 SEX: F PCP PHYS: DOES_NOT KNOW SERVICE AUTHOR: Finesse Hamilton MD LOCATION: [facility] * ALL edits or amendments must be made on the [employer]/computer document * HPI-General Illness Free Text HPI [...] emergenc y department at an outside facility ([facility]). They do not have GI on-call therefore [...] Pulse Ox 98 04/ 1134 B/P 126/64 04/ 1134 B/P Mean 84 / 1134 O2 Delivery Room air / 1134 Temp 36.6 04/ 1134 Pulse 62 04/ 1134 Resp 18 02/15 1134 Last Documented: Result Date Time Pulse Ox 98 04/ 1134 B/P 126/64 04/ 1134 B/P Mean 84 / 1134 O2 Delivery Room air 04 1134 Temp 36.6 04/ 1134 Pulse 62 04/ 1134 Resp 18 02/15 1134 Review of [...] % (Auto) (14 - 44 %) 15.1 [place] % (Auto) (4 - 13 %) 13.9 H Eos % (Auto) (0 - 6 %) 1.9 Baso % (Auto) (0 - 2 %) 0.6 Neut # (Auto) (2.0 - 7.6 K/mm3) 2.16 Lymph # (Auto) (1.0 - 3.8 K/mm3) 0.48 L [place] # (Auto) (0.1 - 0.8 K/mm3) 0.44 [...] Room air 02/15 1134 Temp 36.6 02/15 113 Pulse 62 02/15 1134 Resp 18 02/15 1134 Last Documented: Result Date Time Pulse Ox 98 02/15 1134 B/P 126/64 02/15 1134 B/P Mean 84 02/15 1134 O2 Delivery Room air 02/15 1134 Temp 36.6 02/15 1134 Pulse 62 02/15 1134 Resp 18 02/15 1134 All vital signs available at the [...] management were: Discussions with multiple medical providers, mon itoeveline pt response to tx, inputting admitting orders Electronically Signed by Finesse Hamilton MD on 01/06 at 1659 [facility] #:[id number] END OF REPORT
[2023-06-24 20:35] LABS: Hematocrit 24.6 % (36.0-45.0); MCV 88.2 fL (80-100); MPV 8.8 fL (7.6-11.3); Platelets 57 thou/uL (152-406); RBC Red Blood Cell Count 2.79 M/uL (3.86-4.86)
--- NOTE | 2023-06-24 20:46 | RAD REPORT ---
EXAM DESCRIPTION: CT - Head Brain Wo Cont - 06/24/2023 8:37 pm CLINICAL HISTORY: fall COMPARISON: Head Brain Wo Cont dated 05/15/2023; Ct Stroke Brain Wo Cont dated 06/28/2020 TECHNIQUE: All CT scans are performed using dose optimization technique as appropriate and may inclu de automated exposure control or mA/KV adjustment according to patient size. FINDINGS: No intracranial hemorrhage, hydrocephalus or extra-axial fluid collection.No areas of brai n edema or evidence of midline shift. Moderate chronic small vessel ischemic changes. The paranasal sinuses and mastoids are clear. The calvarium is intact. IMPRESSION: No acute intracranial abnormality.
[2023-06-24 20:50] LABS: Albumin 2.9 g/dL (3.4-5.0); Bilirubin Direct 0.6 mg/dL (0-0.2); Bilirubin Indirect, Calculated 0.9 mg/dL (0.2-0.8); Bilirubin Total 1.5 mg/dL (0.2-1.0); Potassium 4.7 mEq/L (3.5-5.1); Protein, Total 6.1 g/dL (6.4-8.2); Troponin High Sensitivity 14.6 pg/mL (<58.9)
--- NOTE | 2023-06-24 21:14 | RAD REPORT ---
EXAM DESCRIPTION: CTChest Abd Pelvis Wo Con - 06/24/2023 8:37 pm CLINICAL HISTORY: fall ascites COMPARISON: Chest For Pe Angio dated 09/13/2019 TECHNIQUE: CT of the chest, abdomen, and pelvis was performed without contrast. All CT scans are performed using dose optimization technique as appropriate and may include automated exposure control or mA/KV adjustment according to patient size. FINDINGS: Thorax: Chest Wall: No abnormal mass. Bilateral breast prostheses. Lungs: No acute abnormality. Pleura: Small pleural effusions. Alessandra/Mediastinum: No lymphadenopathy. Fluid present within a hiatal hernia. Aorta/Pulmonary Arteries: Unremarkable Heart: Normal size. Abdomen/Pelvis: Liver: Cirrhotic liver morphology. Biliary: No biliary ductal dilatation. Stomach: Gastric wall thickening is presumably related to portal hypertension. Duodenum: No significant focal abnormality. Pancreas: No significant abnormality. Spleen: Splenomegaly. Adrenal: No suspicious lesions. Kidney/ureter: No hydronephrosis. No renal calculi. Retroperitoneum: No retroperitoneal adenopathy. Vascular: No aneurysm. Large venous collaterals. Bowel: Small bowel and colonic wall thickening likely . Peritoneum: Large volume of ascites. Bladder: Grossly unremarkable. Reproductive: No adnexal masses. Bones: No acute fracture. Motion artifact at the sternum. Other: n/a IMPRESSION: No evidence of significant acute trauma to the chest abdomen, or pelvis. Large volume of ascites.
--- NOTE | 2023-06-24 21:19 | EDPHYS ---
Physician Documentation [facility] Name: Rena Burch Age: 72 yrs Sex: Female : 1950 Arrival Date: 06/24/2023 Time: 18:38 Bed 5 Private MD: ED Physician Denny Weber HPI: 06/24 23:00 This 72 yrs old Female presents to ER via EMS with complaints of fall at home.eliazar 20:49 The patient is a 72-year-old female with a history of end-stage liver disease awaiting cp3 liver transplant with a history of hepatic encephalopathy and chronic anemia secondary to hepatorenal syndrome and chronic kidney disease presents to the ED after mechanical fall at home. Patient endorses she called her daughter who took about 45 minutes to get to her and could not dislodge herself from the space between the bathroom on the floor and was unable to get herself up. Patient also endorses she has had worsening discomfort from her abdominal ascites as she was post to have a paracentesis last week but missed it secondary to an episode of hepatic encephalopathy. The patient complains of bilateral knee pain, bilateral chest wall pain and abdominal discomfort. Historical: - Allergies: 18:51 No Known Allergies; ko1 - Immunization history:: Adult Immunizations unknown. - Social history:: Smoking status: Patient denies any tobacco usage or history of. - Family history:: not pertinent. ROS: 20:49 Constitutional: Negative for fever, chills, and weight loss, ENT: Negative for injury, cp3 pain, and discharge, Neck: Negative for injury, pain, and swelling, Cardiovascular: Negative for chest pain, palpitations, and edema, Respiratory: Negative for shortness of breath, cough, wheezing, and pleuritic chest pain, Back: Negative for injury and pain, MS/Extremity: Negative for injury and deformity, Skin: Negative for injury, rash, and discoloration. 20:49 Abdomen/GI: Positive for nausea, abdominal distension, Abdominal distention secondary to ascites. 20:49 MS/extremity: Positive for tenderness, Bilateral knee tenderness and chest wall tenderness. 20:49 All other systems are negative. Exam: 20:49 Constitutional: This is a well developed, well nourished patient who is awake, alert, cp3 and in no acute distress. Head/Face: Normocephalic, atraumatic. Eyes: Pupils equal round and reactive to light, extra-ocular motions intact. Lids and lashes normal. Conjunctiva and sclera are non-icteric and not injected. Cornea within normal limits. Periorbital areas with no swelling, redness, or edema. ENT: Nares patent. No nasal discharge, no septal abnormalities noted. Tympanic membranes are normal and external auditory canals are clear. Oropharynx with no redness, swelling, or masses, exudates, or evidence of obstruction, uvula midline. Mucous membranes moist. Neck: Trachea midline, no thyromegaly or masses palpated, and no cervical lymphadenopathy. Supple, full range of motion without nuchal rigidity, or vertebral point tenderness. No Meningismus. 20:49 Respiratory: Lungs have equal breath sounds bilaterally, clear to auscultation and percussion. No rales, rhonchi or wheezes noted. No increased work of breathing, no retractions or nasal flaring. 20:49 Back: No spinal tenderness. No costovertebral tenderness. Full range of motion. Neuro: Awake and alert, GCS 15, oriented to person, place, time, and situation. Cranial nerves II-XII grossly intact. Motor strength 5/5 in all extremities. Sensory grossly intact. Cerebellar exam normal. Normal gait. Psych: Awake, alert, with orientation to person, place and time. Behavior, mood, and affect are within normal limits. 20:49 Chest/axilla: Patient with bilateral chest wall tenderness without crepitus. 20:49 Abdomen/GI: Patient with soft ascites without rebound or guarding. 20:49 Musculoskeletal/extremity: Patient with bilateral knee tenderness without deformity. Vital Signs: 18:51 BP 141 / 54; Pulse 67; Resp 18; Temp 98; Pulse Ox 100% on R/A; ko1 18:53 Pain 7/10; ko1 20:31 BP 128 / 45; Pulse 63; Resp 17 S; Pulse Ox 100% on R/A; lg3 21:20 BP 122 / 48; Pulse 67; Resp 16 S; Pulse Ox 100% on R/A; lg3 22:22 BP 102 / 42; Pulse 65; Resp 19 S; Pulse Ox 97% on R/A; kd3 23:16 BP 150 / 93; Pulse 70; Resp 19; Pulse Ox 100% on R/A; kd3 08/10 00:34 BP 133 / 51; Pulse 69; Resp 16; Pulse Ox 100% on R/A; kd3 01:42 BP 131 / 48; Pulse 69; Resp 19 S; Pulse Ox 100% on R/A; kd3 03:49 BP 133 / 43; Pulse 70; Resp 19; Pulse Ox 98% on R/A; kd3 18:53 Pain Scale: Adult ko1 MDM: 06/24 19:00 Patient medically screened. cp3 20:49 Differential diagnosis: Differential diagnosis includes syncope, arrhythmia, ACS, cp3 encephalopathy, intracranial hemorrhage, rib fracture, rib contusion, knee contusion, anemia, chronic kidney disease. Data reviewed: vital signs, nurses notes, EMS record. Consideration of Admission/Observation Escalation of care including admission/observation considered. Historians other than the Patient: Daughter/Son: The patient's daughter at bedside who provided history regarding patient's fall . 06/24 19:36 Order name: CBC w/o diff; Complete Time: 20:41 [facility] 06/24 19:36 Order name: Basic Metabolic Panel; Complete Time: 20:54 [facility] 06/24 19:36 Order name: Hepatic Function; Complete Time: 20:54 [facility] 06/24 19:36 Order name: Urinalysis W/Microscopic [facility] 06/24 19:36 Order name: Troponin High Sensitivity; Complete Time: 20:54 [facility] 06/24 21:20 Order name: AMMONIA; Complete Time: 22:57 [facility] 06/24 21:20 Order name: PT-INR; Complete Time: 22:57 [facility] 06/24 23:04 Order name: PRBC [facility] 06/24 23:04 Order name: SARS RAPID [facility] 06/24 23:07 Order name: ABO/RH typing [facility] 06/24 23:07 Order name: Antibody Screen [facility] 06/25 00:40 Order name: Urine Culture [facility] 06/24 19:36 Order name: CT Head Brain wo Cont; Complete Time: 20:48 [facility] 06/24 19:36 Order name: Knee Left 2 View XRAY; Complete Time: 22:57 [facility] 06/24 19:36 Order name: Knee Right 2 View XRAY; Complete Time: 22:57 [facility] 06/24 19:58 Order name: Chest Abd Pelvis Wo Con; Complete Time: 21:20 [facility] 06/24 19:36 Order name: EKG; Complete Time: 19:37 cp3 06/24 19:36 Order name: Saline Lock; Complete Time: 20:34 cp3 06/24 23:04 Order name: Transfuse; Complete Time: 02:01 eliazar 06/24 23:04 Order name: IV Saline Lock - Large Bore; Complete Time: 23:26 eliazar Administered Medications: 06/25 00:03 Drug: Pantoprazole IVP 40 mg Route: IVP; Site: right antecubital; kd3 01:42 Follow up: Response: No adverse reaction kd3 Disposition Summary: 06/25/23:38 Discharge Ordered Location: Home(06/25/23 00:38) eliazar Problem: an ongoing problem(06/25/23 00:38) eliazar Symptoms: have worsened(06/25/23 00:38) leiazar Condition: Fair(06/25/23 00:38) eliazar Diagnosis - Fall on same level, unspecified(06/25/23 00:38) eliazar - Weakness eliazar - Anemia, unspecified(06/25/23 00:38) eliazar - Contusion of left front wall of thorax eliazar - Contusion of left back wall of thorax(06/25/23 00:38) eliazar - Other ascites - LARGE VOLUME(06/25/23:38) eliazar - Unspecified kidney failure - CHRONIC(06/25/23:38) eliazar - Unspecified cirrhosis of liver - LEE eliazar Followup: eliazar - With: Private Physician - When: Tomorrow - Reason: Recheck today's complaints, Continuance of care, Re-evaluation by your physician Discharge Instructions: - Discharge Summary Sheet eliazar - Anemia eliazar - Ascites eliazar - Blood Transfusion, Adult eliazar - Cirrhosis eliazar - Near-Syncope eliazar - Weakness eliazar - Fatigue eliazar - Blood Transfusion, Adult, [id number]-[id number] eliazar - Weakness, Tgyn-lv-Ipug eliazar - Chronic Kidney Disease, Adult, Sngx-iv-[id number] eliazar - Deconditioning eliazar Forms: - Medication Reconciliation Form eliazar - Thank You Letter eliazar - Antibiotic Education eliazar - Prescription Opioid Use eliazar - Patient Portal Instructions eliazar Signatures: Dispatcher [employer] Denny Davenport MD MD cha Pinckney, Cwanza, MD MD cp3 Janiya Copeland RN RN kd3 Miracle Childs RN RN ko1 Corrections: (The following items were deleted from the chart) 08 19:58 19:37 Abdomen Pelvis Wo Con+CT.RAD.BRZ ordered. EDMS EDMS 19:58 19:37 Thorax Wo Con+CT.RAD.BRZ ordered. EDMS EDMS 21:19 21:18 Observation eliazar eliazar 21:19 21:18 Ru Nguyen eliazar eliazar 21:19 21:18 Telemetry/MedSurg (observation) eliazar eliazar 21:19 21:18 Fair eliazar eliazar 21:19 21:18 new eliazar eliazar 21:19 21:18 have improved eliazar eliazar 21:19 21:18 Standard eliazar eliazar 21:19 21:18 eliazar eliazar 21:19 21:18 Systolic (congestive) heart failure eliazar eliazar 21:19 21:18 Edema, unspecified eliazar eliazar 23:18 23:13 to rastafari eliazar eliazar 23:18 23:13 [employer] eliazar eliazar 06/25 00:36 06/24 23:13 Higher level of care eliazar eliazar 06/25 00:36 06/24 23:13 Fair eliazar eliazar 06/25 00:36 06/24 23:13 new eliazar eliazar 06/25 00:36 06/24 23:13 have improved eliazar eliazar 06/25 00:36 06/24 23:13 Unspecified kidney failure - chronic eliazar eliazar 06/25 00:36 06/24 23:13 Fall on same level, unspecified eliazar eliazar 06/25 00:36 06/24 23:13 Anemia, unspecified eliazar eliazar 06/25 00:36 06/24 23:13 Contusion of front wall of thorax eliazar eliazar 06/25 00:36 06/24 23:13 Contusion of left back wall of thorax eliazar eliazar 06/25 00:36 06/24 23:13 Other cirrhosis of liver - LEE eliazar eliazar 06/25 00:36 06/24 23:13 Other ascites - LARGE VOLUME eliazar eliazar 06/25 00:36 06/24 23:18 to [facility] eliazar eliazar 06/25 00:36 06/24 23:18 [facility] eliazar eliazar
--- NOTE | 2023-06-24 21:19 | ER ---
Nurse's Notes [facility] Name: Rena Burch Age: 72 yrs Sex: Female : 1950 Arrival Date: 06/24/2023 Time: 18:38 Bed 5 Private MD: Diagnosis: Fall on same level, unspecified;Weakness;Anemia, unspecified;Contusion of left front wall of thorax;Contusion of left back wall of thorax;Other ascites-LARGE VOLUME;Unspecified kidney failure-CHRONIC;Unspecified cirrhosis of liver-LEE Presentation: 06/24 18:49 Chief complaint: EMS states: patient fell, complaints of right side rib pain, skin ko1 tears to elbows, was on floor for 2 hours. Missed paracentesis appt on last Thursday. Liver transplant patient, had transfusion recently. No LOC, No blood thinners. 18:49 Method Of Arrival: EMS: [facility] ko1 18:53 Coronavirus screen: At this time, the client does not indicate any symptoms associated ko1 with coronavirus-19. Ebola Screen: No symptoms or risks identified at this time. Initial Sepsis Screen: Does the patient meet any 2 criteria? No. Patient's initial sepsis screen is negative. Does the patient have a suspected source of infection? No. Patient's initial sepsis screen is negative. Risk Assessment: Do you want to hurt yourself or someone else? Patient reports no desire to harm self or others. Onset of symptoms was June 24, 2023. 18:53 Acuity: CHEIKH 3 ko1 Triage Assessment: 18:51 General: Appears in no apparent distress. uncomfortable, Behavior is calm, cooperative, ko1 appropriate for age. Pain: Complains of pain in right ribs. Historical: - Allergies: 18:51 No Known Allergies; ko1 - Immunization history:: Adult Immunizations unknown. - Social history:: Smoking status: Patient denies any tobacco usage or history of. - Family history:: not pertinent. Screenin:31 [facility] ED Fall Risk Assessment (Adult) History of falling in the last 3 months, lg3 including since admission Yes- single mechanical fall (1 pt). Abuse screen: Denies threats or abuse. Denies injuries from another. Nutritional screening: No deficits noted. Tuberculosis screening: No symptoms or risk factors identified. Assessment: 20:31 General: Appears in no apparent distress. uncomfortable, Behavior is calm, cooperative. lg3 Pain: Complains of pain in bilateral knee, left rib area. Neuro: No deficits noted. Rodriguez Agitation-Sedation Scale (RASS): 0 - Alert and Calm Level of Consciousness is awake, alert, obeys commands, Oriented to person, place, time, situation, Reports weakness. Cardiovascular: No deficits noted. Denies chest pain, shortness of breath, Capillary refill < 3 seconds Clubbing of nail beds is absent JVD is absent Patient's skin is warm and dry. Respiratory: No deficits noted. Reports cough that is Airway is patent Respiratory effort is even, unlabored, Respiratory pattern is regular, symmetrical. GI: Abdomen is round distended, noted to have ascites, Reports missed last weeks paracentesis visit. : No deficits noted. No signs and/or symptoms were reported regarding the genitourinary system. EENT: No deficits noted. No signs and/or symptoms were reported regarding the EENT system. Derm: Skin is intact, is fragile, is thin, has skin tears on bilateral elbows. Musculoskeletal: Circulation, motion, and sensation intact. Range of motion: intact in all extremities, Reports pain in right knee and left knee. 21:20 Reassessment: Patient appears in no apparent distress at this time. No changes from lg3 previously documented assessment. Patient and/or family updated on plan of care and expected duration. Pain level reassessed. Patient is alert, oriented x 3, equal unlabored respirations, skin warm/dry/pink. 06/25 00:39 General: Pt refusing transfer. Will transfuse 1 unit PRBC and discharge per Dr. vicente Weber . Vital Signs: 06/24 18:51 BP 141 / 54; Pulse 67; Resp 18; Temp 98; Pulse Ox 100% on R/A; ko1 18:53 Pain 7/10; ko1 20:31 BP 128 / 45; Pulse 63; Resp 17 S; Pulse Ox 100% on R/A; lg3 21:20 BP 122 / 48; Pulse 67; Resp 16 S; Pulse Ox 100% on R/A; lg3 22:22 BP 102 / 42; Pulse 65; Resp 19 S; Pulse Ox 97% on R/A; kd3 23:16 BP 150 / 93; Pulse 70; Resp 19; Pulse Ox 100% on R/A; kd3 08/10 00:34 BP 133 / 51; Pulse 69; Resp 16; Pulse Ox 100% on R/A; kd3 01:42 BP 131 / 48; Pulse 69; Resp 19 S; Pulse Ox 100% on R/A; kd3 03:49 BP 133 / 43; Pulse 70; Resp 19; Pulse Ox 98% on R/A; kd3 18:53 Pain Scale: Adult ko1 ED Course: 06/24 18:41 Patient arrived in ED. bd 18:51 Marcella Braun MD is Attending Physician. cp3 18:53 Arm band placed on right wrist. Patient placed in an exam room, on a stretcher, on ko1 pulse oximetry, Patient notified of wait time. 18:54 Triage completed. ko1 19:39 Janiya Copeland, RN is Primary Nurse. kd3 20:30 Inserted saline lock: 20 gauge in right antecubital area, using aseptic technique. lg3 Blood collected. 20:31 Patient has correct armband on for positive identification. Placed in gown. Bed in low lg3 position. Call light in reach. Side rails up X2. Client placed on continuous cardiac and pulse oximetry monitoring. NIBP monitoring applied. bus monitor on. Door closed. Noise minimized. Warm blanket given. Family accompanied patient. 20:31 Patient maintains SpO2 saturation greater than 95% on room air. lg3 20:34 Troponin High Sensitivity Sent. lg3 20:34 Hepatic Function Sent. lg3 20:34 Basic Metabolic Panel Sent. lg3 20:34 CBC w/o diff Sent. lg3 20:38 CT Head Brain wo Cont In Process Unspecified. EDMS 20:38 Chest Abd Pelvis Wo Con In Process Unspecified. EDMS 20:47 Knee Left 2 View XRAY In Process Unspecified. EDMS 20:47 Knee Right 2 View XRAY In Process Unspecified. EDMS 21:17 Attending Physician role handed off by Marcella Braun MD eliazar 21:17 Denny Weber MD is Attending Physician. eliazar 21:17 Ru Nguyen MD is Hospitalizing Provider. eliazar 21:31 PT-INR Sent. lg3 21:31 AMMONIA Sent. lg3 23:01 Initiated transfer with Urban Ramirez. rv1 23:18 Urban Ramirez declined due to capacity. rv1 23:19 Initiated transfer with Luly at [facility]. rv1 23:26 ABO/RH typing Sent. kd3 23:26 Antibody Screen Sent. kd3 23:26 SARS RAPID Sent. kd3 23:55 Assisted with bedpan. Cleaned of incontinence. Linen changed. kd3 23:55 Urinalysis W/Microscopic Sent. kd3 06/25 00:10 Pt accepted to [facility] by Dr. Caballero to Rm 701. rv1 00:39 Pt has declined transfer to [facility], requesting to go home. Provider rv1 notified, transfer cancelled. 01:42 Provided Education on: Blood Transfusion. kd3 04:03 No provider procedures requiring assistance completed. IV discontinued, intact, kd3 bleeding controlled, No redness/swelling at site. Pressure dressing applied. Administered Medications: 00:03 Drug: Pantoprazole IVP 40 mg Route: IVP; Site: right antecubital; kd3 01:42 Follow up: Response: No adverse reaction kd3 Medication: 06/24 22:22 VIS not applicable for this client. kd3 Outcome: 21:18 Decision to Hospitalize by Provider. eliazar 23:13 ER care complete, transfer ordered by MD. eliazar 06/25 00:38 Discharge ordered by MD. eliazar 04:03 Discharged to home ambulatory, with family. kd3 04:03 Condition: stable 04:03 Discharge instructions given to patient, family, Instructed on discharge instructions, follow up and referral plans. Demonstrated understanding of instructions, follow-up care. 04:03 Patient left the ED. kd3 Signatures: Dispatcher [employer] EDMS Maria Esther Nova Corey, MD MD cha Pinckney, Cwanza, MD MD cp3 Lynn Mohan RN RN [email or web address] Janiya Copeland RN RN kd3 Miracle Childs RN RN Anabella Graham rv1
--- NOTE | 2023-06-24 21:21 | RAD REPORT ---
EXAM DESCRIPTION: RAD - Knee Right 2 View - 06/24/2023 8:45 pm CLINICAL HISTORY: PAIN COMPARISON: No comparisons FINDINGS/IMPRESSION: No acute fracture. No malalignment. Medial and lateral compartment narrowing th at is difficult assessed due to the positioning. Patellar enthesophytes. No knee effusion.
--- NOTE | 2023-06-24 21:22 | RAD REPORT ---
EXAM DESCRIPTION: RAD - Knee Left 2 View - 06/24/2023 8:45 pm CLINICAL HISTORY: PAIN COMPARISON: No comparisons FINDINGS/IMPRESSION: No acute fracture. No malalignment. Medial and lateral compartment narrowing wh ich is difficult to assess due to positioning. Patellar enthesophyte. No knee effusion.
[2023-06-24 22:22] LABS: Protime INR 1.38
[2023-06-25] MEDS ORDERED: PANTOPRAZOLE 40 MG INJ ONE (00:08)
[2023-06-25 00:27] LABS: SARS-CoV-2 Antigen Rapid Res Negative (Negative)
[2023-06-25 00:32] LABS: Renal Epithelial <5 /HPF (None Seen); Specific Gravity 1.013 (1.005-1.030); Urine Bacteria None Seen /HPF (<20); Urine Bilirubin NEGATIVE (Negative); Urine Blood Negative (Negative); Urine Clarity Turbid (Clear); Urine Color Light-Yellow (Yellow); Urine Glucose NEGATIVE (Negative); Urine Mucus Slight /HPF (None Seen); Urine Protein NEGATIVE (Negative); Urine RBC None Seen /HPF (None Seen); Urine Urobilinogen Normal (Normal); Urine WBC Clump Rare /HPF (None Seen)
[2023-06-25] MEDS ORDERED: NA CHLORIDE 0.9% 250 ML ONE (01:35)
[2023-06-25 04:17] VITALS: TEMP 98
[2023-06-25 04:34] VITALS: BP 133/43; O2SAT 98
--- NOTE | 2023-06-28 15:38 | EKG ---
Test Date: 2023-06-24 Test Time: 20:28:35 Administrative Nursing Supervisor: SRIDHAR MEASUREMENT RESULTS: Intervals: Rate: 63 SD: 150 QRSD: 82 QT: 444 QTc: 454 [place]: P: 68 SD: 150 QRS: 41 T: 59 INTERPRETIVE STATEMENTS: Normal sinus rhythm Normal ECG Compared to ECG 05/15/2023 13:06:04 First degree AV block no longer present Myocardial infarct finding no longer present Electronically Signed On 06-28-23 15:33:25 CDT by Stan Cai
== END 2023-06-25 04:03 | disposition home or self-care (01) ==
LOC: ER 18:38
PROC: 30233N1 Transfusion of Nonautologous Red Blood Cells into Peripheral Vein, Percutaneous Approach (ICD-10-PCS; principal; 2023-06-25)
DX: D64.9 Anemia, unspecified (principal); S20.212A Contusion of left front wall of thorax, initial encounter; S20.222A Contusion of left back wall of thorax, initial encounter; R18.8 Other ascites; N18.9 Chronic kidney disease, unspecified; K75.81 Nonalcoholic steatohepatitis (NASH); K74.69 Other cirrhosis of liver; W18.30XA Fall on same level, unspecified, initial encounter; Z20.822 Contact with and (suspected) exposure to COVID-19
CPT/HCPCS: 93005; 87088; 81001; 87086; 80048; 36415; 82140; 86900; 86850; 85610; 86901; 80076; 86920 ×2; 85027; 84484; 70450; 71250; 74176; 73560 ×2; 96374; 99285; 87811; 36430; P9016; J7050

== ENCOUNTER 2023-06-26 07:45 | Day surgery (SDC) | payer OTHER, BC ==
[2023-06-26 08:45] LABS: Platelets 66 thou/uL (152-406)
[2023-06-26 08:51] LABS: Protime INR 1.32
[2023-06-26 10:04] VITALS: BMI 32.4
--- NOTE | 2023-06-26 10:55 | RAD REPORT ---
EXAM DESCRIPTION: US - Paracentesis Proc Guidance - 06/26/2023 10:48 am CLINICAL HISTORY: ASCITES Ascites COMPARISON: Paracentesis Proc Guidance dated 06/12/2023 FINDINGS: Informed consent was obtained and time-out was performed. Patient's abdomen was prepped and draped in the usual sterile fashion. 1% lidocaine was used for loca l anesthetic purposes. A small skin incision was made. A paracentesis catheter was guided into the peroneal cavity under son ographic guidance. A small amount of fluid was sent for requested lab studies. A large volume paracentesis was performed . The patient tolerated the procedure well. Patient was administered IV albumin per protocol following the procedure. IMPRESSION: Successful ultrasound-guided paracentesis.
[2023-06-26] MEDS ORDERED: ALBUMIN HUMAN 25% 200 ML IV ONE (11:04)
[2023-06-26 12:16] VITALS: BP 132/41; TEMP 97; O2SAT 100
[2023-06-26 16:32] LABS: Appearance VERY TURBID (CLEAR); Body Fluid Source PERITONEAL; Body Fluid WBC 68 /mm^3; Color of fluid Red (COLORLESS)
== END 2023-06-26 13:15 | disposition home or self-care (01) ==
LOC: DS 07:45
PROVIDERS: ATTEND Legal Medicine
PROC: 0W9G3ZZ Drainage of Peritoneal Cavity, Percutaneous Approach (ICD-10-PCS; principal; 2023-06-26)
DX: R18.8 Other ascites (principal)
CPT/HCPCS: 87070; 36415; 89050; 85049; 84157; 85610; 85730; 96365; 49083; P9047

== ENCOUNTER 2023-07-03 07:54 | Day surgery (SDC) | payer OTHER, BC ==
[2023-07-03] MEDS ORDERED: ALBUMIN HUMAN 25% 300 ML IV ONE (10:30)
--- NOTE | 2023-07-03 10:33 | RAD REPORT ---
EXAM DESCRIPTION: US - Paracentesis Proc Guidance - 07/03/2023 10:20 am CLINICAL HISTORY: ASCITES Ascites COMPARISON: Paracentesis Proc Guidance dated 06/26/2023; Paracentesis Proc Guidance dated 04/03/2023 FINDINGS: Informed consent was obtained and time-out was performed. Patient's abdomen was prepped and draped in the usual sterile fashion. 1% lidocaine was used for loca l anesthetic purposes. A small skin incision was made. A paracentesis catheter was guided into the peroneal cavity under son ographic guidance. A small amount of fluid was sent for requested lab studies. A large volume paracentesis was performed . The patient tolerated the procedure well. Patient was administered IV albumin per protocol following the procedure. IMPRESSION: Successful ultrasound-guided paracentesis.
[2023-07-03 11:01] VITALS: TEMP 97.2
[2023-07-03 11:05] VITALS: BMI 32.4
[2023-07-03 14:18] LABS: Body Fluid Source PERITONEAL
[2023-07-03 14:19] LABS: Appearance TURBID (CLEAR)
[2023-07-03 14:20] LABS: Body Fluid WBC 59 /mm^3
[2023-07-03 14:39] VITALS: BP 129/52; O2SAT 96
[2023-07-03 14:44] LABS: Color of fluid Orange (COLORLESS)
== END 2023-07-03 12:40 | disposition home or self-care (01) ==
LOC: DS 07:54
PROVIDERS: ATTEND Legal Medicine
DX: R18.8 Other ascites (principal)
CPT/HCPCS: 36415; 49083; 84157; 87070; 89050; 96365; P9047

== ENCOUNTER 2023-07-10 08:03 | Day surgery (SDC) | payer OTHER, BC ==
[2023-07-10 09:42] VITALS: O2SAT 100; BMI 31.9
--- NOTE | 2023-07-10 09:47 | RAD REPORT ---
EXAM DESCRIPTION: US - Paracentesis Proc Guidance - 07/10/2023 8:55 am CLINICAL HISTORY: ASCITES Ascites COMPARISON: Paracentesis Proc Guidance dated 07/03/2023 FINDINGS: Informed consent was obtained and time-out was performed. Patient's abdomen was prepped and draped in the usual sterile fashion. 1% lidocaine was used for loca l anesthetic purposes. A small skin incision was made. A paracentesis catheter was guided into the peroneal cavity under son ographic guidance. A small amount of fluid was sent for requested lab studies. A large volume paracentesis was performed . The patient tolerated the procedure well. Patient was administered IV albumin per protocol following the procedure. IMPRESSION: Successful ultrasound-guided paracentesis.
[2023-07-10] MEDS ORDERED: ALBUMIN HUMAN 25% 300 ML IV ONE (10:09)
[2023-07-10 11:27] VITALS: BP 134/47; TEMP 97.4
[2023-07-10 13:50] LABS: Body Fluid Source PERITONEAL; Color of fluid Colorless (COLORLESS)
[2023-07-10 13:51] LABS: Appearance CLEAR (CLEAR); Body Fluid WBC 64 /mm^3
== END 2023-07-10 11:55 | disposition home or self-care (01) ==
LOC: DS 08:03
PROVIDERS: ATTEND Legal Medicine
DX: R18.8 Other ascites (principal)
CPT/HCPCS: 87070; 36415; 89050; 84157; 96365; 49083; 96366; P9047

== ENCOUNTER 2023-07-17 07:58 | Day surgery (SDC) | payer OTHER, BC ==
[2023-07-17 10:13] VITALS: BMI 32.4
[2023-07-17] MEDS ORDERED: ALBUMIN HUMAN 25% 300 ML IV ONE (10:45)
--- NOTE | 2023-07-17 13:00 | RAD REPORT ---
EXAM DESCRIPTION: US - Paracentesis Proc Guidance - 07/17/2023 9:18 am CLINICAL HISTORY: ASCITES Ascites COMPARISON: Paracentesis Proc Guidance dated 07/10/2023 FINDINGS: Informed consent was obtained and time-out was performed. Patient's abdomen was prepped and draped in the usual sterile fashion. 1% lidocaine was used for loca l anesthetic purposes. A small skin incision was made. A paracentesis catheter was guided into the peroneal cavity under son ographic guidance. A small amount of fluid was sent for requested lab studies. A large volume paracentesis was performed , a total of 6 liters of ascitic fluid were obtained. The patient tolerated the procedure well. Patient was administered IV albumin per protocol following the procedure. IMPRESSION: Successful ultrasound-guided paracentesis.
[2023-07-17 13:51] VITALS: BP 128/43; TEMP 98; O2SAT 98
[2023-07-17 13:51] LABS: Body Fluid WBC 52 /mm^3
[2023-07-17 14:05] LABS: Body Fluid Source PERITONEAL
[2023-07-17 14:06] LABS: Appearance CLEAR (CLEAR); Color of fluid Yellow (COLORLESS)
== END 2023-07-17 13:30 | disposition home or self-care (01) ==
LOC: DS 07:58
PROVIDERS: ATTEND Legal Medicine
DX: R18.8 Other ascites (principal)
CPT/HCPCS: 87070; 36415; 89050; 84157; 96365; 49083; P9047

== ENCOUNTER 2023-07-31 07:16 | Day surgery (SDC) | payer OTHER, BC ==
[2023-07-31 08:13] LABS: Protime INR 1.25
[2023-07-31 08:15] LABS: Hematocrit 20.7 % (36.0-45.0); MPV 9.2 fL (7.6-11.3); Platelets 79 thou/uL (152-406)
[2023-07-31 08:20] VITALS: O2SAT 100; BMI 30.7
[2023-07-31] MEDS ORDERED: ALBUMIN HUMAN 25% 300 ML IV ONE (10:06)
[2023-07-31] MEDS ORDERED: NA CHLORIDE 0.9% 250 ML ONE (10:14)
[2023-07-31 10:31] LABS: Body Fluid Source PERITONEAL; Color of fluid Yellow (COLORLESS)
[2023-07-31 10:32] LABS: Appearance SLT. TURBID (CLEAR); Body Fluid WBC 78 /mm^3
--- NOTE | 2023-07-31 11:40 | RAD REPORT ---
EXAM DESCRIPTION: US - Paracentesis Proc Guidance - 07/31/2023 8:57 am CLINICAL HISTORY: ASCITES Ascites COMPARISON: Paracentesis Proc Guidance dated 07/24/2023 FINDINGS: Informed consent was obtained and time-out was performed. Patient's abdomen was prepped and draped in the usual sterile fashion. 1% lidocaine was used for loca l anesthetic purposes. A small skin incision was made. A paracentesis catheter was guided into the peroneal cavity under son ographic guidance. A large volume paracentesis was performed. The patient tolerated the procedure well. Patient was administered IV albumin per protocol following the procedure. IMPRESSION: Successful ultrasound-guided therapeutic paracentesis.
[2023-07-31 15:49] VITALS: BP 132/44; TEMP 98.2
== END 2023-07-31 15:30 | disposition home or self-care (01) ==
LOC: DS 07:16
PROVIDERS: ATTEND Legal Medicine
DX: R18.8 Other ascites (principal); D64.9 Anemia, unspecified
CPT/HCPCS: 87070; 36415; 86900; 89050; 86850; 85049; 84157; 85610; 86901; 85730; 86920 ×2; 85018; 85014; 36430; 96365; 49083; P9047; P9016 ×2; J7050

== ENCOUNTER → 2023-08-07 | Day surgery (SDC) | payer OTHER, BC ==
[~2023-08-07] MED LIST changes: +ALBUMIN HUMAN 25% 50 ML IV ONE
[2023-08-07 09:00] VITALS: BMI 32.4
--- NOTE | 2023-08-07 10:41 | RAD REPORT ---
EXAM DESCRIPTION: US - Paracentesis Proc Guidance - 08/07/2023 10:23 am CLINICAL HISTORY: [facility]ITES [facility] COMPARISON: Paracentesis Proc Guidance dated 07/31/2023 FINDINGS: Informed consent was obtained and time-out was performed. Patient's abdomen was prepped and draped in the usual sterile fashion. 1% lidocaine was used for loca l anesthetic purposes. A small skin incision was made. A paracentesis catheter was guided into the peroneal cavity under son ographic guidance. A small amount of fluid was sent for requested lab studies. A large volume paracentesis was performed . The patient tolerated the procedure well. Patient was administered IV albumin per protocol following the procedure. IMPRESSION: Successful ultrasound-guided paracentesis.
[2023-08-07 14:17] VITALS: BP 130/43; TEMP 98; O2SAT 98
[2023-08-07 14:38] LABS: Appearance CLEAR (CLEAR); Body Fluid Source PERITONEAL; Body Fluid WBC 8 /mm^3; Color of fluid Yellow (COLORLESS)
== END ==
LOC: DS 08:00
PROVIDERS: ATTEND Legal Medicine
DX: R18.8 Other ascites (principal)
CPT/HCPCS: 87070; 36415; 89050; 84157; 96365; 49083; P9047 ×2

== ENCOUNTER 2023-08-21 07:29 | Day surgery (SDC) | payer OTHER, BC ==
[2023-08-21 09:04] VITALS: BMI 30.1
[2023-08-21] MEDS ORDERED: ALBUMIN HUMAN 25% 200 ML IV ONE (10:09)
[2023-08-21] MEDS ORDERED: ALBUMIN HUMAN 25% 50 ML IV ONE (10:09)
--- NOTE | 2023-08-21 13:44 | RAD REPORT ---
EXAM DESCRIPTION: US - Paracentesis Proc Guidance - 08/21/2023 9:39 am CLINICAL HISTORY: ASCITES Ascites COMPARISON: Paracentesis Proc Guidance dated 08/14/2023 FINDINGS: Informed consent was obtained and time-out was performed. Patient's abdomen was prepped and draped in the usual sterile fashion. 1% lidocaine was used for loca l anesthetic purposes. A small skin incision was made. A paracentesis catheter was guided into the peroneal cavity under son ographic guidance. A small amount of fluid was sent for requested lab studies. A large volume paracentesis was performed , with a total of 5 liters drained. The patient tolerated the procedure well. Patient was administered IV albumin per protocol following the procedure. IMPRESSION: Successful ultrasound-guided diagnostic and therapeutic paracentesis.
[2023-08-21 14:08] VITALS: BP 126/35; TEMP 97.6; O2SAT 99
[2023-08-21 15:47] LABS: Body Fluid WBC 87 /mm^3
[2023-08-21 17:04] LABS: Appearance CLEAR (CLEAR); Body Fluid Source PERITONEAL; Color of fluid Yellow (COLORLESS)
== END 2023-08-21 12:30 | disposition home or self-care (01) ==
LOC: DS 07:29
PROVIDERS: ATTEND Legal Medicine
DX: R18.8 Other ascites (principal)
CPT/HCPCS: 87070; 36415; 86900; 89050; 86850; 84157; 86901; 85018; 96365; 49083; P9047 ×2

== ENCOUNTER 2023-08-28 08:38 | Day surgery (SDC) | payer OTHER, BC ==
[2023-08-28 09:20] VITALS: O2SAT 100; BMI 29.7
--- NOTE | 2023-08-28 10:07 | RAD REPORT ---
EXAM DESCRIPTION: US - Paracentesis Proc Guidance - 08/28/2023 9:53 am CLINICAL HISTORY: ASCITES Ascites COMPARISON: Paracentesis Proc Guidance dated 08/21/2023 FINDINGS: Informed consent was obtained and time-out was performed. Patient's abdomen was prepped and draped in the usual sterile fashion. 1% lidocaine was used for loca l anesthetic purposes. A small skin incision was made. A paracentesis catheter was guided into the peroneal cavity under son ographic guidance. A small amount of fluid was sent for requested lab studies. A large volume paracentesis was performed . The patient tolerated the procedure well. Patient was administered IV albumin per protocol following the procedure. IMPRESSION: Successful ultrasound-guided paracentesis.
[2023-08-28 10:59] VITALS: BP 133/37; TEMP 97.3
[2023-08-28 12:25] LABS: Appearance CLEAR (CLEAR); Body Fluid Source PERITONEAL; Body Fluid WBC 73 /mm^3; Color of fluid Yellow (COLORLESS)
== END 2023-08-28 11:50 | disposition home or self-care (01) ==
LOC: DS 08:38
PROVIDERS: ATTEND Legal Medicine
PROC: 0W9G3ZX Drainage of Peritoneal Cavity, Percutaneous Approach, Diagnostic (ICD-10-PCS; principal; 2023-08-28)
DX: R18.8 Other ascites (principal)
CPT/HCPCS: 36415; 49083; 84157; 87070; 89050; 96365

== ENCOUNTER 2023-08-29 18:46 | Inpatient (IN) | payer OTHER, BC ==
--- OUTSIDE RECORDS SUMMARY | 2023-08-29 19:11 | XMS REPORT | Continuity of Care Document ---
:1950 Author Organization [facility] t Address [address] [facility] [address] [place] [address] Care Team Providers Name Role Phone Asked, No Pcp Primary Care Physician Unavailable Jacek Ledesma Attending Clinician Unavailable INGRID CABALLERO Attending Clinician Unavailable [place] DOVER, Nabeel Attending Clinician Sharron Abdul MD, I. Attending Clinician Jerry MARINA, Rufino Attending Clinician Unavailable Ingrid Caballero MD Attending Clinician Praveen Talavera MD Attending Clinician Nisreen Murphy MA Attending Clinician Unavailable Stephan Powell Attending Clinician Unavailable VIVIAN RAI Attending Clinician Unavailable Kevin DOVER, Marah Segura Attending Clinician Harrison Gallego MD Attending Clinician [phone] Cecelia DOVER, Vivian Patten Attending Clinician Karan Lopes Attending Clinician Wilmer Warner Attending Clinician Mini Fernandes MD Attending Clinician CRISTOFER SMILEY Attending Clinician Unavailable Vanessa Bryant [...] Unavailable Catracho Thornton MD Attending Clinician Po, [facility] Lab Main Attending Clinician Unavailable Dez Abrams MD Attending Clinician 1, [facility] Infusion Chair Attending Clinician Unavailable 1, [facility] Infusion Nurse Attending Clinician Unavailable Doctor Unassigned, [place] Attending Clinician Unavailable 2, [facility] Lab Attending Clinician Unavailable MAVIS HERNANDEZ Attending Clinician Unavailable Mavis Hernandez NP Attending Clinician Katlin Pinedo RN Attending Clinician Unavailable Devin MARINA, Jade Gutierrez Attending Clinician Hudson Tello Attending Clinician Fausto Zuñiga MD Attending Clinician FAUSTO ZUÑIGA Attending Clinician Unavailable MANISH ESPINOSA Attending Clinician Unavailable INGRID CABALLERO Admitting Clinician Unavailable HARRISON GALLEGO Admitting Clinician Unavailable MARZENA Admitting Clinician Unavailable AKASH LI Admitting Clinician Unavailable MD BRITTNI LINK Admitting Clinician Unavailable MD CRISTOFER SMILEY Admitting Clinician Unavailable CATRACHO THORNTON Admitting Clinician Unavailable AMBER NUNEZ Admitting Clinician Unavailable Fausto Zuñiga MD Admitting Clinician FAUSTO ZUÑIGA Admitting Clinician Unavailable KARAN TORO Admitting Clinician Unavailable Payers Payer Name Policy Type Policy Number Effective Date Expiration Date Tee herron MEDICARE A B [id number] 2015 00:00:00 BCBS FED [id number] 2003 00:00:00 Blue Cross Blue C1 [id number] 2003 [facility] [employer] [facility] [place] 00:00:00 - [facility] MEDICARE MB [id number] 2015 [facility] NOVITAS 00:00:00 - [facility] MEDICARE MB [id number] 2015 [facility] NOVIT[employer] 00:00:00 - [facility] Blue Cross Blue C1 [id number] 2003 [facility] [employer] [place] 00:00:00 - [facility] MEDICARE MB [id number] 2015 [facility] NOVITAS 00:00:00 - [facility] Blue Cross Blue C1 [id number] 2003 [facility] [employer] [place] 00:00:00 - [facility] Blue Cross Blue C1 [id number] 2003 [facility] [employer] [place] 00:00:00 - [facility] MEDICARE MB [id number] 2015 [facility] NOVITAS 00:00:00 - [facility] MEDICARE MB [id number] 2015 [facility] NOVITAS 00:00:00 - [facility] Blue Cross Blue C1 [id number] 2003 [facility] [employer] [place] 00:00:00 - [facility] MEDICARE PART A [id number] 2015 \\T\\ B 00:00:00 BCBS FED SELECT [id number] 2003 00:00:00 Problems Condition Condition Condition Status Onset Resolution Last Treating Co mments Source Name Details Category Date Date Treatment Clinician Date GI bleed GI bleed Disease [facility] Age-relate Age-relate Disease Active M ethodi [...] 2020-11 Overview: Method i transplant transplant 11-20 [facility] candidate candidate 00:00: g of this H ospita 00 note l might be different from the original. Added automatic ally from request for surgery [id number] Abnormal Abnormal Disease Active Metho di liver [...] Hypertensi Disease Active U nivers ve ve 07 [place] emergency emergency [place] [...] rs bursitis bursitis 04-24 ity of 00:00: [place] [facility] Encounter Encounter Disease Active Overview: Univers for for 04-24 Formattin ity of screening screening 00:00: [place] of [place] for 00 note Medical osteoporos osteoporos might be Branch is is different from the original. 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 St (disorder) [facility] [id number] GERD Problem Common without Spirit esophagiti - CHI s [facility] Ascites Other Problem Common ascites Spirit - CH[facility] [id number] LEE Problem Common (nonalcoho Spirit lic - [facility]) [facility] [id number] Essential Problem Comm on (primary) Spirit hypertensi - CHI on [facility] [id number] Mixed Problem Common hyperlipid Spirit emia - CH[facility] [id number] Gastric Problem Common polyp Spirit - [facility] [id number] Portal Problem Common hypertensi Spirit on - [facility] [id number] Solitary Problem Comm on lung Spirit nodule - [facility] [id number] Psoriatic Problem Com mon arthritis Spirit [facility] [id number] Chest Problem Common congestion [facility] [id number] Other Problem Common obesity Spirit due to - CHI excess [facility] [id number] Cerebral Problem Commo n atheroscle Spirit rosis [facility] [id number] Non-season Problem Com mon al Spirit allergic - [facility], [facility] [id number] Thrombocyt Problem Co mmon openia [facility] Oesophagea Secondary Problem Co mmon l varices esophageal Spi rit without varices - [facility] bleeding without bleeding [facility] [id number] Nasal Problem Common congestion [facility] [id number] Cough Problem Common Spirit [facility] [id number] Upper Problem Common respirator Spirit y tract - CHI infection, [facility] [id number] Body mass Problem Com mon index [facility] [BMI] - [facility] 34.0-34.9, [facility] Allergies, Adverse Reactions, Alerts Allergy Allergy Status Severity Reaction(s) Onset Inactive Treating Comm ents Source Name Type Date Date Clinician No Known DA Active [facility] 02[facility]15 [facility] 00:00: [address] No Known DA Active U [facility] Allergie 02-15 [facility] 00:00: [address] NO KNOWN Drug Active Univers ALLERGIE Class ity of S [facility] NO KNOWN Allergy Active [facility] ALLERGIE S Family History Family Member Diagnosis Comments Start Date Stop Date Source Natural brother Diabetes [facility] Maternal grandmother Diabetes [facility] Natural mother Diabetes [facility] Natural sister Diabetes [facility] Social History Social Habit Start Date Stop Date Quantity Comments Source Gender identity [facility] History of Tobacco [facility] - Use [facility] Exposure to Not sure University of SARS-CoV-2 (event) [facility] Sexual orientation Method ist Hospital History [facility] Alcohol Binge Medical [facility]la [facility] Std Drinks Medica [facility] Tobacco use and 2023-06-15 2023-06-15 Smokeless [facility] exposure 00:00:00 00:00:00 tobacco non-user Hospital History of Social 2023-06-15 2023-06-[address] function 00:00:00 00:00:00 Hospital Alcohol intake 2023-05-18 2023-05-18 Current PRISCILA De La Cruz es 00:00:00 00:00:00 non-drinker of Medical Ce nter alcohol (finding) History SDOH 2019-09-14 2019-09-14 1 PRISCILA Bailey Alcohol Frequency 00:00:00 00:00:00 Medical Center Sex Assigned At [birth year] PRISCILA [place] 00:00:00 00:00:00 Medical Center Smoking Status Start Date Stop Date Source Never smoked tobacco [facility] Medications Ordered Filled Start Stop Current Ordering Indication Dosage Frequency Signature Comments Components Source Medication Medication Date Date Medication? Clinician (SIG) Name Name FERROUS 2022- No 65mg Q.5D Take 65 mg Met hodi SULFATE 06-[address] ORAL 14:27: 00:00 (two) Hospita 06 :00 times a l day. FERROUS 2022-0 2022- No 65mg Q.5D Take 65 mg Met hodi SULFATE 06-[address] ORAL 14:27: 00:00 (two) Hospita 06 :00 times a l day. eplerenone 2022-0 2022- No 25mg QD Take 25 mg Methodi (INSPRA) 25 06-[address] MG tablet 14:27: 00:00 daily. Hospi ta 03 :00 l eplerenone 2022-0 2022- No 25mg QD Take 25 mg Methodi (INSPRA) 25 06-[address] MG tablet 14:27: 00:00 daily. Hospi ta 03 :00 l aspirin 2022-0 2022- No 81mg QD Take 81 mg Met hodi (ECOTRIN) 06-[address] 81 MG 14:26: 00:00 daily. Hospita enteric 59 :00 l coated tablet aspirin 2022-0 3- No 81mg QD Take 81 mg Met hodi (ECOTRIN) 06-[address] 81 MG 14:26: 00:00 daily. Hospita enteric 59 :00 l coated tablet metoprolol 2023-0 Yes 100mg Q.5D Take 1 Meth kiran tartrate 7-[address] (LOPRESSOR) 13:44: (100 mg Hos john 100 mg 29 total) by l tablet mouth 2 (two) times a day. lactulose 2023-0 Yes [id number] Take by Methodi 10 gram/15 7-[id number] mL (15 mL) 13:44: 3D (three) Hosp tracey solution 29 times a l day. riFAXimin 2023-0 Yes 550mg Q.5D Take 1 Metho di (XIFAXAN) 7-[address] 550 mg 13:44: (550 mg Hospita tablet 29 total) by l mouth 2 (two) times a day. FUROSEMIDE 2023-0 Yes 40mg Q.5D Take 40 mg M ethodi ORAL 7-[address] 13:44: (two) Hospita 29 times a l day. omeprazole 2023-0 Yes 40mg QD Take 1 Metho di (PriLOSEC) 7-[address] 40 MG 13:44: (40 mg Hospita capsule 29 total) by l mouth daily. atorvastati 2023-0 Yes 10mg QD Take 1 Meth kiran n (LIPITOR) 7-31 tablet (10 st 10 mg 13:44: mg total) Hospita tablet 29 by mouth l daily. levocetiriz 2023-0 Yes 5mg QD Take 5 mg M ethodi ine 7-[address] dihydrochlo 13:44: daily. Hosp tracey ride (XYZAL 29 l ORAL) albuterol 3-0 Yes 2{puff} Q6H Inhale 2 M ethodi (PROAIR 7-[address] HFA) 90 13:44: every 6 Hospita mcg/actuati 29 (six) l on inhaler hours as needed for wheezing. amLODIPine 2023-0 Yes 5mg QD Take 1 Metho di (NORVASC) 5 7-31 tablet (5 st mg tablet 13:44: mg total) Hos john 29 by mouth l daily. metoprolol 2023-0 Yes 100mg Q.5D Take 1 Meth kiran tartrate 7-[address] (LOPRESSOR) 13:44: (100 mg Hos john 100 mg 29 total) by l tablet mouth 2 (two) times a day. lactulose 2023-0 Yes [id number] Take by Methodi 10 gram/15 7-[id number] mL (15 mL) 13:44: 3D (three) Hosp tracey solution 29 times a l day. riFAXimin 2023-0 Yes 550mg Q.5D Take 1 Metho di (XIFAXAN) 7-[address] 550 mg 13:44: (550 mg Hospita tablet 29 total) by l mouth 2 (two) times a day. FUROSEMIDE 2023-0 Yes 40mg Q.5D Take 40 mg M ethodi ORAL 7-[address] 13:44: (two) Hospita 29 times a l day. omeprazole 2023-0 Yes 40mg QD Take 1 Metho di (PriLOSEC) 7-[address] 40 MG 13:44: (40 mg Hospita capsule 29 total) by l mouth daily. atorvastati 2023-0 Yes 10mg QD Take 1 Meth kiran n (LIPITOR) 7-31 tablet (10 st 10 mg 13:44: mg total) Hospita tablet 29 by mouth l daily. levocetiriz 2023-0 Yes 5mg QD Take 5 mg M ethodi ine 7-[address] dihydrochlo 13:44: daily. Hosp tracey ride (XYZAL 29 l ORAL) albuterol 3-0 Yes 2{puff} Q6H Inhale 2 M ethodi (PROAIR 7-[address] HFA) 90 13:44: every 6 Hospita mcg/actuati 29 (six) l on inhaler hours as needed for wheezing. amLODIPine 2023-0 Yes 5mg QD Take 1 Metho di (NORVASC) 5 7-31 tablet (5 st mg tablet 13:44: mg total) Hos john 29 by mouth l daily. lactulose 2023-0 Yes 15mL QD Take 15 [facility] (CHRONULAC) 7-04 mLs by [facility] 10 gram/15 11:38: mouth Medica l mL (15 mL) 03 nightly. Cente r solution rifAXIMin 2023-0 Yes 550mg QD Take 1 [facility] t 550 mg Tab 7-04 tablet [facility] 11:38: (550 mg Medical 03 total) by Center mouth daily. atorvastati 2023-0 Yes 10mg QD Take [address] n (LIPITOR) 7-04 tablet (10 Shira kes 10 MG 11:38: mg total) Medical tablet 03 by mouth Center daily. lactulose 2022-0 Yes 15mL QD Take 15 CHI S [...] 03 by mouth Center daily. furosemide 2022-0 2022- No 40mg QD Take [address] (LASIX) 40 7-04 07-03 tablet (40 Shira kes MG tablet 11:38: 00:00 mg total) Me dical 03 :00 by mouth Center daily. furosemide 2022-0 2022- No 40mg QD Take [address] (LASIX) 40 7-04 07-03 tablet (40 Shira kes MG tablet 11:38: 00:00 mg total) Me dical 03 :00 by mouth Center daily. SITagliptin 0 Yes 1{tbl} QD Take [address] -metFORMIN 7-03 tablet by Luke s (JANUMET) 11:38: mouth Medical 50-1,000 mg 23 daily. Center per tablet montelukast 0 Yes 10mg QD Take [address] (SINGULAIR) 7-03 tablet (10 Shira kes 10 mg 11:38: mg total) Medical tablet 23 by mouth Center nightly. metoprolol 0 Yes 100mg Q.5D Take [address] (LOPRESSOR) 7-03 mg by [facility] 100 MG 11:38: mouth 2 Medical tablet 23 (two) Center times daily. amLODIPine 0 Yes 5mg QD Take [address] (NORVASC) 5 7-03 by mouth Luke s MG tablet 11:38: daily. Medica l 23 Center omeprazole 0 Yes 40mg QD Take [address] (PRILOSEC) 7-03 by mouth [facility] 40 MG 11:38: daily. Medical capsule 23 Center brimonidine Yes 1[drp] Q.5D Place [address] (ALPHAGAN) 7-03 drop into Luke s 0.15 % 11:38: both eyes Medica l ophthalmic 23 2 (two) Center solution times daily. insulin Yes 30U QD Inject 30 CHI S t degludec 7-03 Units [facility] 100 unit/mL 11:38: subcutaneo Medical (3 mL) InPn 23 usly Center daily. latanoprost Yes 1[drp] QD Place [address] (XALATAN) 7-03 drop into [facility] 0.005 % 11:38: both eyes Medic al ophthalmic 23 nightly. Cente r solution SITagliptin Yes 1{tbl} QD Take [address] -metFORMIN 7-03 tablet by Luke s (JANUMET) 11:38: mouth Medical 50-1,000 mg 23 daily. Center per tablet montelukast Yes 10mg QD Take [address] (SINGULAIR) 7-03 tablet (10 Shira kes 10 mg 11:38: mg total) Medical tablet 23 by mouth Center nightly. metoprolol 0 Yes 100mg Q.5D Take [address] (LOPRESSOR) 7-03 mg by [facility] 100 MG 11:38: mouth 2 Medical tablet 23 (two) Center times daily. amLODIPine 0 Yes 5mg QD Take [address] (NORVASC) 5 7-03 by mouth Luke s MG tablet 11:38: daily. Medica l 23 Center omeprazole 0 Yes 40mg QD Take [address] (PRILOSEC) 7-03 by mouth [facility] 40 MG 11:38: daily. Medical capsule 23 Center brimonidine Yes 1[drp] Q.5D Place [address] (ALPHAGAN) 7-03 drop into Luke s 0.15 % 11:38: both eyes Medica l ophthalmic 23 2 (two) Center solution times daily. insulin 0 Yes 30U QD Inject 30 CHI S t degludec 7-03 Units [facility] 100 unit/mL 11:38: subcutaneo Medical (3 mL) InPn 23 usly Center daily. latanoprost Yes 1[drp] QD Place [address] (XALATAN) 05-18 drop into [facility] 0.005 % 11:38: both eyes Medic al ophthalmic 23 nightly. Cente r solution lisinopril 2022- No 20mg QD Take [address] (PRINIVIL,Z 05-18- tablet (20 L ukes ESTRIL) 20 08:53: 00:00 mg total) M edical MG tablet 06 :00 by mouth Center daily. hydroCHLORO 2022-2022- No 12.5mg QD Take [address] thiazide 05-18 capsule [facility] (MICROZIDE) 08:53: 00:00 (12.5 mg M edical 12.5 mg 06 :00 total) by Center capsule mouth daily. lisinopril 2022-2022- No 20mg QD Take [address] (PRINIVIL,Z 05-18 tablet (20 L ukes ESTRIL) 20 08:53: 00:00 mg total) M edical MG tablet 06 :00 by mouth Center daily. hydroCHLORO 2022-2022- No 12.5mg QD Take [address] thiazide 05-18 capsule [facility] (MICROZIDE) 08:53: 00:00 (12.5 mg M edical 12.5 mg 06 :00 total) by Center capsule mouth daily. pantoprazol 2022-2022- No 40mg QD Take [address] e -01 21- tablet (40 [facility] (PROTONIX) 00:00: 23:59 mg total) M edical 40 MG 00 :00 by mouth Center tablet daily for 30 days. pantoprazol 2022-0 2022- No 40mg QD Take [address] e -01 21- tablet (40 [facility] (PROTONIX) 00:00: 23:59 mg total) M edical 40 MG 00 :00 by mouth Center tablet daily for 30 days. sucralfate 2022-2022- No 1g QD Take [address] (CARAFATE) 05-18 07-10 tablet (1 Zara es 1 gram 00:00: 23:59 g total) Medica l tablet 00 :00 by mouth Center daily for 7 days. sucralfate 3-0 3- No 1g QD Take [address] [...] by Center mouth daily for 2 days. cefdinir 2022-0 2022- No 300mg QD [...] 500-125 MG 00:00: 00:00 00 :00 metoprolol 2-0 Yes 100mg Q.5D Take 100 Me thodi tartrate 3-[address] (LOPRESSOR) 09:22: mouth 2 Hos john 100 mg 19 (two) l tablet times a day. lactulose 2-0 Yes [id number] Take by Methodi 10 gram/15 3-[id number] mL (15 mL) 09:22: [...] Hospita 19 times a l day. eplerenone 2022-0 Yes 25mg QD Take 25 mg M [...] tablet times a day. lactulose 2021-0 Yes [id number] Take by Methodi 10 gram/15 3-[id number] mL (15 mL) 09:22: 3D (three) Hosp tracey solution 19 times a l day. riFAXimin 2021-0 Yes 550mg Q.5D Take 550 Met hodi (XIFAXAN) 3-[address] 550 mg 09:22: mouth 2 Hospita tablet 19 (two) l times a day. FUROSEMIDE 0 Yes 40mg Q.5D Take 40 mg M ethodi ORAL 3-[address] 09:22: (two) Hospita 19 times a l day. eplerenone 0 Yes 25mg QD Take 25 mg M [...] 09:22: daily. Hospita tablet 19 l FERROUS 0 Yes 65mg Q.5D Take 65 mg Meth kiran SULFATE 3-[address] ORAL 09:22: (two) Hospita 19 times a l day. aspirin 0 Yes 81mg QD Take 81 mg Meth kiran (ECOTRIN) 3-[address] 81 MG 09:22: daily. Hospita enteric 19 l coated tablet levocetiriz Yes 5mg QD Take 5 mg M ethodi ine 3-[address] dihydrochlo 09:22: daily. Hosp tracey ride (XYZAL 19 l ORAL) albuterol Yes 2{puff} Q6H Inhale 2 M ethodi [...] 00:00: 1.25 00 MG/3ML albumin 2020- No [id number] 50g Univ ers (ALBUMINAR 05-27 ity of 25%) 25 % 14:30: 02:29 [place] injection 00 :00 Medical 50 g Branch albumin 2020- No [id number] 50g Univ ers (ALBUMINAR 05-27 ity of 25%) 25 % 14:30: 14:50 [place] injection 00 :00 Medical 50 g Branch albumin 2020- No [id number] 50g 50 g, IV Univers (ALBUMINAR 05-27 Infusion, ity of 25%) 25 % 14:30: 14:50 ONCE, 1 [place] injection [place] dose, Mon Medic al 50 g 05/27/21 at Branch 0930, 200 mL
Gabrielle cation: LARGE VOLUME PARACENTES IS IN CIRRHOSIS (>5L) albumin 2020- No [id number] 37.5g Uni vers (ALBUMINAR 05-02 ity of 25%) 25 % 15:11: 15:22 [place] injection 00 :00 Medical 37.5 g Branch albumin 2020- No [id number] 37.5g 37.5 g, IV Univers (ALBUMINAR 05-02 Infusion, ity of 25%) 25 % 15:11: 15:22 [place]CE, 1 [place] injection 00 :[place] dose, Kiersten Medic al 37.5 g 05/02/21 at Branch 1015, 150 mL
Gabrielle cation: LARGE VOLUME PARACENTES IS IN CIRRHOSIS (>5L) albumin 2020- No [id number] 50g Univ ers (ALBUMINAR 03-28 ity of 25%) 25 % 15:51: 16:03 [place] injection 00 :00 Medical 50 g Branch albumin 2020- No [id number] 50g 50 g, IV Univers (ALBUMINAR 03-28 Infusion, ity of 25%) 25 % 15:51: 16:03 [place]CE, [place] injection 00 :[place] dose, Kiersten Medic al 50 g 03/28/21 at Branch 1100, 200 mL
Gabrielle cation: LARGE VOLUME PARACENTES IS IN CIRRHOSIS (>5L)
C omments: Ascites removal albumin 2020- No [id number] 12.5g Univ ers (ALBUMINAR 01-29 ity of 25%) 25 % 17:15: 17:24 [place] injection 00 :00 Medical 12.5 g Branch albumin 2020- No [id number] 12.5g 12.5 g, IV Univers (ALBUMINAR 01-29 [...] PRN, [place] injection 03 Starting Medica l [facility] 11/19/20 Branch at 1331, Until Discontinu ed albumin 2019-11- No IV Univers (ALBUMINAR 12-23 Infusion, ity of 25%) 25 % 19:56: 20:19 PRN, [place] injection 00 :00 Starting Medica l [facility] 10/22/20 at 1356, Until Discontinu ed lidocaine 2019-11- No PRN, Univers 1% (PF) 12-23 Starting ity of (XYLOCAINE) 19:54: 19:54 Mon [place] injection 00 :00 10/22/20 at [facility] janett 1354, Branch Until Discontinu ed, Routine hydralAZINE 2019- No 10mg 10 mg, Uni vers (APRESOLINE 02-24 Intravenou i ty of ) injection 13:00: 12:40 s, ONCE, 1 [place] 10 mg 00 :00 dose, Sat Medical 02/25/20 at Branch 0800, Routine metFORMIN 2020-0 Yes [id number] 500mg Take 1 Univers 500 mg 4-11 tablet by ity of tablet 00:00: mouth [place] ([facility]) Medical times [place] daily with meals. metFORMIN 2020-0 Yes [id number] 500mg Take 1 Univers 500 mg 4-11 tablet by ity of tablet 00:00: mouth [place] (two) [facility] times [place] daily with meals. metFORMIN 2020-0 Yes [id number] 500mg Take 1 Univers 500 mg 4-11 tablet by ity of tablet 00:00: mouth [place] ([facility]) [facility] times [place] daily with meals. metFORMIN 2020-0 Yes [id number] 500mg Take 1 Univers 500 mg 4-11 tablet by ity of tablet 00:00: mouth [place] ([facility]) Medical times [place] daily with meals. metFORMIN 2020-0 Yes [id number] 500mg Take 1 Univers 500 mg 4-11 tablet by ity of tablet 00:00: mouth [place] (two) [facility] times [place] daily with meals. metFORMIN 2020-0 Yes [id number] 500mg Take 1 Univers 500 mg 4-11 tablet by ity of tablet 00:00: mouth (two) Medical times Branch daily with meals. metFORMIN 2020-0 Yes [id number] 500mg Take 1 Univers 500 mg 4-11 tablet by ity of tablet 00:00: mouth (two) Medical times Branch daily with meals. metFORMIN 2020-0 Yes [id number] 500mg Take 1 Univers 500 mg 4-11 tablet by ity of tablet 00:00: mouth (two) Medical times Branch daily with meals. metFORMIN 2020-0 Yes [id number] 500mg Take 1 Univers 500 mg 4-11 tablet by ity of tablet 00:00: mouth (two) Medical times Branch daily with meals. metFORMIN 2020-0 Yes [id number] 500mg Take 1 Univers 500 mg 4-11 tablet by ity of tablet 00:00: mouth (two) Medical times Branch daily with meals. metFORMIN 2020-0 Yes [id number] 500mg Take 1 Univers 500 mg 4-11 tablet by ity of tablet 00:00: mouth (two) Medical times Branch daily with meals. metFORMIN 2020-0 Yes [id number] 500mg Take 1 Univers 500 mg 4-11 tablet by ity of tablet 00:00: mouth (two) Medical times Branch daily with meals. metFORMIN 2020-0 Yes [id number] 500mg Take 1 Univers 500 mg 4-11 tablet by ity of tablet 00:00: mouth (two) Medical times Branch daily with meals. metFORMIN 2020-0 Yes [id number] 500mg Take 1 Univers 500 mg 4-11 tablet by ity of tablet 00:00: mouth (two) Medical times Branch daily with meals. metFORMIN 2020-0 Yes [id number] 500mg Take 1 Univers 500 mg 4-11 tablet by ity of tablet 00:00: mouth (two) Medical times Branch daily with meals. metFORMIN 2020-0 Yes [id number] 500mg Take 1 Univers 500 mg 4-11 tablet by ity of tablet 00:00: mouth (two) Medical times Branch daily with meals. metFORMIN 2020-0 Yes [id number] 500mg Take 1 Univers 500 mg 4-11 tablet by ity of tablet 00:00: mouth (two) Medical times Branch daily with meals. metFORMIN 2020-0 Yes [id number] 500mg Take 1 Univers 500 mg 4-11 tablet by ity of tablet 00:00: mouth (two) Medical times Branch daily with meals. metFORMIN 2020-0 Yes [id number] 500mg Take 1 Univers 500 mg 4-11 tablet by ity of tablet 00:00: mouth (two) Medical times Branch daily with meals. metFORMIN 2020-0 Yes [id number] 500mg Take 1 [facility] 500 mg 4-11 tablet by ity of tablet 00:00: mouth (two) Medical times Branch daily with meals. metFORMIN 2020-0 Yes [id number] 500mg Take 1 [facility] 500 mg 4-11 tablet by ity of tablet 00:00: mouth (two) Medical times Branch daily with meals. metFORMIN 2020-0 Yes [id number] 500mg Take 1 [facility] 500 mg 4-11 tablet by ity of tablet 00:00: mouth (two) Medical times Branch daily with meals. metFORMIN 2020-0 Yes [id number] 500mg Take 1 [facility] 500 mg 4-11 tablet by ity of tablet 00:00: mouth () Medical times Branch daily with meals. metFORMIN 2020-0 Yes [id number] 500mg Take 1 [facility] 500 mg 4-11 tablet by ity of tablet 00:00: mouth (two) Medical times Branch daily with meals. metFORMIN 2020-0 Yes [id number] 500mg Take 1 [facility] 500 mg 4-11 tablet by ity of tablet 00:00: mouth (two) Medical times Branch daily with meals. metFORMIN 2020-0 Yes [id number] 500mg Take 1 [facility] 500 mg 4-11 tablet by ity of tablet 00:00: mouth (two) Medical times Branch daily with meals. metFORMIN 2020-0 Yes [id number] 500mg Take 1 [facility] 500 mg 4-11 tablet by ity of tablet 00:00: mouth (two) Medical times Branch daily with meals. cephALEXin 2020-0 2020- No [id number] 500mg Take 1 [facility] 500 mg 4-11 -19 capsule by ity of capsule 00:00: 04:59 mouth 2 [place] 00 :00 (two) Medical times Branch daily for 7 days. amLODIPine 2020-0 2020- No [id number] 10mg Take 1 [facility] 10 mg 4-09 -10 9104 tablet by ity of tablet 00:00: 04:59 mouth [place] 00 :00 daily for Medical 30 days. Branch amLODIPine 2020-0 2020- No [id number] 10mg Take 1 [facility] 10 mg 4- 9104 tablet by ity of tablet 00:00: 04:59 mouth [place] 00 :00 daily for Medical 30 days. Branch amLODIPine 2020-0 2020- No [id number] 10mg Take 1 [facility] 10 mg 4- 9104 tablet by ity of tablet 00:00: 04:59 mouth [place] 00 :00 daily for Medical 30 days. Branch amLODIPine 2020-0 2020- No [id number] 10mg Take 1 [facility] 10 mg 4- 9104 tablet by ity of tablet 00:00: 04:59 mouth [place] 00 :00 daily for Medical 30 days. Branch montelukast 2020-0 Yes 10mg Take 10 mg [facility] 10 mg 4-08 by mouth ity of tablet 16:30: daily. [place] [address] Medical Branch cetirizine 2020-0 Yes 10mg Take 10 mg U nivers (ZYRTEC) 10 4-08 by mouth ity of mg tablet 16:30: daily. [place] [address] Medical Branch albuterol-i 2020-0 Yes 1{puff} Inhale 1 [facility] pratropium 4-08 Puff as ity of 20-100 16:30: needed for [facility] Wheezing Medi janett on inhaler or Branch Shortness of Breath. spironolact 2020-0 Yes 25mg Take 25 mg [facility] one 25 mg 4-08 by mouth 2 ity of tablet 16:30: (two) [place] [address] times Medical daily. Branch gabapentin 2020-0 Yes 100mg Take 100 Un [place] 100 mg 4-08 mg by ity of capsule 16:30: mouth at [place] [address] bedtime. Medical Branch ferrous 2020-0 Yes 325mg Take 325 Unive rs sulfate 325 4-08 mg by ity of mg (65 mg 16:30: mouth 3 [place] iron) 32 (three) Medical tablet times [place] daily with meals. metoprolol 2020-0 Yes 100mg [...] by mouth ity of capsule 16:30: daily. [place] [address] Medical Branch DULoxetine 2020-0 Yes 30mg Take 30 mg U nivers 30 mg 4-08 by mouth ity of capsule 16:30: daily. [address] Branch hydroCHLORO 2020-0 Yes 12.5mg Take 12.5 [facility] thiazide 4-08 mg by ity of 12.5 mg 16:30: mouth [place] capsule 32 daily. Medical Branch montelukast 2020-0 Yes 10mg Take 10 mg [facility] 10 mg 4-08 by mouth ity of tablet 16:30: daily. [address] Branch cetirizine 2020-0 Yes 10mg Take 10 mg U nivers (ZYRTEC) 10 4-08 by mouth ity of mg tablet 16:30: daily. [place] [address] Medical Branch albuterol-i 2020-0 Yes 1{puff} Inhale 1 [facility] pratropium 4-08 Puff as ity of 20-100 16:30: needed for [place] mcg/actuati 32 Wheezing Medi janett on inhaler or Branch Shortness of Breath. spironolact 2020-0 Yes 25mg Take 25 mg [facility] one 25 mg 4-08 by mouth 2 ity of tablet 16:30: (two) [place] [address] times Medical daily. Branch gabapentin 2020-0 Yes 100mg Take 100 Un [place] 100 mg 4-08 mg by ity of capsule 16:30: mouth at [place] [address] bedtime. Medical Branch ferrous 2020-0 Yes 325mg Take 325 Unive rs sulfate 325 4-08 mg by ity of mg (65 mg 16:30: mouth 3 [place] iron) 32 (three) Medical tablet times [place] daily with meals. metoprolol 2020-0 Yes 100mg Take 100 Un [place] tartrate 4-08 mg by ity of (LOPRESSOR) 16:30: mouth 2 [place] 50 mg 32 (two) Medical tablet times [place] daily. fexofenadin 2020-0 Yes 180mg Take 180 [...] by mouth ity of capsule 16:30: daily. [address] DULoxetine 2020-0 Yes 30mg Take 30 mg U nivers 30 mg 4-08 by mouth ity of capsule 16:30: daily. [address] Branch hydroCHLORO 2020-0 Yes 12.5mg Take 12.5 [facility] thiazide 4-08 mg by ity of 12.5 mg 16:30: mouth [place] capsule 32 daily. Medical Branch montelukast 2020-0 Yes 10mg Take 10 mg [facility] 10 mg 4-08 by mouth ity of tablet 16:30: daily. [address] Branch cetirizine 2020-0 Yes 10mg Take 10 mg U nivers (ZYRTEC) 10 4-08 by mouth ity of mg tablet 16:30: daily. [place] [address] Medical Branch albuterol-i 2020-0 Yes 1{puff} Inhale [...] by ity of capsule 16:30: mouth at [place] [address] bedtime. Medical Branch ferrous 2020-0 Yes 325mg Take 325 Unive rs sulfate 325 4-08 mg by ity of mg (65 mg 16:30: mouth 3 [place] iron) 32 (three) Medical tablet times [place] daily with meals. metoprolol 2020-0 Yes 100mg Take 100 Un [place] tartrate 4-08 mg by ity of (LOPRESSOR) 16:30: mouth 2 [place] 50 mg 32 (two) Medical tablet times [place] daily. fexofenadin 2020-0 Yes 180mg Take 180 [...] by mouth ity of capsule 16:30: daily. [place] [address] Medical Branch DULoxetine 2020-0 Yes 30mg Take 30 mg U nivers 30 mg 4-08 by mouth ity of capsule 16:30: daily. [place] [address] Medical Branch hydroCHLORO 2020-0 Yes 12.5mg Take 12.5 [facility] thiazide 4-08 mg by ity of 12.5 mg 16:30: mouth [place] capsule 32 daily. Medical Branch montelukast 2020-0 Yes 10mg Take 10 mg [facility] 10 mg 4-08 by mouth ity of tablet 16:30: daily. [place] [address] Medical Branch cetirizine 2020-0 Yes 10mg Take 10 mg U nivers (ZYRTEC) 10 4-08 by mouth ity of mg tablet 16:30: daily. [place] [address] Medical Branch albuterol-i 2020-0 Yes 1{puff} Inhale 1 [facility] pratropium 4-08 Puff as ity of 20-100 16:30: needed for [facility] 32 Wheezing Medi janett on inhaler or Branch Shortness of Breath. spironolact 2020-0 Yes 25mg Take 25 mg [facility] one 25 mg 4-08 by mouth 2 ity of tablet 16:30: (two) [place] 32 times Medical daily. Branch gabapentin 2020-0 Yes 100mg Take 100 Un [place] 100 mg 4-08 mg by ity of capsule 16:30: mouth at [place] [address] bedtime. Medical Branch ferrous 2020-0 Yes 325mg Take 325 Unive rs sulfate 325 4-08 mg by ity of mg (65 mg 16:30: mouth 3 [place] iron) 32 (three) Medical tablet times [place] daily with meals. metoprolol 2020-0 Yes 100mg Take 100 Un [place] tartrate 4-08 mg by ity of (LOPRESSOR) 16:30: mouth 2 [place] 50 mg 32 (two) Medical tablet times [place] daily. fexofenadin 2020-0 Yes 180mg Take 180 [...] by mouth ity of capsule 16:30: daily. [place] [address] Medical Branch DULoxetine 2020-0 Yes 30mg Take 30 mg U nivers 30 mg 4-08 by mouth ity of capsule 16:30: daily. [place] [address] Medical Branch hydroCHLORO 2020-0 Yes 12.5mg Take 12.5 [facility] thiazide 4-08 mg by ity of 12.5 mg 16:30: mouth [place] capsule 32 daily. Medical Branch montelukast 2020-0 Yes 10mg Take 10 mg [facility] 10 mg 4-08 by mouth ity of tablet 16:30: daily. [place] [address] Medical Branch cetirizine 2020-0 Yes 10mg Take 10 mg U nivers (ZYRTEC) 10 4-08 by mouth ity of mg tablet 16:30: daily. [place] [address] Medical Branch albuterol-i 2020-0 Yes 1{puff} Inhale 1 [facility] pratropium 4-08 Puff as ity of 20-100 16:30: needed for [facility] 32 Wheezing Medi janett on inhaler or Branch Shortness of Breath. spironolact 2020-0 Yes 25mg Take 25 mg [facility] one 25 mg 4-08 by mouth 2 ity of tablet 16:30: (two) [place] 32 times Medical daily. Branch gabapentin 2020-0 Yes 100mg Take 100 Un [place] 100 mg 4-08 mg by ity of capsule 16:30: mouth at [place] [address] bedtime. Medical Branch ferrous 2020-0 Yes 325mg Take 325 Unive rs sulfate 325 4-08 mg by ity of mg (65 mg 16:30: mouth 3 [place] iron) 32 (three) Medical tablet times [place] daily with meals. metoprolol 2020-0 Yes 100mg Take 100 Un [place] tartrate 4-08 mg by ity of (LOPRESSOR) 16:30: mouth 2 [place] 50 mg 32 (two) Medical tablet times Branch daily. fexofenadin 2020-0 Yes 180mg Take 180 U nivers e (EIRKA) 4-08 mg by ity of 180 mg 16:30: mouth [place] tablet 32 daily. Medical Branch fluticasone 2020-0 Yes 2{spray Use 2 Un [place] (FLONASE) 4-08 } Sprays in ity o f 50 16:30: each [facility] 32 nostril Medic al on nasal daily. [...] by mouth ity of capsule 16:30: daily. [place] [address] Medical Branch DULoxetine 2020-0 Yes 30mg Take 30 mg U nivers 30 mg 4-08 by mouth ity of capsule 16:30: daily. [place] [address] Medical Branch hydroCHLORO 2020-0 Yes 12.5mg Take 12.5 [facility] thiazide 4-08 mg by ity of 12.5 mg 16:30: mouth [place] capsule 32 daily. Medical Branch montelukast 2020-0 Yes 10mg Take 10 mg [facility] 10 mg 4-08 by mouth ity of tablet 16:30: daily. [place] [address] Medical Branch cetirizine 2020-0 Yes 10mg Take 10 mg U nivers (ZYRTEC) 10 4-08 by mouth ity of mg tablet 16:30: daily. [place] [address] Medical Branch albuterol-i 2020-0 Yes 1{puff} Inhale 1 [facility] pratropium 4-08 Puff as ity of 20-100 16:30: needed for [facility] 32 Wheezing Medi janett on inhaler or Branch Shortness of Breath. spironolact 2020-0 Yes 25mg Take 25 mg [facility] one 25 mg 4-08 by mouth 2 ity of tablet 16:30: (two) [place] [address] times Medical daily. Branch gabapentin 2020-0 Yes 100mg Take 100 Un [place] 100 mg 4-08 mg by ity of capsule 16:30: mouth at [place] [address] bedtime. Medical Branch ferrous 2020-0 Yes 325mg Take 325 Unive rs sulfate 325 4-08 mg by ity of mg (65 mg 16:30: mouth 3 [place] iron) 32 (three) Medical tablet times [place] daily with meals. metoprolol 2020-0 Yes 100mg Take 100 Un [place] tartrate 4-08 mg by ity of (LOPRESSOR) 16:30: mouth 2 [place] 50 mg 32 (two) Medical tablet times [place] daily. fexofenadin 2020-0 Yes 180mg Take 180 [...] by mouth ity of capsule 16:30: daily. [place] [address] Medical Branch DULoxetine 2020-0 Yes 30mg Take 30 mg U nivers 30 mg 4-08 by mouth ity of capsule 16:30: daily. [address] Branch hydroCHLORO 2020-0 Yes 12.5mg Take 12.5 [facility] thiazide 4-08 mg by ity of 12.5 mg 16:30: mouth [place] capsule 32 daily. Medical Branch montelukast 2020-0 Yes 10mg Take 10 mg [facility] 10 mg 4-08 by mouth ity of tablet 16:30: daily. [address] Branch cetirizine 2019-0 Yes 10mg Take 10 mg U nivers (ZYRTEC) 10 4-08 by mouth ity of mg tablet 16:30: daily. [place] [address] Medical Branch albuterol-i 2020-0 Yes 1{puff} Inhale [...] by ity of capsule 16:30: mouth at [place] [address] bedtime. Medical Branch ferrous 2020-0 Yes 325mg Take 325 Unive rs sulfate 325 4-08 mg by ity of mg (65 mg 16:30: mouth 3 [place] iron) 32 (three) Medical tablet times [place] daily with meals. metoprolol 2020-0 Yes 100mg Take 100 Un [place] tartrate 4-08 mg by ity of (LOPRESSOR) 16:30: mouth 2 [place] 50 mg 32 (two) Medical tablet times [place] daily. fexofenadin 2020-0 Yes 180mg Take 180 [...] by mouth ity of capsule 16:30: daily. [place] [address] Medical Branch DULoxetine 2020-0 Yes 30mg Take 30 mg U nivers 30 mg 4-08 by mouth ity of capsule 16:30: daily. [place] [address] Medical Branch hydroCHLORO 2020-0 Yes 12.5mg Take 12.5 [facility] thiazide 4-08 mg by ity of 12.5 mg 16:30: mouth [place] capsule 32 daily. Medical Branch montelukast 2020-0 Yes 10mg Take 10 mg [facility] 10 mg 4-08 by mouth ity of tablet 16:30: daily. [place] [address] Medical Branch cetirizine 2020-0 Yes 10mg Take 10 mg U nivers (ZYRTEC) 10 4-08 by mouth ity of mg tablet 16:30: daily. [place] [address] Medical Branch albuterol-i 2020-0 Yes 1{puff} Inhale [...] by ity of capsule 16:30: mouth at [place] [address] bedtime. Medical Branch ferrous 2020-0 Yes 325mg Take 325 Unive rs sulfate 325 4-08 mg by ity of mg (65 mg 16:30: mouth 3 [place] iron) 32 (three) Medical tablet times [place] daily with meals. metoprolol 2020-0 Yes 100mg [...] by mouth ity of capsule 16:30: daily. [place] [address] Medical Branch DULoxetine 2020-0 Yes 30mg Take 30 mg U nivers 30 mg 4-08 by mouth ity of capsule 16:30: daily. [place] [address] Medical Branch hydroCHLORO 2020-0 Yes 12.5mg Take 12.5 [facility] thiazide 4-08 mg by ity of 12.5 mg 16:30: mouth [place] capsule 32 daily. Medical Branch montelukast 2020-0 Yes 10mg Take 10 mg [facility] 10 mg 4-08 by mouth ity of tablet 16:30: daily. [place] [address] Medical Branch cetirizine 2020-0 Yes 10mg Take 10 mg U nivers (ZYRTEC) 10 4-08 by mouth ity of mg tablet 16:30: daily. [place] [address] Medical Branch albuterol-i 2020-0 Yes 1{puff} Inhale 1 [facility] pratropium 4-08 Puff as ity of 20-100 16:30: needed for [facility]/[place] [address] Wheezing Medi janett on inhaler or Branch Shortness of Breath. spironolact 2020-0 Yes 25mg Take 25 mg [facility] one 25 mg 4-08 by mouth 2 ity of tablet 16:30: (two) [place] [address] times Medical daily. Branch gabapentin 2020-0 Yes 100mg Take 100 Un [place] 100 mg 4-08 mg by ity of capsule 16:30: mouth at [place] [address] bedtime. Medical Branch ferrous 2020-0 Yes 325mg Take 325 Unive rs sulfate 325 4-08 mg by ity of mg (65 mg 16:30: mouth 3 [place] iron) 32 (three) Medical tablet times [place] daily with meals. metoprolol 2020-0 Yes 100mg Take 100 Un [place] tartrate 4-08 mg by ity of (LOPRESSOR) 16:30: mouth 2 [place] 50 mg 32 (two) Medical tablet times [place] daily. fexofenadin 2020-0 Yes 180mg Take 180 U nivers e (ERIKA) 4-08 mg by ity of 180 mg 16:30: mouth [place] tablet 32 daily. Medical Branch fluticasone 2020-0 Yes 2{spray Use 2 Un [place] (FLONASE) 4-08 } Sprays in ity o f 50 16:30: each [facility] 32 nostril Medic al on nasal daily. [...] by mouth ity of capsule 16:30: daily. [place] [address] Medical Branch DULoxetine 2020-0 Yes 30mg Take 30 mg U nivers 30 mg 4-08 by mouth ity of capsule 16:30: daily. [place] [address] Medical Branch hydroCHLORO 2020-0 Yes 12.5mg Take 12.5 [facility] thiazide 4-08 mg by ity of 12.5 mg 16:30: mouth [place] capsule 32 daily. Medical Branch montelukast 2020-0 Yes 10mg Take 10 mg [facility] 10 mg 4-08 by mouth ity of tablet 16:30: daily. [place] [address] Medical Branch cetirizine 2020-0 Yes 10mg Take 10 mg U nivers (ZYRTEC) 10 4-08 by mouth ity of mg tablet 16:30: daily. [place] [address] Medical Branch albuterol-i 2020-0 Yes 1{puff} Inhale 1 [facility] pratropium 4-08 Puff as ity of 20-100 16:30: needed for [facility] 32 Wheezing Medi janett on inhaler or Branch Shortness of Breath. spironolact 2020-0 Yes 25mg Take 25 mg [facility] one 25 mg 4-08 by mouth 2 ity of tablet 16:30: (two) [place] [address] times Medical daily. Branch gabapentin 2020-0 Yes 100mg Take 100 Un [place] 100 mg 4-08 mg by ity of capsule 16:30: mouth at [place] [address] bedtime. Medical Branch ferrous 2020-0 Yes 325mg [...] by mouth ity of capsule 16:30: daily. [address] DULoxetine 2020-0 Yes 30mg Take 30 mg U nivers 30 mg 4-08 by mouth ity of capsule 16:30: daily. [address] Branch hydroCHLORO 2020-0 Yes 12.5mg Take 12.5 [facility] thiazide 4-08 mg by ity of 12.5 mg 16:30: mouth [place] capsule 32 daily. [facility] Branch montelukast 2020-0 Yes 10mg Take 10 mg [facility] 10 mg 4-08 by mouth ity of tablet 16:30: daily. [address] Branch cetirizine 2020-0 Yes 10mg Take 10 mg U nivers (ZYRTEC) 10 4-08 by mouth ity of mg tablet 16:30: daily. [address] Branch albuterol-i 2020-0 Yes 1{puff} Inhale [...] by ity of capsule 16:30: mouth at [place] [address] bedtime. Medical Branch ferrous 2020-0 Yes 325mg Take 325 Unive rs sulfate 325 4-08 mg by ity of mg (65 mg 16:30: mouth 3 [place] iron) 32 (three) Medical tablet times [place] daily with meals. metoprolol 2020-0 Yes 100mg Take 100 Un [place] tartrate 4-08 mg by ity of (LOPRESSOR) 16:30: mouth 2 [place] 50 mg 32 (two) Medical tablet times [place] daily. fexofenadin 2020-0 Yes 180mg Take 180 [...] by mouth ity of capsule 16:30: daily. [place] [address] Medical Branch DULoxetine 2020-0 Yes 30mg Take 30 mg U nivers 30 mg 4-08 by mouth ity of capsule 16:30: daily. [place] [address] Medical Branch hydroCHLORO 2020-0 Yes 12.5mg Take 12.5 [facility] thiazide 4-08 mg by ity of 12.5 mg 16:30: mouth [place] capsule 32 daily. Medical Branch montelukast 2020-0 Yes 10mg Take 10 mg [facility] 10 mg 4-08 by mouth ity of tablet 16:30: daily. [place] [address] Medical Branch cetirizine 2020-0 Yes 10mg Take 10 mg U nivers (ZYRTEC) 10 4-08 by mouth ity of mg tablet 16:30: daily. [place] [address] Medical Branch albuterol-i 2020-0 Yes 1{puff} Inhale [...] by ity of capsule 16:30: mouth at [place] [address] bedtime. Medical Branch ferrous 2020-0 Yes 325mg Take 325 Unive rs sulfate 325 4-08 mg by ity of mg (65 mg 16:30: mouth 3 [place] iron) 32 (three) Medical tablet times [place] daily with meals. metoprolol 2020-0 Yes 100mg Take 100 Un [place] tartrate 4-08 mg by ity of (LOPRESSOR) 16:30: mouth 2 [place] 50 mg 32 (two) Medical tablet times [place] daily. fexofenadin 2020-0 Yes 180mg Take 180 [...] by mouth ity of capsule 16:30: daily. [address] Branch DULoxetine 2020-0 Yes 30mg Take 30 mg U nivers 30 mg 4-08 by mouth ity of capsule 16:30: daily. [address] Branch hydroCHLORO 2020-0 Yes 12.5mg Take 12.5 [facility] thiazide 4-08 mg by ity of 12.5 mg 16:30: mouth [place] capsule 32 daily. Medical Branch montelukast 2020-0 Yes 10mg Take 10 mg [facility] 10 mg 4-08 by mouth ity of tablet 16:30: daily. [address] Branch cetirizine 2020-0 Yes 10mg Take 10 mg U nivers (ZYRTEC) 10 4-08 by mouth ity of mg tablet 16:30: daily. [address] Branch albuterol-i 2020-0 Yes 1{puff} Inhale [...] by ity of capsule 16:30: mouth at [place] [address] bedtime. Medical Branch ferrous 2020-0 Yes 325mg [...] by mouth ity of capsule 16:30: daily. [place] [address] Medical Branch DULoxetine 2020-0 Yes 30mg Take 30 mg U nivers 30 mg 4-08 by mouth ity of capsule 16:30: daily. [address] Branch hydroCHLORO 2020-0 Yes 12.5mg Take 12.5 [facility] thiazide 4-08 mg by ity of 12.5 mg 16:30: mouth [place] capsule 32 daily. Medical Branch montelukast 2020-0 Yes 10mg Take 10 mg [facility] 10 mg 4-08 by mouth ity of tablet 16:30: daily. [address] Branch cetirizine 2020-0 Yes 10mg Take 10 mg U nivers (ZYRTEC) 10 4-08 by mouth ity of mg tablet 16:30: daily. [place] [address] Medical Branch albuterol-i 2020-0 Yes 1{puff} Inhale 1 [facility] pratropium 4-08 Puff as ity of 20-100 16:30: [facility] Wheezing Medi janett on inhaler or Branch Shortness of Breath. spironolact 2020-0 Yes 25mg Take 25 mg [facility] one 25 mg 4-08 by mouth 2 ity of tablet 16:30: (two) [place] 32 times Medical daily. Branch gabapentin 2020-0 Yes 100mg Take 100 Un [place] 100 mg 4-08 mg by ity of capsule 16:30: mouth at [place] [address] bedtime. Medical Branch ferrous 2020-0 Yes 325mg [...] by mouth ity of capsule 16:30: daily. [address] Branch DULoxetine 2020-0 Yes 30mg Take 30 mg U nivers 30 mg 4-08 by mouth ity of capsule 16:30: daily. [address] Branch hydroCHLORO 2020-0 Yes 12.5mg Take 12.5 [facility] thiazide 4-08 mg by ity of 12.5 mg 16:30: mouth [place] capsule 32 daily. Medical Branch montelukast 2020-0 Yes 10mg Take 10 mg [facility] 10 mg 4-08 by mouth ity of tablet 16:30: daily. [address] Branch cetirizine 2020-0 Yes 10mg Take 10 mg U nivers (ZYRTEC) 10 4-08 by mouth ity of mg tablet 16:30: daily. [address] Branch albuterol-i 2020-0 Yes 1{puff} Inhale [...] by ity of capsule 16:30: mouth at [place] [address] bedtime. Medical Branch ferrous 2020-0 Yes 325mg Take 325 Unive rs sulfate 325 4-08 mg by ity of mg (65 mg 16:30: mouth 3 [place] iron) 32 (three) Medical tablet times [place] daily with meals. metoprolol 2020-0 Yes 100mg Take 100 Un [place] tartrate 4-08 mg by ity of (LOPRESSOR) 16:30: mouth 2 [place] 50 mg 32 (two) Medical tablet times [place] daily. fexofenadin 2020-0 Yes 180mg Take 180 [...] by mouth ity of capsule 16:30: daily. [place] [address] Medical Branch DULoxetine 2020-0 Yes 30mg Take 30 mg U nivers 30 mg 4-08 by mouth ity of capsule 16:30: daily. [place] [address] Medical Branch hydroCHLORO 2020-0 Yes 12.5mg Take 12.5 [facility] thiazide 4-08 mg by ity of 12.5 mg 16:30: mouth [place] capsule 32 daily. Medical Branch montelukast 2020-0 Yes 10mg Take 10 mg [facility] 10 mg 4-08 by mouth ity of tablet 16:30: daily. [place] [address] Medical Branch cetirizine 2020-0 Yes 10mg Take 10 mg U nivers (ZYRTEC) 10 4-08 by mouth ity of mg tablet 16:30: daily. [place] [address] Medical Branch albuterol-i 2020-0 Yes 1{puff} Inhale [...] by ity of capsule 16:30: mouth at [place] [address] bedtime. Medical Branch ferrous 2020-0 Yes 325mg Take 325 Unive rs sulfate 325 4-08 mg by ity of mg (65 mg 16:30: mouth 3 [place] iron) 32 (three) Medical tablet times [place] daily with meals. metoprolol 2020-0 Yes 100mg Take 100 Un [place] tartrate 4-08 mg by ity of (LOPRESSOR) 16:30: mouth 2 [place] 50 mg 32 (two) Medical tablet times [place] daily. fexofenadin 2020-0 Yes 180mg Take 180 [...] by mouth ity of capsule 16:30: daily. [place] [address] Medical Branch DULoxetine 2020-0 Yes 30mg Take 30 mg U nivers 30 mg 4-08 by mouth ity of capsule 16:30: daily. [place] [address] Medical Branch hydroCHLORO 2020-0 Yes 12.5mg Take 12.5 [facility] thiazide 4-08 mg by ity of 12.5 mg 16:30: mouth [place] capsule 32 daily. Medical Branch montelukast 2020-0 Yes 10mg Take 10 mg [facility] 10 mg 4-08 by mouth ity of tablet 16:30: daily. [place] [address] Medical Branch cetirizine 2020-0 Yes 10mg Take 10 mg U nivers (ZYRTEC) 10 4-08 by mouth ity of mg tablet 16:30: daily. [place] [address] Medical Branch albuterol-i 2020-0 Yes 1{puff} Inhale 1 [facility] pratropium 4-08 Puff as ity of 20-100 16:30: needed for [facility] 32 Wheezing Medi janett on inhaler or Branch Shortness of Breath. spironolact 2020-0 Yes 25mg Take 25 mg [facility] one 25 mg 4-08 by mouth 2 ity of tablet 16:30: (two) [place] 32 times Medical daily. Branch gabapentin 2020-0 Yes 100mg Take 100 Un [place] 100 mg 4-08 mg by ity of capsule 16:30: mouth at [place] [address] bedtime. Medical Branch ferrous 2020-0 Yes 325mg [...] by mouth ity of capsule 16:30: daily. [place] [address] Medical Branch DULoxetine 2020-0 Yes 30mg Take 30 mg U nivers 30 mg 4-08 by mouth ity of capsule 16:30: daily. [place] [address] Medical Branch hydroCHLORO 2020-0 Yes 12.5mg Take 12.5 [facility] thiazide 4-08 mg by ity of 12.5 mg 16:30: mouth [place] capsule 32 daily. Medical Branch montelukast 2020-0 Yes 10mg Take 10 mg [facility] 10 mg 4-08 by mouth ity of tablet 16:30: daily. [place] [address] Medical Branch cetirizine 2020-0 Yes 10mg Take 10 mg U nivers (ZYRTEC) 10 4-08 by mouth ity of mg tablet 16:30: daily. [place] [address] Medical Branch albuterol-i 2020-0 Yes 1{puff} Inhale 1 [facility] pratropium 4-08 Puff as ity of 20-100 16:30: [facility] for [facility] Wheezing Medi janett on inhaler or Branch Shortness of Breath. spironolact 2020-0 Yes 25mg Take 25 mg [facility] one 25 mg 4-08 by mouth 2 ity of tablet 16:30: (two) [place] [address] times Medical daily. Branch gabapentin 2020-0 Yes 100mg Take 100 Un [place] 100 mg 4-08 mg by ity of capsule 16:30: mouth at [place] [address] bedtime. Medical Branch ferrous 2020-0 Yes 325mg Take 325 Unive rs sulfate 325 4-08 mg by ity of mg (65 mg 16:30: mouth 3 [place] iron) 32 (three) Medical tablet times [place] daily with meals. metoprolol 2020-0 Yes 100mg Take 100 Un [place] tartrate 4-08 mg by ity of (LOPRESSOR) 16:30: mouth 2 [place] 50 mg 32 (two) Medical tablet times [place] daily. fexofenadin 2020-0 Yes 180mg Take 180 [...] by mouth ity of capsule 16:30: daily. [address] Branch DULoxetine 2020-0 Yes 30mg Take 30 mg U nivers 30 mg 4-08 by mouth ity of capsule 16:30: daily. [place] [address] Medical Branch hydroCHLORO 2020-0 Yes 12.5mg Take 12.5 [facility] thiazide 4-08 mg by ity of 12.5 mg 16:30: mouth [place] capsule 32 daily. Medical Branch montelukast 2020-0 Yes 10mg Take 10 mg Univers 10 mg 4-08 by mouth ity of tablet 16:30: daily. [address] Branch cetirizine 2020-0 Yes 10mg Take 10 mg U nivers (ZYRTEC) 10 4-08 by mouth ity of mg tablet 16:30: daily. [place] [address] Medical Branch albuterol-i 2020-0 Yes 1{puff} Inhale [...] by ity of capsule 16:30: mouth at [place] [address] bedtime. Medical Branch ferrous 2020-0 Yes 325mg Take 325 Unive rs sulfate 325 4-08 mg by ity of mg (65 mg 16:30: mouth 3 [place] iron) 32 (three) Medical tablet times [place] daily with meals. metoprolol 2020-0 Yes 100mg Take 100 Un aileen tartrate 4-08 mg by ity of (LOPRESSOR) 16:30: mouth 2 [place] 50 mg 32 (two) Medical tablet times [place] daily. fexofenadin 2020-0 Yes 180mg Take 180 [...] by mouth ity of capsule 16:30: daily. [address] Branch DULoxetine 2019-0 Yes 30mg Take 30 mg U nivers 30 mg 4-08 by mouth ity of capsule 16:30: daily. [address] Branch hydroCHLORO 2020-0 Yes 12.5mg Take 12.5 [facility] thiazide 4-08 mg by ity of 12.5 mg 16:30: mouth [place] capsule 32 daily. Medical Branch montelukast 2020-0 Yes 10mg Take 10 mg [facility] 10 mg 4-08 by mouth ity of tablet 16:30: daily. [address] Branch cetirizine 2020-0 Yes 10mg Take 10 mg U nivers (ZYRTEC) 10 4-08 by mouth ity of mg tablet 16:30: daily. [place] [address] Medical Branch albuterol-i 2019-0 Yes 1{puff} Inhale [...] by ity of capsule 16:30: mouth at [place] [address] bedtime. Medical Branch ferrous 2020-0 Yes 325mg Take 325 Unive rs sulfate 325 4-08 mg by ity of mg (65 mg 16:30: mouth 3 [place] iron) 32 (three) Medical tablet times Branch daily with meals. metoprolol 2020-0 Yes 100mg Take 100 Un aileen tartrate 4-08 mg by ity of (LOPRESSOR) 16:30: mouth 2 [place] 50 mg 32 (two) Medical tablet times [place] daily. fexofenadin 2020-0 Yes 180mg Take 180 [...] by mouth ity of capsule 16:30: daily. [place] [address] Medical Branch DULoxetine 2020-0 Yes 30mg Take 30 mg U nivers 30 mg 4-08 by mouth ity of capsule 16:30: daily. [place] [address] Medical Branch hydroCHLORO 2020-0 Yes 12.5mg Take 12.5 [facility] thiazide 4-08 mg by ity of 12.5 mg 16:30: mouth [place] capsule 32 daily. Medical Branch montelukast 2020-0 Yes 10mg Take 10 mg [facility] 10 mg 4-08 by mouth ity of tablet 16:30: daily. [place] [address] Medical Branch cetirizine 2020-0 Yes 10mg Take 10 mg U nivers (ZYRTEC) 10 4-08 by mouth ity of mg tablet 16:30: daily. [place] [address] Medical Branch albuterol-i 2020-0 Yes 1{puff} Inhale [...] by ity of capsule 16:30: mouth at [place] [address] bedtime. Medical Branch ferrous 2020-0 Yes 325mg Take 325 Unive rs sulfate 325 4-08 mg by ity of mg (65 mg 16:30: mouth 3 [place] iron) 32 (three) Medical tablet times [place] daily with meals. metoprolol 2020-0 Yes 100mg [...] by mouth ity of capsule 16:30: daily. [place] [address] Medical Branch DULoxetine 2020-0 Yes 30mg Take 30 mg U nivers 30 mg 4-08 by mouth ity of capsule 16:30: daily. [place] [address] Medical Branch hydroCHLORO 2020-0 Yes 12.5mg Take 12.5 [facility] thiazide 4-08 mg by ity of 12.5 mg 16:30: mouth [place] capsule 32 daily. Medical Branch montelukast 2020-0 Yes 10mg Take 10 mg [facility] 10 mg 4-08 by mouth ity of tablet 16:30: daily. [place] [address] Medical Branch cetirizine 2020-0 Yes 10mg Take 10 mg U nivers (ZYRTEC) 10 4-08 by mouth ity of mg tablet 16:30: daily. [place] [address] Medical Branch albuterol-i 2020-0 Yes 1{puff} Inhale 1 [facility] pratropium 4-08 Puff as ity of 20-100 16:30: needed for [facility]/actuati Wheezing Medi janett on inhaler or Branch Shortness of Breath. spironolact 2020-0 Yes 25mg Take 25 mg Univers one 25 mg 4-08 by mouth 2 ity of tablet 16:30: (two) [place] [address] times Medical daily. Branch gabapentin 2020-0 Yes 100mg Take 100 Un aileen 100 mg 4-08 mg by ity of capsule 16:30: mouth at [place] [address] bedtime. Medical Branch ferrous 2020-0 Yes 325mg [...] by mouth ity of capsule 16:30: daily. [place] [address] Medical Branch DULoxetine 2020-0 Yes 30mg Take 30 mg U nivers 30 mg 4-08 by mouth ity of capsule 16:30: daily. [place] [address] Medical Branch hydroCHLORO 2020-0 Yes 12.5mg Take 12.5 [facility] thiazide 4-08 mg by ity of 12.5 mg 16:30: mouth [place] capsule 32 daily. Medical Branch montelukast 2020-0 Yes 10mg Take 10 mg [facility] 10 mg 4-08 by mouth ity of tablet 16:30: daily. [place] [address] Medical Branch cetirizine 2020-0 Yes 10mg Take 10 mg U nivers (ZYRTEC) 10 4-08 by mouth ity of mg tablet 16:30: daily. [place] [address] Medical Branch albuterol-i 2020-0 Yes 1{puff} Inhale 1 [facility] pratropium 4-08 Puff as ity of 20-100 16:30: needed for [place] mcg/actuati 32 Wheezing Medi janett on inhaler or Branch Shortness of Breath. spironolact 2020-0 Yes 25mg Take 25 mg Univers one 25 mg 4-08 by mouth 2 ity of tablet 16:30: (two) [place] [address] times Medical daily. Branch gabapentin 2020-0 Yes 100mg Take 100 Un aileen 100 mg 4-08 mg by ity of capsule 16:30: mouth at [place] [address] bedtime. Medical Branch ferrous 2020-0 Yes 325mg Take 325 Unive rs sulfate 325 4-08 mg by ity of mg (65 mg 16:30: mouth 3 [place] iron) 32 (three) Medical tablet times [place] daily with meals. metoprolol 2020-0 Yes 100mg Take 100 Un aileen tartrate 4-08 mg by ity of (LOPRESSOR) 16:30: mouth 2 [place] as 50 mg 32 (two) Medical tablet times [place] daily. fexofenadin 2020-0 Yes 180mg Take 180 [...] by mouth ity of capsule 16:30: daily. [address] Branch DULoxetine 2020-0 Yes 30mg Take 30 mg U nivers 30 mg 4-08 by mouth ity of capsule 16:30: daily. [address] Branch hydroCHLORO 2020-0 Yes 12.5mg Take 12.5 [facility] thiazide 4-08 mg by ity of 12.5 mg 16:30: mouth [place] capsule 32 daily. Medical Branch montelukast 2020-0 Yes 10mg Take 10 mg [facility] 10 mg 4-08 by mouth ity of tablet 16:30: daily. [address] Branch cetirizine 2020-0 Yes 10mg Take 10 mg U nivers (ZYRTEC) 10 4-08 by mouth ity of mg tablet 16:30: daily. [place] [address] Medical Branch albuterol-i 2020-0 Yes 1{puff} Inhale [...] by ity of capsule 16:30: mouth at [place] [address] bedtime. Medical Branch ferrous 2020-0 Yes 325mg Take 325 Unive rs sulfate 325 4-08 mg by ity of mg (65 mg 16:30: mouth 3 [place] iron) 32 (three) Medical tablet times Branch daily with meals. metoprolol 2020-0 Yes 100mg Take 100 Un aileen tartrate 4-08 mg by ity of (LOPRESSOR) 16:30: mouth 2 [place] 50 mg 32 (two) Medical tablet times [place] daily. fexofenadin 2020-0 Yes 180mg Take 180 U nivers e (REIKA) 4-08 mg by ity of 180 mg [...] by mouth ity of capsule 16:30: daily. [place] [address] Medical Branch DULoxetine 2020-0 Yes 30mg Take 30 mg U nivers 30 mg 4-08 by mouth ity of capsule 16:30: daily. [place] [address] Medical Branch hydroCHLORO 2020-0 Yes 12.5mg Take 12.5 [facility] thiazide 4-08 mg by ity of 12.5 mg 16:30: mouth [place] capsule 32 daily. Medical Branch montelukast 2020-0 Yes 10mg Take 10 mg [facility] 10 mg 4-08 by mouth ity of tablet 16:30: daily. [place] [address] Medical Branch cetirizine 2020-0 Yes 10mg Take 10 mg U nivers (ZYRTEC) 10 4-08 by mouth ity of mg tablet 16:30: daily. [place] [address] Medical Branch albuterol-i 2020-0 Yes 1{puff} Inhale 1 [facility] pratropium 4-08 Puff as ity of 20-100 16:30: needed for [facility]/actuati 32 Wheezing Medi janett on inhaler or Branch Shortness of Breath. spironolact 2020-0 Yes 25mg Take 25 mg Univers one 25 mg 4-08 by mouth 2 ity of tablet 16:30: (two) [place] [address] times Medical daily. Branch gabapentin 2020-0 Yes 100mg Take 100 Un aileen 100 mg 4-08 mg by ity of capsule 16:30: mouth at [place] [address] bedtime. Medical Branch ferrous 2020-0 Yes 325mg Take 325 Unive rs sulfate 325 4-08 mg by ity of mg (65 mg 16:30: mouth 3 [place] iron) 32 (three) Medical tablet times [place] daily with meals. metoprolol 2020-0 Yes 100mg Take 100 Un aileen tartrate 4-08 mg by ity of (LOPRESSOR) 16:30: mouth 2 [place] 50 mg 32 (two) Medical tablet times [place] daily. fexofenadin 2020-0 Yes 180mg Take 180 [...] by mouth ity of capsule 16:30: daily. [place] [address] Medical Branch DULoxetine 2020-0 Yes 30mg Take 30 mg U nivers 30 mg 4-08 by mouth ity of capsule 16:30: daily. [place] [address] Medical Branch hydroCHLORO 2020-0 Yes 12.5mg Take 12.5 [facility] thiazide 4-08 mg by ity of 12.5 mg 16:30: mouth [place] capsule 32 daily. Medical Branch montelukast 2020-0 Yes 10mg Take 10 mg [facility] 10 mg 4-08 by mouth ity of tablet 16:30: daily. [address] Branch cetirizine 2020-0 Yes 10mg Take 10 mg U nivers (ZYRTEC) 10 4-08 by mouth ity of mg tablet 16:30: daily. [place] [address] Medical Branch albuterol-i 2020-0 Yes 1{puff} Inhale 1 [facility] pratropium 4-08 Puff as ity of 20-100 16:30: needed for [facility]/actuati Wheezing Medi janett on inhaler or Branch Shortness of Breath. spironolact 2020-0 Yes 25mg Take 25 mg [facility] one 25 mg 4-08 by mouth 2 ity of tablet 16:30: (two) [place] [address] times Medical daily. Branch gabapentin 2020-0 Yes 100mg Take 100 Un aileen 100 mg 4-08 mg by ity of capsule 16:30: mouth at [place] [address] bedtime. Medical Branch ferrous 2020-0 Yes 325mg [...] o f 150 mg/mL 16:30: the skin [facility] s [place] syringe 32 weekly. Medica l Branch omeprazole 2020-0 Yes 40mg Take 40 mg U nivers 40 mg 4-08 by mouth ity of capsule 16:30: daily. [place] [address] Medical Branch DULoxetine 2020-0 Yes 30mg Take 30 mg U nivers 30 mg 4-08 by mouth ity of capsule 16:30: daily. [place] [address] Medical Branch hydroCHLORO 2020-0 Yes 12.5mg Take 12.5 [facility] thiazide 4-08 mg by ity of 12.5 mg 16:30: mouth [place] capsule 32 daily. Medical Branch montelukast 2020-0 Yes 10mg Take 10 mg [facility] 10 mg 4-08 by mouth ity of tablet 16:30: daily. [place] [address] Medical Branch cetirizine 2020-0 Yes 10mg Take 10 mg U nivers (ZYRTEC) 10 4-08 by mouth ity of mg tablet 16:30: daily. [place] [address] Medical Branch albuterol-i 2020-0 Yes 1{puff} Inhale 1 [facility] pratropium 4-08 Puff as ity of 20-100 16:30: needed for [facility]/[place] [address] Wheezing Medi janett on inhaler or Branch Shortness of Breath. spironolact 2020-0 Yes 25mg Take 25 mg [facility] one 25 mg 4-08 by mouth 2 ity of tablet 16:30: (two) [place] [address] times Medical daily. Branch gabapentin 2020-0 Yes 100mg Take 100 Un aileen 100 mg 4-08 mg by ity of capsule 16:30: mouth at [place] [address] bedtime. Medical Branch ferrous 2020-0 Yes 325mg Take 325 Unive rs sulfate 325 4-08 mg by ity of mg (65 mg 16:30: mouth 3 [place] iron) (three) Medical tablet times [place] daily with meals. metoprolol 2020-0 Yes 100mg [...] by mouth ity of capsule 16:30: daily. [address] Branch DULoxetine 2019-0 Yes 30mg Take 30 mg U nivers 30 mg 4-08 by mouth ity of capsule 16:30: daily. [address] Branch hydroCHLORO 2020-0 Yes 12.5mg Take 12.5 [facility] thiazide 4-08 mg by ity of 12.5 mg 16:30: mouth [place] capsule 32 daily. [facility] Branch montelukast 2020-0 Yes 10mg Take 10 mg Univers 10 mg 4-08 by mouth ity of tablet 16:30: daily. [address] Branch cetirizine 2020-0 Yes 10mg Take 10 mg U nivers (ZYRTEC) 10 4-08 by mouth ity of mg tablet 16:30: daily. [address] Branch albuterol-i 2019-0 Yes 1{puff} Inhale [...] by ity of capsule 16:30: mouth at [place] [address] bedtime. Medical Branch ferrous 2020-0 Yes 325mg Take 325 Unive rs sulfate 325 4-08 mg by ity of mg (65 mg 16:30: mouth 3 [place] iron) 32 (three) Medical tablet times [place] daily with meals. metoprolol 2020-0 Yes 100mg Take 100 Un aile[place] tartrate 4-08 mg by ity of (LOPRESSOR) 16:30: mouth 2 [place] 50 mg 32 (two) Medical tablet times [place] daily. fexofenadin 2020-0 Yes 180mg Take 180 [...] by mouth ity of capsule 16:30: daily. [place] [address] Medical Branch DULoxetine 2020-0 Yes 30mg Take 30 mg U nivers 30 mg 4-08 by mouth ity of capsule 16:30: daily. [place] [address] Medical Branch hydroCHLORO 2020-0 Yes 12.5mg Take 12.5 [facility] thiazide 4-08 mg by ity of 12.5 mg 16:30: mouth [place] capsule 32 daily. Medical Branch montelukast 2020-0 Yes 10mg Take 10 mg Univers 10 mg 4-08 by mouth ity of tablet 16:30: daily. [place] [address] Medical Branch cetirizine 2020-0 Yes 10mg Take 10 mg U nivers (ZYRTEC) 10 4-08 by mouth ity of mg tablet 16:30: daily. [place] [address] Medical Branch albuterol-i 2020-0 Yes 1{puff} Inhale [...] by ity of capsule 16:30: mouth at [place] [address] bedtime. Medical Branch ferrous 2020-0 Yes 325mg Take 325 Unive rs sulfate 325 4-08 mg by ity of mg (65 mg 16:30: mouth 3 [place] iron) 32 (three) Medical tablet times [place] daily with meals. metoprolol 2020-0 Yes 100mg Take 100 Un aileen tartrate 4-08 mg by ity of (LOPRESSOR) 16:30: mouth 2 [place] 50 mg 32 (two) Medical tablet times [place] daily. fexofenadin 2020-0 Yes 180mg Take 180 [...] by mouth ity of capsule 16:30: daily. [place] [address] Medical Branch DULoxetine 2020-0 Yes 30mg Take 30 mg U nivers 30 mg 4-08 by mouth ity of capsule 16:30: daily. [place] [address] Medical Branch hydroCHLORO 2020-0 Yes 12.5mg Take 12.5 [facility] thiazide 4-08 mg by ity of 12.5 mg 16:30: mouth [place] capsule 32 daily. Medical Branch montelukast 2020-0 Yes 10mg Take 10 mg Univers 10 mg 4-08 by mouth ity of tablet 16:30: daily. [address] Branch cetirizine 2020-0 Yes 10mg Take 10 mg U nivers (ZYRTEC) 10 4-08 by mouth ity of mg tablet 16:30: daily. [address] Branch albuterol-i 2020-0 Yes 1{puff} Inhale [...] by ity of capsule 16:30: mouth at [place] [address] bedtime. Medical Branch ferrous 2020-0 Yes 325mg [...] by mouth ity of capsule 16:30: daily. [place] [address] Medical Branch DULoxetine 2019-0 Yes 30mg Take 30 mg U nivers 30 mg 4-08 by mouth ity of capsule 16:30: daily. [place] [address] Medical Branch hydroCHLORO 2020-0 Yes 12.5mg Take 12.5 [facility] thiazide 4-08 mg by ity of 12.5 mg 16:30: mouth [place] capsule 32 daily. Medical Branch flu vaccine 2019- No .5mL 0.5 mL, Un aileen 65 yrs and 02-21-08 Intramuscu it y of up (FLUZONE 15:45: 15:56 lar, ONCE, [place] HIGH-DOSE 00 :00 1 dose, Medical 02/22/20 Branch (PF)) at 1045, syringe 0.5 Routine mL metFORMIN 2019- 2020- No 1000mg Take 1,000 Univers (GLUCOPHAGE 02-21 04-08 mg by ity of ) 500 [...] Branch 1999, Until Discontinu ed, Routine lisinopril 2019-0 2020- No [id number] 20mg Take 1 Univers 20 mg 02-21 9104 tablet by ity of tablet 00:00: 04:59 mouth 2 [place] 00 :00 (two) Medical times [place] daily for 30 days. lactulose 2019-0 2020- No [id number] 30mL Take 30 mL Univers 10 gram/15 02-21 by mouth ity of mL solution 00:00: 04:59 daily for [place] 00 :00 30 days. Medical Branch lisinopril 2020-0 2020- No [id number] 20mg Take 1 Univers 20 mg 02-21 9104 tablet by ity of tablet 00:00: 04:59 mouth 2 [place] 00 :00 (two) Medical times [place] daily for 30 days. lactulose 2020-0 2020- No [id number] 30mL Take 30 mL Univers 10 gram/15 02-21 by mouth ity of mL solution 00:00: 04:59 daily for [place] 00 :00 30 days. Medical Branch lisinopril 2020-0 2020- No [id number] 20mg Take 1 Univers 20 mg 02-21- 9104 tablet by ity of tablet 00:00: 04:59 mouth 2 [place] 00 :00 (two) Medical times [place] daily for 30 days. lactulose 2019-0 2020- No [id number] 30mL Take 30 mL Univers 10 gram/15 02-21 by mouth ity of mL solution 00:00: 04:59 daily for [place] 00 :00 30 days. Medical Branch lisinopril 2019-0 2020- No [id number] 20mg Take 1 Univers 20 mg 02-21 9104 tablet by ity of tablet 00:00: 04:59 mouth 2 [place] 00 :00 (two) [facility] times [place] daily for 30 days. lactulose 2019-0 2020- No [id number] 30mL Take 30 mL Univers 10 gram/15 02-21 by mouth ity of mL solution 00:00: 04:59 daily for [place] 00 :00 30 days. Medical Branch acetaminoph 2019-0 Yes 500mg 500 mg, Un aileen en 02-20 Oral, ity of (TYLENOL) 21:33: Q6HPRN, [place] tablet 500 50 Starting Medic al mg [facility] 02/21/20 Branch at 1633, Until Discontinu ed, Routine, Pain (scale 1-3), Temp > 38.5 C omeprazole 2019-0 Yes 40mg 40 mg, Unive rs (PRILOSEC) 02-20 Oral, ity of capsule 40 14:00: DAILY, [place] mg 00 First dose Medical on [facility] 02/21/20 at 0900, Until Discontinu ed KCL 2019-0 Yes 20meq 20 mEq, Univers (KLOR-CON 02-20 Oral, ity of M20) tablet 14:00: DAILY, [place] 20 mEq 00 First dose Medical on [facility] 02/21/20 at 0900, Until Discontinu ed, Routine montelukast 2019-0 Yes 10mg 10 mg, Univ ers (SINGULAIR) 02-20 Oral, ity of tablet 10 14:00: DAILY, [place] mg 00 First dose Medical on [facility] 02/21/20 at 0900, Until Discontinu ed, Routine amLODIPine 2019-0 2020- No 5mg 5 mg, Unive rs (NORVASC) 02-20 04-08 Oral, ity of tablet 5 mg 14:00: 12:25 DAILY, [place] as 00 :55 First dose Medical on [facility] 02/21/20 at 0900, Until Discontinu ed, Routine lisinopril 2020-0 2020- No 20mg 20 mg, [facility] ers (PRINIVIL,Z 02-20 04-07 Oral, ity of ESTRIL) 14:00: 21:34 DAILY, [place] tablet 20 00 :24 First dose Medi janett mg on [facility] 02/21/20 at 0900, Until Discontinu ed, Routine codeine-gua 2020-0 Yes 5mL 5 mL, Unive rs ifenesin - Oral, ity of (ROBITUSSIN 03:29: Q6HPRN, [place] as AC) 10-100 29 Starting Medic al mg/5 mL [facility] 02/20/20 [place] solution 5 at 2229, mL Until Discontinu ed, Routine, Cough Sliding 2020-0 Yes Subcutaneo [facility] ers Scale -07 us, TID ity of Insulin - 02:00: MEALS+HS, [place] as Aspart 00 First dose Medical (NOVOLOG) + on [facility] 02/20/20 at Testing 2100, Until Discontinu ed, Routine gabapentin 2020-0 Yes 100mg 100 mg, Uni vers (NEURONTIN) 4-07 Oral, QHS, it y of capsule 100 02:00: First dose [place] mg 00 on [facility] 02/20/20 at Branch 2100, Until Discontinu ed, Routine spironolact 2020-0 Yes 25mg 25 mg, Univ ers one 4-07 Oral, BID, ity of (ALDACTONE) 01:00: First dose [place] tablet 25 00 on [facility] Medical mg 02/20/20 at Branch 2000, Until Discontinu ed, Routine metoprolol 2020-0 Yes 100mg 100 mg, Uni vers tartrate 4-07 Oral, BID, ity o f (LOPRESSOR) 01:00: First dose [place] tablet 100 00 on [facility] Medical mg 02/20/20 at Branch 2000, Until Discontinu ed, Routine furosemide 2020-0 Yes 40mg 40 mg, Unive rs (LASIX) 4-07 Oral, BID, ity of tablet 40 01:00: First dose [place] mg 00 on [facility] 02/20/20 at Branch 2000, Until Discontinu ed, [...] IV Push, ity of (PF)) 00:21: Q6HPRN, [place] injection 4 01 Starting Medi janett mg [facility] 02/20/20 Branch at 1921, Until Discontinu ed, Routine, Nausea and Vomiting (N/V) hydralAZINE 2019-0 2020- No 10mg 10 mg, Uni vers (APRESOLINE 4-06 04-06 Intravenou i ty of ) injection 23:45: 22:46 s, ONCE, 1 [place] 10 mg 00 :00 dose, [facility] 02/20/20 at Branch 1845, LOPEZ montelukast 2018-11 Yes 10mg QD Take [address] [facility] (SINGULAIR) 1-05 by mouth [place] [facility] 10 mg 16:17: nightly. Medical tablet 34 [place] lisinopril 2018-11 Yes 20mg QD Take [address] [facility] (PRINIVIL,Z 1-05 by mouth [place] [facility] ESTRIL) 20 16:17: daily. Medic al MG tablet 34 [place] metoprolol 2018-11 Yes 100mg Q.5D Take [address] [facility] (LOPRESSOR) 1-05 mg by [facility] 100 MG 16:17: mouth 2 Medical tablet 34 (two) Center times daily. amLODIPine 2018-11 Yes 5mg QD Take [address] [facility] [address] [facility] (NORVASC) 5 1-05 by mouth [facility] MG tablet 16:17: daily. Medica l 34 [place] hydroCHLORO 2018-11 Yes 12.5mg QD Take 12.[address] [facility] thiazide 1-05 mg by [facility] (MICROZIDE) 16:17: mouth Medic al 12.5 mg 34 daily. [place] capsule omeprazole 2018-11 Yes 40mg QD Take [address] (PRILOSEC) 1-05 by mouth [facility] 40 MG 16:17: daily. Medical capsule 34 [place] brimonidine 2018-11 Yes 1[drp] Q.5D Place 1 [...] 16:17: mouth Medical 50-1,000 mg 34 daily. [place] per tablet montelukast 2018-11 Yes 10mg QD Take [address] [facility] (SINGULAIR) 1-05 by mouth [place] [facility] 10 mg 16:17: nightly. Medical tablet 34 [place] lisinopril 2018-11 Yes 20mg QD Take [address] (PRINIVIL,Z 1-05 by mouth [facility] ESTRIL) 20 16:17: daily. Medic al MG tablet 34 [place] metoprolol 2018-11 Yes 100mg Q.5D Take [address] (LOPRESSOR) 1-05 mg by [facility] 100 MG 16:17: mouth 2 Medical tablet 34 (two) Center times daily. amLODIPine 2018-11 Yes 5mg QD Take [address] [facility] [address] [facility] (NORVASC) 5 1-05 by mouth [facility] MG tablet 16:17: daily. Medica l 34 [place] hydroCHLORO 2018-11 Yes 12.5mg QD Take 12.[address] [facility] thiazide 1-05 mg by [facility] (MICROZIDE) 16:17: mouth Medic al 12.5 mg 34 daily. Center capsule omeprazole 2018-11 Yes 40mg QD Take [address] (PRILOSEC) 1-05 by mouth [facility] 40 MG 16:17: daily. Medical capsule 34 [place] brimonidine 2018-11 Yes 1[drp] Q.5D Place 1 [...] + D Branch ORAL) methotrexat 2020- No [id number] 20mg Take 8 Univers e 04-24 04-08 Tabs by ity of (RHEUMATREX 00:00: 00:00 mouth [place] ) 2.5 mg 00 :00 weekly. Medical tablet Branch foLIC acid Yes [id number] 1mg Take 1 Tab Univers (FOLATE) 1 5-25 by mouth ity o f mg tablet 00:00: daily. [place] [facility] foLIC acid Yes [id number] 1mg Take 1 Tab Univers (FOLATE) 1 5-25 by mouth ity o f mg tablet 00:00: daily. [place] [facility] foLIC acid Yes [id number] 1mg Take 1 Tab Univers (FOLATE) 1 5-25 by mouth ity o f mg tablet 00:00: daily. [place] [facility] foLIC acid Yes [id number] 1mg Take 1 Tab Univers (FOLATE) 1 5-25 by mouth ity o f mg tablet 00:00: daily. [place] [facility] foLIC acid Yes [id number] 1mg Take 1 Tab Univers (FOLATE) 1 5-25 by mouth ity o f mg tablet 00:00: daily. [place] [facility] foLIC acid Yes [id number] 1mg Take 1 Tab Univers (FOLATE) 1 5-25 by mouth ity o f mg tablet 00:00: daily. [place] [facility] foLIC acid Yes [id number] 1mg Take 1 Tab Univers (FOLATE) 1 5-25 by mouth ity o f mg tablet 00:00: daily. [place] [facility] foLIC acid Yes [id number] 1mg Take 1 Tab Univers (FOLATE) 1 5-25 by mouth ity o f mg tablet 00:00: daily. [place] [facility] foLIC acid Yes [id number] 1mg Take 1 Tab Univers (FOLATE) 1 5-25 by mouth ity o f mg tablet 00:00: daily. [place] [facility] foLIC acid Yes [id number] 1mg Take 1 Tab Univers (FOLATE) 1 5-25 by mouth ity o f mg tablet 00:00: daily. [place] [facility] foLIC acid Yes [id number] 1mg Take 1 Tab Univers (FOLATE) 1 5-25 by mouth ity o f mg tablet 00:00: daily. [place] [facility] foLIC acid Yes [id number] 1mg Take 1 Tab Univers (FOLATE) 1 5-25 by mouth ity o f mg tablet 00:00: daily. [place] [facility] foLIC acid Yes [id number] 1mg Take 1 Tab Univers (FOLATE) 1 5-25 by mouth ity o f mg tablet 00:00: daily. [place] [facility] foLIC acid Yes [id number] 1mg Take 1 Tab Univers (FOLATE) 1 5-25 by mouth ity o f mg tablet 00:00: daily. [facility] foLIC acid Yes [id number] 1mg Take 1 Tab Univers (FOLATE) 1 5-25 by mouth ity o f mg tablet 00:00: daily. [place] [facility] foLIC acid Yes [id number] 1mg Take 1 Tab Univers (FOLATE) 1 5-25 by mouth ity o f mg tablet 00:00: daily. [place] [facility] foLIC acid Yes [id number] 1mg Take 1 Tab Univers (FOLATE) 1 5-25 by mouth ity o f mg tablet 00:00: daily. [place] [facility] foLIC acid Yes [id number] 1mg Take 1 Tab Univers (FOLATE) 1 5-25 by mouth ity o f mg tablet 00:00: daily. [place] [facility] foLIC acid Yes [id number] 1mg Take 1 Tab Univers (FOLATE) 1 5-25 by mouth ity o f mg tablet 00:00: daily. [place] [facility] foLIC acid Yes [id number] 1mg Take 1 Tab Univers (FOLATE) 1 5-25 by mouth ity o f mg tablet 00:00: daily. [place] [facility] foLIC acid Yes [id number] 1mg Take 1 Tab Univers (FOLATE) 1 5-25 by mouth ity o f mg tablet 00:00: daily. [place] [facility] foLIC acid Yes [id number] 1mg Take 1 Tab Univers (FOLATE) 1 5-25 by mouth ity o f mg tablet 00:00: daily. [place] [facility] [facility] foLIC acid Yes [id number] 1mg Take 1 Tab Univers (FOLATE) 1 5-25 by mouth ity o f mg tablet 00:00: daily. [place] [facility] foLIC acid Yes [id number] 1mg Take 1 Tab Univers (FOLATE) 1 5-25 by mouth ity o f mg tablet 00:00: daily. [place] [facility] foLIC acid Yes [id number] 1mg Take 1 Tab Univers (FOLATE) 1 5-25 by mouth ity o f mg tablet 00:00: daily. [place] [facility] foLIC acid Yes [id number] 1mg Take 1 Tab Univers (FOLATE) 1 5-25 by mouth ity o f mg tablet 00:00: daily. [place] [facility] foLIC acid Yes [id number] 1mg Take 1 Tab Univers (FOLATE) 1 5-25 by mouth ity o f mg tablet 00:00: daily. [place] [facility] foLIC acid Yes [id number] 1mg Take 1 Tab Univers (FOLATE) 1 5-25 by mouth ity o f mg tablet 00:00: daily. [place] [facility] foLIC acid Yes [id number] 1mg Take 1 Tab Univers (FOLATE) 1 5-25 by mouth ity o f mg tablet 00:00: daily. [place] [facility] foLIC acid Yes [id number] 1mg Take 1 Tab Univers (FOLATE) 1 5-25 by mouth ity o f mg tablet 00:00: daily. [place] [facility] Blood-Gluco Yes daily. Univ ers se Meter 2-14 ity of (FREESTYLE 00:00: [place] LITE METER) [facility] Blood-Gluco Yes daily. Univ ers se Meter 2-14 ity of (FREESTYLE 00:00: [place] LITE METER) [facility] Blood-Gluco Yes daily. Univ ers se Meter 2-14 ity of (FREESTYLE 00:00: [place] LITE METER) [facility] Blood-Gluco Yes daily. Univ ers se Meter 2-14 ity of (FREESTYLE 00:00: [place] LITE METER) [facility] Blood-Gluco Yes daily. Univ ers se Meter 2-14 ity of (FREESTYLE 00:00: [place] LITE METER) 00 [facility] Blood-Gluco Yes daily. Univ ers se Meter 2-14 ity of (FREESTYLE 00:00: [place] LITE METER) [facility] Blood-Gluco Yes daily. Univ ers se Meter 2-14 ity of (FREESTYLE 00:00: [place] LITE METER) [facility] Blood-Gluco Yes daily. Univ ers se Meter 2-14 ity of (FREESTYLE 00:00: [place] LITE METER) [facility] Blood-Gluco Yes daily. Univ ers se Meter 2-14 ity of (FREESTYLE 00:00: [place] LITE METER) 00 [facility] Blood-Gluco Yes daily. Univ ers se Meter [...] (FREESTYLE 00:00: [place] LITE METER) 00 Medical [facility] Blood-Gluco Yes daily. Univ ers se Meter 2-14 ity of (FREESTYLE 00:00: [place] LITE METER) 00 Medical [facility] Blood-Gluco Yes daily. Univ ers se Meter 2-14 ity of (FREESTYLE 00:00: [place] LITE METER) 00 Medical [facility] Blood-Gluco Yes daily. Univ ers se Meter 2-14 ity of (FREESTYLE 00:00: [place] LITE METER) 00 Medical [facility] Blood-Gluco Yes daily. Univ ers se Meter 2-14 ity of (FREESTYLE 00:00: [place] LITE METER) 00 Medical [facility] Blood-Gluco Yes daily. Univ ers se Meter 2-14 ity of (FREESTYLE 00:00: [place] LITE METER) 00 Medical [facility] Blood-Gluco Yes daily. Univ ers se Meter 2-14 ity of (FREESTYLE 00:00: [place] LITE METER) 00 Medical [facility] Blood-Gluco Yes daily. Univ ers se Meter 2-14 ity of (FREESTYLE 00:00: [place] LITE METER) 00 [facility] glipiZIDE 2020- No 2.5mg Take 1 Tab Univers XL 2-14 04-08 by mouth 2 ity of (GLUCOTROL 00:00: 00:00 (two) [place] XL) 2.5 mg 00 :00 times Medical 24 hr daily. Branch tablet KCL Yes 20meq Take 1 Tab Univer s (KLOR-CON 1-04 by mouth ity of M20) 20 mEq 00:00[place] KCL Yes 20meq Take 1 Tab Univer s (KLOR-CON 1-04 by mouth ity of M20) 20 mEq 00:00[place] [facility] KCL Yes 20meq Take 1 Tab Univer s (KLOR-CON 1-04 by mouth ity of M20) 20 mEq 00:00[place] [facility] KCL Yes 20meq Take 1 Tab Univer s (KLOR-CON 1-04 by mouth ity of M20) 20 mEq 00:00[place] 00 [facility] Yes 20meq Take 1 Tab Univer s (KLOR-CON 1-04 by mouth ity of M20) 20 mEq 00:00[place] [facility] Yes 20meq Take 1 Tab Univer s (KLOR-CON 1-04 by mouth ity of M20) 20 mEq 00:00[place] [facility] Yes 20meq Take 1 Tab Univer s (KLOR-CON 1-04 by mouth ity of M20) 20 mEq 00:00[place] [facility] Yes 20meq Take 1 Tab Univer s (KLOR-CON 1-04 by mouth ity of M20) 20 mEq 00:00[place]. [place] [facility] Yes 20meq Take 1 Tab Univer s (KLOR-CON 1-04 by mouth ity of M20) 20 mEq 00:00: [place]. [place] 00 [facility] Yes 20meq Take 1 Tab Univer s (KLOR-CON 1-04 by mouth ity of M20) 20 mEq 00:00: [place]. [place] 00 [facility] Yes 20meq Take 1 Tab Univer s (KLOR-CON 1-04 by mouth ity of M20) 20 mEq 00:00: [place]. [place] 00 [facility] Yes 20meq Take 1 Tab Univer s (KLOR-CON 1-04 by mouth ity of M20) 20 mEq 00:00: [place]. [place] [facility] Yes 20meq Take 1 Tab Univer s (KLOR-CON 1-04 by mouth ity of M20) 20 mEq 00:00: [place]. [place] 00 [facility] Yes 20meq Take 1 Tab Univer s (KLOR-CON 1-04 by mouth ity of M20) 20 mEq 00:00: [place]. [place] 00 [facility] Yes 20meq Take 1 Tab Univer s (KLOR-CON 1-04 by mouth ity of M20) 20 mEq 00:00: [place]. [place] 00 [facility] Yes 20meq Take 1 Tab Univer s (KLOR-CON 1-04 by mouth ity of M20) 20 mEq 00:00: [place]. [place] 00 [facility] Yes 20meq Take 1 Tab Univer s (KLOR-CON 1-04 by mouth ity of M20) 20 mEq 00:00[place]. [place] 00 [facility] Yes 20meq Take 1 Tab Univer s (KLOR-CON 1-04 by mouth ity of M20) 20 mEq 00:00: [place]. [place] 00 [facility] Yes 20meq Take 1 Tab Univer s (KLOR-CON 1-04 by mouth ity of M20) 20 mEq 00:00: [place]. [place] 00 [facility] Yes 20meq Take 1 Tab Univer s (KLOR-CON 1-04 by mouth ity of M20) 20 mEq 00:00: [place]. [place] 00 [facility] Yes 20meq Take 1 Tab Univer s (KLOR-CON 1-04 by mouth ity of M20) 20 mEq 00:00: [place]. [place] 00 [facility] Yes 20meq Take 1 Tab Univer s (KLOR-CON 1-04 by mouth ity of M20) 20 mEq 00:00: [place]. [place] 00 [facility] Yes 20meq Take 1 Tab Univer s (KLOR-CON 1-04 by mouth ity of M20) 20 mEq 00:00: [place]. [place] 00 [facility] Yes 20meq Take 1 Tab Univer s (KLOR-CON 1-04 by mouth ity of M20) 20 mEq 00:00: [place]. [place] 00 [facility] Yes 20meq Take 1 Tab Univer s (KLOR-CON 1-04 by mouth ity of M20) 20 mEq 00:00: [place]. [place] tablet 00 [facility] Yes 20meq Take 1 Tab Univer [...] 00:[place]: [place]. [place] tablet [facility] [place] KCL Yes 20meq Take 1 Tab Univer s (KLOR-CON 1-04 by mouth ity of M20) 20 mEq 00:00: [place]. [place] tablet [place] KCL Yes 20meq Take 1 [...] inhalation disk blood sugar 2009-11 Yes before [facility] ers diagnostic 2-16 meals. ity of (FREESTYLE [...] inhalation disk blood sugar 2009-11 Yes before [facility] ers diagnostic 2-16 meals. ity of (FREESTYLE [...] inhalation disk blood sugar 2009-11 Yes before [facility] ers diagnostic 2-16 meals. ity of (FREESTYLE [...] inhalation disk blood sugar 2009-11 Yes before [facility] ers diagnostic 2-16 meals. ity of (FREESTYLE [...] inhalation disk blood sugar 2009-11 Yes before [facility] ers diagnostic 2-16 meals. ity of (FREESTYLE [...] inhalation disk blood sugar 2009-11 Yes before [facility] ers diagnostic 2-16 meals. ity of (FREESTYLE [...] inhalation disk blood sugar 2009-11 Yes before [facility] ers diagnostic 2-16 meals. ity of (FREESTYLE [...] inhalation disk blood sugar 2009-11 Yes before [facility] ers diagnostic 2-16 meals. ity of (FREESTYLE [...] inhalation disk blood sugar 2009-11 Yes before [facility] ers diagnostic 2-16 meals. ity of (FREESTYLE [...] inhalation disk blood sugar 2009-11 Yes before [facility] ers diagnostic 2-16 meals. ity of (FREESTYLE [...] inhalation disk blood sugar 2009-11 Yes before [facility] ers diagnostic 2-16 meals. ity of (FREESTYLE [...] inhalation disk blood sugar 2009-11 Yes before [facility] ers diagnostic 2-16 meals. ity of (FREESTYLE [...] inhalation disk blood sugar 2009-11 Yes before [facility] ers diagnostic 2-16 meals. ity of (FREESTYLE [...] inhalation disk blood sugar 2009-11 Yes before [facility] ers diagnostic 2-16 meals. ity of (FREESTYLE [...] inhalation disk blood sugar 2009-11 Yes before [facility] ers diagnostic 2-16 meals. ity of (FREESTYLE [...] inhalation disk blood sugar 2009-11 Yes before [facility] ers diagnostic 2-16 meals. ity of (FREESTYLE [...] inhalation disk blood sugar 2009-11 Yes before [facility] ers diagnostic 2-16 meals. ity of (FREESTYLE [...] inhalation disk blood sugar 2009-11 Yes before [facility] ers diagnostic 2-16 meals. ity of (FREESTYLE [...] inhalation disk blood sugar 2009-11 Yes before [facility] ers diagnostic 2-16 meals. ity of (FREESTYLE [...] inhalation disk blood sugar 2009-11 Yes before [facility] ers diagnostic 2-16 meals. ity of (FREESTYLE [...] inhalation disk blood sugar 2009-11 Yes before [facility] ers diagnostic 2-16 meals. ity of (FREESTYLE [...] inhalation disk blood sugar 2009-11 Yes before [facility] ers diagnostic 2-16 meals. ity of (FREESTYLE [...] inhalation disk blood sugar 2009-11 Yes before [facility] ers diagnostic 2-16 meals. ity of (FREESTYLE [...] inhalation disk blood sugar 2009-11 Yes before [facility] ers diagnostic 2-16 meals. ity of (FREESTYLE [...] inhalation disk blood sugar 2009-11 Yes before [facility] ers diagnostic 2-16 meals. ity of (FREESTYLE [...] inhalation disk blood sugar 2009-11 Yes before [facility] ers diagnostic 2-16 meals. ity of (FREESTYLE [...] inhalation disk blood sugar 2009-11 Yes before [facility] ers diagnostic 2-16 meals. ity of (FREESTYLE [...] inhalation disk blood sugar 2009-11 Yes before [facility] ers diagnostic 2-16 meals. ity of (FREESTYLE 00:00: [place] LITE 00 Medical STRIPS) Branch strip ALBUTEROL 2009-11 2020- No 2{puff} Inhale 2 Univers SULFATE 2-16 04-08 Puffs as ity of (VENTOLIN 00:00: 00:[place]. [place] HFA INHALE) 00 :00 [facility] Iron Iron No Iron (Ferrous (Ferrous (Ferrous [...] D3 1.25 MG 1.25 MG 1.25 MG (50278 UT) (74449 UT) (10812 UT) Metoprolol Metoprolol No Metoprolol Tartrate Tartrate [...] D3 1.25 MG 1.25 MG 1.25 MG (62883 UT) (16811 UT) (12493 UT) Atorvastati Atorvastati No Atorvastat n Calcium [...] D3 1.25 MG 1.25 MG 1.25 MG (78302 UT) (57998 UT) (73880 UT) Atorvastati Atorvastati No Atorvastat n Calcium [...] D3 1.25 MG 1.25 MG 1.25 MG (92429 UT) (07650 UT) (31425 UT) Atorvastati Atorvastati No Atorvastat n Calcium [...] D3 1.25 MG 1.25 MG 1.25 MG (17818 UT) (16332 UT) (06760 UT) ProAir HFA ProAir HFA No 2{puffs ProAir HFA 108 (90 108 (90 _as_nee 108 (90 Base) Base) ded} Base) MCG/ACT MCG/ACT MCG/ACT Eplerenone Eplerenone No 1{table QD Eplerenone 25 MG 25 MG t} 25 MG Metoprolol Metoprolol No 1{table BID Metoprolol Tartrate Tartrate t_with_ Tartrate 100 MG 100 MG food} 100 MG Xyzal Xyzal No Xyzal Vital Signs Vital Name Observation Time Observation Value Comments Source WEIGHT 2023-05-15 20:01:00 87.998 kg HEIGHT 2023-05-15 20:01:00 165.1 cm WEIGHT 2023-05-15 20:01:00 87.998 kg HEIGHT 2023-05-15 20:01:00 165.1 cm WEIGHT 2023-05-15 20:01:00 87.998 kg HEIGHT 2023-05-15 20:01:00 165.1 cm height 2022-09-23 11:20:00 65.5 [in_i] Common [facility] weight 2022-09-23 11:20:00 192.6 [lb_av] Common [facility] temperature 2022-09-23 11:20:00 97.4 [degF] Common [facility] bmi 2022-09-23 11:20:00 31.56 kg/m2 [facility] oximetry 2022-09-23 11:20:00 98 % Common [facility] respiratory rate 2022-09-23 11:20:00 17 /min Comm on [facility] blood pressure 2022-09-23 11:20:00 135 mm[Hg] Common [facility] - systolic [facility] blood pressure 2022-09-23 11:20:00 74 mm[Hg] Common [facility] - diastolic [facility] height 2022-06-24 11:00:00 65.5 [in_i] Common [facility] weight 2022-06-24 11:00:00 185 [lb_av] [facility] temperature 2022-06-24 11:00:00 97.6 [degF] Common [facility] bmi 2022-06-24 11:00:00 30.31 kg/m2 [facility] oximetry 2022-06-24 11:00:00 100 % [facility] respiratory rate 2022-06-24 11:00:00 16 /min Comm on [facility] blood pressure 2022-06-24 11:00:00 132 mm[Hg] Common [facility] - systolic [facility] blood pressure 2022-06-24 11:00:00 74 mm[Hg] Common [facility] - diastolic [facility] height 2022-05-21 15:00:00 65.5 [in_i] Common [facility] weight 2022-05-21 15:00:00 186.2 [lb_av] [facility] temperature 2022-05-21 15:00:00 97.9 [degF] Common S [facility] - [facility] bmi 2022-05-21 15:00:00 30.51 kg/m2 [facility] oximetry 2022-05-21 15:00:00 100 % [facility] respiratory rate 2022-05-21 15:00:00 18 /min Comm on [facility] blood pressure 2022-05-21 15:00:00 133 mm[Hg] Common [facility] - systolic [facility] blood pressure 2022-05-21 15:00:00 62 mm[Hg] Common [facility] - diastolic [facility] height 2022-03-25 13:40:00 65.5 [in_i] Common [facility] weight 2022-03-25 13:40:00 200.4 [lb_av] [facility] temperature 2022-03-25 13:40:00 98.1 [degF] [facility] bmi 2022-03-25 13:40:00 32.84 kg/m2 [facility] oximetry 2022-03-25 13:40:00 100 % [facility] respiratory rate 2022-03-25 13:40:00 18 /min Comm on [facility] blood pressure 2022-03-25 13:40:00 132 mm[Hg] Common [facility] - systolic [facility] blood pressure 2022-03-25 13:40:00 72 mm[Hg] Common [facility] - diastolic [facility] height 2022-03-25 14:00:00 65.5 [in_i] Common [facility] weight 2022-03-25 14:00:00 200.4 [lb_av] [facility] temperature 2022-03-25 14:00:00 98.1 [degF] Common [facility] bmi 2022-03-25 14:00:00 32.84 kg/m2 [facility] oximetry 2022-03-25 14:00:00 100 % Common [facility] respiratory rate 2022-03-25 14:00:00 18 /min Comm on [facility] blood pressure 2022-03-25 14:00:00 132 mm[Hg] Common [facility] - systolic [facility] blood pressure 2022-03-25 14:00:00 72 mm[Hg] Common [facility] - diastolic [facility] height 2021-11-05 13:20:00 65.5 [in_i] Common [facility] weight 2021-11-05 13:20:00 201.6 [lb_av] [facility] temperature 2021-11-05 13:20:00 97.2 [degF] [facility] bmi 2021-11-05 13:20:00 33.03 kg/m2 [facility] oximetry 2021-11-05 13:20:00 100 % [facility] respiratory rate 2021-11-05 13:20:00 17 /min Comm on [facility] blood pressure 2021-11-05 13:20:00 135 mm[Hg] Common [facility] - systolic [facility] blood pressure 2021-11-05 13:20:00 72 mm[Hg] Common [facility] - diastolic [facility] height 2021-08-13 14:00:00 65.5 [in_i] Common [facility] weight 2021-08-13 14:00:00 213.4 [lb_av] [facility] temperature 2021-08-13 14:00:00 97.2 [degF] [facility] bmi 2021-08-13 14:00:00 34.97 kg/m2 [facility] oximetry 2021-08-13 14:00:00 99 % [facility] respiratory rate 2021-08-13 14:00:00 17 /min Comm on [facility] blood pressure 2021-08-13 14:00:00 132 mm[Hg] [facility] - systolic [facility] blood pressure 2021-08-13 14:00:00 70 mm[Hg] [facility] - diastolic [facility] Systolic blood 2021-05-27 15:32:00 146 mm[Hg] Univer sity of pressure [facility] Diastolic blood 2021-05-27 15:32:00 50 mm[Hg] Unive rsity of pressure [facility] Heart rate 2021-05-27 15:32:00 62 /min [facility] [place] [facility] Oxygen saturation in 2021-05-27 15:32:00 98 /min [facility] of Arterial blood by [place] [employer] [facility] Pulse oximetry Branch Body height 2021-05-27 14:28:00 165.1 cm [facility] [place] [facility] [place] Body weight 2021-05-27 14:28:00 99.791 kg [facility] [place] [facility] BMI 2021-05-27 14:28:00 36.61 kg/m2 [facility] [place] [facility] Systolic blood 2021-05-02 15:04:00 139 mm[Hg] Univer sity of pressure [place] [facility] Diastolic blood 2021-05-02 15:04:00 74 mm[Hg] Unive rsity of pressure [facility] Heart rate 2021-05-02 15:04:00 57 /min [facility] [place] [facility] Body temperature 2021-05-02 15:04:00 36.5 Jami [facility] [place] [facility] Respiratory rate 2021-05-02 15:04:00 16 /min Univ [facility] [place] [facility] Body height 2021-05-02 15:04:00 165.1 cm [facility] [place] [facility] Body weight 2021-05-02 15:04:00 91.173 kg [facility] [place] [facility] BMI 2021-05-02 15:04:00 33.45 kg/m2 [facility] [place] [facility] Oxygen saturation in 2021-05-02 15:04:00 100 /min [facility] of Arterial blood by [place] [employer] [facility] Pulse oximetry Branch Systolic blood 2021-03-28 15:35:00 165 mm[Hg] Univer sity of pressure [place] [facility] Diastolic blood 2021-03-28 15:35:00 58 mm[Hg] Unive rsity of pressure [place] [facility] Heart rate 2021-03-28 15:35:00 56 /min Universi ty of [facility] Body temperature 2021-03-28 15:35:00 36.33 Jami Univ ersity of [facility] Body height 2021-03-28 15:35:00 165.1 cm Universi ty of [facility] Body weight 2021-03-28 15:35:00 96.616 kg Universi ty of [facility] BMI 2021-03-28 15:35:00 35.45 kg/m2 Universi ty of [facility] Systolic blood 2021-01-29 16:57:00 142 mm[Hg] Univer sity of pressure [facility] Diastolic blood 2021-01-29 16:57:00 62 mm[Hg] Unive rsity of pressure [facility] Heart rate 2021-01-29 16:57:00 55 /min Universi ty of [facility] Body temperature 2021-01-29 16:57:00 36.44 Jami Univ ersity of [facility] Respiratory rate 2021-01-29 16:57:00 18 /min Univ ersity of [facility] Body height 2021-01-29 16:57:00 165.1 cm [facility] [place] [facility] Body weight 2021-01-29 16:57:00 96.616 kg [facility] [place] [facility] BMI 2021-01-29 16:57:00 35.45 kg/m2 Universi ty of [facility] Oxygen saturation in 2021-01-29 16:57:00 99 /min University of Arterial blood by [facility] Pulse oximetry Branch Systolic blood 2021-01-29 16:57:00 142 mm[Hg] Univer sity of pressure [facility] Diastolic blood 2021-01-29 16:57:00 62 mm[Hg] Unive rsity of pressure [facility] Heart rate 2021-01-29 16:57:00 55 /min Universi ty of [facility] Body temperature 2021-01-29 16:57:00 36.44 Jami Univ ersity of [facility] Respiratory rate 2021-01-29 16:57:00 18 /min Univ ersity of [facility] Body height 2021-01-29 16:57:00 165.1 cm [facility] [place] [facility] Body weight 2021-01-29 16:57:00 96.616 kg [facility] [place] [facility] BMI 2021-01-29 16:57:00 35.45 kg/m2 [facility] [place] [facility] Oxygen saturation in 2021-01-29 16:57:00 99 /min [facility] of Arterial blood by [facility] Pulse oximetry Branch Systolic blood 2021-01-03 20:08:00 179 mm[Hg] Univer sity of pressure [place] [facility] Diastolic blood 2021-01-03 20:08:00 60 mm[Hg] Unive rsity of pressure [place] [facility] Heart rate 2021-01-03 20:08:00 67 /min [facility] [place] [facility] Oxygen saturation in 2021-01-03 20:08:00 92 /min [facility] of Arterial blood by [facility] Pulse oximetry Branch Body weight 2021-01-03 [...] [facility] Arterial blood by [facility] Pulse oximetry Branch Body weight 2021-01-03 19:10:00 88.905 kg [facility] [place] [facility] BMI 2021-01-03 19:10:00 32.62 kg/m2 [facility] [place] [facility] Systolic blood 2020-11-19 19:10:00 217 mm[Hg] Univer sity of pressure [place] [facility] Diastolic blood 2020-11-19 19:10:00 82 mm[Hg] Unive rsity of pressure [place] [facility] Heart rate 2020-11-19 19:10:00 56 /min [facility] [place] [facility] Respiratory rate 2020-11-19 19:10:00 16 /min Univ ersity [facility] [place] [facility] Body weight 2020-11-19 19:10:00 84.823 kg [facility] [place] [facility] BMI 2020-11-19 19:10:00 31.12 kg/m2 [facility] [place] [facility] Oxygen saturation in 2020-11-19 19:10:00 98 /min [facility] of Arterial blood by [facility] janett Pulse oximetry Branch Systolic blood 2020-11-19 19:10:00 217 mm[Hg] Univer sity of pressure [place] [facility] Diastolic blood 2020-11-19 19:10:00 82 mm[Hg] Unive rsity of pressure [place] [facility] Heart rate 2020-11-19 19:10:00 56 /min [facility] [place] [facility] Respiratory rate 2020-11-19 19:10:00 16 /min Univ ersity [facility] [place] [facility] Body weight 2020-11-19 19:10:00 84.823 kg [facility] [place] [facility] BMI 2020-11-19 19:10:00 31.12 kg/m2 [facility] [place] [facility] Oxygen saturation in 2020-11-19 19:10:00 98 /min [facility] of Arterial blood by [facility] Pulse oximetry Branch Systolic blood 2020-10-22 [...] 96 /min [facility] Arterial blood by [facility] janett Pulse oximetry Branch Body temperature 2020-10-22 [...] 96 /min [facility] Arterial blood by [facility] Pulse oximetry Branch Body temperature 2020-10-22 [...] 99 /min [facility] Arterial blood by [facility] Pulse oximetry Branch Body temperature 2020-02-25 [...] 12:42:00 62 mm[Hg] Unive rsity of pressure [place] [facility] Heart rate 2020-02-22 12:42:00 56 /min [facility] [place] [facility] Body temperature 2020-02-22 12:42:00 36.5 [facility] 2020-02-22 12:42:00 18 /min [facility] Oxygen saturation in 2020-02-22 12:42:00 96 /min University Arterial blood by [facility] Pulse oximetry Branch Body weight 2020-02-22 00:30:00 83.462 kg [facility] BMI 2020-02-22 00:30:00 30.62 kg/m2 [facility] Body height 2020-02-21 00:24:00 165.1 cm [facility] Oxygen saturation in 2023-08-27 16:19:00 100 /min [facility] Arterial blood by Pulse oximetry Systolic blood 2023-08-27 16:19:00 120 mm[Hg] Method [facility] pressure Diastolic blood 2023-08-27 16:19:00 53 mm[Hg] [facility] pressure Heart rate 2023-08-27 16:19:00 49 /min [facility] Body temperature 2023-08-27 16:19:00 35.78 Jami [facility] Respiratory rate 2023-08-27 16:19:00 18 /min [facility] Body height 2023-08-27 16:19:00 165.1 cm [facility] Body weight 2023-08-27 16:19:00 82.373 kg [facility] BMI 2023-08-27 16:19:00 30.22 kg/m2 [facility] Systolic blood 2023-06-15 18:43:00 98 mm[Hg] [facility] pressure Diastolic blood 2023-06-15 18:43:00 62 mm[Hg] [facility] pressure Heart rate 2023-06-15 18:43:00 72 /min [facility] Body height 2023-06-15 18:43:00 165.1 cm [facility] Body weight 2023-06-15 18:43:00 88.225 kg [facility] BMI 2023-06-15 18:43:00 32.37 kg/m2 [facility] Systolic blood 2023-05-28 18:17:00 149 mm[Hg] [facility] pressure Diastolic blood 2023-05-28 18:17:00 61 mm[Hg] [facility] pressure Heart rate 2023-05-28 18:17:00 44 /min [facility] Body temperature 2023-05-28 18:17:00 35.28 Jami [facility] Respiratory rate 2023-05-28 18:17:00 18 /min [facility] Body height 2023-05-28 18:17:00 165.1 cm [facility] Body weight 2023-05-28 18:17:00 90.855 kg [facility] BMI 2023-05-28 18:17:00 33.33 kg/m2 [facility] Oxygen saturation in 2023-05-28 18:17:00 100 /min [facility] Arterial blood by Pulse oximetry Systolic blood 2023-05-18 08:12:00 148 mm[Hg] [facility] Diastolic blood 2023-05-18 08:12:00 39 mm[Hg] [facility] Heart rate 2023-05-18 08:12:00 56 /min [facility] Body temperature 2023-05-18 08:12:00 36.39 Jami [facility] Respiratory rate 2023-05-18 08:12:00 16 /min [facility] Oxygen saturation in 2023-05-18 08:12:00 100 /min [facility] Arterial blood by Medical Ce nter Pulse oximetry Body height 2023-05-15 20:01:00 165.1 cm [facility] Body weight 2023-05-15 20:01:00 87.998 kg [facility] BMI 2023-05-15 20:01:00 32.28 kg/m2 [facility] Heart rate 2022-12-11 18:27:00 53 /min [facility] Body temperature 2022-12-11 18:27:00 35.83 Jami [facility] Respiratory rate 2022-12-11 18:27:00 18 /min [facility] Body height 2022-12-11 18:27:00 165.1 cm [facility] Body weight 2022-12-11 18:27:00 87.635 kg [facility] BMI 2022-12-11 18:27:00 32.15 kg/m2 [facility] Oxygen saturation in 2022-12-11 18:27:00 99 /min [facility] Arterial blood by Pulse oximetry Systolic blood 2022-12-11 18:27:00 164 mm[Hg] Method [facility] pressure Diastolic blood 2022-12-11 18:27:00 55 mm[Hg] [facility] pressure Procedures Procedure Date / Time Performing Clinician Source Performed XR SHOULDER 2+ VW LEFT 2023-08-27 21:51:16 [facility] BASIC METABOLIC PANEL 2023-08-27 16:16:00 [facility] HEPATIC FUNCTION PANEL 2023-08-27 16:16:00 [facility] PROTHROMBIN TIME WITH INR 2023-08-27 16:16:00 [facility] PART[facility] THROMBOPLASTIN 2023-08-27 16:16:00 Nabeel Ventura [facility] TIME (PTT) CBC WITH PLATELET AND 2023-08-27 16:16:00 [facility] DIFFERENTIAL ALPHA FETOPROTEIN 2023-08-27 16:16:00 [facility] MAGNESIUM LEVEL 2023-08-27 16:16:00 [facility] PHOSPHORUS LEVEL 2023-08-27 16:16:00 JoseluisNabeel Hogan [facility] ESTIMATED GFR 2023-08-27 16:16:00 [facility] HEPATIC FUNCTION PANEL 2023-07-22 19:38:00 [facility] PROTHROMBIN TIME WITH INR 2023-07-22 19:37:00 [facility] CBC WITH PLATELET AND 2023-07-22 19:35:00 Nabeel Ventura [facility] DIFFERENTIAL BASIC METABOLIC PANEL 2023-07-22 19:33:00 Nabeel Ventura [facility] BASIC METABOLIC PANEL 2023-06-13 16:02:00 [facility] HEPATIC FUNCTION PANEL 2023-06-13 16:02:00 JoseluisNabeel Hogan [facility] PROTHROMBIN TIME WITH INR 2023-06-13 16:02:00 [facility] CBC WITH PLATELET AND 2023-06-13 16:02:00 [facility] DIFFERENTIAL TTE COMPLETE, WO 2023-05-28 17:36:00 [facility] CONTRAST, W AGITATED SALINE ([id number]) MRI ABDOMEN W WO CONTRAST 2023-05-28 16:00:00 [facility] BASIC METABOLIC PANEL 2023-05-28 14:30:00 [facility] Healthcare[facility]abeel raphael [facility] HEPATIC FUNCTION PANEL 2023-05-28 14:30:00 [facility] PROTHROMBIN TIME WITH INR 2023-05-28 14:30:00 [facility] PARTIAL THROMBOPLASTIN 2023-05-28 14:30:00 [facility] HealthNabeel raphael [facility] TIME (PTT) CBC WITH PLATELET AND 2023-05-28 14:30:00 [facility] Health[facility]abeel raphael [facility] DIFFERENTIAL ALPHA FETOPROTEIN 2023-05-28 14:30:00 [facility] MAGNESIUM LEVEL 2023-05-28 14:30:00 [facility] PHOSPHORUS LEVEL 2023-05-28 14:30:00 [facility] ESTIMATED GFR 2023-05-28 14:30:00 [facility] HEMOGLOBIN A1C 2023-05-18 04:30:00 [facility] CBC W/PLT COUNT & AUTO 2023-05-18 04:30:[address] [facility] Center COMPREHENSIVE METABOLIC 2023-05-18 04:30:00 [facility] Center CBC W/PLT COUNT & AUTO 2023-05-18 04:30:00 [facility] DIFFERENTIAL Center CREATININE, RANDOM URINE 2023-05-17 09:42:00 [facility] SODIUM, RANDOM URINE 2023-05-17 09:42:00 [facility] Center CBC W/PLT COUNT & AUTO 2023-05-17 05:06:[address] [facility] PROTHROMBIN TIME/INR 2023-05-17 05:06:00 Vivian Rai [facility] CALCIUM, IONIZED 2023-05-17 05:06:00 [facility] COMPREHENSIVE METABOLIC 2023-05-17 05:06:00 [facility] PANEL Center MAGNESIUM 2023-05-17 05:06:00 [facility] PHOSPHORUS 2023-05-17 05:06:00 [facility] CBC W/PLT COUNT & AUTO 2023-05-17 05:06:00 [facility] PROTEIN, RANDOM URINE 2023-05-16 20:21:00 [facility] URINALYSIS W/ MICROSCOPIC 2023-05-16 19:50:00 Vivian Rai [facility] HEMOGLOBIN AND HEMATOCRIT 2023-05-16 16:17:[address] [facility] POCT-GLUCOSE METER 2023-05-16 13:39:00 Vivian Rai [facility] REPORT OF PROCEDURE - 2023-05-16 13:29:10 Sheikh [facility] ENDOSCOPY URL Center EGD 2023-05-16 11:00:00 Mini Fernandes [facility] (ESOPHAGOGASTRODUODENOSCO Center PY) CBC W/PLT COUNT & AUTO 2023-05-16 00:09:00 Elizabeth Bowden [facility] CBC W/PLT COUNT & AUTO 2023-05-16 00:09:00 Elizabeth Bowden [facility] COMPREHENSIVE METABOLIC 2023-05-16 00:09:00 Elizabeth Bowden [facility] PT/APTT 2023-05-16 00:09:00 Kal [facility] TYPE AND SCREEN, 2023-05-16 00:09:00 Elizabeth Bowden PRISCILA [facility] MRI ABDOMEN W WO CONTRAST 2022-12-11 17:40:00 [facility] TTE COMPLETE, WO 2022-12-11 16:18:00 [facility] CONTRAST, W AGITATED SALINE ([id number]) BASIC METABOLIC PANEL 2022-12-11 14:20:00 [facility] HealthNabeel raphael [facility] HEPATIC FUNCTION PANEL 2022-12-11 14:20:00 [facility] HealthcareNabeel raphael [facility] PROTHROMBIN TIME WITH INR 2022-12-11 14:20:00 [facility] PARTIAL THROMBOPLASTIN 2022-12-11 14:20:00 [facility] Hogan [facility] TIME (PTT) CBC WITH PLATELET AND 2022-12-11 14:20:00 [facility] HealthNabeel raphael [facility] DIFFERENTIAL ALPHA FETOPROTEIN 2022-12-11 14:20:00 [facility] MAGNESIUM LEVEL 2022-12-11 14:20:00 [facility] PHOSPHORUS LEVEL 2022-12-11 14:20:00 [facility] ESTIMATED GFR 2022-12-11 14:20:00 [facility] TTE COMPLETE, WO 2022-05-15 19:40:00 [facility] CONTRAST, W AGITATED SALINE ([id number]) MRI ABDOMEN W WO CONTRAST 2022-05-15 15:30:00 [facility] BASIC METABOLIC PANEL 2022-05-15 14:11:00 [facility] HealthNabeel raphael [facility] HEPATIC FUNCTION PANEL 2022-05-15 14:11:00 [facility] Hogan [facility] PROTHROMBIN TIME WITH INR 2022-05-15 14:11:00 [facility] PARTIAL THROMBOPLASTIN 2022-05-15 14:11:00 [facility] TIME (PTT) CBC WITH PLATELET AND 2022-05-15 14:11:00 [facility] DIFFERENTIAL ALPHA FETOPROTEIN 2022-05-15 14:11:00 [facility] MAGNESIUM LEVEL 2022-05-15 14:11:00 [facility] PHOSPHORUS LEVEL 2022-05-15 14:11:00 [facility] ESTIMATED GFR 2022-05-15 14:11:00 [facility] IR 2021-05-02 15:09:28 Catracho Thornton [facility] PARACENTESIS/PERITONECENT C Medica l Branch ESIS WITH IMAGING IR 2021-03-28 15:29:30 Catracho Thornton [facility] PARACENTESIS/PERITONECENT C Medica l Branch ESIS WITH IMAGING ASSIGNMENT OF BENEFITS 2021-03-28 13:44:31 Doctor Unassigned, [facility] PHYSICIAN ORDERS 2021-03-21 05:01:00 Doctor Unassigned, [facility] [id number] 2021-02-18 00:00:00 WEAKI [facility] [id number] 2021-02-15 00:00:00 UGBST [facility] [id number] 2021-02-15 00:00:00 UGBST [facility] IR 2021-01-29 16:42:00 Catracho Thornton [facility] PARACENTESIS/PERITONECENT C Medica l Branch ESIS WITH IMAGING ASSIGNMENT OF BENEFITS 2021-01-29 15:10:15 Doctor Unassigned, [facility] IR 2021-01-03 19:17:21 Catracho Thornton [facility] PARACENTESIS/PERITONECENT C Medica l Branch ESIS WITH IMAGING ASSIGNMENT OF BENEFITS 2021-01-03 17:46:32 Doctor Unassigned, [facility] PHYSICIAN ORDERS 2020-12-25 06:01:00 Doctor Unassigned, [facility] IR 2020-11-19 20:14:13 Catracho Thornton [facility] PARACENTESIS/PERITONECENT C Medica l Branch ESIS WITH IMAGING IR 2020-10-22 20:39:51 Catracho Thornton [facility] PARACENTESIS/PERITONECENT C Medica l Branch ESIS WITH IMAGING FERRITIN SERUM 2020-10-02 15:25:00 Lachelle wisam [facility] Medical Branch IRON 2020-10-02 15:25:00 Catracho [place] [facility] TOTAL IRON BINDING 2020-10-02 15:25:00 Catracho Thornton [facility] CAPACITY C Medical Branch HEPATIC FUNCTION PANEL 2020-10-02 15:25:00 Catracho Thornton [facility] ([id number]) (ALB,T.PRO,BILI Medical Branch T,BU/BC,ALT,AST,ALK PHOS) CBC WITH DIFF 2020-10-02 15:25:00 Catracho Thornton [facility] PROTHROMBIN TIME / INR 2020-10-02 15:25:00 Catracho Thornton [facility] ALPHA FETOPROTEIN 2020-10-02 15:25:00 Catracho Thornton [facility] HEPATITIS B SURFACE 2020-10-02 15:25:00 [facility] ANTIBODY Medical Branch HEPATITIS B SURFACE 2020-10-02 15:25:00 Catracho Thornton [facility] ANTIGEN Medical Branch HCV ANTIBODY 2020-10-02 15:25:00 Catracho Thornton [facility] HBC ANTIBODY (IGM & IGG) 2020-10-02 15:25:00 Catracho Thornton [facility] HAV ANTIBODY (IGG AND 2020-10-02 15:25:00 Catracho Thornton [facility] IGM) Medical Branch PHYSICIAN ORDERS 2020-10-02 06:01:00 Doctor Unassigned, [facility] AUTHORIZATION FOR RELEASE 2020-03-21 05:01:00 Doctor Unassigned, [facility] Branch CT HEAD WO CONTRAST 2020-02-25 13:41:[address] [facility] PROTHROMBIN TIME / INR 2020-02-25 12:44:00 Mavis Hernandez [facility] ACTIVATED PARTIAL 2020-02-25 12:44:00 Mavis Hernandez [facility] URINALYSIS 2020-02-25 12:25:00 Leonides Edwards [facility] ADC / LCC - DRUG SCREEN 2020-02-25 12:25:00 Leonides Edwards [facility] AMMONIA, PLASMA 2020-02-25 12:14:00 Leonides Edwards [facility] TROPONIN I 2020-02-25 11:46:00 Mavsi Hernandez [facility] SALICYLATE 2020-02-25 11:46:00 Leonides Edwards [facility] LIPASE 2020-02-25 11:40:00 IbikunLeonides renee [facility] HEPATIC FUNCTION PANEL 2020-02-25 11:40:00 Leonides Edwards U [facility] ([id number]) ([facility] T,BU/BC,ALT,AST,ALK PHOS) BASIC METABOLIC PANEL 2020-02-25 11:40:00 Kevin Edwardso Priscila Un [facility] (NA, K, CL, CO2, GLUCOSE, Medica l Branch BUN, CREATININE, CA) CBC WITH DIFFERENTIAL 2020-02-25 11:40:00 Leonides Edwards Un [facility] EKG-12 LEAD 2020-02-25 11:30:34 Leonides Edwards [facility] AMMONIA, PLASMA 2020-02-22 10:18:00 Fausto Zuñiga [facility] BASIC METABOLIC PANEL 2020-02-22 10:18:00 Fausto Zuñiga [facility] (NA, K, CL, CO2, GLUCOSE, Medica l Branch BUN, CREATININE, CA) POCT GLUCOSE (AUTOMATED) 2020-02-22 01:06:00 Fausto Zuñiga [facility] POCT GLUCOSE (AUTOMATED) 2020-02-21 16:35:00 Fausto Zuñiga [facility] AMMONIA, PLASMA 2020-02-21 14:26:00 Fausto Zuñiga [facility] POCT GLUCOSE (AUTOMATED) 2020-02-21 12:35:00 Fausto Zuñiga [facility] BASIC METABOLIC PANEL 2020-02-21 09:00:00 Geno Montenegro [facility] (NA, K, CL, CO2, GLUCOSE, Medica l Branch BUN, CREATININE, CA) CBC WITH DIFFERENTIAL 2020-02-21 09:00:00 Geno Montenegro [facility] POCT GLUCOSE (AUTOMATED) 2020-02-21 01:38:00 Fausto Zuñiga [facility] CORONAVIRUS COVID-19 2020-02-20 23:07:00 [facility] E[facility]-12 LEAD 2020-02-20 22:28:58 Hudson Santamaria [facility] XR CHEST 2 VW 2020-02-20 22:20:53 Hudson Santamaria [facility] CT HEAD WO CONTRAST 2020-02-20 22:18:00 Hudson Santamaria [facility] NOTICE OF PRIVACY 2020-02-20 22:13:06 Doctor [facility]igned[facility] LIPASE 2020-02-20 22:05:00 Hudson Santamaria [facility] MAGNESIUM 2020-02-20 22:05:00 Geno Montenegro [facility] AMMONIA, PLASMA 2020-02-20 22:05:00 Hudson Santamaria [facility] TROPONIN I 2020-02-20 22:05:00 Hudson Santamaria [facility] COMP. METABOLIC PANEL 2020-02-20 22:05:00 Hudson Santmaaria [facility] ([id number]) [facility] LIPID PANEL ([id number])(TOTAL 2020-02-20 22:05:00 Geno Montenegro [facility] CHOLESTEROL, [facility] TRIGLYCERIDES, HDL) CBC WITH DIFFERENTIAL 2020-02-20 22:05:00 Hudson Santamaria [facility] GLYCOSYLATED HEMOGLOBIN 2020-02-20 22:05:00 Geno Montenegro [facility] (A1C) [facility] URINALYSIS 2020-02-20 22:05:00 Hudson Santamaria [facility] EKG-12 LEAD 2020-02-20 21:52:17 Hudson Santamaria [facility] Plan of Care Planned Activity Planned Date Details Comments Source Future Scheduled 2024-05-[address] [facility] Test 00:00:00 [facility] (12+) [code = Tobacco Cessation Counseling and Screening (12+)] Future Scheduled 2024-05-[address] [facility] Test 00:00:00 [facility] Scre[facility] (12+) [code = Tobacco Cessation Counseling and Screening (12+)] Future Scheduled 2023-08-29 Screening for [facility] Test 17:57:12 malignant neoplasm of colon (procedure) [code = 845854142] Future Scheduled 2023-08-29 Screening for [facility] Test 17:57:12 malignant neoplasm of colon (procedure) [code = 598448936] Future Scheduled 2023-08-29 Screening for [facility] Test 17:57:12 malignant neoplasm of colon (procedure) [code = 203856270] Future Scheduled 2023-08-29 DIABETES: RETINAL EYE Me [facility] Test 17:57:12 EXAM [code = DIABETES: RETINAL EYE EXAM] Future Scheduled 2023-08-29 DIABETIC FOOT EXAM [facility] Test 17:57:12 [code = DIABETIC FOOT EXAM] Future Scheduled 2023-08-29 BREAST CANCER [facility] Test 17:57:12 SCREENING [code = BREAST CANCER SCREENING] Future Scheduled 2023-08-29 Screening for [facility] Test 17:57:12 malignant neoplasm of colon (procedure) [code = 406188262] Future Scheduled 2023-08-29 Screening for [facility] Test 17:57:12 malignant neoplasm of colon (procedure) [code = 441706817] Future Scheduled 2023-08-29 SHINGLES VACCINES (1 [facility] Test 17:57:12 of 2) [code = SHINGLES VACCINES (1 of 2)] Future Scheduled 2023-08-29 HEPATITIS B VACCINES Met [facility] Test 17:57:12 (1 of 3 - Risk 3-dose series) [code = HEPATITIS B VACCINES (1 of 3 - Risk 3-dose series)] Future Scheduled 2023-08-29 RSV VACCINES > 60 YR Met [facility] Test 17:57:12 (1 - 1-dose 60+ series) [code = RSV VACCINES > 60 YR (1 - 1-dose 60+ series)] Future Scheduled 2023-08-29 COVID-19 VACCINE (3 - Me [facility] Test 17:57:12 season) [code = COVID-19 VACCINE (3 - season)] Future Scheduled 2023-08-29 INFLUENZA VACCINE (#1) [facility] Test 17:57:12 [code = INFLUENZA VACCINE (#1)] Future Scheduled 2023-07-17 Influenza Vaccine (#1) [facility] 00:[facility]00 [code = Influenza Medical Ce nter Vaccine (#1)] Future Scheduled 2023-07-17 Influenza Vaccine (#1) [facility] 00:00:00 [code = Influenza Medical Ce nter Vaccine (#1)] Future Scheduled 2023-06-24 Screening for [facility] Test 10:18:26 malignant neoplasm of colon (procedure) [code = 096969668] Future Scheduled 2023-06-24 Screening for [facility] Test 10:18:26 malignant neoplasm of colon (procedure) [code = 860237199] Future Scheduled 2023-06-24 Screening for [facility] Test 10:18:26 malignant neoplasm of colon (procedure) [code = 417275424] Future Scheduled 2023-06-24 DIABETES: RETINAL EYE [facility] Test 10:18:26 EXAM [code = DIABETES: RETINAL EYE EXAM] Future Scheduled 2023-06-24 DIABETIC FOOT EXAM [facility] Test 10:18:26 [code = DIABETIC FOOT EXAM] Future Scheduled 2023-06-24 BREAST CANCER [facility] Test 10:18:26 SCREENING [code = BREAST CANCER SCREENING] Future Scheduled 2023-06-24 Screening for [facility] Test 10:18:26 malignant neoplasm of colon (procedure) [code = 596172181] Future Scheduled 2023-06-24 Screening for [facility] Test 10:18:26 malignant neoplasm of colon (procedure) [code = 051415786] Future Scheduled 2023-06-24 SHINGLES VACCINES (1 Met [facility] Test 10:18:26 of 2) [code = SHINGLES VACCINES (1 of 2)] Future Scheduled 2023-06-24 HEPATITIS B VACCINES Met [facility] Test 10:18:26 (1 of 3 - Risk 3-dose series) [code = HEPATITIS B VACCINES (1 of 3 - Risk 3-dose series)] Future Scheduled 2023-06-24 COVID-19 VACCINE (3 - [facility] Test 10:18:26 Moderna series) [code = COVID-19 VACCINE (3 - Moderna series)] Future Scheduled 2023-06-24 INFLUENZA VACCINE [facility] Test 10:18:26 [code = INFLUENZA VACCINE] Future Scheduled 2023-06-12 Screening for [facility] Test 13:10:15 malignant neoplasm of colon (procedure) [code = 926107545] Future Scheduled 2023-06-12 Screening for [facility] Test 13:10:15 malignant neoplasm of colon (procedure) [code = 082508429] Future Scheduled 2023-06-12 Screening for [facility] Test 13:10:15 malignant neoplasm of colon (procedure) [code = 287676823] Future Scheduled 2023-06-12 DIABETES: RETINAL EYE [facility] Test 13:10:15 EXAM [code = DIABETES: RETINAL EYE EXAM] Future Scheduled 2023-06-12 DIABETIC FOOT EXAM [facility] Test 13:10:15 [code = DIABETIC FOOT EXAM] Future Scheduled 2023-06-12 BREAST CANCER [facility] Test 13:10:15 SCREENING [code = BREAST CANCER SCREENING] Future Scheduled 2023-06-12 Screening for [facility] Test 13:10:15 malignant neoplasm of colon (procedure) [code = 106268194] Future Scheduled 2023-06-12 Screening for [facility] Test 13:10:15 malignant neoplasm of colon (procedure) [code = 601742250] Future Scheduled 2023-06-12 SHINGLES VACCINES (1 Met [facility] Test 13:10:15 of 2) [code = SHINGLES VACCINES (1 of 2)] Future Scheduled 2023-06-12 HEPATITIS B VACCINES Met [facility] Test 13:10:15 (1 of 3 - Risk 3-dose series) [code = HEPATITIS B VACCINES (1 of 3 - Risk 3-dose series)] Future Scheduled 2023-06-12 COVID-19 VACCINE (3 - [facility] Test 13:10:15 Moderna series) [code = COVID-19 VACCINE (3 - Moderna series)] Future Scheduled 2023-06-12 INFLUENZA VACCINE Method [facility] Test 13:10:15 [code = INFLUENZA VACCINE] Future Scheduled 2023-05-15 Screening for [facility] Test 11:51:09 malignant neoplasm of colon (procedure) [code = 349912377] Future Scheduled 2023-05-15 Screening for [facility] Test 11:51:09 malignant neoplasm of colon (procedure) [code = 940069254] Future Scheduled 2023-05-15 Screening for [facility] Test 11:51:09 malignant neoplasm of colon (procedure) [code = 151351084] Future Scheduled 2023-05-15 DIABETES: RETINAL EYE [facility] Test 11:51:09 EXAM [code = DIABETES: RETINAL EYE EXAM] Future Scheduled 2023-05-15 DIABETIC FOOT EXAM [facility] Test 11:51:09 [code = DIABETIC FOOT EXAM] Future Scheduled 2023-05-15 BREAST CANCER [facility] Test 11:51:09 SCREENING [code = BREAST CANCER SCREENING] Future Scheduled 2023-05-15 Screening for [facility] Test 11:51:09 malignant neoplasm of colon (procedure) [code = 224603380] Future Scheduled 2023-05-15 Screening for [facility] Test 11:51:09 malignant neoplasm of colon (procedure) [code = 252368298] Future Scheduled 2023-05-15 SHINGLES VACCINES (1 Met [facility] Test 11:51:09 of 2) [code = SHINGLES VACCINES (1 of 2)] Future Scheduled 2023-05-15 HEPATITIS B VACCINES Met [facility] Test 11:51:09 (1 of 3 - Risk 3-dose series) [code = HEPATITIS B VACCINES (1 of 3 - Risk 3-dose series)] Future Scheduled 2023-05-15 COVID-19 VACCINE (3 - [facility] Test 11:51:09 Moderna series) [code = COVID-19 [...] RISK Medical C enter SCREENING] Future Scheduled 2022-11-[address] [...] - Booster for Moderna series)] Future Scheduled 2021-04-01 COVID-19 VACCINE (3 - [...] FIRST YEAR if no IPPE)] Future Scheduled 2016-11-[address] [facility] Test 00:00:00 WELLNESS (YEAR 2 or Medical Center FIRST YEAR if no IPPE) [code = MEDICARE ANNUAL WELLNESS (YEAR 2 or FIRST YEAR if no IPPE)] Future Scheduled 2000 SHINGLES VACCINES ([address] [facility] Test 00:00:00 of 2) [code = SHINGLES Medic al Center VACCINES (1 of 2)] Future Scheduled 2000 SHINGLES VACCINES ([address] [facility] Test 00:00:00 of 2) [code = SHINGLES Medic al Center VACCINES (1 of 2)] Future Scheduled 1969 DTAP/TDAP/TD [facility]ACCINES [facility] Test 00:00:00 (1 - Tdap) [code = Medical C enter DTAP/TDAP/TD VACCINES (1 - Tdap)] Future Scheduled 1969 DTAP/TDAP/TD [facility]ACCINES [facility] Test 00:00:00 (1 - Tdap) [code = Medical C enter DTAP/TDAP/TD VACCINES (1 - Tdap)] Future Scheduled [address] [facility] Test 00:00:00 malignant neoplasm of Medica l Center breast (procedure) [code = 311189093] Future Scheduled [address] [facility] Test 00:00:00 (combo) [code = CT Medical C enter Colonography (combo)] Future Scheduled [address] [facility] Test 00:00:00 malignant neoplasm of Medica l Center colon (procedure) [code = 258111188] Future Scheduled [address] [facility] Test 00:00:00 malignant neoplasm of Medica l Center colon (procedure) [code = 314203775] Future Scheduled 1950 DXA SCAN [code = DXA [facility] Test 00:00:00 SCAN] [facility] Future Scheduled [address] [facility] Test 00:00:00 malignant neoplasm of Medica l Center colon (procedure) [code = 891900361] Future Scheduled [address] [facility] Test 00:00:00 malignant neoplasm of Medica l Center colon (procedure) [code = 393637259] Future Scheduled 1950 Sigmoidoscopy [code = [facility] 00:[facility] Sigmoidoscopy] [facility] Future Scheduled [address] [facility] Test 00:00:00 malignant neoplasm of Medica l Center colon (procedure) [code = 587304520] Future Scheduled [address] [facility] Test 00:00:00 malignant neoplasm of Medica l Center colon (procedure) [code = 752250718] Future Scheduled 1950 DXA SCAN [code = DXA [facility] Test 00:00:00 SCAN] [facility] Future Scheduled [address] [facility] Test 00:00:00 malignant neoplasm of Medica l Center colon (procedure) [code = 524227700] Future Scheduled [address] [facility] Test 00:00:00 malignant neoplasm of Medica l Center colon (procedure) [code = 224782358] Future Scheduled 1950 Sigmoidoscopy [code = [facility] 00:00:[facility] S[facility]oidoscopy] [facility] Future Scheduled [address] [facility] Test 00:00:00 malignant neoplasm of Medica [facility] breast (procedure) [code = 446384090] Future Scheduled [address] [facility] Test 00:00:00 (combo) [code = CT Medical C enter Colonography (combo)] Encounters Start End Encounter Admission Attending Care Care Encounter Source Date/Time Date/Time Type Type Clinicians Facility Department ID 2023-07-30 Outpatient Led[facility], [facility] [id number] Common 13:27:01 Jacek [id number] [facility] 2023-06-24 Outpatient ER ADIO, [facility] Internal [id number] [facility] 2023-06-16 Out[facility] Ledesma, [facility] [id number] Common 11:16:00 Jacek [id number] [facility] 2023-05-26 Outpatient Ledesma, [facility] [id number] Common 14:43:00 Jacek [id number] [facility] 2023-05-12 Outpatient Ledesma, [facility] [id number] Common 07:33:00 Jacek [id number] [facility] 2022-09-19 Outpatient Ledesma, [facility] [id number] Common 10:51:03 Jacek [id number] [facility] 2022-06-23 Outpatient Ledesma, [facility] [id number] Common 10:57:01 Jacek [id number] [facility] 2022-06-05 Outpatient Ledesma, [facility] [id number] Common 11:06:02 Jacek [id number] [facility] 2022-05-21 Outpatient Ledesma, [facility] Common 13:20:02 Jacek [facility] 2021-12-11 Outpatient Ledemsa, [facility] Common 13:53:57 Jacek [id number] [facility] 2021-12-11 Outpatient Ledesma, [facility] Common 13:09:15 Jacek [id number] [facility] 2021-12-11 Outpatient Ledesma, [facility] Common 13:08:13 Jacek [id number] [facility] 2021-12-11 Outpatient Ledesma, [facility] Common 12:48:42 Jacek [id number] [facility] 2021-12-11 Outpatient Ledesma, [facility] Common 12:47:29 Jacek [id number] [facility] 2021-12-11 Outpatient Ledesma, [facility] Common 12:38:39 Jacek [id number] [facility] 2021-12-11 Outpatient Ledesma, [facility] Common 12:38:12 Jacek [id number] [facility] 2021-02-15 Inpatient [facility] [id number] [facility] 12:37:31 89 [facility] 2023-08-27 2023-08-27 [facility], 1.2.840.1 [id number] 2 [id number] Methodi 15:00:00 23:59:00 Encounter Nabeel 04292.1.[address] 3.430.2.7 Hospit a .3.263385 l .8 2023-08-27 2023-08-27 Nutrition 1.2.840.1 [id number] [id number] Methodi 14:00:00 15:00:[address] 3.430.2.7 Hospit a .3.122350 l .8 2023-08-27 2023-08-27 [facility], 1.2.840.1 [id number] 21 [id number] Methodi 13:15:00 13:30:00 Visit Nabeel 99136.1.[address] 3.430.2.7 Hospit a .3.552189 l .8 2023-08-27 2023-08-27 Outpatient SALINAS, [facility] [id number] [place] 00:00:00 00:00:00 NABEEL [address] 2023-08-27 2023-08-27 Outpatient SALINAS, [facility] [id number] [place] 00:00:00 00:00:00 NABEEL [address] 2023-08-27 2023-08-27 Outpatient [facility] [id number] [place] 00:00:00 00:00:[address] 2023-08-27 2023-08-27 Outpatient SALINAS, [facility] [id number] [place] 00:00:00 00:00:00 NABEEL [address] 2023-08-21 2023-08-21 Orders Egwim, 1.2.840.1 [id number] Methodi 00:00:00 00:00:00 [place] [address].1.[address] 3.430.2.7 Hospit a .3.815539 l .8 2023-08-13 2023-08-13 Orders [place], 1.2.840.1 [id number] 69535 Methodi 00:00:00 00:00:00 Only Rufino 08103.1.[address] 3.430.2.7 Hospit a .3.154150 l .8 2023-07-24 2023-07-24 Orders Egwim, 1.2.840.1 [id number] 6620 Methodi 00:00:00 00:00:00 Only [place]. 86084.1.[address] 3.430.2.7 Hospit a .3.569383 l .8 2023-07-23 2023-07-23 Documentat [place], 1.2.840.1 [id number] 21 [id number] Methodi 00:00:00 00:00:00 ion Rufino 02586.1.[address] 3.430.2.7 Hospit a .3.794751 l .8 2023-06-29 2023-06-29 Telephone SilvianominEdison, 1.2.840.1 [id number] Methodi 11:30:00 11:45:00 Consult Nabeel 03072.1.[address] 3.430.2.7 Hospit a .3.046497 l .8 2023-06-29 2023-06-29 Outpatient SALINAS, [facility] [id number] [place] 00:00:00 00:00:00 NABEEL [address] 2023-06-24 2023-06-24 Telephone 1.2.840.1 [id number] 2100 [id number] Methodi 10:00:00 10:15:[address] 3.430.2.7 Hospit a .3.446627 l .8 2023-06-24 2023-06-24 [facility] [id number] 00:00[facility]00 00:00:00 [facility] 2023-06-24 2023-06-24 Telephone 1.2.840.1 [id number] [id number] [place] 00:00:00 00:00:00 Consult 44666.1.1 [address] .3.971172 .8 2023-06-15 2023-06-15 Office Sadaf 1.2.840.9 [id number] 96164 81616 Methodi 14:15:00 15:04:40 Visit Praveen Rosas 89714.1.1 961 s t 3.430.2.7 Hospit a .3.871164 l .8 2023-06-15 2023-06-15 Office Sadaf 1.2.840.7 [id number] 37201 64953 Methodi 14:15:00 15:04:40 Visit Praveen Rosas 09249.1.1 961 s t 3.430.2.7 Hospit a .3.540272 l .8 2023-06-15 2023-06-15 Telephone Murphy, 1.2.840.1 [id number] [id number] Methodi 00:00:00 00:00:[address] 3.430.2.7 Hospit a .3.379629 l .8 2023-06-15 2023-06-15 Telephone Murphy, 1.2.840.1 [id number] 828 [id number] Methodi 00:00:00 00:00:[address] 3.430.2.7 Hospit a .3.562117 l .8 2023-06-14 2023-06-14 Refill Betina 1.2.840.1 [id number] 0250 Methodi 00:00:00 00:00:00 Del Castillo, 78046.1.[address] Connisha 3.430.2.7 Hospi ta .3.490304 l .8 2023-06-14 2023-06-14 Refill Betina 1.2.840.1 [id number] 960998 8958 Methodi 00:00:00 00:00:00 Del Castillo, 91968.1.[address] [facility] Hospi ta .3.168764 l .8 2023-05-28 2023-05-28 [facility], 1.2.840.1 [id number] 2 [id number] Methodi 11:00:56 23:59:00 Encounter Nabeel 27518.1.[address] 3.430.2.7 Hospit a .3.461956 l .8 2023-05-28 2023-05-28 Office Egwim, 1.2.840.1 [id number] 6355 Methodi 15:00:00 15:15:00 [place]. [address]01.1.[address] 3.430.2.7 Hospit a .3.252876 l .8 2023-05-28 2023-05-28 Office Egwim, 1.2.840.1 [id number] 980280 6804 Methodi 15:00:00 15:15:00 [place]. [address].1.[address] 3.430.2.7 Hospit a .3.730322 l .8 2023-05-28 2023-05-28 [facility], 1.2.840.1 [id number] 2 [id number] Methodi 09:51:07 10:59:00 Encounter Nabeel 01213.1.[address] 3.430.2.7 Hospit a .3.025107 l .8 2023-05-28 2023-05-28 Outpatient [facility] [id number] [place] 00:00:00 00:00:00 NABEEL [address] 2023-05-28 2023-05-28 [facility], 1.2.840.1 [id number] 2 [id number] [place] 00:00:00 00:00:00 Encounter NABEEL 81652.1.1 [address] .3.563102 .8 2023-05-28 2023-05-28 [facility], 1.2.840.1 [id number] 2 [id number] [place] 00:00:00 00:00:00 Encounter NABEEL 15861.1.1 [address] .3.413109 .8 2023-05-28 2023-05-28 Outpatient [facility], [facility] [id number] [place] 00:00:00 00:00:00 MICHELLALESIA [address] 2023-05-15 2023-05-18 Inpatient ER ROEL RAI Gastro [id number] [facility] 20:05:00 11:38:00 [place] 2023-05-15 2023-05-18 [facility] [id number] 20:05:00 11:38:00 Encounter Harrison Gallego, [facility] 2023-05-15 2023-05-18 [facility] [id number] 20:05:00 11:38:00 Encounter Harrison Gallego, [facility] 2023-05-16 2023-05-16 Anesthesia Karan Lopes [facility] [id number] 12:53:00 13:37:00 Event Wilmer Sandoval [facility] 2023-05-16 2023-05-16 Anesthesia Karan Lopes [facility] [id number] 12:53:00 13:37:00 Event Wilmer Sandoval [facility] 2023-05-16 2023-05-16 Surgery Sheikh [facility] [id number] 11:00:00 11:59:00 [facility] 2023-05-16 2023-05-16 [facility] [id number] 11:00:00 11:59:00 [facility] 2023-04-08 2023-04-08 Orders Jerry, 1.2.840.1 [id number] 98564 Methodi 00:00:00 00:00:00 Only Rufino 13649.1.[address] 3.430.2.7 Hospit a .3.248994 l .8 2023-04-08 2023-04-08 [facility] [id number] 04844 [place] 00:00:00 00:00:00 CHRISTIANO [address] 2023-04-08 2023-04-08 Orders Jerry, 1.2.840.1 [id number] 01316 Methodi 00:00:00 00:00:00 Only Rufino 31610.1.[address] 3.430.2.7 Hospit a .3.445112 l .8 2023-03-06 2023-03-06 Telephone Manny 1.2.840.4 [id number] Methodi 00:00:00 00:00:[address] 3.430.2.7 Hospit a .3.737167 l .8 2023-03-06 2023-03-06 Telephone Manny 1.2.840.6 [id number] 378 [id number] Methodi 00:00:00 00:00:[address] 3.430.2.7 Hospit a .3.182642 l .8 2022-12-11 2022-12-11 [facility], 1.2.840.1 [id number] 2 [id number] Methodi 10:27:30 23:59:00 Encounter Nabeel [address]243.1.[address] 3.430.2.7 Hospit a .3.084474 l .8 2022-12-11 2022-12-11 [facility], 1.2.840.1 [id number] 2 [id number] Methodi 10:27:30 23:59:00 Encounter Nabeel 59513.1.[address] 3.430.2.7 Hospit a .3.137060 l .8 2022-12-11 2022-12-11 Office Egwim, 1.2.840.1 [id number] 3169 Methodi 15:00:00 15:15:00 Visit Sharron Correa 46842.1.[address] 3.430.2.7 Hospit a .3.697754 l .8 2022-12-11 2022-12-11 Office Egwim, 1.2.840.1 [id number] 7692 Methodi 15:00:00 15:15:00 Visit Sharron Rogers. 14667.1.[address] 3.430.2.7 Hospit a .3.048078 l .8 2022-12-11 2022-12-11 [facility], 1.2.840.1 [id number] 2 [id number] Methodi 08:44:26 10:26:00 Encounter Nabeel 74810.1.[address] 3.430.2.7 Hospit a .3.881562 l .8 2022-12-11 2022-12-11 [facility], 1.2.840.1 [id number] 2 [id number] Methodi 08:44:26 10:26:00 Encounter Nabeel 10747.1.[address] 3.430.2.7 Hospit a .3.750220 l .8 2022-12-11 2022-12-11 Travel 1.2.840.1 1.2.572.610 6719 093528 Methodi 00:00:00 00:00:[address] 3.430.2.7 0.2.7.3.698 Ho spita .3.838865 084.8 l .8 2022-12-11 2022-12-11 [facility] [id number] [place] 00:00:00 00:00:00 NABEEL [address] 2022-12-11 2022-12-11 Travel 1.2.840.1 1.2.784.841 7204 666363 Methodi 00:00:00 00:00:[address] 3.430.2.7 0.2.7.3.698 Ho spita .3.889619 084.8 l .8 2022-11-26 2022-11-26 (TEL) [facility]C [facility] [id number] Co mmon 00:00:00 00:00:00 [facility] 2022-11-24 2022-11-24 Telephone Watt, 1.2.840.1 [id number] 21 [id number] Methodi 00:00:00 00:00:[address] 3.430.2.7 Hospit a .3.171216 l .8 2022-11-24 2022-11-24 Telephone Watt, 1.2.840.1 [id number] Methodi 00:00:00 00:00:[address] 3.430.2.7 Hospit a .3.326221 l .8 2022-11-24 2022-11-24 Telephone Watt, 1.2.840.1 [id number] Methodi 00:00:00 00:00:[address] 3.430.2.7 Hospit a .3.004801 l .8 2022-11-24 2022-11-24 Telephone Watt, 1.2.840.1 [id number] 21 [id number] Methodi 00:00:00 00:00:[address] 3.430.2.7 Hospit a .3.961769 l .8 2022-10-02 2022-10-02 Telephone [place], 1.2.840.1 [id number] 2099 [id number] Methodi 00:00:00 00:00:[address] 3.430.2.7 Hospit a .3.851495 l .8 2022-10-02 2022-10-02 Telephone [place], 1.2.840.1 [id number] 2099 625812 Methodi 00:00:00 00:00:[address] 3.430.2.7 Hospit a .3.045783 l .8 2022-10-01 2022-10-01 (TEL) [facility] [id number] Co mmon 00:00:00 00:00:00 [facility] 2022-09-26 2022-09-26 Orders [place], 1.2.840.1 [id number] 85178 Methodi 00:00:00 00:00:00 Only Rufino 72587.1.[address] 3.430.2.7 Hospit a .3.737245 l .8 2022-09-26 2022-09-26 Orders [place], 1.2.840.1 [id number] 52591 87582 Methodi 00:00:00 00:00:00 Only Rufino 36549.1.[address] 3.430.2.7 Hospit a .3.081774 l .8 2022-09-26 2022-09-26 (TEL) [facility] [id number] Co mmon 00:00:00 00:00:00 [facility] 2022-09-23 2022-09-23 [facility]ICE [facility] [id number] Co mmon 00:00:00 00:00:00 VISIT Spirit ESTAB PT - CHI LEVEL 4 [facility] 2022-09-18 2022-09-18 (TEL) STLMLC STLMLC [id number] Co mmon 00:00:00 00:00:00 [facility] 2022-08-16 2022-08-16 Orders [place], 1.2.840.1 [id number] 79272 Methodi 00:00:00 00:00:00 Only Rufino 78560.1.[address] 3.430.2.7 Hospit a .3.918576 l .8 2022-08-13 2022-08-13 Orders [place], 1.2.840.1 [id number] 43508 08146 Methodi 00:00:00 00:00:00 Only Rufino 54760.1.[address] 3.430.2.7 Hospit a .3.982898 l .8 2022-06-24 2022-06-24 OFFICE STLMLC STL[facility]C [id number] Co mmon 00:00:00 00:00:00 VISIT Spirit ESTAB PT - CHI LEVEL 4 [facility] 2022-06-24 2022-06-24 (TEL) STLMLC STLMLC [id number] Co mmon 00:00:00 00:00:00 [facility] 2022-06-05 2022-06-05 [facility] 943 90 [facility] 02:44:00 02:44:00 RAJANI 0721 da [facility] 2022-05-21 2022-05-21 (TEL) STLMLC STLMLC [id number] Co mmon 00:00:00 00:00:00 [facility] 2022-05-21 2022-05-21 OFFICE STLMLC STLMLC [id number] Co mmon 00:00:00 00:00:00 VISIT EST Spir it PT LEVEL 3 - CHI [facility] 2022-05-15 2022-05-15 [facility], 1.2.840.1 [id number] 2 [id number] Methodi 14:00:00 23:59:00 Encounter Nabeel 78977.1.[address] 3.430.2.7 Hospit a .3.136995 l .8 2022-05-15 2022-05-15 [facility], 1.2.840.1 [id number] 2 [id number] Methodi 09:16:20 13:59:00 Encounter Nabeel 57171.1.[address] 3.430.2.7 Hospit a .3.402768 l .8 2022-05-15 2022-05-15 Office Chantell, 1.2.840.1 [id number] 3076 Methodi 13:15:00 13:30:00 Visit Sharron Correa 57445.1.[address] 3.430.2.7 Hospit a .3.477093 l .8 2022-05-15 2022-05-15 Outpatient [facility] [id number] [place] 00:00:00 00:00:00 NABEEL [address] 2022-05-15 2022-05-15 Travel 1.2.840.1 1.2.824.288 4507 438062 Methodi 00:00:00 00:00:[address] 3.430.2.7 0.2.7.3.698 Ho spita .3.141564 084.8 l .8 2022-03-25 2022-03-25 OFFICE [facility] STLC [id number] Co mmon 00:00:00 00:00:00 VISIT Spirit ESTAB PT - CHI LEVEL 4 [facility] 2022-03-25 2022-03-25 SUB ANNUAL STLC STLC [id number] Common 00:00:00 00:00:00 MCR Spirit WELLNESS - CHI VISIT [facility] 2022-02-06 2022-02-06 (TEL) STLC STLC [id number] Co mmon 00:00:00 00:00:00 Spirit - CHI [facility] 2022-01-27 2022-01-27 Outpatient [facility] [id number] [place] 00:00:00 00:00:00 SAMIRA [address] 2022-01-02 2022-01-02 Outpatient EGWIM, [facility] [id number] 545 [place] 00:00:00 00:00:00 CHUKWUMA [address] 2022-01-02 2022-01-02 Outpatient EGWIM, [facility] [id number] 545 [place] 00:00:00 00:00:00 [place]MA [address] 2022-01-02 2022-01-02 Outpatient ANKOMA-SEY, [facility] 102 [id number] [place] 00:00:00 00:00:00 NABEEL 509 Method i 2021-11-05 2021-11-05 OFFICE STLMLC STLMLC [id number] Co mmon 00:00:00 00:00:00 VISIT [facility] - [facility] LEVEL 4 [facility] 2021-11-04 2021-11-04 (TEL) STLMLC STLMLC [id number] Co mmon 00:00:00 00:00:00 [facility] 2021-10-04 2021-10-04 Outpatient JEN, [facility] [id number] [place] 00:00:00 00:00:00 AKASH 137 [facility] 2021-09-30 2021-09-30 Outpatient FARIBA, [facility] [id number] [place] 00:00:00 00:00:00 IMAD [address] 2021-09-30 2021-09-30 Outpatient FARIBA, [facility] [id number] [place] 00:00:00 00:00:00 IMAD 097 [facility] 2021-09-23 2021-09-23 (TEL) STLMLC STLMLC [id number] [facility] 00:00:00 00:00:00 [facility] 2021-09-17 2021-09-17 (TEL) STLMLC STLMLC [id number] [facility] m[facility] 00:00:00 00:00:00 [facility] 2021-09-16 2021-09-16 (TEL) STLMLC STLMLC [id number] Co mmon 00:00:00 00:00:00 [facility] 2021-09-10 2021-09-10 Outpatient SHERICE, [facility] H [id number] [place] 00:00:00 00:00:00 RAFIK [address] 2021-09-10 2021-09-10 Outpatient SHERICE, [facility] [id number] [place] 00:00:00 00:00:00 RAFIK [address] 2021-09-10 2021-09-10 Outpatient SHERICE, [facility] H [id number] [place] 00:00:00 00:00:00 RAFIK [address] 2021-09-10 2021-09-10 Outpatient SHERICE, [facility] H [id number] [place] 00:00:00 00:00:00 RAFIK [address] 2021-09-10 2021-09-10 Outpatient SHERICE, [facility] [id number] [place] 00:00:00 00:00:00 RAFIK [address] 2021-09-10 2021-09-10 Outpatient SHERICE, [facility] [id number] [place] 00:00:00 00:00:00 RAFIK [address] 2021-09-09 2021-09-09 Outpatient SHERICE, [facility] H [id number] [place] 00:00:00 00:00:00 RAFIK [address] 2021-09-09 2021-09-09 Outpatient SHERICE, [facility] H [id number] [place] 00:00:00 00:00:00 RAFIK [address] 2021-09-09 2021-09-09 Outpatient SHERICE, [facility] H [id number] [place] 00:00:00 00:00:00 RAFIK [address] 2021-09-09 2021-09-09 Outpatient SHERICE, [facility] H [id number] [place] 00:00:00 00:00:00 RAFIK [address] 2021-09-09 2021-09-09 Outpatient SHERICE, [facility] H [id number] [place] 00:00:00 00:00:00 CHRISTIANOIK [address] 2021-09-09 2021-09-09 Outpatient SHERICE, [facility] [id number] [place] 00:00:00 00:00:00 RAFIK 616 [facility] 2021-09-09 2021-09-09 Outpatient SHERICE, [facility] [id number] [place] 00:00:00 00:00:00 RAFIK 619 [facility] 2021-09-09 2021-09-09 Outpatient SHERICE, [facility] [id number] [place] 00:00:00 00:00:00 RAFIK 622 [facility] 2021-09-09 2021-09-09 Outpatient SHERICE, [facility] [id number] [place] 00:00:00 00:00:00 RAFIK 446 [facility] 2021-09-02 2021-09-02 (TEL) STLMLC STLMLC [id number] [facility] 00:00:00 00:00:00 [facility] 2021-08-13 2021-08-13 OFFICE STLMLC STLMLC [id number] [facility] m[facility] 00:00:00 00:00:00 VISIT [facility] - [facility] LEVEL 4 [facility] 2021-05-30 2021-05-30 Outpatient R [facility] [id number] [facility] 10:00:00 10:00:00 CATRACHO Henry f [facility] 2021-05-27 2021-05-27 [facility] [id number] Univers 08:14:50 23:59:00 Encounter Catracho henry [id number] [facility] [place] [id number] [facility] [id number] [facility] [address] 2021-05-27 2021-05-27 Senior [employer] Engineer Juan, [facility] [id number] Univers 09:25:57 09:40:57 Visit Dez Abrams 350.1.13.10 ity of [place] 4.2.7.2.686 [facility] [phone] N[place] dical nal [address] [facility] 2021-05-27 2021-05-27 Outpatient R [facility] [id number] Univers 09:00:00 09:00:00 CATRACHO Henry o f [facility] 2021-05-27 2021-05-27 Nurse 1, Adc Infusion Chair [facility] 1.2. 840.114 [id number] Univers 07:47:38 08:47:38 Visit Catracho Thornton 350.1.1 3.10 [place] [phone] [place] [address] [place] 2021-05-14 2021-05-14 Outpatient STLMLC STLMLC [id number] Common 00:00:00 00:00:00 [facility] 2021-05-14 2021-05-14 Outpatient STLMLC STLMLC [id number] Common 00:00:00 00:00:00 [facility] 2021-05-02 2021-05-02 [facility] 1.2.840.114 [id number] Univers 08:50:45 23:59:00 Encounter Catracho henry 350.1.13.10 [place] [phone] [facility] 806 [place] 2021-05-02 2021-05-02 Nurse 1, Adc Infusion Chair [facility] 1.2. 840.114 [id number] Univers 10:03:38 10:33:38 Visit Catracho Thornton 350.1.1 3.10 [place] [phone] [place] [address] Branch 2021-05-02 2021-05-02 Senior Linux Unix Engineer Juan, Adc Lab Main [facility] 1.2.8 40.114 [id number] Univers 10:18:06 10:33:06 Visit Catracho Thornton 350.1.1 3.10 [place] [phone] [place] dic[address] 2021-05-02 2021-05-02 Outpatient R [facility] [id number] Univers 10:00:00 10:00:00 CATRACHO Henry mable chapin priscila [facility] 2021-04-11 2021-04-11 Outpatient STLMLC STLMLC [id number] Common 00:00:00 00:00:00 [facility] 2021-04-11 2021-04-11 Outpatient STLMLC STLMLC [id number] Common 00:00:00 00:00:00 [facility] 2021-03-28 2021-03-28 Outpatient R [facility] [id number] Univers 08:45:11 23:59:00 Carl BRIWISAM mable chapin priscila [facility] 2021-03-28 2021-03-28 [facility] 1.2.840.114 [id number] Univers 08:45:11 23:59:00 Encounter Catracho henry 350.1.13.10 [place] [phone] [facility] 806 [place] 2021-03-28 2021-03-28 Senior Linux Unix Engineer Juan, Adc Lab Main [facility] 1.2.8 40.114 [id number] Univers 10:30:35 10:45:35 Visit Catracoh Thornton 350.1.1 3.10 [place] [phone] [place] dical [facility] 353 [facility] 2021-03-28 2021-03-28 Nurse 1, Adc Infusion Nurse [facility] 1.2. 840.114 [id number] Univers 08:45:52 09:15:52 Visit Catracho Thornton 350.1.1 3.10 [place] [phone] [facility] [address] 2021-03-28 2021-03-28 Orders Doctor OLAMIDE 1.2.840.114 [id number] Univers 00:00:00 00:00:00 Only Unassigned, RAFFY 350.1.13.10 ity of [place] [address]2.686 Dimitrios as [phone] [facility] [address] 2021-03-21 2021-03-21 Orders Doctor OLAMIDE 1.2.840.114 [id number] Univers 00:00:00 00:00:00 Only Unassigned, RAFFY 350.1.13.10 ity of [place] [address]2.686 Dimitrios as [phone] [facility] [address] 2021-03-07 2021-03-07 Outpatient STLMLC STLMLC [id number] Common 00:00:00 00:00:00 [facility] 2021-03-04 2021-03-04 Outpatient STLMLC STLMLC [id number] Common 00:00:00 00:00:00 [facility] 2021-03-04 2021-03-04 Outpatient STLMLC STLMLC [id number] Common 00:00:00 00:00:00 [facility] 2021-02-20 2021-02-20 Outpatient STLMLC STLMLC [id number] Common 00:00:00 00:00:00 [facility] 2021-02-14 2021-02-14 Outpatient STLMLC STLMLC [id number] Common 00:00:00 00:00:00 [facility] 2021-01-29 2021-01-29 [facility] 1.2.840.114 [id number] [facility] 10:00:00 23:59:00 Encounter Catracoh henry 350.1.13.10 ity of [place] 4.2.7.2.686 [facility] [phone] [facility] 8[address] 2021-01-29 2021-01-29 [facility] 1.2.840.114 [id number] 10:00:00 23:59:00 Encounter Catracho henry 350.1.13.10 [place] 4.2.7.2.686 [place] [id number] 806 2021-01-29 2021-01-29 Nurse 1, Adc Infusion Chair [facility] 1.2. 840.114 [id number] Univers 11:42:41 12:42:41 Visit [place] Catracho Ratliff 350.1.1 3.10 it[place]2.[place] [phone] [place] [address] [place] 2021-01-29 2021-01-29 Nurse 1, [facility] 1.2.840.114 [id number] 11:42:41 12:42:41 Visit Infusion Evy 350.1.13.10 Chair [place] 4.2.7.2.686 Surgical [phone] [place] [address] 2021-01-29 2021-01-29 Senior Linux Unix Engineer Juan, [facility] Lab Main [facility] 1.2.8 40.114 [id number] [facility] 11:59:37 12:14:37 Visit [place] Catracho Ratliff 350.1.1 3.10 it[place] of [place] 4.2.7.2.[place] [phone] N[place] dical [address] 2021-01-29 2021-01-29 Senior Linux Unix Engineer Juan, [facility] 1.2.840.114 [id number] 11:59:37 12:14:37 Visit Lab Main Evy 350.1.13.10 [place] 4.2.7.2.686 Professio [phone] [address] 2021-01-29 2021-01-29 Outpatient R [facility] [id number] Univers 11:00:00 11:00:00 ity of [facility] 2021-01-29 2021-01-29 Orders Doctor QUIÑONEZ 1.2.840.114 [id number] Univers 00:00:00 00:00:00 Only Unassigned, RAFFY 350.1.13.10 ity of [place] [facility] 4.2.7.2.686 Dimitrios as [phone] [address] 2021-01-29 2021-01-29 Orders Doctor OLAMIDE 1.2.840.114 [id number] 00:00:00 00:00:00 Only Unassigned, RAFFY 350.1.13.10 [place] [facility] 4.2.7.2.686 [id number] [facility] 2021-01-22 2021-01-22 Outpatient STLMLC STLMLC [id number] Common 00:00:00 00:00:00 [facility] 2021-01-07 2021-01-07 Outpatient R [facility] [id number] Univers 00:00:00 00:00:00 BRI HenryWISAM akins o f [facility] 2021-01-03 2021-01-03 Outpatient R [facility] [id number] Univers 11:47:32 23:59:00 ECATRACHO mable o f [facility] 2021-01-03 2021-01-03 [facility] 1.2.840.114 [id number] Univers 11:30:00 23:59:00 Encounter Catracho henry 350.1.13.10 ity of [place]2.[place] [phone] [place] 342376 [place] 2021-01-03 2021-01-03 [facility] 1.2.840.114 [id number] 11:30:00 23:59:00 Encounter Catracho henryton 350.1.13.10 [place] 4.2.7.2.686 [place] [id number] 806 2021-01-03 2021-01-03 Nurse 1, Adc Infusion Chair [facility] 1.2. 840.114 [id number] Univers 13:06:59 14:06:59 Visit Catracho Thornton 350.1.1 3.10 [place] of [place] [phone] [facility] 053 [address] 2021-01-03 2021-01-03 Nurse 1, Adc [facility] 1.2.840.114 [id number] 13:06:59 14:06:59 Visit Infusion [place] 350.1.13.10 Chair [place] 4.2.7.2.686 Surgical [id number] [place] 05 2021-01-03 2021-01-03 Senior Linux Unix Engineer Juan, Adc Lab Main [facility] 1.2.8 40.114 [id number] Univers 13:43:10 13:58:10 Visit Catracho Thornton Evy 350.1.1 3.10 it[place] of [place] 4[place]2.[place].2.[place] [phone] [place] dical [facility] 353 [facility] 2021-01-03 2021-01-03 Senior Linux Unix Engineer Kory Martinez [facility] 1.2.840.114 [id number] 13:43:10 13:58:10 Visit Lab Main Evy 350.1.13.10 [place] 4.2.7.2.686 Professio [phone] [address] 2021-01-03 2021-01-03 Orders Doctor QUIÑONEZ 1.2.840.114 [id number] Univers 00:00:00 00:00:00 Only Unassigned, RAFFY 350.1.13.10 ity of [place] [facility] 4.2.7.2.686 Dimitrios as [phone] [address] 2021-01-03 2021-01-03 Orders Doctor QUIÑONEZ 1.2.840.114 [id number] 00:00:00 00:00:00 Only Unassigned, RAFFY 350.1.13.10 [place] [facility] 4.2.7.2.686 [id number] 009 2021-01-01 2021-01-01 Outpatient R [facility] [id number] [facility] 12:00:00 12:00:00 ity of [facility] 2020-12-25 2020-12-25 Orders Doctor OLAMIDE Kovacs.2.840.114 [id number] [facility] 00:00:00 00:00:00 Only Unassigned, RAFFY 350.1.13.10 ity of [place] [facility] 4.2.7.2.686 Dimitrios as [phone] [address] 2020-12-25 2020-12-25 Orders Doctor OLAMIDE Kovacs.2.840.114 [id number] 00:00:00 00:00:00 Only Unassigned, RAFFY 350.1.13.10 [place] [facility] 4.2.7.2.686 [id number] 009 2020-12-17 2020-12-17 Outpatient R [facility] [id number] [facility] 00:00:00 00:00:00 Carl CATRACHO chapin f [facility] 2020-11-19 2020-11-19 Outpatient R [facility] [id number] Univers 12:51:09 23:59:00 E CATRACHO akins o f [facility] 2020-11-19 2020-11-19 [facility] 1.2.840.114 [id number] Univers 12:51:09 23:59:00 Encounter e, Nizar C SPECIALTY 350.1.13.10 [place] [id number] [address] 2020-11-19 2020-11-19 [facility] 1.2.840.114 [id number] 12:51:09 23:59:00 Encounter e, Nizar C SPECIALTY 350.1.13.10 CARE 4.2.7.2.686 CENTER AT [id number] [address] 2020-10-22 2020-10-22 [facility] 1.2.840.114 [id number] Univers 12:49:53 23:59:00 Encounter e, Nizar C SPECIALTY 350.1.13.10 [place] [id number] [address] 2020-10-22 2020-10-22 [facility] 1.2.840.114 [id number] 12:49:53 23:59:00 Encounter e, Nizar C SPECIALTY 350.1.13.10 CARE 4.2.7.2.686 CENTER AT [id number] [address] 2020-10-22 2020-10-22 Outpatient R [facility] [id number] Univers 00:00:00 00:00:00 CATRACHO Henry [facility] 2020-10-02 2020-10-02 Outpatient R [facility] [id number] Univers 10:00:00 10:00:00 CATRACHO Henry f [facility] 2020-10-02 2020-10-02 Senior Linux Unix Engineer 2, Adc Lab [facility] 1.2.840.114 [id number] Univers 09:07:59 09:22:59 Visit Catracho Thornton 350.1.1 3.10 it[place] of [place]2.[place].2.[place] [phone] N[place] dical [address] 2020-10-02 2020-10-02 Senior Linux Unix Engineer 2, Adc Lab [facility] 1.2.840.114 [id number] 09:07:59 09:22:59 Visit Evy 350.1.13.10 [place] 4.2.7.2.686 Professio [phone] [address] 2020-10-02 2020-10-02 Orders Doctor QUIÑONEZ 1.2.840.114 [id number] Univers 00:00:00 00:00:00 Only Unassigned, RAFFY 350.1.13.10 ity of [place] [facility] 4.2.7.2.686 Dimitrios as [phone] [address] 2020-10-02 2020-10-02 Orders Doctor QUIÑONEZ 1.2.840.114 [id number] 00:00:00 00:00:00 Only Unassigned, RAFFY 350.1.13.10 [place] [facility] 4.2.7.2.686 [id number] [facility] 2020-03-21 2020-03-21 Orders Doctor QUIÑONEZ 1.2.840.114 [id number] Univers 00:00:00 00:00:00 Only Unassigned, RAFFY 350.1.13.10 ity of [place] [facility] 4.2.7.2.686 Dimitrios as [phone] [address] 2020-02-25 2020-02-25 [facility] [id number] Univers 06:23:55 10:13:00 MAVIS akins of [facility] 2020-02-25 2020-02-25 Emergency TonyRUST 1.2.434.061 [id number] Univers 06:23:55 10:13:00 Mavis Ratliff 350.1.13.10 ity of [place] [id number] [facility] [address] 2020-02-25 2020-02-25 Nurse OLAMIDE Pinedo 1.2.840.114 [id number] Univers 00:00:00 00:00:00 Triage Katlin AKBAR 350.1.13.10 it y of [facility] 4.2.7.2.686 Dimitrios as [id number] [facility] [address] 2020-02-23 2020-02-23 Transition Kenia Beltran 1.2.840.114 [id number] Univers 00:00:00 00:00:00 of Care Jade Salinas 350.1.13.10 i ty of [place] 4.2.7.2.686 [facility] [id number] [facility] [address] 2020-02-20 2020-02-22 Hospital Hudson Santamaria [facility] 1.2.840.11 [id number] Univers 16:43:26 11:11:00 Encounter Fausto Zuñiga 350.1.13.10 ity [facility] 4.2.7.2.686 [facility] [id number] [facility] 0[address] 2020-02-20 2020-02-22 Inpatient X FAUSTO ZUÑIGA [facility] REGINA [id number] Univers 16:43:26 11:11:[facility] Test Description Test Time Test Comments Results Result Comments Source Basic metabolic panel 2023-06-14 12:27:00 Test Item Value Reference Range Interpretation Comme nts Glucose (test code = 176 mg/dL 65-139 H Non-fa sting reference 2345-7) interval BUN (test code = 3094-0) 70 mg/dL 7-25 H Creatinine (test code = 2.37 mg/dL 0.60-1.00 H 2160-0) eGFR (test code = 23328-6) 21 See_Comment L T he eGFR is based on the CKD-EPI 202 1 equation. To ca lculate the new eGFR fr om a previous Creati nine or Cystatin Hayderul t, go to https://www.kid sheryl.org /professionals/ kdoqi/g fr%5Fcalculator [Automated mess age] The system eMarketer generated this result transmitted ref erence range: > OR = 6 0 mL/min/1.73m2. The reference range was not used to int erpret this result as normal/abnormal . BUN/creatinine ratio (test 30 See_Comment H [Automated message] code = 3097-3) The system wh ich generated this result transmitted ref erence range: 6 - 22 ( calc). The reference r glenn was not used to interpret this result as normal/abnor mal. Sodium (test code = 140 mmol/L 729-642 0812-2) Potassium (test code = 4.6 mmol/L 3.5-5.3 2823-3) Chloride (test code = 110 mmol/L 98-110 5-0) CO2 (test code = 2027-9) 25 mmol/L 20-32 Calcium (test code = 8.8 mg/dL 8.6-10.4 49510-9) MARY (test code = MARY) FASTING:NO FASTING: NO RAC (test code = RAC) Performing Organization Information: Site ID: RGA Name: [facility] Address: [address] [place] [address] Director: Kd Koenig Lab Interpretation (test Abnormal code = 34379-0) [facility] Alliance[facility]atic function [id number] 12:27:00 Test Item Value Reference Range Interpretation Comments Protein (test code = 5.5 g/dL 6.1-8.1 L 2884-2) Albumin (test code = 3.8 g/dL 3.6-5.1 1751-05) Globulin, total 1.7 See_Comment L [Automated (test [...] 1920-8) ALT (test code = 12 U/L 6- 1742-6) MARY (test code = FASTING:NO MARY) FASTING: NO RAC (test code = Performing RAC) Organization Information: Site ID: RGA Name: [facility] Lab Address: [address] [place] [address] Director: Kd Koenig Lab Interpretation Abnormal (test code = 59213-2) [facility] with platelet and nlshnyjtwpia1333-69-47 12:27:00 Test Item Value Reference Range Interpretation Comments WBC (test code = 3.6 See_Comment L [Automated 2067-2) message] The system which generated this result transmitted reference range : 3.8 - 10.8 Thousand/uL. Th e reference range was not used to interpret this result as normal/abnormal . RBC (test code = 2.07 See_Comment L [Automated 457-8) message] The system which generated this result transmitted reference range : 3.80 - 5.10 Million/uL. The reference range was not used to interpret this result as normal/abnormal . HGB (test code = 5.9 g/dL 11.7-15.5 L Verified by 548-7) repeat analysis . HCT (test code = 18.4 % 35.0-45.0 L Verified by 6694-3) repeat analysis . MCV (test code = [...] RAC) Organization Information: Site ID: RGA Name: [facility] Lab Address: [address] [place] [address] Director: Kd Koenig Lab Interpretation Abnormal (test code = 76269-7) [facility] AllianceProthrombin time with [id number] 12:27:00 Test Item Value Reference Range Interpretation Comments INR (test code = 1.2 H Reference R glenn 6301-6) 0.9-1.1Moderate -i ntensity Warfar in Therapy 2.0-3.0Higher-i nt ensity Warfarin Therapy 3.0-4.0 Prothrombin time 12.7 See_Comment H For additio nal (test code = 5902-2) informa tion, please refer tohttp://educat io n.NIN Venturesdiagnost TekLinks/faq/FAQ10 4( This link is being provided for [...] RAC) Organization Information: Site ID: RGA Name: [facility] Lab Address: [address] [place] [address] Director: Kd Koenig Lab Interpretation Abnormal (test code = 22927-2) [facility] metabolic [id number] 12:27:00 Test Item Value Reference Range Interpretation Comments Glucose (test code = 176 mg/dL 65-139 H Non-fa sting 2345-7) reference interval BUN (test code = 70 mg/dL 7-25 H 3094-0) Creatinine (test 2.37 mg/dL 0.60-1.00 H code = 2160-0) eGFR (test code = 21 See_Comment L The eGFR i s based 66288-8) on the CKD-EPI 2020 equation. To calculate the n ew eGFR from a previous Creatinine or Cystatin Cresul t, go to https://www.kid ne y.org/proflamine na christiano/kdoqi/gfr%5F ca lculator [Automated message] The system which [...] . Sodium (test code = 140 mmol/L 289-926 5495-2) Potassium (test code 4.6 mmol/L 3.5-5.3 = 2823-3) Chloride (test code 110 mmol/L 98-110 = 2075-0) CO2 (test code = 25 mmol/L 20-32 2027-9) Calcium (test code = 8.8 mg/dL 8.6-10.4 88782-9) MARY (test code = FASTING:NO MARY) FASTING: NO RAC (test code = Performing RAC) Organization Information: Site ID: RGA Name: [facility] Lab Address: [address] [place] [address] Director: Kd Koenig Lab Interpretation Abnormal (test code = 89423-0) [facility] AllianceHepatic function [id number] 12:27:00 Test Item Value Reference Range Interpretation Comments Protein (test code = 5.5 g/dL 6.1-8.1 L 2884-12) Albumin (test code = 3.8 g/dL 3.6-5.1 1751-05) Globulin, total 1.7 See_Comment L [Automated (test [...] 1920-8) ALT (test code = 12 U/L 6-29 1742-6) MARY (test code = FASTING:NO MARY) FASTING: NO RAC (test code = Performing RAC) Organization Information: Site ID: RGA Name: [facility] Lab Address: [address] [place] [address] Director: Kd Koenig Lab Interpretation Abnormal (test code = 66944-7) [facility] with platelet and lgimomunwmqx9613-00-20 12:27:00 Test Item Value Reference Range Interpretation Comments WBC (test code = 3.6 See_Comment L [Automated 5803-2) message] The system which generated this result transmitted reference range : 3.8 - 10.8 Thousand/uL. Th e reference range was not used to interpret this result as normal/abnormal . RBC (test code = 2.07 See_Comment L [Automated 692-8) message] The system which generated this result transmitted reference range : 3.80 - 5.10 Million/uL. The reference range was not used to interpret this result as normal/abnormal . HGB (test code = 5.9 g/dL 11.7-15.5 L Verified by 718-7) repeat analysis . HCT (test code = [...] RAC) Organization Information: Site ID: RGA Name: [facility] Lab Address: [address] [place] [address] Director: Kd Koenig Lab Interpretation Abnormal (test code = 90465-8) [facility] AllianceProthrombin time with [id number] 12:27:00 Test Item Value Reference Range Interpretation Comments INR (test code = 1.2 H Reference R glenn 6301-6) 0.9-1.1Moderate -i ntensity Warfar in Therapy 2.0-3.0Higher-i nt ensity Warfarin Therapy 3.0-4.0 Prothrombin time 12.7 See_Comment H For additio nal (test code = 5902-2) informa tion, please refer tohttp://educat io n.NIN Venturesdiagnost TekLinks/faq/FAQ10 4( This link is being provided for [...] RAC) Organization Information: Site ID: RGA Name: [facility] Lab Address: [address] [place], [place] [address] Director: Kd Koenig Lab Interpretation Abnormal (test code = 34370-3) [facility] AllianceHEMOGLOBIN [id number] 12:17:44 Test Item Value Reference Range Interpretation [...] 5.7- 6.4% indicates increased risk for diabetes (prediabetes)."Mechanical Systems Designer ID - ADM COMPREHENSIVE METABOLIC [id number] 06:35:39 Test Item Value Reference Range Interpretation [...] high >=90 G2 Mildly decreased 60-89 G3a Mild ly to moderately 45-5 9 G3b Moderately to [...] not appl icable for dialysis patien ts Mechanical Systems Designer ID - MARCOCBC W/PLT COUNT & AUTO [id number] 05:41:19 Test Item Value Reference Range Interpretation [...] (BEAKER) (test code = 2801) Creatinine, random [id number] 12:25:17 Test Item Value Reference Range Interpretation Comments Creatinine, Ur 98.4 mg/dL (test code = 2161-8) MARY (test code = Reference Range: No MARY) NormalsOperator ID - BV [facility], random [id number] 12:25:17 Test Item Value Reference Range Interpretation Comments Creatinine, Ur 98.4 mg/dL (test code = 2161-8) MARY (test code = Reference Range: No MARY) NormalsOperator ID - BV [facility] CenterCREATININE, RANDOM [id number] 12:25:17 Test Item Value Reference Range Interpretation Comments CREATININE URINE (BEAKER) (test 98.4 mg/dL code = 375) Reference Range: No NormalsOperator ID - BVSodium, random [id number] 12:23:27Sodium Urine<20meq/L05/17/2023 12:23 PM [facility]ATIONReference Range: No NormalsOperator ID - [facility]Ad[facility] Health St. Helenaodium, random ogkpd5840-84-54 12:23:27Sodium Urine<20meq/L05/17/2023 12:23 PM [facility]ATIONReference Range: No NormalsOperator ID - [facility] RANDOM [id number] 12:23:27 Test Item Value Reference Range Interpretation [...] not appl icable for dialysis patien ts Mechanical Systems Designer ID - [id number] 06:07:03 Test Item Value Reference Range Interpretation Comments PHOSPHORUS (BEAKER) 4.3 mg/dL 2.3-4.7 Specimen slightly (test code = 604) hemolyzed Mechanical Systems Designer ID - PCGXLUWJRROTYH3211-16-06 06:07:02 Test Item Value Reference Range Interpretation Comments MAGNESIUM (BEAKER) 2.4 mg/dL 1.6-2.6 Specimen slightly (test code = 627) hemolyzed Mechanical Systems Designer ID - MARCOCALCIUM, [id number] 05:35:24 Test Item Value Reference Range Interpretation Comments CALCIUM IONIZED (BEAKER) (test 1.13 mmol/L 1.12-1.27 code = 698) PH, BLOOD (BEAKER) (test code = 7.39 1810) PROTHROMBIN TIME/[id number] 05:34:04 Test Item Value Reference Range Interpretation [...] mechanical heart valves.CBC W/PLT COUNT & AUTO [id number] 05:30:37 Test Item Value Reference Range Interpretation [...] (BEAKER) (test code = 2801) Protein, random stcxm5790-47-60 21:32:29 Test Item Value Reference Range Interpretation Comments Protein, Urine (test code 0-14 = 2888-6) MARY (test code = MARY) Mechanical Systems Designer ID - ADMIN Lab Interpretation (test Normal code = 38807-4) [facility] CenterProtein, random [id number] 21:32:29 Test Item Value Reference Range Interpretation Comments Protein, Urine (test code 0-14 = 2888-6) MARY (test code = MARY) Mechanical Systems Designer ID - ADMIN Lab Interpretation (test Normal code = 21149-3) [facility] CenterPROTEIN, RANDOM [id number] 21:32:29 Test Item Value Reference Range Interpretation Comments PROTEIN, URINE (BEAKER) (test code = < mg/dL 0-14 1569) Mechanical Systems Designer ID - ADMINUrinalysis w/Hbgfbrniizk3944-07-06 21:11:20 Test Item Value Reference Range Interpretation Comments Color, UA (test code [place] = 5778-6) Clarity, UA (test Clear code = 5767-9) Specific [place], UA 1.015 1.001-1.035 (test code = 5811-5) pH, UA (test code = 6.0 5.0-8.0 5803-2) Protein, UA (test Negative Negative code = 56900-3) Glucose, UA (test Negative Negative code = 365) Ketones, UA (test Negative Negative code = 2514-8) Bilirubin, UA (test Negative Negative code = 67311-6) Blood, UA (test code Negative Negative = 57006-5) Nitrite, UA (test Negative Negative code = 5802-4) Leukocytes, UA (test Large Negative A code = 5799-2) Urobilinogen, UA 0.2 0.2-1.0 (test code = 31576-3) RBC, UA (test code = 2 See_Comment [Autom ated 00668-4) message] The system which generated this result [...] 2 See_Comment [Automate d (test code = 35387-5) messag e] The system which generated this result transmit carlitos reference range : /HPF. The reference range was not used to interpret this result as normal/abnormal . Crystals, Urine (test Rare None Seen A code = 61721-2) Specimen Source (test Urine, Clean code = 2795) Catch MARY (test code = MARY) Mechanical Systems Designer ID - [auto]Mechanical Systems Designer ID - tech Lab Interpretation Abnormal (test code = 22504-2) [facility]/Gtsyhqdgkej9555-71-66 21:11:20 Test Item Value Reference Range Interpretation Comments Color, UA (test code [place] = 5778-6) Clarity, UA (test Clear code = 5767-9) Specific [place], UA 1.015 1.001-1.035 (test code = 5811-5) pH, UA (test code = 6.0 5.0-8.0 5803-2) Protein, UA (test Negative Negative code = 23910-6) Glucose, UA (test Negative Negative code = 365) Ketones, UA (test Negative Negative code = 2514-8) Bilirubin, UA (test Negative Negative code = 10240-6) Blood, UA (test code Negative Negative = 55176-1) Nitrite, UA (test Negative Negative code = 5802-4) Leukocytes, UA (test Large Negative A code = 5799-2) Urobilinogen, UA 0.2 0.2-1.0 (test code = 69574-2) RBC, UA (test code = 2 See_Comment [Autom ated 02156-6) message] The system which generated this result [...] 2 See_Comment [Automate d (test code = 87717-1) messag e] The system which generated this result transmit carlitos reference range : /HPF. The reference range was not used to interpret this result as normal/abnormal . Crystals, Urine (test Rare None Seen A code = 98326-7) Specimen Source (test Urine, Clean code = 2795) Catch MARY (test code = MARY) Mechanical Systems Designer ID - [auto]Mechanical Systems Designer ID - tech Lab Interpretation Abnormal (test code = 34107-2) [facility] W/ [id number] 21:11:20 Test Item Value Reference Range Interpretation Comments COLOR (BEAKER) (test code [place] = 470) CLARITY (BEAKER) (test Clear code [...] (test code Urine, Clean Catch = 2795) Mechanical Systems Designer ID - [auto]Mechanical Systems Designer ID - techHEMOGLOBIN AND [id number] 16:34:15 Test Item Value Reference Range Interpretation Comments HEMOGLOBIN (BEAKER) (test code = 9.4 GM/DL 11.2-15.7 L 410) HEMATOCRIT (BEAKER) (test code = 29.1 % 34.1-44.9 L 411) Mechanical Systems Designer ID - [facility] asoww7583-40-29 13:51:03 Test Item Value Reference Range Interpretation Comments POC-Glucose Meter (test 155 mg/dL 70-110 H : TE STED AT [facility] code = 1538) [address] [facility], 770 30: Mechanical Systems Designer/Techni bravo ID = [id number] for Bethany Koch Lab Interpretation (test Abnormal code = 07001-9) [facility] Center[facility]OC-Glucose [id number] 13:51:03 Test Item Value Reference Range Interpretation Comments POC-Glucose Meter (test 155 mg/dL 70-110 H : TE STED AT [facility] code = 1538) [address] [facility], 770 30: Mechanical Systems Designer/Techni bravo ID = [id number] for Bethany Koch Lab Interpretation (test Abnormal code = 11144-2) [facility] CenterPOCT-GLUCOSE [id number] 13:51:03 Test Item Value Reference Range Interpretation Comments POC-GLUCOSE METER 155 mg/dL 70-110 H : TESTED A T [facility] 6720 (BEAKER) (test code = [facility], 1538) [address]: Mechanical Systems Designer/Techni bravo ID = [id number] for Bethany Trejo COMPREHENSIVE METABOLIC [id number] 01:15:55 Test Item Value Reference Range Interpretation [...] not appl icable for dialysis patien ts Mechanical Systems Designer ID - ADMINSpecimen slightly ictericPT/SUVE9256-10-00 00:45:44 Test Item Value Reference Range Interpretation [...] mechanical heart valves.CBC W/PLT COUNT & AUTO [id number] 00:22:14 Test Item Value Reference Range Interpretation [...] in Respiratory specimen by MARICEL with probe [id number] 17:33:40 Test Item Value Reference Range Interpretation Comments SARS-CoV-2 (COVID-19) RNA Not detected Not-Detected [Presence] in Respiratory specimen by MARICEL with probe detection (test code = 37669-8) Whether patient is employed in a healthcare setting (test code = 08180-6) Whether the patient has symptoms related to condition of interest (test code = 41194-2) Patient was hospitalized because of this condition (test code = 04558-6) Whether the patient was admitted to intensive care unit (ICU) for condition of interest (test code = 42645-4) Whether patient resides in a congregate care setting (test code = 34283-0) [facility] ([facility]OVID-19) RNA [Presence] in Respiratory specimen by MARICEL with probe [id number] 14:25:58 Test Item Value Reference Range Interpretation Comments SARS-CoV-2 (COVID-19) RNA Not detected Not-Detected [Presence] in Respiratory specimen by MARICEL with probe detection (test code = 46993-7) Whether patient is employed in a healthcare setting (test code = 48953-1) Whether the patient has symptoms related to condition of interest (test code = 86339-9) Patient was hospitalized because of this condition (test code = 13778-9) Whether the patient was admitted to intensive care unit (ICU) for condition of interest (test code = 84855-1) Whether patient resides in a congregate care setting (test code = 23464-8) [facility] PARACENTESIS/PERITONECENTESIS WITH [id number] 15:25:50EXAMINATION: IMAGE GUIDED PARACENTESIS. HISTORY/INDICATION: Therapeutic,Large Volume ?Please performlarge volumeparacentesis every 4 weeks for ascites SEDATION: The patient did not require conscious sedation for the procedure. TECHNIQUE: The risks (including infection and increased risk of bleedingdue to abnormal prothrombin time and platelets), benefits and alternativeswere discussed and informed consent was obtained. Prior to beginning the procedure, [place] "timeout" Protocol wasperformed to confirm the identity [...] DISCHARGED TO: Outpatient surgery for intravenous albumin therapy[facility] Results Inft User - 05/02/2021 10:27 AM CDT EXAMINATION: IMAGE GUIDED PARACENTESIS. HISTORY/INDICATION: Therapeutic,Large Volume Please perform large volumeparacentesis every 4 weeks for ascitesSEDATION: The patient did not requi re conscious sedation for the procedure.TECHNIQUE: The risks (including infection and increased riskof bleedingdue to abnormal prothrombin time and platelets), benefits and alternativeswere discussed and informed consent was obtained. Prior to beginning the procedure, [place] "timeout" Protocol wasp erformed to confirm the [...] Minimal.CONDITION: Stable.DISCHARGED TO: Outpatient surgery for intravenous albumintherapy.[facility]/PERITONECENTESIS WITH [id number] 15:57:18EXAMINATION: IMAGE GUIDED PARACENTESIS. HISTORY/INDICATION: Other ascites [...] was obtained. Prior to beginning the procedure, [place] "timeout" Protocol wasperformed to confirm the identity [...] TO: Outpatient surgery for intravenous albumin therapy. [facility] Inft User - 03/28/2021 10:58 AM CDTEXAMINATION: [...] was obtained. Prior to beginning the procedure, [place] "timeout" Protocol wasperformed to confirm the identity [...] Stable.DISCHARGED TO: Outpatient surgery for intravenous albumin therapy.[facility] FLUID,[id number] 17:47:00 Test Item Value Reference Range Interpretation Comments FLUID,PARACENTESIS (test code = FLPARACENT) RUN DATE: 02/19/21 [place] - LAB PAGE 1 RUN TIME: 1748 Specimen Inquiry RUN USER: INTERFACE PATIENT: RENA SINCLAIR LOC: KennedyIDU U #: [id number] AGE/SX: 70/F ROOM: [facility] RE02/15/21REG DR: Briana Walden MD : 50 BED: A DIS: 02/18/21 STATUS: DIS IN TLOC: SPEC #: [id number] RECD: 02/18/21 STATUS: [employer] #: [id number] HARIS: 02/18/[address] [facility] [address]: Briana Walden MD ENTERED: 02/18/21 SP TYPE: FLUID,PARC OTHR DR: DOES_NOT KNOW Self Referred Laisha Alexis MDORDERED: CB SUREPATH CODES: [id number] - ABDOMEN, NOS [id number] P53419 - ABDOMEN, NOS NO EVIDENCE OF [id number] - ABDOMEN, NOS CENTESIS, NOS COPIES TO: DOES_NOT KNOW [place] [address] [facility] [address] [place], [place] [id number] Laisha Alexis MD [address] [facility] [place], [place] [id number] PROCEDURES: CB (02/18/21) SUREPATH (02/18/21) TISSUES: A. ABDOMEN, NOS - PARACENTESIS CPT CODES CPT CODE(S): 39007 , 14486 , , , , , FINAL DIAGNOSIS ASCITIC FLUID, PARACENTESIS WITH CELL BLOCK: - NEGATIVE FOR MALIGNANCY GROSS DESCRIPTION Paracentesis. Received are 1200 mL of cloudy, yellow fluid. One thin-layer slide is prepared for Pap stain. One cell block is prepared. /lien CONTINUED ON NEXT PAGE RUN DATE: 02/19/21 [place] - LAB PAGE 2 RUN TIME: 3188 Specimen Inquiry RUN USER: INTERFACE SPEC #: [id number] PATIENT: RENA SINCLAIR #[id number] (Continued) MICROSCOPIC DESCRIPTION Paracentesis. - Signed SIGNATURE ON FILE JinjadenSilver 02/19/21 1747 END OF REPORT - PARACENTESIS W [id number] 11:12:00 [facility] : 1950 Sex: F Patient Name: RENA SINCLAIR Unit No: [id number] EXAMS: CPT CODE: [id number] PARACENTESIS W IMAGE 98248 EXAMINATION: IMAGE-GUIDED PARACENTESIS. LOCATION: B2. HISTORY: Ascites SEDATION: The patient did not require conscious sedation for the procedure. ANTIBIOTICS: None. Not indicated. CONTRAST: None.TECHNIQUE: The risks, benefits, and alternatives were discussed and informed consent was obtained. Prior to beginning the procedure, [place] Protocol was used to confirm the patient's identity and planned procedure. Sterile barriers including cap, mask, hand hygiene, sterile gloves, sterile drape and cutaneous antisepsis were used. The patient's abdomen was examined with ultrasound and a suitable po cket of ascitic fluid in the right lower [...] of ascitic fluid. IMPRESSION: Successful image-guided paracentesis. angledozer operator: Trudi Dhillon PA-C I have personally reviewed these images andagree with the physician physicians assistant's interpretation. at 1112 Reported and signed by: Laisha Alexis MD [facility] NAME: RENA SINCLAIR [id number] PHYS: UGLEANNET [place] [address] : 1950 AGE: 70 SEX: F LOC: Z.620 A PHONE #: [phone] EXAM DATE: 02/18/2021 STATUS: ADM IN FAX #: [phone] RADIOLOGY NO: PAGE 1 Signed Report (CONTINUED) Patient Name: RENA SINCLAIR Unit No: [id number] EXAMS: CPT CODE: [id number] PARACENTESIS W IMAGE 70585 (Continued)CC: Mason Ward MD Technologist: [employer] Transcrpt Date/Tm/Trnsp: 02/18/2021 (1112) t.NICK RKennedyKW9 Orig Print D/T: S: 02/18/2021 (1115) [facility] NAME: RENA SINCLAIR [id number] PHYS:DMITRIY [place] [address] : 1950 AGE: 70 SEX: F LOC: ZKennedy620 A PHONE #: [phone] EXAM DATE: 02/18/2021 STATUS: ADM IN FAX #: [phone] RADIOLOGY NO: PAGE 2 Signed ReportGLUCOSE BEDSIDE [id number] 10:44:00 Test Item Value Reference Range Interpretation Comments GLUCOSE BEDSIDE TESTING (test code 259 MG/DL 60-99 H = GLUBED) COVID 19 Asymptomatic IH [id number] 09:16:00 Test Item Value Reference Range Interpretation [...] virus (antigen) in the sample." GLUCOSE BEDSIDE [id number] 07:41:00 Test Item Value Reference Range Interpretation Comments GLUCOSE BEDSIDE TESTING (test code 157 MG/DL 60-99 H = GLUBED) BASIC METABOLIC [id number] 05:35:00 Test Item Value Reference Range Interpretation [...] UNITS/L 120-246 N code = LDH) PROTHROMBIN [id number] 05:26:00 Test Item Value Reference Range Interpretation [...] syste eloise embolism. 3.0 - 4.5 HGB [id number] 05:17:00 Test Item Value Reference Range Interpretation Comments HEMOGLOBIN (test code = HGB) 7.1 G/DL 11.2-14.9 L HEMATOCRIT (test code = HCT) 24.2 % 33.2-43.5 L GLUCOSE BEDSIDE [id number] 21:29:00 Test Item Value Reference Range Interpretation Comments GLUCOSE BEDSIDE TESTING (test code 157 MG/DL 60-99 H = GLUBED) GLUCOSE BEDSIDE [id number] 16:33:00 Test Item Value Reference Range Interpretation Comments GLUCOSE BEDSIDE TESTING (test code 165 MG/DL 60-99 H = GLUBED) GLUCOSE BEDSIDE [id number] 11:19:00 Test Item Value Reference Range Interpretation Comments GLUCOSE BEDSIDE TESTING (test code 173 MG/DL 60-99 H = GLUBED) GLUCOSE BEDSIDE [id number] 07:38:00 Test Item Value Reference Range Interpretation Comments GLUCOSE BEDSIDE TESTING (test code 128 MG/DL 60-99 H = GLUBED) BASIC METABOLIC [id number] 06:59:00 Test Item Value Reference Range Interpretation [...] UNITS/L 120-246 N code = LDH) HGB [id number] 06:32:00 Test Item Value Reference Range Interpretation Comments HEMOGLOBIN (test code = HGB) 7.3 G/DL 11.2-14.9 L HEMATOCRIT (test code = HCT) 24.4 % 33.2-43.5 L GLUCOSE BEDSIDE [id number] 20:53:00 Test Item Value Reference Range Interpretation Comments GLUCOSE BEDSIDE TESTING (test code 201 MG/DL 60-99 H = GLUBED) BASIC METABOLIC [id number] 07:14:00 Test Item Value Reference Range Interpretation [...] 120-246 N code = LDH) THYROID STIMULATING [id number] 07:14:00 Test Item Value Reference Range Interpretation Comments THYROID STIMULATING 2.620 MIU/L 0.465-4.68 N Please b e aware that HORMONE (test code = bias re sults for TSH TSH) may occur forpa tient who are taking Biotin suppleme nts. T4 [id number] 07:13:00 Test Item Value Reference Range Interpretation Comments T4 FREE (test code = T4F) 1.4 NG/DL 0.78-2.19 N HGB [id number] 06:47:00 Test Item Value Reference Range Interpretation Comments HEMOGLOBIN (test code = HGB) 7.2 G/DL 11.2-14.9 L HEMATOCRIT (test code = HCT) 23.8 % 33.2-43.5 L BASIC METABOLIC [id number] 06:44:00 Test Item Value Reference Range Interpretation [...] 120-246 N code = LDH) THYROID STIMULATING [id number] 06:44:00 Test Item Value Reference Range Interpretation Comments THYROID STIMULATING HORMONE (test code MIU/L 0.465-4.68 = TSH) GLUCOSE BEDSIDE [id number] 06:28:00 Test Item Value Reference Range Interpretation Comments GLUCOSE BEDSIDE TESTING (test code 174 MG/DL 60-99 H = GLUBED) VITAMIN [id number] 22:26:00 Test Item Value Reference Range Interpretation Comments VITAMIN B12 (test code = VITB12) 987 pg/mL 239-931 H [id number] 22:26:00 Test Item Value Reference Range Interpretation Comments FERRITIN (test code = VAUGHN) 12.3 NG/ML 11.1-264 N VITAMIN [id number] 22:11:00 Test Item Value Reference Range Interpretation Comments VITAMIN B12 (test code = VITB12) pg/mL 239-931 [id number] 22:11:00 Test Item Value Reference Range Interpretation Comments FERRITIN (test code = VAUGHN) 12.3 NG/ML 11.1-264 N FE W/TOTAL IRON BINDING CAP.2021-02-15 21:44:00 Test Item Value Reference Range Interpretation Comments SERUM IRON (test code = IRON) 35 MCG/DL 37-170 L TOTAL IRON BINDING CAPACITY (test 400 MCG/DL 265-497 N code = TIBC) IRON SATURATION (test code = 9 % 12-57 L FESAT) [id number] 21:35:00 Test Item Value Reference Range Interpretation Comments AMMONIA (test code = AMM) < 9 mcMOL/L 9-30 L FE W/TOTAL IRON BINDING CAP.2021-02-15 21:34:00 Test Item Value Reference Range Interpretation Comments SERUM IRON (test code = IRON) 35 MCG/DL 37-170 L TOTAL IRON BINDING CAPACITY (test MCG/DL 265-497 code = TIBC) IRON SATURATION (test code = FESAT) % 12-57 GLUCOSE BEDSIDE [id number] 20:37:00 Test Item Value Reference Range Interpretation Comments GLUCOSE BEDSIDE TESTING (test code 142 MG/DL 60-99 H = GLUBED) COMPREHENSIVE METABOLIC [id number] 12:57:00 Test Item Value Reference Range Interpretation [...] 6.0 g /dl +0.50 +0.45 5 mg/dl 6.0 g/dl +0.73 +0.65 2.5 mg/dl 8.0 g/dl [...] N PHOSPHATASE (test code = ALKP) PROTHROMBIN [id number] 12:53:00 Test Item Value Reference Range Interpretation [...] eloise embolism. 3.0 - 4.5 CBC W/AUTO [id number] 12:40:00 Test Item Value Reference Range Interpretation [...] K/mm3 0.0-0.1 N NRBC#) IR PARACENTESIS/PERITONECENTESIS WITH [id number] 16:49:16EXAMINATION: IMAGE GUIDED PARACENTESIS. HISTORY/INDICATION: please perform large volume paracentesisevery 4 weeksfor ascites please perform large volume paracentesis every 4 weeks forascites SEDATION:The patient did not require conscious sedation for the procedure. TECHNIQUE: The risks (including infection and increased risk of bleedingdue to abnormal prothrombin time and platelets), benefits and al ternativeswere discussed and informed consent was obtained. Prior to beginning the procedure, [place] "timeout" Protocol wasperformed to confirm the identity [...] TO: Outpatient surgery for intravenous albumin therapy. [facility] [place] Results Inft User - 01/29/2021 11:50 AM [...] was obtained. Prior to beginning the procedure, [place] "timeout" Protocol wasperformed to confirm the identity [...] Stable.DISCHARGED TO: Outpatient surgery [facility] albumin [facility]/PERITONECENTESIS WITH [id number] 19:45:02EXAMINATION: IMAGE GUIDED PARACENTESIS. HISTORY/INDICATION: Other ascites Please perform large volume paracentesisevery 4 weeks for ascites SEDATION: The patient did not require conscious sedation for the procedure. TECHNIQUE: The risks (including infection and increased risk of bleedingdue to abnormal prothrombin time and platelets), benefits and alternativeswere discussed and informed consent was ob tained. Prior to beginning the procedure, [place] "timeout" Protocol wasperformed to confirm the identity [...] TO: Outpatient surgery for IV albumin therapy. [facility] Results Inft User - 01/03/2021 1:46 PM CSTEXAMINATION: IMAGE GUIDED PARACENTESIS. HISTORY/INDICATION: Other ascites Please perform large volume paracentesisevery 4 weeks for ascitesSEDATION: The patient did notrequire conscious sedation for the procedure.TECHNIQUE: The risks (including infection and increasedrisk of bleedingdue to abnormal prothrombin time and platelets), benefits and alternativeswere discussed and informed consent was obtained. Prior to beginning the procedure, [place] "timeout" Protocol wasperformed to confirm the identity [...] Stable.DISCHARGED TO: Outpatient surgery for IV albumin therapy.[facility]ENTES[facility]/PERITONECENTESIS WITH [id number] 20:22:56Successful US- guided paracentesis.PROCEDURE: US-guided paracentesis HISTORY: [...] discussingthe risks and benefits of the procedure. [place] protocol timeout wasperformed verifying correct patient, correct [...] discussingthe risks and benefits of the procedure. [place] protocol timeout wasperformed verifying correct patient, correct [...] Estimated Blood Loss : <1 ccIMPRESSIONSuccessful US-guided paracentesis.[facility] PAR[facility]ENTES[facility]/PERITONECENTESIS WITH [id number] 21:20:52 Successful US-guided paracentesis.PROCEDURE: US-guided paracentesis HISTORY: [...] discussingthe risks and benefits of the procedure. [place] protocol timeout wasperformed verifying correct patient, correct [...] ? Estimated Blood Loss : <1 cc [facility] Results Inft User - 10/22/2020 3:44 PM CSTPROCEDURE: US-guided paracentesisHISTORY: Ascites, paracentesis is requested.MEDICATIONS: Local lidocaine. I reviewed the patient?s current medicationlist as noted in the nursing assessment, and the following actions weretaken: None []. ATTENDING PRESENCE: As the attending radiologist, I was present in theroom during the entire procedure.TECHNIQUE: Informed consent was obtained from the patient after discussingthe risks and benefits of the procedure. [place] protocol timeout wasperformed verifying correct patient, correct site, and correct procedure.Images were archived to PACS. The patient was prepped and draped in sterilefashion. US-guided drainage of the ascites was performed with a 5 Frenchsheathed needle, after infiltrating local anesthesia at the puncture site.A total of 10.3L ascites fluid was drained. 75 g IV albumin was given during the procedure.COMPLICATIONS: None. Estimated Blood Loss : <1 ccIMPRESSIONSuccessful US-guided paracentesis.[facility]ODY (IGG AND IGM)2020-10-03 00:09:00 Test Item Value Reference Range Interpretation Comments HAV Total (test code = 3103292758) Negative HAVT Semi-Quantitative (test code = 6776223832) [facility] SURFACE [id number] 00:09:00 Test Item Value Reference Range Interpretation Comments HBsAB (test code = Negative 5720983349) HBsAb mIU/mL Semi-Quantitative (test code = 3972752980) MARY (test code = Interpretation: MARY) ?Hepatitis B Surface Antibody ? Negative - Patient is considered to be not immune to infection with HBV. ? ? Positive - Anti-HBs detected at greater than or equal to 12 mIU/mL. ?Patient is considered to be immune to infection with HBV. ? [facility]ODY (IGM & IGG)2020-10-03 00:09:00 Test Item Value Reference Range Interpretation Comments HBC (test code = 7872610104) Negative HBC Semi-Quantitative (test code = 3734454808) [facility] HospitalHCV [id number] 00:09:00 Test Item Value Reference Range Interpretation Comments HCV Ab (test code = 98930-0) Negative HCV Semi-Quantitative (test code = 04709-4) [facility] HospitalALPHA [id number] 23:55:00 Test Item Value Reference Range Interpretation Comments AFP (test code = 3.2 ng/mL See_Comment [Automated 0160960161) message] The system which generated this result transmitted reference range : <=7.5. The reference range was not used to interpret this result as normal/abnormal . MARY (test code = MARY) Biotin has been reported to cause a negative bias, interpret results relative to patient's use of biotin. Lab Interpretation Normal (test code = 84809-7) [facility] Hospital[facility]IS [facility] SURFACE [id number] 23:52:00 Test Item Value Reference Range Interpretation Comments HBsAg Semi-Quantitative (test code = Negative Negative 5195-3) [facility] WITH [id number] 19:15:00 Test Item Value Reference Range Interpretation [...] RDW-SD (test code = 45.3 fL 39-49.9 52728-9) RDW-CV (test code = 15.7 % 12-15.5 H 788-0) PLT (test code = See_Comment L [Automated 777-3) message] The sy stem which generated this result transmitted reference range : 166 - 358 10*3/ ?L. The reference r glenn was not used to interpret this result as normal/abnormal . MPV (test code = 12.2 fL 9.5-12.9 58276-4) IPF % (test code = 4.5 % 1.3-7.7 Platelet count 6895307641) measured by fluorescence method. NRBC/100 WBC (test See_Comment [Automat ed code = 4950546953) message] The system which generated this result transmitted reference range : 0.0 - 10.0 /100 WBCs. The refer ence range was not u sed to interpret th is result as normal/abnormal . NRBC x10^3 (test code <0.01 See_Comment [Auto mated = 1030220657) message] The s ystem which generated this result transmitted reference range : 10*3/?L. The reference range was not used to interpret this result as normal/abnormal . GRAN MAT (NEUT) % 64.4 % (test code = 770-8) IMM GRAN % (test code 0.30 % = 8781932281) LYMPH % (test code = 19.7 % 736-9) MONO % (test code = 11.5 % 5905-5) EOS % (test code = 3.5 % 713-8) BASO % (test code = 0.6 % 706-2) GRAN MAT x10^3(ANC) 2.02 10*3/uL 1.88-7.09 (test code = 6584855745) IMM GRAN x10^3 (test <0.03 0-0.06 code = 6887795303) LYMPH x10^3 (test code 0.62 10*3/uL 1.32-3.29 L = 731-0) MONO x10^3 (test code 0.36 10*3/uL 0.33-0.92 = 742-7) EOS x10^3 (test code = 0.11 10*3/uL 0.03-0.39 711-2) BASO x10^3 (test code <0.03 0.01-0.07 = 704-7) Lab Interpretation Abnormal (test code = 79655-1) [facility] WITH [id number] 19:15:00 Test Item Value Reference Range Interpretation [...] RDW-SD (test code = 45.3 fL 39-49.9 67083-1) RDW-CV (test code = 15.7 % 12-15.5 H 788-0) PLT (test code = See_Comment L [Automated 777-3) message] The sy stem which generated this result transmitted reference range : 166 - 358 10*3/ ?L. The reference r glenn was not used to interpret this result as normal/abnormal . MPV (test code = 12.2 fL 9.5-12.9 35576-3) IPF % (test code = 4.5 % 1.3-7.7 Platelet count 1004850731) measured by fluorescence method. NRBC/100 WBC (test See_Comment [Automat ed code = 1617255647) message] The system which generated this result transmitted reference range : 0.0 - 10.0 /100 WBCs. The refer ence range was not u sed to interpret th is result as normal/abnormal . NRBC x10^3 (test code <0.01 See_Comment [Auto mated = 6654964951) message] The s ystem which generated this result transmitted reference range : 10*3/?L. The reference range was not used to interpret this result as normal/abnormal . GRAN MAT (NEUT) % 64.4 % (test code = 770-8) IMM GRAN % (test code 0.30 % = 2698953546) LYMPH % (test code = 19.7 % 736-9) MONO % (test code = 11.5 % 5905-5) EOS % (test code = 3.5 % 713-8) BASO % (test code = 0.6 % 706-2) GRAN MAT x10^3(ANC) 2.02 10*3/uL 1.88-7.09 (test code = 1899349798) IMM GRAN x10^3 (test <0.03 0-0.06 code = 0706466929) LYMPH x10^3 (test code 0.62 10*3/uL 1.32-3.29 L = 731-0) MONO x10^3 (test code 0.36 10*3/uL 0.33-0.92 = 742-7) EOS x10^3 (test code = 0.11 10*3/uL 0.03-0.39 711-2) BASO x10^3 (test code <0.03 0.01-0.07 = 704-7) Lab Interpretation Abnormal (test code = 46035-7) [facility] [id number] 19:10:00 Test Item Value Reference Range Interpretation Comments PROTIME PATIENT (test See_Comment H [Auto mated message] code = 5964-2) The system [employer] generated this result transmitted ref erence range: 12.0 - 1 4.7 Seconds. The reference range was not used to int erpret this result as normal/abnormal . INR (test code = 6301-6) Nor mal INR <1.1; Warfarin Therap eutic range 2.0 to 3. 0 or 2.5 to 3.5, dep ending upon the indica tions. Lab Interpretation (test Abnormal code = 52504-3) [facility] / [id number] 19:10:00 Test Item Value Reference Range Interpretation Comments PROTIME PATIENT (test See_Comment H [Auto mated message] code = 5964-2) The system [employer] generated this result transmitted ref erence range: 12.0 - 1 4.7 Seconds. The reference range was not used to int erpret this result as normal/abnormal . INR (test code = 6301-6) Nor mal INR <1.1; Warfarin Therap eutic range 2.0 to 3. 0 or 2.5 to 3.5, dep ending upon the indica tions. Lab Interpretation (test Abnormal code = 84040-2) [facility]FERRITIN [id number] 18:12:00 Test Item Value Reference Range Interpretation Comments FERRITIN (test code = 20.5 ng/mL 7999001143) MARY (test code = MARY) Biotin has been reported to cause a negative bias, interpret results relative to patient's use of biotin. Lab Interpretation (test Normal code = 20908-0) [facility] [id number] 18:12:00 Test Item Value Reference Range Interpretation Comments FERRITIN (test code = 20.5 ng/mL 7999001143) MARY (test code = MARY) Biotin has been reported to cause a negative bias, interpret results relative to patient's use of biotin. Lab Interpretation (test Normal code = 71978-7) [facility] [id number] 17:49:00 Test Item Value Reference Range Interpretation Comments TIBC (test code = 7246743243) 401 ug/dL 250-410 % FE SAT (test code = 0776357753) 12 % 20-50 L Lab Interpretation (test code = Abnormal 38413-9) [facility] [id number] 17:49:00 Test Item Value Reference Range Interpretation Comments TIBC (test code = 6188557970) 401 ug/dL 250-410 % FE SAT (test code = 3706699211) 12 % 20-50 L Lab Interpretation (test code = Abnormal 36801-8) [facility]HEPAT[facility] PAN[facility] (02741) (ALB,T.PRO,BILI T,BU/BC,ALT,AST,ALK PHOS)2020-10-02 17:39:00 Test Item Value Reference Range Interpretation Comments TOTAL BILI (test code = 7463680689) 1.3 mg/dL 0.1-1.1 H BILI UNCON (test code = 8231285906) 1.0 mg/dL 0.1-1.1 BILI CONJ (test code = 0883013859) 0.0 mg/dL 0-0.3 T PROTEIN (test code = 7602172145) 6.8 g/dL 6.3-8.2 ALBUMIN (test code = 0533542900) 3.0 g/dL 3.5-5 L ALK PHOS (test code = 7744374111) 95 U/L 34-122 ALTv (test code = 1742-6) 18 U/L 5-35 AST(SGOT) (test code = 2421232470) 53 U/L 13-40 H Lab Interpretation (test code = Abnormal 38968-3) [facility]IRON2020-[facility]-17 17:39:00 Test Item Value Reference Range Interpretation Comments IRON (test code = 3273129708) 49 ug/dL 50-160 L Lab Interpretation (test code = Abnormal 17525-0) [facility]HEP[facility] (53443) (ALB,T.PRO,BILI T,BU/BC,ALT,AST,ALK PHOS)2020-10-02 17:39:00 Test Item Value Reference Range Interpretation Comments TOTAL BILI (test code = 8149616804) 1.3 mg/dL 0.1-1.1 H BILI UNCON (test code = 2255262214) 1.0 mg/dL 0.1-1.1 BILI CONJ (test code = 7028559440) 0.0 mg/dL 0-0.3 T PROTEIN (test code = 3516233212) 6.8 g/dL 6.3-8.2 ALBUMIN (test code = 1170020769) 3.0 g/dL 3.5-5 L ALK PHOS (test code = 2160566151) 95 U/L 34-122 ALTv (test code = 1742-6) 18 U/L 5-35 AST(SGOT) (test code = 0413149113) 53 U/L 13-40 H Lab Interpretation (test code = Abnormal 77342-9) [facility]IRON[facility] 17:39:00 Test Item Value Reference Range Interpretation Comments IRON (test code = 1954848048) 49 ug/dL 50-160 L Lab Interpretation (test code = Abnormal 49286-3) [facility] HospitalCT HEAD WO [id number] 14:12:08 No acute intracranial abnormality. Preliminary Report [...] reviewed this study and agree with the abovereport.[facility] HospitalHALLIE [id number] 14:11:00 Test Item Value Reference Range Interpretation Comments TROPONIN I (test <0.012 See_Comment [Automated code = 6481062019) message] The system which generated this result [...] ? Lab Interpretation Normal (test code = 30666-9) [facility] HospitalACETAMINOPHEN2020-04-11 13:30:00 Test Item Value Reference Range Interpretation Comments ACETAMINOP (test code = <10.0 10-30 L 9166783273) MARY (test code = MARY) Toxic: Greater than 200 ug/mL @ 4 hour post ingestion or greater than 50 ug/mL @ 12 hour post ingestion Lab Interpretation (test Abnormal code = 51547-8) [facility] HospitalSALICYLATE2020-04-11 13:13:00 Test Item Value Reference Range Interpretation Comments SALICYLATE (test code 10 mg/L = 2018215830) MARY (test code = MARY) Therapeutic Range: ? Analgesic and Antipyretic Use ? 20-100 mg/L ? ? Anti-Inflammatory Use ? 100-250 mg/L Toxic Range: ? Greater than 300 mg/L [facility]aPTT2020-[facility] 13:12:00 Test Item Value Reference Range Interpretation Comments APTT Patient (test See_Comment [Automat ed code = 3173-2) message] The system which generated this result transmitted reference range : 23 - 38 Seconds . The reference range was not used to interpr et this result as normal/abnormal . MARY (test code = MARY) The [facility] patient population mean normal value for aPTT is 30 seconds. Lab Interpretation Normal (test code = 34089-0) [facility]PROTHROMBIN TIME / [id number] 13:10:00 Test Item Value Reference Range Interpretation [...] tions. Lab Interpretation (test Abnormal code = 71962-2) [facility]ADC / [facility] [id number] 13:08:00 Test Item Value Reference Range Interpretation Comments BENZO U (test code = Negative Negative 1144558262) FATEMEH U (test code = Negative Negative 9900466189) AMPHET (test code = Negative Negative 3881053147) THC (test code = Negative Negative 5241583682) METHADONE (test code = Negative Negative 2745765299) Meth U (test code = Negative Negative 3375982409) OPIATES (test code = Negative Negative 9257994884) Cocaine Metabolite (test Negative Negative code = 0234376507) PROPOXY (test code = Negative Negative 3406515941) Tric U (test code = Negative Negative 1857759751) PCP (test code = Negative Negative 5768287958) OXYCOD (test code = Negative Negative 1442581775) MARY (test code = MARY) Urine Drug [...] testing). Lab Interpretation (test Normal code = 99003-8) [facility] HospitalUrinalysis2020-04-11 13:07:00 Test Item Value Reference Range Interpretation Comments APPEARANCE (test code = Clear Clear 9540440431) COLOR (test code = Yellow Yellow 3960472090) PH (test code = 4.8-8.0 1440452540) SP GRAVITY (test code = 1.003-1.030 0378617930) GLU U QUAL (test code = 150 mg/dL Normal A 1026559729) BLOOD (test code = Negative Negative 7480997822) KETONES (test code = Negative Negative 7730332973) PROTEIN (test code = Negative Negative 2887-8) UROBILIN (test code = 2.0 mg/dL Normal A 4506985365) BILIRUBIN (test code = Negative Negative 4007044159) NITRITE (test code = Negative Negative 2699556605) LEUK SABA (test code = Negative Negative 7777706236) RBC/HPF (test code = See_Comment [Autom ated message] 5716904280) The system [employer] generated this result transmit carlitos reference range : 0 - 3 HPF. The refe rence range was not u sed to interpret th is result as normal/abnormal . WBC/HPF (test code = See_Comment [Autom ated message] 3717339880) The system [employer] generated this result transmit carlitos reference range : 0 - 5 HPF. The refe rence range was not u sed to interpret th is result as normal/abnormal . BACTERIA (test code = Moderate Negative A 5406837060) MUCOUS (test code = Moderate Negative LPF A 9802213076) SQ EPITH (test code = <1 HPF 0318737921) HYAL CAST (test code = See_Comment [Aut omated message] 0516067574) The system whic h generated this result transmit carlitos reference range : <=2 LPF. The refere nce range was not u sed to interpret th is result as normal/abnormal . Lab Interpretation (test Abnormal code = 78632-1) [facility] HospitalAMMONIA, [id number] 12:48:00 Test Item Value Reference Range Interpretation Comments AMMONIA (test code = 4500888843) 13 umol/L 9-33 Lab Interpretation (test code = Normal 69791-7) [facility] WITH [id number] 12:37:00 Test Item Value Reference Range Interpretation [...] RDW-SD (test code = 42.4 fL 39-49.9 52167-9) RDW-CV (test code = 13.0 % 12-15.5 788-0) PLT (test code = See_Comment L [Automated 777-3) message] The sy stem which generated this result transmitted reference range : 166 - 358 10*3/ ?L. The reference r glenn was not used to interpret this result as normal/abnormal . MPV (test code = 11.8 fL 9.5-12.9 68014-3) IPF % (test code = 4.6 % 1.3-7.7 Platelet count 4422407478) measured by fluorescence method. NRBC/100 WBC (test See_Comment [Automat ed code = 8261016883) message] The system which generated this result transmitted reference range : 0.0 - 10.0 /100 WBCs. The refer ence range was not u sed to interpret th is result as normal/abnormal . NRBC x10^3 (test code <0.01 See_Comment [Auto mated = 2183674011) message] The s ystem which generated this result transmitted reference range : 10*3/?L. The reference range was not used to interpret this result as normal/abnormal . GRAN MAT (NEUT) % 80.2 % (test code = 770-8) IMM GRAN % (test code 0.20 % = 7792334482) LYMPH % (test code = 12.0 % 736-9) MONO % (test code = 6.2 % 5905-5) EOS % (test code = 1.2 % 713-8) BASO % (test code = 0.2 % 706-2) GRAN MAT x10^3(ANC) 4.55 10*3/uL 1.88-7.09 (test code = 6867238836) IMM GRAN x10^3 (test <0.03 0-0.06 code = 5101390968) LYMPH x10^3 (test code 0.68 10*3/uL 1.32-3.29 L = 731-0) MONO x10^3 (test code 0.35 10*3/uL 0.33-0.92 = 742-7) EOS x10^3 (test code = 0.07 10*3/uL 0.03-0.39 711-2) BASO x10^3 (test code <0.03 0.01-0.07 = 704-7) PLT ESTIMATE (test Decreased Normal A code = 9317-9) Lab Interpretation Abnormal (test code = 11778-9) [facility] Metabolic Panel (NA, K, CL, CO2, GLUCOSE, BUN, CREATININE, CA)2020-02-25 12:11:00 Test Item Value Reference Range Interpretation Comments NA (test code = 139 mmol/L 135-145 9990830331) K (test code = 4.8 mmol/L 3.5-5 6249475723) CL (test code = 104 mmol/L 98-108 6857138556) CO2 TOTAL (test code = 26 mmol/L 23-31 2677189116) AGAP (test code = 2-16 7244820751) BUN (test code = 24 mg/dL 7-23 H 2442992146) GLUCOSE (test code = 266 mg/dL 70-110 H 0250672249) CREATININE (test code = 0.85 mg/dL 0.5-1.04 5421078781) CALCIUM (test code = 9.9 mg/dL 8.6-10.6 8479903355) eGFR Calculation mL/min/1.73m2 (Non-) (test code = 5378396549) eGFR Calculation mL/min/1.73m2 () (test code = 2828382844) MARY (test code = MARY) Association of [...] tests). Lab Interpretation Abnormal (test code = 88077-2) [facility] HospitalHepatic Function Panel (ALB, T.PRO, BILI T, BU/BC, ALT, AST, ALK PHOS)2020-02-25 12:11:00 Test Item Value Reference Range Interpretation Comments TOTAL BILI (test code = 3816666887) 1.3 mg/dL 0.1-1.1 H BILI UNCON (test code = 9240279313) 1.2 mg/dL 0.1-1.1 H BILI CONJ (test code = 7115049486) 0.0 mg/dL 0-0.3 T PROTEIN (test code = 0348386609) 8.1 g/dL 6.3-8.2 ALBUMIN (test code = 8059627703) 3.9 g/dL 3.5-5 ALK PHOS (test code = 9966330703) 119 U/L 34-122 ALTv (test code = 1742-6) 27 U/L 5-35 AST(SGOT) (test code = 5019304229) 45 U/L 13-40 H Lab Interpretation (test code = Abnormal 19625-0) [facility] HospitalLipase [id number] 12:11:00 Test Item Value Reference Range Interpretation Comments LIPASE (test code = 3373868326) 68 U/L 0-220 Lab Interpretation (test code = Normal 28143-5) [facility] HospitalBASIC METABOLIC PANEL (NA, K, CL, CO2, GLUCOSE, BUN, CREATININE, CA)2020-02-22 11:41:00 Test Item Value Reference Range Interpretation Comments NA (test code = 140 mmol/L 135-145 7904047107) K (test code = 3.5 mmol/L 3.5-5 2733868597) CL (test code = 101 mmol/L 98-108 1150231995) CO2 TOTAL (test code = 28 mmol/L 23-31 8118442392) AGAP (test code = 2-16 5789712548) BUN (test code = 24 mg/dL 7-23 H 6617390644) GLUCOSE (test code = 144 mg/dL 70-110 H 7704921566) CREATININE (test code = 0.97 mg/dL 0.5-1.04 4060914911) CALCIUM (test code = 9.5 mg/dL 8.6-10.6 5123423937) eGFR Calculation mL/min/1.73m2 (Non-) (test code = 3577004230) eGFR Calculation mL/min/1.73m2 () (test code = 4609211192) MARY (test code = MARY) Association of [...] tests). Lab Interpretation Abnormal (test code = 53688-1) [facility], [id number] 10:44:00 Test Item Value Reference Range Interpretation Comments AMMONIA (test code = 2788175487) 22 umol/L 9-33 Lab Interpretation (test code = Normal 83552-1) [facility] GLUCOSE (AUTOMATED)2020-02-22 01:15:00 Test Item Value Reference Range Interpretation Comments POCT GLU (test code = 6104402920) 178 mg/dL 70-110 H Lab Interpretation (test code = Abnormal 24856-3) [facility] GLUCOSE (AUTOMATED)2020-02-21 16:39:00 Test Item Value Reference Range Interpretation Comments POCT GLU (test code = 8553373569) 223 mg/dL 70-110 H Lab Interpretation (test code = Abnormal 15726-6) [facility] HospitalAMMONIA, [id number] 15:10:00 Test Item Value Reference Range Interpretation Comments AMMONIA (test code = 7161860206) 30 umol/L 9-33 Lab Interpretation (test code = Normal 41095-1) [facility] GLUCOSE (AUTOMATED)2020-02-21 12:44:00 Test Item Value Reference Range Interpretation Comments POCT GLU (test code = 4393502035) 191 mg/dL 70-110 H Lab Interpretation (test code = Abnormal 86272-3) [facility] WITH [id number] 11:50:00 Test Item Value Reference Range Interpretation [...] RDW-SD (test code = 41.1 fL 39-49.9 01622-9) RDW-CV (test code = 13.1 % 12-15.5 788-0) PLT (test code = See_Comment L [Automated 777-3) message] The sy stem which generated this result transmitted reference range : 166 - 358 10*3/ ?L. The reference r glenn was not used to interpret this result as normal/abnormal . MPV (test code = 12.6 fL 9.5-12.9 66822-7) IPF % (test code = 5.2 % 1.3-7.7 Platelet count 0042658782) measured by fluorescence method. NRBC/100 WBC (test See_Comment [Automat ed code = 6410183662) message] The system which generated this result transmitted reference range : 0.0 - 10.0 /100 WBCs. The refer ence range was not u sed to interpret th is result as normal/abnormal . NRBC x10^3 (test code <0.01 See_Comment [Auto mated = 3959458307) message] The s ystem which generated this result transmitted reference range : 10*3/?L. The reference range was not used to interpret this result as normal/abnormal . GRAN MAT (NEUT) % 59.3 % (test code = 770-8) IMM GRAN % (test code 0.30 % = 1389832779) LYMPH % (test code = 22.5 % 736-9) MONO % (test code = 13.7 % 5905-5) EOS % (test code = 3.9 % 713-8) BASO % (test code = 0.3 % 706-2) GRAN MAT x10^3(ANC) 2.29 10*3/uL 1.88-7.09 (test code = 4841533783) IMM GRAN x10^3 (test <0.03 0-0.06 code = 0078147048) LYMPH x10^3 (test code 0.87 10*3/uL 1.32-3.29 L = 731-0) MONO x10^3 (test code 0.53 10*3/uL 0.33-0.92 = 742-7) EOS x10^3 (test code = 0.15 10*3/uL 0.03-0.39 711-2) BASO x10^3 (test code <0.03 0.01-0.07 = 704-7) PLT ESTIMATE (test Decreased Normal A code = 9317-9) Lab Interpretation Abnormal (test code = 90106-1) [facility] Metabolic Panel (NA, K, CL, CO2, GLUCOSE, BUN, CREATININE, CA)2020-02-21 11:23:00 Test Item Value Reference Range Interpretation Comments NA (test code = 138 mmol/L 135-145 9967679557) K (test code = 3.5 mmol/L 3.5-5 1279438216) CL (test code = 103 mmol/L 98-108 4123157575) CO2 TOTAL (test code = 27 mmol/L 23-31 9505109751) AGAP (test code = 2-16 8516894783) BUN (test code = 22 mg/dL 7-23 0652243965) GLUCOSE (test code = 189 mg/dL 70-110 H 0091859350) CREATININE (test code = 0.65 mg/dL 0.5-1.04 7771548203) CALCIUM (test code = 9.2 mg/dL 8.6-10.6 7418878992) eGFR Calculation mL/min/1.73m2 (Non-) (test code = 0691348147) eGFR Calculation mL/min/1.73m2 () (test code = 4419399202) MARY (test code = MARY) Association of [...] tests). Lab Interpretation Abnormal (test code = 46533-1) [facility]PO[facility])2020-02-21 01:41:00 Test Item Value Reference Range Interpretation Comments POCT GLU (test code = 0805276629) 196 mg/dL 70-110 H Lab Interpretation (test code = Abnormal 65931-4) [facility] HospitalGlycosylated Hemoglobin (A1C)2020-02-21 01:36:00 Test Item Value [...] Indicated Lab Interpretation Abnormal (test code = 93297-2) [facility] HospitalMagnesium [id number] 01:32:00 Test Item Value Reference Range Interpretation Comments MAGNESIUM (test code = 5132953035) 1.6 mg/dL 1.7-2.4 L Lab Interpretation (test code = Abnormal 41109-1) [facility] HospitalLipid Panel (Total Cholesterol, Triglycerides, HDL) - [id number] 01:30:00 Test Item Value Reference Range Interpretation Comments CHOL (test code = 180 mg/dL 120-200 0511780544) HDL (test code = 45 mg/dL >50 L 6675989085) HDLC RATIO (test code = See_Comment [Au tomated message] 0573946485) The system [employer] generated this result transmit carlitos reference range : <=4.5. The refe rence range was not u sed to interpret th is result as normal/abnormal . TRIG (test code = 88 mg/dL 30-170 9910554842) LDL CHOL (test code = 117 mg/dL See_Comment [Auto mated message] 26067-2) The system [employer] generated this result transmit carlitos reference range : <=160. The refe rence range was not u sed to interpret th is result as normal/abnormal . VLDL (test code = 18 mg/dL 5-60 7761748445) Lab Interpretation (test Abnormal code = 95861-7) [facility] HospitalCORONAVIRUS COVID-19 [id number] 23:38:00 Test Item Value Reference Range Interpretation Comments SARS-CoV-2 (test code = Not Detected Not Detected 75045-9) MARY (test code = MARY) ID NOW COVID-19 Assay is an isothermal nucleic acid amplification test intended for the qualitative detection of nucleic acid from SARS-CoV-2 viral RNA in nasopharyngeal (WASTE EXAMINER) specimens. It is used under Emergency Use [...] indicated. Lab Interpretation Normal (test code = 58838-7) [facility] HospitalXR CHEST 2 [id number] 23:00:37Impression: No focal consolidation or pneumothorax. Small [...] reviewed this study and agree with the abovereport.[facility] HospitalURINALYSIS2020-04-06 22:53:00 Test Item Value Reference Range Interpretation Comments APPEARANCE (test code = Hazy Clear A 9213576074) COLOR (test code = Denita Yellow A 6655728808) PH (test code = 4.8-8.0 0885430919) SP GRAVITY (test code = 1.003-1.030 H 8461513684) GLU U QUAL (test code = 50 mg/dL Normal A 7077795770) BLOOD (test code = Negative Negative INTERFERE NCE FROM 2035905539) ASCORBIC ACID M AY CAUSE FALSE NEG ATIVE RESULT KETONES (test code = Negative Negative 8608410447) PROTEIN (test code = 30 mg/dL Negative A 2887-8) UROBILIN (test code = 4.0 mg/dL Normal A 4845076950) BILIRUBIN (test code = 2 mg/dL Negative A 8365226027) NITRITE (test code = Negative Negative 2564439602) LEUK SABA (test code = Negative Negative 8666457184) RBC/HPF (test code = <1 See_Comment [Autom ated message] 3795817246) The system [employer] generated this result transmitted ref erence range: 0 - 3 HP F. The reference range was not used to int erpret this result as normal/abnormal . WBC/HPF (test code = See_Comment H [Autom ated message] 6929390307) The system [employer] generated this result transmitted ref erence range: 0 - 5 HP F. The reference range was not used to int erpret this result as normal/abnormal . BACTERIA (test code = Few Negative A 9810125748) MUCOUS (test code = Marked Negative LPF A 7334178959) SQ EPITH (test code = HPF 8217906598) Ictotest (test code = Negative 8463953997) Lab Interpretation Abnormal (test code = 30543-5) [facility] HospitalTROPONIN [id number] 22:41:00 Test Item Value Reference Range Interpretation Comments TROPONIN I (test 0.010 ng/mL See_Comment [Automated code = 1537899362) message] The system which generated this result [...] ? Lab Interpretation Normal (test code = 71312-3) [facility] HospitalCT HEAD WO [id number] 22:40:19Addendum by Ronaldo Link MD on 02/20/2020 [...] less likely focal hemorrhage. Attention onfollow-up is recommended.[facility]. METABOLIC PANEL (09464)2020-02-20 22:30:00 Test Item Value Reference Range Interpretation Comments NA (test code = 139 mmol/L 135-145 6802305973) K (test code = 3.8 mmol/L 3.5-5 1973609642) CL (test code = 104 mmol/L 98-108 9409001033) CO2 TOTAL (test code = 27 mmol/L 23-31 9879151479) AGAP (test code = 2-16 1956140568) BUN (test code = 23 mg/dL 7-23 3143266773) GLUCOSE (test code = 244 mg/dL 70-110 H 7203864153) CREATININE (test code = 0.71 mg/dL 0.5-1.04 8358187341) TOTAL BILI (test code = 1.0 mg/dL 0.1-1.4 3129956309) CALCIUM (test code = 9.4 mg/dL 8.6-10.6 3211336237) T PROTEIN (test code = 7.3 g/dL 6.3-8.2 7863254554) ALBUMIN (test code = 3.4 g/dL 3.5-5 L 7145408142) ALK PHOS (test code = 101 U/L 34-122 0185161740) ALTv (test code = 30 U/L 5-35 1742-6) AST(SGOT) (test code = 76 U/L 13-40 H 7488736068) eGFR Calculation mL/min/1.73m2 (Non-) (test code = 3789768186) eGFR Calculation mL/min/1.73m2 () (test code = 3024839604) MARY (test code = MARY) Association of [...] tests). Lab Interpretation Abnormal (test code = 46812-7) [facility] HospitalLIPASE2020-04-06 22:30:00 Test Item Value Reference Range Interpretation Comments LIPASE (test code = 5019721199) 62 U/L 0-220 Lab Interpretation (test code = Normal 20264-7) [facility] HospitalAMMONIA, [id number] 22:29:00 Test Item Value Reference Range Interpretation Comments AMMONIA (test code = 5998229424) 48 umol/L 9-33 H Lab Interpretation (test code = Abnormal 46872-4) [facility] HospitalCB WITH [id number] 22:19:00 Test Item Value Reference Range Interpretation Comments WBC (test code = See_Comment [Automated 5090-2) message] The sy stem which generated this result transmitted reference range : 4.30 - 11.10 10*3/?L. The reference range was not used to interpret this result as normal/abnormal . RBC (test code = See_Comment [Automated 019-8) message] The sy stem which generated this [...] RDW-SD (test code = 41.2 fL 39-49.9 84784-6) RDW-CV (test code = 13.1 % 12-15.5 788-0) PLT (test code = See_Comment L [Automated 777-3) message] The sy stem which generated this result transmitted reference range : 166 - 358 10*3/ ?L. The reference r glenn was not used to interpret this result as normal/abnormal . MPV (test code = 11.7 fL 9.5-12.9 90658-7) NRBC/100 WBC (test See_Comment [Automat ed code = [id number]) message] The system which generated this result transmitted reference range : 0.0 - 10.0 /100 WBCs. The refer ence range was not u sed to interpret th is result as normal/abnormal . NRBC x10^3 (test code <0.01 See_Comment [Auto mated = [id number]) message] The s ystem which generated this result transmitted reference range : 10*3/?L. The reference range was not used to interpret this result as normal/abnormal . GRAN MAT (NEUT) % 66.4 % (test code = 770-8) IMM GRAN % (test code 0.30 % = 7549986249) LYMPH % (test code = 17.6 % 736-9) MONO % (test code = 11.7 % 5905-5) EOS % (test code = 3.3 % 713-8) BASO % (test code = 0.7 % 706-2) GRAN MAT x10^3(ANC) 4.04 10*3/uL 1.88-7.09 (test code = 9347444200) IMM GRAN x10^3 (test <0.03 0-0.06 code = 5854255362) LYMPH x10^3 (test code 1.07 10*3/uL 1.32-3.29 L = 731-0) MONO x10^3 (test code 0.71 10*3/uL 0.33-0.92 = 742-7) EOS x10^3 (test code = 0.20 10*3/uL 0.03-0.39 711-2) BASO x10^3 (test code 0.04 10*3/uL 0.01-0.07 = 704-7) Lab Interpretation Abnormal (test code = 68061-5) [facility] 2019-09-28 07:59:00 Test Item Value Reference Range Interpretation Comments SCAN RESULT (test code = 1691613) RESPIRATORY PANEL [id number] 13:14:00 Test Item Value Reference Range Interpretation [...] [facility] Molecular Diagnostics Laboratory using the [employer] Respiratory Panel. It is FDA cleared and has been verified and approved by the [facility] Molecular Diagnostics Laboratory for clinical use on nasopharyngeal swab specimens.The performance of the FilmArrayRP has not been established in individuals who received influenza vaccine. Recent administration of a nasal influenza vaccine may cause false positive results for Influenza A and/orInfluenza B.POCT-GLUCOSE [id number] 13:03:00 Test Item Value Reference Range Interpretation Comments POC-GLUCOSE METER 258 mg/dL 70-110 H : TESTED A T [facility] 6720 (BEAKER) (test code = [facility], 1538) 33662: Mechanical Systems Designer/Techni bravo ID = [id number] for Yue Kennedy POCT-GLUCOSE [id number] 08:53:00 Test Item Value Reference Range Interpretation Comments POC-GLUCOSE METER 197 mg/dL 70-110 H : TESTED A T [facility] 6720 (BEAKER) (test code = [facility], 1538) 06645: Mechanical Systems Designer/Techni bravo ID = [id number] for JOSE LUIS MIX POCT-GLUCOSE [id number] 23:16:00 Test Item Value Reference Range Interpretation Comments POC-GLUCOSE METER 246 mg/dL 70-110 H : TESTED A T [facility] 6720 (BEAKER) (test code = [facility], 1538) 36067: Mechanical Systems Designer/Techni bravo ID = [id number] for GONZÁLEZ SIMS POCT-GLUCOSE [id number] 18:13:00 Test Item Value Reference Range Interpretation Comments POC-GLUCOSE METER 254 mg/dL 70-110 H : TESTED A T [facility] 6720 (BEAKER) (test code = [facility], 1538) 03651: Mechanical Systems Designer/Techni bravo ID = [id number] for ST OJCIC, NADA POCT-GLUCOSE [id number] 13:25:00 Test Item Value Reference Range Interpretation Comments POC-GLUCOSE METER 201 mg/dL 70-110 H : TESTED A T [facility] 6720 (BEAKER) (test code = [facility], 1538) 68744: Mechanical Systems Designer/Techni bravo ID = [id number] for ST OJCIC, NADA POCT-GLUCOSE [id number] 08:22:00 Test Item Value Reference Range Interpretation Comments POC-GLUCOSE METER 184 mg/dL 70-110 H : TESTED A T [facility] 6720 (BEAKER) (test code = [facility], [facility]8) 41369: Mechanical Systems Designer/Techni bravo ID = [id number] for RILEY KNOX POCT-GLUCOSE [id number] 23:53:00 Test Item Value Reference Range Interpretation Comments POC-GLUCOSE METER 297 mg/dL 70-110 H : TESTED A T [facility] 6720 (BEAKER) (test code = [facility], [facility]8) 18158: Mechanical Systems Designer/Techni bravo ID = [id number] for MICHAEL CRAIG POCT-GLUCOSE [id number] 18:55:00 Test Item Value Reference Range Interpretation Comments POC-GLUCOSE METER 256 mg/dL 70-110 H : TESTED A T [facility] 6720 (BEAKER) (test code = [facility], [facility]8) 39342: Mechanical Systems Designer/Techni bravo ID = [id number] for DO BBINS, OFELIA POCT-GLUCOSE [id number] 18:49:00 Test Item Value Reference Range Interpretation Comments POC-GLUCOSE METER 213 mg/dL 70-110 H : TESTED A T [facility] 6720 (BEAKER) (test code = [facility], [facility]8) 40519: Mechanical Systems Designer/Techni bravo ID = [id number] for DO BBINS, OFELIA POCT-GLUCOSE [id number] 18:44:00 Test Item Value Reference Range Interpretation Comments POC-GLUCOSE METER 216 mg/dL 70-110 H : TESTED A T [facility] 6720 (BEAKER) (test code = [facility], [facility]8) 74702: Mechanical Systems Designer/Techni bravo ID = [id number] for DO BBINS, OFELIA CBC W/PLT COUNT & AUTO [id number] 09:27:00 Test Item Value Reference Range Interpretation [...] PERCENT (BEAKER) (test code = 2801) POCT-GLUCOSE [id number] 00:33:00 Test Item Value Reference Range Interpretation Comments POC-GLUCOSE METER 330 mg/dL 70-110 H : Notified RN/MD: (SAIDA) (test code = TESTED AT [facility] 6720 1538) [facility] [address]: Mechanical Systems Designer/Techni bravo ID = [id number] for Kathryn Hidalgo POCT-GLUCOSE [id number] 18:45:00 Test Item Value Reference Range Interpretation Comments POC-GLUCOSE METER 335 mg/dL 70-110 H : Notified RN/MD: ([facility]) (test code = [facility] 1538[facility], [address]: Mechanical Systems Designer/Techni bravo ID = [id number] for JASE TYLER BLOOD GAS, [id number] 15:34:00 Test Item Value Reference Range Interpretation [...] has been upright for 15 minutes.POCT- GLUCOSE [id number] 10:59:00 Test Item Value Reference Range Interpretation Comments POC-GLUCOSE METER 185 mg/dL 70-110 H : TESTED A T [facility] 6720 ([facility]) (test code = [facility], 1538) 12258: Mechanical Systems Designer/Techni bravo ID = [id number] for MARIA GUADALUPE [facility] POCT-GLUCOSE [id number] 07:44:00 Test Item Value Reference Range Interpretation Comments POC-GLUCOSE METER 235 mg/dL 70-110 H : TESTED A T [facility] 6720 ([facility]) (test code = [facility], 1538) 73412: Mechanical Systems Designer/Techni bravo ID = [id number] for TWYLA HAWKINS BILIRUBIN, [id number] 06:38:00 Test Item Value Reference Range Interpretation Comments BILIRUBIN DIRECT 0.3 mg/dL 0.1-0.5 Specimen sl ightly (BEAKER) (test code = hemoly zed 706) POCT-GLUCOSE [id number] 23:23:00 Test Item Value Reference Range Interpretation Comments POC-GLUCOSE METER 367 mg/dL 70-110 H : TESTED A T [facility] 6720 (BEAKER) (test code = [facility], 1538) 40708: Mechanical Systems Designer/Techni bravo ID = [id number] for MICHAEL CRAIG POCT-GLUCOSE [id number] 18:06:00 Test Item Value Reference Range Interpretation Comments POC-GLUCOSE METER 296 mg/dL 70-110 H : TESTED A T [facility] 6720 (BEAKER) (test code = [facility], 1538) 83719: Mechanical Systems Designer/Techni bravo ID = [id number] for FLORENCIO CORDOBA POCT-GLUCOSE [id number] 13:06:00 Test Item Value Reference Range Interpretation Comments POC-GLUCOSE METER 234 mg/dL 70-110 H : TESTED A T [facility] 6720 (BEAKER) (test code = [facility], 1538) 59674: Mechanical Systems Designer/Techni bravo ID = [id number] for TWYLA HAWKINS CT, ABDOMEN, [id number] 12:02:00Please scan with liver protocolFINAL REPORT TECHNIQUE: [...] MDReport Verified Date/Time: 09/16/2019 12:02:29 Reading Location: [facility] C013Y CT Body Reading Room POCT-GLUCOSE METER 2019-09-16 10:32:00 Test Item Value Reference Range Interpretation Comments POC-GLUCOSE METER 241 mg/dL 70-110 H : TESTED A T [facility] 6720 (BEAKER) (test code = [place], 1538) 55097: Mechanical Systems Designer/Techni bravo ID = [id number] for FLORENCIO CORDOBA HEPATIC FUNCTION [id number] 07:48:00 Test Item Value Reference Range Interpretation [...] = 20 U/L 6-55 347) BASIC METABOLIC [id number] 07:48:00 Test Item Value Reference Range Interpretation [...] NOT APPLICABLE FOR DIALYSIS PATIEN TS. PROTHROMBIN [id number] 07:16:00 Test Item Value Reference Range Interpretation [...] 2.5-3.5 for patients wiht mechanical heart valves.POCT-GLUCOSE [id number] 06:57:00 Test Item Value Reference Range Interpretation Comments POC-GLUCOSE METER 241 mg/dL 70-110 H : TESTED A T [facility] 6720 (BEAKER) (test code = [place], 1538) 91659: Mechanical Systems Designer/Techni bravo ID = [id number] for AL BETH CBC W/PLT COUNT & AUTO [id number] 06:53:00 Test Item Value Reference Range Interpretation [...] PERCENT (BEAKER) (test code = 2801) POCT-GLUCOSE [id number] 17:32:00 Test Item Value Reference Range Interpretation Comments POC-GLUCOSE METER 259 mg/dL 70-110 H : TESTED A T [facility] 6720 (BEAKER) (test code = [place], 1538) 04150: Mechanical Systems Designer/Techni bravo ID = [id number] for TWYLA HAWKINS POCT-GLUCOSE [id number] 15:11:00 Test Item Value Reference Range Interpretation Comments POC-GLUCOSE METER 200 mg/dL 70-110 H : Will Rep eat Test: (BEAKER) (test code = Notifi ed RN/MD: Verify 1538) w/ Lab Draw: TE STED AT [facility] 67[address] [facility], 770 30: Mechanical Systems Designer/Techni bravo ID = [id number] for NG BARBARA, DANNY HEMOGLOBIN [id number] 13:55:00 Test Item Value Reference Range Interpretation Comments HEMOGLOBIN A1C (BEAKER) (test code = 9.4 % 4.3-6.1 H 368) RAD, CHEST, 1 VIEW, NON [id number] 13:32:00Reason for exam:->SOBShould this be performed at the bedside?->YesFINAL REPORT INDICATION: SOB COMPARISON: None TECHNIQUE: Single frontal view ofthe chest. FINDINGS: Lungs and pleura: Clear lungs. No effusion.Heart and mediastinum: Normal heart size. Unremarkable mediastinal contours.Osseous structures: No acute abnormality.Other: None. IMPRESSION: No acute intrathoracic abnormality. Signed: Mildred Sampson Verified Date/Time: 09/15/2019 13:32:27 Reading Location: [facility] Radiology Reading Room POCT-GLUCOSE [id number] 12:11:00 Test Item Value Reference Range Interpretation Comments POC-GLUCOSE METER 227 mg/dL 70-110 H : TESTED A T [facility] 6720 (BEAKER) (test code = [facility], 1538) 48579: Mechanical Systems Designer/Techni bravo ID = [id number] for ANGI REGISREYES MAXX (CELLAVISION MANUAL DIFF)2019-09-15 09:13:00 Test Item Value [...] 3438) Received comment: User comments: Slide comments:POCT-GLUCOSE [id number] 08:34:00 Test Item Value Reference Range Interpretation Comments POC-GLUCOSE METER 219 mg/dL 70-110 H : TESTED A T [facility] 6720 (BEAKER) (test code = [place], 1538) 51985: Mechanical Systems Designer/Techni bravo ID = [id number] for Or January arana [id number] 07:30:00 Test Item Value Reference Range Interpretation Comments FERRITIN (BEAKER) (test code = 361) 11 ng/mL 5-275 HEPATITIS A ANTIBODY, [id number] 06:17:00 Test Item Value Reference Range Interpretation Comments HEPATITIS A IGG ANTIBODY (BEAKER) Reactive Nonreactive A (test code = 2797) CBC W/PLT COUNT & AUTO [id number] 05:50:00 Test Item Value Reference Range Interpretation [...] (BEAKER) (test code = 413) COMPREHENSIVE METABOLIC [id number] 05:49:00 Test Item Value Reference Range Interpretation [...] FOR DIALYSIS PATIEN TS. HEPATITIS B SURFACE [id number] 05:48:00 Test Item Value Reference Range Interpretation Comments HEPATITIS B SURFACE ANTIBODY < mIU/mL <8.0 (BEAKER) (test code = 647) HEPATIC FUNCTION [id number] 05:44:00 Test Item Value Reference Range Interpretation [...] 0-100 H (test code = 700) PROTHROMBIN [id number] 05:23:00 Test Item Value Reference Range Interpretation [...] 2.5-3.5 for patients wiht mechanical heart valves.POCT-GLUCOSE [id number] 21:42:00 Test Item Value Reference Range Interpretation Comments POC-GLUCOSE METER 286 mg/dL 70-110 H : TESTED A T [facility] 6720 ([employer]) (test code = [place], 1538) 21020: Mechanical Systems Designer/Techni bravo ID = [id number] for BAILEY SANZ SAKINAKeren POCT-GLUCOSE [id number] 19:12:00 Test Item Value Reference Range Interpretation Comments POC-GLUCOSE METER 219 mg/dL 70-110 H : TESTED A T [facility] 6720 (BEAKER) (test code = [place], 1538) 81159: Mechanical Systems Designer/Techni bravo ID = [id number] for RUFINO HIGGINS CREATININE, RANDOM [id number] 19:07:00 Test Item Value Reference Range Interpretation Comments CREATININE URINE (BEAKER) (test 63.7 mg/dL code = 375) Reference Range: No NormalsSODIUM, RANDOM [id number] 19:07:00 Test Item Value Reference Range Interpretation Comments SODIUM URINE (BEAKER) (test code = 66 meq/L 243) Reference Range: No NormalsURINALYSIS W/ REFLEX URINE [id number] 18:51:00 Test Item Value Reference Range Interpretation [...] 173 mg/dL 22-293 (test code = 638) [id number] 17:00:00 Test Item Value Reference Range Interpretation Comments ALPHA-1 ANTITRYPSIN (BEAKER) 104.20 mg/dL 90.00-200.00 (test code = 502) [id number] 15:44:00 Test Item Value Reference Range Interpretation Comments FERRITIN (BEAKER) (test code = 361) 4 ng/mL 5-275 L HEMOGLOBIN AND [id number] 14:54:00 Test Item Value Reference Range Interpretation [...] mg/dL 540-1,822 (test code = 427) POCT-GLUCOSE [id number] 13:43:00 Test Item Value Reference Range Interpretation Comments POC-GLUCOSE METER 175 mg/dL 70-110 H : Notified RN/MD: TESTED (BEAKER) (test code AT [place] [address] [address] = 1538) [facility], [facility] 30: Mechanical Systems Designer/Techni bravo ID = [id number] for MOOD Y, SHAWNTELL POCT-GLUCOSE [id number] 09:14:00 Test Item Value Reference Range Interpretation Comments POC-GLUCOSE METER 200 mg/dL 70-110 H : Notified RN/MD: TESTED (BEAKER) (test code AT [place] [address] [place] = 1538) [facility], [facility] 30: Mechanical Systems Designer/Techni bravo ID = [id number] for MOOD Y, SHAWNTELL HEPATITIS PANEL, [id number] 03:41:00 Test Item Value Reference Range Interpretation Comments HEPATITIS A IGM ANTIBODY (BEAKER) Nonreactive Nonreactive (test code = 498) HEPATITIS B CORE IGM ANTIBODY Nonreactive Nonreactive (BEAKER) (test code = 645) HEPATITIS C ANTIBODY (BEAKER) Nonreactive Nonreactive (test code = 367) HEPATITIS B SURFACE ANTIGEN (2) Nonreactive Nonreactive (BEAKER) (test code = 2585) TROPONIN [id number] 03:25:00 Test Item Value Reference Range Interpretation [...] H (test code = 700) BASIC METABOLIC [id number] 03:12:00 Test Item Value Reference Range Interpretation [...] APPLICABLE FOR DIALYSIS PATIEN TS. HEPATIC FUNCTION [id number] 03:12:00 Test Item Value Reference Range Interpretation [...] slightly (test code = 347) hemolyzed PROTHROMBIN [id number] 03:09:00 Test Item Value Reference Range Interpretation [...] mechanical heart valves.CBC W/PLT COUNT & AUTO [id number] 02:56:00 Test Item Value Reference Range Interpretation [...] 0-1 GRANULOCYTES-RELATIVE PERCENT (BEAKER) (test code = 4751)
[2023-08-29 19:53] LABS: Specific Gravity 1.014 (1.005-1.030); Urine Bacteria 20-50 /HPF (<20); Urine Bilirubin NEGATIVE (Negative); Urine Blood Trace (Negative); Urine Clarity Extremely Turbid (Clear); Urine Color Light-Yellow (Yellow); Urine Glucose NEGATIVE (Negative); Urine Mucus Slight /HPF (None Seen); Urine Protein NEGATIVE (Negative); Urine RBC <5 /HPF (None Seen); Urine Urobilinogen Normal (Normal); Urine WBC Clump Occasional /HPF (None Seen); Urine pH 5.5 (5.0-7.0)
[2023-08-29 20:01] LABS: Barbiturates NEGATIVE (NEGATIVE); Benzodiazepines NEGATIVE (NEGATIVE); Cocaine NEGATIVE (NEGATIVE); METHAMPHETAM NEGATIVE (NEGATIVE); Opiates NEGATIVE (NEGATIVE); Phencyclidine NEGATIVE (NEGATIVE); THC Cannibis NEGATIVE (NEGATIVE)
--- NOTE | 2023-08-29 20:19 | RAD REPORT ---
EXAM DESCRIPTION: CT - Head Brain Wo Cont - 08/29/2023 8:01 pm CLINICAL HISTORY: Alteration of awareness/confusion COMPARISON: April 2023 TECHNIQUE: Computed axial tomography of the head was obtained. IV contrast was not requested. All CT scans are performed using dose optimization technique as appropriate and may include automated exposure control or mA/KV adjustment according to patient size. FINDINGS: An intracranial bleed is not seen The ventricles are normal in caliber No extra-axial fluid collection is noted. Marked low-density areas within periventricular, deep and subcortical white matter likely represent i schemic changes secondary to small vessel disease. Fluid within the sinuses/ mastoids is not seen. Mild chronic sinusitis IMPRESSION: No acute intracranial abnormality is seen If patient's symptoms persist MRI of the brain would be recommended
[2023-08-29 20:26] LABS: Methadone ND (NEGATIVE)
[2023-08-29 21:25] LABS: Absolute Lymphocytes (CBC) 0.3 K/uL (0.7-4.9); Hematocrit 22.8 % (36.0-45.0); Lymphocytes % 5.6 % (15.3-44.8); MCV 85.5 fL (80-100); MPV 8.3 fL (7.6-11.3); Platelets 90 thou/uL (152-406); RBC Red Blood Cell Count 2.67 M/uL (3.86-4.86)
[2023-08-29 21:37] LABS: Protime INR 1.3
[2023-08-29 21:49] LABS: Albumin 3.2 g/dL (3.4-5.0); Bilirubin Total 1.1 mg/dL (0.2-1.0); Protein, Total 6.1 g/dL (6.4-8.2)
[2023-08-29 21:52] LABS: Potassium 5.1 mEq/L (3.5-5.1)
[2023-08-29] MEDS ORDERED: CEFTRIAXONE 2000 MG/VIAL ONE (22:24)
[2023-08-29] MEDS ORDERED: NA CHLORIDE 0.9% 100 ML ONE (22:24)
[2023-08-29] MEDS ORDERED: NA CHLORIDE 0.9% 1,000 ML ONE (22:24)
--- NOTE | 2023-08-29 22:44 | RAD REPORT ---
EXAM DESCRIPTION: CT - Chest Abd Pelvis Wo Con - 08/29/2023 10:28 pm CLINICAL HISTORY: Chest and abdominal pain COMPARISON: June 2023 TECHNIQUE: Computed axial tomography of the chest, abdomen and pelvis was obtained. Oral contrast wa s given. IV contrast was not requested. All CT scans are performed using dose optimization technique as appropriate and may include automated exposure control or mA/KV adjustment according to patient size. FINDINGS: The evaluation of mediastinum, loni, vessels and solid organs is limited secondary to the lack of IV contrast administration Moderate left pleural effusion. Lungs are clear No mediastinal or hilar lymphadenopathy is seen. A pericardial effusion is not seen. A cirrhotic liver. Prominent varices. Spleen, adrenals and kidneys unremarkable Guzman catheter within the bladder No evidence of diverticulitis. Moderate ascites IMPRESSION: Moderate left pleural effusion Moderate ascites Cirrhosis
--- NOTE | 2023-08-29 23:16 | ER ---
Nurse's Notes [facility] Name: Rena Burch Age: 72 yrs Sex: Female : 1950 Arrival Date: 08/29/2023 Time: 18:46 Bed 3 Private MD: Diagnosis: Altered mental status, unspecified;UTI/ Urinary tract infection, site not specified Presentation: 08/29 18:54 Chief complaint: EMS states: AMS reported by family. Pt has hx of Liver failure and has aa5 been given lactulose by family today. Pt had paracentesis completed yesterday at Day Surgery department. 18:54 Coronavirus screen: At this time, the client does not indicate any symptoms associated aa5 with coronavirus-19. Ebola Screen: Patient denies travel to an Ebola-affected area in the 21 days before illness onset. Initial Sepsis Screen: Does the patient meet any 2 criteria? No. Patient's initial sepsis screen is negative. Does the patient have a suspected source of infection? No. Patient's initial sepsis screen is negative. Risk Assessment: Do you want to hurt yourself or someone else? Patient reports no desire to harm self or others. Onset of symptoms was August 2023. 18:54 Acuity: CHEIKH 2 aa5 18:54 Method Of Arrival: EMS: [facility] aa5 Triage Assessment: 22:02 General: Appears uncomfortable, Behavior is calm, agitated. Pain: Complains of pain in cm10 back. EENT: No deficits noted. No signs and/or symptoms were reported regarding the EENT system. Neuro: No deficits noted. Level of Consciousness is confused. Cardiovascular: No deficits noted. Rhythm is sinus rhythm. Respiratory: No deficits noted. Airway is patent Respiratory effort is even, unlabored, Respiratory pattern is regular, symmetrical. GI: Stools are reported to be loose, diarrhea. Historical: - Allergies: 18:57 No Known Allergies; aa5 - PMHx: 18:57 COPD; Diabetes - IDDM; Hypertension; Paracentesis; Psoriatic Arthritis; Liver failure aa5 (currently on liver transplant list); - Immunization history:: Adult Immunizations unknown. - Social history:: Smoking status: unknown. Screenin:03 [facility] ED Fall Risk Assessment (Adult) History of falling in the last 3 months, cm10 including since admission No falls in past 3 months (0 pts) Confusion or Disorientation Yes (5 pts) Intoxicated or Sedated No (0 pts) Impaired Gait Yes (1 pt) Mobility Assist Device Used Yes (1 pt) Altered Elimination Yes (1 pt) Score/Fall Risk Level 3 or more points = High Risk Oriented to surroundings, Maintained a safe environment, Hourly rounding (assess needs \T\ fall precautionary measures) done. Abuse screen: Denies threats or abuse. Denies injuries from another. Nutritional screening: No deficits noted. Tuberculosis screening: No symptoms or risk factors identified. Assessment: 19:25 Reassessment: Pt was cleaned of stool, pt cleaned with soap and water, clean brief aa5 applied, clean sheets applied. . 22:00 Reassessment: Patient appears in no apparent distress at this time. Patient and/or cm10 family updated on plan of care and expected duration. Pain level reassessed. 08/30 00:34 Reassessment: unable to give report. Nurse unavailable. cm10 Vital Signs: 08/29 18:54 BP 135 / 82; Pulse 73; Resp 18 S; Temp 97.7(TE); Pulse Ox 100% on R/A; aa5 08/30 00:31 BP 142 / 50; Pulse 68; Resp 16; Pulse Ox 100% ; cm10 01:00 BP 131 / 64; Pulse 66; Resp 18 S; Pulse Ox 100% on R/A; cm10 ED Course: 08/29 18:54 Patient arrived in ED. aa5 18:54 Arm band placed on. aa5 19:02 Denny Teixeira PA is PHCP. cp 19:02 Porter Rivas MD is Attending Physician. cp 19:03 Triage completed. aa5 19:35 Guzman cath inserted, using sterile technique, 14 Fr., by me, balloon inflated, to aa5 gravity drainage, urine specimen collected. other Urine sent to lab Patient tolerated well. Guzman completed as VO. 20:03 CT Head Brain wo Cont In Process Unspecified. EDMS 21:10 Initial lab(s) drawn, by me, sent to lab. First set of blood cultures drawn by me. cm10 21:16 CBC with Diff Sent. cm10 21:16 CMP Sent. cm10 21:16 Lactate w/ 2H reflex if indic. Sent. cm10 21:16 Protime (+inr) Sent. cm10 21:16 Ptt, Activated Sent. cm10 21:16 Inserted saline lock: 18 gauge in right wrist, using aseptic technique. Blood collected.cm10 22:04 Patient has correct armband on for positive identification. Placed in gown. Bed in low cm10 position. Call light in reach. Side rails up X2. Adult w/ patient. Provided Education on: Er process and procedures. . 22:29 CT Chest Abdomen Pelvis W/O Contrast In Process Unspecified. EDMS 22:52 XRAY Chest (1 view) In Process Unspecified. EDMS 23:11 Zhang Erwin MD is Hospitalizing Provider. cp 08/30 00:32 No provider procedures requiring assistance completed. Patient admitted, IV remains in cm10 place. Administered Medications: 08/29 22:53 Not Given (Physician Discretion): ns 0.9% 1000 ml IV at 1 bolus Per protocol; 1000 mL cp bolus 08/30 00:34 Drug: Rocephin IV 2 grams IV at calculated rate once; Given slow IV push per pharmarcy cm10 instructions Route: IV; Rate: calculated rate; Site: right wrist; Medication: 08/29 22:03 VIS not applicable for this client. cm10 Output: 08/30 00:32 Urine: 975ml (Guzman); Total: 975ml. cm10 Outcome: 08/29 23:16 Decision to Hospitalize by Provider. cp 08/30 01:08 Admitted to Med/surg accompanied by tech, via stretcher, room 219, Report called to cm10 LAINA Lezama Condition: good 01:35 Patient left the ED. jb4 Signatures: Dispatcher [employer] EDClaire Richards, RN RN aa5 Denny Teixeira PA PA Enrike Small, RN RN jb4 Apple Swain, RN RN cm10
--- NOTE | 2023-08-29 23:16 | EDPHYS ---
Physician Documentation [facility] Name: Rena Burch Age: 72 yrs Sex: Female : 1950 Arrival Date: 08/29/2023 Time: 18:46 Bed 3 Private MD: ED Physician Porter Rivas HPI: 08/29 19:07 This 72 yrs old Female presents to ER via EMS with complaints of Altered Mental Status. cp 19:07 The patient presents with agitation, confusion. Onset: The symptoms/episode cp began/occurred today, reported last known normal was last night. Possible causes: elevated ammonia level due to known liver failure. Associated signs and symptoms: Pertinent positives: abdominal pain, combativeness, confusion, Pertinent negatives: chest pain. Patient's baseline: Neuro: alert and fully oriented, Motor: no deficits, Ambulation: walks without assistance, Speech: normal. Historical: - Allergies: 18:57 No Known Allergies; aa5 - PMHx: 18:57 COPD; Diabetes - IDDM; Hypertension; Paracentesis; Psoriatic Arthritis; Liver failure aa5 (currently on liver transplant list); - Immunization history:: Adult Immunizations unknown. - Social history:: Smoking status: unknown. ROS: 19:10 Constitutional: Negative for fever, cp 19:10 Cardiovascular: Negative for chest pain, cp 19:10 Abdomen/GI: Negative for active vomiting, 19:10 Neuro: Positive for altered mental status, 19:10 Unable to obtain ROS due to altered mental status, Exam: 19:15 Constitutional: The patient appears in no acute distress, alert, awake, cp non-diaphoretic, well developed, well nourished, 19:15 Head/Face: Normocephalic, atraumatic. cp 19:15 Eyes: Periorbital structures: appear normal, Pupils: equal, round, and reactive to light and accomodation, Conjunctiva: normal, no exudate, no injection, Sclera: no appreciated abnormality, Lids and lashes: appear normal, bilaterally, 19:15 ENT: External ear(s): are unremarkable, Nose: is normal, Mouth: Lips: moist, Oral mucosa: pink and intact, moist, Posterior pharynx: is normal, airway is patent, no erythema, no exudate, 19:15 Neck: ROM/movement: is normal, is supple, no meningismus, no nuchal rigidity, 19:15 Chest/axilla: Inspection: normal, 19:15 Cardiovascular: Rate: normal, Rhythm: regular, Edema: is not appreciated, JVD: is not appreciated, 19:15 Respiratory: the patient does not display signs of respiratory distress, Respirations: normal, Breath sounds: are clear throughout, no decreased breath sounds, no stridor, no wheezing, 19:15 Abdomen/GI: Inspection: distension, that is mild, Bowel sounds: active, all quadrants, Palpation: soft, in all quadrants, moderate abdominal tenderness, in all quadrants, Rectal exam: Stool: brown, 19:15 Skin: cellulitis, is not appreciated, no rash present. 19:15 Neuro: Orientation: to person, Mentation: unable to follow commands, Motor: moves all fours, strength is normal, 22:05 ECG was reviewed by the Attending Physician. Vital Signs: 18:54 BP 135 / 82; Pulse 73; Resp 18 S; Temp 97.7(TE); Pulse Ox 100% on R/A; aa5 08/30 00:31 BP 142 / 50; Pulse 68; Resp 16; Pulse Ox 100% ; cm10 01:00 BP 131 / 64; Pulse 66; Resp 18 S; Pulse Ox 100% on R/A; cm10 MDM: 08/29 19:02 Patient medically screened. cp 20:00 Differential Diagnosis: CVA, electrolyte abnormality, alcohol intoxication, cp intracranial bleed, meningitis, pneumonia, sepsis, UTI, volume depletion. 23:00 Data reviewed: vital signs, nurses notes, lab test result(s), EKG, radiologic studies, cp CT scan, plain films. 23:00 Management of patient was discussed with the following: Hospitalist: Dada Elias NP cp will admit after discussion. Historians other than the Patient: Daughter/Son: daughter provides HPI. Care significantly affected by the following chronic conditions: Liver Disease. Response to treatment: the patient's symptoms have markedly improved after treatment, mentation improved, patient now oriented times 3. 08/29 19:04 Order name: Blood Culture Adult (2) 08/29 19:04 Order name: CBC with Diff; Complete Time: 21:57 cp 08/29 21:57 Interpretation: Normal except: RBC 2.67; HGB 7.7; HCT 22.8; PLT 90; RDW 16.1; BRIGID% cp 80.9; LYM% 5.6; LYMA 0.3. 08/29 19:04 Order name: CMP; Complete Time: 21:57 cp 08/29 21:58 Interpretation: Normal except: CL 116; GLUC 229; BUN 64; CRE 2.05; GFR 25; BILIT 1.1; cp TP 6.1; ALB 3.2. 08/29 19:04 Order name: Lactate w/ 2H reflex if indic.; Complete Time: 22:24 08/29 22:24 Interpretation: Reviewed. 08/29 19:04 Order name: Protime (+inr); Complete Time: 21:57 08/29 19:04 Order name: Ptt, Activated; Complete Time: 21:57 08/29 19:04 Order name: AMMONIA 08/29 19:04 Order name: UDS; Complete Time: 20:32 08/29 19:04 Order name: Urinalysis W/Microscopic; Complete Time: 20:32 08/29 20:33 Interpretation: Normal except: [facility] Extremely Turbid; UBLD Trace; UNIT 2+; UESTR 500; cp UWBC 10-20; UBACT 20-50; STACEY Cx 1+; UWBC Clump Occasional. 08/29 19:56 Order name: Urine Culture EDMS 08/29 19:04 Order name: CT Head Brain wo Cont; Complete Time: 20:32 08/29 21:59 Order name: CT Chest Abdomen Pelvis W/O Contrast; Complete Time: 22:51 08/29 22:01 Order name: XRAY Chest (1 view) 08/29 19:04 Order name: EKG; Complete Time: 19:05 08/29 19:04 Order name: Accucheck; Complete Time: 23:15 08/29 19:04 Order name: Cardiac monitoring; Complete Time: 22:01 08/29 19:04 Order name: EKG - Nurse/Tech; Complete Time: 22:01 08/29 19:04 Order name: IV Saline Lock - Large Bore; Complete Time: 21:16 08/29 19:04 Order name: Labs collected and sent; Complete Time: 21:16 08/29 19:04 Order name: O2 Per Protocol; Complete Time: 21:16 08/29 19:04 Order name: O2 Sat Monitoring; Complete Time: 21:16 cp 08/29 19:04 Order name: Vital Signs; Complete Time: 19:45 cp 08/29 19:04 Order name: Guzman; Complete Time: 19:45 cp EC:05 Rate is 73 beats/min. Rhythm is regular. TX interval is normal. QRS interval is normal. cp QT interval is normal. Interpreted by me. Reviewed by me. Administered Medications: 22:53 Not Given (Physician Discretion): ns 0.9% 1000 ml IV at 1 bolus Per protocol; 1000 mL cp bolus 08/30 00:34 Drug: Rocephin IV 2 grams IV at calculated rate once; Given slow IV push per [employer] cm10 instructions Route: IV; Rate: calculated rate; Site: right wrist; Disposition: 08:28 Co-signature as Attending Physician, Porter Rivas MD. ec2 Disposition Summary: 08/29/23 23:16 Hospitalization Ordered Notes: Hospitalization Status: Inpatient Admission cp Provider: Zhang Erwin cp [facility] ([facility] cp Condition: Stable cp Problem: new cp Symptoms: have improved cp Bed/Room Type: Standard cp Room Assignment: 219(08/30/23 00:12) cg Diagnosis - Altered mental status, unspecified cp - UTI/ Urinary tract infection, site not specified cp Forms: - Medication Reconciliation Form cp - SBAR form cp - Leadership Thank You Letter cp Signatures: Dispatcher [employer] Claire Ash RN RN aa5 Denny Teixeira PA PA cp Marsha Larson RN RN cg Martinez, Clarissa, RN RN cm10 Porter Rivas MD MD ec2 Corrections: (The following items were deleted from the chart) 08/29 19:49 19:05 Urinalysis+U.LAB.BRZ ordered. EDMS EDMS 08/30 00:09 08/29 23:16 cp cg 08/30 00:12 00:09 225 cg cg
--- NOTE | 2023-08-30 00:21 | P.HP ---
Certification for Inpatient Patient admitted to: Inpatient With expected LOS: >2 Midnights Patient will require the following post-hospital care: None Practitioner: I am a practitioner with admitting privileges, knowledge of patient current condition, hospital course, and medical plan of care. Services: Services provided to patient in accordance with Admission requirements found in Title 42 Section 412.3 of the Code of Federal Regulations Patient History Date of Service: 08/30/23 Reason for admission: AMS History of Present Illness: 72-year-old female with history of COPD, diabetes mellitus type 2, hypertension, cirrhosis of liver secondary to Lee, psoriatic arthritis presents emergency department with chief complaint of altered mental status. Her daughter lives with her reports she been getting progressively more lethargic, confused since last night, difficult to arouse this afternoon. She had a paracentesis yesterday, she has been scheduled weekly and same-day surgery here. She is on the transplant list at [facility] although her liver function tests and INR are stable at this time. She was evaluated here in the emergency department her labs are significant for hemoglobin of 7.7 hematocrit 20.8, this is similar to patient's previous hemoglobin levels INR is 1.3 lactic acid 1.9 AST 35 ALT 24 T. bili 1.1 creatinine 2.05, baseline creatinine similar urinalysis concerning for urinary tract infection ammonia level is pending CT chest abdomen pelvis without contrast was performed as well as CT of the head, CT head unremarkable CT chest abdomen pelvis without contrast showed moderate left pleural effusion, moderate ascites, cirrhosis. She was started on antibioticsRocephin. ED provider wishes to admit for further evaluation management of UTI, hepatic encephalopathy. Allergies No Known Allergies Allergy (Verified 08/14/23 08:24) Home Medications: Amlodipine [Norvasc*] 2.5 mg PO DAILY 07/01/21 Atorvastatin Calcium 10 mg PO BEDTIME 07/01/21 Lactulose 1 tsp PO DAILY 07/01/21 Levocetirizine Dihydrochloride [Xyzal] 5 mg PO DAILY 07/01/21 Metoprolol Tartrate 100 mg PO BID 07/01/21 Omeprazole [Prilosec] 40 mg PO DAILY 07/01/21 Rifaximin [Xifaxan] 550 mg PO BID 07/01/21 Ergocalciferol (Vitamin D2) [Vitamin D 50,000 Unit Cap] 50,000 unit PO Q7D 02/05 Latanoprost Ophth [Xalatan 0.005%*] 1 drop EACH EYE BEDTIME 04/17/23 - Past Medical/Surgical History -: CirrhosisNASH -: Diabetes mellitus type 2 -: Hypertension -: Anemia -: Psoriatic arthritis -: COPD Past Surgical History: Unable to obtain Psychosocial/ Personal History: Lives at home with family, daughter - Family History Family History: Reviewed- Non-Contributory - Social History Smoking Status: Never smoker Alcohol use: No CD- Drugs: No Caffeine use: No Place of Residence: Home Review of Systems is unable to be obtained Physical Examination - Physical Exam General: Alert, In no apparent distress, Oriented x2, Confused, Obese HEENT: Atraumatic, PERRLA, Mucous membr. moist/pink, EOMI, Sclerae nonicteric Neck: Supple, 2+ carotid pulse no bruit, No LAD, Without JVD or thyroid abnormality Respiratory: Clear to auscultation bilaterally, Normal air movement Cardiovascular: Regular rate/rhythm, Normal S1 S2 Capillary refill: <2 Seconds Gastrointestinal: Normal bowel sounds, No tenderness Musculoskeletal: No tenderness Integumentary: No rashes Neurological: Normal speech, Normal strength at 5/5 x4 extr, Normal tone, Normal affect - Studies Laboratory Data (last 24 hrs) 08/29/23 08/29/23 08/29/23 21:10 21:10 21:10 WBC 6.10 Hgb 7.7 L Hct 22.8 L Plt Count 90 L PT 14.3 H INR 1.30 APTT 32.7 Sodium 143 Potassium 5.1 BUN 64 H Creatinine 2.05 H Glucose 229 H Total Bilirubin 1.1 H AST 35 ALT 24 Alkaline Phosphatase 89 Assessment and Plan - Plan Assessment: Metabolic encephalopathy secondary to UTI, hepatic encephalopathy-history of cirrhosis/LEE Anemia of chronic disease, thrombocytopenia Hypertension Psoriatic arthritis COPD Plan: Metabolic encephalopathy secondary to UTI, hepatic encephalopathy-history of cirrhosis/LEE Blood and urine cultures obtained in ED, UA concerning for urinary tract infection, continue Rocephin. Also with underlying Lee/cirrhosis appears confused similar to previous episodes of hepatic encephalopathy, continue p.o. lactulose, Xifaxan. LFTs currently stable from previous, is on transplant list at [facility]. Anemia of chronic disease, thrombocytopenia Transfuse PRN to maintain hgb >7. Hold off on heparin/lovenox. Hypertension Psoriatic arthritis COPD Continue home meds DVT PPX: SCDs given thrombocytopenia Code status: Full Discharge Plan: Home Plan to discharge in: 48 Hours - Advance Directives Does patient have a Living Will: No Does patient have a Durable POA for Healthcare: No - Code Status/Comfort Care Code Status Assessed: Yes (Full code) Critical Care: No Time Spent Managing Pts Care (In Minutes): 70
[2023-08-30] MEDS ORDERED: ONDANSETRON 4 MG/2 ML VIAL IV PRN (01:03)
[2023-08-30 02:47] VITALS: O2SAT 100
[2023-08-30] MEDS: LACTULOSE 20 GM/30 ML UCUP PO SCH ×3 (04:49→20:56)
[2023-08-30] MEDS: PANTOPRAZOLE 40MG TABLET PO SCH (06:55)
[2023-08-30 07:30] LABS: Protime INR 1.34
[2023-08-30 07:32] LABS: Absolute Lymphocytes (CBC) 0.3 K/uL (0.7-4.9); Hematocrit 21.8 % (36.0-45.0); Lymphocytes % 6.7 % (15.3-44.8); MCV 86.5 fL (80-100); MPV 8.3 fL (7.6-11.3); Platelets 86 thou/uL (152-406); RBC Red Blood Cell Count 2.52 M/uL (3.86-4.86)
[2023-08-30 07:36] VITALS: BMI 29.9
[2023-08-30 07:44] LABS: Potassium 4.5 mEq/L (3.5-5.1); Protein, Total 5.7 g/dL (6.4-8.2)
[2023-08-30 08:10] LABS: Blood Morphology Comment NOT SEEN (NOT SEEN); Platelet Estimate DECR; White Blood Cell Scan OK (OK)
[2023-08-30] MEDS ORDERED: HOME MED 1 EA UNK (Omeprazole [Prilosec] 40 MG Capsule.Dr) PO SCH (09:00)
[2023-08-30] MEDS ORDERED: HOME MED 1 EA UNK (Levocetirizine Dihydrochloride [Xyzal] 5 MG Tablet) PO SCH (09:00)
[2023-08-30] MEDS: METOPROLOL TAR 50 MG TAB PO SCH ×2 (09:05→20:56)
[2023-08-30] MEDS: LORATADINE 10 MG TAB PO SCH (09:06)
[2023-08-30] MEDS: Rifaximin 550 MG Tab PO SCH ×2 (09:58→20:56)
[2023-08-30] MEDS: FUROSEMIDE 40 MG TABLET PO SCH ×2 (12:50→17:44)
[2023-08-30] MEDS: CEFTRIAXONE 1,000 MG in NA CHLORIDE 0.9% 50 ML IVPB SCH (20:55)
[2023-08-30] MEDS: ATORVASTATIN 10 MG TAB PO SCH (20:56)
[2023-08-31 05:33] LABS: Absolute Lymphocytes (CBC) 0.6 K/uL (0.7-4.9); Hematocrit 19.5 % (36.0-45.0); Lymphocytes % 15.2 % (15.3-44.8); MCV 85.8 fL (80-100); MPV 8.3 fL (7.6-11.3); Platelets 66 thou/uL (152-406); RBC Red Blood Cell Count 2.27 M/uL (3.86-4.86)
[2023-08-31 05:48] LABS: Protime INR 1.41
[2023-08-31 05:54] LABS: Albumin 2.5 g/dL (3.4-5.0); Bilirubin Total 0.6 mg/dL (0.2-1.0); Magnesium 2.7 mg/dL (1.6-2.4); Potassium 4.3 mEq/L (3.5-5.1); Protein, Total 5.1 g/dL (6.4-8.2)
[2023-08-31] MEDS: PANTOPRAZOLE 40MG TABLET PO SCH (06:54)
[2023-08-31 07:01] LABS: White Blood Cell Scan OK (OK)
[2023-08-31 07:02] LABS: Blood Morphology Comment NOT SEEN (NOT SEEN); Platelet Estimate DECR
--- NOTE | 2023-08-31 07:07 | P.PN ---
Date of Service: 08/31/23 Subjective: Feeling a little better today - tired, didn't sleep well overnight doesn't recall events of last 2 days mentation improved; AOx3 hgb 6.8; will receive 1 uPRBC reports getting paracentesis every thursday for ascites; last one being 08/28 has standing orders to receive blood if hgb <7 per [facility] [place] afebrile ROS: 10 point ROS as noted above, otherwise negative Physical Exam: GEN: Alert, orientedx3, tired HEENT: Normal conjunctiva, sclera anicteric CV: Regular rate and rhythm, no edema Pulm: Nonlabored respirations on room air; diminished at bases bilaterally ABD: Soft, nontender, nondistended, mild-mod ascites Neuro: Normal speech, normal affect vitals reviewed Problem List: Metabolic encephalopathy secondary to UTI, hepatic encephalopathy-history of cirrhosis/LEE Anemia of chronic disease, thrombocytopenia Moderate ascites Moderate left pleural effusion Hypertension Psoriatic arthritis COPD, chronic Metabolic encephalopathy secondary to UTI, hepatic encephalopathy-history of cirrhosis/LEE patient with underlying Lee/cirrhosis appears confused similar to previous episodes of hepatic encephalopathy continue PO lactulose, Xifaxan. LFTs currently stable from previous, currently on transplant list at [facility] CT head (08/29): No acute intracranial abnormality is seen CT chest/abd (08/29): Moderate left pleural effusion, Moderate ascites, Cirrhosis Blood cx: NGTD Urine cx: +GNR continue empiric Rocephin (08/30-) mentation improved GI consulted Anemia of chronic disease, thrombocytopenia family notes hgb was 7.7 this past (08/27) has receieved ~3-4 uPRBC this year per family hgb 7.2 -> 6.8; Plt 86 -> 66 1 UPRBC ordered 08/31 Hold off on heparin/lovenox. Moderate Ascites Moderate left pleural effusion reports getting paracentesis every thursday; last one done on 08/28 Hypertension Psoriatic arthritis COPD, chronic confirm home medications, restart as appropriate VTE: Hold off on heparin/lovenox given low hgb Code: Full Dispo: home ~1-2 days Pending further improvement, hgb stabilizes
[2023-08-31] MEDS ORDERED: NA CHLORIDE 0.9% 250 ML IV SCH (11:00)
[2023-08-31] MEDS: LACTULOSE 20 GM/30 ML UCUP PO SCH (11:20)
[2023-08-31] MEDS: FUROSEMIDE 40 MG TABLET PO SCH ×2 (11:21→16:51)
[2023-08-31] MEDS: LORATADINE 10 MG TAB PO SCH (11:21)
[2023-08-31] MEDS: METOPROLOL TAR 50 MG TAB PO SCH ×2 (11:22→21:20)
[2023-08-31] MEDS: Rifaximin 550 MG Tab PO SCH ×2 (11:22→21:21)
--- NOTE | 2023-08-31 15:31 | RAD REPORT ---
EXAM DESCRIPTION: Chest Single View RadLex: XR CHEST 1 VIEW CLINICAL HISTORY: 72 years Female, altered mental status COMPARISON: None. FINDINGS: Single portable AP supine view of the chest. External leads overlie the chest. Trachea is midline. Normal size of the cardiac silhouette. No consolidation. No visualized pleural effusion or p neumothorax within the limitations of supine technique. No acute osseous abnormality. IMPRESSION: No acute radiographic abnormality. Electronically signed by: Elsy Pop MD 08/29/2023 11:22 PM CDT Due to temporary technical issues with the PACS/Fluency reporting system, reports are being signed by the in house radiologists without review as a courtesy to insure prompt reporting. The interpreting radiologist is fully responsible for the content of the report.
[2023-08-31] MEDS ORDERED: ACETAMINOPHEN 325 MG TABLET PO PRN (16:16)
--- NOTE | 2023-08-31 17:06 | EKG ---
Test Date: 2023-08-29 Test Time: 21:57:25 Lifestyle Coordinator: KANDACE MEASUREMENT RESULTS: Intervals: Rate: 73 IL: 140 QRSD: 80 QT: 412 QTc: 453 [place]: P: 61 IL: 140 QRS: 44 T: 52 INTERPRETIVE STATEMENTS: Normal sinus rhythm Nonspecific ST abnormality Abnormal ECG Compared to ECG 06/24/2023 20:28:35 ST (T wave) deviation now present Electronically Signed On 08-31-23 17:03:53 CDT by Stan Cai
[2023-08-31] MEDS: ATORVASTATIN 10 MG TAB PO SCH (21:20)
[2023-08-31] MEDS: CEFTRIAXONE 1,000 MG in NA CHLORIDE 0.9% 50 ML IVPB SCH (21:21)
[2023-09-01 03:58] LABS: Absolute Lymphocytes (CBC) 0.5 K/uL (0.7-4.9); Hematocrit 23.7 % (36.0-45.0); Lymphocytes % 9.4 % (15.3-44.8); MCV 85.4 fL (80-100); MPV 8.2 fL (7.6-11.3); Platelets 80 thou/uL (152-406); RBC Red Blood Cell Count 2.77 M/uL (3.86-4.86)
[2023-09-01 04:17] LABS: Albumin 2.6 g/dL (3.4-5.0); Bilirubin Total 1.1 mg/dL (0.2-1.0); Magnesium 2.5 mg/dL (1.6-2.4); Potassium 4.4 mEq/L (3.5-5.1); Protein, Total 5.6 g/dL (6.4-8.2)
[2023-09-01] MEDS: METOPROLOL TAR 50 MG TAB PO SCH ×2 (08:48→22:11)
[2023-09-01] MEDS: PANTOPRAZOLE 40MG TABLET PO SCH (08:48)
[2023-09-01] MEDS: LACTULOSE 20 GM/30 ML UCUP PO SCH ×3 (08:48→22:07)
[2023-09-01] MEDS: FUROSEMIDE 40 MG TABLET PO SCH ×2 (08:48→17:22)
[2023-09-01] MEDS: LORATADINE 10 MG TAB PO SCH (08:48)
[2023-09-01] MEDS: Rifaximin 550 MG Tab PO SCH ×2 (08:53→22:07)
--- NOTE | 2023-09-01 14:50 | P.PN ---
Subjective Date of Service: 09/01/23 Chief Complaint: AMS Patient is awake and alert today. She reports diarrhea, denies abdominal pain. Physical Examination - Vital Signs Temperature: 98.3 F Blood Pressure: 150/65 Pulse: 65 Respirations: 16 Pulse Ox (%): 98 - Studies Microbiology Data (last 24 hrs): 08/29/23 19:35 Clean Catch Urine [place] Count - Final >100,000 CFU/ML. 08/29/23 19:35 Clean Catch Urine - Final Klebsiella Pneumoniae Gram Neg Bryson Assessment And Plan - Plan Physical Exam: GEN: Alert, orientedx3, NAD. HEENT: Normal conjunctiva, sclera anicteric CV: Regular rate and rhythm, no edema Pulm: Clear to auscultation; diminished at bases bilaterally ABD: Soft, nontender, nondistended, mild-mod ascites Neuro: Normal speech, normal affect vitals reviewed Problem List: Metabolic encephalopathy secondary to UTI, hepatic encephalopathy-history of cirrhosis/LEE Anemia of chronic disease, thrombocytopenia Moderate ascites Moderate left pleural effusion Hypertension Psoriatic arthritis COPD, chronic Metabolic encephalopathy secondary to UTI, hepatic encephalopathy-history of cirrhosis/LEE patient with underlying Lee/cirrhosis Awake and alert continue PO lactulose-dose decreased due to persistent diarrhea. Continue Xifaxan. CT chest/abd (08/29): Moderate left pleural effusion, Moderate ascites, Cirrhosis Blood cx: NGTD Urine cx: Klebsiella sensitive to Rocephin. Continue IV Rocephin. PT consulted. Anemia of chronic disease, thrombocytopenia family notes hgb was 7.7 this past (08/27) has receieved ~3-4 uPRBC this year per family hgb 7.2 -> 6.8; Plt 86 -> 66 1 UPRBC ordered 08/31. Posttransfusion hemoglobin is up to 8. No anticoagulation. Moderate Ascites Moderate left pleural effusion reports getting paracentesis every thursday; last one done on 08/28 Hypertension Psoriatic arthritis COPD, chronic Continue home medications. VTE: SCD Code: Full Dispo: Home on discharge.
[2023-09-01] MEDS: CEFTRIAXONE 1,000 MG in NA CHLORIDE 0.9% 50 ML IVPB SCH (22:07)
[2023-09-01] MEDS: ATORVASTATIN 10 MG TAB PO SCH (22:11)
[2023-09-02 03:46] LABS: Absolute Lymphocytes (CBC) 0.5 K/uL (0.7-4.9); Hematocrit 21.5 % (36.0-45.0); Lymphocytes % 10.6 % (15.3-44.8); MCV 84.5 fL (80-100); MPV 8.2 fL (7.6-11.3); Platelets 61 thou/uL (152-406); RBC Red Blood Cell Count 2.55 M/uL (3.86-4.86)
[2023-09-02 04:16] LABS: Platelet Estimate DECR; White Blood Cell Scan OK (OK)
[2023-09-02 04:17] LABS: Anisocytosis 1+; Blood Morphology Comment NOTED (NOT SEEN); Hypochromasia 1+
[2023-09-02] MEDS: METOPROLOL TAR 50 MG TAB PO SCH (07:51)
[2023-09-02] MEDS: Rifaximin 550 MG Tab PO SCH (07:51)
[2023-09-02] MEDS: PANTOPRAZOLE 40MG TABLET PO SCH (07:51)
[2023-09-02] MEDS: FUROSEMIDE 40 MG TABLET PO SCH (07:51)
[2023-09-02] MEDS: LACTULOSE 20 GM/30 ML UCUP PO SCH (07:52)
[2023-09-02] MEDS: LORATADINE 10 MG TAB PO SCH (07:52)
--- NOTE | 2023-09-02 10:44 | P.DS ---
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 Her daughter lives with her reported she been getting progressively more lethargic, and eventually got confused and difficult to arouse. She had a paracentesis yesterday, she has been scheduled weekly and same-day surgery here. She is on the transplant list at [facility] and her liver function tests and INR are stable at this time. She was evaluated here in the emergency department her labs are significant for hemoglobin of 7.7 hematocrit 20.8, this is similar to patient's previous hemoglobin levels INR is 1.3 lactic acid 1.9 AST 35 ALT 24 T. bili 1.1 creatinine 2.05, baseline creatinine similar urinalysis concerning for urinary tract infection ammonia level is pending CT chest abdomen pelvis without contrast was performed as well as CT of the head, CT head unremarkable CT chest abdomen pelvis without contrast showed moderate left pleural effusion, moderate ascites, cirrhosis. She was started on antibioticsRocephin. Patient admitted for further evaluation management of UTI and hepatic encephalopathy. Hospital Course: Diagnosis Metabolic encephalopathy secondary to UTI, hepatic encephalopathy-history of cirrhosis/LEE Anemia of chronic disease, thrombocytopenia Moderate ascites Moderate left pleural effusion Hypertension Psoriatic arthritis COPD, chronic Metabolic encephalopathy secondary to UTI, hepatic encephalopathy-history of cir rhosis/LEE patient with underlying Lee/cirrhosis Patient treated with lactulose. She was also treated with IV Rocephin for UTI. She had diarrhea with improvement in her mental status. continue PO lactulose-dose decreased to 20 mg twice daily due to persistent diarrhea. Continued Xifaxan. CT chest/abd (08/29): Moderate left pleural effusion, Moderate ascites, Cirrhosis Blood cx: NGTD Urine cx: Klebsiella sensitive to Rocephin. Patient treated with 4 days of IV Rocephin. She is discharged with oral cefpodoxime to complete treatment for UTI. She was seen and evaluated by physical therapy. Patient was able to ambulate with a walker without any additional support. Patient is discharging home with home health for PT and retirement. Anemia of chronic disease, thrombocytopenia family notes hgb was 7.7 this past (08/27) has receieved ~3-4 uPRBC this year per family hgb 7.2 -> 6.8; Plt 86 -> 66 1 UPRBC ordered 08/31. Posttransfusion hemoglobin 7.4 No anticoagulation. Moderate Ascites Moderate left pleural effusion reports getting paracentesis every thursday; last one done on 08/28 Hypertension Psoriatic arthritis COPD, chronic Continued home medications. Vital Signs/Physical Exam: Temp Pulse Resp BP Pulse Ox 97.6 F 56 16 140/66 98 09/02/23 08:00 09/02/23 08:00 09/02/23 08:00 09/02/23 08:00 09/02/23 08:00 General: Alert, In no apparent distress, Oriented x3 HEENT: Mucous membr. moist/pink Neck: JVD not distended Respiratory: Clear to auscultation bilaterally, Normal air movement Cardiovascular: No edema, Regular rate/rhythm, Normal S1 S2 Gastrointestinal: Soft and benign, Non-distended, Ascites Musculoskeletal: No swelling Integumentary: No cyanosis Neurological: Normal strength at 5/5 x4 extr Laboratory Data at Discharge: WBC 4.80 thou/uL (4.3-10.9) 09/02/23 02:20 Hgb 7.4 g/dL (12.0-15.0) L 09/02/23 02:20 Hct 21.5 % (36.0-45.0) L 09/02/23 02:20 Plt Count 61 thou/uL (152-406) L 09/02/23 02:20 PT 15.5 SECONDS (9.5-12.5) H 08/31/23 05:15 INR 1.41 08/31/23 05:15 APTT 32.7 SECONDS (24.3-36.9) 08/29/23 21:10 Sodium 136 mEq/L (136-145) 09/02/23 02:20 Potassium 4.0 mEq/L (3.5-5.1) 09/02/23 02:20 BUN 62 mg/dL (7-18) H 09/02/23 02:20 Creatinine 2.08 mg/dL (0.55-1.02) H 09/02/23 02:20 Glucose 282 mg/dL (74-106) H 09/02/23 02:20 Phosphorus 3.0 mg/dL (2.5-4.9) 08/31/23 05:15 Magnesium 2.5 mg/dL (1.6-2.4) H 09/01/23 02:24 Total Bilirubin 1.1 mg/dL (0.2-1.0) H 09/01/23 02:24 AST 35 U/L (15-37) 09/01/23 02:24 ALT 20 U/L (13-56) 09/01/23 02:24 Alkaline Phosphatase 89 U/L (45-117) D 09/01/23 02:24 Home Medications: Atorvastatin Calcium 10 mg PO BEDTIME 07/01/21 Levocetirizine Dihydrochloride [Xyzal] 5 mg PO DAILY 07/01/21 Metoprolol Tartrate 100 mg PO BID 07/01/21 Omeprazole [Prilosec] 40 mg PO DAILY 07/01/21 Rifaximin [Xifaxan] 550 mg PO BID 07/01/21 Amlodipine [Norvasc*] 5 mg PO DAILY 08/30/23 Furosemide [Lasix*] 40 mg PO BIDL 08/30/23 Lactulose [Cephulac*] 20 gm PO BID 08/30/23 Cefpodoxime Proxetil 100 mg PO BID #6 tab 09/02/23 New Medications: Cefpodoxime Proxetil 100 mg PO BID #6 tab Diet: AHA Activity: Fall precautions Followup: Jacek Ledesma DO [Primary Care Provider] - 1-2 Weeks Time spent managing pt's care (in minutes): 36
[2023-09-02 16:32] VITALS: BP 131/59; TEMP 97.9
== END 2023-09-02 16:15 | disposition home or self-care (01) | DRG 441 ==
LOC: ER 18:46 → ERHOLD 08-30 → 2ND 08-30 00:25
PROVIDERS: ADMIT Internal Medicine Sleep Medicine; ATTEND Internal Medicine
PROC: 30233N1 Transfusion of Nonautologous Red Blood Cells into Peripheral Vein, Percutaneous Approach (ICD-10-PCS; principal; 2023-08-31)
DX: K76.82 Hepatic encephalopathy (principal); G93.41 Metabolic encephalopathy; J90 Pleural effusion, not elsewhere classified; N39.0 Urinary tract infection, site not specified; R18.8 Other ascites; K74.60 Unspecified cirrhosis of liver; K75.81 Nonalcoholic steatohepatitis (NASH); E11.9 Type 2 diabetes mellitus without complications; I10 Essential (primary) hypertension; D69.6 Thrombocytopenia, unspecified; D63.8 Anemia in other chronic diseases classified elsewhere; L40.50 Arthropathic psoriasis, unspecified; J44.9 Chronic obstructive pulmonary disease, unspecified; Z76.82 Awaiting organ transplant status; Z79.899 Other long term (current) drug therapy
CPT/HCPCS: 36415; 49083; 51702; 70450; 71045; 71250; 74176; 80048; 80053; 80307; 81001; 82140; 82947; 83605; 83735; 84100; 84157; 85025; 85610; 85730; 86850; 86900; 86901; 86920; 87040; 87070; 87077; 87086; 87088; 87186; 89050; 93005; 96365; 96374; 97116; 97161; 97530; 99285; J0696; J7030; J7050; P9016

== ENCOUNTER 2023-09-11 08:16 | Day surgery (SDC) | payer OTHER, BC ==
[2023-09-11 09:52] VITALS: BMI 29.7
--- NOTE | 2023-09-11 10:01 | RAD REPORT ---
EXAM DESCRIPTION: US - Paracentesis Proc Guidance - 09/11/2023 9:23 am CLINICAL HISTORY: ASCITES Ascites COMPARISON: Paracentesis Proc Guidance dated 08/28/2023 FINDINGS: Informed consent was obtained and time-out was performed. Patient's abdomen was prepped and draped in the usual sterile fashion. 1% lidocaine was used for loca l anesthetic purposes. A small skin incision was made. A paracentesis catheter was guided into the peroneal cavity under son ographic guidance. A small amount of fluid was sent for requested lab studies. A large volume paracentesis was performed . The patient tolerated the procedure well. Patient was administered IV albumin per protocol following the procedure. IMPRESSION: Successful ultrasound-guided paracentesis.
[2023-09-11] MEDS ORDERED: ALBUMIN HUMAN 25% 300 ML IV ONE (10:50)
[2023-09-11 13:59] LABS: Body Fluid WBC 97 /mm^3
[2023-09-11 15:29] LABS: Appearance CLEAR (CLEAR); Body Fluid Source PERITONEAL; Color of fluid Yellow (COLORLESS)
[2023-09-11 15:35] VITALS: BP 119/49; TEMP 98.2; O2SAT 100
== END 2023-09-11 12:44 | disposition home or self-care (01) ==
LOC: DS 08:16
PROVIDERS: ATTEND Legal Medicine
DX: R18.8 Other ascites (principal)
CPT/HCPCS: 87070; 36415; 89050; 84157; 96365; 49083; P9047

== ENCOUNTER 2023-09-18 08:24 | Day surgery (SDC) | payer OTHER, BC ==
[2023-09-18 08:51] VITALS: O2SAT 100; BMI 28.9
[2023-09-18] MEDS ORDERED: ALBUMIN HUMAN 25% 200 ML IV ONE (10:01)
[2023-09-18 10:12] VITALS: TEMP 97.2
--- NOTE | 2023-09-18 10:17 | RAD REPORT ---
EXAM DESCRIPTION: US - Paracentesis Proc Guidance - 09/18/2023 10:06 am CLINICAL HISTORY: ASCITES Ascites COMPARISON: Paracentesis Proc Guidance dated 09/11/2023; Paracentesis Proc Guidance dated 06/05/2023 FINDINGS: Informed consent was obtained and time-out was performed. Patient's abdomen was prepped and draped in the usual sterile fashion. 1% lidocaine was used for loca l anesthetic purposes. A small skin incision was made. A paracentesis catheter was guided into the peroneal cavity under son ographic guidance. A small amount of fluid was sent for requested lab studies. A large volume paracentesis was performed . The patient tolerated the procedure well. Patient was administered IV albumin per protocol following the procedure. IMPRESSION: Successful ultrasound-guided paracentesis.
[2023-09-18 10:57] LABS: Body Fluid WBC 71 /mm^3
[2023-09-18 11:01] LABS: Appearance CLEAR (CLEAR); Body Fluid Source PERITONEAL; Color of fluid Yellow (COLORLESS)
[2023-09-18 11:19] VITALS: BP 119/75
== END 2023-09-18 11:18 | disposition home or self-care (01) ==
LOC: DS 08:24
PROVIDERS: ATTEND Legal Medicine
DX: R18.8 Other ascites (principal)
CPT/HCPCS: 87070; 36415; 89050; 84157; 96365; 49083; P9047

== ENCOUNTER 2023-09-25 07:53 | Day surgery (SDC) | payer OTHER, BC ==
[2023-09-25 08:50] VITALS: O2SAT 100; BMI 30.6
[2023-09-25] MEDS ORDERED: ALBUMIN HUMAN 25% 200 ML IV ONE (09:39)
--- NOTE | 2023-09-25 09:47 | RAD REPORT ---
EXAM DESCRIPTION: US - Paracentesis Proc Guidance - 09/25/2023 9:25 am CLINICAL HISTORY: ASCITES Ascites COMPARISON: Paracentesis Proc Guidance dated 09/18/2023 FINDINGS: Informed consent was obtained and time-out was performed. Patient's abdomen was prepped and draped in the usual sterile fashion. 1% lidocaine was used for loca l anesthetic purposes. A small skin incision was made right lower quadrant. A paracentesis catheter was guided into the ricky caryn cavity under sonographic guidance. A small amount of fluid was sent for requested lab studies. A large volume paracentesis was performed . The patient tolerated the procedure well. Patient was administered IV albumin per protocol following the procedure. IMPRESSION: Successful ultrasound-guided paracentesis.
[2023-09-25 13:08] VITALS: BP 135/41; TEMP 97.4
[2023-09-25 13:28] LABS: Body Fluid Source PERITONEAL
[2023-09-25 13:29] LABS: Appearance SLT. TURBID (CLEAR); Body Fluid WBC 378 /mm^3; Color of fluid Yellow (COLORLESS)
== END 2023-09-25 11:45 | disposition home or self-care (01) ==
LOC: DS 07:53
PROVIDERS: ATTEND Legal Medicine
DX: R18.8 Other ascites (principal)
CPT/HCPCS: 87070; 36415; 89050; 84157; 96365; 49083; P9047

== ENCOUNTER 2023-10-06 07:31 | Day surgery (SDC) | payer OTHER, BC ==
[2023-10-06 08:37] VITALS: BMI 31.6
[2023-10-06 08:46] LABS: MPV 8.9 fL (7.6-11.3); Platelets 107 thou/uL (152-406)
[2023-10-06 08:54] LABS: Protime INR 1.37
[2023-10-06 09:01] LABS: Absolute Lymphocytes (CBC) 0.7 K/uL (0.7-4.9); Hematocrit 20.8 % (36.0-45.0); Lymphocytes % 15.1 % (15.3-44.8); MCV 79.3 fL (80-100); MPV 8.9 fL (7.6-11.3); Platelets 105 thou/uL (152-406); RBC Red Blood Cell Count 2.62 M/uL (3.86-4.86)
[2023-10-06 10:04] LABS: Albumin 2.8 g/dL (3.4-5.0); Bilirubin Direct 0.4 mg/dL (0-0.2); Bilirubin Indirect, Calculated 0.5 mg/dL (0.2-0.8); Bilirubin Total 0.9 mg/dL (0.2-1.0); Potassium 4.1 mEq/L (3.5-5.1)
[2023-10-06] MEDS ORDERED: NA CHLORIDE 0.9% 250 ML ONE ×2 (10:39→14:01)
--- NOTE | 2023-10-06 10:39 | RAD REPORT ---
EXAM DESCRIPTION: US - Paracentesis Proc Guidance - 10/06/2023 10:00 am CLINICAL HISTORY: ASCITES Ascites COMPARISON: Paracentesis Proc Guidance dated 09/25/2023 FINDINGS: Informed consent was obtained and time-out was performed. Patient's abdomen was prepped and draped in the usual sterile fashion. 1% lidocaine was used for loca l anesthetic purposes. A small skin incision was made right lower quadrant. A paracentesis catheter was guided into the ricky caryn cavity under sonographic guidance. A small amount of fluid was sent for requested lab studies. A large volume paracentesis was performed . The patient tolerated the procedure well. Patient was administered IV albumin per protocol following the procedure. IMPRESSION: Successful ultrasound-guided paracentesis.
[2023-10-06] MEDS ORDERED: ALBUMIN HUMAN 25% 300 ML IV ONE (10:56)
[2023-10-06 13:35] LABS: Body Fluid Source PERITONEAL; Color of fluid Yellow (COLORLESS)
[2023-10-06 13:36] LABS: Appearance CLEAR (CLEAR); Body Fluid WBC 28 /mm^3
[2023-10-06 17:36] LABS: Hematocrit 23.9 % (36.0-45.0)
[2023-10-06 17:53] VITALS: BP 137/42; TEMP 98.3; O2SAT 95
== END 2023-10-06 17:30 | disposition home or self-care (01) ==
LOC: DS 07:31
PROVIDERS: ATTEND Legal Medicine
DX: R18.8 Other ascites (principal); K75.81 Nonalcoholic steatohepatitis (NASH); Z76.82 Awaiting organ transplant status
CPT/HCPCS: 87070; 85025; 80048; 36415; 86900; 89050; 86850; 85049; 84157; 85610; 86901; 80076; 85730; 86920 ×2; 85018; 85014; 36430; 96365; 49083; P9047; P9016 ×2; J7050 ×2

== ENCOUNTER 2023-10-23 07:56 | Day surgery (SDC) | payer OTHER, BC ==
[2023-10-23] MEDS ORDERED: ALBUMIN HUMAN 25% 50 ML IV ONE (10:18)
[2023-10-23] MEDS ORDERED: ALBUMIN HUMAN 25% 100 ML IV ONE (10:18)
--- NOTE | 2023-10-23 11:58 | RAD REPORT ---
EXAM DESCRIPTION: US - Paracentesis Proc Guidance - 10/23/2023 10:00 am CLINICAL HISTORY: Liver disease with ascites FINDINGS: The risks, benefits and alternatives to the procedure were explained to the patient and in formed consent obtained. The skin and deeper tissues were anesthetized with Lidocaine. Under sonographic guidance an 8 Y[place]ut catheter was placed into the right lower quadrant. 3.7 liters of yellow fluid removed. Fluid sent to the lab. The patient experienced no immediate complication. IMPRESSION: Paracentesis
[2023-10-23 14:10] VITALS: BMI 29.7
[2023-10-23 14:15] VITALS: BP 137/45; TEMP 97.9; O2SAT 96
== END 2023-10-23 12:40 | disposition home or self-care (01) ==
LOC: DS 07:56
PROVIDERS: ATTEND Legal Medicine
DX: R18.8 Other ascites (principal)
CPT/HCPCS: 96365; 49083; 96366; P9047 ×2

== ENCOUNTER 2023-10-30 08:55 | Day surgery (SDC) | payer OTHER, BC ==
[2023-10-30 09:30] VITALS: BP 143/39; TEMP 97.1; O2SAT 99; BMI 27.1
--- NOTE | 2023-10-30 09:51 | RAD REPORT ---
EXAM DESCRIPTION: US - Paracentesis Proc Guidance - 10/30/2023 9:44 am CLINICAL HISTORY: ASCITES Ascites COMPARISON: Paracentesis Proc Guidance dated 10/23/2023 FINDINGS: Informed consent was obtained and time-out was performed. Patient's abdomen was prepped and draped in the usual sterile fashion. 1% lidocaine was used for loca l anesthetic purposes. A small skin incision was made right lower quadrant. A paracentesis catheter was guided into the ricky caryn cavity under sonographic guidance. A small amount of fluid was sent for requested lab studies. A large volume paracentesis was performed . The patient tolerated the procedure well. Patient was administered IV albumin per protocol following the procedure. IMPRESSION: Successful ultrasound-guided paracentesis.
[2023-10-30] MEDS ORDERED: ALBUMIN HUMAN 25% 100 ML IV ONE (10:18)
[2023-10-30 13:51] LABS: Body Fluid Source PERITONEAL
[2023-10-30 13:52] LABS: Appearance CLEAR (CLEAR); Body Fluid WBC 36 /mm^3; Color of fluid Yellow (COLORLESS)
== END 2023-10-30 11:05 | disposition home or self-care (01) ==
LOC: DS 08:55
PROVIDERS: ATTEND Legal Medicine
DX: R18.8 Other ascites (principal)
CPT/HCPCS: 87070; 36415; 89050; 84157; 96365; 49083; P9047

== ENCOUNTER 2023-11-06 07:50 | Day surgery (SDC) | payer OTHER, BC ==
[2023-11-06 08:27] LABS: MPV 8.9 fL (7.6-11.3); Platelets 68 thou/uL (152-406)
[2023-11-06 08:35] LABS: Protime INR 1.41
[2023-11-06 09:07] VITALS: BMI 26.4
[2023-11-06] MEDS ORDERED: ALBUMIN HUMAN 25% 100 ML IV ONE (10:13)
[2023-11-06] MEDS ORDERED: ALBUMIN HUMAN 25% 50 ML IV ONE (10:13)
--- NOTE | 2023-11-06 10:48 | RAD REPORT ---
EXAM DESCRIPTION: US - Paracentesis Proc Guidance - 11/06/2023 9:33 am CLINICAL HISTORY: Liver disease with ascites FINDINGS: The risks, benefits and alternatives to the procedure were explained to the patient and in formed consent obtained. The skin and deeper tissues were anesthetized with Lidocaine. Under sonographic guidance an 8 Persian catheter was placed into the right lower quadrant. 3 liters of yellow fluid removed. Fluid sent to the lab. The patient experienced no immediate complication. IMPRESSION: Paracentesis
[2023-11-06 12:17] VITALS: TEMP 97.1
[2023-11-06 12:18] VITALS: BP 142/49; O2SAT 99
[2023-11-06 13:21] LABS: Appearance SLT. TURBID (CLEAR); Body Fluid Source OTHER; Body Fluid WBC 43 /mm^3; Color of fluid Yellow (COLORLESS)
== END 2023-11-06 12:05 | disposition home or self-care (01) ==
LOC: DS 07:50
PROVIDERS: ATTEND Legal Medicine
DX: R18.8 Other ascites (principal)
CPT/HCPCS: 87070; 36415; 89050; 85049; 84157; 85610; 85730; 96365; 49083; P9047 ×2

== ENCOUNTER 2023-11-13 08:25 | Day surgery (SDC) | payer OTHER, BC ==
[2023-11-13 09:12] VITALS: BP 133/43; TEMP 97.2; O2SAT 100; BMI 26.4
--- NOTE | 2023-11-13 09:49 | RAD REPORT ---
EXAM DESCRIPTION: US - Abdomen Exam Limited - 11/13/2023 9:42 am CLINICAL HISTORY: ASCITES COMPARISON: Abdomen Exam Limited dated 12/19/2022 FINDINGS: Pre-procedure sonography was performed. Only a small volume of fluid is present in the abd omen. IMPRESSION: Currently, only a small volume of intra-abdominal fluid is present, insufficient for par acentesis at this time.
== END 2023-11-13 10:25 | disposition home or self-care (01) ==
LOC: DS 08:25
PROVIDERS: ATTEND Legal Medicine
DX: R18.8 Other ascites (principal); Z53.8 Procedure and treatment not carried out for other reasons
CPT/HCPCS: 36415; 49083; 76705; 84157; 87070; 89050

== ENCOUNTER 2023-11-27 08:27 | Day surgery (SDC) | payer OTHER, BC ==
--- NOTE | 2023-11-27 09:44 | RAD REPORT ---
EXAM DESCRIPTION: US - Paracentesis Proc Guidance - 11/27/2023 9:33 am CLINICAL HISTORY: ASCITES Ascites COMPARISON: Paracentesis Proc Guidance dated 11/20/2023 FINDINGS: Informed consent was obtained and time-out was performed. Patient's abdomen was prepped and draped in the usual sterile fashion. 1% lidocaine was used for loca l anesthetic purposes. A small skin incision was made. A paracentesis catheter was guided into the peroneal cavity under son ographic guidance. A small amount of fluid was sent for requested lab studies. A large volume paracentesis was performed . The patient tolerated the procedure well. Patient was administered IV albumin per protocol following the procedure. IMPRESSION: Successful ultrasound-guided paracentesis.
[2023-11-27] MEDS ORDERED: ALBUMIN HUMAN 25% 200 ML IV ONE (09:46)
[2023-11-27 10:12] VITALS: BMI 26.1
[2023-11-27 10:56] VITALS: BP 129/41; TEMP 97.4; O2SAT 100
[2023-11-27 12:04] LABS: Appearance CLEAR (CLEAR); Body Fluid Source PERITONEAL; Body Fluid WBC 45 /mm^3; Color of fluid Yellow (COLORLESS)
== END 2023-11-27 12:30 | disposition home or self-care (01) ==
LOC: DS 08:27
PROVIDERS: ATTEND Legal Medicine
DX: R18.8 Other ascites (principal)
CPT/HCPCS: 87070; 36415; 89050; 84157; 96365; 49083; P9047

== ENCOUNTER 2023-12-18 08:17 | Day surgery (SDC) | payer OTHER, BC ==
[2023-12-18 08:53] VITALS: BMI 25.2
--- NOTE | 2023-12-18 10:28 | RAD REPORT ---
EXAM DESCRIPTION: US - Paracentesis Proc Guidance - 12/18/2023 10:00 am CLINICAL HISTORY: ASCITES Ascites COMPARISON: Paracentesis Proc Guidance dated 11/27/2023 FINDINGS: Informed consent was obtained and time-out was performed. Patient's abdomen was prepped and draped in the usual sterile fashion. 1% lidocaine was used for loca l anesthetic purposes. A small skin incision was made right lower quadrant. A paracentesis catheter was guided into the ricky caryn cavity under sonographic guidance. A small amount of fluid was sent for requested lab studies. A large volume paracentesis was performed . The patient tolerated the procedure well. Patient was administered IV albumin per protocol following the procedure. IMPRESSION: Successful ultrasound-guided paracentesis.
[2023-12-18] MEDS ORDERED: ALBUMIN HUMAN 25% 100 ML IV ONE (10:31)
[2023-12-18] MEDS ORDERED: ALBUMIN HUMAN 25% 50 ML IV ONE (10:31)
[2023-12-18 12:03] VITALS: BP 119/42; TEMP 96.9; O2SAT 99
[2023-12-18 13:28] LABS: Appearance CLEAR (CLEAR); Body Fluid Source PERITONEAL; Body Fluid WBC 12 /mm^3; Color of fluid Colorless (COLORLESS)
== END 2023-12-18 12:02 | disposition home or self-care (01) ==
LOC: DS 08:17
PROVIDERS: ATTEND Legal Medicine
DX: R18.8 Other ascites (principal)
CPT/HCPCS: 87070; 36415; 89050; 84157; 96365; 49083; P9047 ×2

== ENCOUNTER 2023-12-26 18:49 | Inpatient (IN) | payer OTHER, BC ==
[2023-12-26 20:04] LABS: Absolute Lymphocytes (CBC) 0.3 K/uL (0.7-4.9); Hematocrit 27.7 % (36.0-45.0); Lymphocytes % 4.7 % (15.3-44.8); MCV 80.4 fL (80-100); MPV 8.7 fL (7.6-11.3); Platelets 85 thou/uL (152-406); RBC Red Blood Cell Count 3.44 M/uL (3.86-4.86)
[2023-12-26 20:11] LABS: Protime INR 1.35
[2023-12-26 20:21] LABS: Bilirubin Total 1.3 mg/dL (0.2-1.0); Potassium 3.6 mEq/L (3.5-5.1)
--- NOTE | 2023-12-26 20:59 | RAD REPORT ---
EXAM DESCRIPTION: RAD - Chest Single View - 12/26/2023 8:32 pm CLINICAL HISTORY: ams COMPARISON: Chest Single View dated 12/04/2023; Chest Single View dated 08/29/2023; Chest Single View dated 05/15/2023; Chest Single View dated 02/14/2021 FINDINGS: Lines: None. Lungs: Likely atelectasis as a result of the effusion . Pleural: Small moderate left pleural effusion which is decreased in size . Cardiac: The heart size is within normal limits. Mediastinum: Within normal limits. Bones: No acute fractures. Other: None IMPRESSION: Small to moderate left pleural effusion and presumably underlying atelectasis which is d ecreased in size from prior .
[2023-12-26 21:34] LABS: Specific Gravity 1.013 (1.005-1.030); Urine Bacteria <20 /HPF (<20); Urine Bilirubin NEGATIVE (Negative); Urine Blood Negative (Negative); Urine Clarity Extremely Turbid (Clear); Urine Color Light-Yellow (Yellow); Urine Glucose NEGATIVE (Negative); Urine Protein NEGATIVE (Negative); Urine RBC <5 /HPF (None Seen); Urine Urobilinogen Normal (Normal); Urine pH 5.5 (5.0-7.0)
[2023-12-26] MEDS ORDERED: LACTULOSE 20 GM/30 ML UCUP ONE (22:39)
[2023-12-26] MEDS ORDERED: ONDANSETRON 4 MG/2 ML VIAL IV PRN (23:16)
[2023-12-26] MEDS: Rifaximin 550 MG Tab PO SCH (23:20)
--- NOTE | 2023-12-26 23:30 | P.HP ---
Certification for Inpatient Patient admitted to: Observation With expected LOS: <2 Midnights Practitioner: I am a practitioner with admitting privileges, knowledge of patient current condition, hospital course, and medical plan of care. 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 Patient's reported she woke up from sleep around 4:45 PM and about 15 minutes later she has become disoriented and was noted to be very weak with difficulty walking or moving to the bathroom. Patient had left thoracentesis 3 weeks ago and her weekly paracentesis yesterday with removal of 3.4 L and was given albumin per routine without any issues. However today she had slept all day and had not taking any of her medications including lactulose and Xifaxan. She has not had any bowel movement today, denied any fever, abdominal pain, nausea or vomiting, dysuria, and chest pain. On arrival to the ED her vital signs are within normal limits. ED workup abnormal labs include H&H 9/27, bicarb 20, BUN/cr 67/2.37 which are all about her baseline. Chest x-ray showed small to moderate left pleural effusion which is decreased from prior. Ammonia level is 63, however patient has chronically elevated ammonia level from her cirrhosis. She was given a dose of 45 mg lactulose in the ED and her mental status has begun to significantly improve however she is very worried about her weakness and falling, so patient will be admitted for observation to continue home meds and PT evaluation. Allergies No Known Allergies Allergy (Verified 12/18/23 08:47) Home Medications: Atorvastatin Calcium 10 mg PO BEDTIME 07/01/21 Levocetirizine Dihydrochloride [Xyzal] 5 mg PO DAILY 07/01/21 Metoprolol Tartrate 100 mg PO BID 07/01/21 Omeprazole [Prilosec] 40 mg PO DAILY 07/01/21 Rifaximin [Xifaxan] 550 mg PO BID 07/01/21 Amlodipine [Norvasc*] 5 mg PO DAILY 08/30/23 Furosemide [Lasix*] 40 mg PO BIDL 08/30/23 Lactulose [Cephulac*] 20 gm PO BID 08/30/23 Cefpodoxime Proxetil 100 mg PO BID #6 tab 09/02/23 Amlodipine [Norvasc*] 1 tab PO DAILY 12/18/23 - Past Medical/Surgical History Diabetic: No -: CirrhosisNASH -: Diabetes mellitus type 2 -: Hypertension -: Anemia -: Psoriatic arthritis -: COPD -: LIZETTE Mastectomy and reconstruction -: Hysterectomy -: Right Ankle Sx -: Right Wrist Sx Psychosocial/ Personal History: Lives at home with family, daughter - Social History Alcohol use: No CD- Drugs: No Caffeine use: No Review of Systems 10-point ROS is otherwise unremarkable Physical Examination - Physical Exam General: Alert, Oriented x3, Cooperative HEENT: Atraumatic, Normocephalic, Mucous membr. moist/pink Neck: Supple, JVD not distended Respiratory: Clear to auscultation bilaterally Cardiovascular: No edema, Regular rate/rhythm Gastrointestinal: Normal bowel sounds, Soft and benign, Distended Musculoskeletal: No swelling, No erythema, No tenderness Integumentary: No rashes Neurological: Normal speech, Normal strength at 5/5 x4 extr, Sensation intact - Studies Laboratory Data (last 24 hrs) 12/26/23 12/26/23 12/26/23 19:53 19:53 19:53 WBC 6.30 Hgb 9.0 L Hct 27.7 L Plt Count 85 L PT 14.7 H INR 1.35 Sodium 137 Potassium 3.6 BUN 67 H Creatinine 2.35 H Glucose 245 H Total Bilirubin 1.3 H AST 36 ALT 25 Alkaline Phosphatase 117 Assessment and Plan - Plan Hepatic encephalopathy, mild Diabetes mellitus type 2 CKD stage IV 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
[2023-12-26] MEDS ORDERED: GLUCAGON 1 MG/VIAL IM PRN (23:31)
[2023-12-26] MEDS ORDERED: D50W 25 GM/50 ML SYRINGE IV PRN (23:31)
--- NOTE | 2023-12-26 23:33 | ER ---
Nurse's Notes [facility] Name: Rena Burch Age: 73 yrs Sex: Female : 1950 Arrival Date: 12/26/2023 Time: 18:49 Bed 18 Private MD: Diagnosis: Encephalopathy, unspecified-Hepatic;Altered mental status, unspecified;Muscle weakness (generalized) Presentation: 12/26 19:10 Chief complaint: EMS states: reports altered mental status. Patient is awaiting liver cp4 transplant and had a fall earlier today while attempting to use the restroom. Coronavirus screen: Client denies travel out of the [place] in the last 14 days. At this time, the client does not indicate any symptoms associated with coronavirus-19. Ebola Screen: Patient negative for fever greater than or equal to 101.5 degrees Fahrenheit, and additional compatible Ebola Virus Disease symptoms Patient denies exposure to infectious person. Patient denies travel to an Ebola-affected area in the 21 days before illness onset. No symptoms or risks identified at this time. Initial Sepsis Screen: Does the patient meet any 2 criteria? No. Patient's initial sepsis screen is negative. Does the patient have a suspected source of infection? No. Patient's initial sepsis screen is negative. Risk Assessment: Do you want to hurt yourself or someone else? Patient reports no desire to harm self or others. Onset of symptoms is unknown. 19:10 Method Of Arrival: EMS: [facility] cp4 19:10 Acuity: CHEIKH 3 cp4 Triage Assessment: 19:12 General: Appears in no apparent distress. Behavior is calm, cooperative, appropriate cp4 for age. Pain: Denies pain. Neuro: No deficits noted. Rodriguez Agitation-Sedation Scale (RASS): 0 - Alert and Calm. Historical: - Allergies: 19:12 No Known Allergies; cp4 - PMHx: 19:12 COPD; Diabetes - IDDM; Hypertension; Liver failure (currently on liver transplant cp4 list); Paracentesis; Psoriatic Arthritis; fatty liver; - Immunization history:: Adult Immunizations up to date. - Social history:: Smoking status: Patient denies any tobacco usage or history of. Screenin:25 [facility] ED Fall Risk Assessment (Adult) History of falling in the last 3 months, cp4 including since admission Yes- fall prone (multiple falls) (3 pts) Confusion or Disorientation Yes (5 pts) Intoxicated or Sedated No (0 pts) Impaired Gait Yes (1 pt) Mobility Assist Device Used No (0 pt) Altered Elimination No (0 pt) Score/Fall Risk Level 3 or more points = High Risk Oriented to surroundings, Maintained a safe environment, Educated pt \T\ family on fall prevention, incl call for assistance when getting out of bed, Assessed \T\ reinforced patient's understanding of fall precautions, Provided non-skid footwear, Hourly rounding (assess needs \T\ fall precautionary measures) done, Used ambulatory aids as needed (educated on \T\ assisted with). Abuse screen: Denies threats or abuse. Nutritional screening: No deficits noted. Tuberculosis screening: No symptoms or risk factors identified. Assessment: 19:25 General: Appears in no apparent distress. Behavior is calm, cooperative, appropriate cp4 for age. 21:51 Reassessment: Blood noted in brief when straight cathed. Patient was noted to have a cp4 dime size decubitus to the right buttock that was open and bleeding. Provider notified of findings. 22:00 General: Appears in no apparent distress. uncomfortable, Behavior is calm, cooperative. jw7 Pain: Denies pain. Neuro: Rodriguez Agitation-Sedation Scale (RASS): 0 - Alert and Calm Level of Consciousness is awake, alert, obeys commands, Oriented to person, place, time, situation. Cardiovascular: Capillary refill < 3 seconds Clubbing of nail beds is absent JVD is absent Patient's skin is warm and dry. Respiratory: Airway is patent Trachea midline Respiratory effort is even, unlabored, Respiratory pattern is regular, symmetrical. GI: Abdomen is flat, non-distended, Bowel sounds present X 4 quads. : cassia blood. 22:00 EENT: No deficits noted. No signs and/or symptoms were reported regarding the EENT jw7 system. Derm: Skin is fragile, Skin is dry, Skin is normal, Skin temperature is warm Decubitus located on right buttocks approximately 1.5 cm to 2.5 cm is stage II has erythematous edges is draining small amount serosanguinous. Musculoskeletal: Circulation, motion, and sensation intact. Range of motion: intact in all extremities. 23:03 Reassessment: Patient appears in no apparent distress at this time. Patient and/or jw7 family updated on plan of care and expected duration. Pain level reassessed. Patient is alert, oriented x 3, equal unlabored respirations, skin warm/dry/pink. 12/27 00:00 General: Report given to RN. Alanis . jw7 Vital Signs: 12/26 19:10 BP 152 / 57; Pulse 80; Resp 18; Temp 98; Pulse Ox 100% ; cp4 20:19 BP 157 / 58; Pulse 84; Resp 18; Pulse Ox 97% ; cp4 21:30 BP 134 / 50; Pulse 78; Resp 18; Pulse Ox 100% ; cp4 22:45 BP 128 / 51; Pulse 79; Resp 16 S; Pulse Ox 100% on R/A; jw7 23:40 BP 140 / 50; Pulse 79; Resp 15 S; Pulse Ox 100% on R/A; jw7 ED Course: 19:05 Patient arrived in ED. cp4 19:09 Belinda Lei is Primary Nurse. cp4 19:12 Triage completed. cp4 19:12 Arm band placed on right wrist. Patient placed in the treatment room. cp4 19:13 Boogie Archer DO is Attending Physician. ms3 19:25 Bed in low position. Call light in reach. Side rails up X2. Provided Education on: cp4 liver failure. 19:25 No provider procedures requiring assistance completed. cp4 19:38 Inserted saline lock: 20 gauge in right wrist, using aseptic technique. pm6 19:53 CBC with Diff Sent. cp4 19:53 CMP Sent. cp4 19:53 AMMONIA Sent. cp4 19:53 PT-INR Sent. cp4 20:34 CXR XRAY In Process Unspecified. EDMS 23:33 Kareem Cho MD is Hospitalizing Provider. ms3 23:56 Patient admitted, IV remains in place. jw7 Administered Medications: 22:46 Drug: Lactulose PO 30 grams 45 ml PO once Volume: 45 ml; Route: PO; jw7 12/27 00:12 Follow up: Response: No adverse reaction renay Medication: 12/26 19:25 VIS not applicable for this client. cp4 Outcome: 23:33 Decision to Hospitalize by Provider. ms3 23:55 Admitted to Med/surg accompanied by tech, via stretcher, renay 23:55 Condition: stable 23:55 Instructed on the need for admit, Demonstrated understanding of instructions, 12/27 00:17 Patient left the ED. jw7 Signatures: Dispatcher [employer] Boogie Villagomez DO DO ms3 Meseret Melton RN RN jw7 Belinda Lei cp4 Tracy Soares pm6
--- NOTE | 2023-12-26 23:33 | EDPHYS ---
Physician Documentation [facility] Name: Rena Burch Age: 73 yrs Sex: Female : 1950 Arrival Date: 12/26/2023 Time: 18:49 Bed 18 Private MD: ED Physician Boogie Archer HPI: 12/27 00:15 This 73 yrs old Female presents to ER via EMS with complaints of Altered Mental Status. ms3 00:15 73-year-old female with past medical history of COPD, diabetes, hypertension, liver ms3 failure presents to the emergency department for altered mental status that began today. Patient's daughter notes patient had paracentesis performed yesterday patient has had questionable medication compliance since her paracentesis. Patient denies pain. Patient denies any alleviating or inciting factors. Patient endorses generalized weakness. Historical: - Allergies: 12/26 19:12 No Known Allergies; cp4 - PMHx: 19:12 COPD; Diabetes - IDDM; Hypertension; Liver failure (currently on liver transplant cp4 list); Paracentesis; Psoriatic Arthritis; fatty liver; - Immunization history:: Adult Immunizations up to date. - Social history:: Smoking status: Patient denies any tobacco usage or history of. ROS: 12/27 00:15 Constitutional: Negative for fever, and chills. Neck: Negative for injury, pain, and ms3 swelling, Cardiovascular: Negative for chest pain, and palpitations. Respiratory: Negative for shortness of breath, cough, wheezing, and pleuritic chest pain, Abdomen/GI: Negative for abdominal pain, nausea, vomiting, diarrhea, and constipation, Skin: Negative for injury, rash, and discoloration, Neuro: Positive for Confusion/altered mental status, Exam: 00:15 Constitutional: This is a well developed, well nourished patient who is awake, alert, ms3 and in no acute distress. Head/Face: Normocephalic, atraumatic. Neck: Trachea midline, no cervical lymphadenopathy. Supple, full range of motion without nuchal rigidity, or vertebral point tenderness. No Meningismus. Chest/axilla: Normal chest wall appearance and motion. Nontender with no deformity. Cardiovascular: Regular rate and rhythm with a normal S1 and S2. No gallops, murmurs, or rubs. Normal PMI, no JVD. No pulse deficits. Respiratory: Lungs have equal breath sounds bilaterally, clear to auscultation and percussion. No rales, rhonchi or wheezes noted. No increased work of breathing, no retractions or nasal flaring. Abdomen/GI: Soft, non-tender, with normal bowel sounds. No distension or tympany. No guarding or rebound. No evidence of tenderness throughout. Skin: Warm, dry with normal turgor. Normal color with no rashes, no lesions, and no evidence of cellulitis. Vital Signs: 12/26 19:10 BP 152 / 57; Pulse 80; Resp 18; Temp 98; Pulse Ox 100% ; cp4 20:19 BP 157 / 58; Pulse 84; Resp 18; Pulse Ox 97% ; cp4 21:30 BP 134 / 50; Pulse 78; Resp 18; Pulse Ox 100% ; cp4 22:45 BP 128 / 51; Pulse 79; Resp 16 S; Pulse Ox 100% on R/A; jw7 23:40 BP 140 / 50; Pulse 79; Resp 15 S; Pulse Ox 100% on R/A; jw7 MDM: 19:23 Patient medically screened. ms3 12/27 00:15 Differential Diagnosis: CVA, electrolyte abnormality, Hepatic encephalopathy. Data ms3 reviewed: vital signs, nurses notes, lab test result(s), radiologic studies, and as a result, I will admit patient. 00:18 Management of patient was discussed with the following: Hospitalist: Dr Colón. I ms3 considered the following discharge prescriptions or medication management in the emergency department Medications were administered in the Emergency Department. See MAR. Independent interpretation of the following test(s) in the Emergency Department X-Ray: My interpretation is Chest x-ray image reviewed by me does not reveal pneumonia. Historians other than the Patient: Daughter/Son: Patient's daughter. Counseling: I had a detailed discussion with the patient and/or guardian regarding the historical points, exam findings, and any diagnostic results supporting the discharge/admit diagnosis, lab results, radiology results, the need for further work-up and treatment in the hospital. Special discussion: I discussed with the patient/guardian in detail that at this point there is no indication for admission to the hospital. It is understood, however, that if the symptoms persist or worsen the patient needs to return immediately for re-evaluation. ED course: Discussed labs and imaging with patient and her daughter. Patient with generalized weakness difficulty ambulating around house and elevated ammonia with confusion. Patient noncompliant with home medications. Ammonia level slightly elevated. Lactulose administered. Discussed case with Dr. Colón and she accepts patient.. 12/26 19:25 Order name: CBC with Diff; Complete Time: 20:25 ms3 12/26 19:25 Order name: CMP; Complete Time: 20:25 ms3 12/26 19:25 Order name: Urinalysis w/ reflexes; Complete Time: 22:27 ms3 12/26 19:25 Order name: AMMONIA; Complete Time: 20:25 ms3 12/26 19:26 Order name: PT-INR; Complete Time: 20:25 ms3 12/26 22:07 Order name: Urine Culture EDMS 12/26 23:19 Order name: Urinalysis w/ reflexes EDMS 12/26 23:19 Order name: CBC with Automated Diff EDMS 12/26 23:19 Order name: CBC with Automated Diff EDMS 12/26 23:19 Order name: Comprehensive Metabolic Panel EDMS 12/26 23:19 Order name: Comprehensive Metabolic Panel EDMS 12/26 19:26 Order name: CXR XRAY; Complete Time: 21:12 ms3 12/26 23:19 Order name: Physical Therapy Consult EDMS 12/26 19:25 Order name: IV Saline Lock; Complete Time: 19:53 ms3 12/26 19:25 Order name: Labs collected and sent; Complete Time: 19:53 ms3 Administered Medications: 12/26 22:46 Drug: Lactulose PO 30 grams 45 ml PO once Volume: 45 ml; Route: PO; jw7 12/27 00:12 Follow up: Response: No adverse reaction jw7 Disposition Summary: 12/26/23 23:33 Hospitalization Ordered Notes: Hospitalization Status: Observation ms3 Provider: Kareem Cho ms3 Location: Telemetry/MedSurg (observation) ms3 Condition: Stable ms3 Problem: new ms3 Symptoms: are unchanged ms3 Bed/Room Type: Standard ms3 Room Assignment: [id number](12/26/23 23:51) [email or web address] Diagnosis - Encephalopathy, unspecified - Hepatic ms3 - Altered mental status, unspecified ms3 - Muscle weakness (generalized) ms3 Forms: - Medication Reconciliation Form ms3 - SBAR form ms3 - Leadership Thank You Letter ms3 Signatures: Dispatcher [employer] Boogie Villagomez, DO DO ms3 Meseret Melton RN RN [email or web address] Belinda Lei cp4 Talisha Bateman [email or web address] Corrections: (The following items were deleted from the chart) 12/26 23:51 23:33 ms3 [email or web address]
[2023-12-27 00:38] VITALS: BMI 28.5
[2023-12-27 03:10] LABS: Absolute Lymphocytes (CBC) 0.3 K/uL (0.7-4.9); MCV 80.3 fL (80-100); MPV 8.7 fL (7.6-11.3); Platelets 76 thou/uL (152-406); RBC Red Blood Cell Count 2.99 M/uL (3.86-4.86)
[2023-12-27 03:28] LABS: Albumin 2.5 g/dL (3.4-5.0); Bilirubin Total 1.3 mg/dL (0.2-1.0); Potassium 3.7 mEq/L (3.5-5.1); Protein, Total 5.3 g/dL (6.4-8.2)
[2023-12-27] MEDS: INSULIN REGULAR (HUMAN) 100 UNIT/ML SQ SCH (07:30)
[2023-12-27] MEDS: Rifaximin 550 MG Tab PO SCH (09:07)
[2023-12-27] MEDS: LACTULOSE 20 GM/30 ML UCUP PO SCH ×2 (09:07→20:14)
[2023-12-27 09:48] LABS: Anisocytosis 1+; Blood Morphology Comment NOTED (NOT SEEN); Platelet Estimate DECR; White Blood Cell Scan OK (OK)
[2023-12-27] MEDS: METOPROLOL TAR 50 MG TAB PO SCH (10:36)
[2023-12-27] MEDS: AMLODIPINE 5 MG TAB PO SCH (10:36)
[2023-12-27] MEDS: PANTOPRAZOLE 40MG TABLET PO SCH (11:49)
--- NOTE | 2023-12-27 14:36 | P.PN ---
Subjective Date of Service: 12/27/23 Chief Complaint: Confusion Since confusion has improved. She has been interacting meaningfully. She ate her breakfast. Patient reported no bowel movement. Physical Examination - Vital Signs Temperature: 99.4 F Blood Pressure: 171/74 Pulse: 93 Respirations: 20 Pulse Ox (%): 95 - Studies Laboratory Data (last 24 hrs) 12/26/23 12/26/23 12/26/23 19:53 19:53 19:53 WBC 6.30 Hgb 9.0 L Hct 27.7 L Plt Count 85 L PT 14.7 H INR 1.35 Sodium 137 Potassium 3.6 BUN 67 H Creatinine 2.35 H Glucose 245 H Total Bilirubin 1.3 H AST 36 ALT 25 Alkaline Phosphatase 117 Assessment And Plan - Plan Physical Exam General: Alert, Oriented x3, Cooperative HEENT: Mucous membr. moist/pink, anicteric sclera. 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 Patient is undergoing weekly abdominal paracentesis. Ammonia level mildly elevated-probably patient's baseline Continue lactulose and titrate to 2 loose bowel movements per day Continue rifaximin. Continue home dose Lasix Start Aldactone PT consult for decreased mobility. Diabetes mellitus type 2 Insulin sliding scale for glucose management. CKD stage IV Stable creatinine at baseline. Monitor renal function on diuretics. Hypertension Uncontrolled. Home antihypertensives-amlodipine and metoprolol resumed. Hydralazine as needed for BP spikes. DVT prophylaxis: SCD
[2023-12-27] MEDS ORDERED: HYDRALAZINE HCL 20 MG/ML VIAL IV PRN (14:47)
[2023-12-27] MEDS: SPIRONOLACTONE 25 MG TABLET PO SCH (14:53)
[2023-12-27] MEDS: FUROSEMIDE 40 MG TABLET PO SCH (16:11)
[2023-12-27] MEDS: ATORVASTATIN 10 MG TAB PO SCH (20:13)
[2023-12-27] MEDS ORDERED: Rifaximin 550 MG Tab PO SCH (21:00)
[2023-12-28 05:59] LABS: Absolute Lymphocytes (CBC) 0.5 K/uL (0.7-4.9); Hematocrit 25.2 % (36.0-45.0); Lymphocytes % 10.6 % (15.3-44.8); MCV 80.7 fL (80-100); Platelets 76 thou/uL (152-406); RBC Red Blood Cell Count 3.12 M/uL (3.86-4.86)
[2023-12-28 06:23] LABS: Albumin 2.5 g/dL (3.4-5.0); Bilirubin Total 1.2 mg/dL (0.2-1.0); Potassium 4.4 mEq/L (3.5-5.1); Protein, Total 5.5 g/dL (6.4-8.2)
[2023-12-28] MEDS: LEVOCETIRIZINE DIHYDROCHLORIDE 5 MG PO SCH (08:44)
--- NOTE | 2023-12-28 18:08 | P.PN ---
Subjective Date of Service: 12/28/23 Chief Complaint: Confusion No confusion today. Patient reports generalized weakness. She has been tolerating her meals. She had bowel movement yesterday. Physical Examination - Vital Signs Temperature: 97.1 F Blood Pressure: 139/65 Pulse: 59 Respirations: 16 Pulse Ox (%): 98 Assessment And Plan - Plan Physical Exam General: Alert, Oriented x3, Cooperative HEENT: Mucous membr. moist/pink, anicteric sclera. Neck: Supple, JVD not distended Respiratory: Clear to auscultation bilaterally Cardiovascular: No edema, Regular rate/rhythm Gastrointestinal: Normal bowel sounds, Soft and benign. 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 Patient is undergoing weekly abdominal paracentesis. Ammonia level mildly elevated-probably patient's baseline Continue lactulose and titrate to 2 loose bowel movements per day Continue rifaximin. Continue home dose Lasix Start Aldactone Decreased mobility Patient did not do much with physical therapy and appears quite weak Anticipating disposition to skilled rehab. Continue PT. Diabetes mellitus type 2 Insulin sliding scale for glucose management. CKD stage IV Stable creatinine at baseline. Monitor renal function on diuretics. Hypertension Home antihypertensives-amlodipine and metoprolol resumed. Hydralazine as needed for BP spikes. DVT prophylaxis: SCD
[2023-12-29 03:50] LABS: Absolute Lymphocytes (CBC) 0.6 K/uL (0.7-4.9); Hematocrit 24.1 % (36.0-45.0); Lymphocytes % 13.3 % (15.3-44.8); MCV 80.6 fL (80-100); MPV 8.7 fL (7.6-11.3); Platelets 63 thou/uL (152-406); RBC Red Blood Cell Count 2.99 M/uL (3.86-4.86)
[2023-12-29 04:21] LABS: Albumin 2.3 g/dL (3.4-5.0); Bilirubin Direct 0.4 mg/dL (0-0.2); Bilirubin Indirect, Calculated 0.6 mg/dL (0.2-0.8); Potassium 3.9 mEq/L (3.5-5.1); Protein, Total 5.1 g/dL (6.4-8.2)
--- NOTE | 2023-12-29 07:52 | P.PN ---
Date of Service: 12/29/23 Subjective: More alert / awake today. Mentation improving able to respond to most questions appropriately Feels shes been having to urinate more frequently recently Cant remember if shes been having UTI symptoms past few days. 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 3.4L removed Patient undergoing weekly abdominal paracentesis. CXR (12/26): small-mod left pleural effusion with presumably underlying atelectasis Ammonia level mildly elevated-probably patient's baseline Continue lactulose and titrate to 2 loose bowel movements per day Continue rifaximin Continue PO Lasix BID Continue Aldactone Bacteriuria - Klebsiella Pneumoniae Esbl Feels shes been having to urinate more frequently recently. but having difficulty recalling if shes had other / more symptoms past few days urine cx (12/26): Klebsiella Pneumoniae Esbl, 2+ staph faculty head Started empiric merrem (12/29-) afebrile, no leukocytosis ID consulted Decreased mobility Psoriatic arthritis Patient did not do much with physical therapy and appears quite weak ss/cm consulted for dispo options, HH / SNF Continue PT. NIDDM2 Insulin sliding scale CKD4 continue lasix, spironolactone Continue to monitor renal function Creatinine improving, ~baseline Hypertension confirm home meds, restart as appropriate Hydralazine as needed for BP spikes. VTE: SCD Code: Full Dispo: home with HH vs SNF. likely will need 5-7 days of IV antibiotics
[2023-12-29] MEDS: Meropenem 1,000 MG in NA CHLORIDE 0.9% 100 ML IV SCH (08:27)
[2023-12-29] MEDS ORDERED: CEFTRIAXONE 1,000 MG in NA CHLORIDE 0.9% 50 ML IVPB SCH (09:00)
--- NOTE | 2023-12-29 09:25 | P.CNS ---
Date of Consult: 12/29/23 Reason for Consult: klebsiella ESBL Requesting Physician: Carlos Diego Chief Complaint: Confusion History of Present Illness: Patient is a 73-year-old female with a medical history of cirrhosis, CKD stage IV, hypertension, diabetes mellitus type 2 who presented to the ED due to weakness and confusion. Urine culture growing Klebsiella pneumoniae ESBL. Infectious disease was consulted. Allergies No Known Allergies Allergy (Verified 12/18/23 08:47) Home medications list reviewed: Yes Home Medications: Atorvastatin Calcium 10 mg PO BEDTIME 07/01/21 Levocetirizine Dihydrochloride [Xyzal] 5 mg PO DAILY 07/01/21 Metoprolol Tartrate 100 mg PO BID 07/01/21 Omeprazole [Prilosec] 40 mg PO DAILY 07/01/21 Rifaximin [Xifaxan] 550 mg PO BID 07/01/21 Furosemide [Lasix*] 40 mg PO BIDL 08/30/23 Lactulose [Cephulac*] 20 gm PO BID 08/30/23 Amlodipine [Norvasc*] 1 tab PO DAILY 12/18/23 - Past Medical/Surgical History Diabetic: Yes -: CirrhosisNASH -: Diabetes mellitus type 2 -: Hypertension -: Anemia -: Psoriatic arthritis -: COPD -: LIZETTE Mastectomy and reconstruction -: Hysterectomy -: Right Ankle Sx -: Right Wrist Sx Psychosocial/ Personal History: Lives at home with family, daughter - Family History Father Medical History: Heart disease Mother Medical History: Diabetes, Cancer Notes: Breast - Social History Smoking Status: Unknown if ever smoked Alcohol use: No CD- Drugs: No Caffeine use: Yes Place of Residence: Home Review of Systems Gastrointestinal: Abdominal Pain Genitourinary: Frequency Physical Examination Temp Pulse Resp BP Pulse Ox 97.5 F 59 18 138/79 94 12/29/23 04:00 12/29/23 04:00 12/29/23 04:00 12/29/23 04:00 12/29/23 04:00 General: In no apparent distress, Oriented x2 HEENT: Atraumatic Respiratory: Normal air movement, Diminished, Other (unlabored respirations on room ai) Cardiovascular: Regular rate/rhythm, Edema (BLE 2+) Gastrointestinal: Normal bowel sounds, Distended, Ascites, Tenderness Integumentary: Pressure ulcer (right buttock stage II ) Laboratory data -Reviewed Microbiology data -Reviewed Imagings Data: -Reviewed Conclusions/Impression: Problem list hepatic encephalopathy Cirrhosis secondary to LEE Pleural effusion Acute cystitis Diabetes mellitus type 2 Chronic kidney disease stage IV Hypertension Thrombocytopenia Anemia of chronic disease Acute cystitis -Urine cultures 12/26: Klebsiella pneumonia ESBL -On meropenem (started 12/29) Afebrile Recommendations -acute cystitis: Continue meropenem for 5 days (12/29-01/02) -Monitor WBC and fever trends -Renally dose medications -Continue supportive care Case discussed with Dr. Newby NKennedy
[2023-12-30 03:23] LABS: Absolute Lymphocytes (CBC) 0.6 K/uL (0.7-4.9); Hematocrit 25.4 % (36.0-45.0); Lymphocytes % 13.3 % (15.3-44.8); MCV 80.4 fL (80-100); MPV 8.7 fL (7.6-11.3); Platelets 70 thou/uL (152-406); RBC Red Blood Cell Count 3.16 M/uL (3.86-4.86)
[2023-12-30 03:36] LABS: Albumin 2.4 g/dL (3.4-5.0); Bilirubin Total 1.1 mg/dL (0.2-1.0); Magnesium 2.3 mg/dL (1.6-2.4); Potassium 4.1 mEq/L (3.5-5.1); Protein, Total 5.3 g/dL (6.4-8.2)
--- NOTE | 2023-12-30 08:49 | P.PN ---
Date of Service: 12/30/23 Chief Complaint: Confusion Subjective: Patient seen and examined at bedside. In no apparent distress. Denies any new or worsening complaints at this time. Denies any urinary symptoms. Physical Examination Temp Pulse Resp BP Pulse Ox 97.6 F 56 14 132/60 98 12/30/23 08:00 12/30/23 08:08 12/30/23 08:00 12/30/23 08:08 12/30/23 08:00 General: In no apparent distress, Oriented x2 HEENT: Atraumatic Respiratory: Normal air movement, Diminished. On room air. Cardiovascular: Regular rate/rhythm. BLE edema 1+. Gastrointestinal: Normal bowel sounds, Distended. Mild tenderness 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 Pleural effusion Acute cystitis Diabetes mellitus type 2 Chronic kidney disease stage IV Hypertension Thrombocytopenia Anemia of chronic disease Acute cystitis -Urine cultures 12/26: Klebsiella pneumonia ESBL - update 12/30 urine culture new results = Klebsiella pneumoniae ESBL, Escherichia coli ESBL, and Methicillin-Resistant Staphylococcus aureus (MRSA) -On meropenem (started 12/29) Afebrile Recommendations -acute cystitis - ESBL: Continue meropenem for 7 days (12/29-01/04) - MRSA: Start on Vancomcyin IV, renally dose, pharmacy consult. Continue for 7 days. -Monitor CBC and BMP - Pressure offloading measures. Turn patient q2h. Apply barrier cream to sacrum/buttocks BID. -Continue supportive care Case discussed with Ariadne Alavrado
--- NOTE | 2023-12-30 09:40 | P.PN ---
Date of Service: 12/30/23 Subjective: Feels some improvement each day Doesn't feel anything has gotten worse. no new problems Rehab approved as of 12/29. 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 3.4L removed Patient undergoing weekly abdominal paracentesis. CXR (12/26): small-mod left pleural effusion with presumably underlying atelectasis Ammonia level mildly elevated-probably patient's baseline Continue lactulose and titrate to 2 loose bowel movements per day Continue rifaximin Continue PO Lasix BID Continue Aldactone feels slight increase in ascites, typically gets weekly paracentesis every thursday, will order for tomorrow Acute Cystitis - Klebsiella Pneumoniae Esbl, E. coli Esbl, MRSA Feels shes been having to urinate more frequently recently. but having difficulty recalling if shes had other / more symptoms past few days urine cx (12/26): multiple organisms including Klebsiella Pneumoniae Esbl, E. Coli Esbl, MRSA continue merrem (12/29-/01/04); continue for 7 days total per ID Start IV vanc (12/30-) to cover MRSA for 7 days total afebrile, no leukocytosis ID following midline ordered 12/30 for IV antibiotics Nephrology consulted, ok with midline, would prefer avoidance of picc pt following with liver/renal transplant team Stage 2 sacral decubitus ulcer Pressure offloading measures. turn q2h Continue barrier cream BID Decreased mobility Psoriatic arthritis Patient did not do much with physical therapy and appears quite weak, states she wants to get better and seems motivated ss/cm consulted. Approved for inpatient rehab 12/29. Continue PT. NIDDM2 Insulin sliding scale CKD4 continue lasix, spironolactone Continue to monitor renal function Creatinine improving, suspect new baseline ~low 2s Nephrology consulted Hypertension confirm home meds, restart as appropriate Hydralazine as needed for BP spikes. VTE: SCD Code: Full Dispo: IPR approved. Pending medical clearance midline for 5-7 days of IV antibiotics
--- NOTE | 2023-12-30 10:25 | P.CNS ---
Date of Consult: 12/30/23 Reason for Consult: CKD Requesting Physician: Carlos Diego Chief Complaint: Confusion History of Present Illness: 73-year-old female with a history of cirrhosis secondary to [place], CKD stage IV, hypertension and diabetes mellitus was brought to the ED by her daughter due to weakness and confusion. Patient's reported she woke up from sleep around 4:45 PM and about 15 minutes later she has become disoriented and was noted to be very weak with difficulty walking or moving to the bathroom. Patient had left thoracentesis 3 weeks ago and her weekly paracentesis yesterday with removal of 3.4 L and was given albumin per routine without any issues. However today she had slept all day and had not taking any of her medications including lactulose and Xifaxan. She has not had any bowel movement today, denied any fever, abdominal pain, nausea or vomiting, dysuria, and chest pain. On arrival to the ED her vital signs are within normal limits. ED workup abnormal labs include H&H 9/27, bicarb 20, BUN/cr 67/2.37 which are all about her baseline. Chest x-ray showed small to moderate left pleural effusion which is decreased from prior. Ammonia level is 63, however patient has chronically elevated ammonia level from her cirrhosis. She was given a dose of 45 mg lactulose in the ED and her mental status has begun to significantly improve however she is very worried about her weakness and falling, so patient will be admitted for observation to continue home meds and PT evaluation. 00:15 This 73 yrs old Female presents to ER via EMS with complaints of Altered Mental Status. ms3 00:15 73-year-old female with past medical history of COPD, diabetes, hypertension, liver ms3 failure presents to the emergency department for altered mental status that began today. Patient's daughter notes patient had paracentesis performed yesterday patient has had questionable medication compliance since her paracentesis. Patient denies pain. Patient denies any alleviating or inciting factors. Patient endorses generali zed weakness. She reports that she may be a liver kidney transplant candidate. No current NSAIDs. No bladder difficulties. The HPI/ ROS was difficult due to her somnolence. Allergies No Known Allergies Allergy (Verified 12/18/23 08:47) Home medications list reviewed: Yes Home Medications: Atorvastatin Calcium 10 mg PO BEDTIME 07/01/21 Levocetirizine Dihydrochloride [Xyzal] 5 mg PO DAILY 07/01/21 Metoprolol Tartrate 100 mg PO BID 07/01/21 Omeprazole [Prilosec] 40 mg PO DAILY 07/01/21 Rifaximin [Xifaxan] 550 mg PO BID 07/01/21 Furosemide [Lasix*] 40 mg PO BIDL 08/30/23 Lactulose [Cephulac*] 20 gm PO BID 08/30/23 Amlodipine [Norvasc*] 1 tab PO DAILY 12/18/23 - Past Medical/Surgical History Diabetic: Yes -: CirrhosisNASH -: Diabetes mellitus type 2 -: Hypertension -: Anemia -: Psoriatic arthritis -: COPD -: CKD IV (Dr. Pearce/ Dr. Nicholson) -: LIZETTE Mastectomy and reconstruction -: Hysterectomy -: Right Ankle Sx -: Right Wrist Sx Psychosocial/ Personal History: Lives at home with family, daughter - Family History Father Medical History: Heart disease Mother Medical History: Diabetes, Cancer Notes: Breast - Social History Smoking Status: Unknown if ever smoked Alcohol use: No CD- Drugs: No Caffeine use: Yes Place of Residence: Home Review of Systems 10-point ROS is otherwise unremarkable General: Weakness, Malaise Neurological: Other (Somnolent) Physical Examination Temp Pulse Resp BP Pulse Ox 97.6 F 56 14 132/60 98 12/30/23 08:00 12/30/23 08:08 12/30/23 08:00 12/30/23 08:08 12/30/23 08:00 General: In no apparent distress, Oriented x3, Cooperative HEENT: Atraumatic Neck: Supple Respiratory: Normal air movement Cardiovascular: No edema, Regular rate/rhythm Gastrointestinal: Non-distended, Tenderness Musculoskeletal: No clubbing, No contractures Integumentary: No rashes, No cyanosis Neurological: Normal speech Blood work reviewed in the chart. Imagings Data: EXAM DESCRIPTION: RAD - Chest Single View - 12/26/2023 8:32 pm CLINICAL HISTORY: ams COMPARISON: Chest Single View dated 12/04/2023; Chest Single View dated 08/29/2023; Chest Single View dated 05/15/2023; Chest Single View dated 02/14/2021 FINDINGS: Lines: None. Lungs: Likely atelectasis as a result of the effusion . Pleural: Small moderate left pleural effusion which is decreased in size . Cardiac: The heart size is within normal limits. Mediastinum: Within normal limits. Bones: No acute fractures. Other: None IMPRESSION: Small to moderate left pleural effusion and presumably underlying atelectasis which is decreased in size from prior . Conclusions/Impression: CKD IV -No NSAIDs HTN with CKD -Continue Metoprolol DM II -RISS Liver Cirrhoss with Ascites Hepatic Encephalopathy -Continue Lactulose -Paracentesis prn -Continue furosemide and spironolactone Hypoalbuminemia -Maintain nutrition Anemia in chronic illness Thrombocytopenia -Monitor CBC Acute Klebsiella ESBL Cystitis -Continue Abx Case reviewed with Dr. Diego Thank you kindly for the consultation
[2023-12-30] MEDS: VANCOMYCIN 1.5 GM in NA CHLORIDE 0.9% 500 ML IVPB SCH (10:55)
[2023-12-31 05:25] LABS: Absolute Lymphocytes (CBC) 0.5 K/uL (0.7-4.9); Hematocrit 22.4 % (36.0-45.0); Lymphocytes % 13.3 % (15.3-44.8); MCV 80.6 fL (80-100); MPV 8.9 fL (7.6-11.3); Platelets 67 thou/uL (152-406); RBC Red Blood Cell Count 2.78 M/uL (3.86-4.86)
[2023-12-31 05:50] LABS: Albumin 2.1 g/dL (3.4-5.0); Bilirubin Total 0.9 mg/dL (0.2-1.0); Magnesium 2.3 mg/dL (1.6-2.4); Potassium 4.2 mEq/L (3.5-5.1); Protein, Total 4.9 g/dL (6.4-8.2)
--- NOTE | 2023-12-31 08:46 | P.PN ---
Date of Service: 12/31/23 Chief Complaint: Confusion Subjective: In no apparent distress. Denies any new or worsening complaints at this time. No acute events overnight. Physical Examination Temp Pulse Resp BP Pulse Ox 97.2 F 65 18 149/65 H 98 12/31/23 04:00 12/31/23 04:00 12/31/23 04:00 12/31/23 04:00 12/31/23 04:00 General: In no apparent distress, Oriented x3 HEENT: Atraumatic. Respiratory: Normal air movement, Diminished. On room air. Cardiovascular: Regular rate/rhythm. Trace BLE edema. Gastrointestinal: Normal bowel sounds. Ascites. Nontender. 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 Pleural effusion Acute cystitis Diabetes mellitus type 2 Chronic kidney disease stage IV Hypertension Thrombocytopenia Anemia of chronic disease Acute cystitis -Urine cultures 12/26: Klebsiella pneumonia ESBL -*update 12/30 urine culture= Klebsiella pneumoniae ESBL, Escherichia coli ESBL, and Methicillin-Resistant Staphylococcus aureus (MRSA) -On meropenem (started 12/29) - Started on Vancomycin 12/30 Afebrile Recommendations -acute cystitis - ESBL: Continue meropenem for 7 days (12/29-01/04) - MRSA: Continue Vancomycin x 7 days (12/30- 01/06) - Bactroban nasal BID x 5 days -Monitor CBC and BMP - Pressure offloading measures. Turn patient q2h. Apply barrier cream to sacrum/buttocks BID. -Continue supportive care Case discussed with Ariadne Alvarado
--- NOTE | 2023-12-31 09:10 | P.PN ---
Date of Service: 12/31/23 Subjective: plan for tentative paracentesis tomorrow am. Unable to get done today had BM today. doesn't feel constipated. minimal abdominal pain / cramps hgb down this morning. no obvious bleeds seen on exam. 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 3.4L removed Patient undergoing weekly abdominal paracentesis. CXR (12/26): small-mod left pleural effusion with presumably underlying atelectasis Ammonia level mildly elevated-probably patient's baseline Continue lactulose and titrate to 2 loose bowel movements per day Continue rifaximin Continue PO Lasix BID Continue Aldactone feels slight increase in ascites, plan for tentative therapeutic paracentesis tomorrow am. spoke with radiology - couldn't be done today 12/31 Acute Cystitis - Klebsiella Pneumoniae Esbl, E. coli Esbl, MRSA Feels shes been having to urinate more frequently recently. but having difficulty recalling if shes had other / more symptoms past few days urine cx (12/26): multiple organisms including Klebsiella Pneumoniae Esbl, E. Coli Esbl, MRSA continue IV merrem (12/29-01/04) and vanc (12/30-01/06) continue merrem / vanc for 7 days total per ID Bactroban nasal added (12/31-) per ID. Continue for 5 days total afebrile, no leukocytosis ID following midline ordered 12/30 for IV antibiotics; s/p placement now Nephrology consulted, ok with midline, would prefer avoidance of picc pt following with liver/renal transplant team Acute on chronic anemia / Hx of iron deficiency anemia hgb levels fluctuating throughout hospitalization. Patient has history of iron deficiency anemia. hgb down 8.3 -> 7.2 (12/31) suspicious on validity/accuracy, will recheck later this morning no obvious bleeds seen on exam. Patient denies any bleeding repeat H&H pending Daily CBC Stage 2 sacral decubitus ulcer Pressure offloading measures. turn q2h Continue barrier cream BID Decreased mobility Psoriatic arthritis Patient did not do much with physical therapy and appears quite weak, states she wants to get better and seems motivated ss/cm consulted. Approved for inpatient rehab 12/29. Continue PT. NIDDM2 Insulin sliding scale CKD4 continue lasix, spironolactone Continue to monitor renal function suspect new baseline creatinine ~low 2s Nephrology consulted Hypertension confirm home meds, restart as appropriate Hydralazine as needed for BP spikes. VTE: SCD Code: Full Dispo: IPR approved. Pending medical clearance Pending therapeutic paracentesis tomorrow, needs midline for 5-7 days of IV antibiotics, hgb stabilizes
[2023-12-31] MEDS: Mupirocin NASAL 2 APPL/1 GM TUBE NAS SCH (10:05)
--- NOTE | 2023-12-31 10:52 | P.PN ---
Date of Service: 12/31/23 Vital Signs Temp Pulse Resp BP Pulse Ox 97.2 F 61 18 180/75 H 98 12/31/23 04:00 12/31/23 10:09 12/31/23 04:00 12/31/23 10:09 12/31/23 04:00 Medications Atorvastatin Calcium (Atorvastatin 10 Mg Tab) 10 mg PO BEDTIME [facility] Last Admin: 12/30/23 21:18 Dose: 10 mg Furosemide (Furosemide 40 Mg Tablet) 40 mg PO BIDL [facility] Last Admin: 12/31/23 10:07 Dose: 40 mg Glucagon (Glucagon 1 Mg/Vial) 1 mg IM 1X PRN PRN Reason: HYPOGLYCEMIA Home Med (Levocetirizine Dihydrochloride [Xyzal]) 5 mg PO DAILY [facility] Last Admin: 12/30/23 08:08 Dose: Not Given Hydralazine HCl (Hydralazine Hcl 20 Mg/Ml Vial) 10 mg IV Q6HP PRN PRN Reason: Goal to achieve SBP in comment Meropenem 1,000 mg/ Sodium (Chloride) 100 mls @ 200 mls/hr IV Q12HR [facility] Last Admin: 12/31/23 10:10 Dose: 100 mls Vancomycin HCl 1.5 gm/ Sodium (Chloride) 500 mls @ 333.333 mls/hr IVPB Q48H [facility] Last Admin: 12/30/23 10:55 Dose: 500 mls Insulin Human Regular (Insulin Regular (Human) 100 Unit/Ml) 0 unit SQ ACHS [facility]; Protocol Last Admin: 12/30/23 21:18 Dose: 2 unit Lactulose (Lactulose 20 Gm/30 Ml Ucup) 20 gm PO BID [facility] Last Admin: 12/31/23 10:06 Dose: 20 gm Metoprolol Tartrate (Metoprolol Tar 50 Mg Tab) 100 mg PO BID [facility] Last Admin: 12/31/23 10:09 Dose: 100 mg Mupirocin (Mupirocin Nasal 2 Appl/1 Gm Tube) 1 appl DELLA BID [facility] Stop: 01/04/24 21:01 Last Admin: 12/31/23 10:05 Dose: 2 appl Ondansetron HCl (Ondansetron 4 Mg/2 Ml Vial) 4 mg IV Q6HP PRN PRN Reason: NAUSEA / VOMITING Pantoprazole Sodium (Pantoprazole 40mg Tablet) 40 mg PO DAILYAC [facility] Last Admin: 12/31/23 05:38 Dose: 40 mg Rifaximin (Rifaximin 550 Mg Tab) 550 mg PO BID [facility]; Protocol Last Admin: 12/31/23 10:11 Dose: 550 mg Spironolactone (Spironolactone 25 Mg Tablet) 50 mg PO DAILY [facility] Last Admin: 12/31/23 10:03 Dose: 50 mg Microbiology Results 12/26/23 21:11 Clean Catch Urine [place] Count - Final >100,000 CFU/ML. 12/26/23 21:11 Clean Catch Urine - Final Klebsiella Pneumoniae Esbl Escherichia Coli Esbl Meth Resistant Staph Aureus Assessment/ Plan: Nephrology More awake today No dyspnea No chest pain No acute events overnight Vitals, medications, blood work and imaging reviewed in the chart General: In no apparent distress, Oriented x3, Cooperative HEENT: Atraumatic Neck: Supple Respiratory: Normal air movement Cardiovascular: No edema, Regular rate/rhythm Gastrointestinal: Non-distended, Tenderness Musculoskeletal: No clubbing, No contractures Integumentary: No rashes, No cyanosis Neurological: Normal speech Blood work reviewed in the chart. Imagings Data: EXAM DESCRIPTION: RAD - Chest Single View - 12/26/2023 8:32 pm CLINICAL HISTORY: ams COMPARISON: Chest Single View dated 12/04/2023; Chest Single View dated 08/29/2023; Chest Single View dated 05/15/2023; Chest Single View dated 02/14/2021 FINDINGS: Lines: None. Lungs: Likely atelectasis as a result of the effusion . Pleural: Small moderate left pleural effusion which is decreased in size . Cardiac: The heart size is within normal limits. Mediastinum: Within normal limits. Bones: No acute fractures. Other: None IMPRESSION: Small to moderate left pleural effusion and presumably underlying atelectasis which is decreased in size from prior . Conclusions/Impression: CKD IV -No NSAIDs HTN with CKD -Continue Metoprolol DM II -RISS Liver Cirrhoss with Ascites Hepatic Encephalopathy -Continue Lactulose -Paracentesis prn -Continue furosemide and spironolactone Hypoalbuminemia -Maintain nutrition Anemia in chronic illness Thrombocytopenia -Monitor CBC -PRBC prn Acute Klebsiella ESBL Cystitis -Continue Abx Hospitalist and ID notes reviewed
[2023-12-31 10:59] LABS: Hematocrit 25.3 % (36.0-45.0)
[2024-01-01 04:47] LABS: Absolute Lymphocytes (CBC) 0.7 K/uL (0.7-4.9); Hematocrit 22.7 % (36.0-45.0); Lymphocytes % 13.6 % (15.3-44.8); MCV 80.4 fL (80-100); MPV 8.7 fL (7.6-11.3); Platelets 65 thou/uL (152-406); RBC Red Blood Cell Count 2.83 M/uL (3.86-4.86)
[2024-01-01 05:09] LABS: Protime INR 1.4
[2024-01-01 05:30] LABS: Albumin 2.2 g/dL (3.4-5.0); Bilirubin Total 0.9 mg/dL (0.2-1.0); Magnesium 2.3 mg/dL (1.6-2.4); Potassium 4.8 mEq/L (3.5-5.1); Protein, Total 5.2 g/dL (6.4-8.2)
[2024-01-01 07:06] LABS: Platelet Estimate DECR; White Blood Cell Scan OK (OK)
[2024-01-01 07:07] LABS: Anisocytosis 1+; Blood Morphology Comment NOTED (NOT SEEN)
--- NOTE | 2024-01-01 08:39 | P.PN ---
Date of Service: 01/01/24 Chief Complaint: Confusion Subjective: Patient seen and examined at bedside. In no apparent distress. Denies any new or worsening complaints at this time. s/p paracentesis this morning. Physical Examination Temp Pulse Resp BP Pulse Ox 99.4 F 67 17 123/57 L 96 01/01/24 04:00 01/01/24 04:00 01/01/24 04:00 01/01/24 04:00 01/01/24 04:00 General: In no apparent distress, Oriented x3 HEENT: Atraumatic. Respiratory: Normal air movement, Diminished. On room air. Cardiovascular: Regular rate/rhythm. Gastrointestinal: Normal bowel sounds. Nontender. 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 Pleural effusion Acute cystitis Diabetes mellitus type 2 Chronic kidney disease stage IV Hypertension Thrombocytopenia Anemia of chronic disease Acute cystitis -Urine cultures 12/26: Klebsiella pneumonia ESBL -*update 12/30 urine culture= Klebsiella pneumoniae ESBL, Escherichia coli ESBL, and Methicillin-Resistant Staphylococcus aureus (MRSA) -On meropenem (started 12/29) - Started on Vancomycin 12/30 Afebrile Recommendations -acute cystitis - ESBL: Continue meropenem for 7 days (12/29-01/04) - MRSA: Continue Vancomycin x 7 days (12/30- 01/06) - Bactroban nasal BID x 5 days -Monitor CBC and BMP - Pressure offloading measures. Turn patient q2h. Apply barrier cream to sacrum/buttocks BID. -Continue supportive care Case discussed with Ariadne Alvarado
--- NOTE | 2024-01-01 08:43 | P.PN ---
Date of Service: 01/01/24 Subjective: s/p therapeutic paracentesis today. 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 3.4L removed Patient undergoing weekly abdominal paracentesis. CXR (12/26): small-mod left pleural effusion with presumably underlying atelectas is Ammonia level mildly elevated-probably patient's baseline Continue lactulose and titrate to 2 loose bowel movements per day Continue rifaximin Continue PO Lasix BID Continue Aldactone feels slight increase in ascites, s/p therapeutic paracentesis today (01/01) ~3.5L removed Acute Cystitis - Klebsiella Pneumoniae Esbl, E. coli Esbl, MRSA Feels shes been having to urinate more frequently recently. but having difficulty recalling if shes had other / more symptoms past few days urine cx (12/26): multiple organisms including Klebsiella Pneumoniae Esbl, E. Coli Esbl, MRSA continue IV merrem (12/29-01/04) and vanc (12/30-01/06) continue merrem / vanc for 7 days total per ID Continue Bactroban nasal spray for 5 days total (12/31-01/04) afebrile, no leukocytosis ID following midline ordered 12/30 for IV antibiotics; s/p placement now Nephrology consulted, ok with midline, would prefer avoidance of picc pt following with liver/renal transplant team. Has Appointment scheduled ~January 07, 2024 Acute on chronic anemia / Hx of iron deficiency anemia hgb levels fluctuating throughout hospitalization. Patient has history of iron deficiency anemia. hgb down 8.2 -> 7.4 (01/01) no obvious bleeds seen on exam. Patient denies any bleeding Daily CBC Stage 2 sacral decubitus ulcer Pressure offloading measures. turn q2h Continue barrier cream BID Decreased mobility Psoriatic arthritis Working with PT. states she wants to get better and seems motivated ss/cm consulted. Approved for inpatient rehab 12/29. Continue PT. NIDDM2 Insulin sliding scale CKD4 continue lasix, spironolactone Continue to monitor renal function suspect new baseline creatinine ~low 2s Nephrology consulted Hypertension confirm home meds, restart as appropriate Hydralazine as needed for BP spikes. VTE: SCD Code: Full Dispo: IPR approved. Pending medical clearance Pending hgb stabilizes
--- NOTE | 2024-01-01 11:54 | P.PN ---
Nephrology S/p paracentesis, denies any abd pain, N/V Vitals, medications, blood work and imaging reviewed in the chart General: NAD HEENT: Atraumatic, sclera anicteric, not oN o2 Neck: Supple Respiratory: Normal air movement, non tachypnec, no rales Cardiovascular: No sig edema, Regular rate/rhythm mostly Gastrointestinal: Non-distended, soft, NT Musculoskeletal: No contractures Integumentary: No rashes Neurological: Awakens easily, responds briefly, no myoclonus or asterixis noted Blood work reviewed in the chart. Imagings Data: EXAM DESCRIPTION: RAD - Chest Single View - 12/26/2023 8:32 pm CLINICAL HISTORY: ams COMPARISON: Chest Single View dated 12/04/2023; Chest Single View dated 08/29/2023; Chest Single View dated 05/15/2023; Chest Single View dated 02/14/2021 FINDINGS: Lines: None. Lungs: Likely atelectasis as a result of the effusion . Pleural: Small moderate left pleural effusion which is decreased in size . Cardiac: The heart size is within normal limits. Mediastinum: Within normal limits. Bones: No acute fractures. Other: None IMPRESSION: Small to moderate left pleural effusion and presumably underlying at electasis which is decreased in size from prior . Conclusions/Impression: CKD IV 2nd to chronic conditions -Overall stable renal function but needs on going close monitoring Liver Cirrhosis with recurrent ascites Hepatic Encephalopathy POA -Continue maintenance diuretics with furosemide and spironolactone but using lower dose of latter due to low GFR state and risk for hyperkalemia Anemia in chronic illness Thrombocytopenia -Iron deficient in the past, recheck Acute Klebsiella ESBL Cystitis -Complete Abx course, dose for reduced CrCl
--- NOTE | 2024-01-01 12:55 | RAD REPORT ---
EXAM DESCRIPTION: US - Paracentesis Proc Guidance - 01/01/2024 8:57 am CLINICAL HISTORY: Liver disease with ascites FINDINGS: The risks, benefits and alternatives to the procedure were explained to the patient and in formed consent obtained. The skin and deeper tissues were anesthetized with Lidocaine. Under sonographic guidance an 8 [place] catheter was placed into the right lower quadrant. 3.5 liters of yellow fluid removed. The patient experienced no immediate complication. IMPRESSION: Paracentesis
[2024-01-01] MEDS: ALBUMIN HUMAN 25% 100 ML IV ONE (13:21)
[2024-01-01 14:14] LABS: Hematocrit 22.5 % (36.0-45.0)
[2024-01-02 05:08] LABS: Absolute Lymphocytes (CBC) 0.8 K/uL (0.7-4.9); Hematocrit 25.3 % (36.0-45.0); Lymphocytes % 17.4 % (15.3-44.8); MPV 9.4 fL (7.6-11.3); Platelets 65 thou/uL (152-406); RBC Red Blood Cell Count 3.13 M/uL (3.86-4.86)
[2024-01-02 05:33] LABS: Albumin 2.4 g/dL (3.4-5.0); Bilirubin Total 0.9 mg/dL (0.2-1.0); Magnesium 2.2 mg/dL (1.6-2.4); Potassium 4.3 mEq/L (3.5-5.1); Protein, Total 5.5 g/dL (6.4-8.2)
[2024-01-02 06:52] LABS: Anisocytosis 2+; Blood Morphology Comment NOTED (NOT SEEN); Ovalocytes 2+; Platelet Estimate DECR; White Blood Cell Scan OK (OK)
[2024-01-02] MEDS: SPIRONOLACTONE 25 MG TABLET PO SCH (09:02)
--- NOTE | 2024-01-02 11:11 | P.PN ---
Date of Service: 01/02/24 Subjective: Feeling a little better today no new / worsening problems improving with PT. 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 3.4L removed Patient undergoing weekly abdominal paracentesis. CXR (12/26): small-mod left pleural effusion with presumably underlying atelectasis Ammonia level mildly elevated-probably patient's baseline Continue lactulose and titrate to 2 loose bowel movements per day Continue rifaximin Continue PO Lasix BID Continue Aldactone; decreased 01/02 per nephro s/p therapeutic paracentesis today (01/01) ~3.5L removed Acute Cystitis - Klebsiella Pneumoniae Esbl, E. coli Esbl, MRSA Feels shes been having to urinate more frequently recently. but having difficulty recalling if shes had other / more symptoms past few days urine cx (12/26): multiple organisms including Klebsiella Pneumoniae Esbl, E. Coli Esbl, MRSA continue IV merrem (12/29-01/04) and vanc (12/30-01/06) continue merrem / vanc for 7 days total per ID Continue Bactroban nasal spray for 5 days total (12/31-01/04) afebrile, no leukocytosis ID following midline ordered 12/30 for IV antibiotics; s/p placement now pt following with liver/renal transplant team. Has Appointment scheduled ~January 07, 2024 Acute on chronic anemia / mod-severe Iron deficiency anemia hgb levels fluctuating throughout hospitalization. Patient has history of iron deficiency anemia. Iron studies this hospitalization consistent with mod-severe iron deficiency anemia no obvious bleeds seen on exam. Patient denies any bleeding hgb 7.5 -> 8.3 (01/02) hgb relatively stable Daily CBC CKD4 continue lasix Continue Aldactone; decreased 01/02 per nephro Nephrology consulted improving / stable Continue to monitor renal function Stage 2 sacral decubitus ulcer Pressure offloading measures. turn q2h Continue barrier cream BID Decreased mobility Psoriatic arthritis Working with PT. states she wants to get better and seems motivated ss/cm consulted. Approved for inpatient rehab 12/29. Continue PT NIDDM2 Insulin sliding scale Hypertension confirm home meds, restart as appropriate Hydralazine as needed for BP spikes. VTE: SCD Code: Full Dispo: pending IPR approval - see how she works with PT, otherwise stable medically
--- NOTE | 2024-01-02 11:55 | PN ---
Date of Progress Note: 01/02/2024 Subjective: The patient is seen in room 224 at [facility]. The patient is alert, able to answer some questions. Denies any headache, nausea, vomiting. She is accompanied by her ex- in the room. Objective: Vital Signs: The patient's blood pressure is stable. Last blood pressure is 119/51, bef ore that 139/62. Vitals are otherwise stable as well. Pulse is between 50 and 60 and respirations a round 14 on my exam. Pulse is about 60 and regular. O2 sats are 99% on room air. Lungs: Clear. Abdomen: Soft. Extremities: Reveal trace to no edema. Assessment And Plan: The patient with stage 4 kidney disease, history of chronic conditions includin g liver cirrhosis, recurrent ascites. The patient currently seems to be stable with a low hemoglobin with creatinine at about 1.8, which is somewhat of an improvement from the 2 which she was at. Magn esium is okay. Calcium on the lower side. We will go ahead and give patient ergocalciferol if alrea dy not on vitamin D. will need followup outpatient. Advised to follow up with primary claims collector. Patient states she will make an appointment. Acute issues are resolved and she has been discharged on maintenance diuretics and tolerating well. Her potassium level is good. Sodium level is reasona ble as well. /CASEY Voice ID: [id number] Report ID: [id number]
[2024-01-02] MEDS: DRISDOL (VITAMIN D=ERGOCALCIFEROL) 50000 UNIT CAP PO SCH (22:32)
[2024-01-03 09:03] LABS: Hematocrit 26.7 % (36.0-45.0); MCV 81.4 fL (80-100); MPV 9.5 fL (7.6-11.3); Platelets 63 thou/uL (152-406); RBC Red Blood Cell Count 3.28 M/uL (3.86-4.86)
[2024-01-03 09:17] LABS: Magnesium 2.2 mg/dL (1.6-2.4); Potassium 4.9 mEq/L (3.5-5.1)
--- NOTE | 2024-01-03 10:06 | P.PN ---
Date of Service: 01/03/24 Subjective: did some exercises out of bed / in chair and ambulated few feet yesterday since PT was unable to stop by yesterday Feeling a little better today doesn't feel anything is getting worse 4 loose BM reported yesterday throughout the day afebrile ROS: 10 point ROS as noted above, otherwise negative Physical Exam: GEN: Alert, oriented x3, fatigued appearing HEENT: Normal conjunctiva, sclera anicteric CV: Regular rate and rhythm, trace pedal edema Pulm: Nonlabored respirations on room air, diminished at left base ABD: Soft, nontender, nondistended, +ascites Skin: Stage 2 sacral decubitus ulcer Neuro: Normal speech, normal affect vitals reviewed Problem List: 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 3.4L removed Patient undergoing weekly abdominal paracentesis. CXR (12/26): small-mod left pleural effusion with presumably underlying atelectasis Ammonia level mildly elevated-probably patient's baseline Continue lactulose and titrate to 2 loose bowel movements per day Continue rifaximin Continue PO Lasix BID Continue Aldactone; decreased 01/02 per nephro s/p therapeutic paracentesis (01/01) ~3.5L removed Acute Cystitis - Klebsiella Pneumoniae Esbl, E. coli Esbl, MRSA on admission -Feels shes been having to urinate more frequently recently. but having difficulty recalling if shes had other / more symptoms past few days urine cx (12/26): multiple organisms including Klebsiella Pneumoniae Esbl, E. Coli Esbl, MRSA continue IV merrem (12/29-01/04) and vanc (12/30-01/06) continue merrem / vanc for 7 days total per ID Continue Bactroban nasal spray for 5 days total (12/31-01/04) afebrile, no leukocytosis ID following midline ordered 12/30 for IV antibiotics; s/p placement now pt following with liver/renal transplant team. Has Appointment scheduled ~January 07, 2024 Acute on chronic anemia / mod-severe Iron deficiency anemia hgb levels fluctuating throughout hospitalization. Patient has history of iron deficiency anemia. Iron studies this hospitalization consistent with mod-severe iron deficiency anemia no obvious bleeds seen on exam. Patient denies any bleeding hgb relatively stable last 24-48 hrs Daily CBC CKD4 continue lasix Continue Aldactone; decreased 01/02 per nephro Nephrology consulted stable Stage 2 sacral decubitus ulcer Pressure offloading measures. turn q2h Continue barrier cream BID Decreased mobility Psoriatic arthritis Working with PT. states she wants to get better and seems motivated ss/cm consulted. Approved for inpatient rehab 12/29. Continue PT NIDDM2 Insulin sliding scale Hypertension confirm home meds, restart as appropriate Hydralazine as needed for BP spikes. VTE: SCD Code: Full Dispo: pending IPR approval - see how she works with PT, otherwise stable medically ambulating in room short distances with nursing staff SBA
--- NOTE | 2024-01-03 11:50 | PN ---
Date of Progress Note: 01/03/2024 Subjective: The patient is seen in room 224 at [facility] in [place]. Th e patient is alert, awake, looking comfortable, similar to yesterday. Denies any headache, nausea, v omiting. Objective: Vital Signs: Stable. Lungs: Clear to auscultation. Abdomen: Soft. Extremities: Reveal no edema. Heart: Sounds are regular. Laboratory Data: Reviewed. Labs show WBC of 4.2, hemoglobin and hematocrit 8.5 and 26.7, which is s table, platelets stable at about 63, albumin 2.4, magnesium 2.2. Sodium 141, potassium 4.9, chloride 109, bicarb is 29, BUN and creatinine is 75 and 1.75, relatively stable compared to yesterday. Assessment And Plan: The patient with stage 4 kidney disease with chronic conditions, liver cirrhosi s, recurrent ascites, requiring paracentesis. The patient is currently doing well. Denies any nause a, vomiting, awaiting clearance from physical therapy and possible discharge once that is cleared. T he patient is looking stable from clinical point of view. We will need a followup with Nephrology fo r evaluation and treatment of her residual renal function going forward. /CASEY Voice ID: [id number] Report ID: [id number]
[2024-01-03 22:28] VITALS: O2SAT 98
[2024-01-04 07:26] LABS: Absolute Lymphocytes (CBC) 0.5 K/uL (0.7-4.9); Hematocrit 24.2 % (36.0-45.0); Lymphocytes % 12.7 % (15.3-44.8); MCV 80.8 fL (80-100); MPV 8.5 fL (7.6-11.3); Platelets 58 thou/uL (152-406)
[2024-01-04 07:40] LABS: Albumin 2.1 g/dL (3.4-5.0); Bilirubin Total 0.8 mg/dL (0.2-1.0); Magnesium 2.3 mg/dL (1.6-2.4); Potassium 4.8 mEq/L (3.5-5.1); Protein, Total 5.1 g/dL (6.4-8.2)
--- NOTE | 2024-01-04 08:53 | P.PN ---
Date of Service: 01/04/24 Chief Complaint: Confusion Subjective: In no apparent distress. Denies any new or worsening complaints at this time. Physical Examination Temp Pulse Resp BP Pulse Ox 97.8 F 63 20 133/66 99 01/04/24 04:00 01/04/24 04:00 01/04/24 04:00 01/04/24 04:00 01/04/24 04:00 General: In no apparent distress, Oriented x3 HEENT: Atraumatic. Normocephalic. Respiratory: Normal air movement, Diminished. On room air. Cardiovascular: Regular rate/rhythm. Trace BLE edema. Gastrointestinal: Normal bowel sounds. Nontender. Ascites. 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 On day 05/22 - MRSA: Continue Vancomycin x 7 days (12/30- 01/06). On day 03/22 -Monitor CBC and BMP - Pressure offloading measures. Turn patient q2h. Apply barrier cream to sacrum/buttocks BID. -Continue supportive care Case discussed with Ariadne Alvarado
[2024-01-04] MEDS: LACTOBACILLUS/ACIDOPHILUS TAB PO SCH (09:55)
--- NOTE | 2024-01-04 10:35 | P.PN ---
Date of Service: 01/04/24 Subjective: ambulated out of bed to chair / exercised with nurses past 2 days; slowly improving PT unable to see patient over the weekend -PT to reeval today no new / worsening problems afebrile ROS: 10 point ROS as noted above, otherwise negative Physical Exam: GEN: Alert, oriented x3, fatigued appearing HEENT: Normal conjunctiva, sclera anicteric CV: Regular rate and rhythm, trace pedal edema Pulm: Nonlabored respirations on room air, diminished at left base ABD: Soft, nontender, nondistended, +ascites Skin: Stage 2 sacral decubitus ulcer Neuro: Normal speech, normal affect vitals reviewed Problem List: 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 3.4L removed Patient undergoing weekly abdominal paracentesis. CXR (12/26): small-mod left pleural effusion with presumably underlying atelectasis Ammonia level mildly elevated-probably patient's baseline Continue lactulose and titrate to 2 loose bowel movements per day Continue rifaximin Continue PO Lasix BID Continue Aldactone; decreased 01/02 per nephro s/p therapeutic paracentesis (01/01) ~3.5L removed Acute Cystitis - Klebsiella Pneumoniae Esbl, E. coli Esbl, MRSA on admission -Feels shes been having to urinate more frequently recently. but having difficulty recalling if shes had other / more symptoms past few days urine cx (12/26): multiple organisms including Klebsiella Pneumoniae Esbl, E. Coli Esbl, MRSA continue IV merrem (12/29-01/04) and vanc (12/30-01/06) continue merrem / vanc for 7 days total per ID Continue Bactroban nasal spray for 5 days total (12/31-01/04) afebrile, no leukocytosis ID following midline ordered 12/30 for IV antibiotics; s/p placement now pt following with liver/renal transplant team. Has Appointment scheduled ~January 07, 2024 Acute on chronic anemia / mod-severe Iron deficiency anemia hgb levels fluctuating throughout hospitalization. Patient has history of iron deficiency anemia. Iron studies this hospitalization consistent with mod-severe iron deficiency anemia no obvious bleeds seen on exam. Patient denies any bleeding hgb relatively stable last 24-48 hrs Daily CBC CKD4 continue lasix Continue Aldactone; decreased 01/02 per nephro Nephrology consulted stable Stage 2 sacral decubitus ulcer Pressure offloading measures. turn q2h Continue barrier cream BID Decreased mobility Psoriatic arthritis Working with PT. states she wants to get better and seems motivated ss/cm consulted. Approved for inpatient rehab 12/29. Continue PT NIDDM2 Insulin sliding scale Hypertension confirm home meds, restart as appropriate Hydralazine as needed for BP spikes. VTE: SCD Code: Full Dispo: pending IPR approval - PT to reeval today, otherwise stable medically ambulating in room short distances with nursing staff SBA
--- NOTE | 2024-01-04 21:11 | P.PN ---
Date of Service: 01/04/24 Vital Signs Temp Pulse Resp BP Pulse Ox 97.4 F 60 17 119/40 L 99 01/04/24 20:00 01/04/24 20:00 01/04/24 20:00 01/04/24 20:00 01/04/24 20:00 Medications Atorvastatin Calcium (Atorvastatin 10 Mg Tab) 10 mg PO BEDTIME [facility] Last Admin: 01/04/24 20:44 Dose: 10 mg Ergocalciferol (Drisdol (Vitamin D=Ergocalciferol) 18484 Unit Cap) 50,000 unit PO ONCE [facility] Last Admin: 01/02/24 22:32 Dose: 50,000 unit Furosemide (Furosemide 40 Mg Tablet) 40 mg PO BIDL [facility] Last Admin: 01/04/24 16:56 Dose: 40 mg Glucagon (Glucagon 1 Mg/Vial) 1 mg IM 1X PRN PRN Reason: HYPOGLYCEMIA Home Med (Levocetirizine Dihydrochloride [Xyzal]) 5 mg PO DAILY [facility] Last Admin: 01/04/24 09:00 Dose: Not Given Hydralazine HCl (Hydralazine Hcl 20 Mg/Ml Vial) 10 mg IV Q6HP PRN PRN Reason: Goal to achieve SBP in comment Meropenem 1,000 mg/ Sodium (Chloride) 100 mls @ 200 mls/hr IV Q12HR [facility] Last Admin: 01/04/24 20:44 Dose: 100 mls Vancomycin HCl 1.5 gm/ Sodium (Chloride) 500 mls @ 333.333 mls/hr IVPB Q48H [facility] Last Admin: 01/03/24 11:03 Dose: 500 mls Insulin Human Regular (Insulin Regular (Human) 100 Unit/Ml) 0 unit SQ ACHS [facility]; Protocol Last Admin: 01/04/24 20:43 Dose: 2 unit Lactobacillus Acidoph/Bulgaricus (Lactobacillus/Acidophilus Tab) 1 tab PO DAILY [facility] Last Admin: 01/04/24 09:55 Dose: 1 tab Lactulose (Lactulose 20 Gm/30 Ml Ucup) 20 gm PO BID [facility] Last Admin: 01/04/24 20:45 Dose: Not Given Metoprolol Tartrate (Metoprolol Tar 50 Mg Tab) 100 mg PO BID [facility] Last Admin: 01/04/24 20:44 Dose: 100 mg Mupirocin (Mupirocin Nasal 2 Appl/1 Gm Tube) 1 appl DELLA BID [facility] Stop: 01/04/24 21:01 Last Admin: 01/04/24 20:44 Dose: 1 appl Ondansetron HCl (Ondansetron 4 Mg/2 Ml Vial) 4 mg IV Q6HP PRN PRN Reason: NAUSEA / VOMITING Pantoprazole Sodium (Pantoprazole 40mg Tablet) 40 mg PO DAILYAC [facility] Last Admin: 01/04/24 06:17 Dose: 40 mg Rifaximin (Rifaximin 550 Mg Tab) 550 mg PO BID [facility]; Protocol Last Admin: 01/04/24 20:45 Dose: 550 mg Spironolactone (Spironolactone 25 Mg Tablet) 25 mg PO DAILY [facility] Last Admin: 01/04/24 09:55 Dose: 25 mg Microbiology Results 12/26/23 21:11 Clean Catch Urine [place] Count - Final >100,000 CFU/ML. 12/26/23 21:11 Clean Catch Urine - Final Klebsiella Pneumoniae Esbl Escherichia Coli Esbl Meth Resistant Staph Aureus Assessment/ Plan: Nephrology No dyspnea No chest pain Feeling better No acute events overnight Vitals, medications, blood work and imaging reviewed in the chart General: In no apparent distress, Oriented x3, Cooperative HEENT: Atraumatic Neck: Supple Respiratory: Normal air movement Cardiovascular: No edema, Regular rate/rhythm Gastrointestinal: Non-distended, Tenderness Musculoskeletal: No clubbing, No contractures Integumentary: No rashes, No cyanosis Neurological: Normal speech Blood work reviewed in the chart. Imagings Data: EXAM DESCRIPTION: RAD - Chest Single View - 12/26/2023 8:32 pm CLINICAL HISTORY: ams COMPARISON: Chest Single View dated 12/04/2023; Chest Single View dated 08/29/2023; Chest Single View dated 05/15/2023; Chest Single View dated 02/14/2021 FINDINGS: Lines: None. Lungs: Likely atelectasis as a result of the effusion . Pleural: Small moderate left pleural effusion which is decreased in size . Cardiac: The heart size is within normal limits. Mediastinum: Within normal limits. Bones: No acute fractures. Other: None IMPRESSION: Small to moderate left pleural effusion and presumably underlying atelectasis which is decreased in size from prior . Conclusions/Impression: CKD IV -No NSAIDs HTN with CKD -Continue Metoprolol DM II -RISS Liver Cirrhoss with Ascites Hepatic Encephalopathy -Continue Lactulose -Paracentesis prn -Continue furosemide and spironolactone Hypoalbuminemia -Maintain nutrition Anemia in chronic illness Iron Deficiency 9.2% Thrombocytopenia -Monitor CBC -PRBC prn -Start IV iron Acute Klebsiella ESBL Cystitis -Continue Abx Hospitalist and ID notes reviewed
[2024-01-05 06:25] LABS: Absolute Lymphocytes (CBC) 0.6 K/uL (0.7-4.9); Hematocrit 21.7 % (36.0-45.0); Lymphocytes % 14.6 % (15.3-44.8); MCV 80.1 fL (80-100); MPV 8.9 fL (7.6-11.3); Platelets 53 thou/uL (152-406); RBC Red Blood Cell Count 2.71 M/uL (3.86-4.86)
[2024-01-05 06:43] LABS: Magnesium 2.3 mg/dL (1.6-2.4); Potassium 5.2 mEq/L (3.5-5.1)
[2024-01-05 07:55] LABS: Anisocytosis 1+; Blood Morphology Comment NOTED (NOT SEEN); Platelet Estimate DECR; Toxic Granulation 1+; White Blood Cell Scan OK (OK)
[2024-01-05] MEDS ORDERED: SUCROSE IV SCH (09:00)
[2024-01-05] MEDS ORDERED: NA CHLORIDE 0.9% IV SCH (09:00)
[2024-01-05] MEDS ORDERED: SOD FERRIC GLUC COMPLX IV SCH (09:00)
--- NOTE | 2024-01-05 09:15 | P.PN ---
Date of Service: 01/05/24 Chief Complaint: Confusion Subjective: In no apparent distress. No acute events overnight. Denies any new or worsening complaints. Pending inpatient rehab. Physical Examination Temp Pulse Resp BP Pulse Ox 97.5 F 61 17 125/48 L 98 01/05/24 04:00 01/05/24 04:00 01/05/24 04:00 01/05/24 04:00 01/05/24 04:00 General: In no apparent distress, Oriented x3 HEENT: Atraumatic. Normocephalic. Respiratory: Normal air movement, Diminished. On room air. Cardiovascular: Regular rate/rhythm. Trace BLE edema. Gastrointestinal: Normal bowel sounds. Nontender. Ascites. 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 Pleural effusion Acute cystitis Diabetes mellitus type 2 Chronic kidney disease stage IV Hypertension Thrombocytopenia Anemia of chronic disease Acute cystitis -Urine cultures 12/26: Klebsiella pneumonia ESBL -*update 12/30 urine culture= Klebsiella pneumoniae ESBL, Escherichia coli ES BL, and Methicillin-Resistant Staphylococcus aureus (MRSA) - On meropenem (started 12/29) - On Vancomycin (started 12/30) Afebrile MRSA: Completed 5 days bactroban nasal ointment Recommendations -acute cystitis - ESBL: On day 05/22 Meropenem. Discontinue after today's dose. - MRSA: Continue Vancomycin IV x 7 days (12/30- 01/06). On day 67 -Monitor CBC and BMP - Pressure offloading measures. Turn patient q2h. Apply barrier cream to sacrum/buttocks BID. -Continue supportive care Case discussed with Ariadne Alvarado
[2024-01-05] MEDS: SOD FERRIC GLUC COMPLX/SUCROSE 250 MG in NA CHLORIDE 0.9% 250 ML IV SCH (09:27)
[2024-01-05] MEDS ORDERED: NA CHLORIDE 0.9% 250 ML IV SCH (10:00)
--- NOTE | 2024-01-05 15:19 | P.PN ---
Subjective Date of Service: 01/05/24 Chief Complaint: Confusion Patient is awake and alert. She is complaining of pain in her arms. She has been tolerating her meals. Physical Examination - Vital Signs Temperature: 98.2 F Blood Pressure: 140/67 Pulse: 62 Respirations: 16 Pulse Ox (%): 99 Assessment And Plan - Plan Physical Exam General: Alert, Oriented x3, Cooperative HEENT: Mucous membrane. anicteric sclera. Neck: Supple, JVD not distended Respiratory: Clear to auscultation bilaterally Cardiovascular: No edema, Regular rate/rhythm Gastrointestinal: Normal bowel sounds, Soft and benign. 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 CXR (12/26): small-mod left pleural effusion with presumably underlying atelectasis Continue lactulose Continue rifaximin Continue PO Lasix BID Continue Aldactone; decreased 01/02 per nephro Acute Cystitis - Klebsiella Pneumoniae Esbl, E. coli Esbl, MRSA on admission -Feels shes been having to urinate more frequently recently. but having difficulty recalling if shes had other / more symptoms past few days urine cx (12/26): multiple organisms including Klebsiella Pneumoniae Esbl, E. Coli Esbl, MRSA continue IV merrem (12/29-01/04) and vanc (12/30-01/06) continue merrem / vanc for 7 days total per ID Continue Bactroban nasal spray for 5 days total (12/31-01/04) afebrile, no leukocytosis ID following midline ordered 12/30 for IV antibiotics. Patient to finish antibiotics tomorrow. She has been accepted to inpatient rehab. Pt following with liver/renal transplant team. Has Appointment scheduled for January 07, 2024 Acute on chronic anemia / mod-severe Iron deficiency anemia hgb levels fluctuating throughout hospitalization. Patient has history of iron deficiency anemia. Iron studies this hospitalization consistent with mod-severe iron deficiency anemia no obvious bleeds seen on exam. Patient denies any bleeding hgb relatively stable. Patient currently receiving IV iron. Daily CBC CKD4 continue lasix Continue Aldactone; dose decreased 01/02 per nephro Nephrology is following. stable Stage 2 sacral decubitus ulcer Pressure offloading measures. turn q2h Continue barrier cream BID Decreased mobility Psoriatic arthritis Continue PT Patient has been accepted to inpatient rehab NIDDM2 Insulin sliding scale Hypertension confirm home meds. Hydralazine as needed for BP spikes. VTE: SCD Code: Full Dispo: Inpatient rehab in a.m.
[2024-01-05] MEDS: HYDROCODONE/APAP 7.5/325 MG TAB PO PRN (15:59)
--- NOTE | 2024-01-05 16:19 | RAD REPORT ---
EXAM DESCRIPTION: US - UPPER EXTREMITY VENOUS UNILATE - 01/05/2024 3:51 pm CLINICAL HISTORY: left arm swelling. COMPARISON: None. FINDINGS: Left internal jugular vein, left subclavian vein, left axillary vein, left brachial vein, left cephalic, left basilic, left ulnar and left radial veins demonstrate phasic signal. The veins are compressible. Doppler demonstrates good flow. Grayscale, color and spectral analysis performed on all vessels IMPRESSION: No sonographic evidence of thrombus involving the left upper extremity veins.
--- NOTE | 2024-01-05 19:28 | P.PN ---
Date of Service: 01/05/24 Vital Signs Temp Pulse Resp BP Pulse Ox 98.3 F 62 20 148/63 H 99 01/05/24 16:00 01/05/24 18:06 01/05/24 16:00 01/05/24 18:06 01/05/24 16:00 Medications Hydrocodone Bitart/Acetaminophen (Hydrocodone/Apap 7.5/325 Mg Tab) 1 tab PO Q6H PRN PRN Reason: Pain scale 5-7 (Moderate) Last Admin: 01/05/24 15:59 Dose: 1 tab Atorvastatin Calcium (Atorvastatin 10 Mg Tab) 10 mg PO BEDTIME [facility] Last Admin: 01/04/24 20:44 Dose: 10 mg Furosemide (Furosemide 40 Mg Tablet) 40 mg PO BIDL [facility] Last Admin: 01/05/24 18:06 Dose: 40 mg Glucagon (Glucagon 1 Mg/Vial) 1 mg IM 1X PRN PRN Reason: HYPOGLYCEMIA Home Med (Levocetirizine Dihydrochloride [Xyzal]) 5 mg PO DAILY [facility] Last Admin: 01/05/24 09:00 Dose: Not Given Hydralazine HCl (Hydralazine Hcl 20 Mg/Ml Vial) 10 mg IV Q6HP PRN PRN Reason: Goal to achieve SBP in comment Ferric Sodium Gluconate Complex 250 mg/ Sodium Chloride 270 mls @ 67.5 mls/hr IV Q24H [facility] Stop: 01/08/24 12:59 Last Admin: 01/05/24 09:27 Dose: 270 mls Sodium Chloride (Sodium Chloride) 250 mls @ 0 mls/hr IV .Q0M [facility] Vancomycin HCl 1.5 gm/ Sodium (Chloride) 500 mls @ 250 mls/hr IVPB 1X ONE Stop: 01/06/24 16:59 Insulin Human Regular (Insulin Regular (Human) 100 Unit/Ml) 0 unit SQ ACHS [facility]; Protocol Last Admin: 01/05/24 16:52 Dose: 4 unit Lactobacillus Acidoph/Bulgaricus (Lactobacillus/Acidophilus Tab) 1 tab PO DAILY [facility] Last Admin: 01/05/24 09:00 Dose: 1 tab Lactulose (Lactulose 20 Gm/30 Ml Ucup) 20 gm PO BID [facility] Last Admin: 01/05/24 10:06 Dose: 20 gm Metoprolol Tartrate (Metoprolol Tar 50 Mg Tab) 100 mg PO BID [facility] Last Admin: 01/05/24 09:00 Dose: Not Given Ondansetron HCl (Ondansetron 4 Mg/2 Ml Vial) 4 mg IV Q6HP PRN PRN Reason: NAUSEA / VOMITING Pantoprazole Sodium (Pantoprazole 40mg Tablet) 40 mg PO DAILYAC [facility] Last Admin: 01/05/24 05:49 Dose: 40 mg Rifaximin (Rifaximin 550 Mg Tab) 550 mg PO BID [facility]; Protocol Last Admin: 01/05/24 09:00 Dose: 550 mg Spironolactone (Spironolactone 25 Mg Tablet) 25 mg PO DAILY [facility] Last Admin: 01/05/24 09:00 Dose: Not Given Microbiology Results 12/26/23 21:11 Clean Catch Urine [place] Count - Final >100,000 CFU/ML. 12/26/23 21:11 Clean Catch Urine - Final Klebsiella Pneumoniae Esbl Escherichia Coli Esbl Meth Resistant Staph Aureus Assessment/ Plan: Nephrology No dyspnea No chest pain Doing well No acute events overnight Vitals, medications, blood work and imaging reviewed in the chart General: In no apparent distress, Oriented x3, Cooperative HEENT: Atraumatic Neck: Supple Respiratory: Normal air movement Cardiovascular: No edema, Regular rate/rhythm Gastrointestinal: Non-distended, Tenderness Musculoskeletal: No clubbing, No contractures Integumentary: No rashes, No cyanosis Neurological: Normal speech Blood work reviewed in the chart. Imagings Data: EXAM DESCRIPTION: RAD - Chest Single View - 12/26/2023 8:32 pm CLINICAL HISTORY: ams COMPARISON: Chest Single View dated 12/04/2023; Chest Single View dated 08/29/2023; Chest Single View dated 05/15/2023; Chest Single View dated 02/14/2021 FINDINGS: Lines: None. Lungs: Likely atelectasis as a result of the effusion . Pleural: Small moderate left pleural effusion which is decreased in size . Cardiac: The heart size is within normal limits. Mediastinum: Within normal limits. Bones: No acute fractures. Other: None IMPRESSION: Small to moderate left pleural effusion and presumably underlying atelectasis which is decreased in size from prior . Conclusions/Impression: CKD IV -No NSAIDs Hyperkalemia -Lokelma prn HTN with CKD -Continue Metoprolol DM II -RISS Liver Cirrhoss with Ascites Hepatic Encephalopathy -Continue Lactulose -Paracentesis prn -Continue furosemide and spironolactone Hypoalbuminemia -Maintain nutrition Anemia in chronic illness Iron Deficiency 9.2% Thrombocytopenia -Monitor CBC -PRBC prn -Continue IV iron Acute Klebsiella ESBL Cystitis -Continue Abx Hospitalist and ID notes reviewed
[2024-01-05 20:47] VITALS: BP 135/59
[2024-01-05 21:29] VITALS: TEMP 97.3
[2024-01-06] MEDS ORDERED: VANCOMYCIN 1.5 GM in NA CHLORIDE 0.9% 500 ML IVPB ONE (15:00)
== END 2024-01-06 00:10 | DRG 442 ==
LOC: ER 18:49 → ERHOLD 23:15 → 2ND 23:57 → OBSVTOIN 12-28 15:49
PROVIDERS: ADMIT Internal Medicine; ATTEND Internal Medicine
PROC: 0W9G3ZZ Drainage of Peritoneal Cavity, Percutaneous Approach (ICD-10-PCS; principal; 2024-01-01)
DX: K76.82 Hepatic encephalopathy (principal); N18.4 Chronic kidney disease, stage 4 (severe); R18.8 Other ascites; Z16.12 Extended spectrum beta lactamase (ESBL) resistance; N30.00 Acute cystitis without hematuria; I12.9 Hypertensive chronic kidney disease with stage 1 through stage 4 chronic kidney disease, or unspecified chronic kidney disease; E11.22 Type 2 diabetes mellitus with diabetic chronic kidney disease; D63.1 Anemia in chronic kidney disease; K75.81 Nonalcoholic steatohepatitis (NASH); K74.60 Unspecified cirrhosis of liver; E87.5 Hyperkalemia; L40.50 Arthropathic psoriasis, unspecified; D50.9 Iron deficiency anemia, unspecified; D69.6 Thrombocytopenia, unspecified; E88.09 Other disorders of plasma-protein metabolism, not elsewhere classified; L89.312 Pressure ulcer of right buttock, stage 2; J44.9 Chronic obstructive pulmonary disease, unspecified; B95.62 Methicillin resistant Staphylococcus aureus infection as the cause of diseases classified elsewhere; B96.1 Klebsiella pneumoniae [K. pneumoniae] as the cause of diseases classified elsewhere; Z76.82 Awaiting organ transplant status; Z90.13 Acquired absence of bilateral breasts and nipples; Z90.710 Acquired absence of both cervix and uterus; Z79.899 Other long term (current) drug therapy
CPT/HCPCS: 36415; 36430; 49083; 71045; 80048; 80053; 80076; 80202; 81001; 82140; 82947; 83540; 83735; 84466; 85014; 85018; 85025; 85027; 85610; 86850; 86900; 86901; 86920; 87077; 87086; 87088; 87186; 93971; 97110; 97116; 97161; 97530; 99285; G0378; J1815; J2185; J2916; J7040; J7050; P9016; P9047

== ENCOUNTER 2024-01-22 07:37 | Day surgery (SDC) | payer OTHER, BC ==
[2024-01-22] MEDS: LOPERAMIDE HCL 2 MG CAPSULE PO ONE (08:08)
[2024-01-22 09:07] VITALS: BMI 26.1
--- NOTE | 2024-01-22 10:47 | RAD REPORT ---
EXAM DESCRIPTION: US - Paracentesis Proc Guidance - 01/22/2024 10:39 am CLINICAL HISTORY: ASCITES Ascites COMPARISON: Paracentesis Proc Guidance dated 01/15/2024 FINDINGS: Informed consent was obtained and time-out was performed. Patient's abdomen was prepped and draped in the usual sterile fashion. 1% lidocaine was used for loca l anesthetic purposes. A small skin incision was made right lower quadrant. A paracentesis catheter was guided into the ricky caryn cavity under sonographic guidance. A small amount of fluid was sent for requested lab studies. A large volume paracentesis was performed . The patient tolerated the procedure well. Patient was administered IV albumin per protocol following the procedure. IMPRESSION: Successful ultrasound-guided paracentesis.
[2024-01-22] MEDS: ALBUMIN HUMAN 25% 200 ML IV ONE (10:53)
[2024-01-22 11:59] VITALS: BP 105/50; TEMP 98; O2SAT 100
[2024-01-22 13:22] LABS: Appearance CLEAR (CLEAR); Body Fluid Source PERITONEAL; Body Fluid WBC 30 /mm^3; Color of fluid Yellow (COLORLESS)
[2024-01-22 13:32] LABS: Body Fluid Lymphocytes 0 %
== END 2024-01-22 12:09 | disposition home or self-care (01) ==
LOC: DS 07:37
PROVIDERS: ATTEND Legal Medicine
DX: R18.8 Other ascites (principal)
CPT/HCPCS: 87070; 36415; 89050; 84157; 96365; 49083; P9047

== ENCOUNTER 2024-01-29 07:12 | Day surgery (SDC) | payer OTHER, BC ==
[2024-01-29 08:32] VITALS: O2SAT 99; BMI 25.7
--- NOTE | 2024-01-29 09:24 | RAD REPORT ---
EXAM DESCRIPTION: US - Abdomen Exam Limited - 01/29/2024 9:13 am CLINICAL HISTORY: Liver disease with ascites COMPARISON: January 22, 2024 FINDINGS: A small amount of ascites is present within the abdomen and pelvis. IMPRESSION: Small amount of ascites. The paracentesis was not performed. The patient is scheduled for a paracentesis February 05, 2024
[2024-01-29 11:02] VITALS: BP 111/40; TEMP 97.3
== END 2024-01-29 10:17 | disposition home or self-care (01) ==
LOC: DS 07:12
PROVIDERS: ATTEND Legal Medicine
DX: R18.8 Other ascites (principal); Z53.8 Procedure and treatment not carried out for other reasons
CPT/HCPCS: 76705

== ENCOUNTER 2024-02-05 07:42 | Day surgery (SDC) | payer OTHER, BC ==
[2024-02-05 12:29] VITALS: BP 140/44; TEMP 97.3; O2SAT 100; BMI 25.7
== END 2024-02-05 09:40 | disposition home or self-care (01) ==
LOC: DS 07:42
PROVIDERS: ATTEND Legal Medicine
DX: R18.8 Other ascites (principal); Z53.8 Procedure and treatment not carried out for other reasons

== ENCOUNTER → 2024-02-05 | Emergency (ER) | payer OTHER, BC ==
[~2024-02-05] MED LIST changes: -ALBUMIN HUMAN 25% 200 ML IV ONE; -ALBUMIN HUMAN 25% 50 ML IV ONE; +CEFTRIAXONE 1000 MG/VIAL ONE; +FAMOTIDINE 20 MG/2 ML VIAL IV ONE; +LACTULOSE 20 GM/30 ML UCUP ONE; +NA CHLORIDE 0.9% 1,000 ML ONE; +NA CHLORIDE 0.9% 250 ML ONE; +PANTOPRAZOLE 40 MG INJ ONE; +VITAMIN K (ADULT) 10 MG/ML ONE
[2024-02-05 11:04] LABS: Absolute Lymphocytes (CBC) 0.4 K/uL (0.7-4.9); Absolute Monocytes 0.3 K/uL (0.1-1.3); Absolute Neutrophil 3.8 K/uL (1.8-8.0); Basophils % 0.4 % (0-1.3); Eosinophils % 0.4 % (0-4.4); Hematocrit 19.9 % (36.0-45.0); Hemoglobin 6.2 g/dL (12.0-15.0); Lymphocytes % 9.6 % (15.3-44.8); MCH 28.4 pg (27.0-35.0); MCHC 31.5 g/dL (32.0-36.0); MCV 90.2 fL (80-100); MPV 8.5 fL (7.6-11.3); Monocytes % 6.6 % (3.3-12.3); Platelets 97 thou/uL (152-406); Red Cell Distribution Width 19.4 % (12.1-15.2)
[2024-02-05 11:08] LABS: Protime INR 1.38
[2024-02-05 11:11] LABS: Specific Gravity 1.012 (1.005-1.030); Sqamous Epithelial <5 /HPF (None Seen); Urine Bacteria 20-50 /HPF (<20); Urine Bilirubin NEGATIVE (Negative); Urine Blood Negative (Negative); Urine Clarity Extremely Turbid (Clear); Urine Color Light-Yellow (Yellow); Urine Culture Reflex Order REFLEXED; Urine Glucose NEGATIVE (Negative); Urine Ketones NEGATIVE (Negative); Urine Microscopic Reflex YN ORDER UMIC; Urine Mucus Slight /HPF (None Seen); Urine Nitrite NEGATIVE (Negative); Urine Protein NEGATIVE (Negative); Urine RBC <5 /HPF (None Seen); Urine Urobilinogen Normal (Normal); Urine WBC >50 /HPF (<5); Urine WBC Clump Occasional /HPF (None Seen)
[2024-02-05 11:27] LABS: Albumin 2.7 g/dL (3.4-5.0); Albumin/Globulin Ratio 0.9 (1.1-1.8); Anion Gap 12.9 mEq/L (5.0-15.0); Bilirubin Direct 0.5 mg/dL (0-0.2); Bilirubin Indirect, Calculated 0.8 mg/dL (0.2-0.8); Bilirubin Total 1.3 mg/dL (0.2-1.0); Globulin 2.9 g/dL (2.3-3.5); Magnesium 2.8 mg/dL (1.6-2.4); Potassium 4.9 mEq/L (3.5-5.1); Protein, Total 5.6 g/dL (6.4-8.2); Troponin High Sensitivity 23.6 pg/mL (<58.9)
--- NOTE | 2024-02-05 12:13 | RAD REPORT ---
EXAM DESCRIPTION: Ella Single View02/05/2024 11:09 am CLINICAL HISTORY: Shortness of breath COMPARISON: Chest x-rays 2022 and 2023 FINDINGS: Overall no significant change in the size of a moderate left pleural effusion with mild ba silar atelectasis Remainder lungs appear clear. Heart is normal size
[2024-02-05 12:41] LABS: Platelet Estimate DECR; White Blood Cell Scan OK (OK)
[2024-02-05 12:42] LABS: Blood Morphology Comment NOT SEEN (NOT SEEN)
--- NOTE | 2024-02-05 12:46 | RAD REPORT ---
EXAM DESCRIPTION: CT - Head C Spine Cap Wo Con - 02/05/2024 12:35 pm CLINICAL HISTORY: Trauma, head and neck injury. Chest, abdomen and pelvis pain. MENTAL STATUS CHANGE COMPARISON: <Comparisons> TECHNIQUE: CT head without contrast. CT cervical spine without contrast with coronal and sagittal reformatted images. CT chest, abdomen and pelvis without contrast with coronal and sagittal reformatted images of the [facility]. All CT scans are performed using dose optimization technique as appropriate and may include automated exposure control or mA/KV adjustment according to patient size. FINDINGS: CT HEAD WITHOUT CONTRAST: No intracranial hemorrhage, hydrocephalus or extra-axial fluid collection. Moderate generalized brain atrophy is present with advanced periventricular and deep white matter chronic microvascular ischemi c changes. No areas of brain edema or midline shift. Mild mucosal thickening seen right maxillary and posterior right ethmoid air cell. The paranasal sinu ses and mastoids are otherwise clear. The calvarium is intact. CT CERVICAL SPINE WITHOUT CONTRAST: No fracture or subluxation. [id number] lower cervical degenerative changes. Mild levoscoliosis. The prevertebral soft tissues are normal in thickness. CT CHEST, ABDOMEN, PELVIS WITHOUT CONTRAST: NOTE: Lack of contrast is a significant limitation in the assessment of trauma related findings. Spec ifically, solid organ, vascular and bowel evaluation is significantly limited. Moderate left pleural effusion.No pneumothorax. Mild atelectasis left lung base. The right lung appea rs clear. Advanced cirrhosis of the liver seen with mild splenomegaly. Moderate ascites. Sigmoid diverticulosis coli without diverticulitis. Portal venous hypertension noted. Mild lower lumbar degenerative changes. IMPRESSION: Moderate left pleural effusion. Moderate ascites. Advanced liver cirrhosis.
--- NOTE | 2024-02-05 13:51 | ER ---
Nurse's Notes [facility] Name: Rena Burch Age: 73 yrs Sex: Female : 1950 Arrival Date: 02/05/2024 Time: 09:57 Bed 15 Private MD: Diagnosis: UTI/ Urinary tract infection, site not specified;Altered mental status, unspecified;Anemia in chronic kidney disease;Anemia, unspecified;Encephalopathy, unspecified-HEPATIC;Pleural effusion in other conditions classified elsewhere-LARGE LEFT Presentation: 02/04 09:58 Chief complaint: Patient arrived from day surgery, was here for a regular scheduled ko1 paracentesis which she has frequently, according to day surgery nurse the patient is altered, doesn't know who they are or where she is. This is new for her, last known normal is not known. Coronavirus screen: At this time, the client does not indicate any symptoms associated with coronavirus-19. Ebola Screen: No symptoms or risks identified at this time. Initial Sepsis Screen: Does the patient meet any 2 criteria? No. Patient's initial sepsis screen is negative. Does the patient have a suspected source of infection? No. Patient's initial sepsis screen is negative. Risk Assessment: Do you want to hurt yourself or someone else? Patient reports no desire to harm self or others. Onset of symptoms is unknown. Care prior to arrival: None. Transition of care:. 09:58 Method Of Arrival: Stretcher ko1 09:58 Acuity: CHEIKH 3 ko1 Triage Assessment: 10:01 General: Appears in no apparent distress. Behavior is calm, cooperative, appropriate ko1 for age. Pain: Denies pain. Historical: - Allergies: 10:01 No Known Allergies; ko1 - Home Meds: 10:01 Unable to obtain [Active]; ko1 - PMHx: 10:01 COPD; Diabetes - IDDM; fatty liver; Hypertension; Liver failure (currently on liver ko1 transplant list); Paracentesis; Psoriatic Arthritis; - PSHx: 10:01 Unable to Obtain; ko1 - Immunization history:: Adult Immunizations unknown. - Social history:: Smoking status: unknown. Screenin:05 [facility] ED Fall Risk Assessment (Adult) History of falling in the last 3 months, ko1 including since admission No falls in past 3 months (0 pts) Confusion or Disorientation Yes (5 pts) Intoxicated or Sedated No (0 pts) Impaired Gait Yes (1 pt) Mobility Assist Device Used Yes (1 pt) Altered Elimination Yes (1 pt) Score/Fall Risk Level 3 or more points = High Risk Oriented to surroundings, Maintained a safe environment, Educated pt \T\ family on fall prevention, incl call for assistance when getting out of bed, Assessed \T\ reinforced patient's understanding of fall precautions, Provided non-skid footwear, Hourly rounding (assess needs \T\ fall precautionary measures) done, Used ambulatory aids as needed (educated on \T\ assisted with), Used gait belt as appropriate Implemented a Fall Risk Plan of Care, Apply high fall risk patient identification: yellow non skid footwear/ fall signage, Remained w/in arm's length of patient and in sight while toileting, Offered frequent toileting (1:1 observation), Remained with patient while ambulating, Utilized family, sitter, or virtual ski guide as indicated. Abuse screen: Denies threats or abuse. Denies injuries from another. Nutritional screening: No deficits noted. Tuberculosis screening: No symptoms or risk factors identified. Assessment: 10:05 General: Appears in no apparent distress. comfortable, Behavior is calm, cooperative, ko1 appropriate for age. Pain: Denies pain. Neuro: Oriented to person. Cardiovascular: No deficits noted. Respiratory: No deficits noted. GI: Abdomen is noted to have ascites. : No deficits noted. EENT: No deficits noted. Derm: No deficits noted. Musculoskeletal: Swelling present in right leg and left leg. 12:05 General: Appears in no apparent distress. comfortable, Behavior is calm, cooperative, me1 appropriate for age. Pain: Denies pain. Neuro: Level of Consciousness is awake, alert, confused, Oriented to person, situation. Cardiovascular: No deficits noted. Respiratory: No deficits noted. Respiratory effort is even, unlabored, Respiratory pattern is regular, symmetrical. GI: Abdomen is noted to have ascites. : No deficits noted. EENT: No deficits noted. Derm: No deficits noted. Musculoskeletal: Swelling present in left leg and right leg. Vital Signs: 09:58 BP 133 / 46; Pulse 78; Resp 15; Temp 98; Pulse Ox 100% on R/A; ko1 10:12 BP 120 / 42; Pulse 78; Resp 15; Pulse Ox 100% on R/A; ko1 11:44 BP 134 / 54; Pulse 74; Resp 16; Pulse Ox 99% ; ko1 14:10 BP 124 / 56; Pulse 74; Resp 16; Pulse Ox 100% on R/A; me1 15:15 BP 120 / 49; Pulse 81; Resp 16; Temp 97.8(A); Pulse Ox 100% ; me1 16:00 BP 142 / 50; Pulse 80; Resp 16; Pulse Ox 100% on R/A; me1 NIH Stroke Scale Scores: 13:46 NIHSS Score: 0 [place] ED Course: :58 Patient arrived in ED. ko1 09:58 Miracle Childs, RN is Primary Nurse. ko1 09:59 Denny Weber MD is Attending Physician. [place] 10:01 Triage completed. ko1 10:01 Arm band placed on left wrist. Patient placed in an exam room, on a stretcher, on ko1 qa lead, on pulse oximetry, Patient notified of wait time. 10:05 Patient has correct armband on for positive identification. Fall risk band placed. ko1 Placed in gown. Bed in low position. Call light in reach. Side rails up X2. Client placed on continuous cardiac and pulse oximetry monitoring. NIBP monitoring applied. chemical packager on. Door closed. Noise minimized. Warm blanket given. Pillow given. 11:00 Initial lab(s) drawn, by nj, sent to lab. First set of blood cultures drawn by ED ko1 staff, Urine collected: straight cath specimen, clear, Amount Returned: 500mL EKG done, by ED staff, reviewed by Denny Weber MD. Inserted saline lock: 22 gauge in right hand, using aseptic technique. Blood collected. 11:05 Urinalysis w/ reflexes Sent. ko1 11:05 AMMONIA Sent. ko1 11:05 Blood Culture Adult (2) Sent. ko1 11:05 Lactate w/ 2H reflex if indic. Sent. ko1 11:05 Basic Metabolic Panel Sent. ko1 11:05 CBC with Diff Sent. ko1 11:05 LFT's Sent. ko1 11:05 Magnesium Sent. ko1 11:05 NT PRO-BNP Sent. ko1 11:05 PT-INR Sent. ko1 11:05 Troponin HS Sent. ko1 11:10 XRAY Chest (1 view) In Process Unspecified. EDMS 11:46 Provided Education on: na. Repositioned patient. ko1 12:05 Client placed on continuous cardiac and pulse oximetry monitoring. NIBP monitoring me1 applied. chemical packager on. Pulse ox on. NIBP on. 12:05 No provider procedures requiring assistance completed. me1 12:37 CT Traumagram (Head C Spine CAP wo con) In Process Unspecified. EDMS 12:41 T\T\S collected, blood band applied to patient. me1 13:06 Bb Add On Sent. me1 13:[address] Weber with [facility] at the eb request of the patient. 14:53 connected the hospitalist concrete analyst for [facility] with Dr. Weber for patient transfer eb consultation. 14:[address] to Dr. Weber by [facility] Garza Rn/ patient has been eb accepted to [address] room 415/Dr. Matt Hunter has accepted the patient in transfer/ report to be called to [phone]/. 15:00 Warm blanket given. Cleaned of incontinence. Linen changed. me1 15:06 [facility] called for transport [facility] currently for any transfers. eb 16:50 Patient transferred, IV remains in place. me1 Administered Medications: 11:32 Drug: NS 0.9% IV 1000 ml IV at 75 ml/hr continuous Route: IV; Rate: 75 ml/hr; Site: [address]; 16:29 Follow up: Response: No adverse reaction; IV Status: Completed infusion me1 11:32 Drug: Famotidine IVP 20 mg IVP once; dilute with 10 mL 0.9% NaCl; give over 2 minutes ko1 Route: IVP; Site: right hand; 11:52 Follow up: Response: No adverse reaction ko1 11:33 Drug: Rocephin IV 1 grams IV at per protocol once; Given slow IV push per pharmacy ko1 instructions Route: IV; Rate: per protocol; Site: right hand; 11:52 Follow up: Response: No adverse reaction; IV Status: Completed infusion; IV Intake: ko1 100ml 13:06 Drug: Lactulose PO 60 grams 45 ml PO once Volume: 45 ml; Route: PO; me1 13:16 Follow up: Response: No adverse reaction me1 13:15 Drug: Pantoprazole IVP 40 mg IVP once Route: IVP; Site: right hand; me1 13:16 Follow up: Response: No adverse reaction me1 13:15 Drug: Phytonadione Sub-Q 10 mg Sub-Q once Route: Sub-Q; Site: abdomen; me1 16:27 Follow up: Response: No adverse reaction me1 Medication: 11:46 VIS not applicable for this client. ko1 Intake: 11:52 IV: 100ml; Total: 100ml. ko1 Outcome: 13:51 ER care complete, transfer ordered by . [place] 16:48 Transferred by ground EMS to [facility], Transfer form completed. Note: me1 Report given to LAINA Perdomo 16:48 Condition: stable 17:00 Patient left the ED. nj1 17:12 Instructed on the need for transfer, nj1 NIH Stroke Scale - NIH Stroke Score Date: 02/05/2024 Time: 13:46 Total Score = 0 10. Dysarthria (speech clarity - read or repeat words) - 0(Normal) 11. Extinction and Inattention (visual/tactile/auditory/spatial/personal) - 0(No abnormality) 1a. Level of Consciousness (LOC) - 0(Alert) 1b. Level of Consciousness (LOC) (Month \T\ Age) - 0(Both) 1c. LOC Commands (Open \T\ Closes Eyes/Candle Maker) - 0(Both) 2. Best Gaze (Lateral Gaze Paresis) - 0(Normal) 3. Visual Field Loss - 0(No visual loss) 4. Facial Palsy - 0(Normal) 5a. Left Arm: Motor (10-second hold) - 0(No drift) 5b. Right Arm: Motor (10-second hold) - 0(No drift) 6a. Left Leg: Motor (5-second hold - always test supine) - 0(No drift) 6b. Right Leg: Motor (5-second hold - always test supine) - 0(No drift) 7. Limb Ataxia (finger/nose \T\ heel/forrester - test with eyes open) - 0(Absent) 8. Sensory Loss (pinprick arms/legs/face) - 0(Normal) 9. Best Language: Aphasia (description/naming/reading) - 0(No aphasia) Initials: [place] Signatures: Dispatcher [employer] EDDenny Jaimes MD MD cha Botello, Elizabeth eb Oliver Miracle, RN RN ko1 Seble Ware, RN RN me1 Corrections: (The following items were deleted from the chart) 13:23 13:06 Antibody Screen drawn and sent. nj1 EDMS 13:23 13:06 ABO/RH typing drawn and sent. [facility] EDMS 14:56 13:[address] Weber with the [facility]. eb eb 17:12 16:48 Transferred by ground EMS to [facility], Transfer form me1 completed. Note: Report given to [facility]
--- NOTE | 2024-02-05 13:51 | EDPHYS ---
Physician Documentation [facility] Name: Rena Burch Age: 73 yrs Sex: Female : 1950 Arrival Date: 02/05/2024 Time: 09:57 Bed 15 Private MD: ED Physician Denny Weber HPI: 02/04 13:30 This 73 yrs old Female presents to ER via Stretcher with complaints of eliazar Altered Mental Status. 13:30 The patient presents with confusion, decreased mental status. Onset: The eliazar symptoms/episode began/occurred 2 day(s) ago. Possible causes: sepsis, the patient has a known UTI history. Associated signs and symptoms: Pertinent positives: confusion. Current symptoms: In the emergency department the patient's symptoms have improved, mildly. Patient's baseline: Neuro: alert and fully oriented. The patient has experienced similar episodes in the past, multiple times. Historical: - Allergies: 10: No Known Allergies; ko1 - Home Meds: : Unable to obtain [Active]; ko1 - PMHx: 10: COPD; Diabetes - IDDM; fatty liver; Hypertension; Liver failure (currently on liver ko1 transplant list); Paracentesis; Psoriatic Arthritis; - PSHx: 10: Unable to Obtain; ko1 - Immunization history:: Adult Immunizations unknown. - Social history:: Smoking status: unknown. ROS: 13:46 Constitutional: Negative for fever, chills, and weight loss, Eyes: Negative for injury, eliazar pain, redness, and discharge, ENT: Negative for injury, pain, and discharge, Neck: Negative for injury, pain, and swelling, Cardiovascular: Negative for chest pain, palpitations, and edema, Respiratory: Negative for shortness of breath, cough, wheezing, and pleuritic chest pain, Back: Negative for injury and pain, : Negative for injury, bleeding, discharge, and swelling, Skin: Negative for injury, rash, and discoloration, Psych: Negative for depression, anxiety, suicide ideation, homicidal ideation, and hallucinations, Allergy/Immunology: Negative for hives, rash, and allergies, Endocrine: Negative for neck swelling, polydipsia, polyuria, polyphagia, and marked weight changes, Hematologic/Lymphatic: Negative for swollen nodes, abnormal bleeding, and unusual bruising, 13:46 Abdomen/GI: Positive for abdominal pain, abdominal distension, 13:46 MS/extremity: Positive for swelling, 13:46 Neuro: Positive for altered mental status, weakness, Exam: 13:46 Constitutional: This is a well developed, well nourished patient who is awake, alert, eliazar and in no acute distress. Head/Face: Normocephalic, atraumatic. Eyes: Pupils equal round and reactive to light, extra-ocular motions intact. Lids and lashes normal. Conjunctiva and sclera are non-icteric and not injected. Cornea within normal limits. Periorbital areas with no swelling, redness, or edema. ENT: Nares patent. No nasal discharge, no septal abnormalities noted. Tympanic membranes are normal and external auditory canals are clear. Oropharynx with no redness, swelling, or masses, exudates, or evidence of obstruction, uvula midline. Mucous membranes moist. Neck: Trachea midline, no thyromegaly or masses palpated, and no cervical lymphadenopathy. Supple, full range of motion without nuchal rigidity, or vertebral point tenderness. No Meningismus. Chest/axilla: Normal chest wall appearance and motion. Nontender with no deformity. No lesions are appreciated. Cardiovascular: Regular rate and rhythm with a normal S1 and S2. No gallops, murmurs, or rubs. Normal PMI, no JVD. No pulse deficits. Respiratory: Lungs have equal breath sounds bilaterally, clear to auscultation and percussion. No rales, rhonchi or wheezes noted. No increased work of breathing, no retractions or nasal flaring. Abdomen/GI: Soft, non-tender, with normal bowel sounds. No distension or tympany. No guarding or rebound. No evidence of tenderness throughout. Back: No spinal tenderness. No costovertebral tenderness. Full range of motion. Female : Normal external genitalia. MS/ Extremity: Pulses equal, no cyanosis. Neurovascular intact. Full, normal range of motion. Neuro: Awake and alert, GCS 15, oriented to person, place, time, and situation. Cranial nerves II-XII grossly intact. Motor strength 5/5 in all extremities. Sensory grossly intact. Cerebellar exam normal. Normal gait. Psych: Awake, alert, with orientation to person, place and time. Behavior, mood, and affect are within normal limits. 13:46 Skin: Appearance: Color: pale, Temperature: normal temperature, Moisture: normal moisture, abscess, not appreciated, cellulitis, is not appreciated, induration, is not appreciated, 13:52 ECG was reviewed by the Attending Physician. [facility] Vital Signs: 09:58 BP 133 / 46; Pulse 78; Resp 15; Temp 98; Pulse Ox 100% on R/A; ko1 10:12 BP 120 / 42; Pulse 78; Resp 15; Pulse Ox 100% on R/A; ko1 11:44 BP 134 / 54; Pulse 74; Resp 16; Pulse Ox 99% ; ko1 14:10 BP 124 / 56; Pulse 74; Resp 16; Pulse Ox 100% on R/A; me1 15:15 BP 120 / 49; Pulse 81; Resp 16; Temp 97.8(A); Pulse Ox 100% ; me1 16:00 BP 142 / 50; Pulse 80; Resp 16; Pulse Ox 100% on R/A; me1 NIH Stroke Scale Scores: 13:46 NIHSS Score: 0 eliazar MDM: 09:59 Patient medically screened. [facility] 13:47 Differential Diagnosis altered mental status, sepsis, flu. Differential Diagnosis: CVA, eliazar electrolyte abnormality, hypoglycemia, intracranial bleed, pneumonia, TIA, UTI, volume depletion. Data reviewed: vital signs, nurses notes, lab test result(s), EKG, radiologic studies, CT scan, plain films. Consideration of Admission/Observation Escalation of care including admission/observation considered. I considered the following discharge prescriptions or medication management in the emergency department Medications were administered in the Emergency Department. See MAR. Independent interpretation of the following test(s) in the Emergency Department EKG: See my EKG interpretation above CT Scan: My interpretation is see report. Test considered but Not performed: Ultrasound no abd usg. Historians other than the Patient: Daughter/Son: daughter well informed. Care significantly affected by the following chronic conditions: Diabetes, Hypertension, Chronic Obstructive Pulmonary Disease, Obesity, Chronic Kidney Disease, Liver Disease. Counseling: I had a detailed discussion with the patient and/or guardian regarding the historical points, exam findings, and any diagnostic results supporting the discharge/admit diagnosis, lab results, radiology results, the need to transfer to another facility, for higher level of care, [facility] does not immediately have the required specialist, liver team at [facility]. 02/04 10:16 Order name: Basic Metabolic Panel; Complete Time: 11:56 [facility] 02/04 10:16 Order name: CBC with Diff; Complete Time: 13:21 [facility] 02/04 10:16 Order name: LFT's; Complete Time: 11:56 [facility] 02/04 10:16 Order name: Magnesium; Complete Time: 11:56 [facility] 02/04 10:16 Order name: NT PRO-BNP; Complete Time: 11:56 [facility] 02/04 10:16 Order name: PT-INR; Complete Time: 11:56 [facility] 02/04 10:16 Order name: Troponin HS; Complete Time: 11:56 [facility] 02/04 10:16 Order name: Lactate w/ 2H reflex if indic.; Complete Time: 11:56 [facility] 02/04 10:16 Order name: Blood Culture Adult (2) [facility] 02/04 10:16 Order name: AMMONIA; Complete Time: 11:56 [facility] 02/04 10:16 Order name: Urinalysis w/ reflexes; Complete Time: 11:56 [facility] 02/04 11:14 Order name: Urine Culture [facility] 02/04 11:58 Order name: Type And Screen [facility] 02/04 12:12 Order name: Bb Add On 02/04 12:42 Order name: CBC Smear Scan; Complete Time: 13:21 [facility] 02/04 13:25 Order name: Packed RBC Leukored [facility] 02/04 16:58 Order name: Lactate Sepsis 2 HR Follow-up [facility] 02/04 10:16 Order name: XRAY Chest (1 view); Complete Time: 13:21 [facility] 02/04 11:58 Order name: CT Traumagram (Head C Spine CAP wo con); Complete Time: 13:21 [facility] 02/04 10:16 Order name: EKG; Complete Time: 10:17 [facility] 02/04 10:16 Order name: Cardiac monitoring; Complete Time: 11: [facility] 02/04 10:16 Order name: EKG - Nurse/Tech; Complete Time: 11: [facility] 02/04 10:16 Order name: IV Saline Lock; Complete Time: 11: [facility] 02/04 10:16 Order name: Labs collected and sent; Complete Time: 11:05 [facility] 02/04 10:16 Order name: O2 Per Protocol; Complete Time: 11: [facility] 02/04 10:16 Order name: O2 Sat Monitoring; Complete Time: 11: [facility] 02/04 10:16 Order name: Blood Glucose Level; Complete Time: 11:06 [facility] 02/04 11:58 Order name: Transfuse; Complete Time: 16:28 [facility] EC:52 Rate is 76 beats/min. Rhythm is regular. QRS [place] is Normal. [place] interval is normal. QRS eliazar interval is normal. QT interval is normal. No Q waves. T waves are Normal. No ST changes noted. Clinical impression: NSR w/ Non-specific ST/T Changes and No evidence of ischemia. Interpreted by me. Reviewed by me. Administered Medications: 11:32 Drug: NS 0.9% IV 1000 ml IV at 75 ml/hr continuous Route: IV; Rate: 75 ml/hr; Site: ko right hand; 16:29 Follow up: Response: No adverse reaction; IV Status: Completed infusion me1 11:32 Drug: Famotidine IVP 20 mg IVP once; dilute with 10 mL 0.9% NaCl; give over 2 minutes ko1 Route: IVP; Site: right hand; 11:52 Follow up: Response: No adverse reaction ko1 11:33 Drug: Rocephin IV 1 grams IV at per protocol once; Given slow IV push per pharmacy ko1 instructions Route: IV; Rate: per protocol; Site: right hand; 11:52 Follow up: Response: No adverse reaction; IV Status: Completed infusion; IV Intake: ko1 100ml 13:06 Drug: Lactulose PO 60 grams 45 ml PO once Volume: 45 ml; Route: PO; me1 13:16 Follow up: Response: No adverse reaction me1 13:15 Drug: Pantoprazole IVP 40 mg IVP once Route: IVP; Site: right hand; me1 13:16 Follow up: Response: No adverse reaction me1 13:15 Drug: Phytonadione Sub-Q 10 mg Sub-Q once Route: Sub-Q; Site: abdomen; me1 16:27 Follow up: Response: No adverse reaction me1 Disposition Summary: 02/05/24 13:51 Transfer Ordered Notes: Transfer Location: [facility] eliazar Reason: Higher level of care eliazar Condition: Fair eliazar Problem: new eliazar Symptoms: have improved eliazar Accepting Physician: to liver team(02/05/24 17:00) me1 Diagnosis - UTI/ Urinary tract infection, site not specified eliazar - Altered mental status, unspecified eliazar - Anemia in chronic kidney disease eliazar - Anemia, unspecified eliazar - Encephalopathy, unspecified - HEPATIC eliazar - Pleural effusion in other conditions classified elsewhere - LARGE LEFT eliazar Forms: - Medication Reconciliation Form eliazar - SBAR form eliazar NIH Stroke Scale - NIH Stroke Score Date: 02/05/2024 Time: 13:46 Total Score = 0 10. Dysarthria (speech clarity - read or repeat words) - 0(Normal) 11. Extinction and Inattention (visual/tactile/auditory/spatial/personal) - 0(No abnormality) 1a. Level of Consciousness (LOC) - 0(Alert) 1b. Level of Consciousness (LOC) (Month \T\ Age) - 0(Both) 1c. LOC Commands (Open \T\ Closes Eyes/Tool And Die Assembler) - 0(Both) 2. Best Gaze (Lateral Gaze Paresis) - 0(Normal) 3. Visual Field Loss - 0(No visual loss) 4. Facial Palsy - 0(Normal) 5a. Left Arm: Motor (10-second hold) - 0(No drift) 5b. Right Arm: Motor (10-second hold) - 0(No drift) 6a. Left Leg: Motor (5-second hold - always test supine) - 0(No drift) 6b. Right Leg: Motor (5-second hold - always test supine) - 0(No drift) 7. Limb Ataxia (finger/nose \T\ heel/forrester - test with eyes open) - 0(Absent) 8. Sensory Loss (pinprick arms/legs/face) - 0(Normal) 9. Best Language: Aphasia (description/naming/reading) - 0(No aphasia) Initials: [facility] Signatures: Dispatcher [employer] EDDenny Jaimes MD MD cha Oliver, Kathy, RN RN ko1 Seble Ware RN RN me1 Corrections: (The following items were deleted from the chart) 13:23 11:58 PACKED RBC LEUKORED+[id number].LAB.BRZ ordered. EDMS EDMS 13:23 12:00 ABO/RH typing ordered. EDMS EDMS 13:23 12:00 Antibody Screen ordered. EDNY EDMS 13:52 13:51 to liver team [facility] 17:00 13:52 to liver team [facility]
[2024-02-05 17:36] VITALS: O2SAT 100
[2024-02-05 18:03] VITALS: BP 142/50; TEMP 97.8
--- NOTE | 2024-02-08 14:27 | EKG ---
Test Date: 2024-02-05 Test Time: 10:30:28 Hair Baler: ELZA MEASUREMENT RESULTS: Intervals: Rate: 76 [place]: 158 QRSD: 92 QT: 410 QTc: 461 [place]: P: 73 [place]: 158 QRS: 47 T: 85 INTERPRETIVE STATEMENTS: Normal sinus rhythm Nonspecific ST abnormality Abnormal ECG Compared to ECG 12/04/2023 17:03:07 ST (T wave) deviation now present Sinus bradycardia no longer present Atrial premature complex(es) no longer present Electronically Signed On 02-08-24 14:16:58 CDT by Stan Cai
== END ==
LOC: ER 09:57
PROC: 30233N1 Transfusion of Nonautologous Red Blood Cells into Peripheral Vein, Percutaneous Approach (ICD-10-PCS; principal; 2024-02-05)
DX: N39.0 Urinary tract infection, site not specified (principal); E11.22 Type 2 diabetes mellitus with diabetic chronic kidney disease; I12.9 Hypertensive chronic kidney disease with stage 1 through stage 4 chronic kidney disease, or unspecified chronic kidney disease; N18.9 Chronic kidney disease, unspecified; D63.1 Anemia in chronic kidney disease; K76.82 Hepatic encephalopathy; J91.8 Pleural effusion in other conditions classified elsewhere; J44.9 Chronic obstructive pulmonary disease, unspecified
CPT/HCPCS: 96365; 96361; 93005; 87040 ×2; 87088; 85025; 81001; 87086; 80048; 36415; 82140; 86900; 83735; 86850; 85610; 86901; 80076; 83605 ×2; 86920 ×2; 87077; 87186; 84484; 83880; 70450; 71250; 72125; 71045; 96375; 96372; 99285; 36430; J3430; C9113; P9016; J7050; J7030; J0696

== ENCOUNTER 2024-02-15 07:57 | Day surgery (SDC) | payer OTHER, BC ==
[2024-02-15] MEDS: ALBUMIN HUMAN 25% 200 ML IV ONE (09:16)
--- NOTE | 2024-02-15 09:40 | RAD REPORT ---
EXAM DESCRIPTION: US - Paracentesis Proc Guidance - 02/15/2024 9:04 am CLINICAL HISTORY: ASCITES Ascites COMPARISON: Paracentesis Proc Guidance dated 01/22/2024 FINDINGS: Informed consent was obtained and time-out was performed. Patient's abdomen was prepped and draped in the usual sterile fashion. 1% lidocaine was used for loca l anesthetic purposes. A small skin incision was made. A paracentesis catheter was guided into the peroneal cavity under son ographic guidance. A small amount of fluid was sent for requested lab studies. A large volume paracentesis was performed . The patient tolerated the procedure well. Patient was administered IV albumin per protocol following the procedure. IMPRESSION: Successful ultrasound-guided paracentesis.
[2024-02-15 10:03] VITALS: O2SAT 100; BMI 29.7
[2024-02-15 11:20] VITALS: BP 133/44; TEMP 97
[2024-02-15 12:24] LABS: Appearance CLEAR (CLEAR); Body Fluid Lymphocytes 53 %; Body Fluid Source PERITONEAL; Body Fluid WBC 47 /mm^3; Color of fluid Yellow (COLORLESS); Fluid Total Cells Count 100
== END 2024-02-15 10:30 | disposition home or self-care (01) ==
LOC: DS 07:57
PROVIDERS: ATTEND Legal Medicine
DX: R18.8 Other ascites (principal)
CPT/HCPCS: 96365; 49083; P9047; 36415; 84157; 87070; 89050

== ENCOUNTER 2024-02-22 07:38 | Day surgery (SDC) | payer OTHER, BC ==
[2024-02-22 08:29] LABS: MPV 8.7 fL (7.6-11.3); Platelets 85 thou/uL (152-406)
[2024-02-22 08:35] LABS: PT Prothrombin Time 13.5 SECONDS (9.5-12.5); PTT, Activated Partial Thromb 33.6 SECONDS (24.3-36.9); Protime INR 1.23
[2024-02-22 09:00] LABS: Blood Morphology Comment NOT SEEN (NOT SEEN); Platelet Estimate DECR; White Blood Cell Scan OK (OK)
[2024-02-22] MEDS: ALBUMIN HUMAN 25% 50 ML IV ONE (10:52)
[2024-02-22] MEDS: ALBUMIN HUMAN 25% 200 ML IV ONE (10:52)
--- NOTE | 2024-02-22 10:59 | RAD REPORT ---
EXAM DESCRIPTION: US - Paracentesis Proc Guidance - 02/22/2024 9:41 am CLINICAL HISTORY: ASCITES COMPARISON: Paracentesis Proc Guidance dated 02/15/2024 TECHNIQUE AND FINDINGS: Informed consent was obtained and time-out was performed. Patient's abdomen was prepped and draped in the usual sterile fashion. 1% lidocaine was used for loca l anesthetic purposes. A small skin incision was made. A paracentesis catheter was guided into the peroneal cavity under son ographic guidance. A small amount of fluid was sent for requested lab studies. A large volume paracentesis was performed . A total of 5.5 liters of ascitic fluid were withdrawn. The patient tolerated the procedure well. Patient was administered IV albumin per protocol following the procedure. IMPRESSION: Successful ultrasound-guided diagnostic and therapeutic paracentesis.
[2024-02-22 11:03] VITALS: O2SAT 100
[2024-02-22 12:47] VITALS: BP 135/46; TEMP 97.4; BMI 29.7
[2024-02-22 13:39] LABS: Appearance CLEAR (CLEAR); Body Fluid Source PERITONEAL; Color of Supernate Not Xanthochromic (Not Xantho); Color of fluid Yellow (COLORLESS); Tube # #2
[2024-02-22 13:40] LABS: Body Fluid WBC 6 /mm^3
== END 2024-02-22 12:38 | disposition home or self-care (01) ==
LOC: DS 07:38
PROVIDERS: ATTEND Legal Medicine
DX: R18.8 Other ascites (principal)
CPT/HCPCS: 87070; 36415; 89050; 85049; 84157; 85610; 85730; 96365; 49083; P9047 ×2

== ENCOUNTER 2024-03-11 07:32 | Day surgery (SDC) | payer OTHER, BC ==
[2024-03-11 08:39] VITALS: BMI 27.9
[2024-03-11] MEDS: ALBUMIN HUMAN 25% 200 ML IV ONE (10:03)
--- NOTE | 2024-03-11 10:19 | RAD REPORT ---
EXAM DESCRIPTION: US - Paracentesis Proc Guidance - 03/11/2024 10:06 am CLINICAL HISTORY: ASCITES Ascites COMPARISON: Paracentesis Proc Guidance dated 02/29/2024 FINDINGS: Informed consent was obtained and time-out was performed. Patient's abdomen was prepped and draped in the usual sterile fashion. 1% lidocaine was used for loca l anesthetic purposes. A small skin incision was made right lower quadrant. A paracentesis catheter was guided into the ricky caryn cavity under sonographic guidance. A small amount of fluid was sent for requested lab studies. A large volume paracentesis was performed . The patient tolerated the procedure well. Patient was administered IV albumin per protocol following the procedure. IMPRESSION: Successful ultrasound-guided paracentesis.
[2024-03-11 11:52] VITALS: BP 130/51; TEMP 99.3; O2SAT 98
[2024-03-11 13:30] LABS: Body Fluid Source PERITONEAL; Tube # #2
[2024-03-11 13:38] LABS: Color of fluid Yellow (COLORLESS)
[2024-03-11 13:39] LABS: Appearance CLEAR (CLEAR); Color of Supernate Xanthochromic (Not Xantho)
[2024-03-11 13:40] LABS: Body Fluid WBC 28 /mm^3
[2024-03-11 16:11] LABS: Body Fluid Lymphocytes 62 %
[2024-03-11 16:12] LABS: Fluid Total Cells Count 100
== END 2024-03-11 12:15 | disposition home or self-care (01) ==
LOC: DS 07:32
PROVIDERS: ATTEND Legal Medicine
DX: R18.8 Other ascites (principal)
CPT/HCPCS: 87070; 36415; 89050; 84157; 96365; 49083; P9047

== ENCOUNTER 2024-03-25 07:20 | Day surgery (SDC) | payer OTHER, BC ==
[2024-03-25 07:49] LABS: MPV 8.8 fL (7.6-11.3); Platelets 68 thou/uL (152-406)
[2024-03-25 07:50] LABS: PT Prothrombin Time 15.9 SECONDS (9.5-12.5); PTT, Activated Partial Thromb 34.2 SECONDS (24.3-36.9); Protime INR 1.46
[2024-03-25 08:05] VITALS: BMI 27.9
[2024-03-25] MEDS: ALBUMIN HUMAN 25% 200 ML IV ONE (10:40)
[2024-03-25] MEDS: ALBUMIN HUMAN 25% 50 ML IV ONE (10:40)
[2024-03-25 10:47] VITALS: BP 159/61; TEMP 96.9; O2SAT 100
--- NOTE | 2024-03-25 11:41 | RAD REPORT ---
EXAM DESCRIPTION: US - Paracentesis Proc Guidance - 03/25/2024 10:07 am CLINICAL HISTORY: ASCITES Ascites COMPARISON: Paracentesis Proc Guidance dated 03/11/2024 FINDINGS: Informed consent was obtained and time-out was performed. Patient's abdomen was prepped and draped in the usual sterile fashion. 1% lidocaine was used for loca l anesthetic purposes. A small skin incision was made. A paracentesis catheter was guided into the peroneal cavity under son ographic guidance. Return of straw-colored ascitic fluid noted. Exam was performed for therapeutic purposes only. A large volume paracentesis was performed, with a t otal of 5.6 liters drained. The patient tolerated the procedure well. Patient was administered IV albumin per protocol following the procedure. IMPRESSION: Successful ultrasound-guided therapeutic paracentesis.
[2024-03-25 15:41] LABS: Body Fluid Source OTHER; Color of fluid Yellow (COLORLESS); Tube # #2
[2024-03-25 15:42] LABS: Appearance CLEAR (CLEAR); Color of Supernate Not Xanthochromic (Not Xantho)
[2024-03-25 15:44] LABS: Body Fluid WBC 21 /mm^3
[2024-03-25 15:45] LABS: Body Fluid Lymphocytes 63 %; Fluid Total Cells Count 100
== END 2024-03-25 12:00 | disposition home or self-care (01) ==
LOC: DS 07:20
PROVIDERS: ATTEND Legal Medicine
DX: R18.8 Other ascites (principal)
CPT/HCPCS: 87070; 36415; 89050; 85049; 84157; 85610; 85730; 96365; 49083; P9047 ×2

== ENCOUNTER 2024-04-15 10:12 | Day surgery (SDC) | payer OTHER, BC ==
[2024-04-15 12:01] VITALS: BMI 29.9
[2024-04-15] MEDS: ALBUMIN HUMAN 25% 300 ML IV ONE (12:26)
--- NOTE | 2024-04-15 12:36 | RAD REPORT ---
EXAM DESCRIPTION: US - Paracentesis Proc Guidance - 04/15/2024 11:50 am CLINICAL HISTORY: Liver disease with ascites FINDINGS: The risks, benefits and alternatives to the procedure were explained to the patient and in formed consent obtained. The skin and deeper tissues were anesthetized with Lidocaine. Under sonographic guidance an 8 Japanese catheter was placed into the right lower quadrant. 6.3 liters of yellow fluid removed. Fluid sent to the lab. The patient experienced no immediate complication. IMPRESSION: Paracentesis
[2024-04-15 14:45] VITALS: BP 161/71; TEMP 97.8; O2SAT 99
[2024-04-15 14:58] LABS: Appearance SLT. TURBID (CLEAR); Body Fluid Source PERITONEAL; Color of Supernate Not Xanthochromic (Not Xantho); Color of fluid Yellow (COLORLESS); Tube # SINGLE
[2024-04-15 15:00] LABS: Body Fluid WBC 2 /mm^3
== END 2024-04-15 13:45 | disposition home or self-care (01) ==
LOC: DS 10:12
PROVIDERS: ATTEND Legal Medicine
DX: R18.8 Other ascites (principal)
CPT/HCPCS: 87070; 36415; 89050; 84157; 96365; 49083; P9047

== ENCOUNTER 2024-04-29 07:43 | Day surgery (SDC) | payer OTHER, BC ==
[2024-04-29 08:21] LABS: MPV 8.2 fL (7.6-11.3); Platelets 68 thou/uL (152-406)
[2024-04-29 08:33] LABS: PT Prothrombin Time 17.2 SECONDS (9.5-12.5); PTT, Activated Partial Thromb 36.9 SECONDS (24.3-36.9); Protime INR 1.58
[2024-04-29 08:48] VITALS: BMI 28.8
[2024-04-29] MEDS: ALBUMIN HUMAN 25% 300 ML IV ONE (10:22)
--- NOTE | 2024-04-29 10:59 | RAD REPORT ---
EXAM DESCRIPTION: US - Paracentesis Proc Guidance - 04/29/2024 10:05 am CLINICAL HISTORY: Liver disease with ascites FINDINGS: The risks, benefits and alternatives to the procedure were explained to the patient and in formed consent obtained. The skin and deeper tissues were anesthetized with Lidocaine. Under sonographic guidance an 8 Lithuanian catheter was placed into the right lower quadrant. 6 liters of yellow fluid removed. Fluid sent to e lab. The patient experienced no immediate complication. IMPRESSION: Paracentesis
[2024-04-29 12:51] VITALS: BP 146/44; TEMP 97; O2SAT 100
[2024-04-29 17:01] LABS: Body Fluid WBC 33 /mm^3
[2024-04-29 18:15] LABS: Appearance CLEAR (CLEAR); Body Fluid Lymphocytes 73 %; Body Fluid Source PERITONEAL; Color of Supernate Not Xanthochromic (Not Xantho); Color of fluid Yellow (COLORLESS); Fluid Total Cells Count 100; Tube # SINGLE
== END 2024-04-29 11:36 | disposition home or self-care (01) ==
LOC: DS 07:43
PROVIDERS: ATTEND Legal Medicine
DX: R18.8 Other ascites (principal)
CPT/HCPCS: 87070; 36415; 89050; 85049; 84157; 85610; 85730; 96365; 49083; P9047

== ENCOUNTER 2024-05-06 07:40 | Day surgery (SDC) | payer OTHER, BC ==
[2024-05-06] MEDS: ALBUMIN HUMAN 25% 300 ML IV ONE (10:03)
--- NOTE | 2024-05-06 10:20 | RAD REPORT ---
EXAM DESCRIPTION: US - Paracentesis Proc Guidance - 05/06/2024 9:21 am CLINICAL HISTORY: ASCITES Ascites COMPARISON: Paracentesis Proc Guidance dated 04/29/2024 FINDINGS: Informed consent was obtained and time-out was performed. Patient's abdomen was prepped and draped in the usual sterile fashion. 1% lidocaine was used for loca l anesthetic purposes. A small skin incision was made. A paracentesis catheter was guided into the peroneal cavity under son ographic guidance. A small amount of fluid was sent for requested lab studies. A large volume paracentesis was performed , total of 6 liters straw colored ascitic fluid were drained. The patient tolerated the procedure well. Patient was administered IV albumin per protocol following the procedure. IMPRESSION: Successful ultrasound-guided paracentesis.
[2024-05-06 10:57] VITALS: BMI 27.9
[2024-05-06 12:04] VITALS: BP 147/50; TEMP 98.1; O2SAT 98
[2024-05-06 14:22] LABS: Appearance CLEAR (CLEAR); Body Fluid Source PERITONEAL; Body Fluid WBC 17 /mm^3; Color of Supernate Not Xanthochromic (Not Xantho); Color of fluid Yellow (COLORLESS); Tube # SINGLE
[2024-05-06 14:40] LABS: Body Fluid Lymphocytes 45 %
[2024-05-06 14:47] LABS: Fluid Total Cells Count 100
== END 2024-05-06 11:38 | disposition home or self-care (01) ==
LOC: DS 07:40
PROVIDERS: ATTEND Legal Medicine
DX: R18.8 Other ascites (principal)
CPT/HCPCS: 87070; 36415; 89050; 84157; 96365; 49083; P9047

== ENCOUNTER 2024-05-13 07:41 | Day surgery (SDC) | payer OTHER, BC ==
[2024-05-13 08:48] VITALS: TEMP 97; O2SAT 100; BMI 29.7
[2024-05-13] MEDS: ALBUMIN HUMAN 25% 300 ML IV ONE (09:49)
[2024-05-13 09:58] VITALS: BP 129/47
--- NOTE | 2024-05-13 13:00 | RAD REPORT ---
EXAM DESCRIPTION: US - Paracentesis Proc Guidance - 05/13/2024 9:19 am CLINICAL HISTORY: ASCITES Ascites COMPARISON: Paracentesis Proc Guidance dated 05/06/2024 FINDINGS: Informed consent was obtained and time-out was performed. Patient's abdomen was prepped and draped in the usual sterile fashion. 1% lidocaine was used for loca l anesthetic purposes. A small skin incision was made. A paracentesis catheter was guided into the peroneal cavity under son ographic guidance. A small amount of fluid was sent for requested lab studies. A large volume paracentesis was performed . The patient tolerated the procedure well. Patient was administered IV albumin per protocol following the procedure. IMPRESSION: Successful ultrasound-guided paracentesis.
[2024-05-13 14:21] LABS: Tube # #2
[2024-05-13 14:22] LABS: Appearance CLEAR (CLEAR); Body Fluid Source OTHER; Color of Supernate Not Xanthochromic (Not Xantho); Color of fluid Yellow (COLORLESS)
[2024-05-13 14:23] LABS: Body Fluid Lymphocytes 45 %; Body Fluid WBC 16 /mm^3; Fluid Total Cells Count 19
== END 2024-05-13 11:01 | disposition home or self-care (01) ==
LOC: DS 07:41
PROVIDERS: ATTEND Legal Medicine
DX: R18.8 Other ascites (principal)
CPT/HCPCS: 87070; 36415; 89050; 84157; 96365; 49083; P9047

== ENCOUNTER 2024-05-20 07:47 | Day surgery (SDC) | payer OTHER, BC ==
--- NOTE | 2024-05-20 10:08 | RAD REPORT ---
EXAM DESCRIPTION: US - Paracentesis Proc Guidance - 05/20/2024 9:55 am CLINICAL HISTORY: . Ascites COMPARISON: Paracentesis Proc Guidance dated 05/13/2024 FINDINGS: Informed consent was obtained and time-out was performed. Patient's abdomen was prepped and draped in the usual sterile fashion. 1% lidocaine was used for loca l anesthetic purposes. A small skin incision was made. A paracentesis catheter was guided into the peroneal cavity under son ographic guidance. A small amount of fluid was sent for requested lab studies. A large volume paracentesis was performed . The patient tolerated the procedure well. Patient was administered IV albumin per protocol following the procedure. IMPRESSION: Successful ultrasound-guided paracentesis.
[2024-05-20] MEDS: ALBUMIN HUMAN 25% 100 ML IV ONE (10:18)
[2024-05-20 10:27] VITALS: BMI 29.7
[2024-05-20] MEDS: ALBUMIN HUMAN 25% 50 ML IV ONE (10:48)
[2024-05-20 11:53] VITALS: BP 170/45; TEMP 96.5; O2SAT 100
[2024-05-20 12:08] LABS: Tube # SINGLE
[2024-05-20 12:09] LABS: Appearance SLT. TURBID (CLEAR); Body Fluid Lymphocytes 31 %; Body Fluid Source PERITONEAL; Body Fluid WBC 54 /mm^3; Color of fluid Yellow (COLORLESS); Fluid Total Cells Count 100
== END 2024-05-20 11:10 | disposition home or self-care (01) ==
LOC: DS 07:47
PROVIDERS: ATTEND Legal Medicine
DX: R18.8 Other ascites (principal)
CPT/HCPCS: 36415; 49083; 84157; 87070; 89050; 96365; P9047

== ENCOUNTER → 2024-06-24 | Day surgery (SDC) | payer OTHER, BC ==
[~2024-06-24] MED LIST changes: +ALBUMIN HUMAN 25% 300 ML IV ONE; -CEFTRIAXONE 1000 MG/VIAL ONE; -FAMOTIDINE 20 MG/2 ML VIAL IV ONE; -LACTULOSE 20 GM/30 ML UCUP ONE; -NA CHLORIDE 0.9% 1,000 ML ONE; -NA CHLORIDE 0.9% 250 ML ONE; -PANTOPRAZOLE 40 MG INJ ONE; -VITAMIN K (ADULT) 10 MG/ML ONE
[2024-06-24 08:10] VITALS: TEMP 97; O2SAT 100; BMI 29.1
[2024-06-24 09:22] VITALS: BP 128/43
--- NOTE | 2024-06-24 09:31 | RAD REPORT ---
EXAM DESCRIPTION: US - Paracentesis Proc Guidance - 06/24/2024 9:20 am CLINICAL HISTORY: ASCITES Ascites COMPARISON: Paracentesis Proc Guidance dated 06/17/2024 FINDINGS: Informed consent was obtained and time-out was performed. Patient's abdomen was prepped and draped in the usual sterile fashion. 1% lidocaine was used for loca l anesthetic purposes. A small skin incision was made. A paracentesis catheter was guided into the peroneal cavity under son ographic guidance. A small amount of fluid was sent for requested lab studies. A large volume paracentesis was performed . The patient tolerated the procedure well. Patient was administered IV albumin per protocol following the procedure. IMPRESSION: Successful ultrasound-guided paracentesis.
[2024-06-24] MEDS: ALBUMIN HUMAN 25% IV ONE (09:38)
[2024-06-24 14:28] LABS: Appearance CLEAR (CLEAR); Body Fluid Source PERITONEAL; Color of Supernate Not Xanthochromic (Not Xantho); Color of fluid Yellow (COLORLESS)
[2024-06-24 14:29] LABS: Body Fluid Lymphocytes 33 %; Body Fluid WBC 7 /mm^3; Fluid Total Cells Count 100
== END ==
LOC: DS 07:47
PROVIDERS: ATTEND Legal Medicine
DX: R18.8 Other ascites (principal)
CPT/HCPCS: 87070; 36415; 89050; 84157; 96365; 49083; 96366; P9047

== ENCOUNTER 2024-07-08 07:12 | Day surgery (SDC) | payer OTHER, BC ==
[2024-07-08 08:10] LABS: MPV 9.4 fL (7.6-11.3); Platelets 65 thou/uL (152-406)
[2024-07-08 08:11] VITALS: BMI 28.8
[2024-07-08 08:38] LABS: PT Prothrombin Time 16.9 SECONDS (9.4-12.5); PTT, Activated Partial Thromb 36.9 SECONDS (24.3-36.9); Protime INR 1.53
--- NOTE | 2024-07-08 10:20 | RAD REPORT ---
EXAM DESCRIPTION: US - Paracentesis Proc Guidance - 07/08/2024 9:27 am CLINICAL HISTORY: Liver disease with ascites FINDINGS: The risks, benefits and alternatives to the procedure were explained to the patient and in formed consent obtained. The skin and deeper tissues were anesthetized with Lidocaine. Under sonographic guidance an 8 Barbadian catheter was placed into the right lower quadrant. 6 liters of yellow fluid removed. Fluid sent to e lab. The patient experienced no immediate complication. IMPRESSION: Paracentesis
[2024-07-08] MEDS: ALBUMIN HUMAN 25% 300 ML IV ONE (10:23)
[2024-07-08 12:41] LABS: Appearance CLEAR (CLEAR); Body Fluid Source PERITONEAL; Body Fluid WBC 4 /mm^3; Color of Supernate Not Xanthochromic (Not Xantho); Color of fluid Yellow (COLORLESS); Tube # SINGLE
[2024-07-08 13:11] VITALS: O2SAT 100
[2024-07-08 13:13] VITALS: BP 145/48; TEMP 97.9
== END 2024-07-08 13:15 | disposition home or self-care (01) ==
LOC: DS 07:12
PROVIDERS: ATTEND Legal Medicine
DX: R18.8 Other ascites (principal)
CPT/HCPCS: 87070; 36415; 89050; 85049; 84157; 85610; 85730; 96365; 49083; 96366; P9047

== ENCOUNTER 2024-07-15 07:45 | Day surgery (SDC) | payer OTHER, BC ==
[2024-07-15] MEDS: ALBUMIN HUMAN 25% 200 ML IV ONE (00:30)
[2024-07-15] MEDS: ALBUMIN HUMAN 25% 50 ML IV ONE (10:30)
--- NOTE | 2024-07-15 10:30 | RAD REPORT ---
EXAM DESCRIPTION: US - Paracentesis Proc Guidance - 07/15/2024 9:55 am CLINICAL HISTORY: Liver disease with ascites FINDINGS: The risks, benefits and alternatives to the procedure were explained to the patient and in formed consent obtained. The skin and deeper tissues were anesthetized with Lidocaine. Under sonographic guidance an 8 Welsh catheter was placed into the right lower quadrant. 5.5 liters of yellow fluid removed. Fluid sent to the lab. The patient experienced no immediate complication. IMPRESSION: Paracentesis
[2024-07-15 10:44] VITALS: TEMP 97.7
[2024-07-15 10:49] VITALS: O2SAT 100
[2024-07-15 10:50] VITALS: BMI 29.6
[2024-07-15 12:12] LABS: Appearance CLEAR (CLEAR); Body Fluid Source PERITONEAL; Color of fluid Yellow (COLORLESS)
[2024-07-15 12:13] LABS: Body Fluid WBC 16 /mm^3; Fluid Total Cells Count 100
[2024-07-15 12:14] LABS: Body Fluid Lymphocytes 18 %
[2024-07-15 13:10] VITALS: BP 120/51
== END 2024-07-15 12:15 | disposition home or self-care (01) ==
LOC: DS 07:45
PROVIDERS: ATTEND Legal Medicine
DX: R18.8 Other ascites (principal)
CPT/HCPCS: 87070; 36415; 89050; 84157; 96365; 49083; 96366; P9047 ×2; 71045; 80048; 80076; 83735; 83880; 84484; 85025; 85610; 85730; 86850; 86900; 86901; 86920; 93005; 96374; 99284; J1940; J7050; P9016

== ENCOUNTER 2024-07-15 17:33 | Emergency (ER) | payer OTHER, BC ==
[2024-07-15 21:12] LABS: Absolute Eosinophils 0.2 K/uL (0-0.5); Absolute Lymphocytes (CBC) 0.4 K/uL (0.7-4.9); Absolute Monocytes 0.4 K/uL (0.1-1.3); Absolute Neutrophil 2.3 K/uL (1.8-8.0); Basophils % 0.8 % (0-1.3); Eosinophils % 5.9 % (0-4.4); Hematocrit 22.7 % (36.0-45.0); Hemoglobin 7.3 g/dL (12.0-15.0); MCH 29.2 pg (27.0-35.0); MCHC 32.3 g/dL (32.0-36.0); MCV 90.5 fL (80-100); MPV 8.8 fL (7.6-11.3); Monocytes % 13.4 % (3.3-12.3); Neutrophils % 67.9 % (41.7-73.7); Platelets 53 thou/uL (152-406); RBC Red Blood Cell Count 2.51 M/uL (3.86-4.86); Red Cell Distribution Width 17.8 % (12.1-15.2)
[2024-07-15 21:21] LABS: PT Prothrombin Time 18.2 SECONDS (9.4-12.5); PTT, Activated Partial Thromb 37.4 SECONDS (24.3-36.9); Protime INR 1.65
[2024-07-15 21:43] LABS: Albumin 3.6 g/dL (3.4-5.0); Albumin/Globulin Ratio 1.6 (1.1-1.8); Anion Gap 8.3 mEq/L (5.0-15.0); Bilirubin Direct 0.6 mg/dL (0-0.2); Bilirubin Indirect, Calculated 0.7 mg/dL (0.2-0.8); Bilirubin Total 1.3 mg/dL (0.2-1.0); Globulin 2.3 g/dL (2.3-3.5); Potassium 4.3 mEq/L (3.5-5.1); Protein, Total 5.9 g/dL (6.4-8.2); Troponin High Sensitivity 18.8 pg/mL (<58.9)
[2024-07-15 21:48] LABS: Anisocytosis 2+; Blood Morphology Comment NOTED (NOT SEEN); Hypochromasia 2+; Platelet Estimate DECR; White Blood Cell Scan OK (OK)
--- NOTE | 2024-07-15 21:49 | RAD REPORT ---
EXAM DESCRIPTION: RAD - Chest Single View - 07/15/2024 9:40 pm CLINICAL HISTORY: SOB Chest pain. COMPARISON: Chest Single View dated 06/04/2024; Chest Single View dated 02/05/2024; Chest Single View dated 01/15/2024; Chest Single View dated 01/12/2024 FINDINGS: Portable technique limits examination quality. The lungs are grossly clear. The heart is normal in size. No displaced fractures. IMPRESSION: No acute intrathoracic process suspected.
[2024-07-16] MEDS ORDERED: NA CHLORIDE 0.9% 250 ML ONE (02:10)
[2024-07-16] MEDS ORDERED: FUROSEMIDE 20 MG/ 2ML VIAL ONE (02:32)
[2024-07-16] MEDS ORDERED: DIPHENHYDRAMINE 25 MG TAB/CAP ONE (05:35)
[2024-07-16] MEDS ORDERED: ACETAMINOPHEN 500 MG TAB ONE (05:35)
--- NOTE | 2024-07-16 06:38 | EDPHYS ---
Physician Documentation [facility] Name: Rena Burch Age: 73 yrs Sex: Female : 1950 Arrival Date: 07/15/2024 Time: 17:33 Bed 15 Private MD: ED Physician Israel Saleh HPI: 07/15 20:55 This 73 yrs old Female presents to ER via Wheelchair with complaints of Abnormal Lab cp Results. 07/16 06:37 Patient presents here with abnormal blood results suggesting worsening anemia.. sp4 Historical: - Allergies: 07/15 18:05 aspartame; db - PMHx: 18:05 fatty liver; Hypertension; COPD; Diabetes - IDDM; Paracentesis; Psoriatic Arthritis; db Liver failure (currently on liver transplant list); - Immunization history:: Adult Immunizations unknown. - Infectious Disease History:: Denies. - Social history:: Smoking status: Patient denies any tobacco usage or history of. ROS: 21:00 Constitutional: Negative for body aches, chills, fever, poor PO intake, cp 21:00 Eyes: Negative for injury, pain, redness, and discharge, cp 21:00 Cardiovascular: Positive for edema, Negative for chest pain, 21:00 Respiratory: Negative for cough, wheezing, 21:00 Abdomen/GI: Negative for abdominal pain, vomiting, diarrhea, constipation, black/tarry stool, rectal bleeding, 21:00 Neuro: Positive for syncope, weakness, Negative for altered mental status, headache, cp 21:00 All other systems are negative, cp Exam: 21:05 Constitutional: The patient appears in no acute distress, alert, awake, cp non-diaphoretic, non-toxic, well developed, well nourished, 21:05 Head/Face: Normocephalic, atraumatic. cp 21:05 Eyes: Periorbital structures: appear normal, Conjunctiva: normal, no exudate, no injection, Sclera: no appreciated abnormality, Lids and lashes: appear normal, bilaterally, 21:05 ENT: External ear(s): are unremarkable, Nose: is normal, Mouth: Lips: moist, Oral mucosa: pink and intact, moist, Posterior pharynx: Airway: no evidence of obstruction, patent, 21:05 Cardiovascular: Rate: normal, Rhythm: regular, Edema: ankle edema, that is moderate, JVD: is not appreciated, 21:05 Respiratory: the patient does not display signs of respiratory distress, Respirations: normal, no use of accessory muscles, no retractions, labored breathing, is not present, Breath sounds: decreased breath sounds, that are mild, throughout, 21:05 Abdomen/GI: Inspection: distension, that is moderate, Bowel sounds: active, all quadrants, Palpation: soft, in all quadrants, nontender, in all quadrants, 21:05 Neuro: Orientation: to person, place \T\ time. Mentation: is normal, Motor: moves all fours, no focal deficits, 21:45 ECG was reviewed by the Attending Physician. cp Vital Signs: 18:03 BP 137 / 48; Pulse 68; Resp 18; Temp 97.6; Pulse Ox 100% ; Weight 78.47 kg; Height 5 db ft. 5 in. ; 20:00 BP 133 / 54; Pulse 66; Resp 16; Temp 98.1; Pulse Ox 98% on R/A; Pain 0/10; ar6 22:00 BP 116 / 58; Pulse 62; Resp 16; Pulse Ox 98% on R/A; ar6 23:00 BP 137 / 58; Pulse 64; Resp 18; Pulse Ox 97% on R/A; ar6 07/16 00:00 BP 155 / 45; Pulse 64; Resp 16; Pulse Ox 100% ; cp4 01:00 BP 148 / 46; Pulse 68; Resp 16; Pulse Ox 98% ; cp4 02:00 BP 126 / 42; Pulse 63; Resp 16; Pulse Ox 100% ; cp4 03:00 BP 139 / 46; Pulse 63; Resp 16; Pulse Ox 100% ; cp4 04:00 BP 132 / 53; Pulse 62; Resp 18; Pulse Ox 99% ; cp4 05:00 BP 132 / 42; Pulse 62; Resp 18; Pulse Ox 99% ; cp4 06:30 BP 129 / 42; Pulse 61; Resp 18; Pulse Ox 99% ; cp4 07/15 18:03 Body Mass Index 28.79 (78.47 kg, 165.1 cm) db 20:00 Pain Scale: Adult ar6 MDM: 07/15 18:02 Patient medically screened. cp 07/16 00:00 Differential diagnosis: viral Infection, bacterial infection, pneumonia UTI, cp gastroenteritis. 06:12 Differential Diagnosis altered mental status, sepsis, flu. Data reviewed: vital signs, sp4 nurses notes, old medical records, lab test result(s). 07/15 20:51 Order name: Basic Metabolic Panel; Complete Time: 23:03 cp 07/15 23:04 Interpretation: Normal except: CL 110; GLUC 233; BUN 50; CRE 2.55; GFR 19. cp 07/15 20:51 Order name: CBC with Diff; Complete Time: 23:03 cp 07/15 23:04 Interpretation: Normal except: WBC 3.40; RBC 2.51; HGB 7.3; HCT 22.7; PLT 53; RDW 17.8; cp LYM% 12.0; MN% 13.4; EOSINOPHIL % 5.9; LYMA 0.4. 07/15 20:51 Order name: LFT's; Complete Time: 23:03 cp 07/15 23:04 Interpretation: Normal except: AST 39; ALK 134; BILIT 1.3; BILID 0.6; TP 5.9. 07/15 20:51 Order name: Magnesium; Complete Time: 23:03 cp 07/15 20:51 Order name: NT PRO-BNP; Complete Time: 23:03 cp 07/15 23:06 Interpretation: Reviewed. 07/15 20:51 Order name: PT-INR; Complete Time: 23:03 cp 07/15 20:51 Order name: Troponin HS; Complete Time: 23:03 cp 07/15 20:51 Order name: Type And Screen cp 07/16 01:09 Interpretation: Reviewed. 07/15 20:51 Order name: Ptt, Activated; Complete Time: 23:03 cp 07/15 21:22 Order name: CBC Smear Scan; Complete Time: 23:03 EDVA 07/15 23:55 Order name: Packed RBC Leukored [facility] 07/15 20:51 Order name: XRAY Chest (1 view); Complete Time: 23:03 cp 07/15 23:05 Interpretation: Report review. 07/15 20:51 Order name: Cardiac monitoring; Complete Time: 21:05 cp 07/15 20:51 Order name: EKG - Nurse/Tech; Complete Time: 22:32 cp 07/15 20:51 Order name: IV Saline Lock; Complete Time: 21:05 cp 07/15 20:51 Order name: Labs collected and sent; Complete Time: 21:05 cp 07/15 20:51 Order name: O2 Per Protocol; Complete Time: 21:05 cp 07/15 20:51 Order name: O2 Sat Monitoring; Complete Time: 21:05 cp 07/15 23:21 Order name: Transfuse; Complete Time: 03:02 cp EC/30 21:45 Rate is 67 beats/min. Rhythm is regular. [place] interval is normal. QRS interval is normal. cp QT interval is normal. T waves are Inverted in lead aVR. Interpreted by me. Reviewed by me. Administered Medications: 07/16 02:31 Drug: Furosemide IVP 20 mg IVP once; give over 2 minutes prior to transfusion Route: cp4 IVP; Site: left antecubital; 03:00 Follow up: Response: No adverse reaction cp4 05:41 Drug: diphenhydrAMINE PO 25 mg PO once Route: PO; cp4 06:00 Follow up: Response: No adverse reaction cp4 05:42 Drug: Acetaminophen PO 1000 mg PO once Route: PO; cp4 06:00 Follow up: Response: No adverse reaction cp4 Disposition: 07/15 21:36 I was immediately available on-site in the Emergency Department for consultation in the ms3 care of the patient. 07/16 06:12 Co-signature as Attending Physician, Israel Saleh MD I agree with the assessment sp4 and plan of care. I reviewed the patient's care provided by Advanced Practice Provider \T\ agree w/ the diagnosis \T\ care plan. I personally saw the pt \T\ performed a substantive portion of the visit, incldng all aspects of the (History/Exam/Medical Decision Making). Disposition Summary: 07/16/24 06:37 Discharge Ordered Notes: Location: Home sp4 Problem: new sp4 Symptoms: have improved sp4 Condition: Fair sp4 Diagnosis - Acute symptomatic anemia, transfusion dependent anemia sp4 Followup: sp4 - With: Private Physician - When: 7 - 10 days - Reason: Recheck today's complaints Discharge Instructions: - Discharge Summary Sheet sp4 - Anemia sp4 Forms: - Patient Portal Instructions sp4 Signatures: Dispatcher [employer] EDMS Denny Teixeira PA PA cp Sims, Marcus, DO DO ms3 Neetu Thompson RN RN db Potepalov, Sergey, MD MD sp4 Belinda Lei cp4 Corrections: (The following items were deleted from the chart) 07/15 18:05 18:05 Allergies: Aspirin; db db 20:51 20:51 BASIC METABOLIC PANEL+C.LAB.BRZ ordered. EDMS EDMS 20:51 20:51 CBC+H.LAB.BRZ ordered. EDMS EDMS 20:51 20:51 HEPATIC FUNCTION+C.LAB.BRZ ordered. EDMS EDMS 20:51 20:51 MAGNESIUM+C.LAB.BRZ ordered. EDMS EDMS 20:51 20:51 PROBNP+C.LAB.BRZ ordered. EDMS EDMS 20:51 20:51 PROTIME (+INR)+COAG.LAB.BRZ ordered. EDMS EDMS 20:51 20:51 Troponin High Sensitivity+C.LAB.BRZ ordered. EDMS EDMS 20:51 20:51 TYPE AND SCREEN+BB.LAB.BRZ ordered. EDMS EDMS 20:51 20:51 PTT, ACTIVATED+COAG.LAB.BRZ ordered. EDMS EDMS 20:51 20:51 Chest Single View+RAD.RAD.BRZ ordered. EDMS EDMS
--- NOTE | 2024-07-16 06:38 | ER ---
Nurse's Notes [facility] Name: Rena Burch Age: 73 yrs Sex: Female : 1950 Arrival Date: 07/15/2024 Time: 17:33 Bed 15 Private MD: Diagnosis: Acute symptomatic anemia, transfusion dependent anemia Presentation: 07/15 18:03 Chief complaint: Patient states: SENT BY PROVIDER FOR ABNORMAL LABS BY DR. MIRANDA FOR db BLOOD TRANSFUSION. HAD A PARACENTESIS TODAY TODAY 4 TO 6 LITERS. Coronavirus screen: Client denies travel out of the [place] in the last 14 days. At this time, the client does not indicate any symptoms associated with coronavirus-19. Ebola Screen: Patient negative for fever greater than or equal to 101.5 degrees Fahrenheit, and additional compatible Ebola Virus Disease symptoms Patient denies exposure to infectious person. Patient denies travel to an Ebola-affected area in the 21 days before illness onset. No symptoms or risks identified at this time. Initial Sepsis Screen: Does the patient meet any 2 criteria? No. Patient's initial sepsis screen is negative. Does the patient have a suspected source of infection? No. Patient's initial sepsis screen is negative. Risk Assessment: Do you want to hurt yourself or someone else? Patient reports no desire to harm self or others. Onset of symptoms was July 15, 2024. 18:03 Method Of Arrival: Wheelchair db 18:03 Acuity: CHEIKH 3 db Triage Assessment: 18:05 General: Appears in no apparent distress. comfortable, Behavior is calm, cooperative. db Pain: Denies pain. Neuro: Level of Consciousness is awake, alert, obeys commands, Oriented to person, place, time. Respiratory: Airway is patent Respiratory effort is even, unlabored, Respiratory pattern is regular, symmetrical. Historical: - Allergies: 18:05 aspartame; db - PMHx: 18:05 fatty liver; Hypertension; COPD; Diabetes - IDDM; Paracentesis; Psoriatic Arthritis; db Liver failure (currently on liver transplant list); - Immunization history:: Adult Immunizations unknown. - Infectious Disease History:: Denies. - Social history:: Smoking status: Patient denies any tobacco usage or history of. Screenin:00 [facility] ED Fall Risk Assessment (Adult) History of falling in the last 3 months, ar6 including since admission No falls in past 3 months (0 pts) Confusion or Disorientation No (0 pts) Intoxicated or Sedated No (0 pts) Impaired Gait Yes (1 pt) Mobility Assist Device Used No (0 pt) Altered Elimination No (0 pt) Score/Fall Risk Level 0 - 2 = Low Risk Oriented to surroundings, Maintained a safe environment, Educated pt \T\ family on fall prevention, incl call for assistance when getting out of bed, Provided non-skid footwear, Hourly rounding (assess needs \T\ fall precautionary measures) done. Abuse screen: Denies threats or abuse. Denies injuries from another. Nutritional screening: No deficits noted. Tuberculosis screening: No symptoms or risk factors identified. Assessment: 20:00 General: Appears in no apparent distress. comfortable, Behavior is calm, cooperative, ar6 appropriate for age. Pain: Denies pain. Neuro: Level of Consciousness is awake, alert, obeys commands, Oriented to. Neuro: Level of Consciousness is Oriented to person, place, time, situation. Cardiovascular: Capillary refill < 3 seconds. Respiratory: Airway is patent. GI: Abdomen is round non-distended, Bowel sounds present X 4 quads. : No signs and/or symptoms were reported regarding the genitourinary system. EENT: Oral mucosa is moist. Derm: Skin is intact, is healthy with good turgor, Skin is dry, Skin is pink, warm \T\ dry. Musculoskeletal: 23:45 General: Appears in no apparent distress. comfortable, Behavior is calm, cooperative, cp4 appropriate for age. 07/16 00:30 Reassessment: Patient appears in no apparent distress at this time. Patient and/or cp4 family updated on plan of care and expected duration. Pain level reassessed. Patient is alert, oriented x 3, equal unlabored respirations, skin warm/dry/pink. Pain: Denies pain. Neuro: Level of Consciousness is awake, alert, obeys commands, Oriented to person, place, time, situation. Cardiovascular: No deficits noted. Respiratory: Airway is patent Respiratory effort is even, unlabored. GI: No signs and/or symptoms were reported involving the gastrointestinal system. : No signs and/or symptoms were reported regarding the genitourinary system. EENT: No signs and/or symptoms were reported regarding the EENT system. Derm: No signs and/or symptoms reported regarding the dermatologic system. Musculoskeletal: No signs and/or symptoms reported regarding the musculoskeletal system. 01:30 Reassessment: Patient appears in no apparent distress at this time. Patient and/or cp4 family updated on plan of care and expected duration. Pain level reassessed. Patient is alert, oriented x 3, equal unlabored respirations, skin warm/dry/pink. 02:15 Reassessment: See Blood Administration Record for vitals. cp4 02:30 Reassessment: Patient appears in no apparent distress at this time. Patient and/or cp4 family updated on plan of care and expected duration. Pain level reassessed. Patient is alert, oriented x 3, equal unlabored respirations, skin warm/dry/pink. 03:30 Reassessment: Patient appears in no apparent distress at this time. Patient and/or cp4 family updated on plan of care and expected duration. Pain level reassessed. Patient is alert, oriented x 3, equal unlabored respirations, skin warm/dry/pink. 04:30 Reassessment: Patient appears in no apparent distress at this time. Patient and/or cp4 family updated on plan of care and expected duration. Pain level reassessed. Patient is alert, oriented x 3, equal unlabored respirations, skin warm/dry/pink. Vital Signs: 07/15 18:03 BP 137 / 48; Pulse 68; Resp 18; Temp 97.6; Pulse Ox 100% ; Weight 78.47 kg; Height 5 db ft. 5 in. ; 20:00 BP 133 / 54; Pulse 66; Resp 16; Temp 98.1; Pulse Ox 98% on R/A; Pain 0/10; ar6 22:00 BP 116 / 58; Pulse 62; Resp 16; Pulse Ox 98% on R/A; ar6 23:00 BP 137 / 58; Pulse 64; Resp 18; Pulse Ox 97% on R/A; ar6 07/16 00:00 BP 155 / 45; Pulse 64; Resp 16; Pulse Ox 100% ; cp4 01:00 BP 148 / 46; Pulse 68; Resp 16; Pulse Ox 98% ; cp4 02:00 BP 126 / 42; Pulse 63; Resp 16; Pulse Ox 100% ; cp4 03:00 BP 139 / 46; Pulse 63; Resp 16; Pulse Ox 100% ; cp4 04:00 BP 132 / 53; Pulse 62; Resp 18; Pulse Ox 99% ; cp4 05:00 BP 132 / 42; Pulse 62; Resp 18; Pulse Ox 99% ; cp4 06:30 BP 129 / 42; Pulse 61; Resp 18; Pulse Ox 99% ; cp4 08 18:03 Body Mass Index 28.79 (78.47 kg, 165.1 cm) db 20:00 Pain Scale: Adult ar6 ED Course: 07/15 17:36 Patient arrived in ED. mg5 17:39 Denny Teixeira PA is PHCP. cp 17:39 Boogie Archer DO is Attending Physician. cp 18:05 Triage completed. db 18:05 Arm band placed on left wrist. db 20:25 Denita Reese, RN is Primary Nurse. ar6 21:05 Ptt, Activated Sent. ar6 21:05 Basic Metabolic Panel Sent. ar6 21:05 CBC with Diff Sent. ar6 21:05 LFT's Sent. ar6 21:05 Magnesium Sent. ar6 21:05 NT PRO-BNP Sent. ar6 21:05 PT-INR Sent. ar6 21:05 Troponin HS Sent. ar6 21:21 Type And Screen Sent. ar6 21:41 XRAY Chest (1 view) In Process Unspecified. EDMS 22:00 No apparent distress. Awaiting lab results. ar6 22:00 Patient has correct armband on for positive identification. Bed in low position. Call ar6 light in reach. Side rails up X2. Provided Education on: TS. Client placed on continuous cardiac and pulse oximetry monitoring. NIBP monitoring applied. Door closed. Noise minimized. Lights dimmed. Warm blanket given. 22:00 No provider procedures requiring assistance completed. Inserted saline lock: 20 gauge ar6 in left antecubital area, using aseptic technique. Blood collected. Flushed with 10 mL NS. 23:12 Type And Screen Sent. ar6 23:59 Belinda Lei is Primary Nurse. cp4 07/16 05:29 Attending Physician role handed off by Boogie Archer DO sp4 05:29 Israel Saleh MD is Attending Physician. sp4 06:51 intact, bleeding controlled, No redness/swelling at site. Pressure dressing applied. cp4 Administered Medications: 02:31 Drug: Furosemide IVP 20 mg IVP once; give over 2 minutes prior to transfusion Route: cp4 IVP; Site: left antecubital; 03:00 Follow up: Response: No adverse reaction cp4 05:41 Drug: diphenhydrAMINE PO 25 mg PO once Route: PO; cp4 06:00 Follow up: Response: No adverse reaction cp4 05:42 Drug: Acetaminophen PO 1000 mg PO once Route: PO; cp4 06:00 Follow up: Response: No adverse reaction cp4 Medication: 06:51 VIS not applicable for this client. cp4 Outcome: 06:37 Discharge ordered by . sp4 06:51 Discharged to home via wheelchair, cp4 06:51 Condition: stable 06:51 Discharge instructions given to patient, Instructed on discharge instructions, follow up and referral plans. Demonstrated understanding of instructions, follow-up care, 06:53 Patient left the ED. cp4 Signatures: Dispatcher [employer] EDMS Denny Teixeira PA PA cp Benton, Danielle, RN RN Israel Dunn MD MD sp4 Nieves Jamison mg5 Belinda Lei cp4 Denita Reese RN RN ar6 Corrections: (The following items were deleted from the chart) 07/15 18:05 18:05 Allergies: Aspirin; jose garcia
[2024-07-16 07:01] VITALS: TEMP 98.1
[2024-07-16 07:09] VITALS: O2SAT 99
[2024-07-16 07:11] VITALS: BP 129/42
--- NOTE | 2024-07-16 13:59 | EKG ---
Test Date: 2024-07-15 Test Time: 21:40:03 [employer]: FARHAN MEASUREMENT RESULTS: Intervals: Rate: 67 CT: 184 QRSD: 82 QT: 434 QTc: 458 [place]: P: 66 CT: 184 QRS: 55 T: 66 INTERPRETIVE STATEMENTS: Normal sinus rhythm with sinus arrhythmia Normal ECG Compared to ECG 06/04/2024 10:16:47 No significant changes Electronically Signed On 07-16-24 13:57:43 CDT by Renato Mendez
== END 2024-07-16 06:53 | disposition home or self-care (01) ==
LOC: ER 17:33
PROC: 30233N1 Transfusion of Nonautologous Red Blood Cells into Peripheral Vein, Percutaneous Approach (ICD-10-PCS; principal; 2024-07-16)
DX: D64.89 Other specified anemias (principal)
CPT/HCPCS: 93005; 85025; 80048; 36415; 86900; 83735; 86850; 85610; 86901; 80076; 85730; 86920; 84484; 83880; 71045; 96374; 99284; 36430; J1940; P9016; J7050

== ENCOUNTER 2024-07-19 10:55 | Observation (INO) | payer OTHER, BC ==
[2024-07-19 11:19] LABS: Absolute Eosinophils 0.2 K/uL (0-0.5); Absolute Lymphocytes (CBC) 0.4 K/uL (0.7-4.9); Absolute Monocytes 0.4 K/uL (0.1-1.3); Absolute Neutrophil 2.4 K/uL (1.8-8.0); Basophils % 0.6 % (0-1.3); Eosinophils % 6.3 % (0-4.4); Hematocrit 30.7 % (36.0-45.0); Lymphocytes % 11.7 % (15.3-44.8); MCH 29.5 pg (27.0-35.0); MCHC 32.5 g/dL (32.0-36.0); MCV 90.8 fL (80-100); MPV 8.7 fL (7.6-11.3); Monocytes % 12.1 % (3.3-12.3); Neutrophils % 69.3 % (41.7-73.7); RBC Red Blood Cell Count 3.38 M/uL (3.86-4.86)
[2024-07-19 11:21] LABS: Platelets 54 thou/uL (152-406)
--- NOTE | 2024-07-19 11:31 | RAD REPORT ---
EXAM DESCRIPTION: RADChest Single View07/19/2024 11:26 am CLINICAL HISTORY: ams COMPARISON: Chest Single View dated 07/15/2024; Chest Single View dated 06/04/2024; Chest Single View dated 02/05/2024; Chest Single View dated 01/15/2024 TECHNIQUE: Portable AP view of the chest. FINDINGS: The lungs are clear. No pneumothorax or effusion. The cardiomediastinal contours are unre markable. IMPRESSION: No acute cardiopulmonary process.
--- NOTE | 2024-07-19 11:32 | RAD REPORT ---
EXAM DESCRIPTION: Shoulder Right 2 View - 07/19/2024 11:26 am CLINICAL HISTORY: PAIN COMPARISON: No comparisons TECHNIQUE: Internal and external rotation views of the right shoulder were obtained. FINDINGS: There is no fracture or dislocation. AC joint moderate degenerative changes. No acute or s uspicious findings. IMPRESSION: No acute osseus abnormality. Moderate AC joint degenerative changes.
--- NOTE | 2024-07-19 11:33 | RAD REPORT ---
EXAM DESCRIPTION: RAD - Hip Right 2 View - 07/19/2024 11:26 am CLINICAL HISTORY: PAIN COMPARISON: No comparisons TECHNIQUE: Right hip, AP and frog-leg views. FINDINGS: There is no fracture or dislocation. Moderate hip joint degenerative changes. No acute or destructive bony process seen. IMPRESSION: No acute findings of the right hip. Moderate degenerative changes.
--- NOTE | 2024-07-19 11:47 | RAD REPORT ---
EXAM DESCRIPTION: CT - [id number] - 07/19/2024 11:28 am CLINICAL HISTORY: TRAUMA COMPARISON: Head C Spine Mpr Wo Con dated 06/04/2024; Chest Single View dated 07/19/2024 TECHNIQUE: Axial thin cut noncontrast CT images of the head were obtained. Axial thin cut noncontrast CT images of the cervical spine were obtained. Multiplanar reformatted images were generated and reviewed. All CT scans are performed using dose optimization technique as appropriate and may include automated exposure control or mA/KV adjustment according to patient size. FINDINGS: CT HEAD WITHOUT CONTRAST: No acute hemorrhage, hydrocephalus or extra-axial collection is identified. Patchy periventricular, d eep white matter, and subcortical areas of hypoattenuation are stable. These are nonspecific, may rel ate to chronic small vessel ischemic changes. No areas of brain edema or midline shift. The paranasal sinuses and mastoids are clear.The calvarium is intact. CT CERVICAL SPINE WITHOUT CONTRAST: No fracture or subluxation.No prevertebral soft tissues swelling is identified. Layering small to mod erate left pleural effusion. IMPRESSION: No acute traumatic intracranial or cervical spine findings. Stable nonspecific white matter hypodensities as above. Layering small to moderate left pleural effusion.
[2024-07-19 11:51] LABS: Albumin 3.2 g/dL (3.4-5.0); Albumin/Globulin Ratio 1.1 (1.1-1.8); Bilirubin Direct 0.7 mg/dL (0-0.2); Bilirubin Indirect, Calculated 2.5 mg/dL (0.2-0.8); Bilirubin Total 3.2 mg/dL (0.2-1.0); Globulin 2.8 g/dL (2.3-3.5); Magnesium 2.2 mg/dL (1.6-2.4); Troponin High Sensitivity 17.8 pg/mL (<58.9)
[2024-07-19 12:16] LABS: Specific Gravity 1.014 (1.005-1.030); Sqamous Epithelial <5 /HPF (None Seen); Urine Bacteria >50 /HPF (<20); Urine Bilirubin NEGATIVE (Negative); Urine Blood 1+ (Negative); Urine Clarity Extremely Turbid (Clear); Urine Color Yellow (Yellow); Urine Culture Reflex Order REFLEXED; Urine Glucose NEGATIVE (Negative); Urine Ketones NEGATIVE (Negative); Urine Microscopic Reflex YN ORDER UMIC; Urine Mucus Slight /HPF (None Seen); Urine Nitrite NEGATIVE (Negative); Urine Protein TRACE (Negative); Urine Urobilinogen Normal (Normal); Urine WBC >50 /HPF (<5); Urine WBC Clump Many /HPF (None Seen); Urine pH 5.5 (5.0-7.0)
[2024-07-19] MEDS ORDERED: NA CHLORIDE 0.9% 100 ML ONE (14:04)
[2024-07-19] MEDS ORDERED: CEFTRIAXONE 2000 MG/VIAL ONE (14:04)
--- NOTE | 2024-07-19 15:00 | ER ---
Nurse's Notes [facility] Name: Rena Burch Age: 73 yrs Sex: Female : 1950 Arrival Date: 07/19/2024 Time: 10:55 Bed 7 Private MD: Diagnosis: Altered mental status;Generalized weakness;Urinary tract infection Presentation: 07/19 10:57 Chief complaint: EMS states: FALL AT HOME, RLE PAIN. Coronavirus screen: At this time, bp the client does not indicate any symptoms associated with coronavirus-19. Ebola Screen: No symptoms or risks identified at this time. Initial Sepsis Screen: Does the patient meet any 2 criteria? No. Patient's initial sepsis screen is negative. Does the patient have a suspected source of infection? No. Patient's initial sepsis screen is negative. Risk Assessment: Do you want to hurt yourself or someone else? Patient reports no desire to harm self or others. Onset of symptoms was July 19, 2024 at 10:30. Care prior to arrival: IV initiated. 22 GA, in the left hand, Glucose check: 232. 10:57 Method Of Arrival: EMS: [facility] bp 10:57 Acuity: CHEIKH 3 bp Triage Assessment: 10:58 General: Appears in no apparent distress. Behavior is calm, cooperative, appropriate bp for age. Pain: Complains of pain in right leg. EENT: No deficits noted. Neuro: Level of Consciousness is awake, alert, obeys commands, Oriented to Appropriate for age. Cardiovascular: No deficits noted. Respiratory: No deficits noted. GI: No signs and/or symptoms were reported involving the gastrointestinal system. : No signs and/or symptoms were reported regarding the genitourinary system. Derm: No deficits noted. Musculoskeletal: Reports pain in right leg. Historical: - Allergies: 10:58 aspartame; bp - PMHx: 10:58 COPD; Diabetes - IDDM; Hypertension; fatty liver; Paracentesis; Liver failure bp (currently on liver transplant list); Psoriatic Arthritis; - Immunization history:: Adult Immunizations up to date. - Infectious Disease History:: Denies. - Social history:: Smoking status: Patient denies any tobacco usage or history of. - Family history:: not pertinent. Screenin:00 [facility] ED Fall Risk Assessment (Adult) History of falling in the last 3 months, bp including since admission Yes- single mechanical fall (1 pt) Confusion or Disorientation No (0 pts) Intoxicated or Sedated No (0 pts) Impaired Gait No (0 pts) Mobility Assist Device Used No (0 pt) Altered Elimination No (0 pt) Score/Fall Risk Level 0 - 2 = Low Risk. Abuse screen: Denies threats or abuse. Denies injuries from another. Nutritional screening: No deficits noted. Tuberculosis screening: No symptoms or risk factors identified. Assessment: 11:11 General: Appears in no apparent distress. Behavior is calm, cooperative. Pain: mb9 Complains of pain in right arm and right leg Pain does not radiate. Pain currently is 8 out of 10 on a pain scale. Quality of pain is described as throbbing, Pain began suddenly. Neuro: Rodriguez Agitation-Sedation Scale (RASS): 0 - Alert and Calm Level of Consciousness is awake, alert, obeys commands, Oriented to person, place, time, situation, Appropriate for age. Cardiovascular: Heart tones S1 S2 present Patient's skin is warm and dry. Respiratory: Airway is patent Respiratory effort is even, unlabored, Respiratory pattern is regular, symmetrical, Breath sounds are clear bilaterally. GI: Abdomen is round non-distended, Bowel sounds present X 4 quads. Abd is soft and non tender X 4 quads. : No signs and/or symptoms were reported regarding the genitourinary system. EENT: No signs and/or symptoms were reported regarding the EENT system. Derm: Skin is pink, warm \T\ dry. Musculoskeletal: Range of motion: intact in all extremities. 12:35 Reassessment: No changes from previously documented assessment. Patient and/or family mb9 updated on plan of care and expected duration. Pain level reassessed. Patient is alert, oriented x 3, equal unlabored respirations, skin warm/dry/pink. 13:12 Reassessment: ERP notified of pts BP of 205/55. mb9 14:10 Reassessment: No changes from previously documented assessment. Patient and/or family mb9 updated on plan of care and expected duration. Pain level reassessed. Patient is alert, oriented x 3, equal unlabored respirations, skin warm/dry/pink. 16:00 Reassessment: No changes from previously documented assessment. Patient and/or family mb9 updated on plan of care and expected duration. Pain level reassessed. Patient is alert, oriented x 3, equal unlabored respirations, skin warm/dry/pink. Vital Signs: 10:57 BP 199 / 71; Pulse 60; Resp 16; Temp 98; Pulse Ox 99% ; bp 11:55 BP 189 / 56; Pulse 57; Resp 18; Pulse Ox 100% on R/A; mb9 13:11 BP 205 / 55; Pulse 59; Resp 16; Pulse Ox 100% on R/A; mb9 13:45 BP 183 / 60; Pulse 55; Resp 18; Pulse Ox 100% on R/A; mb9 14:54 BP 148 / 56; Pulse 55; Resp 16; Pulse Ox 100% on R/A; mb9 16:00 BP 199 / 78; Pulse 59; Resp 16; Pulse Ox 100% on R/A; mb9 16:26 BP 172 / 55; Pulse 60; Resp 16; Pulse Ox 100% on R/A; mb9 ED Course: 10:57 Patient arrived in ED. bp 10:57 Herminia Treadwell RN is Primary Nurse. mb9 10:58 Milton Marlow MD is Attending Physician. rt 10:58 Triage completed. bp 10:58 Arm band placed on. bp 11:00 Patient has correct armband on for positive identification. bp 11:00 Maintain EMS IV. Dressing intact. Good blood return noted. Site clean \T\ dry. Gauge \T\ bp site: 22 LEFT HAND. Flushed with 10 mL NS. 11:11 AMMONIA Sent. mb9 11:11 Basic Metabolic Panel Sent. mb9 11:11 CBC with Diff Sent. mb9 11:11 LFT's Sent. mb9 11:11 Magnesium Sent. mb9 11:11 Troponin HS Sent. mb9 11:11 Initial lab(s) drawn, by me, sent to lab. mb9 11:12 Provided Education on: press call light if needing anything. mb9 11:12 No provider procedures requiring assistance completed. mb9 11:28 XRAY Chest (1 view) In Process Unspecified. EDMS 11:28 Shoulder Right (2 View) XRAY In Process Unspecified. EDMS 11:28 Hip Right 2 View XRAY In Process Unspecified. EDMS 11:30 CT Head C Spine In Process Unspecified. EDMS 11:30 Urine collected: straight cath specimen, clear, EKG done, by ED staff, reviewed by Milton Marlow MD. 13:31 Urine Culture Sent. mb9 14:59 Octavio Nunn is Hospitalizing Provider. rt 15:00 Cleaned of incontinence. mb9 16:27 Patient admitted, IV remains in place. mb9 Administered Medications: 14:06 Drug: Rocephin - Rocephin (cefTRIAXone) IVPB 2 grams IVPB once over 30 mins; (mix in mb9 100 mL NS) Route: IVPB; Infused Over: 30 mins; Site: right forearm; 16:15 Follow up: Response: No adverse reaction; IV Status: Completed infusion mb9 16:15 Drug: hydrALAZINE IVP 10 mg IVP once Route: IVP; Site: right forearm; mb9 16:27 Follow up: Response: No adverse reaction mb9 Medication: 11:12 VIS not applicable for this client. mb9 Outcome: 14:59 Decision to Hospitalize by Provider. rt 16:27 Admitted to Tele accompanied by tech, room 401, mb9 16:27 Condition: stable 16:27 Instructed on the need for admit, 16:55 Patient left the ED. mb9 Signatures: Dispatcher [employer] EDMinh Tamayo RN RN bp Wilkerson, Mary Beth, RN RN Milton Ansari MD MD rt
--- NOTE | 2024-07-19 15:00 | EDPHYS ---
Physician Documentation [facility] Name: Rena Burch Age: 73 yrs Sex: Female : 1950 Arrival Date: 07/19/2024 Time: 10:55 Bed 7 Private MD: ED Physician Milton Marlow HPI: 07/19 13:52 This 73 yrs old Female presents to ER via EMS with complaints of Fall Injury. rt 13:52 Patient presents to the ED with a fall at home. This was reportedly due to confusion. rt Patient is not at her baseline mental status. Supposedly reported pain to the right arm, right leg, denies this currently. Denies other acute complaints at this time, symptoms are moderate in severity, no other aggravating alleviating factors.. Historical: - Allergies: 10:58 aspartame; bp - PMHx: :58 COPD; Diabetes - IDDM; Hypertension; fatty liver; Paracentesis; Liver failure bp (currently on liver transplant list); Psoriatic Arthritis; - Immunization history:: Adult Immunizations up to date. - Infectious Disease History:: Denies. - Social history:: Smoking status: Patient denies any tobacco usage or history of. - Family history:: not pertinent. ROS: 13:52 Constitutional: Negative for fever, chills, and weight loss, Cardiovascular: Negative rt for chest pain, palpitations, and edema, Respiratory: Negative for shortness of breath, cough, wheezing, and pleuritic chest pain, Abdomen/GI: Negative for abdominal pain, nausea, vomiting, diarrhea, and constipation, MS/Extremity: Negative for injury and deformity, Skin: Negative for injury, rash, and discoloration, 13:52 Neuro: Positive for altered mental status, Negative for loss of consciousness, Exam: 13:52 Constitutional: This is a well developed, well nourished patient who is awake, alert, rt and in no acute distress. Head/Face: Normocephalic, atraumatic. Chest/axilla: Normal chest wall appearance and motion. Nontender with no deformity. No lesions are appreciated. Cardiovascular: Regular rate and rhythm with a normal S1 and S2. No gallops, murmurs, or rubs. Normal PMI, no JVD. No pulse deficits. Respiratory: Lungs have equal breath sounds bilaterally, clear to auscultation and percussion. No rales, rhonchi or wheezes noted. No increased work of breathing, no retractions or nasal flaring. Abdomen/GI: Soft, non-tender, with normal bowel sounds. No distension or tympany. No guarding or rebound. No evidence of tenderness throughout. Skin: Warm, dry with normal turgor. Normal color with no rashes, no lesions, and no evidence of cellulitis. MS/ Extremity: Pulses equal, no cyanosis. Neurovascular intact. Full, normal range of motion. 13:52 ECG was reviewed by the Attending Physician. Vital Signs: 10:57 BP 199 / 71; Pulse 60; Resp 16; Temp 98; Pulse Ox 99% ; bp 11:55 BP 189 / 56; Pulse 57; Resp 18; Pulse Ox 100% on R/A; mb9 13:11 BP 205 / 55; Pulse 59; Resp 16; Pulse Ox 100% on R/A; mb9 13:45 BP 183 / 60; Pulse 55; Resp 18; Pulse Ox 100% on R/A; mb9 14:54 BP 148 / 56; Pulse 55; Resp 16; Pulse Ox 100% on R/A; mb9 16:00 BP 199 / 78; Pulse 59; Resp 16; Pulse Ox 100% on R/A; mb9 16:26 BP 172 / 55; Pulse 60; Resp 16; Pulse Ox 100% on R/A; mb9 MDM: 10:58 Patient medically screened. rt 16:08 Differential diagnosis: Intracranial hemorrhage, UTI, hepatic encephalopathy,. Data rt reviewed: vital signs, nurses notes, lab test result(s), EKG, radiologic studies. Consideration of Admission/Observation Patient was admitted/placed on observation. Management of patient was discussed with the following: Hospitalist: Agrees to admit. I considered the following discharge prescriptions or medication management in the emergency department Medications were administered in the Emergency Department. See MAR. Independent interpretation of the following test(s) in the Emergency Department CT Scan: My interpretation is No intracranial hemorrhage seen on interpretation of CT scan images. Care significantly affected by the following chronic conditions: CLD. Counseling: I had a detailed discussion with the patient and/or guardian regarding the historical points, exam findings, and any diagnostic results supporting the discharge/admit diagnosis, lab results, radiology results, the need for further work-up and treatment in the hospital. Response to treatment: the patient's symptoms have mildly improved after treatment. 07/19 10:59 Order name: Basic Metabolic Panel; Complete Time: 13:44 rt 07/19 10:59 Order name: CBC with Diff; Complete Time: 11:50 rt 07/19 10:59 Order name: LFT's; Complete Time: 13:44 rt 07/19 10:59 Order name: Magnesium; Complete Time: 13:44 rt 07/19 10:59 Order name: Troponin HS; Complete Time: 13:44 rt 07/19 10:59 Order name: AMMONIA; Complete Time: 11:50 rt 07/19 11:56 Order name: Urinalysis w/ reflexes; Complete Time: 13:44 mb9 07/19 12:23 Order name: Urine Culture EDMS 07/19 15:51 Order name: CBC with Automated Diff EDMS 07/19 15:51 Order name: CBC with Automated Diff EDMS 07/19 15:51 Order name: CBC with Automated Diff EDMS 07/19 15:51 Order name: CBC with Automated Diff EDMS 07/19 15:51 Order name: CBC with Automated Diff EDMS 07/19 15:51 Order name: CBC with Automated Diff EDMS 07/19 15:51 Order name: CBC with Automated Diff EDMS 07/19 15:52 Order name: CBC with Automated Diff EDMS 07/19 15:52 Order name: Comprehensive Metabolic Panel EDMS 07/19 15:52 Order name: Comprehensive Metabolic Panel EDMS 07/19 15:52 Order name: Comprehensive Metabolic Panel EDMS 07/19 15:52 Order name: Comprehensive Metabolic Panel EDMS 07/19 15:52 Order name: Comprehensive Metabolic Panel EDMS 07/19 15:52 Order name: Comprehensive Metabolic Panel EDMS 07/19 15:52 Order name: Comprehensive Metabolic Panel EDMS 07/19 15:52 Order name: Comprehensive Metabolic Panel EDMS 07/19 15:52 Order name: Magnesium EDMS 07/19 15:52 Order name: Magnesium EDMS 07/19 15:52 Order name: Magnesium EDMS 07/19 15:52 Order name: Magnesium EDMS 07/19 15:52 Order name: Magnesium EDMS 07/19 15:52 Order name: Magnesium EDMS 07/19 15:52 Order name: Magnesium EDMS 07/19 15:52 Order name: Magnesium EDMS 07/19 15:52 Order name: Phosphorus EDMS 07/19 15:52 Order name: Phosphorus EDMS 07/19 15:52 Order name: Phosphorus EDMS 07/19 15:52 Order name: Phosphorus EDMS 07/19 15:52 Order name: Phosphorus EDMS 07/19 15:52 Order name: Phosphorus EDMS 07/19 15:52 Order name: Phosphorus EDMS 07/19 15:52 Order name: Phosphorus EDMS 07/19 15:52 Order name: Troponin High Sensitivity EDMS 07/19 15:52 Order name: Troponin High Sensitivity EDMS 07/19 15:52 Order name: Troponin High Sensitivity EDMS 07/19 10:59 Order name: XRAY Chest (1 view); Complete Time: 11:50 rt 07/19 10:59 Order name: CT Head C Spine; Complete Time: 11:50 rt 07/19 10:59 Order name: Shoulder Right (2 View) XRAY; Complete Time: 11:50 rt 07/19 10:59 Order name: Hip Right 2 View XRAY; Complete Time: 11:50 rt 07/19 10:59 Order name: EKG; Complete Time: 10:59 rt 07/19 10:59 Order name: Cardiac monitoring; Complete Time: 11:11 rt 07/19 10:59 Order name: EKG - Nurse/Tech; Complete Time: 11:11 rt 07/19 10:59 Order name: IV Saline Lock; Complete Time: 11:03 rt 07/19 10:59 Order name: Labs collected and sent; Complete Time: 11:11 rt 07/19 10:59 Order name: O2 Per Protocol; Complete Time: 11:03 rt 07/19 10:59 Order name: O2 Sat Monitoring; Complete Time: 11:03 rt 07/19 10:59 Order name: Straight Cath; Complete Time: 11:42 rt EC:52 Rate is 58 beats/min. Rhythm is regular, Sinus bradycardia with No ectopy. QRS [place] is rt Normal. [place] interval is normal. QRS interval is normal. QT interval is normal. No Q waves. T waves are Normal. No ST changes noted. Interpreted by me. Administered Medications: 14:06 Drug: Rocephin - Rocephin (cefTRIAXone) IVPB 2 grams IVPB once over 30 mins; (mix in mb9 100 mL NS) Route: IVPB; Infused Over: 30 mins; Site: right forearm; 16:15 Follow up: Response: No adverse reaction; IV Status: Completed infusion mb9 16:15 Drug: hydrALAZINE IVP 10 mg IVP once Route: IVP; Site: right forearm; mb9 16:27 Follow up: Response: No adverse reaction mb9 Disposition Summary: 07/19/24 14:59 Hospitalization Ordered Notes: Hospitalization Status: Inpatient Admission rt Provider: Octavio Nunn rt [facility] rt Condition: Stable rt Problem: new rt Symptoms: have improved rt Bed/Room Type: Standard rt Room Assignment: 401(07/19/24 16:16) [id number] Diagnosis - Altered mental status rt - Generalized weakness rt - Urinary tract infection rt Forms: - Medication Reconciliation Form rt - SBAR form rt - Leadership Thank You Letter rt Signatures: Dispatcher [employer] Bharati Fowler RN RN iw Minh Garcia RN RN bp Wilkerson, Mary Beth, RN RN mb9 Milton Marlow MD MD rt Talisha Bateman jr12 Corrections: (The following items were deleted from the chart) 10:59 10:59 Hip Right 2 View+RAD.RAD.[email or web address] ordered. [facility] 16:16 14:59 rt jr12
--- NOTE | 2024-07-19 15:51 | P.HP ---
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 She has had multiple episodes of hepatic encephalopathy and required scheduled paracentesis on . Today, her family brought her to the ED after she had fallen at home. She reports not remembering falling but knows there is alot of things she does not remember. Significant labs Albumin 73, T. bili 2.2, direct bili 0.7, indirect bili 2.5, AST 47, platelets 54. UA suggestive of infectious process. On evaluation, noted elevated blood pressure with SBP > 200, abdomen distended, with no acute distress. Chest x-ray reports " No acute cardiopulmonary process." CT head reports "No acute hemorrhage, hydrocephalus or extra-axial collection is identified. Patchy periventricular, deep white matter, and subcortical areas of hypoattenuation are stable. These are nonspecific, may relate to chronic small vessel ischemic changes. No areas of brain edema or midline shift. The paranasal sinuses and mastoids are clear.The calvarium is intact." CT cervical spine reports "No fracture or subluxation.No prevertebral soft tissues swelling is identified. Layering small to moderate left pleural effusion. IMPRESSION: No acute traumatic intracranial or cervical spine findings. Stable nonspecific white matter hypodensities as above. Layering small to moderate left pleural effusion." Right hip x-ray reports "No acute findings of the right hip. Moderate dege nerative changes." Right shoulder x-ray reports "No acute osseus abnormality. Moderate AC joint degenerative changes." Rena will be admitted to hospitalist service for further evaluation and treatme nt. Allergies aspartame Allergy (Verified 07/08/24 08:09) Nausea/Vomiting nutra sweet Allergy (Uncoded 07/08/24 08:09) Nausea/Vomiting Home Medications: Atorvastatin Calcium 10 mg PO BEDTIME 07/01/21 Omeprazole [Prilosec] 40 mg PO DAILY 07/01/21 Amlodipine [Norvasc*] 1 tab PO DAILY 12/18/23 Ensure Max Protein 330 ml PO BID can 01/15/24 Ferrous Sulfate [Ferrous Sulfate*] 325 mg PO DAILY tab 01/15/24 Furosemide [Lasix*] 40 mg PO BIDL #60 tab 01/15/24 Iron/FA/Vit B-Com W/C [Hemocyte Plus*] 1 tab PO DAILY WITH BREAKFAST #30 tab 01/15/24 Metoprolol Tartrate [Lopressor*] 50 mg PO BID #60 tab 01/15/24 Rifaximin [Xifaxan] 550 mg PO BID #60 01/15/24 Spironolactone [Aldactone*] 25 mg PO DAILY #30 tab 01/15/24 guaiFENesin [Robitussin 100MG/5ML*] 10 ml PO QIDP PRN #20 01/15/24 Lactulose [Cephulac*] 30 ml PO BID 06/04/24 Silver Sulfadiazine Crm [Silvadene*] 1 appl TOP BID 30 Days #1 tube 06/09/24 - Past Medical/Surgical History Diabetic: Yes -: CirrhosisNASH -: Diabetes mellitus type 2 -: Hypertension -: Anemia -: Psoriatic arthritis -: COPD -: CKD IV (Dr. Pearce/ Dr. Nicholson) -: LIZETTE Mastectomy and reconstruction -: Hysterectomy -: Right Ankle Sx -: Right Wrist Sx Psychosocial/ Personal History: Lives at home with family, daughter - Family History Father -: Heart disease Mother -: Diabetes, Cancer Notes: Breast - Social History Alcohol use: No CD- Drugs: No Caffeine use: Yes Review of Systems General: Weakness Physical Examination - Physical Exam General: Alert, In no apparent distress HEENT: Atraumatic, Normocephalic, PERRLA Neck: Supple, 2+ carotid pulse no bruit Respiratory: Clear to auscultation bilaterally, Normal air movement Cardiovascular: Normal pulses, Regular rate/rhythm, Normal S1 S2 Capillary refill: <2 Seconds Gastrointestinal: Normal bowel sounds, Soft and benign, Distended Musculoskeletal: No clubbing Integumentary: No rashes Neurological: Normal speech, Normal tone - Studies Laboratory Data (last 24 hrs) 07/19/24 07/19/24 11:07 11:07 WBC 3.50 L Hgb 10.0 L Hct 30.7 L Plt Count 54 L Sodium 142 Potassium 4.0 BUN 46 H Creatinine 1.74 H Glucose 244 H Magnesium 2.2 Total Bilirubin 3.2 H AST 47 H ALT 25 Alkaline Phosphatase 115 Assessment and Plan - Plan Assessment and Plan 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 bili 3.2, D bili 0.7, Indirect bilirubin 2.5, ammonia 76, platelets 54 -Lactulose and Xifaxan -Schedule paracentesis on Fridays -Gentle IVF Anemia -H&H 09/14 -Transfuse as needed UTI -Follow culture -History of ESBL -Merrem Acute on chronic kidney disease -BUN/creatinine 46/1.74, GFR 31 Diabete mellitus- IDDM -Serum glucose 244 -Accu-Chek with sliding scale insulin COPD HTN Psoriatic arthritis -Continue home medications -Supportive care DVT ppx SCD Full code LOS 2 days Discharge Plan: Home Plan to discharge in: 48 Hours - Advance Directives Does patient have a Living Will: No Does patient have a Durable POA for Healthcare: No
[2024-07-19] MEDS ORDERED: HYDRALAZINE HCL 20 MG/ML VIAL ONE (16:13)
[2024-07-19] MEDS: INSULIN REGULAR (HUMAN) 100 UNIT/ML SQ SCH (16:30)
[2024-07-19] MEDS ORDERED: HEPARIN 5000 UNIT/ML 1 ML VIAL SQ SCH (17:00)
[2024-07-19 17:25] VITALS: O2SAT 99
[2024-07-19 18:24] VITALS: BMI 27.4
[2024-07-19] MEDS ORDERED: HYDRALAZINE HCL 20 MG/ML VIAL IV PRN (20:00)
[2024-07-19] MEDS: Meropenem 500 MG in NA CHLORIDE 0.9% 100 ML IV SCH (20:37)
[2024-07-19] MEDS: NA CHLORIDE 0.9% 500 ML IV SCH (20:38)
[2024-07-19] MEDS: LACTULOSE 20 GM/30 ML UCUP PO SCH (20:38)
[2024-07-19] MEDS: Rifaximin 550 MG Tab PO SCH (20:50)
[2024-07-20 06:47] LABS: Absolute Eosinophils 0.2 K/uL (0-0.5); Absolute Lymphocytes (CBC) 0.4 K/uL (0.7-4.9); Absolute Monocytes 0.5 K/uL (0.1-1.3); Absolute Neutrophil 2.5 K/uL (1.8-8.0); Basophils % 0.7 % (0-1.3); Eosinophils % 4.9 % (0-4.4); Hematocrit 24.3 % (36.0-45.0); Lymphocytes % 9.8 % (15.3-44.8); MCH 29.6 pg (27.0-35.0); MCHC 33.1 g/dL (32.0-36.0); MCV 89.4 fL (80-100); MPV 8.3 fL (7.6-11.3); Monocytes % 15.1 % (3.3-12.3); Neutrophils % 69.5 % (41.7-73.7); Platelets 53 thou/uL (152-406); RBC Red Blood Cell Count 2.71 M/uL (3.86-4.86); Red Cell Distribution Width 16.8 % (12.1-15.2)
[2024-07-20 07:06] LABS: Albumin 2.5 g/dL (3.4-5.0); Anion Gap 12.3 mEq/L (5.0-15.0); Globulin 2.5 g/dL (2.3-3.5); Phosphorus 3.4 mg/dL (2.5-4.9); Potassium 4.3 mEq/L (3.5-5.1)
[2024-07-20] MEDS: SPIRONOLACTONE 25 MG TABLET PO SCH (08:12)
[2024-07-20] MEDS: Meropenem 500 MG in NA CHLORIDE 0.9% 100 ML IV SCH (08:13)
[2024-07-20 08:14] VITALS: BP 150/58
[2024-07-20 08:24] VITALS: TEMP 97.8
--- NOTE | 2024-07-20 11:03 | P.DS ---
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 She has had multiple episodes of hepatic encephalopathy and required scheduled paracentesis on . Today, her family brought her to the ED after she had fallen at home. She reports not remembering falling but knows there is alot of things she does not remember. Significant labs Albumin 73, T. bili 2.2, direct bili 0.7, indirect bili 2.5, AST 47, platelets 54. UA suggestive of infectious process. On evaluation, noted elevated blood pressure with SBP > 200, abdomen distended, with no acute distress. Chest x-ray reports " No acute cardiopulmonary process." CT head reports "No acute hemorrhage, hydrocephalus or extra-axial collection is identified. Patchy periventricular, deep white matter, and subcortical areas of hypoattenuation are stable. These are nonspecific, may relate to chronic small vessel ischemic changes. No areas of brain edema or midline shift. The paranasal sinuses and mastoids are clear.The calvarium is intact." CT cervical spine reports "No fracture or subluxation.No prevertebral soft tissues swelling is identified. Layering small to moderate left pleural effusion. IMPRESSION: No acute traumatic intracranial or cervical spine findings. Stable nonspecific white matter hypodensities as above. Layering small to moderate left pleural effusion." Right hip x-ray reports "No acute findings of the right hip. Moderate degenerative changes." Right shoulder x-ray reports "No acute osseus abnormality. Moderate AC joint degenerative changes." Rena will be admitted to hospitalist service for further evaluation and treatment. 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 Rena presented to the ED with chief complaint of altered mental status and fall at home. She reports not remembering the fall but explained she does not remember many things. She reports living at home with her family caring for her. Her ammonia level and liver enzymes were elevated. She tolerated lactulose and xifaxan. Her urine culture grew Ecoli ESBL/ Enterococcus faecalis. She will discharge on Fosfomycin. She will need to follow up with her PCP for continued management of liver disease and paracentesis schedule. On 07/20/24, Rena was seen on morning rounds and deemed medically stable for discharge. Rena was discharged with instructions to schedule follow-up appointments with PCP. Rena was provided prescriptions for fosfomycin. Physical Exam General: Alert and oriented, NAD HEENT: Atraumatic, Normocephalic, PERRLA Neck: Supple, 2+ carotid pulse no bruit Respiratory: Clear to auscultation bilaterally, Normal air movement, on RA Cardiovascular: Normal pulses, RRR, Normal S1 S2 Capillary refill: <2 Seconds Gastrointestinal: Normal bowel sounds, Soft and benign on palpation, Distended, nontender Musculoskeletal: No clubbing Integumentary: No rashes Neurological: Normal speech, Normal tone Vital Signs/Physical Exam: Temp Pulse Resp BP Pulse Ox 97.8 F 70 16 150/58 H 99 07/20/24 08:00 07/20/24 08:12 07/20/24 08:00 07/20/24 08:12 07/20/24 08:00 Laboratory Data at Discharge: WBC 3.60 thou/uL (4.3-10.9) L 07/20/24 06:14 Hgb 8.0 g/dL (12.0-15.0) L D 07/20/24 06:14 Hct 24.3 % (36.0-45.0) L 07/20/24 06:14 Plt Count 53 thou/uL (152-406) L 07/20/24 06:14 Sodium 145 mEq/L (136-145) 07/20/24 06:14 Potassium 4.3 mEq/L (3.5-5.1) 07/20/24 06:14 BUN 49 mg/dL (7-18) H 07/20/24 06:14 Creatinine 1.78 mg/dL (0.55-1.02) H 07/20/24 06:14 Glucose 181 mg/dL (74-106) H 07/20/24 06:14 Phosphorus 3.4 mg/dL (2.5-4.9) 07/20/24 06:14 Magnesium 2.0 mg/dL (1.6-2.4) 07/20/24 06:14 Total Bilirubin 2.0 mg/dL (0.2-1.0) H 07/20/24 06:14 AST 33 U/L (15-37) 07/20/24 06:14 ALT 20 U/L (13-56) 07/20/24 06:14 Alkaline Phosphatase 93 U/L (45-117) 07/20/24 06:14 Home Medications: Atorvastatin Calcium 10 mg PO BEDTIME 07/01/21 Omeprazole [Prilosec] 40 mg PO DAILY 07/01/21 Amlodipine [Norvasc*] 1 tab PO DAILY 12/18/23 Ensure Max Protein 330 ml PO BID can 01/15/24 Ferrous Sulfate [Ferrous Sulfate*] 325 mg PO DAILY tab 01/15/24 Furosemide [Lasix*] 40 mg PO BIDL #60 tab 01/15/24 Iron/FA/Vit B-Com W/C [Hemocyte Plus*] 1 tab PO DAILY WITH BREAKFAST #30 tab 01/15/24 Metoprolol Tartrate [Lopressor*] 50 mg PO BID #60 tab 01/15/24 Rifaximin [Xifaxan] 550 mg PO BID #60 01/15/24 Spironolactone [Aldactone*] 25 mg PO DAILY #30 tab 01/15/24 guaiFENesin [Robitussin 100MG/5ML*] 10 ml PO QIDP PRN #20 01/15/24 Lactulose [Cephulac*] 30 ml PO BID 06/04/24 Silver Sulfadiazine Crm [Silvadene*] 1 appl TOP BID 30 Days #1 tube 06/09/24 Fosfomycin Tromethamine 3 gm PO Q48H 2 Days #2 packet 07/20/24 New Medications: Fosfomycin Tromethamine 3 gm PO Q48H 2 Days #2 packet Physician Discharge Instructions: Follow up with PCP for continued monitoring and management of liver disease and need for paracentesis. Blood sugar has been elevated and may need medication started, please see PCP for additional management. You have been treated for a urinary tract infection, medication has been provided to your pharmacy to continue the antibiotic course. 1. Please call and schedule a follow-up appointment with your PCP in 3-5 days - Please follow-up with your PCP for medication refills/adjustments -Elevated blood pressure and sugar levels, please see PCP for additional management 2. Continue medications prescribed by outside provider 3. Continue heart healthy diet 4. activity restrictions Fall precautions 5. Return to the ED if symptoms worsen New medications Fosfomycin 3 g, take 1 dose today and the next dose in 48 hours, only 2 doses needed Activity: Fall precautions Followup: Rachael Faye [Primary Care Provider] - 1 Week (Call for appointment.)
--- NOTE | 2024-07-20 12:10 | EKG ---
Test Date: 2024-07-19 Test Time: 11:32:44 Repair Supervisor: MB MEASUREMENT RESULTS: Intervals: Rate: 58 WA: 152 QRSD: 84 QT: 462 QTc: 453 [place]: P: 78 WA: 152 QRS: 39 T: 60 INTERPRETIVE STATEMENTS: Sinus bradycardia Otherwise normal ECG Compared to ECG 07/15/2024 21:40:03 Sinus rhythm no longer present Sinus arrhythmia no longer present Electronically Signed On 07-20-24 12:07:23 CDT by Renato Mendez
--- NOTE | 2024-07-20 18:21 | PN ---
This patient was initially admitted as an inpatient for change in mental status and was discovered to have a UTI. The change in medical status was considered metabolic secondary probably to the UTI. T he patient was treated and improved rapidly with normal on her mental status exam. Patient just requ ired oral antibiotics for her UTI and I discussed the case with Dr. Nunn in detail. Based on his a ssessment of the patient's condition, I agree with the code 44, and she can be converted from inpatie nt status to Obs. /MODL Voice ID: [id number] Report ID: [id number]
== END 2024-07-20 13:37 | disposition home or self-care (01) ==
LOC: ER 10:55 → ERHOLD 15:45 → INTOOBSV 15:45 → 4TH 16:45
PROVIDERS: ADMIT Internal Medicine; ATTEND Internal Medicine
DX: K76.82 Hepatic encephalopathy (principal); N39.0 Urinary tract infection, site not specified; J90 Pleural effusion, not elsewhere classified; K75.81 Nonalcoholic steatohepatitis (NASH); K74.60 Unspecified cirrhosis of liver; I10 Essential (primary) hypertension; E11.9 Type 2 diabetes mellitus without complications; D64.9 Anemia, unspecified; J44.9 Chronic obstructive pulmonary disease, unspecified; E11.22 Type 2 diabetes mellitus with diabetic chronic kidney disease; E11.65 Type 2 diabetes mellitus with hyperglycemia; I12.9 Hypertensive chronic kidney disease with stage 1 through stage 4 chronic kidney disease, or unspecified chronic kidney disease; N18.4 Chronic kidney disease, stage 4 (severe); E72.4 Disorders of ornithine metabolism
CPT/HCPCS: 93005; 87088; 85025 ×2; 81001; 87086; 80048; 36415; 82140; 83735 ×2; 84100; 82947 ×3; 80076; 84484 ×3; 80053; 70450; 72125; 71045; 73502; 73030; J0360; J0696; J7040 ×2; 87077; 87186; 96365; 96366; 96375; 99285; G0378

== ENCOUNTER 2024-07-22 07:53 | Day surgery (SDC) | payer OTHER, BC ==
[2024-07-22 08:31] VITALS: BMI 28.9
--- NOTE | 2024-07-22 09:13 | RAD REPORT ---
EXAM DESCRIPTION: US - Paracentesis Proc Guidance - 07/22/2024 8:44 am CLINICAL HISTORY: ASCITES Ascites COMPARISON: Paracentesis Proc Guidance dated 07/15/2024 FINDINGS: Informed consent was obtained and time-out was performed. Patient's abdomen was prepped and draped in the usual sterile fashion. 1% lidocaine was used for loca l anesthetic purposes. A small skin incision was made. A paracentesis catheter was guided into the peroneal cavity under son ographic guidance. A small amount of fluid was sent for requested lab studies. A large volume paracentesis was performed . The patient tolerated the procedure well. Patient was administered IV albumin per protocol following the procedure. IMPRESSION: Successful ultrasound-guided paracentesis.
[2024-07-22] MEDS: ALBUMIN HUMAN 25% 50 ML IV ONE (09:19)
[2024-07-22] MEDS: ALBUMIN HUMAN 25% 200 ML IV ONE (09:19)
[2024-07-22 09:32] VITALS: O2SAT 98
[2024-07-22 10:13] VITALS: BP 137/40; TEMP 98.9
[2024-07-22 12:10] LABS: Appearance CLEAR (CLEAR); Body Fluid Lymphocytes 19 %; Body Fluid Source PERITONEAL; Body Fluid WBC 30 /mm^3; Color of fluid Yellow (COLORLESS); Fluid Total Cells Count 100
== END 2024-07-22 11:12 | disposition home or self-care (01) ==
LOC: DS 07:53
PROVIDERS: ATTEND Legal Medicine
DX: R18.8 Other ascites (principal)
CPT/HCPCS: 87070; 36415; 89050; 84157; 96365; 49083; P9047 ×2

== ENCOUNTER 2024-07-29 07:33 | Day surgery (SDC) | payer OTHER, BC ==
[2024-07-29 09:27] VITALS: BMI 28.9
[2024-07-29] MEDS: ALBUMIN HUMAN 25% 50 ML IV ONE (10:20)
[2024-07-29] MEDS: ALBUMIN HUMAN 25% 200 ML IV ONE (10:20)
--- NOTE | 2024-07-29 10:43 | RAD REPORT ---
EXAM DESCRIPTION: US - Paracentesis Proc Guidance - 07/29/2024 10:04 am CLINICAL HISTORY: Liver disease with ascites FINDINGS: The risks, benefits and alternatives to the procedure were explained to the patient and in formed consent obtained. The skin and deeper tissues were anesthetized with Lidocaine. Under sonographic guidance an 8 Malay catheter was placed into the right lower quadrant.. 6 liters of yellow fluid removed. Fluid sent to t he lab. The patient experienced no immediate complication. IMPRESSION: Paracentesis
[2024-07-29 10:56] LABS: Body Fluid Source PERITONEAL; Color of Supernate Not Xanthochromic (Not Xantho); Color of fluid Colorless (COLORLESS); Tube # #1
[2024-07-29 10:57] LABS: Appearance CLEAR (CLEAR); Body Fluid WBC 1 /mm^3
[2024-07-29 11:56] VITALS: TEMP 97.9
[2024-07-29 12:02] VITALS: O2SAT 97
[2024-07-29 12:05] VITALS: BP 126/35
== END 2024-07-29 11:42 | disposition home or self-care (01) ==
LOC: DS 07:33
PROVIDERS: ATTEND Legal Medicine
DX: R18.8 Other ascites (principal)
CPT/HCPCS: 87070; 36415; 89050; 84157; 96365; 49083; 96366; P9047 ×2; 87077; 87186

== ENCOUNTER 2024-08-19 07:18 | Day surgery (SDC) | payer OTHER, BC ==
[2024-08-19 07:52] VITALS: O2SAT 100; BMI 30.6
[2024-08-19 07:56] LABS: MPV 8.6 fL (7.6-11.3); Platelets 54 thou/uL (152-406)
[2024-08-19 07:58] LABS: PT Prothrombin Time 17.5 SECONDS (9.4-12.5); PTT, Activated Partial Thromb 36.5 SECONDS (24.3-36.9); Protime INR 1.58
[2024-08-19] MEDS ORDERED: ALBUMIN HUMAN 25% 200 ML IV ONE (09:37)
[2024-08-19 10:36] LABS: Body Fluid Source PERITONEAL; Color of fluid Yellow (COLORLESS); Tube # SINGLE
[2024-08-19 10:37] LABS: Appearance CLEAR (CLEAR); Body Fluid WBC 38 /mm^3
[2024-08-19 10:50] VITALS: BP 159/90
[2024-08-19 11:11] VITALS: TEMP 97
[2024-08-19 11:35] LABS: Body Fluid Lymphocytes 28 %; Fluid Total Cells Count 100
--- NOTE | 2024-08-19 12:46 | RAD REPORT ---
PROCEDURE: ULTRASOUND GUIDED PARACENTESIS CLINICAL INDICATION: [facility] ASCITES PROCEDURE DETAILS: Consent: Informed consent for the procedure including risks, benefits and alternatives was obtained a nd time-out was performed prior to the procedure. Preparation: The site was prepared and draped using maximal sterile barrier technique including cutan eous antisepsis. Procedure: Initial limited abdominal ultrasound was performed and a large amount of ascites was seen. A safe window for paracentesis was identified with ultrasound to blanca a suitable access site. Local anesthesia was administered. The peritoneal cavity was accessed, and fluid return confirmed pos ition. A 6F catheter was placed and clear straw-colored ascites was drained. A total of 4.5 L were drained. The catheter was removed, and a sterile bandage was applied. Following the procedure, albumi n was administered per protocol. IMPRESSION: Successful ultrasound-guided diagnostic and therapeuticparacentesis. PLAN: Aspirated fluid was sent for analysis.
== END 2024-08-19 11:10 | disposition home or self-care (01) ==
LOC: DS 07:18
PROVIDERS: ATTEND Legal Medicine
DX: R18.8 Other ascites (principal)
CPT/HCPCS: 87070; 36415; 89050; 85049; 84157; 85610; 85730; 96365; 49083; P9047; 87077; 87186

== ENCOUNTER 2024-08-26 07:29 | Day surgery (SDC) | payer OTHER, BC ==
--- NOTE | 2024-08-26 09:04 | RAD REPORT ---
PROCEDURE: ULTRASOUND GUIDED PARACENTESIS CLINICAL INDICATION: [facility] MAIN ASCITES PROCEDURE DETAILS: Consent: Informed consent for the procedure including risks, benefits and alternatives was obtained a nd time-out was performed prior to the procedure. Preparation: The site was prepared and draped using maximal sterile barrier technique including cutan eous antisepsis. Procedure: Initial limited abdominal ultrasound was performed and a small amount of ascites was seen. A safe window for paracentesis was identified with ultrasound to blanca a suitable access site. Local anesthesia was administered. The peritoneal cavity was accessed, and fluid return confirmed pos ition. A 5F Yueh catheter was placed and ascites was drained. The catheter was removed, and a sterile bandage was applied. Following the procedure, albumin was administered per protocol. IMPRESSION: Ultrasound guided paracentesis, yielding 100 mL of clear yellow fluid. PLAN: Aspirated fluid was sent for analysis.
[2024-08-26 09:31] VITALS: BMI 32.3
[2024-08-26 09:49] VITALS: BP 167/51; TEMP 97.9; O2SAT 100
[2024-08-26 11:43] LABS: Appearance SLT. TURBID (CLEAR); Body Fluid Source PERITONEAL; Color of Supernate Not Xanthochromic (Not Xantho); Color of fluid White (COLORLESS); Tube # SINGLE
[2024-08-26 11:44] LABS: Body Fluid Lymphocytes 78 %; Fluid Total Cells Count 100
== END 2024-08-26 09:15 | disposition home or self-care (01) ==
LOC: DS 07:29
PROVIDERS: ATTEND Legal Medicine
DX: R18.8 Other ascites (principal)
CPT/HCPCS: 36415; 49083; 84157; 87070; 89050

== ENCOUNTER 2024-09-02 08:00 | Day surgery (SDC) | payer OTHER, BC ==
--- NOTE | 2024-09-02 09:16 | RAD REPORT ---
PROCEDURE: ULTRASOUND GUIDED PARACENTESIS CLINICAL INDICATION: ASCITES PROCEDURE DETAILS: Consent: Informed consent for the procedure including risks, benefits and alternatives was obtained a nd time-out was performed prior to the procedure. Preparation: The site was prepared and draped using maximal sterile barrier technique including cutan eous antisepsis. Procedure: Initial limited abdominal ultrasound was performed and a large amount of ascites was seen. A safe window for paracentesis was identified with ultrasound to blanca a suitable access site. Local anesthesia was administered. The peritoneal cavity was accessed, and fluid return confirmed pos ition. A 8F pigtail drainage catheter was placed and ascites was drained. The catheter was removed, and a sterile bandage was applied. Following the procedure, albumin was administered per protocol. IMPRESSION: Ultrasound guided paracentesis, yielding yellow clear fluid. PLAN: Aspirated fluid was sent for analysis.
[2024-09-02] MEDS: ALBUMIN HUMAN 25% 200 ML IV ONE (09:21)
[2024-09-02 10:02] VITALS: O2SAT 98; BMI 30.6
[2024-09-02 10:23] VITALS: BP 135/46; TEMP 98.9
[2024-09-02 10:44] LABS: Appearance CLEAR (CLEAR); Body Fluid Source PERITONEAL; Color of fluid Yellow (COLORLESS); Tube # SINGLE
[2024-09-02 10:45] LABS: Body Fluid Lymphocytes 12 %; Body Fluid WBC 40 /mm^3; Fluid Total Cells Count 100
== END 2024-09-02 10:15 | disposition home or self-care (01) ==
LOC: DS 08:00
PROVIDERS: ATTEND Legal Medicine
DX: R18.8 Other ascites (principal)
CPT/HCPCS: 87070; 36415; 89050; 84157; 49083; P9047

== ENCOUNTER 2024-09-09 07:43 | Day surgery (SDC) | payer OTHER, BC ==
[2024-09-09 08:44] VITALS: BMI 29.1
[2024-09-09] MEDS: ALBUMIN HUMAN 25% 50 ML IV ONE (10:10)
[2024-09-09] MEDS: ALBUMIN HUMAN 25% 200 ML IV ONE (10:10)
[2024-09-09 10:39] LABS: Appearance CLEAR (CLEAR); Body Fluid Source PERITONEAL; Body Fluid WBC 30 /mm^3; Color of fluid Yellow (COLORLESS)
[2024-09-09 11:28] LABS: Body Fluid Lymphocytes 16 %; Fluid Total Cells Count 100
--- NOTE | 2024-09-09 11:38 | RAD REPORT ---
PROCEDURE: ULTRASOUND GUIDED PARACENTESIS CLINICAL INDICATION: [facility] MAIN ASCITES PROCEDURE DETAILS: Consent: Informed consent for the procedure including risks, benefits and alternatives was obtained a nd time-out was performed prior to the procedure. Preparation: The site was prepared and draped using maximal sterile barrier technique including cutan eous antisepsis. Procedure: Initial limited abdominal ultrasound was performed and a large amount of ascites was seen. A safe window for paracentesis was identified with ultrasound to blanca a suitable access site. Local anesthesia was administered using 1% lidocaine. The peritoneal cavity was accessed, and fluid r eturn confirmed position. A 6F catheter was placed and clear straw-colored ascites was drained, with a total volume 5.8 L. The catheter was removed, and a sterile bandage was applied. Following the procedure, albumin was administered per protocol. IMPRESSION: Successful ultrasound-guided diagnostic and therapeuticparacentesis. PLAN: Aspirated fluid was sent for analysis.
[2024-09-09 13:31] VITALS: TEMP 97.1
[2024-09-09 13:32] VITALS: O2SAT 99
[2024-09-09 13:34] VITALS: BP 145/44
== END 2024-09-09 12:00 | disposition home or self-care (01) ==
LOC: DS 07:43
PROVIDERS: ATTEND Legal Medicine
DX: R18.8 Other ascites (principal)
CPT/HCPCS: 87070; 36415; 89050; 84157; 96365; 49083; P9047 ×2

== ENCOUNTER 2024-09-16 07:40 | Day surgery (SDC) | payer OTHER, BC ==
[2024-09-16 10:06] VITALS: BMI 29.9
[2024-09-16] MEDS: ALBUMIN HUMAN 25% 200 ML IV ONE (10:29)
[2024-09-16 11:00] LABS: Appearance CLEAR (CLEAR); Body Fluid Source PERITONEAL; Body Fluid WBC 9 /mm^3; Color of Supernate Not Xanthochromic (Not Xantho); Color of fluid Yellow (COLORLESS); Tube # #1
[2024-09-16 11:32] VITALS: BP 156/44; TEMP 98.2; O2SAT 100
--- NOTE | 2024-09-16 11:54 | RAD REPORT ---
PROCEDURE: ULTRASOUND GUIDED PARACENTESIS CLINICAL INDICATION: [facility] MAIN ASCITES PROCEDURE DETAILS: Consent: Informed consent for the procedure including risks, benefits and alternatives was obtained a nd time-out was performed prior to the procedure. Preparation: The site was prepared and draped using maximal sterile barrier technique including cutan eous antisepsis. Procedure: Initial limited abdominal ultrasound was performed and a large amount of ascites was seen. A safe window for paracentesis was identified with ultrasound to blanca a suitable access site. Local anesthesia was administered. The peritoneal cavity was accessed, and fluid return confirmed pos ition. A 6F catheter was placed and clear straw-colored ascites was drained. A total of 3.7 L of ascites were drained. The catheter was removed, and a sterile bandage was applied. Following the proc edure, albumin was administered per protocol. IMPRESSION: Successful ultrasound-guided diagnostic and therapeuticparacentesis. PLAN: Aspirated fluid was sent for analysis.
[2024-09-16 12:16] LABS: Body Fluid Lymphocytes 39 %; Fluid Total Cells Count 100
== END 2024-09-16 11:25 | disposition home or self-care (01) ==
LOC: DS 07:40
PROVIDERS: ATTEND Legal Medicine
DX: R18.8 Other ascites (principal)
CPT/HCPCS: 87070; 36415; 89050; 84157; 96365; 49083; P9047

== ENCOUNTER 2024-09-23 07:15 | Day surgery (SDC) | payer OTHER, BC ==
[2024-09-23 07:50] LABS: MPV 8.8 fL (7.6-11.3); Platelets 59 thou/uL (152-406)
[2024-09-23 07:52] VITALS: BMI 29.1
[2024-09-23 07:53] LABS: PT Prothrombin Time 18.9 SECONDS (9.4-12.5); PTT, Activated Partial Thromb 39.4 SECONDS (24.3-36.9); Protime INR 1.71
--- NOTE | 2024-09-23 08:59 | RAD REPORT ---
PROCEDURE: ULTRASOUND GUIDED PARACENTESIS CLINICAL INDICATION: ASCITES PROCEDURE DETAILS: Consent: Informed consent for the procedure including risks, benefits and alternatives was obtained a nd time-out was performed prior to the procedure. Preparation: The site was prepared and draped using maximal sterile barrier technique including cutan eous antisepsis. Procedure: Initial limited abdominal ultrasound was performed and a large amount of ascites was seen. A safe window for paracentesis was identified with ultrasound to blanca a suitable access site. Local anesthesia was administered. The peritoneal cavity was accessed, and fluid return confirmed pos ition. A 8F pigtail drainage catheter was placed and ascites was drained. The catheter was removed, and a sterile bandage was applied. Following the procedure, albumin was administered per protocol. IMPRESSION: Ultrasound guided paracentesis, PLAN: Aspirated fluid was sent for analysis.
[2024-09-23] MEDS: ALBUMIN HUMAN 25% 200 ML IV ONE (09:15)
[2024-09-23 09:51] VITALS: BP 151/44; TEMP 98.7; O2SAT 97
[2024-09-23 10:12] LABS: Body Fluid Source PERITONEAL; Color of fluid Orange (COLORLESS); Tube # SINGLE
[2024-09-23 10:13] LABS: Appearance TURBID (CLEAR); Body Fluid Lymphocytes 9 %; Body Fluid WBC 71 /mm^3; Fluid Total Cells Count 100
== END 2024-09-23 11:40 | disposition home or self-care (01) ==
LOC: DS 07:15
PROVIDERS: ATTEND Legal Medicine
DX: R18.8 Other ascites (principal)
CPT/HCPCS: 87070; 36415; 89050; 85049; 84157; 85610; 85730; 96365; 49083; P9047

== ENCOUNTER 2024-10-10 07:48 | Day surgery (SDC) | payer OTHER, BC ==
[2024-10-10] MEDS: ALBUMIN HUMAN 25% 50 ML IV ONE (10:35)
[2024-10-10] MEDS: ALBUMIN HUMAN 25% 200 ML IV ONE (10:35)
--- NOTE | 2024-10-10 10:50 | RAD REPORT ---
PROCEDURE: Paracentesis Proc Guidance CLINICAL INDICATION: Liver disease with ascites TECHNIQUE: The risks, benefits and alternatives to the procedure explained to the patient and informed consent o btained. The skin and deeper tissues anesthetized with lidocaine. Under sonographic guidance an 8.3 Portuguese catheter was advanced into the left lower quadrant. 5.6 L of yellow fluid removed. Fluid sent to lab. Patient experienced no immediate consultation. IMPRESSION: Paracentesis
[2024-10-10 10:54] VITALS: BMI 29.1
[2024-10-10 10:55] VITALS: BP 148/42; TEMP 97.6; O2SAT 98
[2024-10-10 11:03] LABS: Appearance CLEAR (CLEAR); Body Fluid Source PERITONEAL; Body Fluid WBC 36 /mm^3; Color of fluid Yellow (COLORLESS)
[2024-10-10 12:14] LABS: Body Fluid Lymphocytes 2 %; Fluid Total Cells Count 100
== END 2024-10-10 10:57 | disposition home or self-care (01) ==
LOC: DS 07:48
PROVIDERS: ATTEND Legal Medicine
DX: R18.8 Other ascites (principal)
CPT/HCPCS: 87070; 36415; 89050; 84157; 96365; 49083; P9047 ×2

== ENCOUNTER → 2024-10-24 | Day surgery (SDC) | payer OTHER, BC ==
[2024-10-24 08:42] LABS: PT Prothrombin Time 18.7 SECONDS (9.4-12.5); PTT, Activated Partial Thromb 40.2 SECONDS (24.3-36.9); Protime INR 1.7
[2024-10-24 08:56] LABS: Platelets 61 thou/uL (152-406)
--- NOTE | 2024-10-24 11:25 | RAD REPORT ---
EXAM: Right upper quadrant ultrasound. CLINICAL HISTORY: Ascites FINDINGS: The patient presented for a paracentesis. The amount of ascites the patient usually has is diminished today. It is small to moderate. After discussing this with the patient it was decided to postpone the paracentesis for today. The patient will return next Thursday for a paracentesis.
[2024-10-24 11:28] VITALS: TEMP 97; BMI 29.1
[2024-10-24 11:33] VITALS: BP 146/50; O2SAT 98
== END ==
LOC: DS 07:49
PROVIDERS: ATTEND Legal Medicine
DX: R18.8 Other ascites (principal); Z53.8 Procedure and treatment not carried out for other reasons
CPT/HCPCS: 36415; 76705; 85049; 85610; 85730

== ENCOUNTER 2024-10-31 07:52 | Day surgery (SDC) | payer OTHER, BC ==
[2024-10-31] MEDS ORDERED: NA CHLORIDE 0.9% 0 ML ONE (08:16)
[2024-10-31] MEDS: ALBUMIN HUMAN 25% 50 ML IV ONE (10:01)
[2024-10-31] MEDS: ALBUMIN HUMAN 25% 100 ML IV ONE (10:01)
--- NOTE | 2024-10-31 11:04 | RAD REPORT ---
PROCEDURE: ULTRASOUND GUIDED PARACENTESIS Procedural Provider: Tim Simms M.D. Pre-procedure diagnosis: Recurrent ascites Post-procedure diagnosis: Same as above. CLINICAL INDICATION: Female, 73 years old. ASCITES COMPLICATIONS: No immediate complications. IMPRESSION: Ultrasound guided paracentesis, yielding 3900 mL of straw-colored fluid. PLAN: Aspirated fluid was sent for analysis. PROCEDURE DETAILS: Consent: Informed consent for the procedure including risks, benefits and alternatives was obtained a nd time-out was performed prior to the procedure. Preparation: The site was prepared and draped using maximal sterile barrier technique including cutan eous antisepsis. Sedation: None Procedure: Initial limited abdominal ultrasound was performed and a large amount of ascites was seen. A safe window for paracentesis was identified with ultrasound to blanca a suitable access site. Local anesthesia was administered. The peritoneal cavity was accessed, and fluid return confirmed pos ition. A catheter was placed and ascites was drained. The catheter was removed, and a sterile bandage was applied. [id number]. Estimated blood loss: Less than 10 mL.
[2024-10-31 12:34] LABS: Appearance CLEAR (CLEAR); Body Fluid Lymphocytes 50 %; Body Fluid Source PERITONEAL; Body Fluid WBC 13 /mm^3; Color of Supernate Not Xanthochromic (Not Xantho); Color of fluid Yellow (COLORLESS); Fluid Total Cells Count 100; Tube # #2
[2024-10-31 16:28] VITALS: BP 152/40; TEMP 97.6; O2SAT 94
== END 2024-10-31 11:15 | disposition home or self-care (01) ==
LOC: DS 07:52
PROVIDERS: ATTEND Legal Medicine
DX: R18.8 Other ascites (principal)
CPT/HCPCS: 87070; 36415; 89050; 84157; 96365; 49083; P9047 ×2; J7030

== ENCOUNTER 2024-11-07 08:22 | Day surgery (SDC) | payer OTHER, BC ==
[2024-11-07 09:51] VITALS: BMI 29.1
[2024-11-07 09:53] VITALS: BP 155/48; TEMP 97.8; O2SAT 98
--- NOTE | 2024-11-07 10:40 | RAD REPORT ---
EXAMINATION: US Abdomen Exam Limited CLINICAL HISTORY: [facility] MAIN ASCITES COMPARISON: None. TECHNIQUE: Limited upper abdominal grayscale and color flow sonographic images. FINDINGS: Mild free ascites seen throughout the abdomen. No safe window for paracentesis was visualized. IMPRESSION: Mild free ascites, considered not amenable for paracentesis at this time.
== END 2024-11-07 09:45 | disposition home or self-care (01) ==
LOC: DS 08:22
PROVIDERS: ATTEND Legal Medicine
DX: R18.8 Other ascites (principal)
CPT/HCPCS: 76705

== ENCOUNTER 2024-11-10 20:56 | Emergency (ER) | payer OTHER, BC ==
--- NOTE | 2024-11-10 21:14 | ER ---
Nurse's Notes [facility] Name: Rena Burch Age: 73 yrs Sex: Female : 1950 Arrival Date: 11/10/2024 Time: 20:56 Bed IW10 Private MD: Diagnosis: Right acute subconjunctival hemorrhage Presentation: 11/10 20:59 Chief complaint: Patient states: BLOOD TO SCLERA OF RIGHT EYE. PT STATES THAT SHE WAS cm10 WATCHING TV WHEN IT HAPPENED. PT ALL PAIN, NO BLURRED VISION. Coronavirus screen: Client denies travel out of the [place] in the last 14 days. Ebola Screen: Patient denies travel to an Ebola-affected area in the 21 days before illness onset. No symptoms or risks identified at this time. Initial Sepsis Screen: Does the patient meet any 2 criteria? No. Patient's initial sepsis screen is negative. Does the patient have a suspected source of infection? No. Patient's initial sepsis screen is negative. Risk Assessment: Do you want to hurt yourself or someone else? Patient reports no desire to harm self or others. Onset of symptoms was November 10, 2024. 20:59 Method Of Arrival: Wheelchair cm10 20:59 Acuity: CHEIKH 4 cm10 Historical: - Allergies: 21:00 aspartame; cm10 21:00 Aspirin; cm10 - PMHx: 21:00 COPD; Diabetes - IDDM; fatty liver; Hypertension; Liver failure (currently on liver cm10 transplant list); Paracentesis; Psoriatic Arthritis; - Immunization history:: Adult Immunizations up to date. - Infectious Disease History:: Denies. - Social history:: Smoking status: Patient denies any tobacco usage or history of. - Family history:: not pertinent. Screenin:17 [facility] ED Fall Risk Assessment (Adult) History of falling in the last 3 months, cp4 including since admission No falls in past 3 months (0 pts) Confusion or Disorientation No (0 pts) Intoxicated or Sedated No (0 pts) Impaired Gait No (0 pts) Mobility Assist Device Used No (0 pt) Altered Elimination No (0 pt) Score/Fall Risk Level 0 - 2 = Low Risk Oriented to surroundings, Maintained a safe environment, Assessed \T\ reinforced patient's understanding of fall precautions, Hourly rounding (assess needs \T\ fall precautionary measures) done. Abuse screen: Denies threats or abuse. Nutritional screening: No deficits noted. Tuberculosis screening: No symptoms or risk factors identified. Assessment: 21:17 General: Appears in no apparent distress. comfortable, Behavior is calm, cooperative, cp4 appropriate for age. Pain: Denies pain. Neuro: Level of Consciousness is awake, alert, obeys commands, Oriented to person, place, time, situation. Cardiovascular: Patient's skin is warm and dry. Respiratory: Airway is patent Respiratory effort is even, unlabored. GI: No signs and/or symptoms were reported involving the gastrointestinal system. : No signs and/or symptoms were reported regarding the genitourinary system. EENT: Sclera/Cornea blood in scelera. Reports blood in sclera.. 21:17 Derm: No signs and/or symptoms reported regarding the dermatologic system. cp4 Musculoskeletal: No signs and/or symptoms reported regarding the musculoskeletal system. Vital Signs: 20:59 BP 136 / 52; Pulse 65; Resp 16; Temp 98(TE); Pulse Ox 98% on R/A; Weight 78.93 kg; cm10 Height 5 ft. 5 in. ; Pain 0/10; 20:59 Body Mass Index 28.95 (78.93 kg, 165.1 cm) cm10 20:59 Pain Scale: Adult cm10 [place] Score: 11/11 20:18 Eye Response: spontaneous(4). Motor Response: obeys commands(6). Verbal Response: sp4 oriented(5). Total: 15. ED Course: 11/10 20:58 Patient arrived in ED. cm10 21:00 Triage completed. cm10 21:01 Arm band placed on right wrist. Patient placed in an exam room, on a stretcher. cm10 21:05 Israel Saleh MD is Attending Physician. sp4 21:13 Tim Maxwell MD is Referral Physician. sp4 21:17 Belinda Lei is Primary Nurse. cp4 21:17 Bed in low position. Call light in reach. Side rails up X 1. cp4 21:17 No provider procedures requiring assistance completed. cp4 21:17 Patient did not have IV access during this emergency room visit. cp4 21:41 Provided Education on: post er care. bm8 Administered Medications: No medications were administered Medication: 21:17 VIS not applicable for this client. cp4 Outcome: 21:13 Discharge ordered by . spAmy 21:41 Discharged to home via wheelchair, with family, bm8 21:41 Condition: stable 21:41 Discharge instructions given to patient, Instructed on discharge instructions, follow up and referral plans. no driving heavy equipment, medication usage, Demonstrated understanding of instructions, follow-up care, medications, 21:41 Patient left the ED. bm8 Signatures: Israel Saleh MD MD sp4 Apple Swain, RN RN cm10 Belinda Lei cp4 Charly Stapleton, RN RN bm8
--- NOTE | 2024-11-10 21:14 | EDPHYS ---
Physician Documentation [facility] Name: Rena Burch Age: 73 yrs Sex: Female : 1950 Arrival Date: 11/10/2024 Time: 20:56 Bed IW10 Private MD: ED Physician Israel Saleh HPI: 11/10 21:05 This 73 yrs old Female presents to ER via Wheelchair with complaints of Eye sp4 Problem. 11/11 20:17 73-year-old very pleasant female presents with complaint of right eye redness. Patient sp4 has developed right eye redness while eating dinner tonight. . Historical: - Allergies: 11/10 21:00 aspartame; cm10 21:00 Aspirin; cm10 - PMHx: 21:00 COPD; Diabetes - IDDM; fatty liver; Hypertension; Liver failure (currently on liver cm10 transplant list); Paracentesis; Psoriatic Arthritis; - Immunization history:: Adult Immunizations up to date. - Infectious Disease History:: Denies. - Social history:: Smoking status: Patient denies any tobacco usage or history of. - Family history:: not pertinent. ROS: 11/11 20:18 Constitutional: Negative for fever, chills, and weight loss, positive for right eye sp4 redness All other systems are negative, Exam: 20:18 Visual Acuity: I have reviewed the nursing documentation. Visual acuity is within sp4 normal limits. 20:18 Constitutional: This is a well developed, well nourished patient who is awake, alert, and in no acute distress. Head/Face: Normocephalic, atraumatic. Eyes: Pupils equal round and reactive to light, extra-ocular motions intact. Lids and lashes normal. Cornea within normal limits. Periorbital areas with no swelling, redness, or edema. Left eye exam is normal, right eye exam reveals moderate right subconjunctival hemorrhage inferior part of the right conjunctiva. No hyphema, no signs of conjunctivitis, intact bilateral visual cardozo ENT: Nares patent. No nasal discharge, no septal abnormalities noted. Tympanic membranes are normal and external auditory canals are clear. Oropharynx with no redness, swelling, or masses, exudates, or evidence of obstruction, uvula midline. Mucous membranes moist. Neck: Trachea midline, no thyromegaly or masses palpated, and no cervical lymphadenopathy. Supple, full range of motion without nuchal rigidity, or vertebral point tenderness. Chest/axilla: Normal chest wall appearance and motion. Nontender with no deformity. No lesions are appreciated. Cardiovascular: Regular rate and rhythm with a normal S1 and S2. No gallops, murmurs, or rubs. Normal PMI, no JVD. No pulse deficits. Respiratory: Lungs have equal breath sounds bilaterally, clear to auscultation and percussion. No rales, rhonchi or wheezes noted. No increased work of breathing, no retractions or nasal flaring. Abdomen/GI: Soft, with normal bowel sounds. No distension or tympany. No guarding or rebound. No evidence of tenderness throughout. Back: No spinal tenderness. No costovertebral tenderness. Skin: Warm, dry with normal turgor. Normal color with no rashes, no lesions, and no evidence of cellulitis. MS/ Extremity: Pulses equal, no cyanosis. Neurovascular intact. Full, normal range of motion. Neuro: Awake and alert, GCS 15, oriented to person, place, time, and situation. Cranial nerves II-XII grossly intact. Motor strength 5/5 in all extremities. Sensory grossly intact. Psych: Awake, alert, with orientation to person, place and time. Behavior, mood, and affect are within normal limits Vital Signs: 11/10 20:59 BP 136 / 52; Pulse 65; Resp 16; Temp 98(TE); Pulse Ox 98% on R/A; Weight 78.93 kg; cm10 Height 5 ft. 5 in. ; Pain 0/10; 20:59 Body Mass Index 28.95 (78.93 kg, 165.1 cm) cm10 20:59 Pain Scale: Adult cm10 [place] Com[place] Score: 11/11 20:18 Eye Response: spontaneous(4). Motor Response: obeys commands(6). Verbal Response: sp4 oriented(5). Total: 15. MDM: 11/10 21:12 Medical Screening Exam initiated sp4 11/11 20:21 Differential diagnosis: Corneal abrasion of Corneal ulcer of Acute iritis of Data sp4 reviewed: vital signs, nurses notes, old medical records. ED course: Exam is consistent with right subconjunctival hemorrhage. Administered Medications: No medications were administered Disposition Summary: 11/10/24 21:13 Discharge Ordered Notes: Consider follow up with [facility] for eye exam in 7 days Location: Home sp4 Problem: new sp4 Symptoms: have improved sp4 Condition: Stable sp4 Diagnosis - Right acute subconjunctival hemorrhage sp4 Followup: sp4 - With: Tim Maxwell MD - When: 7 - 10 days - Reason: Recheck today's complaints Discharge Instructions: - Discharge Summary Sheet sp4 - Subconjunctival Hemorrhage sp4 Forms: - Patient Portal Instructions sp4 Signatures: Israel Saleh MD MD sp4 Apple Swain RN RN cm10
[2024-11-10 22:02] VITALS: BP 136/52; TEMP 98; O2SAT 98
== END 2024-11-10 21:41 | disposition home or self-care (01) ==
LOC: ER 20:56
DX: H11.31 Conjunctival hemorrhage, right eye (principal)
CPT/HCPCS: 99282

== ENCOUNTER 2024-11-14 07:54 | Day surgery (SDC) | payer OTHER, BC ==
[2024-11-14 08:10] VITALS: BMI 29.9
[2024-11-14] MEDS: ALBUMIN HUMAN 25% 200 ML IV ONE (09:17)
--- NOTE | 2024-11-14 09:18 | RAD REPORT ---
PROCEDURE: ULTRASOUND GUIDED PARACENTESIS CLINICAL INDICATION: ASCITES PROCEDURE DETAILS: Consent: Informed consent for the procedure including risks, benefits and alternatives was obtained a nd time-out was performed prior to the procedure. Preparation: The site was prepared and draped using maximal sterile barrier technique including cutan eous antisepsis. Procedure: Initial limited abdominal ultrasound was performed and a large amount of ascites was seen. A safe window for paracentesis was identified with ultrasound to blanca a suitable access site. Local anesthesia was administered. The peritoneal cavity was accessed, and fluid return confirmed pos ition. A 8F pigtail drainage catheter was placed and ascites was drained. The catheter was removed, and a sterile bandage was applied. Following the procedure, albumin was administered per protocol. IMPRESSION: Ultrasound guided paracentesis. PLAN: Aspirated fluid was sent for analysis.
[2024-11-14 09:33] VITALS: BP 188/60; TEMP 96.9; O2SAT 97
[2024-11-14 13:31] LABS: Tube # SINGLE
[2024-11-14 13:37] LABS: Appearance CLEAR (CLEAR); Body Fluid Source PERITONEAL; Body Fluid WBC 41 /mm^3; Color of fluid Yellow (COLORLESS); Fluid Total Cells Count 100
[2024-11-14 13:38] LABS: Body Fluid Lymphocytes 35 %
== END 2024-11-14 11:10 | disposition home or self-care (01) ==
LOC: DS 07:54
PROVIDERS: ATTEND Legal Medicine
DX: R18.8 Other ascites (principal)
CPT/HCPCS: 87070; 36415; 89050; 84157; 96365; 49083; 96366; P9047

== ENCOUNTER 2024-11-28 07:16 | Day surgery (SDC) | payer OTHER, BC ==
[2024-11-28 07:43] LABS: MPV 8.4 fL (7.6-11.3); Platelets 57 thou/uL (152-406)
[2024-11-28 07:47] LABS: PT Prothrombin Time 17.6 SECONDS (9.4-12.5); PTT, Activated Partial Thromb 36.9 SECONDS (24.3-36.9); Protime INR 1.58
[2024-11-28] MEDS: ALBUMIN HUMAN 25% 200 ML IV ONE (09:45)
[2024-11-28] MEDS: ALBUMIN HUMAN 25% 50 ML IV ONE (09:45)
--- NOTE | 2024-11-28 09:57 | RAD REPORT ---
PROCEDURE: Paracentesis Proc Guidance CLINICAL INDICATION: Liver disease with ascites TECHNIQUE: The risks, benefits and alternatives to the procedure explained to the patient and informed consent o btained. The skin and deeper tissues anesthetized with lidocaine. Under sonographic guidance an 8.3 Bengali catheter was advanced into the right lower quadrant. 4.5 L of yellow fluid removed. Fluid sent to lab. Patient experienced no immediate consultation. IMPRESSION: Paracentesis
[2024-11-28 12:02] LABS: Appearance CLEAR (CLEAR); Body Fluid Lymphocytes 25 %; Body Fluid Source PERITONEAL; Body Fluid WBC 23 /mm^3; Color of fluid Yellow (COLORLESS); Fluid Total Cells Count 100; Tube # SINGLE
[2024-11-29 16:35] VITALS: BMI 30.6
[2024-11-29 16:36] VITALS: BP 174/58; TEMP 97.3; O2SAT 100
== END 2024-11-28 11:07 | disposition home or self-care (01) ==
LOC: DS 07:16
PROVIDERS: ATTEND Legal Medicine
DX: R18.8 Other ascites (principal)
CPT/HCPCS: 87070; 36415; 89050; 85049; 84157; 85610; 85730; 96365; 49083; P9047 ×2

== ENCOUNTER 2024-12-12 07:56 | Day surgery (SDC) | payer OTHER, BC ==
[2024-12-12 08:52] VITALS: O2SAT 97; BMI 30.7
[2024-12-12] MEDS: ALBUMIN HUMAN 25% 200 ML IV ONE (10:08)
--- NOTE | 2024-12-12 10:44 | RAD REPORT ---
PROCEDURE: ULTRASOUND GUIDED PARACENTESIS CLINICAL INDICATION: ASCITES PROCEDURE DETAILS: Consent: Informed consent for the procedure including risks, benefits and alternatives was obtained a nd time-out was performed prior to the procedure. Preparation: The site was prepared and draped using maximal sterile barrier technique including cutan eous antisepsis. Procedure: Initial limited abdominal ultrasound was performed and a large amount of ascites was seen. A safe window for paracentesis was identified with ultrasound to blanca a suitable access site. Local anesthesia was administered. The peritoneal cavity was accessed, and fluid return confirmed pos ition. A 8F pigtail drainage catheter was placed and ascites was drained. The catheter was removed, and a sterile bandage was applied. Following the procedure, albumin was administered per protocol. IMPRESSION: Ultrasound guided paracentesis, yielding 3.9 mL of yellow fluid. PLAN: Aspirated fluid was sent for analysis.
[2024-12-12 11:59] VITALS: BP 137/41; TEMP 98.2
[2024-12-12 15:46] LABS: Body Fluid Source PERITONEAL; Color of fluid Yellow (COLORLESS); Tube # SINGLE
[2024-12-12 15:51] LABS: Body Fluid WBC 31 /mm^3; Fluid Total Cells Count 50
[2024-12-12 15:56] LABS: Appearance CLEAR (CLEAR); Body Fluid Lymphocytes 30 %
== END 2024-12-12 11:42 | disposition home or self-care (01) ==
LOC: DS 07:56
PROVIDERS: ATTEND Legal Medicine
DX: R18.8 Other ascites (principal)
CPT/HCPCS: 87070; 36415; 89050; 84157; 96365; 49083; P9047

== ENCOUNTER 2024-12-26 07:48 | Day surgery (SDC) | payer OTHER, BC ==
[2024-12-26 08:39] VITALS: BMI 30.7
--- NOTE | 2024-12-26 09:45 | RAD REPORT ---
PROCEDURE: ULTRASOUND GUIDED PARACENTESIS CLINICAL INDICATION: ASCITES PROCEDURE DETAILS: Consent: Informed consent for the procedure including risks, benefits and alternatives was obtained a nd time-out was performed prior to the procedure. Preparation: The site was prepared and draped using maximal sterile barrier technique including cutan eous antisepsis. Procedure: Initial limited abdominal ultrasound was performed and a large amount of ascites was seen. A safe window for paracentesis was identified with ultrasound to blanca a suitable access site. Local anesthesia was administered. The peritoneal cavity was accessed, and fluid return confirmed pos ition. A 8F pigtail drainage catheter was placed and ascites was drained. The catheter was removed, and a sterile bandage was applied. Following the procedure, albumin was administered per protocol. IMPRESSION: Ultrasound guided paracentesis, high volume. PLAN: Aspirated fluid was sent for analysis.
[2024-12-26] MEDS: ALBUMIN HUMAN 25% 300 ML IV ONE (10:17)
[2024-12-26 11:44] VITALS: O2SAT 96
[2024-12-26 11:45] VITALS: TEMP 98
[2024-12-26 12:14] VITALS: BP 171/49
[2024-12-26 13:13] LABS: Appearance CLEAR (CLEAR); Body Fluid Source PERITONEAL; Color of fluid Yellow (COLORLESS)
[2024-12-26 13:14] LABS: Body Fluid Lymphocytes 42 %; Body Fluid WBC 21 /mm^3; Fluid Total Cells Count 100
== END 2024-12-26 11:34 | disposition home or self-care (01) ==
LOC: DS 07:48
PROVIDERS: ATTEND Legal Medicine
DX: R18.8 Other ascites (principal)
CPT/HCPCS: 87070; 36415; 89050; 84157; 96365; 49083; 96366; P9047

== ENCOUNTER → 2025-01-02 | Day surgery (SDC) | payer OTHER, BC ==
[~2025-01-02] MED LIST changes: +ALBUMIN HUMAN 25% 200 ML IV ONE; -ALBUMIN HUMAN 25% 300 ML IV ONE
[2025-01-02 07:48] LABS: MPV 8.1 fL (7.6-11.3); Platelets 77 thou/uL (152-406)
[2025-01-02 07:53] VITALS: BMI 30.7
[2025-01-02 08:26] LABS: Protime INR 1.72
[2025-01-02 11:32] LABS: Appearance CLEAR (CLEAR); Body Fluid Lymphocytes 28 %; Body Fluid Source PERITONEAL; Body Fluid WBC 33 /mm^3; Color of fluid Yellow (COLORLESS); Fluid Total Cells Count 100; Tube # SINGLE
--- NOTE | 2025-01-02 12:56 | RAD REPORT ---
PROCEDURE: ULTRASOUND GUIDED PARACENTESIS CLIN[facility] INDICATION: [facility] PROCEDURE DETAILS: Consent: Informed consent for the procedure including risks, benefits and alternatives was obtained a nd time-out was performed prior to the procedure. Preparation: The site was prepared and draped using maximal sterile barrier technique including cutan eous antisepsis. Procedure: Initial limited abdominal ultrasound was performed and a large amount of ascites was seen. A safe window for paracentesis was identified with ultrasound to blanca a suitable access site. Local anesthesia was administered. The peritoneal cavity was accessed, and fluid return confirmed pos ition. A 6F catheter was placed and clear straw-colored ascites was drained. A total volume of 4.7 L were drained. The catheter was removed, and a sterile bandage was applied. Following the procedure, albumin was administered per protocol. IMPRESSION: Successful ultrasound-guided diagnostic and therapeuticparacentesis. PLAN: Aspirated fluid was sent for analysis.
[2025-01-02 13:49] VITALS: BP 167/47; O2SAT 97
[2025-01-02 13:51] VITALS: TEMP 97.3
== END ==
LOC: DS 07:11
PROVIDERS: ATTEND Legal Medicine
DX: R18.8 Other ascites (principal)
CPT/HCPCS: 87070; 36415; 89050; 85049; 84157; 85610; 85730; 96365; 49083; P9047

== ENCOUNTER 2025-01-03 08:45 | Inpatient (IN) | payer OTHER, BC ==
[2025-01-03 09:44] LABS: Absolute Eosinophils 0.1 K/uL (0-0.5); Absolute Lymphocytes (CBC) 0.4 K/uL (0.7-4.9); Absolute Monocytes 0.2 K/uL (0.1-1.3); Absolute Neutrophil 3.2 K/uL (1.8-8.0); Basophils % 1.2 % (0-1.3); Eosinophils % 2.3 % (0-4.4); Hemoglobin 9.5 g/dL (12.0-15.0); Lymphocytes % 9.7 % (15.3-44.8); MCH 30.5 pg (27.0-35.0); MCHC 32.8 g/dL (32.0-36.0); MCV 93.1 fL (80-100); MPV 7.5 fL (7.6-11.3); Monocytes % 4.5 % (3.3-12.3); Neutrophils % 82.3 % (41.7-73.7); Nucleated Red Blood Cells % 0.1 % (0-0); RBC Red Blood Cell Count 3.12 M/uL (3.86-4.86); Red Cell Distribution Width 15.9 % (12.1-15.2)
[2025-01-03 09:46] LABS: PT Prothrombin Time 18.3 SECONDS (9.4-12.5); PTT, Activated Partial Thromb 37.2 SECONDS (24.3-36.9); Protime INR 1.75
[2025-01-03 09:47] LABS: Platelets 64 thou/uL (152-406)
[2025-01-03 09:57] LABS: Albumin 3.4 g/dL (3.4-5.0); Albumin/Globulin Ratio 1.1 (1.1-1.8); Anion Gap 7.6 mEq/L (5.0-15.0); Globulin 3.1 g/dL (2.3-3.5); Potassium 4.6 mEq/L (3.5-5.1); Protein, Total 6.5 g/dL (6.4-8.2); Troponin High Sensitivity 33.5 pg/mL (<58.9)
--- NOTE | 2025-01-03 10:45 | RAD REPORT ---
Procedure: Chest Single View HISTORY: Alteration of consciousness COMPARISON: 2023 FINDINGS: The lungs appear clear of acute infiltrate. Small left pleural effusion. The heart is mildly enlarged.
[2025-01-03 10:55] LABS: Specific Gravity 1.015 (1.005-1.030); Sqamous Epithelial <5 /HPF (None Seen); Urine Bacteria <20 /HPF (<20); Urine Bilirubin NEGATIVE (Negative); Urine Blood 2+ (Negative); Urine Clarity Turbid (Clear); Urine Color Yellow (Yellow); Urine Culture Reflex Order REFLEXED; Urine Glucose NEGATIVE (Negative); Urine Ketones NEGATIVE (Negative); Urine Microscopic Reflex YN ORDER UMIC; Urine Nitrite NEGATIVE (Negative); Urine Protein 1+ (Negative); Urine Urobilinogen Normal (Normal); Urine WBC >50 /HPF (<5); Urine pH 5.5 (5.0-7.0)
[2025-01-03] MEDS ORDERED: LACTULOSE 20 GM/30 ML UCUP ONE (11:07)
[2025-01-03] MEDS ORDERED: CEFTRIAXONE 1000 MG/VIAL ONE (11:07)
[2025-01-03] MEDS ORDERED: NA CHLORIDE 0.9% 50 ML ONE (11:07)
[2025-01-03] MEDS ORDERED: ONDANSETRON 4 MG/2 ML VIAL ONE (11:28)
--- NOTE | 2025-01-03 11:28 | EDPHYS ---
Physician Documentation [facility] Name: Rena Burch Age: 74 yrs Sex: Female : 1950 Arrival Date: 01/03/2025 Time: 08:45 Bed 5 Private MD: ED Physician Irving Ledesma HPI: 01/03 09:36 This 74 yrs old Female presents to ER via EMS with complaints of Altered Mental Status. sp3 09:36 74-year-old female with history of COPD, diabetes, liver failure currently on liver sp3 transplant list in [place], [facility], who gets paracentesis every Thursday who had 4 L removed yesterday, now presents to the ED with altered mental status and concerns by family of elevated ammonia and/or possible urinary tract infection. Patient has had similar symptoms in the past with both of those etiologies. Patient is still verbal and answers questions although family reports decreased responsiveness. No reported trauma, bleeding or any other symptoms reported by family based on their observations or from patient communication. Limited history, physical and ROS secondary to above.. Historical: - Allergies: 08:54 aspartame; ph 08:54 Aspirin; ph - PMHx: 08:54 COPD; Diabetes - IDDM; fatty liver; Hypertension; Liver failure (currently on liver ph transplant list); Paracentesis; Psoriatic Arthritis; - Immunization history:: Adult Immunizations unknown. - Infectious Disease History:: unable to obtain. - Social history:: Smoking status: unknown. ROS: 09:37 Unable to obtain ROS due to altered mental status, sp3 Exam: 09:37 Constitutional: This is a well developed, well nourished patient who is awake, alert, sp3 and in no acute distress. Head/Face: Normocephalic, atraumatic. Eyes: Pupils equal round and reactive to light, extra-ocular motions intact. Lids and lashes normal. Conjunctiva and sclera are non-icteric and not injected. Cornea within normal limits. Periorbital areas with no swelling, redness, or edema. Neck: Trachea midline, no thyromegaly or masses palpated, and no cervical lymphadenopathy. Supple, full range of motion without nuchal rigidity, or vertebral point tenderness. No Meningismus. Chest/axilla: Normal chest wall appearance and motion. Nontender with no deformity. No lesions are appreciated. Cardiovascular: Regular rate and rhythm with a normal S1 and S2. No gallops, murmurs, or rubs. Normal PMI, no JVD. No pulse deficits. Respiratory: Lungs have equal breath sounds bilaterally, clear to auscultation and percussion. No rales, rhonchi or wheezes noted. No increased work of breathing, no retractions or nasal flaring. Abdomen/GI: Soft, non-tender, with normal bowel sounds. No distension or tympany. No guarding or rebound. No evidence of tenderness throughout. MS/ Extremity: Pulses equal, no cyanosis. Neurovascular intact. Full, normal range of motion. 09:37 Neuro: Patient moving all extremities and grossly neurologically intact. Decreased mental status noted. No focal deficits noted., 10:25 ECG was reviewed by the Attending Physician. EKG demonstrates normal sinus rhythm at 55 sp3 bpm with QTc of [address]'s ST changes without evidence of acute ischemia. Vital Signs: 08:48 BP 202 / 67; Pulse 60; Resp 18; Temp 97.4; Pulse Ox 100% on R/A; ph 10:26 BP 199 / 57; Pulse 61; Resp 16 S; Pulse Ox 100% on R/A; kc6 10:59 BP 200 / 50; Pulse 52; Resp 18; Pulse Ox 100% on R/A; ph 13:01 BP 186 / 50; Pulse 59; Resp 18; Pulse Ox 95% on R/A; ph 14:00 BP 178 / 54; Pulse 57; Resp 18; Pulse Ox 98% on R/A; ph 15:00 BP 184 / 52; Pulse 61; Resp 18; Temp 97.5; Pulse Ox 99% on R/A; ph [place] Coma Score: 10:59 Eye Response: spontaneous(4). Motor Response: localizes pain(5). Verbal Response: ph confused(4). Total: 13. MDM: 09:06 Medical Screening Exam initiated sp3 09:38 Data reviewed: vital signs, nurses notes, EMS record, old medical records, lab test sp3 result(s), EKG, radiologic studies. ED course: 74-year-old female with altered mental status. Differential diagnosis includes hyperammonemia/hepatic encephalopathy, UTI, pneumonia, dehydration, electrolyte abnormality, among others. I am not highly suspicious of acute GA, septic shock, CVA, or any other critical process. Workup will include labs including ammonia, EKG, urinalysis, chest x-ray and general supportive care with pharmacological intervention as indicated. Probable admission on disposition.. 11:27 ED course: Treatment started with lactulose, Rocephin and patient will be admitted to [facility].. 01/03 09:07 Order name: Blood Culture Adult (2) [facility] 01/03 09:07 Order name: CBC with Diff; Complete Time: 10:49 [facility] 01/03 09:07 Order name: CMP; Complete Time: 10:49 [facility] 01/03 09:07 Order name: Lactate w/ 2H reflex if indic.; Complete Time: 10:49 [facility] 01/03 09:07 Order name: Protime (+inr); Complete Time: 10:49 [facility] 01/03 09:07 Order name: Ptt, Activated; Complete Time: 10:49 [facility] 01/03 09:07 Order name: Urinalysis w/ reflexes; Complete Time: 10:57 [facility] 01/03 09:07 Order name: Troponin High Sensitivity; Complete Time: 10:49 [facility] 01/03 09:07 Order name: AMMONIA; Complete Time: 10:49 [facility] 01/03 09:08 Order name: BNP; Complete Time: 10:49 [facility] 01/03 10:59 Order name: Urine Culture [facility] 01/03 13:25 Order name: Magnesium [facility] 01/03 13:25 Order name: Phosphorus [facility] 01/03 13:25 Order name: Urinalysis w/ reflexes [facility] 01/03 13:25 Order name: Basic Metabolic Panel [facility] 01/03 13:25 Order name: Basic Metabolic Panel [facility] 01/03 13:25 Order name: CBC with Automated Diff [facility] 01/03 13:25 Order name: CBC with Automated Diff [facility] 01/03 13:25 Order name: NT PRO-BNP [facility] 01/03 13:25 Order name: NT PRO-BNP [facility] 01/03 09:07 Order name: Chest Single View XRAY; Complete Time: 10:49 [facility] 01/03 13:02 Order name: Abdomen ; Complete Time: 14:33 [facility] 01/03 09:07 Order name: Accucheck; Complete Time: 09:09 [facility] 01/03 09:07 Order name: Cardiac monitoring; Complete Time: 10:25 sp3 01/03 09:07 Order name: EKG - Nurse/Tech; Complete Time: : sp3 01/03 09:07 Order name: IV Saline Lock - Large Bore; Complete Time: : sp3 01/03 09:07 Order name: Labs collected and sent; Complete Time: : sp3 01/03 09:07 Order name: O2 Per Protocol; Complete Time: : sp3 01/03 09:07 Order name: O2 Sat Monitoring; Complete Time: : sp3 01/03 09:07 Order name: Vital Signs; Complete Time: 09: sp3 Administered Medications: 11:31 Drug: Rocephin IV 1 grams IV at calculated rate once; Given slow IV push per pharmacy ph instructions Route: IV; Rate: calculated rate; Site: right forearm; 12:00 Follow up: Response: No adverse reaction; IV Status: Completed infusion ph 11:40 Drug: Ondansetron IVP 4 mg IVP once; over 2 minutes Route: IVP; Site: right forearm; ph 12:00 Follow up: Response: No adverse reaction ph 13:00 Drug: Lactulose PO 20 grams 30 ml PO once Volume: 30 ml; Route: PO; ph 13:30 Follow up: Response: No adverse reaction ph Disposition Summary: 01/03/25 11:27 Hospitalization Ordered Notes: Hospitalization Status: Inpatient Admission sp3 Provider: Octavio Nunn Location: Telemetry/MedSur (Inpatient) sp3 Condition: Stable sp3 Problem: an acute exacerbation sp3 Symptoms: have worsened sp3 Bed/Room Type: Standard sp3 Room Assignment: [facility](01/03/25 13:30) bd Diagnosis - Hepatic encephalopathy, altered mental status, UTI sp3 Forms: - Medication Reconciliation Form sp3 - SBAR form sp3 - Leadership Thank You Letter sp3 Signatures: Dispatcher [employer] EDMS Maria Esther Nova Patricia, RN RN ph Irving Ledesma MD MD sp3 Corrections: (The following items were deleted from the chart) 09:08 09:08 Chest Single View+RAD.RAD.BRZ ordered. EDMS EDMS 13:30 11:27 sp3 bd
--- NOTE | 2025-01-03 11:28 | ER ---
Nurse's Notes [facility] Name: Rena Burch Age: 74 yrs Sex: Female : 1950 Arrival Date: 01/03/2025 Time: 08:45 Bed 5 Private MD: Diagnosis: Hepatic encephalopathy, altered mental status, UTI Presentation: 01/03 08:48 Chief complaint: EMS states: Pt from home, EMS called for AMS, hx of liver failure, had ph paracentesis yesterday, BGL 300s. Coronavirus screen: Vaccine status: unable to obtain. Ebola Screen: No symptoms or risks identified at this time. Initial Sepsis Screen: Does the patient meet any 2 criteria? No. Patient's initial sepsis screen is negative. Does the patient have a suspected source of infection? No. Patient's initial sepsis screen is negative. Risk Assessment: Do you want to hurt yourself or someone else? Patient reports no desire to harm self or others. Onset of symptoms was January 03, 2025. 08:48 Method Of Arrival: EMS: [facility] ph 08:48 Acuity: CHEIKH 2 ph Triage Assessment: 08:55 General: Appears in no apparent distress. Behavior is cooperative. Pain: Denies pain. ph Neuro: Level of Consciousness is awake, confused, lethargic, Oriented to person. Cardiovascular: Capillary refill < 3 seconds in bilateral fingers Patient's skin is warm and dry. Edema is 4+ to left midcalf, left ankle, left foot, right midcalf, right ankle and right foot Rhythm is sinus bradycardia. Respiratory: Airway is patent Respiratory effort is even, unlabored. GI: Abdomen is noted to have ascites. Derm: Skin is jaundiced. Musculoskeletal: Range of motion: intact in all extremities. Historical: - Allergies: 08:54 aspartame; ph 08:54 Aspirin; ph - PMHx: 08:54 COPD; Diabetes - IDDM; fatty liver; Hypertension; Liver failure (currently on liver ph transplant list); Paracentesis; Psoriatic Arthritis; - Immunization history:: Adult Immunizations unknown. - Infectious Disease History:: unable to obtain. - Social history:: Smoking status: unknown. Screenin:59 [facility] ED Fall Risk Assessment (Adult) History of falling in the last 3 months, ph including since admission Yes- fall prone (multiple falls) (3 pts) Confusion or Disorientation Yes (5 pts) Intoxicated or Sedated No (0 pts) Impaired Gait Yes (1 pt) Mobility Assist Device Used Yes (1 pt) Altered Elimination Yes (1 pt) Score/Fall Risk Level 3 or more points = High Risk Oriented to surroundings, Maintained a safe environment, Hourly rounding (assess needs \T\ fall precautionary measures) done, Used ambulatory aids as needed (educated on \T\ assisted with). Abuse screen: Denies threats or abuse. Denies injuries from another. Nutritional screening: No deficits noted. Tuberculosis screening: No symptoms or risk factors identified. Assessment: 11:02 General: SEE TRIAGE ASSESSMENT. ph 13:00 Reassessment: Patient appears in no apparent distress at this time. No changes from ph previously documented assessment. Patient and/or family updated on plan of care and expected duration. Pain level reassessed. 14:30 Reassessment: Patient appears in no apparent distress at this time. No changes from ph previously documented assessment. Patient and/or family updated on plan of care and expected duration. Pain level reassessed. Vital Signs: 08:48 BP 202 / 67; Pulse 60; Resp 18; Temp 97.4; Pulse Ox 100% on R/A; ph 10:26 BP 199 / 57; Pulse 61; Resp 16 S; Pulse Ox 100% on R/A; kc6 10:59 BP 200 / 50; Pulse 52; Resp 18; Pulse Ox 100% on R/A; ph 13:01 BP 186 / 50; Pulse 59; Resp 18; Pulse Ox 95% on R/A; ph 14:00 BP 178 / 54; Pulse 57; Resp 18; Pulse Ox 98% on R/A; ph 15:00 BP 184 / 52; Pulse 61; Resp 18; Temp 97.5; Pulse Ox 99% on R/A; ph [place] Coma Score: 10:59 Eye Response: spontaneous(4). Motor Response: localizes pain(5). Verbal Response: ph confused(4). Total: 13. ED Course: 08:48 Patient arrived in ED. ph 08:54 Triage completed. ph 08:54 Arm band placed on Patient placed in an exam room, on a stretcher, on library monitor, ph on pulse oximetry. 09:06 Irving Ledesma MD is Attending Physician. sp3 09:09 Machuca, Arminda, RN is Primary Nurse. ph 09:30 Initial lab(s) drawn, by me, sent to lab. Maintain EMS IV. Dressing intact. Good blood ph return noted. Site clean \T\ dry. Gauge \T\ site: 22 RFA. Flushed with 10 mL NS. 10:00 EKG done, by ED staff, reviewed by Irving Ledesma MD. ph 10:13 Chest Single View XRAY In Process Unspecified. EDMS 10:25 Patient has correct armband on for positive identification. Bed in low position. Call kc6 light in reach. Side rails up X2. Adult w/ patient. court monitor on. Pulse ox on. NIBP on. Door closed. Noise minimized. Lights dimmed. Warm blanket given. Pillow given. 10:25 Urine collected: Guzman catheter specimen. Guzman cath inserted, using sterile technique, ph 16 Fr., by me, balloon inflated, to gravity drainage, urine specimen collected. returned clear yellow urine. 11:27 Octavio Nunn is Hospitalizing Provider. sp3 13:28 Abdomen In Process Unspecified. EDMS 15:24 No provider procedures requiring assistance completed. Patient admitted, IV remains in ph place. Administered Medications: 11:31 Drug: Rocephin IV 1 grams IV at calculated rate once; Given slow IV push per pharmacy ph instructions Route: IV; Rate: calculated rate; Site: right forearm; 12:00 Follow up: Response: No adverse reaction; IV Status: Completed infusion ph 11:40 Drug: Ondansetron IVP 4 mg IVP once; over 2 minutes Route: IVP; Site: right forearm; ph 12:00 Follow up: Response: No adverse reaction ph 13:00 Drug: Lactulose PO 20 grams 30 ml PO once Volume: 30 ml; Route: PO; ph 13:30 Follow up: Response: No adverse reaction ph Medication: 10:59 VIS not applicable for this client. ph Outcome: 11:27 Decision to Hospitalize by Provider. sp3 15:24 Admitted to Med/surg accompanied by tech, via stretcher, with chart, ph 15:24 Condition: stable 15:24 Instructed on the need for admit, 15:28 Patient left the ED. ph Signatures: Dispatcher [employer] EDSD Arminda Machuca RN RN ph Irving Ledesma MD MD sp3 Nilda Manley RN RN [facility] Corrections: (The following items were deleted from the chart) 13:01 13:01 Ondansetron IVP 4 mg IVP in right forearm ph ph
[2025-01-03] MEDS ORDERED: ACETAMINOPHEN 325 MG TABLET PO PRN ×2 (12:58→12:59)
[2025-01-03] MEDS ORDERED: ONDANSETRON 4 MG/2 ML VIAL IV PRN (13:23)
[2025-01-03] MEDS ORDERED: HYDROCODONE/APAP 5/325 MG TAB PO PRN (13:24)
--- NOTE | 2025-01-03 13:25 | P.HP ---
Certification for Inpatient Patient admitted to: Inpatient With expected LOS: >2 Midnights Patient will require the following post-hospital care: None Practitioner: I am a practitioner with admitting privileges, knowledge of patient current condition, hospital course, and medical plan of care. Services: Services provided to patient in accordance with Admission requirements found in Title 42 Section 412.3 of the Code of Federal Regulations <SergeyroyalJoseemili Henry - Last Filed: 01/03/25 21:27> Patient History Date of Service: 01/03/25 History of Present Illness: Patient is a 74-year-old female with a past medical history significant for COPD, DM2, hypertension, Liver failure currently on transplant list, paracentesis weekly who presents with complaint of altered mental status. Patient had a paracentesis yesterday and 4 Lwas removed. Patient is alert and oriented x 1, confused and unable to provide any reliable history. Patient noted right hand swelling and bilateral lower extremity edema. Per report from nursing staff patient has not been compliant with her home medications. Associated signs and symptoms include abdominal distention. No other signs and symptoms noted or reported. Patient was brought to the hospital for medical evaluation - Past Medical/Surgical History Diabetic: Yes -: CirrhosisNASH -: Diabetes mellitus type 2 -: Hypertension -: Anemia -: Psoriatic arthritis -: COPD -: CKD IV (Dr. Pearce/ Dr. Nicholson) -: LIZETTE Mastectomy and reconstruction -: Hysterectomy -: Right Ankle Sx -: Right Wrist Sx Psychosocial/ Personal History: Lives at home with family, daughter - Family History Father -: Heart disease Mother -: Diabetes, Cancer Notes: Breast - Social History Smoking Status: Never smoker Alcohol use: No CD- Drugs: No Caffeine use: Yes Place of Residence: Home <Ronal Nj - Last Filed: 01/03/25 21:27> Date of Service: 01/03/25 <Ru Nguyen - Last Filed: 01/27/25 05:17> Allergies aspartame Allergy (Verified 01/02/25 08:20) Nausea/Vomiting nutra sweet Allergy (Uncoded 01/02/25 08:20) Nausea/Vomiting Home Medications: Atorvastatin Calcium 10 mg PO BEDTIME 07/01/21 Omeprazole [Prilosec] 40 mg PO DAILY 07/01/21 Ensure Max Protein 330 ml PO BID can 01/15/24 Ferrous Sulfate [Ferrous Sulfate*] 325 mg PO DAILY tab 01/15/24 Iron/FA/Vit B-Com W/C [Hemocyte Plus*] 1 tab PO DAILY WITH BREAKFAST #30 tab 01/15/24 Rifaximin [Xifaxan] 550 mg PO BID #60 01/15/24 Spironolactone [Aldactone*] 25 mg PO DAILY #30 tab 01/15/24 guaiFENesin [Robitussin 100MG/5ML*] 10 ml PO QIDP PRN #20 01/15/24 Lactulose [Cephulac*] 30 ml PO BID 06/04/24 Silver Sulfadiazine Crm [Silvadene*] 1 appl TOP BID 30 Days #1 tube 06/09/24 Amlodipine [Norvasc*] 10 mg PO DAILY #30 tab 01/08/25 Doxycycline Hyclate 100 mg PO BID #12 cap 01/08/25 Propranolol [Inderal*] 20 mg PO BID #60 tab 01/08/25 Review of Systems is unable to be obtained <Ronal Nj E - Last Filed: 01/03/25 21:27> Physical Examination - Physical Exam General: Alert, Oriented x1, Cooperative HEENT: Atraumatic, PERRLA, Mucous membr. moist/pink, EOMI, Sclerae nonicteric Neck: Supple, 2+ carotid pulse no bruit, No LAD, Without JVD or thyroid abnormality Respiratory: Clear to auscultation bilaterally, Normal air movement Cardiovascular: Regular rate/rhythm, Normal S1 S2, Edema Capillary refill: <2 Seconds Gastrointestinal: Normal bowel sounds, Soft and benign, No tenderness Musculoskeletal: No clubbing, No tenderness, Swelling Integumentary: No rashes Neurological: Normal speech, Normal strength at 5/5 x4 extr, Normal tone, Normal affect Lymphatics: No axilla or inguinal lymphadenopathy - Studies Laboratory Data (last 24 hrs) 01/03/25 01/03/25 01/03/25 09:25 09:25 09:25 WBC 3.90 L Hgb 9.5 L Hct 29.0 L Plt Count 64 L PT 18.3 H INR 1.75 APTT 37.2 H Sodium 142 Potassium 4.6 BUN 43 H Creatinine 2.22 H Glucose 200 H Total Bilirubin 4.0 H AST 39 H ALT 19 Alkaline Phosphatase 122 H <Ronal Nj - Last Filed: 01/03/25 21:27> Assessment and Plan - Plan Acute metabolic encephalopathy. --Likely secondary to UTI. --Continue supportive care. UTI POA. --Continue antibiotics --Urine cultures pending. Decompensated liver cirrhosis. --Status post weekly paracentesis. Last one was yesterday with 4 L extracted. --CT abdomen indicates Prominent liver cirrhosis with mild ascites and Bilateral [id number] pleural effusions with left base atelectasis. --Continue Lasix and home medications DM2 --BS monitoring with sliding scale insulin COPD --Stable. --Continue home medications. Hypertension --Poorly controlled. --Continue home medications -- Hydralazine as needed for SBP greater than 160 mmHg Pancytopenia. --Continue supportive care. ELLIOT\GERD --Continue home medications. DVT prophylaxis with SCDs. Discharge Plan: Home Plan to discharge in: Greater than 2 days - Advance Directives Does patient have a Living Will: No Does patient have a Durable POA for Healthcare: No - Code Status/Comfort Care Code Status Assessed: Yes Code Status: Full Code Physician Review: Patient Assessed, Agree with Above Assessment and Plan Critical Care: No <Ronal Nj - Last Filed: 01/03/25 21:27> Date of Service: 01/03/25 Chart has been reviewed. Events of the last 24 hours have been noted. Case discussed with ANTHONY. I performed a substantial part of the MDM during this patient's care today. I personally made or approved the documented management plan and acknowledge its risk of complications. I agree with the findings and documentation provided in the ANTHONY's notes <Ru Nguyen - Last Filed: 01/27/25 05:17>
--- NOTE | 2025-01-03 13:47 | RAD REPORT ---
EXAMINATION: CT ABDOMEN AND PELVIS WITHOUT CONTRAST CLINICAL INDICATION: ABD pain, Ascites TECHNIQUE: CT abdomen and pelvis was performed, without IV contrast, as per department protocol. Axia l, sagittal and coronal reconstructions were obtained. One or more of the following dose reduction techniques were used: Automated exposure control, adjustment of the mA and kV according to the patien t size, and iterative reconstruction. Unless otherwise specified, incidental findings do not require dedicated imaging follow-up. COMPARISON: 06/05/2024 FINDINGS: The lack of intravenous contrast limits the sensitivity of this exam for evaluation of solid visceral organs, vascular structures, and retroperitoneum. LOWER CHEST: Bilateral pleural effusions are present, moderate on the left. Atelectasis is present in the left lung base. LIVER:Significant liver cirrhosis is present. The spleen is mildly prominent. Grossly unremarkable ga llbladder. SPLEEN: Normal size. No focal lesion. PANCREAS: No mass, ductal dilation, or efrain-pancreatic fluid. ADRENALS: Normal; no mass. KIDNEYS AND URETERS: Normal size and contour. No hydronephrosis. URINARY BLADDER: Normal contour. GASTROINTESTINAL TRACT: No evidence of bowel obstruction, significant free fluid, free air or abscess . Moderate stool retained in the colon. APPENDIX: Appendix not visualized, but no inflammatory changes in region of appendix. LYMPH NODES: No lymphadenopathy. MUSCULOSKELETAL: Mild multilevel spinal degenerative changes. ADDITIONAL FINDINGS: Mild ascites. IMPRESSION: Prominent liver cirrhosis with mild ascites. Bilateral [id number] pleural effusions with left base atelectasis.
[2025-01-03 16:42] VITALS: BMI 30.4
[2025-01-03] MEDS: FUROSEMIDE 40 MG/4 ML VIAL IV SCH (17:53)
[2025-01-03] MEDS: HYDRALAZINE HCL 20 MG/ML VIAL IV PRN (17:53)
[2025-01-03] MEDS: AMLODIPINE 5 MG TAB PO SCH (19:59)
[2025-01-03] MEDS: HEPARIN 5000 UNIT/ML 1 ML VIAL SQ SCH (19:59)
[2025-01-03] MEDS: METOPROLOL TAR 50 MG TAB PO SCH (20:13)
[2025-01-03] MEDS: Rifaximin 550 MG Tab PO SCH (20:13)
[2025-01-03] MEDS ORDERED: guaiFENesin 100 MG/5 ML UCUP PO PRN (21:22)
[2025-01-04 04:47] LABS: Absolute Eosinophils 0.2 K/uL (0-0.5); Absolute Lymphocytes (CBC) 0.5 K/uL (0.7-4.9); Absolute Monocytes 0.5 K/uL (0.1-1.3); Basophils % 0.3 % (0-1.3); Eosinophils % 2.9 % (0-4.4); Hematocrit 23.3 % (36.0-45.0); Hemoglobin 7.6 g/dL (12.0-15.0); Lymphocytes % 10.2 % (15.3-44.8); MCH 30.2 pg (27.0-35.0); MCHC 32.8 g/dL (32.0-36.0); MCV 92.1 fL (80-100); MPV 8.2 fL (7.6-11.3); Monocytes % 9.6 % (3.3-12.3); Nucleated Red Blood Cells % 0.1 % (0-0); Platelets 60 thou/uL (152-406); RBC Red Blood Cell Count 2.53 M/uL (3.86-4.86); Red Cell Distribution Width 16.2 % (12.1-15.2)
[2025-01-04 05:01] LABS: Anion Gap 7.5 mEq/L (5.0-15.0); Phosphorus 2.8 mg/dL (2.5-4.9); Potassium 4.5 mEq/L (3.5-5.1)
[2025-01-04] MEDS: PANTOPRAZOLE 40MG TABLET PO SCH (06:15)
[2025-01-04] MEDS: FERROUS SULFATE 325 MG TAB PO SCH (08:51)
[2025-01-04] MEDS: FE SULF/FA/VIT B COMP & C TAB PO SCH (08:51)
[2025-01-04] MEDS: SPIRONOLACTONE 25 MG TABLET PO SCH (08:51)
[2025-01-04] MEDS: LACTULOSE 20 GM/30 ML UCUP PO SCH (08:51)
[2025-01-04] MEDS: CEFTRIAXONE 1,000 MG in NA CHLORIDE 0.9% 50 ML IVPB SCH (08:52)
[2025-01-04] MEDS: ENSURE MAX PROTEIN 330 ML LIQUID PO SCH (08:59)
[2025-01-04] MEDS ORDERED: LACTULOSE 20 GM/30 ML UCUP PO SCH (09:00)
[2025-01-04] MEDS: SILVER SULFADIAZINE 1% 50 GM TOP SCH (09:00)
--- NOTE | 2025-01-04 16:29 | CON ---
Date of Consultation: 01/04/2025 Reason For Consultation: Elevated BUN and creatinine. 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 The patient came to the hospital yesterday for paracentesis. The patient found to have altered mental status. For that reason, the patient was admitted to the hospital. Found to have elevation in BUN and creatinine. For that reason, we have been consulted. The patient denied taking any nonsteroidal. No IV contrast. The patient admitted that she know that she has kidney disease, reviewing the record for the patient. Baseline creatinine back in July 2024 1.7 with GFR of 30. The patient has home medications being on omeprazole, Lasix, and spironolactone. The patient also found to have UTI. The patient denied any fever. Past Medical History: Includes: 1. Cirrhosis secondary to LEE. 2. Hypertension. 3. Hyperlipidemia. 4. Anemia. 5. COPD. Past Surgical History: Includes: 1. Hysterectomy. 2. Right ankle surgery. Family History: Positive for CAD and hypertension. Social History: Denied smoking. Denied drinking. Denied drugs abuse. Home Medications: Includes atorvastatin, omeprazole, amlodipine, Ensure, ferrous sulfate, metoprolol, spironolactone, Lasix. Allergies: No known drugs allergies Review of Systems: Head and Neck: No red eye. No ear pain. GI: Has increased abdominal girth. : No polyuria. No dysuria. No hematuria. No foamy urine. 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 Respiratory: No shortness of breath. Cardiovascular: No chest pain. Endocrine: No polydipsia. Skin: No rash. Neuro: Has neuropathy. Musculoskeletal: Generalized fatigue. Physical Examination: Vital Signs: When I saw the patient, blood pressure 163/63, pulse of 63, afebrile. Chest: Clear to auscultation. Heart: S1, S2. Regular. Systolic murmur. Abdomen: Ascites. No guarding or rebound. Extremities: No edema. Neurologic: Alert. No focality. No weakness. Laboratory Data: WBC 5.2, hemoglobin 7.6, sodium 145, potassium 4.5, bicarb 26, BUN 44, creatinine 2.5, GFR of 19, calcium 8.9, phosphorus 2.8, magnesium of 2. CT abdomen: Normal size kidney, no hydronephrosis. Current Medications: The patient on include IV iron, amlodipine, metoprolol, spironolactone, atorvastatin, Lasix. Assessment And Plan: 1. Acute kidney injury secondary to cardiorenal/hepatorenal syndrome. Looked to me the patient currently on the normal volume to the wet side. I am going to go ahead and hold the Lasix for the time being and hold spironolactone and we will start gentle hydration and we will follow up. 2. Obstructive uropathy, has been ruled out. 3. I am going to send for PTH and protein creatinine. 4. Urinary tract infection. Continue current antibiotic. We will follow up with the Primary. Obstructive uropathy has been ruled out. 5. Hypertension. Currently, blood pressure uncontrolled with the presence of acute kidney injury. We will hold the diuresis, hold spironolactone. Increase amlodipine to 10 mg and I am going to go ahead and replace the beta-cici to nonselective given the cirrhosis and we will follow up the patient. 6. Ascites, status post paracentesis, as by Primary. Time spent examining the patient [id number] reviewing data lab and an audiology placing order discussing the case with the patient discussing the case with the steamboat inspector including hospitalist and nursing staff more than 55-minute TATE Voice ID: [id number] Report ID: [id number] MTDD
--- NOTE | 2025-01-04 18:22 | P.PN ---
Date of Service: 01/04/25 Subjective Awake, conversing well no new complaints ROS 10 point ROS as noted above, otherwise negative Physical Exam General: Alert and Oriented x3, Cooperative HEENT: Atraumatic, PERRLA, MMM, EOMI Neck: Supple, 2+ carotid pulse no bruit, No LAD, Without JVD or thyroid abnormality Respiratory: Clear BBS, Normal air movement, on RA Cardiovascular: RRR, Normal S1 S2, no murmur noted Capillary refill: <2 Seconds Gastrointestinal: Normal bowel sounds, Soft and non tender on palpation Musculoskeletal: No clubbing, No tenderness, Swelling Integumentary: No rashes Neurological: Normal speech, Normal strength at 5/5 x4 extr, Vitals Reviewed Problem list Acute metabolic encephalopathy 2/2 UTI Decompensated liver cirrhosis with ascites CKD DM2 Hypertension Pancytopenia Hx ELLIOT GERD COPD Assessment and Plan Acute metabolic encephalopathy 2/2 UTI -Continue supportive care -Continue Rocephin -Urine cultures pending Decompensated liver cirrhosis with ascites -Status post weekly paracentesis. Last one was yesterday with 4 L extracted. -CT abdomen indicates Prominent liver cirrhosis with mild ascites and Bilateral bjoef-[id number] pleural effusions with left base atelectasis. -Hold lasix per nephrology -Ammonia 82/79 CKD -nephrology consulted -BUN/Creatinine 44/2.53, GFR 19 -Gentle IVF DM2 -Accucheck with sliding scale insulin Hypertension -Poorly controlled -increase amlodipine 10 mg -Hydralazine as needed for SBP greater than 160 mmHg Pancytopenia Hx ELLIOT - Continue to monitor in morning labs - hold anticoagulants -continue home medications GERD COPD -Continue home medications DVT prophylaxis with SCDs. Full code LOS 2 days
[2025-01-04] MEDS: ATORVASTATIN 10 MG TAB PO SCH (21:08)
[2025-01-04] MEDS: PROPRANOLOL HCL 10 MG TAB PO SCH (21:08)
[2025-01-05 04:40] LABS: Percent Reticulocyte Count 1.58 % (0.4-2.05); RBC Red Blood Cell Count 2.43 M/uL (3.86-4.86)
[2025-01-05 05:16] LABS: Albumin 2.4 g/dL (3.4-5.0); Anion Gap 7.7 mEq/L (5.0-15.0); Phosphorus 2.7 mg/dL (2.5-4.9); Potassium 4.7 mEq/L (3.5-5.1); Thyroid Stimulating Hormone 2.44 uIU/mL (0.358-3.740); Uric Acid 11.1 mg/dL (2.6-6.0)
[2025-01-05 06:37] LABS: Absolute Eosinophils 0.1 K/uL (0-0.5); Absolute Lymphocytes (CBC) 0.6 K/uL (0.7-4.9); Absolute Monocytes 0.5 K/uL (0.1-1.3); Absolute Neutrophil 3.9 K/uL (1.8-8.0); Basophils % 0.7 % (0-1.3); Eosinophils % 2.4 % (0-4.4); Hematocrit 22.4 % (36.0-45.0); Hemoglobin 7.6 g/dL (12.0-15.0); MCH 30.9 pg (27.0-35.0); MCHC 33.7 g/dL (32.0-36.0); MCV 91.5 fL (80-100); MPV 8.8 fL (7.6-11.3); Monocytes % 9.1 % (3.3-12.3); Neutrophils % 75.8 % (41.7-73.7); Nucleated Red Blood Cells % 0.1 % (0-0); Platelets 65 thou/uL (152-406); RBC Red Blood Cell Count 2.45 M/uL (3.86-4.86)
[2025-01-05 07:45] LABS: Agglutinates, Cold (RBC Morph) NOTED; Blood Morphology Comment NOTED (NOT SEEN); Platelet Estimate DECR; White Blood Cell Scan OK (OK)
[2025-01-05] MEDS: AMLODIPINE 10 MG TAB PO SCH (08:25)
--- NOTE | 2025-01-05 13:03 | P.PN ---
Date of Service: 01/05/25 Subjective Sleeping comfortably, awakens easily, conversing no new complaints ROS 10 point ROS as noted above, otherwise negative Physical Exam General: AAOx3, Cooperative HEENT: Atraumatic, PERRLA Neck: Supple, 2+ carotid pulse no bruit, No LAD, Without JVD or thyroid abnormality Respiratory: nonlabored breathing, Normal air movement, on RA Cardiovascular: RRR, Normal S1 S2, no murmur noted Capillary refill: <2 Seconds Gastrointestinal: Normal bowel sounds, Soft on palpation Musculoskeletal: No clubbing, No tenderness, Swelling Integumentary: No rashes Neurological: Normal speech, Normal strength at 5/5 x4 extr, Vitals Reviewed Problem list Acute metabolic encephalopathy 2/2 UTI Decompensated liver cirrhosis with ascites CKD DM2 Hypertension Pancytopenia Hx ELLIOT GERD COPD Assessment and Plan Acute metabolic encephalopathy -Continue supportive care -Continue Rocephin -Urine cultures pending Decompensated liver cirrhosis with ascites -Status post weekly paracentesis. Last one with 4 L extracted. -CT abdomen indicates Prominent liver cirrhosis with mild ascites and Bilateral [id number] pleural effusions with left base atelectasis. -Hold lasix per nephrology -Ammonia 82/79 CKD -nephrology consulted -monitor BUN/Creatinine daily -Gentle IVF DM2 -Accucheck with sliding scale insulin Hypertension -Poorly controlled -amlodipine 10 mg -Hydralazine as needed for SBP greater than 160 mmHg Pancytopenia Hx ELLIOT - Continue to monitor in morning labs - hold anticoagulants -continue home medications GERD COPD -Continue home medications Interval Hospital course 01/05/25 -Creatinine trending up, will give gentle IVF with albumin -Nephrology following -continue to monitor in the AM -continue to monitor blood pressure with adjustment to amlodipine -afebrile, no reported UTI symptoms DVT prophylaxis with SCDs. Full code LOS 2 days
[2025-01-05] MEDS: NA CHLORIDE 0.9% 1,000 ML IV SCH (15:19)
[2025-01-05] MEDS: ALBUMIN HUMAN 25% 50 ML IV ONE (15:19)
--- NOTE | 2025-01-05 19:57 | PN ---
Date of Progress Note: 01/05/2025 Subjective: The patient was admitted for elective paracentesis. The patient found to have acute kidney injury. The patient denied any nausea, any vomiting. Diuresis has been stopped. Physical Examination: Vital Signs: Blood pressure 150/66, pulse of 65, afebrile. Chest: Clear to auscultation. Heart: S1, S2. Regular. Abdomen: Ascites. Extremities: Trace edema. Neurologic: Alert. No focality. Laboratory Data: Hemoglobin 7.6. Sodium 143, potassium 4.7, bicarb 25. BUN 48; creatinine 2.6, trending up. GFR of 19. Uric acid 11.1. Calcium 8.3. Iron saturation 69. Current Medications: The patient on include deferoxamine, ferrous sulfate, amlodipine, atorvastatin, Inderal, Tylenol, Zofran. Assessment And Plan: 1. Acute kidney injury, possible secondary to prerenal, superimposed with questionable hepatorenal. Kidney function continues to decline. I am going to keep holding diuresis. Start hydration for the patient with albumin and midodrine for fluid expansion, and we will follow up. 2. Hypertension, controlled, optimal. Continue current treatment. We will start midodrine for hepatorenal treatment. 3. Hepatorenal syndrome with acute kidney injury. We will start albumin, IV fluid, and midodrine. We will follow up with the primary. 4. Ascites, status post paracentesis. We will follow up with GI. Time spent examining the patient [id number] reviewing data lab and an audiology placing order discussing the case with the patient discussing the case with the recruiting team lead including hospitalist and nursing staff more than 55-minute TATE Voice ID: [id number] Report ID: [id number] JOLANTA
[2025-01-05] MEDS: ENSURE CLEAR 200 ML CAN PO SCH (21:00)
[2025-01-05] MEDS: MIDODRINE HCL 5 MG TABLET PO SCH (21:00)
[2025-01-05] MEDS: ALBUMIN HUMAN 25% 100 ML IV SCH (21:21)
[2025-01-06 02:32] LABS: UR PROTEIN 16.6 mg/dL (<11.9); Urine Protein/Creatinine Ratio 0.11 ratio (<0.15)
[2025-01-06 04:44] LABS: Absolute Eosinophils 0.1 K/uL (0-0.5); Absolute Lymphocytes (CBC) 0.6 K/uL (0.7-4.9); Absolute Monocytes 0.7 K/uL (0.1-1.3); Absolute Neutrophil 4.4 K/uL (1.8-8.0); Basophils % 0.4 % (0-1.3); Eosinophils % 2.4 % (0-4.4); Hematocrit 21.1 % (36.0-45.0); Hemoglobin 7.1 g/dL (12.0-15.0); Lymphocytes % 9.8 % (15.3-44.8); MCH 30.8 pg (27.0-35.0); MCHC 33.7 g/dL (32.0-36.0); MCV 91.6 fL (80-100); MPV 8.8 fL (7.6-11.3); Monocytes % 11.4 % (3.3-12.3); Nucleated Red Blood Cells % 0.1 % (0-0); Platelets 53 thou/uL (152-406); RBC Red Blood Cell Count 2.31 M/uL (3.86-4.86); Red Cell Distribution Width 16.1 % (12.1-15.2)
[2025-01-06 05:12] LABS: Albumin 2.6 g/dL (3.4-5.0); Anion Gap 6.8 mEq/L (5.0-15.0); Magnesium 2.1 mg/dL (1.6-2.4); Phosphorus 2.7 mg/dL (2.5-4.9); Potassium 4.8 mEq/L (3.5-5.1)
--- NOTE | 2025-01-06 14:43 | P.PN ---
Date of Service: 01/06/25 Subjective Sleeping comfortably, awakens easily, conversing no new complaints ROS 10 point ROS as noted above, otherwise negative Physical Exam General: AAOx3, Cooperative Neck: Supple, 2+ carotid pulse no bruit Respiratory: nonlabored breathing, Normal air movement, on RA Cardiovascular: RRR, Normal S1 S2, no murmur noted Capillary refill: <2 Seconds Gastrointestinal: Normal bowel sounds, Soft on palpation Musculoskeletal: No clubbing, No tenderness, Swelling Integumentary: No rashes Neurological: Normal speech, Normal strength at 5/5 x4 extr, Vitals Reviewed Problem list Acute metabolic encephalopathy 2/2 UTI Decompensated liver cirrhosis with ascites CKD Anemia of chronic disease DM2 Hypertension Pancytopenia Hx ELLIOT GERD COPD Assessment and Plan Acute metabolic encephalopathy -Continue supportive care -Continue Rocephin -Urine cultures pending Decompensated liver cirrhosis with ascites -Status post weekly paracentesis. Last one with 4 L extracted. -CT abdomen indicates Prominent liver cirrhosis with mild ascites and Bilateral hsmpq-qp-luanwhhf pleural effusions with left base atelectasis. -Hold lasix per nephrology -Ammonia 82/79 CKD Anemia of chronic disease -nephrology consulted -monitor BUN/Creatinine daily -Gentle IVF -Transfuse when Hgb <7 DM2 -Accucheck with sliding scale insulin Hypertension -Poorly controlled -amlodipine 10 mg -Hydralazine as needed for SBP greater than 160 mmHg Pancytopenia Hx ELLIOT - Continue to monitor in morning labs - hold anticoagulants -continue home medications GERD COPD -Continue home medications Interval Hospital course 01/05/25 -Creatinine trending up, will give gentle IVF with albumin -Nephrology following -continue to monitor in the AM -continue to monitor blood pressure with adjustment to amlodipine -afebrile, no reported UTI symptoms 01/06/25 Monitoring H/H, transfuse PRN Nephrology following, albumin with gentle IVF changes to antihypertensives for better blood pressure control DVT prophylaxis with SCDs. Full code LOS 2 days
--- NOTE | 2025-01-06 22:33 | PN ---
Date of Progress Note: 01/06/2025 Chief Complaint: Acute kidney injury. Subjective: The patient was admitted to the hospital for paracentesis. The patient was found to hav e acute kidney injury. The patient denies nausea, vomiting. Diuretics were stopped. Review of Systems: Denies chest pain, palpitation. Physical Examination: Lungs: Diminished breath sounds at bases. Heart: S1, S2. Abdomen: Soft, benign. Extremities: No edema. Impression And Plan: 1. Acute kidney injury, possible secondary to prerenal azotemia superimposed with questionable hepato renal syndrome. Renal function declined. Diuretic on hold. Start mild hydration. Continue IV albu min and midodrine. 2. Hypertension, controlled, optimal. Continue current treatment. Continue midodrine for past hepat orenal syndrome. 3. Hepatorenal syndrome with acute kidney injury. Continue midodrine and IV fluids. 4. Ascites, status post paracentesis. The patient will follow up with GI. YAEL/CASEY Voice ID: [id number] Report ID: [id number]
[2025-01-07 04:50] LABS: Absolute Basophils 0.1 K/uL (0-0.5); Absolute Eosinophils 0.2 K/uL (0-0.5); Absolute Lymphocytes (CBC) 0.6 K/uL (0.7-4.9); Absolute Monocytes 0.6 K/uL (0.1-1.3); Absolute Neutrophil 4.8 K/uL (1.8-8.0); Basophils % 0.9 % (0-1.3); Eosinophils % 3.6 % (0-4.4); Hemoglobin 7.6 g/dL (12.0-15.0); Lymphocytes % 9.2 % (15.3-44.8); MCH 30.5 pg (27.0-35.0); MCHC 32.9 g/dL (32.0-36.0); MCV 92.9 fL (80-100); MPV 9.2 fL (7.6-11.3); Neutrophils % 76.3 % (41.7-73.7); Nucleated Red Blood Cells % 0.1 % (0-0); Platelets 65 thou/uL (152-406); RBC Red Blood Cell Count 2.48 M/uL (3.86-4.86); Red Cell Distribution Width 16.4 % (12.1-15.2)
[2025-01-07 05:14] LABS: Albumin 2.7 g/dL (3.4-5.0); Magnesium 2.2 mg/dL (1.6-2.4); Phosphorus 3.1 mg/dL (2.5-4.9)
[2025-01-07] MEDS: ALBUMIN HUMAN 25% 100 ML IV SCH (11:15)
--- NOTE | 2025-01-07 11:20 | P.PN ---
Date of Service: 01/07/25 Subjective Mentation improved will start PT today No new complaints ROS 10 point ROS as noted above, otherwise negative Physical Exam General: Alert and oriented x3, calm/Cooperative Neck: Supple, 2+ carotid pulse no bruit Respiratory: nonlabored breathing, Normal air movement, on RA Cardiovascular: Regular rate and rhythm, Normal S1 S2 present, no murmur noted Capillary refill: <2 Seconds Gastrointestinal: Normal active bowel sounds, nontender Musculoskeletal: No clubbing, No tenderness, Swelling Integumentary: No rashes Neurological: Normal speech, Normal strength at 5/5 x4 extr, Vitals Reviewed Problem list Acute metabolic encephalopathy 2/ UTI Decompensated liver cirrhosis with ascites CKD Anemia of chronic disease DM2 Hypertension Pancytopenia Hx ELLIOT GERD COPD Assessment and Plan Acute metabolic encephalopathy -Continue supportive care -Continue Rocephin -Urine cultures pending Decompensated liver cirrhosis with ascites -Status post weekly paracentesis. Last one with 4 L extracted. -CT abdomen indicates Prominent liver cirrhosis with mild ascites and Bilateral [id number] pleural effusions with left base atelectasis. -Hold lasix per nephrology -Ammonia 82/79 CKD Anemia of chronic disease -nephrology consulted -monitor BUN/Creatinine daily -Gentle IVF -Transfuse when Hgb <7 DM2 -Accucheck with sliding scale insulin Hypertension -Poorly controlled -amlodipine 10 mg -Hydralazine as needed for SBP greater than 160 mmHg Pancytopenia Hx ELLIOT - Continue to monitor in morning labs - hold anticoagulants -continue home medications GERD COPD -Continue home medications Interval Hospital course 01/05/25 -Creatinine trending up, will give gentle IVF with albumin -Nephrology following -continue to monitor in the AM -continue to monitor blood pressure with adjustment to amlodipine -afebrile, no reported UTI symptoms 01/06/25 Monitoring H/H, transfuse PRN Nephrology following, albumin with gentle IVF changes to antihypertensives for better blood pressure control 01/07/25 Urine culture showing MRSA, will start Doxycycline PO PT ordered today Nephrology continues to follow kidney function, UOP 775 ml (01/06) Tolerating albumin and gentle IVF H/H remains stable DVT prophylaxis with SCDs. Full code LOS 2 days
[2025-01-07] MEDS ORDERED: VANCOMYCIN 1 GM in NA CHLORIDE 0.9% 250 ML IVPB SCH (12:00)
[2025-01-07] MEDS: DOXYCYCLINE 100 MG CAP PO SCH (12:52)
--- NOTE | 2025-01-07 19:43 | PN ---
Date of Progress Note: 01/07/2025 Subjective: No overnight events. Creatinine improved 3.5. Continue gentle hydration, PT, OT. Objective: Vital Signs: Temperature 98.3, pulse rate 56, blood pressure 151/74. General: Awake and alert, not in distress. Neck: Supple. No elevated JVD. Heart: Regular rate and rhythm. Normal S1, S2. Chest: Clear to auscultation bilaterally. No rales or wheezes. Abdomen: Soft, nontender. Extremities: No edema. Laboratory Data: Sodium 141, potassium of 5, BUN 59, creatinine 2.7. Medications: Include, amlodipine, Lipitor, doxycycline, , IV fluid, rifaximin. Assessment And Plan: 1. Acute on chronic kidney disease. Baseline creatinine about 1. 8, TITO less likely due to to hepatorenal syndrome. The patient's creatinine improving. Continue gentle hydration 2.liver cirrhosis, currently compensated. Continue midodrine. Her liver cirrhosis, currently compensated. Blood pressure on the high side. We will discontinue midodrine. Continue rifaximin. 3. Metabolic encephalopathy, possibly due to urinary tract infection. Monitor lactulose. Continue antibiotic. 4. Diabetes mellitus. Continue sliding scale insulin. 5. Anemia of chronic disease. Iron saturation >30% , not candidate for IV Iron Thanks for allowing me to participate in patient's care. Total time spent 55 minutes including documentation, reviewing labs, and placing orders. CORRIE Voice ID: [id number] Report ID: [id number] JOLANTA
[2025-01-07 21:29] VITALS: O2SAT 94
[2025-01-08 06:17] LABS: Absolute Eosinophils 0.2 K/uL (0-0.5); Absolute Lymphocytes (CBC) 0.6 K/uL (0.7-4.9); Absolute Monocytes 0.6 K/uL (0.1-1.3); Absolute Neutrophil 3.4 K/uL (1.8-8.0); Basophils % 1.1 % (0-1.3); Eosinophils % 4.1 % (0-4.4); Hematocrit 22.6 % (36.0-45.0); Hemoglobin 7.4 g/dL (12.0-15.0); Lymphocytes % 12.4 % (15.3-44.8); MCH 30.4 pg (27.0-35.0); MCHC 32.8 g/dL (32.0-36.0); MCV 92.8 fL (80-100); MPV 8.9 fL (7.6-11.3); Monocytes % 11.9 % (3.3-12.3); Neutrophils % 70.5 % (41.7-73.7); Nucleated Red Blood Cells % 0.1 % (0-0); Platelets 60 thou/uL (152-406); RBC Red Blood Cell Count 2.44 M/uL (3.86-4.86); Red Cell Distribution Width 16.4 % (12.1-15.2)
[2025-01-08 06:28] LABS: Albumin 3.4 g/dL (3.4-5.0); Anion Gap 10.8 mEq/L (5.0-15.0); Magnesium 2.2 mg/dL (1.6-2.4); Phosphorus 3.2 mg/dL (2.5-4.9); Potassium 4.8 mEq/L (3.5-5.1)
--- NOTE | 2025-01-08 13:24 | P.DS ---
Admission Date: 01/03/25 Discharge Date: 01/08/25 Disposition: DC HOME/HOME HEALTH CARE Discharge Condition: FAIR Brief History of Present Illness: Patient is a 74-year-old female with a past medical history significant for COPD, DM2, hypertension, Liver failure currently on transplant list, paracentesis weekly who presented with complaint of altered mental status. Patient had a paracentesis on day prior and 4 Lwas removed. Patient appeared, confused and unable to provide any reliable history. Patient noted right hand swelling and bilateral lower extremity edema. Per report from nursing staff patient has not been compliant with her home medications. Ammonia level was 82 on presentation. Blood work showed TITO. Patient was hospitalized for further management of hepatic encephalopathy and acute kidney injury. Hospital Course: Diagnosis Acute metabolic encephalopathy 2/2 UTI Decompensated liver cirrhosis with ascites CKD Anemia of chronic disease DM2 Hypertension Pancytopenia Hx ELLIOT GERD COPD Patient admitted to the medical floor and the following medical problems addressed Acute metabolic encephalopathy/hepatic encephalopathy Patient treated with lactulose, rifaximin Ammonia level improved Mental status improved to baseline Acute cystitis without hematuria Urine culture grew Enterococcus faecalis and MRSA, both organisms sensitive to doxycycline. Patient was treated with IV vancomycin and Rocephin and transition to oral doxycycline on discharge. Decompensated liver cirrhosis with ascites Patient undergoes weekly paracentesis. Last one with [address] abdomen indicates Prominent liver cirrhosis with mild ascites and Bilateral ntzyk-zs-[id number] pleural effusions with left base atelectasis. Lasix held due to TITO. TITO improved, Lasix resumed on discharge Aldactone is on hold per nephrology due to TITO. Acute on chronic kidney disease stage IV Anemia of chronic disease Nephrology evaluated patient and assisted with management. Patient treated briefly with IV hydration. Serum creatinine improved to baseline Hemoglobin was stable. Patient did not require blood transfusion. DM2 -Accucheck with sliding scale insulin Hypertension Treated with amlodipine 10 mg daily. Patient was also placed on propranolol for both BP and portal hypertension Pancytopenia Hx ELLIOT Iron supplementation. Thrombocytopenia likely related to chronic liver disease. GERD COPD Continued home medications. Vital Signs/Physical Exam: Temp Pulse Resp BP Pulse Ox 98.8 F 62 18 157/66 H 91 01/08/25 12:00 01/08/25 12:00 01/08/25 12:00 01/08/25 12:00 01/08/25 12:00 General: Alert, In no apparent distress, Oriented x2 HEENT: Mucous membr. moist/pink Neck: Supple, JVD not distended Respiratory: Clear to auscultation bilaterally, Normal air movement Cardiovascular: No edema, Regular rate/rhythm, Normal S1 S2 Gastrointestinal: Normal bowel sounds, Soft and benign, Other (Ascites) Musculoskeletal: No swelling, No tenderness Integumentary: No rashes, No cyanosis Neurological: Normal speech, Normal strength at 5/5 x4 extr Laboratory Data at Discharge: WBC 4.70 thou/uL (4.3-10.9) 01/08/25 05:48 Hgb 7.4 g/dL (12.0-15.0) L 01/08/25 05:48 Hct 22.6 % (36.0-45.0) L 01/08/25 05:48 Plt Count 60 thou/uL (152-406) L 01/08/25 05:48 PT 18.3 SECONDS (9.4-12.5) H 01/03/25 09:25 INR 1.75 01/03/25 09:25 APTT 37.2 SECONDS (24.3-36.9) H 01/03/25 09:25 Sodium 142 mEq/L (136-145) 01/08/25 05:48 Potassium 4.8 mEq/L (3.5-5.1) 01/08/25 05:48 BUN 58 mg/dL (7-18) H 01/08/25 05:48 Creatinine 2.68 mg/dL (0.55-1.02) H 01/08/25 05:48 Glucose 185 mg/dL (74-106) H 01/08/25 05:48 Uric Acid 11.1 mg/dL (2.6-6.0) H 01/05/25 04:20 Phosphorus 3.2 mg/dL (2.5-4.9) 01/08/25 05:48 Magnesium 2.2 mg/dL (1.6-2.4) 01/08/25 05:48 Total Bilirubin 4.0 mg/dL (0.2-1.0) H 01/03/25 09:25 AST 39 U/L (15-37) H 01/03/25 09:25 ALT 19 U/L (13-56) 01/03/25 09:25 Alkaline Phosphatase 122 U/L (45-117) H 01/03/25 09:25 Home Medications: Atorvastatin Calcium 10 mg PO BEDTIME 07/01/21 Omeprazole [Prilosec] 40 mg PO DAILY 07/01/21 Ensure Max Protein 330 ml PO BID can 01/15/24 Ferrous Sulfate [Ferrous Sulfate*] 325 mg PO DAILY tab 01/15/24 Iron/FA/Vit B-Com W/C [Hemocyte Plus*] 1 tab PO DAILY WITH BREAKFAST #30 tab 01/15/24 Rifaximin [Xifaxan] 550 mg PO BID #60 01/15/24 Spironolactone [Aldactone*] 25 mg PO DAILY #30 tab 01/15/24 guaiFENesin [Robitussin 100MG/5ML*] 10 ml PO QIDP PRN #20 01/15/24 Lactulose [Cephulac*] 30 ml PO BID 06/04/24 Silver Sulfadiazine Crm [Silvadene*] 1 appl TOP BID 30 Days #1 tube 06/09/24 Amlodipine [Norvasc*] 10 mg PO DAILY #30 tab 01/08/25 Doxycycline Hyclate 100 mg PO BID #12 cap 01/08/25 Propranolol [Inderal*] 20 mg PO BID #60 tab 01/08/25 New Medications: Doxycycline Hyclate 100 mg PO BID #12 cap Propranolol [Inderal*] 20 mg PO BID #60 tab Amlodipine [Norvasc*] 10 mg PO DAILY #30 tab Physician Discharge Instructions: Weekly paracentesis recommended [facility]) Continuing Size Cutter Call Jana Calvert MA at [phone] for questions or concerns after discharge. Expect a call within 1-2 business days of discharge. Alternate: Melba Lama MA at [phone] Diet: AHA Activity: Fall precautions Followup: Marilynn Faye MD [Primary Care Provider] - 1-2 Weeks Time spent managing pt's care (in minutes): 38
[2025-01-08 13:37] LABS: Abnormal Protein Band 1 REPORT; Albumin, (SPE) 2.7 g/dL (3.8-4.8); Alpha-1-Globulins 0.1 g/dL (0.2-0.3); Alpha-2-Globulins 0.2 g/dL (0.5-0.9); Beta 1 Globulin 0.2 g/dL (0.4-0.6); Gamma Globulins 1.1 g/dL (0.8-1.7); INTERPRETATION REPORT; Total Protein 4.7 g/dL (6.1-8.1)
[2025-01-08 19:53] VITALS: BP 151/67; TEMP 98.2
--- NOTE | 2025-01-09 12:30 | EKG ---
Test Date: 2025-01-03 Test Time: 10:14:45 Data Operations Director: PH MEASUREMENT RESULTS: Intervals: Rate: 55 [place]: QRSD: 88 QT: 464 QTc: 443 [place]: P: [place]: QRS: 58 T: 111 INTERPRETIVE STATEMENTS: Junctional rhythm ST & T wave abnormality, consider lateral ischemia Abnormal ECG Compared to ECG 07/19/2024 11:32:44 Junctional rhythm now present ST (T wave) deviation now present Possible ischemia now present Sinus bradycardia no longer present Electronically Signed On 01-09-25 12:17:48 HOST COORDINATOR by Renato Mendez
== END 2025-01-08 18:50 | disposition home health service (06) | DRG 441 ==
LOC: ER 08:45 → ERHOLD 13:17 → 2ND 14:02
PROVIDERS: ADMIT Internal Medicine; ATTEND Internal Medicine
DX: K76.82 Hepatic encephalopathy (principal); G93.41 Metabolic encephalopathy; N30.00 Acute cystitis without hematuria; D61.818 Other pancytopenia; R18.8 Other ascites; N17.9 Acute kidney failure, unspecified; N18.4 Chronic kidney disease, stage 4 (severe); K76.6 Portal hypertension; I12.9 Hypertensive chronic kidney disease with stage 1 through stage 4 chronic kidney disease, or unspecified chronic kidney disease; E11.22 Type 2 diabetes mellitus with diabetic chronic kidney disease; D63.1 Anemia in chronic kidney disease; D50.9 Iron deficiency anemia, unspecified; K74.60 Unspecified cirrhosis of liver; K21.9 Gastro-esophageal reflux disease without esophagitis; D69.59 Other secondary thrombocytopenia; J44.9 Chronic obstructive pulmonary disease, unspecified; B95.2 Enterococcus as the cause of diseases classified elsewhere; B95.62 Methicillin resistant Staphylococcus aureus infection as the cause of diseases classified elsewhere; Z88.6 Allergy status to analgesic agent; Z88.8 Allergy status to other drugs, medicaments and biological substances; Z76.82 Awaiting organ transplant status; Z90.13 Acquired absence of bilateral breasts and nipples; Z90.710 Acquired absence of both cervix and uterus; Z91.148 Patient's other noncompliance with medication regimen for other reason
CPT/HCPCS: 36415; 49083; 51702; 71045; 74176; 80048; 80053; 80069; 81001; 82140; 82570; 82607; 82728; 82947; 83540; 83605; 83735; 83880; 83970; 84100; 84156; 84157; 84165; 84443; 84466; 84484; 84550; 85025; 85044; 85049; 85610; 85730; 87040; 87070; 87077; 87086; 87088; 87186; 89050; 93005; 96365; 96375; 97116; 97161; 99285; J0360; J0696; J1644; J1940; J2405; J7030; P9047

== ENCOUNTER 2025-01-20 07:30 | Day surgery (SDC) | payer OTHER, BC ==
[2025-01-20 08:44] VITALS: BMI 30.7
[2025-01-20] MEDS: ALBUMIN HUMAN 25% 300 ML IV ONE (09:38)
[2025-01-20 10:44] VITALS: BP 120/54; TEMP 98.4; O2SAT 98
--- NOTE | 2025-01-20 11:10 | RAD REPORT ---
PROCEDURE: Paracentesis Proc Guidance CLINICAL INDICATION: Liver disease with ascites TECHNIQUE: The risks, benefits and alternatives to the procedure explained to the patient and informed consent o btained. The skin and deeper tissues anesthetized with lidocaine. Under sonographic guidance an 8.3 Swedish catheter was advanced into the right lower quadrant. 6 L of yellow fluid removed. Fluid sent to lab. Patient experienced no immediate consultation. IMPRESSION: Paracentesis
[2025-01-20 12:45] LABS: Body Fluid WBC 42 /mm^3
[2025-01-20 13:48] LABS: Body Fluid Source PERITONEAL; Color of fluid Yellow (COLORLESS); Tube # SINGLE
[2025-01-20 13:49] LABS: Appearance CLEAR (CLEAR); Color of Supernate Not Xanthochromic (Not Xantho)
[2025-01-20 13:52] LABS: Body Fluid Lymphocytes 59 %; Fluid Total Cells Count 100
== END 2025-01-20 11:20 | disposition home or self-care (01) ==
LOC: DS 07:30
PROVIDERS: ATTEND Legal Medicine
DX: R18.8 Other ascites (principal)
CPT/HCPCS: 87070; 36415; 89050; 84157; 96365; 49083; 96366; P9047

== ENCOUNTER 2025-01-23 14:01 | Inpatient (IN) | payer OTHER, BC ==
--- NOTE | 2025-01-23 15:06 | RAD REPORT ---
EXAM: CT brain without contrast HISTORY: Dizziness COMPARISON: 2022 TECHNIQUE: Multiple contiguous axial images were obtained and a CT of the brain without contrast.. Sagittal and coronal reconstruction performed. Automated exposure control, adjustment of the mA and/or kV according to patient size, and/or iterative reconstruction. Unless otherwise specified, incidental f indings do not require dedicated imaging follow-up FINDINGS: An intracranial bleed is not seen Ventricles are normal caliber No extra-axial fluid collection noted Moderate low-density paraventricular, deep and subcortical white matter probably ischemic changes sec ondary to small vessel disease. No significant change since the prior examination. No fluid within the visualized sinuses or mastoids noted. IMPRESSION: No acute intracranial abnormality noted. If the patient continues to have symptoms to suggest an acute intracranial abnormality then MRI of th e brain would be recommended.
--- NOTE | 2025-01-23 15:18 | RAD REPORT ---
Procedure: Chest Single View HISTORY: Cough COMPARISON: December 2024 FINDINGS: The lungs appear clear of acute infiltrate. No significant pleural effusion noted. The heart is normal size. IMPRESSION: No acute abnormality is displayed.
[2025-01-23] MEDS ORDERED: CEFTRIAXONE 1000 MG/VIAL ONE (15:23)
[2025-01-23] MEDS ORDERED: NA CHLORIDE 0.9% 500 ML ONE ×2 (15:23→16:51)
[2025-01-23] MEDS ORDERED: NA CHLORIDE 0.9% 2,000 ML ONE (15:23)
[2025-01-23 15:26] LABS: PT Prothrombin Time 24.5 SECONDS (10-13.0); Protime INR 2.23
[2025-01-23 15:27] LABS: Absolute Eosinophils 0.2 K/uL (0-0.5); Absolute Lymphocytes (CBC) 0.6 K/uL (0.7-4.9); Absolute Monocytes 0.7 K/uL (0.1-1.3); Absolute Neutrophil 3.9 K/uL (1.8-8.0); Basophils % 0.6 % (0-1.3); Eosinophils % 3.8 % (0-4.4); Hematocrit 14.2 % (36.0-45.0); Lymphocytes % 10.2 % (15.3-44.8); MCH 31.9 pg (27.0-35.0); MCHC 32.9 g/dL (32.0-36.0); MCV 97.1 fL (80-100); MPV 9.2 fL (7.6-11.3); Monocytes % 13.6 % (3.3-12.3); Neutrophils % 71.8 % (41.7-73.7); Nucleated Red Blood Cells % 0.1 % (0-0); Platelets 86 thou/uL (152-406); RBC Red Blood Cell Count 1.46 M/uL (3.86-4.86)
[2025-01-23 15:42] LABS: Hemoglobin 4.7 g/dL (12.0-15.0)
[2025-01-23 15:43] LABS: Albumin/Globulin Ratio 1.2 (1.1-1.8); Anion Gap 14.7 mEq/L (5.0-15.0); Bilirubin Direct 0.9 mg/dL (0-0.2); Bilirubin Indirect, Calculated 1.3 mg/dL (0.2-0.8); Bilirubin Total 2.2 mg/dL (0.2-1.0); Globulin 2.5 g/dL (2.3-3.5); Magnesium 2.7 mg/dL (1.6-2.4); Potassium 5.7 mEq/L (3.5-5.1); Protein, Total 5.5 g/dL (6.4-8.2); Troponin High Sensitivity 31.5 pg/mL (<58.9)
[2025-01-23] MEDS ORDERED: PANTOPRAZOLE 40 MG INJ ONE (15:48)
[2025-01-23 15:50] LABS: Influenza A Ag Negative; Influenza B Ag Negative; SARS-CoV-2 Antigen Rapid Res Negative (Negative)
[2025-01-23 15:55] LABS: Specific Gravity 1.015 (1.005-1.030); Sqamous Epithelial None Seen /HPF (None Seen); Urine Bacteria None Seen /HPF (<20); Urine Bilirubin NEGATIVE (Negative); Urine Blood 1+ (Negative); Urine Clarity Extremely Turbid (Clear); Urine Color Dark-Orange (Yellow); Urine Crystals Unidentified Few /HPF (None Seen); Urine Culture Reflex Order REFLEXED; Urine Glucose NEGATIVE (Negative); Urine Ketones NEGATIVE (Negative); Urine Microscopic Reflex YN ORDER UMIC; Urine Nitrite NEGATIVE (Negative); Urine Protein 2+ (Negative); Urine RBC 21-50 /HPF (None Seen); Urine Urobilinogen Normal (Normal); Urine WBC >50 /HPF (<5); Urine WBC Clump Many /HPF (None Seen); Urine Yeast (Budding) Many /HPF (None Seen); Urine pH 5.5 (5.0-7.0)
[2025-01-23] MEDS ORDERED: NA CHLORIDE 0.9% 100 ML ONE (16:12)
[2025-01-23] MEDS ORDERED: Meropenem 1000 MG/VIAL IV ONE (16:12)
[2025-01-23] MEDS ORDERED: SOD POLYSTYREN SUL 15 GM/60 ML UCUP ONE (16:12)
[2025-01-23] MEDS ORDERED: LACTULOSE 20 GM/30 ML UCUP ONE (16:13)
--- NOTE | 2025-01-23 16:25 | EDPHYS ---
Physician Documentation [facility] Name: Rena Burch Age: 74 yrs Sex: Female : 1950 Arrival Date: 01/23/2025 Time: 14:01 Bed 13 Private MD: ED Physician Denny Weber HPI: 01/23 16:00 This 74 yrs old Female presents to ER via EMS with complaints of Altered eliazar Mental Status, General Weakness. 16:00 The patient presents with confusion, trouble concentrating. Onset: The symptoms/episode eliazar began/occurred 3 day(s) ago. Possible causes: CVA or TIA, head injury, low blood sugar, seizure. Associated signs and symptoms: Pertinent positives: abdominal pain, confusion. Current symptoms: In the emergency department the patient's symptoms are unchanged from the initial presentation. Patient's baseline: Neuro: alert and fully oriented. The patient has experienced similar episodes in the past, multiple times. Historical: - Allergies: 14:15 aspartame; kc6 14:15 Aspirin; kc6 - PMHx: 14:15 COPD; Diabetes - IDDM; fatty liver; Hypertension; Liver failure (currently on liver kc6 transplant list); Paracentesis; Psoriatic Arthritis; - PSHx: 14:15 Unable to Obtain; kc6 - Immunization history:: Adult Immunizations unknown. - Infectious Disease History:: Denies. - Social history:: Smoking status: unknown. ROS: 16:02 Constitutional: Negative for fever, chills, and weight loss, ENT: Negative for injury, eliazar pain, and discharge, Neck: Negative for injury, pain, and swelling, Cardiovascular: Negative for chest pain, palpitations, and edema, Respiratory: Negative for shortness of breath, cough, wheezing, and pleuritic chest pain, Abdomen/GI: Negative for abdominal pain, nausea, vomiting, diarrhea, and constipation, Back: Negative for injury and pain, : Negative for injury, bleeding, discharge, and swelling, MS/Extremity: Negative for injury and deformity, Psych: Negative for depression, anxiety, suicide ideation, homicidal ideation, and hallucinations, Allergy/Immunology: Negative for hives, rash, and allergies, Endocrine: Negative for neck swelling, polydipsia, polyuria, polyphagia, and marked weight changes, Hematologic/Lymphatic: Negative for swollen nodes, abnormal bleeding, and unusual bruising, 16:02 Eyes: Positive for pale conjuntiva, 16:02 Abdomen/GI: Positive for abdominal distension, 16:02 Skin: Positive for pallor, 16:02 Neuro: Positive for altered mental status, weakness, Exam: 16:02 Head/Face: Normocephalic, atraumatic. ENT: Nares patent. No nasal discharge, no eliazar septal abnormalities noted. Tympanic membranes are normal and external auditory canals are clear. Oropharynx with no redness, swelling, or masses, exudates, or evidence of obstruction, uvula midline. Mucous membranes moist. Neck: Trachea midline, no thyromegaly or masses palpated, and no cervical lymphadenopathy. Supple, full range of motion without nuchal rigidity, or vertebral point tenderness. No Meningismus. Chest/axilla: Normal chest wall appearance and motion. Nontender with no deformity. No lesions are appreciated. Cardiovascular: Regular rate and rhythm with a normal S1 and S2. No gallops, murmurs, or rubs. Normal PMI, no JVD. No pulse deficits. Abdomen/GI: Soft, non-tender, with normal bowel sounds. No distension or tympany. No guarding or rebound. No evidence of tenderness throughout. Back: No spinal tenderness. No costovertebral tenderness. Full range of motion. Female : Normal external genitalia. MS/ Extremity: Pulses equal, no cyanosis. Neurovascular intact. Full, normal range of motion., bilateral aka Neuro: Awake and alert, GCS 15, oriented to person, place, time, and situation. Cranial nerves II-XII grossly intact. Motor strength 5/5 in all extremities. Sensory grossly intact. Cerebellar exam normal. Normal gait. Psych: Awake, alert, with orientation to person, place and time. Behavior, mood, and affect are within normal limits. 16:02 Constitutional: The patient appears obviously ill, 16:02 Eyes: Conjunctiva: pale, bilaterally, 16:02 Skin: Appearance: Color: pale, Temperature: normal temperature, Moisture: normal moisture, petechiae, not noted, abscess, not appreciated, cellulitis, is not appreciated, induration, is not appreciated, 16:02 Neuro: Orientation: to person, Not oriented to place, time, situation, Mentation: slow to respond, confused, Memory: immediate memory is impaired, remote memory is impaired, recent memory is impaired, Motor: is normal, Sensation: is normal, no obvious gross deficits, appropriate no acute changes, Gait: not tested. 16:26 ECG was reviewed by the Attending Physician. eliazar 17:34 Abdomen/GI: Rectal exam: is unremarkable, rectal tone normal, mass, is not appreciated, eliazar swelling, is not appreciated, NO BRBPR, NO MELENA, tenderness, is not appreciated, Liver: no appreciated palpable abnormalities, Hernia: not appreciated, Vital Signs: 14:13 BP 126 / 55; Pulse 51; Resp 18 S; Temp 97.7(O); Pulse Ox 100% on R/A; Weight 81.65 kg kc6 (R); Height 5 ft. 5 in. (R); 15:16 BP 125 / 41; Pulse 49; Resp 19 S; Pulse Ox 96% on R/A; kc6 16:00 BP 119 / 36; Pulse 50; Resp 18 S; Pulse Ox 95% on R/A; kc6 16:30 BP 119 / 42; kc6 17:38 BP 121 / 48; Pulse 53; Resp 18 S; Pulse Ox 96% on R/A; kc6 18:12 BP 120 / 43; Pulse 51; Resp 19 S; Pulse Ox 100% on R/A; kc6 14:13 Body Mass Index 29.95 (81.65 kg, 165.1 cm) kc6 Geo Coma Score: 16:02 Eye Response: spontaneous(4). Motor Response: obeys commands(6). Verbal Response: eliazar oriented(5). Total: 15. MDM: 14:14 Medical Screening Exam initiated eliazar 16:05 Differential Diagnosis altered mental status, sepsis, flu. Differential Diagnosis: CVA, eliazar electrolyte abnormality, hypoglycemia, intracranial bleed, pneumonia, seizure, sepsis, TIA, UTI, volume depletion. Differential diagnosis: diverticulitis, gastritis, gastroesophageal reflux disease, Mesenteric ischemia or infarction, non-specific abd pain, pancreatitis, Peptic Ulcer Disease, Pyelonephritis, Ureterolithiasis, urinary tract infection. Data reviewed: vital signs, nurses notes, EMS record, lab test result(s), EKG, radiologic studies, CT scan, plain films. Consideration of Admission/Observation Patient was admitted/placed on observation. Escalation of care including admission/observation considered. I considered the following discharge prescriptions or medication management in the emergency department Medications were administered in the Emergency Department. See MAR. Independent interpretation of the following test(s) in the Emergency Department EKG: See my EKG interpretation above. Test considered but Not performed: Ultrasound no abd usg. Historians other than the Patient: EMS: ems well informed. Care significantly affected by the following chronic conditions: Diabetes, Hypertension, Chronic Obstructive Pulmonary Disease, Obesity, Chronic Kidney Disease, Liver Disease, copd, dm, iddm. Counseling: I had a detailed discussion with the patient and/or guardian regarding the historical points, exam findings, and any diagnostic results supporting the discharge/admit diagnosis, lab results, radiology results, the need for further work-up and treatment in the hospital. 01/23 14:18 Order name: Basic Metabolic Panel; Complete Time: 15:55 [facility] 01/23 14:18 Order name: CBC with Diff; Complete Time: 17:26 [facility] 01/23 14:18 Order name: LFT's; Complete Time: 15:55 [facility] 01/23 14:18 Order name: Magnesium; Complete Time: 15:55 [facility] 01/23 14:18 Order name: NT PRO-BNP; Complete Time: 15:55 [facility] 01/23 14:18 Order name: PT-INR; Complete Time: 15:43 [facility] 01/23 14:18 Order name: Troponin HS; Complete Time: 15:55 [facility] 01/23 14:18 Order name: Blood Culture Adult (2) [facility] 01/23 14:18 Order name: Lipase; Complete Time: 15:55 [facility] 01/23 14:18 Order name: Urinalysis w/ reflexes; Complete Time: 15:57 [facility] 01/23 14:18 Order name: Lactate w/ 2H reflex if indic.; Complete Time: 15:43 [facility] 01/23 14:18 Order name: COVID-19 Ag + Flu A+B Ag; Complete Time: 15:55 [facility] 01/23 14:37 Order name: AMMONIA; Complete Time: 15:43 kc6 01/23 15:39 Order name: Ghost Lactate-NO COLLECT Timer; Complete Time: 17:39 [facility] 01/23 15:43 Order name: Type And Screen [facility] 01/23 15:51 Order name: Bb Add On bd 01/23 15:58 Order name: Urine Culture [facility] 01/23 16:02 Order name: Packed RBC Leukored [facility] 01/23 16:31 Order name: CBC Smear Scan; Complete Time: 17:26 EDMS 01/23 19:03 Order name: Urinalysis w/ reflexes EDMS 01/23 19:03 Order name: CBC with Automated Diff EDMS 01/23 19:03 Order name: CBC with Automated Diff EDMS 01/23 19:03 Order name: CBC with Automated Diff EDMS 01/23 19:03 Order name: CBC with Automated Diff EDMS 01/23 19:03 Order name: Comprehensive Metabolic Panel EDMS 01/23 19:03 Order name: Comprehensive Metabolic Panel EDMS 01/23 19:03 Order name: Comprehensive Metabolic Panel EDMS 01/23 19:03 Order name: Comprehensive Metabolic Panel EDMS 01/23 19:03 Order name: Magnesium EDMS 01/23 19:03 Order name: Magnesium EDMS 01/23 19:03 Order name: Magnesium EDMS 01/23 19:03 Order name: Magnesium EDMS 01/23 19:06 Order name: Hematocrit EDMS 01/23 19:06 Order name: Hemoglobin EDMS 01/23 14:18 Order name: XRAY Chest (1 view); Complete Time: 15:43 [facility] 01/23 14:18 Order name: CT Head Brain wo Cont; Complete Time: 15:43 [facility] 01/23 15:59 Order name: CT Chest Abdomen Pelvis W/O Contrast; Complete Time: 17:26 [facility] 01/23 19:01 Order name: CONS Physician Consult EDOR 01/23 14:18 Order name: Cardiac monitoring; Complete Time: 14:25 [facility] 01/23 14:18 Order name: EKG - Nurse/Tech; Complete Time: 14:50 eliazar 01/23 14:18 Order name: IV Saline Lock; Complete Time: 14:25 eliazar 01/23 14:18 Order name: Labs collected and sent; Complete Time: 15:21 eliazar 01/23 14:18 Order name: O2 Per Protocol; Complete Time: 14:25 eliazar 01/23 14:18 Order name: O2 Sat Monitoring; Complete Time: 14:25 eliazar 01/23 15:56 Order name: IV Saline Lock - Large Bore; Complete Time: 16:00 eliazar 01/23 16:26 Order name: Transfuse; Complete Time: 18:12 [facility] EC:26 Rate is 51 beats/min. Rhythm is regular. QRS [place] is Normal. OR interval is normal. QRS eliazar interval is normal. QT interval is normal. No Q waves. T waves are Normal. Clinical impression: Sinus bradycardia and No evidence of ischemia. Interpreted by me. Reviewed by me. Administered Medications: 15:56 Drug: NS 0.9% IV (30 ml/kg) 30 ml/kg IV at bolus once; Sepsis Protocol; to be given as kc6 a bolus over 90 minutes Route: IV; Rate: bolus; Site: right antecubital; 18:12 Follow up: Response: No adverse reaction; IV Status: Completed infusion; IV Intake: kc6 2449.5ml 15:56 Drug: Rocephin IV 1 grams IV at per protocol once; Given slow IV push per pharmacy kc6 instructions Route: IV; Rate: per protocol; Site: right antecubital; 17:44 Follow up: Response: No adverse reaction; IV Status: Completed infusion; IV Intake: [id number] 15:56 Drug: Pantoprazole IVP 40 mg IVP once Route: IVP; Site: right hand; kc6 17:44 Follow up: Response: No adverse reaction kc6 16:28 Drug: Kayexalate PO 45 grams PO once Route: PO; kc6 17:44 Follow up: Response: No adverse reaction kc6 16:28 Drug: Lactulose PO 30 grams 45 ml PO once Volume: 45 ml; Route: PO; kc6 17:44 Follow up: Response: No adverse reaction kc6 16:28 Drug: Meropenem IV 1 grams IV at per protocol once; (mix in NS 100 mL) Route: IV; Rate: kc6 per protocol; Site: right antecubital; 17:43 Follow up: Response: No adverse reaction; IV Status: Completed infusion; IV Intake: kc6 100ml 17:03 Drug: Phytonadione Sub-Q 10 mg Sub-Q once Route: Sub-Q; Site: abdomen; kc6 17:43 Follow up: Response: No adverse reaction kc6 17:03 Drug: Acetaminophen PO 650 mg PO once Route: PO; kc6 17:43 Follow up: Response: No adverse reaction kc6 17:03 Drug: diphenhydrAMINE IVP 12.5 mg IVP once Route: IVP; Site: right antecubital; kc6 17:43 Follow up: Response: No adverse reaction kc6 Disposition Summary: 01/23/25 18:08 Hospitalization Ordered Notes: Hospitalization Status: Inpatient Admission eliazar Provider: Bonnie Jasmine cha Location: Telemetry/MedSurg (Inpatient) eliazar Condition: Guarded(01/23/25 18:08) eliazar Problem: new(01/23/25 18:08) eliazar Symptoms: have improved(01/23/25 18:08) eliazar Bed/Room Type: Standard eliazar Room Assignment: 208(01/23/25 19:53) rv1 Diagnosis - Anemia in chronic kidney disease(01/23/25 18:08) eliazar - Anemia, unspecified(01/23/25 18:08) eliazar - Other cirrhosis of liver eliazar - Hepatic failure, unspecified without coma eliazar - Acute kidney failure, unspecified - ON CHRONIC(01/23/25 18:08) eliazar - Hyperkalemia(01/23/25 18:08) eliazar - Pleural effusion, not elsewhere classified eliazar - Encephalopathy, unspecified - HEPATIC(01/23/25 18:08) eliazar - Do not resuscitate - NO DIALYSIS, NO TRANSFER, DESIRES HOSPICE(01/23/25 18:10) eliazar Forms: - Medication Reconciliation Form eliazar - SBAR form eliazar - Leadership Thank You Letter eliazar Signatures: Dispatcher [employer] EDMS Denny Weber MD MD cha Campbell, Kaitlyn, RN RN Anabella Hatch rv1 Corrections: (The following items were deleted from the chart) 14:19 14:19 BASIC METABOLIC PANEL+C.LAB.BRZ ordered. EDMS EDMS 14:19 14:19 CBC+H.LAB.BRZ ordered. EDMS EDMS 14:19 14:19 HEPATIC FUNCTION+C.LAB.BRZ ordered. EDMS EDMS 14:19 14:19 MAGNESIUM+C.LAB.BRZ ordered. EDMS EDMS 14:19 14:19 PROBNP+C.LAB.BRZ ordered. EDMS EDMS 14:19 14:19 PROTIME (+INR)+COAG.LAB.BRZ ordered. EDMS EDMS 14:19 14:19 Troponin High Sensitivity+C.LAB.BRZ ordered. EDMS EDMS 14:19 14:19 BLOOD CULTURE*+BA.LAB.BRZ ordered. EDMS EDMS 14:19 14:19 LIPASE+C.LAB.BRZ ordered. EDMS EDMS 14:19 14:19 Urinalysis+U.LAB.BRZ ordered. EDMS EDMS 14:19 14:19 LACTATE+C.LAB.BRZ ordered. EDMS EDMS 14:19 14:19 Chest Single View+RAD.RAD.BRZ ordered. EDMS EDMS 14:19 14:19 Head Brain Wo Cont+CT.RAD.BRZ ordered. EDMS EDMS 14:19 14:19 COVID-19 Ag + Flu A+B Ag+I.LAB.BRZ ordered. EDMS EDMS 16:28 15:43 Blood Transfusion Consent ordered. eliazar kc6 17:29 16:24 to protestant leiazar eliazar 18:04 16:24 [facility] eliazar eliazar 18:04 16:24 Higher level of care eliazar eliazar 18:04 16:24 Serious eliazar eliazar 18:04 16:24 an acute exacerbation eliazar eliazar 18:04 16:24 are unchanged eliazar eliazar 18:04 16:24 Anemia in chronic kidney disease eliazar eliazar 18:04 16:24 Anemia, unspecified eliazar eliazar 18:04 16:24 Unspecified cirrhosis of liver - fatty eliazar eliazar 18:04 16:24 Encephalopathy, unspecified - HEPATIC eliazar eliazar 18:04 16:24 Abnormal coagulation profile eliazar eliazar 18:04 16:24 Acute kidney failure, unspecified - ON CHRONIC eliazar eliazar 18:04 16:24 Hyperkalemia eliazar eliazar 18:04 17:29 to protestant eliazar eliazar 18:04 17:29 Pleural effusion in other conditions classified elsewhere eliazar eliazar 18:10 18:08 Do not resuscitate eliazar eliazar 19:23 19:06 Packed RBC Leukored ordered. EDMS EDMS 19:23 19:06 ABO/RH typing ordered. EDMS EDMS 19:23 19:06 Antibody Screen ordered. EDMS EDMS 19:53 18:08 eliazar rv1
--- NOTE | 2025-01-23 16:25 | ER ---
Nurse's Notes [facility] Name: Rena Burch Age: 74 yrs Sex: Female : 1950 Arrival Date: 01/23/2025 Time: 14:01 Bed 13 Private MD: Diagnosis: Anemia in chronic kidney disease;Anemia, unspecified;Other cirrhosis of liver;Hepatic failure, unspecified without coma;Acute kidney failure, unspecified-ON CHRONIC;Hyperkalemia;Pleural effusion, not elsewhere classified;Encephalopathy, unspecified-HEPATIC;Do not resuscitate-NO DIALYSIS, NO TRANSFER, DESIRES HOSPICE Presentation: 01/23 14:13 Chief complaint: EMS states: they were toned out by family for AMS and generalized kc6 weakness. pt is s/p paracentesis on Thursday. Coronavirus screen: At this time, the client does not indicate any symptoms associated with coronavirus-19. Ebola Screen: No symptoms or risks identified at this time. Initial Sepsis Screen: Does the patient meet any 2 criteria? Altered Mental Status. Does the patient have a suspected source of infection? No. Patient's initial sepsis screen is negative. Risk Assessment: Do you want to hurt yourself or someone else? Unable to obtain. Onset of symptoms was January 23, 2025. Care prior to arrival: IV initiated. 20 GA, in the right antecubital area, Glucose check: 140. 14:13 Method Of Arrival: EMS: [facility] kc6 14:13 Acuity: CHEIKH 2 kc6 Historical: - Allergies: 14:15 aspartame; kc6 14:15 Aspirin; kc6 - PMHx: 14:15 COPD; Diabetes - IDDM; fatty liver; Hypertension; Liver failure (currently on liver [facility] transplant list); Paracentesis; Psoriatic Arthritis; - PSHx: 14:15 Unable to Obtain; kc6 - Immunization history:: Adult Immunizations unknown. - Infectious Disease History:: Denies. - Social history:: Smoking status: unknown. Screenin:15 [facility] ED Fall Risk Assessment (Adult) History of falling in the last 3 months, kc6 including since admission No falls in past 3 months (0 pts) Confusion or Disorientation Yes (5 pts) Intoxicated or Sedated No (0 pts) Impaired Gait Yes (1 pt) Mobility Assist Device Used Yes (1 pt) Altered Elimination No (0 pt) Score/Fall Risk Level 3 or more points = High Risk Oriented to surroundings, Maintained a safe environment, Educated pt \\T\\ family on fall prevention, incl call for assistance when getting out of bed, Assessed \\T\\ reinforced patient's understanding of fall precautions. Abuse screen: Denies threats or abuse. Denies injuries from another. Nutritional screening: No deficits noted. Tuberculosis screening: No symptoms or risk factors identified. Assessment: 14:15 General: Appears in no apparent distress. uncomfortable, well groomed, well developed, kc6 Behavior is calm, cooperative, appropriate for age. Pain: Complains of pain in buttocks and abdomen. Neuro: Level of Consciousness is awake, alert, obeys commands, confused, Oriented to person, time. Cardiovascular: Capillary refill < 3 seconds. Respiratory: Airway is patent Trachea midline Respiratory effort is even, unlabored, Respiratory pattern is regular, symmetrical. GI: Abdomen is round noted to have ascites, Bowel sounds present X 4 quads. : No signs and/or symptoms were reported regarding the genitourinary system. EENT: No signs and/or symptoms were reported regarding the EENT system. Derm: No signs and/or symptoms reported regarding the dermatologic system. Skin is fragile, is thin, with poor turgor Skin is dry, Skin is jaundiced, pale, Skin temperature is warm Decubitus located on sacrum approximately 2.6 cm to 7.5 cm is stage I has erythematous edges is draining none noted malodorous. Musculoskeletal: No signs and/or symptoms reported regarding the musculoskeletal system. Circulation, motion, and sensation intact. Range of motion: intact in all extremities. 15:15 Reassessment: Patient appears in no apparent distress at this time. No changes from kc6 previously documented assessment. Patient and/or family updated on plan of care and expected duration. Pain level reassessed. 16:15 Reassessment: Patient appears in no apparent distress at this time. No changes from kc6 previously documented assessment. Patient and/or family updated on plan of care and expected duration. Pain level reassessed. 17:15 Reassessment: Patient appears in no apparent distress at this time. No changes from kc6 previously documented assessment. Patient and/or family updated on plan of care and expected duration. Pain level reassessed. 18:12 Reassessment: Patient appears in no apparent distress at this time. No changes from kc6 previously documented assessment. Patient and/or family updated on plan of care and expected duration. Pain level reassessed. 18:30 Reassessment: please see blood transfusion record for further vitals. kc6 19:05 Reassessment: Patient and/or family updated on plan of care and expected duration. Pain br2 level reassessed. Patient is alert, oriented x 3, equal unlabored respirations, skin warm/dry/pink. Patient states feeling better. Patient states symptoms have improved. Reassessment: PRBC INFUSING PT TOLERATING WELL. Pain: Denies pain. Neuro: Rodriguez Agitation-Sedation Scale (RASS): 0 - Alert and Calm Level of Consciousness is awake, alert, obeys commands, confused, Oriented to person. 20:05 Reassessment: Patient and/or family updated on plan of care and expected duration. Pain br2 level reassessed. Patient is alert, oriented x 3, equal unlabored respirations, skin warm/dry/pink. DAUGHTER AT BEDSIDE. PT RESTING WITH NO COMPLAINTS AT THIS TIME. 20:20 Derm: Decubitus located on right RIGHT BUTTOCKS APPROX 1CM IN DIAMETER STAGE 2, NO br2 DRAINAGE. 20:20 Reassessment: No changes from previously documented assessment. SEE TRANFUSION SHEET br2 FOR VITALS SIGNS. Vital Signs: 14:13 BP 126 / 55; Pulse 51; Resp 18 S; Temp 97.7(O); Pulse Ox 100% on R/A; Weight 81.65 kg kc6 (R); Height 5 ft. 5 in. (R); 15:16 BP 125 / 41; Pulse 49; Resp 19 S; Pulse Ox 96% on R/A; kc6 16:00 BP 119 / 36; Pulse 50; Resp 18 S; Pulse Ox 95% on R/A; kc6 16:30 BP 119 / 42; kc6 17:38 BP 121 / 48; Pulse 53; Resp 18 S; Pulse Ox 96% on R/A; kc6 18:12 BP 120 / 43; Pulse 51; Resp 19 S; Pulse Ox 100% on R/A; kc6 14:13 Body Mass Index 29.95 (81.65 kg, 165.1 cm) kc6 Geo Coma Score: 16:02 Eye Response: spontaneous(4). Motor Response: obeys commands(6). Verbal Response: eliazar oriented(5). Total: 15. ED Course: 14:13 Patient arrived in ED. kc6 14:14 Denny Weber MD is Attending Physician. eliazar 14:15 Triage completed. kc6 14:15 Arm band placed on. kc6 14:15 Patient has correct armband on for positive identification. Placed in gown. Bed in low kc6 position. Call light in reach. Side rails up X2. windows server architect on. Pulse ox on. NIBP on. Door closed. Noise minimized. Lights dimmed. Warm blanket given. Pillow given. Verbal reassurance given. 14:15 One-on-one care X 120 minutes. kc6 14:15 Maintain EMS IV. Dressing intact. Good blood return noted. Site clean \\T\\ dry. Gauge \\T\\ miley 6 site: 20G RAC. Flushed with 10 mL NS. Patient maintains SpO2 saturation greater than 95% on room air. 14:25 Nilda Manley RN is Primary Nurse. kc6 14:38 CT Head Brain wo Cont In Process Unspecified. EDMS 14:58 XRAY Chest (1 view) In Process Unspecified. EDMS 15:36 Notified ED physician of a critical lab result(s). lactic of 3.3. ap3 15:57 Straight cath inserted, using sterile technique, 16 Fr. Specimen obtained. Returned kc6 cloudy urine. Patient tolerated well. Inserted saline lock: 20 gauge in right wrist, using aseptic technique. Blood collected. Flushed with 10 mL NS. 16:47 Provided Education on: Blood Transfusion. kc6 16:51 CT Chest Abdomen Pelvis W/O Contrast In Process Unspecified. EDMS 16:57 have been attempting to transfer pt to [facility] since 1409, have called the bd transfer center numerous times with no answer, will attempt again. 16:59 attempting to contact [facility] transfer center. bd 17:[address] [facility], spoke with Onofre Pruitt, was informed that it may take a bd while to get the pt a room, informed Dr Weber, he said "ok". 18:03 pt denied at [facility] due to no capacity at this time, per onofre craig. bd 18:05 Bonnie Jasmine MD is Hospitalizing Provider. eliazar 19:00 Report given to Nicky Queen RN. kc6 20:20 Cleaned of incontinence. Linen changed. br2 22:03 No provider procedures requiring assistance completed. Patient admitted, IV remains in br2 place. Administered Medications: 15:56 Drug: NS 0.9% IV (30 ml/kg) 30 ml/kg IV at bolus once; Sepsis Protocol; to be given as kc6 a bolus over 90 minutes Route: IV; Rate: bolus; Site: right antecubital; 18:12 Follow up: Response: No adverse reaction; IV Status: Completed infusion; IV Intake: kc6 2449.5ml 15:56 Drug: Rocephin IV 1 grams IV at per protocol once; Given slow IV push per pharmacy kc6 instructions Route: IV; Rate: per protocol; Site: right antecubital; 17:44 Follow up: Response: No adverse reaction; IV Status: Completed infusion; IV Intake: [id number] 15:56 Drug: Pantoprazole IVP 40 mg IVP once Route: IVP; Site: right hand; kc6 17:44 Follow up: Response: No adverse reaction kc6 16:28 Drug: Kayexalate PO 45 grams PO once Route: PO; kc6 17:44 Follow up: Response: No adverse reaction kc6 16:28 Drug: Lactulose PO 30 grams 45 ml PO once Volume: 45 ml; Route: PO; kc6 17:44 Follow up: Response: No adverse reaction kc6 16:28 Drug: Meropenem IV 1 grams IV at per protocol once; (mix in NS 100 mL) Route: IV; Rate: kc6 per protocol; Site: right antecubital; 17:43 Follow up: Response: No adverse reaction; IV Status: Completed infusion; IV Intake: kc6 100ml 17:03 Drug: Phytonadione Sub-Q 10 mg Sub-Q once Route: Sub-Q; Site: abdomen; kc6 17:43 Follow up: Response: No adverse reaction kc6 17:03 Drug: Acetaminophen PO 650 mg PO once Route: PO; kc6 17:43 Follow up: Response: No adverse reaction kc6 17:03 Drug: diphenhydrAMINE IVP 12.5 mg IVP once Route: IVP; Site: right antecubital; kc6 17:43 Follow up: Response: No adverse reaction kc6 Intake: 17:43 IV: 100ml; Total: 100ml. kc6 17:44 IV: 50ml; Total: 150ml. kc6 18:12 IV: 2450ml; Total: 2600ml. kc6 Outcome: 16:24 ER care complete, transfer ordered by . eliazar 18:08 Decision to Hospitalize by Provider. eliazar 22:03 Patient left the ED. br2 22:03 Admitted to Med/surg accompanied by nurse, via stretcher, via wheelchair, room 208, br2 with chart, 22:03 Condition: stable 22:03 Instructed on the need for admit, Demonstrated understanding of instructions, Signatures: Dispatcher [employer] EDMS Maria Esther Nova Corey, MD MD cha Prokisch, Amanda RN RN [email or web address] Nilda Manley RN RN kc6 Nicky Queen RN RN br2 Corrections: (The following items were deleted from the chart) 14:27 14:13 BP 126 / 55; Pulse 51bpm; Resp 18bpm; Spontaneous; Pulse Ox 100% RA; Temp 97.7F kc6 Oral; Height 5 ft. 5 in. Reported; kc6 14:33 14:13 BP 126 / 55; Pulse 51bpm; Resp 18bpm; Spontaneous; Pulse Ox 100% RA; Temp 97.7F kc6 Oral; 80 kg; Height 5 ft. 5 in. Reported; BMI: 29.3; kc6
[2025-01-23 16:30] LABS: Anisocytosis 1+; Blood Morphology Comment NOTED (NOT SEEN); Hypochromasia 1+; Ovalocytes 1+; Platelet Estimate DECR; Poikilocytosis 1+; Polychromasia SLIGHT; White Blood Cell Scan OK (OK)
[2025-01-23] MEDS ORDERED: VITAMIN K (ADULT) 10 MG/ML ONE (16:44)
[2025-01-23] MEDS ORDERED: ACETAMINOPHEN 325 MG TABLET ONE (16:51)
[2025-01-23] MEDS ORDERED: DIPHENHYDRAMINE 50 MG/ML VIAL ONE (16:51)
--- NOTE | 2025-01-23 16:58 | RAD REPORT ---
EXAM: CT CHEST, ABDOMEN AND PELVIS WITHOUT CONTRAST CLINICAL INDICATION: Chest and abdominal pain TECHNIQUE: CT chest, abdomen and pelvis was performed, without IV contrast, as per department protoco l. Axial, sagittal and coronal reconstructions were obtained. One or more of the following dose reduction techniques were used: Automated exposure control, adjustment of the mA and/or kV according to the patient size, and/or iterative reconstruction. Unless otherwise specified, incidental findings do not require dedicated imaging follow-up. The lack of IV and oral contrast limits evaluation of the mediastinum, loni, vessels, organs and aaron l. COMPARISON: December [address] FINDINGS: Lungs are clear. No mediastinal or hilar lymphadenopathy seen. Small to moderate bilateral pleural effusions. No pericardial effusion. Cirrhotic small liver. Borderline splenomegaly. Varices The pancreas, adrenals kidneys and bladder appear grossly normal There is no evidence of diverticulitis Large amount of ascites. Diffuse edema tissues IMPRESSION: Large amount ascites [id number] bilateral effusions Anasarca
--- NOTE | 2025-01-23 18:25 | P.HP ---
Certification for Inpatient Patient admitted to: Inpatient With expected LOS: <2 Midnights <Bre Tineo - Last Filed: 01/23/25 19:52> Patient History Date of Service: 01/23/25 Reason for admission: Symptomatic anemia, confusion History of Present Illness: 74-year-old female with a past medical history COPD; Diabetes - IDDM; fatty liver; Hypertension; Liver failure (currently on liver transplant list); Paracentesis; Psoriatic Arthritis; presents to the emergency room with generalized weakness. She reports symptoms worse over the last couple days. She reports she resides at home with daughter, on bedrest, she denies rectal bleeding, hematemesis. Fever, recent infection, nausea vomiting diarrhea. Plan to admit admit for symptomatic anemia, lactic acidosis, end-stage liver disease, hyperkalemia, acute renal failure, acute cystitis with hematuria, DNR status ER evaluation 3 BP 126 / 55; Pulse 51; Resp 18 S; Temp 97.7(O); Pulse Ox 100% on R/A; Weight 81.65 kg; Height 5 ft. 5 in. Rate is 51 beats/min. Rhythm is regular. QRS Delevan is Normal. AR interval is normal. QRS, interval is normal. QT interval is normal. No Q waves. T waves are Normal. impression: Sinus bradycardia and No evidence of ischemia. Lactic 3.3. Potassium 5.7, anemia 4.7, hematocrit 14.2, platelets 86, UA positive [id number], leukoesterase, hematuria, - Past Medical/Surgical History Diabetic: Yes -: CirrhosisNASH -: Diabetes mellitus type 2 -: Hypertension -: Anemia -: Psoriatic arthritis -: COPD -: CKD IV (Dr. Pearce/ Dr. Nicholson) -: LIZETTE Mastectomy and reconstruction -: Hysterectomy -: Right Ankle Sx -: Right Wrist Sx Psychosocial/ Personal History: Lives at home with family, daughter - Family History Father -: Heart disease Mother -: Diabetes, Cancer Notes: Breast - Social History Alcohol use: No CD- Drugs: No Caffeine use: Yes <Bre Tineo - Last Filed: 01/23/25 19:52> Date of Service: 01/23/25 <Ru Nguyen - Last Filed: 01/28/25 02:48> Allergies aspartame Allergy (Verified 01/02/25 08:20) Nausea/Vomiting nutra sweet Allergy (Uncoded 01/02/25 08:20) Nausea/Vomiting Home Medications: Atorvastatin Calcium 10 mg PO BEDTIME 07/01/21 Omeprazole [Prilosec] 40 mg PO DAILY 07/01/21 Ensure Max Protein 330 ml PO BID can 01/15/24 Ferrous Sulfate [Ferrous Sulfate*] 325 mg PO DAILY tab 01/15/24 Iron/FA/Vit B-Com W/C [Hemocyte Plus*] 1 tab PO DAILY WITH BREAKFAST #30 tab 01/15/24 Rifaximin [Xifaxan] 550 mg PO BID #60 01/15/24 Spironolactone [Aldactone*] 25 mg PO DAILY #30 tab 01/15/24 guaiFENesin [Robitussin 100MG/5ML*] 10 ml PO QIDP PRN #20 01/15/24 Lactulose [Cephulac*] 30 ml PO BID 06/04/24 Silver Sulfadiazine Crm [Silvadene*] 1 appl TOP BID 30 Days #1 tube 06/09/24 Amlodipine [Norvasc*] 10 mg PO DAILY #30 tab 01/08/25 Doxycycline Hyclate 100 mg PO BID #12 cap 01/08/25 Propranolol [Inderal*] 20 mg PO BID #60 tab 01/08/25 Review of Systems 10-point ROS is otherwise unremarkable <Bre Tineo - Last Filed: 01/23/25 19:52> Physical Examination - Physical Exam General: Alert, In no apparent distress, Oriented x2 HEENT: Atraumatic, Normocephalic Neck: Supple Respiratory: Clear to auscultation bilaterally, Normal air movement Cardiovascular: Normal pulses, Regular rate/rhythm, Normal S1 S2 Gastrointestinal: Normal bowel sounds, Other (mild abdominal tenderness,) Musculoskeletal: No clubbing, No swelling Integumentary: No breakdown, No significant lesion Neurological: Normal speech, Normal tone, Other (Oriented x 2) - Studies Laboratory Data (last 24 hrs) 01/23/25 01/23/25 01/23/25 15:00 15:00 15:00 WBC 5.50 Hgb 4.7 L* Hct 14.2 L Plt Count 86 L PT 24.5 H INR 2.23 Sodium 139 Potassium 5.7 H BUN 122 H Creatinine 6.79 H Glucose 125 H Magnesium 2.7 H Total Bilirubin 2.2 H AST 30 ALT 16 Alkaline Phosphatase 76 Lipase 61 <Bre Tineo - Last Filed: 01/23/25 19:52> - Studies Microbiology Data (last 24 hrs): 01/23/25 15:45 Clean Catch Urine Clarkson Count - Final >100,000 CFU/ML. 01/23/25 15:45 Clean Catch Urine - Final Enterococcus Faecium <Ru Nguyen - Last Filed: 01/28/25 02:48> Assessment and Plan - Problems (Diagnosis) (1) Severe anemia Current Visit: No Status: Acute (2) Acute cystitis with hematuria Current Visit: Yes Status: Acute (3) End stage liver disease Current Visit: Yes Status: Acute (4) Acute renal failure Current Visit: No Status: Acute (5) Lactic acidosis Current Visit: Yes Status: Acute (6) Thrombocytopenia Current Visit: No Status: Acute (7) Hyperkalemia Current Visit: Yes Status: Acute (8) Sinus bradycardia Current Visit: Yes Status: Acute - Plan Assessment admit to [facility] telemetry GI conusult for severe anemia Transfuse 2 units PBRC, Trend HH, platelets IVF, IV ABX trend cultures, kidney function, trend electrolytes, lactic replace elec prn Code, DNR Diet cardiac DVT SCD Disposition, resides at home, on bedrest as baseline Discharge Plan: Home - Advance Directives Does patient have a Living Will: No Does patient have a Durable POA for Healthcare: No - Code Status/Comfort Care Code Status: Do Not Attempt Resuscitat Critical Care: No Time Spent Managing Pts Care (In Minutes): 55 <Bre Tineo - Last Filed: 01/23/25 19:52> Date of Service: 01/23/25 Chart has been reviewed. Events of the last 24 hours have been noted. Case discussed with ANTHONY. I performed a substantial part of the MDM during this patient's care today. I personally made or approved the documented management plan and acknowledge its risk of complications. I agree with the findings and documentation provided in the ANTHONY's notes <Ru Nguyen - Last Filed: 01/28/25 02:48>
[2025-01-23] MEDS ORDERED: ACETAMINOPHEN 500 MG TAB PO PRN (18:59)
[2025-01-23] MEDS ORDERED: ONDANSETRON 4 MG/2 ML VIAL IV PRN (18:59)
[2025-01-23] MEDS: NA CHLORIDE 0.9% 1,000 ML IV SCH ×2 (19:00)
[2025-01-23] MEDS: DIPHENHYDRAMINE 50 MG/ML VIAL IV ONE (19:02)
[2025-01-23] MEDS: FUROSEMIDE 20 MG/ 2ML VIAL IV ONE (20:00)
[2025-01-23] MEDS: ACETAMINOPHEN 500 MG TAB PO ONE (20:00)
[2025-01-23] MEDS ORDERED: NA CHLORIDE 0.9% 250 ML IV SCH (20:00)
[2025-01-23] MEDS: Rifaximin 550 MG Tab PO SCH (21:00)
[2025-01-23] MEDS: LACTULOSE 20 GM/30 ML UCUP PO SCH (21:00)
[2025-01-23] MEDS: ATORVASTATIN 10 MG TAB PO SCH (21:00)
[2025-01-23 23:11] VITALS: BMI 29.9
[2025-01-24] MEDS: FUROSEMIDE 20 MG/ 2ML VIAL IV ONE (01:06)
[2025-01-24 04:01] LABS: Hematocrit 20.1 % (36.0-45.0)
[2025-01-24 06:23] LABS: Absolute Eosinophils 0.1 K/uL (0-0.5); Absolute Lymphocytes (CBC) 0.5 K/uL (0.7-4.9); Absolute Monocytes 0.6 K/uL (0.1-1.3); Absolute Neutrophil 3.3 K/uL (1.8-8.0); Basophils % 0.3 % (0-1.3); Eosinophils % 2.9 % (0-4.4); Hematocrit 19.6 % (36.0-45.0); Hemoglobin 6.7 g/dL (12.0-15.0); Lymphocytes % 10.1 % (15.3-44.8); MCH 30.8 pg (27.0-35.0); MCHC 34.2 g/dL (32.0-36.0); MCV 90.2 fL (80-100); MPV 8.3 fL (7.6-11.3); Monocytes % 12.8 % (3.3-12.3); Neutrophils % 73.9 % (41.7-73.7); Nucleated Red Blood Cells % 0.2 % (0-0); Platelets 59 thou/uL (152-406); RBC Red Blood Cell Count 2.17 M/uL (3.86-4.86); Red Cell Distribution Width 19.3 % (12.1-15.2)
[2025-01-24 06:41] LABS: Albumin/Globulin Ratio 1.3 (1.1-1.8); Bilirubin Total 4.3 mg/dL (0.2-1.0); Globulin 2.3 g/dL (2.3-3.5); Magnesium 2.6 mg/dL (1.6-2.4); Protein, Total 5.3 g/dL (6.4-8.2)
[2025-01-24] MEDS: ARFORMOTEROL TARTRATE 15 MCG/2 ML VIAL.NEB NEB SCH (08:33)
[2025-01-24] MEDS ORDERED: CEFTRIAXONE 1000 MG/VIAL ONE (08:38)
[2025-01-24 08:39] LABS: Anisocytosis 1+; Blood Morphology Comment NOTED (NOT SEEN); Hypochromasia 1+; Ovalocytes 1+; Platelet Estimate DECR; Teardrop Cell FEW; White Blood Cell Scan OK (OK)
[2025-01-24] MEDS ORDERED: AMLODIPINE 10 MG TAB PO SCH (09:00)
[2025-01-24] MEDS ORDERED: FUROSEMIDE 40 MG/4 ML VIAL IV SCH (09:00)
[2025-01-24] MEDS ORDERED: NA CHLORIDE 0.9% 250 ML IV SCH (10:00)
[2025-01-24] MEDS: predniSONE 20 MG TAB PO SCH (10:55)
[2025-01-24] MEDS: CEFTRIAXONE 1,000 MG in NA CHLORIDE 0.9% 50 ML IVPB SCH (10:55)
--- NOTE | 2025-01-24 10:59 | EKG ---
Test Date: 2025-01-23 Test Time: 14:43:30 Supervisor Knitting: CAMERON MEASUREMENT RESULTS: Intervals: Rate: 51 MI: 182 QRSD: 102 QT: 474 QTc: 436 [place]: P: 33 MI: 182 QRS: 67 T: 79 INTERPRETIVE STATEMENTS: Sinus bradycardia with sinus arrhythmia Otherwise normal ECG Compared to ECG 01/03/2025 10:14:45 Junctional rhythm no longer present ST (T wave) deviation no longer present Possible ischemia no longer present Electronically Signed On 01-24-25 10:56:38 CDT by Renato Mendez
--- NOTE | 2025-01-24 11:53 | RAD REPORT ---
EXAMINATION: US RETROPERITONEUM CLINICAL INDICATION: Renal failure TECHNIQUE: Real-time ultrasonography of the retroperitoneum was performed. COMPARISON: No prior exam. FINDINGS: RIGHT KIDNEY: Right renal length measurement: 10.7 cm. Normal in echogenicity and size. No calculus, solid mass or hydronephrosis. LEFT KIDNEY: Left renal length measurement: 9.7 cm. Normal in echogenicity and size. No calculus, elzbieta id mass or hydronephrosis. URINARY BLADDER: Decompressed limiting evaluation ADDITIONAL FINDINGS: None. IMPRESSION: No acute or significant abnormalities.
[2025-01-24] MEDS ORDERED: CEFTRIAXONE 1,000 MG in NA CHLORIDE 0.9% 50 ML IVPB SCH (15:00)
--- NOTE | 2025-01-24 15:05 | P.PN ---
Date of Service: 01/24/25 Subjective: Patient resting in bed. She denies fevers and chills. We discussed getting another unit of blood today. discussed with daughters at length at bedside patient has a long history of cirrhosis and now end-stage renal disease. Daughters would like to pursue hospice. Patient's mentation has been declining over the course of the last several years. Review of Systems 10-point ROS is otherwise unremarkable Physical Examination - Physical Exam General: Alert, In no apparent distress, Oriented x2 HEENT: Atraumatic, Normocephalic Neck: Supple Respiratory: Clear to auscultation bilaterally, Normal air movement Cardiovascular: Normal pulses, Regular rate/rhythm, Normal S1 S2 Gastrointestinal: Normal bowel sounds, Other (mild abdominal tenderness,) Musculoskeletal: No clubbing, No swelling Integumentary: No breakdown, No significant lesion Neurological: Normal speech, Normal tone, Other (Oriented x 2) - Studies Laboratory Data (last 24 hrs) 01/23/25 01/23/25 01/23/25 15:00 15:00 15:00 WBC 5.50 Hgb 4.7 L* Hct 14.2 L Plt Count 86 L PT 24.5 H INR 2.23 Sodium 139 Potassium 5.7 H BUN 122 H Creatinine 6.79 H Glucose 125 H Magnesium 2.7 H Total Bilirubin 2.2 H AST 30 ALT 16 Alkaline Phosphatase 76 Lipase 61 Assessment and Plan - Problems (Diagnosis) (1) Severe anemia Current Visit: No Status: Acute (2) Acute cystitis with hematuria Current Visit: Yes Status: Acute (3) End stage liver disease Current Visit: Yes Status: Acute (4) Acute renal failure Current Visit: No Status: Acute (5) Lactic acidosis Current Visit: Yes Status: Acute (6) Thrombocytopenia Current Visit: No Status: Acute (7) Hyperkalemia Current Visit: Yes Status: Acute (8) Sinus bradycardia Current Visit: Yes Status: Acute - Plan Assessment Continue Rocephin, await cultures Awaiting GI recommendation Give 1 more unit PRBC Lactic acid trending down Status post 2 units PRBC Trend HH, platelets Hyperkalemia resolved replace elec prn Hospice consult Code, DNR Diet cardiac DVT SCD Disposition, resides at home, on bedrest as baseline Discharge Plan: Home - Advance Directives Does patient have a Living Will: No Does patient have a Durable POA for Healthcare: No - Code Status/Comfort Care Code Status: Do Not Attempt Resuscitat Critical Care: No Time Spent Managing Pts Care (In Minutes): 40
[2025-01-24] MEDS: MIDODRINE HCL 5 MG TABLET PO SCH (15:45)
[2025-01-24] MEDS: NA CHLORIDE 0.9% 1,000 ML IV SCH (17:37)
[2025-01-24 17:41] LABS: Hematocrit 23.1 % (36.0-45.0); Hemoglobin 7.8 g/dL (12.0-15.0)
--- NOTE | 2025-01-24 18:14 | CON ---
Date of Consultation: 01/24/2025 Reason For Consultation: Elevated BUN and creatinine and fluid management. History Of Present Illness: This is a 74-year-old female, well known to me from the previous admission with significant past medical history of hypertension, COPD, liver cirrhosis secondary to LEE, hyperlipidemia. The patient came to the hospital for symptomatic anemia. The patient had recurrent admission with the patient denied any fever, any chills. Patient had decreased intake. Past Medical History: Includes: 1. Liver cirrhosis secondary to LEE. 2. Hypertension. 3. Hyperlipidemia. 4. COPD. 5. Anemia. 6. Chronic kidney disease secondary to cardiorenal, baseline creatinine 2.6 with GFR of 35. Past Surgical History: Includes: 1. Recurrent paracentesis. 2. Hysterectomy. 3. Right ankle surgery. Family History: Positive for CAD and hypertension. Social History: Denied smoking. Denied drinking. Denied drugs abuse. Allergies: NO KNOWN DRUGS ALLERGY EXCEPT sulfa Current Medications: The patient on, it includes pantoprazole. Home Medications: Includes atorvastatin, omeprazole, Tylenol metoprolol, spironolactone, and Inderal. Current Medications: In the hospital, it includes: 1. Ceftriaxone. 2. Cephalexin. 3. Atorvastatin. 4. Tylenol. 5. Lasix. 6. Prednisone. 7. Normal saline IV fluid. Review of Systems: Head and Neck: No red eye. No ear pain. GI: No nausea. No vomiting. : No polyuria. No dysuria. No hematuria. BRAKES INSPECTOR: No vaginal discharge. Respiratory: No shortness of breath. Cardiovascular: No chest pain. Endocrine: No polydipsia. Skin: No rash. Neuro: Has neuropathy. Musculoskeletal: Generalized fatigue. Physical Examination: Vital Signs: Blood pressure 107/45, pulse of 57, afebrile. Chest: Clear to auscultation. Heart: S1, S2. Regular. Abdomen: Soft, nontender. Extremities: Trace edema. Neurological: Alert and oriented x3. No focality. No tremor. Laboratory Data: For the patient, WBC 4.5, hemoglobin 6.7, sodium 140, potassium 4, bicarb 17, BUN 124, creatinine 6.9, GFR of 6, calcium of 8.6. Assessment And Plan: 1. Acute kidney injury secondary to cardiorenal. No uremic symptoms we will go ahead and treat the patient as hepatorenal, but if kidney function did not improve, the patient may need to be initiated on renal replacement therapy. Family and the patient on the agreement. We will follow up improvement for the patient. In the meantime, obstructive uropathy has been ruled out with renal ultrasound. I am going to hold on the diuresis. Start the patient on midodrine and octreotide. Continue fluid expansion with albumin and we will follow up after transfusion. 2. Hypertension, currently blood pressure on the lower side. Hold all blood pressure medications especially diuresis and RADHA inhibitor or ARB. 3. Symptomatic anemia, mostly secondary to GI bleed secondary to portal hypertension, as by Primary. 4. Cirrhosis, as by Primary. Thank you, Dr. Lopez, for allowing us to participate in the care of your patient. time spent examining the patient [id number] reviewing data lab and the radiology placing order discussing the case with the patient discussing the case with the steamboat pilot including hospitalist and nursing staff more than 75-minute TATE Voice ID: [id number] Report ID: [id number] JOLANTA
[2025-01-24] MEDS: ALBUMIN HUMAN 25% 100 ML IV SCH (20:45)
[2025-01-24] MEDS: OCTREOTIDE ACETATE 100 MCG/ML IV SCH (20:52)
[2025-01-25 05:00] LABS: Absolute Lymphocytes (CBC) 0.2 K/uL (0.7-4.9); Absolute Monocytes 0.1 K/uL (0.1-1.3); Basophils % 0.4 % (0-1.3); Hematocrit 23.4 % (36.0-45.0); Lymphocytes % 5.7 % (15.3-44.8); MCH 30.9 pg (27.0-35.0); MCHC 34.3 g/dL (32.0-36.0); MCV 90.1 fL (80-100); MPV 8.6 fL (7.6-11.3); Monocytes % 2.2 % (3.3-12.3); Nucleated Red Blood Cells % 0.3 % (0-0); Platelets 49 thou/uL (152-406); Red Cell Distribution Width 17.9 % (12.1-15.2)
[2025-01-25 05:04] LABS: Neutrophils % 91.7 % (41.7-73.7)
[2025-01-25 05:49] LABS: Albumin 3.3 g/dL (3.4-5.0); Albumin/Globulin Ratio 1.4 (1.1-1.8); Anion Gap 17.8 mEq/L (5.0-15.0); Bilirubin Total 4.3 mg/dL (0.2-1.0); Globulin 2.3 g/dL (2.3-3.5); Magnesium 2.4 mg/dL (1.6-2.4); Phosphorus 8.7 mg/dL (2.5-4.9); Potassium 4.8 mEq/L (3.5-5.1); Protein, Total 5.6 g/dL (6.4-8.2)
--- NOTE | 2025-01-25 08:02 | P.CNS ---
Date of Consult: 01/25/25 Reason for Consult: Shortness of breath severe anemia Chief Complaint: Symptomatic anemia, confusion History of Present Illness: Patient is 74 years of age very poor historian difficult medical problems including COPD on liver transplant list recent admissions for decompensated liver failure with ascites does not recall any events denies any bleeding was found to be severely anemic has been complaining of dyspnea on exertion not use any bronchodilators apparently has a history of COPD denies any fever or chills with end-stage renal failure hepatorenal syndrome Allergies aspartame Allergy (Verified 01/02/25 08:20) Nausea/Vomiting nutra sweet Allergy (Uncoded 01/02/25 08:20) Nausea/Vomiting Home Medications: Atorvastatin Calcium 10 mg PO BEDTIME 07/01/21 Omeprazole [Prilosec] 40 mg PO DAILY 07/01/21 Ensure Max Protein 330 ml PO BID can 01/15/24 Ferrous Sulfate [Ferrous Sulfate*] 325 mg PO DAILY tab 01/15/24 Iron/FA/Vit B-Com W/C [Hemocyte Plus*] 1 tab PO DAILY WITH BREAKFAST #30 tab 01/15/24 Rifaximin [Xifaxan] 550 mg PO BID #60 01/15/24 Spironolactone [Aldactone*] 25 mg PO DAILY #30 tab 01/15/24 guaiFENesin [Robitussin 100MG/5ML*] 10 ml PO QIDP PRN #20 01/15/24 Lactulose [Cephulac*] 30 ml PO BID 06/04/24 Silver Sulfadiazine Crm [Silvadene*] 1 appl TOP BID 30 Days #1 tube 06/09/24 Amlodipine [Norvasc*] 10 mg PO DAILY #30 tab 01/08/25 Doxycycline Hyclate 100 mg PO BID #12 cap 01/08/25 Propranolol [Inderal*] 20 mg PO BID #60 tab 01/08/25 - Past Medical/Surgical History Diabetic: Yes -: CirrhosisNASH -: Diabetes mellitus type 2 -: Hypertension -: Anemia -: Psoriatic arthritis -: COPD -: CKD IV (Dr. Pearce/ Dr. Nicholson) -: LIZETTE Mastectomy and reconstruction -: Hysterectomy -: Right Ankle Sx -: Right Wrist Sx Psychosocial/ Personal History: Lives at home with family, daughter - Family History Father Medical History: Heart disease Mother Medical History: Diabetes, Cancer Notes: Breast - Social History Smoking Status: Unknown if ever smoked Alcohol use: No CD- Drugs: No Caffeine use: Yes Review of Systems General: Weakness Respiratory: Shortness of Breath Cardiovascular: Edema Physical Examination Temp Pulse Resp BP Pulse Ox 98.3 F 62 16 127/62 96 01/25/25 04:00 01/25/25 04:00 01/25/25 04:00 01/25/25 04:00 01/25/25 04:00 General: Alert, Delirious Neck: Supple Respiratory: Clear to auscultation bilaterally Cardiovascular: Regular rate/rhythm, Edema Gastrointestinal: Normal bowel sounds, Soft and benign, Non-distended Musculoskeletal: No clubbing, Swelling - Problems (1) Severe anemia Current Visit: No Status: Acute Plan: Patient is 74 years of age admitted with progressive dyspnea severe anemia history of GI bleeding patient has hepatorenal syndrome worsening renal function ascites evidence of possible urinary tract infection signs oxygenation satisfactory CT scan shows bilateral pleural effusions and ascites patient was transfused prognosis is poor by mail rider renal ultrasound is negative new with bronchodilators trial of IV fluids did not improve the patient's renal function DC prednisone
--- NOTE | 2025-01-25 08:08 | P.CNS ---
Date of Consult: 01/25/25 Chief Complaint: Symptomatic anemia, confusion Allergies aspartame Allergy (Verified 01/02/25 08:20) Nausea/Vomiting nutra sweet Allergy (Uncoded 01/02/25 08:20) Nausea/Vomiting Home Medications: Atorvastatin Calcium 10 mg PO BEDTIME 07/01/21 Omeprazole [Prilosec] 40 mg PO DAILY 07/01/21 Ensure Max Protein 330 ml PO BID can 01/15/24 Ferrous Sulfate [Ferrous Sulfate*] 325 mg PO DAILY tab 01/15/24 Iron/FA/Vit B-Com W/C [Hemocyte Plus*] 1 tab PO DAILY WITH BREAKFAST #30 tab 01/15/24 Rifaximin [Xifaxan] 550 mg PO BID #60 01/15/24 Spironolactone [Aldactone*] 25 mg PO DAILY #30 tab 01/15/24 guaiFENesin [Robitussin 100MG/5ML*] 10 ml PO QIDP PRN #20 01/15/24 Lactulose [Cephulac*] 30 ml PO BID 06/04/24 Silver Sulfadiazine Crm [Silvadene*] 1 appl TOP BID 30 Days #1 tube 06/09/24 Amlodipine [Norvasc*] 10 mg PO DAILY #30 tab 01/08/25 Doxycycline Hyclate 100 mg PO BID #12 cap 01/08/25 Propranolol [Inderal*] 20 mg PO BID #60 tab 01/08/25 - Past Medical/Surgical History Diabetic: Yes -: CirrhosisNASH -: Diabetes mellitus type 2 -: Hypertension -: Anemia -: Psoriatic arthritis -: COPD -: CKD IV (Dr. Pearce/ Dr. Nicholson) -: LIZETTE Mastectomy and reconstruction -: Hysterectomy -: Right Ankle Sx -: Right Wrist Sx Psychosocial/ Personal History: Lives at home with family, daughter - Family History Father Medical History: Heart disease Mother Medical History: Diabetes, Cancer Notes: Breast - Social History Smoking Status: Unknown if ever smoked Alcohol use: No CD- Drugs: No Caffeine use: Yes Physical Examination Temp Pulse Resp BP Pulse Ox 98.3 F 62 16 127/62 96 01/25/25 04:00 01/25/25 04:00 01/25/25 04:00 01/25/25 04:00 01/25/25 04:00
--- NOTE | 2025-01-25 11:44 | PN ---
Date of Progress Note: 01/25/2025 Subjective: The patient was admitted to the hospital with hepatorenal syndrome. The patient started on fluid expansion yesterday. Kidney function continue to decline. I had long discussion with the patient's family/daughter regarding her care and apparently family elected to go to hospice. No dialysis. Physical Examination: Vital Signs: Blood pressure 137/63, pulse of 57, afebrile. Chest: Clear to auscultation. Heart: S1, S2. Regular. Systolic murmur. Abdomen: Soft, ascites. Extremities: Plus edema. Neurologic: Alert, confused. No focality. Laboratory Data: WBC 3.3, hemoglobin of 8. Sodium 139, potassium 4.8, bicarb 15, BUN 124, creatinine 7.3, calcium 8.4, phosphorus 8.7, albumin 3.3. Current Medications: The patient is on include: 1. Ceftriaxone. 2. Tylenol 3. Midodrine. 4. Atorvastatin. 5. Lasix. Assessment And Plan: 1. Acute kidney injury secondary to hepatorenal, non-recovering, nonoliguric. I had long discussion with the patient's daughter, decided no dialysis. She is going to proceed to hospice. We will go ahead and sign off and we will follow up as needed if conditions change. 2. Acidosis. The patient will be on hospice. 3. Encephalopathy secondary to uremia as above. 4. Hepatic failure, cirrhosis with ascites, p.r.n. paracentesis. We will follow up with primary. time spent examining the patient [id number] reviewing data lab and the radiology placing order discussing the case with the patient discussing the case with the call center team leader including hospitalist and nursing staff more than 55-minute TATE Voice ID: [id number] Report ID: [id number] JOLANTA
--- NOTE | 2025-01-25 16:21 | P.PN ---
Date of Service: 01/25/25 Subjective: Resting in bed. I discussed with daughter at bedside possible outcomes for her mother situation. No overnight events. She denies fevers and chills Review of Systems 10-point ROS is otherwise unremarkable Physical Examination - Physical Exam General: Alert, In no apparent distress, Oriented x2 HEENT: Atraumatic, Normocephalic Neck: Supple Respiratory: Clear to auscultation bilaterally, Normal air movement Cardiovascular: Normal pulses, Regular rate/rhythm, Normal S1 S2 Gastrointestinal: Normal bowel sounds, Other (mild abdominal tenderness,) Musculoskeletal: No clubbing, No swelling Integumentary: No breakdown, No significant lesion Neurological: Normal speech, Normal tone, Other (Oriented x 2) - Studies Laboratory Data (last 24 hrs) 01/23/25 01/23/25 01/23/25 15:00 15:00 15:00 WBC 5.50 Hgb 4.7 L* Hct 14.2 L Plt Count 86 L PT 24.5 H INR 2.23 Sodium 139 Potassium 5.7 H BUN 122 H Creatinine 6.79 H Glucose 125 H Magnesium 2.7 H Total Bilirubin 2.2 H AST 30 ALT 16 Alkaline Phosphatase 76 Lipase 61 Assessment and Plan - Problems (Diagnosis) (1) Severe anemia Current Visit: No Status: Acute (2) Acute cystitis with hematuria Current Visit: Yes Status: Acute (3) End stage liver disease Current Visit: Yes Status: Acute (4) Acute renal failure Current Visit: No Status: Acute (5) Lactic acidosis Current Visit: Yes Status: Acute (6) Thrombocytopenia Current Visit: No Status: Acute (7) Hyperkalemia Current Visit: Yes Status: Acute (8) Sinus bradycardia Current Visit: Yes Status: Acute - Plan Assessment Continue Rocephin, urine culture with greater than 100 K mixed manjula Continue octreotide, albumin Give 1 more unit PRBC Lactic acid trending down Status post 3 units PRBC Trend HH, platelets Hyperkalemia resolved replace elec prn Appreciate nephrology help Hospice consult Code, DNR Diet cardiac DVT SCD Disposition, resides at home, on bedrest as baseline Discharge Plan: Home - Advance Directives Does patient have a Living Will: No Does patient have a Durable POA for Healthcare: No - Code Status/Comfort Care Code Status: Do Not Attempt Resuscitat Critical Care: No Time Spent Managing Pts Care (In Minutes): 40
--- NOTE | 2025-01-25 20:32 | P.PN ---
Subjective Date of Service: 01/25/25 Chief Complaint: Symptomatic anemia, confusion AMS, hepatic enceph, ascites, hepatorenal Subjective: Improving (Feels better, less AMS. Rocephin d/c'd. +UTI.) Review of Systems 10-point ROS is otherwise unremarkable General: Weakness Physical Examination - Vital Signs Temperature: 97.7 F Blood Pressure: 142/64 Pulse: 63 Respirations: 16 Pulse Ox (%): 96 - Physical Exam General: Alert, In no apparent distress, Oriented x2, Cooperative HEENT: Atraumatic, Normocephalic, PERRLA, EOMI Neck: Supple Respiratory: Normal air movement Cardiovascular: Normal pulses Gastrointestinal: Soft and benign, No tenderness, No rebound, No guarding, Ascites (& obese) Neurological: Normal speech Assessment And Plan - Current Problems (Diagnosis) (1) Altered mental status Current Visit: Yes Status: Acute (2) Hepatic encephalopathy Current Visit: Yes Status: Acute (3) Hepatorenal syndrome Current Visit: Yes Status: Acute (4) Liver cirrhosis secondary to LEE Current Visit: Yes Status: Acute (5) Decompensated liver disease Current Visit: No Status: Acute (6) Severe anemia Current Visit: No Status: Acute (7) Thrombocytopenia Current Visit: No Status: Acute (8) UTI (urinary tract infection) Current Visit: No Status: Acute - Plan REC: 1) d/c IVF NS 2) IV antibiotics 3) monitor labs
[2025-01-26 04:54] LABS: Absolute Lymphocytes (CBC) 0.2 K/uL (0.7-4.9); Absolute Monocytes 0.5 K/uL (0.1-1.3); Absolute Neutrophil 4.5 K/uL (1.8-8.0); Basophils % 0.2 % (0-1.3); Eosinophils % 0.3 % (0-4.4); Hematocrit 22.6 % (36.0-45.0); Hemoglobin 7.7 g/dL (12.0-15.0); Lymphocytes % 4.5 % (15.3-44.8); MCH 31.4 pg (27.0-35.0); MCHC 34.1 g/dL (32.0-36.0); MCV 92.1 fL (80-100); MPV 8.6 fL (7.6-11.3); Monocytes % 10.1 % (3.3-12.3); Neutrophils % 84.9 % (41.7-73.7); Nucleated Red Blood Cells % 0.2 % (0-0); RBC Red Blood Cell Count 2.45 M/uL (3.86-4.86); Red Cell Distribution Width 17.6 % (12.1-15.2)
[2025-01-26 04:57] LABS: Platelets 47 thou/uL (152-406)
[2025-01-26 05:21] LABS: Albumin 3.8 g/dL (3.4-5.0); Albumin/Globulin Ratio 1.9 (1.1-1.8); Anion Gap 16.6 mEq/L (5.0-15.0); Bilirubin Total 2.7 mg/dL (0.2-1.0); Magnesium 2.4 mg/dL (1.6-2.4); Phosphorus 8.9 mg/dL (2.5-4.9); Potassium 4.6 mEq/L (3.5-5.1); Protein, Total 5.8 g/dL (6.4-8.2)
[2025-01-26] MEDS: CEFEPIME 1 GM in NA CHLORIDE 0.9% 100 ML IV SCH (08:31)
--- NOTE | 2025-01-26 08:52 | RAD REPORT ---
EXAM: URINARY BLADDER ULTRASOUND COMPARISON: 01/24/2025 and 01/20/2025 ultrasound exams CLINICAL INDICATION: [facility] MAIN decreased urine output TECHNIQUE: Multiplanar grayscale and color flow sonographic images were obtained through the pelvis for evaluation of the bladder.. FINDINGS: The bladder was not discretely visualized. At least moderate ascites with debris. Thin cor dlike septation traversing the peritoneal cavity in the lower abdomen. No suspicious pelvic masses were appreciated. IMPRESSION: No discrete visualization of the bladder which may be decompressed. No suspicious pelvic masses. At least moderate ascites with debris and septations.
--- NOTE | 2025-01-26 11:51 | PN ---
Date of Progress Note: 01/26/2025 Chief Complaint: Acute kidney injury secondary to hepatorenal syndrome. Renal function has not impr gregory and is progressively worse. The patient is asymptomatic. She denies uremic symptomatology. Th e patient had some urinary retention and had straight catheterization done. I spoke with the patient 's daughter at the bedside and they do not want to do dialysis. Review of Systems: Denies chest pain, palpitations. Physical Examination: Lungs: Clear to auscultation bilaterally. Heart: S1, S2. Abdomen: Soft. Ascites present. Extremities: Edema present. Impression And Plan: 1. Acute kidney injury secondary to acute tubular necrosis, hepatorenal syndrome, nonoliguric, althou gh urine output over last 12 hours has declined. The patient required straight catheterization for u rinary monitoring and to rule out urinary bladder retention. The patient had long discussion yesterd ay with Dr. Alexandra, and today she also mentioned she did not want to proceed with dialysis. 2. Acidosis. Monitor bicarb level. The patient currently is to be on hospice. 3. Encephalopathy. The patient is awake. Follows commands. Denies complaints. 4. Hepatic failure, cirrhosis with ascites. Paracentesis as needed. EB/MODL Voice ID: [id number] Report ID: [id number]
[2025-01-26] MEDS ORDERED: D10W 125 ML IV PRN (13:04)
[2025-01-26] MEDS ORDERED: GLUCAGON 1 MG/VIAL IM PRN (13:04)
[2025-01-26] MEDS: ENSURE CLEAR 200 ML CAN PO SCH (13:11)
--- NOTE | 2025-01-26 13:16 | P.PN ---
Date of Service: 01/26/25 Subjective: No new events. Discussed with family. May have difficulty taking care of her at home. May need skilled nursing with hospice Review of Systems 10-point ROS is otherwise unremarkable Physical Examination - Physical Exam General: Alert, In no apparent distress, Oriented x2 HEENT: Atraumatic, Normocephalic Neck: Supple Respiratory: Clear to auscultation bilaterally, Normal air movement Cardiovascular: Normal pulses, Regular rate/rhythm, Normal S1 S2 Gastrointestinal: Normal bowel sounds, Other (mild abdominal tenderness,) Musculoskeletal: No clubbing, No swelling Integumentary: No breakdown, No significant lesion Neurological: Normal speech, Normal tone, Other (Oriented x 2) - Studies Laboratory Data (last 24 hrs) 01/23/25 01/23/25 01/23/25 15:00 15:00 15:00 WBC 5.50 Hgb 4.7 L* Hct 14.2 L Plt Count 86 L PT 24.5 H INR 2.23 Sodium 139 Potassium 5.7 H BUN 122 H Creatinine 6.79 H Glucose 125 H Magnesium 2.7 H Total Bilirubin 2.2 H AST 30 ALT 16 Alkaline Phosphatase 76 Lipase 61 Assessment and Plan Hepatorenal syndrome Severe anemia Current Visit: No Status: Acute Acute cystitis with hematuria Current Visit: Yes Status: Acute End stage liver disease Current Visit: Yes Status: Acute Acute renal failure Current Visit: No Status: Acute Lactic acidosis resolved Pancytopenia Hyperkalemia resolved Sinus bradycardia Hyperglycemia - Plan Assessment Urine culture with 4+ yeast ; switch to cefepime. Yeast in urine. Start Diflucan. Urinary catheter switched out Status post albumin. Remains on octreotide Give 1 more unit PRBC Lactic acidosis resolved Status post 3 units PRBC Hemoglobin stable Hyperkalemia resolved replace elec prn Appreciate nephrology help. Family not wanting to pursue dialysis at this time Hospice/palliative care consult Moderate dose sliding scale insulin. Check blood sugars ACHS Code, DNR Diet cardiac DVT SCD Disposition, resides at home, on bedrest as baseline Discharge Plan: Home with hospice - Advance Directives Does patient have a Living Will: No Does patient have a Durable POA for Healthcare: No - Code Status/Comfort Care Code Status: Do Not Attempt Resuscitat Critical Care: No Time Spent Managing Pts Care (In Minutes): 40
[2025-01-26] MEDS: FLUCONAZOLE 200mg IVPB 200 MG/100 ML BAG IV SCH (13:38)
[2025-01-26] MEDS: INSULIN REGULAR (HUMAN) 100 UNIT/ML SQ SCH (16:30)
[2025-01-27 06:21] LABS: Albumin 3.6 g/dL (3.4-5.0); Anion Gap 16.9 mEq/L (5.0-15.0); Phosphorus 8.5 mg/dL (2.5-4.9); Potassium 4.9 mEq/L (3.5-5.1)
--- NOTE | 2025-01-27 12:35 | P.PN ---
Subjective Date of Service: 01/27/25 Chief Complaint: End-stage liver disease hepatorenal syndrome Patient denies any complaints oriented no abdominal discomfort still has lower extremity edema Review of Systems 10-point ROS is otherwise unremarkable General: Weakness Physical Examination - Vital Signs Temperature: 97.9 F Blood Pressure: 151/60 Pulse: 66 Respirations: 16 Pulse Ox (%): 97 - Physical Exam General: Alert, Oriented x3 Respiratory: Clear to auscultation bilaterally Cardiovascular: Edema Gastrointestinal: Normal bowel sounds, Soft and benign Musculoskeletal: No clubbing, No swelling - Studies Microbiology Data (last 24 hrs): 01/23/25 15:45 Clean Catch Urine Shell Count - Final >100,000 CFU/ML. 01/23/25 15:45 Clean Catch Urine - Final Enterococcus Faecium Assessment And Plan - Current Problems (Diagnosis) (1) Hepatorenal syndrome Current Visit: Yes Status: Acute Plan: Patient is 74 years of age admitted with worsening renal function hepatorenal syndrome refused dialysis awaiting hospice care decision patient is hemodynamically stable very alert responsive cooperative vital signs oxygenation stable stable for discharge back to hospice care
[2025-01-27] MEDS: ACETAMINOPHEN 325 MG TABLET PO PRN (13:13)
--- NOTE | 2025-01-27 16:01 | PN ---
Date of Progress Note: 01/27/2025 Chief Complaint: Acute kidney injury secondary to acute tubular necrosis urine output has declined. The patient had a bladder scan done and did not show urinary retention. Previously, she had straight catheterization and did not show an improvement in urine output. Review of Systems: Patient denies complaints. Physical Examination: Lungs: Clear to auscultation bilaterally. Heart: S1, S2. Abdomen: Soft. Extremities: Ascites present. Impression And Plan: 1. Acute kidney injury secondary to acute tubular necrosis. Hepatorenal syndrome. The patient devel oped oliguria. Family decided patient not to proceed with dialysis. Previously, Dr. Alexandra, her [facility] partition making machine operator, had long discussion with the patient and family about dialysis, although they de clined dialysis. They understand that uremia, which may be sequela of postponing dialysis and not do ing dialysis may cause life-threatening condition, and this may lead to . 2. Acidosis. Monitor bicarbonate continue sodium bicarb if tolerated. 3. Encephalopathy. The patient is awake, follows commands. 4. Hepatic failure, cirrhosis with ascites . EB/MODL Voice ID: [id number] Report ID: [id number]
[2025-01-27] MEDS: SODIUM BICARB 325 MG TAB PO SCH (19:50)
[2025-01-28 06:17] LABS: Albumin 3.4 g/dL (3.4-5.0); Anion Gap 17.9 mEq/L (5.0-15.0); Phosphorus 8.9 mg/dL (2.5-4.9); Potassium 4.9 mEq/L (3.5-5.1)
--- NOTE | 2025-01-28 11:42 | P.PN ---
Subjective Date of Service: 01/28/25 Chief Complaint: End-stage liver disease hepatorenal syndrome No new complaints patient is very alert responsive cooperative answering appropriately Review of Systems 10-point ROS is otherwise unremarkable Physical Examination - Vital Signs Temperature: 98.0 F Blood Pressure: 168/70 Pulse: 63 Respirations: 16 Pulse Ox (%): 94 - Physical Exam General: Alert, Oriented x3 Respiratory: Clear to auscultation bilaterally Cardiovascular: No edema, Regular rate/rhythm Gastrointestinal: Normal bowel sounds, Soft and benign - Studies Microbiology Data (last 24 hrs): 01/23/25 15:45 Clean Catch Urine [place] Count - Final >100,000 CFU/ML. 01/23/25 15:45 Clean Catch Urine - Final Enterococcus Faecium Assessment And Plan - Current Problems (Diagnosis) (1) Hepatorenal syndrome Current Visit: Yes Status: Acute Plan: Patient has end-stage hepatorenal syndrome hospice daughter patient is scheduled to be placed in hospice care facility early as by Thursday plan for comfort care only has end-stage renal disease family members refused dialysis
--- NOTE | 2025-01-28 12:41 | PN ---
Date of Progress Note: 01/28/2025 Subjective: No overnight event. Creatinine up to 8.6 with BUN 138. Again, family refused dialysis. Plan to discharge to hospice. Objective: Vital Signs: Temperature 97.8, pulse rate of 60, blood pressure 159/73. General: Awake and alert. Looks chronically ill, not in distress. Neck: Supple. No elevated JVD. Heart: Regular rate and rhythm. Normal S1, S2. Chest: Clear to auscultation without rales or wheeze. Abdomen: Soft, nontender. Extremities: Patient has a +2 edema. Laboratory Data: Sodium 136, potassium 4.9, bicarb 15, BUN 138, creatinine 8.6. Assessment And Plan: 1. End-stage renal disease, refusing dialysis and plan to discharge to hospice. Avoid NSAID and cont rast. Renal dose medication. 2. Metabolic acidosis. Continue sodium bicarbonate. 3. Edema. We will start the patient on Lasix. Low-salt diet. 4. Liver failure. Continue supportive care. 5. Anemia of chronic disease, status post PRBC. Monitor H and H. Thank you for allowing me to participate in patient care. Total time spent 55 minute including docum entation reviewing medications and placing orders. LIBRA/CASEY Voice ID: [id number] Report ID: [id number]
[2025-01-28] MEDS: FUROSEMIDE 40 MG/4 ML VIAL IV SCH (12:57)
--- NOTE | 2025-01-28 16:10 | P.CNS ---
Date of Consult: 01/28/25 Reason for Consult: Gross hematuria Chief Complaint: End-stage liver disease hepatorenal syndrome History of Present Illness: 74-year-old woman with multiple medical comorbidities presented admitted via the emergency department 01/23/2025 with generalized weakness. She lives in an apartment with her daughter and her ex-, and she describes that within the last year, she has had 3 urinary tract infections. Her symptoms are usually confusion but she denies any dysuria or prior gross hematuria. On this admission however she was found to be symptomatically anemic and had gross hematuria. She also apparently had lactic acidosis associated with end-stage liver disease, hyperkalemia, acute kidney injury and was DNR status. She has a history of diverticulitis, but she says that was in her early 40s. She denies any prior abdominal surgery but acknowledges having a hysterectomy and prior mastectomy with reconstruction. She denies any obstructive urinary symptoms but acknowledges significant daytime frequency and urgency with urge incontinence that requires her to wear 2-3 depends undergarments per day. Currently she has a pure wick catheter in place. Past medical history: LEE cirrhosis, DM 2, hypertension, psoriatic arthritis, COPD, CKD stage IV Past surgical history: Hysterectomy, right ankle and wrist surgery, bilateral mastectomy with reconstruction Social history: Denies alcohol or smoking history Family history: Denies urologic malignancy Examination: Patient alert, awake, oriented x 3 in no acute distress No dyspnea or sign of respiratory distress Comfortable and well-appearing Pure wick catheter in place draining cloudy yellow urine into suction canister at this time. Patient on cefepime hanging 01/23/2025 CT chest abdomen and pelvis without contrast impression: Large amount of ascites. Small to moderate bilateral effusions. Anasarca. 01/24/2025 renal ultrasound done presumably after a period of resuscitation: No hydronephrosis seen 01/26/2025 bladder ultrasound: Bladder decompressed 01/23/2025 01/24/2025 01/25/2025 01/26/2025 Hemoglobin 4.7 7.0/6.7 7.8/8.0 7.7 Creatinine 6.79 7.87 Platelet count 86 INR 2.23 01/23/2025 urine culture Enterococcus faecium sensitive to vancomycin and gentamicin Assessment and recommendation: 74-year-old woman with Lee cirrhosis, DM 2, hypertension, COPD, CKD stage IV, psoriatic arthritis status post hysterectomy and bilateral mastectomy with reconstruction with remote history of diverticulitis now with complicated cystitis likely causing gross hematuria, in the setting of recurrent UTIs with normal upper tract imaging but with OAB and urge incontinence requiring 2-3 depends undergarments daily. -Given her recurrent infections and now complicated infection requiring hospitalization, after a 10 to 14-day treatment course of antimicrobial for her complicated cystitis, recommend patient be discharged with a suppressive course of antimicrobial pending outpatient urologic evaluation. -Consider fosfomycin once a week or other antimicrobial based on her renal function -Follow-up as an outpatient for cystoscopic evaluation, preferably within the next month Allergies aspartame Allergy (Verified 01/02/25 08:20) Nausea/Vomiting nutra sweet Allergy (Uncoded 01/02/25 08:20) Nausea/Vomiting Home medications list reviewed: Yes Home Medications: Atorvastatin Calcium 10 mg PO BEDTIME 07/01/21 Omeprazole [Prilosec] 40 mg PO DAILY 07/01/21 Ensure Max Protein 330 ml PO BID can 01/15/24 Ferrous Sulfate [Ferrous Sulfate*] 325 mg PO DAILY tab 01/15/24 Iron/FA/Vit B-Com W/C [Hemocyte Plus*] 1 tab PO DAILY WITH BREAKFAST #30 tab 01/15/24 Rifaximin [Xifaxan] 550 mg PO BID #60 01/15/24 Spironolactone [Aldactone*] 25 mg PO DAILY #30 tab 01/15/24 guaiFENesin [Robitussin 100MG/5ML*] 10 ml PO QIDP PRN #20 01/15/24 Lactulose [Cephulac*] 30 ml PO BID 06/04/24 Silver Sulfadiazine Crm [Silvadene*] 1 appl TOP BID 30 Days #1 tube 06/09/24 Amlodipine [Norvasc*] 10 mg PO DAILY #30 tab 01/08/25 Doxycycline Hyclate 100 mg PO BID #12 cap 01/08/25 Propranolol [Inderal*] 20 mg PO BID #60 tab 01/08/25 - Past Medical/Surgical History Diabetic: Yes -: CirrhosisNASH -: Diabetes mellitus type 2 -: Hypertension -: Anemia -: Psoriatic arthritis -: COPD -: CKD IV (Dr. Pearce/ Dr. Nicholson) -: LIZETTE Mastectomy and reconstruction -: Hysterectomy -: Right Ankle Sx -: Right Wrist Sx Psychosocial/ Personal History: Lives at home with family, daughter - Family History Father Medical History: Heart disease Mother Medical History: Diabetes, Cancer Notes: Breast - Social History Smoking Status: Unknown if ever smoked Alcohol use: No CD- Drugs: No Caffeine use: Yes Physical Examination Temp Pulse Resp BP Pulse Ox 97.8 F 60 14 159/73 H 100 01/28/25 11:55 01/28/25 12:57 01/28/25 11:55 01/28/25 12:57 01/28/25 11:55 - Problems (1) Complicated UTI (urinary tract infection) Current Visit: Yes Status: Acute (2) Recurrent UTI Current Visit: Yes Status: Acute (3) OAB (overactive bladder) Current Visit: Yes Status: Acute (4) Urge incontinence Current Visit: Yes Status: Acute (5) Acute cystitis with hematuria Current Visit: Yes Status: Acute Conclusions/Impression: see A&P in HPI Critical Care: No Time Spent Managing Pts care (In Minutes): 35
[2025-01-29 06:05] LABS: Albumin 3.2 g/dL (3.4-5.0); Phosphorus 8.5 mg/dL (2.5-4.9)
--- NOTE | 2025-01-29 10:32 | P.PN ---
Subjective Date of Service: 01/29/25 Chief Complaint: End-stage liver disease hepatorenal syndrome No new complaints patient is alert oriented responsive denies any urinary tract symptoms Review of Systems Unremarkable Physical Examination - Vital Signs Temperature: 97.9 F Blood Pressure: 168/71 Pulse: 65 Respirations: 18 Pulse Ox (%): 98 - Physical Exam General: Alert, Oriented x3 Respiratory: Clear to auscultation bilaterally Cardiovascular: No edema, Regular rate/rhythm - Studies Microbiology Data (last 24 hrs): 01/23/25 15:19 Blood - Blood Aerobic Blood Culture - Final No growth in 5 days. 01/23/25 15:19 Blood - Blood Anaerobic Blood Culture - Final Assessment And Plan - Current Problems (Diagnosis) (1) Hepatorenal syndrome Current Visit: Yes Status: Acute Plan: Patient has end-stage renal disease hepatorenal syndrome scheduled to be transferred to hospice care tomorrow has any symptoms of urinary tract infection avoid all antibiotics high-level resistance of Enterococcus patient has normal white count blood pressure is elevated add some amlodipine prognosis poor patient refused dialysis
[2025-01-29] MEDS: AMLODIPINE 5 MG TAB PO SCH (11:59)
[2025-01-30 06:37] LABS: Absolute Eosinophils 0.2 K/uL (0-0.5); Absolute Lymphocytes (CBC) 0.2 K/uL (0.7-4.9); Absolute Monocytes 0.7 K/uL (0.1-1.3); Absolute Neutrophil 5.2 K/uL (1.8-8.0); Basophils % 0.1 % (0-1.3); Eosinophils % 3.7 % (0-4.4); Hematocrit 25.6 % (36.0-45.0); Hemoglobin 8.7 g/dL (12.0-15.0); Lymphocytes % 3.7 % (15.3-44.8); MCH 31.1 pg (27.0-35.0); MCHC 33.8 g/dL (32.0-36.0); MCV 91.8 fL (80-100); MPV 8.4 fL (7.6-11.3); Monocytes % 11.1 % (3.3-12.3); Neutrophils % 81.4 % (41.7-73.7); Nucleated Red Blood Cells % 0.1 % (0-0); Platelets 35 thou/uL (152-406); RBC Red Blood Cell Count 2.79 M/uL (3.86-4.86); Red Cell Distribution Width 17.9 % (12.1-15.2)
[2025-01-30 10:44] VITALS: O2SAT 98
[2025-01-30] MEDS: SODIUM ZIRCONIUM CYCLOSILICATE 10 GM/PKT PO SCH (12:33)
[2025-01-30 16:10] VITALS: BP 177/54; TEMP 98.1
[2025-01-30] MEDS ORDERED: SODIUM BICARB 325 MG TAB PO SCH (21:00)
--- NOTE | 2025-01-30 22:17 | PN ---
Date of Progress Note: 01/30/2025 Chief Complaint: Acute on advanced chronic kidney disease. End-stage renal disease. Subjective: The patient receives dialysis. The patient is lethargic and has finally decided to proc eed with hospice. The patient denies fever, chills. She denies metallic taste in her mouth. Denies nausea or vomiting. Physical Examination: Lungs: Clear to auscultation bilaterally. Heart: S1, S2. Abdomen: Soft, benign. Extremities: 2+ edema. Impression And Plan: 1. End-stage renal disease. The patient is refusing dialysis. The patient will be discharged to [facility], according to the primary team plan. 2. Metabolic acidosis. Continue sodium bicarbonate. 3. Borderline hyperkalemia. Lokelma was started. 4. Liver failure. Management per Primary team. 5. Anemia of chronic disease, status post packed red blood cell. Monitor hemoglobin and hematocrit. EB/MODL Voice ID: [id number] Report ID: [id number]
--- NOTE | 2025-01-31 12:38 | CON ---
Date of Consultation: 01/24/2025 Reason For Consultation: Cirrhosis with hepatic encephalopathy, ascites, and anemia. History Of Present Illness: This patient is a 74-year-old white female with history of end-stage charlene er disease secondary to nonalcoholic steatohepatitis with ascites, hepatic encephalopathy, hepatorena l syndrome, diabetes, hypertension, anemia that has been chronic according to daughter, psoriatic art hritis, COPD, chronic kidney disease stage 4, bilateral mastectomy reconstruction, hysterectomy, ankl e surgery, and right wrist surgery. The patient presented to the hospital with symptomatic anemia an d confusion, now the patient found to have urinary tract infection which has probably exacerbated her hepatic encephalopathy situation. The patient has been on lactulose and Xifaxan with some improveme nt according to daughter who is at bedside currently. Daughter says that anemia is chronic with hist ory of end-stage renal disease and cirrhosis, which is followed by Dr. Ventura in [place], [place] a t the [facility]. The patient has a history of cirrhosis secondary to nonalcoholic steatohepatitis, ascites with parace nteses q.week for the past 4 years, last on Thursday, ascites, occasional hepatic encephalopathy, and h epatorenal syndrome. Also with history of diabetes, hypertension, anemia which is chronic, psoriatic arthritis, COPD, chronic kidney disease, bilateral mastectomy and reconstruction, hysterectomy, righ t ankle surgery, right wrist surgery as well. Social History: She is , 1 daughter who is at bedside now. No tobacco. No alcohol. Family History: Father of myocardial infarction, also had a heavy history of tobacco and alcoho l use. Mother of cervical cancer. Also had history of diabetes as per chart. Medications: At home include atorvastatin, Prilosec, Ensure, iron supplements, Hemocyte Plus, Xifaxa n, Aldactone, Robitussin, , Silvadene, Norvasc, doxycycline, Inderal. Allergies: TO ASPARTAME AND NUTRASWEET. Review of Systems: The patient has confusion, anemia, edema in lower extremities, but denies any melena, hematochezia, h ematemesis, coffee-ground emesis, hematuria, dysuria, polydipsia, muscle aches, joint aches, and back aches. No seizure, syncope, chest pain, shortness of breath. She does have some decreased mood. No anxiety. Physical Examination: Vital Signs: The patient is 5 foot, 580 pounds, BMI of 30 kg/m2 with temperature of 98.1 degrees Fah renheit, pulse of 57, respirations 16, blood pressure 107/45, O2 saturation 97% to 99% on room air. General: She is an obese female, lying in bed, in no acute distress. Able to answer most questions appropriately. Some improvement according to the daughter since admission, on lactulose and Xifaxan therapy. HEENT: Normocephalic, atraumatic. Anicteric. Pupils equal, round, and reactive to light. Extraocu lar movements intact. Oropharynx clear. Neck: Supple. No masses. Respirations: Clear to auscultation bilaterally on anterior exam only. Cardiac: Regular rate and rhythm. Gastrointestinal: Positive bowel sounds. Soft, obese, dullness in the flanks, ascites, mild positiv e fluid wave. Extremities: No clubbing, cyanosis. Positive lower extremity edema. Neuro: Alert, oriented times at least 2. Able to move all extremities well. Data: The patient has white count of 4.5, hemoglobin 6.7, hematocrit 19.6, MCV of 90.2, platelet cou nt of 59, polys of 74%, lymphocytes 10%, monocytes 13%, eosinophils 3%, basophils 0.3%. PT of 24.5, INR of 2.23. The patient has sodium 142, potassium 4.0, chloride 112, bicarb 19, BUN of 123, creatin ine of 6.67, glucose 128, lactic acid high at 2.8, calcium 8.4, magnesium 2.6, total bilirubin 4.3, A ST of 31, ALT of 417, alkaline phosphatase 677. Ammonia is less than 15. Total protein 5.3, albumin 3.0, lipase 61. Beta-natriuretic peptide elevated at 4493. Ammonia level less than 15 yesterday. UA shows 1+ blood, 500 leukocyte esterase, negative nitrite, 21 to 50 rbc's, greater than 50 white bl ood cells, many white cells, no squamous epithelial cells, so clean catch, many yeast, and 2+ protein . Serology negative for influenza, COVID. Impression: 1. Anemia, chronic as per daughter with history of end-stage liver disease, cirrhosis. Will need tra nsfusion if hemoglobin below 7, currently 6.7. 2. Autoimmune status, hepatic encephalopathy, probably exacerbated by urinary tract infection the pat ient currently has. 3. Ascites. Has ultrasound-guided paracentesis every week for the past 4 years, last on Thursday, yana abebe followed in [place] at the liver [facility] with Dr. Ventura. 4. Cirrhosis secondary to non-alcoholic steatohepatitis, once again followed by Dr. Nabeel Ventura in [place], [place]. Recommendations: 1. Continue lactulose and Xifaxan. 2. Agree with transfusion of packed RBCs at this time. Hemoglobin low at 6.7. 3. Continue serial H and H and transfuse p.r.n. 4. Hepatology followup in [place], [place]. We will follow along. CARLIE Voice ID: [id number] Report ID: [id number]
--- NOTE | 2025-02-08 00:32 | P.DS ---
Discharge Date: 01/30/25 Disposition: HOSPICE-HOME Discharge Condition: FAIR Reason for Admission: End-stage liver disease hepatorenal syndrome Brief History of Present Illness: 74-year-old female with a past medical history COPD; Diabetes - IDDM; fatty liver; Hypertension; Liver failure (currently on liver transplant list); Paracentesis; Psoriatic Arthritis; presents to the emergency room with generalized weakness. She reports symptoms worse over the last couple days. She reports she resides at home with daughter, on bedrest, she denies rectal bleeding, hematemesis. Fever, recent infection, nausea vomiting diarrhea. Plan to admit admit for symptomatic anemia, lactic acidosis, end-stage liver disease, hyperkalemia, acute renal failure, acute cystitis with hematuria, DNR status ER evaluation 3 BP 126 / 55; Pulse 51; Resp 18 S; Temp 97.7(O); Pulse Ox 100% on R/A; Weight 81.65 kg; Height 5 ft. 5 in. Rate is 51 beats/min. Rhythm is regular. QRS [place] is Normal. SD interval is normal. QRS, interval is normal. QT interval is normal. No Q waves. T waves are Normal. impression: Sinus bradycardia and No evidence of ischemia. Lactic 3.3. Potassium 5.7, anemia 4.7, hematocrit 14.2, platelets 86, UA positive [id number], leukoesterase, hematuria, Hospital Course: Patient was evaluated and patient is clinically found to have end-stage liver disease; patient decided to proceed with hospice care. Patient was set up with [facility] hospice and at this time patient is stable for discharge. Vital Signs/Physical Exam: Temp Pulse Resp BP Pulse Ox 98.1 F 71 16 177/54 H 100 01/30/25 16:00 01/30/25 16:00 01/30/25 16:00 01/30/25 16:00 01/30/25 16:00 General: Alert, In no apparent distress Laboratory Data at Discharge: WBC 6.30 thou/uL (4.3-10.9) 01/30/25 05:59 Hgb 8.7 g/dL (12.0-15.0) L 01/30/25 05:59 Hct 25.6 % (36.0-45.0) L 01/30/25 05:59 Plt Count 35 thou/uL (152-406) L 01/30/25 05:59 PT 24.5 SECONDS (10-13.0) H 01/23/25 15:00 INR 2.23 01/23/25 15:00 Sodium 137 mEq/L (136-145) 01/30/25 05:59 Potassium 5.0 mEq/L (3.5-5.1) 01/30/25 05:59 BUN 152 mg/dL (7-18) H 01/30/25 05:59 Creatinine 8.81 mg/dL (0.55-1.02) H 01/30/25 05:59 Glucose 188 mg/dL (74-106) H 01/30/25 05:59 Phosphorus 8.5 mg/dL (2.5-4.9) H 01/29/25 04:36 Magnesium 2.4 mg/dL (1.6-2.4) 01/26/25 04:40 Total Bilirubin 2.7 mg/dL (0.2-1.0) H 01/26/25 04:40 AST 19 U/L (15-37) 01/26/25 04:40 ALT 17 U/L (13-56) 01/26/25 04:40 Alkaline Phosphatase 63 U/L (45-117) 01/26/25 04:40 Lipase 61 U/L (13-75) 01/23/25 15:00 Home Medications: Atorvastatin Calcium 10 mg PO BEDTIME 07/01/21 Omeprazole [Prilosec] 40 mg PO DAILY 07/01/21 Ensure Max Protein 330 ml PO BID can 01/15/24 Ferrous Sulfate [Ferrous Sulfate*] 325 mg PO DAILY tab 01/15/24 Iron/FA/Vit B-Com W/C [Hemocyte Plus*] 1 tab PO DAILY WITH BREAKFAST #30 tab 01/15/24 Rifaximin [Xifaxan] 550 mg PO BID #60 01/15/24 Spironolactone [Aldactone*] 25 mg PO DAILY #30 tab 01/15/24 guaiFENesin [Robitussin 100MG/5ML*] 10 ml PO QIDP PRN #20 01/15/24 Lactulose [Cephulac*] 30 ml PO BID 06/04/24 Silver Sulfadiazine Crm [Silvadene*] 1 appl TOP BID 30 Days #1 tube 06/09/24 Amlodipine [Norvasc*] 10 mg PO DAILY #30 tab 01/08/25 Doxycycline Hyclate 100 mg PO BID #12 cap 01/08/25 Propranolol [Inderal*] 20 mg PO BID #60 tab 01/08/25 Physician Discharge Instructions: [facility] [place] Call Wendy Lara RN at [phone] for questions or concerns after discharge. Expect a call within 1-2 business days of discharge. Alternate:Alvina Dodge RN at [phone] -DC IV and DC home with hospice care -Please call Dr. Nguyen at [phone] if any questions regarding hospital stay -Please call nursing station at [phone] if any nursing or medication questions -Return to the emergency room if symptoms worsen Diet: Regular Activity: Fall precautions Followup: Rachael Faye [Primary Care Provider] - If your Symptoms Worsen Time spent managing pt's care (in minutes): 35
== END 2025-01-30 19:00 | disposition hospice, home (50) | DRG 441 ==
LOC: ER 14:01 → ERHOLD 18:56 → 2ND 20:06
PROVIDERS: ADMIT Hospitalist; ATTEND Hospitalist
PROC: 30233N1 Transfusion of Nonautologous Red Blood Cells into Peripheral Vein, Percutaneous Approach (ICD-10-PCS; principal; 2025-01-23)
PROC: 0T9B70Z Drainage of Bladder with Drainage Device, Via Natural or Artificial Opening (ICD-10-PCS; 2025-01-25)
DX: K76.82 Hepatic encephalopathy (principal); G92.9 Unspecified toxic encephalopathy; N17.0 Acute kidney failure with tubular necrosis; K76.7 Hepatorenal syndrome; N18.6 End stage renal disease; I12.0 Hypertensive chronic kidney disease with stage 5 chronic kidney disease or end stage renal disease; N30.01 Acute cystitis with hematuria; E87.20 Acidosis, unspecified; R18.8 Other ascites; D61.818 Other pancytopenia; K72.10 Chronic hepatic failure without coma; K74.60 Unspecified cirrhosis of liver; E11.22 Type 2 diabetes mellitus with diabetic chronic kidney disease; D63.1 Anemia in chronic kidney disease; E87.5 Hyperkalemia; J44.9 Chronic obstructive pulmonary disease, unspecified; E66.9 Obesity, unspecified; K75.81 Nonalcoholic steatohepatitis (NASH); R00.1 Bradycardia, unspecified; N32.81 Overactive bladder; Z66 Do not resuscitate; Z88.6 Allergy status to analgesic agent; Z51.5 Encounter for palliative care; Z11.52 Encounter for screening for COVID-19; Z68.30 Body mass index [BMI] 30.0-30.9, adult; Z76.82 Awaiting organ transplant status; Z90.13 Acquired absence of bilateral breasts and nipples; Z90.710 Acquired absence of both cervix and uterus; Z79.899 Other long term (current) drug therapy
CPT/HCPCS: 36415; 49083; 51702; 70450; 71045; 71250; 74176; 76770; 76857; 80048; 80053; 80069; 80076; 81001; 82140; 82947; 83605; 83690; 83735; 83880; 84157; 84484; 85014; 85018; 85025; 85610; 86850; 86900; 86901; 86920; 87040; 87070; 87077; 87086; 87088; 87186; 87428; 89050; 93005; 94640; 94760; 96365; 96366; 96372; 99291; 99292; J0692; J0696; J1200; J1450; J1815; J1940; J2185; J2354; J2470; J3430; J7030; J7040; J7050; J7512; J7605; P9016; P9047